=== PATIENT | male | born 1935 | race Caucasian/White ===

== ENCOUNTER 2017-11-18 15:32 | Inpatient (IN) | payer OTHER ==
[~2017-11-18] VITALS: Ht 182.9 cm; Wt 84.9 kg
[~2017-11-18 15:32] MED LIST: ADVIN25/60 INH; ASPEC81 PO; BCTROWC; CMBIN INH; CZR50 PO; DIGO0.122 PO; FRS/40 PO; FSM70 PO; GLC/500 PO; MAGN400T6 PO; METO50TA8 PO; MULT-506 PO; PLV75 PO; POTA-335 PO; RANI150T85 PO; SIMV40TA2 PO
[2017-11-18] MEDS ORDERED: METHYLPREDNISOLONE 125 MG VIAL IV STA (15:50)
--- NOTE | 2017-11-18 15:57 | EMERGENCY ROOM VISIT NOTE ---
History Report prepared by Linda: Juanita Sesay Under the Supervision of: Dr. Moses Coronado M.D. 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 He was recommended to come into the ED today by his PCP. The patient notes he wears oxygen at night. He currently has inhalers but was not using them until he started noticing the wheezing. He is accompanied by his and daughter. His states he has a cough and a fever of 102 last night. He denies nausea, SOB, or having a heart attack or stroke. His notes he had a heart bypass surgery. The patient is currently taking digoxin and Lasix and Plavix. 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 A total of ten systems were reviewed and were otherwise negative. 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 (5) HTN (hypertension) (6) Type II diabetes mellitus Surgical Problems: (1) Status post implantation of automatic cardioverter/defibrillator (AICD) Family History Lung disease Social History Smoking Status: Former Smoker Alcohol Use: none Marital Status: Current/Historical Medications Scheduled Aspirin (Aspir-81), 1 TAB PO DAILY Clopidogrel Bisulfate (Plavix), 75 MG PO DAILY Digoxin (Digoxin), 1 TAB PO 4XWK Digoxin (Digoxin), 2 TABS PO 3XWK Fluticasone Prop/Salmeterol (Advair Diskus 250/50 60 Dose), 1 PUFF INH BID Furosemide (Lasix), 80 MG PO 3XWK Furosemide (Lasix), 40 MG PO 4XWK Glimepiride (Glimepiride), 1 TAB PO DAILY Home O2 Therapy (Oxygen), 2 LITERS NA PRN Losartan Potassium (Cozaar), 100 MG PO DAILY Magnesium Oxide (Magnesium Oxide), 1 CAP PO DAILY Metformin HCl (Metformin HCl), 1 TAB PO BIDM Metoprolol Succ (Toprol Xl) (Toprol-Xl), 50 MG PO DAILY Multiple Vitamin (Multivitamin), 1 TAB PO DAILY Vucvljgq-Uddpvwroy-Ej Otic (Cortisporin Otic), 4 DROPS OT TID Potassium Chloride Microencaps (Potassium Chloride Er), 1 TAB PO DAILY Ranitidine Hcl (Zantac), 150 MG PO BID Simvastatin (Zocor), 40 MG PO QPM Scheduled PRN Albuterol Hfa (Ventolin Hfa), 2 PUFFS INH Q6H PRN for Wheezing Allergies Coded Allergies: FELECIA Inhibitors (Verified Allergy, Unknown, ? - TOLERATES LOSARTAN AT HOME , 11/18/17) Sulfa Antibiotics (Verified Allergy, Unknown, ., 11/18/17) Pseudoephedrine (Verified Adverse Reaction, Intermediate, TEMP ELEV, ) Prednisone (Unverified Adverse Reaction, Unknown, BLISTERS IN THROAT, 11/18) Physical Exam Vital Signs Date Time Temp Pulse Resp B/P (MAP) Pulse Ox O2 Delivery O2 Flow Rate FiO2 11/18/17 19:31 74 24 136/46 92 Nasal Cannula 3.0 11/18/17 18:09 94 Nasal Cannula 3.0 11/18/17 18:09 88 Room Air 11/18/17 17:31 144/48 11/18/17 17:30 75 23 11/18/17 17:01 130/51 11/18/17 17:00 70 22 11/18/17 16:30 70 22 141/54 98 Nebulizer 11/18/17 16:25 78 16 90 Room Air 11/18/17 16:23 70 11/18/17 16:14 70 22 131/65 92 Room Air 11/18/17 16:05 92 Room Air 11/18/17 16:05 92 Room Air 11/18/17 15:58 92 Room Air 11/18/17 15:37 37.0 74 24 118/68 93 Room Air Physical Exam GENERAL: Awake, alert, fatigued -appearing, in no distress HENT: Normocephalic, atraumatic. Oropharynx unremarkable. Dry mucus membranes. EYES: Normal conjunctiva. Sclera non-icteric. NECK: Supple. No nuchal rigidity. FROM. No JVD. RESPIRATORY: Diminished breath sounds at the bases with diffuse wheezes and rhonchi, no accessory muscle use CARDIAC: Regular rate, normal rhythm. Extremities warm and well perfused. Pulses equal. ABDOMEN: Soft, non-distended. No tenderness to palpation. No rebound or guarding. No masses. RECTAL: Deferred. MUSCULOSKELETAL: Chest examination reveals no tenderness. The back is symmetrical on inspection without obvious abnormality. There is no CVA tenderness to palpation. No joint edema. LOWER EXTREMITIES: Calves are equal size bilaterally and non-tender. No edema. No discoloration. No lower extremity edema/ NEURO: Normal sensorium. No sensory or motor deficits noted. SKIN: No rash or jaundice noted. Medical Decision & Procedures ER Provider Diagnostic Interpretation: Radiology results as stated below per my review and radiologist interpretation: CHEST ONE VIEW PORTABLE CLINICAL HISTORY: Evaluate Fever/Sepsis COMPARISON STUDY: Chest radiograph February 18, 2010. FINDINGS: A left subclavian biventricular pacer is in place. There are median sternotomy wires. There is moderate cardiomegaly. There is no evidence for pulmonary edema. No pneumothorax or pleural effusion is noted. There is no consolidation to suggest pneumonia. IMPRESSION: 1. Moderate cardiomegaly. 2. No acute cardiopulmonary findings. Electronically signed by: Keith Hopper M.D. 11/18/2017 4:43 PM Dictated Date/Time: 11/18/2017 4:42 PM Laboratory Results 11/18/17 16:05 Red Blood Count 4.25, Mean Corpuscular Volume 96.0, Mean Corpuscular Hemoglobin 32.9, Mean Corpuscular Hemoglobin Concent 34.3, Mean Platelet Volume 9.8, Neutrophils (%) (Auto) 70.1, Lymphocytes (%) (Auto) 14.6, Monocytes (%) (Auto) 13.8, Eosinophils (%) (Auto) 1.1, Basophils (%) (Auto) 0.2, Neutrophils # (Auto ) 3.93, Lymphocytes # (Auto) 0.82, Monocytes # (Auto) 0.77, Eosinophils # (Auto ) 0.06, Basophils # (Auto) 0.01 11/18/17 16:05 Test 11/18/17 16:04 11/18/17 16:05 11/18/17 16:14 Venous Blood pH 7.44 (7.36-7.41) Venous Blood Partial Pressure CO2 45 mmHg (38.0-50.0) Venous Blood Partial Pressure O2 35 mmHg Venous Blood HCO3 30 mmol/L Venous Blood Oxygen Saturation 65.5 % Venous Blood Base Excess 4.9 mEq/L White Blood Count 5.60 K/uL (4.8-10.8) Red Blood Count 4.25 M/uL (4.7-6.1) Hemoglobin 14.0 g/dL (14.0-18.0) Hematocrit 40.8 % (42-52) Mean Corpuscular Volume 96.0 fL (80-100) Mean Corpuscular Hemoglobin 32.9 pg (25-34) Mean Corpuscular Hemoglobin Concent 34.3 g/dl (32-36) Platelet Count 186 K/uL (130-400) Mean Platelet Volume 9.8 fL (7.4-10.4) Neutrophils (%) (Auto) 70.1 % Lymphocytes (%) (Auto) 14.6 % Monocytes (%) (Auto) 13.8 % Eosinophils (%) (Auto) 1.1 % Basophils (%) (Auto) 0.2 % Neutrophils # (Auto) 3.93 K/uL (1.4-6.5) Lymphocytes # (Auto) 0.82 K/uL (1.2-3.4) Monocytes # (Auto) 0.77 K/uL (0.11-0.59) Eosinophils # (Auto) 0.06 K/uL (0-0.5) Basophils # (Auto) 0.01 K/uL (0-0.2) RDW Standard Deviation 48.4 fL (36.4-46.3) RDW Coefficient of Variation 13.9 % (11.5-14.5) Immature Granulocyte % (Auto) 0.2 % Immature Granulocyte # (Auto) 0.01 K/uL (0.00-0.02) Prothrombin Time 11.1 SECONDS (9.0-12.0) Prothromb Time International Ratio 1.1 (0.9-1.1) Activated Partial Thromboplast Time 29.2 SECONDS (21.0-31.0) Partial Thromboplastin Ratio 1.1 Anion Gap 13.0 mmol/L (3-11) Est Creatinine Clear Calc Drug Dose 45.6 ml/min Estimated GFR () 50.4 Estimated GFR (Non- 43.5 BUN/Creatinine Ratio 18.1 (10-20) Calcium Level 9.4 mg/dl (8.5-10.1) Total Bilirubin 1.2 mg/dl (0.2-1) Direct Bilirubin 0.3 mg/dl (0-0.2) Aspartate Amino Transf (AST/SGOT) 22 U/L (15-37) Alanine Aminotransferase (ALT/SGPT) 20 U/L (12-78) Alkaline Phosphatase 53 U/L (45-117) Troponin I 0.017 ng/ml (0-0.045) Pro-B-Type Natriuretic Peptide 2163 pg/ml (0-1800) Total Protein 8.9 gm/dl (6.4-8.2) Albumin 3.4 gm/dl (3.4-5.0) Lipase 72 U/L (73-393) Digoxin Level 1.0 ng/ml (0.8-2.0) Influenza Type A (RT-PCR) Neg for Influ A (NEG) Influenza Type A Antigen Neg for Influ A (NEG) Influenza Type B Antigen Neg for Influ B (NEG) Influenza Type B (RT-PCR) Neg for Influ B (NEG) Laboratory results reviewed by me Medications Administered Medications (Trade) Dose Ordered Sig/Silverio Route Start Time Stop Time Status Last Admin Dose Admin Albuterol/ Ipratropium (Duoneb) 12 ml ONE ONCE INH 11/18/17 16:00 11/18/17 16:01 DC 11/18/17 16:24 12 ML Methylprednisolone Sodium Succinate (Solu-Medrol IV) 125 mg NOW STAT IV 11/18/17 15:50 11/18/17 15:54 DC 18 16:17 125 MG Azithromycin (Zithromax Tab) 500 mg NOW ONCE PO 11/18/17 19:00 11/18/17 19:01 DC 11/18/17 19:32 500 MG ECG Per My Interpretation Indication: SOB/dyspnea Rate (beats per minute): 72 Rhythm: other (V-paced) Findings: no acute ischemic change, no ectopy ED Course 1540: The patient was evaluated in room A11. A complete history and physical exam was performed. 1826: I reevaluated the patient at this time. He was resting comfortably. 1900: I discussed the patient with Tiffanie Joseph - She will evaluate the patient for further treatment. Medical Decision I reviewed the patient's past medical history, medications, and the nursing notes as described above. Differential diagnosis: Etiologies such as infections, reactive airway disease, pneumonia, pneumothorax , COPD, CHF, cardiac ischemia, pulmonary embolism, musculoskeletal, gastrointestinal, as well as others were entertained. The patient is 82-year-old gentleman with a past medical history of COPD, CHF, CAD on Plavix, Lasix, digoxin who presents emergency Department with worsening cough congestion and wheezing over the past several days seen by his PCP and referred to the ED for evaluation per hpi. Arrival the patient is in no acute distress, afebrile with stable vital signs. Chest diffuse rhonchi and wheezes with saturation at 93% on room air. No increased work of breathing. EKG with ventricular paced rhythm. She was given Solu-Medrol without for continuous neb with improvement in air movement however with subsequent desaturation to 88% on room air. While this may have possibly been due to V/Q mismatch from the patient's albuterol he continued to have a new oxygen requirement thus it is reasonable to admit the patient for COPD exacerbation. Patient was given azithromycin given his sputum production. Case was discussed with Tiffanie Joseph, who will admit the patient for further management. Medication Reconcilliation Current Medication List: was personally reviewed by me Blood Pressure Screening Patient's blood pressure: Normal blood pressure Blood pressure disposition: Did not require urgent referral Consults Time Called: 1847 Consulting Physician: Tiffanie oJseph Returned Call: [phone] She will evaluate the patient for further treatment. Impression Primary Impression: COPD exacerbation Scribe Attestation The scribe's documentation has been prepared under my direction and personally reviewed by me in its entirety. I confirm that the note above accurately reflects all work, treatment, procedures, and medical decision making performed by me. Departure Information Dispostion Being Evaluated By Hospitalist (Tiffanie Joseph) Referrals Shadi Cardenas M.D. (PCP) Patient Instructions My [facility]
[2017-11-18] MEDS ORDERED: ALBUT/IPRATROP 3MG/0.5MG NEB 3 ML VIAL INH ONE (16:00)
[2017-11-18 16:25] VITALS: PULSE 78; O2SAT 90
[2017-11-18 16:31] LABS: HEMATOCRIT 40.8 % (42-52); MEAN CORPUSCULAR HEMOGLOBIN 32.9 pg (25-34); MEAN CORPUSCULAR HGB CONC 34.3 g/dl (32-36); MEAN PLATELET VOLUME 9.8 fL (7.4-10.4); PLATELET COUNT 186 K/uL (130-400); RED CELL DISTRIBUTION WIDTH CV 13.9 % (11.5-14.5); RED CELL DISTRIBUTION WIDTH SD 48.4 fL (36.4-46.3)
--- NOTE | 2017-11-18 16:44 | DIAGNOSTIC IMAGING REPORT ---
CHEST ONE VIEW PORTABLE CLINICAL HISTORY: Evaluate Fever/Sepsis COMPARISON STUDY: Chest radiograph February 18, 2010. FINDINGS: A left subclavian biventricular pacer is in place. There are median sternotomy wires. There is moderate cardiomegaly. There is no evidence for pulmonary edema. No pneumothorax or pleural effusion is noted. There is no consolidation to suggest pneumonia. IMPRESSION: 1. Moderate cardiomegaly. 2. No acute cardiopulmonary findings. Electronically signed by: Keith Hopper M.D. 11/18/2017 4:43 PM Dictated Date/Time: 11/18/2017 4:42 PM
[2017-11-18 16:45] LABS: ALBUMIN 3.4 gm/dl (3.4-5.0); CALCIUM 9.4 mg/dl (8.5-10.1); CREATININE 1.47 mg/dl (0.60-1.40); POTASSIUM 3.6 mmol/L (3.5-5.1)
[2017-11-18 16:50] LABS: BASO % 0.2 %; BASO ABS # 0.01 K/uL (0-0.2); EOS % 1.1 %; EOS ABS # 0.06 K/uL (0-0.5); IG# 0.01 K/uL (0.00-0.02); LYMPH % 14.6 %; LYMPH ABS # 0.82 K/uL (1.2-3.4); MONO % 13.8 %; MONO ABS # 0.77 K/uL (0.11-0.59); NEUT % 70.1 %; NEUT ABS # 3.93 K/uL (1.4-6.5); TOTAL PROTEIN 8.9 gm/dl (6.4-8.2)
[2017-11-18 16:50] LABS: INFLUENZA B ANTIGEN Neg for Influ B (NEG)
[2017-11-18] MEDS ORDERED: ADVIN25/60 INH (18:32)
[2017-11-18] MEDS ORDERED: METO50TA8 PO (18:32)
[2017-11-18] MEDS ORDERED: LNX125 PO ×2 (18:32)
[2017-11-18] MEDS ORDERED: CLOP1TAB5 PO (18:32)
[2017-11-18] MEDS ORDERED: OXGN (18:32)
[2017-11-18] MEDS ORDERED: POTA20TA13 PO (18:32)
[2017-11-18] MEDS ORDERED: RANI150T3 PO (18:32)
[2017-11-18] MEDS ORDERED: SIMV40TA4 PO (18:32)
[2017-11-18] MEDS ORDERED: GLC500 PO (18:32)
[2017-11-18] MEDS ORDERED: FURO40TA3 PO ×2 (18:32)
[2017-11-18] MEDS ORDERED: GLIM2TAB2 PO (18:32)
[2017-11-18] MEDS ORDERED: VNTHFA/IN INH (18:32)
[2017-11-18] MEDS ORDERED: MAGN400C2 PO (18:32)
[2017-11-18] MEDS ORDERED: LOSA100T65 PO (18:32)
[2017-11-18] MEDS ORDERED: ASPI-232 PO (18:32)
[2017-11-18] MEDS ORDERED: MULTTAB58 PO (18:32)
[2017-11-18] MEDS ORDERED: NEOM1SUS21 OT (18:39)
[2017-11-18] MEDS ORDERED: METF850T9 PO (18:39)
[2017-11-18] MEDS ORDERED: AZITHROMYCIN 250 MG TAB PO ONE (19:00)
--- NOTE | 2017-11-18 19:33 | History and Physical ---
History & Physical Date & Time of Service: Nov 18, 2017 at 19:33 Chief Complaint: Respiratory Primary Care Physician: Shadi Cardenas M.D. History of Present Illness Source: patient This is a 82 yo M with complicated past medical hx of CAD , valvular heart disease , HTN , Hyperlipidemia , COPD, HTN , Type to DM , presented to ER with symptom of hypoxia, COLIN pt mentions that for the past 2-3 days he has been feeling very weak and fatigued , stayed in bed most of the time -which is unusual for him , had very poor appetite , low grade fever, nasal congestion cough with yellow productive sputum , denies of any symptom of chest heaviness , but to noted to have increased COLIN , + wheeze pt used his Albuterol INH -with minimum improvement no complain of Orthopnea or PND , no lower extremity swelling or increased wt gain today [facility] -was found to be hypoxic in RA , sent to ER for evaluation in ER pt was hypoxic in RA 88 % , Sp02 improved after 3 L NC 02 supplement Cxray shows no infiltrate or pleural effusion Past Medical/Surgical History Medical Problems: (1) A-fib Status: Chronic (2) Asthma Status: Chronic (3) Cardiomyopathy Status: Chronic (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 Status: Chronic (5) HTN (hypertension) Status: Chronic (6) Type II diabetes mellitus Status: Chronic Surgical Problems: (1) Status post implantation of automatic cardioverter/defibrillator (AICD) Status: Chronic Family History Lung disease Social History Smoking Status: Former Smoker Marital Status: Housing status: lives with family Immunizations History of Influenza Vaccine: Yes Influenza Vaccine Date: Aug 21, 2009 History of Tetanus Vaccine?: Yes Tetanus Immunization Date: Aug 21, 2009 History of Pneumococcal: Yes Pneumococcal Date: Aug 21, 2009 History of Hepatitis B Vaccine: Yes Hepatitis Immunization Date: February 18, 2006 Allergies Coded Allergies: FELECIA Inhibitors (Verified Allergy, Unknown, ? - TOLERATES LOSARTAN AT HOME , 11/18/17) Sulfa Antibiotics (Verified Allergy, Unknown, ., 11/18/17) Pseudoephedrine (Verified Adverse Reaction, Intermediate, TEMP ELEV, ) Prednisone (Unverified Adverse Reaction, Unknown, BLISTERS IN THROAT, 11/18) Home Medications Scheduled Aspirin (Aspir-81), 1 TAB PO DAILY Clopidogrel Bisulfate (Plavix), 75 MG PO DAILY Digoxin (Digoxin), 1 TAB PO 4XWK Digoxin (Digoxin), 2 TABS PO 3XWK Fluticasone Prop/Salmeterol (Advair Diskus 250/50 60 Dose), 1 PUFF INH BID Furosemide (Lasix), 80 MG PO 3XWK Furosemide (Lasix), 40 MG PO 4XWK Glimepiride (Glimepiride), 1 TAB PO DAILY Home O2 Therapy (Oxygen), 2 LITERS NA PRN Losartan Potassium (Cozaar), 100 MG PO DAILY Magnesium Oxide (Magnesium Oxide), 1 CAP PO DAILY Metformin HCl (Metformin HCl), 1 TAB PO BIDM Metoprolol Succ (Toprol Xl) (Toprol-Xl), 50 MG PO DAILY Multiple Vitamin (Multivitamin), 1 TAB PO DAILY Ukiyuobp-Hluhxluit-Hf Otic (Cortisporin Otic), 4 DROPS OT TID Potassium Chloride Microencaps (Potassium Chloride Er), 1 TAB PO DAILY Ranitidine Hcl (Zantac), 150 MG PO BID Simvastatin (Zocor), 40 MG PO QPM Scheduled PRN Albuterol Hfa (Ventolin Hfa), 2 PUFFS INH Q6H PRN for Wheezing Review of Systems Constitutional: + fever (low grade ), + chills, + sweats, + weakness, + fatigue ENT: + sore throat Respiratory: + cough, + sputum, + wheezing, + shortness of breath, + dyspnea on exertion Cardiovascular: No chest pain, No orthopnea, No PND, No edema, No claudication , No palpitations, No problem reported Abdomen: No pain, No nausea, No vomiting, No diarrhea, No constipation, No GI bleeding, No problem reported Musculoskeletal: No joint pain, No muscle pain, No swelling, No calf pain, No problem reported Genitourinary - Male: No hematuria, No dysuria, No urinary frequency, No urinary urgency, No urinary hesitancy, No urinary retention, No urinary incontinence, No penile discharge, No lesions, No impotence, No problem reported Neurologic: + weakness, + vertigo Physical Exam Vital Signs Date Time Temp Pulse Resp B/P (MAP) Pulse Ox O2 Delivery O2 Flow Rate FiO2 11/18/17 19:31 74 24 136/46 92 Nasal Cannula 3.0 11/18/17 18:09 94 Nasal Cannula 3.0 11/18/17 18:09 88 Room Air 11/18/17 17:31 144/48 11/18/17 17:30 75 23 11/18/17 17:01 130/51 11/18/17 17:00 70 22 11/18/17 16:30 70 22 141/54 98 Nebulizer 11/18/17 16:25 78 16 90 Room Air 11/18/17 16:23 70 11/18/17 16:14 70 22 131/65 92 Room Air 11/18/17 16:05 92 Room Air 11/18/17 16:05 92 Room Air 11/18/17 15:58 92 Room Air 11/18/17 15:37 37.0 74 24 118/68 93 Room Air General Appearance: no apparent distress Head: normocephalic, atraumatic Eyes: normal inspection, PERRL, EOMI, sclerae normal ENT: normal ENT inspection Neck: thyroid normal, no JVD, no carotid bruits, trachea midline Respiratory/Chest: no respiratory distress, no accessory muscle use, + decreased breath sounds Cardiovascular: regular rate, rhythm, no edema, no JVD, normal peripheral pulses Abdomen/GI: normal bowel sounds, non tender, soft Extremities/Musculoskelatal: normal inspection, normal capillary refill, no pedal edema Neurologic/Psych: no motor/sensory deficits, alert, normal mood/affect Skin: normal color, warm/dry, no rash Lymphatic: no adenopathy Diagnostics Laboratory Results Results Past 24 Hours Test 11/18/17 16:04 11/18/17 16:05 11/18/17 16:14 Range/Units Venous Blood pH 7.44 7.36-7.41 Venous Blood Partial Pressure CO2 45 38.0-50.0 mmHg Venous Blood Partial Pressure O2 35 mmHg Venous Blood HCO3 30 mmol/L Venous Blood Oxygen Saturation 65.5 % Venous Blood Base Excess 4.9 mEq/L White Blood Count 5.60 4.8-10.8 K/uL Red Blood Count 4.25 4.7-6.1 M/uL Hemoglobin 14.0 14.0-18.0 g/dL Hematocrit 40.8 42-52 % Mean Corpuscular Volume 96.0 80-100 fL Mean Corpuscular Hemoglobin 32.9 25-34 pg Mean Corpuscular Hemoglobin Concent 34.3 32-36 g/dl Platelet Count 186 130-400 K/uL Mean Platelet Volume 9.8 7.4-10.4 fL Neutrophils (%) (Auto) 70.1 % Lymphocytes (%) (Auto) 14.6 % Monocytes (%) (Auto) 13.8 % Eosinophils (%) (Auto) 1.1 % Basophils (%) (Auto) 0.2 % Neutrophils # (Auto) 3.93 1.4-6.5 K/uL Lymphocytes # (Auto) 0.82 1.2-3.4 K/uL Monocytes # (Auto) 0.77 0.11-0.59 K/uL Eosinophils # (Auto) 0.06 0-0.5 K/uL Basophils # (Auto) 0.01 0-0.2 K/uL RDW Standard Deviation 48.4 36.4-46.3 fL RDW Coefficient of Variation 13.9 11.5-14.5 % Immature Granulocyte % (Auto) 0.2 % Immature Granulocyte # (Auto) 0.01 0.00-0.02 K/uL Sodium Level 139 136-145 mmol/L Potassium Level 3.6 3.5-5.1 mmol/L Chloride Level 97 98-107 mmol/L Carbon Dioxide Level 29 21-32 mmol/L Anion Gap 13.0 3-11 mmol/L Blood Urea Nitrogen 27 7-18 mg/dl Creatinine 1.47 0.60-1.40 mg/dl Est Creatinine Clear Calc Drug Dose 45.6 ml/min Estimated GFR () 50.4 Estimated GFR (Non- 43.5 BUN/Creatinine Ratio 18.1 10-20 Random Glucose 135 70-99 mg/dl Calcium Level 9.4 8.5-10.1 mg/dl Total Bilirubin 1.2 0.2-1 mg/dl Direct Bilirubin 0.3 0-0.2 mg/dl Aspartate Amino Transf (AST/SGOT) 22 15-37 U/L Alanine Aminotransferase (ALT/SGPT) 20 12-78 U/L Alkaline Phosphatase 53 45-117 U/L Troponin I 0.017 0-0.045 ng/ml Pro-B-Type Natriuretic Peptide 2163 0-1800 pg/ml Total Protein 8.9 6.4-8.2 gm/dl Albumin 3.4 3.4-5.0 gm/dl Lipase 72 73-393 U/L Digoxin Level 1.0 0.8-2.0 ng/ml Influenza Type A Antigen Neg for Influ A NEG Influenza Type B Antigen Neg for Influ B NEG Diagnostic Radiology CHEST ONE VIEW PORTABLE CLINICAL HISTORY: Evaluate Fever/Sepsis COMPARISON STUDY: Chest radiograph February 18, 2010. FINDINGS: A left subclavian biventricular pacer is in place. There are median sternotomy wires. There is moderate cardiomegaly. There is no evidence for pulmonary edema. No pneumothorax or pleural effusion is noted. There is no consolidation to suggest pneumonia. IMPRESSION: 1. Moderate cardiomegaly. 2. No acute cardiopulmonary findings. Impression Assessment and Plan ACUTE HYPOXEMIC RESPIRATORY FAILURE : due to COPD exacerbation , presented with + wheeze , COLIN, productive cough , flu like symptom for 2-3 days Influenza Ag and PCR titer negative CXray no evidence of active disease symptom improved with supplemental 02 and Neb tx cont IV Solu Medrol , will need Medrol Dose taper when clinically improved ( pt is allergic to PO Prednisone ) Duo Neb scheduled and PRN empiric abx with PO Doxycycline ordered for sputum for culture and sensitivity monitor for clinical improvement may need Pulm evaluation if no significant clinical improvement with above measures pt uses 2 L 02 at night presented with with marked hypoxia with increased 02 requirement 3 L will possibly 2 step exercise to asses home 02 requirement once pulmonary symptoms has resolved FLU LIKE SYMPTOM : possible due to Viral etiology Influenza Ag titer and PCR negative cont supportive care COPD EXACERBATION : management as outlined above ACUTE KIDNEY INJURY ON CKD STAGE 3 : due to poor PO intake /has not been eating or drinking well past 3 days for lack of appetite /not feeling well Losartan /Lasix on hold , resume when Cr improved to baseline avoid IV fluid as pt has baseline severe ischemic cardiomyopathy repeat BMP in AM avoid NSAID's and Contrast studies HTN : BP stable cont home medications of toprol XL 50 mg daily ARB and Lasix on hold for Acute kidney injury HYPERLIPIDEMIA : cont Zocor 40 mg daily PAROXYSMAL AFIB /NOT ON ANTICOAGULATION cont beta mike and Dig ordered for Dig level HX OF CAD : S/p CABG 1999 with KAUR -LAD , SVG-OM , SVG-diagonal denies of any chest pain or discomfort cont cardiac meds -Aspirin , Plavix beta mike , statin ARB on hold for DAPHNE ordered for resting ECHO cardiology eval requested as pt reports of increased COLIN CHRONIC CHF WITH SYSTOLIC DYSFUNCTION /SEVERE ISCHEMIC CARDIOMYOPATHY : EF 30 -25 % according to last ECHO no evidence of vol overload ARB and Lasix on hold for DAPHNE ;resume when Cr improved to baseline repeat ECHO ordered s/p AICD placement reports of increased fatigue , weakness then usual with COLIN AICD interrogation ordered to R/O arrhythmia TYPE 2 DM hold oral meds -Glimepiride and Metformin check HbA1c ordered for insulin [facility] pharmacy glycemic consult requested to adjust insulin due to steroid induced hyperglycemia FULL CODE -d/w pt DVT PROPHYLAXIS : moderate risk Sub q Heparin DISPOSITION : expected to return home when medically stable Pt/OT eval prior to discharge Medicine follow up with Dr Olmstead Level of Care Med/Surg Resuscitation Status FULL RESUSCITATION VTE Prophylaxis Given or contraindicated: Unfractionated heparin SQ Additional Copies To Shadi Cardenas M.D.
[2017-11-18 19:50] LABS: INFLUENZA A PCR Neg for Influ A (NEG); INFLUENZA B PCR Neg for Influ B (NEG)
[2017-11-18] MEDS ORDERED: POLYETHYLENE (MIRALAX) 17 GM PACK PO PRN (20:30)
[2017-11-18] MEDS ORDERED: ALUMINUM/MAGNESIUM/SIMETH (MAALOX MAX) 30 ML UDC PO PRN (20:30)
[2017-11-18] MEDS ORDERED: ACETAMINOPHEN 325 MG TAB PO PRN (20:30)
[2017-11-18] MEDS ORDERED: MAGNESIUM HYDROXIDE SUSP 30 ML UDC PO PRN (20:30)
[2017-11-18] MEDS ORDERED: NITROGLYCERIN 0.4 MG SL PER TAB CHARGE SL PRN (20:30)
[2017-11-18] MEDS ORDERED: ONDANSETRON INJ 2 MG/ML 2 ML VIAL IV PRN (20:30)
[2017-11-18] MEDS ORDERED: ZOLPIDEM TARTRATE 5 MG TAB PO PRN (20:30)
[2017-11-18 21:06] VITALS: BP 132/62; PULSE 69; TEMP 36.5; O2SAT 95
[2017-11-18 21:28] VITALS: BP 130/59; PULSE 72; TEMP 37.4; O2SAT 95; Ht 182.9 cm; Wt 84.9 kg
[2017-11-18 21:43] LABS: INR 1.1 (0.9-1.1); PTT PATIENT 29.2 SECONDS (21.0-31.0)
[2017-11-18] MEDS ORDERED: ALBUT/IPRATROP 3MG/0.5MG NEB 3 ML VIAL INH PRN (22:00)
[2017-11-18] MEDS: METHYLPREDNISOLONE IV 40 MG in SYRINGE 0 ML IV SCH (22:36)
[2017-11-18] MEDS: HEPARIN SOD 5000 UNIT/0.5 ML CARP SQ SCH (22:42)
[2017-11-18] MEDS ORDERED: GLUCOSE 10 TABS/TUBE PO PRN (23:15)
[2017-11-18] MEDS ORDERED: GLUCOSE 40% GEL 15 GM TUBE PO PRN (23:15)
[2017-11-18] MEDS ORDERED: GLUCAGON FOR INJ 1 MG VIAL SQ PRN (23:15)
[2017-11-18] MEDS ORDERED: ALBUTEROL HFA 8 GM INHALER INH PRN (23:15)
[2017-11-18] MEDS ORDERED: DEXTROSE 50% 50 ML SYR IV PRN (23:15)
[2017-11-18] MEDS ORDERED: PHARMACY GLYCEMIC MGMT CONSULT PRN (23:30)
[2017-11-19] VITALS (13 sets, daily range): BP systolic 114–164; BP diastolic 56–70; PULSE 63–94; TEMP 36.4–37; O2SAT 89–99
[2017-11-19] MEDS: INSULIN ASPART 100 UNITS/ML 3 ML PEN SC SCH ×6 (00:55→21:29)
[2017-11-19 05:47] LABS: HEMATOCRIT 35.8 % (42-52); HEMOGLOBIN 12.2 g/dL (14.0-18.0); MEAN CELL VOLUME 93.7 fL (80-100); MEAN CORPUSCULAR HEMOGLOBIN 31.9 pg (25-34); MEAN CORPUSCULAR HGB CONC 34.1 g/dl (32-36); MEAN PLATELET VOLUME 9.5 fL (7.4-10.4); PLATELET COUNT 172 K/uL (130-400); RED CELL DISTRIBUTION WIDTH CV 13.8 % (11.5-14.5); RED CELL DISTRIBUTION WIDTH SD 47.5 fL (36.4-46.3); WHITE BLOOD COUNT 3.81 K/uL (4.8-10.8)
[2017-11-19] MEDS: HEPARIN SOD 5000 UNIT/0.5 ML CARP SQ SCH ×3 (06:07→21:30)
[2017-11-19] MEDS: METHYLPREDNISOLONE IV 40 MG in SYRINGE 0 ML IV SCH ×3 (06:11→21:30)
[2017-11-19 06:19] LABS: CALCIUM 8.8 mg/dl (8.5-10.1); CREATININE 1.36 mg/dl (0.60-1.40); POTASSIUM 3.7 mmol/L (3.5-5.1)
[2017-11-19] MEDS: ALBUT/IPRATROP 3MG/0.5MG NEB 3 ML VIAL INH SCH ×4 (06:49→18:56)
[2017-11-19] MEDS: FLUTICASONE/SALMETEROL 250/50 (ADVAIR) 14 PUFF/1 INHALER INH SCH ×2 (08:08→21:27)
[2017-11-19] MEDS: NEOMYCIN/POLYMYX/HYDROCORT OT SUSP 10 ML BTL OT SCH ×3 (08:09→21:00)
[2017-11-19] MEDS: ASPIRIN 81 MG ECTAB PO SCH (08:10)
[2017-11-19] MEDS: POTASSIUM CHLORIDE 20 MEQ TABCR PO SCH (08:10)
[2017-11-19] MEDS: METOPROLOL SUCC 50MG EXT REL TAB PO SCH (08:11)
[2017-11-19] MEDS: CLOPIDOGREL BISULFATE 75 MG TAB PO SCH (08:11)
[2017-11-19] MEDS: DOXYCYCLINE HYCLATE 100 MG CAP PO SCH ×2 (08:11→21:27)
[2017-11-19] MEDS: MULTIVITAMIN TAB PO SCH (08:11)
[2017-11-19] MEDS: RANITIDINE HCL 150 MG TAB PO SCH ×2 (08:11→21:27)
[2017-11-19] MEDS ORDERED: LOSARTAN POTASSIUM 50 MG TAB PO SCH (09:00)
[2017-11-19] MEDS ORDERED: FUROSEMIDE 40 MG TAB PO SCH (09:00)
[2017-11-19] MEDS ORDERED: INSULIN GLARGINE SOLOSTAR 100 UNITS/ML 3 ML PEN SC ONE (10:00)
[2017-11-19] MEDS ORDERED: OPTIRAY 320 IV PRN (11:30)
--- NOTE | 2017-11-19 12:42 | ECHOCARDIOGRAM REPORT ---
*NOTICE TO RECEIVING CONSTITUTION PARTY AGENCY This information is strictly Confidential and protected under [place] law. [place] law prohibits you from making any further disclosure of this information unless further disclosure is expressly permitted by the written consent of the person to whom it pertains or is authorized by law. A general authorization for the release of medical or other information is not sufficient for this purpose. Hospital accepts no responsibility if the information is made available to any other person, INCLUDING THE PATIENT. Interpretation Summary * Name: MARTA ALLEN Study Date: 11/19/2017 09:54 AM BP: 143/70 mmHg * Patient Location: [facility] [place] HR: 72 * : 1935 (M/d/yyyy) Gender: Male Height: 72 in * Age: 82 yrs Ethnicity: [place] Weight: 191 lb * Performed By: Tania Calderon RDCS * * Reason For Study: SOB * BSA: 2.1 m2 * -- Conclusions -- * The left ventricle is normal in size. * There is moderate concentric left ventricular hypertrophy. * Apical wall motion abnormality may reflect pacemaker activation. * No regional wall motion abnormalities noted. * Ejection Fraction = 55-60%. * The right ventricle is mildly dilated. * The right ventricular systolic function is normal. * Aortic valve sclerosis moderate, without significant aortic valvular stenosis. * Mild to moderate aortic regurgitation. * There is mild mitral regurgitation. * There is mild tricuspid regurgitation. * Moderate aortic root dilatation. Procedure Details * A complete two-dimensional transthoracic echocardiogram was performed (2D, M-mode, Doppler and color flow Doppler). Left Ventricle * The left ventricle is normal in size. * There is moderate concentric left ventricular hypertrophy. * Ejection Fraction = 55-60%. * Apical wall motion abnormality may reflect pacemaker activation. * No regional wall motion abnormalities noted. Right Ventricle * The right ventricle is mildly dilated. * There is mild right ventricular hypertrophy. * The right ventricular systolic function is normal. Atria * The left atrium is mildly dilated. * The right atrium is moderately dilated. Mitral Valve * The mitral valve anatomy is normal. * There is mild mitral regurgitation. Tricuspid Valve * The tricuspid valve anatomy is normal. * There is mild tricuspid regurgitation. Aortic Valve * The aortic valve is trileaflet. * Aortic valve sclerosis moderate, without significant aortic valvular stenosis. * Mild to moderate aortic regurgitation. Great Vessels * Moderate aortic root dilatation. Pericardium/Pleural * There is no pericardial effusion. Great Vessels * Normal inferior vena cava diameter and respiratory variation suggests normal central venous pressure. MMode 2D Measurements and Calculations IVSd 1.3 cm IVSs 1.9 cm LVIDd 5.6 cm LVIDs 3.9 cm LVPWd 1.7 cm LVPWs 2.0 cm IVS/LVPW 0.76 FS 30.0 % EDV(Teich) 151.8 ml ESV(Teich) 65.8 ml EF(Teich) 56.6 % EDV(cubed) 172.8 ml ESV(cubed) 59.2 ml EF(cubed) 65.7 % % IVS thick 48.8 % % LVPW thick 17.0 % LV mass(C)d 382.0 grams LV mass(C)dI 182.8 grams/m\S\2 LV mass(C)s 350.4 grams LV mass(C)sI 167.7 grams/m\S\2 SV(Teich) 86.0 ml SI(Teich) 41.1 ml/m\S\2 SV(cubed) 113.6 ml SI(cubed) 54.4 ml/m\S\2 Ao root diam 4.3 cm Ao root area 14.7 cm\S\2 LA dimension 5.2 cm LA/Ao 1.2 LVAd ap4 36.2 cm\S\2 LVLd ap4 8.8 cm EDV(MOD-sp4) 125.4 ml EDV(sp4-el) 125.4 ml LVAs ap4 22.9 cm\S\2 LVLs ap4 7.6 cm ESV(MOD-sp4) 62.5 ml ESV(sp4-el) 59.0 ml EF(MOD-sp4) 50.1 % EF(sp4-el) 53.0 % LVAd ap2 31.1 cm\S\2 LVLd ap2 8.4 cm EDV(MOD-sp2) 97.9 ml EDV(sp2-el) 98.0 ml LVAs ap2 19.4 cm\S\2 LVLs ap2 7.3 cm ESV(MOD-sp2) 43.1 ml ESV(sp2-el) 43.5 ml EF(MOD-sp2) 55.9 % EF(sp2-el) 55.6 % LVLd %diff -5.79 % EDV(MOD-bp) 112.8 ml LVLs %diff -2.95 % ESV(MOD-bp) 52.2 ml EF(MOD-bp) 53.7 % SV(MOD-sp4) 62.8 ml SI(MOD-sp4) 30.1 ml/m\S\2 SV(MOD-sp2) 54.8 ml SI(MOD-sp2) 26.2 ml/m\S\2 SV(MOD-bp) 60.6 ml SI(MOD-bp) 29.0 ml/m\S\2 SV(sp4-el) 66.5 ml SI(sp4-el) 31.8 ml/m\S\2 SV(sp2-el) 54.5 ml SI(sp2-el) 26.1 ml/m\S\2 Doppler Measurements and Calculations MV E max natalie 135.3 cm/sec MV dec time 0.21 sec Ao V2 max 174.4 cm/sec Ao max PG 12.2 mmHg Ao max PG (full) 7.0 mmHg AI max natalie 513.3 cm/sec AI max PG 105.4 mmHg AI dec slope 264.8 cm/sec\S\2 AI P1/2t 567.8 msec LV V1 max PG 5.1 mmHg LV V1 max 113.1 cm/sec
--- NOTE | 2017-11-19 12:53 | DIAGNOSTIC IMAGING REPORT ---
CT ANGIOGRAPHY OF THE CHEST, PULMONARY EMBOLUS PROTOCOL CLINICAL HISTORY: Hypoxia, chest pain and elevated d-dimer. COMPARISON STUDY: Chest radiograph November 18, 2017. TECHNIQUE: Following IV administration of 89 mL of Optiray-320, helical axial images of the chest were obtained utilizing the pulmonary embolus protocol. Maximal intensity projections and sagittal and coronal reformats were viewed on an independent 3D workstation. IV contrast was administered without complication. A dose lowering technique was utilized adhering to the principles of ALARA. CT DOSE: 580.13 mGy.cm FINDINGS: No central or lobar pulmonary emboli are identified. The segmental and subsegmental pulmonary arteries are suboptimally assessed due to respiratory motion. The heart is moderately enlarged. There is extensive coronary artery calcification. There is no pericardial effusion. Note is made of a left biventricular pacer/AICD. No enlarged thoracic lymph nodes are present. No pneumothorax or pleural effusion is noted. Note is made of a 6 m left lower lobe nodule on image 44 of 134. There are mild ill-defined nodular opacities within the left lower lobe. There is mild bronchial wall thickening. There is no consolidation. Central airways are patent. Lungs are suboptimally assessed due to respiratory motion. No suspicious osseous lesions are present. There is an old L1 compression fracture. Note is made of a 4.3 cm right hepatic lobe cyst. IMPRESSION: 1. No pulmonary emboli identified although segmental and subsegmental pulmonary arteries suboptimally assessed due to respiratory motion. 2. Moderate cardiomegaly and extensive coronary artery calcification. 3. 6 mm left lower lobe nodule. This is likely benign however a follow-up chest CT in 6 months to ensure resolution is recommended. 4. A few small nodular ill-defined left lower lobe airspace opacities which may reflect a mild infectious process such as bronchiolitis. Electronically signed by: Keith Hopper M.D. 11/19/2017 12:51 PM Dictated Date/Time: 11/19/2017 12:42 PM
--- NOTE | 2017-11-19 14:00 | Progress Note ---
Medicine Progress Note Date & Time of Visit: Nov 19, 2017 at 13:28. Subjective Pt was seen and examined Sitting in bed with no distress Pt said that he feels much better today He said that his coughing less He said that his breathing better Denies any chest pain, palpitation and SOB Objective Last 8 Hrs Date Time Temp Pulse Resp B/P (MAP) Pulse Ox O2 Delivery O2 Flow Rate FiO2 11/19/17 12:00 92 Room Air 11/19/17 11:43 36.6 71 16 144/66 (92) 92 Room Air 11/19/17 11:25 81 16 90 Room Air 11/19/17 08:00 89 Room Air 11/19/17 07:32 36.8 72 16 143/70 (94) 99 Nasal Cannula 2.0 11/19/17 06:49 72 16 92 Nasal Cannula 3.0 Physical Exam: General- No acute distress Head- atraumatic Eyes- PERRL, EOMI ENT- oropharynx clear Neck- supple, no JVD Lungs- Mild wheezing on expiratory Heart- regular rhythm Abdomen- normal bowel sounds, soft Extremities- no calf tenderness Neuro- alert, oriented x 3; PERRL, EOMI Skin- warm & dry Laboratory Results: Last 24 Hours Test 11/18/17 16:04 11/18/17 16:05 11/18/17 16:14 11/18/17 21:50 Venous Blood pH 7.44 Venous Blood Partial Pressure CO2 45 mmHg Venous Blood Partial Pressure O2 35 mmHg Venous Blood HCO3 30 mmol/L Venous Blood Oxygen Saturation 65.5 % Venous Blood Base Excess 4.9 mEq/L White Blood Count 5.60 K/uL Red Blood Count 4.25 M/uL Hemoglobin 14.0 g/dL Hematocrit 40.8 % Mean Corpuscular Volume 96.0 fL Mean Corpuscular Hemoglobin 32.9 pg Mean Corpuscular Hemoglobin Concent 34.3 g/dl Platelet Count 186 K/uL Mean Platelet Volume 9.8 fL Neutrophils (%) (Auto) 70.1 % Lymphocytes (%) (Auto) 14.6 % Monocytes (%) (Auto) 13.8 % Eosinophils (%) (Auto) 1.1 % Basophils (%) (Auto) 0.2 % Neutrophils # (Auto) 3.93 K/uL Lymphocytes # (Auto) 0.82 K/uL Monocytes # (Auto) 0.77 K/uL Eosinophils # (Auto) 0.06 K/uL Basophils # (Auto) 0.01 K/uL RDW Standard Deviation 48.4 fL RDW Coefficient of Variation 13.9 % Immature Granulocyte % (Auto) 0.2 % Immature Granulocyte # (Auto) 0.01 K/uL Prothrombin Time 11.1 SECONDS Prothromb Time International Ratio 1.1 Activated Partial Thromboplast Time 29.2 SECONDS Partial Thromboplastin Ratio 1.1 Sodium Level 139 mmol/L Potassium Level 3.6 mmol/L Chloride Level 97 mmol/L Carbon Dioxide Level 29 mmol/L Anion Gap 13.0 mmol/L Blood Urea Nitrogen 27 mg/dl Creatinine 1.47 mg/dl Est Creatinine Clear Calc Drug Dose 45.6 ml/min Estimated GFR () 50.4 Estimated GFR (Non- 43.5 BUN/Creatinine Ratio 18.1 Random Glucose 135 mg/dl Calcium Level 9.4 mg/dl Total Bilirubin 1.2 mg/dl Direct Bilirubin 0.3 mg/dl Aspartate Amino Transf (AST/SGOT) 22 U/L Alanine Aminotransferase (ALT/SGPT) 20 U/L Alkaline Phosphatase 53 U/L Troponin I 0.017 ng/ml Pro-B-Type Natriuretic Peptide 2163 pg/ml Total Protein 8.9 gm/dl Albumin 3.4 gm/dl Lipase 72 U/L Digoxin Level 1.0 ng/ml Influenza Type A (RT-PCR) Neg for Influ A Influenza Type A Antigen Neg for Influ A Influenza Type B Antigen Neg for Influ B Influenza Type B (RT-PCR) Neg for Influ B Bedside Glucose 241 mg/dl Test 11/19/17 00:46 11/19/17 03:51 11/19/17 05:22 11/19/17 06:28 Bedside Glucose 304 mg/dl 269 mg/dl 236 mg/dl White Blood Count 3.81 K/uL Red Blood Count 3.82 M/uL Hemoglobin 12.2 g/dL Hematocrit 35.8 % Mean Corpuscular Volume 93.7 fL Mean Corpuscular Hemoglobin 31.9 pg Mean Corpuscular Hemoglobin Concent 34.1 g/dl RDW Standard Deviation 47.5 fL RDW Coefficient of Variation 13.8 % Platelet Count 172 K/uL Mean Platelet Volume 9.5 fL Sodium Level 137 mmol/L Potassium Level 3.7 mmol/L Chloride Level 99 mmol/L Carbon Dioxide Level 27 mmol/L Anion Gap 11.0 mmol/L Blood Urea Nitrogen 36 mg/dl Creatinine 1.36 mg/dl Est Creatinine Clear Calc Drug Dose 45.2 ml/min Estimated GFR () 55.4 Estimated GFR (Non- 47.8 BUN/Creatinine Ratio 26.5 Random Glucose 252 mg/dl Calcium Level 8.8 mg/dl Magnesium Level 2.4 mg/dl Troponin I < 0.015 ng/ml Thyroid Stimulating Hormone (TSH) 0.136 uIu/ml Test 11/19/17 07:40 11/19/17 11:10 D-Dimer 710 ug/L FEU Bedside Glucose 218 mg/dl Assessment & Plan ACUTE HYPOXEMIC RESPIRATORY FAILURE Present with flu like symptoms Possible related to COPD exacerbation CXR on admission showed no infiltrate Influenza Ag and PCR titer negative Continue oxygen supplement Elevated D dimer CT chest with PE done and showed no evidence for PE On Solumedrol 40 mg q8h, will wean solumedrol Duo Neb scheduled and PRN Continue PO Doxycycline Sputum cx pending ELEVATED D-DIMER Present with hypoxia CTA chest showed no evidence for PE No lower extremities swelling and tenderness to suggest DVT COPD EXACERBATION : Continue Solumedrol Continue oxygen supplement and duoneb treatment ACUTE KIDNEY INJURY ON CKD STAGE 3 : Possible related to poor oral intake Creatine improved to 1.3 Losartan /Lasix started today , Will hold next dose until lab resume result in am avoid IV fluid as pt has baseline severe ischemic cardiomyopathy Continue monitor BMP HTN : BP stable cont home medications of toprol XL 50 mg daily Losartan and lasix starting today HYPERLIPIDEMIA : cont Zocor 40 mg daily PAROXYSMAL AFIB Rate control Not on any anticoagulant Continue beta mike and Digoxin Stable HX OF CAD : S/p CABG 1999 with KAUR -LAD , SVG-OM , SVG-diagonal denies of any chest pain or discomfort On Aspirin , Plavix beta mike , statin cardiology on board Stable CHRONIC CHF WITH SYSTOLIC DYSFUNCTION /SEVERE ISCHEMIC CARDIOMYOPATHY : no evidence of vol overload ARB and Lasix on hold, will resume in am s/p AICD placement reports of increased fatigue , weakness then usual with COLIN ECHO done AICD interrogation ordered to R/O arrhythmia * The left ventricle is normal in size. * There is moderate concentric left ventricular hypertrophy. * Apical wall motion abnormality may reflect pacemaker activation. * No regional wall motion abnormalities noted. * Ejection Fraction = 55-60%. * The right ventricle is mildly dilated. * The right ventricular systolic function is normal. * Aortic valve sclerosis moderate, without significant aortic valvular stenosis. * Mild to moderate aortic regurgitation. * There is mild mitral regurgitation. * There is mild tricuspid regurgitation. * Moderate aortic root dilatation. TYPE 2 DM hold oral meds -Glimepiride and Metformin HbA1c pending BS has been elevated on Solumedrol, will titrate steroid down pharmacy for glycemic management CODE STATUS FULL CODE DVT PROPHYLAXIS : moderate risk Sub q Heparin Current Inpatient Medications: Current Inpatient Medications Medications (Trade) Dose Ordered Sig/Silverio Route Start Time Stop Time Status Last Admin Dose Admin Heparin Sodium (Porcine) (Heparin Sq 5000 Unit/0.5ml) 5,000 unit Q8 SQ 11/18/17 22:00 12/18/17 21:59 11/19/17 06:07 5,000 UNIT Acetaminophen (Tylenol Tab) 650 mg Q4H PRN PO 11/18/17 20:30 12/18/17 20:29 Al Hydrox/Mg Hydrox/Simethicone (Maalox Max Susp) 15 ml Q4H PRN PO 11/18/17 20:30 12/18/17 20:29 Magnesium Hydroxide (Milk Of Magnesia Susp) 30 ml Q12H PRN PO 11/18/17 20:30 12/18/17 20:29 Zolpidem Tartrate (Ambien Tab) 5 mg HSZ PRN PO 11/18/17 20:30 12/18/17 20:29 Ondansetron HCl (Zofran Inj) 4 mg Q6H PRN IV 11/18/17 20:30 12/18/17 20:29 Nitroglycerin (Nitrostat Tab) 0.4 mg UD PRN SL 11/18/17 20:30 12/18/17 20:29 Polyethylene (Miralax Powder Packet) 17 gm DAILY PRN PO 11/18/17 20:30 12/18/17 20:29 Albuterol/ Ipratropium (Duoneb) 3 ml QIDR INH 11/19/17 08:00 12/19/17 07:59 11/19/17 11:25 3 ML Methylprednisolone Sodium Succinate 40 mg/Syringe 0.64 ml @ 1.5 mls/min Q8 IV 11/18/17 22:00 12/18/17 21:59 11/19/17 06:11 1.5 MLS/MIN Doxycycline Hyclate (Vibramycin Cap) 100 mg BID PO 11/19/17 09:00 11/26/17 08:59 11/19/17 08:11 100 MG Albuterol/ Ipratropium (Duoneb) 3 ml Q2H PRN INH 11/18/17 22:00 12/18/17 21:59 Albuterol (Ventolin Hfa Inhaler) 2 puffs Q6H PRN INH 11/18/17 23:15 12/18/17 23:14 Aspirin (Ecotrin Tab) 81 mg DAILY PO 11/19/17 09:00 12/19/17 08:59 11/19/17 08:10 81 MG Clopidogrel Bisulfate (plAVix TAB) 75 mg DAILY PO 11/19/17 09:00 12/19/17 08:59 11/19/17 08:11 75 MG Digoxin (Lanoxin Tab) 0.125 mg SuTuThSa@1600 PO 11/19/17 16:00 12/19/17 15:59 Digoxin (Lanoxin Tab) 0.25 mg MoWeFr@1600 PO 11/20/17 16:00 12/20/17 15:59 Salmeterol Xinafoate/ Fluticasone (Advair Diskus 250/50 Inh) 1 puff BID INH 11/19/17 09:00 12/19/17 08:59 11/19/17 08:08 1 PUFF Furosemide (Lasix Tab) 40 mg SuTuThSa@0900 PO 11/19/17 09:00 12/19/17 08:59 11/19/17 08:10 40 MG Furosemide (Lasix Tab) 80 mg MoWeFr@0900 PO 11/20/17 09:00 12/20/17 08:59 Losartan Potassium (coZAAR TAB) 100 mg DAILY PO 11/19/17 09:00 12/19/17 08:59 11/19/17 08:10 100 MG Metoprolol Succinate (Toprol Xl Tab) 50 mg DAILY PO 11/19/17 09:00 12/19/17 08:59 11/19/17 08:11 50 MG Multivitamins (Multivitamin Tab) 1 tab DAILY PO 11/19/17 09:00 12/19/17 08:59 11/19/17 08:11 1 TAB Neomycin/ Polymyxin/ Hydrocortisone (Cortisporin Otic Susp) 4 drops TID OT 11/19/17 09:00 12/19/17 08:59 11/19/17 08:09 4 DROPS Potassium Chloride (Klor-Con Tab) 20 meq DAILY PO 11/19/17 09:00 12/19/17 08:59 11/19/17 08:10 20 MEQ Ranitidine HCl (zANTac TAB) 150 mg BID PO 11/19/17 09:00 12/19/17 08:59 11/19/17 08:11 150 MG Simvastatin (Zocor Tab) 40 mg QPM PO 11/19/17 21:00 12/19/17 20:59 Insulin Aspart (novoLOG ASPART) SLIDING SCALE IF C... ACHS SC 11/19/17 07:00 12/19/17 06:59 11/19/17 12:52 15 UNITS Glucose (Glucose 40% Gel) 15-30 GRAMS 15 GRAMS... UD PRN PO 11/18/17 23:15 12/18/17 23:14 Glucose (Glucose Chew Tab) 4-8 Tablets 4 Tabl... UD PRN PO 11/18/17 23:15 12/18/17 23:14 Dextrose (Dextrose 50% 50ML Syringe) 25-50ML OF 50% DW IV FOR... UD PRN IV 11/18/17 23:15 12/18/17 23:14 Glucagon (Glucagon Inj) 1 mg UD PRN SQ 11/18/17 23:15 12/18/17 23:14 Miscellaneous Information (Consult Glycemic Management Pharmacy) 1 ea UD PRN N/A 11/18/17 23:30 12/18/17 23:29 Ioversol (Optiray 320) 111 ml UD PRN IV 11/19/17 11:30 11/23/17 11:29
--- NOTE | 2017-11-19 14:34 | CARDIOLOGY CONSULTATION ---
DATE OF CONSULTATION: 11/19/2017 REFERRING PHYSICIANS: Rene Aquino MD and Larisa Owens MD. INDICATIONS: Dyspnea, hypoxia. HISTORY OF PRESENT ILLNESS: The patient is an 82-year-old male well known to me. His past history is notable for chronic coronary artery disease status post coronary bypass grafting in July 2000, receiving a KAUR graft to the LAD, a saphenous vein graft sequentially from the obtuse margin to the diagonal with prior history of coronary intervention prior as well as stent to the proximal circumflex for severe disease and a dominant vessel in 2013. He carries a history of past mixed diffuse cardiomyopathy, which improved after intervention with coronary disease treatment with medical therapies and subsequent biventricular pacemaker insertion. Ejection fraction returned to near normal. Underlying issues also include chronic atrial fibrillation, past tachybrady syndrome with noted biventricular pacing device in March of 2015, chronic valvular disease with moderate aortic and mitral insufficiency, compensated class 2 congestive heart failure, and chronic asthmatic lung disease. The patient presents this admission noting cough and shortness of breath for several days prior to presentation with increasing wheezing and tightness and presented to the outpatient clinic for further evaluation for fever and cough, where he was found to be hypoxic, hence referred to the Emergency Room for further evaluation. He has been taking medications as usually prescribed. He is seen now on referral. Notes, overnight has demonstrated improvement with the use of antibiotic and corticosteroids. Notes wheezing is substantially better, did have mild intermittent confusion this morning with mild disorientation. Otherwise, notes no acute complaints. Notes no melena, hematochezia, dysuria, or hematuria. Notes no rash or arthritic complaint. Has been taking usual medications as prescribed. Appetite has been generally good. Activities recently have been limited by cold and respiratory distress. ALLERGIES: NOTED TO BE FELECIA INHIBITORS, PREDNISONE, PSEUDOEPHEDRINE, AND SULFA. PREDNISONE IN PAST CAUSING MILD AGITATION WELL ORAL THRUSH. MEDICATIONS: Prior to hospitalization per medication reconciliation and review of outpatient records included albuterol nebulizer; aspirin 81 mg per day; Plavix 75 mg p.o. daily; digoxin 0.125 mg 1 tablet 4 days per week and 2 tablets 3 days per week; furosemide 80 mg Monday, Monday and Monday, 40 mg all other days; Glimepiride 2 mg p.o. daily; home oxygen 2 liters nasal cannula at night; losartan 100 mg p.o. daily; Mag-Ox 400 mg daily; metformin 850 b.i.d.; metoprolol succinate 50 mg daily; multivitamin per day; potassium chloride 20 mEq p.o. daily; Zantac 150 mg twice per day; and Zocor 40 mg p.o. q. p.m. PAST SURGICAL HISTORY: As described, coronary artery bypass grafting in 1999, upgrade prior pacemaker insertion to biventricular device in March of 2015. FAMILY HISTORY: Notable for hypertension, past lung malignancies. 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 He carries a past history of tobacco use, quit 20+ pack year history, discontinued in 1969. He uses occasional alcoholic beverages. PHYSICAL EXAMINATION: VITAL SIGNS: Heart rate 71, blood pressure is 144/66. HEENT: Normocephalic and atraumatic. Nares without discharge. Throat was clear. NECK: Supple without thyromegaly, lymphadenopathy, or JVD. LUNGS: Reveal scattered wheezes diffusely without rhonchi. CARDIOVASCULAR: Regular with paced rhythm. There is a grade 1/6 systolic murmur. There is no audible diastolic murmur. ABDOMEN: Soft, nontender. There is palpable splenomegaly. No hepatojugular reflux. EXTREMITIES: Without cyanosis or clubbing. There is no peripheral edema. Pacemaker site is without irritation or tenderness. DATA: Pacer interrogation today finds it functioning appropriately. No arrhythmias. Chest x-ray reveals no infiltrate. CT scan of the chest revealed no evidence of pulmonary emboli. LABORATORY STUDIES: He had a white cell count of 5.6, hemoglobin 14.0. Sodium is 137, potassium 3.7, chloride is 99, bicarbonate is 27, BUN is 36, and creatinine is 1.36. Troponin I's are negative x2. EKG reveals biventricular paced rhythm, underlying atrial fibrillation. IMPRESSION: Complex 82-year-old male with prior history of ischemic heart disease and mixed cardiomyopathy with return to normal left ventricular function, chronic atrial fibrillation, not on anticoagulation due to marked difficulties with intermittent epistaxis and the patient declined. The patient's underlying history is in addition to cardiac issues notable for asthmatic lung disease, presents now with febrile illness and cough, hypoxia consistent with acute exacerbation of underlying pulmonary disease. No evidence by exam. Laboratory studies suggest acute cardiac decline. Echocardiogram reviewed today demonstrates ejection fraction normal, [id number] aortic and mitral insufficiency as in the past. PLAN: Continue usual cardiac medications. Treat underlying pulmonary issues.
--- NOTE | 2017-11-19 14:41 | Pharmacy Progress Note ---
Glycemic Control Intl Consult Date of Service Nov 19, 2017. Scope Glycemic Pharmacist consulted by Dr Owens on 11/18/17 PM for glycemic control and to write orders per [facility] inpatient glycemic control protocol Objective Weight (Kilograms): 85.500 Accuchecks BSG (last 24hrs): Test 11/18/17 16:05 11/18/17 21:50 11/19/17 00:46 11/19/17 03:51 Random Glucose 135 mg/dl (70-99) Bedside Glucose 241 mg/dl (70-99) 304 mg/dl (70-99) 269 mg/dl (70-99) Test 11/19/17 05:22 11/19/17 06:28 11/19/17 11:10 Random Glucose 252 mg/dl (70-99) Bedside Glucose 236 mg/dl (70-99) 218 mg/dl (70-99) Laboratory Data (last 24hrs) Test 11/18/17 16:05 11/19/17 05:22 Anion Gap 13.0 mmol/L 11.0 mmol/L BUN/Creatinine Ratio 18.1 26.5 Blood Urea Nitrogen 27 mg/dl 36 mg/dl Creatinine 1.47 mg/dl 1.36 mg/dl Potassium Level 3.6 mmol/L 3.7 mmol/L Sodium Level 139 mmol/L 137 mmol/L White Blood Count 5.60 K/uL 3.81 K/uL Red Blood Count 4.25 M/uL Hemoglobin 14.0 g/dL Hematocrit 40.8 % Mean Corpuscular Volume 96.0 fL Mean Corpuscular Hemoglobin 32.9 pg Mean Corpuscular Hemoglobin Concent 34.3 g/dl Platelet Count 186 K/uL Mean Platelet Volume 9.8 fL Neutrophils (%) (Auto) 70.1 % Lymphocytes (%) (Auto) 14.6 % Monocytes (%) (Auto) 13.8 % Eosinophils (%) (Auto) 1.1 % Basophils (%) (Auto) 0.2 % Neutrophils # (Auto) 3.93 K/uL Lymphocytes # (Auto) 0.82 K/uL Monocytes # (Auto) 0.77 K/uL Eosinophils # (Auto) 0.06 K/uL Basophils # (Auto) 0.01 K/uL HbA1c Test 11/19/17 05:22 Recent Pertinent Medications Outpatient Anti-diabetic Regimen: * Metformin * Glimepiride * A1c = pending The patient is currently receiving: * Basal insulin: None * Correctional Insulin: Novolog Correction per scale ACHS Goal Range: Low 140 mg/dL - High 180 mg/dL Correction Factor: 25 mg/dL/unit * Prandial insulin: Per carb ratio of 1 unit per 9 grams CHO consumed * Oral Agents: None at this time Risk Factors for Insulin Resistance: * Steroids: Solu-medrol 125 mg x 1 last night, then 40 mg IV q8h * Diet: AHA/ type 2 diabetes Assessment & Plan ASSESSMENT: * 82 y/o male admitted for COPD exacerbation, placed on high dose steroids * Pt is maintained on oral antidiabetic agents as an outpatient * Oral agents are not recommended for inpatient use d/t drug interactions, changing PO intake, and difficulty titrating for acute hyper/hypoglycemia. ADA recommends re-initiating outpatient oral agents 1-2 days prior to discharge if/ when appropriate if they were held on admission. * Will hold oral agents for admission and utilize SQ basal bolus insulin regimen which is the recommended regimen for inpatient glycemic control. * Will initiate weight based insulin dosing (based on stress level 2/3) for insulin graeme patient and titrate based on BSG trends. PLAN FOR INPATIENT GLYCEMIC CONTROL: * Holding outpatient oral diabetes medications * Basal insulin with LANTUS 25 units x 1 as a loading dose, then LANTUS 15 units SQ BID (20 units for BSG > 180) * Correctional Insulin with NOVOLOG per scale ACHS + 0200 check * TIGHTEN Goal Range: Low 110 mg/dL - High 150 mg/dL * TIGHTEN Correction Factor: 20 mg/dL/unit * TIGHTEN Nutritional / Prandial insulin per carb ratio of 1 unit per 7 grams CHO consumed * Please note that the plan above was derived based on current level of insulin resistance and hospital stress. These recommendations are appropriate for inpatient admission only. Plan of care upon discharge will need to be reassessed to avoid potential outpatient hypo/hyperglycemia. Thank you.
[2017-11-19] MEDS ORDERED: DIGOXIN 0.125 MG TAB PO SCH (16:00)
[2017-11-19] MEDS ORDERED: NALOXONE HCL 0.4 MG/1 ML VIAL/CARP IV ONE (20:15)
[2017-11-19] MEDS ORDERED: NURSING VERBAL MED ORDER ONE ×2 (20:15)
[2017-11-19] MEDS ORDERED: SIMVASTATIN 40 MG TAB PO SCH (21:00)
[2017-11-19] MEDS: INSULIN GLARGINE SOLOSTAR 100 UNITS/ML 3 ML PEN SC SCH (21:29)
[2017-11-20] VITALS (10 sets, daily range): BP systolic 135–149; BP diastolic 68–79; PULSE 71–84; TEMP 36.5–37.2; O2SAT 92–96
[2017-11-20] MEDS ORDERED: INSULIN ASPART 100 UNITS/ML 3 ML PEN SC ONE (02:00)
[2017-11-20] MEDS: HEPARIN SOD 5000 UNIT/0.5 ML CARP SQ SCH ×2 (05:52→14:00)
[2017-11-20] MEDS: METHYLPREDNISOLONE IV 40 MG in SYRINGE 0 ML IV SCH (05:53)
[2017-11-20] MEDS: ALBUT/IPRATROP 3MG/0.5MG NEB 3 ML VIAL INH SCH ×3 (07:00→14:45)
[2017-11-20 07:22] LABS: CALCIUM 8.7 mg/dl (8.5-10.1); CREATININE 1.29 mg/dl (0.60-1.40); POTASSIUM 3.8 mmol/L (3.5-5.1)
[2017-11-20] MEDS: NEOMYCIN/POLYMYX/HYDROCORT OT SUSP 10 ML BTL OT SCH ×2 (07:31→14:00)
[2017-11-20] MEDS: FLUTICASONE/SALMETEROL 250/50 (ADVAIR) 14 PUFF/1 INHALER INH SCH (07:31)
[2017-11-20] MEDS: RANITIDINE HCL 150 MG TAB PO SCH (07:32)
[2017-11-20] MEDS: DOXYCYCLINE HYCLATE 100 MG CAP PO SCH (07:32)
[2017-11-20] MEDS: METOPROLOL SUCC 50MG EXT REL TAB PO SCH (07:32)
[2017-11-20] MEDS: CLOPIDOGREL BISULFATE 75 MG TAB PO SCH (07:32)
[2017-11-20] MEDS: MULTIVITAMIN TAB PO SCH (07:33)
[2017-11-20] MEDS: ASPIRIN 81 MG ECTAB PO SCH (07:33)
[2017-11-20] MEDS: POTASSIUM CHLORIDE 20 MEQ TABCR PO SCH (07:33)
[2017-11-20 08:08] LABS: HEMOGLOBIN A1C 6.6 % (4.5-5.6)
[2017-11-20] MEDS: INSULIN ASPART 100 UNITS/ML 3 ML PEN SC SCH ×2 (08:46→13:03)
[2017-11-20] MEDS: INSULIN GLARGINE SOLOSTAR 100 UNITS/ML 3 ML PEN SC SCH (08:46)
[2017-11-20] MEDS ORDERED: FUROSEMIDE 80 MG TAB PO SCH (09:00)
--- NOTE | 2017-11-20 10:18 | Progress Note ---
Medicine Progress Note Date & Time of Visit: Nov 20, 2017 at 10:05. Subjective Pt was seen and examined Sitting in chair with no distress He said that he feels much better He said that he was doing well also yesterday and thought she was going home He said that his oxygen saturation has been in the 92 on RA and said that is very good for him because he is on chronic oxygen used He said that his cough much better He is very anxious to go home Denies any chest pain, palpitation and SOB Objective Last 8 Hrs Date Time Temp Pulse Resp B/P (MAP) Pulse Ox O2 Delivery O2 Flow Rate FiO2 11/20/17 08:00 95 Room Air 11/20/17 07:50 37.0 71 18 149/72 (97) 93 Room Air 11/20/17 07:03 73 16 93 Room Air 11/20/17 04:02 36.9 78 16 138/72 (94) 96 11/20/17 04:00 Room Air Physical Exam: General- No acute distress Head- atraumatic Eyes- PERRL, EOMI ENT- oropharynx clear Neck- supple, no JVD Lungs- Mild wheezing on expiratory Heart- regular rhythm Abdomen- normal bowel sounds, soft Extremities- no calf tenderness Neuro- alert, oriented x 3; PERRL, EOMI Skin- warm & dry Laboratory Results: Last 24 Hours Test 11/19/17 11:10 11/19/17 16:12 11/19/17 20:06 11/20/17 02:00 Bedside Glucose 218 mg/dl 241 mg/dl 253 mg/dl 167 mg/dl Test 11/20/17 06:35 11/20/17 06:47 Sodium Level 138 mmol/L Potassium Level 3.8 mmol/L Chloride Level 102 mmol/L Carbon Dioxide Level 26 mmol/L Anion Gap 10.0 mmol/L Blood Urea Nitrogen 46 mg/dl Creatinine 1.29 mg/dl Est Creatinine Clear Calc Drug Dose 47.6 ml/min Estimated GFR () 59.0 Estimated GFR (Non- 50.9 BUN/Creatinine Ratio 35.8 Random Glucose 174 mg/dl Calcium Level 8.7 mg/dl Magnesium Level 2.6 mg/dl Triglycerides Level 91 mg/dl Cholesterol Level 93 mg/dl HDL Cholesterol 32 mg/dl LDL Cholesterol, Calculated 43 mg/dl VLDL Cholesterol, Calculated 18 mg/dl Cholesterol/HDL Ratio 2.9 Bedside Glucose 176 mg/dl Assessment & Plan ACUTE HYPOXEMIC RESPIRATORY FAILURE Present with flu like symptoms Related to COPD exacerbation CXR on admission showed no infiltrate CT chest with PE done and showed no evidence for PE. A few small nodular ill- defined left lower lobe airspace opacities Influenza Ag and PCR titer negative Continue oxygen supplement Elevated D dimer On Solumedrol 40 mg q8h, will wean solumedrol Allergies with prednisone, but he said that he had Medrol aleah in the past with no issues Reviews outpatient chart and confirmed he had Medrol aleah for COPD exacerbation when he used to follow with pulmonology Duo Neb scheduled and PRN Continue PO Doxycycline Sputum cx no growth ELEVATED D-DIMER Present with hypoxia CTA chest showed no evidence for PE No lower extremities swelling and tenderness to suggest DVT COPD EXACERBATION : Continue Solumedrol Continue oxygen supplement and duoneb treatment Allergies with prednisone, but he said that he had Medrol aleah in the past with no issues Reviews outpatient chart and confirmed he had Medrol aleah for COPD exacerbation when he used to follow with pulmonology Will discharge on Medrol taper course ACUTE KIDNEY INJURY ON CKD STAGE 3 : Possible related to poor oral intake Creatine improved to 1.3 Losartan /Lasix started today , Will hold next dose until lab resume result in am avoid IV fluid as pt has baseline severe ischemic cardiomyopathy Resolved HTN : BP stable cont home medications of toprol XL 50 mg daily Losartan and lasix starting today HYPERLIPIDEMIA : cont Zocor 40 mg daily PAROXYSMAL AFIB Rate control Not on any anticoagulant Continue beta mike and Digoxin Stable HX OF CAD : 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 * There is moderate concentric left ventricular hypertrophy. * Apical wall motion abnormality may reflect pacemaker activation. * No regional wall motion abnormalities noted. * Ejection Fraction = 55-60%. * The right ventricle is mildly dilated. * The right ventricular systolic function is normal. * Aortic valve sclerosis moderate, without significant aortic valvular stenosis. * Mild to moderate aortic regurgitation. * There is mild mitral regurgitation. * There is mild tricuspid regurgitation. * Moderate aortic root dilatation. TYPE 2 DM hold oral meds -Glimepiride and Metformin HbA1c pending BS has been elevated on Solumedrol, will titrate steroid down pharmacy for glycemic management CODE STATUS FULL CODE DVT PROPHYLAXIS : moderate risk Sub q Heparin DISPOSITION Will discharge home today Consultants: Cardiology Current Inpatient Medications: Current Inpatient Medications Medications (Trade) Dose Ordered Sig/Silverio Route Start Time Stop Time Status Last Admin Dose Admin Heparin Sodium (Porcine) (Heparin Sq 5000 Unit/0.5ml) 5,000 unit Q8 SQ 11/18/17 22:00 12/18/17 21:59 11/20/17 05:52 5,000 UNIT Acetaminophen (Tylenol Tab) 650 mg Q4H PRN PO 11/18/17 20:30 12/18/17 20:29 Al Hydrox/Mg Hydrox/Simethicone (Maalox Max Susp) 15 ml Q4H PRN PO 11/18/17 20:30 12/18/17 20:29 Magnesium Hydroxide (Milk Of Magnesia Susp) 30 ml Q12H PRN PO 11/18/17 20:30 12/18/17 20:29 Zolpidem Tartrate (Ambien Tab) 5 mg HSZ PRN PO 11/18/17 20:30 12/18/17 20:29 Ondansetron HCl (Zofran Inj) 4 mg Q6H PRN IV 11/18/17 20:30 12/18/17 20:29 Nitroglycerin (Nitrostat Tab) 0.4 mg UD PRN SL 11/18/17 20:30 12/18/17 20:29 Polyethylene (Miralax Powder Packet) 17 gm DAILY PRN PO 11/18/17 20:30 12/18/17 20:29 Albuterol/ Ipratropium (Duoneb) 3 ml QIDR INH 11/19/17 08:00 12/19/17 07:59 11/20/17 07:00 3 ML Doxycycline Hyclate (Vibramycin Cap) 100 mg BID PO 11/19/17 09:00 11/26/17 08:59 11/20/17 07:32 100 MG Albuterol/ Ipratropium (Duoneb) 3 ml Q2H PRN INH 11/18/17 22:00 12/18/17 21:59 Albuterol (Ventolin Hfa Inhaler) 2 puffs Q6H PRN INH 11/18/17 23:15 12/18/17 23:14 Aspirin (Ecotrin Tab) 81 mg DAILY PO 11/19/17 09:00 12/19/17 08:59 11/20/17 07:33 81 MG Clopidogrel Bisulfate (plAVix TAB) 75 mg DAILY PO 11/19/17 09:00 12/19/17 08:59 11/20/17 07:32 75 MG Digoxin (Lanoxin Tab) 0.125 mg SuTuThSa@1600 PO 11/19/17 16:00 12/19/17 15:59 11/19/17 17:55 0.125 MG Digoxin (Lanoxin Tab) 0.25 mg MoWeFr@1600 PO 11/20/17 16:00 12/20/17 15:59 Salmeterol Xinafoate/ Fluticasone (Advair Diskus 250/50 Inh) 1 puff BID INH 11/19/17 09:00 12/19/17 08:59 11/20/17 07:31 1 PUFF Furosemide (Lasix Tab) 40 mg SuTuThSa@0900 PO 11/19/17 09:00 12/19/17 08:59 Future Hold 11/19/17 08:10 40 MG Furosemide (Lasix Tab) 80 mg MoWeFr@0900 PO 11/20/17 09:00 12/20/17 08:59 11/20/17 07:34 80 MG Losartan Potassium (coZAAR TAB) 100 mg DAILY PO 11/19/17 09:00 12/19/17 08:59 Future Hold 11/19/17 08:10 100 MG Metoprolol Succinate (Toprol Xl Tab) 50 mg DAILY PO 11/19/17 09:00 12/19/17 08:59 11/20/17 07:32 50 MG Multivitamins (Multivitamin Tab) 1 tab DAILY PO 11/19/17 09:00 12/19/17 08:59 11/20/17 07:33 1 TAB Neomycin/ Polymyxin/ Hydrocortisone (Cortisporin Otic Susp) 4 drops TID OT 11/19/17 09:00 12/19/17 08:59 11/19/17 08:09 4 DROPS Potassium Chloride (Klor-Con Tab) 20 meq DAILY PO 11/19/17 09:00 12/19/17 08:59 11/20/17 07:33 20 MEQ Ranitidine HCl (zANTac TAB) 150 mg BID PO 11/19/17 09:00 12/19/17 08:59 11/20/17 07:32 150 MG Simvastatin (Zocor Tab) 40 mg QPM PO 11/19/17 21:00 12/19/17 20:59 11/19/17 21:27 40 MG Insulin Aspart (novoLOG ASPART) SLIDING SCALE IF C... ACHS SC 11/19/17 07:00 12/19/17 06:59 11/20/17 08:46 8 UNITS Glucose (Glucose 40% Gel) 15-30 GRAMS 15 GRAMS... UD PRN PO 11/18/17 23:15 12/18/17 23:14 Glucose (Glucose Chew Tab) 4-8 Tablets 4 Tabl... UD PRN PO 11/18/17 23:15 12/18/17 23:14 Dextrose (Dextrose 50% 50ML Syringe) 25-50ML OF 50% DW IV FOR... UD PRN IV 11/18/17 23:15 12/18/17 23:14 Glucagon (Glucagon Inj) 1 mg UD PRN SQ 11/18/17 23:15 12/18/17 23:14 Miscellaneous Information (Consult Glycemic Management Pharmacy) 1 ea UD PRN N/A 11/18/17 23:30 12/18/17 23:29 Ioversol (Optiray 320) 111 ml UD PRN IV 11/19/17 11:30 11/23/17 11:29 Insulin Glargine (Lantus Solostar Pen) SEE PROTOCOL TEXT BID SC 11/19/17 21:00 12/19/17 20:59 11/20/17 08:46 15 UNITS Methylprednisolone Sodium Succinate 40 mg/Syringe 0.64 ml @ 1.5 mls/min DAILY IV 11/21/17 09:00 12/18/17 21:59
--- NOTE | 2017-11-20 11:12 | CARDIOLOGY PROGRESS NOTE ---
DATE: 11/20/2017 The patient seen and examined. Chart, medications, telemetry reviewed. SUBJECTIVE: The patient feels substantially improved since admission. Still has moderate wheezing and cough, though no respiratory distress. Notes no chest pains, dizziness, lightheadedness, syncope or near syncope. OBJECTIVE: VITAL SIGNS: Heart rate is 84, blood pressure is 141/79. NECK: Thin. There is no jugular venous distention. LUNGS: Reveal few scattered wheezes, mild rhonchorous cough, improved since admission. CARDIOVASCULAR: Regular with a grade 1-2/6 systolic murmur. There is no diastolic murmur. ABDOMEN: Soft. EXTREMITIES: Without cyanosis or clubbing. There is no peripheral edema. DATA: EKG reveals ventricular paced rhythm, rate of 83 beats per minute. IMPRESSION: An 82-year-old male with complex history as well outlined, though clinically stable from a cardiac standpoint, admitted with acute respiratory issues, tracheobronchitis, now clinically improved. Anticipates discharge today. No changes in medical regimen or therapies made from a cardiac standpoint.
[2017-11-20] MEDS ORDERED: METH4PAK PO (15:11)
[2017-11-20] MEDS ORDERED: DXY100 PO (15:11)
--- NOTE | 2017-11-20 15:31 | Discharge Instructions ---
Discharge Instructions Date of Service Nov 20, 2017. Admission Reason for Admission: Copd Exacerbation Discharge Discharge Diagnosis / Problem: ACUTE HYPOXEMIC RESPIRATORY FAILURE/COPD exacerbation Discharge Goals Goal(s): Decrease discomfort, Improve function, Improve disease control Activity Recommendations Activity Limitations: resume your previous activity (as tolerated) . Instructions / Follow-Up Instructions / Follow-Up Follow up with your primary care provider Dr. Cardenas on 11/24 @ 1:05 pm Continue course of antibiotic with Doxycycline for 5 days Continue Medrol dose Jorge as directed Continue oxygen supplement Resume metformin on Monday Check BMP to monitor renal function Current Hospital Diet Patient's current hospital diet: AHA Diet (Heart Healthy), Diabetes Type 2 Diet Discharge Diet Recommended Diet: AHA Diet (Heart Healthy), Diabetes Type 2 Diet Pending Studies Studies pending at discharge: no Laboratory Results Hemoglobin A1c Test 11/19/17 05:22 Range/Units Estimated Average Glucose 143 mg/dl Hemoglobin A1c 6.6 H 4.5-5.6 % Lipid Panel Test 11/20/17 06:35 Range/Units Triglycerides Level 91 0-150 mg/dl Cholesterol Level 93 0-200 mg/dl HDL Cholesterol 32 mg/dl Cholesterol/HDL Ratio 2.9 LDL Cholesterol, Calculated 43 mg/dl Medical Emergencies . Who to Call and When: Medical Emergencies: If at any time you feel your situation is an emergency, please call 911 immediately. . Non-Emergent Contact Non-Emergency issues call your: Primary Care Provider Call Non-Emergent contact if: you have a fever, you have any medication questions . . "Provider Documentation" section prepared by Rene Aquino. . VTE Core Measure Inpt VTE Proph given/why not?: Unfractionated heparin SQ
[2017-11-20] MEDS ORDERED: DIGOXIN 0.25 MG TAB PO SCH (16:00)
[2017-11-21] MEDS ORDERED: METHYLPREDNISOLONE IV 40 MG in SYRINGE 0 ML IV SCH (09:00)
== END 2017-11-20 15:35 | disposition home or self-care (01) | DRG 190 ==
LOC: C.EDB 15:34 → C.2T 19:42 → ENRESERV 19:55
PROVIDERS: ADMIT Hospitalist; ATTEND Internal Medicine
DX: J44.1 Chronic obstructive pulmonary disease with (acute) exacerbation (principal); J96.01 Acute respiratory failure with hypoxia; N17.9 Acute kidney failure, unspecified; I13.0 Hypertensive heart and chronic kidney disease with heart failure and stage 1 through stage 4 chronic kidney disease, or unspecified chronic kidney disease; I50.22 Chronic systolic (congestive) heart failure; E11.22 Type 2 diabetes mellitus with diabetic chronic kidney disease; N18.3 Chronic kidney disease, stage 3 (moderate); I48.0 Paroxysmal atrial fibrillation; I25.10 Atherosclerotic heart disease of native coronary artery without angina pectoris; I25.5 Ischemic cardiomyopathy; E78.5 Hyperlipidemia, unspecified; R79.1 Abnormal coagulation profile; Z79.02 Long term (current) use of antithrombotics/antiplatelets; Z79.82 Long term (current) use of aspirin; Z79.84 Long term (current) use of oral hypoglycemic drugs; Z79.899 Other long term (current) drug therapy; Z87.891 Personal history of nicotine dependence; Z88.2 Allergy status to sulfonamides; Z88.8 Allergy status to other drugs, medicaments and biological substances; Z95.1 Presence of aortocoronary bypass graft

== ENCOUNTER 2018-04-24 21:01 | Inpatient (IN) | payer OTHER ==
[~2018-04-24] VITALS: Ht 182.9 cm; Wt 98.4 kg
[~2018-04-24 21:01] MED LIST changes: -ASPEC81 PO; +ASPI-232 PO; -BCTROWC; +CLOP1TAB5 PO; -CMBIN INH; -CZR50 PO; -DIGO0.122 PO; +DXY100 PO; -FRS/40 PO; -FSM70 PO; +FURO40TA3 PO; -GLC/500 PO; +GLIM2TAB2 PO; +LNX125 PO; +LOSA100T65 PO; +MAGN400C2 PO; -MAGN400T6 PO; +METF850T9 PO; -MULT-506 PO; +MULTTAB58 PO; +NEOM1SUS21 OT; +OXGN; -PLV75 PO; -POTA-335 PO; +POTA20TA13 PO; +RANI150T3 PO; -RANI150T85 PO; -SIMV40TA2 PO; +SIMV40TA4 PO; +VNTHFA/IN INH
[2018-04-24 21:10] VITALS: Ht 182.9 cm; Wt 98.4 kg
[2018-04-24] MEDS ORDERED: SODIUM CHLORIDE 0.9% 1000ML 1,000 ML IV ONE (21:29)
--- NOTE | 2018-04-24 21:47 | EMERGENCY ROOM VISIT NOTE ---
History Report prepared by Linda: Sean Ruvalcaba Under the Supervision of: Dr. Michael Lambert D.O. First contact with patient: 21:19 Chief Complaint: FEVER Stated Complaint: LETHARGIC, FEVER History of Present Illness The patient is a 83 year old male who presents to the Emergency Room with complaints of a worsening fever that began recently. Patient is present with his . states his most recent fever was "103". states the patient has been "sleeping all the time" the past couple of days. She adds the patient has been confused, which is new for him. She states the patient has also had vomiting and intermittent chills. She adds the patient has coughs which are secondary to his history of COPD. denies the patient having a history of similar symptoms. She adds the patient has a history of a UTI, open heart surgery, "2 leaky valves", and lung problems. She denies the patient having a history of heart failure. adds the patient's telecommunications specialist is Dr. Sanford. states the patient has not seen his PCP recently. denies patient falling recently. She states the patient uses hearing aids. She adds the patient has been peeing but does know how much. She states she wants the patient checked for Lyme disease because he is outside all of the time. Source of History: patient, spouse/significant other () Onset: Recent Position: head Symptom Intensity: 103 Timing: worsening Modifying Factors (Relieving): other (None) Associated Symptoms: + chills, + vomiting, + fatigue Note: Positive confusion. Review of Systems See HPI for pertinent positives & negatives. A total of 10 systems reviewed and were otherwise negative. 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 (5) HTN (hypertension) (6) Type II diabetes mellitus Surgical Problems: (1) Status post implantation of automatic cardioverter/defibrillator (AICD) Family History Lung disease Social History Smoking Status: Former Smoker Alcohol Use: none Marital Status: Current/Historical Medications Scheduled Aspirin (Aspir-81), 81 MG PO DAILY Clopidogrel Bisulfate (Plavix), 75 MG PO DAILY Digoxin (Digoxin), 0.125 MG PO DAILY Digoxin (Digoxin), 2 TABS PO 3XWK Fluticasone Prop/Salmeterol (Advair Diskus 250/50 60 Dose), 1 PUFF INH BID Furosemide (Lasix), 80 MG PO 3XWK Furosemide (Lasix), 40 MG PO 4XWK Glimepiride (Glimepiride), 2 MG PO QDB Home O2 Therapy (Oxygen), 2 LITERS NA CONTINOUS Loratadine (Claritin), 10 MG PO DAILY Losartan Potassium (Cozaar), 100 MG PO DAILY Magnesium Oxide (Magnesium Oxide), 400 MG PO DAILY Metformin HCl (Metformin HCl), 850 MG PO BIDM Metoprolol Succ (Toprol Xl) (Toprol-Xl), 50 MG PO DAILY Multiple Vitamin (Multivitamin), 1 TAB PO DAILY Potassium Chloride Microencaps (Potassium Chloride Er), 20 MEQ PO DAILY Ranitidine Hcl (Zantac), 150 MG PO BID Simvastatin (Zocor), 40 MG PO QPM Triamcinolone Acet (Triamcinolone Acetonide), 1 APPLN TD BID Allergies Coded Allergies: FELECIA Inhibitors (Verified Allergy, Unknown, ? - TOLERATES LOSARTAN AT HOME , 11/18/17) Sulfa Antibiotics (Verified Allergy, Unknown, ., 11/18/17) Pseudoephedrine (Verified Adverse Reaction, Intermediate, TEMP ELEV, ) Prednisone (Unverified Adverse Reaction, Unknown, BLISTERS IN THROAT, 11/18) Physical Exam Vital Signs Date Time Temp Pulse Resp B/P (MAP) Pulse Ox O2 Delivery O2 Flow Rate FiO2 04/25/18 01:10 71 04/25/18 00:48 148/51 04/25/18 00:09 72 18 96 04/25/18 00:01 148/51 04/24/18 23:12 39.3 04/24/18 23:09 71 12 95 04/24/18 23:04 155/74 04/24/18 22:31 71 16 96 04/24/18 22:19 159/60 04/24/18 22:01 73 25 97 Nasal Cannula 3.0 04/24/18 21:31 72 29 90 Room Air 04/24/18 21:23 71 04/24/18 21:15 180/78 04/24/18 21:10 40.0 91 29 180/78 94 Room Air Physical Exam GENERAL: Patient is awake, listless, responds to commands intermittently, and in no acute distress. Patient is resting comfortably and showing no signs of anxiety EYES: The conjunctivae are clear. The pupils are round and reactive. EARS, NOSE, MOUTH AND THROAT: The nose is without any evidence of any deformity. Mucous membranes are dry. Tongue is midline NECK: The neck is nontender and supple. RESPIRATORY: Diminshed lung sounds throughout. Rales at both bases otherwise normal respiratory effort is noted. There is no evidence of wheezing or rhonchi to auscultation. CARDIOVASCULAR: Tachycardic rate but regular rhythm noted. No definite murmur to auscultation. There no rubs or gallops normal S1 normal S2 GASTROINTESTINAL: Mildly distended. Tenderness in suprapubic region otherwise the abdomen is soft. Bowel sounds are present in all quadrants. MUSCULOSKELETAL/EXTREMITIES: There is no evidence of gross deformity. Full range of motion is noted in the hips and shoulders. SKIN: There is no obvious evidence of any rash. There are no petechiae, pallor or cyanosis noted. NEUROLOGIC: Patient will not answer questions. Unable to assess orientation at this time. No facial droop. Strength is symmetric. Medical Decision & Procedures ER Provider Diagnostic Interpretation: Radiology results as stated below per my review and radiologist interpretation: ABDOMEN AND PELVIS CT WITHOUT CONTRAST CT DOSE: 1815.54 mGy.cm HISTORY: Acute fever fever TECHNIQUE: Multiaxial CT images of the abdomen and pelvis were performed without contrast. A dose lowering technique was utilized adhering to the principles of ALARA. COMPARISON STUDY: CTA chest 11/19/2017, chest radiographs 02/18/2010. FINDINGS: At least moderate multichamber cardiac enlargement with pacer/AICD leads noted overlying the heart. Coronary arterial calcifications with prior median sternotomy. Respiratory motion limits the dilation of the lung bases. Previously noted 6 mm solid nodule seen within the left lower lobe is likely present on image 45 series 3. Mild subsegmental dependent bibasilar atelectasis. Study is motion degraded. There is no pneumatosis or pneumoperitoneum. Lobulated hypodense lesion of the right hepatic lobe redemonstrated measuring 4.0 cm suggesting hepatic cyst. Liver is otherwise unremarkable. No intrahepatic biliary ductal dilation. Mild gallbladder distention. Mild generalized pancreatic atrophy. Spleen and adrenal glands are unremarkable. Mild bilateral perinephric stranding. Hypodense lesions about the bilateral kidneys compatible with renal cyst measuring up to 7.2 cm within the inferior pole right kidney. No renal calculi or obstructive uropathy. Indeterminate 1.4 cm area of increased density about the interpolar left kidney, image 177 series 3. Garcai catheter noted within the bladder lumen. There is a linear array of coarse calcifications within the inferior right aspect of the urinary bladder lumen. Mild wall thickening of the bladder with mild perivesicular stranding. The prostate is markedly enlarged with prostatic calcifications. Small fat filled bilateral hernias. Extensive calcification about the abdominal aorta with tortuosity. 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 No pathologically enlarged lymph nodes. There is no bowel obstruction. Colonic diverticulosis without diverticulitis. Terminal ileum and appendix appear normal. No ascites or mesenteric inflammatory changes. Soft tissues are within normal limits. 30% anterior endplate compression deformity of the T12 vertebral body, chronic in nature. IMPRESSION: 1. No bowel obstruction or focal bowel wall thickening. 2. Colonic diverticulosis without diverticulitis. 3. Marked prostamegaly with Garcia catheter within a decompressed bladder lumen. Linear array of coarse calcifications within the dependent bladder are seen suggesting a peripherally calcified lesion or bladder calculi. 4. Bilateral renal cysts with exophytic mildly hyperdense lesion of the interpolar left kidney, possibly reflecting a complex cyst. This could be further evaluated with renal ultrasound 5. 6 mm solid nodule of the lateral basal segment left lower lobe. 6. Additional findings as above. Electronically signed by: Phillip Lr M.D. 04/24/2018 11:18 PM CHEST ONE VIEW PORTABLE HISTORY: 83 years-old Male Sepsis acute sepsis COMPARISON: Chest radiograph 11/18/2017, CTA chest 11/19/2017 TECHNIQUE: Portable AP view of the chest FINDINGS: Cardiac silhouette is at least moderately enlarged. Medial lung apices are secured by the patient's chin. Left subclavian pacer/AICD with leads appearing intact. Calcification of the thoracic aorta. Prior median sternotomy. Pulmonary vascular congestion without overt pulmonary edema. There is no pneumothorax, pleural effusion or lobar airspace consolidation. Mild chronic interstitial coarsening. Degenerative changes of the shoulders and spine. IMPRESSION: Cardiomegaly with pulmonary vascular congestion. The above report was generated using voice recognition software. It may contain grammatical, syntax or spelling errors. Electronically signed by: Phillip Lr M.D. 04/24/2018 10:33 PM HEAD WITHOUT CONTRAST (CT) CLINICAL HISTORY: 83 years-old Male with altered MS. Acutely altered mental status TECHNIQUE: Multiple axial CT images of the head were obtained without contrast. A dose lowering technique was utilized adhering to the principles of ALARA. CT DOSE: 691.05 mGy.cm COMPARISON: None. FINDINGS: No acute intracranial hemorrhage, midline shift, intracranial mass, hydrocephalus, territorial ischemia or abnormal extra-axial collection. Age-related involutional changes. Cerebral vascular calcifications are noted. The calvarium is intact. Mild polypoid mucosal thickening of the inferior right frontal sinus. Moderate mucosal thickening of the ethmoid air cells. Mastoid air cells and middle ear cavities are clear. Soft tissues and orbits are within normal limits. Prior bilateral cataract repair. IMPRESSION: No acute intracranial abnormality. The above report was generated using voice recognition software. It may contain grammatical, syntax or spelling errors. Electronically signed by: Phillip Lr M.D. 04/24/2018 10:59 PM Laboratory Results 04/24/18 21:35 Red Blood Count 3.89, Mean Corpuscular Volume 94.1, Mean Corpuscular Hemoglobin 31.4, Mean Corpuscular Hemoglobin Concent 33.3, Mean Platelet Volume 9.9, Neutrophils (%) (Auto) 74.1, Lymphocytes (%) (Auto) 15.2, Monocytes (%) (Auto) 7.8, Eosinophils (%) (Auto) 2.3, Basophils (%) (Auto) 0.3, Neutrophils # (Auto) 4.81, Lymphocytes # (Auto) 0.99, Monocytes # (Auto) 0.51, Eosinophils # (Auto) 0.15, Basophils # (Auto) 0.02 04/24/18 21:35 Test 04/24/18 21:35 04/24/18 22:06 04/24/18 22:14 04/24/18 22:20 White Blood Count 6.50 K/uL (4.8-10.8) Red Blood Count 3.89 M/uL (4.7-6.1) Hemoglobin 12.2 g/dL (14.0-18.0) Hematocrit 36.6 % (42-52) Mean Corpuscular Volume 94.1 fL (80-100) Mean Corpuscular Hemoglobin 31.4 pg (25-34) Mean Corpuscular Hemoglobin Concent 33.3 g/dl (32-36) Platelet Count 151 K/uL (130-400) Mean Platelet Volume 9.9 fL (7.4-10.4) Neutrophils (%) (Auto) 74.1 % Lymphocytes (%) (Auto) 15.2 % Monocytes (%) (Auto) 7.8 % Eosinophils (%) (Auto) 2.3 % Basophils (%) (Auto) 0.3 % Neutrophils # (Auto) 4.81 K/uL (1.4-6.5) Lymphocytes # (Auto) 0.99 K/uL (1.2-3.4) Monocytes # (Auto) 0.51 K/uL (0.11-0.59) Eosinophils # (Auto) 0.15 K/uL (0-0.5) Basophils # (Auto) 0.02 K/uL (0-0.2) RDW Standard Deviation 48.2 fL (36.4-46.3) RDW Coefficient of Variation 14.1 % (11.5-14.5) Immature Granulocyte % (Auto) 0.3 % Immature Granulocyte # (Auto) 0.02 K/uL (0.00-0.02) Erythrocyte Sedimentation Rate 87 mm/hr (0-14) Prothrombin Time 11.4 SECONDS (9.0-12.0) Prothromb Time International Ratio 1.1 (0.9-1.1) Activated Partial Thromboplast Time 26.2 SECONDS (21.0-31.0) Partial Thromboplastin Ratio 1.0 Anion Gap 7.0 mmol/L (3-11) Est Creatinine Clear Calc Drug Dose 51.0 ml/min Estimated GFR () 57.5 Estimated GFR (Non- 49.6 BUN/Creatinine Ratio 18.9 (10-20) Calcium Level 8.8 mg/dl (8.5-10.1) Phosphorus Level 3.3 mg/dl (2.5-4.9) Magnesium Level 2.0 mg/dl (1.8-2.4) Total Bilirubin 1.1 mg/dl (0.2-1) Aspartate Amino Transf (AST/SGOT) 17 U/L (15-37) Alanine Aminotransferase (ALT/SGPT) 14 U/L (12-78) Alkaline Phosphatase 45 U/L (45-117) Total Creatine Kinase 64 U/L (39-308) Creatine Kinase MB < 1.0 ng/ml (0.5-3.6) Creatine Kinase MB Ratio (0-3.0) Troponin I 0.017 ng/ml (0-0.045) C-Reactive Protein 8.68 mg/dl (0-0.29) Pro-B-Type Natriuretic Peptide 1445 pg/ml (0-1800) Total Protein 7.7 gm/dl (6.4-8.2) Albumin 3.0 gm/dl (3.4-5.0) Globulin 4.7 gm/dl (2.5-4.0) Albumin/Globulin Ratio 0.6 (0.9-2) Lipase 67 U/L (73-393) Lyme Disease IgG Antibody NEG (NEG) Lyme Disease IgM Antibody NEG (NEG) Venous Blood pH 7.45 (7.36-7.41) Venous Blood Partial Pressure CO2 42 mmHg (38.0-50.0) Venous Blood Partial Pressure O2 41 mmHg Venous Blood HCO3 29 mmol/L Venous Blood Oxygen Saturation 75.1 % Venous Blood Base Excess 4.3 mEq/L Bedside Lactic Acid Venous 1.15 mmol/L (0.90-1.70) Urine Color RED Urine Appearance CLOUDY (CLEAR) Urine pH 5.5 (4.5-7.5) Urine Specific [place] 1.021 (1.000-1.030) Urine Protein 3+ (NEG) Urine Glucose (UA) NEG (NEG) Urine Ketones TRACE (NEG) Urine Occult Blood 3+ (NEG) Urine Nitrite NEG (NEG) Urine Bilirubin NEG (NEG) Urine Urobilinogen NEG (NEG) Urine Leukocyte Esterase SMALL (NEG) Urine WBC (Auto) >30 /hpf (0-5) Urine RBC (Auto) >30 /hpf (0-4) Urine Hyaline Casts (Auto) 1-5 /lpf (0-5) Urine Epithelial Cells (Auto) 0-5 /lpf (0-5) Urine Bacteria (Auto) NEG (NEG) Urine Pathogenic Casts /lpf (0) Laboratory results per my review. Medications Administered Medications (Trade) Dose Ordered Sig/Silverio Route Start Time Stop Time Status Last Admin Dose Admin Sodium Chloride 1,000 ml @ 999 mls/hr Q1H1M ONCE IV 04/24/18 21:29 04/24/18 22:29 DC 04/24/18 22:22 999 MLS/HR Acetaminophen (Tylenol Tab) 1,000 mg NOW STAT PO 04/24/18 23:11 04/24/18 23:12 DC 04/24/18 23:20 1,000 MG Piperacillin Sod/ Tazobactam Sod (Zosyn Iv) 4.5 gm NOW STAT IV 04/24/18 23:19 04/24/18 23:20 DC 04/24/18 23:23 4.5 GM ECG Per My Interpretation Indication: weakness Rate (beats per minute): 71 Rhythm: other (Ventricularly-paced) Findings: other (No [place] beats noted) Comparison ECG Date: 11/20/17 Change: no significant change ED Course 2125: The patient was evaluated in room C3. A complete history and physical examination were performed. 2128: NSS 1,000 ml @ 999 mls/hr IV 2217: Catheter was able to be placed in patient. 1: Tylenol Tab 1000mg PO 2319: Zosyn Iv 4.5gm IV 2329: I reevaluated the patient who is resting comfortably. 0003: Upon reevaluation, the patient will be further evaluated. I discussed results and treatment plan with him. He verbalizes agreement and understanding. I spoke with Dr. Abebe of [facility]. The patient will be evaluated for further management and care. Medical Decision Prior records/ancillary studies reviewed. Triage Nursing notes reviewed. The patient's history was concerning for fever. Differential diagnosis: Etiologies such as viral syndrome, otitis, pharyngitis, pneumonia, influenza, meningitis, urinary tract infection, sepsis, bacteremia, as well as others were entertained. The patient is an 83-year-old male who presented to the emergency department for an evaluation of altered mental status and fever. The patient had a very significant fever. He was treated with Tylenol and fluids in the emergency department. He was also started on IV antibiotics for presumed urinary tract infection based on his urinalysis. I discussed patient's laboratory and radiographic studies with him and his significant other. The patient was reevaluated multiple times. The patient continued to improve while he was in the emergency department however I was very concerned that his altered mental status could represent early sepsis. This reason I discussed his case with the on-call [facility] hospitalist group. They have agreed to evaluate patient in the emergency department for further management and disposition. Medication Reconcilliation Current Medication List: was personally reviewed by me Blood Pressure Screening Patient's blood pressure: Normal blood pressure Blood pressure disposition: Did not require urgent referral Consults Time Called: [phone] Consulting Physician: Dr. Abebe - [facility] Hospitalist Returned Call: [phone] I discussed the patient's case with Dr. Abebe. The patient will be evaluated for further management. Impression Primary Impression: Altered mental status Additional Impressions: Fever UTI (urinary tract infection) Scribe Attestation The scribe's documentation has been prepared under my direction and personally reviewed by me in its entirety. I confirm that the note above accurately reflects all work, treatment, procedures, and medical decision making performed by me. Departure Information Dispostion Being Evaluated By Hospitalist Referrals Shadi Cardenas M.D. (PCP) Forms HOME CARE DOCUMENTATION FORM, IMPORTANT VISIT INFORMATION Patient Instructions My [facility] Problem Qualifiers Primary Impression: Altered mental status Altered mental status type: somnolence Qualified Codes: R40.0 - Somnolence Additional Impressions: Fever Fever type: unspecified Qualified Codes: R50.9 - Fever, unspecified UTI (urinary tract infection) Urinary tract infection type: site unspecified Hematuria presence: with hematuria Qualified Codes: N39.0 - Urinary tract infection, site not specified ; R31.9 - Hematuria, unspecified
[2018-04-24 21:49] LABS: BASO % 0.3 %; BASO ABS # 0.02 K/uL (0-0.2); EOS % 2.3 %; EOS ABS # 0.15 K/uL (0-0.5); HEMATOCRIT 36.6 % (42-52); HEMOGLOBIN 12.2 g/dL (14.0-18.0); IG# 0.02 K/uL (0.00-0.02); LYMPH % 15.2 %; LYMPH ABS # 0.99 K/uL (1.2-3.4); MEAN CELL VOLUME 94.1 fL (80-100); MEAN CORPUSCULAR HEMOGLOBIN 31.4 pg (25-34); MEAN CORPUSCULAR HGB CONC 33.3 g/dl (32-36); MEAN PLATELET VOLUME 9.9 fL (7.4-10.4); MONO % 7.8 %; MONO ABS # 0.51 K/uL (0.11-0.59); NEUT % 74.1 %; NEUT ABS # 4.81 K/uL (1.4-6.5); PLATELET COUNT 151 K/uL (130-400); RED CELL DISTRIBUTION WIDTH CV 14.1 % (11.5-14.5); RED CELL DISTRIBUTION WIDTH SD 48.2 fL (36.4-46.3)
[2018-04-24 22:05] LABS: INR 1.1 (0.9-1.1); PTT PATIENT 26.2 SECONDS (21.0-31.0)
[2018-04-24 22:09] LABS: ALKALINE PHOSPHATASE 45 U/L (45-117); ALT/SGPT 14 U/L (12-78); AST/SGOT 17 U/L (15-37); BLOOD UREA NITROGEN 25 mg/dl (7-18); CALCIUM 8.8 mg/dl (8.5-10.1); CARBON DIOXIDE 29 mmol/L (21-32); CKMB < 1.0 ng/ml (0.5-3.6); CREATININE 1.31 mg/dl (0.60-1.40); GLUCOSE 106 mg/dl (70-99); LIPASE 67 U/L (73-393); PHOSPHORUS 3.3 mg/dl (2.5-4.9); SODIUM 138 mmol/L (136-145); TOTAL PROTEIN 7.7 gm/dl (6.4-8.2)
--- NOTE | 2018-04-24 22:34 | DIAGNOSTIC IMAGING REPORT ---
CHEST ONE VIEW PORTABLE HISTORY: 83 years-old Male Sepsis acute sepsis COMPARISON: Chest radiograph 11/18/2017, CTA chest 11/19/2017 TECHNIQUE: Portable AP view of the chest FINDINGS: Cardiac silhouette is at least moderately enlarged. Medial lung apices are secured by the patient's chin. Left subclavian pacer/AICD with leads appearing intact. Calcification of the thoracic aorta. Prior median sternotomy. Pulmonary vascular congestion without overt pulmonary edema. There is no pneumothorax, pleural effusion or lobar airspace consolidation. Mild chronic interstitial coarsening. Degenerative changes of the shoulders and spine. IMPRESSION: Cardiomegaly with pulmonary vascular congestion. The above report was generated using voice recognition software. It may contain grammatical, syntax or spelling errors. Electronically signed by: Phillip Lr M.D. 04/24/2018 10:33 PM Dictated Date/Time: 04/24/2018 10:31 PM
--- NOTE | 2018-04-24 23:00 | DIAGNOSTIC IMAGING REPORT ---
HEAD WITHOUT CONTRAST (CT) CLINICAL HISTORY: 83 years-old Male with altered MS. Acutely altered mental status TECHNIQUE: Multiple axial CT images of the head were obtained without contrast. A dose lowering technique was utilized adhering to the principles of ALARA. CT DOSE: 691.05 mGy.cm COMPARISON: None. FINDINGS: No acute intracranial hemorrhage, midline shift, intracranial mass, hydrocephalus, territorial ischemia or abnormal extra-axial collection. Age-related involutional changes. Cerebral vascular calcifications are noted. The calvarium is intact. Mild polypoid mucosal thickening of the inferior right frontal sinus. Moderate mucosal thickening of the ethmoid air cells. Mastoid air cells and middle ear cavities are clear. Soft tissues and orbits are within normal limits. Prior bilateral cataract repair. IMPRESSION: No acute intracranial abnormality. The above report was generated using voice recognition software. It may contain grammatical, syntax or spelling errors. Electronically signed by: Phillip Lr M.D. 04/24/2018 10:59 PM Dictated Date/Time: 04/24/2018 10:56 PM
[2018-04-24] MEDS ORDERED: ACETAMINOPHEN 500 MG TAB PO STA (23:11)
[2018-04-24] MEDS ORDERED: PIPERACILLIN/TAZOBACTAM 4.5 GM/100ML D5W IV STA (23:19)
--- NOTE | 2018-04-24 23:19 | DIAGNOSTIC IMAGING REPORT ---
ABDOMEN AND PELVIS CT WITHOUT CONTRAST CT DOSE: 1815.54 mGy.cm HISTORY: Acute fever fever TECHNIQUE: Multiaxial CT images of the abdomen and pelvis were performed without contrast. A dose lowering technique was utilized adhering to the principles of ALARA. COMPARISON STUDY: CTA chest 11/19/2017, chest radiographs 02/18/2010. FINDINGS: At least moderate multichamber cardiac enlargement with pacer/AICD leads noted overlying the heart. Coronary arterial calcifications with prior median sternotomy. Respiratory motion limits the dilation of the lung bases. Previously noted 6 mm solid nodule seen within the left lower lobe is likely present on image 45 series 3. Mild subsegmental dependent bibasilar atelectasis. Study is motion degraded. There is no pneumatosis or pneumoperitoneum. Lobulated hypodense lesion of the right hepatic lobe redemonstrated measuring 4.0 cm suggesting hepatic cyst. Liver is otherwise unremarkable. No intrahepatic biliary ductal dilation. Mild gallbladder distention. Mild generalized pancreatic atrophy. Spleen and adrenal glands are unremarkable. Mild bilateral perinephric stranding. Hypodense lesions about the bilateral kidneys compatible with renal cyst measuring up to 7.2 cm within the inferior pole right kidney. No renal calculi or obstructive uropathy. Indeterminate 1.4 cm area of increased density about the interpolar left kidney, image 177 series 3. Garcia catheter noted within the bladder lumen. There is a linear array of coarse calcifications within the inferior right aspect of the urinary bladder lumen. Mild wall thickening of the bladder with mild perivesicular stranding. The prostate is markedly enlarged with prostatic calcifications. Small fat filled bilateral hernias. Extensive calcification about the abdominal aorta with tortuosity. 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 No pathologically enlarged lymph nodes. There is no bowel obstruction. Colonic diverticulosis without diverticulitis. Terminal ileum and appendix appear normal. No ascites or mesenteric inflammatory changes. Soft tissues are within normal limits. 30% anterior endplate compression deformity of the T12 vertebral body, chronic in nature. IMPRESSION: 1. No bowel obstruction or focal bowel wall thickening. 2. Colonic diverticulosis without diverticulitis. 3. Marked prostamegaly with Garcia catheter within a decompressed bladder lumen. Linear array of coarse calcifications within the dependent bladder are seen suggesting a peripherally calcified lesion or bladder calculi. 4. Bilateral renal cysts with exophytic mildly hyperdense lesion of the interpolar left kidney, possibly reflecting a complex cyst. This could be further evaluated with renal ultrasound 5. 6 mm solid nodule of the lateral basal segment left lower lobe. 6. Additional findings as above. Electronically signed by: Phillip Lr M.D. 04/24/2018 11:18 PM Dictated Date/Time: 04/24/2018 11:02 PM
[2018-04-25] VITALS (7 sets, daily range): BP systolic 143–169; BP diastolic 66–77; PULSE 71; TEMP 36.8–38.7; O2SAT 91–95
[2018-04-25] MEDS ORDERED: TRMO115 TD (00:24)
[2018-04-25] MEDS ORDERED: CLR10 PO (00:27)
[2018-04-25] MEDS ORDERED: ALUMINUM/MAGNESIUM/SIMETH (MAALOX MAX) 30 ML UDC PO PRN (01:30)
[2018-04-25] MEDS ORDERED: ONDANSETRON INJ 2 MG/ML 2 ML VIAL IV PRN (01:30)
[2018-04-25] MEDS ORDERED: SODIUM CHLORIDE 0.9% 1000ML 1,000 ML IV SCH (01:30)
[2018-04-25] MEDS ORDERED: CARBOHYDRATES FOR HYPOGLYCEMIA PO PRN (02:30)
[2018-04-25] MEDS ORDERED: DEXTROSE 50% 50 ML SYR IV PRN (02:30)
[2018-04-25] MEDS ORDERED: GLUCOSE 40% GEL 15 GM TUBE PO PRN (02:30)
[2018-04-25] MEDS ORDERED: GLUCOSE 10 TABS/TUBE PO PRN (02:30)
[2018-04-25] MEDS ORDERED: GLUCAGON FOR INJ 1 MG VIAL IM PRN (02:30)
[2018-04-25] MEDS ORDERED: AZTREONAM IV 2,000 MG in DEXTROSE 5% 100ML 100 ML IV SCH (03:00)
--- NOTE | 2018-04-25 03:08 | HISTORY & PHYSICAL EXAMINATION ---
DATE OF ADMISSION: 04/25/2018 CHIEF COMPLAINT: Fevers, somewhat confused at home. HISTORY OF PRESENT ILLNESS: [id number]-old male with past medical history significant for CAD, BPH, hyperlipidemia, tachy-lorna syndrome, status post pacemaker, asthma, type 2 diabetes, hypertension, iliac artery aneurysm, AFib, ischemic cardiomyopathy with a systolic CHF and volume insufficiency, GERD, chronic kidney disease stage III presents with fever. The patient lives with his . The patient was treated for UTI a couple of weeks ago. These last 2 days patient is sleeping a lot and today he was having temperature of 102 when daughter checked, later it was 103 and the patient was brought in here. Patient is somewhat hard to hear and he was not wearing hearing aids and they thought that the patient was somewhat confused, but right now in the ER he is improved. He is doing fine. His hemodynamics are stable. Patient denies any headaches, no dizziness, no blurred vision, no runny nose, no cough, no sore throat, no chest pain, no shortness of breath, no nausea, no vomiting, no abdominal pain. Moved his bowels which were normal, no blood in the stools. He had some blood in the urine today. Patient states he gets on and off blood in the urine and he had cystoscopies in the past which were negative. No swelling in the legs. No rash. is worried if patient has Lyme disease because he was working in the yard and tits close to [place] with [place] in the area. His initial Lyme screen was negative in the ER. ALLERGIES: TO FELECIA INHIBITOR, PREDNISONE, SUDAFED, AND SULFA ANTIBIOTICS. PAST MEDICAL HISTORY: As mentioned above. PAST SURGICAL HISTORY: CABG, biventricular pacemaker, cataract surgeries. MEDICATIONS: Patient is on Plavix 75 mg p.o. daily, glimepiride 2 mg p.o. daily, metformin 850 mg p.o. b.i.d., Claritin 10 mg p.o. daily, Advair Diskus 250/50 one puff b.i.d., Zantac 150 mg p.o. b.i.d., Atrovent HFA 2 puffs 4 times a day, potassium chloride ER 20 mEq p.o. daily, Toprol-XL 50 mg p.o. daily, losartan 100 mg p.o. daily, digoxin 125 mcg p.o. daily and on also extra digoxin 0.125mg tablet 3 times a week, Lasix 80 mg three times a week and 40 mg four times a week, Zocor 40 mg p.o. daily, oxygen 2 liters 24 hours continuous, aspirin 81 mg p.o. daily, magnesium oxide 400 mg p.o. daily, multivitamin 1 tablet p.o. daily. FAMILY HISTORY: Significant for mother had melanoma and lung cancer with metastasis. SOCIAL HISTORY: and lives with his . Smoking, quit in 1969, smoked 1 pack a day for 20 years. Alcohol occasional. No drug use. REVIEW OF SYMPTOMS: As per HPI. Rest of the review of symptoms negative. PHYSICAL EXAMINATION: GENERAL: The patient is of moderate build, not in distress. VITAL SIGNS: Temperature 39.3, pulse 71, respiratory rate 22, blood pressure 132/55, oxygen 96% on 2 liters. HEENT: No pallor, no icterus. Pupils equal, round, and reactive to light. NECK: No JVD, no neck masses, no carotid bruit. CARDIOVASCULAR: S1, S2 heard, regular rate and rhythm, no murmur, no gallop. RESPIRATORY SYSTEM: Clear to auscultation bilaterally. No wheezing, no crackles. ABDOMEN: Soft, bowel sounds present. Nontender. No distention. CENTRAL NERVOUS SYSTEM: Cranial nerves II through XII are grossly intact. Nonfocal. EXTREMITIES: No edema, no erythema. LABORATORY DATA: Urinalysis positive for leukocyte esterase. WBC 6.5, hemoglobin 12.2, hematocrit 36.6, platelets 151. Sodium 138, potassium 4, chloride 102, bicarbonate 29, BUN 25, creatinine 1.3, serum glucose 106, point of care lactic acid is 1.15, calcium 8.8, phosphorus 3.3, magnesium 2, total bilirubin 1.1, AST 17, ALT 14, alkaline phosphatase 45, total creatinine kinase 64. CK-MB less than 0.1, troponin I of 0.017. C-reactive protein 8.6, lipase 67. PT 11.5, INR 1.1, APTT 26.2. Urinalysis, Lyme screen negative. CT of the head, no acute intracranial abnormalities seen. Chest x-ray, cardiomegaly with pulmonary vascular congestion. CT of the abdomen and pelvis, no bowel obstruction or focal bowel wall thickening, colonic diverticulosis without diverticulitis, marked prostatomegaly with Garcia catheter with a decompressed bladder lumen, bilateral renal cyst with exophytic mildly hyperdense lesion of the interpolar left kidney, possibly reflecting complex cyst. This could be further evaluated with a renal ultrasound. A 6-mm solid nodule noted in the left lower lobe. EKG: Ventricular paced rhythm with a rate of 71. No significant change. ASSESSMENT AND PLAN: This is an 83-year-old male who presents with a fever and some confusion. 1. Fever, confusion, encephalopathy metabolic . The patient was recently treated for acute urinary tract infection, urinalysis positive. We will place him on IV Azactam and there is question of tick bites. He was working in the yard which is close to the [place] and deer in it. We will also check peripheral smear for anaplasmosis. Empirically started on doxycycline and Azactam. Follow the blood culture and urine cultures. Gentle fluids. Monitor on the medical floor. 2. History of coronary artery disease status post coronary artery bypass graft. Continue aspirin, Plavix, Toprol-XL, losartan, and statin. Currently stable. 3. Diabetes. Hold metformin and glimepiride. Placed on Lantus and insulin sliding scale. Follow the blood sugars. 4. History of chronic obstructive pulmonary disease, chronic respiratory failure, on oxygen all the time. Continue Advair Diskus home inhaler. 5. Chronic systolic congestive heart failure. Recent echo in November 2017, EF was normal. Patient is on Losartan, digoxin, and Lasix which he will continue and on gentle fluids and monitor for volume overload. 6. Atrial fibrillation, on Toprol-XL and digoxin, which he will continue. Patient is not on anticoagulation as per records because of epistaxis and also patient not willing. Follows with cardiology. 7. Hyperlipidemia, on statins. 8. Hypertension, on home medications. 9. Complex renal cyst. follow renal ultrasound 10. Lung Nodule 6mm left lower lobe. Needs followup 11. Deep vein thrombosis prophylaxis, sequential compression devices and heparin subQ. DISPOSITION: Monitor on medical floor. Expect to discharge home and follow with family doctor. PT and OT prior to discharge. Social service to help with discharge planning. JAYDON
[2018-04-25] MEDS ORDERED: AZTREONAM CONSULT ACTIVE PRN (03:15)
[2018-04-25] MEDS: DOXYCYCLINE IV 100 MG in DEXTROSE 5% 100ML 100 ML IV SCH ×2 (03:39→15:59)
[2018-04-25] MEDS: HEPARIN SOD 5000 UNIT/0.5 ML CARP SQ SCH ×3 (05:56→20:39)
[2018-04-25 06:27] LABS: ALBUMIN 2.6 gm/dl (3.4-5.0); CALCIUM 8.2 mg/dl (8.5-10.1); CREATININE 1.3 mg/dl (0.60-1.40); POTASSIUM 3.8 mmol/L (3.5-5.1); TOTAL PROTEIN 7.1 gm/dl (6.4-8.2)
[2018-04-25 07:35] LABS: BASO % 0.2 %; BASO ABS # 0.02 K/uL (0-0.2); EOS % 1.6 %; EOS ABS # 0.13 K/uL (0-0.5); HEMOGLOBIN 12.5 g/dL (14.0-18.0); IG# 0.06 K/uL (0.00-0.02); LYMPH % 17.1 %; LYMPH ABS # 1.39 K/uL (1.2-3.4); MEAN CELL VOLUME 92.7 fL (80-100); MEAN CORPUSCULAR HEMOGLOBIN 31.3 pg (25-34); MONO % 18.6 %; MONO ABS # 1.51 K/uL (0.11-0.59); NEUT % 61.8 %; PLATELET COUNT 131 K/uL (130-400); RED CELL DISTRIBUTION WIDTH CV 14.1 % (11.5-14.5); RED CELL DISTRIBUTION WIDTH SD 47.6 fL (36.4-46.3); WHITE BLOOD COUNT 8.11 K/uL (4.8-10.8)
[2018-04-25 07:37] LABS: MEAN CORPUSCULAR HGB CONC 33.8 g/dl (32-36)
[2018-04-25] MEDS: LORATADINE 10 MG TAB PO SCH (07:49)
[2018-04-25] MEDS: MULTIVITAMIN TAB PO SCH (07:49)
[2018-04-25] MEDS: ASPIRIN 81 MG ECTAB PO SCH (07:49)
[2018-04-25] MEDS: LOSARTAN POTASSIUM 50 MG TAB PO SCH (07:49)
[2018-04-25] MEDS: POTASSIUM CHLORIDE 20 MEQ TABCR PO SCH (07:50)
[2018-04-25] MEDS: FUROSEMIDE 80 MG TAB PO SCH (07:50)
[2018-04-25] MEDS: METOPROLOL SUCC 50MG EXT REL TAB PO SCH (07:50)
[2018-04-25] MEDS: RANITIDINE HCL 150 MG TAB PO SCH ×2 (07:51→20:02)
[2018-04-25] MEDS: MAGNESIUM OXIDE 400 MG TAB PO SCH (07:51)
[2018-04-25] MEDS: FLUTICASONE/SALMETEROL 250/50 (ADVAIR) 14 PUFF/1 INHALER INH SCH ×2 (07:51→20:01)
[2018-04-25] MEDS: CLOPIDOGREL BISULFATE 75 MG TAB PO SCH (07:51)
--- NOTE | 2018-04-25 09:05 | DIAGNOSTIC IMAGING REPORT ---
EXAMINATION: RENAL ULTRASOUND CLINICAL HISTORY: renal cysts COMPARISON STUDY: CT scan of the abdomen pelvis dated 04/24/2018 FINDINGS: The right kidney measures 13.4 cm. The left kidney measures 12.9 cm. There is no evidence of hydronephrosis. There are multiple bilateral renal cysts. The largest on the right is located within the lower pole measuring 4.6 cm in diameter. The largest in the left is located within the lower pole measuring 7 cm. The indeterminate . 14 mm hyperdense interpolar left renal lesion was not visualized ultrasonographically. The bladder was empty. There is indwelling Garcia catheter. The prostate is enlarged measuring 67 mm transversely IMPRESSION : 1. Multiple bilateral renal cysts. No evidence of hydronephrosis 2. The indeterminate 14 mm hyperdense interpolar left renal lesion described on the recent CT scan was not visualized ultrasonographically 3. Prostamegaly Electronically signed by: Ulysses Haji M.D. 04/25/2018 9:04 AM Dictated Date/Time: 04/25/2018 8:59 AM
[2018-04-25] MEDS: INSULIN GLARGINE SOLOSTAR 100 UNITS/ML 3 ML PEN SC SCH (09:18)
[2018-04-25] MEDS: INSULIN ASPART 100 UNITS/ML 3 ML PEN SC SCH ×4 (09:18→20:38)
[2018-04-25] MEDS: TRIAMCINOLONE ACET 0.1% OINT 15 GM TUBE EXT SCH ×2 (09:19→20:00)
[2018-04-25] MEDS: AZTREONAM IV 1,000 MG in DEXTROSE 5% 100ML 100 ML IV SCH ×3 (11:25→18:57)
[2018-04-25] MEDS: ACETAMINOPHEN 325 MG TAB PO PRN ×2 (13:59→20:50)
[2018-04-25] MEDS: DIGOXIN 0.125 MG TAB PO SCH (16:00)
[2018-04-25] MEDS ORDERED: DIGOXIN 0.125 MG TAB PO SCH (16:00)
[2018-04-25] MEDS ORDERED: PHENAZOPYRIDINE HCL 200 MG TAB PO STA (16:08)
--- NOTE | 2018-04-25 16:30 | Progress Note ---
Internal Med Progress Note Date of Service: Apr 25, 2018. Provider Documentation: SUBJECTIVE: The patient was seen and examined in medical floor He was admitted yesterday with fever, no abdominal pain and acute confusion likely secondary to UTI Still complains spasmodic pain Denies any fever or chills, any nausea vomiting OBJECTIVE: Vital Signs-as noted below Exam: General-no distress at rest Eyes-normal ENT-normal Neck-supple Lungs-decreased breath sounds at bases but no crackles Heart-regular, no murmur Abdomen-benign, soft, mildly tender hypogastrium, renal angles are not tender Extremities-no edema Neuro-alert, awake and oriented Generally weak Lab data as noted below. ASSESSMENT & PLAN: He is an 83-year-old male who presents with a fever and some confusion. Metabolic Encephalopathy secondary to UTI Presented with Fever, confusion, . The patient was recently treated for acute urinary tract infection, urinalysis positive. Has been IV Azactam and there is question of tick bites. Check peripheral smear for anaplasmosis. Empirically started on doxycycline and Azactam. Follow the blood culture and urine cultures. Gentle fluids S/P Garcia Catheter US and CT -Multiple Renal Cyst ,no hydronephrosis Pyridium is added to relieve spasmodic pain History of coronary artery disease status post coronary artery bypass graft. Continue aspirin, Plavix, Toprol-XL, losartan, and statin. Currently stable. Diabetes. Hold metformin and glimepiride. Placed on Lantus and insulin sliding scale. Follow the blood sugars. History of chronic obstructive pulmonary disease, -chronic respiratory failure, on oxygen all the time. -Continue Advair Diskus home inhaler. -No acute symptoms Chronic systolic congestive heart failure. Recent echo in November 2017, EF was normal. Patient is on Losartan, digoxin, and Lasix which he will continue and on gentle fluids and monitor for volume overload. Atrial fibrillation, on Toprol-XL and digoxin, which he will continue. Patient is not on anticoagulation as per records because of epistaxis and also patient not willing. Follows with cardiology. Hyperlipidemia, on statins. Hypertension, on home medications. Complex renal cyst. follow renal ultrasound Lung Nodule 6mm left lower lobe. Needs followup Deep vein thrombosis prophylaxis, Heparin SQ Vital Signs: Date Time Temp Pulse Resp B/P (MAP) Pulse Ox O2 Delivery O2 Flow Rate FiO2 04/25/18 16:00 71 04/25/18 16:00 71 04/25/18 15:28 36.9 71 20 146/66 (92) 91 Room Air 04/25/18 13:58 38.4 04/25/18 07:40 Room Air 04/25/18 07:02 36.8 71 18 169/66 (100) 95 Room Air 04/25/18 02:59 37.0 71 16 143/77 95 Room Air 04/25/18 02:20 70 16 138/66 95 04/25/18 02:10 37.1 04/25/18 02:00 70 16 138/66 95 Nasal Cannula 2.0 04/25/18 01:10 71 04/25/18 01:00 77 22 132/55 96 Nasal Cannula 2.0 04/25/18 00:48 148/51 04/25/18 00:09 72 18 96 04/25/18 00:01 148/51 04/24/18 23:12 39.3 04/24/18 23:09 71 12 95 04/24/18 23:04 155/74 04/24/18 22:31 71 16 96 04/24/18 22:19 159/60 04/24/18 22:01 73 25 97 Nasal Cannula 3.0 04/24/18 21:31 72 29 90 Room Air 04/24/18 21:23 71 04/24/18 21:15 180/78 04/24/18 21:10 40.0 91 29 180/78 94 Room Air Lab Results: Results Past 24 Hours Test 04/24/18 21:35 04/24/18 22:06 04/24/18 22:14 04/24/18 22:20 Range/Units White Blood Count 6.50 4.8-10.8 K/uL Red Blood Count 3.89 4.7-6.1 M/uL Hemoglobin 12.2 14.0-18.0 g/dL Hematocrit 36.6 42-52 % Mean Corpuscular Volume 94.1 80-100 fL Mean Corpuscular Hemoglobin 31.4 25-34 pg Mean Corpuscular Hemoglobin Concent 33.3 32-36 g/dl Platelet Count 151 130-400 K/uL Mean Platelet Volume 9.9 7.4-10.4 fL Neutrophils (%) (Auto) 74.1 % Lymphocytes (%) (Auto) 15.2 % Monocytes (%) (Auto) 7.8 % Eosinophils (%) (Auto) 2.3 % Basophils (%) (Auto) 0.3 % Neutrophils # (Auto) 4.81 1.4-6.5 K/uL Lymphocytes # (Auto) 0.99 1.2-3.4 K/uL Monocytes # (Auto) 0.51 0.11-0.59 K/uL Eosinophils # (Auto) 0.15 0-0.5 K/uL Basophils # (Auto) 0.02 0-0.2 K/uL RDW Standard Deviation 48.2 36.4-46.3 fL RDW Coefficient of Variation 14.1 11.5-14.5 % Immature Granulocyte % (Auto) 0.3 % Immature Granulocyte # (Auto) 0.02 0.00-0.02 K/uL Erythrocyte Sedimentation Rate 87 0-14 mm/hr Prothrombin Time 11.4 9.0-12.0 SECONDS Prothromb Time International Ratio 1.1 0.9-1.1 Activated Partial Thromboplast Time 26.2 21.0-31.0 SECONDS Partial Thromboplastin Ratio 1.0 Sodium Level 138 136-145 mmol/L Potassium Level 4.0 3.5-5.1 mmol/L Chloride Level 102 98-107 mmol/L Carbon Dioxide Level 29 21-32 mmol/L Anion Gap 7.0 3-11 mmol/L Blood Urea Nitrogen 25 7-18 mg/dl Creatinine 1.31 0.60-1.40 mg/dl Est Creatinine Clear Calc Drug Dose 51.0 ml/min Estimated GFR () 57.5 Estimated GFR (Non- 49.6 BUN/Creatinine Ratio 18.9 10-20 Random Glucose 106 70-99 mg/dl Calcium Level 8.8 8.5-10.1 mg/dl Phosphorus Level 3.3 2.5-4.9 mg/dl Magnesium Level 2.0 1.8-2.4 mg/dl Total Bilirubin 1.1 0.2-1 mg/dl Aspartate Amino Transf (AST/SGOT) 17 15-37 U/L Alanine Aminotransferase (ALT/SGPT) 14 12-78 U/L Alkaline Phosphatase 45 45-117 U/L Total Creatine Kinase 64 39-308 U/L Creatine Kinase MB < 1.0 0.5-3.6 ng/ml Creatine Kinase MB Ratio 0-3.0 Troponin I 0.017 0-0.045 ng/ml C-Reactive Protein 8.68 0-0.29 mg/dl Pro-B-Type Natriuretic Peptide 1445 0-1800 pg/ml Total Protein 7.7 6.4-8.2 gm/dl Albumin 3.0 3.4-5.0 gm/dl Globulin 4.7 2.5-4.0 gm/dl Albumin/Globulin Ratio 0.6 0.9-2 Lipase 67 73-393 U/L Lyme Disease IgG Antibody NEG NEG Lyme Disease IgM Antibody NEG NEG Venous Blood pH 7.45 7.36-7.41 Venous Blood Partial Pressure CO2 42 38.0-50.0 mmHg Venous Blood Partial Pressure O2 41 mmHg Venous Blood HCO3 29 mmol/L Venous Blood Oxygen Saturation 75.1 % Venous Blood Base Excess 4.3 mEq/L Bedside Lactic Acid Venous 1.15 0.90-1.70 mmol/L Urine Color RED Urine Appearance CLOUDY CLEAR Urine pH 5.5 4.5-7.5 Urine Specific [place] 1.021 1.000-1.030 Urine Protein 3+ NEG Urine Glucose (UA) NEG NEG Urine Ketones TRACE NEG Urine Occult Blood 3+ NEG Urine Nitrite NEG NEG Urine Bilirubin NEG NEG Urine Urobilinogen NEG NEG Urine Leukocyte Esterase SMALL NEG Urine WBC (Auto) >30 0-5 /hpf Urine RBC (Auto) >30 0-4 /hpf Urine Hyaline Casts (Auto) 1-5 0-5 /lpf Urine Epithelial Cells (Auto) 0-5 0-5 /lpf Urine Bacteria (Auto) NEG NEG Urine Pathogenic Casts 0 /lpf Test 04/25/18 03:24 04/25/18 05:32 04/25/18 07:03 04/25/18 07:46 Range/Units Bedside Glucose 151 70-99 mg/dl Sodium Level 138 136-145 mmol/L Potassium Level 3.8 3.5-5.1 mmol/L Chloride Level 105 98-107 mmol/L Carbon Dioxide Level 27 21-32 mmol/L Anion Gap 6.0 3-11 mmol/L Blood Urea Nitrogen 25 7-18 mg/dl Creatinine 1.30 0.60-1.40 mg/dl Est Creatinine Clear Calc Drug Dose 51.4 ml/min Estimated GFR () 58.1 Estimated GFR (Non- 50.1 BUN/Creatinine Ratio 19.5 10-20 Random Glucose 146 70-99 mg/dl Calcium Level 8.2 8.5-10.1 mg/dl Total Bilirubin 1.3 0.2-1 mg/dl Aspartate Amino Transf (AST/SGOT) 15 15-37 U/L Alanine Aminotransferase (ALT/SGPT) 14 12-78 U/L Alkaline Phosphatase 44 45-117 U/L Total Protein 7.1 6.4-8.2 gm/dl Albumin 2.6 3.4-5.0 gm/dl Globulin 4.5 2.5-4.0 gm/dl Albumin/Globulin Ratio 0.6 0.9-2 White Blood Count 8.11 4.8-10.8 K/uL Red Blood Count 3.99 4.7-6.1 M/uL Hemoglobin 12.5 14.0-18.0 g/dL Hematocrit 37.0 42-52 % Mean Corpuscular Volume 92.7 80-100 fL Mean Corpuscular Hemoglobin 31.3 25-34 pg Mean Corpuscular Hemoglobin Concent 33.8 32-36 g/dl Platelet Count 131 130-400 K/uL Mean Platelet Volume 10.0 7.4-10.4 fL Neutrophils (%) (Auto) 61.8 % Lymphocytes (%) (Auto) 17.1 % Monocytes (%) (Auto) 18.6 % Eosinophils (%) (Auto) 1.6 % Basophils (%) (Auto) 0.2 % Neutrophils # (Auto) 5.00 1.4-6.5 K/uL Lymphocytes # (Auto) 1.39 1.2-3.4 K/uL Monocytes # (Auto) 1.51 0.11-0.59 K/uL Eosinophils # (Auto) 0.13 0-0.5 K/uL Basophils # (Auto) 0.02 0-0.2 K/uL RDW Standard Deviation 47.6 36.4-46.3 fL RDW Coefficient of Variation 14.1 11.5-14.5 % Immature Granulocyte % (Auto) 0.7 % Immature Granulocyte # (Auto) 0.06 0.00-0.02 K/uL Peripheral Blood Smear Path Consult Test 04/25/18 07:57 04/25/18 11:35 Range/Units Bedside Glucose 150 193 70-99 mg/dl Microbiology Results 04/24/18 Blood Culture, Received Pending 04/24/18 Blood Culture, Received Pending 04/24/18 Urine Culture - Preliminary, Resulted Gram Negative Bacilli
[2018-04-25] MEDS: SIMVASTATIN 40 MG TAB PO SCH (20:02)
[2018-04-25] MEDS ORDERED: IBUPROFEN 200 MG TAB PO ONE (22:00)
[2018-04-26 00:06] VITALS: BP 138/62; PULSE 69; TEMP 37.3; O2SAT 98
[2018-04-26] MEDS: AZTREONAM IV 1,000 MG in DEXTROSE 5% 100ML 100 ML IV SCH (04:09)
[2018-04-26] MEDS: DOXYCYCLINE IV 100 MG in DEXTROSE 5% 100ML 100 ML IV SCH (06:14)
[2018-04-26] MEDS: HEPARIN SOD 5000 UNIT/0.5 ML CARP SQ SCH ×3 (06:17→20:33)
[2018-04-26] MEDS: PHENAZOPYRIDINE HCL 200 MG TAB PO PRN ×2 (06:21→20:24)
[2018-04-26 06:47] LABS: BASO % 0.2 %; BASO ABS # 0.01 K/uL (0-0.2); EOS % 2.2 %; EOS ABS # 0.11 K/uL (0-0.5); HEMATOCRIT 33.7 % (42-52); HEMOGLOBIN 11.2 g/dL (14.0-18.0); IG# 0.01 K/uL (0.00-0.02); LYMPH % 17.5 %; LYMPH ABS # 0.88 K/uL (1.2-3.4); MEAN CELL VOLUME 94.1 fL (80-100); MEAN CORPUSCULAR HEMOGLOBIN 31.3 pg (25-34); MEAN CORPUSCULAR HGB CONC 33.2 g/dl (32-36); MEAN PLATELET VOLUME 9.6 fL (7.4-10.4); MONO % 16.5 %; MONO ABS # 0.83 K/uL (0.11-0.59); NEUT % 63.4 %; NEUT ABS # 3.18 K/uL (1.4-6.5); PLATELET COUNT 119 K/uL (130-400); RED CELL DISTRIBUTION WIDTH CV 14.1 % (11.5-14.5); RED CELL DISTRIBUTION WIDTH SD 48.7 fL (36.4-46.3); WHITE BLOOD COUNT 5.02 K/uL (4.8-10.8)
[2018-04-26 07:28] LABS: ALBUMIN 2.5 gm/dl (3.4-5.0); CREATININE 1.22 mg/dl (0.60-1.40); POTASSIUM 3.4 mmol/L (3.5-5.1); TOTAL PROTEIN 6.9 gm/dl (6.4-8.2)
[2018-04-26 07:32] VITALS: BP 157/74; PULSE 69; TEMP 36.3; O2SAT 90
[2018-04-26] MEDS: LOSARTAN POTASSIUM 50 MG TAB PO SCH (08:40)
[2018-04-26] MEDS: LORATADINE 10 MG TAB PO SCH (08:40)
[2018-04-26] MEDS: METOPROLOL SUCC 50MG EXT REL TAB PO SCH (08:41)
[2018-04-26] MEDS: CLOPIDOGREL BISULFATE 75 MG TAB PO SCH (08:41)
[2018-04-26] MEDS: POTASSIUM CHLORIDE 20 MEQ TABCR PO SCH (08:41)
[2018-04-26] MEDS: RANITIDINE HCL 150 MG TAB PO SCH ×2 (08:41→20:22)
[2018-04-26] MEDS: ASPIRIN 81 MG ECTAB PO SCH (08:41)
[2018-04-26] MEDS: FLUTICASONE/SALMETEROL 250/50 (ADVAIR) 14 PUFF/1 INHALER INH SCH ×2 (08:41→19:49)
[2018-04-26] MEDS: MULTIVITAMIN TAB PO SCH (08:41)
[2018-04-26] MEDS: MAGNESIUM OXIDE 400 MG TAB PO SCH (08:41)
[2018-04-26] MEDS: TRIAMCINOLONE ACET 0.1% OINT 15 GM TUBE EXT SCH ×2 (08:42→19:49)
[2018-04-26] MEDS: FUROSEMIDE 40 MG TAB PO SCH (08:42)
[2018-04-26] MEDS: INSULIN ASPART 100 UNITS/ML 3 ML PEN SC SCH ×4 (08:54→20:33)
[2018-04-26] MEDS: INSULIN GLARGINE SOLOSTAR 100 UNITS/ML 3 ML PEN SC SCH (08:54)
[2018-04-26] MEDS ORDERED: POTASSIUM CHLORIDE 10 MEQ TABCR PO ONE (11:00)
[2018-04-26] MEDS ORDERED: CEPHALEXIN MONOHYDRATE 500 MG CAP PO ONE (11:00)
[2018-04-26] MEDS: CEPHALEXIN MONOHYDRATE 500 MG CAP PO SCH ×2 (13:07→19:49)
[2018-04-26 15:37] VITALS: BP 173/93; PULSE 75; TEMP 36.5; O2SAT 94
--- NOTE | 2018-04-26 15:43 | Progress Note ---
Internal Med Progress Note Date of Service: Apr 26, 2018. Provider Documentation: SUBJECTIVE: The patient was seen and examined in medical floor He was admitted yesterday with fever, no abdominal pain and acute confusion likely secondary to UTI Still complains spasmodic pain Denies any fever or chills, any nausea vomiting 04/26: Denies any more pain in bladder Clinical not better and wants to go home No fever/hypogastric and/or back pain reported OBJECTIVE: Vital Signs-as noted below Exam: General-no distress at rest Eyes-normal ENT-normal Neck-supple Lungs-decreased breath sounds at bases but no crackles Heart-regular, no murmur Abdomen-benign, soft, mildly tender hypogastrium, renal angles are not tender Extremities-no edema Neuro-alert, awake and oriented Generally weak Lab data as noted below. ASSESSMENT & PLAN: He is an 83-year-old male who presents with a fever and some confusion. Metabolic Encephalopathy secondary to UTI Presented with Fever, confusion, . The patient was recently treated for acute urinary tract infection, urinalysis positive. Has been IV Azactam and there is question of tick bites. Check peripheral smear for anaplasmosis. Empirically started on doxycycline and Azactam. Follow the blood culture and urine cultures. S/P Garcia Catheter US and CT -Multiple Renal Cyst ,no hydronephrosis Pyridium is added to relieve spasmodic pain Pain is better controlled Urine is positive for E. coli which is pansensitive Antibiotics changed to oral Keflex, discontinue Garcia Will be discharged tomorrow History of coronary artery disease status post coronary artery bypass graft. Continue aspirin, Plavix, Toprol-XL, losartan, and statin. Currently stable. Diabetes. Hold metformin and glimepiride. Placed on Lantus and insulin sliding scale. Follow the blood sugars. History of chronic obstructive pulmonary disease, -chronic respiratory failure, on oxygen all the time. -Continue Advair Diskus home inhaler. -No acute symptoms Chronic systolic congestive heart failure. Recent echo in November 2017, EF was normal. Patient is on Losartan, digoxin, and Lasix which he will continue and on gentle fluids and monitor for volume overload. No symptoms of heart failure and OR edema Atrial fibrillation, on Toprol-XL and digoxin, which he will continue. Patient is not on anticoagulation as per records because of epistaxis and also patient not willing. Follows with cardiology. Rate is controlled without any issue Hyperlipidemia, on statins. Hypertension, on home medications. Complex renal cyst. follow renal ultrasound Lung Nodule 6mm left lower lobe. Needs followup Deep vein thrombosis prophylaxis, Heparin SQ Disposition Discharged home tomorrow Vital Signs: Date Time Temp Pulse Resp B/P (MAP) Pulse Ox O2 Delivery O2 Flow Rate FiO2 04/26/18 15:37 36.5 75 18 173/93 (119) 94 Room Air 04/26/18 08:45 Room Air 04/26/18 07:32 36.3 69 18 157/74 (101) 90 Room Air 04/26/18 00:06 37.3 69 18 138/62 (87) 98 Nasal Cannula 2.0 04/26/18 00:00 Nasal Cannula 2.0 04/25/18 21:55 38.7 04/25/18 20:48 38.6 04/25/18 16:00 92 Room Air 04/25/18 16:00 71 04/25/18 16:00 71 Lab Results: Results Past 24 Hours Test 04/25/18 17:18 04/25/18 20:24 04/26/18 06:30 04/26/18 08:01 Range/Units Bedside Glucose 96 146 106 70-99 mg/dl White Blood Count 5.02 4.8-10.8 K/uL Red Blood Count 3.58 4.7-6.1 M/uL Hemoglobin 11.2 14.0-18.0 g/dL Hematocrit 33.7 42-52 % Mean Corpuscular Volume 94.1 80-100 fL Mean Corpuscular Hemoglobin 31.3 25-34 pg Mean Corpuscular Hemoglobin Concent 33.2 32-36 g/dl Platelet Count 119 130-400 K/uL Mean Platelet Volume 9.6 7.4-10.4 fL Neutrophils (%) (Auto) 63.4 % Lymphocytes (%) (Auto) 17.5 % Monocytes (%) (Auto) 16.5 % Eosinophils (%) (Auto) 2.2 % Basophils (%) (Auto) 0.2 % Neutrophils # (Auto) 3.18 1.4-6.5 K/uL Lymphocytes # (Auto) 0.88 1.2-3.4 K/uL Monocytes # (Auto) 0.83 0.11-0.59 K/uL Eosinophils # (Auto) 0.11 0-0.5 K/uL Basophils # (Auto) 0.01 0-0.2 K/uL RDW Standard Deviation 48.7 36.4-46.3 fL RDW Coefficient of Variation 14.1 11.5-14.5 % Immature Granulocyte % (Auto) 0.2 % Immature Granulocyte # (Auto) 0.01 0.00-0.02 K/uL Sodium Level 140 136-145 mmol/L Potassium Level 3.4 3.5-5.1 mmol/L Chloride Level 105 98-107 mmol/L Carbon Dioxide Level 29 21-32 mmol/L Anion Gap 6.0 3-11 mmol/L Blood Urea Nitrogen 27 7-18 mg/dl Creatinine 1.22 0.60-1.40 mg/dl Est Creatinine Clear Calc Drug Dose 54.8 ml/min Estimated GFR () 62.7 Estimated GFR (Non- 54.1 BUN/Creatinine Ratio 22.4 10-20 Random Glucose 101 70-99 mg/dl Calcium Level 8.0 8.5-10.1 mg/dl Magnesium Level 2.3 1.8-2.4 mg/dl Total Bilirubin 0.8 0.2-1 mg/dl Aspartate Amino Transf (AST/SGOT) 17 15-37 U/L Alanine Aminotransferase (ALT/SGPT) 18 12-78 U/L Alkaline Phosphatase 45 45-117 U/L Total Protein 6.9 6.4-8.2 gm/dl Albumin 2.5 3.4-5.0 gm/dl Globulin 4.4 2.5-4.0 gm/dl Albumin/Globulin Ratio 0.6 0.9-2 Test 04/26/18 11:20 Range/Units Bedside Glucose 181 70-99 mg/dl
[2018-04-26] MEDS: DIGOXIN 0.125 MG TAB PO SCH (15:59)
[2018-04-26 16:01] VITALS: BP 145/67
[2018-04-26 17:53] VITALS: TEMP 37.5
[2018-04-26] MEDS: SIMVASTATIN 40 MG TAB PO SCH (19:51)
[2018-04-27 00:09] VITALS: BP 137/56; PULSE 69; TEMP 38.1; O2SAT 94
[2018-04-27 00:11] VITALS: TEMP 37.7
[2018-04-27] MEDS: HEPARIN SOD 5000 UNIT/0.5 ML CARP SQ SCH ×2 (06:25→15:12)
[2018-04-27 07:18] VITALS: BP 138/68; PULSE 78; TEMP 37.8; O2SAT 94
[2018-04-27 08:48] LABS: BASO % 0.4 %; BASO ABS # 0.02 K/uL (0-0.2); EOS % 5.4 %; EOS ABS # 0.27 K/uL (0-0.5); HEMATOCRIT 30.9 % (42-52); HEMOGLOBIN 10.2 g/dL (14.0-18.0); IG# 0.01 K/uL (0.00-0.02); LYMPH % 29.9 %; LYMPH ABS # 1.49 K/uL (1.2-3.4); MEAN CELL VOLUME 93.4 fL (80-100); MEAN CORPUSCULAR HEMOGLOBIN 30.8 pg (25-34); MEAN PLATELET VOLUME 9.6 fL (7.4-10.4); MONO % 15.9 %; MONO ABS # 0.79 K/uL (0.11-0.59); NEUT % 48.2 %; PLATELET COUNT 126 K/uL (130-400); RED CELL DISTRIBUTION WIDTH CV 13.9 % (11.5-14.5); RED CELL DISTRIBUTION WIDTH SD 47.4 fL (36.4-46.3); WHITE BLOOD COUNT 4.98 K/uL (4.8-10.8)
[2018-04-27 09:18] LABS: CALCIUM 8.3 mg/dl (8.5-10.1); CREATININE 0.98 mg/dl (0.60-1.40); POTASSIUM 3.8 mmol/L (3.5-5.1)
[2018-04-27] MEDS: TRIAMCINOLONE ACET 0.1% OINT 15 GM TUBE EXT SCH (09:37)
[2018-04-27] MEDS: MAGNESIUM OXIDE 400 MG TAB PO SCH (09:41)
[2018-04-27] MEDS: CEPHALEXIN MONOHYDRATE 500 MG CAP PO SCH ×2 (09:41→15:11)
[2018-04-27] MEDS: RANITIDINE HCL 150 MG TAB PO SCH (09:41)
[2018-04-27] MEDS: ASPIRIN 81 MG ECTAB PO SCH (09:42)
[2018-04-27] MEDS: METOPROLOL SUCC 50MG EXT REL TAB PO SCH (09:42)
[2018-04-27] MEDS: FLUTICASONE/SALMETEROL 250/50 (ADVAIR) 14 PUFF/1 INHALER INH SCH (09:43)
[2018-04-27] MEDS: POTASSIUM CHLORIDE 20 MEQ TABCR PO SCH (09:44)
[2018-04-27] MEDS: INSULIN ASPART 100 UNITS/ML 3 ML PEN SC SCH ×2 (09:52→12:57)
[2018-04-27] MEDS: INSULIN GLARGINE SOLOSTAR 100 UNITS/ML 3 ML PEN SC SCH (09:52)
[2018-04-27 10:17] VITALS: TEMP 36.4
[2018-04-27] MEDS: CLOPIDOGREL BISULFATE 75 MG TAB PO SCH (10:19)
[2018-04-27] MEDS: FUROSEMIDE 40 MG TAB PO SCH (10:19)
[2018-04-27] MEDS: LORATADINE 10 MG TAB PO SCH (10:19)
[2018-04-27] MEDS: MULTIVITAMIN TAB PO SCH (10:20)
[2018-04-27] MEDS: LOSARTAN POTASSIUM 50 MG TAB PO SCH (10:20)
[2018-04-27] MEDS: FUROSEMIDE 80 MG TAB PO SCH (10:21)
--- NOTE | 2018-04-27 12:40 | Progress Note ---
Internal Med Progress Note Date of Service: Apr 27, 2018. Provider Documentation: SUBJECTIVE: The patient was seen and examined in medical floor He was admitted yesterday with fever, no abdominal pain and acute confusion likely secondary to UTI Still complains spasmodic pain Denies any fever or chills, any nausea vomiting 04/26: Denies any more pain in bladder Clinical not better and wants to go home No fever/hypogastric and/or back pain reported 04/27 Clinically a lot better Denies any symptoms and ambulating well Wants to be discharged OBJECTIVE: Vital Signs-as noted below Exam: General-no distress at rest No abdominal pain,nausea and or vomiting Eyes-normal ENT-normal Neck-supple Lungs-decreased breath sounds at bases but no crackles Heart-regular, no murmur Abdomen-benign, soft, mildly tender hypogastrium, renal angles are not tender Extremities-no edema Neuro-alert, awake and oriented Generally weak Lab data as noted below. ASSESSMENT & PLAN: He is an 83-year-old male who presents with a fever and some confusion. Metabolic Encephalopathy secondary to UTI Presented with Fever, confusion, . The patient was recently treated for acute urinary tract infection, urinalysis positive. Has been IV Azactam and there is question of tick bites. Check peripheral smear for anaplasmosis. Empirically started on doxycycline and Azactam. Follow the blood culture and urine cultures. S/P Garcia Catheter US and CT -Multiple Renal Cyst ,no hydronephrosis Pyridium is added to relieve spasmodic pain Pain is better controlled Urine is positive for E. coli which is pansensitive Antibiotics changed to oral Keflex, discontinue Garcia Passing Urine normally No Complaints Will discharge home today History of coronary artery disease status post coronary artery bypass graft. Continue aspirin, Plavix, Toprol-XL, losartan, and statin. Currently stable. Diabetes. Hold metformin and glimepiride. Placed on Lantus and insulin sliding scale. Follow the blood sugars. History of chronic obstructive pulmonary disease, -chronic respiratory failure, on oxygen all the time. -Continue Advair Diskus home inhaler. -No acute symptoms Chronic systolic congestive heart failure. Recent echo in November 2017, EF was normal. Patient is on Losartan, digoxin, and Lasix which he will continue and on gentle fluids and monitor for volume overload. No symptoms of heart failure and OR edema No leg swelling Atrial fibrillation, on Toprol-XL and digoxin, which he will continue. Patient is not on anticoagulation as per records because of epistaxis and also patient not willing. Follows with cardiology. Rate is controlled without any issue Hyperlipidemia, on statins. Hypertension, on home medications. Complex renal cyst. follow renal ultrasound Lung Nodule 6mm left lower lobe. Needs followup Deep vein thrombosis prophylaxis, Heparin SQ Disposition Discharge home today Vital Signs: Date Time Temp Pulse Resp B/P (MAP) Pulse Ox O2 Delivery O2 Flow Rate FiO2 04/27/18 10:17 36.4 04/27/18 07:18 37.8 78 20 138/68 (91) 94 Room Air 04/27/18 00:11 37.7 04/27/18 00:09 38.1 69 20 137/56 (83) 94 2.0 04/27/18 00:00 Nasal Cannula 2.0 04/26/18 17:53 37.5 04/26/18 16:01 145/67 (93) 04/26/18 16:00 Room Air 04/26/18 15:59 76 04/26/18 15:37 36.5 75 18 173/93 (119) 94 Room Air Lab Results: Results Past 24 Hours Test 04/26/18 16:46 04/26/18 20:02 04/27/18 07:55 04/27/18 08:24 Range/Units Bedside Glucose 115 143 108 70-99 mg/dl White Blood Count 4.98 4.8-10.8 K/uL Red Blood Count 3.31 4.7-6.1 M/uL Hemoglobin 10.2 14.0-18.0 g/dL Hematocrit 30.9 42-52 % Mean Corpuscular Volume 93.4 80-100 fL Mean Corpuscular Hemoglobin 30.8 25-34 pg Mean Corpuscular Hemoglobin Concent 33.0 32-36 g/dl Platelet Count 126 130-400 K/uL Mean Platelet Volume 9.6 7.4-10.4 fL Neutrophils (%) (Auto) 48.2 % Lymphocytes (%) (Auto) 29.9 % Monocytes (%) (Auto) 15.9 % Eosinophils (%) (Auto) 5.4 % Basophils (%) (Auto) 0.4 % Neutrophils # (Auto) 2.40 1.4-6.5 K/uL Lymphocytes # (Auto) 1.49 1.2-3.4 K/uL Monocytes # (Auto) 0.79 0.11-0.59 K/uL Eosinophils # (Auto) 0.27 0-0.5 K/uL Basophils # (Auto) 0.02 0-0.2 K/uL RDW Standard Deviation 47.4 36.4-46.3 fL RDW Coefficient of Variation 13.9 11.5-14.5 % Immature Granulocyte % (Auto) 0.2 % Immature Granulocyte # (Auto) 0.01 0.00-0.02 K/uL Sodium Level 140 136-145 mmol/L Potassium Level 3.8 3.5-5.1 mmol/L Chloride Level 105 98-107 mmol/L Carbon Dioxide Level 28 21-32 mmol/L Anion Gap 7.0 3-11 mmol/L Blood Urea Nitrogen 26 7-18 mg/dl Creatinine 0.98 0.60-1.40 mg/dl Est Creatinine Clear Calc Drug Dose 68.2 ml/min Estimated GFR () 81.7 Estimated GFR (Non- 70.5 BUN/Creatinine Ratio 26.8 10-20 Random Glucose 103 70-99 mg/dl Calcium Level 8.3 8.5-10.1 mg/dl Magnesium Level 2.2 1.8-2.4 mg/dl Test 04/27/18 11:56 Range/Units Bedside Glucose 156 70-99 mg/dl
[2018-04-27] MEDS ORDERED: LCTX PO (14:42)
[2018-04-27] MEDS ORDERED: KFL500 PO (14:42)
--- NOTE | 2018-04-27 14:44 | Discharge Instructions ---
Discharge Instructions Date of Service Apr 27, 2018. Admission Reason for Admission: Fever,Uti (Urinary Tract Infection) Discharge Discharge Diagnosis / Problem: Metabolic Encephalopathy secondary to UTI Discharge Goals Goal(s): Prevent Disease Progression Activity Recommendations Activity Limitations: resume your previous activity . Instructions / Follow-Up Instructions / Follow-Up Dr Cardenas on 05/01/18 at 12:45 PM Current Hospital Diet Patient's current hospital diet: AHA Diet (Heart Healthy), Diabetes Type 2 Diet Discharge Diet Recommended Diet: AHA Diet (Heart Healthy) Pending Studies Studies pending at discharge: no Medical Emergencies . Who to Call and When: Medical Emergencies: If at any time you feel your situation is an emergency, please call 911 immediately. . Non-Emergent Contact Non-Emergency issues call your: Primary Care Provider . 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 "Provider Documentation" section prepared by Harshad Ocasio. .
[2018-04-27 15:01] VITALS: BP 138/68; PULSE 78; TEMP 36.4; O2SAT 94
--- NOTE | 2018-04-28 08:19 | Discharge Summary ---
Discharge Summary Date of Service Apr 28, 2018. Discharge Summary Admission Date: Apr 25, 2018 at 01:33 Discharge Date: Apr 27, 2018 Discharge Disposition: Home Principal Diagnosis: Metabolic Encephalopathy secondary to UTI Secondary Diagnoses/Problems: Please see H&P and Hospital Progress note Medication Reconciliation New Medications: Lactobacillus Acidophilus (Lactinex) Tab 2 TAB PO BID, #40 TAB Cephalexin Monohydrate (Cephalexin) 500 Mg Cap 500 MG PO TID for 7 Days, #21 CAP Continued Medications: Aspirin (Aspir-81) 81 Mg Tab 81 MG PO DAILY Clopidogrel Bisulfate (Plavix) 75 Mg Tab 75 MG PO DAILY, TAB Digoxin (Digoxin) 0.125 Mg Tab 0.125 MG PO DAILY PLUS AN ADDITIONAL 0.125MG TABLET EVERY MONDAY/MONDAY/MONDAY Digoxin (Digoxin) 0.125 Mg Tab 2 TABS PO 3XWK MONDAY, MONDAY, MONDAY Fluticasone Prop/Salmeterol (Advair Diskus 250/50 60 Dose) 1 Ea Aerp 1 PUFF INH BID, INHALER Furosemide (Lasix) 40 Mg Tab 80 MG PO 3XWK, TAB MONDAY, MONDAY, MONDAY Furosemide (Lasix) 40 Mg Tab 40 MG PO 4XWK, TAB MONDAY, MONDAY, MONDAY, MONDAY Glimepiride (Glimepiride) 2 Mg Tab 2 MG PO QDB Home O2 Therapy (Oxygen) Gas 2 LITERS NA CONTINOUS, BTL Loratadine (Claritin) 10 Mg Tab 10 MG PO DAILY, TAB Losartan Potassium (Cozaar) 100 Mg Tab 100 MG PO DAILY, TAB Magnesium Oxide (Magnesium Oxide) 400 Mg Cap 400 MG PO DAILY Metformin HCl (Metformin HCl) 850 Mg Tab 850 MG PO BIDM TAKE WITH MORNING AND EVENING MEALS. Metoprolol Succ (Toprol Xl) (Toprol-Xl) 50 Mg Tabcr 50 MG PO DAILY Multiple Vitamin (Multivitamin) 1 Tab Tab 1 TAB PO DAILY, TAB Potassium Chloride Microencaps (Potassium Chloride Er) 20 Meq Tab 20 MEQ PO DAILY Ranitidine Hcl (Zantac) 150 Mg Tab 150 MG PO BID, TAB Simvastatin (Zocor) 40 Mg Tab 40 MG PO QPM, TAB Triamcinolone Acet (Triamcinolone Acetonide) 45 Appln/15 Gm Oint 1 APPLN TD BID APPLY 2X DAILY FOR RASH Admission Information HPI (per Admitting provider): DATE OF ADMISSION: 04/25/2018 CHIEF COMPLAINT: Fevers, somewhat confused at home. HISTORY OF PRESENT ILLNESS: [age] male with past medical history significant for CAD, BPH, hyperlipidemia, tachy-lorna syndrome, status post pacemaker, asthma, type 2 diabetes, hypertension, iliac artery aneurysm, AFib, ischemic cardiomyopathy with a systolic CHF and volume insufficiency, GERD, chronic kidney disease stage III presents with fever. The patient lives with his . The patient was treated for UTI a couple of weeks ago. These last 2 days patient is sleeping a lot and today he was having temperature of 102 when daughter checked, later it was 103 and the patient was brought in here. Patient is somewhat hard to hear and he was not wearing hearing aids and they thought that the patient was somewhat confused, but right now in the ER he is improved. He is doing fine. His hemodynamics are stable. Patient denies any headaches, no dizziness, no blurred vision, no runny nose, no cough, no sore throat, no chest pain, no shortness of breath, no nausea, no vomiting, no abdominal pain. Moved his bowels which were normal, no blood in the stools. He had some blood in the urine today. Patient states he gets on and off blood in the urine and he had cystoscopies in the past which were negative. No swelling in the legs. No rash. is worried if patient has Lyme disease because he was working in the yard and tits close to [place] with [place] in the area. His initial Lyme screen was negative in the ER. ALLERGIES: TO FELECIA INHIBITOR, PREDNISONE, SUDAFED, AND SULFA ANTIBIOTICS. PAST MEDICAL HISTORY: As mentioned above. PAST SURGICAL HISTORY: CABG, biventricular pacemaker, cataract surgeries. MEDICATIONS: Patient is on Plavix 75 mg p.o. daily, glimepiride 2 mg p.o. daily, metformin 850 mg p.o. b.i.d., Claritin 10 mg p.o. daily, Advair Diskus 250/50 one puff b.i.d., Zantac 150 mg p.o. b.i.d., Atrovent HFA 2 puffs 4 times a day, potassium chloride ER 20 mEq p.o. daily, Toprol-XL 50 mg p.o. daily, losartan 100 mg p.o. daily, digoxin 125 mcg p.o. daily and on also extra digoxin 0.125mg tablet 3 times a week, Lasix 80 mg three times a week and 40 mg four times a week, Zocor 40 mg p.o. daily, oxygen 2 liters 24 hours continuous, aspirin 81 mg p.o. daily, magnesium oxide 400 mg p.o. daily, multivitamin 1 tablet p.o. daily. FAMILY HISTORY: Significant for mother had melanoma and lung cancer with metastasis. SOCIAL HISTORY: and lives with his . Smoking, quit in 1969, smoked 1 pack a day for 20 years. Alcohol occasional. No drug use. REVIEW OF SYMPTOMS: As per HPI. Rest of the review of symptoms negative. PHYSICAL EXAMINATION: GENERAL: The patient is of moderate build, not in distress. VITAL SIGNS: Temperature 39.3, pulse 71, respiratory rate 22, blood pressure 132/55, oxygen 96% on 2 liters. HEENT: No pallor, no icterus. Pupils equal, round, and reactive to light. NECK: No JVD, no neck masses, no carotid bruit. CARDIOVASCULAR: S1, S2 heard, regular rate and rhythm, no murmur, no gallop. RESPIRATORY SYSTEM: Clear to auscultation bilaterally. No wheezing, no crackles. ABDOMEN: Soft, bowel sounds present. Nontender. No distention. CENTRAL NERVOUS SYSTEM: Cranial nerves II through XII are grossly intact. Nonfocal. EXTREMITIES: No edema, no erythema. LABORATORY DATA: Urinalysis positive for leukocyte esterase. WBC 6.5, hemoglobin 12.2, hematocrit 36.6, platelets 151. Sodium 138, potassium 4, chloride 102, bicarbonate 29, BUN 25, creatinine 1.3, serum glucose 106, point of care lactic acid is 1.15, calcium 8.8, phosphorus 3.3, magnesium 2, total bilirubin 1.1, AST 17, ALT 14, alkaline phosphatase 45, total creatinine kinase 64. CK-MB less than 0.1, troponin I of 0.017. C-reactive protein 8.6, lipase 67. PT 11.5, INR 1.1, APTT 26.2. Urinalysis, Lyme screen negative. CT of the head, no acute intracranial abnormalities seen. Chest x-ray, cardiomegaly with pulmonary vascular congestion. CT of the abdomen and pelvis, no bowel obstruction or focal bowel wall thickening, colonic diverticulosis without diverticulitis, marked prostatomegaly with Garcia catheter with a decompressed bladder lumen, bilateral renal cyst with exophytic mildly hyperdense lesion of the interpolar left kidney, possibly reflecting complex cyst. This could be further evaluated with a renal ultrasound. A 6-mm solid nodule noted in the left lower lobe. EKG: Ventricular paced rhythm with a rate of 71. No significant change. ASSESSMENT AND PLAN: This is an 83-year-old male who presents with a fever and some confusion. 1. Fever, confusion, encephalopathy metabolic . The patient was recently treated for acute urinary tract infection, urinalysis positive. We will place him on IV Azactam and there is question of tick bites. He was working in the yard which is close to the [place] and deer in it. We will also check peripheral smear for anaplasmosis. Empirically started on doxycycline and Azactam. Follow the blood culture and urine cultures. Gentle fluids. Monitor on the medical floor. 2. History of coronary artery disease status post coronary artery bypass graft. Continue aspirin, Plavix, Toprol-XL, losartan, and statin. Currently stable. 3. Diabetes. Hold metformin and glimepiride. Placed on Lantus and insulin sliding scale. Follow the blood sugars. 4. History of chronic obstructive pulmonary disease, chronic respiratory failure, on oxygen all the time. Continue Advair Diskus home inhaler. 5. Chronic systolic congestive heart failure. Recent echo in November 2017, EF was normal. Patient is on Losartan, digoxin, and Lasix which he will continue and on gentle fluids and monitor for volume overload. 6. Atrial fibrillation, on Toprol-XL and digoxin, which he will continue. Patient is not on anticoagulation as per records because of epistaxis and also patient not willing. Follows with cardiology. 7. Hyperlipidemia, on statins. 8. Hypertension, on home medications. 9. Complex renal cyst. follow renal ultrasound 10. Lung Nodule 6mm left lower lobe. Needs followup 11. Deep vein thrombosis prophylaxis, sequential compression devices and heparin subQ. DISPOSITION: Monitor on medical floor. Expect to discharge home and follow with family doctor. PT and OT prior to discharge. Social service to help with discharge planning. Dictated: 04/25/18 0143 Transcribed: 04/25/18 0307 <Electronically signed by Chandrakant Abebe MD> Signed: 04/25/18 0817 ES Chandrakant Abebe MD Hospital Course He is an 83-year-old male who presents with a fever and some confusion. Metabolic Encephalopathy secondary to UTI Presented with Fever, confusion, . The patient was recently treated for acute urinary tract infection, urinalysis positive. Has been IV Azactam and there is question of tick bites. Check peripheral smear for anaplasmosis. Empirically started on doxycycline and Azactam. Follow the blood culture and urine cultures. S/P Garcia Catheter US and CT -Multiple Renal Cyst ,no hydronephrosis Pyridium is added to relieve spasmodic pain Pain is better controlled Urine is positive for E. coli which is pansensitive Antibiotics changed to oral Keflex, discontinue Garcia Passing Urine normally No Complaints Will discharge home today History of coronary artery disease status post coronary artery bypass graft. Continue aspirin, Plavix, Toprol-XL, losartan, and statin. Currently stable. Diabetes. Hold metformin and glimepiride. Placed on Lantus and insulin sliding scale. Follow the blood sugars. History of chronic obstructive pulmonary disease, -chronic respiratory failure, on oxygen all the time. -Continue Advair Diskus home inhaler. -No acute symptoms Chronic systolic congestive heart failure. Recent echo in November 2017, EF was normal. Patient is on Losartan, digoxin, and Lasix which he will continue and on gentle fluids and monitor for volume overload. No symptoms of heart failure and OR edema No leg swelling Atrial fibrillation, on Toprol-XL and digoxin, which he will continue. Patient is not on anticoagulation as per records because of epistaxis and also patient not willing. Follows with cardiology. Rate is controlled without any issue Hyperlipidemia, on statins. Hypertension, on home medications. Complex renal cyst. follow renal ultrasound Lung Nodule 6mm left lower lobe. Needs followup Deep vein thrombosis prophylaxis, Heparin SQ Disposition Discharge home today Total time spent on discharge = 35 minutes This includes examination of the patient, discharge planning, medication reconciliation, and communication with other providers. Discharge Instructions Date of Service Apr 27, 2018. Admission Reason for Admission: Fever,Uti (Urinary Tract Infection) Discharge Discharge Diagnosis / Problem: Metabolic Encephalopathy secondary to UTI Discharge Goals Goal(s): Prevent Disease Progression Activity Recommendations Activity Limitations: resume your previous activity . Instructions / Follow-Up Instructions / Follow-Up Dr Cardenas on 05/01/18 at 12:45 PM Current Hospital Diet Patient's current hospital diet: AHA Diet (Heart Healthy), Diabetes Type 2 Diet Discharge Diet Recommended Diet: AHA Diet (Heart Healthy) Pending Studies Studies pending at discharge: no Medical Emergencies . Who to Call and When: Medical Emergencies: If at any time you feel your situation is an emergency, please call 911 immediately. . Non-Emergent Contact Non-Emergency issues call your: Primary Care Provider . 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 "Provider Documentation" section prepared by Harshad Ocasio. . <Electronically signed by Harshad Ocasio M.D.> Signed: 04/27/18 1576 Additional Copies To Shadi Cardenas M.D.
== END 2018-04-27 16:50 | disposition home or self-care (01) | DRG 689 ==
LOC: EDBD 21:01 → C.EDC 21:02 → C.MS4W 04-25 01:33 → ENRESERV 04-25 02:05
PROVIDERS: ADMIT Internal Medicine; ATTEND Internal Medicine
DX: N39.0 Urinary tract infection, site not specified (principal); G93.41 Metabolic encephalopathy; I50.22 Chronic systolic (congestive) heart failure; J96.10 Chronic respiratory failure, unspecified whether with hypoxia or hypercapnia; I13.0 Hypertensive heart and chronic kidney disease with heart failure and stage 1 through stage 4 chronic kidney disease, or unspecified chronic kidney disease; I25.5 Ischemic cardiomyopathy; I25.10 Atherosclerotic heart disease of native coronary artery without angina pectoris; I48.91 Unspecified atrial fibrillation; E11.22 Type 2 diabetes mellitus with diabetic chronic kidney disease; N18.3 Chronic kidney disease, stage 3 (moderate); J44.9 Chronic obstructive pulmonary disease, unspecified; K21.9 Gastro-esophageal reflux disease without esophagitis; E78.5 Hyperlipidemia, unspecified; N40.0 Benign prostatic hyperplasia without lower urinary tract symptoms; H91.90 Unspecified hearing loss, unspecified ear; Z99.81 Dependence on supplemental oxygen; Z95.0 Presence of cardiac pacemaker; Z95.1 Presence of aortocoronary bypass graft; Z87.891 Personal history of nicotine dependence; Z79.02 Long term (current) use of antithrombotics/antiplatelets; Z79.51 Long term (current) use of inhaled steroids; Z79.82 Long term (current) use of aspirin; Z79.84 Long term (current) use of oral hypoglycemic drugs; Z79.899 Other long term (current) drug therapy; Z88.2 Allergy status to sulfonamides; Z88.8 Allergy status to other drugs, medicaments and biological substances

== ENCOUNTER 2019-04-25 09:34 | Inpatient (IN) ==
[2019-04-25] MEDS ORDERED: NITROGLYCERIN SL 0.4 MG/TAB TAB SL STA (10:28)
[2019-04-25] MEDS ORDERED: METOPROLOL TARTRATE 1 MG/ML VIAL IV STA (10:28)
--- NOTE | 2019-04-25 10:50 | XRay Report ---
XR chest 1V portable HISTORY: Dyspnea COMPARISON: Chest 06/08/2018. FINDINGS: The heart remains enlarged. No pneumothorax. No pleural effusions. Left-sided pacemaker/def ibrillator. No new focal lung consolidations to suggest pneumonia. There appears to be developing mil d interstitial pulmonary edema. This has slightly progressed. IMPRESSION: Cardiomegaly with developing mild pulmonary edema. Electronically signed by: Wyatt Leblanc M.D. 04/25/2019 10:48 AM
[2019-04-25 11:45] LABS: Basophils # (auto) 0.01 K/uL (0-0.2); Basophils % (auto) 0.1 %; Eosinophils # (auto) 0.21 K/uL (0-0.5); Hemoglobin 10.6 g/dL (14.0-18.0); Immature Granulocytes # (auto) 0.01 K/uL (0.00-0.02); Immature Granulocytes % (auto) 0.1 %; Lymphocytes # (auto) 0.97 K/uL (1.2-3.4); Lymphocytes % (auto) 13.7 %; Mean Corpuscular Hgb Conc 33.1 g/dL (32-36); Mean Corpuscular Volume 95.2 fL (80-100); Monocytes # (auto) 0.82 K/uL (0.11-0.59); Monocytes % (auto) 11.6 %; Neutrophils # (auto) 5.04 K/uL (1.4-6.5); Neutrophils % (auto) 71.5 %; Platelet Count 136 K/uL (130-400); RDW Coefficient of Variation 14.2 % (11.5-14.5); RDW Standard Deviation 49.2 fL (36.4-46.3); Red Blood Count 3.36 M/uL (4.7-6.1); White Blood Count 7.06 K/uL (4.8-10.8)
[2019-04-25 12:04] LABS: INR 1.1 (0.9-1.1); Partial Thromboplastin Time 26.8 Seconds (21.0-31.0); Prothrombin Time 11.3 Seconds (9.0-12.0)
[2019-04-25 12:09] LABS: Albumin Globulin Ratio 0.7 (0.9-2); BUN Creatinine Ratio 15.9 (10-20); Bilirubin,Total 0.8 mg/dl (0.2-1); Calcium 8.3 mg/dl (8.5-10.1); Creatinine Clr Calc Pharmacy 77.1 ml/min; Est GFR (African American) 91.6; Est GFR (Non-African American) 79.1; Globulin 4.5 gm/dl (2.5-4.0); Magnesium 2.1 mg/dl (1.8-2.4); Phosphorus 3.3 mg/dl (2.5-4.9); Potassium 4.3 mmol/L (3.5-5.1); Total Protein 7.5 gm/dl (6.4-8.2); Troponin I 0.018 ng/ml (0-0.045)
[2019-04-25] MEDS ORDERED: FUROSEMIDE 40 MG/4 ML VIAL IV STA (12:31)
[2019-04-25] MEDS ORDERED: DIGOXIN 0.125 MG TAB PO ONE (13:47)
[2019-04-25] MEDS ORDERED: CLOPIDOGREL BISULFATE 75 MG TAB PO ONE (13:47)
[2019-04-25] MEDS: ALBUT/IPRATROP 3MG/0.5MG NEB 3 ML VIAL NEB SCH ×2 (14:07→19:46)
[2019-04-25 14:16] LABS: Appearance Urine Clear (Clear); Bacteria Urine Automated Negative (Negative); Bilirubin Urine Negative (Negative); Cast Urine Automated 0 /lpf (0-5); Color Urine Yellow; Glucose Urine UA Negative (Negative); Ketones Urine Negative (Negative); Leukocyte Esterase Urine Negative (Negative); Nitrite Urine Negative (Negative); Protein Urine Negative (Negative); Specific Gravity Urine 1.014 (1.000-1.030); Urobilinogen Urine Negative (Negative)
--- NOTE | 2019-04-25 14:17 | History & Physical Report ---
Date of Service April 25, 2019 Assessment & Plan (1) Acute decompensated heart failure: This is an 84-year-old male with a PMH of mixed ischemic and valvular heart disease, DM II, asthma, CAD (s/p stent, CABG), CKD III, persistent atrial fibrillation (anticoagulation contraindicated), tachybradycardia syndrome s/p AICD, HTN and other medical problems listed below who presents with shortness of breath starting during the night and was found to have acute decompensated CHF. -Developed SOB overnight, requiring 2L NC O2 today -H/o mixed ischemic cardiomyopathy and valvular disease. Follows with Dr. Sanford in clinic -BNP elevated at 3637, CXR with cardiomegaly and development of mild pulmonary edema -Initial troponin negative. D-dimer normal -Last 2D echo in November 2018 with preserved EF 60 to 64% with moderate to severe aortic regurgitation -Missed pacemaker interrogation last month. Ordered -Given 40mg IV Lasix in ED. Continue 40mg IV Lasix BID -Strict I&Os, daily weights -Routine cardiology consult (2) Moderate persistent asthma: Scattered wheezes on exam in setting of asthma, ? COPD (patient endorses, not seen in Epic documentation) -VBG pH normal at 7.4, patient saturating in high 90s on 2L NC -Added duonebs Q4R. Will hold off on steroids due as to not cause fluid retention -Continue to monitor respiratory status closely -Continue home Advair, Albuterol PRN (3) CAD (coronary artery disease): H/o CABG in 1999, stent in 2013 -No chest pain, EKG with ventricular-paced rhythm -Initial troponin negative -Continue aspirin, plavix, statin, beta mike (4) Persistent atrial fibrillation: Currently in ventricular-paced rhythm -Given missed home doses of digoxin -Not on anticoagulation due to hematuria in the past. Able to tolerate plavix (5) HTN (hypertension): Given missed dose of Losartan -Continue Lopressor (6) Type II diabetes mellitus: A1c of 7.1 in December 2018. Repeat ordered -Hold home agents -SSI while in-patient -BSG AC HS (7) CKD stage 3 due to type 2 diabetes mellitus: Kidney function at baseline -Continue to monitor with daily BMP (8) Dyslipidemia: Continue statin (9) BPH (benign prostatic hyperplasia): Continue Flomax, Avodart DVT Ppx: SQ heparin Q12H Code status: FULL per discussion with patient PCP: Ricarda Dispo: Admitted to telemetry. Plan to return home once medically stable. Patient seen in collaboration with Dr. Rodriguez. Please see addendum. History of Present Illness Chief Complaint: Shortness of breath Primary Care Provider: Muriel Marrero MD This is an 84-year-old male with a PMH of mixed ischemic and valvular heart disease, DM II, asthma, CAD (s/p stent, CABG), CKD III, persistent atrial fibrillation (anticoagulation contraindicated), tachybradycardia syndrome s/p AICD, HTN and other medical problems listed below who presents with shortness of breath starting during the night. Patient was sleeping and woke up around midnight feeling short of breath. Was wearing his usual 2 L nasal cannula at bedtime but had to prop himself upright for remainder of the night in order to breathe better. Endorses dry cough. states she took his blood pressure last night and the systolic number was 190. Denies any weight gain or swelling in lower extremities. Has been taking medications regularly except for this morning. Came in the ED for further evaluation. Patient initially found to be hypertensive at 211/94. Oxygen saturation has remained in the high 90s on 2 L nasal cannula, which he normally does not require during the day. Chest x-ray with cardiomegaly and development of mild pulmonary edema. EKG with ventricular paced rhythm. Hemoglobin is stable at 10.6. BNP elevated at 3637. D-dimer normal at 332. Last 2D echo performed in November 2018 with preserved EF 60 to 64% with moderate to severe aortic regurgitation. Last pacemaker interrogation in November 2018. Missed pacer interrogation appointment last month. Denies any fever, chills, lightheadedness, headache, chest pain, palpitations, nausea, vomiting, abdominal pain, dysuria, diarrhea or constipation. Allergies Allergy/AdvReac Type Severity Reaction Status Date / Time FELECIA Inhibitors Allergy Unknown ? - Verified 04/25/19 10:30 TOLERATES LOSARTAN AT HOME Sulfa (Sulfonamide Allergy Unknown . Verified 04/25/19 10:30 Antibiotics) pseudoephedrine AdvReac Intermediate TEMP ELEV Verified 04/25/19 10:30 prednisone AdvReac Unknown BLISTERS Verified 04/25/19 10:30 IN THROAT Home Medications Home Medications Medication Instructions Recorded Confirmed Type albuterol sulfate [Proventil HFA] 1 puff INHALATION DIRECTED PRN 06/07/18 04/25/19 History aspirin [Aspirin Low Dose] 81 mg PO MOWEFR@0906/07/18 04/25/19 History clopidogrel [Plavix] 75 mg PO DAILY 06/07/18 04/25/19 History digoxin 0.125 mg PO DIRECTED 06/07/18 04/25/19 History dutasteride 0.5 mg PO DAILY 06/07/18 04/25/19 History fluticasone propion-salmeterol 1 inh INHALATION BID 06/07/18 04/25/19 History [Advair Diskus] furosemide [Lasix] 80 mg PO MOWEFR@89906/07/18 04/25/19 History glimepiride 2 mg PO QAM 06/07/18 04/25/19 History losartan [Cozaar] 100 mg PO DAILY 06/07/18 04/25/19 History magnesium oxide 400 mg PO DAILY 06/07/18 04/25/19 History metformin 850 mg PO BIDM 06/07/18 04/25/19 History metoprolol succinate [Toprol XL] 50 mg PO QAM 06/07/18 04/25/19 History multivitamin 1 tab PO DAILY 06/07/18 04/25/19 History potassium chloride [Klor-Con M20] 20 meq PO DAILY 06/07/18 04/25/19 History ranitidine HCl [Zantac] 150 mg PO Q12 06/07/18 04/25/19 History simvastatin [Zocor] 40 mg PO DAILY 06/07/18 04/25/19 History tamsulosin [Flomax] 0.4 mg PO DAILY 06/07/18 04/25/19 History triamcinolone acetonide 1 applic TOPICAL DIRECTED 06/07/18 04/25/19 History acetaminophen [Tylenol Extra 1,000 mg PO BID 04/25/19 04/25/19 History Strength] baclofen 10 mg PO HS PRN 04/25/19 04/25/19 History furosemide [Lasix] 40 mg PO SUTUTHSA@0900 04/25/19 04/25/19 History Past Med/Surg History Medical History BPH (benign prostatic hyperplasia) (Chronic) Aortic valve insufficiency (Chronic) Ischemic cardiomyopathy (Chronic) Dyslipidemia (Chronic) Moderate persistent asthma (Chronic) Persistent atrial fibrillation (Chronic) Tachy-lorna syndrome (Chronic) CAD (coronary artery disease) (Chronic 08/21/14) Type II diabetes mellitus (Chronic) HTN (hypertension) (Chronic) 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) Hematuria (Inactive) Surgical History S/P coronary artery stent placement (Chronic) July 2014 with stenting of the proximal circumflex Status post implantation of automatic cardioverter/defibrillator (AICD) (Chronic) S/P CABG x 3 (Chronic) 1999 Family History Other Melanoma Social History Preferred Language: Telugu Communication Ability: Impaired Communication Ability Comment: grayling despite b/l hall Clerk Checker Required: No Beliefs That Will Affect Care: None marital status: Current Living Situation: Spouse Other Information That Helps Us Care for You: No Feels Safe at Home: Yes Safety Concerns: Feels Safe At This Time Smoking Status: Former smoker Do You Dip or Chew Tobacco: No Smoking End Date: 1969 Second Hand Exposure: No Hx Alcohol Use: Yes Hx Substance Use: No Review of Systems Review of Systems: At least ten systems reviewed and negative except as noted in the HPI. Physical Exam Physical Exam: General Appearance: WD/WN, elderly male with some accessory muscle use, on 2L NC 02 Head: normocephalic, atraumatic Eyes: normal inspection, PERRL, EOMI ENT: hearing grossly normal, pharynx normal (moist mucous membranes) Neck: supple, no JVD, no adenopathy Respiratory/Chest: Faint bibasilar crackles, scattered expiratory wheezes, R>L. No rhonci. Some accessory muscle use when speaking Cardiovascular: regular rate, rhythm, no murmur appreciated, normal peripheral pulses, no BLE edema Abdomen/GI: normal bowel sounds, soft, non-tender to palpation Extremities/Musculoskelatal: normal inspection, no calf tenderness, normal capillary refill Neurologic/Psych: alert, normal mood/affect, oriented x 3 Skin: normal color, warm/dry Results & Data Vital Signs (Past 12 Hours) Vital Signs Temp Pulse Pulse Resp BP BP Pulse Ox 04/25/19 14:09 78 18 97 04/25/19 13:52 86 34 H 178/81 H 96 04/25/19 12:31 71 24 98 04/25/19 12:30 72 26 H 174/87 H 98 04/25/19 12:01 73 26 H 98 04/25/19 12:00 73 33 H 182/85 H 98 04/25/19 11:54 84 31 H 97 04/25/19 11:53 90 32 H 181/99 H 96 04/25/19 11:41 71 30 H 186/112 H 98 04/25/19 11:35 71 25 H 194/115 H 97 04/25/19 11:31 69 19 201/106 H 98 04/25/19 11:30 71 28 H 97 04/25/19 11:25 73 28 H 208/104 H 98 04/25/19 11:20 70 26 H 202/103 H 97 04/25/19 11:15 72 17 199/98 H 97 04/25/19 11:10 70 22 192/98 H 97 04/25/19 11:05 72 27 H 177/79 H 97 04/25/19 11:01 73 21 97 04/25/19 11:00 72 28 H 170/91 H 96 04/25/19 10:55 75 28 H 157/93 H 96 04/25/19 10:52 73 25 H 153/89 H 96 04/25/19 10:48 75 31 H 187/98 H 97 04/25/19 10:45 76 25 H 197/97 H 96 04/25/19 10:42 73 20 187/82 H 98 04/25/19 10:34 71 22 98 04/25/19 10:30 75 17 98 04/25/19 10:00 70 22 187/82 H 97 04/25/19 09:50 71 18 97 04/25/19 09:49 98 04/25/19 09:45 36.7 C 79 24 211/94 H 98 04/25/19 09:41 71 23 211/94 H 97 Laboratory Results Short CBC 04/25/19 Range/Units 11:32 WBC 7.06 (4.8-10.8) K/uL Hgb 10.6 L (14.0-18.0) g/dL Hct 32.0 L (42-52) % Plt Count 136 (130-400) K/uL BMP 04/25/19 11:32 Sodium 143 Potassium 4.3 Chloride 111 H Carbon Dioxide 22 BUN 14 Creatinine 0.86 Glucose 130 H Calcium 8.3 L Cardiac Enzymes 04/25/19 Range/Units 11:32 Troponin I 0.018 (0-0.045) ng/ml Liver Function 04/25/19 Range/Units 11:32 Total Bilirubin 0.8 (0.2-1) mg/dl AST 16 (15-37) U/L ALT 18 (12-78) U/L Alkaline Phosphatase 45 (45-117) U/L Albumin 3.0 L (3.4-5.0) gm/dl Urine 04/25/19 Range/Units 13:10 Urine Color Yellow Urine Appearance Clear (Clear) Urine pH 5.0 (4.5-7.5) Ur Specific [place] 1.014 (1.000-1.030) Urine Protein Negative (Negative) Urine Glucose (UA) Negative (Negative) Diagnostic Findings CXR: IMPRESSION: Cardiomegaly with developing mild pulmonary edema. ECG Findings: + paced rhythm Supervising Physician Co-Signing Physician Notes I saw this patient with the physician lead dental assistant, I participated in the history, physical, review of systems, and physical exam. I reviewed the medications with the patient and the physician lead dental assistant and helped reconcile the medications. I helped take a detailed family and social history as well. I formulated the assessment and plan personally with the physician lead dental assistant and went over it with the patient. ROS-No Headache, No Visual Changes, No Nausea, No Vomiting, No Fever, No Chills, No Neck Pain or Stiffness, No Chest Pain, No Palpitations, No SOB, No COLIN, No Cough, No Sputum, No Wheezing, No Abdominal Pain, No Diarrhea, No Hematemesis, No Hemoptysis, No Unexpected Weight Loss, No Flank pain, No Melena, No Hematochezia, No Frequency, No Urgency, No Burning, No Hematuria, No Rashes, No Diaphoresis. Appetite is Normal Physical Exam Gen-AAO x 3, NAD, Afebrile, KARUK, obese, pleasant Head-NCAT, EOMI, PERRLA, Anicteric Sclera, No Posterior Pharyngeal Erythema Neck-Supple, No JVD, No Thyromegaly, No Masses, No LAD, No Bruits Lungs-Mild wheeze Bilaterally, No Rales, No Rhonchi, No Crepitus Chest-No S4, +S1, +S2, No S3, No Murmurs, No Rubs, No Gallops, No Ectopy Abdomen-Soft, Bowel Sounds Present, Non Tender, Non Distended, No Hepatomegaly, No Splenomegaly, No Palpable Masses, No Rebound, No Rigidity, No Guarding Musculoskeletal-Full Range of Motion Bilaterally, No CVAT Extremities-No Cyanosis, No Clubbing, No Edema Nuero-Cranial Nerves II-XII grossly intact, Motor WNL, DTRs WNL, Strength WNL, Non Focal Psych-Normal Mood
[2019-04-25] MEDS ORDERED: LOSARTAN POTASSIUM 50 MG TAB PO ONE (14:30)
[2019-04-25] MEDS ORDERED: ONDANSETRON INJ 2 MG/ML 2 ML VIAL IV PRN (15:23)
[2019-04-25] MEDS ORDERED: BACLOFEN 10 MG TAB PO PRN (15:23)
[2019-04-25] MEDS ORDERED: ACETAMINOPHEN 325 MG TAB PO PRN (15:23)
[2019-04-25] MEDS ORDERED: POLYETHYLENE (MIRALAX) 17 GM PACK PO PRN (15:23)
[2019-04-25] MEDS ORDERED: ALBUTEROL HFA 8 GM INHALER INH PRN (15:23)
[2019-04-25] MEDS ORDERED: TRIAMCINOLONE ACET 0.5% CR 15 GM TUBE TOP SCH (15:23)
[2019-04-25] MEDS ORDERED: TRIAMCINOLONE ACET 0.5% CR 15 GM TUBE EXT PRN (15:51)
[2019-04-25] MEDS ORDERED: DIGOXIN 0.125 MG TAB PO SCH (16:00)
[2019-04-25] MEDS ORDERED: GLUCOSE 40% GEL 15 GM TUBE PO PRN (16:49)
[2019-04-25] MEDS ORDERED: DEXTROSE 50% 50 ML SYRINGE IV PRN (16:49)
[2019-04-25] MEDS ORDERED: CARBOHYDRATES FOR HYPOGLYCEMIA PO PRN (16:49)
[2019-04-25] MEDS ORDERED: GLUCOSE 10 TABS/TUBE PO PRN (16:49)
[2019-04-25] MEDS ORDERED: GLUCAGON FOR INJ 1 MG VIAL SQ PRN (16:49)
--- NOTE | 2019-04-25 17:04 | Emergency Department Note ---
Entered by Jeniffer Joshi acting as a scribe for History of Present Illness General Chief complaint: Shortness of Breath/Dyspnea Stated complaint: breathing diff. Time Seen by Provider: 04/25/19 10:09 Source: patient and family Mode of arrival: EMS Limitations: no limitations History of Present Illness Onset (ago): hour(s) (this morning) Location: chest Pain Consistency: + constant Quality: + other ("difficulty catching breath") Relieved By: + other (sitting up) Exacerbated By: + other (lying flat) Associated symptoms: + cough and + shortness of breath; no chest pain and no nausea/vomiting The patient is an 84 white male w/ PMHx CAD status post CABG, BPH, hyperlipidemia, tachy-lorna syndrome, status post pacemaker, asthma, type 2 diabetes, hypertension, iliac artery aneurysm, atrial fibrillation, ischemic cardiomyopathy with systolic congestive heart failure who presents to the ED via EMS w/ CC of constant shortness of breath beginning this morning. He describes the pain as difficulty catching his breath. The patient states that the pain is exacerbated with lying down and alleviated with sitting up. The patient complains of cough. The patient denies chest pain, abdominal pain, nausea, and vomiting. The patient denies a change in diet. He notes that he takes blood pressure medication. The patient denies recent trips or hospitalizations. Home Medications Home Medications Medication Instructions Recorded Confirmed Type albuterol sulfate [Proventil HFA] 1 puff INHALATION DIRECTED PRN 06/07/18 04/25/19 History aspirin [Aspirin Low Dose] 81 mg PO MOWEFR@0900 06/07/18 04/25/19 History clopidogrel [Plavix] 75 mg PO DAILY 06/07/18 04/25/19 History digoxin 0.125 mg PO DIRECTED 06/07/18 04/25/19 History dutasteride 0.5 mg PO DAILY 06/07/18 04/25/19 History fluticasone propion-salmeterol 1 inh INHALATION BID 06/07/18 04/25/19 History [Advair Diskus] furosemide [Lasix] 80 mg PO MOWEFR@0900 06/07/18 04/25/19 History glimepiride 2 mg PO QAM 06/07/18 04/25/19 History losartan [Cozaar] 100 mg PO DAILY 06/07/18 04/25/19 History magnesium oxide 400 mg PO DAILY 06/07/18 04/25/19 History metformin 850 mg PO BIDM 06/07/18 04/25/19 History metoprolol succinate [Toprol XL] 50 mg PO QAM 06/07/18 04/25/19 History multivitamin 1 tab PO DAILY 06/07/18 04/25/19 History potassium chloride [Klor-Con M20] 20 meq PO DAILY 06/07/18 04/25/19 History ranitidine HCl [Zantac] 150 mg PO Q12 06/07/18 04/25/19 History simvastatin [Zocor] 40 mg PO DAILY 06/07/18 04/25/19 History tamsulosin [Flomax] 0.4 mg PO DAILY 06/07/18 04/25/19 History triamcinolone acetonide 1 applic TOPICAL DIRECTED 06/07/18 04/25/19 History acetaminophen [Tylenol Extra 1,000 mg PO BID 04/25/19 04/25/19 History Strength] baclofen 10 mg PO HS PRN 04/25/19 04/25/19 History furosemide [Lasix] 40 mg PO SUTUTHSA@0900 04/25/19 04/25/19 History Allergies Allergy/AdvReac Type Severity Reaction Status Date / Time FELECIA Inhibitors Allergy Unknown ? - Verified 04/25/19 10:30 TOLERATES [facility] AT HOME Sulfa (Sulfonamide Allergy Unknown . 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) Hematuria (Inactive) Surgical History S/P coronary artery stent placement (Chronic) July 2014 with stenting of the proximal circumflex Status post implantation of automatic cardioverter/defibrillator (AICD) (Chronic) S/P CABG x 3 (Chronic) 2000 Family History Other Melanoma Social History Preferred Language: Portuguese Communication Ability: Impaired Communication Ability Comment: [place] despite b/l hall 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 and A total of 10 systems reviewed and were otherwise negative Physical Exam Vital Signs Vital Signs - 24 hr 04/25/19 09:41 04/25/19 09:45 04/25/19 09:49 Temperature 36.7 C Temperature Source Oral Sepsis Recent Fever Within 48 Hours No Sepsis New/Unexplained Change in Mental Status No Sepsis Action Taken by Nursing No Action Required Pulse Rate 71 79 Pulse Rate from SpO2 Sensor 72 Respiratory Rate 23 24 Respiratory Effort / Characteristics Spontaneous Labored Spontaneous Labored Respiratory Depth Normal Normal Respiratory Pattern Regular Regular Blood Pressure 211/94 H 211/94 H Blood Pressure Mean 133 133 Blood Pressure Position Sitting Pulse Oximetry 97 98 98 Oxygen Delivery Method Nasal Cannula Nasal Cannula Oxygen Flow Rate 3 3 04/25/19 09:50 04/25/19 10:00 04/25/19 10:30 Temperature Temperature Source Sepsis Recent Fever Within 48 Hours Sepsis New/Unexplained Change in Mental Status Sepsis Action Taken by Nursing Pulse Rate 71 70 75 Pulse Rate from SpO2 Sensor 71 70 75 Respiratory Rate 18 22 17 Respiratory Effort / Characteristics Respiratory Depth Respiratory Pattern Blood Pressure 187/82 H Blood Pressure Mean 117 Blood Pressure Position Pulse Oximetry 97 97 98 Oxygen Delivery Method Oxygen Flow Rate 04/25/19 10:34 04/25/19 10:42 04/25/19 10:45 Temperature Temperature Source Sepsis Recent Fever Within 48 Hours Sepsis New/Unexplained Change in Mental Status Sepsis Action Taken by Nursing Pulse Rate 71 73 76 Pulse Rate from SpO2 Sensor 74 76 Respiratory Rate 22 20 25 H Respiratory Effort / Characteristics Respiratory Depth Respiratory Pattern Blood Pressure 187/82 H 197/97 H Blood Pressure Mean 117 130 Blood Pressure Position Pulse Oximetry 98 98 96 Oxygen Delivery Method Nasal Cannula Oxygen Flow Rate 3 04/25/19 10:48 04/25/19 10:52 04/25/19 10:55 Temperature Temperature Source Sepsis Recent Fever Within 48 Hours Sepsis New/Unexplained Change in Mental Status Sepsis Action Taken by Nursing Pulse Rate 75 73 75 Pulse Rate from SpO2 Sensor 76 73 74 Respiratory Rate 31 H 25 H 28 H Respiratory Effort / Characteristics Respiratory Depth Respiratory Pattern Blood Pressure 187/98 H 153/89 H 157/93 H Blood Pressure Mean 127 110 114 Blood Pressure Position Pulse Oximetry 97 96 96 Oxygen Delivery Method Oxygen Flow Rate 04/25/19 11:00 04/25/19 11:01 04/25/19 11:05 Temperature Temperature Source Sepsis Recent Fever Within 48 Hours Sepsis New/Unexplained Change in Mental Status Sepsis Action Taken by Nursing Pulse Rate 72 73 72 Pulse Rate from SpO2 Sensor 69 71 69 Respiratory Rate 28 H 21 27 H Respiratory Effort / Characteristics Respiratory Depth Respiratory Pattern Blood Pressure 170/91 H 177/79 H Blood Pressure Mean 117 111 Blood Pressure Position Pulse Oximetry 96 97 97 Oxygen Delivery Method Oxygen Flow Rate 04/25/19 11:10 04/25/19 11:15 04/25/19 11:20 Temperature Temperature Source Sepsis Recent Fever Within 48 Hours Sepsis New/Unexplained Change in Mental Status Sepsis Action Taken by Nursing Pulse Rate 70 72 70 Pulse Rate from SpO2 Sensor 69 70 70 Respiratory Rate 22 17 26 H Respiratory Effort / Characteristics Respiratory Depth Respiratory Pattern Blood Pressure 192/98 H 199/98 H 202/103 H Blood Pressure Mean 129 131 136 Blood Pressure Position Pulse Oximetry 97 97 97 Oxygen Delivery Method Oxygen Flow Rate 04/25/19 11:25 04/25/19 11:30 04/25/19 11:31 Temperature Temperature Source Sepsis Recent Fever Within 48 Hours Sepsis New/Unexplained Change in Mental Status Sepsis Action Taken by Nursing Pulse Rate 73 71 69 Pulse Rate from SpO2 Sensor 71 69 70 Respiratory Rate 28 H 28 H 19 Respiratory Effort / Characteristics Respiratory Depth Respiratory Pattern Blood Pressure 208/104 H 201/106 H Blood Pressure Mean 138 137 Blood Pressure Position Pulse Oximetry 98 97 98 Oxygen Delivery Method Oxygen Flow Rate 04/25/19 11:35 04/25/19 11:41 04/25/19 11:53 Temperature Temperature Source Sepsis Recent Fever Within 48 Hours Sepsis New/Unexplained Change in Mental Status Sepsis Action Taken by Nursing Pulse Rate 71 71 90 Pulse Rate from SpO2 Sensor 70 72 89 Respiratory Rate 25 H 30 H 32 H Respiratory Effort / Characteristics Respiratory Depth Respiratory Pattern Blood Pressure 194/115 H 186/112 H 181/99 H Blood Pressure Mean 141 136 126 Blood Pressure Position Pulse Oximetry 97 98 96 Oxygen Delivery Method Oxygen Flow Rate 04/25/19 11:54 04/25/19 12:00 04/25/19 12:01 Temperature Temperature Source Sepsis Recent Fever Within 48 Hours Sepsis New/Unexplained Change in Mental Status Sepsis Action Taken by Nursing Pulse Rate 84 73 73 Pulse Rate from SpO2 Sensor 85 71 70 Respiratory Rate 31 H 33 H 26 H Respiratory Effort / Characteristics Respiratory Depth Respiratory Pattern Blood Pressure 182/85 H Blood Pressure Mean 117 Blood Pressure Position Pulse Oximetry 97 98 98 Oxygen Delivery Method Oxygen Flow Rate 04/25/19 12:30 04/25/19 12:31 04/25/19 12:41 Temperature Temperature Source Sepsis Recent Fever Within 48 Hours Sepsis New/Unexplained Change in Mental Status Sepsis Action Taken by Nursing Pulse Rate 72 71 Pulse Rate from SpO2 Sensor 72 71 Respiratory Rate 26 H 24 Respiratory Effort / Characteristics Non-Labored Spontaneous Respiratory Depth Normal Respiratory Pattern Regular Blood Pressure 174/87 H Blood Pressure Mean 116 Blood Pressure Position Pulse Oximetry 98 98 Oxygen Delivery Method Nasal Cannula Oxygen Flow Rate 3 04/25/19 13:00 04/25/19 13:31 Temperature Temperature Source Sepsis Recent Fever Within 48 Hours Sepsis New/Unexplained Change in Mental Status Sepsis Action Taken by Nursing Pulse Rate 89 Pulse Rate from SpO2 Sensor 90 Respiratory Rate 27 H Respiratory Effort / Characteristics Respiratory Depth Respiratory Pattern Blood Pressure Blood Pressure Mean Blood Pressure Position Pulse Oximetry 97 Oxygen Delivery Method Oxygen Flow Rate GENERAL: Wearing glasses, nasal cannula in place, well appearing, well nourished, NAD, non-toxic. EYE EXAM: Normal conjunctiva. PERRL, no anisocoria and EOM's grossly intact w/o pain. OROPHARYNX: Moist mucus membranes. Grossly normal dentition. NECK: Supple, no nuchal rigidity, no adenopathy, non-tender. no signs of meningismus. CHEST: He has a devise in the left chest. LUNGS: Clear to auscultation. Normal chest wall mechanics. Decreased breath sounds at the left base. HEART: NSR, no MRG. ABDOMEN: Abdomen soft, non-tender, normo-active bowel sounds, no masses, no rebound or guarding. BACK: No CVA TTP. SKIN: No rashes and no bruising. UPPER EXTREMITIES: Upper extremities are grossly normal. LOWER EXTREMITIES: No pitting edema. No calf pain. NEURO EXAM: A&O x3, cranial nerves II-XII grossly intact, normal speech, moves all 4 extremities on command w/o issue. Course 1013: Past medical records reviewed. The patient was evaluated in room A9. A complete history and physical examination was performed. 1236: I reviewed the patient's case with Sabina Moreno for Dr. Rodriguez. She will evaluate the patient for further management. Consultations Consultation #1: [id number]: I reviewed the patient's case with Sabina Moreno for Dr. Rodriguez. She will evaluate the patient for further management. Time: 12:36 Administered Medications Albuterol (Duoneb) 3 ml NEB QIDR PENDING SALE TO [facility] Stop: 05/25/19 14:14 Last Admin: 04/25/19 14:07 Dose: 3 ml Documented by: [id number] Digoxin (Lanoxin) 0.125 mg PO SuTuThSa@1600 PENDING SALE TO [facility] Stop: 05/25/19 15:59 Last Admin: 04/25/19 16:45 Dose: 0.125 mg Documented by: [id number] Miscellaneous (Order Awaiting Action) 1 ea N/A QS PENDING SALE TO [facility] Stop: 05/25/19 15:59 Last Admin: 04/25/19 16:59 Dose: Not Given Documented by: [id number] Discontinued Medications Clopidogrel Bisulfate (Plavix) 75 mg PO NOW ONE Stop: 04/25/19 13:48 Last Admin: 04/25/19 14:52 Dose: 75 mg Documented by: [id number] Digoxin (Lanoxin) 0.125 mg PO NOW ONE Stop: 04/25/19 13:48 Last Admin: 04/25/19 14:52 Dose: 0.125 mg Documented by: [id number] Furosemide (Lasix) 40 mg IV NOW STA Stop: 04/25/19 12:32 Last Admin: 04/25/19 12:45 Dose: 40 mg Documented by: [id number] Losartan Potassium (Cozaar) 100 mg PO 1430 ONE Stop: 04/25/19 14:31 Last Admin: 04/25/19 14:52 Dose: 100 mg Documented by: [id number] Metoprolol Tartrate (Lopressor) 5 mg IV NOW STA Stop: 04/25/19 10:29 Last Admin: 04/25/19 10:45 Dose: 5 mg Documented by: [id number] Nitroglycerin (Nitrostat) 0.4 mg SL NOW STA Stop: 04/25/19 10:29 Last Admin: 04/25/19 10:43 Dose: 0.4 mg Documented by: [id number] Medical Decision Making Differential Diagnosis Differential diagnoses Pneumonia, bronchitis, COPD/Asthma exacerbation, pneumothorax, pulmonary embolism, congestive heart failure, acute coronary syndrome as well as other etiologies were entertained. Medical Records Attestation: I reviewed the patient's medical records. Home Medications Current Medication List: was personally reviewed by me Laboratory Data Attestation: I reviewed the patient's lab results. Result diagrams: 04/25/19 11:32 04/25/19 11:32 Lab Results 04/25/19 04/25/19 04/25/19 Range/Units 11:32 11:32 11:32 WBC 7.06 (4.8-10.8) K/uL RBC 3.36 L (4.7-6.1) M/uL Hgb 10.6 L (14.0-18.0) g/dL Hct 32.0 L (42-52) % MCV 95.2 (80-100) fL MCH 31.5 (25-34) pg MCHC 33.1 (32-36) g/dL RDW Std Deviation 49.2 H (36.4-46.3) fL RDW Coeff of Maricarmen 14.2 (11.5-14.5) % Plt Count 136 (130-400) K/uL MPV 10.0 (7.4-10.4) fL Immature Gran % (Auto) 0.1 % Neut % (Auto) 71.5 % Lymph % (Auto) 13.7 % [place] % (Auto) 11.6 % Eos % (Auto) 3.0 % Baso % (Auto) 0.1 % Immature Gran # (Auto) 0.01 (0.00-0.02) K/uL Neut # (Auto) 5.04 (1.4-6.5) K/uL Lymph # (Auto) 0.97 L (1.2-3.4) K/uL [place] # (Auto) 0.82 H (0.11-0.59) K/uL Eos # (Auto) 0.21 (0-0.5) K/uL Baso # (Auto) 0.01 (0-0.2) K/uL PT 11.3 (9.0-12.0) Seconds INR 1.1 (0.9-1.1) APTT 26.8 (21.0-31.0) Seconds PTT Ratio 1.0 POC D-Dimer (0-450) ng/mlFEU Sodium 143 (136-145) mmol/L Potassium 4.3 (3.5-5.1) mmol/L Chloride 111 H (98-107) mmol/L Carbon Dioxide 22 (21-32) mmol/L Anion Gap 10.0 (3-11) BUN 14 (7-18) mg/dl Creatinine 0.86 (0.6-1.4) mg/dl Est Cr Clr Drug Dosing 77.1 ml/min Est GFR ( Amer) 91.6 Est GFR (Non-Af Amer) 79.1 BUN/Creatinine Ratio 15.9 (10-20) Glucose 130 H (70-99) mg/dl Calcium 8.3 L (8.5-10.1) mg/dl Phosphorus 3.3 (2.5-4.9) mg/dl Magnesium 2.1 (1.8-2.4) mg/dl Total Bilirubin 0.8 (0.2-1) mg/dl AST 16 (15-37) U/L ALT 18 (12-78) U/L Alkaline Phosphatase 45 (45-117) U/L Troponin I 0.018 (0-0.045) ng/ml NT-Pro-B Natriuret Pep 3637 H (0-1800) pg/ml Total Protein 7.5 (6.4-8.2) gm/dl Albumin 3.0 L (3.4-5.0) gm/dl Globulin 4.5 H (2.5-4.0) gm/dl Albumin/Globulin Ratio 0.7 L (0.9-2) Urine Color Urine Appearance (Clear) Urine pH (4.5-7.5) Ur Specific [place] (1.000-1.030) Urine Protein (Negative) Urine Glucose (UA) (Negative) Urine Ketones (Negative) Urine Blood (Negative) Urine Nitrite (Negative) Urine Bilirubin (Negative) Urine Urobilinogen (Negative) Ur Leukocyte Esterase (Negative) Urine WBC (Auto) (0-5) /hpf Urine RBC (Auto) (0-4) /hpf U Hyaline Cast (Auto) (0-5) /lpf U Epithel Cells (Auto) (0-5) /lpf Urine Bacteria (Auto) (Negative) 04/25/19 04/25/19 Range/Units 11:42 13:10 WBC (4.8-10.8) K/uL RBC (4.7-6.1) M/uL Hgb (14.0-18.0) g/dL Hct (42-52) % MCV (80-100) fL MCH (25-34) pg MCHC (32-36) g/dL RDW Std Deviation (36.4-46.3) fL RDW Coeff of Maricarmen (11.5-14.5) % Plt Count (130-400) K/uL MPV (7.4-10.4) fL Immature Gran % (Auto) % Neut % (Auto) % Lymph % (Auto) % [place] % (Auto) % Eos % (Auto) % Baso % (Auto) % Immature Gran # (Auto) (0.00-0.02) K/uL Neut # (Auto) (1.4-6.5) K/uL Lymph # (Auto) (1.2-3.4) K/uL [place] # (Auto) (0.11-0.59) K/uL Eos # (Auto) (0-0.5) K/uL Baso # (Auto) (0-0.2) K/uL PT (9.0-12.0) Seconds INR (0.9-1.1) APTT (21.0-31.0) Seconds PTT Ratio POC D-Dimer 332 (0-450) ng/mlFEU Sodium (136-145) mmol/L Potassium (3.5-5.1) mmol/L Chloride (98-107) mmol/L Carbon Dioxide (21-32) mmol/L Anion Gap (3-11) BUN (7-18) mg/dl Creatinine (0.6-1.4) mg/dl Est Cr Clr Drug Dosing ml/min Est GFR ( Amer) Est GFR (Non-Af Amer) BUN/Creatinine Ratio (10-20) Glucose (70-99) mg/dl Calcium (8.5-10.1) mg/dl Phosphorus (2.5-4.9) mg/dl Magnesium (1.8-2.4) mg/dl Total Bilirubin (0.2-1) mg/dl AST (15-37) U/L ALT (12-78) U/L Alkaline Phosphatase (45-117) U/L Troponin I (0-0.045) ng/ml NT-Pro-B Natriuret Pep (0-1800) pg/ml Total Protein (6.4-8.2) gm/dl Albumin (3.4-5.0) gm/dl Globulin (2.5-4.0) gm/dl Albumin/Globulin Ratio (0.9-2) Urine Color Yellow Urine Appearance Clear (Clear) Urine pH 5.0 (4.5-7.5) Ur Specific [place] 1.014 (1.000-1.030) Urine Protein Negative (Negative) Urine Glucose (UA) Negative (Negative) Urine Ketones Negative (Negative) Urine Blood Trace H (Negative) Urine Nitrite Negative (Negative) Urine Bilirubin Negative (Negative) Urine Urobilinogen Negative (Negative) Ur Leukocyte Esterase Negative (Negative) Urine WBC (Auto) 1-5 (0-5) /hpf Urine RBC (Auto) 0-4 (0-4) /hpf U Hyaline Cast (Auto) 0 (0-5) /lpf U Epithel Cells (Auto) 5-10 H (0-5) /lpf Urine Bacteria (Auto) Negative (Negative) Imaging Data Radiologist's Impression: Radiology results as stated below per my review and the radiologist's interpretation: XR chest 1V portable HISTORY: Dyspnea COMPARISON: Chest 06/08/2018. FINDINGS: The heart remains enlarged. No pneumothorax. No pleural effusions. Left-sided pacemaker/defibrillator. No new focal lung consolidations to suggest pneumonia. There appears to be developing mild interstitial pulmonary edema. This has slightly progressed. IMPRESSION: Cardiomegaly with developing mild pulmonary edema. Electronically signed by: Wyatt Leblanc M.D. 04/25/2019 10:48 AM Dictated: 04/25/19 1047 Transcribed: 04/25/19 1047 ECG Data Attestation: I personally reviewed and interpreted this ECG as follows: Indication: SOB/dyspnea Rate (beats per minute): 73 Rhythm: other (ventricularly paced) Findings: + other (Wide QRS), + Q waves (throughout) and + ST depression (Mild in V1 and V2. ) Comparison ECG Date: from (06/08/2018) Blood Pressure Blood Pressure Findings: Elevated blood pressure Blood Pressure Disposition: further management by hospitalist LATANYA Robertson The patient is an 84 white male w/ PMHx CAD status post CABG, BPH, hyperlipidemia, tachy-lorna syndrome, status post pacemaker, asthma, type 2 diabetes, hypertension, iliac artery aneurysm, atrial fibrillation, ischemic cardiomyopathy with systolic congestive heart failure who presents to the ED via EMS w/ CC of constant shortness of breath beginning this morning. Patient was seen and evaluated the bedside. The patient did present with acute onset of shortness of breath beginning today. The patient is a prior history of CABG. The patient also does have an AICD and to see Dr. Sanford. The patient denies any chest pains. The patient denies any increase in fluid or salt. The patient is requiring some supplemental oxygen. The patient has normal white count and chronic but stable anemia. The patient's kidney function is un remarkable. The patient's calcium is slightly low but when corrected for albumin is within normal limits. BNP is elevated. Troponin is not very high. The patient was initially given some some sublingual nitro as well as some Lopressor to help with blood pressure. The patient was feeling well resting. The patient was given a dose of Lasix also. The patient does not appear diffusely overloaded in his lower extremities with the patient is significantly hypertensive and does have an elevated BNP with pulmonary edema developing on his chest x-ray. Given this I did speak with the on-call hospitalist given the concern for hypertensive emergency as well as possible volume overload. The patient was subsequently admitted to the medicine service. Impression & Plan Hypertensive emergency, CHF (congestive heart failure) Critical Care Time Critical Care Time: Yes Total Critical Care Time: 39 I have personally spent greater than 39 minutes of critical care time in direct management of this patient. This includes bedside care, interpretation of diagnostic studies, and testing, discussion with consultants, patient, and family members, and other require inpatient management activities. This 39 minutes is in excess of all separately billable procedures. Discharge Plan Visit Data *Final* Discharge Date/Time: 04/25/19 15:01 Chief Complaint: Shortness of Breath/Dyspnea Stated Complaint: breathing diff. ED Provider: Brennen Islas Discharge Problem: Hypertensive emergency, CHF (congestive heart failure) Patient Disposition: Admitted As Inpatient Discharge Instructions Interventions: ED Discharge Assessment Last Done: 04/25/19 15:01 The scribe's documentation has been prepared under my direction and personally reviewed by me in its entirety. I confirm that the note above accurately reflec ts all work, treatment, procedures, and medical decision making performed by me.
[2019-04-25] MEDS: ACETAMINOPHEN 500 MG TAB PO SCH (19:40)
[2019-04-25] MEDS: FUROSEMIDE 40 MG in SYRINGE 0 ML IV SCH (19:40)
[2019-04-25] MEDS: HEPARIN SOD 5,000 UNIT/0.5 ML VIAL SQ SCH (19:41)
[2019-04-25] MEDS: FLUTICASONE/SALMETEROL 250/50 (ADVAIR) 14 PUFF/1 INHALER INH SCH (19:41)
[2019-04-25] MEDS: INSULIN ASPART 100 UNITS/ML 3 ML PEN SC SCH (20:26)
[2019-04-25] MEDS ORDERED: HEPARIN SOD 5,000 UNIT/0.5 ML VIAL SQ SCH (22:00)
[2019-04-26 06:06] LABS: Mean Corpuscular Hgb Conc 33.3 g/dL (32-36); Mean Corpuscular Volume 96.8 fL (80-100); Mean Platelet Volume 9.7 fL (7.4-10.4); Platelet Count 152 K/uL (130-400); RDW Coefficient of Variation 14.2 % (11.5-14.5); RDW Standard Deviation 50.3 fL (36.4-46.3); Red Blood Count 3.41 M/uL (4.7-6.1); White Blood Count 5.19 K/uL (4.8-10.8)
[2019-04-26 06:09] LABS: BUN Creatinine Ratio 17.1 (10-20); Calcium 8.2 mg/dl (8.5-10.1); Est GFR (African American) 76.4; Est GFR (Non-African American) 65.9; Potassium 3.7 mmol/L (3.5-5.1)
[2019-04-26] MEDS: ALBUT/IPRATROP 3MG/0.5MG NEB 3 ML VIAL NEB SCH (07:12)
[2019-04-26 08:00] LABS: Estimated Average Glucose 140 mg/dl
[2019-04-26] MEDS: FUROSEMIDE 40 MG in SYRINGE 0 ML IV SCH ×2 (08:21→20:59)
[2019-04-26] MEDS: FLUTICASONE/SALMETEROL 250/50 (ADVAIR) 14 PUFF/1 INHALER INH SCH ×2 (08:22→20:58)
[2019-04-26] MEDS: INSULIN ASPART 100 UNITS/ML 3 ML PEN SC SCH ×4 (08:22→20:11)
[2019-04-26] MEDS: TAMSULOSIN HCL 0.4 MG CAP PO SCH (08:23)
[2019-04-26] MEDS: HEPARIN SOD 5,000 UNIT/0.5 ML VIAL SQ SCH ×2 (08:23→21:00)
[2019-04-26] MEDS: POTASSIUM CHLORIDE 20 MEQ TABCR PO SCH (08:24)
[2019-04-26] MEDS: METOPROLOL SUCC 50MG EXT REL TAB PO SCH (08:24)
[2019-04-26] MEDS: SIMVASTATIN 40 MG TAB PO SCH (08:24)
[2019-04-26] MEDS: MAGNESIUM OXIDE 400 MG TAB PO SCH (08:25)
[2019-04-26] MEDS: CLOPIDOGREL BISULFATE 75 MG TAB PO SCH (08:25)
[2019-04-26] MEDS: LOSARTAN POTASSIUM 50 MG TAB PO SCH (08:25)
[2019-04-26] MEDS: MULTIVITAMIN TAB PO SCH (08:26)
[2019-04-26] MEDS: ACETAMINOPHEN 500 MG TAB PO SCH ×2 (08:26→20:59)
[2019-04-26] MEDS ORDERED: NON-FORMULARY MEDICATION (Dutasteride 0.5 MG) PO SCH (09:00)
[2019-04-26] MEDS ORDERED: ASPIRIN 81 MG ECTAB PO SCH (09:00)
--- NOTE | 2019-04-26 09:52 | Cardiology Consultation ---
Date of Consultation April 26, 2019 Assessment & Plan (1) Acute decompensated heart failure: Suspect mild volume overload superimposed on hypertension/hypertensive urgency as cause. No signs of ischemia by troponin Patient has responded to IV diuretics would give additional IV diuretic dose x1 then resume usual oral dosing We will add terazosin to regimen for further hypertension control (2) Aortic valve insufficiency: (3) Hypertensive urgency: (4) Ischemic cardiomyopathy: Last echocardiogram demonstrating preserved LV systolic function (5) Status post biventricular pacemaker: Last device check November 2018 normal device function greater than 90% by V pacing with appropriate battery life History of Present Illness Reason for Consultation: Acute dyspnea, congestive heart failure Requesting Physician: Dr. Ocasio Attending Physician: Harshad Ocasio MD History of Present Illness Patient is a pleasant 84-year-old male complex underlying cardiac issues including 1. Atherosclerotic coronary artery disease status post coronary bypass grafting July 2000, KAUR graft to LAD, saphenous vein graft sequentially from OM to diagonal. Subsequent later coronary intervention stent to the proximal circumflex 2013 2. 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 Chronic atrial fibrillation with poor anticoagulation tolerance 4. Chronic valvular disease with moderate to severe aortic and moderate mitral insufficiency 5. 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 Chronic asthmatic lung disease with nocturnal oxygen supplementation 7. Mild dementia 8. Hypertension 9. Chronic stage III kidney disease Patient presents having been admitted last evening. He notes lying down to go to bed and becoming acutely dyspneic. He was wearing his usual oxygen supplementation symptoms ease when sitting upright but returned when lying flat. Blood pressures were elevated on initial examination. Patient has responded to IV diuretics since admission now "feels back to baseline". Denies chest pains, tachypalpitations, syncope, near syncope. Notes no fevers chills unexplained infections. Asthmatic lung disease per patient has been stable though patient only fair historian. Denies any acute weight loss or gain. Has not been checking blood pressures recently. Allergies Allergy/AdvReac Type Severity Reaction Status Date / Time FELECIA Inhibitors Allergy Unknown ? - Verified 04/25/19 10:30 TOLERATES LOSARTAN AT HOME Sulfa (Sulfonamide Allergy Unknown . Verified 04/25/19 10:30 Antibiotics) pseudoephedrine AdvReac Intermediate TEMP ELEV Verified 04/25/19 10:30 prednisone AdvReac Unknown BLISTERS Verified 04/25/19 10:30 IN THROAT Home Medications Home Medications Medication Instructions Recorded Confirmed Type albuterol sulfate [Proventil HFA] 1 puff INHALATION DIRECTED PRN 06/07/18 04/25/19 History aspirin [Aspirin Low Dose] 81 mg PO MOWEFR@0906/07/18 04/25/19 History clopidogrel [Plavix] 75 mg PO DAILY 06/07/18 04/25/19 History digoxin 0.125 mg PO DIRECTED 06/07/18 04/25/19 History dutasteride 0.5 mg PO DAILY 06/07/18 04/25/19 History fluticasone propion-salmeterol 1 inh INHALATION BID 06/07/18 04/25/19 History [Advair Diskus] furosemide [Lasix] 80 mg PO MOWEFR@89906/07/18 04/25/19 History glimepiride 2 mg PO QAM 06/07/18 04/25/19 History losartan [Cozaar] 100 mg PO DAILY 06/07/18 04/25/19 History magnesium oxide 400 mg PO DAILY 06/07/18 04/25/19 History metformin 850 mg PO BIDM 06/07/18 04/25/19 History metoprolol succinate [Toprol XL] 50 mg PO QAM 06/07/18 04/25/19 History multivitamin 1 tab PO DAILY 06/07/18 04/25/19 History potassium chloride [Klor-Con M20] 20 meq PO DAILY 06/07/18 04/25/19 History ranitidine HCl [Zantac] 150 mg PO Q12 06/07/18 04/25/19 History simvastatin [Zocor] 40 mg PO DAILY 06/07/18 04/25/19 History tamsulosin [Flomax] 0.4 mg PO DAILY 06/07/18 04/25/19 History triamcinolone acetonide 1 applic TOPICAL DIRECTED 06/07/18 04/25/19 History acetaminophen [Tylenol Extra 1,000 mg PO BID 04/25/19 04/25/19 History Strength] baclofen 10 mg PO HS PRN 04/25/19 04/25/19 History furosemide [Lasix] 40 mg PO SUTUTHSA@0900 04/25/19 04/25/19 History Patient History Medical History BPH (benign prostatic hyperplasia) (Chronic) Aortic valve insufficiency (Chronic) Ischemic cardiomyopathy (Chronic) Dyslipidemia (Chronic) Moderate persistent asthma (Chronic) Persistent atrial fibrillation (Chronic) Tachy-lorna syndrome (Chronic) CAD (coronary artery disease) (Chronic 08/21/14) Type II diabetes mellitus (Chronic) HTN (hypertension) (Chronic) 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) Hematuria (Inactive) Surgical History S/P coronary artery stent placement (Chronic) July 2014 with stenting of the proximal circumflex Status post implantation of automatic cardioverter/defibrillator (AICD) (Chronic) S/P CABG x 3 (Chronic) 1999 Family History Other Melanoma Social History Preferred Language: Wallisian Communication Ability: Impaired Communication Ability Comment: kenaitze despite b/l hall Agent Based Modeler Required: No Beliefs That Will Affect Care: None marital status: Current Living Situation: Spouse Other Information That Helps Us Care for You: No Feels Safe at Home: Yes Safety Concerns: Feels Safe At This Time Smoking Status: Former smoker Do You Dip or Chew Tobacco: No Smoking End Date: 1969 Second Hand Exposure: No Hx Alcohol Use: Yes Hx Substance Use: No Physical Exam Constitutional: WD/WN, vitals as above Eyes: PERRL, conjunctivae normal, anicteric sclerae ENMT: external ear and nose normal, oropharynx normal Neck: trachea midline, no thyromegaly Respiratory: normal respiratory effort, lungs clear to auscultation No significant wheezing Cardiovascular: Rate/Rhythm: regular rate and regular rhythm (Paced) Heart Sounds: normal S1, normal S2 and + murmur (2/6 systolic no audible diastolic); no gallop Palpation: normal PMI Vessels: normal carotid upstroke and radial pulses present; no JVD and no carotid bruit Extremities: + edema (Trace) Gastrointestinal (Abdomen): normal bowel sounds, soft, nontender, no hepatosplenomegaly Musculoskeletal: no cyanosis or clubbing, extremities motor strength 5/5 Skin: no rashes, warm and dry Neurologic: PERRL, EOMI, accommodation nl, no face palsy, no dysarthria Psychiatric: A+Ox3, euthymic affect Results & Data Vital Signs (Past 12 Hours) Vital Signs Temp Pulse Pulse Resp BP BP Pulse Ox 04/26/19 07:55 73 04/26/19 07:35 36.8 C 71 20 177/69 H 94 04/26/19 07:13 70 20 98 04/26/19 03:48 36.8 C 74 22 168/75 H 99 04/26/19 00:13 36.6 C 64 20 156/67 H 97 Laboratory Results Laboratory Results - last 24 hr 04/25/19 04/25/19 04/25/19 11:32 11:32 11:32 WBC 7.06 RBC 3.36 L Hgb 10.6 L Hct 32.0 L MCV 95.2 MCH 31.5 MCHC 33.1 RDW Std Deviation 49.2 H RDW Coeff of Mar[place] 14.2 Plt Count 136 MPV 10.0 Immature Gran % (Auto) 0.1 Neut % (Auto) 71.5 Lymph % (Auto) 13.7 Collin % (Auto) 11.6 Eos % (Auto) 3.0 Baso % (Auto) 0.1 Immature Gran # (Auto) 0.01 Neut # (Auto) 5.04 Lymph # (Auto) 0.97 L Collin # (Auto) 0.82 H Eos # (Auto) 0.21 Baso # (Auto) 0.01 PT 11.3 INR 1.1 APTT 26.8 PTT Ratio 1.0 POC D-Dimer VBG pH Sodium 143 Potassium 4.3 Chloride 111 H Carbon Dioxide 22 Anion Gap 10.0 BUN 14 Creatinine 0.86 Est Cr Clr Drug Dosing 77.1 Est GFR ( Amer) 91.6 Est GFR (Non-Af Amer) 79.1 BUN/Creatinine Ratio 15.9 Glucose 130 H POC Glucose Estimat Average Glucose Hemoglobin A1c Calcium 8.3 L Phosphorus 3.3 Magnesium 2.1 Total Bilirubin 0.8 AST 16 ALT 18 Alkaline Phosphatase 45 Troponin I 0.018 NT-Pro-B Natriuret Pep 3637 H Total Protein 7.5 Albumin 3.0 L Globulin 4.5 H Albumin/Globulin Ratio 0.7 L Urine Color Urine Appearance Urine pH Ur Specific [place] Urine Protein Urine Glucose (UA) Urine Ketones Urine Blood Urine Nitrite Urine Bilirubin Urine Urobilinogen Ur Leukocyte Esterase Urine WBC (Auto) Urine RBC (Auto) U Hyaline Cast (Auto) U Epithel Cells (Auto) Urine Bacteria (Auto) 04/25/19 04/25/19 04/25/19 11:42 13:10 14:23 WBC RBC Hgb Hct MCV MCH MCHC RDW Std Deviation RDW Coeff of [place] Plt Count MPV Immature Gran % (Auto) Neut % (Auto) Lymph % (Auto) Collin % (Auto) Eos % (Auto) Baso % (Auto) Immature Gran # (Auto) Neut # (Auto) Lymph # (Auto) Collin # (Auto) Eos # (Auto) Baso # (Auto) PT INR APTT PTT Ratio POC D-Dimer 332 VBG pH 7.40 Sodium Potassium Chloride Carbon Dioxide Anion Gap BUN Creatinine Est Cr Clr Drug Dosing Est GFR ( Amer) Est GFR (Non-Af Amer) BUN/Creatinine Ratio Glucose POC Glucose Estimat Average Glucose Hemoglobin A1c Calcium Phosphorus Magnesium Total Bilirubin AST ALT Alkaline Phosphatase Troponin I NT-Pro-B Natriuret Pep Total Protein Albumin Globulin Albumin/Globulin Ratio Urine Color Yellow Urine Appearance Clear Urine pH 5.0 Ur Specific [place] 1.014 Urine Protein Negative Urine Glucose (UA) Negative Urine Ketones Negative Urine Blood Trace H Urine Nitrite Negative Urine Bilirubin Negative Urine Urobilinogen Negative Ur Leukocyte Esterase Negative Urine WBC (Auto) 1-5 Urine RBC (Auto) 0-4 U Hyaline Cast (Auto) 0 U Epithel Cells (Auto) 5-10 H Urine Bacteria (Auto) Negative 04/25/19 04/25/19 04/25/19 16:33 17:27 19:59 WBC RBC Hgb Hct MCV MCH MCHC RDW Std Deviation RDW Coeff of [place] Plt Count MPV Immature Gran % (Auto) Neut % (Auto) Lymph % (Auto) Collin % (Auto) Eos % (Auto) Baso % (Auto) Immature Gran # (Auto) Neut # (Auto) Lymph # (Auto) Collin # (Auto) Eos # (Auto) Baso # (Auto) PT INR APTT PTT Ratio POC D-Dimer VBG pH Sodium Potassium Chloride Carbon Dioxide Anion Gap BUN Creatinine Est Cr Clr Drug Dosing Est GFR ( Amer) Est GFR (Non-Af Amer) BUN/Creatinine Ratio Glucose POC Glucose 126 H 166 H Estimat Average Glucose Hemoglobin A1c Calcium Phosphorus Magnesium Total Bilirubin AST ALT Alkaline Phosphatase Troponin I 0.025 NT-Pro-B Natriuret Pep Total Protein Albumin Globulin Albumin/Globulin Ratio Urine Color Urine Appearance Urine pH Ur Specific [place] Urine Protein Urine Glucose (UA) Urine Ketones Urine Blood Urine Nitrite Urine Bilirubin Urine Urobilinogen Ur Leukocyte Esterase Urine WBC (Auto) Urine RBC (Auto) U Hyaline Cast (Auto) U Epithel Cells (Auto) Urine Bacteria (Auto) 04/25/19 04/26/19 04/26/19 23:20 05:36 05:36 WBC 5.19 RBC 3.41 L Hgb 11.0 L Hct 33.0 L MCV 96.8 MCH 32.3 MCHC 33.3 RDW Std Deviation 50.3 H RDW Coeff of [place] 14.2 Plt Count 152 MPV 9.7 Immature Gran % (Auto) Neut % (Auto) Lymph % (Auto) Collin % (Auto) Eos % (Auto) Baso % (Auto) Immature Gran # (Auto) Neut # (Auto) Lymph # (Auto) Collin # (Auto) Eos # (Auto) Baso # (Auto) PT INR APTT PTT Ratio POC D-Dimer VBG pH Sodium Potassium Chloride Carbon Dioxide Anion Gap BUN Creatinine Est Cr Clr Drug Dosing Est GFR ( Amer) Est GFR (Non-Af Amer) BUN/Creatinine Ratio Glucose POC Glucose Estimat Average Glucose 140 Hemoglobin A1c 6.5 H Calcium Phosphorus Magnesium Total Bilirubin AST ALT Alkaline Phosphatase Troponin I 0.021 NT-Pro-B Natriuret Pep Total Protein Albumin Globulin Albumin/Globulin Ratio Urine Color Urine Appearance Urine pH Ur Specific [place] Urine Protein Urine Glucose (UA) Urine Ketones Urine Blood Urine Nitrite Urine Bilirubin Urine Urobilinogen Ur Leukocyte Esterase Urine WBC (Auto) Urine RBC (Auto) U Hyaline Cast (Auto) U Epithel Cells (Auto) Urine Bacteria (Auto) 04/26/19 04/26/19 05:36 07:22 WBC RBC Hgb Hct MCV MCH MCHC RDW Std Deviation RDW Coeff of [place] Plt Count MPV Immature Gran % (Auto) Neut % (Auto) Lymph % (Auto) Collin % (Auto) Eos % (Auto) Baso % (Auto) Immature Gran # (Auto) Neut # (Auto) Lymph # (Auto) Collin # (Auto) Eos # (Auto) Baso # (Auto) PT INR APTT PTT Ratio POC D-Dimer VBG pH Sodium 141 Potassium 3.7 Chloride 105 Carbon Dioxide 30 Anion Gap 6.0 BUN 18 Creatinine 1.03 Est Cr Clr Drug Dosing 63.0 Est GFR ( Amer) 76.4 Est GFR (Non-Af Amer) 65.9 BUN/Creatinine Ratio 17.1 Glucose 114 H POC Glucose 126 H Estimat Average Glucose Hemoglobin A1c Calcium 8.2 L Phosphorus Magnesium Total Bilirubin AST ALT Alkaline Phosphatase Troponin I NT-Pro-B Natriuret Pep Total Protein Albumin Globulin Albumin/Globulin Ratio Urine Color Urine Appearance Urine pH Ur Specific [place] Urine Protein Urine Glucose (UA) Urine Ketones Urine Blood Urine Nitrite Urine Bilirubin Urine Urobilinogen Ur Leukocyte Esterase Urine WBC (Auto) Urine RBC (Auto) U Hyaline Cast (Auto) U Epithel Cells (Auto) Urine Bacteria (Auto) Diagnostic Findings Echocardiogram November 2018 The left ventricular cavity size is normal. The LV wall thickness is mildly increased (concentric). The left ventricular wall motion is normal. The qualitative LV ejection fraction is 60-64% (normal). Moderate aortic valve sclerosis is present. Moderate to severe aortic regurgitation is present. Mild mitral regurgitation is present. Mild tricuspid regurgitation is present. The aortic root and proximal ascending aorta are normal sized. The left atrium is severely enlarged (>48 ml/m^2,). Compared to prior study of 08/23/2016, there is no significant change.
[2019-04-26] MEDS ORDERED: ALBUT/IPRATROP 3MG/0.5MG NEB 3 ML VIAL NEB PRN (10:06)
[2019-04-26] MEDS ORDERED: TERAZOSIN HCL 1 MG CAP PO ONE (10:45)
--- NOTE | 2019-04-26 14:16 | Hospitalist Progress Note ---
Date of Service April 26, 2019 Assessment & Plan (1) Acute decompensated heart failure: This is an 84-year-old male with a PMH of mixed ischemic and valvular heart disease, DM II, asthma, CAD (s/p stent, CABG), CKD III, persistent atrial fibrillation (anticoagulation contraindicated), tachybradycardia syndrome s/p AICD, HTN and other medical problems listed below who presents with shortness of breath starting during the night and was found to have acute decompensated CHF. -Secondary to mild volume overload and superimposed with hypertension/hypertensive urgency -H/o mixed ischemic cardiomyopathy and valvular disease -Last 2D echo in November 2018 with preserved EF 60 to 64% with moderate to severe aortic regurgitation -Given 40mg IV Lasix in ED. Continue 40mg IV Lasix BID -Strict I&Os, daily weights -Diuresed a lot and has been feeling a lot better and wants to go home -Appreciate cardiology input and recommendation -Serial cardiac enzymes have been negative for any ACS (2) Moderate persistent asthma: Scattered wheezes on exam in setting of asthma, ? COPD (patient endorses, not seen in Epic documentation) -VBG pH normal at 7.4, patient saturating in high 90s on 2L NC -Received duonebs Q4H and did not require any steroid -We will change nebs to inhalers as needed to avoid any tachycardia induced worsening of CHF -Clinically denies any shortness of breath (3) CAD (coronary artery disease): H/o CABG in 1999, stent in 2013 -No chest pain, EKG with ventricular-paced rhythm -Initial troponin negative and subsequent troponins were negative to -Continue aspirin, plavix, statin, beta mike (4) Persistent atrial fibrillation: Currently in ventricular-paced rhythm -Given missed home doses of digoxin -Not on anticoagulation due to hematuria in the past. Able to tolerate plavix (5) HTN (hypertension): Given missed dose of Losartan -Continue Lopressor -Simran Zosyn was added for better control of blood pressure -Likely to give him tonight and possible discharge tomorrow (6) Type II diabetes mellitus: A1c of 7.1 in December 2018. Repeat ordered -Hold home agents -SSI while in-patient -BSG AC HS (7) CKD stage 3 due to type 2 diabetes mellitus: Kidney function at baseline -Continue to monitor with daily BMP -Kidney function remains stable (8) Dyslipidemia: Continue statin (9) BPH (benign prostatic hyperplasia): Continue Flomax, Avodart DVT Ppx: SQ heparin Q12H Code status: FULL per discussion with patient PCP: Ricarda Dispo: Admitted to telemetry. Plan to return home once medically stable. Subjective 04/26 The patient was seen and examined in telemetry unit He was admitted with symptomatic CHF Has been feeling a lot better following much diuresis Denies any symptoms during my examination Review of Systems Review of Systems: All systems reviewed and are unremarkable except as noted below Respiratory: + dyspnea on exertion; no dyspnea Cardiovascular: + edema (Trace and improved); no chest pain and no palpitations Physical Exam Physical Exam: No apparent distress at rest Constitutional: well developed and well nourished; no acute distress and not ill appearing Eyes: PERRL, conjunctivae normal, anicteric sclerae ENMT: external ear and nose normal, oropharynx normal Neck: trachea midline, no thyromegaly Respiratory: normal respiratory effort; no respiratory distress Auscultation: lungs clear to auscultation bilaterally Cardiovascular: Rate/Rhythm: regular rate and regular rhythm (Paced) Heart Sounds: normal S2 and + murmur (2/6 systolic no audible diastolic) Vessels: radial pulses present Extremities: + edema (Trace bilateral) Gastrointestinal (Abdomen): Inspection/Auscultation: abdomen normal to inspection and normal bowel sounds Percussion/Palpation: abdomen soft Skin: no rashes, warm and dry Neurologic: PERRL, EOMI, accommodation nl, no face palsy, no dysarthria Psychiatric: A+Ox3, euthymic affect Results & Data Vital Signs (Past 12 Hours) Vital Signs Temp Pulse Pulse Pulse Resp BP BP 04/26/19 13:44 74 17 133/56 L 04/26/19 11:04 36.9 C 69 18 146/64 H 04/26/19 07:55 73 04/26/19 07:35 36.8 C 71 20 177/69 H 04/26/19 07:13 70 20 04/26/19 03:48 36.8 C 74 22 168/75 H Pulse Ox 04/26/19 13:44 93 04/26/19 11:04 96 04/26/19 07:55 04/26/19 07:35 94 04/26/19 07:13 98 04/26/19 03:48 99 Laboratory Results Short CBC 07/26/19 Range/Units 05:36 WBC 5.19 (4.8-10.8) K/uL Hgb 11.0 L (14.0-18.0) g/dL Hct 33.0 L (42-52) % Plt Count 152 (130-400) K/uL BMP 04/26/19 05:36 Sodium 141 Potassium 3.7 Chloride 105 Carbon Dioxide 30 BUN 18 Creatinine 1.03 Glucose 114 H Calcium 8.2 L Cardiac Enzymes 04/25/19 04/25/19 Range/Units 17:27 23:20 Troponin I 0.025 0.021 (0-0.045) ng/ml Urine 04/25/19 Range/Units 13:10 Urine Color Yellow Urine Appearance Clear (Clear) Urine pH 5.0 (4.5-7.5) Ur Specific [place] 1.014 (1.000-1.030) Urine Protein Negative (Negative) Urine Glucose (UA) Negative (Negative) Medications Administered Current Inpatient Medications Acetaminophen (Tylenol) 650 mg PO Q4H PRN PRN Reason: Pain or Fever Stop: 05/25/19 15:22 Acetaminophen (Tylenol) 1,000 mg PO BID [facility] Stop: 05/25/19 20:59 Last Admin: 04/26/19 08:26 Dose: 1,000 mg Documented by: Albuterol (Ventolin Hfa) 1 puffs INH DAILY PRN PRN Reason: Shortness Of Breath Stop: 05/25/19 15:22 Albuterol (Duoneb) 3 ml NEB QIDR PRN PRN Reason: Shortness Of Breath Or Wheezing Stop: 05/25/19 14:14 Aspirin (Ecotrin Ectab) 81 mg PO MOWEFR@0900 [facility] Stop: 05/26/19 08:59 Last Admin: 04/26/19 08:24 Dose: 81 mg Documented by: Baclofen (Lioresal) 10 mg PO HS PRN PRN Reason: Back Pain Stop: 05/25/19 15:22 Clopidogrel Bisulfate (Plavix) 75 mg PO DAILY [facility] Stop: 05/26/19 08:59 Last Admin: 04/26/19 08:25 Dose: 75 mg Documented by: Dextrose (Dextrose 50%) 25 - 50 ml IV UD PRN; Protocol PRN Reason: Hypoglycemia Protocol Stop: 05/25/19 16:48 Digoxin (Lanoxin) 0.125 mg PO SuTuThSa@1600 [facility] Stop: 05/25/19 15:59 Last Admin: 04/25/19 16:45 Dose: 0.125 mg Documented by: Digoxin (Lanoxin) 0.25 mg PO MoWeFr@1600 [facility] Stop: 05/26/19 15:59 Furosemide (Lasix) 60 mg PO QAM [facility] Stop: 05/27/19 08:59 Glucagon (Glucagen) 1 mg SQ UD PRN; Protocol PRN Reason: Hypoglycemia Protocol Stop: 05/25/19 16:48 Glucose (Glucose 40%) 15 - 30 gm PO UD PRN; Protocol PRN Reason: Hypoglycemia Protocol Stop: 05/25/19 16:48 Glucose (Dex4 Glucose) 4 - 8 tabs PO UD PRN; Protocol PRN Reason: Hypoglycemia Protocol Stop: 05/25/19 16:48 Heparin Sodium (Porcine) (Heparin Sodium (Porcine)) 5,000 units SQ Q12 [facility] Stop: 05/25/19 20:59 Last Admin: 04/26/19 08:23 Dose: 5,000 units Documented by: Furosemide 40 mg/ Syringe 4 mls @ 4 mls/min IV BID [facility] Stop: 05/25/19 20:59 Last Admin: 04/26/19 08:21 Dose: 4 mls/min Documented by: Insulin Aspart (Novolog Flexpen) 0 units SC ACHS [facility] Stop: 05/25/19 20:59 Last Admin: 04/26/19 12:09 Dose: 10 units Documented by: Losartan Potassium (Cozaar) 100 mg PO DAILY [facility] Stop: 05/26/19 08:59 Last Admin: 04/26/19 08:25 Dose: 100 mg Documented by: Magnesium Oxide (Mag-Ox) 400 mg PO DAILY [facility] Stop: 05/26/19 08:59 Last Admin: 04/26/19 08:25 Dose: 400 mg Documented by: Metoprolol Succinate (Toprol Xl) 50 mg PO QAM [facility] Stop: 05/26/19 08:59 Last Admin: 04/26/19 08:24 Dose: 50 mg Documented by: Miscellaneous (Order Awaiting Action) 1 ea N/A QS [facility] Stop: 05/25/19 15:59 Last Admin: 04/26/19 07:17 Dose: Not Given Documented by: Miscellaneous (Carbohydrates For Hypoglycemia) 15 - 30 gm PO UD PRN PRN Reason: Hypoglycemia Treatment Stop: 05/25/19 16:48 Multivitamins (Multivitamin Tab) 1 tab PO DAILY [facility] Stop: 05/26/19 08:59 Last Admin: 04/26/19 08:26 Dose: 1 tab Documented by: Ondansetron HCl (Zofran) 4 mg IV Q6H PRN PRN Reason: Nausea Stop: 05/25/19 15:22 Polyethylene Glycol (Miralax Powder Packet) 17 gm PO DAILY PRN PRN Reason: Constipation Stop: 05/25/19 15:22 Potassium Chloride (Klor-Con M20) 20 meq PO DAILY [facility] Stop: 05/26/19 08:59 Last Admin: 04/26/19 08:24 Dose: 20 meq Documented by: Ranitidine HCl (Zantac) 150 mg PO Q12 [facility] Stop: 05/25/19 20:59 Last Admin: 04/26/19 08:23 Dose: 150 mg Documented by: Fluticasone/Salmeterol (Advair Diskus 250/50) 1 puffs INH BID [facility] Stop: 05/25/19 20:59 Last Admin: 04/26/19 08:22 Dose: 1 puffs Documented by: Simvastatin (Zocor) 40 mg PO DAILY [facility] Stop: 05/26/19 08:59 Last Admin: 04/26/19 08:24 Dose: 40 mg Documented by: Tamsulosin HCl (Flomax) 0.4 mg PO DAILY [facility] Stop: 05/26/19 08:59 Last Admin: 04/26/19 08:23 Dose: 0.4 mg Documented by: Terazosin HCl (Hytrin) 2 mg PO HS [facility] Stop: 05/26/19 20:59 Triamcinolone Acetonide (Kenalog 0.5%) 1 appln EXT DAILY PRN PRN Reason: Affected Skin Folds Stop: 05/25/19 15:50
[2019-04-26] MEDS ORDERED: DIGOXIN 0.125 MG TAB PO SCH (16:00)
[2019-04-26] MEDS ORDERED: TERAZOSIN HCL 1 MG CAP PO SCH (21:00)
[2019-04-27 06:25] LABS: Hematocrit (blood only) 32.5 % (42-52); Hemoglobin 10.8 g/dL (14.0-18.0); Mean Corpuscular Hgb Conc 33.2 g/dL (32-36); Mean Corpuscular Volume 95.9 fL (80-100); Mean Platelet Volume 9.7 fL (7.4-10.4); Platelet Count 149 K/uL (130-400); RDW Coefficient of Variation 14.1 % (11.5-14.5); RDW Standard Deviation 48.9 fL (36.4-46.3); Red Blood Count 3.39 M/uL (4.7-6.1); White Blood Count 4.53 K/uL (4.8-10.8)
[2019-04-27 06:54] LABS: BUN Creatinine Ratio 19.2 (10-20); Calcium 8.2 mg/dl (8.5-10.1); Creatinine Clr Calc Pharmacy 62.3 ml/min; Est GFR (African American) 75.5; Est GFR (Non-African American) 65.2; Magnesium 2.3 mg/dl (1.8-2.4); Potassium 3.8 mmol/L (3.5-5.1)
[2019-04-27] MEDS: CLOPIDOGREL BISULFATE 75 MG TAB PO SCH (08:49)
[2019-04-27] MEDS: LOSARTAN POTASSIUM 50 MG TAB PO SCH (08:49)
[2019-04-27] MEDS: POTASSIUM CHLORIDE 20 MEQ TABCR PO SCH (08:50)
[2019-04-27] MEDS: TAMSULOSIN HCL 0.4 MG CAP PO SCH (08:50)
[2019-04-27] MEDS: SIMVASTATIN 40 MG TAB PO SCH (08:50)
[2019-04-27] MEDS: MULTIVITAMIN TAB PO SCH (08:50)
[2019-04-27] MEDS: MAGNESIUM OXIDE 400 MG TAB PO SCH (08:50)
[2019-04-27] MEDS: METOPROLOL SUCC 50MG EXT REL TAB PO SCH (08:50)
[2019-04-27] MEDS: FLUTICASONE/SALMETEROL 250/50 (ADVAIR) 14 PUFF/1 INHALER INH SCH (08:51)
[2019-04-27] MEDS: ACETAMINOPHEN 500 MG TAB PO SCH (08:51)
[2019-04-27] MEDS: HEPARIN SOD 5,000 UNIT/0.5 ML VIAL SQ SCH (08:51)
[2019-04-27] MEDS: INSULIN ASPART 100 UNITS/ML 3 ML PEN SC SCH ×2 (08:52→11:57)
[2019-04-27] MEDS ORDERED: FUROSEMIDE 20 MG TAB PO SCH (09:00)
--- NOTE | 2019-04-27 11:36 | Cardiology Progress Note ---
Date of Service April 27, 2019 Assessment & Plan (1) Acute decompensated heart failure: Suspect mild volume overload superimposed on hypertension/hypertensive urgency as cause. No signs of ischemia by troponin Patient has responded to IV diuretics would give additional IV diuretic dose x1 then resume usual oral dosing We will add terazosin to regimen for further hypertension control Patient doing well today no acute complaints resuming usual medications with the addition of terazosin Plan titrate terazosin to 5 mg nightly on discharge, plan later today (2) Aortic valve insufficiency: (3) Hypertensive urgency: (4) Ischemic cardiomyopathy: Last echocardiogram demonstrating preserved LV systolic function (5) Status post biventricular pacemaker: Last device check November 2018 normal device function greater than 90% by V pacing with appropriate battery life Subjective Improved today, ambulatory in room no further dyspnea or shortness of breath no tachypalpitations. No chest discomfort Physical Exam Constitutional: WD/WN, vitals as above Eyes: PERRL, conjunctivae normal, anicteric sclerae ENMT: external ear and nose normal, oropharynx normal Neck: trachea midline, no thyromegaly Respiratory: normal respiratory effort, lungs clear to auscultation Cardiovascular: Rate/Rhythm: regular rate and regular rhythm (Paced) Heart Sounds: normal S1, normal S2 and + murmur (2/6 systolic no audible diastolic); no gallop Palpation: normal PMI Vessels: normal carotid upstroke and radial pulses present; no JVD and no carotid bruit Extremities: + edema (Trace) Gastrointestinal (Abdomen): normal bowel sounds, soft, nontender, no hepatosplenomegaly Musculoskeletal: no cyanosis or clubbing, extremities motor strength 5/5 Skin: no rashes, warm and dry Neurologic: PERRL, EOMI, accommodation nl, no face palsy, no dysarthria Psychiatric: A+Ox3, euthymic affect Results & Data Vital Signs (Past 12 Hours) Vital Signs Temp Pulse Resp BP Pulse Ox 04/27/19 07:18 36.6 C 74 18 151/80 H 98 04/27/19 04:09 36.4 C L 71 19 156/80 H 98 Laboratory Results Laboratory Results - last 24 hr 04/26/19 04/26/19 04/26/19 11:32 16:17 20:06 WBC RBC Hgb Hct MCV MCH MCHC RDW Std Deviation RDW Coeff of Maricarmen Plt Count MPV Sodium Potassium Chloride Carbon Dioxide Anion Gap BUN Creatinine Est Cr Clr Drug Dosing Est GFR ( Amer) Est GFR (Non-Af Amer) BUN/Creatinine Ratio Glucose POC Glucose 176 H 127 H 133 H Calcium Magnesium 04/27/19 04/27/19 04/27/19 06:08 06:08 07:41 WBC 4.53 L RBC 3.39 L Hgb 10.8 L Hct 32.5 L MCV 95.9 MCH 31.9 MCHC 33.2 RDW Std Deviation 48.9 H RDW Coeff of Maricarmen 14.1 Plt Count 149 MPV 9.7 Sodium 141 Potassium 3.8 Chloride 105 Carbon Dioxide 29 Anion Gap 7.0 BUN 20 H Creatinine 1.04 Est Cr Clr Drug Dosing 62.3 Est GFR ( Amer) 75.5 Est GFR (Non-Af Amer) 65.2 BUN/Creatinine Ratio 19.2 Glucose 128 H POC Glucose 137 H Calcium 8.2 L Magnesium 2.3 04/27/19 11:30 WBC RBC Hgb Hct MCV MCH MCHC RDW Std Deviation RDW Coeff of Maricarmen Plt Count MPV Sodium Potassium Chloride Carbon Dioxide Anion Gap BUN Creatinine Est Cr Clr Drug Dosing Est GFR ( Amer) Est GFR (Non-Af Amer) BUN/Creatinine Ratio Glucose POC Glucose 200 H Calcium Magnesium
--- NOTE | 2019-04-27 11:38 | Hospitalist Progress Note ---
Date of Service April 27, 2019 Assessment & Plan (1) Acute decompensated heart failure: This is an 84-year-old male with a PMH of mixed ischemic and valvular heart disease, DM II, asthma, CAD (s/p stent, CABG), CKD III, persistent atrial fibrillation (anticoagulation contraindicated), tachybradycardia syndrome s/p AICD, HTN and other medical problems listed below who presents with shortness of breath starting during the night and was found to have acute decompensated CHF. -Has Acute heart failure with preserved EF -Secondary to mild volume overload and superimposed with hypertension/hypertensive urgency -H/o mixed ischemic cardiomyopathy and valvular disease -Last 2D echo in November 2018 with preserved EF 60 to 64% with moderate to severe aortic regurgitation -Given 40mg IV Lasix in ED. Continue 40mg IV Lasix BID -Strict I&Os, daily weights -Diuresed a lot and has been feeling a lot better and wants to go home -Appreciate cardiology input and recommendation -Serial cardiac enzymes have been negative for any ACS -Asymptomatic (2) Moderate persistent asthma: Scattered wheezes on exam in setting of asthma, ? COPD (patient endorses, not seen in Epic documentation) -VBG pH normal at 7.4, patient saturating in high 90s on 2L NC -Received duonebs Q4H and did not require any steroid -We will change nebs to inhalers as needed to avoid any tachycardia induced worsening of CHF -Clinically denies any shortness of breath (3) CAD (coronary artery disease): H/o CABG in 1999, stent in 2013 -No chest pain, EKG with ventricular-paced rhythm -Initial troponin negative and subsequent troponins were negative to -Continue aspirin, plavix, statin, beta mike (4) Persistent atrial fibrillation: Currently in ventricular-paced rhythm -Given missed home doses of digoxin -Not on anticoagulation due to hematuria in the past. Able to tolerate plavix (5) HTN (hypertension): Given missed dose of Losartan -Continue Lopressor -Simran Zosyn was added for better control of blood pressure -Likely to give him tonight and possible discharge tomorrow -Blood pressure has been improving with addition of terazosin (6) Type II diabetes mellitus: A1c of 7.1 in December 2018. Repeat ordered -Hold home agents -SSI while in-patient -BSG AC HS (7) CKD stage 3 due to type 2 diabetes mellitus: Kidney function at baseline -Continue to monitor with daily BMP -Kidney function remains stable and normal (8) Dyslipidemia: Continue statin (9) BPH (benign prostatic hyperplasia): Continue Flomax, Avodart DVT Ppx: SQ heparin Q12H Code status: FULL per discussion with patient PCP: Ricarda Dispo: Admitted to telemetry. Plan to return home once medically stable. He will be discharged today Subjective 04/26 The patient was seen and examined in telemetry unit He was admitted with symptomatic CHF Has been feeling a lot better following much diuresis Denies any symptoms during my examination 04/27 The patient was seen and examined in telemetry floor He denies any symptoms of shortness of breath and/or edema He has been ambulating without any problem Blood pressure is controlled He wants to go home Review of Systems Review of Systems: All systems reviewed and are unremarkable except as noted below Respiratory: + dyspnea on exertion; no dyspnea Cardiovascular: + edema (Trace and improved); no chest pain and no palpitations Physical Exam Physical Exam: Lying in bed comfortably Constitutional: well developed and well nourished; no acute distress and not ill appearing Eyes: PERRL, conjunctivae normal, anicteric sclerae ENMT: external ear and nose normal, oropharynx normal Neck: trachea midline, no thyromegaly Respiratory: normal respiratory effort; no respiratory distress Auscultation: lungs clear to auscultation bilaterally Cardiovascular: Rate/Rhythm: regular rate and regular rhythm (Paced) Heart Sounds: normal S2 and + murmur (2/6 systolic no audible diastolic) Vessels: radial pulses present Gastrointestinal (Abdomen): Inspection/Auscultation: abdomen normal to inspection and normal bowel sounds Percussion/Palpation: abdomen soft Skin: no rashes, warm and dry Neurologic: PERRL, EOMI, accommodation nl, no face palsy, no dysarthria Psychiatric: A+Ox3, euthymic affect Results & Data Vital Signs (Past 12 Hours) Vital Signs Temp Pulse Resp BP Pulse Ox 04/27/19 07:18 36.6 C 74 18 151/80 H 98 04/27/19 04:09 36.4 C L 71 19 156/80 H 98 Laboratory Results Short CBC 04/27/19 Range/Units 06:08 WBC 4.53 L (4.8-10.8) K/uL Hgb 10.8 L (14.0-18.0) g/dL Hct 32.5 L (42-52) % Plt Count 149 (130-400) K/uL BMP 04/27/19 06:08 Sodium 141 Potassium 3.8 Chloride 105 Carbon Dioxide 29 BUN 20 H Creatinine 1.04 Glucose 128 H Calcium 8.2 L Medications Administered Current Inpatient Medications Acetaminophen (Tylenol) 650 mg PO Q4H PRN PRN Reason: Pain or Fever Stop: 05/25/19 15:22 Acetaminophen (Tylenol) 1,000 mg PO BID [facility] Stop: 05/25/19 20:59 Last Admin: 04/27/19 08:51 Dose: 1,000 mg Documented by: Albuterol (Ventolin Hfa) 1 puffs INH DAILY PRN PRN Reason: Shortness Of Breath Stop: 05/25/19 15:22 Albuterol (Duoneb) 3 ml NEB QIDR PRN PRN Reason: Shortness Of Breath Or Wheezing Stop: 05/25/19 14:14 Aspirin (Ecotrin Ectab) 81 mg PO MOWEFR@0900 [facility] Stop: 05/26/19 08:59 Last Admin: 04/26/19 08:24 Dose: 81 mg Documented by: Baclofen (Lioresal) 10 mg PO HS PRN PRN Reason: Back Pain Stop: 05/25/19 15:22 Clopidogrel Bisulfate (Plavix) 75 mg PO DAILY [facility] Stop: 05/26/19 08:59 Last Admin: 04/27/19 08:49 Dose: 75 mg Documented by: Dextrose (Dextrose 50%) 25 - 50 ml IV UD PRN; Protocol PRN Reason: Hypoglycemia Protocol Stop: 05/25/19 16:48 Digoxin (Lanoxin) 0.125 mg PO SuTuThSa@1600 [facility] Stop: 05/25/19 15:59 Last Admin: 04/25/19 16:45 Dose: 0.125 mg Documented by: Digoxin (Lanoxin) 0.25 mg PO MoWeFr@1600 [facility] Stop: 05/26/19 15:59 Last Admin: 04/26/19 17:01 Dose: 0.25 mg Documented by: Furosemide (Lasix) 60 mg PO QAM [facility] Stop: 05/27/19 08:59 Last Admin: 04/27/19 08:50 Dose: 60 mg Documented by: Glucagon (Glucagen) 1 mg SQ UD PRN; Protocol PRN Reason: Hypoglycemia Protocol Stop: 05/25/19 16:48 Glucose (Glucose 40%) 15 - 30 gm PO UD PRN; Protocol PRN Reason: Hypoglycemia Protocol Stop: 05/25/19 16:48 Glucose (Dex4 Glucose) 4 - 8 tabs PO UD PRN; Protocol PRN Reason: Hypoglycemia Protocol Stop: 05/25/19 16:48 Heparin Sodium (Porcine) (Heparin Sodium (Porcine)) 5,000 units SQ Q12 [facility] Stop: 05/25/19 20:59 Last Admin: 04/27/19 08:51 Dose: 5,000 units Documented by: Furosemide 40 mg/ Syringe 4 mls @ 4 mls/min IV BID [facility] Stop: 05/25/19 20:59 Last Admin: 04/26/19 20:59 Dose: 4 mls/min Documented by: Insulin Aspart (Novolog Flexpen) 0 units SC ACHS [facility] Stop: 05/25/19 20:59 Last Admin: 04/27/19 08:52 Dose: 7 units Documented by: Losartan Potassium (Cozaar) 100 mg PO DAILY [facility] Stop: 05/26/19 08:59 Last Admin: 04/27/19 08:49 Dose: 100 mg Documented by: Magnesium Oxide (Mag-Ox) 400 mg PO DAILY [facility] Stop: 05/26/19 08:59 Last Admin: 04/27/19 08:50 Dose: 400 mg Documented by: Metoprolol Succinate (Toprol Xl) 50 mg PO QAM [facility] Stop: 05/26/19 08:59 Last Admin: 04/27/19 08:50 Dose: 50 mg Documented by: Miscellaneous (Order Awaiting Action) 1 ea N/A QS [facility] Stop: 05/25/19 15:59 Last Admin: 04/27/19 08:50 Dose: Not Given Documented by: Miscellaneous (Carbohydrates For Hypoglycemia) 15 - 30 gm PO UD PRN PRN Reason: Hypoglycemia Treatment Stop: 05/25/19 16:48 Multivitamins (Multivitamin Tab) 1 tab PO DAILY [facility] Stop: 05/26/19 08:59 Last Admin: 04/27/19 08:50 Dose: 1 tab Documented by: Ondansetron HCl (Zofran) 4 mg IV Q6H PRN PRN Reason: Nausea Stop: 08/24/19 15:22 Polyethylene Glycol (Miralax Powder Packet) 17 gm PO DAILY PRN PRN Reason: Constipation Stop: 05/25/19 15:22 Potassium Chloride (Klor-Con M20) 20 meq PO DAILY [facility] Stop: 05/26/19 08:59 Last Admin: 04/27/19 08:50 Dose: 20 meq Documented by: Ranitidine HCl (Zantac) 150 mg PO Q12 [facility] Stop: 05/25/19 20:59 Last Admin: 04/27/19 11:27 Dose: Not Given Documented by: Fluticasone/Salmeterol (Advair Diskus 250/50) 1 puffs INH BID [facility] Stop: 05/25/19 20:59 Last Admin: 04/27/19 08:51 Dose: 1 puffs Documented by: Simvastatin (Zocor) 40 mg PO DAILY [facility] Stop: 05/26/19 08:59 Last Admin: 04/27/19 08:50 Dose: 40 mg Documented by: Tamsulosin HCl (Flomax) 0.4 mg PO DAILY [facility] Stop: 05/26/19 08:59 Last Admin: 04/27/19 08:50 Dose: 0.4 mg Documented by: Terazosin HCl (Hytrin) 2 mg PO HS [facility] Stop: 05/26/19 20:59 Last Admin: 04/26/19 21:00 Dose: 2 mg Documented by: Triamcinolone Acetonide (Kenalog 0.5%) 1 appln EXT DAILY PRN PRN Reason: Affected Skin Folds Stop: 05/25/19 15:50
[2019-04-27] MEDS ORDERED: TERAZOSIN HCL 1 MG CAP PO SCH (21:00)
--- NOTE | 2019-04-28 07:58 | Discharge Summary ---
Date of Service April 28, 2019 Admission HPI Per Admitting Provider This is an 84-year-old male with a PMH of mixed ischemic and valvular heart disease, DM II, asthma, CAD (s/p stent, CABG), CKD III, persistent atrial fibrillation (anticoagulation contraindicated), tachybradycardia syndrome s/p AICD, HTN and other medical problems listed below who presents with shortness of breath starting during the night. Patient was sleeping and woke up around midnight feeling short of breath. Was wearing his usual 2 L nasal cannula at bedtime but had to prop himself upright for remainder of the night in order to breathe better. Endorses dry cough. states she took his blood pressure last night and the systolic number was 190. Denies any weight gain or swelling in lower extremities. Has been taking medications regularly except for this morning. Came in the ED for further evaluation. Patient initially found to be hypertensive at 211/94. Oxygen saturation has remained in the high 90s on 2 L nasal cannula, which he normally does not require during the day. Chest x-ray with cardiomegaly and development of mild pulmonary edema. EKG with ventricular paced rhythm. Hemoglobin is stable at 10.6. BNP elevated at 3637. D-dimer normal at 332. Last 2D echo performed in November 2018 with preserved EF 60 to 64% with moderate to severe aortic regurgitation. Last pacemaker interrogation in November 2018. Missed pacer interrogation appointment last month. Denies any fever, chills, lightheadedness, headache, chest pain, palpitations, nausea, vomiting, abdominal pain, dysuria, diarrhea or constipation. Admission Exam Per Admitting Provider Physical Exam: General Appearance: WD/WN, elderly male with some accessory muscle use, on 2L NC 02 Head: normocephalic, atraumatic Eyes: normal inspection, PERRL, EOMI ENT: hearing grossly normal, pharynx normal (moist mucous membranes) Neck: supple, no JVD, no adenopathy Respiratory/Chest: Faint bibasilar crackles, scattered expiratory wheezes, R>L. No rhonci. Some accessory muscle use when speaking Cardiovascular: regular rate, rhythm, no murmur appreciated, normal peripheral pulses, no BLE edema Abdomen/GI: normal bowel sounds, soft, non-tender to palpation Extremities/Musculoskelatal: normal inspection, no calf tenderness, normal capillary refill Neurologic/Psych: alert, normal mood/affect, oriented x 3 Skin: normal color, warm/dry Principal Diagnosis Acute decompensated heart failure/acute heart failure with preserved EF, atrial fibrillation, hypertension, controlled asthma Discharge Exam Constitutional well developed and well nourished; no acute distress and not ill appearing Eyes PERRL, conjunctivae normal, anicteric sclerae ENMT external ear and nose normal, oropharynx normal Neck trachea midline, no thyromegaly Respiratory normal respiratory effort; no respiratory distress Auscultation: lungs clear to auscultation bilaterally Cardiovascular Rate/Rhythm: regular rate and regular rhythm (Paced) Heart Sounds: normal S2 and + murmur (2/6 systolic no audible diastolic) Vessels: radial pulses present Extremities: + edema (Trace bilateral) Gastrointestinal (Abdomen) Inspection/Auscultation: abdomen normal to inspection and normal bowel sounds Percussion/Palpation: abdomen soft Skin no rashes, warm and dry Neurologic PERRL, EOMI, accommodation nl, no face palsy, no dysarthria Psychiatric A+Ox3, euthymic affect Discharge Data Allergies Allergy/AdvReac Type Severity Reaction Status Date / Time FELECIA Inhibitors Allergy Unknown ? - Verified 04/25/19 10:30 TOLERATES LOSARTAN AT HOME Sulfa (Sulfonamide Allergy Unknown . Verified 04/25/19 10:30 Antibiotics) pseudoephedrine AdvReac Intermediate TEMP ELEV Verified 04/25/19 10:30 prednisone AdvReac Unknown BLISTERS Verified 04/25/19 10:30 IN THROAT Consultations 04/25/19 12:39 ED Decision to Admit Stat 04/26/19 08:00 Consult Cardiology Routine Hospital Course (1) Acute decompensated heart failure: This is an 84-year-old male with a PMH of mixed ischemic and valvular heart disease, DM II, asthma, CAD (s/p stent, CABG), CKD III, persistent atrial fibrillation (anticoagulation contraindicated), tachybradycardia syndrome s/p AICD, HTN and other medical problems listed below who presents with shortness of breath starting during the night and was found to have acute decompensated CHF. -Has Acute heart failure with preserved EF -Secondary to mild volume overload and superimposed with hypertension/hypertensive urgency -H/o mixed ischemic cardiomyopathy and valvular disease -Last 2D echo in November 2018 with preserved EF 60 to 64% with moderate to severe aortic regurgitation -Given 40mg IV Lasix in ED. Continue 40mg IV Lasix BID -Strict I&Os, daily weights -Diuresed a lot and has been feeling a lot better and wants to go home -Appreciate cardiology input and recommendation -Serial cardiac enzymes have been negative for any ACS -Asymptomatic (2) Moderate persistent asthma: Scattered wheezes on exam in setting of asthma, ? COPD (patient endorses, not seen in Epic documentation) -VBG pH normal at 7.4, patient saturating in high 90s on 2L NC -Received duonebs Q4H and did not require any steroid -We will change nebs to inhalers as needed to avoid any tachycardia induced worsening of CHF -Clinically denies any shortness of breath (3) CAD (coronary artery disease): H/o CABG in 1999, stent in 2013 -No chest pain, EKG with ventricular-paced rhythm -Initial troponin negative and subsequent troponins were negative to -Continue aspirin, plavix, statin, beta mike (4) Persistent atrial fibrillation: Currently in ventricular-paced rhythm -Given missed home doses of digoxin -Not on anticoagulation due to hematuria in the past. Able to tolerate plavix (5) HTN (hypertension): Given missed dose of Losartan -Continue Lopressor -Simran Zosyn was added for better control of blood pressure -Likely to give him tonight and possible discharge tomorrow -Blood pressure has been improving with addition of terazosin (6) Type II diabetes mellitus: A1c of 7.1 in December 2018. Repeat ordered -Hold home agents -SSI while in-patient -BSG AC HS (7) CKD stage 3 due to type 2 diabetes mellitus: Kidney function at baseline -Continue to monitor with daily BMP -Kidney function remains stable and normal (8) Dyslipidemia: Continue statin (9) BPH (benign prostatic hyperplasia): Continue Flomax, Avodart DVT Ppx: SQ heparin Q12H Code status: FULL per discussion with patient PCP: Ricarda Dispo: Admitted to telemetry. Plan to return home once medically stable. He will be discharged today Total Time Total Time Spent Total Time Spent (In Minutes): 45 minutes Total Time Includes: Examination of the Patient, Discharge Planning, Medication Reconciliation and Communication With Other Providers Discharge Plan Discharge Items Patient Disposition: Home - Self-Care Reason For Visit: CHF EXACERBATION Discharge Diagnosis: Acute decompensated heart failure/acute heart failure with preserved EF, atrial fibrillation, hypertension, controlled asthma Condition: Good Discharge Goals: Decrease discomfort and Improve function Activity: Resume your previous activity Non-emergency contact: Primary Care Provider Call non-emergency contact if: you have any medication questions and your sympto ms worsen Follow-up/Referrals: Muriel Moreira MD [Primary Care Provider] - (Your doctor's office will call with an appointment within 7 days) Diet: Carb Consistent or DM2 and Heart Healthy Fluids: 1500ml (6 cups) Addtl Provider Instructions: Additional medications prescribed is Simran Zosyn 5 mg daily to control blood pressure Prescriptions: New terazosin 1 mg Capsule 5 mg PO HS 30 Days Qty: 150 RF: 0 Continued furosemide [Lasix] 40 mg Tablet 40 mg PO SUTUTHSA@0900 RF: 0 acetaminophen [Tylenol Extra Strength] 500 mg Tablet 1,000 mg PO BID RF: 0 baclofen 10 mg Tablet 10 mg PO HS PRN (Reason: Back Pain) RF: 0 multivitamin Tablet 1 tab PO DAILY RF: 0 furosemide [Lasix] 40 mg Tablet 80 mg PO MOWEFR@0900 RF: 0 fluticasone propion-salmeterol [Advair Diskus] 250-50 mcg/dose Blister With Device 1 inh INHALATION BID RF: 0 metoprolol succinate [Toprol XL] 50 mg Tablet Extended Release 24 Hr 50 mg PO QAM RF: 0 metformin 850 mg Tablet 850 mg PO BIDM RF: 0 clopidogrel [Plavix] 75 mg Tablet 75 mg PO DAILY RF: 0 aspirin [Aspirin Low Dose] 81 mg Tablet,Delayed Release (Dr/Ec) 81 mg PO MOWEFR@0900 RF: 0 simvastatin [Zocor] 40 mg Tablet 40 mg PO DAILY RF: 0 glimepiride 2 mg Tablet 2 mg PO QAM RF: 0 potassium chloride [Klor-Con M20] 20 mEq Tablet,Er Particles/Crystals 20 meq PO DAILY RF: 0 magnesium oxide 400 mg (241.3 mg magnesium) Tablet 400 mg PO DAILY RF: 0 tamsulosin [Flomax] 0.4 mg Capsule 0.4 mg PO DAILY RF: 0 ranitidine HCl [Zantac] 150 mg Tablet 150 mg PO Q12 RF: 0 digoxin 125 mcg Tablet 0.125 mg PO DIRECTED RF: 0 losartan [Cozaar] 100 mg Tablet 100 mg PO DAILY RF: 0 dutasteride 0.5 mg Capsule 0.5 mg PO DAILY RF: 0 albuterol sulfate [Proventil HFA] 90 mcg/actuation Hfa Aerosol Inhaler 1 puff INHALATION DIRECTED PRN (Reason: Shortness Of Breath) RF: 0 triamcinolone acetonide 0.5 % Cream 1 applic TOPICAL DIRECTED RF: 0 Stand-Alone Forms: [facility] Discharge Orders: Discharge Order (Routine); Ordered 04/27/19 Ordered By: Harshad Ocasio Admission Data Admit Date/Time: 04/25/19 13:41 Attending Provider: Harshad Ocasio Admit Provider: Kumar Rodriguez Primary Care Provider: Muriel Moreira Other Providers: Kumar Rodriguez ; Sean Vasquez Service: Telemetry Other Interventions: Discharge Summary Assessment (RN) Last Done: 04/27/19 13:27 DC Date/Time DO NOT enter until pt leaves facility: 04/27/19 13:55
== END 2019-04-27 13:55 | disposition home or self-care (01) | DRG 291 ==
LOC: ED 09:34 → 2S 13:41

== ENCOUNTER 2021-07-27 00:14 | Inpatient (IN) ==
[2021-07-27] MEDS ORDERED: ACETAMINOPHEN 500 MG TAB PO PRN (01:12)
[2021-07-27 01:21] LABS: Basophils # (auto) 0.01 K/uL (0-0.2); Basophils % (auto) 0.1 %; Eosinophils # (auto) 0.11 K/uL (0-0.5); Eosinophils % (auto) 1.5 %; Hematocrit (blood only) 23.8 % (42-52); Hemoglobin 7.6 g/dL (14.0-18.0); Immature Granulocytes # (auto) 0.03 K/uL (0.00-0.02); Immature Granulocytes % (auto) 0.4 %; Lymphocytes % (auto) 8.2 %; Mean Corpuscular Hemoglobin 31.7 pg (25-34); Mean Corpuscular Hgb Conc 31.9 g/dL (32-36); Mean Corpuscular Volume 99.2 fL (80-100); Mean Platelet Volume 9.4 fL (7.4-10.4); Monocytes # (auto) 1.01 K/uL (0.11-0.59); Monocytes % (auto) 13.7 %; Neutrophils # (auto) 5.59 K/uL (1.4-6.5); Neutrophils % (auto) 76.1 %; Platelet Count 237 K/uL (130-400); RDW Coefficient of Variation 16.6 % (11.5-14.5); RDW Standard Deviation 59.7 fL (36.4-46.3); White Blood Count 7.35 K/uL (4.8-10.8)
[2021-07-27 01:26] LABS: Appearance Urine Turbid (Clear); Bacteria Urine Automated 4+ (Negative); Bilirubin Urine Negative (Negative); Blood Urine 3+ (Negative); Color Urine Yellow; Epithelial Cell Urine Auto >30 /lpf (0-5); Glucose Urine UA Trace (Negative); Ketones Urine Negative (Negative); Leukocyte Esterase Urine 3+ (Negative); Nitrite Urine Positive (Negative); Protein Urine 2+ (Negative); Specific Gravity Urine 1.014 (1.000-1.030); Urobilinogen Urine Negative (Negative); WBC Urine Automated >30 /hpf (0-5)
[2021-07-27 01:37] LABS: Alanine Aminotransferase 13 U/L (12-78); Aspartate Aminotransferase 11 U/L (15-37); BUN Creatinine Ratio 21.9 (10-20); Blood Urea Nitrogen 28 mg/dl (7-18); Calcium 8.5 mg/dl (8.5-10.1); Carbon Dioxide 25 mmol/L (21-32); Chloride 105 mmol/L (98-107); Est GFR (African American) 58.5 ml/min; Est GFR (Non-African American) 50.5 ml/min; Glucose 184 mg/dl (70-99); Lipase 220 U/L (73-393); Potassium 3.8 mmol/L (3.5-5.1); Sodium 139 mmol/L (136-145)
[2021-07-27 01:38] LABS: Dohle Bodies 1+; Polychromasia 1+; Rouleaux 1+; Tear Drop Cells Occasional; Toxic Granulation Occasional
[2021-07-27 01:39] LABS: Albumin Globulin Ratio 0.3 (0.9-2); Alkaline Phosphatase 59 U/L (45-117); Bilirubin,Total 0.4 mg/dl (0.2-1); Globulin 5.8 gm/dl (2.5-4.0); Total Protein 7.8 gm/dl (6.4-8.2)
[2021-07-27] MEDS ORDERED: SODIUM CHLORIDE 0.9% 500 ML IV ONE (02:01)
[2021-07-27] MEDS ORDERED: cefTRIAXone SODIUM 1,000 MG/50 ML BAG IV STA (04:14)
[2021-07-27] MEDS ORDERED: SODIUM CHLORIDE 0.9% 250 ML IV PRN (04:16)
[2021-07-27 04:43] LABS: Prothrombin Time 10.5 Seconds (9.0-12.0)
[2021-07-27] MEDS ORDERED: PANTOPRAZOLE BOLUS/DRIP 1 EA IV STA (05:18)
[2021-07-27] MEDS ORDERED: PANTOprazole 80 MG in DEXTROSE 5% 100 ML IV STA (05:20)
--- NOTE | 2021-07-27 05:50 | History & Physical Report ---
Date of Service July 27, 2021 Assessment & Plan (1) UGIB (upper gastrointestinal bleed): Plan: Painless UGI B (differentials include PUD, tumor) Patient predisposed by antiplatelet Rx for CAD status post CABG, stent/PVD Acute on chronic anemia secondary to above Complicated UTI History BPH No overt sepsis for now chronic diastolic heart failure (EF 50%, TTE 2019), patient euvolemic to dry SSS status post PPM, paced rhythm, not on anticoagulation secondary to bleeding risk valvular heart disease (mild /MR/TR, moderate AR) hypertension, stable COPD, pulmonary status at baseline DM2 on oral medications, reasonable control as of recent hemoglobin A1c of 7.03 June 2021 dementia as per records, at baseline past tobacco abuse. Medical telemetry IV PPI Transfuse PRBC to maintain hemoglobin greater than 8 and or for symptomatic anemia Appropriate to hold patient antiplatelet Rx for now GI consult Re: GI bleed Following CS, Ceftriaxone Basal insulin adjusted for n.p.o. status, ISS BG goal 1 10-1 40 DVT prophylaxis. SCDs Re: GI bleed Full code Patient daughter requesting updates from providers. Mr. Reji Trejo, contact #[phone]. Text document was generated using [employer] voice recognition software. It may contain grammatical or spelling errors. Kindly contact undersigned for clarification of any documentation item in question. History of Present Illness Chief Complaint: Nausea, vomiting, diarrhea Primary Care Provider: Muriel Marrero MD History obtained from patient, family, and records. Limited history from patient secondary to marked hearing impairment. 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 Last confinement for April 2019 for decompensated heart failure. 4 days history of nausea, vomiting, diarrhea yielding black stools. Patient denies chest pain, S OB, abdominal pain, fever, chills. Patient denies dysuria symptoms. No known sick contacts, recent antibiotic Rx. Patient dined at a restaurant about 2 weeks ago. At the ER, patient received Ceftriaxone for UTI. Stool FOBT done at the ER was positive. 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 Allergies Allergy/AdvReac Type Severity Reaction Status Date / Time Sulfa (Sulfonamide Allergy Severe Unresponsiv Verified 07/27/21 01:24 Antibiotics) e FELECIA Inhibitors Allergy Unknown Unknown Verified 07/27/21 01:24 prednisone AdvReac Intermediate BLISTERS Verified 07/27/21 01:24 IN THROAT pseudoephedrine AdvReac Intermediate TEMP ELEV Verified 07/27/21 01:24 Home Medications Medication Instructions Recorded Confirmed Type albuterol sulfate 90 mcg/actuation 1 puff INHALATION DIRECTED PRN 06/07/18 07/27/21 History aerosol inhaler (Proventil HFA) aspirin 81 mg tablet,delayed 81 mg PO 3XWK 06/07/18 07/27/21 History release (Aspirin Low Dose) clopidogrel 75 mg tablet (Plavix) 75 mg PO QAM 06/07/18 07/27/21 History digoxin 125 mcg (0.125 mg) tablet See Rx Instructions .ROUTE .COMPLEX 06/07/18 07/27/21 History fluticasone 250 mcg-salmeterol 50 1 inh INHALATION BID 06/07/18 07/27/21 History mcg/dose blistr powdr for inhalation (Advair Diskus) losartan 100 mg tablet (Cozaar) 100 mg PO QAM 06/07/18 07/27/21 History magnesium oxide 400 mg (241.3 mg 400 mg PO DAILY 06/07/18 07/27/21 History magnesium) tablet metformin 850 mg tablet 850 mg PO BIDM 06/07/18 07/27/21 History metoprolol succinate 50 mg 50 mg PO QAM 06/07/18 07/27/21 History tablet,extended release 24 hr (Toprol XL) potassium chloride 20 mEq 20 meq PO DAILY 06/07/18 07/27/21 History tablet,extended release(part/cryst) (Klor-Con M) simvastatin 40 mg tablet (Zocor) 40 mg PO QAM 06/07/18 07/27/21 History acetaminophen 500 mg tablet 1,000 mg PO BID PRN 04/25/19 07/27/21 History (Tylenol Extra Strength) furosemide 40 mg tablet (Lasix) See Rx Instructions .ROUTE .COMPLEX 04/25/19 07/27/21 History latanoprost 0.005 % eye drops 1 drp OPHTHALMIC (EYE) PM 03/24/20 07/27/21 History dutasteride 0.5 mg capsule 0.5 mg PO QAM #90 cap 12/17/20 07/27/21 Rx albuterol sulfate 1.25 mg/3 mL 1.25 mg INHALATION Q4H PRN 04/21/21 07/27/21 History solution for nebulization pantoprazole 20 mg tablet,delayed 20 mg PO DAILY 04/21/21 07/27/21 History release donepezil 5 mg tablet 5 mg PO QDD 07/27/21 07/27/21 History ferrous sulfate 325 mg (65 mg 325 mg PO DAILY 07/27/21 07/27/21 History iron) tablet (FeroSul) Past Med/Surg History Medical History (Updated 07/27/21 @ 09:01 by Fareed Elliott DO) Anemia Aortic aneurysm unsure of last ultrasound/scan -- no surgical intervention. Moderate aortic root dilatation noted on 2018 echo. No AAA noted on [address] Aortic valve insufficiency Moderate-severe per 11/2018 echo BPH (benign prostatic hyperplasia) CAD (coronary artery disease) (08/21/14) S/p CABG July 2000 receiving KAUR graft to LAD, saphenous vein graft sequentially from the obtuse marginal to diagonal. S/p stenting of prox Cx 2013 Chronic back pain CKD stage 3 due to type 2 diabetes mellitus COPD (chronic obstructive pulmonary disease) Dyslipidemia GERD (gastroesophageal reflux disease) Glaucoma Hearing deficit [place] History of colon polyps HTN (hypertension) Ischemic cardiomyopathy EF normalized, most recently 55-60% on 11/2018 echo On home oxygen therapy 2 LPM QHS Osteoarthritis Persistent atrial fibrillation Anticoagulation contraindicated per cardiology Presence of combination internal cardiac defibrillator (ICD) and pacemaker follows w/ Dr. Sanford -- PMH provided by - unsure of brand/last check Tachy-lorna syndrome S/p dual chamber pacer with upgrade to pacer/ICD 2014 Type II diabetes mellitus NIDDM Surgical History History of cardiac cath 1999 --> CABG 2014 - 1 stent - [facility] History of cataract surgery History of colonoscopy History of prostate surgery History of tonsillectomy S/P CABG x 3 1999 S/P coronary artery stent placement July 2014 with stenting of the proximal circumflex Status post implantation of automatic cardioverter/defibrillator (AICD) Family History Grandmother Diabetes Mother Colon cancer Other Melanoma No family history of adverse response to anesthesia Social History Smoking Status: Unknown if ever smoked Second Hand Exposure: No; Hx Alcohol Use: No Hx Substance Use: No Preferred Language: [place] Communication Ability: Effective Neckties Painter Required: No Beliefs That Will Affect Care: None marital status: Current Living Situation: Spouse Feels Safe at Home: Yes Assistive Devices: Glasses, Hearing Aid - Bilateral and Oxygen - at Night Review of Systems Review of Systems: Could not be reliably obtained Physical Exam Physical Exam: GENERAL: Comfortable, pleasant, hard of hearing, no respiratory distress SKIN: Pallor, warm HEENT: Pale palpebral conjunctivae, no ptosis, dry buccal mucosa NECK : Supple, no tenderness CHEST : CTA, no tenderness HEART : RRR, systolic murmur ABDOMEN: Some distention, nontender EXTREMITIES : Minimal LE swelling, no LE tenderness, no other conspicuous deformities noted NEUROLOGIC : Coherent, hard of hearing, no facial asymmetry, gait and stance not assessed Results & Data Results & Data ([facility]) Vital Signs (Past 12 Hours) Vital Signs Temp Pulse Pulse Resp BP BP Pulse Ox 07/27/21 05:50 37.0 C 72 22 154/68 H 96 07/27/21 05:31 37.1 C 71 23 123/67 95 07/27/21 04:00 71 19 123/37 L 95 07/27/21 03:00 37.3 C 75 18 140/66 96 07/27/21 01:33 80 15 129/68 95 07/27/21 00:22 39.4 C H 87 24 158/64 H 95 Laboratory Results Laboratory Results WBC 7.35 K/uL (4.8-10.8) 07/27/21 00:42 RBC 2.40 M/uL (4.7-6.1) L 07/27/21 00:42 Hgb 7.6 g/dL (14.0-18.0) L 07/27/21 00:42 Hct 23.8 % (42-52) L 07/27/21 00:42 MCV 99.2 fL (80-100) 07/27/21 00:42 MCH 31.7 pg (25-34) 07/27/21 00:42 MCHC 31.9 g/dL (32-36) L 07/27/21 00:42 RDW Std Deviation 59.7 fL (36.4-46.3) H 07/27/21 00:42 RDW Coeff of Maricarmen 16.6 % (11.5-14.5) H 07/27/21 00:42 Plt Count 237 K/uL (130-400) 07/27/21 00:42 MPV 9.4 fL (7.4-10.4) 07/27/21 00:42 Immature Gran % (Auto) 0.4 % 07/27/21 00:42 Neut % (Auto) 76.1 % 07/27/21 00:42 Lymph % (Auto) 8.2 % 07/27/21 00:42 [place] % (Auto) 13.7 % 07/27/21 00:42 Eos % (Auto) 1.5 % 07/27/21 00:42 Baso % (Auto) 0.1 % 07/27/21 00:42 Neut # (Auto) 5.59 K/uL (1.4-6.5) 07/27/21 00:42 Lymph # (Auto) 0.60 K/uL (1.2-3.4) L 07/27/21 00:42 [place] # (Auto) 1.01 K/uL (0.11-0.59) H 07/27/21 00:42 Eos # (Auto) 0.11 K/uL (0-0.5) 07/27/21 00:42 Baso # (Auto) 0.01 K/uL (0-0.2) 07/27/21 00:42 Immature Gran # (Auto) 0.03 K/uL (0.00-0.02) H 07/27/21 00:42 Toxic Granulation Occasional 07/27/21 00:42 Dohle Bodies 1+ 07/27/21 00:42 Polychromasia 1+ 07/27/21 00:42 Tear Drop Cells Occasional 07/27/21 00:42 Rouleaux 1+ 07/27/21 00:42 PT 10.5 Seconds (9.0-12.0) 07/27/21 00:42 INR 1.0 (0.9-1.1) 07/27/21 00:42 Sodium 139 mmol/L (136-145) 07/27/21 00:42 Potassium 3.8 mmol/L (3.5-5.1) 07/27/21 00:42 Chloride 105 mmol/L (98-107) 07/27/21 00:42 Carbon Dioxide 25 mmol/L (21-32) 07/27/21 00:42 Anion Gap 9.0 (3-11) 07/27/21 00:42 BUN 28 mg/dl (7-18) H 07/27/21 00:42 Creatinine 1.27 mg/dl (0.6-1.4) 07/27/21 00:42 Est Cr Clr Drug Dosing Not Reportable 07/27/21 00:42 Est GFR ( Amer) 58.5 ml/min 07/27/21 00:42 Est GFR (Non-Af Amer) 50.5 ml/min 07/27/21 00:42 BUN/Creatinine Ratio 21.9 (10-20) H 07/27/21 00:42 Glucose 184 mg/dl (70-99) H 07/27/21 00:42 Lactate 1.5 mmol/L (0.4-2.0) 07/27/21 02:17 Calcium 8.5 mg/dl (8.5-10.1) 07/27/21 00:42 Magnesium 2.2 mg/dl (1.8-2.4) 07/27/21 02:11 Total Bilirubin 0.4 mg/dl (0.2-1) 07/27/21 00:42 AST 11 U/L (15-37) L 07/27/21 00:42 ALT 13 U/L (12-78) 07/27/21 00:42 Alkaline Phosphatase 59 U/L (45-117) 07/27/21 00:42 Ammonia 19.0 umol/L (11-32) 07/27/21 04:57 Total Protein 7.8 gm/dl (6.4-8.2) 07/27/21 00:42 Albumin 2.0 gm/dl (3.4-5.0) L 07/27/21 00:42 Globulin 5.8 gm/dl (2.5-4.0) H 07/27/21 00:42 Albumin/Globulin Ratio 0.3 (0.9-2) L 07/27/21 00:42 Lipase 220 U/L (73-393) 07/27/21 00:42 Urine Color Yellow 07/27/21 00:30 Urine Appearance Turbid (Clear) A 07/27/21 00:30 Urine pH 5.0 (4.5-7.5) 07/27/21 00:30 Ur Specific [place] 1.014 (1.000-1.030) 07/27/21 00:30 Urine Protein 2+ (Negative) H 07/27/21 00:30 Urine Glucose (UA) Trace (Negative) H 07/27/21 00:30 Urine Ketones Negative (Negative) 07/27/21 00:30 Urine Blood 3+ (Negative) H 07/27/21 00:30 Urine Nitrite Positive (Negative) A 07/27/21 00:30 Urine Bilirubin Negative (Negative) 07/27/21 00:30 Urine Urobilinogen Negative (Negative) 07/27/21 00:30 Ur Leukocyte Esterase 3+ (Negative) H 07/27/21 00:30 Urine WBC (Auto) >30 /hpf (0-5) H 07/27/21 00:30 Urine RBC (Auto) 10-30 /hpf (0-4) H 07/27/21 00:30 U Hyaline Cast (Auto) 1-5 /lpf (0-5) 07/27/21 00:30 U Epithel Cells (Auto) >30 /lpf (0-5) H 07/27/21 00:30 Urine Bacteria (Auto) 4+ (Negative) H 07/27/21 00:30 Urine Yeast Budding (None Prsent) A 07/27/21 00:30 COVID-19 Eval Order Covid19 at [facility] 07/27/21 00:30 SARS-CoV-2 (PCR) NEGATIVE (Negative) 07/27/21 00:30 Blood Type A Positive 07/27/21 02:11 Antibody Screen NEGATIVE 07/27/21 02:11 Crossmatch See Detail 07/27/21 02:11 Diagnostic Findings Chest x-ray as per my interpretation cardiomegaly EKG as per my interpretation : Rate 85, paced rhythm
[2021-07-27] MEDS: PANTOprazole 40 MG in DEXTROSE 5% 100 ML IV SCH ×3 (06:41→18:21)
--- NOTE | 2021-07-27 07:06 | Emergency Department Note ---
Impression & Plan GI bleed, Acute UTI Admit to the [facility] ED Provider Note NAME: MARTA ALLEN AGE: 86 SEX: M ARRIVES VIA: Ambulance INFORMANT: Patient ED PROVIDER(S): Neena Molina DO CHIEF COMPLAINT: Nausea, vomiting, and diarrhea PLAN: Disposition: Admit to the [facility] Condition: Stable MEDICAL DECISION MAKING: This is an 86-year-old male patient who presents to the emergency department with nausea, vomiting and diarrhea over the past week. The patient has become increasingly weak. The family has noticed black diarrhea. The stool is heme positive. The patient is febrile on presentation. There is no leukocytosis but the patient is anemic. Lactate is normal. The patient has been typed and crossed for 2 units of packed red blood cells. He has been consented for transfusion. Urinalysis is positive for a urinary tract infection. He will be started on IV Rocephin. I discussed the case with the [facility] and they will evaluate for further management. Triage Nursing notes reviewed and agree with them. Additional history obtained from the patient's and daughter who are at the bedside Prior medical records reviewed Vital Signs: reviewed and remarkable for hypertension Differential diagnosis: Sepsis, pneumonia, Covid, GI bleeding, dehydration ER treatment provided: IV normal saline IV Rocephin IV packed red blood cell transfusion Diagnostics interpreted by me: ECG: Ventricular paced rhythm at 85 with no signs of ischemia or ectopy. Cardiac Monitoring: Ventricular paced rhythm at 71. Laboratory studies: See below Imaging studies: as per my interpretation Portable chest x-ray: Cardiomegaly with no pulmonary vascular congestion or pulmonary infiltrates. HPI: 86/M arrives for evaluation of nausea, vomiting and diarrhea. Patient developed generalized weakness, nausea, vomiting and diarrhea approximately 1 week ago. He developed a fever which has intensified over the past couple of days. He has been receiving Tylenol. The states that he has been sleeping more significantly over the past 48 hours. She noticed that he has been having diarrhea and that it is black in color. ROS: The patient is extremely hard of hearing and the review of systems was completed mostly with the . See above HPI for pertinent positives & negatives. A total of 10 systems reviewed and were otherwise negative. PAST MEDICAL HISTORY:See Below PAST SURGICAL HISTORY:See Below FAMILY HISTORY:See Below SOCIAL HISTORY:See Below HOME MEDICATIONS:See Below ALLERGIES:See Below VITALS:See Below PHYSICAL EXAMINATION: HEENT: Head - normocephalic and atraumatic Pupils are equal, round, and reactive to light. Extraocular eye muscles are intact, and sclera are anicteric. Nose - moist nasal mucosa without discharge. Mouth - moist buccal mucosa. Oropharynx is nonerythematous and there is no tonsillar exudate or edema noted. Neck: Supple; no cervical lymphadenopathy Heart: Regular rate and rhythm. There is a normal S1 and S2 with no murmurs, clicks, or gallops appreciated. Lungs: Clear to auscultation bilaterally with no wheezes, rales, or rhonchi. Abdomen: Soft, completely nontender, nondistended, with good bowel sounds. There are no palpable pulsatile masses or hepatosplenomegaly. There is no guarding, rigidity, or rebound noted. Extremities: No evidence of cyanosis, clubbing, or edema. There are easily palpable peripheral pulses. Skin: Pale, warm and dry with good turgor and no rashes. ED COURSE: Times/Reassessments: 0130 patient was evaluated on C8. A complete history and physical was performed. Laboratory studies were drawn as above. Order was placed for continuous cardiac monitoring. Patient was in a paced rhythm at 71 A twelve-lead EKG was obtained. The patient was started on a normal saline drip. He was typed and crossed for 2 units of packed red blood cells. A portable chest x-ray was performed. Blood cultures and lactic acid were obtained. A urine specimen was obtained and appeared to be infected. The patient was started on IV Rocephin. I have personally spent greater than 30 minutes of critical care time in the direct management of this patient. This includes bedside care, interpretation of diagnostic studies, and testing, discussion with consultants, patient, and family members, and other required patient management activities. This 30 minutes is in excess of all separately billable procedures. Neena Molina DO Past Med/Surg History Medical History (Updated 07/27/21 @ 16:58 by Neena Molina DO) Anemia Aortic aneurysm unsure of last ultrasound/scan -- no surgical intervention. Moderate aortic root dilatation noted on 2018 echo. No AAA noted on [address] Aortic valve insufficiency Moderate-severe per 11/2018 echo BPH (benign prostatic hyperplasia) CAD (coronary artery disease) (08/21/14) S/p CABG July 2000 receiving KAUR graft to LAD, saphenous vein graft sequentially from the obtuse marginal to diagonal. S/p stenting of prox Cx 2013 Chronic back pain CKD stage 3 due to type 2 diabetes mellitus COPD (chronic obstructive pulmonary disease) Dyslipidemia GERD (gastroesophageal reflux disease) Glaucoma Hearing deficit [place] History of colon polyps HTN (hypertension) Ischemic cardiomyopathy EF normalized, most recently 55-60% on 11/2018 echo On home oxygen therapy 2 LPM QHS Osteoarthritis Persistent atrial fibrillation Anticoagulation contraindicated per cardiology Presence of combination internal cardiac defibrillator (ICD) and pacemaker follows w/ Dr. Sanford -- PMH provided by - unsure of brand/last check Tachy-lorna syndrome S/p dual chamber pacer with upgrade to pacer/ICD 2014 Type II diabetes mellitus NIDDM Surgical History History of cardiac cath 1999 --> CABG 2013 - stent - [facility] History of cataract surgery History of colonoscopy History of prostate surgery History of tonsillectomy S/P CABG x 3 1999 S/P coronary artery stent placement July 2014 with stenting of the proximal circumflex Status post implantation of automatic cardioverter/defibrillator (AICD) Family History Grandmother Diabetes Mother Colon cancer Other Melanoma No family history of adverse response to anesthesia Social History Smoking Status: Unknown if ever smoked Second Hand Exposure: No; Hx Alcohol Use: No Hx Substance Use: No Preferred Language: Portuguese Communication Ability: Effective 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: No Beliefs That Will Affect Care: None marital status: Current Living Situation: Spouse Other Information That Helps Us Care for You: No Feels Safe at Home: Yes Safety Concerns: Feels Safe At This Time Assistive Devices: Glasses, Hearing Aid - Bilateral and Oxygen - at Night Allergies Allergies Allergy/AdvReac Type Severity Reaction Status Date / Time Sulfa (Sulfonamide Allergy Severe Unresponsiv Verified 07/27/21 01:24 Antibiotics) e FELECIA Inhibitors Allergy Unknown Unknown Verified 07/27/21 01:24 prednisone AdvReac Intermediate BLISTERS Verified 07/27/21 01:24 IN THROAT pseudoephedrine AdvReac Intermediate TEMP ELEV Verified 07/27/21 01:24 Home Meds Home Medications Medication Instructions Recorded Confirmed albuterol sulfate 90 mcg/actuation 1 puff INHALATION DIRECTED PRN 06/07/18 07/27/21 aerosol inhaler (Proventil HFA) aspirin 81 mg tablet,delayed 81 mg PO [id number] 06/07/18 07/27/21 release (Aspirin Low Dose) clopidogrel 75 mg tablet (Plavix) 75 mg PO QAM 06/07/18 07/27/21 digoxin 125 mcg (0.125 mg) tablet See Rx Instructions .ROUTE .COMPLEX 06/07/18 07/27/21 fluticasone 250 mcg-salmeterol 50 1 inh INHALATION BID 06/07/18 07/27/21 mcg/dose blistr powdr for inhalation (Advair Diskus) losartan 100 mg tablet (Cozaar) 100 mg PO QAM 06/07/18 07/27/21 magnesium oxide 400 mg (241.3 mg 400 mg PO DAILY 06/07/18 07/27/21 magnesium) tablet metformin 850 mg tablet 850 mg PO BIDM 06/07/18 07/27/21 metoprolol succinate 50 mg 50 mg PO QAM 06/07/18 07/27/21 tablet,extended release 24 hr (Toprol XL) potassium chloride 20 mEq 20 meq PO DAILY 06/07/18 07/27/21 tablet,extended release(part/cryst) (Klor-Con M) simvastatin 40 mg tablet (Zocor) 40 mg PO QAM 06/07/18 07/27/21 acetaminophen 500 mg tablet 1,000 mg PO BID PRN 04/25/19 07/27/21 (Tylenol Extra Strength) furosemide 40 mg tablet (Lasix) See Rx Instructions .ROUTE .COMPLEX 04/25/19 07/27/21 latanoprost 0.005 % eye drops 1 drp OPHTHALMIC (EYE) PM 03/24/20 07/27/21 albuterol sulfate 1.25 mg/3 mL 1.25 mg INHALATION Q4H PRN 04/21/21 07/27/21 solution for nebulization pantoprazole 20 mg tablet,delayed 20 mg PO DAILY 04/21/21 07/27/21 release donepezil 5 mg tablet 5 mg PO QDD 07/27/21 07/27/21 ferrous sulfate 325 mg (65 mg 325 mg PO DAILY 07/27/21 07/27/21 iron) tablet (FeroSul) Previous Rx's Medication Instructions Recorded dutasteride 0.5 mg capsule 0.5 mg PO QAM #90 cap 12/17/20 Results & Data (ED) Vital Signs Vital Signs - 24 hr 07/27/21 00:22 07/27/21 01:33 07/27/21 03:00 Temperature 39.4 C H 37.3 C Temperature Source Oral Oral Pulse Rate 87 Pulse Rate [Apical] 80 75 Pulse Rhythm Regular Pulse Strength Normal Respiratory Rate 24 15 18 Respiratory Effort / Characteristics Non-Labored Respiratory Depth Normal Normal Normal Respiratory Pattern Regular Blood Pressure 158/64 H Blood Pressure [Right Arm] 129/68 140/66 Blood Pressure Mean 95 Blood Pressure Mean [Right Arm] 88 90 Blood Pressure Position Lying Pulse Oximetry 95 95 96 Oxygen Delivery Method Room Air Room Air Room Air Sepsis Recent Fever Within 48 Hours Yes Sepsis New/Unexplained Change in Mental Status No Sepsis Action Taken by Nursing No Action Required 07/27/21 04:00 07/27/21 05:31 07/27/21 05:50 Temperature 37.1 C 37.0 C Temperature Source Oral Oral Pulse Rate 71 71 72 Pulse Rate [Apical] Pulse Rhythm Pulse Strength Respiratory Rate 19 23 22 Respiratory Effort / Characteristics Respiratory Depth Respiratory Pattern Blood Pressure 123/37 L 123/67 154/68 H Blood Pressure [Right Arm] Blood Pressure Mean 65 85 96 Blood Pressure Mean [Right Arm] Blood Pressure Position Pulse Oximetry 95 95 96 Oxygen Delivery Method Sepsis Recent Fever Within 48 Hours Sepsis New/Unexplained Change in Mental Status Sepsis Action Taken by Nursing Laboratory Data Result diagrams: 07/27/21 00:42 07/27/21 00:42 Lab Results 07/27/21 07/27/21 07/27/21 Range/Units 00:30 00:30 00:30 WBC (4.8-10.8) K/uL RBC (4.7-6.1) M/uL Hgb (14.0-18.0) g/dL Hct (42-52) % MCV (80-100) fL MCH (25-34) pg MCHC (32-36) g/dL RDW Std Deviation (36.4-46.3) fL RDW Coeff of Maricarmen (11.5-14.5) % Plt Count (130-400) K/uL MPV (7.4-10.4) fL Immature Gran % (Auto) % Neut % (Auto) % Lymph % (Auto) % [place] % (Auto) % Eos % (Auto) % Baso % (Auto) % Neut # (Auto) (1.4-6.5) K/uL Lymph # (Auto) (1.2-3.4) K/uL [place] # (Auto) (0.11-0.59) K/uL Eos # (Auto) (0-0.5) K/uL Baso # (Auto) (0-0.2) K/uL Immature Gran # (Auto) (0.00-0.02) K/uL Toxic Granulation Dohle Bodies Polychromasia Tear Drop Cells Rouleaux PT (9.0-12.0) Seconds INR (0.9-1.1) Sodium (136-145) mmol/L Potassium (3.5-5.1) mmol/L Chloride (98-107) mmol/L Carbon Dioxide (21-32) mmol/L Anion Gap (3-11) BUN (7-18) mg/dl Creatinine (0.6-1.4) mg/dl Est Cr Clr Drug Dosing Est GFR ( Amer) ml/min Est GFR (Non-Af Amer) ml/min BUN/Creatinine Ratio (10-20) Glucose (70-99) mg/dl Lactate (0.4-2.0) mmol/L Calcium (8.5-10.1) mg/dl Magnesium (1.8-2.4) mg/dl Total Bilirubin (0.2-1) mg/dl AST (15-37) U/L ALT (12-78) U/L Alkaline Phosphatase (45-117) U/L Ammonia (11-32) umol/L Total Protein (6.4-8.2) gm/dl Albumin (3.4-5.0) gm/dl Globulin (2.5-4.0) gm/dl Albumin/Globulin Ratio (0.9-2) Lipase (73-393) U/L Urine Color Yellow Urine Appearance Turbid A (Clear) Urine pH 5.0 (4.5-7.5) Ur Specific [place] 1.014 (1.000-1.030) Urine Protein 2+ H (Negative) Urine Glucose (UA) Trace H (Negative) Urine Ketones Negative (Negative) Urine Blood 3+ H (Negative) Urine Nitrite Positive A (Negative) Urine Bilirubin Negative (Negative) Urine Urobilinogen Negative (Negative) Ur Leukocyte Esterase 3+ H (Negative) Urine WBC (Auto) >30 H (0-5) /hpf Urine RBC (Auto) 10-30 H (0-4) /hpf U Hyaline Cast (Auto) 1-5 (0-5) /lpf U Epithel Cells (Auto) >30 H (0-5) /lpf Urine Bacteria (Auto) 4+ H (Negative) Urine Yeast Budding A (None Prsent) Digoxin (0.8-2.0) ng/ml COVID-19 Eval Order Covid19 at [facility] SARS-CoV-2 (PCR) NEGATIVE (Negative) Blood Type Antibody Screen Crossmatch 07/27/21 07/27/21 07/27/21 Range/Units 00:42 00:42 00:42 WBC 7.35 (4.8-10.8) K/uL RBC 2.40 L (4.7-6.1) M/uL Hgb 7.6 L (14.0-18.0) g/dL Hct 23.8 L (42-52) % MCV 99.2 (80-100) fL MCH 31.7 (25-34) pg MCHC 31.9 L (32-36) g/dL RDW Std Deviation 59.7 H (36.4-46.3) fL RDW Coeff of Maricarmen 16.6 H (11.5-14.5) % Plt Count 237 (130-400) K/uL MPV 9.4 (7.4-10.4) fL Immature Gran % (Auto) 0.4 % Neut % (Auto) 76.1 % Lymph % (Auto) 8.2 % [place] % (Auto) 13.7 % Eos % (Auto) 1.5 % Baso % (Auto) 0.1 % Neut # (Auto) 5.59 (1.4-6.5) K/uL Lymph # (Auto) 0.60 L (1.2-3.4) K/uL [place] # (Auto) 1.01 H (0.11-0.59) K/uL Eos # (Auto) 0.11 (0-0.5) K/uL Baso # (Auto) 0.01 (0-0.2) K/uL Immature Gran # (Auto) 0.03 H (0.00-0.02) K/uL Toxic Granulation Occasional Dohle Bodies 1+ Polychromasia 1+ Tear Drop Cells Occasional Rouleaux 1+ PT 10.5 (9.0-12.0) Seconds INR 1.0 (0.9-1.1) Sodium 139 (136-145) mmol/L Potassium 3.8 (3.5-5.1) mmol/L Chloride 105 (98-107) mmol/L Carbon Dioxide 25 (21-32) mmol/L Anion Gap 9.0 (3-11) BUN 28 H (7-18) mg/dl Creatinine 1.27 (0.6-1.4) mg/dl Est Cr Clr Drug Dosing Not Reportable Est GFR ( Amer) 58.5 ml/min Est GFR (Non-Af Amer) 50.5 ml/min BUN/Creatinine Ratio 21.9 H (10-20) Glucose 184 H (70-99) mg/dl Lactate (0.4-2.0) mmol/L Calcium 8.5 (8.5-10.1) mg/dl Magnesium (1.8-2.4) mg/dl Total Bilirubin 0.4 (0.2-1) mg/dl AST 11 L (15-37) U/L ALT 13 (12-78) U/L Alkaline Phosphatase 59 (45-117) U/L Ammonia (11-32) umol/L Total Protein 7.8 (6.4-8.2) gm/dl Albumin 2.0 L (3.4-5.0) gm/dl Globulin 5.8 H (2.5-4.0) gm/dl Albumin/Globulin Ratio 0.3 L (0.9-2) Lipase 220 (73-393) U/L Urine Color Urine Appearance (Clear) Urine pH (4.5-7.5) Ur Specific [place] (1.000-1.030) Urine Protein (Negative) Urine Glucose (UA) (Negative) Urine Ketones (Negative) Urine Blood (Negative) Urine Nitrite (Negative) Urine Bilirubin (Negative) Urine Urobilinogen (Negative) Ur Leukocyte Esterase (Negative) Urine WBC (Auto) (0-5) /hpf Urine RBC (Auto) (0-4) /hpf U Hyaline Cast (Auto) (0-5) /lpf U Epithel Cells (Auto) (0-5) /lpf Urine Bacteria (Auto) (Negative) Urine Yeast (None Prsent) Digoxin (0.8-2.0) ng/ml COVID-19 Eval Order SARS-CoV-2 (PCR) (Negative) Blood Type Antibody Screen Crossmatch 07/27/21 07/27/21 07/27/21 Range/Units 02:11 02:11 02:17 WBC (4.8-10.8) K/uL RBC (4.7-6.1) M/uL Hgb (14.0-18.0) g/dL Hct (42-52) % MCV (80-100) fL MCH (25-34) pg MCHC (32-36) g/dL RDW Std Deviation (36.4-46.3) fL RDW Coeff of Maricarmen (11.5-14.5) % Plt Count (130-400) K/uL MPV (7.4-10.4) fL Immature Gran % (Auto) % Neut % (Auto) % Lymph % (Auto) % [place] % (Auto) % Eos % (Auto) % Baso % (Auto) % Neut # (Auto) (1.4-6.5) K/uL Lymph # (Auto) (1.2-3.4) K/uL [place] # (Auto) (0.11-0.59) K/uL Eos # (Auto) (0-0.5) K/uL Baso # (Auto) (0-0.2) K/uL Immature Gran # (Auto) (0.00-0.02) K/uL Toxic Granulation Dohle Bodies Polychromasia Tear Drop Cells Rouleaux PT (9.0-12.0) Seconds INR (0.9-1.1) Sodium (136-145) mmol/L Potassium (3.5-5.1) mmol/L Chloride (98-107) mmol/L Carbon Dioxide (21-32) mmol/L Anion Gap (3-11) BUN (7-18) mg/dl Creatinine (0.6-1.4) mg/dl Est Cr Clr Drug Dosing Est GFR ( Amer) ml/min Est GFR (Non-Af Amer) ml/min BUN/Creatinine Ratio (10-20) Glucose (70-99) mg/dl Lactate 1.5 (0.4-2.0) mmol/L Calcium (8.5-10.1) mg/dl Magnesium 2.2 (1.8-2.4) mg/dl Total Bilirubin (0.2-1) mg/dl AST (15-37) U/L ALT (12-78) U/L Alkaline Phosphatase (45-117) U/L Ammonia (11-32) umol/L Total Protein (6.4-8.2) gm/dl Albumin (3.4-5.0) gm/dl Globulin (2.5-4.0) gm/dl Albumin/Globulin Ratio (0.9-2) Lipase (73-393) U/L Urine Color Urine Appearance (Clear) Urine pH (4.5-7.5) Ur Specific [place] (1.000-1.030) Urine Protein (Negative) Urine Glucose (UA) (Negative) Urine Ketones (Negative) Urine Blood (Negative) Urine Nitrite (Negative) Urine Bilirubin (Negative) Urine Urobilinogen (Negative) Ur Leukocyte Esterase (Negative) Urine WBC (Auto) (0-5) /hpf Urine RBC (Auto) (0-4) /hpf U Hyaline Cast (Auto) (0-5) /lpf U Epithel Cells (Auto) (0-5) /lpf Urine Bacteria (Auto) (Negative) Urine Yeast (None Prsent) Digoxin (0.8-2.0) ng/ml COVID-19 Eval Order SARS-CoV-2 (PCR) (Negative) Blood Type A Positive Antibody Screen NEGATIVE Crossmatch See Detail 07/27/21 07/27/21 Range/Units 04:57 04:57 WBC (4.8-10.8) K/uL RBC (4.7-6.1) M/uL Hgb (14.0-18.0) g/dL Hct (42-52) % MCV (80-100) fL MCH (25-34) pg MCHC (32-36) g/dL RDW Std Deviation (36.4-46.3) fL RDW Coeff of Maricarmen (11.5-14.5) % Plt Count (130-400) K/uL MPV (7.4-10.4) fL Immature Gran % (Auto) % Neut % (Auto) % Lymph % (Auto) % [place] % (Auto) % Eos % (Auto) % Baso % (Auto) % Neut # (Auto) (1.4-6.5) K/uL Lymph # (Auto) (1.2-3.4) K/uL [place] # (Auto) (0.11-0.59) K/uL Eos # (Auto) (0-0.5) K/uL Baso # (Auto) (0-0.2) K/uL Immature Gran # (Auto) (0.00-0.02) K/uL Toxic Granulation Dohle Bodies Polychromasia Tear Drop Cells Rouleaux PT (9.0-12.0) Seconds INR (0.9-1.1) Sodium (136-145) mmol/L Potassium (3.5-5.1) mmol/L Chloride (98-107) mmol/L Carbon Dioxide (21-32) mmol/L Anion Gap (3-11) BUN (7-18) mg/dl Creatinine (0.6-1.4) mg/dl Est Cr Clr Drug Dosing Est GFR ( Amer) ml/min Est GFR (Non-Af Amer) ml/min BUN/Creatinine Ratio (10-20) Glucose (70-99) mg/dl Lactate (0.4-2.0) mmol/L Calcium (8.5-10.1) mg/dl Magnesium (1.8-2.4) mg/dl Total Bilirubin (0.2-1) mg/dl AST (15-37) U/L ALT (12-78) U/L Alkaline Phosphatase (45-117) U/L Ammonia 19.0 (11-32) umol/L Total Protein (6.4-8.2) gm/dl Albumin (3.4-5.0) gm/dl Globulin (2.5-4.0) gm/dl Albumin/Globulin Ratio (0.9-2) Lipase (73-393) U/L Urine Color Urine Appearance (Clear) Urine pH (4.5-7.5) Ur Specific [place] (1.000-1.030) Urine Protein (Negative) Urine Glucose (UA) (Negative) Urine Ketones (Negative) Urine Blood (Negative) Urine Nitrite (Negative) Urine Bilirubin (Negative) Urine Urobilinogen (Negative) Ur Leukocyte Esterase (Negative) Urine WBC (Auto) (0-5) /hpf Urine RBC (Auto) (0-4) /hpf U Hyaline Cast (Auto) (0-5) /lpf U Epithel Cells (Auto) (0-5) /lpf Urine Bacteria (Auto) (Negative) Urine Yeast (None Prsent) Digoxin 0.8 (0.8-2.0) ng/ml COVID-19 Eval Order SARS-CoV-2 (PCR) (Negative) Blood Type Antibody Screen Crossmatch Administered Medications Donepezil HCl (Donepezil Hcl 5 Mg Tab) 5 mg PO QDD ALIN Stop: 08/26/21 16:29 Last Admin: 07/27/21 16:43 Dose: 5 mg Documented by: [id number] Pantoprazole Sodium 40 mg/ (Dextrose) 100 mls @ 20 mls/hr IV Q5H ALIN Stop: 08/26/21 05:29 Last Admin: 07/27/21 13:52 Dose: 8 mg/hr, 20 mls/hr Documented by: [id number] Infusion: 07/27/21 11:41 Dose: 8 mg/hr, 20 mls/hr Documented by: [id number] Admin: 07/27/21 06:41 Dose: 8 mg/hr, 20 mls/hr Documented by: [id number] Potassium Chloride/Sodium Chloride (Normal Saline W/20 Meq Kcl) 20 meq in 1,000 mls @ 50 mls/hr IV .Q20H ALIN Stop: 08/26/21 07:29 Last Admin: 07/27/21 11:03 Dose: 50 mls/hr Documented by: [id number] Insulin Aspart (Insulin Aspart 100 Units/Ml 3 Ml Pen) 0 units SC ACHS ALIN Stop: 08/26/21 07:29 Last Admin: 07/27/21 12:32 Dose: 1 units Documented by: [id number] Cosigned by: [id number] Admin: 07/27/21 10:54 Dose: Not Given Documented by: [id number] Losartan Potassium (Losartan Potassium 50 Mg Tab) 100 mg PO QAM ALIN Stop: 08/26/21 08:59 Last Admin: 07/27/21 11:22 Dose: 100 mg Documented by: [id number] Metoprolol Succinate (Metoprolol Succ 50mg Ext Rel Tab) 50 mg PO [facility] Stop: 08/26/21 08:59 Last Admin: 07/27/21 11:22 Dose: 50 mg Documented by: [id number] Simvastatin (Simvastatin 40 Mg Tab) 40 mg PO [facility] Stop: 08/26/21 08:59 Last Admin: 07/27/21 11:22 Dose: 40 mg Documented by: [id number] Discontinued Medications Acetaminophen (Acetaminophen 500 Mg Tab) 1,000 mg PO ONCE PRN PRN Reason: Fever Stop: 08/26/21 01:11 Last Admin: 07/27/21 01:33 Dose: 1,000 mg Documented by: [id number] Sodium Chloride (Nss) 500 mls @ 999 mls/hr IV .Q31M ONE Stop: 07/27/21 02:31 Last Infusion: 07/27/21 02:43 Dose: 0 mls/hr Documented by: [id number] Admin: 07/27/21 02:13 Dose: 999 mls/hr Documented by: [id number] Ceftriaxone Sodium (Rocephin) 1,000 mg in 50 mls @ 100 mls/hr IV NOW STA Stop: 07/27/21 04:43 Last Infusion: 07/27/21 05:00 Dose: 0 mls/hr Documented by: [id number] Admin: 07/27/21 04:28 Dose: 100 mls/hr Documented by: [id number] Pantoprazole Sodium 80 mg/ (Dextrose) 120 mls @ 480 mls/hr IV NOW STA Stop: 07/27/21 05:34 Last Infusion: 07/27/21 14:59 Dose: 0 mls/hr Documented by: [id number] Admin: 07/27/21 06:20 Dose: 480 mls/hr Documented by: [id number] Ceftriaxone Sodium 1,000 mg/ (Dextrose) 50 mls @ 100 mls/hr IV ONE ONE; Protocol Stop: 07/27/21 08:44 Last Infusion: 07/27/21 13:52 Dose: 0 mls/hr Documented by: [id number] Admin: 07/27/21 10:55 Dose: 100 mls/hr Documented by: [id number] Lidocaine HCl (Lidocaine 2% 2 Ml Vial/Amp(20mg/Ml)) Confirm Administered Dose 2 ml INFIL .STK-MED ONE Stop: 07/27/21 10:12 Last Admin: 07/27/21 14:58 Dose: Not Given Documented by: [id number] Miscellaneous (Avodart- Order Awaiting Action) 1 ea N/A QS ALIN Stop: 08/26/21 07:59 Last Admin: 07/27/21 14:59 Dose: Not Given Documented by: [id number] Propofol (Propofol Iv Emulsion 10 Mg/Ml 20 Ml Vial) Confirm Administered Dose 200 mg IV .STK-MED ONE Stop: 07/27/21 10:12 Last Admin: 07/27/21 14:59 Dose: Not Given Documented by: [id number] Imaging Data Radiologist's Impression: Chest X-Ray 07/27/21 03:54 XR chest 1V portable HISTORY: fever COMPARISON: Chest 04/25/2019. FINDINGS: No focal lung consolidations to suggest pneumonia. No evidence for pulmonary edema. The heart remains mildly enlarged. There are poststernotomy changes and a left-sided pacemaker/defibrillator. No pleural effusions. No pneumothorax. IMPRESSION: Stable mild cardiomegaly. ACT 112: Negative or not required by law. Electronically signed by: Wyatt Leblanc M.D. 07/27/2021 8:37 AM Discharge Plan Visit Data Chief Complaint: GI Assessment Stated Complaint: GENERAL ILLNESS ED Provider: Neena Molina Discharge Problem: GI bleed, Acute UTI Patient Disposition: Admitted As Inpatient Discharge Instructions Interventions: ED Discharge Assessment Last Done: 07/27/21 06:10 Discharge Problem: GI bleed Qualifiers: GI bleed type/associated pathology: melena Qualified Code(s): K92.1 - Melena
[2021-07-27] MEDS ORDERED: ACETAMINOPHEN 325 MG TAB PO PRN (07:20)
[2021-07-27] MEDS ORDERED: GLUCOSE 40% GEL 15 GM TUBE PO PRN (07:20)
[2021-07-27] MEDS ORDERED: GLUCAGON FOR INJ 1 MG VIAL SQ PRN (07:20)
[2021-07-27] MEDS ORDERED: CARBOHYDRATES FOR HYPOGLYCEMIA PO PRN (07:20)
[2021-07-27] MEDS ORDERED: traMADol HCL 50 MG TABLET PO PRN (07:20)
[2021-07-27] MEDS ORDERED: DEXTROSE 50% 50 ML SYRINGE IV PRN (07:20)
[2021-07-27] MEDS ORDERED: GLUCOSE 10 TABS/TUBE PO PRN (07:20)
[2021-07-27] MEDS ORDERED: PROMETHAZINE HCL 12.5 MG in SODIUM CHLORIDE 0.9% 50 ML IV PRN (07:20)
[2021-07-27] MEDS ORDERED: cefTRIAXone SODIUM 1,000 MG in DEXTROSE 5% 50 ML IV ONE (08:15)
--- NOTE | 2021-07-27 08:19 | Gastrointestinal Consultation ---
Date of Consultation July 27, 2021 Assessment & Plan (1) UGIB (upper gastrointestinal bleed): This is an 86 y/o male with complicated past medical history as above, presenting with nausea vomiting, and diarrhea with black stool, labs notable for acute on chronic anemia and elevated BUN. We are asked to evaluate for concerning of upper GI bleed. Currently abd soft, VSS; no active GIB at present. - Will plan for EGD to evaluate for potential upper GI source of anemia and black stool, such as PUD, gastritis, etc - Keep n.p.o. - IV PPI - IV hydration PRBC transfusion as per ER team - Trend H&H - Monitor and document GI output Thank you for allowing us to participate in the care of this patient. Please call with any acute changes, questions or concerns. Please see addendum below with additional recommendation from my supervising physician. Supervising Physician Co-Signing Physician Notes I saw and evaluated the patient. We were consulted for evaluation of acute drop in his hemoglobin and hematocrit and a question of melena. The patient is on antiplatelet therapy due to a history of underlying coronary artery disease. He did receive 1 unit of transfusion early this morning. He denies having nausea vomiting and notes that he has had his baseline shortness of breath Physical examination Elderly male in mild distress Expiratory wheezes heard/delay in expiratory phase No Abdominal tenderness No scleral icterus Impression: Patient presenting with signs and symptoms suggestive of an acute gastrointestinal bleed. The patient did receive a unit of transfusion this morning and seems to be hemodynamically stable. We will try and expedite upper endoscopy for further evaluation. Recommendations N.p.o. Continue Protonix drip please Please hold antiplatelet and anticoagulation agents History of Present Illness Reason for Consultation: UGIB Requesting Physician: Dr. Gauthier Attending Physician: Rene Aquino MD History of Present Illness Mr. Marshall Booth is an 86 y/o male with PMHx chronic diastolic heart failure (EF 50%, TTE 2019), CAD status post CABG/stent, PVD, SSS status post PPM not on anticoagulation secondary to bleeding risk, valvular heart disease (mild /MR/TR, moderate AR), hypertension, COPD, DISH, BPH, DM2 on oral medications, dementia as per records, chronic anemia (baseline hemoglobin of 10 ), past tobacco abuse. He presented to the ER with 4 days of nausea, vomiting, and diarrhea with black stools. On arrival H&H 7.6/23.8% (baseline HGB 10), BUN elevated at 28,, normal lactate, INR. Stool FOBT was positive in the ER. He was also found to have a UTI and started on ABX. He is hypertensive with BP 160/69, pulse 70, satting 97% on room air. He has been started on IV PPI and 1 of 2 units of blood have been transfused. C diff testing has been ordered. History limited by cognitive difficulty; he is not oriented to place or time, gives a limited history. States he feels cold and someone is bringing him clothes. Denies chest pain or shortness of breath, denies abdominal pain, hematemesis or hematochezia. Allergies Allergy/AdvReac Type Severity Reaction Status Date / Time Sulfa (Sulfonamide Allergy Severe Unresponsiv Verified 07/27/21 01:24 Antibiotics) e FELECIA Inhibitors Allergy Unknown Unknown Verified 07/27/21 01:24 prednisone AdvReac Intermediate BLISTERS Verified 07/27/21 01:24 IN THROAT pseudoephedrine AdvReac Intermediate TEMP ELEV Verified 07/27/21 01:24 Home Medications Medication Instructions Recorded Confirmed Type albuterol sulfate 90 mcg/actuation 1 puff INHALATION DIRECTED PRN 06/07/18 07/27/21 History aerosol inhaler (Proventil HFA) aspirin 81 mg tablet,delayed 81 mg PO 3XWK 06/07/18 07/27/21 History release (Aspirin Low Dose) clopidogrel 75 mg tablet (Plavix) 75 mg PO QAM 06/07/18 07/27/21 History digoxin 125 mcg (0.125 mg) tablet See Rx Instructions .ROUTE .COMPLEX 06/07/18 07/27/21 History fluticasone 250 mcg-salmeterol 50 1 inh INHALATION BID 06/07/18 07/27/21 History mcg/dose blistr powdr for inhalation (Advair Diskus) losartan 100 mg tablet (Cozaar) 100 mg PO QAM 06/07/18 07/27/21 History magnesium oxide 400 mg (241.3 mg 400 mg PO DAILY 06/07/18 07/27/21 History magnesium) tablet metformin 850 mg tablet 850 mg PO BIDM 06/07/18 07/27/21 History metoprolol succinate 50 mg 50 mg PO QAM 06/07/18 07/27/21 History tablet,extended release 24 hr (Toprol XL) potassium chloride 20 mEq 20 meq PO DAILY 06/07/18 07/27/21 History tablet,extended release(part/cryst) (Klor-Con M) simvastatin 40 mg tablet (Zocor) 40 mg PO QAM 06/07/18 07/27/21 History acetaminophen 500 mg tablet 1,000 mg PO BID PRN 04/25/19 07/27/21 History (Tylenol Extra Strength) furosemide 40 mg tablet (Lasix) See Rx Instructions .ROUTE .COMPLEX 04/25/19 07/27/21 History latanoprost 0.005 % eye drops 1 drp OPHTHALMIC (EYE) PM 03/24/20 07/27/21 History dutasteride 0.5 mg capsule 0.5 mg PO QAM #90 cap 12/17/20 07/27/21 Rx albuterol sulfate 1.25 mg/3 mL 1.25 mg INHALATION Q4H PRN 04/21/21 07/27/21 History solution for nebulization pantoprazole 20 mg tablet,delayed 20 mg PO DAILY 04/21/21 07/27/21 History release donepezil 5 mg tablet 5 mg PO QDD 07/27/21 07/27/21 History ferrous sulfate 325 mg (65 mg 325 mg PO DAILY 07/27/21 07/27/21 History iron) tablet (FeroSul) Patient History Medical History (Updated 07/27/21 @ 09:01 by Fareed Elliott, ) Anemia Aortic aneurysm unsure of last ultrasound/scan -- no surgical intervention. Moderate aortic root dilatation noted on 2018 echo. No AAA noted on [address] Aortic valve insufficiency Moderate-severe per 11/2018 echo BPH (benign prostatic hyperplasia) CAD (coronary artery disease) (08/21/14) S/p CABG July 2000 receiving KAUR graft to LAD, saphenous vein graft sequentially from the obtuse marginal to diagonal. S/p stenting of prox Cx 2013 Chronic back pain CKD stage 3 due to type 2 diabetes mellitus COPD (chronic obstructive pulmonary disease) Dyslipidemia GERD (gastroesophageal reflux disease) Glaucoma Hearing deficit [place] History of colon polyps HTN (hypertension) Ischemic cardiomyopathy EF normalized, most recently 55-60% on 11/2018 echo On home oxygen therapy 2 LPM QHS Osteoarthritis Persistent atrial fibrillation Anticoagulation contraindicated per cardiology Presence of combination internal cardiac defibrillator (ICD) and pacemaker follows w/ Dr. Safnord -- PMH provided by - unsure of brand/last check Tachy-lorna syndrome S/p dual chamber pacer with upgrade to pacer/ICD 2014 Type II diabetes mellitus NIDDM Surgical History History of cardiac cath 1999 --> CABG 2014 - 1 stent - [facility] History of cataract surgery History of colonoscopy History of prostate surgery History of tonsillectomy S/P CABG x 3 1999 S/P coronary artery stent placement July 2014 with stenting of the proximal circumflex Status post implantation of automatic cardioverter/defibrillator (AICD) Family History Grandmother Diabetes Mother Colon cancer Other Melanoma No family history of adverse response to anesthesia Social History Smoking Status: Unknown if ever smoked Second Hand Exposure: No; Hx Alcohol Use: No Hx Substance Use: No Preferred Language: Sami Communication Ability: Effective Golf Manager Required: No Beliefs That Will Affect Care: None marital status: Current Living Situation: Spouse Feels Safe at Home: Yes Assistive Devices: Glasses, Hearing Aid - Bilateral and Oxygen - at Night Review of Systems Review of Systems: Unobtainable due to cognitive status Physical Exam Constitutional: WD/WN, vitals as above ill appearing Eyes: PERRL, conjunctivae normal, anicteric sclerae Respiratory: normal respiratory effort, lungs clear to auscultation Gastrointestinal (Abdomen): normal bowel sounds, soft, nontender, no hepatosplenomegaly Skin: no rashes, warm and dry Psychiatric: Not oriented to date, time, events Results & Data ([facility]) Vital Signs (Past 12 Hours) Vital Signs Temp Pulse Pulse Resp BP BP Pulse Ox 07/27/21 06:05 36.6 C 69 18 162/75 H 95 07/27/21 05:50 37.0 C 72 22 154/68 H 96 07/27/21 05:31 37.1 C 71 23 123/67 95 07/27/21 04:00 71 19 123/37 L 95 07/27/21 03:00 37.3 C 75 18 140/66 96 07/27/21 01:33 80 15 129/68 95 07/27/21 00:22 39.4 C H 87 24 158/64 H 95 Laboratory Results CXR: IMPRESSION: Stable mild cardiomegaly. Diagnostic Findings 07/27/21 07/27/21 07/27/21 Range/Units 04:57 04:57 02:17 WBC (4.8-10.8) K/uL RBC (4.7-6.1) M/uL Hgb (14.0-18.0) g/dL Hct (42-52) % MCV (80-100) fL MCH (25-34) pg MCHC (32-36) g/dL RDW Std Deviation (36.4-46.3) fL RDW Coeff of [place] (11.5-14.5) % Plt Count (130-400) K/uL MPV (7.4-10.4) fL Immature Gran % (Auto) % Neut % (Auto) % Lymph % (Auto) % [place] % (Auto) % Eos % (Auto) % Baso % (Auto) % Neut # (Auto) (1.4-6.5) K/uL Lymph # (Auto) (1.2-3.4) K/uL [place] # (Auto) (0.11-0.59) K/uL Eos # (Auto) (0-0.5) K/uL Baso # (Auto) (0-0.2) K/uL Immature Gran # (Auto) (0.00-0.02) K/uL Toxic Granulation Dohle Bodies Polychromasia Tear Drop Cells Rouleaux PT (9.0-12.0) Seconds INR (0.9-1.1) Sodium (136-145) mmol/L Potassium (3.5-5.1) mmol/L Chloride (98-107) mmol/L Carbon Dioxide (21-32) mmol/L Anion Gap (3-11) BUN (7-18) mg/dl Creatinine (0.6-1.4) mg/dl Est Cr Clr Drug Dosing Est GFR ( Amer) ml/min Est GFR (Non-Af Amer) ml/min BUN/Creatinine Ratio (10-20) Glucose (70-99) mg/dl Lactate 1.5 (0.4-2.0) mmol/L Calcium (8.5-10.1) mg/dl Magnesium (1.8-2.4) mg/dl Total Bilirubin (0.2-1) mg/dl AST (15-37) U/L ALT (12-78) U/L Alkaline Phosphatase (45-117) U/L Ammonia 19.0 (11-32) umol/L Total Protein (6.4-8.2) gm/dl Albumin (3.4-5.0) gm/dl Globulin (2.5-4.0) gm/dl Albumin/Globulin Ratio (0.9-2) Lipase (73-393) U/L Urine Color Urine Appearance (Clear) Urine pH (4.5-7.5) Ur Specific [place] (1.000-1.030) Urine Protein (Negative) Urine Glucose (UA) (Negative) Urine Ketones (Negative) Urine Blood (Negative) Urine Nitrite (Negative) Urine Bilirubin (Negative) Urine Urobilinogen (Negative) Ur Leukocyte Esterase (Negative) Urine WBC (Auto) (0-5) /hpf Urine RBC (Auto) (0-4) /hpf U Hyaline Cast (Auto) (0-5) /lpf U Epithel Cells (Auto) (0-5) /lpf Urine Bacteria (Auto) (Negative) Urine Yeast (None Prsent) Digoxin 0.8 (0.8-2.0) ng/ml COVID-19 Eval Order SARS-CoV-2 (PCR) (Negative) Blood Type Antibody Screen Crossmatch 07/27/21 07/27/21 07/27/21 Range/Units 02:11 02:11 00:42 WBC (4.8-10.8) K/uL RBC (4.7-6.1) M/uL Hgb (14.0-18.0) g/dL Hct (42-52) % MCV (80-100) fL MCH (25-34) pg MCHC (32-36) g/dL RDW Std Deviation (36.4-46.3) fL RDW Coeff of [place] (11.5-14.5) % Plt Count (130-400) K/uL MPV (7.4-10.4) fL Immature Gran % (Auto) % Neut % (Auto) % Lymph % (Auto) % [place] % (Auto) % Eos % (Auto) % Baso % (Auto) % Neut # (Auto) (1.4-6.5) K/uL Lymph # (Auto) (1.2-3.4) K/uL [place] # (Auto) (0.11-0.59) K/uL Eos # (Auto) (0-0.5) K/uL Baso # (Auto) (0-0.2) K/uL Immature Gran # (Auto) (0.00-0.02) K/uL Toxic Granulation Dohle Bodies Polychromasia Tear Drop Cells Rouleaux PT 10.5 (9.0-12.0) Seconds INR 1.0 (0.9-1.1) Sodium (136-145) mmol/L Potassium (3.5-5.1) mmol/L Chloride (98-107) mmol/L Carbon Dioxide (21-32) mmol/L Anion Gap (3-11) BUN (7-18) mg/dl Creatinine (0.6-1.4) mg/dl Est Cr Clr Drug Dosing Est GFR ( Amer) ml/min Est GFR (Non-Af Amer) ml/min BUN/Creatinine Ratio (10-20) Glucose (70-99) mg/dl Lactate (0.4-2.0) mmol/L Calcium (8.5-10.1) mg/dl Magnesium 2.2 (1.8-2.4) mg/dl Total Bilirubin (0.2-1) mg/dl AST (15-37) U/L ALT (12-78) U/L Alkaline Phosphatase (45-117) U/L Ammonia (11-32) umol/L Total Protein (6.4-8.2) gm/dl Albumin (3.4-5.0) gm/dl Globulin (2.5-4.0) gm/dl Albumin/Globulin Ratio (0.9-2) Lipase (73-393) U/L Urine Color Urine Appearance (Clear) Urine pH (4.5-7.5) Ur Specific [place] (1.000-1.030) Urine Protein (Negative) Urine Glucose (UA) (Negative) Urine Ketones (Negative) Urine Blood (Negative) Urine Nitrite (Negative) Urine Bilirubin (Negative) Urine Urobilinogen (Negative) Ur Leukocyte Esterase (Negative) Urine WBC (Auto) (0-5) /hpf Urine RBC (Auto) (0-4) /hpf U Hyaline Cast (Auto) (0-5) /lpf U Epithel Cells (Auto) (0-5) /lpf Urine Bacteria (Auto) (Negative) Urine Yeast (None Prsent) Digoxin (0.8-2.0) ng/ml COVID-19 Eval Order SARS-CoV-2 (PCR) (Negative) Blood Type A Positive Antibody Screen NEGATIVE Crossmatch See Detail 07/27/21 07/27/21 07/27/21 Range/Units 00:42 00:42 00:30 WBC 7.35 (4.8-10.8) K/uL RBC 2.40 L (4.7-6.1) M/uL Hgb 7.6 L (14.0-18.0) g/dL Hct 23.8 L (42-52) % MCV 99.2 (80-100) fL MCH 31.7 (25-34) pg MCHC 31.9 L (32-36) g/dL RDW Std Deviation 59.7 H (36.4-46.3) fL RDW Coeff of [place] 16.6 H (11.5-14.5) % Plt Count 237 (130-400) K/uL MPV 9.4 (7.4-10.4) fL Immature Gran % (Auto) 0.4 % Neut % (Auto) 76.1 % Lymph % (Auto) 8.2 % [place] % (Auto) 13.7 % Eos % (Auto) 1.5 % Baso % (Auto) 0.1 % Neut # (Auto) 5.59 (1.4-6.5) K/uL Lymph # (Auto) 0.60 L (1.2-3.4) K/uL [place] # (Auto) 1.01 H (0.11-0.59) K/uL Eos # (Auto) 0.11 (0-0.5) K/uL Baso # (Auto) 0.01 (0-0.2) K/uL Immature Gran # (Auto) 0.03 H (0.00-0.02) K/uL Toxic Granulation Occasional Dohle Bodies 1+ Polychromasia 1+ Tear Drop Cells Occasional Rouleaux 1+ PT (9.0-12.0) Seconds INR (0.9-1.1) Sodium 139 (136-145) mmol/L Potassium 3.8 (3.5-5.1) mmol/L Chloride 105 (98-107) mmol/L Carbon Dioxide 25 (21-32) mmol/L Anion Gap 9.0 (3-11) BUN 28 H (7-18) mg/dl Creatinine 1.27 (0.6-1.4) mg/dl Est Cr Clr Drug Dosing Not Reportable Est GFR ( Amer) 58.5 ml/min Est GFR (Non-Af Amer) 50.5 ml/min BUN/Creatinine Ratio 21.9 H (10-20) Glucose 184 H (70-99) mg/dl Lactate (0.4-2.0) mmol/L Calcium 8.5 (8.5-10.1) mg/dl Magnesium (1.8-2.4) mg/dl Total Bilirubin 0.4 (0.2-1) mg/dl AST 11 L (15-37) U/L ALT 13 (12-78) U/L Alkaline Phosphatase 59 (45-117) U/L Ammonia (11-32) umol/L Total Protein 7.8 (6.4-8.2) gm/dl Albumin 2.0 L (3.4-5.0) gm/dl Globulin 5.8 H (2.5-4.0) gm/dl Albumin/Globulin Ratio 0.3 L (0.9-2) Lipase 220 (73-393) U/L Urine Color Urine Appearance (Clear) Urine pH (4.5-7.5) Ur Specific [place] (1.000-1.030) Urine Protein (Negative) Urine Glucose (UA) (Negative) Urine Ketones (Negative) Urine Blood (Negative) Urine Nitrite (Negative) Urine Bilirubin (Negative) Urine Urobilinogen (Negative) Ur Leukocyte Esterase (Negative) Urine WBC (Auto) (0-5) /hpf Urine RBC (Auto) (0-4) /hpf U Hyaline Cast (Auto) (0-5) /lpf U Epithel Cells (Auto) (0-5) /lpf Urine Bacteria (Auto) (Negative) Urine Yeast (None Prsent) Digoxin (0.8-2.0) ng/ml COVID-19 Eval Order SARS-CoV-2 (PCR) NEGATIVE (Negative) Blood Type Antibody Screen Crossmatch 07/27/21 07/27/21 Range/Units 00:30 00:30 WBC (4.8-10.8) K/uL RBC (4.7-6.1) M/uL Hgb (14.0-18.0) g/dL Hct (42-52) % MCV (80-100) fL MCH (25-34) pg MCHC (32-36) g/dL RDW Std Deviation (36.4-46.3) fL RDW Coeff of [place] (11.5-14.5) % Plt Count (130-400) K/uL MPV (7.4-10.4) fL Immature Gran % (Auto) % Neut % (Auto) % Lymph % (Auto) % [place] % (Auto) % Eos % (Auto) % Baso % (Auto) % Neut # (Auto) (1.4-6.5) K/uL Lymph # (Auto) (1.2-3.4) K/uL [place] # (Auto) (0.11-0.59) K/uL Eos # (Auto) (0-0.5) K/uL Baso # (Auto) (0-0.2) K/uL Immature Gran # (Auto) (0.00-0.02) K/uL Toxic Granulation Dohle Bodies Polychromasia Tear Drop Cells Rouleaux PT (9.0-12.0) Seconds INR (0.9-1.1) Sodium (136-145) mmol/L Potassium (3.5-5.1) mmol/L Chloride (98-107) mmol/L Carbon Dioxide (21-32) mmol/L Anion Gap (3-11) BUN (7-18) mg/dl Creatinine (0.6-1.4) mg/dl Est Cr Clr Drug Dosing Est GFR ( Amer) ml/min Est GFR (Non-Af Amer) ml/min BUN/Creatinine Ratio (10-20) Glucose (70-99) mg/dl Lactate (0.4-2.0) mmol/L Calcium (8.5-10.1) mg/dl Magnesium (1.8-2.4) mg/dl Total Bilirubin (0.2-1) mg/dl AST (15-37) U/L ALT (12-78) U/L Alkaline Phosphatase (45-117) U/L Ammonia (11-32) umol/L Total Protein (6.4-8.2) gm/dl Albumin (3.4-5.0) gm/dl Globulin (2.5-4.0) gm/dl Albumin/Globulin Ratio (0.9-2) Lipase (73-393) U/L Urine Color Yellow Urine Appearance Turbid A (Clear) Urine pH 5.0 (4.5-7.5) Ur Specific [place] 1.014 (1.000-1.030) Urine Protein 2+ H (Negative) Urine Glucose (UA) Trace H (Negative) Urine Ketones Negative (Negative) Urine Blood 3+ H (Negative) Urine Nitrite Positive A (Negative) Urine Bilirubin Negative (Negative) Urine Urobilinogen Negative (Negative) Ur Leukocyte Esterase 3+ H (Negative) Urine WBC (Auto) >30 H (0-5) /hpf Urine RBC (Auto) 10-30 H (0-4) /hpf U Hyaline Cast (Auto) 1-5 (0-5) /lpf U Epithel Cells (Auto) >30 H (0-5) /lpf Urine Bacteria (Auto) 4+ H (Negative) Urine Yeast Budding A (None Prsent) Digoxin (0.8-2.0) ng/ml COVID-19 Eval Order Covid19 at [facility] SARS-CoV-2 (PCR) (Negative) Blood Type Antibody Screen Crossmatch
--- NOTE | 2021-07-27 08:38 | XRay Report ---
XR chest 1V portable HISTORY: fever COMPARISON: Chest 04/25/2019. FINDINGS: No focal lung consolidations to suggest pneumonia. No evidence for pulmonary edema. The hea rt remains mildly enlarged. There are poststernotomy changes and a left-sided pacemaker/defibrillator . No pleural effusions. No pneumothorax. IMPRESSION: Stable mild cardiomegaly. ACT 112: Negative or not required by law. Electronically signed by: Wyatt Leblanc M.D. 07/27/2021 8:37 AM
--- NOTE | 2021-07-27 08:57 | Anesthesiology Consultation ---
Date of Service July 27, 2021 Assessment & Plan (1) Encounter for pre-operative examination: Chart Review Chart Review: Acceptable Risk for Surgery and Patient NOT seen in Pre Admission Testing Consults Requested none History Surgery Operation Date: 07/27/21 16:15 Proposed Procedures p Esophagogastroduodenoscopy Dr Kike Stokes, DO Height/Weight Weight: 93 kg Allergies Allergy/AdvReac Type Severity Reaction Status Date / Time Sulfa (Sulfonamide Allergy Severe Unresponsiv Verified 07/27/21 01:24 Antibiotics) e FELECIA Inhibitors Allergy Unknown Unknown Verified 07/27/21 01:24 prednisone AdvReac Intermediate BLISTERS Verified 07/27/21 01:24 IN THROAT pseudoephedrine AdvReac Intermediate TEMP ELEV Verified 07/27/21 01:24 Medications Home Medications Medication Instructions Recorded Confirmed Last Taken albuterol sulfate 90 mcg/actuation 1 puff INHALATION DIRECTED PRN 06/07/18 07/27/21 03/26/20 08:00 aerosol inhaler (Proventil HFA) aspirin 81 mg tablet,delayed 81 mg PO 3XWK 06/07/18 07/27/21 07/26/21 release (Aspirin Low Dose) clopidogrel 75 mg tablet (Plavix) 75 mg PO QAM 06/07/18 07/27/21 07/26/21 digoxin 125 mcg (0.125 mg) tablet See Rx Instructions .ROUTE .COMPLEX 06/07/18 07/27/21 07/26/21 0.250 fluticasone 250 mcg-salmeterol 50 1 inh INHALATION BID 06/07/18 07/27/21 07/26/21 mcg/dose blistr powdr for inhalation (Advair Diskus) losartan 100 mg tablet (Cozaar) 100 mg PO QAM 06/07/18 07/27/21 07/26/21 magnesium oxide 400 mg (241.3 mg 400 mg PO DAILY 06/07/18 07/27/21 07/26/21 magnesium) tablet metformin 850 mg tablet 850 mg PO BIDM 06/07/18 07/27/21 07/26/21 metoprolol succinate 50 mg 50 mg PO QAM 06/07/18 07/27/21 07/26/21 tablet,extended release 24 hr (Toprol XL) potassium chloride 20 mEq 20 meq PO DAILY 06/07/18 07/27/21 07/26/21 tablet,extended release(part/cryst) (Klor-Con M) simvastatin 40 mg tablet (Zocor) 40 mg PO QAM 06/07/18 07/27/21 07/26/21 acetaminophen 500 mg tablet 1,000 mg PO BID PRN 04/25/19 07/27/21 04/24/19 (Tylenol Extra Strength) furosemide 40 mg tablet (Lasix) See Rx Instructions .ROUTE .COMPLEX 04/25/19 07/27/21 07/26/21 80 MG latanoprost 0.005 % eye drops 1 drp OPHTHALMIC (EYE) PM 03/24/20 07/27/21 07/26/21 dutasteride 0.5 mg capsule 0.5 mg PO QAM #90 cap 12/17/20 07/27/21 07/26/21 albuterol sulfate 1.25 mg/3 mL 1.25 mg INHALATION Q4H PRN 04/21/21 07/27/21 Unknown solution for nebulization pantoprazole 20 mg tablet,delayed 20 mg PO DAILY 04/21/21 07/27/21 07/26/21 release donepezil 5 mg tablet 5 mg PO QDD 07/27/21 07/27/21 07/26/21 ferrous sulfate 325 mg (65 mg 325 mg PO DAILY 07/27/21 07/27/21 07/26/21 iron) tablet (FeroSul) Active Medications Generic Name Dose Route Start Last Admin Trade Name Freq PRN Reason Stop Dose Admin Pantoprazole Sodium 40 mg/ 100 mls @ 20 mls/hr 07/27/21 05:30 07/27/21 06:41 Dextrose IV 08/26/21 05:29 8 mg/hr Q5H ALIN 20 mls/hr Administration 8 MG/HR Past Medical History Medical History (Updated 07/27/21 @ 09:01 by Fareed Elliott, ) Anemia Aortic aneurysm unsure of last ultrasound/scan -- no surgical intervention. Moderate aortic root dilatation noted on 2018 echo. No AAA noted on [address] Aortic valve insufficiency Moderate-severe per 11/2018 echo BPH (benign prostatic hyperplasia) CAD (coronary artery disease) (08/21/14) S/p CABG July 2000 receiving KAUR graft to LAD, saphenous vein graft sequentially from the obtuse marginal to diagonal. S/p stenting of prox Cx 2013 Chronic back pain CKD stage 3 due to type 2 diabetes mellitus COPD (chronic obstructive pulmonary disease) Dyslipidemia GERD (gastroesophageal reflux disease) Glaucoma Hearing deficit [place] History of colon polyps HTN (hypertension) Ischemic cardiomyopathy EF normalized, most recently 55-60% on 11/2018 echo On home oxygen therapy 2 LPM QHS Osteoarthritis Persistent atrial fibrillation Anticoagulation contraindicated per cardiology Presence of combination internal cardiac defibrillator (ICD) and pacemaker follows w/ Dr. Sanford -- PMH provided by - unsure of brand/last check Tachy-lorna syndrome S/p dual chamber pacer with upgrade to pacer/ICD 2014 Type II diabetes mellitus NIDDM Past Family History Family History Grandmother Diabetes Mother Colon cancer Other Melanoma No family history of adverse response to anesthesia Past Surgical History Surgical History History of cardiac cath 1999 --> CABG 2013 - stent - [facility] History of cataract surgery History of colonoscopy History of prostate surgery History of tonsillectomy S/P CABG x 3 1999 S/P coronary artery stent placement July 2014 with stenting of the proximal circumflex Status post implantation of automatic cardioverter/defibrillator (AICD) Social History Smoking Status: Unknown if ever smoked Hx Alcohol Use: No alcohol intake frequency: holidays/special occasions only Hx Substance Use: No substance use type: does not use Physical Exam Vital Signs Last Vital Signs Temp 97.9 F 07/27/21 06:05 Pulse 70 07/27/21 06:05 Resp 18 07/27/21 06:05 BP 160/69 H 07/27/21 06:05 Pulse Ox 97 07/27/21 06:05 Testing Laboratory Results 07/27/21 00:42 07/27/21 00:42 PT 10.5 Seconds (9.0-12.0) 07/27/21 00:42 INR 1.0 (0.9-1.1) 07/27/21 00:42 Urine Color Yellow 07/27/21 00:30 Urine Appearance Turbid (Clear) A 07/27/21 00:30 Urine pH 5.0 (4.5-7.5) 07/27/21 00:30 Ur Specific [place] 1.014 (1.000-1.030) 07/27/21 00:30 Urine Protein 2+ (Negative) H 07/27/21 00:30 Urine Glucose (UA) Trace (Negative) H 07/27/21 00:30 Urine Ketones Negative (Negative) 07/27/21 00:30 Urine Nitrite Positive (Negative) A 07/27/21 00:30 Ur Leukocyte Esterase 3+ (Negative) H 07/27/21 00:30 Urine WBC (Auto) >30 /hpf (0-5) H 07/27/21 00:30 Urine RBC (Auto) 10-30 /hpf (0-4) H 07/27/21 00:30 U Hyaline Cast (Auto) 1-5 /lpf (0-5) 07/27/21 00:30 U Epithel Cells (Auto) >30 /lpf (0-5) H 07/27/21 00:30 Urine Bacteria (Auto) 4+ (Negative) H 07/27/21 00:30 Blood Type A Positive 07/27/21 02:11 Antibody Screen NEGATIVE 07/27/21 02:11 Electrocardiogram Date: 04/27/19 V Paced with PVCs Chest X-Ray Date: 07/27/21 Findings: + cardiomegaly
[2021-07-27] MEDS ORDERED: PANTOprazole 40 MG TAB PO SCH (09:00)
[2021-07-27] MEDS ORDERED: ATROPINE SULFATE 0.1 MG/ML 10ML SYR IV PRN (09:21)
[2021-07-27] MEDS ORDERED: ONDANSETRON INJ 2 MG/ML 2 ML VIAL IV PRN (09:21)
[2021-07-27] MEDS ORDERED: ePHEDrine sulfate 50 MG/ML AMP IV PRN (09:21)
--- NOTE | 2021-07-27 10:07 | GI REPORT ---
Patient Name: Marshall Booth Procedure Date: 07/27/2021 9:43 AM Date of : 1935 Admit Type: Inpatient Age: 86 Gender: Male Attending MD: Griffin Stokes DO Procedure: Upper GI endoscopy Providers: Griffin Stokes DO Referring MD: MAXIMILIANO ONEAL Indications: Melena Medicines: Monitored Anesthesia Care Complications: No immediate complications. Estimated blood loss: Minimal. Estimated Blood Loss: Estimated blood loss: none. Procedure: Pre-Anesthesia Assessment: - Prior to the procedure, a History and Physical was performed, and patient medications, allergies and sensitivities were reviewed. The patient's tolerance of previous anesthesia was reviewed. - The risks and benefits of the procedure and the sedation options and risks were discussed with the patient. All questions were answered and informed consent was obtained. - Patient identification and proposed procedure were verified prior to the procedure by the physician, the nurse and the hospital receiving clerk. The procedure was verified in the procedure room. - Pre-procedure physical examination revealed no contraindications to sedation. - ASA Grade Assessment: IV - A patient with severe systemic disease that is a constant threat to life. - After reviewing the risks and benefits, the patient was deemed in satisfactory condition to undergo the procedure. - The anesthesia plan was to use monitored anesthesia care (MAC). - Immediately prior to administration of medications, the patient was re-assessed for adequacy to receive sedatives. - The heart rate, respiratory rate, oxygen saturations, blood pressure, adequacy of pulmonary ventilation, and response to care were monitored throughout the procedure. - The physical status of the patient was re-assessed after the procedure. After obtaining informed consent, the endoscope was passed under direct vision. Throughout the procedure, the patient's blood pressure, pulse, and oxygen saturations were monitored continuously. The Scope was introduced through the mouth, and advanced to the third part of duodenum. The upper GI endoscopy was accomplished without difficulty. The patient tolerated the procedure well. Findings: The examined esophagus was normal. A medium-sized hiatal hernia was found. The proximal extent of the gastric folds (end of tubular esophagus) was 39 cm from the incisors. The hiatal narrowing was 43 cm from the incisors. Diffuse mild inflammation characterized by erythema and granularity was found in the entire examined stomach. Biopsies were taken with a cold forceps for histology. The pathology specimen was placed into Bottle A. Estimated blood loss was minimal. One non-obstructing non-bleeding superficial gastric ulcer of mild severity with no stigmata of bleeding was found in the gastric antrum. The lesion was 5 mm in largest dimension. One non-obstructing non-bleeding cratered duodenal ulcer with pigmented material was found in the duodenal bulb. The lesion was 15 mm in largest dimension. Many non-obstructing non-bleeding superficial duodenal ulcers with no stigmata of bleeding were found in the second portion of the duodenum. The largest lesion was 5 mm in largest dimension. Impression: - Normal esophagus. - Medium-sized hiatal hernia. - Gastritis. Biopsied. - Non-obstructing non-bleeding gastric ulcer with no stigmata of bleeding. NSAID induced etiology. - Non-obstructing non-bleeding duodenal ulcer with pigmented material. NSAID induced etiology. - Non-obstructing non-bleeding duodenal ulcers with no stigmata of bleeding. NSAID induced etiology. Recommendation: - [facility]. - Full liquid diet today. - Use Protonix (pantoprazole) 40 mg PO BID for 6 weeks, then reduce to 20 mg per day thereafter - Use sucralfate tablets 1 gram PO QID for 2 weeks. - No aspirin, ibuprofen, naproxen, or other non-steroidal anti-inflammatory drugs for 6 weeks. - Use an iron supplement for 6 weeks upon discharge. - Repeat upper endoscopy in 3 months for surveillance. Griffin Stokes D.O. Griffin Stokes, 07/27/2021 10:06:51 AM This report has been signed electronically. Note Initiated On: 07/27/2021 9:43 AM Number of Addenda: 0 I attest to the content of the Intraoperative Record and orders documented therein, exceptions below {[id number]}
--- NOTE | 2021-07-27 10:08 | Communication Note ---
Date of Service: July 27, 2021 The patient underwent upper endoscopy this morning for evaluation of melena. He was found to have several clean-based ulcers in the duodenum in addition to 1 ulcer in the duodenal bulb notable for pigmented spot. Recommendations Liquid diet today Protonix 40 mg twice daily for 6 weeks Protonix 40 mg twice daily for 6 weeks, then reduce to 20 mg daily thereafter Carafate 1 g 4 times daily for 2 weeks Avoid use of nonsteroidals for 6 weeks Daily iron supplement for 6 to 8 weeks upon discharge Repeat upper endoscopy in 3 months Please call with any questions or concerns GI to sign off
[2021-07-27] MEDS ORDERED: PROPOFOL IV EMULSION 10 MG/ML 20 ML VIAL IV ONE (10:11)
[2021-07-27] MEDS ORDERED: LIDOCAINE 2% 2 ML VIAL/AMP(20MG/ML) INFIL ONE (10:11)
[2021-07-27] MEDS: INSULIN ASPART 100 UNITS/ML 3 ML PEN SC SCH ×4 (10:54→21:02)
[2021-07-27] MEDS: NSS + 20MEQ KCL 20 MEQ/1,000 ML BAG IV SCH (11:03)
[2021-07-27] MEDS: METOPROLOL SUCC 50MG EXT REL TAB PO SCH (11:22)
[2021-07-27] MEDS: LOSARTAN POTASSIUM 50 MG TAB PO SCH (11:22)
[2021-07-27] MEDS: SIMVASTATIN 40 MG TAB PO SCH (11:22)
--- NOTE | 2021-07-27 12:14 | Anesthesiology Progress Note ---
Date of Service July 27, 2021 Anesthesia Post Procedure Vital Signs Vital Signs: Temp Pulse Pulse Resp BP BP Pulse Ox 07/27/21 10:39 71 20 143/55 H 93 07/27/21 10:24 75 20 144/47 H 93 07/27/21 10:09 77 12 102/53 L 95 07/27/21 09:17 99.9 F H 19 142/99 H 95 07/27/21 08:35 98.6 F 66 18 146/89 H 98 07/27/21 07:35 98.4 F 70 16 156/87 H 98 07/27/21 06:05 97.9 F 69 18 162/75 H 95 07/27/21 05:50 98.6 F 72 22 154/68 H 96 07/27/21 05:31 98.8 F 71 23 123/67 95 07/27/21 04:00 71 19 123/37 L 95 07/27/21 03:00 99.1 F 75 18 140/66 96 07/27/21 01:33 80 15 129/68 95 07/27/21 00:22 102.9 F H 87 24 158/64 H 95 Transfer of Care Handoff Completed per policy Notes Mental Status: alert / awake / arousable and participated in evaluation Patient Amnestic to Procedure: Yes Nausea / Vomiting: adequately controlled Pain: adequately controlled Airway Patency, RR, SpO2: stable & adequate BP & HR: stable & adequate Hydration State: stable & adequate Anesthetic Complications: no major complications apparent and Pt Satisfied with anesthetic care
[2021-07-27] MEDS: DONEPEZIL HCL 5 MG TAB PO SCH (16:43)
--- NOTE | 2021-07-27 20:55 | Communication Note ---
Date of Service: July 27, 2021 Patient was seen and examined for follow-up of GI bleed. Lying in bed with no distress with daughter at bedside. Patient said that he feels fine. He has not had any bowel movement this afternoon. His hemoglobin dropped to 7.6 and he is getting PRBC transfusion. FOBT positive on admission. Status post EGD showed several clean-based ulcers in the duodenum in addition to 1 ulcer in the duodenal bulb notable for pigmented spot. GI recommended to start on clear liquid diet for today and advance as tolerated. Will start on Protonix 40 mg twice daily for 6 weeks then reduce to 20 mg daily, Carafate 1 g 4 times daily for 2 weeks, daily iron supplement for 6 to 8 weeks. Will need to avoid NSAIDs for 6 weeks. Patient will need repeat EGD in 3 months. Continue monitor H&H and transfuse if needed during the hospital course. MD Kenia
[2021-07-27] MEDS: LATANOPROST 0.005% OP SOLN 2.5 ML BTL OP SCH (21:03)
[2021-07-27 23:52] LABS: Hematocrit (blood only) 26.6 % (42-52); Hemoglobin 8.8 g/dL (14.0-18.0)
[2021-07-28] MEDS: PANTOprazole 40 MG in DEXTROSE 5% 100 ML IV SCH ×3 (00:31→10:23)
[2021-07-28] MEDS: NSS + 20MEQ KCL 20 MEQ/1,000 ML BAG IV SCH (04:45)
[2021-07-28] MEDS ORDERED: CEFEPIME CONSULT ACTIVE PRN (04:49)
[2021-07-28] MEDS ORDERED: ACETAMINOPHEN 325 MG TAB PO STA (04:51)
--- NOTE | 2021-07-28 04:55 | Electrocardiogram Report ---
Test Reason : Blood Pressure : / mmHG Vent. Rate : 085 BPM Atrial Rate : 133 BPM P-R Int : 000 ms QRS Dur : 154 ms QT Int : 400 ms P-R-T Axes : 000 236 046 degrees QTc Int : 476 ms Ventricular-paced rhythm Abnormal ECG When compared with ECG of 27-APR-2019 06:34, Premature ventricular complexes are no longer Present Vent. rate has increased BY 8 BPM Confirmed by Ward Vanegas ([id number]) on 07/28/2021 4:55:16 AM Referred By: REFERRED SELF Confirmed By:Ward Vanegas
[2021-07-28] MEDS: CEFEPIME 2,000 MG in SYRINGE 0 ML IV SCH (06:23)
[2021-07-28 07:46] LABS: Basophils # (auto) 0.01 K/uL (0-0.2); Basophils % (auto) 0.2 %; Eosinophils # (auto) 0.17 K/uL (0-0.5); Eosinophils % (auto) 3.2 %; Hematocrit (blood only) 24.4 % (42-52); Immature Granulocytes # (auto) 0.02 K/uL (0.00-0.02); Immature Granulocytes % (auto) 0.4 %; Lymphocytes # (auto) 0.93 K/uL (1.2-3.4); Lymphocytes % (auto) 17.7 %; Mean Corpuscular Hemoglobin 30.9 pg (25-34); Mean Corpuscular Hgb Conc 32.8 g/dL (32-36); Mean Corpuscular Volume 94.2 fL (80-100); Mean Platelet Volume 9.1 fL (7.4-10.4); Monocytes # (auto) 0.97 K/uL (0.11-0.59); Monocytes % (auto) 18.4 %; Neutrophils # (auto) 3.16 K/uL (1.4-6.5); Neutrophils % (auto) 60.1 %; Platelet Count 193 K/uL (130-400); RDW Coefficient of Variation 18.1 % (11.5-14.5); RDW Standard Deviation 62.4 fL (36.4-46.3); Red Blood Count 2.59 M/uL (4.7-6.1); White Blood Count 5.26 K/uL (4.8-10.8)
[2021-07-28] MEDS ORDERED: cefTRIAXone SODIUM 2,000 MG in DEXTROSE 5% 50 ML IV SCH (08:00)
[2021-07-28 08:22] LABS: BUN Creatinine Ratio 16.7 (10-20); Calcium 8.2 mg/dl (8.5-10.1); Creatinine Clr Calc Pharmacy 46.8 ml/min; Est GFR (African American) 61.4 ml/min; Potassium 3.8 mmol/L (3.5-5.1)
[2021-07-28] MEDS: SIMVASTATIN 40 MG TAB PO SCH (08:37)
[2021-07-28] MEDS: FINASTERIDE 5 MG TAB PO SCH (08:37)
[2021-07-28] MEDS: LOSARTAN POTASSIUM 50 MG TAB PO SCH (08:38)
[2021-07-28] MEDS: INSULIN ASPART 100 UNITS/ML 3 ML PEN SC SCH ×4 (08:38→20:44)
[2021-07-28] MEDS: METOPROLOL SUCC 50MG EXT REL TAB PO SCH (08:38)
[2021-07-28] MEDS: PANTOprazole 40 MG TAB PO SCH ×2 (10:40→20:45)
[2021-07-28 14:36] LABS: Basophils # (auto) 0.01 K/uL (0-0.2); Basophils % (auto) 0.2 %; Eosinophils # (auto) 0.15 K/uL (0-0.5); Eosinophils % (auto) 3.2 %; Hematocrit (blood only) 24.4 % (42-52); Hemoglobin 7.9 g/dL (14.0-18.0); Immature Granulocytes # (auto) 0.01 K/uL (0.00-0.02); Immature Granulocytes % (auto) 0.2 %; Lymphocytes # (auto) 0.67 K/uL (1.2-3.4); Lymphocytes % (auto) 14.2 %; Mean Corpuscular Hgb Conc 32.4 g/dL (32-36); Mean Corpuscular Volume 95.7 fL (80-100); Mean Platelet Volume 9.2 fL (7.4-10.4); Monocytes # (auto) 0.79 K/uL (0.11-0.59); Monocytes % (auto) 16.7 %; Neutrophils # (auto) 3.09 K/uL (1.4-6.5); Neutrophils % (auto) 65.5 %; Platelet Count 200 K/uL (130-400); Red Blood Count 2.55 M/uL (4.7-6.1); White Blood Count 4.72 K/uL (4.8-10.8)
[2021-07-28 14:59] LABS: Dohle Bodies 1+; Rouleaux 1+; Toxic Granulation 1+
--- NOTE | 2021-07-28 15:00 | Hospitalist Progress Note ---
Date of Service July 28, 2021 Assessment & Plan (1) UGIB (upper gastrointestinal bleed): Plan: Upper GI Bleed secondary to Gastric and Duodenal Ulcer Patient predisposed by antiplatelet Rx for CAD status post CABG, stent/PVD - s/p EGD - continue Protonix BID x 6 weeks, then 20mg daily Sucralfate 1g QID x 2 weeks - no Ibuprofen, ASA, x 6 weeks - repeat EGD in 3 mos - repeat Hg pending Acute on chronic anemia secondary to above - Hg 8 no signs of active GI bleed - Hg pending Complicated UTI - Urine Cx: gram neg bacilli x 80k - Cefepime IV History BPH chronic diastolic heart failure (EF 50%, TTE 2019), patient euvolemic SSS status post PPM, paced rhythm, not on anticoagulation secondary to bleeding risk 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 DVT prophylaxis. SCDs Re: GI bleed Full code Disposition pending PT/OT eval Admission and Anticipated Discharge Date Admission Date: July 27, 2021 Subjective ff up for UGIB, UTI, etc seen resting in bed, comfortable, cheerful states he feels fine overall denies abdominal pain, nausea, melena/hematochezia tolerating diet well had fever early AM denies dysuria, chills no other symptoms no chest pain, dyspnea, palpitations, dizziness Review of Systems Review of Systems: all noted and negative except for above Physical Exam Physical Exam: General- oriented x 3, not in distress, speaks in sentences with no effort or accessory muscle use Head- atraumatic Eyes- PERRL, EOMI, anicteric ENT- oropharynx clear Neck- supple, no JVD, no adenopathy, no thyromegaly; carotids +2/2, no bruits appreciated Lungs- clear to auscultation bilaterally, no rales/wheezes Heart- normal rate, regular rhythm; no murmur, no gallop, no rub appreciated Abdomen- normal bowel sounds, nondistended, soft, nontender, no masses or hepatosplenomegaly Extremities- no pretibial edema, no calf tenderness; peripheral pulses intact Neuro- alert, oriented x 3; CN 2-12 grossly intact; motor 5/5 bilaterally;sensation 100% on all extremities; no other gross focal neurologic deficits Skin- warm & dry Results & Data Results & Data ([facility]) Vital Signs (Past 12 Hours) Vital Signs Temp Pulse Pulse Resp BP BP Pulse Ox 07/28/21 14:55 37.0 C 69 18 147/64 H 95 07/28/21 07:40 36.4 C L 71 16 118/55 L 92 07/28/21 07:20 70 07/28/21 04:37 37.1 C 07/28/21 03:00 38.5 C H 70 18 153/60 H 92 all noted and reviewed including below
[2021-07-28] MEDS: DONEPEZIL HCL 5 MG TAB PO SCH (17:07)
[2021-07-28 20:32] LABS: Hemoglobin 8.7 g/dL (14.0-18.0)
[2021-07-28] MEDS: LATANOPROST 0.005% OP SOLN 2.5 ML BTL OP SCH (20:44)
[2021-07-29] MEDS: CEFEPIME 2,000 MG in SYRINGE 0 ML IV SCH (05:33)
[2021-07-29 07:04] LABS: Creatinine Clr Calc Pharmacy 41.4 ml/min; Est GFR (African American) 52.9 ml/min; Est GFR (Non-African American) 45.6 ml/min
[2021-07-29] MEDS: FINASTERIDE 5 MG TAB PO SCH (08:53)
[2021-07-29] MEDS: PANTOprazole 40 MG TAB PO SCH ×2 (08:53→20:29)
[2021-07-29] MEDS: LOSARTAN POTASSIUM 50 MG TAB PO SCH (08:53)
[2021-07-29] MEDS: METOPROLOL SUCC 50MG EXT REL TAB PO SCH (08:53)
[2021-07-29] MEDS: INSULIN ASPART 100 UNITS/ML 3 ML PEN SC SCH ×4 (08:54→20:43)
[2021-07-29] MEDS: SIMVASTATIN 40 MG TAB PO SCH (08:54)
[2021-07-29] MEDS ORDERED: LEVALBUTEROL 1.25MG/0.5ML NEB NEB STA (10:02)
[2021-07-29] MEDS ORDERED: LEVALBUTEROL 1.25MG/0.5ML NEB NEB PRN (10:02)
--- NOTE | 2021-07-29 11:00 | XRay Report ---
XR chest 1V portable CLINICAL HISTORY: wheezing TECHNIQUE: Single frontal radiograph of the chest was obtained. Comparison: None available at the time of this dictation. FINDINGS: Stable implanted pacemaker defibrillator. Cardiomegaly is noted. The lungs are clear. No evidence of pleural effusion or pneumothorax. IMPRESSION: No acute chest disease. ACT 112: Negative or not required by law. Electronically signed by: Amari Sarmiento M.D. 07/29/2021 10:59 AM
--- NOTE | 2021-07-29 16:32 | Hospitalist Progress Note ---
Date of Service July 29, 2021 Assessment & Plan (1) UGIB (upper gastrointestinal bleed): Plan: Upper GI Bleed secondary to Gastric and Duodenal Ulcer Patient predisposed by antiplatelet Rx for CAD status post CABG, stent/PVD - s/p EGD - continue Protonix BID x 6 weeks, then 20mg daily Sucralfate 1g QID x 2 weeks - no Ibuprofen, ASA, etc x 6 weeks - repeat EGD in 3 mos - no signs of recurrence of GI bleed Hg pending Acute on chronic anemia secondary to above - Hg 8 no signs of active GI bleed - Hg pending History of CAD s/p stent -- ASA and Plavix on hold -- no cardiac symptoms -- will check with GI re: possibly resuming ASA at least Complicated UTI - Urine Cx: E coli x 80k - Cefepime IV-- intermediate change to Ceftri IV Day 1 Possible CASTRO -- check nocturnal pulse ox and ABG History BPH chronic diastolic heart failure (EF 50%, TTE 2019), patient euvolemic SSS status post PPM, paced rhythm, not on anticoagulation secondary to bleeding risk 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 DVT prophylaxis. SCDs Re: GI bleed Full code Disposition pending PT/OT eval Admission and Anticipated Discharge Date Admission Date: July 27, 2021 Subjective ff up for gi bleed, uti etc seen resting in bed, comfortable in good spirits smiling no abdominal pain, nausea/vomiting no problems with urination no chills no chest pain, dyspnea, palpitations, dizziness no other symptoms Review of Systems Review of Systems: all noted and negative except for above Physical Exam Physical Exam: General- oriented x 1-2, not in distress, speaks in sentences with no effort or accessory muscle use Eyes- anicteric Neck- no JVD Lungs- very faint wheeze, bilaterally no crackles Heart- normal rate, regular rhythm; no murmurs Abdomen- normal bowel sounds, nondistended, soft, nontender Extremities- no pretibial edema, no calf tenderness Neuro- alert, oriented x 1-2; no gross focal neurologic deficits Skin- warm & dry Results & Data Results & Data ([place]) Vital Signs (Past 12 Hours) Vital Signs Temp Pulse Pulse Resp BP Pulse Ox 07/29/21 15:05 71 07/29/21 15:03 36.7 C 70 19 146/68 H 99 07/29/21 10:51 36.7 C 71 16 154/71 H 97 07/29/21 10:19 80 20 99 07/29/21 07:51 37.2 C 75 16 157/68 H 94 07/29/21 07:35 55 L 07/29/21 07:25 37.4 C 70 18 156/65 H 92 all noted and reviewed including below
[2021-07-29 17:15] LABS: Base Excess ABG 0.6 mEq/L (-9-1.8); HCO3 ABG 24 mmol/L (19-24); Oxygen Saturation ABG 98.4 % (90-95); PCO2 ABG 33 mmHg (35-46); PO2 ABG 117 mmHg (80-95); pH ABG 7.47 (7.35-7.45)
[2021-07-29 17:18] LABS: Basophils # (auto) 0.01 K/uL (0-0.2); Basophils % (auto) 0.3 %; Eosinophils # (auto) 0.18 K/uL (0-0.5); Eosinophils % (auto) 4.6 %; Hematocrit (blood only) 24.5 % (42-52); Immature Granulocytes # (auto) 0.03 K/uL (0.00-0.02); Immature Granulocytes % (auto) 0.8 %; Lymphocytes # (auto) 1.02 K/uL (1.2-3.4); Lymphocytes % (auto) 25.9 %; Mean Corpuscular Hgb Conc 32.7 g/dL (32-36); Mean Platelet Volume 9.2 fL (7.4-10.4); Monocytes # (auto) 0.76 K/uL (0.11-0.59); Monocytes % (auto) 19.3 %; Neutrophils # (auto) 1.94 K/uL (1.4-6.5); Neutrophils % (auto) 49.1 %; Platelet Count 203 K/uL (130-400); RDW Coefficient of Variation 17.3 % (11.5-14.5); RDW Standard Deviation 60.1 fL (36.4-46.3); Red Blood Count 2.58 M/uL (4.7-6.1); White Blood Count 3.94 K/uL (4.8-10.8)
[2021-07-29] MEDS: DONEPEZIL HCL 5 MG TAB PO SCH (17:19)
[2021-07-29 17:26] LABS: Allen Test Pos (Pos)
[2021-07-29] MEDS: LATANOPROST 0.005% OP SOLN 2.5 ML BTL OP SCH (20:29)
[2021-07-30] MEDS: cefTRIAXone SODIUM 2,000 MG in DEXTROSE 5% 50 ML IV SCH (06:34)
[2021-07-30 08:50] LABS: Creatinine Clr Calc Pharmacy 47.6 ml/min; Est GFR (African American) 62.6 ml/min
[2021-07-30] MEDS: FINASTERIDE 5 MG TAB PO SCH (09:16)
[2021-07-30] MEDS: METOPROLOL SUCC 50MG EXT REL TAB PO SCH (09:17)
[2021-07-30] MEDS: LOSARTAN POTASSIUM 50 MG TAB PO SCH (09:17)
[2021-07-30] MEDS: PANTOprazole 40 MG TAB PO SCH ×2 (09:17→21:31)
[2021-07-30] MEDS: SIMVASTATIN 40 MG TAB PO SCH (09:17)
[2021-07-30] MEDS: INSULIN ASPART 100 UNITS/ML 3 ML PEN SC SCH ×4 (09:18→21:29)
[2021-07-30 10:06] LABS: Basophils # (auto) 0.01 K/uL (0-0.2); Basophils % (auto) 0.2 %; Eosinophils # (auto) 0.23 K/uL (0-0.5); Eosinophils % (auto) 5.5 %; Immature Granulocytes # (auto) 0.02 K/uL (0.00-0.02); Immature Granulocytes % (auto) 0.5 %; Lymphocytes # (auto) 0.94 K/uL (1.2-3.4); Lymphocytes % (auto) 22.5 %; Mean Corpuscular Hemoglobin 30.4 pg (25-34); Mean Corpuscular Volume 95.1 fL (80-100); Mean Platelet Volume 9.1 fL (7.4-10.4); Monocytes # (auto) 0.68 K/uL (0.11-0.59); Monocytes % (auto) 16.3 %; Platelet Count 229 K/uL (130-400); RDW Coefficient of Variation 17.3 % (11.5-14.5); Red Blood Count 2.63 M/uL (4.7-6.1); White Blood Count 4.18 K/uL (4.8-10.8)
[2021-07-30 10:23] LABS: BUN Creatinine Ratio 16.3 (10-20); Calcium 8.7 mg/dl (8.5-10.1); Creatinine Clr Calc Pharmacy 47.2 ml/min; Est GFR (Non-African American) 53.5 ml/min; Potassium 3.7 mmol/L (3.5-5.1)
[2021-07-30] MEDS: FLUTICASONE/VILANTEROL 200/25MCG 14 PUFFS/INHALER INH SCH (14:00)
[2021-07-30] MEDS: IPRATROPIUM BROMIDE NEB SOLN 0.02% 2.5 ML VIAL INH SCH ×2 (14:05→20:09)
[2021-07-30] MEDS: LEVALBUTEROL 1.25MG/0.5ML NEB INH SCH ×2 (14:05→20:09)
[2021-07-30] MEDS ORDERED: ASPIRIN 81 MG ECTAB PO SCH (15:30)
[2021-07-30] MEDS: DONEPEZIL HCL 5 MG TAB PO SCH (15:55)
[2021-07-30] MEDS ORDERED: XOPENEX/ATROVENT 1.25mg/0.5MG NEB COMBO NEB SCH (19:00)
[2021-07-30] MEDS: LATANOPROST 0.005% OP SOLN 2.5 ML BTL OP SCH (21:31)
[2021-07-31] MEDS: LEVALBUTEROL 1.25MG/0.5ML NEB INH SCH ×4 (00:36→20:03)
[2021-07-31] MEDS: IPRATROPIUM BROMIDE NEB SOLN 0.02% 2.5 ML VIAL INH SCH ×4 (00:36→20:03)
[2021-07-31 07:26] LABS: Creatinine Clr Calc Pharmacy 50.1 ml/min; Est GFR (African American) 66.6 ml/min; Est GFR (Non-African American) 57.5 ml/min
[2021-07-31] MEDS: cefTRIAXone SODIUM 2,000 MG in DEXTROSE 5% 50 ML IV SCH (07:27)
[2021-07-31] MEDS: INSULIN ASPART 100 UNITS/ML 3 ML PEN SC SCH ×4 (08:42→20:59)
[2021-07-31] MEDS: FINASTERIDE 5 MG TAB PO SCH (08:54)
[2021-07-31] MEDS: FLUTICASONE/VILANTEROL 200/25MCG 14 PUFFS/INHALER INH SCH (08:55)
[2021-07-31] MEDS: METOPROLOL SUCC 50MG EXT REL TAB PO SCH (08:56)
[2021-07-31] MEDS: LOSARTAN POTASSIUM 50 MG TAB PO SCH (08:56)
[2021-07-31] MEDS: SIMVASTATIN 40 MG TAB PO SCH (08:57)
[2021-07-31] MEDS: PANTOprazole 40 MG TAB PO SCH ×2 (08:57→19:36)
[2021-07-31] MEDS ORDERED: amLODIPine BESYLATE 5 MG TAB PO ONE (12:15)
--- NOTE | 2021-07-31 15:19 | Hospitalist Progress Note ---
Date of Service July 31, 2021 Assessment & Plan (1) UGIB (upper gastrointestinal bleed): Plan: Upper GI Bleed secondary to Gastric and Duodenal Ulcer Patient predisposed by antiplatelet Rx for CAD status post CABG, stent/PVD - s/p EGD - continue Protonix BID x 6 weeks, then 20mg daily Sucralfate 1g QID x 2 weeks - no Ibuprofen, ASA, etc x 6 weeks - repeat EGD in 3 mos - no signs of recurrence of GI bleed Hg 8.0 Acute on chronic anemia secondary to above - Hg 8 no signs of active GI bleed History of CAD s/p stent -- ASA and Plavix on hold -- no cardiac symptoms -- discussed with Dr. España- hold ASA and Plavix for at least 2 weeks, ff up with Cardiology for advice re: restarting Plavix Complicated UTI - Urine Cx: E coli x 80k - Cefepime IV-- intermediate change to Ceftri IV Possible CASTRO -- check nocturnal pulse ox and ABG patient has desaturation <88% for around 19 mins discussed with respiratory therapy- nocturnal o2 cannot be uptitrated will need formal sleep study as outpatient ABG no acidosis History of Asthma/COPD -- was having wheezing -- Advair and Nebs started wheezing improved History BPH chronic diastolic heart failure (EF 50%, TTE 2019), patient euvolemic SSS status post PPM, paced rhythm, not on anticoagulation secondary to bleeding risk 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 DVT prophylaxis. SCDs Re: GI bleed Full code Disposition pending PT/OT eval- recommend return home Admission and Anticipated Discharge Date Admission Date: July 27, 2021 Subjective ff up for gi bleed, uti, etc seen resting in bed, comfortable in good spirits states his breathing is better today no cough, fever/chills no abdominal pain, nausea/vomiting no chest pain, dyspnea, palpitations, dizziness no other symptoms Review of Systems Review of Systems: all noted and negative except for above Physical Exam Physical Exam: General- oriented x 2, not in distress, speaks in sentences with no effort or accessory muscle use Eyes- anicteric Neck- no JVD Lungs- clear breath sounds bilaterally, no wheezing no rales noted Heart- normal rate, regular rhythm; no murmurs Abdomen- normal bowel sounds, nondistended, soft, nontender Extremities- no pretibial edema, no calf tenderness Neuro- alert, oriented x 2; no gross focal neurologic deficits Skin- warm & dry Results & Data Results & Data ([facility]) Vital Signs (Past 12 Hours) Vital Signs Temp Pulse Pulse Resp BP Pulse Ox 07/31/21 14:56 36.7 C 68 18 150/68 H 94 07/31/21 13:44 89 18 96 07/31/21 11:51 36.7 C 67 18 160/74 H 96 07/31/21 07:40 36.8 C 68 16 154/72 H 98 07/31/21 07:05 81 20 94 07/31/21 04:31 35.8 C L 73 18 161/56 H 98 all noted and reviewed including below
[2021-07-31 15:33] LABS: Hematocrit (blood only) 22.8 % (42-52); Hemoglobin 7.4 g/dL (14.0-18.0)
[2021-07-31] MEDS ORDERED: SODIUM CHLORIDE 0.9% 250 ML IV PRN (16:08)
[2021-07-31] MEDS: FERROUS SULFATE 325 MG/7.4 ML UDP PO SCH (17:04)
[2021-07-31] MEDS: SUCRALFATE 1 GM TAB PO SCH ×2 (17:04→19:34)
[2021-07-31] MEDS: DONEPEZIL HCL 5 MG TAB PO SCH (17:04)
[2021-07-31] MEDS ORDERED: IRON SUCROSE 300 MG in SODIUM CHLORIDE 0.9% 250 ML IV ONE (18:00)
[2021-07-31] MEDS: LATANOPROST 0.005% OP SOLN 2.5 ML BTL OP SCH (19:36)
[2021-08-01] MEDS: LEVALBUTEROL 1.25MG/0.5ML NEB INH SCH ×2 (00:01→07:34)
[2021-08-01] MEDS: IPRATROPIUM BROMIDE NEB SOLN 0.02% 2.5 ML VIAL INH SCH ×2 (00:01→07:34)
[2021-08-01] MEDS: cefTRIAXone SODIUM 2,000 MG in DEXTROSE 5% 50 ML IV SCH (05:51)
[2021-08-01 06:50] LABS: Basophils # (auto) 0.01 K/uL (0-0.2); Basophils % (auto) 0.2 %; Eosinophils # (auto) 0.24 K/uL (0-0.5); Eosinophils % (auto) 4.8 %; Hematocrit (blood only) 26.1 % (42-52); Hemoglobin 8.3 g/dL (14.0-18.0); Immature Granulocytes # (auto) 0.04 K/uL (0.00-0.02); Immature Granulocytes % (auto) 0.8 %; Lymphocytes # (auto) 1.04 K/uL (1.2-3.4); Lymphocytes % (auto) 20.9 %; Mean Corpuscular Hemoglobin 29.7 pg (25-34); Mean Corpuscular Hgb Conc 31.8 g/dL (32-36); Mean Corpuscular Volume 93.5 fL (80-100); Monocytes # (auto) 0.44 K/uL (0.11-0.59); Monocytes % (auto) 8.8 %; Neutrophils # (auto) 3.21 K/uL (1.4-6.5); Neutrophils % (auto) 64.5 %; Platelet Count 244 K/uL (130-400); RDW Coefficient of Variation 19.4 % (11.5-14.5); Red Blood Count 2.79 M/uL (4.7-6.1); White Blood Count 4.98 K/uL (4.8-10.8)
[2021-08-01 07:17] LABS: BUN Creatinine Ratio 14.9 (10-20); Calcium 8.8 mg/dl (8.5-10.1); Creatinine Clr Calc Pharmacy 51.9 ml/min; Est GFR (African American) 69.6 ml/min; Potassium 3.7 mmol/L (3.5-5.1)
[2021-08-01] MEDS: PANTOprazole 40 MG TAB PO SCH ×2 (08:24→20:52)
[2021-08-01] MEDS: FINASTERIDE 5 MG TAB PO SCH (08:24)
[2021-08-01] MEDS: LOSARTAN POTASSIUM 50 MG TAB PO SCH (08:25)
[2021-08-01] MEDS: SUCRALFATE 1 GM TAB PO SCH ×4 (08:25→20:52)
[2021-08-01] MEDS: SIMVASTATIN 40 MG TAB PO SCH (08:25)
[2021-08-01] MEDS: METOPROLOL SUCC 50MG EXT REL TAB PO SCH (08:25)
[2021-08-01] MEDS: amLODIPine BESYLATE 5 MG TAB PO SCH (08:26)
[2021-08-01] MEDS: FERROUS SULFATE 325 MG/7.4 ML UDP PO SCH ×2 (08:27→16:54)
[2021-08-01] MEDS: FLUTICASONE/VILANTEROL 200/25MCG 14 PUFFS/INHALER INH SCH (08:27)
[2021-08-01] MEDS: INSULIN ASPART 100 UNITS/ML 3 ML PEN SC SCH ×4 (08:28→20:51)
[2021-08-01] MEDS: DONEPEZIL HCL 5 MG TAB PO SCH (16:53)
--- NOTE | 2021-08-01 18:18 | Hospitalist Progress Note ---
Date of Service August 01, 2021 Assessment & Plan (1) UGIB (upper gastrointestinal bleed): Plan: Upper GI Bleed secondary to Gastric and Duodenal Ulcer Patient predisposed by antiplatelet Rx for CAD status post CABG, stent/PVD - s/p EGD - continue Protonix BID x 6 weeks, then 20mg daily Sucralfate 1g QID x 2 weeks - no Ibuprofen, ASA, etc x 6 weeks - repeat EGD in 3 mos - no signs of recurrence of GI bleed Hg 7.4, additional 1 unit of packed RBCs given, hemoglobin 8.3 Acute on chronic anemia secondary to above - Hg 8 no signs of active GI bleed History of CAD s/p stent -- ASA and Plavix on hold -- no cardiac symptoms -- discussed with Dr. España- hold ASA and Plavix for at least 2 weeks, ff up with Cardiology for advice re: restarting Plavix Complicated UTI - Urine Cx: E coli x 80k - Cefepime IV-- intermediate change to Ceftri IV Possible CASTRO -- check nocturnal pulse ox and ABG patient has desaturation <88% for around 19 mins discussed with respiratory therapy- nocturnal o2 cannot be uptitrated will need formal sleep study as outpatient ABG no acidosis History of Asthma/COPD -- was having wheezing -- Advair and Nebs started wheezing improved History BPH chronic diastolic heart failure (EF 50%, TTE 2019), patient euvolemic SSS status post PPM, paced rhythm, not on anticoagulation secondary to bleeding risk 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 DVT prophylaxis. SCDs Re: GI bleed Full code Disposition pending PT/OT eval- recommend return home Admission and Anticipated Discharge Date Admission Date: July 27, 2021 Subjective Follow-up for upper GI bleed, etc. Seen resting in bed, patient's at bedside visiting Sitting up in bed, not in distress, in good spirits States he feels fine overall No Abdominal pain, nausea vomiting, melena hematochezia No shortness of breath Denies any other symptoms Review of Systems Review of Systems: all noted and negative except for above Results & Data Results & Data ([facility]) Vital Signs (Past 12 Hours) Vital Signs Temp Pulse Pulse Pulse Resp BP BP 08/01/21 17:07 71 08/01/21 15:17 36.9 C 67 18 174/79 H 08/01/21 15:00 70 08/01/21 12:15 37.0 C 67 18 148/64 H 08/01/21 07:35 78 16 08/01/21 07:28 37.0 C 70 16 157/69 H Pulse Ox 08/01/21 17:07 08/01/21 15:17 95 08/01/21 15:00 08/01/21 12:15 95 08/01/21 07:35 98 08/01/21 07:28 97 all noted and reviewed including below
[2021-08-01] MEDS: LATANOPROST 0.005% OP SOLN 2.5 ML BTL OP SCH (20:51)
[2021-08-02] MEDS: cefTRIAXone SODIUM 2,000 MG in DEXTROSE 5% 50 ML IV SCH (05:04)
[2021-08-02 08:06] LABS: Basophils # (auto) 0.01 K/uL (0-0.2); Basophils % (auto) 0.2 %; Eosinophils # (auto) 0.27 K/uL (0-0.5); Eosinophils % (auto) 4.7 %; Hematocrit (blood only) 27.7 % (42-52); Hemoglobin 8.7 g/dL (14.0-18.0); Immature Granulocytes # (auto) 0.03 K/uL (0.00-0.02); Immature Granulocytes % (auto) 0.5 %; Lymphocytes # (auto) 1.17 K/uL (1.2-3.4); Lymphocytes % (auto) 20.3 %; Mean Corpuscular Hemoglobin 29.3 pg (25-34); Mean Corpuscular Hgb Conc 31.4 g/dL (32-36); Mean Corpuscular Volume 93.3 fL (80-100); Mean Platelet Volume 9.3 fL (7.4-10.4); Monocytes # (auto) 0.46 K/uL (0.11-0.59); Neutrophils # (auto) 3.81 K/uL (1.4-6.5); Neutrophils % (auto) 66.3 %; Platelet Count 260 K/uL (130-400); RDW Coefficient of Variation 19.1 % (11.5-14.5); RDW Standard Deviation 65.4 fL (36.4-46.3); Red Blood Count 2.97 M/uL (4.7-6.1); White Blood Count 5.75 K/uL (4.8-10.8)
[2021-08-02] MEDS: FERROUS SULFATE 325 MG/7.4 ML UDP PO SCH (08:09)
[2021-08-02] MEDS: amLODIPine BESYLATE 5 MG TAB PO SCH (08:09)
[2021-08-02] MEDS: PANTOprazole 40 MG TAB PO SCH (08:10)
[2021-08-02] MEDS: FINASTERIDE 5 MG TAB PO SCH (08:10)
[2021-08-02] MEDS: SUCRALFATE 1 GM TAB PO SCH ×2 (08:10→12:20)
[2021-08-02] MEDS: METOPROLOL SUCC 50MG EXT REL TAB PO SCH (08:10)
[2021-08-02] MEDS: SIMVASTATIN 40 MG TAB PO SCH (08:10)
[2021-08-02] MEDS: FLUTICASONE/VILANTEROL 200/25MCG 14 PUFFS/INHALER INH SCH (08:10)
[2021-08-02] MEDS: LOSARTAN POTASSIUM 50 MG TAB PO SCH (08:10)
[2021-08-02] MEDS: INSULIN ASPART 100 UNITS/ML 3 ML PEN SC SCH ×2 (08:11→12:20)
[2021-08-02] MEDS ORDERED: amLODIPine BESYLATE 5 MG TAB PO SCH (09:00)
--- NOTE | 2021-08-02 13:25 | Hospitalist Progress Note ---
Date of Service August 02, 2021 Assessment & Plan (1) UGIB (upper gastrointestinal bleed): Plan: Upper GI Bleed secondary to Gastric and Duodenal Ulcers Patient predisposed by antiplatelet Rx for CAD status post CABG, stent/PVD - s/p EGD - continue Protonix BID x 6 weeks, then 20mg daily Sucralfate 1g QID x 2 weeks - no Ibuprofen, ASA, etc x 6 weeks - repeat EGD in 3 mos - no signs of recurrence of GI bleed Hg 7.4, additional 1 unit of packed RBCs given, hemoglobin 8.7 -- Hg 8.7 repeat CBC in 1 week, then monitor regularly Acute on chronic anemia secondary to above - Hg 8 no signs of reecurrence of GI bleed History of CAD s/p stent -- ASA and Plavix on hold -- no cardiac symptoms -- discussed with Dr. España- hold ASA and Plavix for at least 2 weeks, ff up with Cardiology for advice re: restarting Plavix Complicated UTI - Urine Cx: E coli x 80k - Cefepime IV-- intermediate change to Ceftri IV--> discharge on Cefdinir 300mg BID x 6 days Possible CASTRO -- check nocturnal pulse ox and ABG patient has desaturation <88% for around 19 mins discussed with respiratory therapy- nocturnal o2 cannot be uptitrated will need formal sleep study as outpatient ABG no acidosis History of Asthma/COPD -- was having wheezing -- Advair and Nebs started wheezing improved -- continue Advair History BPH chronic diastolic heart failure (EF 50%, TTE 2019), patient euvolemic SSS status post PPM, paced rhythm, not on anticoagulation secondary to bleeding risk 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 DVT prophylaxis. SCDs Re: GI bleed Full code Disposition d/c home with home health services ff up with PCP in1 week ff up with Archeologist in 2 weeks Attacher in 3-4 weeks Admission and Anticipated Discharge Date Admission Date: July 27, 2021 Subjective FF UP FOR ANEMIA, A FIB ETC seen resting in bed, sitting up at the edge, comfortable, cheerful in good spirits smiling states he feels fine overall no chest pain, dyspnea, palpitations, dizziness no fever/chills, cough no abdominal pain did not have BM today no other symptoms states he is ready for discharge today Review of Systems Review of Systems: all noted and negative except for above Physical Exam Physical Exam: General- oriented x 2, not in distress, speaks in sentences with no effort or accessory muscle use Eyes- anicteric Neck- no JVD Lungs- clear BS, no crackles or wheezing BL Heart- normal rate, regular rhythm; no murmurs Abdomen- normal bowel sounds, nondistended, soft, nontender Extremities- no pretibial edema, no calf tenderness Neuro- alert, oriented x 2; no gross focal neurologic deficits Skin- warm & dry Results & Data Results & Data ([facility]) Vital Signs (Past 12 Hours) Vital Signs Temp Pulse Pulse Resp BP BP Pulse Ox 08/02/21 11:00 36.8 C 70 18 148/66 H 93 08/02/21 08:05 36.9 C 78 18 160/80 H 93 08/02/21 08:00 76 08/02/21 02:58 36.9 C 73 18 174/73 H 95 all noted and reviewed including below
--- NOTE | 2021-08-02 13:39 | Hospitalist Progress Note ---
Date of Service August 02, 2021 Assessment & Plan (1) UGIB (upper gastrointestinal bleed): Plan: Upper GI Bleed secondary to Gastric and Duodenal Ulcers Patient predisposed by antiplatelet Rx for CAD status post CABG, stent/PVD - s/p EGD - continue Protonix BID x 6 weeks, then 20mg daily Sucralfate 1g QID x 2 weeks - no Ibuprofen, ASA, etc x 6 weeks - repeat EGD in 3 mos - no signs of recurrence of GI bleed Hg 7.4, additional 1 unit of packed RBCs given, hemoglobin 8.7 -- Hg 8.7 repeat CBC in 1 week, then monitor regularly Acute on chronic anemia secondary to above - Hg 8 no signs of reecurrence of GI bleed History of CAD s/p stent -- ASA and Plavix on hold -- no cardiac symptoms -- discussed with Dr. España- hold ASA and Plavix for at least 2 weeks, ff up with Cardiology for advice re: restarting Plavix Complicated UTI - Urine Cx: E coli x 80k - Cefepime IV-- intermediate change to Ceftri IV--> discharge on Cefdinir 300mg BID x 6 days Possible CASTRO -- check nocturnal pulse ox and ABG patient has desaturation <88% for around 19 mins discussed with respiratory therapy- nocturnal o2 cannot be uptitrated will need formal sleep study as outpatient ABG no acidosis History of Asthma/COPD -- was having wheezing -- Advair and Nebs started wheezing improved -- continue Advair History BPH chronic diastolic heart failure (EF 50%, TTE 2019), patient euvolemic SSS status post PPM, paced rhythm, not on anticoagulation secondary to bleeding risk 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 DVT prophylaxis. SCDs Re: GI bleed Full code Disposition d/c home with home health services ff up with PCP in1 week ff up with Mangle Tender in 2 weeks Print Line Inspector in 3-4 weeks Admission and Anticipated Discharge Date Admission Date: July 27, 2021 Results & Data Results & Data ([facility]) Vital Signs (Past 12 Hours) Vital Signs Temp Pulse Pulse Resp BP BP Pulse Ox 08/02/21 11:00 36.8 C 70 18 148/66 H 93 08/02/21 08:05 36.9 C 78 18 160/80 H 93 08/02/21 08:00 76 08/02/21 02:58 36.9 C 73 18 174/73 H 95
--- NOTE | 2021-08-04 11:22 | Discharge Summary ---
Date of Service August 04, 2021 Admission HPI Per Admitting Provider History obtained from patient, family, and records. Limited history from patient secondary to marked hearing impairment. 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 Last confinement for April 2019 for decompensated heart failure. 4 days history of nausea, vomiting, diarrhea yielding black stools. Patient denies chest pain, S OB, abdominal pain, fever, chills. Patient denies dysuria symptoms. No known sick contacts, recent antibiotic Rx. Patient dined at a restaurant about 2 weeks ago. At the ER, patient received Ceftriaxone for UTI. Stool FOBT done at the ER was positive. 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 Admission Exam (Per Admitting) Constitutional GENERAL: Comfortable, pleasant, hard of hearing, no respiratory distress SKIN: Pallor, warm HEENT: Pale palpebral conjunctivae, no ptosis, dry buccal mucosa NECK : Supple, no tenderness CHEST : CTA, no tenderness HEART : RRR, systolic murmur ABDOMEN: Some distention, nontender EXTREMITIES : Minimal LE swelling, no LE tenderness, no other conspicuous deformities noted NEUROLOGIC : Coherent, hard of hearing, no facial asymmetry, gait and stance not assessed Discharge Data Consultations 07/27/21 04:19 ED Decision to Admit Stat 07/27/21 07:20 Consult Gastroenterology Routine Procedures Performed Operation Date: 07/27/21 16:15 Actual Procedures p EGD Biopsy Cytology - Griffin Stokes DO Hospital Course (1) UGIB (upper gastrointestinal bleed): Upper GI Bleed secondary to Gastric and Duodenal Ulcers Patient predisposed by antiplatelet Rx for CAD status post CABG, stent/PVD - s/p EGD - continue Protonix BID x 6 weeks, then 20mg daily Sucralfate 1g QID x 2 weeks - no Ibuprofen, ASA, etc x 6 weeks - repeat EGD in 3 mos - no signs of recurrence of GI bleed Hg 7.4, additional 1 unit of packed RBCs given, hemoglobin 8.7 -- Hg 8.7 repeat CBC in 1 week, then monitor regularly Acute on chronic anemia secondary to above - Hg 8 no signs of recurrence of GI bleed History of CAD s/p stent -- ASA and Plavix on hold -- no cardiac symptoms -- discussed with Dr. España- hold ASA and Plavix for at least 2 weeks, ff up with Cardiology for advice re: restarting Plavix Complicated UTI - Urine Cx: E coli x 80k - Cefepime IV-- intermediate change to Ceftri IV--> discharge on Cefdinir 300mg BID x 6 days Possible CASTRO -- check nocturnal pulse ox and ABG patient has desaturation <88% for around 19 mins discussed with respiratory therapy- nocturnal o2 cannot be uptitrated will need formal sleep study as outpatient ABG no acidosis History of Asthma/COPD -- was having wheezing -- Advair and Nebs started wheezing improved -- continue Advair History BPH chronic diastolic heart failure (EF 50%, TTE 2019), patient euvolemic SSS status post PPM, paced rhythm, not on anticoagulation secondary to bleeding risk 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 DVT prophylaxis. SCDs Re: GI bleed Full code Disposition d/c home with home health services ff up with PCP in1 week ff up with Manager Of Information in 2 weeks Stocking Inspector in 3-4 weeks
== END 2021-08-02 16:00 | disposition home or self-care (01) | DRG 378 ==
LOC: ED 00:14 → EDINP 05:53 → SUATTDRO 05:53 → EDINP 06:10 → 2N 14:08

== ENCOUNTER 2022-04-20 18:38 | Inpatient (IN) ==
[2022-04-20] MEDS ORDERED: SODIUM CHLORIDE 0.9% 1000ML 1,000 ML IV ONE ×2 (18:45→19:37)
[2022-04-20] MEDS ORDERED: ACETAMINOPHEN 500 MG TAB PO STA (18:45)
--- NOTE | 2022-04-20 18:48 | Emergency Department Note ---
Impression & Plan Severe sepsis, Acute UTI (urinary tract infection), Lactic acidosis ED Provider Note Name: MARTA ALLEN Age: 87 Sex: M Arrives Via: Ambulance Informant: Patient, family ED Provider: Samson Posadas MD Chief Complaint: Illness Impression: As per impressions above Medical Decision Makin-year-old gentleman with history of CAD, hypertension, type 2 diabetes, CKD, A. fib arrives for evaluation of worsening mental status. He arrives febrile and altered though not tachycardic nor hypotensive. He is mildly hypoxic requiring nasal cannula O2. He has been treated for UTI over the last few days. On arrival septic work-up initiated blood cultures, lactic acid, labs and fluids begun. Patient received initial 1 L bolus normal saline while awaiting l abs. He was given empiric cefepime as antibiotic for coverage as he is growing out gram-negative bacilli in his urine from a few days ago. Lactic acid returned elevated consistent with his severe sepsis and he was given a further 1 L normal saline bolus. After this bolus he was noted to be well-hydrated and appeared much improved is mentating normally and thus further fluids were not felt indicated especially given no hypotension nor any lactic acid above 4 at this time. Chest x-ray reveals some mild congestion but no clear evidence of infiltrates or other concerning findings. His troponin is mildly elevated as well however this is likely secondary to his initial dehydration and mild bump in his renal function as opposed to coronary syndrome at this time. Hospitalist was consulted for further management of patient Prior Medical Record and Triage/Nursing Notes reviewed by Me Additional history obtained from family and chart Differentials:Viral syndrome, otitis, pharyngitis, pneumonia, influenza, meningitis, urinary tract infection, sepsis, bacteremia, as well as other pathologies. Vital Signs: reviewed and remarkable for fever Interventions: 1 L normal saline bolus x2, cefepime 2 g IV, Tylenol 1 g p.o. Labs:Reviewed and remarkable for lactic acidosis minor renal insufficiency Imagin view chest x-ray mild congestion no acute infiltrate EKG:Per My Interpretation: Indication sepsis: ventricular paced at 89 bpm, qtc 493. No Ectopy. No Ischemia. Compared to EKG 07/27/2021, no significant changes. Cardiac/Tele Monitoring: Cardiac Monitoring: An Order was placed for continuous cardiac monitoring. The monitor shows a rate of 70with a paced rhythm. [facility]: Disposition:Hospitalization. Condition: Good History of Present Illness: 87-year-old male arrives for evaluation of confusion. Patient was treated for UTI few days ago and has been on Cipro. Reportedly worsening confusion and fever at home. This occurred today. No reported falls, trauma, injuries. Patient reports no pain. Further history from EMS is limited. ROS: Patient confused/dementia unable to give review of systems Past Medical History:See Below Past Surgical History:See Below Family History:See Below Social History:See Below Home Medications:See Below Allergies:See Below Vitals:Blood Pressure: 158/94, Pulse 83, RR 20, T 38.0C, O2 97% on 2L NC Physical Exam: GENERAL: Patient is elderly/frail/confused/dehydrated appearing and in mild distress. EYES: No scleral icterus, unremarkable pupils. ENT: Mucous membranes moist, no nasal congestion. NECK: No masses appreciated, nomeningismus, trachea is midline. RESPIRATORY: No dyspnea. Clear to auscultation and equal bilaterally. No wheeze, no rhonchi. CARDIOVASCULAR: Regular rate and rhythm.No murmurs, rubs, gallops appreciated. GASTROINTESTINAL: Abdomen soft, non-tender, no peritonitis.Bowel sounds positive.No masses appreciated. BACK: No midline tenderness, no CVA tenderness EXTREMITIES: Normal motion all extremities, no cyanosis, no edema. NEUROLOGIC: Awake, confused, no acute motor or sensory deficits, no focal weakness, cranial nerves grossly intact. SKIN: No rash, no jaundice, no diaphoresis. PSYCH: Anxious GCS: 15 ED Course: Times/Reassessments: Patient arrived altered confused febrile and minimal story was able to be obtained. Septic work-up initiated. Family arrive and were able to give further history including the worsening confusion over the last few days without any falls or head injuries. He has been on Cipro for the last several days and I was able to obtain culture from outside hospital which is growing gram-negative bacilli at this time. No culture final result yet. On repeat evaluations of patient throughout his stay his mental status is vastly improving his color is returned and he is in no distress. He is interacting back at his baseline and looks improved. Critical Care: I have personally spent 35 minutes of critical care time in the direct management of this patient. Severe sepsis requiring fluid resuscitation and rapid stabilization. This was a life/limb threatening event. This 35 minutes is in excess of all separately billable procedures. Samson Posadas MD Past Med/Surg History Medical History Anemia Aortic aneurysm unsure of last ultrasound/scan -- no surgical intervention. Moderate aortic root dilatation noted on 2018 echo. No AAA noted on [address] Aortic valve insufficiency Moderate-severe per 11/2018 echo BPH (benign prostatic hyperplasia) CAD (coronary artery disease) (08/21/14) S/p CABG July 2000 receiving KAUR graft to LAD, saphenous vein graft sequentially from the obtuse marginal to diagonal. S/p stenting of prox Cx 2013 Chronic back pain CKD stage 3 due to type 2 diabetes mellitus no specialist COPD (chronic obstructive pulmonary disease) well controlled rare res inh use Dementia mild at present Dyslipidemia GERD (gastroesophageal reflux disease) GI bleed per pt's > had 3 units PRBC's [facility] during admission in Jul 2021 Glaucoma Hearing deficit [place] History of colon polyps HTN (hypertension) Ischemic cardiomyopathy EF normalized, most recently 55-60% on 11/2018 echo On home oxygen therapy 2 LPM QHS Osteoarthritis Persistent atrial fibrillation Anticoagulation contraindicated per cardiology > ICD Presence of combination internal cardiac defibrillator (ICD) and pacemaker follows w/ Dr. Sanford > [employer] > gets checked electronically > PMH provided by , eduardo when last checked in office. Tachy-lorna syndrome S/p dual chamber pacer with upgrade to pacer/ICD 2014 Type II diabetes mellitus NIDDM Surgical History History of cardiac cath 1999 --> CABG 2014 - 1 stent - [facility] History of cataract surgery bilat History of colonoscopy History of esophagogastroduodenoscopy (EGD) History of prostate surgery non cancerous History of tonsillectomy History of tooth extraction S/P CABG x 3 1999 S/P coronary artery stent placement July 2014 with stenting of the proximal circumflex Family History Grandmother Diabetes Mother Colon cancer Other Melanoma No family history of adverse response to anesthesia Social History Smoking Status: Unknown if ever smoked Second Hand Exposure: No; Hx Alcohol Use: No (unknown) Preferred Language: Faroese Communication Ability: Effective Computer Artist Required: Voice Beliefs That Will Affect Care: None marital status: Current Living Situation: Spouse Other Information That Helps Us Care for You: No Feels Safe at Home: Yes Safety Concerns: Feels Safe At This Time Assistive Devices: Glasses, Hearing Aid - Bilateral and Oxygen - at Night Allergies Allergies Allergy/AdvReac Type Severity Reaction Status Date / Time Sulfa (Sulfonamide Allergy Severe Unresponsiv Verified 04/20/22 19:57 Antibiotics) e FELECIA Inhibitors Allergy Unknown Unknown Verified 04/20/22 19:57 prednisone AdvReac Intermediate BLISTERS Verified 04/20/22 19:57 IN THROAT pseudoephedrine AdvReac Intermediate TEMP ELEV Verified 04/20/22 19:57 Home Meds Home Medications Medication Instructions Recorded Confirmed albuterol sulfate 90 mcg/actuation 2 puff inhalation QID PRN 06/07/18 04/20/22 aerosol inhaler (Proventil HFA) Shortness Of Breath digoxin 125 mcg (0.125 mg) tablet 125 mcg PO 3XWK 06/07/18 04/20/22 fluticasone 250 mcg-salmeterol 50 1 inh inhalation AMHS 06/07/18 04/20/22 mcg/dose blistr powdr for inhalation (Advair Diskus) magnesium oxide 400 mg (241.3 mg 400 mg PO PM 06/07/18 04/20/22 magnesium) tablet metformin 850 mg tablet 850 mg PO BIDM 06/07/18 04/20/22 metoprolol succinate 50 mg 50 mg PO QAM 06/07/18 04/20/22 tablet,extended release 24 hr (Toprol XL) potassium chloride 20 mEq 20 meq PO QAM 06/07/18 04/20/22 tablet,extended release(part/cryst) (Klor-Con M) acetaminophen 500 mg tablet 500 mg PO Q6 PRN Pain 04/25/19 04/20/22 (Tylenol Extra Strength) furosemide 40 mg tablet (Lasix) See Rx Instructions .Route .COMPLEX 04/25/19 04/20/22 latanoprost 0.005 % eye drops 1 drp OPB PM 03/24/20 04/20/22 albuterol sulfate 1.25 mg/3 mL 1.25 mg inhalation Q4H PRN Wheezing 04/21/21 04/20/22 solution for nebulization pantoprazole 40 mg tablet,delayed 40 mg PO QAM 10/22/21 04/20/22 release ciprofloxacin HCl 250 mg tablet 250 mg PO AMHS 04/20/22 04/20/22 clopidogrel 75 mg tablet 75 mg PO QAM 04/20/22 04/20/22 donepezil 10 mg tablet 10 mg PO QDD 04/20/22 04/20/22 losartan 50 mg tablet 50 mg PO QAM 04/20/22 04/20/22 simvastatin 20 mg tablet 20 mg PO QPM 04/20/22 04/20/22 triamcinolone acetonide 0.1 % 1 applic topical BID PRN rash or 04/20/22 04/20/22 topical ointment more instead of scratching Previous Rx's Medication Instructions Recorded ferrous sulfate 325 mg (65 mg 325 mg PO BID #0 tabs 08/02/21 iron) tablet (FeroSul) dutasteride 0.5 mg capsule 0.5 mg PO DAILY #90 caps 01/03/22 Results & Data (ED) Vital Signs Vital Signs - 24 hr 04/20/22 18:47 04/20/22 19:31 04/20/22 20:00 Temperature 38.0 C H Temperature Source Oral Pulse Rate 83 70 70 Respiratory Rate 20 24 24 Blood Pressure 158/94 H 155/68 H 149/76 H Blood Pressure Mean 115 97 100 Blood Pressure Position Lying Pulse Oximetry 97 97 96 Oxygen Delivery Method Nasal Cannula Oxygen Flow Rate 2 Sepsis Recent Fever Within 48 Hours Yes Sepsis New/Unexplained Change in Mental Status No Sepsis Action Taken by Nursing No Action Required Laboratory Data Result diagrams: 04/21/22 06:32 04/21/22 06:32 Lab Results 04/20/22 04/20/22 04/20/22 Range/Units 19:01 19:01 19:01 WBC 6.71 (4.8-10.8) K/ul RBC 2.51 L (4.63-6.08) M/uL Hgb 7.9 L (14.0-18.0) g/dl Hct 24.8 L (40.1-51.0) % MCV 98.8 (80.0-100.0) fL MCH 31.5 (25.0-34.0) pg MCHC 31.9 L (32.0-36.0) g/dL RDW Std Deviation 55.9 H (36.4-46.3) fL RDW Coeff of Maricarmen 15.7 H (11.5-14.5) % Plt Count 145 (130-400) K/uL MPV 10.0 (9.4-12.4) fL Immature Gran % (Auto) 0.3 % Neut % (Auto) 78.7 % Lymph % (Auto) 6.6 % Treasure % (Auto) 14.3 % Eos % (Auto) 0.0 % Baso % (Auto) 0.1 % Neut # (Auto) 5.28 (1.4-6.5) K/uL Lymph # (Auto) 0.44 L (1.2-3.4) K/uL Treasure # (Auto) 0.96 H (0.24-0.82) K/uL Eos # (Auto) 0.00 (0-0.50) K/uL Baso # (Auto) 0.01 (0-0.2) K/uL Immature Gran # (Auto) 0.02 (0.00-0.02) K/uL Tear Drop Cells 1+ PT 12.8 H (9.0-12.0) Seconds INR 1.2 H (0.9-1.1) VBG pH (7.36-7.41) VBG pCO2 (38-50) mmHg VBG pO2 mmHg VBG HCO3 mmol/L VBG O2 Saturation % VBG Base Excess mEq/L Sodium (136-145) mmol/L Potassium (3.5-5.1) mmol/L Chloride (98-107) mmol/L Carbon Dioxide (21-32) mmol/L Anion Gap (3-11) BUN (6-23) mg/dl Creatinine (0.6-1.4) mg/dl Est Cr Clr Drug Dosing ml/min Est GFR ( Amer) ml/min Est GFR (Non-Af Amer) ml/min BUN/Creatinine Ratio (10-20) Glucose (70-99(Fasting)) mg/dl Lactate 2.9 H* (0.4-2.0) mmol/L Calcium (8.5-10.1) mg/dl Magnesium (1.7-2.4) mg/dl Total Bilirubin (0.2-1.0) mg/dl Direct Bilirubin (0-0.2) mg/dl AST (13-39) U/L ALT (7-52) U/L Alkaline Phosphatase (34-104) U/L Troponin I High Sens (0-20) pg/ml Total Protein (6.0-8.3) gm/dl Albumin (3.4-5.0) gm/dl Lipase (11-82) U/L Procalcitonin (0-0.5) ng/ml Urine Color Urine Appearance (Clear) Urine pH (4.5-7.5) Ur Specific [place] (1.000-1.030) Urine Protein (Negative) Urine Glucose (UA) (Negative) Urine Ketones (Negative) Urine Blood (Negative) Urine Nitrite (Negative) Urine Bilirubin (Negative) Urine Urobilinogen (Negative) Ur Leukocyte Esterase (Negative) Urine WBC (Auto) (0-5) /hpf Urine RBC (Auto) (0-4) /hpf U Hyaline Cast (Auto) (0-5) /lpf U Epithel Cells (Auto) (0-5) /lpf Urine Bacteria (Auto) (Negative) SARS-CoV-2, RNA, NAAT (NEGATIVE) 04/20/22 04/20/22 04/20/22 Range/Units 19:01 19:01 19:01 WBC (4.8-10.8) K/ul RBC (4.63-6.08) M/uL Hgb (14.0-18.0) g/dl Hct (40.1-51.0) % MCV (80.0-100.0) fL MCH (25.0-34.0) pg MCHC (32.0-36.0) g/dL RDW Std Deviation (36.4-46.3) fL RDW Coeff of Maricarmen (11.5-14.5) % Plt Count (130-400) K/uL MPV (9.4-12.4) fL Immature Gran % (Auto) % Neut % (Auto) % Lymph % (Auto) % Treasure % (Auto) % Eos % (Auto) % Baso % (Auto) % Neut # (Auto) (1.4-6.5) K/uL Lymph # (Auto) (1.2-3.4) K/uL Treasure # (Auto) (0.24-0.82) K/uL Eos # (Auto) (0-0.50) K/uL Baso # (Auto) (0-0.2) K/uL Immature Gran # (Auto) (0.00-0.02) K/uL Tear Drop Cells PT (9.0-12.0) Seconds INR (0.9-1.1) VBG pH (7.36-7.41) VBG pCO2 (38-50) mmHg VBG pO2 mmHg VBG HCO3 mmol/L VBG O2 Saturation % VBG Base Excess mEq/L Sodium 138 (136-145) mmol/L Potassium 3.8 (3.5-5.1) mmol/L Chloride 98 (98-107) mmol/L Carbon Dioxide 24 (21-32) mmol/L Anion Gap 16 H (3-11) BUN 36 H (6-23) mg/dl Creatinine 1.54 H (0.6-1.4) mg/dl Est Cr Clr Drug Dosing 36.4 ml/min Est GFR ( Amer) 46.0 ml/min Est GFR (Non-Af Amer) 39.7 ml/min BUN/Creatinine Ratio 23.4 H (10-20) Glucose 129 H (70-99(Fasting)) mg/dl Lactate (0.4-2.0) mmol/L Calcium 8.2 L (8.5-10.1) mg/dl Magnesium 1.5 L (1.7-2.4) mg/dl Total Bilirubin 0.6 (0.2-1.0) mg/dl Direct Bilirubin 0.2 (0-0.2) mg/dl AST 21 (13-39) U/L ALT 15 (7-52) U/L Alkaline Phosphatase 52 (34-104) U/L Troponin I High Sens 54.4 H* (0-20) pg/ml Total Protein 7.8 (6.0-8.3) gm/dl Albumin 2.8 L (3.4-5.0) gm/dl Lipase 7 L (11-82) U/L Procalcitonin 5.47 H (0-0.5) ng/ml Urine Color Yellow Urine Appearance Cloudy A (Clear) Urine pH 5.0 (4.5-7.5) Ur Specific [place] 1.011 (1.000-1.030) Urine Protein 1+ H (Negative) Urine Glucose (UA) Negative (Negative) Urine Ketones Negative (Negative) Urine Blood 2+ H (Negative) Urine Nitrite Negative (Negative) Urine Bilirubin Negative (Negative) Urine Urobilinogen Negative (Negative) Ur Leukocyte Esterase 3+ H (Negative) Urine WBC (Auto) >30 H (0-5) /hpf Urine RBC (Auto) 5-10 H (0-4) /hpf U Hyaline Cast (Auto) 1-5 (0-5) /lpf U Epithel Cells (Auto) 0-5 (0-5) /lpf Urine Bacteria (Auto) 2+ H (Negative) SARS-CoV-2, RNA, NAAT (NEGATIVE) 04/20/22 04/20/22 Range/Units 19:27 19:32 WBC (4.8-10.8) K/ul RBC (4.63-6.08) M/uL Hgb (14.0-18.0) g/dl Hct (40.1-51.0) % MCV (80.0-100.0) fL MCH (25.0-34.0) pg MCHC (32.0-36.0) g/dL RDW Std Deviation (36.4-46.3) fL RDW Coeff of Maricarmen (11.5-14.5) % Plt Count (130-400) K/uL MPV (9.4-12.4) fL Immature Gran % (Auto) % Neut % (Auto) % Lymph % (Auto) % Treasure % (Auto) % Eos % (Auto) % Baso % (Auto) % Neut # (Auto) (1.4-6.5) K/uL Lymph # (Auto) (1.2-3.4) K/uL Treasure # (Auto) (0.24-0.82) K/uL Eos # (Auto) (0-0.50) K/uL Baso # (Auto) (0-0.2) K/uL Immature Gran # (Auto) (0.00-0.02) K/uL Tear Drop Cells PT (9.0-12.0) Seconds INR (0.9-1.1) VBG pH 7.51 H (7.36-7.41) VBG pCO2 35 L (38-50) mmHg VBG pO2 64 mmHg VBG HCO3 28 mmol/L VBG O2 Saturation 93.2 % VBG Base Excess 4.9 mEq/L Sodium (136-145) mmol/L Potassium (3.5-5.1) mmol/L Chloride (98-107) mmol/L Carbon Dioxide (21-32) mmol/L Anion Gap (3-11) BUN (6-23) mg/dl Creatinine (0.6-1.4) mg/dl Est Cr Clr Drug Dosing ml/min Est GFR ( Amer) ml/min Est GFR (Non-Af Amer) ml/min BUN/Creatinine Ratio (10-20) Glucose (70-99(Fasting)) mg/dl Lactate (0.4-2.0) mmol/L Calcium (8.5-10.1) mg/dl Magnesium (1.7-2.4) mg/dl Total Bilirubin (0.2-1.0) mg/dl Direct Bilirubin (0-0.2) mg/dl AST (13-39) U/L ALT (7-52) U/L Alkaline Phosphatase (34-104) U/L Troponin I High Sens (0-20) pg/ml Total Protein (6.0-8.3) gm/dl Albumin (3.4-5.0) gm/dl Lipase (11-82) U/L Procalcitonin (0-0.5) ng/ml Urine Color Urine Appearance (Clear) Urine pH (4.5-7.5) Ur Specific [place] (1.000-1.030) Urine Protein (Negative) Urine Glucose (UA) (Negative) Urine Ketones (Negative) Urine Blood (Negative) Urine Nitrite (Negative) Urine Bilirubin (Negative) Urine Urobilinogen (Negative) Ur Leukocyte Esterase (Negative) Urine WBC (Auto) (0-5) /hpf Urine RBC (Auto) (0-4) /hpf U Hyaline Cast (Auto) (0-5) /lpf U Epithel Cells (Auto) (0-5) /lpf Urine Bacteria (Auto) (Negative) SARS-CoV-2, RNA, NAAT NEGATIVE (NEGATIVE) Administered Medications Albuterol (Albut/Ipratrop 3mg/0.5mg Neb 3 Ml Vial) 3 ml NEB QIDR ALIN; Protocol Stop: 05/21/22 06:59 Last Admin: 04/21/22 07:54 Dose: 3 ml Documented By: EML Sodium Chloride (Nss 1000ml) 1,000 mls @ 125 mls/hr IV .Q8H ALIN Stop: 05/20/22 19:44 Last Admin: 04/21/22 04:17 Dose: 125 mls/hr Documented By: Infusion: 04/21/22 04:17 Dose: 125 mls/hr Documented By: Admin: 04/20/22 22:24 Dose: 125 mls/hr Documented By: ALH Magnesium Sulfate/Dextrose (Magnesium Sulfate / D5w) 1 gm in 100 mls @ 50 mls/hr IV Q2H ALIN Stop: 04/21/22 10:14 Last Admin: 04/21/22 06:22 Dose: 50 mls/hr Documented By: MARBELLA Latanoprost (Latanoprost 0.005% Op Soln 2.5 Ml Btl) 1 drops OPB PM ALIN Stop: 05/20/22 22:09 Last Admin: 04/20/22 23:13 Dose: 1 drops Documented By: MARBELLA Miscellaneous (Dutasteride 0.5 Mg - Order Awaiting Action) 1 each N/A QS ALIN Stop: 05/21/22 00:00 Last Admin: 04/20/22 23:14 Dose: Not Given Documented By: MARBELLA Discontinued Medications Acetaminophen (Acetaminophen 500 Mg Tab) 1,000 mg PO NOW STA Stop: 04/20/22 18:46 Last Admin: 04/20/22 19:05 Dose: 1,000 mg Documented By: NMS Sodium Chloride (Nss 1000ml) 1,000 mls @ 999 mls/hr IV .Q1H1M ONE Stop: 04/20/22 19:45 Last Infusion: 04/20/22 20:18 Dose: 0 mls/hr Documented By: Admin: 04/20/22 19:05 Dose: 999 mls/hr Documented By: NMS Cefepime HCl (Maxipime) 2,000 mg in 20 mls @ 5 mls/min IV NOW STA; Protocol Stop: 04/20/22 19:22 Last Admin: 04/20/22 19:26 Dose: 5 mls/min Documented By: OAM Sodium Chloride (Nss 1000ml) 1,000 mls @ 999 mls/hr IV .Q1H1M ONE Stop: 04/20/22 20:37 Last Infusion: 04/20/22 20:49 Dose: 0 mls/hr Documented By: Admin: 04/20/22 19:47 Dose: 999 mls/hr Documented By: ANA Imaging Data Radiologist's Impression: Chest X-Ray 04/20/22 18:45 SINGLE VIEW CHEST CLINICAL HISTORY: Sepsis. FINDINGS: An AP, portable, upright chest radiograph is compared to study dated 07/21/2021. The patient is status post midline sternotomy. A multilead cardiac AICD is unchanged in position and partially obscures the left upper chest. The heart is enlarged noting atherosclerotic calcification of the thoracic aorta. There is mild pulmonary vascular congestion. A calcified granuloma is noted in the left upper lobe. Chronic interstitial thickening is similar to previous. The lungs and pleural spaces are clear noting mild bibasilar atelectasis. No pneumothorax is seen. The skeletal structures are osteopenic. The bony thorax is grossly intact. IMPRESSION: 1. Cardiomegaly and AICD with mild pulmonary vascular congestion. 2. No airspace consolidation or large pleural effusion is identified. ACT 112: Negative or not required by law. Electronically signed by: Troy Wood M.D. 04/20/2022 8:20 PM Discharge Plan Visit Data Chief Complaint: Illness Stated Complaint: Fever ED Provider: Samson Posadas Discharge Problem: Severe sepsis, Acute UTI (urinary tract infection), Lactic acidosis Patient Disposition: Admitted As Inpatient Discharge Instructions Interventions: ED Discharge Assessment Last Done: 04/20/22 22:02
[2022-04-20 19:14] LABS: Basophils # (auto) 0.01 K/uL (0-0.2); Basophils % (auto) 0.1 %; Hematocrit (blood only) 24.8 % (40.1-51.0); Hemoglobin 7.9 g/dl (14.0-18.0); Immature Granulocytes # (auto) 0.02 K/uL (0.00-0.02); Immature Granulocytes % (auto) 0.3 %; Lymphocytes # (auto) 0.44 K/uL (1.2-3.4); Lymphocytes % (auto) 6.6 %; Mean Corpuscular Hemoglobin 31.5 pg (25.0-34.0); Mean Corpuscular Hgb Conc 31.9 g/dL (32.0-36.0); Mean Corpuscular Volume 98.8 fL (80.0-100.0); Monocytes # (auto) 0.96 K/uL (0.24-0.82); Monocytes % (auto) 14.3 %; Neutrophils # (auto) 5.28 K/uL (1.4-6.5); Neutrophils % (auto) 78.7 %; Platelet Count 145 K/uL (130-400); RDW Coefficient of Variation 15.7 % (11.5-14.5); RDW Standard Deviation 55.9 fL (36.4-46.3); Red Blood Count 2.51 M/uL (4.63-6.08); White Blood Count 6.71 K/ul (4.8-10.8)
[2022-04-20] MEDS ORDERED: CEFEPIME 2,000 MG/20 ML VIAL IV STA (19:19)
[2022-04-20 19:21] LABS: Appearance Urine Cloudy (Clear); Bacteria Urine Automated 2+ (Negative); Bilirubin Urine Negative (Negative); Blood Urine 2+ (Negative); Color Urine Yellow; Epithelial Cell Urine Auto 0-5 /lpf (0-5); Glucose Urine UA Negative (Negative); Ketones Urine Negative (Negative); Leukocyte Esterase Urine 3+ (Negative); Nitrite Urine Negative (Negative); Protein Urine 1+ (Negative); Specific Gravity Urine 1.011 (1.000-1.030); Urobilinogen Urine Negative (Negative); WBC Urine Automated >30 /hpf (0-5)
[2022-04-20 19:24] LABS: INR 1.2 (0.9-1.1); Prothrombin Time 12.8 Seconds (9.0-12.0)
[2022-04-20 19:35] LABS: Albumin Level 2.8 gm/dl (3.4-5.0); BUN Creatinine Ratio 23.4 (10-20); Bilirubin Direct 0.2 mg/dl (0-0.2); Bilirubin,Total 0.6 mg/dl (0.2-1.0); Calcium 8.2 mg/dl (8.5-10.1); Creatinine Clr Calc Pharmacy 36.4 ml/min; Est GFR (Non-African American) 39.7 ml/min; Magnesium 1.5 mg/dl (1.7-2.4); Potassium 3.8 mmol/L (3.5-5.1); Total Protein 7.8 gm/dl (6.0-8.3)
[2022-04-20 19:39] LABS: Tear Drop Cells 1+
[2022-04-20 19:43] LABS: Troponin I High Sensitivity 54.4 pg/ml (0-20)
[2022-04-20 19:54] LABS: Base Excess VBG 4.9 mEq/L; HCO3 VBG 28 mmol/L; Oxygen Saturation VBG 93.2 %; PCO2 VBG 35 mmHg (38-50); PO2 VBG 64 mmHg; pH VBG 7.51 (7.36-7.41)
--- NOTE | 2022-04-20 20:14 | History & Physical Report ---
Date of Service April 20, 2022 Assessment & Plan (1) Sepsis: Plan: IV fluid resuscitation in ER with improvement in lactate. Continue on broad- spectrum cefepime at this time pending clinical improvement and culture results. (2) Acute UTI: Plan: Cefepime (3) Persistent atrial fibrillation: Plan: Chronic atrial fibrillation with contraindications to anticoagulation per outpatient cardiology notes. Continue digoxin per home regimen. (4) S/P coronary artery stent placement: Plan: Chronic, stable. Elevated troponin likely secondary to demand ischemia in setting of sepsis. Echo was ordered to ensure no acute wall motion abnormalities. Continue current home regimen (5) Type II diabetes mellitus: Plan: Hold home metformin and administer basal bolus insulin while admitted. A1c in AM. (6) HTN (hypertension): Plan: Chronic, around goal. Continue current medication. 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 Continue to renally dose meds and avoid nephrotoxic substances. (8) Dementia: Plan: High risk for delirium in the hospital and this was explained to the family. Continue good day night cycles and reorient as necessary. Continue donepezil per home regimen. (9) DVT prophylaxis: Plan: Lovenox Full code Disposition-admit to [facility], [facility] Hospitalist History of Present Illness Chief Complaint: illness Primary Care Provider: Muriel Chowdary MD 87 yo M who started with a fever on Monday followed by vomiting and mild cough. Not drinking much and urine is dark with a strong smell. He went to see PCP on 04/19 and a urine culture was positive for gram negative bacteria. He was placed on Cipro and has taken two doses but was worsening at home so family brought him in. He presents to the ER septic. Family noted worsening confusion and significant weakness. 1L NSS was given with improvement. Lactate was elevated to 2.6. Another L was given and he is being continued on IVF. Repeat lactate was 1.9. The patient states that he feels fine. History comes from his and son who are at bedside as the patient has dementia. He does know he is in the hospital but is not sure why. Allergies Allergy/AdvReac Type Severity Reaction Status Date / Time Sulfa (Sulfonamide Allergy Severe Unresponsiv Verified 04/20/22 19:57 Antibiotics) e FELECIA Inhibitors Allergy Unknown Unknown Verified 04/20/22 19:57 prednisone AdvReac Intermediate BLISTERS Verified 04/20/22 19:57 IN THROAT pseudoephedrine AdvReac Intermediate TEMP ELEV Verified 04/20/22 19:57 Home Medications Medication Instructions Recorded Confirmed Type albuterol sulfate 90 mcg/actuation 2 puff inhalation QID PRN 06/07/18 04/20/22 History aerosol inhaler (Proventil HFA) Shortness Of Breath digoxin 125 mcg (0.125 mg) tablet 125 mcg PO 3XWK 06/07/18 04/20/22 History fluticasone 250 mcg-salmeterol 50 1 inh inhalation AMHS 06/07/18 04/20/22 History mcg/dose blistr powdr for inhalation (Advair Diskus) magnesium oxide 400 mg (241.3 mg 400 mg PO PM 06/07/18 04/20/22 History magnesium) tablet metformin 850 mg tablet 850 mg PO BIDM 06/07/18 04/20/22 History metoprolol succinate 50 mg 50 mg PO QAM 06/07/18 04/20/22 History tablet,extended release 24 hr (Toprol XL) potassium chloride 20 mEq 20 meq PO QAM 06/07/18 04/20/22 History tablet,extended release(part/cryst) (Klor-Con M) acetaminophen 500 mg tablet 500 mg PO Q6 PRN Pain 04/25/19 04/20/22 History (Tylenol Extra Strength) furosemide 40 mg tablet (Lasix) See Rx Instructions .Route .COMPLEX 04/25/19 04/20/22 History latanoprost 0.005 % eye drops 1 drp OPB PM 03/24/20 04/20/22 History albuterol sulfate 1.25 mg/3 mL 1.25 mg inhalation Q4H PRN Wheezing 04/21/21 04/20/22 History solution for nebulization ferrous sulfate 325 mg (65 mg 325 mg PO BID #0 tabs 08/02/21 04/20/22 Rx iron) tablet (FeroSul) pantoprazole 40 mg tablet,delayed 40 mg PO QAM 10/22/21 04/20/22 History release dutasteride 0.5 mg capsule 0.5 mg PO DAILY #90 caps 01/03/22 04/20/22 Rx ciprofloxacin HCl 250 mg tablet 250 mg PO AMHS 04/20/22 04/20/22 History clopidogrel 75 mg tablet 75 mg PO QAM 04/20/22 04/20/22 History donepezil 10 mg tablet 10 mg PO QDD 04/20/22 04/20/22 History losartan 50 mg tablet 50 mg PO QAM 04/20/22 04/20/22 History simvastatin 20 mg tablet 20 mg PO QPM 04/20/22 04/20/22 History triamcinolone acetonide 0.1 % 1 applic topical BID PRN rash or 04/20/22 04/20/22 History topical ointment more instead of scratching Past Med/Surg History Medical History Anemia Aortic aneurysm unsure of last ultrasound/scan -- no surgical intervention. Moderate aortic root dilatation noted on 2018 echo. No AAA noted on [address] Aortic valve insufficiency Moderate-severe per 11/2018 echo BPH (benign prostatic hyperplasia) CAD (coronary artery disease) (08/21/14) S/p CABG July 2000 receiving KAUR graft to LAD, saphenous vein graft sequentially from the obtuse marginal to diagonal. S/p stenting of prox Cx 2013 Chronic back pain CKD stage 3 due to type 2 diabetes mellitus no specialist COPD (chronic obstructive pulmonary disease) well controlled rare res inh use Dementia mild at present Dyslipidemia GERD (gastroesophageal reflux disease) GI bleed per pt's > had 3 units PRBC's [facility] during admission in Jul 2021 Glaucoma Hearing deficit [place] History of colon polyps HTN (hypertension) Ischemic cardiomyopathy EF normalized, most recently 55-60% on 11/2018 echo On home oxygen therapy 2 LPM QHS Osteoarthritis Persistent atrial fibrillation Anticoagulation contraindicated per cardiology > ICD Presence of combination internal cardiac defibrillator (ICD) and pacemaker follows w/ Dr. Sanford > [employer] > gets checked electronically > PMH provided by , ure when last checked in office. Tachy-lorna syndrome S/p dual chamber pacer with upgrade to pacer/ICD 2014 Type II diabetes mellitus NIDDM Surgical History History of cardiac cath 1999 --> CABG 2014 - 1 stent - [facility] History of cataract surgery bilat History of colonoscopy History of esophagogastroduodenoscopy (EGD) History of prostate surgery non cancerous History of tonsillectomy History of tooth extraction S/P CABG x 3 1999 S/P coronary artery stent placement July 2014 with stenting of the proximal circumflex Family History Grandmother Diabetes Mother Colon cancer Other Melanoma No family history of adverse response to anesthesia Social History Smoking Status: Unknown if ever smoked Second Hand Exposure: No; Hx Alcohol Use: No (unknown) Preferred Language: Nigerien Communication Ability: Effective Accounts Collector Required: Voice Beliefs That Will Affect Care: None marital status: Current Living Situation: Spouse Other Information That Helps Us Care for You: No Feels Safe at Home: Yes Safety Concerns: Feels Safe At This Time Assistive Devices: Glasses, Hearing Aid - Bilateral and Oxygen - at Night Review of Systems Review of Systems: ROS was limited 2/2 dementia. See HPI above. Physical Exam Physical Exam: CONSTITUTIONAL: WNWD, vitals as above, generally ill- appearing, NAD EYES: normal conjunctivae, no scleral icterus, ENT: external ear and nose normal NECK: trachea midline, RESPIRATORY: some expiratory wheezing thorughout, no crackles or rales, normal respiratory effort CARDIOVASCULAR: regular rate and rhythm, S1 and 2 heard without murmurs, gallops or rubs, no JVD, no peripheral edema, CHEST: inspection of chest was normal GASTROINTESTINAL: soft, nontender,ND, no guarding MUSCULOSKELETAL: strength 5/5 throughout, head is normocephalic and atraumatic SKIN: warm and dry NEUROLOGIC: CN 2-12 grossly intact, no sensory deficit, normal cognition, normal speech, no tremor PSYCHIATRIC: alert cooperative and oriented to person and place. Results & Data Results & Data ([facility]) Vital Signs (Past 12 Hours) Vital Signs Temp Pulse Resp BP Pulse Ox O2 Del Method O2 Flow Rate 04/20/22 20:00 70 24 149/76 H 96 04/20/22 19:31 70 24 155/68 H 97 04/20/22 18:47 38.0 C H 83 20 158/94 H 97 Nasal Cannula 2 Laboratory Results Short CBC 04/20/22 Range/Units 19:01 WBC 6.71 (4.8-10.8) K/ul Hgb 7.9 L (14.0-18.0) g/dl Hct 24.8 L (40.1-51.0) % Plt Count 145 (130-400) K/uL BMP 04/20/22 19:01 Sodium 138 Potassium 3.8 Chloride 98 Carbon Dioxide 24 BUN 36 H Creatinine 1.54 H Glucose 129 H Calcium 8.2 L Liver Function 04/20/22 Range/Units 19:01 Total Bilirubin 0.6 (0.2-1.0) mg/dl Direct Bilirubin 0.2 (0-0.2) mg/dl AST 21 (13-39) U/L ALT 15 (7-52) U/L Alkaline Phosphatase 52 (34-104) U/L Albumin 2.8 L (3.4-5.0) gm/dl Urine 04/20/22 Range/Units 19:01 Urine Color Yellow Urine Appearance Cloudy A (Clear) Urine pH 5.0 (4.5-7.5) Ur Specific Anderson 1.011 (1.000-1.030) Urine Protein 1+ H (Negative) Urine Glucose (UA) Negative (Negative) Diagnostic Findings Chest X-Ray 04/20/22 18:45 SINGLE VIEW CHEST CLINICAL HISTORY: Sepsis. FINDINGS: An AP, portable, upright chest radiograph is compared to study dated 1 . The patient is status post midline sternotomy. A multilead cardiac AICD is unchanged in position and partially obscures the left upper chest. The heart is enlarged noting atherosclerotic calcification of the thoracic aorta. There is mild pulmonary vascular congestion. A calcified granuloma is noted in the left upper lobe. Chronic interstitial thickening is similar to previous. The lungs and pleural spaces are clear noting mild bibasilar atelectasis. No pneumothorax is seen. The skeletal structures are osteopenic. The bony thorax is grossly intact. IMPRESSION: 1. Cardiomegaly and AICD with mild pulmonary vascular congestion. 2. No airspace consolidation or large pleural effusion is identified. ACT 112: Negative or not required by law. Electronically signed by: Troy oWod M.D. 04/20/2022 8:20 PM Code Status & VTE Plan VTE Prophylaxis Plan VTE Prophylaxis will be ordered: Yes
--- NOTE | 2022-04-20 20:22 | XRay Report ---
SINGLE VIEW CHEST CLINICAL HISTORY: Sepsis. FINDINGS: An AP, portable, upright chest radiograph is compared to study dated 07/21/2021. The patien t is status post midline sternotomy. A multilead cardiac AICD is unchanged in position and partially obscures the left upper chest. The heart is enlarged noting atherosclerotic calcification of the thor acic aorta. There is mild pulmonary vascular congestion. A calcified granuloma is noted in the left u pper lobe. Chronic interstitial thickening is similar to previous. The lungs and pleural spaces are c lear noting mild bibasilar atelectasis. No pneumothorax is seen. The skeletal structures are osteopen ic. The bony thorax is grossly intact. IMPRESSION: 1. Cardiomegaly and AICD with mild pulmonary vascular congestion. 2. No airspace consolidation or large pleural effusion is identified. ACT 112: Negative or not required by law. Electronically signed by: Troy Wood M.D. 04/20/2022 8:20 PM
[2022-04-20] MEDS ORDERED: GLUCOSE 40% GEL 15 GM TUBE PO PRN (22:10)
[2022-04-20] MEDS ORDERED: GLUCOSE 10 TAB/TUBE PO PRN (22:10)
[2022-04-20] MEDS ORDERED: GLUCAGON FOR INJ 1 MG VIAL SQ PRN (22:10)
[2022-04-20] MEDS ORDERED: DEXTROSE 50% 50 ML SYRINGE IV PRN (22:10)
[2022-04-20] MEDS ORDERED: CARBOHYDRATES FOR HYPOGLYCEMIA PO PRN (22:10)
[2022-04-20] MEDS: SODIUM CHLORIDE 0.9% 1000ML 1,000 ML IV SCH (22:24)
[2022-04-20] MEDS: LATANOPROST 0.005% OP SOLN 2.5 ML BTL OPB SCH (23:13)
[2022-04-21] MEDS: SODIUM CHLORIDE 0.9% 1000ML 1,000 ML IV SCH ×3 (04:17→19:45)
[2022-04-21] MEDS: MAGNESIUM SULFATE / D5W 1 GM/100 ML BAG IV SCH ×2 (06:22→09:00)
[2022-04-21 06:49] LABS: Hematocrit (blood only) 22.4 % (40.1-51.0); Hemoglobin 7.1 g/dl (14.0-18.0); Mean Corpuscular Hemoglobin 31.3 pg (25.0-34.0); Mean Corpuscular Hgb Conc 31.7 g/dL (32.0-36.0); Mean Corpuscular Volume 98.7 fL (80.0-100.0); Mean Platelet Volume 10.3 fL (9.4-12.4); Platelet Count 133 K/uL (130-400); RDW Coefficient of Variation 15.6 % (11.5-14.5); RDW Standard Deviation 56.3 fL (36.4-46.3); Red Blood Count 2.27 M/uL (4.63-6.08); White Blood Count 7.25 K/ul (4.8-10.8)
[2022-04-21 07:09] LABS: Estimated Average Glucose 146 mg/dl; Hemoglobin A1C 6.7 % (4.5-5.6)
[2022-04-21 07:23] LABS: BUN Creatinine Ratio 26.3 (10-20); Calcium 7.9 mg/dl (8.5-10.1); Creatinine Clr Calc Pharmacy 40.9 ml/min; Est GFR (Non-African American) 45.7 ml/min; Potassium 3.8 mmol/L (3.5-5.1)
[2022-04-21] MEDS: ALBUT/IPRATROP 3MG/0.5MG NEB 3 ML VIAL NEB SCH ×4 (07:54→19:58)
[2022-04-21] MEDS: METOPROLOL SUCC 50MG EXT REL TAB PO SCH (08:59)
[2022-04-21] MEDS: CLOPIDOGREL BISULFATE 75 MG TAB PO SCH (08:59)
[2022-04-21] MEDS: PANTOprazole 40 MG TAB PO SCH (08:59)
[2022-04-21] MEDS: LOSARTAN POTASSIUM 50 MG TAB PO SCH (08:59)
[2022-04-21] MEDS: INSULIN ASPART PER UNIT SC SCH ×4 (09:00→20:51)
[2022-04-21] MEDS: LANTUS PER UNIT CHARGE SQ SCH ×2 (09:19→20:50)
--- NOTE | 2022-04-21 16:48 | Hospitalist Progress Note ---
Date of Service April 21, 2022 Assessment & Plan (1) Sepsis: Plan: IV fluid resuscitation in ER with improvement in lactate. Continue on broad-spectrum cefepime at this time pending clinical improvement and culture results. (2) Acute UTI: Plan: Cefepime Follow final urine culture (3) Persistent atrial fibrillation: Plan: Chronic atrial fibrillation with contraindications to anticoagulation per outpatient cardiology notes. Continue digoxin per home regimen. (4) S/P coronary artery stent placement: Plan: Chronic, stable. Elevated troponin likely secondary to demand ischemia in setting of sepsis. Echo was ordered to ensure no acute wall motion abnormalities. Continue current home regimen Echo Normal LV chamber size with mild concentric LVH. Normal LV systolic function with abnormal septal wall motion consistent with pacemaker activation, otherwise normal wall motion. EF 55 to 60%. Grade 1 diastolic dysfunction. Aortic valve sclerosis mild, without significant aortic valvular stenosis. Moderate aortic regurg. Calcified mitral apparatus. There is moderate mitral regurg. There is mild mitral stenosis. Moderate tricuspid regurg. (5) Type II diabetes mellitus: Plan: A1c 6.7%, well controlled Hold home metformin sliding scale insulin (6) HTN (hypertension): Plan: Chronic, around goal. Continue current medication. 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 Continue to renally dose meds and avoid nephrotoxic substances. (8) Dementia: Plan: High risk for delirium in the hospital and this was explained to the family. Continue good day night cycles and reorient as necessary. Continue donepezil per home regimen. (9) DVT prophylaxis: Plan: Lovenox Full code Disposition-admitted to medicine Admission and Anticipated Discharge Date Admission Date: April 20, 2022 Subjective Patient seen in follow-up of sepsis secondary to UTI Sitting up in bed, in no acute distress Very hard of hearing, communicated via writing. However even after patient reads my questions, he barely answers, mostly gives me a sign thumb up. Currently denies any complaints. Reports feeling okay. Review of Systems Review of Systems: All systems reviewed & are unremarkable except as noted in Subjective and Unobtainable due to cognitive status Physical Exam Physical Exam: CONSTITUTIONAL: WNWD, generally ill-appearing, NAD EYES: normal conjunctivae, no scleral icterus, ENT: external ear and nose normal NECK:supple RESPIRATORY: normal respiratory effort, some minimal wheezes otherwise CTAB CARDIOVASCULAR: regular rate and rhythm, S1 and 2 heard without murmurs, no peripheral edema CHEST: inspection of chest normal GASTROINTESTINAL: soft, nontender,ND, no guarding MUSCULOSKELETAL: head is normocephalic and atraumatic, moves extremities SKIN: warm and dry NEUROLOGIC:Awake, hard of hearing. Able to answer simple questions appropriately. Communicated mostly via writing. Gives a very short answers, or thumbs up. Results & Data Results & Data ([facility]) Vital Signs (Past 12 Hours) Vital Signs Temp Pulse Pulse Resp BP BP Pulse Ox 04/21/22 15:27 70 04/21/22 15:16 74 18 94 04/21/22 11:42 37 C 71 18 154/72 H 98 04/21/22 11:23 70 18 97 04/21/22 09:51 70 04/21/22 07:55 69 18 177/78 H 98 04/21/22 07:54 70 16 99 O2 Del Method O2 Flow Rate 04/21/22 15:27 04/21/22 15:16 Nasal Cannula 2 04/21/22 11:42 Nasal Cannula 1 04/21/22 11:23 Nasal Cannula 04/21/22 09:51 04/21/22 07:55 Nasal Cannula 2 04/21/22 07:54 Nasal Cannula 2 Laboratory Results 04/21/22 04/21/22 04/21/22 Range/Units 16:27 11:18 07:36 WBC (4.8-10.8) K/ul RBC (4.63-6.08) M/uL Hgb (14.0-18.0) g/dl Hct (40.1-51.0) % MCV (80.0-100.0) fL MCH (25.0-34.0) pg MCHC (32.0-36.0) g/dL RDW Std Deviation (36.4-46.3) fL RDW Coeff of Maricarmen (11.5-14.5) % Plt Count (130-400) K/uL MPV (9.4-12.4) fL Immature Gran % (Auto) % Neut % (Auto) % Lymph % (Auto) % [place] % (Auto) % Eos % (Auto) % Baso % (Auto) % Neut # (Auto) (1.4-6.5) K/uL Lymph # (Auto) (1.2-3.4) K/uL [place] # (Auto) (0.24-0.82) K/uL Eos # (Auto) (0-0.50) K/uL Baso # (Auto) (0-0.2) K/uL Immature Gran # (Auto) (0.00-0.02) K/uL Tear Drop Cells PT (9.0-12.0) Seconds INR (0.9-1.1) VBG pH (7.36-7.41) VBG pCO2 (38-50) mmHg VBG pO2 mmHg VBG HCO3 mmol/L VBG O2 Saturation % VBG Base Excess mEq/L Sodium (136-145) mmol/L Potassium (3.5-5.1) mmol/L Chloride (98-107) mmol/L Carbon Dioxide (21-32) mmol/L Anion Gap (3-11) BUN (6-23) mg/dl Creatinine (0.6-1.4) mg/dl Est Cr Clr Drug Dosing ml/min Est GFR ( Amer) ml/min Est GFR (Non-Af Amer) ml/min BUN/Creatinine Ratio (10-20) Glucose (70-99(Fasting)) mg/dl POC Glucose 149 H 143 H 140 H (70-99) mg/dl Estimat Average Glucose mg/dl Hemoglobin A1c (4.5-5.6) % Lactate (0.4-2.0) mmol/L Calcium (8.5-10.1) mg/dl Magnesium (1.7-2.4) mg/dl Total Bilirubin (0.2-1.0) mg/dl Direct Bilirubin (0-0.2) mg/dl AST (13-39) U/L ALT (7-52) U/L Alkaline Phosphatase (34-104) U/L Troponin I High Sens (0-20) pg/ml Total Protein (6.0-8.3) gm/dl Albumin (3.4-5.0) gm/dl Lipase (11-82) U/L Procalcitonin (0-0.5) ng/ml Urine Color Urine Appearance (Clear) Urine pH (4.5-7.5) Ur Specific [place] (1.000-1.030) Urine Protein (Negative) Urine Glucose (UA) (Negative) Urine Ketones (Negative) Urine Blood (Negative) Urine Nitrite (Negative) Urine Bilirubin (Negative) Urine Urobilinogen (Negative) Ur Leukocyte Esterase (Negative) Urine WBC (Auto) (0-5) /hpf Urine RBC (Auto) (0-4) /hpf U Hyaline Cast (Auto) (0-5) /lpf U Epithel Cells (Auto) (0-5) /lpf Urine Bacteria (Auto) (Negative) SARS-CoV-2, RNA, NAAT (NEGATIVE) 04/21/22 04/21/22 04/21/22 Range/Units 06:32 06:32 06:32 WBC 7.25 (4.8-10.8) K/ul RBC 2.27 L (4.63-6.08) M/uL Hgb 7.1 L (14.0-18.0) g/dl Hct 22.4 L (40.1-51.0) % MCV 98.7 (80.0-100.0) fL MCH 31.3 (25.0-34.0) pg MCHC 31.7 L (32.0-36.0) g/dL RDW Std Deviation 56.3 H (36.4-46.3) fL RDW Coeff of [place]en 15.6 H (11.5-14.5) % Plt Count 133 (130-400) K/uL MPV 10.3 (9.4-12.4) fL Immature Gran % (Auto) % Neut % (Auto) % Lymph % (Auto) % [place] % (Auto) % Eos % (Auto) % Baso % (Auto) % Neut # (Auto) (1.4-6.5) K/uL Lymph # (Auto) (1.2-3.4) K/uL [place] # (Auto) (0.24-0.82) K/uL Eos # (Auto) (0-0.50) K/uL Baso # (Auto) (0-0.2) K/uL Immature Gran # (Auto) (0.00-0.02) K/uL Tear Drop Cells PT (9.0-12.0) Seconds INR (0.9-1.1) VBG pH (7.36-7.41) VBG pCO2 (38-50) mmHg VBG pO2 mmHg VBG HCO3 mmol/L VBG O2 Saturation % VBG Base Excess mEq/L Sodium 140 (136-145) mmol/L Potassium 3.8 (3.5-5.1) mmol/L Chloride 103 (98-107) mmol/L Carbon Dioxide 25 (21-32) mmol/L Anion Gap 12 H (3-11) BUN 36 H (6-23) mg/dl Creatinine 1.37 (0.6-1.4) mg/dl Est Cr Clr Drug Dosing 40.9 ml/min Est GFR ( Amer) 53.0 ml/min Est GFR (Non-Af Amer) 45.7 ml/min BUN/Creatinine Ratio 26.3 H (10-20) Glucose 127 H (70-99(Fasting)) mg/dl POC Glucose (70-99) mg/dl Estimat Average Glucose 146 mg/dl Hemoglobin A1c 6.7 H (4.5-5.6) % Lactate (0.4-2.0) mmol/L Calcium 7.9 L (8.5-10.1) mg/dl Magnesium (1.7-2.4) mg/dl Total Bilirubin (0.2-1.0) mg/dl Direct Bilirubin (0-0.2) mg/dl AST (13-39) U/L ALT (7-52) U/L Alkaline Phosphatase (34-104) U/L Troponin I High Sens (0-20) pg/ml Total Protein (6.0-8.3) gm/dl Albumin (3.4-5.0) gm/dl Lipase (11-82) U/L Procalcitonin (0-0.5) ng/ml Urine Color Urine Appearance (Clear) Urine pH (4.5-7.5) Ur Specific [place] (1.000-1.030) Urine Protein (Negative) Urine Glucose (UA) (Negative) Urine Ketones (Negative) Urine Blood (Negative) Urine Nitrite (Negative) Urine Bilirubin (Negative) Urine Urobilinogen (Negative) Ur Leukocyte Esterase (Negative) Urine WBC (Auto) (0-5) /hpf Urine RBC (Auto) (0-4) /hpf U Hyaline Cast (Auto) (0-5) /lpf U Epithel Cells (Auto) (0-5) /lpf Urine Bacteria (Auto) (Negative) SARS-CoV-2, RNA, NAAT (NEGATIVE) 04/20/22 04/20/22 04/20/22 Range/Units 20:46 20:46 19:32 WBC (4.8-10.8) K/ul RBC (4.63-6.08) M/uL Hgb (14.0-18.0) g/dl Hct (40.1-51.0) % MCV (80.0-100.0) fL MCH (25.0-34.0) pg MCHC (32.0-36.0) g/dL RDW Std Deviation (36.4-46.3) fL RDW Coeff of Mar[place]en (11.5-14.5) % Plt Count (130-400) K/uL MPV (9.4-12.4) fL Immature Gran % (Auto) % Neut % (Auto) % Lymph % (Auto) % [place] % (Auto) % Eos % (Auto) % Baso % (Auto) % Neut # (Auto) (1.4-6.5) K/uL Lymph # (Auto) (1.2-3.4) K/uL [place] # (Auto) (0.24-0.82) K/uL Eos # (Auto) (0-0.50) K/uL Baso # (Auto) (0-0.2) K/uL Immature Gran # (Auto) (0.00-0.02) K/uL Tear Drop Cells PT (9.0-12.0) Seconds INR (0.9-1.1) VBG pH (7.36-7.41) VBG pCO2 (38-50) mmHg VBG pO2 mmHg VBG HCO3 mmol/L VBG O2 Saturation % VBG Base Excess mEq/L Sodium (136-145) mmol/L Potassium (3.5-5.1) mmol/L Chloride (98-107) mmol/L Carbon Dioxide (21-32) mmol/L Anion Gap (3-11) BUN (6-23) mg/dl Creatinine (0.6-1.4) mg/dl Est Cr Clr Drug Dosing ml/min Est GFR ( Amer) ml/min Est GFR (Non-Af Amer) ml/min BUN/Creatinine Ratio (10-20) Glucose (70-99(Fasting)) mg/dl POC Glucose (70-99) mg/dl Estimat Average Glucose mg/dl Hemoglobin A1c (4.5-5.6) % Lactate 1.9 (0.4-2.0) mmol/L Calcium (8.5-10.1) mg/dl Magnesium (1.7-2.4) mg/dl Total Bilirubin (0.2-1.0) mg/dl Direct Bilirubin (0-0.2) mg/dl AST (13-39) U/L ALT (7-52) U/L Alkaline Phosphatase (34-104) U/L Troponin I High Sens 57.8 H* (0-20) pg/ml Total Protein (6.0-8.3) gm/dl Albumin (3.4-5.0) gm/dl Lipase (11-82) U/L Procalcitonin (0-0.5) ng/ml Urine Color Urine Appearance (Clear) Urine pH (4.5-7.5) Ur Specific [place] (1.000-1.030) Urine Protein (Negative) Urine Glucose (UA) (Negative) Urine Ketones (Negative) Urine Blood (Negative) Urine Nitrite (Negative) Urine Bilirubin (Negative) Urine Urobilinogen (Negative) Ur Leukocyte Esterase (Negative) Urine WBC (Auto) (0-5) /hpf Urine RBC (Auto) (0-4) /hpf U Hyaline Cast (Auto) (0-5) /lpf U Epithel Cells (Auto) (0-5) /lpf Urine Bacteria (Auto) (Negative) SARS-CoV-2, RNA, NAAT NEGATIVE (NEGATIVE) 04/20/22 04/20/22 04/20/22 Range/Units 19:27 19:01 19:01 WBC (4.8-10.8) K/ul RBC (4.63-6.08) M/uL Hgb (14.0-18.0) g/dl Hct (40.1-51.0) % MCV (80.0-100.0) fL MCH (25.0-34.0) pg MCHC (32.0-36.0) g/dL RDW Std Deviation (36.4-46.3) fL RDW Coeff of Mar[place]en (11.5-14.5) % Plt Count (130-400) K/uL MPV (9.4-12.4) fL Immature Gran % (Auto) % Neut % (Auto) % Lymph % (Auto) % [place] % (Auto) % Eos % (Auto) % Baso % (Auto) % Neut # (Auto) (1.4-6.5) K/uL Lymph # (Auto) (1.2-3.4) K/uL [place] # (Auto) (0.24-0.82) K/uL Eos # (Auto) (0-0.50) K/uL Baso # (Auto) (0-0.2) K/uL Immature Gran # (Auto) (0.00-0.02) K/uL Tear Drop Cells PT (9.0-12.0) Seconds INR (0.9-1.1) VBG pH 7.51 H (7.36-7.41) VBG pCO2 35 L (38-50) mmHg VBG pO2 64 mmHg VBG HCO3 28 mmol/L VBG O2 Saturation 93.2 % VBG Base Excess 4.9 mEq/L Sodium (136-145) mmol/L Potassium (3.5-5.1) mmol/L Chloride (98-107) mmol/L Carbon Dioxide (21-32) mmol/L Anion Gap (3-11) BUN (6-23) mg/dl Creatinine (0.6-1.4) mg/dl Est Cr Clr Drug Dosing ml/min Est GFR ( Amer) ml/min Est GFR (Non-Af Amer) ml/min BUN/Creatinine Ratio (10-20) Glucose (70-99(Fasting)) mg/dl POC Glucose (70-99) mg/dl Estimat Average Glucose mg/dl Hemoglobin A1c (4.5-5.6) % Lactate (0.4-2.0) mmol/L Calcium (8.5-10.1) mg/dl Magnesium (1.7-2.4) mg/dl Total Bilirubin (0.2-1.0) mg/dl Direct Bilirubin (0-0.2) mg/dl AST (13-39) U/L ALT (7-52) U/L Alkaline Phosphatase (34-104) U/L Troponin I High Sens (0-20) pg/ml Total Protein (6.0-8.3) gm/dl Albumin (3.4-5.0) gm/dl Lipase (11-82) U/L Procalcitonin 5.47 H (0-0.5) ng/ml Urine Color Yellow Urine Appearance Cloudy A (Clear) Urine pH 5.0 (4.5-7.5) Ur Specific [place] 1.011 (1.000-1.030) Urine Protein 1+ H (Negative) Urine Glucose (UA) Negative (Negative) Urine Ketones Negative (Negative) Urine Blood 2+ H (Negative) Urine Nitrite Negative (Negative) Urine Bilirubin Negative (Negative) Urine Urobilinogen Negative (Negative) Ur Leukocyte Esterase 3+ H (Negative) Urine WBC (Auto) >30 H (0-5) /hpf Urine RBC (Auto) 5-10 H (0-4) /hpf U Hyaline Cast (Auto) 1-5 (0-5) /lpf U Epithel Cells (Auto) 0-5 (0-5) /lpf Urine Bacteria (Auto) 2+ H (Negative) SARS-CoV-2, RNA, NAAT (NEGATIVE) 04/20/22 04/20/22 04/20/22 Range/Units 19:01 19:01 19:01 WBC 6.71 (4.8-10.8) K/ul RBC 2.51 L (4.63-6.08) M/uL Hgb 7.9 L (14.0-18.0) g/dl Hct 24.8 L (40.1-51.0) % MCV 98.8 (80.0-100.0) fL MCH 31.5 (25.0-34.0) pg MCHC 31.9 L (32.0-36.0) g/dL RDW Std Deviation 55.9 H (36.4-46.3) fL RDW Coeff of [place] 15.7 H (11.5-14.5) % Plt Count 145 (130-400) K/uL MPV 10.0 (9.4-12.4) fL Immature Gran % (Auto) 0.3 % Neut % (Auto) 78.7 % Lymph % (Auto) 6.6 % [place] % (Auto) 14.3 % Eos % (Auto) 0.0 % Baso % (Auto) 0.1 % Neut # (Auto) 5.28 (1.4-6.5) K/uL Lymph # (Auto) 0.44 L (1.2-3.4) K/uL [place] # (Auto) 0.96 H (0.24-0.82) K/uL Eos # (Auto) 0.00 (0-0.50) K/uL Baso # (Auto) 0.01 (0-0.2) K/uL Immature Gran # (Auto) 0.02 (0.00-0.02) K/uL Tear Drop Cells 1+ PT 12.8 H (9.0-12.0) Seconds INR 1.2 H (0.9-1.1) VBG pH (7.36-7.41) VBG pCO2 (38-50) mmHg VBG pO2 mmHg VBG HCO3 mmol/L VBG O2 Saturation % VBG Base Excess mEq/L Sodium 138 (136-145) mmol/L Potassium 3.8 (3.5-5.1) mmol/L Chloride 98 (98-107) mmol/L Carbon Dioxide 24 (21-32) mmol/L Anion Gap 16 H (3-11) BUN 36 H (6-23) mg/dl Creatinine 1.54 H (0.6-1.4) mg/dl Est Cr Clr Drug Dosing 36.4 ml/min Est GFR ( Amer) 46.0 ml/min Est GFR (Non-Af Amer) 39.7 ml/min BUN/Creatinine Ratio 23.4 H (10-20) Glucose 129 H (70-99(Fasting)) mg/dl POC Glucose (70-99) mg/dl Estimat Average Glucose mg/dl Hemoglobin A1c (4.5-5.6) % Lactate (0.4-2.0) mmol/L Calcium 8.2 L (8.5-10.1) mg/dl Magnesium 1.5 L (1.7-2.4) mg/dl Total Bilirubin 0.6 (0.2-1.0) mg/dl Direct Bilirubin 0.2 (0-0.2) mg/dl AST 21 (13-39) U/L ALT 15 (7-52) U/L Alkaline Phosphatase 52 (34-104) U/L Troponin I High Sens 54.4 H* (0-20) pg/ml Total Protein 7.8 (6.0-8.3) gm/dl Albumin 2.8 L (3.4-5.0) gm/dl Lipase 7 L (11-82) U/L Procalcitonin (0-0.5) ng/ml Urine Color Urine Appearance (Clear) Urine pH (4.5-7.5) Ur Specific [place] (1.000-1.030) Urine Protein (Negative) Urine Glucose (UA) (Negative) Urine Ketones (Negative) Urine Blood (Negative) Urine Nitrite (Negative) Urine Bilirubin (Negative) Urine Urobilinogen (Negative) Ur Leukocyte Esterase (Negative) Urine WBC (Auto) (0-5) /hpf Urine RBC (Auto) (0-4) /hpf U Hyaline Cast (Auto) (0-5) /lpf U Epithel Cells (Auto) (0-5) /lpf Urine Bacteria (Auto) (Negative) SARS-CoV-2, RNA, NAAT (NEGATIVE) 04/20/22 Range/Units 19:01 WBC (4.8-10.8) K/ul RBC (4.63-6.08) M/uL Hgb (14.0-18.0) g/dl Hct (40.1-51.0) % MCV (80.0-100.0) fL MCH (25.0-34.0) pg MCHC (32.0-36.0) g/dL RDW Std Deviation (36.4-46.3) fL RDW Coeff of [place] (11.5-14.5) % Plt Count (130-400) K/uL MPV (9.4-12.4) fL Immature Gran % (Auto) % Neut % (Auto) % Lymph % (Auto) % [place] % (Auto) % Eos % (Auto) % Baso % (Auto) % Neut # (Auto) (1.4-6.5) K/uL Lymph # (Auto) (1.2-3.4) K/uL [place] # (Auto) (0.24-0.82) K/uL Eos # (Auto) (0-0.50) K/uL Baso # (Auto) (0-0.2) K/uL Immature Gran # (Auto) (0.00-0.02) K/uL Tear Drop Cells PT (9.0-12.0) Seconds INR (0.9-1.1) VBG pH (7.36-7.41) VBG pCO2 (38-50) mmHg VBG pO2 mmHg VBG HCO3 mmol/L VBG O2 Saturation % VBG Base Excess mEq/L Sodium (136-145) mmol/L Potassium (3.5-5.1) mmol/L Chloride (98-107) mmol/L Carbon Dioxide (21-32) mmol/L Anion Gap (3-11) BUN (6-23) mg/dl Creatinine (0.6-1.4) mg/dl Est Cr Clr Drug Dosing ml/min Est GFR ( Amer) ml/min Est GFR (Non-Af Amer) ml/min BUN/Creatinine Ratio (10-20) Glucose (70-99(Fasting)) mg/dl POC Glucose (70-99) mg/dl Estimat Average Glucose mg/dl Hemoglobin A1c (4.5-5.6) % Lactate 2.9 H* (0.4-2.0) mmol/L Calcium (8.5-10.1) mg/dl Magnesium (1.7-2.4) mg/dl Total Bilirubin (0.2-1.0) mg/dl Direct Bilirubin (0-0.2) mg/dl AST (13-39) U/L ALT (7-52) U/L Alkaline Phosphatase (34-104) U/L Troponin I High Sens (0-20) pg/ml Total Protein (6.0-8.3) gm/dl Albumin (3.4-5.0) gm/dl Lipase (11-82) U/L Procalcitonin (0-0.5) ng/ml Urine Color Urine Appearance (Clear) Urine pH (4.5-7.5) Ur Specific [place] (1.000-1.030) Urine Protein (Negative) Urine Glucose (UA) (Negative) Urine Ketones (Negative) Urine Blood (Negative) Urine Nitrite (Negative) Urine Bilirubin (Negative) Urine Urobilinogen (Negative) Ur Leukocyte Esterase (Negative) Urine WBC (Auto) (0-5) /hpf Urine RBC (Auto) (0-4) /hpf U Hyaline Cast (Auto) (0-5) /lpf U Epithel Cells (Auto) (0-5) /lpf Urine Bacteria (Auto) (Negative) SARS-CoV-2, RNA, NAAT (NEGATIVE) Medications Administered Current Inpatient Medications Acetaminophen (Acetaminophen 325 Mg Tab) 650 mg PO Q4H PRN PRN Reason: Pain or Fever Stop: 05/20/22 22:09 Albuterol (Albut/Ipratrop 3mg/0.5mg Neb 3 Ml Vial) 3 ml NEB QIDR ALIN; Protocol Stop: 05/21/22 06:59 Last Admin: 04/21/22 15:14 Dose: 3 ml Clopidogrel Bisulfate (Clopidogrel Bisulfate 75 Mg Tab) 75 mg PO QAM [facility] Stop: 05/21/22 08:59 Last Admin: 04/21/22 08:59 Dose: 75 mg Dextrose (Dextrose 50% 50 Ml Syringe) 25 - 50 ml IV UD PRN; Protocol PRN Reason: Hypoglycemia Protocol Stop: 05/20/22 22:09 Digoxin (Digoxin 0.125 Mg Tab) 0.125 mg PO [id number] [facility] Stop: 05/22/22 15:59 Donepezil HCl (Donepezil Hcl 10 Mg Tab) 10 mg PO QDD [facility] Stop: 05/21/22 16:29 Glucagon (Glucagon For Inj 1 Mg Vial) 1 mg SQ UD PRN; Protocol PRN Reason: Hypoglycemia Protocol Stop: 05/20/22 22:09 Glucose (Glucose 40% Gel 15 Gm Tube) 15 - 30 gm PO UD PRN; Protocol PRN Reason: Hypoglycemia Protocol Stop: 05/20/22 22:09 Glucose (Glucose 10 Tab/Tube) 4 - 8 tab PO UD PRN; Protocol PRN Reason: Hypoglycemia Treatment Stop: 05/20/22 22:09 Sodium Chloride (Nss 1000ml) 1,000 mls @ 125 mls/hr IV .Q8H [facility] Stop: 05/20/22 19:44 Last Admin: 04/21/22 12:03 Dose: 125 mls/hr Cefepime HCl 2,000 mg/ Syringe 20 mls @ 5 mls/min IV Q24H [facility]; Protocol Stop: 05/01/22 19:59 Insulin Aspart (Insulin Aspart Per Unit) 0 units SC ACHS [facility] Stop: 05/21/22 07:29 Last Admin: 04/21/22 12:12 Dose: 5 units Insulin Glargine (Lantus Per Unit Charge) 15 units SQ BID ALIN Stop: 05/21/22 08:59 Last Admin: 04/21/22 09:19 Dose: 15 units Latanoprost (Latanoprost 0.005% Op Soln 2.5 Ml Btl) 1 drops OPB PM ALIN Stop: 05/20/22 22:09 Last Admin: 04/20/22 23:13 Dose: 1 drops Losartan Potassium (Losartan Potassium 50 Mg Tab) 50 mg PO QAM [facility] Stop: 05/21/22 08:59 Last Admin: 04/21/22 08:59 Dose: 50 mg Magnesium Oxide (Magnesium Oxide 400 Mg Tab) 400 mg PO PM [facility] Stop: 05/21/22 20:59 Metoprolol Succinate (Metoprolol Succ 50mg Ext Rel Tab) [facility] [place] Stop: 05/21/22 08:59 Last Admin: 04/21/22 08:59 Dose: 50 mg Miscellaneous (Carbohydrates For Hypoglycemia ) 15 - 30 gm PO UD PRN PRN Reason: Hypoglycemia Protocol Stop: 05/20/22 22:09 Miscellaneous (Dutasteride 0.5 Mg - Order Awaiting Action) 1 each N/A QS [facility] Stop: 05/21/22 00:00 Last Admin: 04/21/22 09:57 Dose: Not Given Pantoprazole Sodium (Pantoprazole 40 Mg Tab) 40 mg PO QAM [facility] Stop: 05/21/22 08:59 Last Admin: 04/21/22 08:59 Dose: 40 mg Simvastatin (Simvastatin 20 Mg Tab) 20 mg PO QPM [facility] Stop: 05/21/22 20:59
[2022-04-21] MEDS: DONEPEZIL HCL 10 MG TAB PO SCH (17:56)
[2022-04-21] MEDS ORDERED: CEFEPIME 2,000 MG in SYRINGE 0 ML IV SCH (20:00)
[2022-04-21] MEDS: SIMVASTATIN 20 MG TAB PO SCH (20:56)
[2022-04-21] MEDS: LATANOPROST 0.005% OP SOLN 2.5 ML BTL OPB SCH (20:56)
[2022-04-21] MEDS: MAGNESIUM OXIDE 400 MG TAB PO SCH (20:57)
--- NOTE | 2022-04-21 21:46 | Electrocardiogram Report ---
Test Reason : Blood Pressure : / mmHG Vent. Rate : 089 BPM Atrial Rate : 091 BPM P-R Int : 000 ms QRS Dur : 150 ms QT Int : 406 ms P-R-T Axes : 000 234 021 degrees QTc Int : 493 ms Ventricular-paced rhythm Abnormal ECG When compared with ECG of 27-JUL-2021 00:18, Vent. rate has increased BY 4 BPM Confirmed by Ward Vanegas ([id number]) on 04/21/2022 9:46:22 PM Referred By: REFERRED SELF Confirmed By:Ward Vanegas
--- NOTE | 2022-04-21 22:56 | Electrocardiogram Report ---
Test Reason : Blood Pressure : / mmHG Vent. Rate : 072 BPM Atrial Rate : 081 BPM P-R Int : 000 ms QRS Dur : 160 ms QT Int : 428 ms P-R-T Axes : 000 228 010 degrees QTc Int : 468 ms Ventricular-paced rhythm Abnormal ECG When compared with ECG of 20-APR-2022 18:47, Vent. rate has decreased BY 17 BPM Confirmed by Ward Vanegas ([id number]) on 04/21/2022 10:55:49 PM Referred By: REFERRED SELF Confirmed By:Ward Vanegas
[2022-04-22] MEDS: SODIUM CHLORIDE 0.9% 1000ML 1,000 ML IV SCH ×3 (03:53→20:50)
[2022-04-22] MEDS: ALBUT/IPRATROP 3MG/0.5MG NEB 3 ML VIAL NEB SCH (07:17)
[2022-04-22] MEDS: LOSARTAN POTASSIUM 50 MG TAB PO SCH (09:00)
[2022-04-22] MEDS: CLOPIDOGREL BISULFATE 75 MG TAB PO SCH (09:00)
[2022-04-22] MEDS: METOPROLOL SUCC 50MG EXT REL TAB PO SCH (09:00)
[2022-04-22] MEDS: PANTOprazole 40 MG TAB PO SCH (09:00)
[2022-04-22] MEDS: INSULIN ASPART PER UNIT SC SCH ×4 (09:13→20:22)
[2022-04-22] MEDS: LANTUS PER UNIT CHARGE SQ SCH ×2 (09:14→20:23)
--- NOTE | 2022-04-22 11:27 | Electrocardiogram Report ---
Test Reason : Blood Pressure : / mmHG Vent. Rate : 071 BPM Atrial Rate : 078 BPM P-R Int : 000 ms QRS Dur : 132 ms QT Int : 410 ms P-R-T Axes : 000 223 031 degrees QTc Int : 445 ms Ventricular-paced rhythm Abnormal ECG When compared with ECG of 21-APR-2022 07:13, No significant change was found Confirmed by Michael Souza ([id number]) on 04/22/2022 11:27:10 AM Referred By: REFERRED SELF Confirmed By:Michael Souza
--- NOTE | 2022-04-22 14:39 | Hospitalist Progress Note ---
Date of Service April 22, 2022 Assessment & Plan (1) Sepsis: Plan: IV fluid resuscitation in ER with improvement in lactate. Continue on broad-spectrum cefepime at this time pending clinical improvement and culture results. Switch to ceftriaxone according to urine culture (2) Acute UTI: Plan: Cefepime started on admission urine culture -positive for E. coli, sensitive to ceftriaxone, will switch to ceftriaxone from cefepime (3) Persistent atrial fibrillation: Plan: Chronic atrial fibrillation with contraindications to anticoagulation per outpatient cardiology notes. Continue digoxin per home regimen. (4) S/P coronary artery stent placement: Plan: Chronic, stable. Elevated troponin likely secondary to demand ischemia in setting of sepsis. Echo was ordered to ensure no acute wall motion abnormalities. Continue current home regimen Echo Normal LV chamber size with mild concentric LVH. Normal LV systolic function with abnormal septal wall motion consistent with pacemaker activation, otherwise normal wall motion. EF 55 to 60%. Grade 1 diastolic dysfunction. Aortic valve sclerosis mild, without significant aortic valvular stenosis. Moderate aortic regurg. Calcified mitral apparatus. There is moderate mitral regurg. There is mild mitral stenosis. Moderate tricuspid regurg. Anemia -Currently sees Dr. Sykes, scheduled for IV iron infusion as outpatient -Previously diagnosed with peptic ulcer, repeat endoscopy in October showed resolution Continue PPI continue to monitor H&H -No signs of bleeding at this time -Continue home iron supplement (5) Type II diabetes mellitus: Plan: A1c 6.7%, well controlled Hold home metformin sliding scale insulin (6) HTN (hypertension): Plan: Chronic, around goal. Continue current medication. 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 Continue to renally dose meds and avoid nephrotoxic substances. (8) Dementia: Plan: High risk for delirium in the hospital and this was explained to the family. Continue good day night cycles and reorient as necessary. Continue donepezil per home regimen. (9) DVT prophylaxis: Plan: Lovenox Full code Disposition-admitted to medicine Admission and Anticipated Discharge Date Admission Date: April 20, 2022 Subjective Patient seen in follow-up of sepsis secondary to UTI Sitting up in bed, in no acute distress Very hard of hearing, communicated via writing. However even after patient reads my questions, he barely answers, mostly gives me a sign thumb up. Currently denies any complaints. Reports feeling okay. Patient's and daughter at the bedside and updated. They report patient does not speak much usually. Per RN, patient was up in chair. Antibiotics changed to ceftriaxone according to urine culture. Review of Systems Review of Systems: All systems reviewed & are unremarkable except as noted in Subjective Physical Exam Physical Exam: CONSTITUTIONAL: WNWD, generally ill-appearing, NAD EYES: normal conjunctivae, no scleral icterus, ENT: external ear and nose normal NECK:supple RESPIRATORY: normal respiratory effort, some minimal wheezes otherwise CTAB CARDIOVASCULAR: regular rate and rhythm, S1 and 2 heard without murmurs, no peripheral edema CHEST: inspection of chest normal GASTROINTESTINAL: soft, nontender,ND, no guarding MUSCULOSKELETAL: head is normocephalic and atraumatic, moves extremities SKIN: warm and dry NEUROLOGIC:Awake, hard of hearing. Able to answer simple questions appropriately. Communicated mostly via writing. Gives a very short answers, or thumbs up. Results & Data Results & Data ([facility]) Vital Signs (Past 12 Hours) Vital Signs Temp Pulse Resp BP BP Pulse Ox O2 Del Method 04/22/22 12:01 37.9 C H 78 18 131/62 95 Room Air 04/22/22 07:57 36.8 C 59 L 16 118/65 100 Nasal Cannula 04/22/22 07:17 70 20 98 Nasal Cannula 04/22/22 04:08 37.4 C 65 20 153/69 H 98 Nasal Cannula O2 Flow Rate 04/22/22 12:01 04/22/22 07:57 2 04/22/22 07:17 2 04/22/22 04:08 1.5 Medications Administered Current Inpatient Medications Acetaminophen (Acetaminophen 325 Mg Tab) 650 mg PO Q4H PRN PRN Reason: Pain or Fever Stop: 05/20/22 22:09 Albuterol (Albut/Ipratrop 3mg/0.5mg Neb 3 Ml Vial) 3 ml NEB QIDR PRN; Protocol PRN Reason: Shortness Of Breath Or Wheezing Stop: 05/21/22 06:59 Clopidogrel Bisulfate (Clopidogrel Bisulfate 75 Mg Tab) 75 mg PO QAM [facility] Stop: 05/21/22 08:59 Last Admin: 04/22/22 09:00 Dose: 75 mg Dextrose (Dextrose 50% 50 Ml Syringe) 25 - 50 ml IV UD PRN; Protocol PRN Reason: Hypoglycemia Protocol Stop: 05/20/22 22:09 Digoxin (Digoxin 0.125 Mg Tab) 0.125 mg PO [id number] [facility] Stop: 05/22/22 15:59 Donepezil HCl (Donepezil Hcl 10 Mg Tab) 10 mg PO QDD [facility] Stop: 05/21/22 16:29 Last Admin: 04/21/22 17:56 Dose: 10 mg Glucagon (Glucagon For Inj 1 Mg Vial) 1 mg SQ UD PRN; Protocol PRN Reason: Hypoglycemia Protocol Stop: 05/20/22 22:09 Glucose (Glucose 40% Gel 15 Gm Tube) 15 - 30 gm PO UD PRN; Protocol PRN Reason: Hypoglycemia Protocol Stop: 05/20/22 22:09 Glucose (Glucose 10 Tab/Tube) 4 - 8 tab PO UD PRN; Protocol PRN Reason: Hypoglycemia Treatment Stop: 05/20/22 22:09 Sodium Chloride (Nss 1000ml) 1,000 mls @ 125 mls/hr IV .Q8H [facility] Stop: 05/20/22 19:44 Last Admin: 04/22/22 12:55 Dose: 125 mls/hr Ceftriaxone Sodium 2,000 mg/ (Dextrose) 70 mls @ 140 mls/hr IV Q24H [facility]; Protocol Stop: 04/30/22 19:59 Insulin Aspart (Insulin Aspart Per Unit) 0 units SC ACHS [facility] Stop: 05/21/22 07:29 Last Admin: 04/22/22 13:09 Dose: 2 units Insulin Glargine (Lantus Per Unit Charge) 15 units SQ BID [facility] Stop: 05/21/22 08:59 Last Admin: 04/22/22 09:14 Dose: 15 units Latanoprost (Latanoprost 0.005% Op Soln 2.5 Ml Btl) 1 drops OPB PM [facility] Stop: 05/20/22 22:09 Last Admin: 04/21/22 20:56 Dose: 1 drops Losartan Potassium (Losartan Potassium 50 Mg Tab) 50 mg PO QAM [facility] Stop: 05/21/22 08:59 Last Admin: 04/22/22 09:00 Dose: 50 mg Magnesium Oxide (Magnesium Oxide 400 Mg Tab) 400 mg PO PM [facility] Stop: 05/21/22 20:59 Last Admin: 04/21/22 20:57 Dose: 400 mg Metoprolol Succinate (Metoprolol Succ 50mg Ext Rel Tab) 50 mg PO QAM [facility] Stop: 05/21/22 08:59 Last Admin: 04/22/22 09:00 Dose: 50 mg Miscellaneous (Carbohydrates For Hypoglycemia ) 15 - 30 gm PO UD PRN PRN Reason: Hypoglycemia Protocol Stop: 05/20/22 22:09 Miscellaneous (Dutasteride 0.5 Mg - Order Awaiting Action) 1 each N/A QS [facility] Stop: 05/21/22 00:00 Last Admin: 04/22/22 10:31 Dose: Not Given Pantoprazole Sodium (Pantoprazole 40 Mg Tab) 40 mg PO QAM [facility] Stop: 05/21/22 08:59 Last Admin: 04/22/22 09:00 Dose: 40 mg Simvastatin (Simvastatin 20 Mg Tab) 20 mg PO QPM [facility] Stop: 05/21/22 20:59 Last Admin: 04/21/22 20:56 Dose: 20 mg
[2022-04-22 15:13] LABS: Hematocrit (blood only) 22.3 % (40.1-51.0); Hemoglobin 7.1 g/dl (14.0-18.0); Mean Corpuscular Hemoglobin 31.6 pg (25.0-34.0); Mean Corpuscular Hgb Conc 31.8 g/dL (32.0-36.0); Mean Corpuscular Volume 99.1 fL (80.0-100.0); Mean Platelet Volume 10.5 fL (9.4-12.4); Platelet Count 168 K/uL (130-400); RDW Coefficient of Variation 16.1 % (11.5-14.5); RDW Standard Deviation 57.2 fL (36.4-46.3); Red Blood Count 2.25 M/uL (4.63-6.08); White Blood Count 7.31 K/ul (4.8-10.8)
[2022-04-22 16:00] LABS: BUN Creatinine Ratio 20.1 (10-20); Calcium 7.7 mg/dl (8.5-10.1); Creatinine Clr Calc Pharmacy 38.9 ml/min; Est GFR (African American) 49.9 ml/min; Magnesium 2.1 mg/dl (1.7-2.4); Phosphorus 2.4 mg/dl (2.5-4.9); Potassium 3.4 mmol/L (3.5-5.1)
[2022-04-22] MEDS: DONEPEZIL HCL 10 MG TAB PO SCH (17:09)
[2022-04-22] MEDS: DIGOXIN 0.125 MG TAB PO SCH (17:09)
[2022-04-22] MEDS: MAGNESIUM OXIDE 400 MG TAB PO SCH (20:01)
[2022-04-22] MEDS: SIMVASTATIN 20 MG TAB PO SCH (20:01)
[2022-04-22] MEDS: LATANOPROST 0.005% OP SOLN 2.5 ML BTL OPB SCH (20:01)
[2022-04-22] MEDS: cefTRIAXone SODIUM 2,000 MG in DEXTROSE 5% 50 ML IV SCH (20:12)
[2022-04-22] MEDS: ALBUT/IPRATROP 3MG/0.5MG NEB 3 ML VIAL NEB PRN (20:58)
[2022-04-22] MEDS ORDERED: POTASSIUM CHLORIDE CRTAB 20 MEQ TABCR PO STA (21:39)
[2022-04-22] MEDS ORDERED: FUROSEMIDE 40 MG/4 ML VIAL IV ONE (21:39)
--- NOTE | 2022-04-22 22:20 | XRay Report ---
SINGLE VIEW CHEST CLINICAL HISTORY: Dyspnea and wheezing. FINDINGS: An AP, portable, upright chest radiograph is compared to study dated 04/20/2022. The patient is status post midline sternotomy. A 3-lead cardiac AICD is unchanged in position and partially obsc ures the left upper chest. The heart is enlarged noting atherosclerotic calcification of the thoracic aorta. There is pulmonary vascular congestion. Mild airspace opacities are seen bilaterally. Scarrin g/atelectasis is noted at the lung bases. No large pleural effusion or pneumothorax is seen. The skel etal structures are osteopenic. The bony thorax is grossly intact. IMPRESSION: 1. Cardiomegaly and AICD with evidence of congestive failure. 2. Bilateral airspace opacities likely represent pulmonary edema. Correlate clinically for evidence o f a superimposed infectious/inflammatory pneumonitis. ACT 112: Negative or not required by law. Electronically signed by: Troy Wood M.D. 04/22/2022 10:19 PM
[2022-04-22] MEDS ORDERED: ALBUT/IPRATROP 3MG/0.5MG NEB 3 ML VIAL NEB SCH (23:00)
[2022-04-23 07:22] LABS: BUN Creatinine Ratio 20.7 (10-20); Calcium 7.4 mg/dl (8.5-10.1); Creatinine Clr Calc Pharmacy 38.7 ml/min; Est GFR (African American) 49.5 ml/min; Est GFR (Non-African American) 42.7 ml/min; Magnesium 1.9 mg/dl (1.7-2.4); Phosphorus 2.7 mg/dl (2.5-4.9); Potassium 3.5 mmol/L (3.5-5.1)
[2022-04-23 07:45] LABS: Hematocrit (blood only) 20.4 % (40.1-51.0); Hemoglobin 6.5 g/dl (14.0-18.0); Mean Corpuscular Hemoglobin 31.3 pg (25.0-34.0); Mean Corpuscular Hgb Conc 31.9 g/dL (32.0-36.0); Mean Corpuscular Volume 98.1 fL (80.0-100.0); Platelet Count 162 K/uL (130-400); RDW Standard Deviation 57.2 fL (36.4-46.3); Red Blood Count 2.08 M/uL (4.63-6.08); White Blood Count 4.39 K/ul (4.8-10.8)
[2022-04-23] MEDS ORDERED: SODIUM CHLORIDE 0.9% 250 ML IV PRN (08:49)
[2022-04-23] MEDS ORDERED: FUROSEMIDE INJ 20 MG/2 ML VIAL IV ONE ×2 (09:00→17:38)
[2022-04-23] MEDS: LANTUS PER UNIT CHARGE SQ SCH ×2 (09:00→20:34)
[2022-04-23] MEDS: INSULIN ASPART PER UNIT SC SCH ×4 (09:08→20:35)
[2022-04-23] MEDS: CLOPIDOGREL BISULFATE 75 MG TAB PO SCH (09:10)
[2022-04-23] MEDS: PANTOprazole 40 MG TAB PO SCH (09:10)
[2022-04-23] MEDS: LOSARTAN POTASSIUM 50 MG TAB PO SCH (09:11)
[2022-04-23] MEDS: METOPROLOL SUCC 50MG EXT REL TAB PO SCH (09:11)
[2022-04-23] MEDS ORDERED: POTASSIUM CHLORIDE CRTAB 20 MEQ TABCR PO STA ×2 (09:26→17:39)
--- NOTE | 2022-04-23 09:38 | Hospitalist Progress Note ---
Date of Service April 23, 2022 Assessment & Plan (1) Sepsis: (2) Acute UTI: Plan: Sepsis secondary to UTI IV fluid resuscitation in ER with improvement in lactate. Cefepime started on admission Urine culture -positive for E. coli, sensitive to ceftriaxone, switched to ceftriaxone (04/22) (3) Persistent atrial fibrillation: Plan: Chronic atrial fibrillation with contraindications to anticoagulation per outpatient cardiology notes. Continue digoxin per home regimen. (4) S/P coronary artery stent placement: Plan: Chronic diastolic CHF Elevated troponin likely secondary to demand ischemia in setting of sepsis. Echo was ordered to ensure no acute wall motion abnormalities. Continue current home regimen Echo Normal LV chamber size with mild concentric LVH. Normal LV systolic function with abnormal septal wall motion consistent with pacemaker activation, otherwise normal wall motion. EF 55 to 60%. Grade 1 diastolic dysfunction. Aortic valve sclerosis mild, without significant aortic valvular stenosis. Moderate aortic regurg. Calcified mitral apparatus. There is moderate mitral regurg. There is mild mitral stenosis. Moderate tricuspid regurg. Lasix held on admission, and IV fluids given on admission. Increased pulmonary edema overnight, restart Lasix (04/23) Anemia -Currently sees Dr. Sykes, scheduled for IV iron infusion as outpatient -Previously diagnosed with peptic ulcer, repeat endoscopy in October showed reso lution Continue PPI continue to monitor H&H -No signs of bleeding at this time -Continue home iron supplement -Hemoglobin 6.5, this a.m., April 23, blood consent obtained from the patient and patient's over the phone. 1 unit of PRBC ordered. (5) Type II diabetes mellitus: Plan: A1c 6.7%, well controlled Hold home metformin sliding scale insulin (6) HTN (hypertension): Plan: Chronic, around goal. Continue current medication. 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 Continue to renally dose meds and avoid nephrotoxic substances. (8) Dementia: Plan: High risk for delirium in the hospital and this was explained to the family. Continue good day night cycles and reorient as necessary. Continue donepezil per home regimen. (9) DVT prophylaxis: Plan: Lovenox Full code Disposition-admitted to medicine Admission and Anticipated Discharge Date Admission Date: April 20, 2022 Subjective Patient seen in follow-up of sepsis secondary to UTI Sitting up in bed, in no acute distress Very hard of hearing, communicated via writing. However even after patient re ads my questions, he barely answers, mostly gives me a sign thumb up. Currently denies any complaints. Reports feeling okay. Patient's and daughter at the bedside yesterday and updated. They report patient does not speak much usually. Overnight patient short of breath, received IV Lasix. Hemoglobin 6.5 this morning, blood consent obtained from the patient and his over the phone. Review of Systems Review of Systems: All systems reviewed & are unremarkable except as noted in Subjective Physical Exam Physical Exam: CONSTITUTIONAL: WNWD, generally ill-appearing, NAD EYES: normal conjunctivae, no scleral icterus, ENT: external ear and nose normal NECK:supple RESPIRATORY: normal respiratory effort, some minimal wheezes otherwise CTAB CARDIOVASCULAR: regular rate and rhythm, S1 and 2 heard without murmurs, no peripheral edema CHEST: inspection of chest normal GASTROINTESTINAL: soft, nontender,ND, no guarding MUSCULOSKELETAL: head is normocephalic and atraumatic, moves extremities SKIN: warm and dry NEUROLOGIC:Awake, hard of hearing. Able to answer simple questions appropriately. Communicated mostly via writing. Gives a very short answers, or thumbs up. Results & Data Results & Data ([facility]) Vital Signs (Past 12 Hours) Vital Signs Temp Pulse Pulse Resp BP Pulse Ox O2 Del Method 04/23/22 06:53 36.8 C 69 22 165/73 H 98 Nasal Cannula 04/23/22 03:49 37.5 C 69 20 160/71 H 97 Nasal Cannula 04/23/22 01:11 72 04/22/22 23:38 74 22 94 Nasal Cannula 04/22/22 23:35 37.5 C 75 20 161/68 H 94 Nasal Cannula O2 Flow Rate 04/23/22 06:53 2 04/23/22 03:49 2 04/23/22 01:11 04/22/22 23:38 2 04/22/22 23:35 2 Laboratory Results 04/23/22 04/23/22 04/23/22 Range/Units 09:15 07:36 06:31 WBC (4.8-10.8) K/ul RBC (4.63-6.08) M/uL Hgb (14.0-18.0) g/dl Hct (40.1-51.0) % MCV (80.0-100.0) fL MCH (25.0-34.0) pg MCHC (32.0-36.0) g/dL RDW Std Deviation (36.4-46.3) fL RDW Coeff of Maricarmen (11.5-14.5) % Plt Count (130-400) K/uL MPV (9.4-12.4) fL Sodium 140 (136-145) mmol/L Potassium 3.5 (3.5-5.1) mmol/L Chloride 105 (98-107) mmol/L Carbon Dioxide 23 (21-32) mmol/L Anion Gap 12 H (3-11) BUN 30 H (6-23) mg/dl Creatinine 1.45 H (0.6-1.4) mg/dl Est Cr Clr Drug Dosing 38.7 ml/min Est GFR ( Amer) 49.5 ml/min Est GFR (Non-Af Amer) 42.7 ml/min BUN/Creatinine Ratio 20.7 H (10-20) Glucose 77 (70-99(Fasting)) mg/dl POC Glucose 87 (70-99) mg/dl Calcium 7.4 L (8.5-10.1) mg/dl Phosphorus 2.7 (2.5-4.9) mg/dl Magnesium 1.9 (1.7-2.4) mg/dl Blood Type Pending Antibody Screen Pending Crossmatch See Detail 04/23/22 04/22/22 04/22/22 Range/Units 06:31 20:22 16:28 WBC 4.39 L (4.8-10.8) K/ul RBC 2.08 L (4.63-6.08) M/uL Hgb 6.5 L* (14.0-18.0) g/dl Hct 20.4 L* (40.1-51.0) % MCV 98.1 (80.0-100.0) fL MCH 31.3 (25.0-34.0) pg MCHC 31.9 L (32.0-36.0) g/dL RDW Std Deviation 57.2 H (36.4-46.3) fL RDW Coeff of Maricarmen 16.0 H (11.5-14.5) % Plt Count 162 (130-400) K/uL MPV 10.0 (9.4-12.4) fL Sodium (136-145) mmol/L Potassium (3.5-5.1) mmol/L Chloride (98-107) mmol/L Carbon Dioxide (21-32) mmol/L Anion Gap (3-11) BUN (6-23) mg/dl Creatinine (0.6-1.4) mg/dl Est Cr Clr Drug Dosing ml/min Est GFR ( Amer) ml/min Est GFR (Non-Af Amer) ml/min BUN/Creatinine Ratio (10-20) Glucose (70-99(Fasting)) mg/dl POC Glucose 95 101 H (70-99) mg/dl Calcium (8.5-10.1) mg/dl Phosphorus (2.5-4.9) mg/dl Magnesium (1.7-2.4) mg/dl Blood Type Antibody Screen Crossmatch 04/22/22 04/22/22 04/22/22 Range/Units 14:40 14:40 11:30 WBC 7.31 (4.8-10.8) K/ul RBC 2.25 L (4.63-6.08) M/uL Hgb 7.1 L (14.0-18.0) g/dl Hct 22.3 L (40.1-51.0) % MCV 99.1 (80.0-100.0) fL MCH 31.6 (25.0-34.0) pg MCHC 31.8 L (32.0-36.0) g/dL RDW Std Deviation 57.2 H (36.4-46.3) fL RDW Coeff of Maricarmen 16.1 H (11.5-14.5) % Plt Count 168 (130-400) K/uL MPV 10.5 (9.4-12.4) fL Sodium 138 (136-145) mmol/L Potassium 3.4 L (3.5-5.1) mmol/L Chloride 102 (98-107) mmol/L Carbon Dioxide 23 (21-32) mmol/L Anion Gap 13 H (3-11) BUN 29 H (6-23) mg/dl Creatinine 1.44 H (0.6-1.4) mg/dl Est Cr Clr Drug Dosing 38.9 ml/min Est GFR ( Amer) 49.9 ml/min Est GFR (Non-Af Amer) 43.0 ml/min BUN/Creatinine Ratio 20.1 H (10-20) Glucose 93 (70-99(Fasting)) mg/dl POC Glucose 104 H (70-99) mg/dl Calcium 7.7 L (8.5-10.1) mg/dl Phosphorus 2.4 L (2.5-4.9) mg/dl Magnesium 2.1 (1.7-2.4) mg/dl Blood Type Antibody Screen Crossmatch Medications Administered Current Inpatient Medications Acetaminophen (Acetaminophen 325 Mg Tab) 650 mg PO Q4H PRN PRN Reason: Pain or Fever Stop: 05/20/22 22:09 Albuterol (Albut/Ipratrop 3mg/0.5mg Neb 3 Ml Vial) 3 ml NEB QIDR PRN; Protocol PRN Reason: Shortness Of Breath Or Wheezing Stop: 05/21/22 06:59 Last Admin: 04/22/22 20:58 Dose: 3 ml Clopidogrel Bisulfate (Clopidogrel Bisulfate 75 Mg Tab) 75 mg PO QAM [facility] Stop: 05/21/22 08:59 Last Admin: 04/23/22 09:10 Dose: 75 mg Dextrose (Dextrose 50% 50 Ml Syringe) 25 - 50 ml IV UD PRN; Protocol PRN Reason: Hypoglycemia Protocol Stop: 05/20/22 22:09 Digoxin (Digoxin 0.125 Mg Tab) 0.125 mg PO [id number] [facility] Stop: 05/22/22 15:59 Last Admin: 04/22/22 17:09 Dose: 0.125 mg Donepezil HCl (Donepezil Hcl 10 Mg Tab) 10 mg PO QDD [facility] Stop: 05/21/22 16:29 Last Admin: 04/22/22 17:09 Dose: 10 mg Ferrous Sulfate (Ferrous Sulfate 325 Mg Tab) 325 mg PO BID [facility] Stop: 05/23/22 08:59 Furosemide (Furosemide 40 Mg Tab) 40 mg PO [id number] [facility] Stop: 05/23/22 08:59 Glucagon (Glucagon For Inj 1 Mg Vial) 1 mg SQ UD PRN; Protocol PRN Reason: Hypoglycemia Protocol Stop: 05/20/22 22:09 Glucose (Glucose 40% Gel 15 Gm Tube) 15 - 30 gm PO UD PRN; Protocol PRN Reason: Hypoglycemia Protocol Stop: 05/20/22 22:09 Glucose (Glucose 10 Tab/Tube) 4 - 8 tab PO UD PRN; Protocol PRN Reason: Hypoglycemia Treatment Stop: 05/20/22 22:09 Ceftriaxone Sodium 2,000 mg/ (Dextrose) 70 mls @ 140 mls/hr IV Q24H [facility]; Protocol Stop: 04/30/22 19:59 Last Infusion: 04/22/22 20:49 Dose: Infused Sodium Chloride (Nss) 250 mls @ 15 mls/hr IV .[id number] PRN PRN Reason: For Transfusion Stop: 04/23/22 18:49 Insulin Aspart (Insulin Aspart Per Unit) 0 units SC ACHS [facility] Stop: 05/21/22 07:29 Last Admin: 04/23/22 09:08 Dose: Not Given Insulin Glargine (Lantus Per Unit Charge) 15 units SQ BID [facility] Stop: 05/21/22 08:59 Last Admin: 04/22/22 20:23 Dose: 15 units Latanoprost (Latanoprost 0.005% Op Soln 2.5 Ml Btl) 1 drops OPB PM [facility] Stop: 05/20/22 22:09 Last Admin: 04/22/22 20:01 Dose: 1 drops Losartan Potassium (Losartan Potassium 50 Mg Tab) [facility] Stop: 05/21/22 08:59 Last Admin: 04/23/22 09:11 Dose: 50 mg Magnesium Oxide (Magnesium Oxide 400 Mg Tab) 400 mg PO PM [facility] Stop: 05/21/22 20:59 Last Admin: 04/22/22 20:01 Dose: 400 mg Metoprolol Succinate (Metoprolol Succ 50mg Ext Rel Tab) [facility] Stop: 05/21/22 08:59 Last Admin: 04/23/22 09:11 Dose: 50 mg Miscellaneous (Carbohydrates For Hypoglycemia ) 15 - 30 gm PO UD PRN PRN Reason: Hypoglycemia Protocol Stop: 05/20/22 22:09 Miscellaneous (Dutasteride 0.5 Mg - Order Awaiting Action) 1 each N/A QS [facility] Stop: 05/21/22 00:00 Last Admin: 04/23/22 09:10 Dose: Not Given Pantoprazole Sodium (Pantoprazole 40 Mg Tab) [facility] Stop: 05/21/22 08:59 Last Admin: 04/23/22 09:10 Dose: 40 mg Simvastatin (Simvastatin 20 Mg Tab) 20 mg PO QPM [facility] Stop: 05/21/22 20:59 Last Admin: 04/22/22 20:01 Dose: 20 mg
[2022-04-23] MEDS: FERROUS SULFATE 325 MG TAB PO SCH ×2 (09:44→20:35)
[2022-04-23] MEDS: FUROSEMIDE 40 MG TAB PO SCH (09:44)
[2022-04-23 17:08] LABS: Hematocrit (blood only) 24.2 % (40.1-51.0); Hemoglobin 7.8 g/dl (14.0-18.0)
[2022-04-23] MEDS: DONEPEZIL HCL 10 MG TAB PO SCH (17:22)
[2022-04-23] MEDS: ACETAMINOPHEN 325 MG TAB PO PRN (17:27)
[2022-04-23 17:33] LABS: BUN Creatinine Ratio 22.6 (10-20); Calcium 7.4 mg/dl (8.5-10.1); Creatinine Clr Calc Pharmacy 45.2 ml/min; Est GFR (African American) 59.8 ml/min; Est GFR (Non-African American) 51.6 ml/min; Potassium 3.8 mmol/L (3.5-5.1)
[2022-04-23] MEDS: cefTRIAXone SODIUM 2,000 MG in DEXTROSE 5% 50 ML IV SCH (20:05)
[2022-04-23] MEDS: MAGNESIUM OXIDE 400 MG TAB PO SCH (20:35)
[2022-04-23] MEDS: SIMVASTATIN 20 MG TAB PO SCH (20:35)
[2022-04-23] MEDS: LATANOPROST 0.005% OP SOLN 2.5 ML BTL OPB SCH (20:35)
[2022-04-24 06:09] LABS: Hematocrit (blood only) 23.5 % (40.1-51.0); Hemoglobin 7.6 g/dl (14.0-18.0); Mean Corpuscular Hemoglobin 32.1 pg (25.0-34.0); Mean Corpuscular Hgb Conc 32.3 g/dL (32.0-36.0); Mean Corpuscular Volume 99.2 fL (80.0-100.0); Mean Platelet Volume 10.1 fL (9.4-12.4); Platelet Count 199 K/uL (130-400); RDW Standard Deviation 58.5 fL (36.4-46.3); Red Blood Count 2.37 M/uL (4.63-6.08); White Blood Count 4.65 K/ul (4.8-10.8)
[2022-04-24 06:31] LABS: BUN Creatinine Ratio 23.5 (10-20); Calcium 7.5 mg/dl (8.5-10.1); Est GFR (African American) 62.8 ml/min; Est GFR (Non-African American) 54.2 ml/min; Magnesium 1.9 mg/dl (1.7-2.4); Phosphorus 2.4 mg/dl (2.5-4.9); Potassium 3.6 mmol/L (3.5-5.1)
--- NOTE | 2022-04-24 07:55 | Hospitalist Progress Note ---
Date of Service April 24, 2022 Assessment & Plan (1) Sepsis: (2) Acute UTI: Plan: Sepsis secondary to UTI IV fluid resuscitation in ER with improvement in lactate. Cefepime started on admission Urine culture -positive for E. coli, sensitive to ceftriaxone, switched to ceftriaxone (04/22) (3) Persistent atrial fibrillation: Plan: Chronic atrial fibrillation with contraindications to anticoagulation per outpatient cardiology notes. Continue digoxin per home regimen. (4) S/P coronary artery stent placement: Plan: Chronic diastolic CHF Elevated troponin likely secondary to demand ischemia in setting of sepsis. Echo was ordered to ensure no acute wall motion abnormalities. Continue current home regimen Echo Normal LV chamber size with mild concentric LVH. Normal LV systolic function with abnormal septal wall motion consistent with pacemaker activation, otherwise normal wall motion. EF 55 to 60%. Grade 1 diastolic dysfunction. Aortic valve sclerosis mild, without significant aortic valvular stenosis. Moderate aortic regurg. Calcified mitral apparatus. There is moderate mitral regurg. There is mild mitral stenosis. Moderate tricuspid regurg. Lasix held on admission, and IV fluids given on admission. Increased pulmonary edema overnight, restart Lasix (04/23) 04/24 repeat CXR Anemia -Currently sees Dr. Sykes, scheduled for IV iron infusion as outpatient -Previously diagnosed with peptic ulcer, repeat endoscopy in October showed resolution Continue PPI continue to monitor H&H -No signs of bleeding at this time -Continue home iron supplement -Hemoglobin 6.5, this a.m., April 23, blood consent obtained from the patient and patient's over the phone. 1 unit of PRBC ordered. 04/24 AM Hgb - 7.6 (5) Type II diabetes mellitus: Plan: A1c 6.7%, well controlled Hold home metformin sliding scale insulin (6) HTN (hypertension): Plan: Chronic, around goal. Continue current medication. 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 Continue to renally dose meds and avoid nephrotoxic substances. (8) Dementia: Plan: High risk for delirium in the hospital and this was explained to the family. Continue good day night cycles and reorient as necessary. Continue donepezil per home regimen. (9) DVT prophylaxis: Plan: Lovenox Full code Disposition-admitted to medicine Admission and Anticipated Discharge Date Admission Date: April 20, 2022 Subjective Patient seen in follow-up of sepsis secondary to UTI Sitting up in bed, in no acute distress Very hard of hearing, communicated via writing. However even after patient reads my questions, he barely answers, mostly gives me a sign thumb up. Currently denies any complaints. Reports feeling okay. Family reports patient does not speak much usually. Yesterday hemoglobin 6.5, blood consent obtained from the patient and his over the phone. Pt received 1 unit of pRBC. Review of Systems Review of Systems: All systems reviewed & are unremarkable except as noted in Subjective Physical Exam Physical Exam: CONSTITUTIONAL: WNWD, generally ill-appearing, NAD EYES: normal conjunctivae, no scleral icterus, ENT: external ear and nose normal NECK:supple RESPIRATORY: normal respiratory effort, some minimal wheezes otherwise CTAB CARDIOVASCULAR: regular rate and rhythm, S1 and 2 heard without murmurs, no peripheral edema CHEST: inspection of chest normal GASTROINTESTINAL: soft, nontender,ND, no guarding MUSCULOSKELETAL: head is normocephalic and atraumatic, moves extremities SKIN: warm and dry NEUROLOGIC:Awake, hard of hearing. Able to answer simple questions appropriately. Communicated mostly via writing. Gives a very short answers, or thumbs up. Results & Data Results & Data ([facility]) Vital Signs (Past 12 Hours) Vital Signs Temp Pulse Pulse Resp BP Pulse Ox O2 Del Method 04/24/22 07:49 36.7 C 73 20 165/62 H 96 Nasal Cannula 04/24/22 03:00 36.5 C 72 18 159/74 H 97 Nasal Cannula 04/24/22 00:00 70 04/23/22 23:19 36.9 C 70 19 156/68 H 97 Nasal Cannula 04/23/22 20:02 37.2 C 70 18 156/69 H 97 O2 Flow Rate 04/24/22 07:49 2 04/24/22 03:00 2 04/24/22 00:00 04/23/22 23:19 04/23/22 20:02 Laboratory Results 04/24/22 04/24/22 04/24/22 Range/Units 07:11 06:41 05:54 WBC (4.8-10.8) K/ul RBC (4.63-6.08) M/uL Hgb (14.0-18.0) g/dl Hct (40.1-51.0) % MCV (80.0-100.0) fL MCH (25.0-34.0) pg MCHC (32.0-36.0) g/dL RDW Std Deviation (36.4-46.3) fL RDW Coeff of Maricarmen (11.5-14.5) % Plt Count (130-400) K/uL MPV (9.4-12.4) fL Sodium 143 (136-145) mmol/L Potassium 3.6 (3.5-5.1) mmol/L Chloride 107 (98-107) mmol/L Carbon Dioxide 25 (21-32) mmol/L Anion Gap 11 (3-11) BUN 28 H (6-23) mg/dl Creatinine 1.19 (0.6-1.4) mg/dl Est Cr Clr Drug Dosing 51.0 ml/min Est GFR ( Amer) 62.8 ml/min Est GFR (Non-Af Amer) 54.2 ml/min BUN/Creatinine Ratio 23.5 H (10-20) Glucose 59 L (70-99(Fasting)) mg/dl POC Glucose 79 62 L* (70-99) mg/dl Calcium 7.5 L (8.5-10.1) mg/dl Phosphorus 2.4 L (2.5-4.9) mg/dl Magnesium 1.9 (1.7-2.4) mg/dl Blood Type Antibody Screen Crossmatch 04/24/22 04/23/22 04/23/22 Range/Units 05:54 20:28 16:51 WBC 4.65 L (4.8-10.8) K/ul RBC 2.37 L (4.63-6.08) M/uL Hgb 7.6 L (14.0-18.0) g/dl Hct 23.5 L (40.1-51.0) % MCV 99.2 (80.0-100.0) fL MCH 32.1 (25.0-34.0) pg MCHC 32.3 (32.0-36.0) g/dL RDW Std Deviation 58.5 H (36.4-46.3) fL RDW Coeff of Maricarmen 16.0 H (11.5-14.5) % Plt Count 199 (130-400) K/uL MPV 10.1 (9.4-12.4) fL Sodium 140 (136-145) mmol/L Potassium 3.8 (3.5-5.1) mmol/L Chloride 105 (98-107) mmol/L Carbon Dioxide 23 (21-32) mmol/L Anion Gap 12 H (3-11) BUN 28 H (6-23) mg/dl Creatinine 1.24 (0.6-1.4) mg/dl Est Cr Clr Drug Dosing 45.2 ml/min Est GFR ( Amer) 59.8 ml/min Est GFR (Non-Af Amer) 51.6 ml/min BUN/Creatinine Ratio 22.6 H (10-20) Glucose 85 (70-99(Fasting)) mg/dl POC Glucose 100 H (70-99) mg/dl Calcium 7.4 L (8.5-10.1) mg/dl Phosphorus (2.5-4.9) mg/dl Magnesium (1.7-2.4) mg/dl Blood Type Antibody Screen Crossmatch 04/23/22 04/23/22 04/23/22 Range/Units 16:51 16:37 10:57 WBC (4.8-10.8) K/ul RBC (4.63-6.08) M/uL Hgb 7.8 L (14.0-18.0) g/dl Hct 24.2 L (40.1-51.0) % MCV (80.0-100.0) fL MCH (25.0-34.0) pg MCHC (32.0-36.0) g/dL RDW Std Deviation (36.4-46.3) fL RDW Coeff of Maricarmen (11.5-14.5) % Plt Count (130-400) K/uL MPV (9.4-12.4) fL Sodium (136-145) mmol/L Potassium (3.5-5.1) mmol/L Chloride (98-107) mmol/L Carbon Dioxide (21-32) mmol/L Anion Gap (3-11) BUN (6-23) mg/dl Creatinine (0.6-1.4) mg/dl Est Cr Clr Drug Dosing ml/min Est GFR ( Amer) ml/min Est GFR (Non-Af Amer) ml/min BUN/Creatinine Ratio (10-20) Glucose (70-99(Fasting)) mg/dl POC Glucose 97 96 (70-99) mg/dl Calcium (8.5-10.1) mg/dl Phosphorus (2.5-4.9) mg/dl Magnesium (1.7-2.4) mg/dl Blood Type Antibody Screen Crossmatch 04/23/22 Range/Units 09:15 WBC (4.8-10.8) K/ul RBC (4.63-6.08) M/uL Hgb (14.0-18.0) g/dl Hct (40.1-51.0) % MCV (80.0-100.0) fL MCH (25.0-34.0) pg MCHC (32.0-36.0) g/dL RDW Std Deviation (36.4-46.3) fL RDW Coeff of Maricarmen (11.5-14.5) % Plt Count (130-400) K/uL MPV (9.4-12.4) fL Sodium (136-145) mmol/L Potassium (3.5-5.1) mmol/L Chloride (98-107) mmol/L Carbon Dioxide (21-32) mmol/L Anion Gap (3-11) BUN (6-23) mg/dl Creatinine (0.6-1.4) mg/dl Est Cr Clr Drug Dosing ml/min Est GFR ( Amer) ml/min Est GFR (Non-Af Amer) ml/min BUN/Creatinine Ratio (10-20) Glucose (70-99(Fasting)) mg/dl POC Glucose (70-99) mg/dl Calcium (8.5-10.1) mg/dl Phosphorus (2.5-4.9) mg/dl Magnesium (1.7-2.4) mg/dl Blood Type A Positive Antibody Screen NEGATIVE Crossmatch See Detail Medications Administered Current Inpatient Medications Acetaminophen (Acetaminophen 325 Mg Tab) 650 mg PO Q4H PRN PRN Reason: Pain or Fever Stop: 05/20/22 22:09 Last Admin: 04/23/22 17:27 Dose: 650 mg Albuterol (Albut/Ipratrop 3mg/0.5mg Neb 3 Ml Vial) 3 ml NEB QIDR PRN; Protocol PRN Reason: Shortness Of Breath Or Wheezing Stop: 05/21/22 06:59 Last Admin: 04/22/22 20:58 Dose: 3 ml Clopidogrel Bisulfate (Clopidogrel Bisulfate 75 Mg Tab) 75 mg PO QAM [facility] Stop: 05/21/22 08:59 Last Admin: 04/23/22 09:10 Dose: 75 mg Dextrose (Dextrose 50% 50 Ml Syringe) 25 - 50 ml IV UD PRN; Protocol PRN Reason: Hypoglycemia Protocol Stop: 05/20/22 22:09 Digoxin (Digoxin 0.125 Mg Tab) 0.125 mg PO MoWeFr@1600 [facility] Stop: 05/22/22 15:59 Last Admin: 04/22/22 17:09 Dose: 0.125 mg Donepezil HCl (Donepezil Hcl 10 Mg Tab) 10 mg PO QDD [facility] Stop: 05/21/22 16:29 Last Admin: 04/23/22 17:22 Dose: 10 mg Ferrous Sulfate (Ferrous Sulfate 325 Mg Tab) 325 mg PO BID [facility] Stop: 05/23/22 08:59 Last Admin: 04/23/22 20:35 Dose: 325 mg Furosemide (Furosemide 40 Mg Tab) 40 mg PO SuTuThSa@0900 [facility] Stop: 05/23/22 08:59 Last Admin: 04/23/22 09:44 Dose: 40 mg Glucagon (Glucagon For Inj 1 Mg Vial) 1 mg SQ UD PRN; Protocol PRN Reason: Hypoglycemia Protocol Stop: 05/20/22 22:09 Glucose (Glucose 40% Gel 15 Gm Tube) 15 - 30 gm PO UD PRN; Protocol PRN Reason: Hypoglycemia Protocol Stop: 05/20/22 22:09 Glucose (Glucose 10 Tab/Tube) 4 - 8 tab PO UD PRN; Protocol PRN Reason: Hypoglycemia Treatment Stop: 05/20/22 22:09 Ceftriaxone Sodium 2,000 mg/ (Dextrose) 70 mls @ 140 mls/hr IV Q24H [facility]; Protocol Stop: 04/30/22 19:59 Last Infusion: 04/24/22 00:43 Dose: Infused Insulin Aspart (Insulin Aspart Per Unit) 0 units SC ACHS [facility] Stop: 05/21/22 07:29 Last Admin: 04/23/22 20:35 Dose: Not Given Insulin Glargine (Lantus Per Unit Charge) 15 units SQ BID [facility] Stop: 05/21/22 08:59 Last Admin: 04/23/22 20:34 Dose: 15 units Latanoprost (Latanoprost 0.005% Op Soln 2.5 Ml Btl) 1 drops OPB PM [facility] Stop: 05/20/22 22:09 Last Admin: 04/23/22 20:35 Dose: 1 drops Losartan Potassium (Losartan Potassium 50 Mg Tab) 50 mg PO QAM [facility] Stop: 05/21/22 08:59 Last Admin: 04/23/22 09:11 Dose: 50 mg Magnesium Oxide (Magnesium Oxide 400 Mg Tab) 400 mg PO PM [facility] Stop: 05/21/22 20:59 Last Admin: 04/23/22 20:35 Dose: 400 mg Metoprolol Succinate (Metoprolol Succ 50mg Ext Rel Tab) [facility] Stop: 05/21/22 08:59 Last Admin: 04/23/22 09:11 Dose: 50 mg Miscellaneous (Carbohydrates For Hypoglycemia ) 15 - 30 gm PO UD PRN PRN Reason: Hypoglycemia Protocol Stop: 05/20/22 22:09 Last Admin: 04/24/22 06:43 Dose: 15 gm Miscellaneous (Dutasteride 0.5 Mg - Order Awaiting Action) 1 each N/A QS [facility] Stop: 05/21/22 00:00 Last Admin: 04/24/22 00:43 Dose: Not Given Pantoprazole Sodium (Pantoprazole 40 Mg Tab) [facility] Stop: 05/21/22 08:59 Last Admin: 04/23/22 09:10 Dose: 40 mg Simvastatin (Simvastatin 20 Mg Tab) 20 mg PO QPM [facility] Stop: 05/21/22 20:59 Last Admin: 04/23/22 20:35 Dose: 20 mg
[2022-04-24] MEDS: INSULIN ASPART PER UNIT SC SCH ×4 (08:37→20:56)
[2022-04-24] MEDS: FERROUS SULFATE 325 MG TAB PO SCH ×2 (08:39→19:37)
[2022-04-24] MEDS: CLOPIDOGREL BISULFATE 75 MG TAB PO SCH (08:39)
[2022-04-24] MEDS: METOPROLOL SUCC 50MG EXT REL TAB PO SCH (08:39)
[2022-04-24] MEDS: FUROSEMIDE 40 MG TAB PO SCH (08:40)
[2022-04-24] MEDS: PANTOprazole 40 MG TAB PO SCH (08:40)
[2022-04-24] MEDS: LOSARTAN POTASSIUM 50 MG TAB PO SCH (08:40)
[2022-04-24] MEDS ORDERED: PHARMACY GLYCEMIC MGMT CONSULT PRN (08:46)
--- NOTE | 2022-04-24 10:42 | Pharmacy Report ---
Pharmacy Glycemic Short Note 2 - Date of Service April 24, 2022 - Glycemic Short BSG Results (Last 24 hours): 04/23/22 04/23/22 04/23/22 10:57 16:37 16:51 Glucose 85 POC Glucose 96 97 04/23/22 04/24/22 04/24/22 20:28 05:54 06:41 Glucose 59 L POC Glucose 100 H 62 L* 04/24/22 07:11 Glucose POC Glucose 79 OUTPATIENT ANTIDIABETIC REGIMEN: * metformin 850 mg bid * A1c 6.7% ASSESSMENT: * 87 year old admitted with sepsis/uti - receiving ceftriaxone. Type 2 DM managed on metformin at home * Pharmacy consulted for glycemic management - patient with hypoglycemia at time of consult. Had been receiving stress of 2 Lantus (15 units bid). Plan to cut back on basal insulin as likely contributing to lower BSG this AM. Will have a scale for basal insulin at HS time * Continue same CF/CR for now PLAN FOR INPATIENT GLYCEMIC CONTROL: * Hold outpatient oral diabetes medications * Basal insulin * Lantus 0-10 units hs depending on bsg value * Bolus insulin * NovoLog per scale ACHS or Q6hrs while NPO * Goal Range: Low 140 mg/dL - High 180 mg/dL * Correction Factor: 25 mg/dL/unit * Nutritional / Prandial insulin per carb ratio of 1 unit per 9 grams CHO consumed
[2022-04-24] MEDS: POTASSIUM CHLORIDE PWD 20 MEQ PACK PO SCH (13:34)
--- NOTE | 2022-04-24 14:05 | XRay Report ---
XR chest 1V portable HISTORY: follow up COMPARISON: Chest 04/02/2022. FINDINGS: The cardia silhouette remains enlarged. There is mild interstitial pulmonary edema. This is similar to the prior study. No new focal lung consolidations identified. No pleural fusions. No pneu mothorax. There is a left-sided pacemaker/defibrillator. Poststernotomy changes are again noted. IMPRESSION: No change in the cardiomegaly and mild interstitial pulmonary edema. ACT 112: Negative or not required by law. Electronically signed by: Wyatt Leblanc M.D. 04/24/2022 2:04 PM
[2022-04-24] MEDS: DONEPEZIL HCL 10 MG TAB PO SCH (17:18)
[2022-04-24] MEDS ORDERED: FUROSEMIDE INJ 20 MG/2 ML VIAL IV ONE (17:58)
[2022-04-24] MEDS: ALBUT/IPRATROP 3MG/0.5MG NEB 3 ML VIAL NEB PRN (18:03)
[2022-04-24] MEDS: MAGNESIUM OXIDE 400 MG TAB PO SCH (19:36)
[2022-04-24] MEDS: SIMVASTATIN 20 MG TAB PO SCH (19:37)
[2022-04-24] MEDS: LATANOPROST 0.005% OP SOLN 2.5 ML BTL OPB SCH (19:37)
[2022-04-24] MEDS: cefTRIAXone SODIUM 2,000 MG in DEXTROSE 5% 50 ML IV SCH (19:44)
[2022-04-24] MEDS ORDERED: LANTUS PER UNIT CHARGE SQ SCH (21:00)
[2022-04-25 07:10] LABS: Hematocrit (blood only) 23.2 % (40.1-51.0); Hemoglobin 7.5 g/dl (14.0-18.0); Mean Corpuscular Hemoglobin 31.6 pg (25.0-34.0); Mean Corpuscular Hgb Conc 32.3 g/dL (32.0-36.0); Mean Corpuscular Volume 97.9 fL (80.0-100.0); Mean Platelet Volume 10.1 fL (9.4-12.4); Platelet Count 253 K/uL (130-400); RDW Coefficient of Variation 16.1 % (11.5-14.5); RDW Standard Deviation 57.4 fL (36.4-46.3); Red Blood Count 2.37 M/uL (4.63-6.08); White Blood Count 5.31 K/ul (4.8-10.8)
[2022-04-25 07:55] LABS: BUN Creatinine Ratio 22.8 (10-20); Calcium 7.7 mg/dl (8.5-10.1); Creatinine Clr Calc Pharmacy 47.9 ml/min; Est GFR (African American) 58.1 ml/min; Est GFR (Non-African American) 50.1 ml/min; Potassium 3.7 mmol/L (3.5-5.1)
[2022-04-25] MEDS: INSULIN ASPART PER UNIT SC SCH ×4 (08:04→20:40)
[2022-04-25] MEDS: METOPROLOL SUCC 50MG EXT REL TAB PO SCH (08:05)
[2022-04-25] MEDS: FERROUS SULFATE 325 MG TAB PO SCH ×2 (08:05→20:31)
[2022-04-25] MEDS: CLOPIDOGREL BISULFATE 75 MG TAB PO SCH (08:05)
[2022-04-25] MEDS: LOSARTAN POTASSIUM 50 MG TAB PO SCH (08:05)
[2022-04-25] MEDS: PANTOprazole 40 MG TAB PO SCH (08:05)
[2022-04-25] MEDS: POTASSIUM CHLORIDE PWD 20 MEQ PACK PO SCH (08:06)
--- NOTE | 2022-04-25 08:40 | Hospitalist Progress Note ---
Date of Service April 25, 2022 Assessment & Plan (1) Sepsis: (2) Acute UTI: Plan: Sepsis secondary to UTI IV fluid resuscitation in ER with improvement in lactate. Cefepime started on admission Urine culture -positive for E. coli, sensitive to ceftriaxone, switched to ceftriaxone (04/22) (3) Persistent atrial fibrillation: Plan: Chronic atrial fibrillation with contraindications to anticoagulation per outpatient cardiology notes. Continue digoxin per home regimen. (4) S/P coronary artery stent placement: Plan: Chronic diastolic CHF Elevated troponin likely secondary to demand ischemia in setting of sepsis. Echo was ordered to ensure no acute wall motion abnormalities. Continue current home regimen Echo Normal LV chamber size with mild concentric LVH. Normal LV systolic function with abnormal septal wall motion consistent with pacemaker activation, otherwise normal wall motion. EF 55 to 60%. Grade 1 diastolic dysfunction. Aortic valve sclerosis mild, without significant aortic valvular stenosis. Moderate aortic regurg. Calcified mitral apparatus. There is moderate mitral regurg. There is mild mitral stenosis. Moderate tricuspid regurg. Lasix held on admission, and IV fluids given on admission. Increased pulmonary edema overnight, restart Lasix (04/23) 04/24 repeat CXR Anemia -Currently sees Dr. Sykes, scheduled for IV iron infusion as outpatient -Previously diagnosed with peptic ulcer, repeat endoscopy in October showed resolution Continue PPI continue to monitor H&H -No signs of bleeding at this time -Continue home iron supplement -Hemoglobin 6.5, this a.m., April 23, blood consent obtained from the patient and patient's over the phone. 1 unit of PRBC ordered. 04/24 AM Hgb - 7.6 04/25 AM Hgb - 7.5 (5) Type II diabetes mellitus: Plan: A1c 6.7%, well controlled Hold home metformin sliding scale insulin (6) HTN (hypertension): Plan: Chronic, around goal. Continue current medication. 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 Continue to renally dose meds and avoid nephrotoxic substances. (8) Dementia: Plan: High risk for delirium in the hospital and this was explained to the family. Continue good day night cycles and reorient as necessary. Continue donepezil per home regimen. (9) DVT prophylaxis: Plan: Lovenox Full code Disposition- admitted to medicine, plan for rehab Admission and Anticipated Discharge Date Admission Date: April 20, 2022 Subjective Patient seen in follow-up of sepsis secondary to UTI Sitting up in chair this AM, in no acute distress Very hard of hearing, communicated via writing. However even after patient reads my questions, he barely answers, mostly gives me a sign thumb up. Currently denies any complaints. Reports feeling okay. Family reports patient does not speak much usually. Family at the bedside. Had hemoglobin 6.5, blood consent obtained from the patient and his over the phone. Pt received 1 unit of pRBC. Review of Systems Review of Systems: All systems reviewed & are unremarkable except as noted in Subjective Physical Exam Physical Exam: CONSTITUTIONAL: WNWD, generally ill-appearing, NAD EYES: normal conjunctivae, no scleral icterus, ENT: external ear and nose normal NECK:supple RESPIRATORY: normal respiratory effort, some minimal wheezes otherwise CTAB CARDIOVASCULAR: regular rate and rhythm, S1 and 2 heard without murmurs, no peripheral edema CHEST: inspection of chest normal GASTROINTESTINAL: soft, nontender,ND, no guarding MUSCULOSKELETAL: head is normocephalic and atraumatic, moves extremities SKIN: warm and dry NEUROLOGIC:Awake, hard of hearing. Able to answer simple questions appropriately. Communicated mostly via writing. Gives a very short answers, or thumbs up. Results & Data Results & Data ([facility]) Vital Signs (Past 12 Hours) Vital Signs Temp Pulse Resp BP Pulse Ox O2 Del Method O2 Flow Rate 04/25/22 03:54 37.7 C H 70 18 176/70 H 92 Nasal Cannula 2 04/24/22 23:43 37.3 C 77 18 170/74 H 92 Nasal Cannula 2 Laboratory Results 04/25/22 04/25/22 04/25/22 Range/Units 07:15 06:32 06:32 WBC 5.31 (4.8-10.8) K/ul RBC 2.37 L (4.63-6.08) M/uL Hgb 7.5 L (14.0-18.0) g/dl Hct 23.2 L (40.1-51.0) % MCV 97.9 (80.0-100.0) fL MCH 31.6 (25.0-34.0) pg MCHC 32.3 (32.0-36.0) g/dL RDW Std Deviation 57.4 H (36.4-46.3) fL RDW Coeff of Maricarmen 16.1 H (11.5-14.5) % Plt Count 253 (130-400) K/uL MPV 10.1 (9.4-12.4) fL Sodium 141 (136-145) mmol/L Potassium 3.7 (3.5-5.1) mmol/L Chloride 104 (98-107) mmol/L Carbon Dioxide 25 (21-32) mmol/L Anion Gap 12 H (3-11) BUN 29 H (6-23) mg/dl Creatinine 1.27 (0.6-1.4) mg/dl Est Cr Clr Drug Dosing 47.9 ml/min Est GFR ( Amer) 58.1 ml/min Est GFR (Non-Af Amer) 50.1 ml/min BUN/Creatinine Ratio 22.8 H (10-20) Glucose 86 (70-99(Fasting)) mg/dl POC Glucose 91 (70-99) mg/dl Calcium 7.7 L (8.5-10.1) mg/dl Crossmatch 04/24/22 04/24/22 04/24/22 Range/Units 20:38 16:25 11:24 WBC (4.8-10.8) K/ul RBC (4.63-6.08) M/uL Hgb (14.0-18.0) g/dl Hct (40.1-51.0) % MCV (80.0-100.0) fL MCH (25.0-34.0) pg MCHC (32.0-36.0) g/dL RDW Std Deviation (36.4-46.3) fL RDW Coeff of Maricarmen (11.5-14.5) % Plt Count (130-400) K/uL MPV (9.4-12.4) fL Sodium (136-145) mmol/L Potassium (3.5-5.1) mmol/L Chloride (98-107) mmol/L Carbon Dioxide (21-32) mmol/L Anion Gap (3-11) BUN (6-23) mg/dl Creatinine (0.6-1.4) mg/dl Est Cr Clr Drug Dosing ml/min Est GFR ( Amer) ml/min Est GFR (Non-Af Amer) ml/min BUN/Creatinine Ratio (10-20) Glucose (70-99(Fasting)) mg/dl POC Glucose 149 H 130 H 111 H (70-99) mg/dl Calcium (8.5-10.1) mg/dl Crossmatch 04/23/22 Range/Units 09:15 WBC (4.8-10.8) K/ul RBC (4.63-6.08) M/uL Hgb (14.0-18.0) g/dl Hct (40.1-51.0) % MCV (80.0-100.0) fL MCH (25.0-34.0) pg MCHC (32.0-36.0) g/dL RDW Std Deviation (36.4-46.3) fL RDW Coeff of Maricarmen (11.5-14.5) % Plt Count (130-400) K/uL MPV (9.4-12.4) fL Sodium (136-145) mmol/L Potassium (3.5-5.1) mmol/L Chloride (98-107) mmol/L Carbon Dioxide (21-32) mmol/L Anion Gap (3-11) BUN (6-23) mg/dl Creatinine (0.6-1.4) mg/dl Est Cr Clr Drug Dosing ml/min Est GFR ( Amer) ml/min Est GFR (Non-Af Amer) ml/min BUN/Creatinine Ratio (10-20) Glucose (70-99(Fasting)) mg/dl POC Glucose (70-99) mg/dl Calcium (8.5-10.1) mg/dl Crossmatch See Detail Medications Administered Current Inpatient Medications Acetaminophen (Acetaminophen 325 Mg Tab) 650 mg PO Q4H PRN PRN Reason: Pain or Fever Stop: 05/20/22 22:09 Last Admin: 04/23/22 17:27 Dose: 650 mg Albuterol (Albut/Ipratrop 3mg/0.5mg Neb 3 Ml Vial) 3 ml NEB QIDR PRN; Protocol PRN Reason: Shortness Of Breath Or Wheezing Stop: 05/21/22 06:59 Last Admin: 04/24/22 18:03 Dose: 3 ml Clopidogrel Bisulfate (Clopidogrel Bisulfate 75 Mg Tab) 75 mg PO QAM [facility] Stop: 05/21/22 08:59 Last Admin: 04/25/22 08:05 Dose: 75 mg Dextrose (Dextrose 50% 50 Ml Syringe) 25 - 50 ml IV UD PRN; Protocol PRN Reason: Hypoglycemia Protocol Stop: 05/20/22 22:09 Digoxin (Digoxin 0.125 Mg Tab) 0.125 mg PO MoWeFr@1600 [facility] Stop: 05/22/22 15:59 Last Admin: 04/22/22 17:09 Dose: 0.125 mg Donepezil HCl (Donepezil Hcl 10 Mg Tab) 10 mg PO QDD [facility] Stop: 05/21/22 16:29 Last Admin: 04/24/22 17:18 Dose: 10 mg Ferrous Sulfate (Ferrous Sulfate 325 Mg Tab) 325 mg PO BID [facility] Stop: 05/23/22 08:59 Last Admin: 04/25/22 08:05 Dose: 325 mg Furosemide (Furosemide 40 Mg Tab) 40 mg PO SuTuThSa@0900 [facility] Stop: 05/23/22 08:59 Last Admin: 04/24/22 08:40 Dose: 40 mg Glucagon (Glucagon For Inj 1 Mg Vial) 1 mg SQ UD PRN; Protocol PRN Reason: Hypoglycemia Protocol Stop: 05/20/22 22:09 Glucose (Glucose 40% Gel 15 Gm Tube) 15 - 30 gm PO UD PRN; Protocol PRN Reason: Hypoglycemia Protocol Stop: 05/20/22 22:09 Glucose (Glucose 10 Tab/Tube) 4 - 8 tab PO UD PRN; Protocol PRN Reason: Hypoglycemia Treatment Stop: 05/20/22 22:09 Ceftriaxone Sodium 2,000 mg/ (Dextrose) 70 mls @ 140 mls/hr IV Q24H [facility]; Protocol Stop: 04/30/22 19:59 Last Infusion: 04/24/22 20:38 Dose: Infused Insulin Aspart (Insulin Aspart Per Unit) 0 units SC ACHS [facility] Stop: 05/21/22 07:29 Last Admin: 04/25/22 08:04 Dose: Not Given Insulin Glargine (Lantus Per Unit Charge) 0 units SQ HS [facility]; Protocol Stop: 05/24/22 20:59 Last Admin: 04/24/22 20:57 Dose: Not Given Latanoprost (Latanoprost 0.005% Op Soln 2.5 Ml Btl) 1 drops OPB PM [facility] Stop: 05/20/22 22:09 Last Admin: 04/24/22 19:37 Dose: 1 drops Losartan Potassium (Losartan Potassium 50 Mg Tab) [facility] Stop: 05/21/22 08:59 Last Admin: 04/25/22 08:05 Dose: 50 mg Magnesium Oxide (Magnesium Oxide 400 Mg Tab) 400 mg PO PM [facility] Stop: 05/21/22 20:59 Last Admin: 04/24/22 19:36 Dose: 400 mg Metoprolol Succinate (Metoprolol Succ 50mg Ext Rel Tab) [facility] [place] Stop: 05/21/22 08:59 Last Admin: 04/25/22 08:05 Dose: 50 mg Miscellaneous (Carbohydrates For Hypoglycemia ) 15 - 30 gm PO UD PRN PRN Reason: Hypoglycemia Protocol Stop: 05/20/22 22:09 Last Admin: 04/24/22 06:43 Dose: 15 gm Miscellaneous (Dutasteride 0.5 Mg - Order Awaiting Action) 1 each N/A QS [facility] Stop: 05/21/22 00:00 Last Admin: 04/24/22 23:30 Dose: Not Given Miscellaneous Information (Pharmacy Glycemic Mgmt Consult) 1 each N/A UD PRN PRN Reason: Consult Stop: 05/24/22 08:45 Pantoprazole Sodium (Pantoprazole 40 Mg Tab) 40 mg PO [facility] Stop: 05/21/22 08:59 Last Admin: 04/25/22 08:05 Dose: 40 mg Potassium Chloride (Potassium Chloride Pwd 20 Meq Pack) 20 meq [facility] Stop: 05/24/22 12:14 Last Admin: 04/25/22 08:06 Dose: 20 meq Simvastatin (Simvastatin 20 Mg Tab) 20 mg PO QPM [facility] Stop: 05/21/22 20:59 Last Admin: 04/24/22 19:37 Dose: 20 mg
[2022-04-25] MEDS: FUROSEMIDE 40 MG TAB PO SCH (12:33)
[2022-04-25] MEDS: DONEPEZIL HCL 10 MG TAB PO SCH (17:11)
[2022-04-25] MEDS: DIGOXIN 0.125 MG TAB PO SCH (17:11)
[2022-04-25] MEDS: cefTRIAXone SODIUM 2,000 MG in DEXTROSE 5% 50 ML IV SCH (19:32)
[2022-04-25] MEDS: SIMVASTATIN 20 MG TAB PO SCH (20:31)
[2022-04-25] MEDS: LATANOPROST 0.005% OP SOLN 2.5 ML BTL OPB SCH (20:31)
[2022-04-25] MEDS: MAGNESIUM OXIDE 400 MG TAB PO SCH (20:31)
[2022-04-25] MEDS: ACETAMINOPHEN 325 MG TAB PO PRN (23:30)
[2022-04-26 06:42] LABS: Hemoglobin 7.7 g/dl (14.0-18.0); Mean Corpuscular Hgb Conc 32.1 g/dL (32.0-36.0); Mean Corpuscular Volume 99.6 fL (80.0-100.0); Mean Platelet Volume 9.5 fL (9.4-12.4); Platelet Count 279 K/uL (130-400); RDW Coefficient of Variation 15.9 % (11.5-14.5); RDW Standard Deviation 58.8 fL (36.4-46.3); Red Blood Count 2.41 M/uL (4.63-6.08); White Blood Count 4.42 K/ul (4.8-10.8)
[2022-04-26 07:01] LABS: Calcium 7.8 mg/dl (8.5-10.1); Creatinine Clr Calc Pharmacy 46.7 ml/min; Est GFR (African American) 62.2 ml/min; Est GFR (Non-African American) 53.7 ml/min; Magnesium 1.8 mg/dl (1.7-2.4); Phosphorus 2.9 mg/dl (2.5-4.9); Potassium 3.7 mmol/L (3.5-5.1)
[2022-04-26] MEDS: CLOPIDOGREL BISULFATE 75 MG TAB PO SCH (08:13)
[2022-04-26] MEDS: LOSARTAN POTASSIUM 50 MG TAB PO SCH (08:13)
[2022-04-26] MEDS: PANTOprazole 40 MG TAB PO SCH (08:13)
[2022-04-26] MEDS: FERROUS SULFATE 325 MG TAB PO SCH ×2 (08:13→21:16)
[2022-04-26] MEDS: METOPROLOL SUCC 50MG EXT REL TAB PO SCH (08:13)
[2022-04-26] MEDS: FUROSEMIDE 40 MG TAB PO SCH (08:13)
[2022-04-26] MEDS: POTASSIUM CHLORIDE PWD 20 MEQ PACK PO SCH (08:14)
[2022-04-26] MEDS: INSULIN ASPART PER UNIT SC SCH ×4 (09:38→20:28)
--- NOTE | 2022-04-26 12:04 | XRay Report ---
LEFT KNEE 2 VIEWS HISTORY: L knee pain COMPARISON: None. FINDINGS: There is no fracture or dislocation. Soft tissues are unremarkable. No radiopaque foreign b odies. No significant knee effusion. Vascular calcifications are noted. There is mild tricompartmenta l osteoarthritis. 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 No fractures. ACT 112: Negative or not required by law. Electronically signed by: Wyatt Leblanc M.D. 04/26/2022 12:02 PM
[2022-04-26] MEDS: DONEPEZIL HCL 10 MG TAB PO SCH (18:10)
[2022-04-26] MEDS ORDERED: POTASSIUM CHLORIDE PWD 20 MEQ PACK PO ONE (18:25)
--- NOTE | 2022-04-26 18:27 | Hospitalist Progress Note ---
Date of Service April 26, 2022 Assessment & Plan (1) Sepsis: (2) Acute UTI: Plan: Sepsis secondary to UTI IV fluid resuscitation in ER with improvement in lactate. Cefepime started on admission Urine culture -positive for E. coli, sensitive to ceftriaxone, switched to ceftriaxone (04/22) (3) Persistent atrial fibrillation: Plan: Chronic atrial fibrillation with contraindications to anticoagulation per outpatient cardiology notes. Continue digoxin per home regimen. (4) S/P coronary artery stent placement: Plan: Chronic diastolic CHF Elevated troponin likely secondary to demand ischemia in setting of sepsis. Echo was ordered to ensure no acute wall motion abnormalities. Continue current home regimen Echo Normal LV chamber size with mild concentric LVH. Normal LV systolic function with abnormal septal wall motion consistent with pacemaker activation, otherwise normal wall motion. EF 55 to 60%. Grade 1 diastolic dysfunction. Aortic valve sclerosis mild, without significant aortic valvular stenosis. Moderate aortic regurg. Calcified mitral apparatus. There is moderate mitral regurg. There is mild mitral stenosis. Moderate tricuspid regurg. Lasix held on admission, and IV fluids given on admission. Increased pulmonary edema overnight, restart Lasix (04/23) 04/24 repeat CXR Anemia -Currently sees Dr. Sykes, scheduled for IV iron infusion as outpatient -Previously diagnosed with peptic ulcer, repeat endoscopy in October showed resolution Continue PPI continue to monitor H&H -No signs of bleeding at this time -Continue home iron supplement -Hemoglobin 6.5, this a.m., April 23, blood consent obtained from the patient and patient's over the phone. 1 unit of PRBC ordered. 04/24 AM Hgb - 7.6 04/25 AM Hgb - 7.5 04/26 AM Hgb 7.7 (5) Type II diabetes mellitus: Plan: A1c 6.7%, well controlled Hold home metformin sliding scale insulin (6) HTN (hypertension): Plan: Chronic, around goal. Continue current medication. 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 Continue to renally dose meds and avoid nephrotoxic substances. (8) Dementia: Plan: High risk for delirium in the hospital and this was explained to the family. Continue good day night cycles and reorient as necessary. Continue donepezil per home regimen. (9) DVT prophylaxis: Plan: Lovenox Full code Disposition- admitted to medicine, plan for rehab Admission and Anticipated Discharge Date Admission Date: April 20, 2022 Subjective Patient seen in follow-up of sepsis secondary to UTI Laying in bed in NAD, yesterday he was sitting in chair Today worked w/ PT - complained of L knee pain - no erythema or edema, XR shows OA Very hard of hearing, communicated via writing. However today communicates more and better, appears better overall. Cont. to use suppl. O2 Encouraged IS Currently denies any complaints. Reports feeling okay. Family reports patient does not speak much usually. Review of Systems Review of Systems: All systems reviewed & are unremarkable except as noted in Subjective Physical Exam Physical Exam: CONSTITUTIONAL: WNWD, generally ill-appearing, NAD EYES: normal conjunctivae, no scleral icterus, ENT: external ear and nose normal NECK:supple RESPIRATORY: normal respiratory effort, some minimal wheezes otherwise CTAB CARDIOVASCULAR: regular rate and rhythm, S1 and 2 heard without murmurs, no peripheral edema CHEST: inspection of chest normal GASTROINTESTINAL: soft, nontender,ND, no guarding MUSCULOSKELETAL: head is normocephalic and atraumatic, moves extremities SKIN: warm and dry NEUROLOGIC:Awake, hard of hearing. Able to answer simple questions appropriately. Communicated mostly via writing. Gives a very short answers. Results & Data Results & Data ([facility]) Vital Signs (Past 12 Hours) Vital Signs Temp Pulse Pulse Resp BP Pulse Ox O2 Del Method 04/26/22 15:48 36.9 C 71 16 165/72 H 96 Room Air 04/26/22 15:41 75 04/26/22 11:14 36.8 C 76 18 170/68 H 94 Nasal Cannula 04/26/22 09:52 Nasal Cannula 04/26/22 07:49 36.7 C 70 18 163/72 H 97 Nasal Cannula 04/26/22 07:37 70 O2 Flow Rate 04/26/22 15:48 04/26/22 15:41 04/26/22 11:14 2 04/26/22 09:52 3 04/26/22 07:49 3 04/26/22 07:37 Laboratory Results 04/26/22 04/26/22 04/26/22 Range/Units 16:28 11:17 07:17 WBC (4.8-10.8) K/ul RBC (4.63-6.08) M/uL Hgb (14.0-18.0) g/dl Hct (40.1-51.0) % MCV (80.0-100.0) fL MCH (25.0-34.0) pg MCHC (32.0-36.0) g/dL RDW Std Deviation (36.4-46.3) fL RDW Coeff of Maricarmen (11.5-14.5) % Plt Count (130-400) K/uL MPV (9.4-12.4) fL Sodium (136-145) mmol/L Potassium (3.5-5.1) mmol/L Chloride (98-107) mmol/L Carbon Dioxide (21-32) mmol/L Anion Gap (3-11) BUN (6-23) mg/dl Creatinine (0.6-1.4) mg/dl Est Cr Clr Drug Dosing ml/min Est GFR ( Amer) ml/min Est GFR (Non-Af Amer) ml/min BUN/Creatinine Ratio (10-20) Glucose (70-99(Fasting)) mg/dl POC Glucose 102 H 123 H 105 H (70-99) mg/dl Calcium (8.5-10.1) mg/dl Phosphorus (2.5-4.9) mg/dl Magnesium (1.7-2.4) mg/dl 04/26/22 04/26/22 04/25/22 Range/Units 06:24 06:24 20:38 WBC 4.42 L (4.8-10.8) K/ul RBC 2.41 L (4.63-6.08) M/uL Hgb 7.7 L (14.0-18.0) g/dl Hct 24.0 L (40.1-51.0) % MCV 99.6 (80.0-100.0) fL MCH 32.0 (25.0-34.0) pg MCHC 32.1 (32.0-36.0) g/dL RDW Std Deviation 58.8 H (36.4-46.3) fL RDW Coeff of Maricarmen 15.9 H (11.5-14.5) % Plt Count 279 (130-400) K/uL MPV 9.5 (9.4-12.4) fL Sodium 143 (136-145) mmol/L Potassium 3.7 (3.5-5.1) mmol/L Chloride 105 (98-107) mmol/L Carbon Dioxide 28 (21-32) mmol/L Anion Gap 10 (3-11) BUN 30 H (6-23) mg/dl Creatinine 1.20 (0.6-1.4) mg/dl Est Cr Clr Drug Dosing 46.7 ml/min Est GFR ( Amer) 62.2 ml/min Est GFR (Non-Af Amer) 53.7 ml/min BUN/Creatinine Ratio 25.0 H (10-20) Glucose 103 H (70-99(Fasting)) mg/dl POC Glucose 129 H (70-99) mg/dl Calcium 7.8 L (8.5-10.1) mg/dl Phosphorus 2.9 (2.5-4.9) mg/dl Magnesium 1.8 (1.7-2.4) mg/dl Medications Administered Current Inpatient Medications Acetaminophen (Acetaminophen 325 Mg Tab) 650 mg PO Q4H PRN PRN Reason: Pain or Fever Stop: 05/20/22 22:09 Last Admin: 04/25/22 23:30 Dose: 650 mg Albuterol (Albut/Ipratrop 3mg/0.5mg Neb 3 Ml Vial) 3 ml NEB QIDR PRN; Protocol PRN Reason: Shortness Of Breath Or Wheezing Stop: 05/21/22 06:59 Last Admin: 04/24/22 18:03 Dose: 3 ml Clopidogrel Bisulfate (Clopidogrel Bisulfate 75 Mg Tab) 75 mg PO QAM [facility] Stop: 05/21/22 08:59 Last Admin: 04/26/22 08:13 Dose: 75 mg Dextrose (Dextrose 50% 50 Ml Syringe) 25 - 50 ml IV UD PRN; Protocol PRN Reason: Hypoglycemia Protocol Stop: 05/20/22 22:09 Digoxin (Digoxin 0.125 Mg Tab) 0.125 mg PO MoWeFr@1600 [facility] Stop: 05/22/22 15:59 Last Admin: 04/25/22 17:11 Dose: 0.125 mg Donepezil HCl (Donepezil Hcl 10 Mg Tab) 10 mg PO QDD [facility] Stop: 05/21/22 16:29 Last Admin: 04/26/22 18:10 Dose: 10 mg Ferrous Sulfate (Ferrous Sulfate 325 Mg Tab) 325 mg PO BID [facility] Stop: 05/23/22 08:59 Last Admin: 04/26/22 08:13 Dose: 325 mg Furosemide (Furosemide 40 Mg Tab) 80 mg PO MoWeFr@0900 ALIN Stop: 05/25/22 08:59 Last Admin: 04/25/22 12:33 Dose: 80 mg Furosemide (Furosemide 40 Mg Tab) 40 mg PO SuTuThSa@0900 ALIN Stop: 05/23/22 08:59 Last Admin: 04/26/22 08:13 Dose: 40 mg Glucagon (Glucagon For Inj 1 Mg Vial) 1 mg SQ UD PRN; Protocol PRN Reason: Hypoglycemia Protocol Stop: 05/20/22 22:09 Glucose (Glucose 40% Gel 15 Gm Tube) 15 - 30 gm PO UD PRN; Protocol PRN Reason: Hypoglycemia Protocol Stop: 05/20/22 22:09 Glucose (Glucose 10 Tab/Tube) 4 - 8 tab PO UD PRN; Protocol PRN Reason: Hypoglycemia Treatment Stop: 05/20/22 22:09 Ceftriaxone Sodium 2,000 mg/ (Dextrose) 70 mls @ 140 mls/hr IV Q24H [facility]; Protocol Stop: 04/30/22 19:59 Last Infusion: 04/25/22 20:17 Dose: Infused Insulin Aspart (Insulin Aspart Per Unit) 0 units SC ACHS [facility] Stop: 05/21/22 07:29 Last Admin: 04/26/22 17:37 Dose: 3 units Latanoprost (Latanoprost 0.005% Op Soln 2.5 Ml Btl) 1 drops OPB PM [facility] Stop: 05/20/22 22:09 Last Admin: 04/25/22 20:31 Dose: 1 drops Losartan Potassium (Losartan Potassium 50 Mg Tab) 50 mg PO QAM [facility] Stop: 05/21/22 08:59 Last Admin: 04/26/22 08:13 Dose: 50 mg Magnesium Oxide (Magnesium Oxide 400 Mg Tab) 400 mg PO PM [facility] Stop: 05/21/22 20:59 Last Admin: 04/25/22 20:31 Dose: 400 mg Metoprolol Succinate (Metoprolol Succ 50mg Ext Rel Tab) 50 mg PO QAM [facility] Stop: 05/21/22 08:59 Last Admin: 04/26/22 08:13 Dose: 50 mg Miscellaneous (Carbohydrates For Hypoglycemia ) 15 - 30 gm PO UD PRN PRN Reason: Hypoglycemia Protocol Stop: 05/20/22 22:09 Last Admin: 04/24/22 06:43 Dose: 15 gm Miscellaneous Information (Pharmacy Glycemic Mgmt Consult) 1 each N/A UD PRN PRN Reason: Consult Stop: 05/24/22 08:45 Pantoprazole Sodium (Pantoprazole 40 Mg Tab) [facility] [place]: 05/21/22 08:59 Last Admin: 04/26/22 08:13 Dose: 40 mg Potassium Chloride (Potassium Chloride Pwd 20 Meq Pack) 20 meq PO QAM [facility] Stop: 05/24/22 12:14 Last Admin: 04/26/22 08:14 Dose: 20 meq Potassium Chloride (Potassium Chloride Pwd 20 Meq Pack) 20 meq PO ONE ONE Stop: 04/26/22 18:26 Simvastatin (Simvastatin 20 Mg Tab) 20 mg PO QPM [facility] Stop: 05/21/22 20:59 Last Admin: 04/25/22 20:31 Dose: 20 mg
[2022-04-26] MEDS: cefTRIAXone SODIUM 2,000 MG in DEXTROSE 5% 50 ML IV SCH (20:47)
[2022-04-26] MEDS: LATANOPROST 0.005% OP SOLN 2.5 ML BTL OPB SCH (21:16)
[2022-04-26] MEDS: SIMVASTATIN 20 MG TAB PO SCH (21:17)
[2022-04-26] MEDS: MAGNESIUM OXIDE 400 MG TAB PO SCH (21:17)
[2022-04-26] MEDS: DICLOFENAC SOD 1% GEL 100 GM TUBE EXT PRN (21:20)
[2022-04-27] MEDS: METOPROLOL SUCC 50MG EXT REL TAB PO SCH (07:59)
[2022-04-27] MEDS: PANTOprazole 40 MG TAB PO SCH (08:00)
[2022-04-27] MEDS: FUROSEMIDE 40 MG TAB PO SCH (08:00)
[2022-04-27] MEDS: FERROUS SULFATE 325 MG TAB PO SCH ×2 (08:00→20:08)
[2022-04-27] MEDS: CLOPIDOGREL BISULFATE 75 MG TAB PO SCH (08:00)
[2022-04-27] MEDS: LOSARTAN POTASSIUM 50 MG TAB PO SCH (08:00)
[2022-04-27] MEDS: POTASSIUM CHLORIDE PWD 20 MEQ PACK PO SCH (08:43)
[2022-04-27] MEDS: INSULIN ASPART PER UNIT SC SCH ×4 (08:45→20:11)
[2022-04-27] MEDS: DICLOFENAC SOD 1% GEL 100 GM TUBE EXT PRN ×2 (10:22→20:08)
[2022-04-27] MEDS: ACETAMINOPHEN 325 MG TAB PO PRN (10:26)
--- NOTE | 2022-04-27 12:23 | Pharmacy Report ---
Pharmacy Glycemic Sign Off Nt - Date of Service April 27, 2022 - Assessment & Plan ASSESSMENT: * Pharmacy was consulted by Dr Petty on 04/24/22 for glycemic control and to write orders per [facility] inpatient glycemic control protocol. * Major changes made by pharmacy to antidiabetic regimen include: * initiation of Novolog * Patient has been receiving/requiring 9 units of insulin per day for adequate glycemic control * BSGs ranging 102- 132 mg/dl * Regimen has only required minor adjustments over the past 48hrs to achieve this level of control * Do not anticipate further changes in patient status that would quickly deteriorate glycemic control (i.e. patient to be NPO for upcoming procedure, steroids tapering, starting tube feedings, etc). * Please see recommendations for outpatient antidiabetic regimen below. PLAN FOR INPATIENT GLYCEMIC CONTROL: No changes needed to current regimen. * Continue NovoLog per scale ACHS/Q6hrs while NPO * Goal range = 120- 160 mg/dl * CF = 25 mg/dl/unit * CR = 1 unit for ever 8 g CHO consumed * Pharmacy is signing off of glycemic consult and will no longer be making adjustments to inpatient regimen. Please feel free to re-consult if needed. Thank you.
[2022-04-27] MEDS ORDERED: COVID-19 VACC, TRIS(PFIZER)/PF 30 MCG/0.3 ML VIAL IM ONE (12:56)
[2022-04-27] MEDS: LIDOCAINE 5% 1 PATCH TD SCH (12:57)
[2022-04-27] MEDS: DIGOXIN 0.125 MG TAB PO SCH (15:14)
[2022-04-27] MEDS: DONEPEZIL HCL 10 MG TAB PO SCH (15:15)
[2022-04-27] MEDS: LATANOPROST 0.005% OP SOLN 2.5 ML BTL OPB SCH (20:08)
[2022-04-27] MEDS: MAGNESIUM OXIDE 400 MG TAB PO SCH (20:08)
[2022-04-27] MEDS: SIMVASTATIN 20 MG TAB PO SCH (20:08)
[2022-04-27] MEDS: cefTRIAXone SODIUM 2,000 MG in DEXTROSE 5% 50 ML IV SCH (21:20)
--- NOTE | 2022-04-27 21:49 | Hospitalist Progress Note ---
Date of Service April 27, 2022 Assessment & Plan (1) Sepsis: (2) Acute UTI: Plan: Sepsis secondary to UTI IV fluid resuscitation in ER with improvement in lactate. Cefepime started on admission Urine culture -positive for E. coli, sensitive to ceftriaxone, switched to ceftriaxone (04/22) Currently on IV ceftriaxone (3) Persistent atrial fibrillation: Plan: Chronic atrial fibrillation with contraindications to anticoagulation per outpatient cardiology notes. Continue digoxin per home regimen. (4) S/P coronary artery stent placement: Plan: Chronic diastolic CHF Elevated troponin likely secondary to demand ischemia in setting of sepsis. Echo was ordered to ensure no acute wall motion abnormalities. Continue current home regimen Echo Normal LV chamber size with mild concentric LVH. Normal LV systolic function with abnormal septal wall motion consistent with pacemaker activation, otherwise normal wall motion. EF 55 to 60%. Grade 1 diastolic dysfunction. Aortic valve sclerosis mild, without significant aortic valvular stenosis. Moderate aortic regurg. Calcified mitral apparatus. There is moderate mitral regurg. There is mild mitral stenosis. Moderate tricuspid regurg. Lasix held on admission, and IV fluids given on admission. Increased pulmonary edema overnight, restart Lasix (04/23) 04/24 repeat CXR showed No change in the cardiomegaly and mild interstitial pulmonary edema. Oxygen titrated off, currently on RA Clinically improves Anemia -Currently sees Dr. Sykes, scheduled for IV iron infusion as outpatient -Previously diagnosed with peptic ulcer, repeat endoscopy in October showed resolution Continue PPI continue to monitor H&H -No signs of bleeding at this time -Continue home iron supplement -Hemoglobin 6.5, this a.m., April 23, blood consent obtained from the patient and patient's over the phone. 1 unit of PRBC ordered. 04/24 AM Hgb - 7.6 04/25 AM Hgb - 7.5 04/27 AM Hgb 7.7 Continue monitor CBC (5) Type II diabetes mellitus: Plan: A1c 6.7%, well controlled Hold home metformin sliding scale insulin (6) HTN (hypertension): Plan: Chronic, around goal. Continue current medication. 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 Continue to renally dose meds and avoid nephrotoxic substances. (8) Dementia: Plan: High risk for delirium in the hospital and this was explained to the family. Continue good day night cycles and reorient as necessary. Continue donepezil per home regimen. (9) DVT prophylaxis: Plan: Lovenox Full code Disposition Waiting for placement to rehab Admission and Anticipated Discharge Date Admission Date: April 20, 2022 Subjective Patient was seen and examined for follow-up of sepsis secondary to UTI Sitting in chair with no acute distress Due to poor hearing function, I was able to communicate with patient by writing complained of L knee pain - no erythema or edema, XR shows OA He was able to titrate off the oxygen Denies any chest pain, palpitation, dizziness and SOB Review of Systems Review of Systems: All systems reviewed & are unremarkable except as noted in Subjective Physical Exam Physical Exam: General- No acute distress Head- atraumatic Eyes- PERRL, EOMI, ENT- Hard to hear Neck- supple, no JVD Lungs- clear to auscultation Heart- regular rhythm; no murmur Abdomen- normal bowel sounds, soft, nontender Extremities- no calf tenderness Neuro- alert, oriented x 3; PERRL, EOMI; no facial palsy; no dysarthria Skin- warm & dry Results & Data Results & Data ([facility]) Vital Signs (Past 12 Hours) Vital Signs Temp Pulse Pulse Resp BP Pulse Ox O2 Del Method 04/27/22 18:46 37.2 C 68 17 164/66 H 91 Room Air 04/27/22 16:08 36.6 C 72 19 165/70 H 95 Room Air 04/27/22 15:14 72 04/27/22 13:44 92 Room Air 04/27/22 13:24 96 Nasal Cannula 04/27/22 11:21 36.8 C 70 18 161/69 H 95 Nasal Cannula O2 Flow Rate 04/27/22 18:46 04/27/22 16:08 04/27/22 15:14 04/27/22 13:44 04/27/22 13:24 1 04/27/22 11:21 2
--- NOTE | 2022-04-27 23:51 | Communication Note ---
Date of Service: April 27, 2022 Made aware by RN of uncontrolled blood pressure. SBP 150-170s since admission. CR 60s Patient asymptomatic as per RN. Px irate when staff enters room. AP Uncontrolled hypertension Add amlodipine to regimen Will relay to AM provider.
[2022-04-28] MEDS: amLODIPine BESYLATE 5 MG TAB PO SCH ×2 (00:19→21:03)
[2022-04-28] MEDS: CLOPIDOGREL BISULFATE 75 MG TAB PO SCH (07:47)
[2022-04-28] MEDS: POTASSIUM CHLORIDE PWD 20 MEQ PACK PO SCH (07:47)
[2022-04-28] MEDS: FUROSEMIDE 40 MG TAB PO SCH (07:48)
[2022-04-28] MEDS: PANTOprazole 40 MG TAB PO SCH (07:48)
[2022-04-28] MEDS: FERROUS SULFATE 325 MG TAB PO SCH ×2 (07:48→21:00)
[2022-04-28] MEDS: LOSARTAN POTASSIUM 50 MG TAB PO SCH (07:48)
[2022-04-28] MEDS: LIDOCAINE 5% 1 PATCH TD SCH (07:49)
[2022-04-28] MEDS: METOPROLOL SUCC 50MG EXT REL TAB PO SCH (07:49)
[2022-04-28] MEDS: INSULIN ASPART PER UNIT SC SCH ×4 (08:20→21:00)
[2022-04-28 08:26] LABS: BUN Creatinine Ratio 22.9 (10-20); Calcium 8.4 mg/dl (8.5-10.1); Creatinine Clr Calc Pharmacy 47.5 ml/min; Est GFR (African American) 63.5 ml/min; Est GFR (Non-African American) 54.8 ml/min; Potassium 3.7 mmol/L (3.5-5.1)
[2022-04-28 08:47] LABS: Hematocrit (blood only) 22.4 % (40.1-51.0); Hemoglobin 7.2 g/dl (14.0-18.0); Mean Corpuscular Hemoglobin 31.9 pg (25.0-34.0); Mean Corpuscular Hgb Conc 32.1 g/dL (32.0-36.0); Mean Corpuscular Volume 99.1 fL (80.0-100.0); Mean Platelet Volume 10.1 fL (9.4-12.4); Platelet Count 386 K/uL (130-400); RDW Standard Deviation 58.5 fL (36.4-46.3); Red Blood Count 2.26 M/uL (4.63-6.08); White Blood Count 6.15 K/ul (4.8-10.8)
[2022-04-28 11:45] LABS: Ferritin 59.8 ng/ml (8-388)
[2022-04-28] MEDS ORDERED: IRON SUCROSE 300 MG in SODIUM CHLORIDE 0.9% 250 ML IV ONE (12:00)
[2022-04-28] MEDS: ACETAMINOPHEN 325 MG TAB PO PRN (12:28)
[2022-04-28] MEDS: DONEPEZIL HCL 10 MG TAB PO SCH (16:08)
[2022-04-28] MEDS: cefTRIAXone SODIUM 2,000 MG in DEXTROSE 5% 50 ML IV SCH (20:52)
[2022-04-28] MEDS: LATANOPROST 0.005% OP SOLN 2.5 ML BTL OPB SCH (21:06)
[2022-04-28] MEDS: MAGNESIUM OXIDE 400 MG TAB PO SCH (21:06)
[2022-04-28] MEDS: SIMVASTATIN 20 MG TAB PO SCH (21:07)
--- NOTE | 2022-04-28 22:15 | Hospitalist Progress Note ---
Date of Service April 28, 2022 Assessment & Plan (1) Sepsis: (2) Acute UTI: Plan: Sepsis secondary to UTI IV fluid resuscitation in ER with improvement in lactate. Cefepime started on admission Urine culture -positive for E. coli, sensitive to ceftriaxone, switched to ceftriaxone (04/22) Currently on IV ceftriaxone. plan to d/c tomorrow (3) Persistent atrial fibrillation: Plan: Chronic atrial fibrillation with contraindications to anticoagulation per outpatient cardiology notes. Continue digoxin per home regimen. (4) S/P coronary artery stent placement: Plan: Chronic diastolic CHF Elevated troponin likely secondary to demand ischemia in setting of sepsis. Echo was ordered to ensure no acute wall motion abnormalities. Continue current home regimen Echo Normal LV chamber size with mild concentric LVH. Normal LV systolic function with abnormal septal wall motion consistent with pacemaker activation, otherwise normal wall motion. EF 55 to 60%. Grade 1 diastolic dysfunction. Aortic valve sclerosis mild, without significant aortic valvular stenosis. Moderate aortic regurg. Calcified mitral apparatus. There is moderate mitral regurg. There is mild mitral stenosis. Moderate tricuspid regurg. Lasix held on admission, and IV fluids given on admission. Increased pulmonary edema overnight, restart Lasix (04/23) 04/24 repeat CXR showed No change in the cardiomegaly and mild interstitial pulmonary edema. Oxygen titrated off, currently on RA Clinically improves Anemia -Currently sees Dr. Sykes, scheduled for IV iron infusion as outpatient -Previously diagnosed with peptic ulcer, repeat endoscopy in October showed resolution Continue PPI continue to monitor H&H -No signs of bleeding at this time -Continue home iron supplement -Hemoglobin 6.5, this a.m., April 23, blood consent obtained from the patient and patient's over the phone. 1 unit of PRBC ordered. 04/24 AM Hgb - 7.6 7 AM Hgb - 7.5 04/28 AM Hgb 7.2 Will give 300mg x1 Iron Venofer today Check FOBT Monitor CBC (5) Type II diabetes mellitus: Plan: A1c 6.7%, well controlled Hold home metformin sliding scale insulin (6) HTN (hypertension): Plan: BP elevated Will increase losartan to 100mg Continue current medication. 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 Continue to renally dose meds and avoid nephrotoxic substances. (8) Dementia: Plan: High risk for delirium in the hospital and this was explained to the family. Continue good day night cycles and reorient as necessary. Continue donepezil per home regimen. (9) DVT prophylaxis: Plan: On SCD due to Low hbg Full code Disposition Waiting for placement to rehab Admission and Anticipated Discharge Date Admission Date: April 20, 2022 Subjective Patient was seen and examined for follow-up of sepsis secondary to UTI, left knee pain and anemia Sitting in chair with no acute distress Due to poor hearing function, I was able to communicate with patient by writing Denies any chest pain, palpitation, dizziness and SOB Review of Systems Review of Systems: All systems reviewed & are unremarkable except as noted in Subjective Physical Exam Physical Exam: General- No acute distress Head- atraumatic Eyes- PERRL, EOMI, ENT- Hard to hear Neck- supple, no JVD Lungs- clear to auscultation Heart- regular rhythm; no murmur Abdomen- normal bowel sounds, soft, nontender Extremities- no calf tenderness Neuro- alert, oriented x 3; PERRL, EOMI; no facial palsy; no dysarthria Skin- warm & dry Results & Data Results & [facility] ([facility]) Vital Signs (Past 12 Hours) Vital Signs Temp Pulse Pulse Resp BP Pulse Ox O2 Del Method 04/28/22 19:15 36.4 C L 70 19 165/66 H 90 Room Air 04/28/22 15:50 71 04/28/22 15:37 36.5 C 72 18 172/76 H 94 Room Air 04/28/22 11:33 36.7 C 72 18 154/70 H 91 Room Air
[2022-04-29] MEDS ORDERED: amLODIPine BESYLATE 5 MG TAB PO SCH (03:50)
[2022-04-29 06:33] LABS: Hematocrit (blood only) 23.8 % (40.1-51.0); Hemoglobin 7.6 g/dl (14.0-18.0); Mean Corpuscular Hemoglobin 31.7 pg (25.0-34.0); Mean Corpuscular Hgb Conc 31.9 g/dL (32.0-36.0); Mean Corpuscular Volume 99.2 fL (80.0-100.0); Mean Platelet Volume 9.6 fL (9.4-12.4); Nucleated RBC # (auto) 0.02 K/uL (0-0); Nucleated RBC % (auto) 0.4 %; Platelet Count 367 K/uL (130-400); RDW Coefficient of Variation 16.2 % (11.5-14.5); RDW Standard Deviation 58.7 fL (36.4-46.3); White Blood Count 5.13 K/ul (4.8-10.8)
[2022-04-29] MEDS: INSULIN ASPART PER UNIT SC SCH ×2 (08:03→12:11)
[2022-04-29] MEDS: FERROUS SULFATE 325 MG TAB PO SCH (08:10)
[2022-04-29] MEDS: FUROSEMIDE 40 MG TAB PO SCH (08:10)
[2022-04-29] MEDS: CLOPIDOGREL BISULFATE 75 MG TAB PO SCH (08:10)
[2022-04-29] MEDS: METOPROLOL SUCC 50MG EXT REL TAB PO SCH (08:10)
[2022-04-29] MEDS: POTASSIUM CHLORIDE PWD 20 MEQ PACK PO SCH (08:10)
[2022-04-29] MEDS: PANTOprazole 40 MG TAB PO SCH (08:10)
[2022-04-29] MEDS: LIDOCAINE 5% 1 PATCH TD SCH (08:11)
[2022-04-29] MEDS ORDERED: LOSARTAN POTASSIUM 50 MG TAB PO SCH (09:00)
--- NOTE | 2022-04-29 13:12 | Discharge Summary ---
Date of Service April 29, 2022 Admission HPI Per Admitting Provider 87 yo M who started with a fever on Monday followed by vomiting and mild cough. Not drinking much and urine is dark with a strong smell. He went to see PCP on 04/19 and a urine culture was positive for gram negative bacteria. He was placed on Cipro and has taken two doses but was worsening at home so family brought him in. He presents to the ER septic. Family noted worsening confusion and significant weakness. 1L NSS was given with improvement. Lactate was elevated to 2.6. Another L was given and he is being continued on IVF. Repeat lactate was 1.9. The patient states that he feels fine. History comes from his and son who are at bedside as the patient has dementia. He does know he is in the hospital but is not sure why. Admission Exam Per Admitting Provider CONSTITUTIONAL: WNWD, vitals as above, generally ill-appearing, NAD EYES: normal conjunctivae, no scleral icterus, ENT: external ear and nose normal NECK: trachea midline, RESPIRATORY: some expiratory wheezing thorughout, no crackles or rales, normal respiratory effort CARDIOVASCULAR: regular rate and rhythm, S1 and 2 heard without murmurs, gallops or rubs, no JVD, no peripheral edema, CHEST: inspection of chest was normal GASTROINTESTINAL: soft, nontender,ND, no guarding MUSCULOSKELETAL: strength 5/5 throughout, head is normocephalic and atraumatic SKIN: warm and dry NEUROLOGIC: CN 2-12 grossly intact, no sensory deficit, normal cognition, normal speech, no tremor PSYCHIATRIC: alert cooperative and oriented to person and place. Principal Diagnosis Sepsis secondary to urinary tract infecetion Persistent atrial fibrillation: S/P coronary artery stent placement: Chronic diastolic CHF Anemia Type II diabetes mellitus: HTN (hypertension): CKD stage 3 Dementia: Discharge Exam General- No acute distress Head- atraumatic Eyes- PERRL, EOMI, ENT- Hard to hear Neck- supple, no JVD Lungs- clear to auscultation Heart- regular rhythm; no murmur Abdomen- normal bowel sounds, soft, nontender Extremities- no calf tenderness Neuro- alert, oriented x 3; PERRL, EOMI; no facial palsy; no dysarthria Skin- warm & dry Discharge Data Allergies Allergy/AdvReac Type Severity Reaction Status Date / Time Sulfa (Sulfonamide Allergy Severe Unresponsiv Verified 04/20/22 19:57 Antibiotics) e FELECIA Inhibitors Allergy Unknown Unknown Verified 04/20/22 19:57 prednisone AdvReac Intermediate BLISTERS Verified 04/20/22 19:57 IN THROAT pseudoephedrine AdvReac Intermediate TEMP ELEV Verified 04/20/22 19:57 Consultations 04/20/22 19:55 ED Decision to Admit Stat Ordered Studies LEFT KNEE 2 VIEWS HISTORY: L knee pain COMPARISON: None. FINDINGS: There is no fracture or dislocation. Soft tissues are unremarkable. No radiopaque foreign bodies. No significant knee effusion. Vascular calcifications are noted. There is mild tricompartmental osteoarthritis. 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 No fractures. ACT 112: Negative or not required by law. Electronically signed by: Wyatt Leblanc M.D. 04/26/2022 12:02 PM Dictated:04/26/22 1201 Transcribed: 04/26/22 1201 XR chest 1V portable HISTORY: follow up COMPARISON: Chest 04/02/2022. FINDINGS: The cardia silhouette remains enlarged. There is mild interstitial pulmonary edema. This is similar to the prior study. No new focal lung consolidations identified. No pleural fusions. No pneumothorax. There is a left- sided pacemaker/defibrillator. Poststernotomy changes are again noted. IMPRESSION: No change in the cardiomegaly and mild interstitial pulmonary edema. ACT 112: Negative or not required by law. Electronically signed by: Wyatt Leblanc M.D. 04/24/2022 2:04 PM Dictated:04/24/22 1403 Transcribed: 04/24/22 1403 SINGLE VIEW CHEST CLINICAL HISTORY: Dyspnea and wheezing. FINDINGS: An AP, portable, upright chest radiograph is compared to study dated 04/20/2022. The patient is status post midline sternotomy. A 3-lead cardiac AICD is unchanged in position and partially obscures the left upper chest. The heart is enlarged noting atherosclerotic calcification of the thoracic aorta. There is pulmonary vascular congestion. Mild airspace opacities are seen bilaterally. Scarring/atelectasis is noted at the lung bases. No large pleural effusion or pneumothorax is seen. The skeletal structures are osteopenic. The bony thorax is grossly intact. IMPRESSION: 1. Cardiomegaly and AICD with evidence of congestive failure. 2. Bilateral airspace opacities likely represent pulmonary edema. Correlate clinically for evidence of a superimposed infectious/inflammatory pneumonitis. ACT 112: Negative or not required by law. Electronically signed by: Troy Wood M.D. 04/22/2022 10:19 PM Dictated:04/22/222217 Transcribed: 04/22/222217 SINGLE VIEW CHEST CLINICAL HISTORY: Sepsis. FINDINGS: An AP, portable, upright chest radiograph is compared to study dated 07/21/2021. The patient is status post midline sternotomy. A multilead cardiac AICD is unchanged in position and partially obscures the left upper chest. The heart is enlarged noting atherosclerotic calcification of the thoracic aorta. There is mild pulmonary vascular congestion. A calcified granuloma is noted in the left upper lobe. Chronic interstitial thickening is similar to previous. The lungs and pleural spaces are clear noting mild bibasilar atelectasis. No pneumothorax is seen. The skeletal structures are osteopenic. The bony thorax is grossly intact. IMPRESSION: 1. Cardiomegaly and AICD with mild pulmonary vascular congestion. 2. No airspace consolidation or large pleural effusion is identified. ACT 112: Negative or not required by law. Electronically signed by: Troy Wood M.D. 04/20/2022 8:20 PM Dictated:04/20/222018 Transcribed: 04/20/222018 Hospital Course (1) Sepsis: (2) Acute UTI: Sepsis secondary to UTI IV fluid resuscitation in ER with improvement in lactate. Cefepime started on admission Urine culture -positive for E. coli, sensitive to ceftriaxone, switched to ceftriaxone (04/22) Completed the course of IV ceftriaxone. (3) Persistent atrial fibrillation: Chronic atrial fibrillation with contraindications to anticoagulation per outpatient cardiology notes. Continue digoxin and metoprolol (4) S/P coronary artery stent placement: Chronic diastolic CHF Elevated troponin likely secondary to demand ischemia in setting of sepsis. Echo was ordered to ensure no acute wall motion abnormalities. Continue current home regimen Echo Normal LV chamber size with mild concentric LVH. Normal LV systolic function with abnormal septal wall motion consistent with pacemaker activation, otherwise normal wall motion. EF 55 to 60%. Grade 1 diastolic dysfunction. Aortic valve sclerosis mild, without significant aortic valvular stenosis. Moderate aortic regurg. Calcified mitral apparatus. There is moderate mitral regurg. There is mild mitral stenosis. Moderate tricuspid regurg. Lasix held on admission, and IV fluids given on admission. Increased pulmonary edema overnight, restart Lasix (04/23) 04/24 repeat CXR showed No change in the cardiomegaly and mild interstitial pulmonary edema. Oxygen titrated off, currently on RA Continue Lasix 40mg alternating with lasix 80mg every other day Clinically improves Anemia -Currently sees Dr. Sykes, scheduled for IV iron infusion as outpatient -Previously diagnosed with peptic ulcer, repeat endoscopy in October showed resolution +FOBT Last colonoscopy on 03/2020 with multiple polyps. GI was notified for the multiple polyps to arrange for repeat colonoscopy outpatient. Continue PPI continue to monitor H&H -No signs of bleeding at this time -Continue home iron supplement -Hemoglobin 6.5, this a.m., April 23, blood consent obtained from the patient and patient's over the phone. 1 unit of PRBC ordered. 04/24 AM Hgb - 7.6 04/25 AM Hgb - 7.5 04/29 AM Hgb 7.6 Received IV Venofer 300mg x1 on 04/28/22 Pt was scheduled to see hematology today Dr. Sykes. Case discussed with Hematology Dr. Sykes that will arrange for outpatient iron infusion next week Check CBC in 1 week (5) Type II diabetes mellitus: A1c 6.7%, well controlled Hold home metformin sliding scale insulin (6) HTN (hypertension): BP elevated Losartan increased to 100mg Continue amlodipine 5mg daily Continue monitor BP (7) CKD stage 3 due to type 2 diabetes mellitus: Chronic, creatinine is at baseline of 1.4-1.5. Continue to renally dose meds and avoid nephrotoxic substances. stable Left knee pain Left knee xray showed mild tricompartmental osteoarthritis within the left knee. No fractures. Continue Lidocaine patch and diclofenac Continue PT/OT eval fall precaution (8) Dementia: High risk for delirium in the hospital and this was explained to the family. Continue good day night cycles and reorient as necessary. Continue donepezil per home regimen. (9) DVT prophylaxis: On SCD due to Low hgb Full code Disposition Discharge to [facility] today Total Time Total Time Spent Total Time Spent (In Minutes): 40 minutes Discharge Plan Discharge Items Patient Disposition: Transfer Care Home Fac Reason For Visit: SEPSIS Discharge Diagnosis: Sepsis secondary to urinary tract infecetion Persistent atrial fibrillation: S/P coronary artery stent placement: Chronic diastolic CHF Anemia Type II diabetes mellitus: HTN (hypertension): CKD stage 3 Dementia: Activity: Resume your previous activity Non-emergency contact: Primary Care Provider and Oncologist Call non-emergency contact if: you have any medication questions Follow-up/Referrals: Muriel Chowdary MD [Primary Care Provider] - Diet: Carb Consistent or DM2 Addtl Attending Provider Instructions: Follow up with your primary care provider once discharge from [facility] Follow up with Hematology dr. Sykes in 1 to 2 weeks to arrange for Iron infusion Follow up with gastroenterology to arrange for possible outpatient colonoscopy for the positive FOBT. (gastroenterology awared to arrange for the appointment) Check CBC in 1 week to monitor your hemoglobin Continue physical and occupational therapy Continue monitor your blood pressure Fall precaution Losartan increased to 10mg daily Continue lasix 40mg on Mon/Mon/Mon/Mon and Lasix 80mg on Monday/Mon/Monday Pending Studies at Discharge: No Stand-Alone Forms: My [facility] Skilled Items Patient informed of condition?: Yes DNR: No Discharge Level of Care: Skilled Communicable Disease: No Discharge Prognosis: Stable Lines: None Urinary Catheter: No Medications and DC Order Prescriptions: New amlodipine [Norvasc] 5 mg Tablet 5 mg PO DAILY Qty: 30 0RF lidocaine 5 % Adhesive Patch,Medicated 1 patch transdermal QAM Qty: 15 0RF diclofenac sodium [Voltaren Arthritis Pain] 1 % Gel 2 g EXT QID PRN (Reason: pain) Qty: 100 0RF losartan 50 mg Tablet 100 mg PO QAM Qty: 30 0RF Continued dutasteride 0.5 mg capsule 0.5 mg PO DAILY Qty: 90 3RF furosemide [Lasix] 40 mg Tablet See Rx Instructions .ROUTE .COMPLEX Rx Instructions: 40 mg orally; TAKES 80 MG ON MON, MON, & MON. THEN TAKES 40 MG ON MON, , , & SAT. acetaminophen [Tylenol Extra Strength] 500 mg Tablet 500 mg PO Q6 PRN (Reason: Pain) fluticasone propion-salmeterol [Advair Diskus] 250-50 mcg/dose Blister With Device 1 inh INHALATION [facility] metoprolol succinate [Toprol XL] 50 mg Tablet Extended Release 24 Hr 50 mg PO QAM metformin 850 mg Tablet 850 mg PO BIDM potassium chloride [Klor-Con M20] 20 mEq Tablet,Er Particles/Crystals 20 meq PO QAM magnesium oxide 400 mg (241.3 mg magnesium) Tablet 400 mg PO PM digoxin 125 mcg Tablet 125 mcg PO 3XWK Rx Instructions: take 1 tablet mon,wed,fri albuterol sulfate [Proventil HFA] 90 mcg/actuation Hfa Aerosol Inhaler 2 puff INHALATION QID PRN (Reason: Shortness Of Breath) latanoprost 0.005 % Drops 1 drp OPB PM albuterol sulfate 1.25 mg/3 mL Solution For Nebulization 1.25 mg INHALATION Q4H PRN (Reason: Wheezing) ferrous sulfate [FeroSul] 325 mg (65 mg iron) Tablet 325 mg PO BID Qty: 0 0RF pantoprazole 40 mg tablet,delayed release (DR/EC) 40 mg PO QAM donepezil 10 mg tablet 10 mg PO QDD Rx Instructions: take with largest meal of day clopidogrel 75 mg tablet 75 mg PO QAM simvastatin 20 mg tablet 20 mg PO QPM triamcinolone acetonide 0.1 % Ointment 1 applic TOPICAL BID PRN (Reason: rash or more instead of scratching) Discontinued ciprofloxacin HCl 250 mg tablet 250 mg PO [facility] Rx Instructions: ordered 04/19/22 for 7 days losartan 50 mg tablet 50 mg PO QAM Discharge Orders: Discharge Order (Routine); Ordered 04/29/22 Ordered By: Rene Hancock/Other Patient Handouts: Managing Type 2 Diabetes Admission Data Admit Date/Time: 04/20/22 20:08 Attending Provider: Rene Aquino Admit Provider: Sharri Rodgers Primary Care Provider: Muriel Chowdary Other Providers: Sharri Rodgers ; [facility] ; Eddie Petty Other Interventions: Discharge Summary Assessment (RN) Last Done: 04/29/22 12:35
== END 2022-04-29 14:06 | DRG 872 ==
LOC: ED 18:38 → SUATTDRO 20:08 → 2S 20:08
DX: Z95.1 Presence of aortocoronary bypass graft; I49.5 Sick sinus syndrome; H40.9 Unspecified glaucoma; F03.90 Unspecified dementia, unspecified severity, without behavioral disturbance, psychotic disturbance, mood disturbance, and anxiety; I48.19 Other persistent atrial fibrillation; D64.9 Anemia, unspecified; H91.93 Unspecified hearing loss, bilateral; J44.9 Chronic obstructive pulmonary disease, unspecified; Z79.84 Long term (current) use of oral hypoglycemic drugs; I25.5 Ischemic cardiomyopathy; A41.9 Sepsis, unspecified organism; Z83.3 Family history of diabetes mellitus; E87.2 Acidosis; Z79.02 Long term (current) use of antithrombotics/antiplatelets; M25.562 Pain in left knee; I50.32 Chronic diastolic (congestive) heart failure; I24.8 Other forms of acute ischemic heart disease; N39.0 Urinary tract infection, site not specified; E11.22 Type 2 diabetes mellitus with diabetic chronic kidney disease; Z88.8 Allergy status to other drugs, medicaments and biological substances; I25.10 Atherosclerotic heart disease of native coronary artery without angina pectoris; N40.0 Benign prostatic hyperplasia without lower urinary tract symptoms; Z95.5 Presence of coronary angioplasty implant and graft; Z79.51 Long term (current) use of inhaled steroids; N18.30 Chronic kidney disease, stage 3 unspecified; Z79.899 Other long term (current) drug therapy; E78.5 Hyperlipidemia, unspecified; Z88.2 Allergy status to sulfonamides; I13.0 Hypertensive heart and chronic kidney disease with heart failure and stage 1 through stage 4 chronic kidney disease, or unspecified chronic kidney disease; K21.9 Gastro-esophageal reflux disease without esophagitis; Z95.810 Presence of automatic (implantable) cardiac defibrillator

== ENCOUNTER 2023-04-20 16:41 | Inpatient (IN) ==
--- NOTE | 2023-04-20 16:44 | ED Triage Note ---
Date of Service April 20, 2023 History of Present Illness This patient was briefly evaluated while in triage. An abbreviated physical exam was performed. This patient is a 88-year-old Male who presents to the ED for evaluation of low hemoglobin. The patient has multiple myeloma and sees Dr. Sykes for this. He gets labs drawn regularly and was contacted today that his hemoglobin is low and he needs a blood transfusion. Family reports he has been weak and short of breath. Patient denies complaints. Physical Exam VITALS: Vitals are noted on the nurse's note and reviewed by myself. GENERAL: This is an 88-year-old male, in no acute distress, chronically unwell appearing. SKIN: The skin was without rashes. HEART: Regular rate and rhythm without murmurs gallops or rubs. LUNGS: Clear to auscultation bilaterally without wheezes, rales or rhonchi. ABDOMEN: Positive bowel sounds x 4. Soft, nontender to palpation. NEURO: Patient was alert and oriented to person place and time. Initial orders for labs and / or imaging were placed and patient was placed in the waiting area until a bed is available. Please see further documentation for the full ED course.
--- NOTE | 2023-04-20 17:15 | Emergency Department Note ---
History of Present Illness General Chief complaint: Referred by Doctor Stated complaint: UNIT OF BLOOD NEEDED, REF BY Time Seen by Provider: 04/20/23 17:01 Source: family (Son and at bedside) History of Present Illness Provider complaint: Weakness anemia shortness of breath 88-year-old male presents emergency department for weakness anemia and shortness of breath. Patient has dementia and is deaf and cannot give history. History was given by son and at bedside. They state that the patient was referred here by Dr. Sykes [facility] oncology for low hemoglobin. He states that the patient has been increasingly weak and short of breath. They report that the patient fell on Monday and hit his head. Home Medications Medication Instructions Recorded Confirmed Type albuterol sulfate 90 mcg/actuation 2 puff inhalation QID PRN 06/07/18 08/28/22 History aerosol inhaler (Proventil HFA) Shortness Of Breath digoxin 125 mcg (0.125 mg) tablet 125 mcg PO 3XWK 06/07/18 08/28/22 History fluticasone 250 mcg-salmeterol 50 1 inh inhalation AMHS 06/07/18 08/28/22 Hist ory mcg/dose blistr powdr for inhalation (Advair Diskus) magnesium oxide 400 mg (241.3 mg 400 mg PO PM 06/07/18 08/28/22 History magnesium) tablet potassium chloride 20 mEq 20 meq PO QAM 06/07/18 08/28/22 History tablet,extended release(part/cryst) (Klor-Con M) furosemide 40 mg tablet (Lasix) See Rx Instructions .Route .COMPLEX 04/25/19 08/28/22 History latanoprost 0.005 % eye drops 1 drp OPB QAM 03/24/20 08/28/22 History albuterol sulfate 1.25 mg/3 mL 1.25 mg inhalation Q4H PRN Wheezing 04/21/21 08/28/22 History solution for nebulization pantoprazole 40 mg tablet,delayed 40 mg PO QAM 10/22/21 08/28/22 History release dutasteride 0.5 mg capsule 0.5 mg PO DAILY #90 caps 01/03/22 08/28/22 Rx clopidogrel 75 mg tablet 75 mg PO QAM 04/20/22 08/28/22 History simvastatin 20 mg tablet 20 mg PO QAM 04/20/22 08/28/22 History triamcinolone acetonide 0.1 % 1 applic topical BID PRN rash or 04/20/22 08/28/22 History topical ointment more instead of scratching diclofenac sodium 1 % topical gel 2 g EXT QID PRN pain #100 grams 04/29/2208/03 Rx (Voltaren Arthritis Pain) acetaminophen 325 mg tablet 325 mg PO Q4 PRN Fever Or Pain 08/28/22 08/28/22 History amlodipine 2.5 mg tablet 2.5 mg PO QAM 08/28/22 08/28/22 History ferrous sulfate 325 mg (65 mg 325 mg PO Q OTHER DAY 08/28/22 08/28/22 History iron) tablet (FeroSul) hydrocodone 5 mg-acetaminophen 325 1 tab PO Q6H PRN Pain, Severe 08/28/22 08/28/22 History mg tablet losartan 50 mg tablet 50 mg PO QAM 08/28/22 08/28/22 History metoprolol succinate 50 mg 50 mg PO DAILY 08/28/22 08/28/22 History tablet,extended release 24 hr multivitamin 1 tab PO DAILY 08/28/22 08/28/22 History methenamine hippurate 1 gram tablet 1 g PO BID 30 days #60 tabs 11/25/22 Rx Allergies Allergy/AdvReac Type Severity Reaction Status Date / Time Sulfa (Sulfonamide Allergy Severe Unresponsiv Verified 08/28/22 17:56 Antibiotics) e FELECIA Inhibitors Allergy Unknown Unknown Verified 08/28/22 17:56 prednisone AdvReac Intermediate BLISTERS Verified 08/28/22 17:56 IN THROAT pseudoephedrine AdvReac Intermediate TEMP ELEV Verified 05/26/22 13:51 Past Med/Surg History Medical History Anemia Aortic aneurysm unsure of last ultrasound/scan -- no surgical intervention. Moderate aortic root dilatation noted on 2018 echo. No AAA noted on [address] Aortic valve insufficiency Moderate-severe per 11/2018 echo BPH (benign prostatic hyperplasia) CAD (coronary artery disease) (08/21/14) S/p CABG July 2000 receiving KAUR graft to LAD, saphenous vein graft sequentially from the obtuse marginal to diagonal. S/p stenting of prox Cx 2013 Chronic back pain CKD stage 3 due to type 2 diabetes mellitus no specialist COPD (chronic obstructive pulmonary disease) well controlled rare res inh use Dementia mild at present Dementia Dyslipidemia GERD (gastroesophageal reflux disease) GI bleed per pt's > had 3 units PRBC's [facility] [place] during admission in Jul 2021 Glaucoma Hearing deficit [place] History of colon polyps HTN (hypertension) Ischemic cardiomyopathy EF normalized, most recently 55-60% on 11/2018 echo On home oxygen therapy 2 LPM QHS Osteoarthritis Persistent atrial fibrillation Anticoagulation contraindicated per cardiology > ICD Presence of combination internal cardiac defibrillator (ICD) and pacemaker follows w/ Dr. Sanford > Medtr[employer] > gets checked electronically > PMH provided by , eduardo when last checked in office. Severe sepsis Tachy-lorna syndrome S/p dual chamber pacer with upgrade to pacer/ICD 2014 Type II diabetes mellitus NIDDM Surgical History History of cardiac cath 1999 --> CABG 2013 - stent - [facility] History of cataract surgery bilat History of colonoscopy History of esophagogastroduodenoscopy (EGD) History of prostate surgery non cancerous History of tonsillectomy History of tooth extraction S/P CABG x 3 1999 S/P coronary artery stent placement July 2014 with stenting of the proximal circumflex Family History Grandmother Diabetes Mother Colon cancer Other Melanoma No family history of adverse response to anesthesia Social History Smoking Status: Former smoker Tobacco Type: Cigarettes Second Hand Exposure: No; Do You Dip or Chew Tobacco: No; Hx Alcohol Use: No (unknown) Preferred Language: Bangladeshi Communication Ability: Effective Communication Ability Comment: [place] despite b/l [place] 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: Voice Beliefs That Will Affect Care: None marital status: Current Living Situation: Spouse How many Children do You have: 2 Feels Safe at Home: Yes Assistive Devices: None Physical Exam Vital Signs Vital Signs - 24 hr 04/20/23 16:43 04/20/23 17:02 04/20/23 17:19 Temperature 36.8 C Temperature Source Temporal Artery Scan Pulse Rate 77 69 Pulse Rate [Left Finger] Pulse Rhythm [Left Finger] Respiratory Rate 16 22 Respiratory Effort / Characteristics Non-Labored Spontaneous Respiratory Depth Normal Normal Respiratory Pattern Regular Blood Pressure 135/64 Blood Pressure [Left Arm] Blood Pressure Mean 87 Blood Pressure Mean [Left Arm] Blood Pressure Position [Left Arm] Pulse Oximetry 98 94 Oxygen Delivery Method Room Air Sepsis Recent Fever Within 48 Hours No Sepsis New/Unexplained Change in Mental Status No Sepsis Action Taken by Nursing No Action Required 04/20/23 18:15 04/20/23 18:21 04/20/23 18:32 Temperature 37.2 C 36.8 C Temperature Source Oral Oral Pulse Rate 70 70 Pulse Rate [Left Finger] 71 Pulse Rhythm [Left Finger] Respiratory Rate 20 18 22 Respiratory Effort / Characteristics Respiratory Depth Respiratory Pattern Blood Pressure 146/67 H 139/69 Blood Pressure [Left Arm] 94/78 L Blood Pressure Mean 93 92 Blood Pressure Mean [Left Arm] 83 Blood Pressure Position [Left Arm] Lying Pulse Oximetry 98 97 96 Oxygen Delivery Method Sepsis Recent Fever Within 48 Hours Sepsis New/Unexplained Change in Mental Status Sepsis Action Taken by Nursing 04/20/23 19:02 Temperature 36.9 C Temperature Source Oral Pulse Rate Pulse Rate [Left Finger] 70 Pulse Rhythm [Left Finger] Regular Respiratory Rate 16 Respiratory Effort / Characteristics Non-Labored Respiratory Depth Normal Respiratory Pattern Regular Blood Pressure Blood Pressure [Left Arm] 142/69 H Blood Pressure Mean Blood Pressure Mean [Left Arm] 93 Blood Pressure Position [Left Arm] Pulse Oximetry 96 Oxygen Delivery Method Room Air Sepsis Recent Fever Within 48 Hours Sepsis New/Unexplained Change in Mental Status Sepsis Action Taken by Nursing Physical Exam HENT: Exam performed. - Head: Left eye periorbital ecchymosis. NECK: Normal range of motion. Neck supple. No JVD present. CV: Normal rate, regular rhythm, normal heart sounds and intact distal pulses. There is no peripheral edema. Palpable radial pulses bue. PULM/CHEST: Effort normal and breath sounds normal. No respiratory distress. No stridor. no wheezes. no rales. ABD: The abdomen is soft. There is no tenderness. MUSC: Pelvis stable. NEURO: Motor and sensation grossly intact. SKIN: Skin is warm and dry. He is not diaphoretic. Course Course 170: The patient was evaluated in room B8. A complete history and physical exam was performed Critical Care Time Critical Care Time: Yes Total Critical Care Time: 54 I have personally spent greater than 54 minutes of critical care time in the direct management of this patient. This includes bedside care, interpretation of diagnostic studies, and testing, discussion with consultants, patient, and family members, and other required patient management activities. This 54 minutes is in excess of all separately billable procedures. Medical Decision Making Laboratory Data Attestation: I reviewed the patient's lab results. 04/20/23 16:58 04/20/23 16:58 Lab Results 04/20/23 04/20/23 04/20/23 Range/Units 16:53 16:53 16:58 WBC 6.19 (4.8-10.8) K/ul RBC 1.59 L (4.70-6.10) M/uL Hgb 5.3 L* (14.0-18.0) g/dl Hct 17.5 L* (42.0-52.0) % MCV 110.1 H (80.0-100.0) fL MCH 33.3 (25.0-34.0) pg MCHC 30.3 L (32.0-36.0) g/dL RDW Std Deviation 70.7 H (36.4-46.3) fL RDW Coeff of Maricarmen 18.3 H (11.5-14.5) % Plt Count 254 (130-400) K/uL MPV 9.4 (9.4-12.4) fL Immature Gran % (Auto) 0.6 % Neut % (Auto) 65.4 % Lymph % (Auto) 16.2 % [place] % (Auto) 13.9 % Eos % (Auto) 3.6 % Baso % (Auto) 0.3 % Neut # (Auto) 4.05 (1.40-6.50) K/uL Lymph # (Auto) 1.00 L (1.2-3.4) K/uL [place] # (Auto) 0.86 H (0.11-0.59) K/uL Eos # (Auto) 0.22 (0-0.50) K/uL Baso # (Auto) 0.02 (0-0.2) K/uL Immature Gran # (Auto) 0.04 (0.01-0.20) K/uL Absolute Nucleated RBC 0.04 (0-0.12) K/uL Nucleated RBC % (auto) 0.6 % Polychromasia 1+ Macrocytosis Present Rouleaux 1+ PT 11.4 (9.0-12.0) Seconds INR 1.0 (0.9-1.1) APTT 21.9 (21.0-31.0) Seconds PTT Ratio 0.8 Sodium (136-145) mmol/L Potassium (3.5-5.1) mmol/L Chloride (98-107) mmol/L Carbon Dioxide (21-32) mmol/L Anion Gap (3-11) BUN (6-23) mg/dl Creatinine (0.6-1.4) mg/dl Est Cr Clr Drug Dosing ml/min Est GFR ( Amer) ml/min Est GFR (Non-Af Amer) ml/min BUN/Creatinine Ratio (10-20) Glucose (70-99(Fasting)) mg/dl Calcium (8.6-10.3) mg/dl Magnesium (1.7-2.4) mg/dl Total Bilirubin (0.2-1.0) mg/dl AST (13-39) U/L ALT (7-52) U/L Alkaline Phosphatase (34-104) U/L Troponin I High Sens (0-20) pg/ml Total Protein (6.0-8.3) gm/dl Albumin (3.4-5.0) gm/dl Globulin (2.5-4.0) gm/dl Albumin/Globulin Ratio (0.9-2) Urine Color Urine Appearance (Clear) Urine pH (4.5-7.5) Ur Specific [place] (1.000-1.030) Urine Protein (Negative) Urine Glucose (UA) (Negative) Urine Ketones (Negative) Urine Blood (Negative) Urine Nitrite (Negative) Urine Bilirubin (Negative) Urine Urobilinogen (Negative) Ur Leukocyte Esterase (Negative) Digoxin 0.5 L (0.8-2.0) ng/ml SARS-CoV-2, RNA, NAAT (NEGATIVE) Blood Type Antibody Screen Crossmatch 04/20/23 04/20/23 04/20/23 Range/Units 16:58 16:58 17:20 WBC (4.8-10.8) K/ul RBC (4.70-6.10) M/uL Hgb (14.0-18.0) g/dl Hct (42.0-52.0) % MCV (80.0-100.0) fL MCH (25.0-34.0) pg MCHC (32.0-36.0) g/dL RDW Std Deviation (36.4-46.3) fL RDW Coeff of Maricarmen (11.5-14.5) % Plt Count (130-400) K/uL MPV (9.4-12.4) fL Immature Gran % (Auto) % Neut % (Auto) % Lymph % (Auto) % [place] % (Auto) % Eos % (Auto) % Baso % (Auto) % Neut # (Auto) (1.40-6.50) K/uL Lymph # (Auto) (1.2-3.4) K/uL [place] # (Auto) (0.11-0.59) K/uL Eos # (Auto) (0-0.50) K/uL Baso # (Auto) (0-0.2) K/uL Immature Gran # (Auto) (0.01-0.20) K/uL Absolute Nucleated RBC (0-0.12) K/uL Nucleated RBC % (auto) % Polychromasia Macrocytosis Rouleaux PT (9.0-12.0) Seconds INR (0.9-1.1) APTT (21.0-31.0) Seconds PTT Ratio Sodium 143 (136-145) mmol/L Potassium 4.1 (3.5-5.1) mmol/L Chloride 107 (98-107) mmol/L Carbon Dioxide 24 (21-32) mmol/L Anion Gap 12 H (3-11) BUN 38 H (6-23) mg/dl Creatinine 1.71 H (0.6-1.4) mg/dl Est Cr Clr Drug Dosing 34.9 ml/min Est GFR ( Amer) 40.3 ml/min Est GFR (Non-Af Amer) 34.7 ml/min BUN/Creatinine Ratio 22.2 H (10-20) Glucose 186 H (70-99(Fasting)) mg/dl Calcium 8.6 (8.6-10.3) mg/dl Magnesium 2.0 (1.7-2.4) mg/dl Total Bilirubin 0.4 (0.2-1.0) mg/dl AST 14 (13-39) U/L ALT 6 L (7-52) U/L Alkaline Phosphatase 31 L (34-104) U/L Troponin I High Sens 20.7 H (0-20) pg/ml Total Protein 7.7 (6.0-8.3) gm/dl Albumin 3.1 L (3.4-5.0) gm/dl Globulin 4.6 H (2.5-4.0) gm/dl Albumin/Globulin Ratio 0.7 L (0.9-2) Urine Color Urine Appearance (Clear) Urine pH (4.5-7.5) Ur Specific [place] (1.000-1.030) Urine Protein (Negative) Urine Glucose (UA) (Negative) Urine Ketones (Negative) Urine Blood (Negative) Urine Nitrite (Negative) Urine Bilirubin (Negative) Urine Urobilinogen (Negative) Ur Leukocyte Esterase (Negative) Digoxin (0.8-2.0) ng/ml SARS-CoV-2, RNA, NAAT NEGATIVE (NEGATIVE) Blood Type A Positive Antibody Screen NEGATIVE Crossmatch See Detail 04/20/23 Range/Units 18:18 WBC (4.8-10.8) K/ul RBC (4.70-6.10) M/uL Hgb (14.0-18.0) g/dl Hct (42.0-52.0) % MCV (80.0-100.0) fL MCH (25.0-34.0) pg MCHC (32.0-36.0) g/dL RDW Std Deviation (36.4-46.3) fL RDW Coeff of Maricarmen (11.5-14.5) % Plt Count (130-400) K/uL MPV (9.4-12.4) fL Immature Gran % (Auto) % Neut % (Auto) % Lymph % (Auto) % [place] % (Auto) % Eos % (Auto) % Baso % (Auto) % Neut # (Auto) (1.40-6.50) K/uL Lymph # (Auto) (1.2-3.4) K/uL [place] # (Auto) (0.11-0.59) K/uL Eos # (Auto) (0-0.50) K/uL Baso # (Auto) (0-0.2) K/uL Immature Gran # (Auto) (0.01-0.20) K/uL Absolute Nucleated RBC (0-0.12) K/uL Nucleated RBC % (auto) % Polychromasia Macrocytosis Rouleaux PT (9.0-12.0) Seconds INR (0.9-1.1) APTT (21.0-31.0) Seconds PTT Ratio Sodium (136-145) mmol/L Potassium (3.5-5.1) mmol/L Chloride (98-107) mmol/L Carbon Dioxide (21-32) mmol/L Anion Gap (3-11) BUN (6-23) mg/dl Creatinine (0.6-1.4) mg/dl Est Cr Clr Drug Dosing ml/min Est GFR ( Amer) ml/min Est GFR (Non-Af Amer) ml/min BUN/Creatinine Ratio (10-20) Glucose (70-99(Fasting)) mg/dl Calcium (8.6-10.3) mg/dl Magnesium (1.7-2.4) mg/dl Total Bilirubin (0.2-1.0) mg/dl AST (13-39) U/L ALT (7-52) U/L Alkaline Phosphatase (34-104) U/L Troponin I High Sens (0-20) pg/ml Total Protein (6.0-8.3) gm/dl Albumin (3.4-5.0) gm/dl Globulin (2.5-4.0) gm/dl Albumin/Globulin Ratio (0.9-2) Urine Color Yellow Urine Appearance Clear (Clear) Urine pH 5.0 (4.5-7.5) Ur Specific [place] 1.012 (1.000-1.030) Urine Protein Negative (Negative) Urine Glucose (UA) Negative (Negative) Urine Ketones Negative (Negative) Urine Blood Negative (Negative) Urine Nitrite Negative (Negative) Urine Bilirubin Negative (Negative) Urine Urobilinogen Negative (Negative) Ur Leukocyte Esterase Negative (Negative) Digoxin (0.8-2.0) ng/ml SARS-CoV-2, RNA, NAAT (NEGATIVE) Blood Type Antibody Screen Crossmatch Imaging Data Attestation: I personally reviewed and interpreted this imaging study as follows: My Impression: Chest x-ray: Cardiomegaly with pulmonary vascular congestion Radiologist's Impression: Chest X-Ray 04/20/23 16:47 XR chest 1V portable CLINICAL HISTORY: Weakness. COMPARISON STUDY: Chest radiograph August 28, 2022. FINDINGS: Left subclavian biventricular pacer/AICD is in place. There is moderate cardiomegaly. There is pulmonary vascular congestion. No consolidation is identified. There is no pneumothorax or pleural effusion. IMPRESSION: Cardiomegaly with pulmonary vascular congestion. ACT 112: Negative or not required by law. Electronically signed by: Keith Hopper M.D. 04/20/2023 5:[address] 04/20/23 17:12 CT OF THE CERVICAL SPINE WITHOUT CONTRAST CLINICAL HISTORY: fall COMPARISON STUDY: No previous studies for comparison. TECHNIQUE: Helical axial images of the cervical spine were obtained without IV contrast. Sagittal and coronal reconstructions were viewed. Automated exposure control was utilized for the study. A dose lowering technique was utilized adhering to the principles of ALARA. FINDINGS: Alignment of the cervical spine is anatomic. Vertebral body heights are maintained. No acute cervical spine fracture or subluxation is present. There is no prevertebral edema. Facet joints are intact. Note is made of mode rate multilevel disc space narrowing, osteophytosis and facet arthrosis within the cervical spine. IMPRESSION: No acute cervical spine fracture or subluxation. ACT 112: Negative or not required by law. Electronically signed by: Keith Hopper M.D. 04/20/2023 6:[address] 04/20/23 17:[address] WITHOUT CONTRAST CLINICAL HISTORY: fall COMPARISON STUDY: Head CT August 28, 2022. TECHNIQUE: A maxillofacial CT was performed without IV contrast. Coronal and sagittal reformats were viewed. Automated exposure control was utilized for the study. A dose lowering technique was utilized adhering to the principles of ALARA. FINDINGS: Globes are intact. There is no retrobulbar hematoma. There is mild polypoid sinus mucosal thickening. There is no acute facial bone fracture. Alignment of the temporomandibular joints is anatomic. The orbital floors are intact. IMPRESSION: No acute facial fracture. ACT 112: Negative or not required by law. Electronically signed by: Keith Hopper M.D. 04/20/2023 6:[address] 04/20/23 17:12 CT OF THE HEAD WITHOUT CONTRAST CLINICAL HISTORY: fall COMPARISON STUDY: Head CT August 28, 2022. TECHNIQUE: Helical axial images of the head were obtained without IV contrast. Automated exposure control was utilized for the study. A dose lowering technique was utilized adhering to the principles of ALARA. FINDINGS: No acute intracranial hemorrhage, midline shift or mass effect is present. The ventricular system is unremarkable. The basal cisterns are patent. No extra-axial collections are present. There are no findings to suggest acute dural sinus thrombosis or acute territorial infarct. No significant calvarial abnormalities are present. Visualized portions of the sinuses and mastoid air cells are clear. IMPRESSION: 1. No acute intracranial findings. No change in appearance of the brain. 2. No acute calvarial fracture. ACT 112: Negative or not required by law. Electronically signed by: Keith Hopper M.D. 04/20/2023 6:07 PM Pelvis X-Ray 04/20/23 17:13 XR pelvis 1-2V routine CLINICAL HISTORY: fall COMPARISON: Pelvis and left hip radiograph August 28, 2022. CT of the abdomen and pelvis September 06, 2018. FINDINGS: Sacroiliac joints and symphysis pubis are intact. No acute fracture is identified within the pelvis or hips. A proximal left femoral internal fixation is noted. A lytic lesion within the proximal diaphysis of the left femur is partially imaged. This was shown on radiographs of August 28, 2022. IMPRESSION: 1. No acute fracture within the pelvis or hips. 2. Status post proximal left femoral internal fixation. Redemonstration of an indeterminate lytic lesion within the proximal diaphysis of the left femur, partially imaged on this study. ACT 112: Negative or not required by law. Electronically signed by: Keith Hopper M.D. 04/20/2023 5:46 PM ECG Data Attestation: I personally reviewed and interpreted this ECG as follows: Additional Comments: Paced rhythm with rate of 70. QRS 158 QTc 460 MDM Narrative Cardiac monitoring: An order was placed for continuous cardiac monitoring. The monitor shows a rate of 70 with paced rhythm interpreted by me Vital signs stable. Hemoglobin 5.3. Creatinine 1.71. Patient be transfused 2 units packed red blood cells. Imaging shows no acute traumatic injury [facility] & Plan Anemia, Multiple myeloma, DAPHNE (acute kidney injury) Discharge Plan Visit Data Chief Complaint: Referred by Doctor Stated Complaint: UNIT OF BLOOD NEEDED, REF BY ED Provider: Antony,Luis Discharge Problem: Anemia, Multiple myeloma, DAPHNE (acute kidney injury) Patient Disposition: Admitted As Inpatient Forms Stand Alone Forms: My [facility] Prescriptions Prescriptions: No Action dutasteride 0.5 mg capsule 0.5 mg PO DAILY Qty: 90 3RF methenamine hippurate 1 gram tablet 1 g PO BID 30 Days Qty: 60 5RF furosemide [Lasix] 40 mg Tablet See Rx Instructions .ROUTE .COMPLEX Rx Instructions: 40 mg orally; TAKES 80 MG ON MON, MON, & MON. THEN TAKES 40 MG ON MON, , , & MON. fluticasone propion-salmeterol [Advair Diskus] 250-50 mcg/dose Blister With Device 1 inh INHALATION AMHS potassium chloride [Klor-Con M20] 20 mEq Tablet,Er Particles/Crystals 20 meq PO QAM magnesium oxide 400 mg (241.3 mg magnesium) Tablet 400 mg PO PM digoxin 125 mcg Tablet 125 mcg PO 3XWK Rx Instructions: take 1 tablet mon,mon,mon albuterol sulfate [Proventil HFA] 90 mcg/actuation Hfa Aerosol Inhaler 2 puff INHALATION QID PRN (Reason: Shortness Of Breath) latanoprost 0.005 % Drops 1 drp OPB QAM albuterol sulfate 1.25 mg/3 mL Solution For Nebulization 1.25 mg INHALATION Q4H PRN (Reason: Wheezing) pantoprazole 40 mg tablet,delayed release (DR/EC) 40 mg PO QAM clopidogrel 75 mg tablet 75 mg PO QAM simvastatin 20 mg tablet 20 mg PO QAM triamcinolone acetonide 0.1 % Ointment 1 applic TOPICAL BID PRN (Reason: rash or more instead of scratching) diclofenac sodium [Voltaren Arthritis Pain] 1 % Gel 2 g EXT QID PRN (Reason: pain) Qty: 100 0RF hydrocodone-acetaminophen 5-325 mg Tablet 1 tab PO Q6H PRN (Reason: Pain, Severe) amlodipine 2.5 mg tablet 2.5 mg PO QAM metoprolol succinate 50 mg tablet extended release 24 hr 50 mg PO DAILY losartan 50 mg tablet 50 mg PO QAM ferrous sulfate [FeroSul] 325 mg (65 mg iron) tablet 325 mg PO Q OTHER DAY Rx Instructions: ordered bid but pt takes every other day acetaminophen 325 mg Tablet 325 mg PO Q4 PRN (Reason: Fever Or Pain) Rx Instructions: use for temp>38C multivitamin Tablet 1 tab PO DAILY Referrals Referrals: Muriel Chowdary MD [Primary Care Provider] -
[2023-04-20 17:24] LABS: Hematocrit (blood only) 17.5 % (42.0-52.0); Hemoglobin 5.3 g/dl (14.0-18.0); Mean Corpuscular Hemoglobin 33.3 pg (25.0-34.0); Mean Corpuscular Hgb Conc 30.3 g/dL (32.0-36.0); Mean Corpuscular Volume 110.1 fL (80.0-100.0); Mean Platelet Volume 9.4 fL (9.4-12.4); Nucleated RBC # (auto) 0.04 K/uL (0-0.12); Nucleated RBC % (auto) 0.6 %; Platelet Count 254 K/uL (130-400); RDW Coefficient of Variation 18.3 % (11.5-14.5); RDW Standard Deviation 70.7 fL (36.4-46.3); Red Blood Count 1.59 M/uL (4.70-6.10); White Blood Count 6.19 K/ul (4.8-10.8)
[2023-04-20] MEDS ORDERED: SODIUM CHLORIDE 0.9% 250 ML IV PRN (17:26)
[2023-04-20 17:35] LABS: Albumin Globulin Ratio 0.7 (0.9-2); Albumin Level 3.1 gm/dl (3.4-5.0); BUN Creatinine Ratio 22.2 (10-20); Bilirubin,Total 0.4 mg/dl (0.2-1.0); Calcium 8.6 mg/dl (8.6-10.3); Creatinine Clr Calc Pharmacy 34.9 ml/min; Est GFR (African American) 40.3 ml/min; Est GFR (Non-African American) 34.7 ml/min; Globulin 4.6 gm/dl (2.5-4.0); Potassium 4.1 mmol/L (3.5-5.1); Total Protein 7.7 gm/dl (6.0-8.3)
[2023-04-20 17:41] LABS: Basophils # (auto) 0.02 K/uL (0-0.2); Basophils % (auto) 0.3 %; Eosinophils # (auto) 0.22 K/uL (0-0.50); Eosinophils % (auto) 3.6 %; Immature Granulocytes # (auto) 0.04 K/uL (0.01-0.20); Immature Granulocytes % (auto) 0.6 %; Lymphocytes % (auto) 16.2 %; Macrocytosis Present; Monocytes # (auto) 0.86 K/uL (0.11-0.59); Monocytes % (auto) 13.9 %; Neutrophils # (auto) 4.05 K/uL (1.40-6.50); Neutrophils % (auto) 65.4 %; Polychromasia 1+; Rouleaux 1+
--- NOTE | 2023-04-20 17:45 | XRay Report ---
XR chest 1V portable CLINICAL HISTORY: Weakness. COMPARISON STUDY: Chest radiograph August 28, 2022. FINDINGS: Left subclavian biventricular pacer/AICD is in place. There is moderate cardiomegaly. There is pulmonary vascular congestion. No consolidation is identified. There is no pneumothorax or pleura l effusion. IMPRESSION: Cardiomegaly with pulmonary vascular congestion. ACT 112: Negative or not required by law. Electronically signed by: Keith Hopper M.D. 04/20/2023 5:44 PM
--- NOTE | 2023-04-20 17:47 | XRay Report ---
XR pelvis 1-2V routine CLINICAL HISTORY: fall COMPARISON: Pelvis and left hip radiograph August 28, 2022. CT of the abdomen and pelvis September. FINDINGS: Sacroiliac joints and symphysis pubis are intact. No acute fracture is identified within t he pelvis or hips. A proximal left femoral internal fixation is noted. A lytic lesion within the prox imal diaphysis of the left femur is partially imaged. This was shown on radiographs of August 28 022. IMPRESSION: 1. No acute fracture within the pelvis or hips. 2. Status post proximal left femoral internal fixation. Redemonstration of an indeterminate lytic les ion within the proximal diaphysis of the left femur, partially imaged on this study. ACT 112: Negative or not required by law. Electronically signed by: Keith Hopper M.D. 04/20/2023 5:46 PM
[2023-04-20 17:49] LABS: Partial Thromboplastin Ratio 0.8; Partial Thromboplastin Time 21.9 Seconds (21.0-31.0); Prothrombin Time 11.4 Seconds (9.0-12.0)
[2023-04-20 17:51] LABS: Troponin I High Sensitivity 20.7 pg/ml (0-20)
--- NOTE | 2023-04-20 18:09 | CT Scan Report ---
CT OF THE HEAD WITHOUT CONTRAST CLINICAL HISTORY: fall COMPARISON STUDY: Head CT August 28, 2022. TECHNIQUE: Helical axial images of the head were obtained without IV contrast. Automated exposure con trol was utilized for the study. A dose lowering technique was utilized adhering to the principles o f ALARA. FINDINGS: No acute intracranial hemorrhage, midline shift or mass effect is present. The ventricular system is unremarkable. The basal cisterns are patent. No extra-axial collections are present. There are no findings to suggest acute dural sinus thrombosis or acute territorial infarct. No significant calvarial abnormalities are present. Visualized portions of the sinuses and mastoid air cells are palomo ar. IMPRESSION: 1. No acute intracranial findings. No change in appearance of the brain. 2. No acute calvarial fracture. ACT 112: Negative or not required by law. Electronically signed by: Keith Hopper M.D. 04/20/2023 6:07 PM
--- NOTE | 2023-04-20 18:13 | CT Scan Report ---
MAXILLOFACIAL CT WITHOUT CONTRAST CLINICAL HISTORY: fall COMPARISON STUDY: Head CT August 28, 2022. TECHNIQUE: A maxillofacial CT was performed without IV contrast. Coronal and sagittal reformats were viewed. Automated exposure control was utilized for the study. A dose lowering technique was utiliz ed adhering to the principles of ALARA. FINDINGS: Globes are intact. There is no retrobulbar hematoma. There is mild polypoid sinus mucosal t hickening. There is no acute facial bone fracture. Alignment of the temporomandibular joints is anato fernando. The orbital floors are intact. IMPRESSION: No acute facial fracture. ACT 112: Negative or not required by law. Electronically signed by: Keith Hopper M.D. 04/20/2023 6:11 PM
--- NOTE | 2023-04-20 18:14 | CT Scan Report ---
CT OF THE CERVICAL SPINE WITHOUT CONTRAST CLINICAL HISTORY: fall COMPARISON STUDY: No previous studies for comparison. TECHNIQUE: Helical axial images of the cervical spine were obtained without IV contrast. Sagittal a nd coronal reconstructions were viewed. Automated exposure control was utilized for the study. A do se lowering technique was utilized adhering to the principles of ALARA. FINDINGS: Alignment of the cervical spine is anatomic. Vertebral body heights are maintained. No acut e cervical spine fracture or subluxation is present. There is no prevertebral edema. Facet joints are intact. Note is made of moderate multilevel disc space narrowing, osteophytosis and facet arthrosis within the cervical spine. IMPRESSION: No acute cervical spine fracture or subluxation. ACT 112: Negative or not required by law. Electronically signed by: Keith Hopper M.D. 04/20/2023 6:13 PM
[2023-04-20 18:59] LABS: Appearance Urine Clear (Clear); Bilirubin Urine Negative (Negative); Blood Urine Negative (Negative); Color Urine Yellow; Glucose Urine UA Negative (Negative); Ketones Urine Negative (Negative); Leukocyte Esterase Urine Negative (Negative); Nitrite Urine Negative (Negative); Protein Urine Negative (Negative); Specific Gravity Urine 1.012 (1.000-1.030); Urobilinogen Urine Negative (Negative)
--- NOTE | 2023-04-20 20:53 | History & Physical Report ---
Date of Service April 20, 2023 Assessment & Plan (1) Anemia: Plan: 88-year-old male with history of CAD s/p CABG s/p stent, diabetes, history of multiple myeloma not on chemo, conservative management gets biweekly labs was called in by oncology for hemoglobin of 5.1 and also patient lately feeling weak and falling down and low appetite. Symptomatic anemia hb 5.3 No obvious signs of bleedings We will check stool for Hemoccult Most likely from multiple myeloma He ER ordered 2 units of PRBCs which will be completed He will follow the labs Close monitoring with telemetry. PT OT when stable History of multiple myeloma Not getting any chemo Follow-up heme-onc DAPHNE on chronic kidney stage III Presented with creatinine 1.7 Baseline creatinine 1.3 Getting PRBCs We will follow the labs Diabetes We will hold glipizide Sliding scale We will follow HbA1c levels and blood sugars Possible aspiration Speech evaluation CAD s/p CABG s/p stent On Plavix metoprolol succinate Tachybradycardia syndrome s/p pacemaker Chronic A-fib On digoxin and metoprolol succinate Not on anticoagulation Chronic diastolic CHF On Lasix We will monitor for volume overload History of asthma Continue home inhalers History of hypertension On losartan and metoprolol succinate and Lasix We will monitor the blood pressure History of duodenal ulcer Protonix DVT prophylaxis SCDs Disposition close monitoring med/tele. CODE STATUS DNR/DNI as per my discussion with the family (2) Multiple myeloma: (3) DAPHNE (acute kidney injury): History of Present Illness Chief Complaint: Anemia, history of multiple myeloma Primary Care Provider: Muriel Chowdary MD 88-year-old male with past medical significant for CAD s/p CABG, s/p stent, BPH, tachybradycardia syndrome s/p biventricular pacemaker, moderate asthmatic lung disease, nocturnal hypoxemia, history of diffuse cardiomyopathy mixed etiology with improvement, chronic atrial fibrillation with anticoagulation contraindications, moderate aortic and tricuspid insufficiency, diabetes, chronic kidney disease stage III, GERD, history of prostatitis with hematuria, sensorineural hearing loss of both ears very hard of hearing, late onset Alzheimer's dementia mild as per his , history of gastric ulcers, diagnosis of multiple myeloma in September 2022 with a lytic lesion in the subtrochanteric left femur s/p internal fixation and completed radiation treatment to the area and improvement of the local pain and family decide not to proceed with any kind of systemic chemotherapy for multiple myeloma. Currently gets. Blood transfusion support for symptomatic anemia. #2021 he received blood transfusion for duodenal ulceration on EGD. Currently is getting biweekly labs. Was called by oncology to go to ER for blood transfusion as hemoglobin dropped down to 5.1. Patient lives with his . Son lives close by. Patient ambulates with a cane. He can shower, dress and eat by himself. But very hard of hearing. Few days ago he fell and has a black eye on the left side. Appetite is down. No hematuria. Stools are black as he is on iron pills. did not check his stools for any blood in the stools. Seems weak. thinks he chokes on food because he coughs. Currently on regular diet. No recent fevers. No runny nose. Patient is alert and awake. Says he is doing fine. Denies any complaints of pain. Seems comfortable. and son in the room and helped with H&P Allergies Allergy/AdvReac Type Severity Reaction Status Date / Time Sulfa (Sulfonamide Allergy Severe Unresponsiv Verified 08/28/22 17:56 Antibiotics) e FELECIA Inhibitors Allergy Unknown Unknown Verified 08/28/22 17:56 prednisone AdvReac Intermediate BLISTERS Verified 08/28/22 17:56 IN THROAT pseudoephedrine AdvReac Intermediate TEMP ELEV Verified 05/26/22 13:51 Home Medications Medication Instructions Recorded Confirmed Type albuterol sulfate 90 mcg/actuation 2 puff inhalation QID PRN 06/07/18 08/28/22 History aerosol inhaler (Proventil HFA) Shortness Of Breath digoxin 125 mcg (0.125 mg) tablet 125 mcg PO 3XWK 06/07/18 08/28/22 History fluticasone 250 mcg-salmeterol 50 1 inh inhalation AMHS 06/07/18 08/28/22 History mcg/dose blistr powdr for inhalation (Advair Diskus) magnesium oxide 400 mg (241.3 mg 400 mg PO PM 06/07/18 08/28/22 History magnesium) tablet potassium chloride 20 mEq 20 meq PO QAM 06/07/18 08/28/22 History tablet,extended release(part/cryst) (Klor-Con M) furosemide 40 mg tablet (Lasix) 40 mg PO DAILY 04/25/19 08/28/22 History latanoprost 0.005 % eye drops 1 drp OPB QAM 03/24/20 08/28/22 History albuterol sulfate 1.25 mg/3 mL 1.25 mg inhalation Q4H PRN Wheezing 04/21/21 08/28/22 History solution for nebulization pantoprazole 40 mg tablet,delayed 40 mg PO QAM 10/22/21 08/28/22 History release dutasteride 0.5 mg capsule 0.5 mg PO DAILY #90 caps 01/03/22 08/28/22 Rx clopidogrel 75 mg tablet 75 mg PO QAM 04/20/22 08/28/22 History triamcinolone acetonide 0.1 % 1 applic topical BID PRN rash or 04/20/22 08/28/22 History topical ointment more instead of scratching diclofenac sodium 1 % topical gel 2 g EXT QID PRN pain #100 grams 04/29/22 08/28/22 Rx (Voltaren Arthritis Pain) acetaminophen 325 mg tablet 325 mg PO Q4 PRN Fever Or Pain 08/28/22 08/28/22 History ferrous sulfate 325 mg (65 mg 325 mg PO Q OTHER DAY 08/28/22 08/28/22 History iron) tablet (FeroSul) losartan 50 mg tablet 50 mg PO QAM 08/28/22 08/28/22 History metoprolol succinate 50 mg 50 mg PO DAILY 08/28/22 08/28/22 History tablet,extended release 24 hr multivitamin 1 tab PO DAILY 08/28/22 08/28/22 History methenamine hippurate 1 gram tablet 1 g PO BID 30 days #60 tabs 11/25/22 Rx glipizide 5 mg tablet, extended 5 mg PO DAILY 04/20/23 04/20/23 History release 24 hr Past Med/Surg History Medical History Anemia Aortic aneurysm unsure of last ultrasound/scan -- no surgical intervention. Moderate aortic root dilatation noted on 2018 echo. No AAA noted on [address] Aortic valve insufficiency Moderate-severe per 11/2018 echo BPH (benign prostatic hyperplasia) CAD (coronary artery disease) (08/21/14) S/p CABG July 2000 receiving KAUR graft to LAD, saphenous vein graft sequentially from the obtuse marginal to diagonal. S/p stenting of prox Cx 2013 Chronic back pain CKD stage 3 due to type 2 diabetes mellitus no specialist COPD (chronic obstructive pulmonary disease) well controlled rare res inh use Dementia mild at present Dementia Dyslipidemia GERD (gastroesophageal reflux disease) GI bleed per pt's > had 3 units PRBC's [facility] during admission in Jul 2021 Glaucoma Hearing deficit [place] History of colon polyps HTN (hypertension) Ischemic cardiomyopathy EF normalized, most recently 55-60% on 11/2018 echo On home oxygen therapy 2 LPM QHS Osteoarthritis Persistent atrial fibrillation Anticoagulation contraindicated per cardiology > ICD Presence of combination internal cardiac defibrillator (ICD) and pacemaker follows w/ Dr. Sanford > [employer] > gets checked electronically > PMH provided by , eduardo when last checked in office. Severe sepsis Tachy-lorna syndrome S/p dual chamber pacer with upgrade to pacer/ICD 2014 Type II diabetes mellitus NIDDM Surgical History History of cardiac cath 1999 --> CABG 2013 - stent - [facility] History of cataract surgery bilat History of colonoscopy History of esophagogastroduodenoscopy (EGD) History of prostate surgery non cancerous History of tonsillectomy History of tooth extraction S/P CABG x 3 1999 S/P coronary artery stent placement July 2014 with stenting of the proximal circumflex Family History Grandmother Diabetes Mother Colon cancer Other Melanoma No family history of adverse response to anesthesia Social History Smoking Status: Former smoker Tobacco Type: Cigarettes Second Hand Exposure: No; Do You Dip or Chew Tobacco: No; Hx Alcohol Use: No (unknown) Preferred Language: Lao Communication Ability: Effective Communication Ability Comment: kasaan despite b/l [place] [employer] Office Receptionist Required: Voice Beliefs That Will Affect Care: None marital status: Current Living Situation: Spouse How many Children do You have: 2 Feels Safe at Home: Yes Assistive Devices: None Review of Systems Review of Systems: Other per H and P. Could not get complete ROS as patient is very hard of hearing and has dementia. Physical Exam Physical Exam: General- alert and awake. Not in distress Head- atraumatic Eyes- PERRL, pallor present, anicteric ENT- oropharynx clear Neck- supple, no JVD, no adenopathy, carotids +2/2, no bruits appreciated Lungs- clear to auscultation and percussion Heart- regular rhythm; no murmur, no gallop, no rub appreciated Abdomen- normal bowel sounds, soft, nontender, no masses or hepatosplenomegaly Extremities- no pretibial edema, no erythema seen Neuro- alert, awake, nio facial droop obeys simple commands Skin- warm & dry Results & Data Results & Data Vital Signs (Past 12 Hours) Vital Signs Temp Pulse Pulse Resp BP BP Pulse Ox 04/20/23 20:02 36.9 C 70 16 151/70 H 98 04/20/23 19:32 36.9 C 70 16 147/62 H 96 04/20/23 19:02 36.9 C 70 16 142/69 H 96 04/20/23 18:32 36.8 C 70 22 139/69 96 04/20/23 18:21 37.2 C 70 18 146/67 H 97 04/20/23 18:15 71 20 94/78 L 98 04/20/23 17:19 69 04/20/23 17:02 22 94 04/20/23 16:43 36.8 C 77 16 135/64 98 O2 Del Method 04/20/23 20:02 04/20/23 19:32 Room Air 04/20/23 19:02 Room Air 04/20/23 18:32 04/20/23 18:21 04/20/23 18:15 04/20/23 17:19 04/20/23 17:02 04/20/23 16:43 Room Air Diagnostic Findings Laboratory Results WBC 6.19 K/ul (4.8-10.8) 04/20/23 16:58 RBC 1.59 M/uL (4.70-6.10) L 04/20/23 16:58 Hgb 5.3 g/dl (14.0-18.0) L* 04/20/23 16:58 Hct 17.5 % (42.0-52.0) L* 04/20/23 16:58 MCV 110.1 fL (80.0-100.0) H 04/20/23 16:58 MCH 33.3 pg (25.0-34.0) 04/20/23 16:58 MCHC 30.3 g/dL (32.0-36.0) L 04/20/23 16:58 RDW Std Deviation 70.7 fL (36.4-46.3) H 04/20/23 16:58 RDW Coeff of Maricarmen 18.3 % (11.5-14.5) H 04/20/23 16:58 Plt Count 254 K/uL (130-400) 04/20/23 16:58 MPV 9.4 fL (9.4-12.4) 04/20/23 16:58 Immature Gran % (Auto) 0.6 % 04/20/23 16:58 Neut % (Auto) 65.4 % 04/20/23 16:58 Lymph % (Auto) 16.2 % 04/20/23 16:58 [place] % (Auto) 13.9 % 04/20/23 16:58 Eos % (Auto) 3.6 % 04/20/23 16:58 Baso % (Auto) 0.3 % 04/20/23 16:58 Neut # (Auto) 4.05 K/uL (1.40-6.50) 04/20/23 16:58 Lymph # (Auto) 1.00 K/uL (1.2-3.4) L 04/20/23 16:58 [place] # (Auto) 0.86 K/uL (0.11-0.59) H 04/20/23 16:58 Eos # (Auto) 0.22 K/uL (0-0.50) 04/20/23 16:58 Baso # (Auto) 0.02 K/uL (0-0.2) 04/20/23 16:58 Immature Gran # (Auto) 0.04 K/uL (0.01-0.20) 04/20/23 16:58 Absolute Nucleated RBC 0.04 K/uL (0-0.12) 04/20/23 16:58 Nucleated RBC % (auto) 0.6 % 04/20/23 16:58 Polychromasia 1+ 04/20/23 16:58 Macrocytosis Present 04/20/23 16:58 Rouleaux 1+ 04/20/23 16:58 PT 11.4 Seconds (9.0-12.0) 04/20/23 16:53 INR 1.0 (0.9-1.1) 04/20/23 16:53 APTT 21.9 Seconds (21.0-31.0) 04/20/23 16:53 PTT Ratio 0.8 04/20/23 16:53 Sodium 143 mmol/L (136-145) 04/20/23 16:58 Potassium 4.1 mmol/L (3.5-5.1) 04/20/23 16:58 Chloride 107 mmol/L (98-107) 04/20/23 16:58 Carbon Dioxide 24 mmol/L (21-32) 04/20/23 16:58 Anion Gap 12 (3-11) H 04/20/23 16:58 BUN 38 mg/dl (6-23) H 04/20/23 16:58 Creatinine 1.71 mg/dl (0.6-1.4) H 04/20/23 16:58 Est Cr Clr Drug Dosing 34.9 ml/min 04/20/23 16:58 Est GFR ( Amer) 40.3 ml/min 04/20/23 16:58 Est GFR (Non-Af Amer) 34.7 ml/min 04/20/23 16:58 BUN/Creatinine Ratio 22.2 (10-20) H 04/20/23 16:58 Glucose 186 mg/dl (70-99(Fasting)) H 04/20/23 16:58 Calcium 8.6 mg/dl (8.6-10.3) 04/20/23 16:58 Magnesium 2.0 mg/dl (1.7-2.4) 04/20/23 16:58 Total Bilirubin 0.4 mg/dl (0.2-1.0) 04/20/23 16:58 AST 14 U/L (13-39) 04/20/23 16:58 ALT 6 U/L (7-52) L 04/20/23 16:58 Alkaline Phosphatase 31 U/L (34-104) L 04/20/23 16:58 Troponin I High Sens 20.7 pg/ml (0-20) H 04/20/23 16:58 Total Protein 7.7 gm/dl (6.0-8.3) 04/20/23 16:58 Albumin 3.1 gm/dl (3.4-5.0) L 04/20/23 16:58 Globulin 4.6 gm/dl (2.5-4.0) H 04/20/23 16:58 Albumin/Globulin Ratio 0.7 (0.9-2) L 04/20/23 16:58 Urine Color Yellow 04/20/23 18:18 Urine Appearance Clear (Clear) 04/20/23 18:18 Urine pH 5.0 (4.5-7.5) 04/20/23 18:18 Ur Specific [place] 1.012 (1.000-1.030) 04/20/23 18:18 Urine Protein Negative (Negative) 04/20/23 18:18 Urine Glucose (UA) Negative (Negative) 04/20/23 18:18 Urine Ketones Negative (Negative) 04/20/23 18:18 Urine Blood Negative (Negative) 04/20/23 18:18 Urine Nitrite Negative (Negative) 04/20/23 18:18 Urine Bilirubin Negative (Negative) 04/20/23 18:18 Urine Urobilinogen Negative (Negative) 04/20/23 18:18 Ur Leukocyte Esterase Negative (Negative) 04/20/23 18:18 Digoxin 0.5 ng/ml (0.8-2.0) L 04/20/23 16:53 SARS-CoV-2, RNA, NAAT NEGATIVE (NEGATIVE) 04/20/23 17:20 Blood Type A Positive 04/20/23 16:58 Antibody Screen NEGATIVE 04/20/23 16:58 Crossmatch See Detail 04/20/23 16:58 Impressions Chest X-Ray 04/20/23 16:47 XR chest 1V portable CLINICAL HISTORY: Weakness. COMPARISON STUDY: Chest radiograph August 28, 2022. FINDINGS: Left subclavian biventricular pacer/AICD is in place. There is moderate cardiomegaly. There is pulmonary vascular congestion. No consolidation is identified. There is no pneumothorax or pleural effusion. IMPRESSION: Cardiomegaly with pulmonary vascular congestion. ACT 112: Negative or not required by law. Electronically signed by: Keith Hopper M.D. 04/20/2023 5:[address] 04/20/23 17:12 CT OF THE CERVICAL SPINE WITHOUT CONTRAST CLINICAL HISTORY: fall COMPARISON STUDY: No previous studies for comparison. TECHNIQUE: Helical axial images of the cervical spine were obtained without IV contrast. Sagittal and coronal reconstructions were viewed. Automated exposure control was utilized for the study. A dose lowering technique was utilized adhering to the principles of ALARA. FINDINGS: Alignment of the cervical spine is anatomic. Vertebral body heights are maintained. No acute cervical spine fracture or subluxation is present. There is no prevertebral edema. Facet joints are intact. Note is made of moderate multilevel disc space narrowing, osteophytosis and facet arthrosis within the cervical spine. IMPRESSION: No acute cervical spine fracture or subluxation. ACT 112: Negative or not required by law. Electronically signed by: Keith Hopper M.D. 04/20/2023 6:[address] 04/20/23 17:[address] WITHOUT CONTRAST CLINICAL HISTORY: fall COMPARISON STUDY: Head CT August 28, 2022. TECHNIQUE: A maxillofacial CT was performed without IV contrast. Coronal and sagittal reformats were viewed. Automated exposure control was utilized for the study. A dose lowering technique was utilized adhering to the principles of ALARA. FINDINGS: Globes are intact. There is no retrobulbar hematoma. There is mild polypoid sinus mucosal thickening. There is no acute facial bone fracture. Alignment of the temporomandibular joints is anatomic. The orbital floors are intact. IMPRESSION: No acute facial fracture. ACT 112: Negative or not required by law. Electronically signed by: Keith Hopper M.D. 04/20/2023 6:[address] 04/20/23 17:12 CT OF THE HEAD WITHOUT CONTRAST CLINICAL HISTORY: fall COMPARISON STUDY: Head CT August 28, 2022. TECHNIQUE: Helical axial images of the head were obtained without IV contrast. Automated exposure control was utilized for the study. A dose lowering technique was utilized adhering to the principles of ALARA. FINDINGS: No acute intracranial hemorrhage, midline shift or mass effect is present. The ventricular system is unremarkable. The basal cisterns are patent. No extra-axial collections are present. There are no findings to suggest acute dural sinus thrombosis or acute territorial infarct. No significant calvarial abnormalities are present. Visualized portions of the sinuses and mastoid air cells are clear. IMPRESSION: 1. No acute intracranial findings. No change in appearance of the brain. 2. No acute calvarial fracture. ACT 112: Negative or not required by law. Electronically signed by: Keith Hopper M.D. 04/20/2023 6:07 PM Pelvis X-Ray 04/20/23 17:13 XR pelvis 1-2V routine CLINICAL HISTORY: fall COMPARISON: Pelvis and left hip radiograph August 28, 2022. CT of the abdomen and pelvis September 06, 2018. FINDINGS: Sacroiliac joints and symphysis pubis are intact. No acute fracture is identified within the pelvis or hips. A proximal left femoral internal fixation is noted. A lytic lesion within the proximal diaphysis of the left femur is partially imaged. This was shown on radiographs of August 28, 2022. IMPRESSION: 1. No acute fracture within the pelvis or hips. 2. Status post proximal left femoral internal fixation. Redemonstration of an indeterminate lytic lesion within the proximal diaphysis of the left femur, partially imaged on this study. ACT 112: Negative or not required by law. Electronically signed by: Keith Hopper M.D. 04/20/2023 5:46 PM ECG Additional Comments: ECG ventricle paced rhythm with a rate of 70 Code Status & VTE Plan VTE Prophylaxis Plan VTE Prophylaxis will be ordered: Yes
[2023-04-20] MEDS ORDERED: GLUCOSE 10 TAB/TUBE PO PRN (23:44)
[2023-04-20] MEDS ORDERED: DICLOFENAC SOD 1% GEL 100 GM TUBE EXT PRN (23:44)
[2023-04-20] MEDS ORDERED: ALBUTEROL HFA 8 GM INHALER INH PRN (23:44)
[2023-04-20] MEDS ORDERED: DEXTROSE 50% 50 ML SYRINGE IV PRN (23:44)
[2023-04-20] MEDS ORDERED: GLUCAGON FOR INJ 1 MG VIAL SQ PRN (23:44)
[2023-04-20] MEDS ORDERED: TRIAMCINOLONE ACET 0.1% OINT 15 GM TUBE TOP PRN (23:44)
[2023-04-20] MEDS ORDERED: CARBOHYDRATES FOR HYPOGLYCEMIA PO PRN (23:44)
[2023-04-20] MEDS ORDERED: ACETAMINOPHEN 325 MG TAB PO PRN (23:44)
[2023-04-20] MEDS ORDERED: POLYETHYLENE (MIRALAX) 17 GM PACK PO PRN (23:44)
[2023-04-20] MEDS ORDERED: GLUCOSE 40% GEL 15 GM TUBE PO PRN (23:44)
[2023-04-20] MEDS ORDERED: ALBUTEROL 0.083% NEBU SOLN 3 ML VIAL INH PRN (23:51)
[2023-04-21] MEDS ORDERED: SODIUM CHLORIDE 0.9% 250 ML IV PRN ×2 (00:13→06:46)
[2023-04-21] MEDS: INSULIN ASPART PER UNIT CHARGE SC SCH ×5 (00:36→20:31)
[2023-04-21] MEDS ORDERED: METOPROLOL TARTRATE 1 MG/ML VIAL IV STA (00:43)
[2023-04-21] MEDS: MAGNESIUM OXIDE 400 MG TAB PO SCH ×2 (01:04→20:43)
[2023-04-21] MEDS: METHENAMINE HIPPURATE 1 GM TAB PO SCH ×3 (01:04→20:43)
[2023-04-21 06:21] LABS: Hematocrit (blood only) 20.5 % (42.0-52.0); Hemoglobin 6.6 g/dl (14.0-18.0); Mean Corpuscular Hemoglobin 33.3 pg (25.0-34.0); Mean Corpuscular Hgb Conc 32.2 g/dL (32.0-36.0); Mean Corpuscular Volume 103.5 fL (80.0-100.0); Mean Platelet Volume 9.4 fL (9.4-12.4); Nucleated RBC # (auto) 0.05 K/uL (0-0.12); Nucleated RBC % (auto) 0.8 %; Platelet Count 205 K/uL (130-400); RDW Coefficient of Variation 19.6 % (11.5-14.5); RDW Standard Deviation 70.8 fL (36.4-46.3); Red Blood Count 1.98 M/uL (4.70-6.10); White Blood Count 5.93 K/ul (4.8-10.8)
[2023-04-21 06:22] LABS: BUN Creatinine Ratio 20.5 (10-20); Calcium 8.2 mg/dl (8.6-10.3); Creatinine Clr Calc Pharmacy 34.9 ml/min; Est GFR (African American) 40.3 ml/min; Est GFR (Non-African American) 34.7 ml/min; Magnesium 1.9 mg/dl (1.7-2.4); Potassium 3.9 mmol/L (3.5-5.1)
[2023-04-21 06:29] LABS: Basophils # (auto) 0.02 K/uL (0-0.2); Basophils % (auto) 0.3 %; Eosinophils # (auto) 0.26 K/uL (0-0.50); Eosinophils % (auto) 4.4 %; Immature Granulocytes # (auto) 0.02 K/uL (0.01-0.20); Immature Granulocytes % (auto) 0.3 %; Lymphocytes # (auto) 0.98 K/uL (1.2-3.4); Lymphocytes % (auto) 16.5 %; Monocytes # (auto) 0.84 K/uL (0.11-0.59); Monocytes % (auto) 14.2 %; Neutrophils # (auto) 3.81 K/uL (1.40-6.50); Neutrophils % (auto) 64.3 %; Polychromasia 1+
[2023-04-21] MEDS ORDERED: ACETAMINOPHEN 325 MG TAB PO ONE (07:30)
[2023-04-21] MEDS ORDERED: FUROSEMIDE INJ 20 MG/2 ML VIAL IV ONE (07:30)
[2023-04-21 07:42] LABS: Estimated Average Glucose 128 mg/dl; Hemoglobin A1C 6.1 % (4.5-5.6)
[2023-04-21] MEDS: FINASTERIDE 5 MG TAB PO SCH (07:46)
[2023-04-21] MEDS: MULTIVITAMIN TAB PO SCH (07:47)
[2023-04-21] MEDS: POTASSIUM CHLORIDE CRTAB 20 MEQ TABCR PO SCH (07:47)
[2023-04-21] MEDS: FUROSEMIDE 40 MG TAB PO SCH (07:47)
[2023-04-21] MEDS: CLOPIDOGREL BISULFATE 75 MG TAB PO SCH (07:48)
[2023-04-21] MEDS: METOPROLOL SUCC 50MG EXT REL TAB PO SCH (07:48)
[2023-04-21] MEDS: LOSARTAN POTASSIUM 50 MG TAB PO SCH (07:48)
[2023-04-21] MEDS: LATANOPROST 0.005% OP SOLN 2.5 ML BTL OPB SCH (08:00)
[2023-04-21] MEDS: FLUTICASONE/VILANTEROL 200/25MCG 14 PUFFS/INHALER INH SCH (08:00)
[2023-04-21] MEDS ORDERED: PANTOprazole 40 MG TAB PO SCH (09:00)
--- NOTE | 2023-04-21 13:07 | Hospitalist Progress Note ---
Date of Service April 21, 2023 Assessment & Plan (1) Anemia: Plan: 88-year-old male with history of CAD s/p CABG s/p stent, diabetes, history of multiple myeloma not on chemo, conservative management gets biweekly labs was called in by oncology for hemoglobin of 5.1 and also patient lately feeling weak and falling down and low appetite. Symptomatic anemia Hemoglobin downtrending over several weeks; was found to have outpatient hemoglobin of 5.1. Repeat hemoglobin here is 5.3 No obvious signs of bleedings Received 3 units of packed RBC so far. Repeat CBC We will check stool for Hemoccult Last endoscopy in October 2022no significant signs or symptoms of bleeding. His oncologist Dr. Sykes updated. PT OT eval History of multiple myeloma Not getting any chemo Follow-up heme-onc chronic kidney stage III Presented with creatinine 1.7 Similar to his baseline. Type II diabetes We will hold glipizide Sliding scale A1c of 6.1 Possible aspiration Speech evaluation CAD s/p CABG s/p stent On Plavix metoprolol succinate Tachybradycardia syndrome s/p pacemaker Chronic A-fib On digoxin and metoprolol succinate Not on anticoagulation Chronic diastolic CHF On Lasix We will monitor for volume overload History of asthma Continue home inhalers History of hypertension On losartan and metoprolol succinate and Lasix We will monitor the blood pressure History of duodenal ulcer Protonix DVT prophylaxis SCDs Disposition close monitoring med/tele. CODE STATUS DNR/DNI Time spent evaluating patient, direct bedside care, chart review, placing orders, interpretation of diagnostic studies, discussion with consultants, patient, and family members, as well as other required patient management activities is 60 minutes. Please note the above document was generated using voice recognition software. It may contain grammatical, syntax or spelling errors. Any formal questions or concerns about the content, text or information contained within the body of this dictation should be directly addressed to the provider for clarification (2) Multiple myeloma: (3) DAPHNE (acute kidney injury): Admission and Anticipated Discharge Date Admission Date: April 20, 2023 Subjective Patient seen and examined at bedside. He is comfortably sitting up on the bed; not in distress. He is receiving third unit of packed RBC. Review of Systems Review of Systems: All systems reviewed & are unremarkable except as noted in Subjective Physical Exam Physical Exam: General- alert and awake. Not in distress Head- atraumatic Eyes- PERRL, pallor present, anicteric ENT- oropharynx clear Neck- supple, no JVD, no adenopathy, carotids +2/2, no bruits appreciated Lungs- clear to auscultation and percussion Heart- regular rhythm; no murmur, no gallop, no rub appreciated Abdomen- normal bowel sounds, soft, nontender, no masses or hepatosplenomegaly Extremities- no pretibial edema, no erythema seen Neuro- alert, awake, nio facial droop obeys simple commands Skin- warm & dry Results & Data Results & Data Vital Signs (Past 12 Hours) Vital Signs Temp Pulse Resp BP BP Pulse Ox O2 Del Method 04/21/23 12:00 36.8 C 78 20 168/73 H 93 04/21/23 11:05 36.5 C 73 20 171/64 H 97 04/21/23 10:56 36.5 C 83 20 171/64 H 97 04/21/23 10:05 36.6 C 70 20 165/71 H 97 04/21/23 09:05 36.6 C 70 18 156/73 H 94 04/21/23 08:35 36.6 C 71 18 171/78 H 94 04/21/23 08:20 36.8 C 70 24 167/73 H 94 04/21/23 08:02 36.6 C 71 20 162/68 H 97 04/21/23 07:43 Room Air 04/21/23 05:14 146/69 H 04/21/23 03:25 37.0 C 69 18 163/69 H 95 04/21/23 02:35 37.0 C 71 18 184/73 H 98 04/21/23 01:51 Room Air 04/21/23 01:35 37.0 C 73 18 154/67 H 96 04/21/23 01:19 73 169/72 H 04/21/23 01:05 36.9 C 73 18 168/66 H 96 Laboratory Results Laboratory Results WBC 5.93 K/ul (4.8-10.8) 04/21/23 05:29 RBC 1.98 M/uL (4.70-6.10) L 04/21/23 05:29 Hgb 6.6 g/dl (14.0-18.0) L* 04/21/23 05:29 Hct 20.5 % (42.0-52.0) L* 04/21/23 05:29 MCV 103.5 fL (80.0-100.0) H D 04/21/23 05:29 MCH 33.3 pg (25.0-34.0) 04/21/23 05:29 MCHC 32.2 g/dL (32.0-36.0) 04/21/23 05:29 RDW Std Deviation 70.8 fL (36.4-46.3) H 04/21/23 05:29 RDW Coeff of Maircarmen 19.6 % (11.5-14.5) H 04/21/23 05:29 Plt Count 205 K/uL (130-400) 04/21/23 05:29 MPV 9.4 fL (9.4-12.4) 04/21/23 05:29 Immature Gran % (Auto) 0.3 % 04/21/23 05:29 Neut % (Auto) 64.3 % 04/21/23 05:29 Lymph % (Auto) 16.5 % 04/21/23 05:29 [place] % (Auto) 14.2 % 04/21/23 05:29 Eos % (Auto) 4.4 % 04/21/23 05:29 Baso % (Auto) 0.3 % 04/21/23 05:29 Neut # (Auto) 3.81 K/uL (1.40-6.50) 04/21/23 05:29 Lymph # (Auto) 0.98 K/uL (1.2-3.4) L 04/21/23 05:29 [place] # (Auto) 0.84 K/uL (0.11-0.59) H 04/21/23 05:29 Eos # (Auto) 0.26 K/uL (0-0.50) 04/21/23 05:29 Baso # (Auto) 0.02 K/uL (0-0.2) 04/21/23 05:29 Immature Gran # (Auto) 0.02 K/uL (0.01-0.20) 04/21/23 05:29 Absolute Nucleated RBC 0.05 K/uL (0-0.12) 04/21/23 05:29 Nucleated RBC % (auto) 0.8 % 04/21/23 05:29 Polychromasia 1+ 04/21/23 05:29 Macrocytosis Present 04/20/23 16:58 Rouleaux 1+ 04/20/23 16:58 PT 11.4 Seconds (9.0-12.0) 04/20/23 16:53 INR 1.0 (0.9-1.1) 04/20/23 16:53 APTT 21.9 Seconds (21.0-31.0) 04/20/23 16:53 PTT Ratio 0.8 04/20/23 16:53 Sodium 140 mmol/L (136-145) 04/21/23 05:29 Potassium 3.9 mmol/L (3.5-5.1) 04/21/23 05:29 Chloride 105 mmol/L (98-107) 04/21/23 05:29 Carbon Dioxide 23 mmol/L (21-32) 04/21/23 05:29 Anion Gap 12 (3-11) H 04/21/23 05:29 BUN 35 mg/dl (6-23) H 04/21/23 05:29 Creatinine 1.71 mg/dl (0.6-1.4) H 04/21/23 05:29 Est Cr Clr Drug Dosing 34.9 ml/min 04/21/23 05:29 Est GFR ( Amer) 40.3 ml/min 04/21/23 05:29 Est GFR (Non-Af Amer) 34.7 ml/min 04/21/23 05:29 BUN/Creatinine Ratio 20.5 (10-20) H 04/21/23 05:29 Glucose 150 mg/dl (70-99(Fasting)) H 04/21/23 05:29 POC Glucose 136 mg/dl (70-99) H 04/21/23 11:58 Estimat Average Glucose 128 mg/dl 04/21/23 05:29 Hemoglobin A1c 6.1 % (4.5-5.6) H 04/21/23 05:29 Calcium 8.2 mg/dl (8.6-10.3) L 04/21/23 05:29 Magnesium 1.9 mg/dl (1.7-2.4) 04/21/23 05:29 Total Bilirubin 0.4 mg/dl (0.2-1.0) 04/20/23 16:58 AST 14 U/L (13-39) 04/20/23 16:58 ALT 6 U/L (7-52) L 04/20/23 16:58 Alkaline Phosphatase 31 U/L (34-104) L 04/20/23 16:58 Troponin I High Sens 20.7 pg/ml (0-20) H 04/20/23 16:58 Total Protein 7.7 gm/dl (6.0-8.3) 04/20/23 16:58 Albumin 3.1 gm/dl (3.4-5.0) L 04/20/23 16:58 Globulin 4.6 gm/dl (2.5-4.0) H 04/20/23 16:58 Albumin/Globulin Ratio 0.7 (0.9-2) L 04/20/23 16:58 Urine Color Yellow 04/20/23 18:18 Urine Appearance Clear (Clear) 04/20/23 18:18 Urine pH 5.0 (4.5-7.5) 04/20/23 18:18 Ur Specific [place] 1.012 (1.000-1.030) 04/20/23 18:18 Urine Protein Negative (Negative) 04/20/23 18:18 Urine Glucose (UA) Negative (Negative) 04/20/23 18:18 Urine Ketones Negative (Negative) 04/20/23 18:18 Urine Blood Negative (Negative) 04/20/23 18:18 Urine Nitrite Negative (Negative) 04/20/23 18:18 Urine Bilirubin Negative (Negative) 04/20/23 18:18 Urine Urobilinogen Negative (Negative) 04/20/23 18:18 Ur Leukocyte Esterase Negative (Negative) 04/20/23 18:18 Digoxin 0.5 ng/ml (0.8-2.0) L 04/20/23 16:53 SARS-CoV-2, RNA, NAAT NEGATIVE (NEGATIVE) 04/20/23 17:20 Blood Type A Positive 04/20/23 16:58 Antibody Screen NEGATIVE 04/20/23 16:58 Crossmatch See Detail 04/20/23 16:58 Impressions Chest X-Ray 04/20/23 16:47 XR chest 1V portable CLINICAL HISTORY: Weakness. COMPARISON STUDY: Chest radiograph August 28, 2022. FINDINGS: Left subclavian biventricular pacer/AICD is in place. There is moderate cardiomegaly. There is pulmonary vascular congestion. No consolidation is identified. There is no pneumothorax or pleural effusion. IMPRESSION: Cardiomegaly with pulmonary vascular congestion. ACT 112: Negative or not required by law. Electronically signed by: Keith Hopper M.D. 04/20/2023 5:[address] 04/20/23 17:12 CT OF THE CERVICAL SPINE WITHOUT CONTRAST CLINICAL HISTORY: fall COMPARISON STUDY: No previous studies for comparison. TECHNIQUE: Helical axial images of the cervical spine were obtained without IV contrast. Sagittal and coronal reconstructions were viewed. Automated exposure control was utilized for the study. A dose lowering technique was utilized adhering to the principles of ALARA. FINDINGS: Alignment of the cervical spine is anatomic. Vertebral body heights are maintained. No acute cervical spine fracture or subluxation is present. There is no prevertebral edema. Facet joints are intact. Note is made of moderate multilevel disc space narrowing, osteophytosis and facet arthrosis wi thin the cervical spine. IMPRESSION: No acute cervical spine fracture or subluxation. ACT 112: Negative or not required by law. Electronically signed by: Keith Hopper M.D. 04/20/2023 6:[address] 04/20/23 17:[address] WITHOUT CONTRAST CLINICAL HISTORY: fall COMPARISON STUDY: Head CT August 28, 2022. TECHNIQUE: A maxillofacial CT was performed without IV contrast. Coronal and sagittal reformats were viewed. Automated exposure control was utilized for the study. A dose lowering technique was utilized adhering to the principles of ALARA. FINDINGS: Globes are intact. There is no retrobulbar hematoma. There is mild polypoid sinus mucosal thickening. There is no acute facial bone fracture. Alignment of the temporomandibular joints is anatomic. The orbital floors are intact. IMPRESSION: No acute facial fracture. ACT 112: Negative or not required by law. Electronically signed by: Keith Hopper M.D. 04/20/2023 6:[address] 04/20/23 17:12 CT OF THE HEAD WITHOUT CONTRAST CLINICAL HISTORY: fall COMPARISON STUDY: Head CT August 28, 2022. TECHNIQUE: Helical axial images of the head were obtained without IV contrast. Automated exposure control was utilized for the study. A dose lowering technique was utilized adhering to the principles of ALARA. FINDINGS: No acute intracranial hemorrhage, midline shift or mass effect is present. The ventricular system is unremarkable. The basal cisterns are patent. No extra-axial collections are present. There are no findings to suggest acute dural sinus thrombosis or acute territorial infarct. No significant calvarial abnormalities are present. Visualized portions of the sinuses and mastoid air cells are clear. IMPRESSION: 1. No acute intracranial findings. No change in appearance of the brain. 2. No acute calvarial fracture. ACT 112: Negative or not required by law. Electronically signed by: Keith Hopper M.D. 04/20/2023 6:07 PM Pelvis X-Ray 04/20/23 17:13 XR pelvis 1-2V routine CLINICAL HISTORY: fall COMPARISON: Pelvis and left hip radiograph August 28, 2022. CT of the abdomen and pelvis September 06, 2018. FINDINGS: Sacroiliac joints and symphysis pubis are intact. No acute fracture is identified within the pelvis or hips. A proximal left femoral internal fixation is noted. A lytic lesion within the proximal diaphysis of the left femur is partially imaged. This was shown on radiographs of August 28, 2022. IMPRESSION: 1. No acute fracture within the pelvis or hips. 2. Status post proximal left femoral internal fixation. Redemonstration of an indeterminate lytic lesion within the proximal diaphysis of the left femur, partially imaged on this study. ACT 112: Negative or not required by law. Electronically signed by: Keith Hopper M.D. 04/20/2023 5:46 PM
--- NOTE | 2023-04-21 14:16 | Electrocardiogram Report ---
Test Reason : Blood Pressure : / mmHG Vent. Rate : 070 BPM Atrial Rate : 067 BPM P-R Int : 000 ms QRS Dur : 158 ms QT Int : 426 ms P-R-T Axes : 000 240 062 degrees QTc Int : 460 ms Ventricular-paced rhythm Abnormal ECG When compared with ECG of 28-AUG-2022 14:48, Vent. rate has decreased BY 3 BPM Confirmed by Joe Menard ([id number]) on 04/21/2023 12:25:54 PM Referred By: Ling Sykes Confirmed By:Joe Menard
[2023-04-21 14:24] LABS: Basophils # (auto) 0.01 K/uL (0-0.2); Basophils % (auto) 0.2 %; Eosinophils # (auto) 0.22 K/uL (0-0.50); Eosinophils % (auto) 4.1 %; Hematocrit (blood only) 23.5 % (42.0-52.0); Hemoglobin 7.4 g/dl (14.0-18.0); Immature Granulocytes # (auto) 0.03 K/uL (0.01-0.20); Immature Granulocytes % (auto) 0.6 %; Lymphocytes # (auto) 0.86 K/uL (1.2-3.4); Lymphocytes % (auto) 16.2 %; Mean Corpuscular Hgb Conc 31.5 g/dL (32.0-36.0); Mean Corpuscular Volume 101.7 fL (80.0-100.0); Mean Platelet Volume 9.5 fL (9.4-12.4); Monocytes # (auto) 0.72 K/uL (0.11-0.59); Monocytes % (auto) 13.5 %; Neutrophils # (auto) 3.48 K/uL (1.40-6.50); Neutrophils % (auto) 65.4 %; Nucleated RBC # (auto) 0.05 K/uL (0-0.12); Nucleated RBC % (auto) 0.9 %; Platelet Count 222 K/uL (130-400); RDW Coefficient of Variation 19.3 % (11.5-14.5); RDW Standard Deviation 68.2 fL (36.4-46.3); Red Blood Count 2.31 M/uL (4.70-6.10); White Blood Count 5.32 K/ul (4.8-10.8)
--- NOTE | 2023-04-21 14:38 | Gastrointestinal Consultation ---
Date of Consultation April 21, 2023 Assessment & Plan (1) Anemia: 88 year old male with history of dyslipidemia, BPH, CAD s/p CABG, CKD3, COPD, HTN, T2DM, tachy-lorna, s/p pacer/defibrillator, cardiomyopathy, MM admitted w/ symptomatic anemia. Although the has a macrocytic anemia, he has history of PUD, report of black stools which were heme + May continue diet today IV PPI BID No NSAIDs Hold any AC Trend H&H Transfuse PRN EGD Monday I tried to contact familt to discuss but no answer We appreciate assistance in the management of any serological abnormality and corrections to include: hemoglobin >7, INR <2, platelets >50,000, potassium levels >3.5 but <5.3, and sodium levels within 5 points of the reference range prior to endoscopic evaluation. Thank you for allowing us to participate in the care of this patient. Please call with any acute changes, questions or concerns. Please see addendum below with additional recommendation from my supervising physician. Supervising Physician Co-Signing Physician Notes I performed a history and physical examination of the patient today, including specifically on physical exam - soft abdomen. I have discussed the patient's management with the advanced practitioner. Please refer to the nurse practitioner's note for the documented findings and plan of care. EGD Monday. History of Present Illness Reason for Consultation: anemia, heme + stool Requesting Physician: Susan Attending Physician: Rafael Davis MD History of Present Illness 88 year old male with history of dyslipidemia, BPH, CAD s/p CABG, CKD3, COPD, HTN, T2DM, tachy-lorna, s/p pacer/defibrillator, cardiomyopathy, MM admitted w/ symptomatic anemia. GI was asked to evaluate. Pt was sleeping on my arrival. He awake to his name but was unable to provider history. Attempted to contact in chart. No answer. From nursing standpoint, report of dark stool. Is heme + HGB 8.8 --> 5.3 --> 6.6 --> 7.4 BUN 35 EGD 2021: - Normal esophagus. - Mucosal nodule found in the esophagus. Biopsied. This may represent a thickened fold. - Normal gastric fundus, gastric body, incisura and antrum. - Normal examined duodenum. EGD 2020: - Normal esophagus. - Medium-sized hiatal hernia. - Gastritis. Biopsied. - Non-obstructing non-bleeding gastric ulcer with no stigmata of bleeding. NSAID induced etiology. - Non-obstructing non-bleeding duodenal ulcer with pigmented material. NSAID induced etiology. - Non-obstructing non-bleeding duodenal ulcers with no stigmata of bleeding. NSAID induced etiology. Colonoscopy 2020: Preparation of the colon was fair. - The examined portion of the ileum was normal. - Two 8 to 12 mm polyps in the ascending colon, removed using injection-lift and a hot snare. Resected and retrieved. Clips (MR conditional) were placed. - Two 3 to 5 mm polyps in the ascending colon, removed with a cold snare. Resected and retrieved. - Diverticulosis in the sigmoid colon. - Internal hemorrhoids. Allergies Allergy/AdvReac Type Severity Reaction Status Date / Time Sulfa (Sulfonamide Allergy Severe Unresponsiv Verified 08/28/22 17:56 Antibiotics) e FELECIA Inhibitors Allergy Unknown Unknown Verified 08/28/22 17:56 prednisone AdvReac Intermediate BLISTERS Verified 08/28/22 17:56 IN THROAT pseudoephedrine AdvReac Intermediate TEMP ELEV Verified 05/26/22 13:51 Home Medications Medication Instructions Recorded Confirmed Type albuterol sulfate 90 mcg/actuation 2 puff inhalation QID PRN 06/07/18 08/28/22 History aerosol inhaler (Proventil HFA) Shortness Of Breath digoxin 125 mcg (0.125 mg) tablet 125 mcg PO 3XWK 06/07/18 08/28/22 History fluticasone 250 mcg-salmeterol 50 1 inh inhalation AMHS 06/07/18 08/28/22 History mcg/dose blistr powdr for inhalation (Advair Diskus) magnesium oxide 400 mg (241.3 mg 400 mg PO PM 06/07/18 08/28/22 History magnesium) tablet potassium chloride 20 mEq 20 meq PO QAM 06/07/18 08/28/22 History tablet,extended release(part/cryst) (Klor-Con M) furosemide 40 mg tablet (Lasix) 40 mg PO DAILY 04/25/19 08/28/22 History latanoprost 0.005 % eye drops 1 drp OPB QAM 03/24/20 08/28/22 History albuterol sulfate 1.25 mg/3 mL 1.25 mg inhalation Q4H PRN Wheezing 04/21/21 08/28/22 History solution for nebulization pantoprazole 40 mg tablet,delayed 40 mg PO QAM 10/22/21 08/28/22 History release dutasteride 0.5 mg capsule 0.5 mg PO DAILY #90 caps 01/03/22 08/28/22 Rx clopidogrel 75 mg tablet 75 mg PO QAM 04/20/22 08/28/22 History triamcinolone acetonide 0.1 % 1 applic topical BID PRN rash or 04/20/22 08/28/22 History topical ointment more instead of scratching diclofenac sodium 1 % topical gel 2 g EXT QID PRN pain #100 grams 04/29/22 08/28/22 Rx (Voltaren Arthritis Pain) acetaminophen 325 mg tablet 325 mg PO Q4 PRN Fever Or Pain 08/28/22 08/28/22 History ferrous sulfate 325 mg (65 mg 325 mg PO Q OTHER DAY 08/28/22 08/28/22 History iron) tablet (FeroSul) losartan 50 mg tablet 50 mg PO QAM 08/28/22 08/28/22 History metoprolol succinate 50 mg 50 mg PO DAILY 08/28/22 08/28/22 History tablet,extended release 24 hr multivitamin 1 tab PO DAILY 08/28/22 08/28/22 History methenamine hippurate 1 gram tablet 1 g PO BID 30 days #60 tabs 11/25/22 Rx glipizide 5 mg tablet, extended 5 mg PO DAILY 04/20/23 04/20/23 History release 24 hr Patient History Medical History Anemia Aortic aneurysm unsure of last ultrasound/scan -- no surgical intervention. Moderate aortic root dilatation noted on 2018 echo. No AAA noted on [address] Aortic valve insufficiency Moderate-severe per 11/2018 echo BPH (benign prostatic hyperplasia) CAD (coronary artery disease) (08/21/14) S/p CABG July 2000 receiving KAUR graft to LAD, saphenous vein graft sequentially from the obtuse marginal to diagonal. S/p stenting of prox Cx 2013 Chronic back pain CKD stage 3 due to type 2 diabetes mellitus no specialist COPD (chronic obstructive pulmonary disease) well controlled rare res inh use Dementia mild at present Dementia Dyslipidemia GERD (gastroesophageal reflux disease) GI bleed per pt's > had 3 units PRBC's [facility] during admission in Jul 2021 Glaucoma Hearing deficit [place] History of colon polyps HTN (hypertension) Ischemic cardiomyopathy EF normalized, most recently 55-60% on 11/2018 echo On home oxygen therapy 2 LPM QHS Osteoarthritis Persistent atrial fibrillation Anticoagulation contraindicated per cardiology > ICD Presence of combination internal cardiac defibrillator (ICD) and pacemaker follows w/ Dr. Sanford > [employer]tr[employer] > gets checked electronically > PMH provided by , eduardo when last checked in office. Severe sepsis Tachy-lorna syndrome S/p dual chamber pacer with upgrade to pacer/ICD 2014 Type II diabetes mellitus NIDDM Surgical History History of cardiac cath 1999 --> CABG 2013 - stent - [facility] History of cataract surgery bilat History of colonoscopy History of esophagogastroduodenoscopy (EGD) History of prostate surgery non cancerous History of tonsillectomy History of tooth extraction S/P CABG x 3 1999 S/P coronary artery stent placement July 2014 with stenting of the proximal circumflex Family History Grandmother Diabetes Mother Colon cancer Other Melanoma No family history of adverse response to anesthesia Social History Smoking Status: Former smoker Tobacco Type: Cigarettes Second Hand Exposure: No; Do You Dip or Chew Tobacco: No; Tobacco Cessation Education Requested by Patient: No Hx Alcohol Use: No Hx Substance Use: No Preferred Language: Telugu Communication Ability: Impaired Communication Ability Comment: [place] despite [place] Advertising Campaign Manager Required: No Beliefs That Will Affect Care: None marital status: Current Living Situation: Spouse How many Children do You have: 2 Other Information That Helps Us Care for You: No Feels Safe at Home: Yes Safety Concerns: Feels Safe At This Time Assistive Devices: Cane and Oxygen - at Night Review of Systems Review of Systems: Unobtainable due to cognitive status Physical Exam Constitutional: WD/WN, vitals as above Respiratory: normal respiratory effort, lungs clear to auscultation Cardiovascular: Rate/Rhythm: regular rate and regular rhythm Gastrointestinal (Abdomen): normal bowel sounds, soft, nontender, no hepatosplenomegaly Skin: no rashes, warm and dry Results & Data Vital Signs (Past 12 Hours) Vital Signs Temp Pulse Resp BP BP Pulse Ox O2 Del Method 04/21/23 12:00 36.8 C 78 20 168/73 H 93 04/21/23 11:05 36.5 C 73 20 171/64 H 97 04/21/23 10:56 36.5 C 83 20 171/64 H 97 04/21/23 10:05 36.6 C 70 20 165/71 H 97 04/21/23 09:05 36.6 C 70 18 156/73 H 94 04/21/23 08:35 36.6 C 71 18 171/78 H 94 04/21/23 08:20 36.8 C 70 24 167/73 H 94 04/21/23 08:02 36.6 C 71 20 162/68 H 97 04/21/23 07:43 Room Air 04/21/23 05:14 146/69 H 04/21/23 03:25 37.0 C 69 18 163/69 H 95 04/21/23 02:35 37.0 C 71 18 184/73 H 98 Laboratory Results 04/21/23 04/21/23 04/21/23 Range/Units Unknown 13:56 11:58 WBC 5.32 (4.8-10.8) K/ul RBC 2.31 L (4.70-6.10) M/uL Hgb 7.4 L (14.0-18.0) g/dl Hct 23.5 L (42.0-52.0) % MCV 101.7 H (80.0-100.0) fL MCH 32.0 (25.0-34.0) pg MCHC 31.5 L (32.0-36.0) g/dL RDW Std Deviation 68.2 H (36.4-46.3) fL RDW Coeff of Mar[place]en 19.3 H (11.5-14.5) % Plt Count 222 (130-400) K/uL MPV 9.5 (9.4-12.4) fL Immature Gran % (Auto) 0.6 % Neut % (Auto) 65.4 % Lymph % (Auto) 16.2 % [place] % (Auto) 13.5 % Eos % (Auto) 4.1 % Baso % (Auto) 0.2 % Neut # (Auto) 3.48 (1.40-6.50) K/uL Lymph # (Auto) 0.86 L (1.2-3.4) K/uL [place] # (Auto) 0.72 H (0.11-0.59) K/uL Eos # (Auto) 0.22 (0-0.50) K/uL Baso # (Auto) 0.01 (0-0.2) K/uL Immature Gran # (Auto) 0.03 (0.01-0.20) K/uL Absolute Nucleated RBC 0.05 (0-0.12) K/uL Nucleated RBC % (auto) 0.9 % Polychromasia 1+ Anisocytosis Present Macrocytosis Rouleaux PT (9.0-12.0) Seconds INR (0.9-1.1) APTT (21.0-31.0) Seconds PTT Ratio Sodium (136-145) mmol/L Potassium (3.5-5.1) mmol/L Chloride (98-107) mmol/L Carbon Dioxide (21-32) mmol/L Anion Gap (3-11) BUN (6-23) mg/dl Creatinine (0.6-1.4) mg/dl Est Cr Clr Drug Dosing ml/min Est GFR ( Amer) ml/min Est GFR (Non-Af Amer) ml/min BUN/Creatinine Ratio (10-20) Glucose (70-99(Fasting)) mg/dl POC Glucose 136 H (70-99) mg/dl Estimat Average Glucose mg/dl Hemoglobin A1c (4.5-5.6) % Calcium (8.6-10.3) mg/dl Magnesium (1.7-2.4) mg/dl Total Bilirubin (0.2-1.0) mg/dl AST (13-39) U/L ALT (7-52) U/L Alkaline Phosphatase (34-104) U/L Troponin I High Sens (0-20) pg/ml Total Protein (6.0-8.3) gm/dl Albumin (3.4-5.0) gm/dl Globulin (2.5-4.0) gm/dl Albumin/Globulin Ratio (0.9-2) Urine Color Urine Appearance (Clear) Urine pH (4.5-7.5) Ur Specific [place] (1.000-1.030) Urine Protein (Negative) Urine Glucose (UA) (Negative) Urine Ketones (Negative) Urine Blood (Negative) Urine Nitrite (Negative) Urine Bilirubin (Negative) Urine Urobilinogen (Negative) Ur Leukocyte Esterase (Negative) Stool Occult Bld Scrn Positive A (Negative) Digoxin (0.8-2.0) ng/ml SARS-CoV-2, RNA, NAAT (NEGATIVE) Blood Type Antibody Screen Crossmatch 04/21/23 04/21/23 04/21/23 Range/Units 05:29 05:29 05:29 WBC 5.93 (4.8-10.8) K/ul RBC 1.98 L (4.70-6.10) M/uL Hgb 6.6 L* (14.0-18.0) g/dl Hct 20.5 L* (42.0-52.0) % MCV 103.5 H D (80.0-100.0) fL MCH 33.3 (25.0-34.0) pg MCHC 32.2 (32.0-36.0) g/dL RDW Std Deviation 70.8 H (36.4-46.3) fL RDW Coeff of Maricarmen 19.6 H (11.5-14.5) % Plt Count 205 (130-400) K/uL MPV 9.4 (9.4-12.4) fL Immature Gran % (Auto) 0.3 % Neut % (Auto) 64.3 % Lymph % (Auto) 16.5 % [place] % (Auto) 14.2 % Eos % (Auto) 4.4 % Baso % (Auto) 0.3 % Neut # (Auto) 3.81 (1.40-6.50) K/uL Lymph # (Auto) 0.98 L (1.2-3.4) K/uL [place] # (Auto) 0.84 H (0.11-0.59) K/uL Eos # (Auto) 0.26 (0-0.50) K/uL Baso # (Auto) 0.02 (0-0.2) K/uL Immature Gran # (Auto) 0.02 (0.01-0.20) K/uL Absolute Nucleated RBC 0.05 (0-0.12) K/uL Nucleated RBC % (auto) 0.8 % Polychromasia 1+ Anisocytosis Macrocytosis Rouleaux PT (9.0-12.0) Seconds INR (0.9-1.1) APTT (21.0-31.0) Seconds PTT Ratio Sodium 140 (136-145) mmol/L Potassium 3.9 (3.5-5.1) mmol/L Chloride 105 (98-107) mmol/L Carbon Dioxide 23 (21-32) mmol/L Anion Gap 12 H (3-11) BUN 35 H (6-23) mg/dl Creatinine 1.71 H (0.6-1.4) mg/dl Est Cr Clr Drug Dosing 34.9 ml/min Est GFR ( Amer) 40.3 ml/min Est GFR (Non-Af Amer) 34.7 ml/min BUN/Creatinine Ratio 20.5 H (10-20) Glucose 150 H (70-99(Fasting)) mg/dl POC Glucose (70-99) mg/dl Estimat Average Glucose 128 mg/dl Hemoglobin A1c 6.1 H (4.5-5.6) % Calcium 8.2 L (8.6-10.3) mg/dl Magnesium 1.9 (1.7-2.4) mg/dl Total Bilirubin (0.2-1.0) mg/dl AST (13-39) U/L ALT (7-52) U/L Alkaline Phosphatase (34-104) U/L Troponin I High Sens (0-20) pg/ml Total Protein (6.0-8.3) gm/dl Albumin (3.4-5.0) gm/dl Globulin (2.5-4.0) gm/dl Albumin/Globulin Ratio (0.9-2) Urine Color Urine Appearance (Clear) Urine pH (4.5-7.5) Ur Specific [place] (1.000-1.030) Urine Protein (Negative) Urine Glucose (UA) (Negative) Urine Ketones (Negative) Urine Blood (Negative) Urine Nitrite (Negative) Urine Bilirubin (Negative) Urine Urobilinogen (Negative) Ur Leukocyte Esterase (Negative) Stool Occult Bld Scrn (Negative) Digoxin (0.8-2.0) ng/ml SARS-CoV-2, RNA, NAAT (NEGATIVE) Blood Type Antibody Screen Crossmatch 04/21/23 04/20/23 04/20/23 Range/Units 00:28 18:18 17:20 WBC (4.8-10.8) K/ul RBC (4.70-6.10) M/uL Hgb (14.0-18.0) g/dl Hct (42.0-52.0) % MCV (80.0-100.0) fL MCH (25.0-34.0) pg MCHC (32.0-36.0) g/dL RDW Std Deviation (36.4-46.3) fL RDW Coeff of Mar[place]en (11.5-14.5) % Plt Count (130-400) K/uL MPV (9.4-12.4) fL Immature Gran % (Auto) % Neut % (Auto) % Lymph % (Auto) % [place] % (Auto) % Eos % (Auto) % Baso % (Auto) % Neut # (Auto) (1.40-6.50) K/uL Lymph # (Auto) (1.2-3.4) K/uL [place] # (Auto) (0.11-0.59) K/uL Eos # (Auto) (0-0.50) K/uL Baso # (Auto) (0-0.2) K/uL Immature Gran # (Auto) (0.01-0.20) K/uL Absolute Nucleated RBC (0-0.12) K/uL Nucleated RBC % (auto) % Polychromasia Anisocytosis Macrocytosis Rouleaux PT (9.0-12.0) Seconds INR (0.9-1.1) APTT (21.0-31.0) Seconds PTT Ratio Sodium (136-145) mmol/L Potassium (3.5-5.1) mmol/L Chloride (98-107) mmol/L Carbon Dioxide (21-32) mmol/L Anion Gap (3-11) BUN (6-23) mg/dl Creatinine (0.6-1.4) mg/dl Est Cr Clr Drug Dosing ml/min Est GFR ( Amer) ml/min Est GFR (Non-Af Amer) ml/min BUN/Creatinine Ratio (10-20) Glucose (70-99(Fasting)) mg/dl POC Glucose 112 H (70-99) mg/dl Estimat Average Glucose mg/dl Hemoglobin A1c (4.5-5.6) % Calcium (8.6-10.3) mg/dl Magnesium (1.7-2.4) mg/dl Total Bilirubin (0.2-1.0) mg/dl AST (13-39) U/L ALT (7-52) U/L Alkaline Phosphatase (34-104) U/L Troponin I High Sens (0-20) pg/ml Total Protein (6.0-8.3) gm/dl Albumin (3.4-5.0) gm/dl Globulin (2.5-4.0) gm/dl Albumin/Globulin Ratio (0.9-2) Urine Color Yellow Urine Appearance Clear (Clear) Urine pH 5.0 (4.5-7.5) Ur Specific [place] 1.012 (1.000-1.030) Urine Protein Negative (Negative) Urine Glucose (UA) Negative (Negative) Urine Ketones Negative (Negative) Urine Blood Negative (Negative) Urine Nitrite Negative (Negative) Urine Bilirubin Negative (Negative) Urine Urobilinogen Negative (Negative) Ur Leukocyte Esterase Negative (Negative) Stool Occult Bld Scrn (Negative) Digoxin (0.8-2.0) ng/ml SARS-CoV-2, RNA, NAAT NEGATIVE (NEGATIVE) Blood Type Antibody Screen Crossmatch 04/20/23 04/20/23 04/20/23 Range/Units 16:58 16:58 16:58 WBC 6.19 (4.8-10.8) K/ul RBC 1.59 L (4.70-6.10) M/uL Hgb 5.3 L* (14.0-18.0) g/dl Hct 17.5 L* (42.0-52.0) % MCV 110.1 H (80.0-100.0) fL MCH 33.3 (25.0-34.0) pg MCHC 30.3 L (32.0-36.0) g/dL RDW Std Deviation 70.7 H (36.4-46.3) fL RDW Coeff of Mar[place] 18.3 H (11.5-14.5) % Plt Count 254 (130-400) K/uL MPV 9.4 (9.4-12.4) fL Immature Gran % (Auto) 0.6 % Neut % (Auto) 65.4 % Lymph % (Auto) 16.2 % [place] % (Auto) 13.9 % Eos % (Auto) 3.6 % Baso % (Auto) 0.3 % Neut # (Auto) 4.05 (1.40-6.50) K/uL Lymph # (Auto) 1.00 L (1.2-3.4) K/uL [place] # (Auto) 0.86 H (0.11-0.59) K/uL Eos # (Auto) 0.22 (0-0.50) K/uL Baso # (Auto) 0.02 (0-0.2) K/uL Immature Gran # (Auto) 0.04 (0.01-0.20) K/uL Absolute Nucleated RBC 0.04 (0-0.12) K/uL Nucleated RBC % (auto) 0.6 % Polychromasia 1+ Anisocytosis Macrocytosis Present Rouleaux 1+ PT (9.0-12.0) Seconds INR (0.9-1.1) APTT (21.0-31.0) Seconds PTT Ratio Sodium 143 (136-145) mmol/L Potassium 4.1 (3.5-5.1) mmol/L Chloride 107 (98-107) mmol/L Carbon Dioxide 24 (21-32) mmol/L Anion Gap 12 H (3-11) BUN 38 H (6-23) mg/dl Creatinine 1.71 H (0.6-1.4) mg/dl Est Cr Clr Drug Dosing 34.9 ml/min Est GFR ( Amer) 40.3 ml/min Est GFR (Non-Af Amer) 34.7 ml/min BUN/Creatinine Ratio 22.2 H (10-20) Glucose 186 H (70-99(Fasting)) mg/dl POC Glucose (70-99) mg/dl Estimat Average Glucose mg/dl Hemoglobin A1c (4.5-5.6) % Calcium 8.6 (8.6-10.3) mg/dl Magnesium 2.0 (1.7-2.4) mg/dl Total Bilirubin 0.4 (0.2-1.0) mg/dl AST 14 (13-39) U/L ALT 6 L (7-52) U/L Alkaline Phosphatase 31 L (34-104) U/L Troponin I High Sens 20.7 H (0-20) pg/ml Total Protein 7.7 (6.0-8.3) gm/dl Albumin 3.1 L (3.4-5.0) gm/dl Globulin 4.6 H (2.5-4.0) gm/dl Albumin/Globulin Ratio 0.7 L (0.9-2) Urine Color Urine Appearance (Clear) Urine pH (4.5-7.5) Ur Specific [place] (1.000-1.030) Urine Protein (Negative) Urine Glucose (UA) (Negative) Urine Ketones (Negative) Urine Blood (Negative) Urine Nitrite (Negative) Urine Bilirubin (Negative) Urine Urobilinogen (Negative) Ur Leukocyte Esterase (Negative) Stool Occult Bld Scrn (Negative) Digoxin (0.8-2.0) ng/ml SARS-CoV-2, RNA, NAAT (NEGATIVE) Blood Type A Positive Antibody Screen NEGATIVE Crossmatch See Detail 04/20/23 04/20/23 Range/Units 16:53 16:53 WBC (4.8-10.8) K/ul RBC (4.70-6.10) M/uL Hgb (14.0-18.0) g/dl Hct (42.0-52.0) % MCV (80.0-100.0) fL MCH (25.0-34.0) pg MCHC (32.0-36.0) g/dL RDW Std Deviation (36.4-46.3) fL RDW Coeff of [place] (11.5-14.5) % Plt Count (130-400) K/uL MPV (9.4-12.4) fL Immature Gran % (Auto) % Neut % (Auto) % Lymph % (Auto) % [place] % (Auto) % Eos % (Auto) % Baso % (Auto) % Neut # (Auto) (1.40-6.50) K/uL Lymph # (Auto) (1.2-3.4) K/uL [place] # (Auto) (0.11-0.59) K/uL Eos # (Auto) (0-0.50) K/uL Baso # (Auto) (0-0.2) K/uL Immature Gran # (Auto) (0.01-0.20) K/uL Absolute Nucleated RBC (0-0.12) K/uL Nucleated RBC % (auto) % Polychromasia Anisocytosis Macrocytosis Rouleaux PT 11.4 (9.0-12.0) Seconds INR 1.0 (0.9-1.1) APTT 21.9 (21.0-31.0) Seconds PTT Ratio 0.8 Sodium (136-145) mmol/L Potassium (3.5-5.1) mmol/L Chloride (98-107) mmol/L Carbon Dioxide (21-32) mmol/L Anion Gap (3-11) BUN (6-23) mg/dl Creatinine (0.6-1.4) mg/dl Est Cr Clr Drug Dosing ml/min Est GFR ( Amer) ml/min Est GFR (Non-Af Amer) ml/min BUN/Creatinine Ratio (10-20) Glucose (70-99(Fasting)) mg/dl POC Glucose (70-99) mg/dl Estimat Average Glucose mg/dl Hemoglobin A1c (4.5-5.6) % Calcium (8.6-10.3) mg/dl Magnesium (1.7-2.4) mg/dl Total Bilirubin (0.2-1.0) mg/dl AST (13-39) U/L ALT (7-52) U/L Alkaline Phosphatase (34-104) U/L Troponin I High Sens (0-20) pg/ml Total Protein (6.0-8.3) gm/dl Albumin (3.4-5.0) gm/dl Globulin (2.5-4.0) gm/dl Albumin/Globulin Ratio (0.9-2) Urine Color Urine Appearance (Clear) Urine pH (4.5-7.5) Ur Specific [place] (1.000-1.030) Urine Protein (Negative) Urine Glucose (UA) (Negative) Urine Ketones (Negative) Urine Blood (Negative) Urine Nitrite (Negative) Urine Bilirubin (Negative) Urine Urobilinogen (Negative) Ur Leukocyte Esterase (Negative) Stool Occult Bld Scrn (Negative) Digoxin 0.5 L (0.8-2.0) ng/ml SARS-CoV-2, RNA, NAAT (NEGATIVE) Blood Type Antibody Screen Crossmatch
[2023-04-21 14:42] LABS: Anisocytosis Present; Polychromasia 1+
[2023-04-21] MEDS: DIGOXIN 0.125 MG TAB PO SCH (16:19)
[2023-04-21] MEDS: PANTOprazole 40 MG in SYRINGE 0 ML IV SCH (20:43)
[2023-04-22 06:14] LABS: Basophils # (auto) 0.02 K/uL (0-0.2); Basophils % (auto) 0.4 %; Eosinophils # (auto) 0.32 K/uL (0-0.50); Eosinophils % (auto) 6.7 %; Hemoglobin 7.8 g/dl (14.0-18.0); Immature Granulocytes # (auto) 0.03 K/uL (0.01-0.20); Immature Granulocytes % (auto) 0.6 %; Lymphocytes # (auto) 1.03 K/uL (1.2-3.4); Lymphocytes % (auto) 21.6 %; Mean Corpuscular Hgb Conc 31.2 g/dL (32.0-36.0); Mean Corpuscular Volume 102.5 fL (80.0-100.0); Mean Platelet Volume 9.4 fL (9.4-12.4); Monocytes # (auto) 0.64 K/uL (0.11-0.59); Monocytes % (auto) 13.4 %; Neutrophils # (auto) 2.73 K/uL (1.40-6.50); Neutrophils % (auto) 57.3 %; Nucleated RBC # (auto) 0.02 K/uL (0-0.12); Nucleated RBC % (auto) 0.4 %; Platelet Count 222 K/uL (130-400); RDW Coefficient of Variation 18.8 % (11.5-14.5); RDW Standard Deviation 68.2 fL (36.4-46.3); Red Blood Count 2.44 M/uL (4.70-6.10); White Blood Count 4.77 K/ul (4.8-10.8)
[2023-04-22 06:35] LABS: BUN Creatinine Ratio 22.1 (10-20); Calcium 8.5 mg/dl (8.6-10.3); Creatinine Clr Calc Pharmacy 36.7 ml/min; Est GFR (African American) 42.7 ml/min; Est GFR (Non-African American) 36.8 ml/min; Potassium 3.7 mmol/L (3.5-5.1)
[2023-04-22 06:43] LABS: Polychromasia 1+
[2023-04-22] MEDS: METOPROLOL SUCC 50MG EXT REL TAB PO SCH (08:40)
[2023-04-22] MEDS: FERROUS SULFATE 325 MG TAB PO SCH (08:40)
[2023-04-22] MEDS: INSULIN ASPART PER UNIT CHARGE SC SCH ×4 (08:40→20:45)
[2023-04-22] MEDS: METHENAMINE HIPPURATE 1 GM TAB PO SCH ×2 (08:40→20:47)
[2023-04-22] MEDS: POTASSIUM CHLORIDE CRTAB 20 MEQ TABCR PO SCH (08:40)
[2023-04-22] MEDS: FLUTICASONE/VILANTEROL 200/25MCG 14 PUFFS/INHALER INH SCH (08:40)
[2023-04-22] MEDS: CLOPIDOGREL BISULFATE 75 MG TAB PO SCH (08:40)
[2023-04-22] MEDS: PANTOprazole 40 MG in SYRINGE 0 ML IV SCH ×2 (08:40→20:47)
[2023-04-22] MEDS: FINASTERIDE 5 MG TAB PO SCH (08:41)
[2023-04-22] MEDS: FUROSEMIDE 40 MG TAB PO SCH (08:41)
[2023-04-22] MEDS: LOSARTAN POTASSIUM 50 MG TAB PO SCH (08:41)
[2023-04-22] MEDS: MULTIVITAMIN TAB PO SCH (08:41)
[2023-04-22] MEDS: LATANOPROST 0.005% OP SOLN 2.5 ML BTL OPB SCH (08:41)
--- NOTE | 2023-04-22 12:22 | Hospitalist Progress Note ---
Date of Service April 22, 2023 Assessment & Plan (1) Anemia: Plan: 88-year-old male with history of CAD s/p CABG s/p stent, diabetes, history of multiple myeloma not on chemo, conservative management gets biweekly labs was called in by oncology for hemoglobin of 5.1 and also patient lately feeling weak and falling down and low appetite. Symptomatic anemia status post 3 unit of packed RBC Possible GI bleed Hemoglobin downtrending over several weeks; was found to have outpatient hemoglobin of 5.1. Repeat hemoglobin here on admission was 5.3 No obvious signs of bleedings Received 3 units of packed RBC so far. Hemoccult positive Last endoscopy in October 2022no significant signs or symptoms of bleeding. Plan for endoscopy on Monday. N.p.o. from midnight. PPI twice daily History of multiple myeloma Not getting any chemo Follow-up heme-onc His oncologist Dr. Sykes updated. chronic kidney stage III Presented with creatinine 1.7 Similar to his baseline. Type II diabetes We will hold glipizide Sliding scale A1c of 6.1 Possible aspiration Speech evaluation CAD s/p CABG s/p stent On Plavix metoprolol succinate Tachybradycardia syndrome s/p pacemaker Chronic A-fib On digoxin and metoprolol succinate Not on anticoagulation Chronic diastolic CHF On Lasix We will monitor for volume overload History of asthma Continue home inhalers History of hypertension On losartan and metoprolol succinate and Lasix We will monitor the blood pressure History of duodenal ulcer Protonix DVT prophylaxis SCDs Disposition close monitoring med/tele. CODE STATUS DNR/DNI Updated his over the phone. Answered questions/queries. Time spent evaluating patient, direct bedside care, chart review, placing orders, interpretation of diagnostic studies, discussion with consultants, patient, and family members, as well as other required patient management activities is 60 minutes. Please note the above document was generated using voice recognition software. It may contain grammatical, syntax or spelling errors. Any formal questions or concerns about the content, text or information contained within the body of this dictation should be directly addressed to the provider for clarification (2) Multiple myeloma: (3) DAPHNE (acute kidney injury): Admission and Anticipated Discharge Date Admission Date: April 20, 2023 Subjective Patient seen and examined at bedside. He reports that he is feeling better. Hemodynamically stable Review of Systems Review of Systems: All systems reviewed & are unremarkable except as noted in Subjective Physical Exam Physical Exam: General- alert and awake. Not in distress. Hard of hearing. Head- atraumatic Eyes- PERRL, pallor present, anicteric ENT- oropharynx clear Neck- supple, no JVD, no adenopathy, carotids +2/2, no bruits appreciated Lungs- clear to auscultation and percussion Heart- regular rhythm; no murmur, no gallop, no rub appreciated Abdomen- normal bowel sounds, soft, nontender, no masses or hepatosplenomegaly Extremities- no pretibial edema, no erythema seen Neuro- alert, awake, nio facial droop obeys simple commands Skin- warm & dry Results & Data Results & Data Vital Signs (Past 12 Hours) Vital Signs Temp Pulse Pulse Resp BP BP Pulse Ox 04/22/23 11:50 36.4 C L 70 18 150/79 H 95 04/22/23 10:14 04/22/23 07:53 36.5 C 68 18 152/66 H 96 04/22/23 07:24 72 04/22/23 02:56 37.0 C 71 20 153/73 H 98 O2 Del Method 04/22/23 11:50 Room Air 04/22/23 10:14 Room Air 04/22/23 07:53 Room Air 04/22/23 07:24 04/22/23 02:56 Room Air Laboratory Results Laboratory Results WBC 4.77 K/ul (4.8-10.8) L 04/22/23 05:49 RBC 2.44 M/uL (4.70-6.10) L 04/22/23 05:49 Hgb 7.8 g/dl (14.0-18.0) L 04/22/23 05:49 Hct 25.0 % (42.0-52.0) L 04/22/23 05:49 MCV 102.5 fL (80.0-100.0) H 04/22/23 05:49 MCH 32.0 pg (25.0-34.0) 04/22/23 05:49 MCHC 31.2 g/dL (32.0-36.0) L 04/22/23 05:49 RDW Std Deviation 68.2 fL (36.4-46.3) H 04/22/23 05:49 RDW Coeff of Maricarmen 18.8 % (11.5-14.5) H 04/22/23 05:49 Plt Count 222 K/uL (130-400) 04/22/23 05:49 MPV 9.4 fL (9.4-12.4) 04/22/23 05:49 Immature Gran % (Auto) 0.6 % 04/22/23 05:49 Neut % (Auto) 57.3 % 04/22/23 05:49 Lymph % (Auto) 21.6 % 04/22/23 05:49 [place] % (Auto) 13.4 % 04/22/23 05:49 Eos % (Auto) 6.7 % 04/22/23 05:49 Baso % (Auto) 0.4 % 04/22/23 05:49 Neut # (Auto) 2.73 K/uL (1.40-6.50) 04/22/23 05:49 Lymph # (Auto) 1.03 K/uL (1.2-3.4) L 04/22/23 05:49 [place] # (Auto) 0.64 K/uL (0.11-0.59) H 04/22/23 05:49 Eos # (Auto) 0.32 K/uL (0-0.50) 04/22/23 05:49 Baso # (Auto) 0.02 K/uL (0-0.2) 04/22/23 05:49 Immature Gran # (Auto) 0.03 K/uL (0.01-0.20) 04/22/23 05:49 Absolute Nucleated RBC 0.02 K/uL (0-0.12) 04/22/23 05:49 Nucleated RBC % (auto) 0.4 % 04/22/23 05:49 Polychromasia 1+ 04/22/23 05:49 Anisocytosis Present 04/21/23 13:56 Macrocytosis Present 04/20/23 16:58 Rouleaux 1+ 04/20/23 16:58 PT 11.4 Seconds (9.0-12.0) 04/20/23 16:53 INR 1.0 (0.9-1.1) 04/20/23 16:53 APTT 21.9 Seconds (21.0-31.0) 04/20/23 16:53 PTT Ratio 0.8 04/20/23 16:53 Sodium 143 mmol/L (136-145) 04/22/23 05:49 Potassium 3.7 mmol/L (3.5-5.1) 04/22/23 05:49 Chloride 106 mmol/L (98-107) 04/22/23 05:49 Carbon Dioxide 25 mmol/L (21-32) 04/22/23 05:49 Anion Gap 12 (3-11) H 04/22/23 05:49 BUN 36 mg/dl (6-23) H 04/22/23 05:49 Creatinine 1.63 mg/dl (0.6-1.4) H 04/22/23 05:49 Est Cr Clr Drug Dosing 36.7 ml/min 04/22/23 05:49 Est GFR ( Amer) 42.7 ml/min 04/22/23 05:49 Est GFR (Non-Af Amer) 36.8 ml/min 04/22/23 05:49 BUN/Creatinine Ratio 22.1 (10-20) H 04/22/23 05:49 Glucose 120 mg/dl (70-99(Fasting)) H 04/22/23 05:49 POC Glucose 166 mg/dl (70-99) H 04/22/23 11:39 Estimat Average Glucose 128 mg/dl 04/21/23 05:29 Hemoglobin A1c 6.1 % (4.5-5.6) H 04/21/23 05:29 Calcium 8.5 mg/dl (8.6-10.3) L 04/22/23 05:49 Magnesium 1.9 mg/dl (1.7-2.4) 04/21/23 05:29 Total Bilirubin 0.4 mg/dl (0.2-1.0) 04/20/23 16:58 AST 14 U/L (13-39) 04/20/23 16:58 ALT 6 U/L (7-52) L 04/20/23 16:58 Alkaline Phosphatase 31 U/L (34-104) L 04/20/23 16:58 Troponin I High Sens 20.7 pg/ml (0-20) H 04/20/23 16:58 Total Protein 7.7 gm/dl (6.0-8.3) 04/20/23 16:58 Albumin 3.1 gm/dl (3.4-5.0) L 04/20/23 16:58 Globulin 4.6 gm/dl (2.5-4.0) H 04/20/23 16:58 Albumin/Globulin Ratio 0.7 (0.9-2) L 04/20/23 16:58 Urine Color Yellow 04/20/23 18:18 Urine Appearance Clear (Clear) 04/20/23 18:18 Urine pH 5.0 (4.5-7.5) 04/20/23 18:18 Ur Specific [place] 1.012 (1.000-1.030) 04/20/23 18:18 Urine Protein Negative (Negative) 04/20/23 18:18 Urine Glucose (UA) Negative (Negative) 04/20/23 18:18 Urine Ketones Negative (Negative) 04/20/23 18:18 Urine Blood Negative (Negative) 04/20/23 18:18 Urine Nitrite Negative (Negative) 04/20/23 18:18 Urine Bilirubin Negative (Negative) 04/20/23 18:18 Urine Urobilinogen Negative (Negative) 04/20/23 18:18 Ur Leukocyte Esterase Negative (Negative) 04/20/23 18:18 Stool Occult Bld Scrn Positive (Negative) A 04/21/23 Unknown Digoxin 0.5 ng/ml (0.8-2.0) L 04/20/23 16:53 SARS-CoV-2, RNA, NAAT NEGATIVE (NEGATIVE) 04/20/23 17:20 Blood Type A Positive 04/20/23 16:58 Antibody Screen NEGATIVE 04/20/23 16:58 Crossmatch See Detail 04/20/23 16:58 Impressions Chest X-Ray 04/20/23 16:47 XR chest 1V portable CLINICAL HISTORY: Weakness. COMPARISON STUDY: Chest radiograph August 28, 2022. FINDINGS: Left subclavian biventricular pacer/AICD is in place. There is moderate cardiomegaly. There is pulmonary vascular congestion. No consolidation is identified. There is no pneumothorax or pleural effusion. IMPRESSION: Cardiomegaly with pulmonary vascular congestion. ACT 112: Negative or not required by law. Electronically signed by: Keith Hopper M.D. 04/20/2023 5:[address] 04/20/23 17:12 CT OF THE CERVICAL SPINE WITHOUT CONTRAST CLINICAL HISTORY: fall COMPARISON STUDY: No previous studies for comparison. TECHNIQUE: Helical axial images of the cervical spine were obtained without IV contrast. Sagittal and coronal reconstructions were viewed. Automated exposure control was utilized for the study. A dose lowering technique was utilized adhering to the principles of ALARA. FINDINGS: Alignment of the cervical spine is anatomic. Vertebral body heights are maintained. No acute cervical spine fracture or subluxation is present. There is no prevertebral edema. Facet joints are intact. Note is made of moder ate multilevel disc space narrowing, osteophytosis and facet arthrosis within the cervical spine. IMPRESSION: No acute cervical spine fracture or subluxation. ACT 112: Negative or not required by law. Electronically signed by: Keith Hopper M.D. 04/20/2023 6:[address] 04/20/23 17:[address] WITHOUT CONTRAST CLINICAL HISTORY: fall COMPARISON STUDY: Head CT August 28, 2022. TECHNIQUE: A maxillofacial CT was performed without IV contrast. Coronal and sagittal reformats were viewed. Automated exposure control was utilized for the study. A dose lowering technique was utilized adhering to the principles of ALARA. FINDINGS: Globes are intact. There is no retrobulbar hematoma. There is mild polypoid sinus mucosal thickening. There is no acute facial bone fracture. Alignment of the temporomandibular joints is anatomic. The orbital floors are intact. IMPRESSION: No acute facial fracture. ACT 112: Negative or not required by law. Electronically signed by: Keith Hopper M.D. 04/20/2023 6:[address] 04/20/23 17:12 CT OF THE HEAD WITHOUT CONTRAST CLINICAL HISTORY: fall COMPARISON STUDY: Head CT August 28, 2022. TECHNIQUE: Helical axial images of the head were obtained without IV contrast. Automated exposure control was utilized for the study. A dose lowering technique was utilized adhering to the principles of ALARA. FINDINGS: No acute intracranial hemorrhage, midline shift or mass effect is present. The ventricular system is unremarkable. The basal cisterns are patent. No extra-axial collections are present. There are no findings to suggest acute dural sinus thrombosis or acute territorial infarct. No significant calvarial abnormalities are present. Visualized portions of the sinuses and mastoid air cells are clear. IMPRESSION: 1. No acute intracranial findings. No change in appearance of the brain. 2. No acute calvarial fracture. ACT 112: Negative or not required by law. Electronically signed by: Keith Hopper M.D. 04/20/2023 6:07 PM Pelvis X-Ray 04/20/23 17:13 XR pelvis 1-2V routine CLINICAL HISTORY: fall COMPARISON: Pelvis and left hip radiograph August 28, 2022. CT of the abdomen and pelvis September 06, 2018. FINDINGS: Sacroiliac joints and symphysis pubis are intact. No acute fracture is identified within the pelvis or hips. A proximal left femoral internal fixation is noted. A lytic lesion within the proximal diaphysis of the left femur is partially imaged. This was shown on radiographs of August 28, 2022. IMPRESSION: 1. No acute fracture within the pelvis or hips. 2. Status post proximal left femoral internal fixation. Redemonstration of an indeterminate lytic lesion within the proximal diaphysis of the left femur, partially imaged on this study. ACT 112: Negative or not required by law. Electronically signed by: Keith Hopper M.D. 04/20/2023 5:46 PM
[2023-04-22] MEDS: MAGNESIUM OXIDE 400 MG TAB PO SCH (20:47)
[2023-04-23 06:21] LABS: Basophils # (auto) 0.02 K/uL (0-0.2); Basophils % (auto) 0.4 %; Eosinophils # (auto) 0.32 K/uL (0-0.50); Eosinophils % (auto) 5.9 %; Hemoglobin 7.5 g/dl (14.0-18.0); Immature Granulocytes # (auto) 0.02 K/uL (0.01-0.20); Immature Granulocytes % (auto) 0.4 %; Lymphocytes # (auto) 1.29 K/uL (1.2-3.4); Lymphocytes % (auto) 23.9 %; Mean Corpuscular Hemoglobin 31.9 pg (25.0-34.0); Mean Corpuscular Hgb Conc 31.3 g/dL (32.0-36.0); Mean Corpuscular Volume 102.1 fL (80.0-100.0); Mean Platelet Volume 9.6 fL (9.4-12.4); Monocytes # (auto) 0.67 K/uL (0.11-0.59); Monocytes % (auto) 12.4 %; Neutrophils # (auto) 3.08 K/uL (1.40-6.50); Nucleated RBC # (auto) 0.02 K/uL (0-0.12); Nucleated RBC % (auto) 0.4 %; Platelet Count 229 K/uL (130-400); RDW Coefficient of Variation 18.1 % (11.5-14.5); RDW Standard Deviation 65.1 fL (36.4-46.3); Red Blood Count 2.35 M/uL (4.70-6.10)
[2023-04-23 06:38] LABS: BUN Creatinine Ratio 24.4 (10-20); Calcium 8.6 mg/dl (8.6-10.3); Creatinine Clr Calc Pharmacy 36.3 ml/min; Est GFR (African American) 42.3 ml/min; Est GFR (Non-African American) 36.5 ml/min; Potassium 3.7 mmol/L (3.5-5.1)
[2023-04-23 06:42] LABS: Anisocytosis Present; Polychromasia 1+
[2023-04-23] MEDS: PANTOprazole 40 MG in SYRINGE 0 ML IV SCH ×2 (08:21→20:25)
[2023-04-23] MEDS: FUROSEMIDE 40 MG TAB PO SCH (08:21)
[2023-04-23] MEDS: LATANOPROST 0.005% OP SOLN 2.5 ML BTL OPB SCH (08:21)
[2023-04-23] MEDS: METOPROLOL SUCC 50MG EXT REL TAB PO SCH (08:21)
[2023-04-23] MEDS: LOSARTAN POTASSIUM 50 MG TAB PO SCH (08:21)
[2023-04-23] MEDS: CLOPIDOGREL BISULFATE 75 MG TAB PO SCH (08:21)
[2023-04-23] MEDS: POTASSIUM CHLORIDE CRTAB 20 MEQ TABCR PO SCH (08:21)
[2023-04-23] MEDS: FLUTICASONE/VILANTEROL 200/25MCG 14 PUFFS/INHALER INH SCH (08:21)
[2023-04-23] MEDS: MULTIVITAMIN TAB PO SCH (08:21)
[2023-04-23] MEDS: FINASTERIDE 5 MG TAB PO SCH (08:21)
[2023-04-23] MEDS: METHENAMINE HIPPURATE 1 GM TAB PO SCH ×2 (08:21→20:25)
[2023-04-23] MEDS: INSULIN ASPART PER UNIT CHARGE SC SCH ×4 (08:24→20:24)
--- NOTE | 2023-04-23 13:58 | Hospitalist Progress Note ---
Date of Service April 23, 2023 Assessment & Plan (1) Anemia: Plan: 88-year-old male with history of CAD s/p CABG s/p stent, diabetes, history of multiple myeloma not on chemo, conservative management gets biweekly labs was called in by oncology for hemoglobin of 5.1 and also patient lately feeling weak and falling down and low appetite. Symptomatic anemia status post 3 unit of packed RBC Possible GI bleed Hemoglobin downtrending over several weeks; was found to have outpatient hemoglobin of 5.1. Repeat hemoglobin here on admission was 5.3 No obvious signs of bleedings Received 3 units of packed RBC so far. Hemoccult positive Last endoscopy in October 2022no significant signs or symptoms of bleeding. Plan for endoscopy on Monday. N.p.o. from midnight. PPI twice daily History of multiple myeloma Not getting any chemo Follow-up heme-onc His oncologist Dr. Sykes updated. chronic kidney stage III Presented with creatinine 1.7 Similar to his baseline. Type II diabetes We will hold glipizide Sliding scale A1c of 6.1 Possible aspiration Speech evaluation CAD s/p CABG s/p stent On Plavix metoprolol succinate Tachybradycardia syndrome s/p pacemaker Chronic A-fib On digoxin and metoprolol succinate Not on anticoagulation Chronic diastolic CHF On Lasix We will monitor for volume overload History of asthma Continue home inhalers History of hypertension On losartan and metoprolol succinate and Lasix We will monitor the blood pressure History of duodenal ulcer Protonix DVT prophylaxis SCDs Disposition close monitoring med/tele. CODE STATUS DNR/DNI Time spent evaluating patient, direct bedside care, chart review, placing orders, interpretation of diagnostic studies, discussion with consultants, patient, and family members, as well as other required patient management activities is 60 minutes. Please note the above document was generated using voice recognition software. It may contain grammatical, syntax or spelling errors. Any formal questions or concerns about the content, text or information contained within the body of this dictation should be directly addressed to the provider for clarification (2) Multiple myeloma: (3) DAPHNE (acute kidney injury): Admission and Anticipated Discharge Date Admission Date: April 20, 2023 Subjective Patient seen and examined at bedside. He is lying in the bed comfortably; not in distress. Hemoglobin stable. Review of Systems Review of Systems: All systems reviewed & are unremarkable except as noted in Subjective Physical Exam Physical Exam: General- alert and awake. Not in distress. Hard of hearing. Head- atraumatic Eyes- PERRL, pallor present, anicteric ENT- oropharynx clear Neck- supple, no JVD, no adenopathy, carotids +2/2, no bruits appreciated Lungs- clear to auscultation and percussion Heart- regular rhythm; no murmur, no gallop, no rub appreciated Abdomen- normal bowel sounds, soft, nontender, no masses or hepatosplenomegaly Extremities- no pretibial edema, no erythema seen Neuro- alert, awake, nio facial droop obeys simple commands Skin- warm & dry Results & Data Results & Data Vital Signs (Past 12 Hours) Vital Signs Temp Pulse Pulse Resp BP BP Pulse Ox 04/23/23 11:25 36.9 C 70 16 127/62 97 04/23/23 09:23 04/23/23 07:16 36.6 C 72 17 150/66 H 97 04/23/23 06:50 70 04/23/23 03:00 36.9 C 74 20 151/72 H 97 O2 Del Method 04/23/23 11:25 Room Air 04/23/23 09:23 Room Air 04/23/23 07:16 Room Air 04/23/23 06:50 04/23/23 03:00 Room Air Laboratory Results Laboratory Results WBC 5.40 K/ul (4.8-10.8) 04/23/23 05:44 RBC 2.35 M/uL (4.70-6.10) L 04/23/23 05:44 Hgb 7.5 g/dl (14.0-18.0) L 04/23/23 05:44 Hct 24.0 % (42.0-52.0) L 04/23/23 05:44 MCV 102.1 fL (80.0-100.0) H 04/23/23 05:44 MCH 31.9 pg (25.0-34.0) 04/23/23 05:44 MCHC 31.3 g/dL (32.0-36.0) L 04/23/23 05:44 RDW Std Deviation 65.1 fL (36.4-46.3) H 04/23/23 05:44 RDW Coeff of Maricarmen 18.1 % (11.5-14.5) H 04/23/23 05:44 Plt Count 229 K/uL (130-400) 04/23/23 05:44 MPV 9.6 fL (9.4-12.4) 04/23/23 05:44 Immature Gran % (Auto) 0.4 % 04/23/23 05:44 Neut % (Auto) 57.0 % 04/23/23 05:44 Lymph % (Auto) 23.9 % 04/23/23 05:44 [place] % (Auto) 12.4 % 04/23/23 05:44 Eos % (Auto) 5.9 % 04/23/23 05:44 Baso % (Auto) 0.4 % 04/23/23 05:44 Neut # (Auto) 3.08 K/uL (1.40-6.50) 04/23/23 05:44 Lymph # (Auto) 1.29 K/uL (1.2-3.4) 04/23/23 05:44 [place] # (Auto) 0.67 K/uL (0.11-0.59) H 04/23/23 05:44 Eos # (Auto) 0.32 K/uL (0-0.50) 04/23/23 05:44 Baso # (Auto) 0.02 K/uL (0-0.2) 04/23/23 05:44 Immature Gran # (Auto) 0.02 K/uL (0.01-0.20) 04/23/23 05:44 Absolute Nucleated RBC 0.02 K/uL (0-0.12) 04/23/23 05:44 Nucleated RBC % (auto) 0.4 % 04/23/23 05:44 Polychromasia 1+ 04/23/23 05:44 Anisocytosis Present 04/23/23 05:44 Macrocytosis Present 04/20/23 16:58 Rouleaux 1+ 04/20/23 16:58 PT 11.4 Seconds (9.0-12.0) 04/20/23 16:53 INR 1.0 (0.9-1.1) 04/20/23 16:53 APTT 21.9 Seconds (21.0-31.0) 04/20/23 16:53 PTT Ratio 0.8 04/20/23 16:53 Sodium 141 mmol/L (136-145) 04/23/23 05:44 Potassium 3.7 mmol/L (3.5-5.1) 04/23/23 05:44 Chloride 106 mmol/L (98-107) 04/23/23 05:44 Carbon Dioxide 23 mmol/L (21-32) 04/23/23 05:44 Anion Gap 12 (3-11) H 04/23/23 05:44 BUN 40 mg/dl (6-23) H 04/23/23 05:44 Creatinine 1.64 mg/dl (0.6-1.4) H 04/23/23 05:44 Est Cr Clr Drug Dosing 36.3 ml/min 04/23/23 05:44 Est GFR ( Amer) 42.3 ml/min 04/23/23 05:44 Est GFR (Non-Af Amer) 36.5 ml/min 04/23/23 05:44 BUN/Creatinine Ratio 24.4 (10-20) H 04/23/23 05:44 Glucose 127 mg/dl (70-99(Fasting)) H 04/23/23 05:44 POC Glucose 212 mg/dl (70-99) H 04/23/23 11:26 Estimat Average Glucose 128 mg/dl 04/21/23 05:29 Hemoglobin A1c 6.1 % (4.5-5.6) H 04/21/23 05:29 Calcium 8.6 mg/dl (8.6-10.3) 04/23/23 05:44 Magnesium 1.9 mg/dl (1.7-2.4) 04/21/23 05:29 Total Bilirubin 0.4 mg/dl (0.2-1.0) 04/20/23 16:58 AST 14 U/L (13-39) 04/20/23 16:58 ALT 6 U/L (7-52) L 04/20/23 16:58 Alkaline Phosphatase 31 U/L (34-104) L 04/20/23 16:58 Troponin I High Sens 20.7 pg/ml (0-20) H 04/20/23 16:58 Total Protein 7.7 gm/dl (6.0-8.3) 04/20/23 16:58 Albumin 3.1 gm/dl (3.4-5.0) L 04/20/23 16:58 Globulin 4.6 gm/dl (2.5-4.0) H 04/20/23 16:58 Albumin/Globulin Ratio 0.7 (0.9-2) L 04/20/23 16:58 Urine Color Yellow 04/20/23 18:18 Urine Appearance Clear (Clear) 04/20/23 18:18 Urine pH 5.0 (4.5-7.5) 04/20/23 18:18 Ur Specific [place] 1.012 (1.000-1.030) 04/20/23 18:18 Urine Protein Negative (Negative) 04/20/23 18:18 Urine Glucose (UA) Negative (Negative) 04/20/23 18:18 Urine Ketones Negative (Negative) 04/20/23 18:18 Urine Blood Negative (Negative) 04/20/23 18:18 Urine Nitrite Negative (Negative) 04/20/23 18:18 Urine Bilirubin Negative (Negative) 04/20/23 18:18 Urine Urobilinogen Negative (Negative) 04/20/23 18:18 Ur Leukocyte Esterase Negative (Negative) 04/20/23 18:18 Stool Occult Bld Scrn Positive (Negative) A 04/21/23 Unknown Digoxin 0.5 ng/ml (0.8-2.0) L 04/20/23 16:53 SARS-CoV-2, RNA, NAAT NEGATIVE (NEGATIVE) 04/20/23 17:20 Blood Type A Positive 04/20/23 16:58 Antibody Screen NEGATIVE 04/20/23 16:58 Crossmatch See Detail 04/20/23 16:58 Impressions Chest X-Ray 04/20/23 16:47 XR chest 1V portable CLINICAL HISTORY: Weakness. COMPARISON STUDY: Chest radiograph August 28, 2022. FINDINGS: Left subclavian biventricular pacer/AICD is in place. There is moderate cardiomegaly. There is pulmonary vascular congestion. No consolidation is identified. There is no pneumothorax or pleural effusion. IMPRESSION: Cardiomegaly with pulmonary vascular congestion. ACT 112: Negative or not required by law. Electronically signed by: Keith Hopper M.D. 04/20/2023 5:[address] 04/20/23 17:12 CT OF THE CERVICAL SPINE WITHOUT CONTRAST CLINICAL HISTORY: fall COMPARISON STUDY: No previous studies for comparison. TECHNIQUE: Helical axial images of the cervical spine were obtained without IV contrast. Sagittal and coronal reconstructions were viewed. Automated exposure control was utilized for the study. A dose lowering technique was utilized adhering to the principles of ALARA. FINDINGS: Alignment of the cervical spine is anatomic. Vertebral body heights are maintained. No acute cervical spine fracture or subluxation is present. There is no prevertebral edema. Facet joints are intact. Note is made of moderate multilevel disc space narrowing, osteophytosis and facet arthrosis within the cervical spine. IMPRESSION: No acute cervical spine fracture or subluxation. ACT 112: Negative or not required by law. Electronically signed by: Keith Hopper M.D. 04/20/2023 6:[address] 04/20/23 17:[address] WITHOUT CONTRAST CLINICAL HISTORY: fall COMPARISON STUDY: Head CT August 28, 2022. TECHNIQUE: A maxillofacial CT was performed without IV contrast. Coronal and sagittal reformats were viewed. Automated exposure control was utilized for the study. A dose lowering technique was utilized adhering to the principles of ALARA. FINDINGS: Globes are intact. There is no retrobulbar hematoma. There is mild polypoid sinus mucosal thickening. There is no acute facial bone fracture. Alignment of the temporomandibular joints is anatomic. The orbital floors are intact. IMPRESSION: No acute facial fracture. ACT 112: Negative or not required by law. Electronically signed by: Keith Hopper M.D. 04/20/2023 6:[address] 04/20/23 17:12 CT OF THE HEAD WITHOUT CONTRAST CLINICAL HISTORY: fall COMPARISON STUDY: Head CT August 28, 2022. TECHNIQUE: Helical axial images of the head were obtained without IV contrast. Automated exposure control was utilized for the study. A dose lowering technique was utilized adhering to the principles of ALARA. FINDINGS: No acute intracranial hemorrhage, midline shift or mass effect is present. The ventricular system is unremarkable. The basal cisterns are patent. No extra-axial collections are present. There are no findings to suggest acute dural sinus thrombosis or acute territorial infarct. No significant calvarial abnormalities are present. Visualized portions of the sinuses and mastoid air cells are clear. IMPRESSION: 1. No acute intracranial findings. No change in appearance of the brain. 2. No acute calvarial fracture. ACT 112: Negative or not required by law. Electronically signed by: Keith Hopper M.D. 04/20/2023 6:07 PM Pelvis X-Ray 04/20/23 17:13 XR pelvis 1-2V routine CLINICAL HISTORY: fall COMPARISON: Pelvis and left hip radiograph August 28, 2022. CT of the abdomen and pelvis September 06, 2018. FINDINGS: Sacroiliac joints and symphysis pubis are intact. No acute fracture is identified within the pelvis or hips. A proximal left femoral internal fixation is noted. A lytic lesion within the proximal diaphysis of the left femur is partially imaged. This was shown on radiographs of August 28, 2022. IMPRESSION: 1. No acute fracture within the pelvis or hips. 2. Status post proximal left femoral internal fixation. Redemonstration of an indeterminate lytic lesion within the proximal diaphysis of the left femur, partially imaged on this study. ACT 112: Negative or not required by law. Electronically signed by: Keith Hopper M.D. 04/20/2023 5:46 PM
[2023-04-23] MEDS: MAGNESIUM OXIDE 400 MG TAB PO SCH (20:25)
[2023-04-24 05:10] LABS: Basophils # (auto) 0.01 K/uL (0-0.2); Basophils % (auto) 0.2 %; Eosinophils # (auto) 0.36 K/uL (0-0.50); Eosinophils % (auto) 7.2 %; Hematocrit (blood only) 23.4 % (42.0-52.0); Hemoglobin 7.3 g/dl (14.0-18.0); Immature Granulocytes # (auto) 0.02 K/uL (0.01-0.20); Immature Granulocytes % (auto) 0.4 %; Lymphocytes # (auto) 1.19 K/uL (1.2-3.4); Lymphocytes % (auto) 23.9 %; Mean Corpuscular Hgb Conc 31.2 g/dL (32.0-36.0); Mean Corpuscular Volume 102.6 fL (80.0-100.0); Mean Platelet Volume 9.5 fL (9.4-12.4); Monocytes # (auto) 0.65 K/uL (0.11-0.59); Monocytes % (auto) 13.1 %; Neutrophils # (auto) 2.74 K/uL (1.40-6.50); Neutrophils % (auto) 55.2 %; Platelet Count 220 K/uL (130-400); RDW Coefficient of Variation 17.8 % (11.5-14.5); RDW Standard Deviation 64.4 fL (36.4-46.3); Red Blood Count 2.28 M/uL (4.70-6.10); White Blood Count 4.97 K/ul (4.8-10.8)
[2023-04-24 05:41] LABS: BUN Creatinine Ratio 20.3 (10-20); Calcium 8.5 mg/dl (8.6-10.3); Creatinine Clr Calc Pharmacy 32.7 ml/min; Est GFR (African American) 37.3 ml/min; Est GFR (Non-African American) 32.2 ml/min; Potassium 3.8 mmol/L (3.5-5.1)
[2023-04-24 05:48] LABS: Polychromasia 1+; Tear Drop Cells 1+
--- NOTE | 2023-04-24 08:12 | Anesthesiology Consultation ---
Date of Service April 24, 2023 History Surgery Operation Date: 04/24/23 16:45 Proposed Procedures p Esophagogastroduodenoscopy Dr Kike Stokes, Height/Weight Height: 6 ft Weight: 93.4 kg Allergies Allergy/AdvReac Type Severity Reaction Status Date / Time Sulfa (Sulfonamide Allergy Severe Unresponsiv Verified 04/24/23 08:44 Antibiotics) e FELECIA Inhibitors Allergy Unknown Unknown Verified 04/24/23 08:44 prednisone AdvReac Intermediate BLISTERS Verified 04/24/23 08:44 IN THROAT pseudoephedrine AdvReac Intermediate TEMP ELEV Verified 04/24/23 08:44 Medications Home Medications Medication Instructions Recorded Confirmed Last Taken albuterol sulfate 90 mcg/actuation 2 puff inhalation QID PRN 06/07/18 08/28/22 03/26/20 08:00 aerosol inhaler (Proventil HFA) Shortness Of Breath digoxin 125 mcg (0.125 mg) tablet 125 mcg PO 3XWK 06/07/18 08/28/22 04/20/22 fluticasone 250 mcg-salmeterol 50 1 inh inhalation AMHS 06/07/18 08/28/22 04/20/22 mcg/dose blistr powdr for am inhalation (Advair Diskus) magnesium oxide 400 mg (241.3 mg 400 mg PO PM 06/07/18 08/28/22 04/19/22 magnesium) tablet potassium chloride 20 mEq 20 meq PO QAM 06/07/18 08/28/22 04/20/22 tablet,extended release(part/cryst) (Klor-Con M) furosemide 40 mg tablet (Lasix) 40 mg PO DAILY 04/25/19 08/28/22 04/20/22 80 mg latanoprost 0.005 % eye drops 1 drp OPB QAM 03/24/20 08/28/22 04/19/22 albuterol sulfate 1.25 mg/3 mL 1.25 mg inhalation Q4H PRN Wheezing 04/21/21 08/28/22 10/22/21 solution for nebulization pantoprazole 40 mg tablet,delayed 40 mg PO QAM 10/22/21 08/28/22 04/20/22 release dutasteride 0.5 mg capsule 0.5 mg PO DAILY #90 caps 01/03/22 08/28/22 04/20/22 clopidogrel 75 mg tablet 75 mg PO QAM 04/20/22 08/28/22 04/20/22 triamcinolone acetonide 0.1 % 1 applic topical BID PRN rash or 04/20/22 08/28/22 Unknown topical ointment more instead of scratching diclofenac sodium 1 % topical gel 2 g EXT QID PRN pain #100 grams 04/29/22 08/28/22 Unknown (Voltaren Arthritis Pain) acetaminophen 325 mg tablet 325 mg PO Q4 PRN Fever Or Pain 08/28/22 08/28/22 Un known ferrous sulfate 325 mg (65 mg 325 mg PO Q OTHER DAY 08/28/22 08/28/22 Unknown iron) tablet (FeroSul) losartan 50 mg tablet 50 mg PO QAM 08/28/22 08/28/22 Unknown metoprolol succinate 50 mg 50 mg PO DAILY 08/28/22 08/28/22 Unknown tablet,extended release 24 hr multivitamin 1 tab PO DAILY 08/28/22 08/28/22 Unknown methenamine hippurate 1 gram tablet 1 g PO BID 30 days #60 tabs 11/25/22 Unknown glipizide 5 mg tablet, extended 5 mg PO DAILY 04/20/23 04/20/23 Unknown release 24 hr Active Medications Generic Name Dose Route Start Last Admin Trade Name Kevinq PRN Reason Stop Dose Admin Clopidogrel Bisulfate 75 mg 04/21/23 09:00 04/23/23 08:21 Clopidogrel Bisulfate 75 Mg Tab PO 05/21/23 08:59 75 mg QAM ALIN Administration Digoxin 0.125 mg 04/21/23 16:00 04/21/23 16:19 Digoxin 0.125 Mg Tab PO 05/21/23 15:59 0.125 mg [id number] ALIN Administration Ferrous Sulfate 325 mg 04/22/23 09:00 04/22/23 08:40 Ferrous Sulfate 325 Mg Tab PO 05/22/23 08:59 325 mg Q2D@0900 ALIN Administration Finasteride 5 mg 04/21/23 09:00 04/23/23 08:21 Finasteride 5 Mg Tab PO 05/21/23 08:59 5 mg DAILY ALIN Administration Fluticasone/Vilanterol 1 puffs 04/21/23 09:00 04/23/23 08:21 Fluticasone/Vilanterol 200/25mcg 14 Puffs/Inhaler INH 05/21/23 08:59 1 puffs DAILY ALIN Administration Furosemide 40 mg 04/21/23 09:00 04/23/23 08:21 Furosemide 40 Mg Tab PO 05/21/23 08:59 40 mg QAM ALIN Administration Pantoprazole Sodium 40 mg/ 10 mls @ 5 mls/min 04/21/23 21:00 04/23/23 20:25 Syringe IV 05/21/23 20:59 5 mls/min BID ALIN Administration Insulin Aspart 0 units 04/20/23 23:44 04/24/23 08:41 Insulin Aspart Per Unit Charge SC 05/20/23 23:43 Not Given ACHS ALIN Latanoprost 1 drops 04/21/23 09:00 04/23/23 08:21 Latanoprost 0.005% Op Soln 2.5 Ml Btl OPB 05/21/23 08:59 1 drops QAM ALIN Administration Losartan Potassium 50 mg 04/21/23 09:00 04/23/23 08:21 Losartan Potassium 50 Mg Tab PO 05/21/23 08:59 50 mg QAM ALIN Administration Magnesium Oxide 400 mg 04/20/23 23:44 04/23/23 20:25 Magnesium Oxide 400 Mg Tab PO 05/20/23 23:43 400 mg PM ALIN Administration Methenamine Hippurate 1 gm 04/20/23 23:44 04/23/23 20:25 Methenamine Hippurate 1 Gm Tab PO 05/20/23 23:43 1 gm BID ALIN Administration Metoprolol Succinate 50 mg 04/21/23 09:00 04/23/23 08:21 Metoprolol Succ 50mg Ext Rel Tab PO 05/21/23 08:59 50 mg DAILY ALIN Administration Multivitamins 1 tab 04/21/23 09:00 04/23/23 08:21 Multivitamin Tab PO 05/21/23 08:59 1 tab DAILY ALIN Administration Potassium Chloride 20 meq 04/21/23 09:00 04/23/23 08:21 Potassium Chloride Crtab 20 Meq Tabcr PO 05/21/23 08:59 20 meq QAM ALIN Administration NPO Date Last Intake of Fluids: 04/23/23 Time Last Intake of Fluids: 23:30 Date Last Intake of Solids: 04/23/23 Time Last Intake of Solids: 22:00 Past Medical History Medical History (Updated 04/24/23 @ 08:26 by Paul Rae MD) Anemia Aortic aneurysm unsure of last ultrasound/scan -- no surgical intervention. Moderate aortic root dilatation noted on 2018 echo. No AAA noted on [address] Aortic valve insufficiency Moderate-severe per 11/2018 echo BPH (benign prostatic hyperplasia) CAD (coronary artery disease) (08/21/14) S/p CABG July 2000 receiving KAUR graft to LAD, saphenous vein graft sequentially from the obtuse marginal to diagonal. S/p stenting of prox Cx 2013 Chronic back pain CKD stage 3 due to type 2 diabetes mellitus no specialist COPD (chronic obstructive pulmonary disease) well controlled rare res inh use Dementia mild at present Dementia Dyslipidemia Encounter for pre-operative examination GERD (gastroesophageal reflux disease) GI bleed per pt's > had 3 units PRBC's [facility] during admission in Jul 2021 Glaucoma Hearing deficit [place] History of colon polyps HTN (hypertension) Ischemic cardiomyopathy EF normalized, most recently 55-60% on 11/2018 echo On home oxygen therapy 2 LPM QHS Osteoarthritis Persistent atrial fibrillation Anticoagulation contraindicated per cardiology > ICD Presence of combination internal cardiac defibrillator (ICD) and pacemaker follows w/ Dr. Sanford > Medtronic > gets checked electronically > PMH provided by , eduardo when last checked in office. Severe sepsis Tachy-lorna syndrome S/p dual chamber pacer with upgrade to pacer/ICD 2014 Type II diabetes mellitus NIDDM Past Family History Family History Grandmother Diabetes Mother Colon cancer Other Melanoma No family history of adverse response to anesthesia Past Surgical History Surgical History History of cardiac cath 1999 --> CABG 2013 - stent - [facility] History of cataract surgery bilat History of colonoscopy History of esophagogastroduodenoscopy (EGD) History of prostate surgery non cancerous History of tonsillectomy History of tooth extraction S/P CABG x 3 1999 S/P coronary artery stent placement July 2014 with stenting of the proximal circumflex Social History Smoking Status: Former smoker tobacco type: cigarettes Do You Dip or Chew Tobacco: No Hx Alcohol Use: No Alcohol type: beer alcohol intake frequency: holidays/special occasions only Hx Substance Use: No substance use type: does not use Physical Exam Vital Signs Last Vital Signs Temp 36.4 C L 04/24/23 08:47 Pulse 76 04/24/23 08:47 Resp 16 04/24/23 08:47 BP 145/71 H 04/24/23 08:47 Pulse Ox 96 04/24/23 08:47 O2 Del Method Room Air 04/24/23 08:47 Testing Laboratory Results 04/24/23 04:43 04/24/23 04:43 PT 11.4 Seconds (9.0-12.0) 04/20/23 16:53 INR 1.0 (0.9-1.1) 04/20/23 16:53 APTT 21.9 Seconds (21.0-31.0) 04/20/23 16:53 Hemoglobin A1c 6.1 % (4.5-5.6) H 04/21/23 05:29 Urine Color Yellow 04/20/23 18:18 Urine Appearance Clear (Clear) 04/20/23 18:18 Urine pH 5.0 (4.5-7.5) 04/20/23 18:18 Ur Specific [place] 1.012 (1.000-1.030) 04/20/23 18:18 Urine Protein Negative (Negative) 04/20/23 18:18 Urine Glucose (UA) Negative (Negative) 04/20/23 18:18 Urine Ketones Negative (Negative) 04/20/23 18:18 Urine Nitrite Negative (Negative) 04/20/23 18:18 Ur Leukocyte Esterase Negative (Negative) 04/20/23 18:18 Blood Type A Positive 04/20/23 16:58 Antibody Screen NEGATIVE 04/20/23 16:58 04/24/23 07:54 POC Glucose 167 H Electrocardiogram Date: 04/20/23
--- NOTE | 2023-04-24 08:23 | Anesthesiology Consultation ---
Date of Service April 24, 2023 Assessment & Plan (1) Encounter for pre-operative examination: Chart Review Chart Review: Acceptable Risk for Surgery, Patient NOT seen in Pre Admission Testing and glass maker initiated Consults Requested none History Surgery Operation Date: 04/24/23 16:45 Proposed Procedures p Esophagogastroduodenoscopy Dr Kike Stokes, Height/Weight Height: 6 ft Weight: 93.4 kg Allergies Allergy/AdvReac Type Severity Reaction Status Date / Time Sulfa (Sulfonamide Allergy Severe Unresponsiv Verified 08/28/22 17:56 Antibiotics) e FELECIA Inhibitors Allergy Unknown Unknown Verified 08/28/22 17:56 prednisone AdvReac Intermediate BLISTERS Verified 08/28/22 17:56 IN THROAT pseudoephedrine AdvReac Intermediate TEMP ELEV Verified 05/26/22 13:51 Medications Home Medications Medication Instructions Recorded Confirmed Last Taken albuterol sulfate 90 mcg/actuation 2 puff inhalation QID PRN 06/07/18 08/28/22 03/26/20 08:00 aerosol inhaler (Proventil HFA) Shortness Of Breath digoxin 125 mcg (0.125 mg) tablet 125 mcg PO 3XWK 06/07/18 08/28/22 04/20/22 fluticasone 250 mcg-salmeterol 50 1 inh inhalation AMHS 06/07/18 08/28/22 04/20/22 mcg/dose blistr powdr for am inhalation (Advair Diskus) magnesium oxide 400 mg (241.3 mg 400 mg PO PM 06/07/18 08/28/22 04/19/22 magnesium) tablet potassium chloride 20 mEq 20 meq PO QAM 06/07/18 08/28/22 04/20/22 tablet,extended release(part/cryst) (Klor-Con M) furosemide 40 mg tablet (Lasix) 40 mg PO DAILY 04/25/19 08/28/22 04/20/22 80 mg latanoprost 0.005 % eye drops 1 drp OPB QAM 03/24/20 08/28/22 04/19/22 albuterol sulfate 1.25 mg/3 mL 1.25 mg inhalation Q4H PRN Wheezing 04/21/21 08/28/22 10/22/21 solution for nebulization pantoprazole 40 mg tablet,delayed 40 mg PO QAM 10/22/21 08/28/22 04/20/22 release dutasteride 0.5 mg capsule 0.5 mg PO DAILY #90 caps 01/03/22 08/28/22 04/20/22 clopidogrel 75 mg tablet 75 mg PO QAM 04/20/22 08/28/22 04/20/22 triamcinolone acetonide 0.1 % 1 applic topical BID PRN rash or 04/20/22 08/28/22 Unknown topical ointment more instead of scratching diclofenac sodium 1 % topical gel 2 g EXT QID PRN pain #100 grams 04/29/22 08/28/22 Unknown (Voltaren Arthritis Pain) acetaminophen 325 mg tablet 325 mg PO Q4 PRN Fever Or Pain 08/28/22 08/28/22 Unknown ferrous sulfate 325 mg (65 mg 325 mg PO Q OTHER DAY 08/28/22 08/28/22 Unknown iron) tablet (FeroSul) losartan 50 mg tablet 50 mg PO QAM 08/28/22 08/28/22 Unknown metoprolol succinate 50 mg 50 mg PO DAILY 08/28/22 08/28/22 Unknown tablet,extended release 24 hr multivitamin 1 tab PO DAILY 08/28/22 08/28/22 Unknown methenamine hippurate 1 gram tablet 1 g PO BID 30 days #60 tabs 11/25/22 Unknown glipizide 5 mg tablet, extended 5 mg PO DAILY 04/20/23 04/20/23 Unknown release 24 hr Active Medications Generic Name Dose Route Start Last Admin Trade Name Kevinq PRN Reason Stop Dose Admin Clopidogrel Bisulfate 75 mg 04/21/23 09:00 04/23/23 08:21 Clopidogrel Bisulfate 75 Mg Tab PO 05/21/23 08:59 75 mg QAM [facility] Administration Digoxin 0.125 mg 04/21/23 16:00 04/21/23 16:19 Digoxin 0.125 Mg Tab PO 05/21/23 15:59 0.125 mg [id number] [facility] Administration Ferrous Sulfate 325 mg 04/22/23 09:00 04/22/23 08:40 Ferrous Sulfate 325 Mg Tab PO 05/22/23 08:59 325 mg Q2D@0900 ALIN Administration Finasteride 5 mg 04/21/23 09:00 04/23/23 08:21 Finasteride 5 Mg Tab PO 05/21/23 08:59 5 mg DAILY ALIN Administration Fluticasone/Vilanterol 1 puffs 04/21/23 09:00 04/23/23 08:21 Fluticasone/Vilanterol 200/25mcg 14 Puffs/Inhaler INH 05/21/23 08:59 1 puffs DAILY ALIN Administration Furosemide 40 mg 04/21/23 09:00 04/23/23 08:21 Furosemide 40 Mg Tab PO 05/21/23 08:59 40 mg QAM ALIN Administration Pantoprazole Sodium 40 mg/ 10 mls @ 5 mls/min 04/21/23 21:00 04/23/23 20:25 Syringe IV 05/21/23 20:59 5 mls/min BID ALIN Administration Insulin Aspart 0 units 04/20/23 23:44 04/23/23 20:24 Insulin Aspart Per Unit Charge SC 05/20/23 23:43 Not Given ACHS ALIN Latanoprost 1 drops 04/21/23 09:00 04/23/23 08:21 Latanoprost 0.005% Op Soln 2.5 Ml Btl OPB 05/21/23 08:59 1 drops QAM ALIN Administration Losartan Potassium 50 mg 04/21/23 09:00 04/23/23 08:21 Losartan Potassium 50 Mg Tab PO 05/21/23 08:59 50 mg QAM ALIN Administration Magnesium Oxide 400 mg 04/20/23 23:44 04/23/23 20:25 Magnesium Oxide 400 Mg Tab PO 05/20/23 23:43 400 mg PM ALIN Administration Methenamine Hippurate 1 gm 04/20/23 23:44 04/23/23 20:25 Methenamine Hippurate 1 Gm Tab PO 05/20/23 23:43 1 gm BID ALIN Administration Metoprolol Succinate 50 mg 04/21/23 09:00 04/23/23 08:21 Metoprolol Succ 50mg Ext Rel Tab PO 05/21/23 08:59 50 mg DAILY ALIN Administration Multivitamins 1 tab 04/21/23 09:00 04/23/23 08:21 Multivitamin Tab PO 05/21/23 08:59 1 tab DAILY ALIN Administration Potassium Chloride 20 meq 04/21/23 09:00 04/23/23 08:21 Potassium Chloride Crtab 20 Meq Tabcr PO 05/21/23 08:59 20 meq QAM ALIN Administration NPO Date Last Intake of Fluids: 04/23/23 Time Last Intake of Fluids: 23:30 Date Last Intake of Solids: 04/23/23 Time Last Intake of Solids: 22:00 Past Medical History Medical History (Updated 04/24/23 @ 08:26 by Paul Rae MD) Anemia Aortic aneurysm unsure of last ultrasound/scan -- no surgical intervention. Moderate aortic root dilatation noted on 2018 echo. No AAA noted on [address] Aortic valve insufficiency Moderate-severe per 11/2018 echo BPH (benign prostatic hyperplasia) CAD (coronary artery disease) (08/21/14) S/p CABG July 2000 receiving KAUR graft to LAD, saphenous vein graft sequentially from the obtuse marginal to diagonal. S/p stenting of prox Cx 2013 Chronic back pain CKD stage 3 due to type 2 diabetes mellitus no specialist COPD (chronic obstructive pulmonary disease) well controlled rare res inh use Dementia mild at present Dementia Dyslipidemia Encounter for pre-operative examination GERD (gastroesophageal reflux disease) GI bleed per pt's > had [address] [facility] during admission in Jul 2021 Glaucoma Hearing deficit [place] History of colon polyps HTN (hypertension) Ischemic cardiomyopathy EF normalized, most recently 55-60% on 11/2018 echo On home oxygen therapy 2 LPM QHS Osteoarthritis Persistent atrial fibrillation Anticoagulation contraindicated per cardiology > ICD Presence of combination internal cardiac defibrillator (ICD) and pacemaker follows w/ Dr. Sanford > Medtronic > gets checked electronically > PMH provided by , eduardo when last checked in office. Severe sepsis Tachy-lorna syndrome S/p dual chamber pacer with upgrade to pacer/ICD 2014 Type II diabetes mellitus NIDDM Past Family History Family History Grandmother Diabetes Mother Colon cancer Other Melanoma No family history of adverse response to anesthesia Past Surgical History Surgical History History of cardiac cath 1999 --> CABG 2013 - stent - [facility] History of cataract surgery bilat History of colonoscopy History of esophagogastroduodenoscopy (EGD) History of prostate surgery non cancerous History of tonsillectomy History of tooth extraction S/P CABG x 3 1999 S/P coronary artery stent placement July 2014 with stenting of the proximal circumflex Social History Smoking Status: Former smoker tobacco type: cigarettes Do You Dip or Chew Tobacco: No Hx Alcohol Use: No Alcohol type: beer alcohol intake frequency: holidays/special occasions only Hx Substance Use: No substance use type: does not use Physical Exam Vital Signs Last Vital Signs Temp 36.6 C 04/24/23 07:44 Pulse 69 04/24/23 07:44 Resp 18 04/24/23 07:44 BP 128/56 L 04/24/23 07:44 Pulse Ox 96 04/24/23 07:44 O2 Del Method Room Air 04/24/23 07:44 Testing Laboratory Results 04/24/23 04:43 04/24/23 04:43 PT 11.4 Seconds (9.0-12.0) 04/20/23 16:53 INR 1.0 (0.9-1.1) 04/20/23 16:53 APTT 21.9 Seconds (21.0-31.0) 04/20/23 16:53 Hemoglobin A1c 6.1 % (4.5-5.6) H 04/21/23 05:29 Urine Color Yellow 04/20/23 18:18 Urine Appearance Clear (Clear) 04/20/23 18:18 Urine pH 5.0 (4.5-7.5) 04/20/23 18:18 Ur Specific [place] 1.012 (1.000-1.030) 04/20/23 18:18 Urine Protein Negative (Negative) 04/20/23 18:18 Urine Glucose (UA) Negative (Negative) 04/20/23 18:18 Urine Ketones Negative (Negative) 04/20/23 18:18 Urine Nitrite Negative (Negative) 04/20/23 18:18 Ur Leukocyte Esterase Negative (Negative) 04/20/23 18:18 Blood Type A Positive 04/20/23 16:58 Antibody Screen NEGATIVE 04/20/23 16:58 04/24/23 07:54 POC Glucose 167 H Electrocardiogram Date: 04/20/23 Test Reason : Blood Pressure : / mmHG Vent. Rate : 070 BPM Atrial Rate : 067 BPM P-R Int : 000 ms QRS Dur : 158 ms QT Int : 426 ms P-R-T Axes : 000 240 062 degrees QTc Int : 460 ms Ventricular-paced rhythm Abnormal ECG When compared with ECG of 28-AUG-2022 14:48, Vent. rate has decreased BY 3 BPM Confirmed by Joe Menard ([id number]) on 04/21/2023 12:25:54 PM Chest X-Ray Date: 04/20/23 XR chest 1V portable CLINICAL HISTORY: Weakness. COMPARISON STUDY: Chest radiograph August 28, 2022. FINDINGS: Left subclavian biventricular pacer/AICD is in place. There is moderate cardiomegaly. There is pulmonary vascular congestion. No consolidation is identified. There is no pneumothorax or pleural effusion. IMPRESSION: Cardiomegaly with pulmonary vascular congestion. Echocardiogram Date: 04/21/22 EF: 55-60% LV Function: normal RWMA: + none Other Findings: + LVH (mild) Valvular Disease: + AI (mod), + MR (mod) and + pertinent finding (mod TR)
[2023-04-24] MEDS: INSULIN ASPART PER UNIT CHARGE SC SCH ×4 (08:41→20:45)
--- NOTE | 2023-04-24 09:03 | History & Physical Bridge Note ---
Date of Service April 24, 2023 History & Physical Bridge Note I have examined the patient, reviewed the History & Physical and in the interval since the performance of the History & Physical I have noted the following changes of clinical significance: no changes noted. Patient was seen and evaluated last week for heme positive stools and dark stool. He does have a history of dementia and is very hard of hearing thus consent for upper endoscopy was obtained from his today. We discussed the risks which include bleeding infection perforation pain and need for follow-up studies.
--- NOTE | 2023-04-24 09:20 | Communication Note ---
Date of Service: April 24, 2023 The patient underwent upper endoscopy today for his history of anemia and a question. The upper endoscopy was normal. Recommendations Patient may have a clear liquid diet today Colyte bowel preparation for colonoscopy tomorrow please call with any questions or concerns
[2023-04-24] MEDS ORDERED: PROPOFOL IV EMULSION 10 MG/ML 20 ML VIAL IV ONE (09:23)
[2023-04-24] MEDS ORDERED: LIDOCAINE 2% 2 ML VIAL/AMP(20MG/ML) INFIL ONE (09:23)
--- NOTE | 2023-04-24 09:25 | GI REPORT ---
Patient Name: Marshall Booth Procedure Date: 04/24/2023 9:07 AM Date of : 1935 Admit Type: Inpatient Age: 88 Gender: Male Attending MD: Griffin Stokes DO, Procedure: Upper GI endoscopy Providers: Griffin Stokes DO Referring MD: Ling Sykes Indications: Melena Medicines: Monitored Anesthesia Care Complications: No immediate complications. Estimated blood loss: Minimal. Estimated Blood Loss: Estimated blood loss was minimal. Procedure: Pre-Anesthesia Assessment: - Prior to the procedure, a History and Physical was performed, and patient medications, allergies and sensitivities were reviewed. The patient's tolerance of previous anesthesia was reviewed. - The risks and benefits of the procedure and the sedation options and risks were discussed with the patient. All questions were answered and informed consent was obtained. - Patient identification and proposed procedure were verified prior to the procedure by the physician, the nurse and the workers' compensation claims supervisor. The procedure was verified in the procedure room. - Pre-procedure physical examination revealed no contraindications to sedation. - ASA Grade Assessment: IV - A patient with severe systemic disease that is a constant threat to life. - After reviewing the risks and benefits, the patient was deemed in satisfactory condition to undergo the procedure. - The anesthesia plan was to use monitored anesthesia care (MAC). - Immediately prior to administration of medications, the patient was re-assessed for adequacy to receive sedatives. - The heart rate, respiratory rate, oxygen saturations, blood pressure, adequacy of pulmonary ventilation, and response to care were monitored throughout the procedure. - The physical status of the patient was re-assessed after the procedure. After obtaining informed consent, the endoscope was passed under direct vision. Throughout the procedure, the patient's blood pressure, pulse, and oxygen saturations were monitored continuously. The Endoscope was introduced through the mouth, and advanced to the third part of duodenum. The upper GI endoscopy was accomplished without difficulty. The patient tolerated the procedure well. Findings: The examined esophagus was normal. The Z-line was regular and was found 39 cm from the incisors. The entire examined stomach was normal. The examined duodenum was normal. Impression: - Normal esophagus. - Z-line regular, 39 cm from the incisors. - Normal stomach. - Normal examined duodenum. - No specimens collected. Recommendation: - Perform a colonoscopy at appointment to be scheduled. Griffin Stoeks D.O. Griffin Stokes, 04/24/2023 9:25:14 AM This report has been signed electronically. Note Initiated On: 04/24/2023 9:07 AM Number of Addenda: 0 I attest to the content of the Intraoperative Record and orders documented therein, exceptions below {[id number]}
[2023-04-24] MEDS: PANTOprazole 40 MG in SYRINGE 0 ML IV SCH ×2 (10:11→22:05)
--- NOTE | 2023-04-24 10:11 | Anesthesiology Progress Note ---
Date of Service April 24, 2023 Anesthesia Post Procedure Vital Signs Vital Signs: Temp Pulse Pulse Resp BP Pulse Ox O2 Del Method 04/24/23 09:55 70 16 148/59 H 95 Room Air 04/24/23 09:40 70 16 142/60 H 95 Room Air 04/24/23 09:25 69 16 111/82 97 Room Air 04/24/23 08:47 36.4 C L 76 16 145/71 H 96 Room Air 04/24/23 07:44 36.6 C 69 18 128/56 L 96 Room Air 04/24/23 07:17 Room Air 04/24/23 07:09 70 04/24/23 06:00 71 04/24/23 04:27 36.8 C 76 20 151/68 H 97 Room Air 04/24/23 00:11 70 04/23/23 23:37 36.9 C 70 20 146/68 H 98 Room Air 04/23/23 22:18 Room Air 04/23/23 19:58 36.8 C 67 20 143/61 H 93 Room Air 04/23/23 15:36 70 04/23/23 14:50 36.5 C 69 18 134/66 93 Room Air 04/23/23 11:25 36.9 C 70 16 127/62 97 Room Air Transfer of Care Handoff Completed per policy Notes Mental Status: alert / awake / arousable and participated in evaluation Patient Amnestic to Procedure: Yes Nausea / Vomiting: adequately controlled Pain: adequately controlled Airway Patency, RR, SpO2: stable & adequate BP & HR: stable & adequate Hydration State: stable & adequate Anesthetic Complications: no major complications apparent
[2023-04-24] MEDS: METOPROLOL SUCC 50MG EXT REL TAB PO SCH (10:12)
[2023-04-24] MEDS: METHENAMINE HIPPURATE 1 GM TAB PO SCH ×2 (10:12→22:05)
[2023-04-24] MEDS: FLUTICASONE/VILANTEROL 200/25MCG 14 PUFFS/INHALER INH SCH (10:12)
[2023-04-24] MEDS: FUROSEMIDE 40 MG TAB PO SCH (10:12)
[2023-04-24] MEDS: CLOPIDOGREL BISULFATE 75 MG TAB PO SCH (10:12)
[2023-04-24] MEDS: FERROUS SULFATE 325 MG TAB PO SCH (10:12)
[2023-04-24] MEDS: POTASSIUM CHLORIDE CRTAB 20 MEQ TABCR PO SCH (10:14)
[2023-04-24] MEDS: MULTIVITAMIN TAB PO SCH (10:14)
[2023-04-24] MEDS: FINASTERIDE 5 MG TAB PO SCH (10:14)
[2023-04-24] MEDS: LOSARTAN POTASSIUM 50 MG TAB PO SCH (10:14)
[2023-04-24] MEDS: LATANOPROST 0.005% OP SOLN 2.5 ML BTL OPB SCH (10:14)
[2023-04-24] MEDS ORDERED: SODIUM CHLORIDE 0.9% 250 ML IV PRN (13:11)
--- NOTE | 2023-04-24 13:14 | Hospitalist Progress Note ---
Date of Service April 24, 2023 Assessment & Plan (1) Anemia: Plan: 88-year-old male with history of CAD s/p CABG s/p stent, diabetes, history of multiple myeloma not on chemo, conservative management gets biweekly labs was called in by oncology for hemoglobin of 5.1 and also patient lately feeling weak and falling down and low appetite. Symptomatic anemia status post 3 unit of packed RBC Possible GI bleed Hemoglobin downtrending over several weeks; was found to have outpatient hemoglobin of 5.1. Repeat hemoglobin here on admission was 5.3 No obvious signs of bleedings Received 3 units of packed RBC so far. Hemoccult positive Last endoscopy in October 2022no significant signs or symptoms of bleeding. Underwent endoscopy today. No obvious signs of bleeding. Colonoscopy to be done tomorrow. 1 more unit of packed RBC today. History of multiple myeloma Not getting any chemo Follow-up heme-onc His oncologist Dr. Sykes updated. chronic kidney stage III Presented with creatinine 1.7 Similar to his baseline. Type II diabetes We will hold glipizide Sliding scale A1c of 6.1 Possible aspiration Speech evaluation CAD s/p CABG s/p stent On Plavix metoprolol succinate Tachybradycardia syndrome s/p pacemaker Chronic A-fib On digoxin and metoprolol succinate Not on anticoagulation Chronic diastolic CHF On Lasix We will monitor for volume overload History of asthma Continue home inhalers History of hypertension On losartan and metoprolol succinate and Lasix We will monitor the blood pressure History of duodenal ulcer Protonix DVT prophylaxis SCDs Disposition close monitoring med/tele. CODE STATUS DNR/DNI Time spent evaluating patient, direct bedside care, chart review, placing orders, interpretation of diagnostic studies, discussion with consultants, patient, and family members, as well as other required patient management activities is 60 minutes. Please note the above document was generated using voice recognition software. It may contain grammatical, syntax or spelling errors. Any formal questions or concerns about the content, text or information contained within the body of this dictation should be directly addressed to the provider for clarification (2) Multiple myeloma: (3) DAPHNE (acute kidney injury): Admission and Anticipated Discharge Date Admission Date: April 20, 2023 Subjective Patient seen and examined at bedside. Is comfortable; not in distress. Review of Systems Review of Systems: All systems reviewed & are unremarkable except as noted in Subjective Physical Exam Physical Exam: General- alert and awake. Not in distress. Hard of hearing. Head- atraumatic Eyes- PERRL, pallor present, anicteric ENT- oropharynx clear Neck- supple, no JVD, no adenopathy, carotids +2/2, no bruits appreciated Lungs- clear to auscultation and percussion Heart- regular rhythm; no murmur, no gallop, no rub appreciated Abdomen- normal bowel sounds, soft, nontender, no masses or hepatosplenomegaly Extremities- no pretibial edema, no erythema seen Neuro- alert, awake, nio facial droop obeys simple commands Skin- warm & dry Results & Data Results & Data Vital Signs (Past 12 Hours) Vital Signs Temp Pulse Pulse Resp BP Pulse Ox O2 Del Method 04/24/23 11:11 36.4 C L 72 20 153/57 H 98 Room Air 04/24/23 10:10 72 20 157/72 H 04/24/23 09:55 70 16 148/59 H 95 Room Air 04/24/23 09:40 70 16 142/60 H 95 Room Air 04/24/23 09:25 69 16 111/82 97 Room Air 04/24/23 08:47 36.4 C L 76 16 145/71 H 96 Room Air 04/24/23 07:44 36.6 C 69 18 128/56 L 96 Room Air 04/24/23 07:17 Room Air 04/24/23 07:09 70 04/24/23 06:00 71 04/24/23 04:27 36.8 C 76 20 151/68 H 97 Room Air Laboratory Results Laboratory Results WBC 4.97 K/ul (4.8-10.8) 04/24/23 04:43 RBC 2.28 M/uL (4.70-6.10) L 04/24/23 04:43 Hgb 7.3 g/dl (14.0-18.0) L 04/24/23 04:43 Hct 23.4 % (42.0-52.0) L 04/24/23 04:43 MCV 102.6 fL (80.0-100.0) H 04/24/23 04:43 MCH 32.0 pg (25.0-34.0) 04/24/23 04:43 MCHC 31.2 g/dL (32.0-36.0) L 04/24/23 04:43 RDW Std Deviation 64.4 fL (36.4-46.3) H 04/24/23 04:43 RDW Coeff of Maricarmen 17.8 % (11.5-14.5) H 04/24/23 04:43 Plt Count 220 K/uL (130-400) 04/24/23 04:43 MPV 9.5 fL (9.4-12.4) 04/24/23 04:43 Immature Gran % (Auto) 0.4 % 04/24/23 04:43 Neut % (Auto) 55.2 % 04/24/23 04:43 Lymph % (Auto) 23.9 % 04/24/23 04:43 [place] % (Auto) 13.1 % 04/24/23 04:43 Eos % (Auto) 7.2 % 04/24/23 04:43 Baso % (Auto) 0.2 % 04/24/23 04:43 Neut # (Auto) 2.74 K/uL (1.40-6.50) 04/24/23 04:43 Lymph # (Auto) 1.19 K/uL (1.2-3.4) L 04/24/23 04:43 [place] # (Auto) 0.65 K/uL (0.11-0.59) H 04/24/23 04:43 Eos # (Auto) 0.36 K/uL (0-0.50) 04/24/23 04:43 Baso # (Auto) 0.01 K/uL (0-0.2) 04/24/23 04:43 Immature Gran # (Auto) 0.02 K/uL (0.01-0.20) 04/24/23 04:43 Absolute Nucleated RBC 0.02 K/uL (0-0.12) 04/23/23 05:44 Nucleated RBC % (auto) 0.4 % 04/23/23 05:44 Polychromasia 1+ 04/24/23 04:43 Anisocytosis Present 04/23/23 05:44 Macrocytosis Present 04/20/23 16:58 Tear Drop Cells 1+ 04/24/23 04:43 Rouleaux 1+ 04/20/23 16:58 PT 11.4 Seconds (9.0-12.0) 04/20/23 16:53 INR 1.0 (0.9-1.1) 04/20/23 16:53 APTT 21.9 Seconds (21.0-31.0) 04/20/23 16:53 PTT Ratio 0.8 04/20/23 16:53 Sodium 140 mmol/L (136-145) 04/24/23 04:43 Potassium 3.8 mmol/L (3.5-5.1) 04/24/23 04:43 Chloride 106 mmol/L (98-107) 04/24/23 04:43 Carbon Dioxide 22 mmol/L (21-32) 04/24/23 04:43 Anion Gap 12 (3-11) H 04/24/23 04:43 BUN 37 mg/dl (6-23) H 04/24/23 04:43 Creatinine 1.82 mg/dl (0.6-1.4) H 04/24/23 04:43 Est Cr Clr Drug Dosing 32.7 ml/min 04/24/23 04:43 Est GFR ( Amer) 37.3 ml/min 04/24/23 04:43 Est GFR (Non-Af Amer) 32.2 ml/min 04/24/23 04:43 BUN/Creatinine Ratio 20.3 (10-20) H 04/24/23 04:43 Glucose 135 mg/dl (70-99(Fasting)) H 04/24/23 04:43 POC Glucose 212 mg/dl (70-99) H 04/24/23 11:27 Estimat Average Glucose 128 mg/dl 04/21/23 05:29 Hemoglobin A1c 6.1 % (4.5-5.6) H 04/21/23 05:29 Calcium 8.5 mg/dl (8.6-10.3) L 04/24/23 04:43 Magnesium 1.9 mg/dl (1.7-2.4) 04/21/23 05:29 Total Bilirubin 0.4 mg/dl (0.2-1.0) 04/20/23 16:58 AST 14 U/L (13-39) 04/20/23 16:58 ALT 6 U/L (7-52) L 04/20/23 16:58 Alkaline Phosphatase 31 U/L (34-104) L 04/20/23 16:58 Troponin I High Sens 20.7 pg/ml (0-20) H 04/20/23 16:58 Total Protein 7.7 gm/dl (6.0-8.3) 04/20/23 16:58 Albumin 3.1 gm/dl (3.4-5.0) L 04/20/23 16:58 Globulin 4.6 gm/dl (2.5-4.0) H 04/20/23 16:58 Albumin/Globulin Ratio 0.7 (0.9-2) L 04/20/23 16:58 Urine Color Yellow 04/20/23 18:18 Urine Appearance Clear (Clear) 04/20/23 18:18 Urine pH 5.0 (4.5-7.5) 04/20/23 18:18 Ur Specific [place] 1.012 (1.000-1.030) 04/20/23 18:18 Urine Protein Negative (Negative) 04/20/23 18:18 Urine Glucose (UA) Negative (Negative) 04/20/23 18:18 Urine Ketones Negative (Negative) 04/20/23 18:18 Urine Blood Negative (Negative) 04/20/23 18:18 Urine Nitrite Negative (Negative) 04/20/23 18:18 Urine Bilirubin Negative (Negative) 04/20/23 18:18 Urine Urobilinogen Negative (Negative) 04/20/23 18:18 Ur Leukocyte Esterase Negative (Negative) 04/20/23 18:18 Stool Occult Bld Scrn Positive (Negative) A 04/21/23 Unknown Digoxin 0.5 ng/ml (0.8-2.0) L 04/20/23 16:53 SARS-CoV-2, RNA, NAAT NEGATIVE (NEGATIVE) 04/20/23 17:20 Blood Type A Positive 04/20/23 16:58 Antibody Screen NEGATIVE 04/20/23 16:58 Crossmatch See Detail 04/20/23 16:58 Impressions Chest X-Ray 04/20/23 16:47 XR chest 1V portable CLINICAL HISTORY: Weakness. COMPARISON STUDY: Chest radiograph August 28, 2022. FINDINGS: Left subclavian biventricular pacer/AICD is in place. There is moderate cardiomegaly. There is pulmonary vascular congestion. No consolidation is identified. There is no pneumothorax or pleural effusion. IMPRESSION: Cardiomegaly with pulmonary vascular congestion. ACT 112: Negative or not required by law. Electronically signed by: Keith Hopper M.D. 04/20/2023 5:[address] 04/20/23 17:12 CT OF THE CERVICAL SPINE WITHOUT CONTRAST CLINICAL HISTORY: fall COMPARISON STUDY: No previous studies for comparison. TECHNIQUE: Helical axial images of the cervical spine were obtained without IV contrast. Sagittal and coronal reconstructions were viewed. Automated exposure control was utilized for the study. A dose lowering technique was utilized adhering to the principles of ALARA. FINDINGS: Alignment of the cervical spine is anatomic. Vertebral body heights are maintained. No acute cervical spine fracture or subluxation is present. There is no prevertebral edema. Facet joints are intact. Note is made of moderate multilevel disc space narrowing, osteophytosis and facet arthrosis within the cervical spine. IMPRESSION: No acute cervical spine fracture or subluxation. ACT 112: Negative or not required by law. Electronically signed by: Keith Hopper M.D. 04/20/2023 6:[address] 04/20/23 17:[address] WITHOUT CONTRAST CLINICAL HISTORY: fall COMPARISON STUDY: Head CT August 28, 2022. TECHNIQUE: A maxillofacial CT was performed without IV contrast. Coronal and sagittal reformats were viewed. Automated exposure control was utilized for the study. A dose lowering technique was utilized adhering to the principles of ALARA. FINDINGS: Globes are intact. There is no retrobulbar hematoma. There is mild polypoid sinus mucosal thickening. There is no acute facial bone fracture. Alignment of the temporomandibular joints is anatomic. The orbital floors are intact. IMPRESSION: No acute facial fracture. ACT 112: Negative or not required by law. Electronically signed by: Keith Hopper M.D. 04/20/2023 6:[address] 04/20/23 17:12 CT OF THE HEAD WITHOUT CONTRAST CLINICAL HISTORY: fall COMPARISON STUDY: Head CT August 28, 2022. TECHNIQUE: Helical axial images of the head were obtained without IV contrast. Automated exposure control was utilized for the study. A dose lowering technique was utilized adhering to the principles of ALARA. FINDINGS: No acute intracranial hemorrhage, midline shift or mass effect is present. The ventricular system is unremarkable. The basal cisterns are patent. No extra-axial collections are present. There are no findings to suggest acute dural sinus thrombosis or acute territorial infarct. No significant calvarial abnormalities are present. Visualized portions of the sinuses and mastoid air cells are clear. IMPRESSION: 1. No acute intracranial findings. No change in appearance of the brain. 2. No acute calvarial fracture. ACT 112: Negative or not required by law. Electronically signed by: Keith Hopper M.D. 04/20/2023 6:07 PM Pelvis X-Ray 04/20/23 17:13 XR pelvis 1-2V routine CLINICAL HISTORY: fall COMPARISON: Pelvis and left hip radiograph August 28, 2022. CT of the abdomen and pelvis September 06, 2018. FINDINGS: Sacroiliac joints and symphysis pubis are intact. No acute fracture is identified within the pelvis or hips. A proximal left femoral internal fixation is noted. A lytic lesion within the proximal diaphysis of the left femur is partially imaged. This was shown on radiographs of August 28, 2022. IMPRESSION: 1. No acute fracture within the pelvis or hips. 2. Status post proximal left femoral internal fixation. Redemonstration of an indeterminate lytic lesion within the proximal diaphysis of the left femur, partially imaged on this study. ACT 112: Negative or not required by law. Electronically signed by: Keith Hopper M.D. 04/20/2023 5:46 PM
[2023-04-24] MEDS ORDERED: LAVAGE SOLUTION 4000ML PO SCH (16:00)
[2023-04-24] MEDS: DIGOXIN 0.125 MG TAB PO SCH (16:17)
[2023-04-24] MEDS: MAGNESIUM OXIDE 400 MG TAB PO SCH (22:06)
[2023-04-25 07:51] LABS: Basophils # (auto) 0.03 K/uL (0-0.2); Basophils % (auto) 0.7 %; Eosinophils % (auto) 9.2 %; Hematocrit (blood only) 26.1 % (42.0-52.0); Hemoglobin 8.3 g/dl (14.0-18.0); Immature Granulocytes # (auto) 0.02 K/uL (0.01-0.20); Immature Granulocytes % (auto) 0.5 %; Lymphocytes # (auto) 0.97 K/uL (1.2-3.4); Lymphocytes % (auto) 22.2 %; Mean Corpuscular Hemoglobin 31.9 pg (25.0-34.0); Mean Corpuscular Hgb Conc 31.8 g/dL (32.0-36.0); Mean Corpuscular Volume 100.4 fL (80.0-100.0); Mean Platelet Volume 9.3 fL (9.4-12.4); Monocytes # (auto) 0.52 K/uL (0.11-0.59); Monocytes % (auto) 11.9 %; Neutrophils # (auto) 2.43 K/uL (1.40-6.50); Neutrophils % (auto) 55.5 %; Platelet Count 224 K/uL (130-400); RDW Coefficient of Variation 18.3 % (11.5-14.5); RDW Standard Deviation 65.6 fL (36.4-46.3); White Blood Count 4.37 K/ul (4.8-10.8)
[2023-04-25 08:25] LABS: BUN Creatinine Ratio 19.6 (10-20); Calcium 8.6 mg/dl (8.6-10.3); Creatinine Clr Calc Pharmacy 38.4 ml/min; Est GFR (Non-African American) 43.1 ml/min; Potassium 3.4 mmol/L (3.5-5.1)
[2023-04-25] MEDS: FUROSEMIDE 40 MG TAB PO SCH (08:43)
[2023-04-25] MEDS: METHENAMINE HIPPURATE 1 GM TAB PO SCH (08:43)
[2023-04-25] MEDS: FINASTERIDE 5 MG TAB PO SCH (08:43)
[2023-04-25] MEDS: METOPROLOL SUCC 50MG EXT REL TAB PO SCH (08:43)
[2023-04-25] MEDS: PANTOprazole 40 MG in SYRINGE 0 ML IV SCH (08:43)
[2023-04-25] MEDS: LOSARTAN POTASSIUM 50 MG TAB PO SCH (08:44)
[2023-04-25] MEDS: POTASSIUM CHLORIDE CRTAB 20 MEQ TABCR PO SCH (08:44)
[2023-04-25] MEDS: LATANOPROST 0.005% OP SOLN 2.5 ML BTL OPB SCH (08:44)
[2023-04-25] MEDS: CLOPIDOGREL BISULFATE 75 MG TAB PO SCH (08:44)
[2023-04-25] MEDS: FLUTICASONE/VILANTEROL 200/25MCG 14 PUFFS/INHALER INH SCH (08:44)
[2023-04-25] MEDS: MULTIVITAMIN TAB PO SCH (08:44)
[2023-04-25] MEDS: INSULIN ASPART PER UNIT CHARGE SC SCH ×2 (08:47→12:28)
--- NOTE | 2023-04-25 12:00 | Communication Note ---
Date of Service: April 25, 2023 We were planning to do a colonoscopy today to evaluate patient's history of anemia. Unfortunately the patient's significant other and other family members were not available the consent process. Numerous calls were made by our nursing staff without success. Options include having the patient have a patient's afternoon and evening time with plan for colonoscopy tomorrow. This would be an option if they call back, otherwise we would suggest an outpatient colonoscopy
--- NOTE | 2023-04-25 13:33 | History & Physical Bridge Note ---
Date of Service April 25, 2023 History & Physical Bridge Note I have examined the patient, reviewed the History & Physical and in the interval since the performance of the History & Physical I have noted the following changes of clinical significance: no changes noted. Given the patient's history of anemia and underlying history of dementia we thought it would be prudent to proceed with colonoscopy as an inpatient for the purposes of this bowel preparation we were able to get consent for the procedure from the patient's this afternoon. We discussed the risks and benefits to include bleeding infection perforation pain and need for follow-up studies.
[2023-04-25] MEDS ORDERED: LIDOCAINE 2% 2 ML VIAL/AMP(20MG/ML) INFIL ONE (13:41)
[2023-04-25] MEDS ORDERED: PROPOFOL IV EMULSION 10 MG/ML 20 ML VIAL IV ONE ×2 (13:41→14:02)
--- NOTE | 2023-04-25 14:15 | GI REPORT ---
Patient Name: Marshall Booth Procedure Date: 04/25/2023 1:39 PM Date of : 1935 Admit Type: Inpatient Age: 88 Gender: Male Attending MD: Griffin Stokes DO, Procedure: Colonoscopy Providers: Griffin Stokes DO Referring MD: Rafael Willis Md Indications: High risk colon cancer surveillance: Personal history of colonic polyps, Anemia Medicines: General Anesthesia Complications: No immediate complications. Estimated blood loss: Minimal. Estimated Blood Loss: Estimated blood loss was minimal. Procedure: Pre-Anesthesia Assessment: - Prior to the procedure, a History and Physical was performed, and patient medications, allergies and sensitivities were reviewed. The patient's tolerance of previous anesthesia was reviewed. - Patient identification and proposed procedure were verified prior to the procedure by the physician, the nurse and the hat block maker. The procedure was verified in the procedure room. - The patient is unable to give consent secondary to the patient's altered mental status. The alternatives, risks and benefits of the procedure were discussed at length with the patient's spouse. The patient's proxy verbalized understanding of the risks as well as the alternatives and wished to proceed with the procedure. - Pre-procedure physical examination revealed no contraindications to sedation. - ASA Grade Assessment: IV - A patient with severe systemic disease that is a constant threat to life. - After reviewing the risks and benefits, the patient was deemed in satisfactory condition to undergo the procedure. - The anesthesia plan was to use monitored anesthesia care (MAC). - Immediately prior to administration of medications, the patient was re-assessed for adequacy to receive sedatives. - The heart rate, respiratory rate, oxygen saturations, blood pressure, adequacy of pulmonary ventilation, and response to care were monitored throughout the procedure. - The physical status of the patient was re-assessed after the procedure. After I obtained informed consent, the scope was passed under direct vision. Throughout the procedure, the patient's blood pressure, pulse, and oxygen saturations were monitored continuously. The Colonoscope was introduced through the anus and advanced to the terminal ileum. The patient tolerated the procedure well. The quality of the bowel preparation was adequate to identify polyps greater than 5 mm in size. The colonoscopy was somewhat difficult due to multiple diverticula in the colon and significant looping. Successful completion of the procedure was aided by applying abdominal pressure and lavage. Findings: The perianal and digital rectal examinations were normal. Pertinent negatives include normal sphincter tone. The terminal ileum appeared normal. A 5 mm polyp was found in the cecum. The polyp was sessile. The polyp was removed with a cold snare. Resection and retrieval were complete. The pathology specimen was placed into Bottle A. Estimated blood loss was minimal. Two sessile polyps were found in the ascending colon. The polyps were 5 to 6 mm in size. These polyps were removed with a cold snare. Resection and retrieval were complete. The pathology specimen was placed into Bottle B. Estimated blood loss was minimal. A 5 mm polyp was found in the hepatic flexure. The polyp was sessile. The polyp was removed with a cold snare. Resection and retrieval were complete. The pathology specimen was placed into Bottle C. Estimated blood loss was minimal. Multiple small and large-mouthed diverticula were found in the sigmoid colon and descending colon. Non-bleeding internal hemorrhoids were found during retroflexion. The hemorrhoids were moderate. The exam was otherwise without abnormality. Impression: - The examined portion of the ileum was normal. - One 5 mm polyp in the cecum, removed with a cold snare. Resected and retrieved. - Two 5 to 6 mm polyps in the ascending colon, removed with a cold snare. Resected and retrieved. - One 5 mm polyp at the hepatic flexure, removed with a cold snare. Resected and retrieved. - Moderate diverticulosis in the sigmoid colon and in the descending colon. - Non-bleeding internal hemorrhoids. - The examination was otherwise normal. Recommendation: - [facility]. - Advance diet as tolerated today. - Await pathology results. - Repeat colonoscopy is not recommended for surveillance. Griffin Stokes D.O. Griffin Stokes, 04/25/2023 2:14:45 PM This report has been signed electronically. Note Initiated On: 04/25/2023 1:39 PM Number of Addenda: 0 I attest to the content of the Intraoperative Record and orders documented therein, exceptions below {[id number]}
--- NOTE | 2023-04-25 14:16 | Communication Note ---
Date of Service: April 25, 2023 The patient underwent colonoscopy this afternoon. He was found to have several colonic polyps, diverticulosis of the colon in addition to internal hemorrhoids. Given the patient's age and comorbidities I would not recommend a surveillance colonoscopy. There is no problems. Consider further evaluation with a wireless capsule endoscopy as an outpatient. For the present time would recommend to have an iron supplement and outpatient follow-up with gastroenterology as needed. Recommendations Consider use of an iron supplement Follow-up CBCs with primary care Await Pathology results Call with any questions or concerns GI to sign off
--- NOTE | 2023-04-25 14:35 | Anesthesiology Progress Note ---
Date of Service April 25, 2023 Anesthesia Post Procedure Vital Signs Vital Signs: Temp Pulse Pulse Resp BP BP BP 04/25/23 14:28 70 16 148/76 H 04/25/23 14:14 79 16 131/57 L 04/25/23 13:21 36.6 C 77 16 155/64 H 04/25/23 11:16 36.6 C 60 16 149/85 H 04/25/23 09:57 04/25/23 08:10 36.8 C 78 18 135/69 04/25/23 07:33 75 04/25/23 04:19 36.8 C 73 18 158/74 H 04/25/23 00:00 74 04/24/23 22:53 36.6 C 73 18 134/66 04/24/23 20:03 37.0 C 70 18 131/58 L 04/24/23 19:30 36.3 C L 84 22 156/68 H 04/24/23 18:45 36.5 C 78 20 152/71 H 04/24/23 17:45 36.8 C 79 20 179/70 H 04/24/23 16:45 36.9 C 70 18 149/67 H 04/24/23 16:17 70 04/24/23 16:15 37 C 70 16 130/69 04/24/23 16:02 36.7 C 69 18 146/64 H 04/24/23 15:58 36.9 C 69 18 147/66 H Pulse Ox O2 Del Method O2 Flow Rate 04/25/23 14:28 96 Room Air 04/25/23 14:14 97 Room Air 04/25/23 13:21 96 Room Air 04/25/23 11:16 95 Room Air 04/25/23 09:57 Room Air 04/25/23 08:10 92 Room Air 04/25/23 07:33 04/25/23 04:19 98 Room Air 04/25/23 00:00 04/24/23 22:53 96 Room Air 04/24/23 20:03 93 Room Air 04/24/23 19:30 94 04/24/23 18:45 97 0 04/24/23 17:45 97 0 04/24/23 16:45 96 0 04/24/23 16:17 04/24/23 16:15 96 0 07/24/23 16:02 96 Room Air 04/24/23 15:58 96 Transfer of Care Handoff Completed per policy Notes Mental Status: alert / awake / arousable and participated in evaluation Patient Amnestic to Procedure: Yes Nausea / Vomiting: adequately controlled Pain: adequately controlled Airway Patency, RR, SpO2: stable & adequate BP & HR: stable & adequate Hydration State: stable & adequate Anesthetic Complications: no major complications apparent
--- NOTE | 2023-04-25 15:25 | Discharge Summary ---
Date of Service April 25, 2023 Admission HPI Per Admitting Provider 88-year-old male with past medical significant for CAD s/p CABG, s/p stent, BPH, tachybradycardia syndrome s/p biventricular pacemaker, moderate asthmatic lung disease, nocturnal hypoxemia, history of diffuse cardiomyopathy mixed etiology with improvement, chronic atrial fibrillation with anticoagulation contraindications, moderate aortic and tricuspid insufficiency, diabetes, chronic kidney disease stage III, GERD, history of prostatitis with hematuria, sensorineural hearing loss of both ears very hard of hearing, late onset Alzheimer's dementia mild as per his , history of gastric ulcers, diagnosis of multiple myeloma in September 2022 with a lytic lesion in the subtrochanteric left femur s/p internal fixation and completed radiation treatment to the area and improvement of the local pain and family decide not to proceed with any kind of systemic chemotherapy for multiple myeloma. Currently gets. Blood transfusion support for symptomatic anemia. #2020 he received blood transfusion for duodenal ulceration on EGD. Currently is getting biweekly labs. Was called by oncology to go to ER for blood transfusion as hemoglobin dropped down to 5.1. Patient lives with his . Son lives close by. Patient ambulates with a cane. He can shower, dress and eat by himself. But very hard of hearing. Few days ago he fell and has a black eye on the left side. Appetite is down. No hematuria. Stools are black as he is on iron pills. did not check his stools for any blood in the stools. Seems weak. thinks he chokes on food because he coughs. Currently on regular diet. No recent fevers. No runny nose. Patient is alert and awake. Says he is doing fine. Denies any complaints of pain. Seems comfortable. and son in the room and helped with H&P Admission Exam Per Admitting Provider General- alert and awake. Not in distress Head- atraumatic Eyes- PERRL, pallor present, anicteric ENT- oropharynx clear Neck- supple, no JVD, no adenopathy, carotids +2/2, no bruits appreciated Lungs- clear to auscultation and percussion Heart- regular rhythm; no murmur, no gallop, no rub appreciated Abdomen- normal bowel sounds, soft, nontender, no masses or hepatosplenomegaly Extremities- no pretibial edema, no erythema seen Neuro- alert, awake, nio facial droop obeys simple commands Skin- warm & dry Principal Diagnosis Symptomatic anemia status post 3 unit of packed RBC Possible GI bleed Discharge Exam General- alert and awake. Not in distress. Hard of hearing. Head- atraumatic Eyes- PERRL, pallor present, anicteric ENT- oropharynx clear Neck- supple, no JVD, no adenopathy, carotids +2/2, no bruits appreciated Lungs- clear to auscultation and percussion Heart- regular rhythm; no murmur, no gallop, no rub appreciated Abdomen- normal bowel sounds, soft, nontender, no masses or hepatosplenomegaly Extremities- no pretibial edema, no erythema seen Neuro- alert, awake, nio facial droop obeys simple commands Skin- warm & dry Discharge Data Allergies Allergy/AdvReac Type Severity Reaction Status Date / Time Sulfa (Sulfonamide Allergy Severe Unresponsiv Verified 04/24/23 08:44 Antibiotics) e FELECIA Inhibitors Allergy Unknown Unknown Verified 04/24/23 08:44 prednisone AdvReac Intermediate BLISTERS Verified 04/24/23 08:44 IN THROAT pseudoephedrine AdvReac Intermediate TEMP ELEV Verified 04/24/23 08:44 Consultations 04/20/23 18:36 ED Decision to Admit Stat 04/21/23 14:28 Consult Gastroenterology Routine Procedures Performed Operation Date: 04/25/23 16:30 Actual Procedures p Colonoscopy Polypectomy - Griffin Stokes, Ordered Studies 04/20/23 17:12 CT cervical spine wo con Stat CT facial bones wo con Stat CT head/brain wo con Stat Hospital Course (1) Anemia: (2) Multiple myeloma: (3) DAPHNE (acute kidney injury): Plan 88-year-old male with history of CAD s/p CABG s/p stent, diabetes, history of multiple myeloma not on chemo, conservative management gets biweekly labs was called in by oncology for hemoglobin of 5.1 and also patient lately feeling weak and falling down and low appetite. Symptomatic anemia status post 3 unit of packed RBC Possible GI bleed Hemoglobin downtrending over several weeks; was found to have outpatient hemoglobin of 5.1. Repeat hemoglobin here on admission was 5.3 No obvious signs of bleedings Received 3 units of packed RBC during the hospitalization Hemoccult positive GI was consulted during the hospitalization. Endoscopy done on April 24no evidence of bleeding. colonoscopy done on April 25multiple polyps seen which were resected and retrieved. Patient hemoglobin at the time of discharge was around 8. He was comfortable. Vital stable. Patient was discharged home with instruction to follow-up with his PCP and oncologist. Please note the above document was generated using voice recognition software. It may contain grammatical, syntax or spelling errors. Any formal questions or concerns about the content, text or information contained within the body of this dictation should be directly addressed to the provider for clarification Total Time Total Time Spent Total Time Spent (In Minutes): 45 Total Time Includes: Examination of the Patient, Discharge Planning, Medication Reconciliation, Communication With Other Providers and Other Discharge Plan Discharge Items Patient Disposition: Home - Self-Care Reason For Visit: ANEMIA Discharge Diagnosis: Symptomatic anemia status post 3 unit of packed RBC Possible GI bleed Activity: Resume your previous activity Non-emergency contact: Primary Care Provider Call non-emergency contact if: you have any medication questions Follow-up/Referrals: Muriel Chowdary MD [Primary Care Provider] - (Date & Time 04/28/2023 1:00 PM Provider Sherron Lyles MD Department Family Medicine [facility] ) Diet: Regular Addtl Attending Provider Instructions: You were admitted to the hospital due to anemia. You received 3 units of packed RBC. You underwent endoscopy on April abnormality was seen. You underwent colonoscopy on April 25-multiple polyps were seen which were removed. Please follow-up with your primary care doctor and oncologist. Pending Studies at Discharge: No Stand-Alone Forms: My [facility] [employer], Smoking Cessation Medications and DC Order Prescriptions: Continued dutasteride 0.5 mg capsule 0.5 mg PO DAILY Qty: 90 3RF methenamine hippurate 1 gram tablet 1 g PO BID 30 Days Qty: 60 5RF furosemide [Lasix] 40 mg Tablet 40 mg PO DAILY fluticasone propion-salmeterol [Advair Diskus] 250-50 mcg/dose Blister With Device 1 inh INHALATION [facility] potassium chloride [Klor-Con M20] 20 mEq Tablet,Er Particles/Crystals 20 meq PO QAM magnesium oxide 400 mg (241.3 mg magnesium) Tablet 400 mg PO PM digoxin 125 mcg Tablet 125 mcg PO 3XWK Rx Instructions: take 1 tablet mon,wed,fri albuterol sulfate [Proventil HFA] 90 mcg/actuation Hfa Aerosol Inhaler 2 puff INHALATION QID PRN (Reason: Shortness Of Breath) latanoprost 0.005 % Drops 1 drp OPB QAM albuterol sulfate 1.25 mg/3 mL Solution For Nebulization 1.25 mg INHALATION Q4H PRN (Reason: Wheezing) pantoprazole 40 mg tablet,delayed release (DR/EC) 40 mg PO QAM clopidogrel 75 mg tablet 75 mg PO QAM triamcinolone acetonide 0.1 % Ointment 1 applic TOPICAL BID PRN (Reason: rash or more instead of scratching) diclofenac sodium [Voltaren Arthritis Pain] 1 % Gel 2 g EXT QID PRN (Reason: pain) Qty: 100 0RF metoprolol succinate 50 mg tablet extended release 24 hr 50 mg PO DAILY losartan 50 mg tablet 50 mg PO QAM ferrous sulfate [FeroSul] 325 mg (65 mg iron) tablet 325 mg PO Q OTHER DAY Rx Instructions: ordered bid but pt takes every other day acetaminophen 325 mg Tablet 325 mg PO Q4 PRN (Reason: Fever Or Pain) Rx Instructions: use for temp>38C multivitamin Tablet 1 tab PO DAILY glipizide 5 mg Tablet Extended Release 24hr 5 mg PO DAILY Discharge Orders: Discharge Order (Routine); Ordered 04/25/23 Ordered By: Rafael Davis Admission Data Admit Date/Time: 04/20/23 20:31 Attending Provider: Rafael Davis Admit Provider: Chandrakant Abebe Primary Care Provider: Muriel Chowdary Other Providers: Sharri Rodgers ; Elise Estrada ; Terry Vuong ; Ann Sanon ; Ynes Weaver ; Tiny Rocha ; Soledad Jarquin ; Lowell Pritchard ; Pola Stanley ; Griffin Stokes ; Jose G Katz ; Angel Mac ; Umm Belle ; Emi Kennedy ; Paulette Stewart ; Desiree Siegel ; Fredo Encinas ; Speedy Alves ; Rahul Brody ; Patria Brewer ; Tyron De Guzman Jr Other Interventions: Discharge Summary Assessment (RN) Last Done: 04/24/23 09:55
== END 2023-04-25 17:30 | disposition home or self-care (01) | DRG 812 ==
LOC: ED 16:41 → 2N 20:31

== ENCOUNTER 2023-07-20 09:42 | Inpatient (IN) ==
[2023-07-20] MEDS ORDERED: PANTOprazole 80 MG in DEXTROSE 5% 100 ML IV STA (09:57)
[2023-07-20] MEDS ORDERED: ALBUT/IPRATROP 3MG/0.5MG NEB 3 ML VIAL NEB STA (09:58)
--- NOTE | 2023-07-20 10:00 | Emergency Department Note ---
Impression & Plan Anemia, Multiple myeloma, Congestive heart failure ED Provider Note Provider: Tim Ochoa MD DATE OF SERVICE: 07/20/2023 CHIEF COMPLAINT: Shortness of breath, low hemoglobin HISTORY OF PRESENT ILLNESS: Patient is a 88-year-old gentleman history of CAD status post stent and CABG, BPH, pacemaker placement for tachybradycardia syndrome, asthmatic lung disease, cardiomyopathy, chronic A-fib however not on anticoagulation but digoxin, diabetes, CKD, GERD, gastric ulcers, dementia, multiple myeloma presenting here today via ambulance from his home. EMS states they were called initially for shortness of breath by the patient. Patient was somewhat hesitant to come but family were encouraging him to. During this time patient had blood work yesterday in the office called and informed him that his hemoglobin was below 7 in the sixes. Patient upon arrival denies significant complaint to me at this time. Denies any swelling or chest pain. Denies abdominal pain or nausea or vomiting. States maybe he got little short of breath moving around but denies any currently. No trauma or syncope reported. Denies lightheaded symptoms. Denies black or bloody stools by his report. PAST MEDICAL HISTORY: As noted above MEDICATIONS: Reviewed medication list SOCIAL HISTORY: Lives at home with PHYSICAL EXAM: GENERAL: alert and oriented in no acute distress on stretcher Head: normocephalic and atraumatic EYES: No injection, discharge or icterus. NECK: Trachea midline. Supple. ENT: Mucous membranes pink and moist. LUNGS: Airway patent. No retractions. Breath sounds with some slight expiratory wheeze HEART: Regular rate and rhythm. No chest wall tenderness ABDOMEN: Soft and non-tender, without guarding or rebound. SKIN: Acyanotic, warm, dry, without rashes EXTREMITIES: Without swelling, tenderness or deformity NEUROLOGICAL: No focal deficits. No aphasia. No facial droop or slurred speech. Normal strength and tone in the extremities. Sensation to gross touch normal. EK bpm ventricular paced rhythm without PVC noted on the cardiogram. No clear acute ST segment elevation with nonspecific repolarization changes likely related to digoxin nonspecific interventricular conduction delay with a QTc of 486. Compared to previous from April 20 of this year similar. CONTINUOUS CARDIAC MONITORING: was ordered and showed a heart rate of 70s bpm in ventricular paced rhythm rare PVC noted Patient's laboratory studies and imaging reviewed. Differential includes Reactive airway disease, pneumonia, pneumothorax, COPD, CHF, infections, cardiac ischemia, pulmonary embolism, musculoskeletal, gastrointestinal, as well as other pathologies. IMPRESSION/MEDICAL DECISION MAKING: Denies any fever or flu symptoms. Some shortness of breath reported at home but also found to be anemic on outpatient labs. Double checked here. This may be the etiology of his underlying shortness of breath. Denies chest pain or abdominal pain. Does not seem significantly fluid overloaded on clinical exam. Slightly wheezing given a bit of a DuoNeb. Not on anticoagulants but Plavix. To get Protonix in case there is any GI component but reading the prior records indicative of findings of multiple myeloma. EKG and troponin sent as well as basic blood work. Afebrile here and no significant infectious symptoms noted. Lower suspicion for pneumonia but chest x-ray completed. Blood work here confirms anemia hemoglobin coming back at 5.8. In review of records did have scopes in April of this year without finding of bleeding site. We will discussed with patient and family blood transfusion. Type and screen has been ordered. Blood work without significant leukocytosis. Normal platelet count. Digoxin level slightly low at 0.4. Renal function appears stable to slightly better than normal. High-sensitivity troponin within normal limits. BNP very slightly elevated but no priors for comparison. Chest x-ray reviewed as well as report with maybe some slight congestion. As he will need blood transfusion, will diurese lightly with a bit of Lasix. Discussed recommendation for further monitoring and care given his anemia with need for transfusion and multiple comorbidities. Discussed with family they later arrived. He is very short of breath even just walking to the bathroom here. Did have a transfusion last weekend when not long before then. They wish for me to reach out to [facility] hematology oncology Dr. Sykes as the patient follows closely with them and I did. Patient was consented for 2 units of packed red blood cells and this was ordered again we will give slowly and some Lasix order to prevent fluid overload. Patient even standing at bedside now becomes quite tachypneic and again I feel that further observation with the transfusions to monitor his fluid status and respiratory status would be indicated. DIAGNOSIS: Anemia, shortness of breath, multiple myeloma, CHF DISPOSITION: Hospitalist will evaluate Patient was agreeable with this plan. Critical Care I have personally spent 34 minutes of critical care time in the direct management of this patient. This includes bedside care, interpretation of diagnostic studies, and testing, discussion with consultants, patient, and family members, and other required patient management activities. These 34 minutes is in excess of all separately billable procedures. Past Med/Surg History Medical History Anemia Aortic aneurysm unsure of last ultrasound/scan -- no surgical intervention. Moderate aortic root dilatation noted on 2018 echo. No AAA noted on [address] Aortic valve insufficiency Moderate-severe per 11/2018 echo BPH (benign prostatic hyperplasia) CAD (coronary artery disease) (08/21/14) S/p CABG July 2000 receiving KAUR graft to LAD, saphenous vein graft sequentially from the obtuse marginal to diagonal. S/p stenting of prox Cx 2013 Chronic back pain CKD stage 3 due to type 2 diabetes mellitus no specialist COPD (chronic obstructive pulmonary disease) well controlled rare res inh use Dementia mild at present Dementia Dyslipidemia Encounter for pre-operative examination GERD (gastroesophageal reflux disease) GI bleed per pt's > had 3 units PRBC's [facility] during admission in Jul 2021 Glaucoma Hearing deficit [place] History of colon polyps History of pacemaker HTN (hypertension) Ischemic cardiomyopathy EF normalized, most recently 55-60% on 11/2018 echo Multiple myeloma On home oxygen therapy 2 LPM QHS Osteoarthritis Persistent atrial fibrillation Anticoagulation contraindicated per cardiology > ICD Presence of combination internal cardiac defibrillator (ICD) and pacemaker follows w/ Dr. Sanford > Medtr[employer] > gets checked electronically > PMH provided by , eduardo when last checked in office. Severe sepsis Shingles Tachy-lorna syndrome S/p dual chamber pacer with upgrade to pacer/ICD 2014 Type II diabetes mellitus NIDDM Surgical History History of cardiac cath 1999 --> CABG 2014 - 1 stent - [facility] History of cataract surgery bilat History of colonoscopy History of esophagogastroduodenoscopy (EGD) History of implantable cardioverter-defibrillator (ICD) placement History of prostate surgery non cancerous History of tonsillectomy History of tooth extraction S/P CABG x 3 1999 S/P coronary artery stent placement July 2014 with stenting of the proximal circumflex Family History Grandmother Diabetes Mother Colon cancer Other Melanoma No family history of adverse response to anesthesia Social History Smoking Status: Never smoker Tobacco Type: Cigarettes Second Hand Exposure: No; Hx Alcohol Use: No Hx Substance Use: No Preferred Language: Wolof Communication Ability: Impaired Communication Ability Comment: [place] despite b/[place] Server Security Administrator Required: No Beliefs That Will Affect Care: None marital status: Current Living Situation: Spouse How many Children do You have: 2 Feels Safe at Home: Yes Safety Concerns: Feels Safe At This Time Assistive Devices: Cane and Oxygen - at Night Allergies Allergies Allergy/AdvReac Type Severity Reaction Status Date / Time Sulfa (Sulfonamide Allergy Severe Unresponsiv Verified 07/14/23 11:00 Antibiotics) e FELECIA Inhibitors Allergy Unknown Unknown Verified 07/14/23 11:00 prednisone AdvReac Intermediate BLISTERS Verified 07/14/23 11:00 IN THROAT pseudoephedrine AdvReac Intermediate TEMP ELEV Verified 07/14/23 11:00 Home Meds Home Medications Medication Instructions Recorded Confirmed albuterol sulfate 90 mcg/actuation 2 puff inhalation QID PRN 06/07/18 07/20/23 aerosol inhaler (Proventil HFA) Shortness Of Breath digoxin 125 mcg (0.125 mg) tablet 125 mcg PO 3XWK 06/07/18 07/20/23 fluticasone 250 mcg-salmeterol 50 1 inh inhalation AMHS 06/07/18 07/20/23 mcg/dose blistr powdr for inhalation (Advair Diskus) magnesium oxide 400 mg (241.3 mg 400 mg PO PM 06/07/18 07/20/23 magnesium) tablet potassium chloride 20 mEq 20 meq PO QAM 06/07/18 07/20/23 tablet,extended release(part/cryst) (Klor-Con M) furosemide 40 mg tablet (Lasix) 40 mg PO QAM 04/25/19 07/20/23 latanoprost 0.005 % eye drops 1 drp OPB HS 03/24/20 07/20/23 albuterol sulfate 1.25 mg/3 mL 1.25 mg inhalation Q4H PRN Wheezing 04/21/21 solution for nebulization pantoprazole 40 mg tablet,delayed 40 mg PO QAM 10/22/21 07/20/23 release clopidogrel 75 mg tablet 75 mg PO QAM 04/20/22 07/20/23 triamcinolone acetonide 0.1 % 1 applic topical BID PRN rash or 04/20/22 07/20/23 topical ointment more instead of scratching acetaminophen 325 mg tablet 325 mg PO Q4 PRN Fever Or Pain 08/28/22 07/20/23 ferrous sulfate 325 mg (65 mg 325 mg PO Q OTHER DAY 08/28/22 07/20/23 iron) tablet (FeroSul) losartan 50 mg tablet 50 mg PO QAM 08/28/22 07/20/23 metoprolol succinate 50 mg 50 mg PO DAILY 08/28/22 07/20/23 tablet,extended release 24 hr multivitamin 1 tab PO DAILY 08/28/22 07/20/23 glipizide 5 mg tablet, extended 5 mg PO QAM 04/20/23 07/20/23 release 24 hr Previous Rx's Medication Instructions Recorded dutasteride 0.5 mg capsule 0.5 mg PO DAILY #90 caps 01/03/22 diclofenac sodium 1 % topical gel 2 g EXT QID PRN pain #100 grams 04/29/22 (Voltaren Arthritis Pain) methenamine hippurate 1 gram tablet 1 g PO BID 30 days #60 tabs 11/25/22 Results & Data (ED) Vital Signs Vital Signs - 24 hr 07/20/23 09:50 07/20/23 10:10 07/20/23 10:10 Temperature 37.0 C Temperature Source Oral Pulse Rate 80 80 80 Pulse Rate [Apical] Pulse Rate from SpO2 Sensor Respiratory Rate 18 18 Respiratory Effort / Characteristics Spontaneous Blood Pressure 160/78 H Blood Pressure [Right Arm] Blood Pressure Mean 105 Blood Pressure Mean [Right Arm] Blood Pressure Position Sitting Blood Pressure Position [Right Arm] Pulse Oximetry 97 97 Oxygen Delivery Method Room Air Room Air Sepsis Recent Fever Within 48 Hours No Sepsis New/Unexplained Change in Mental Status N/A Sepsis Action Taken by Nursing No Action Required 07/20/23 10:09 07/20/23 10:09 07/20/23 12:15 Temperature 37.0 C 36.6 C Temperature Source Oral Oral Pulse Rate 72 Pulse Rate [Apical] 80 Pulse Rate from SpO2 Sensor Respiratory Rate 18 15 Respiratory Effort / Characteristics Spontaneous Blood Pressure 164/72 H Blood Pressure [Right Arm] 160/78 H Blood Pressure Mean 102 Blood Pressure Mean [Right Arm] 105 Blood Pressure Position Blood Pressure Position [Right Arm] Sitting Pulse Oximetry 97 97 Oxygen Delivery Method Room Air Room Air Sepsis Recent Fever Within 48 Hours Sepsis New/Unexplained Change in Mental Status Sepsis Action Taken by Nursing 07/20/23 09:49 07/20/23 09:53 07/20/23 09:53 Temperature Temperature Source Pulse Rate 83 71 Pulse Rate [Apical] Pulse Rate from SpO2 Sensor 82 71 Respiratory Rate 32 H 31 H Respiratory Effort / Characteristics Blood Pressure 160/78 H Blood Pressure [Right Arm] Blood Pressure Mean 141 Blood Pressure Mean [Right Arm] Blood Pressure Position Blood Pressure Position [Right Arm] Pulse Oximetry 99 98 Oxygen Delivery Method Sepsis Recent Fever Within 48 Hours Sepsis New/Unexplained Change in Mental Status Sepsis Action Taken by Nursing 07/20/23 10:00 07/20/23 10:30 07/20/23 10:30 Temperature Temperature Source Pulse Rate 73 70 Pulse Rate [Apical] Pulse Rate from SpO2 Sensor 70 Respiratory Rate 25 H 19 Respiratory Effort / Characteristics Blood Pressure 177/75 H Blood Pressure [Right Arm] Blood Pressure Mean 129 Blood Pressure Mean [Right Arm] Blood Pressure Position Blood Pressure Position [Right Arm] Pulse Oximetry 87 L 95 Oxygen Delivery Method Sepsis Recent Fever Within 48 Hours Sepsis New/Unexplained Change in Mental Status Sepsis Action Taken by Nursing 07/20/23 11:00 07/20/23 11:01 07/20/23 11:01 Temperature Temperature Source Pulse Rate 70 70 Pulse Rate [Apical] Pulse Rate from SpO2 Sensor 69 70 Respiratory Rate 18 22 Respiratory Effort / Characteristics Blood Pressure 167/82 H Blood Pressure [Right Arm] Blood Pressure Mean 105 Blood Pressure Mean [Right Arm] Blood Pressure Position Blood Pressure Position [Right Arm] Pulse Oximetry 98 96 Oxygen Delivery Method Sepsis Recent Fever Within 48 Hours Sepsis New/Unexplained Change in Mental Status Sepsis Action Taken by Nursing 07/20/23 11:52 07/20/23 12:00 07/20/23 12:00 Temperature Temperature Source Pulse Rate 71 Pulse Rate [Apical] Pulse Rate from SpO2 Sensor 71 71 Respiratory Rate 24 Respiratory Effort / Characteristics Blood Pressure 165/77 H Blood Pressure [Right Arm] Blood Pressure Mean 130 Blood Pressure Mean [Right Arm] Blood Pressure Position Blood Pressure Position [Right Arm] Pulse Oximetry 96 97 Oxygen Delivery Method Sepsis Recent Fever Within 48 Hours Sepsis New/Unexplained Change in Mental Status Sepsis Action Taken by Nursing 07/20/23 12:16 07/20/23 12:16 07/20/23 12:30 Temperature 36.7 C Temperature Source Oral Pulse Rate 71 71 Pulse Rate [Apical] Pulse Rate from SpO2 Sensor 72 Respiratory Rate 22 27 H Respiratory Effort / Characteristics Blood Pressure 164/72 H 142/64 H Blood Pressure [Right Arm] Blood Pressure Mean 135 90 Blood Pressure Mean [Right Arm] Blood Pressure Position Blood Pressure Position [Right Arm] Pulse Oximetry 98 98 Oxygen Delivery Method Sepsis Recent Fever Within 48 Hours Sepsis New/Unexplained Change in Mental Status Sepsis Action Taken by Nursing Laboratory Data 07/20/23 10:00 07/20/23 10:00 Lab Results 07/20/23 07/20/23 07/20/23 Range/Units 10:00 10:00 10:00 WBC 5.28 (4.8-10.8) K/ul RBC 1.80 L (4.70-6.10) M/uL Hgb 5.9 L* (14.0-18.0) g/dl Hct 18.9 L* (42.0-52.0) % MCV 105.0 H (80.0-100.0) fL MCH 32.8 (25.0-34.0) pg MCHC 31.2 L (32.0-36.0) g/dL RDW Std Deviation 73.3 H (36.4-46.3) fL RDW Coeff of Maricarmen 19.3 H (11.5-14.5) % Plt Count 251 (130-400) K/uL MPV 10.1 (9.4-12.4) fL Immature Gran % (Auto) 0.8 % Neut % (Auto) 53.9 % Lymph % (Auto) 24.4 % [place] % (Auto) 14.0 % Eos % (Auto) 6.3 % Baso % (Auto) 0.6 % Neut # (Auto) 2.85 (1.40-6.50) K/uL Lymph # (Auto) 1.29 (1.20-3.40) K/uL [place] # (Auto) 0.74 H (0.11-0.59) K/uL Eos # (Auto) 0.33 (0.00-0.50) K/uL Baso # (Auto) 0.03 (0.00-0.20) K/uL Immature Gran # (Auto) 0.04 (0.01-0.20) K/uL Polychromasia 1+ Acanthocytes (Spur) 1+ PT INR APTT PTT Ratio Sodium TNP Potassium TNP Chloride 104 (98-107) mmol/L Carbon Dioxide 27 (21-32) mmol/L Anion Gap TNP BUN 26 H (6-23) mg/dl Creatinine 1.22 (0.6-1.4) mg/dl Est Cr Clr Drug Dosing 45.1 ml/min Est GFR ( Amer) 60.5 ml/min Est GFR (Non-Af Amer) 52.2 ml/min BUN/Creatinine Ratio 21.3 H (10-20) Glucose 139 H (70-99(Fasting)) mg/dl Calcium 8.7 (8.6-10.3) mg/dl Magnesium TNP Total Bilirubin 0.4 (0.2-1.0) mg/dl AST TNP ALT 14 (7-52) U/L Alkaline Phosphatase TNP Troponin I High Sens (0-20) pg/ml B-Natriuretic Peptide (0-100) pg/ml Total Protein 8.5 H (6.0-8.3) gm/dl Albumin TNP Globulin TNP Albumin/Globulin Ratio TNP Urine Color Urine Appearance (Clear) Urine pH (4.5-7.5) Ur Specific [place] (1.000-1.030) Urine Protein (Negative) Urine Glucose (UA) (Negative) Urine Ketones (Negative) Urine Blood (Negative) Urine Nitrite (Negative) Urine Bilirubin (Negative) Urine Urobilinogen (Negative) Ur Leukocyte Esterase (Negative) Urine WBC (Auto) (0-5) /hpf Urine RBC (Auto) (0-4) /hpf U Hyaline Cast (Auto) (0-5) /lpf U Epithel Cells (Auto) (0-5) /lpf Urine Bacteria (Auto) (Negative) Digoxin (0.8-2.0) ng/ml SARS-CoV-2, RNA, NAAT (NEGATIVE) Blood Type Cancelled Antibody Screen Cancelled Crossmatch 07/20/23 07/20/23 07/20/23 Range/Units 10:00 10:00 10:00 WBC (4.8-10.8) K/ul RBC (4.70-6.10) M/uL Hgb (14.0-18.0) g/dl Hct (42.0-52.0) % MCV (80.0-100.0) fL MCH (25.0-34.0) pg MCHC (32.0-36.0) g/dL RDW Std Deviation (36.4-46.3) fL RDW Coeff of [place] (11.5-14.5) % Plt Count (130-400) K/uL MPV (9.4-12.4) fL Immature Gran % (Auto) % Neut % (Auto) % Lymph % (Auto) % [place] % (Auto) % Eos % (Auto) % Baso % (Auto) % Neut # (Auto) (1.40-6.50) K/uL Lymph # (Auto) (1.20-3.40) K/uL [place] # (Auto) (0.11-0.59) K/uL Eos # (Auto) (0.00-0.50) K/uL Baso # (Auto) (0.00-0.20) K/uL Immature Gran # (Auto) (0.01-0.20) K/uL Polychromasia Acanthocytes (Spur) PT Cancelled INR Cancelled APTT Cancelled PTT Ratio Cancelled Sodium Potassium Chloride (98-107) mmol/L Carbon Dioxide (21-32) mmol/L Anion Gap BUN (6-23) mg/dl Creatinine (0.6-1.4) mg/dl Est Cr Clr Drug Dosing ml/min Est GFR ( Amer) ml/min Est GFR (Non-Af Amer) ml/min BUN/Creatinine Ratio (10-20) Glucose (70-99(Fasting)) mg/dl Calcium (8.6-10.3) mg/dl Magnesium Total Bilirubin (0.2-1.0) mg/dl AST ALT (7-52) U/L Alkaline Phosphatase Troponin I High Sens 19.8 (0-20) pg/ml B-Natriuretic Peptide 404 H (0-100) pg/ml Total Protein (6.0-8.3) gm/dl Albumin Globulin Albumin/Globulin Ratio Urine Color Urine Appearance (Clear) Urine pH (4.5-7.5) Ur Specific [place] (1.000-1.030) Urine Protein (Negative) Urine Glucose (UA) (Negative) Urine Ketones (Negative) Urine Blood (Negative) Urine Nitrite (Negative) Urine Bilirubin (Negative) Urine Urobilinogen (Negative) Ur Leukocyte Esterase (Negative) Urine WBC (Auto) (0-5) /hpf Urine RBC (Auto) (0-4) /hpf U Hyaline Cast (Auto) (0-5) /lpf U Epithel Cells (Auto) (0-5) /lpf Urine Bacteria (Auto) (Negative) Digoxin (0.8-2.0) ng/ml SARS-CoV-2, RNA, NAAT (NEGATIVE) Blood Type Antibody Screen Crossmatch 07/20/23 07/20/23 07/20/23 Range/Units 10:00 10:40 10:42 WBC (4.8-10.8) K/ul RBC (4.70-6.10) M/uL Hgb (14.0-18.0) g/dl Hct (42.0-52.0) % MCV (80.0-100.0) fL MCH (25.0-34.0) pg MCHC (32.0-36.0) g/dL RDW Std Deviation (36.4-46.3) fL RDW Coeff of [place] (11.5-14.5) % Plt Count (130-400) K/uL MPV (9.4-12.4) fL Immature Gran % (Auto) % Neut % (Auto) % Lymph % (Auto) % [place] % (Auto) % Eos % (Auto) % Baso % (Auto) % Neut # (Auto) (1.40-6.50) K/uL Lymph # (Auto) (1.20-3.40) K/uL [place] # (Auto) (0.11-0.59) K/uL Eos # (Auto) (0.00-0.50) K/uL Baso # (Auto) (0.00-0.20) K/uL Immature Gran # (Auto) (0.01-0.20) K/uL Polychromasia Acanthocytes (Spur) PT 11.9 INR 1.1 APTT 26.9 PTT Ratio 1.0 Sodium Potassium Chloride (98-107) mmol/L Carbon Dioxide (21-32) mmol/L Anion Gap BUN (6-23) mg/dl Creatinine (0.6-1.4) mg/dl Est Cr Clr Drug Dosing ml/min Est GFR ( Amer) ml/min Est GFR (Non-Af Amer) ml/min BUN/Creatinine Ratio (10-20) Glucose (70-99(Fasting)) mg/dl Calcium (8.6-10.3) mg/dl Magnesium Total Bilirubin (0.2-1.0) mg/dl AST ALT (7-52) U/L Alkaline Phosphatase Troponin I High Sens (0-20) pg/ml B-Natriuretic Peptide (0-100) pg/ml Total Protein (6.0-8.3) gm/dl Albumin Globulin Albumin/Globulin Ratio Urine Color Urine Appearance (Clear) Urine pH (4.5-7.5) Ur Specific [place] (1.000-1.030) Urine Protein (Negative) Urine Glucose (UA) (Negative) Urine Ketones (Negative) Urine Blood (Negative) Urine Nitrite (Negative) Urine Bilirubin (Negative) Urine Urobilinogen (Negative) Ur Leukocyte Esterase (Negative) Urine WBC (Auto) (0-5) /hpf Urine RBC (Auto) (0-4) /hpf U Hyaline Cast (Auto) (0-5) /lpf U Epithel Cells (Auto) (0-5) /lpf Urine Bacteria (Auto) (Negative) Digoxin 0.4 L (0.8-2.0) ng/ml SARS-CoV-2, RNA, NAAT (NEGATIVE) Blood Type A Positive Antibody Screen NEGATIVE Crossmatch See Detail 07/20/23 07/20/23 07/20/23 Range/Units 10:42 11:39 12:20 WBC (4.8-10.8) K/ul RBC (4.70-6.10) M/uL Hgb (14.0-18.0) g/dl Hct (42.0-52.0) % MCV (80.0-100.0) fL MCH (25.0-34.0) pg MCHC (32.0-36.0) g/dL RDW Std Deviation (36.4-46.3) fL RDW Coeff of [place] (11.5-14.5) % Plt Count (130-400) K/uL MPV (9.4-12.4) fL Immature Gran % (Auto) % Neut % (Auto) % Lymph % (Auto) % [place] % (Auto) % Eos % (Auto) % Baso % (Auto) % Neut # (Auto) (1.40-6.50) K/uL Lymph # (Auto) (1.20-3.40) K/uL [place] # (Auto) (0.11-0.59) K/uL Eos # (Auto) (0.00-0.50) K/uL Baso # (Auto) (0.00-0.20) K/uL Immature Gran # (Auto) (0.01-0.20) K/uL Polychromasia Acanthocytes (Spur) PT INR APTT PTT Ratio Sodium 142 Potassium 4.5 Chloride (98-107) mmol/L Carbon Dioxide (21-32) mmol/L Anion Gap BUN (6-23) mg/dl Creatinine (0.6-1.4) mg/dl Est Cr Clr Drug Dosing ml/min Est GFR ( Amer) ml/min Est GFR (Non-Af Amer) ml/min BUN/Creatinine Ratio (10-20) Glucose (70-99(Fasting)) mg/dl Calcium (8.6-10.3) mg/dl Magnesium 2.2 Total Bilirubin (0.2-1.0) mg/dl AST 12 L ALT (7-52) U/L Alkaline Phosphatase 33 L Troponin I High Sens (0-20) pg/ml B-Natriuretic Peptide (0-100) pg/ml Total Protein (6.0-8.3) gm/dl Albumin 3.0 L Globulin Albumin/Globulin Ratio Urine Color Yellow Urine Appearance Clear (Clear) Urine pH 6.5 (4.5-7.5) Ur Specific [place] 1.017 (1.000-1.030) Urine Protein Trace H (Negative) Urine Glucose (UA) Negative (Negative) Urine Ketones Negative (Negative) Urine Blood Negative (Negative) Urine Nitrite Negative (Negative) Urine Bilirubin Negative (Negative) Urine Urobilinogen Negative (Negative) Ur Leukocyte Esterase Negative (Negative) Urine WBC (Auto) 1-5 (0-5) /hpf Urine RBC (Auto) 0-4 (0-4) /hpf U Hyaline Cast (Auto) 0 (0-5) /lpf U Epithel Cells (Auto) 5-10 H (0-5) /lpf Urine Bacteria (Auto) Negative (Negative) Digoxin (0.8-2.0) ng/ml SARS-CoV-2, RNA, NAAT NEGATIVE (NEGATIVE) Blood Type Antibody Screen Crossmatch Administered Medications Discontinued Medications Albuterol (Albut/Ipratrop 3mg/0.5mg Neb 3 Ml Vial) 3 ml NEB NOW STA; Protocol Stop: 07/20/23 09:59 Last Admin: 07/20/23 11:26 Dose: Not Given Documented By: OTF Furosemide (Furosemide 40 Mg/4 Ml Vial) 40 mg IV ONE ONE Stop: 07/20/23 11:06 Last Admin: 07/20/23 11:25 Dose: 40 mg Documented By: OTF Pantoprazole Sodium 80 mg/ (Dextrose) 120 mls @ 480 mls/hr IV ONE STA Stop: 07/20/23 10:11 Last Admin: 07/20/23 11:26 Dose: Not Given Documented By: OTF Losartan Potassium (Losartan Potassium 50 Mg Tab) 50 mg PO NOW ONE Stop: 07/20/23 14:44 Last Admin: 07/20/23 15:23 Dose: 50 mg Documented By: OTF Metoprolol Succinate (Metoprolol Succ 50mg Ext Rel Tab) 50 mg PO NOW ONE Stop: 07/20/23 14:43 Last Admin: 07/20/23 15:23 Dose: 50 mg Documented By: OTF Imaging Data Radiologist's Impression: Chest X-Ray 07/20/23 09:54 XR chest 1V portable HISTORY: 88 years-old Male Dyspnea acute shortness of breath COMPARISON: 04/20/2023 TECHNIQUE: AP view of the chest FINDINGS: Cardiac silhouette is enlarged. Median sternotomy. Left subclavian pacer/AICD. No pneumothorax, large pleural effusion or overt pulmonary edema. Pulmonary vascular congestion. Bones appear grossly intact. IMPRESSION: Cardiomegaly with pulmonary vascular congestion. ACT 112: Negative or not required by law. The above report was generated using voice recognition software. It may contain grammatical, syntax or spelling errors. Electronically signed by: Sourav Lr M.D. 07/20/2023 11:00 AM Discharge Plan Visit Data Chief Complaint: Shortness of Breath/Dyspnea Stated Complaint: SOB ED Provider: Gabriela,Tim T Discharge Problem: Anemia, Multiple myeloma, Congestive heart failure Patient Disposition: Admitted As Inpatient Discharge Instructions Interventions: ED Discharge Assessment Last Done: 07/20/23 16:28
[2023-07-20 10:21] LABS: Hematocrit (blood only) 18.9 % (42.0-52.0); Hemoglobin 5.9 g/dl (14.0-18.0); Mean Corpuscular Hemoglobin 32.8 pg (25.0-34.0); Mean Corpuscular Hgb Conc 31.2 g/dL (32.0-36.0); Mean Platelet Volume 10.1 fL (9.4-12.4); Platelet Count 251 K/uL (130-400); RDW Coefficient of Variation 19.3 % (11.5-14.5); RDW Standard Deviation 73.3 fL (36.4-46.3); White Blood Count 5.28 K/ul (4.8-10.8)
[2023-07-20 10:49] LABS: Alanine Aminotransferase 14 U/L (7-52); BUN Creatinine Ratio 21.3 (10-20); Bilirubin,Total 0.4 mg/dl (0.2-1.0); Blood Urea Nitrogen 26 mg/dl (6-23); Calcium 8.7 mg/dl (8.6-10.3); Carbon Dioxide 27 mmol/L (21-32); Chloride 104 mmol/L (98-107); Creatinine Clr Calc Pharmacy 45.1 ml/min; Est GFR (African American) 60.5 ml/min; Est GFR (Non-African American) 52.2 ml/min; Glucose 139 mg/dl (70-99(Fasting)); Total Protein 8.5 gm/dl (6.0-8.3)
[2023-07-20 10:52] LABS: Acanthocytes 1+; Basophils # (auto) 0.03 K/uL (0.00-0.20); Basophils % (auto) 0.6 %; Eosinophils # (auto) 0.33 K/uL (0.00-0.50); Eosinophils % (auto) 6.3 %; Immature Granulocytes # (auto) 0.04 K/uL (0.01-0.20); Immature Granulocytes % (auto) 0.8 %; Lymphocytes # (auto) 1.29 K/uL (1.20-3.40); Lymphocytes % (auto) 24.4 %; Monocytes # (auto) 0.74 K/uL (0.11-0.59); Neutrophils # (auto) 2.85 K/uL (1.40-6.50); Neutrophils % (auto) 53.9 %; Polychromasia 1+
--- NOTE | 2023-07-20 11:02 | XRay Report ---
XR chest 1V portable HISTORY: 88 years-old Male Dyspnea acute shortness of breath COMPARISON: 04/20/2023 TECHNIQUE: AP view of the chest FINDINGS: Cardiac silhouette is enlarged. Median sternotomy. Left subclavian pacer/AICD. No pneumothorax, large pleural effusion or overt pulmonary edema. Pulmonary vascular congestion. Bones appear grossly intac t. IMPRESSION: Cardiomegaly with pulmonary vascular congestion. ACT 112: Negative or not required by law. The above report was generated using voice recognition software. It may contain grammatical, syntax o r spelling errors. Electronically signed by: Sourav Lr M.D. 07/20/2023 11:00 AM
[2023-07-20] MEDS ORDERED: FUROSEMIDE 40 MG/4 ML VIAL IV ONE ×2 (11:05→20:34)
[2023-07-20 11:14] LABS: Magnesium 2.2 mg/dl (1.7-2.4); Potassium 4.5 mmol/L (3.5-5.1)
[2023-07-20] MEDS ORDERED: SODIUM CHLORIDE 0.9% 250 ML IV PRN ×2 (11:15→20:33)
[2023-07-20 11:28] LABS: INR 1.1 (0.9-1.1); Partial Thromboplastin Time 26.9 Seconds (21.0-31.0); Prothrombin Time 11.9 Seconds (9.0-12.0)
[2023-07-20 12:07] LABS: Appearance Urine Clear (Clear); Bacteria Urine Automated Negative (Negative); Bilirubin Urine Negative (Negative); Blood Urine Negative (Negative); Cast Urine Automated 0 /lpf (0-5); Color Urine Yellow; Glucose Urine UA Negative (Negative); Ketones Urine Negative (Negative); Leukocyte Esterase Urine Negative (Negative); Nitrite Urine Negative (Negative); Protein Urine Trace (Negative); RBC Urine Automated 0-4 /hpf (0-4); Specific Gravity Urine 1.017 (1.000-1.030); Urobilinogen Urine Negative (Negative); pH Urine 6.5 (4.5-7.5)
--- NOTE | 2023-07-20 12:38 | History & Physical Report ---
Date of Service July 20, 2023 Assessment & Plan (1) Anemia: (2) Multiple myeloma: (3) BPH (benign prostatic hyperplasia): (4) Ischemic cardiomyopathy: (5) Tachy-lorna syndrome: (6) CAD (coronary artery disease): (7) Anemia: Plan This is a 88yo M with a PMH of multiple myeloma requiring multiple transfusions, CAD s/p CABG, s/p stent, BPH, tachybradycardia syndrome s/p biventricular pacemaker, moderate asthmatic lung disease, nocturnal hypoxemia, history of diffuse cardiomyopathy mixed etiology, chronic atrial fibrillation with anticoagulationcontraindications, moderate aortic and tricuspid insufficiency, diabetes, chronic kidney disease stage III, GERD, history of prostatitis with hematuria, sensorineural hearing loss of both ears, late onset Alzheimer's dementia who presents with SOB. Anemia In setting of Multiple myeloma requiring recent weekly transfusions (last transfused 07/14), TYRESE Hgb 6.7 yesterday, 5.9 today Consented, transfusing 2u prbcs with 40mg IV Lasix in between Admitted in April 2023 for anemia, possible GI bleed - EGD without evidence of bleeding, colonoscopy shows multiple polyps seen which were resected and retrieved No evidence of active bleeding, continue Protonix for now Currently on plavix for h/o CAD, most recent intervention with stent in 2013. Aspirin previously discontinued Continue iron supplementation Repeat H&H this evening Shortness of breath CHF exacerbation CXR with cardiomegaly with pulmonary vascular congestion, BNP 404 2D echo from April 2022 with EF 55-60%, grade 1 diastolic dysfunction, AV sclerosis, mod AR, mod TR Given 40mg IV Lasix in ED between transfusions [facility] has been receiving 20mg Lasix after weekly transfusions - may need to increase? Not dyspneic at rest, O2 saturation 97% on room air Re-assess diuresis this evening Home lasix dose currently is 40mg daily I&Os, daily weights, repeat echo Multiple Myeloma Follows with Dr. Sykes Family member decided not to proceed with any kind of systemic chemotherapy for the multiple myeloma diagnosis. Continue blood transfusion support for the symptomatic anemia DM II A1c 9.3 in 2022 Hold home agents SSI while in-patient BSG AC HS HTN Given missed dose of losartan, Toprol Asthma/COPD No signs/sx of exacerbation Continue home Advair, Duonebs as needed Persistent atrial fibrillation Anticoagulation contraindicated 2/2 GI bleeds Continue Digoxin, Toprol CKD III Cr of 1.22 today (baseline ~ 1.5). Continue to monitor with daily BMP Alzheimer's dementia DVT Ppx: SCDs given anemia, h/o GI bleeding Code status: DNR/DNI PCP: Dr. Lyon Dispo: Admitted to PCU Patient seen in collaboration with Dr. Davila. Please see addendum. History of Present Illness Chief Complaint: anemia Primary Care Provider: Muriel Chowdary MD This is a 88yo M with a PMH of multiple myeloma requiring multiple transfusions, CAD s/p CABG, s/p stent, BPH, tachybradycardia syndrome s/p biventricular pacemaker, moderate asthmatic lung disease, nocturnal hypoxemia, history of diffuse cardiomyopathy mixed etiology, chronic atrial fibrillation with anticoagulationcontraindications, moderate aortic and tricuspid insufficiency, diabetes, chronic kidney disease stage III, GERD, history of prostatitis with hematuria, sensorineural hearing loss of both ears, late onset Alzheimer's dementia who presents with SOB. Was seen in clinic yesterday and told his hemoglobin was 6.7 and arrangements were being made for transfusion but in the interim developed shortness of breath and was directed by Tiffanie at home to present to ED for further evaluation. History obtained from and son at bedside due to patient's dementia. Was reportedly more short of breath when he woke up this morning. states he takes his oxygen off during the night quite frequently, but even after replacing oxygen, remains short of breath, prompting the visit to the ED. Has been taking Lasix as directed except did not take this morning. Denies any changes of increased fluids or salt in diet. Has been requiring weekly transfusions in the [facility] in the setting of multiple myeloma, most recently this past Monday. is unsure if he is being pretreated with Lasix for those transfusions. Patient states he is comfortable, denying any chest pain or abdominal pain. No shortness of breath at rest. Denies any black or bloody stools. Remainder of ROS unobtainable due to cognitive state. Allergies Allergy/AdvReac Type Severity Reaction Status Date / Time Sulfa (Sulfonamide Allergy Severe Unresponsiv Verified 07/14/23 11:00 Antibiotics) e FELECIA Inhibitors Allergy Unknown Unknown Verified 07/14/23 11:00 prednisone AdvReac Intermediate BLISTERS Verified 07/14/23 11:00 IN THROAT pseudoephedrine AdvReac Intermediate TEMP ELEV Verified 07/14/23 11:00 Home Medications Medication Instructions Recorded Confirmed Type albuterol sulfate 90 mcg/actuation 2 puff inhalation QID PRN 06/07/18 07/20/23 History aerosol inhaler (Proventil HFA) Shortness Of Breath digoxin 125 mcg (0.125 mg) tablet 125 mcg PO 3XWK 06/07/18 07/20/23 History fluticasone 250 mcg-salmeterol 50 1 inh inhalation AMHS 06/07/18 07/20/23 History mcg/dose blistr powdr for inhalation (Advair Diskus) magnesium oxide 400 mg (241.3 mg 400 mg PO PM 06/07/18 07/20/23 History magnesium) tablet potassium chloride 20 mEq 20 meq PO QAM 06/07/18 07/20/23 History tablet,extended release(part/cryst) (Klor-Con M) furosemide 40 mg tablet (Lasix) 40 mg PO QAM 04/25/19 07/20/23 History latanoprost 0.005 % eye drops 1 drp OPB HS 03/24/20 07/20/23 History albuterol sulfate 1.25 mg/3 mL 1.25 mg inhalation Q4H PRN Wheezing 04/21/21 07/20/23 History solution for nebulization pantoprazole 40 mg tablet,delayed 40 mg PO QAM 10/22/21 07/20/23 History release dutasteride 0.5 mg capsule 0.5 mg PO DAILY #90 caps 01/03/22 07/20/23 Rx clopidogrel 75 mg tablet 75 mg PO QAM 04/20/22 07/20/23 History triamcinolone acetonide 0.1 % 1 applic topical BID PRN rash or 04/20/22 07/20/23 History topical ointment more instead of scratching diclofenac sodium 1 % topical gel 2 g EXT QID PRN pain #100 grams 04/29/22 07/20/23 Rx (Voltaren Arthritis Pain) acetaminophen 325 mg tablet 325 mg PO Q4 PRN Fever Or Pain 08/28/22 07/20/23 History ferrous sulfate 325 mg (65 mg 325 mg PO Q OTHER DAY 08/28/22 07/20/23 History iron) tablet (FeroSul) losartan 50 mg tablet 50 mg PO QAM 08/28/22 07/20/23 History metoprolol succinate 50 mg 50 mg PO DAILY 08/28/22 07/20/23 History tablet,extended release 24 hr multivitamin 1 tab PO DAILY 08/28/22 07/20/23 History methenamine hippurate 1 gram tablet 1 g PO BID 30 days #60 tabs 11/25/22 07/20/23 Rx glipizide 5 mg tablet, extended 5 mg PO QAM 04/20/23 07/20/23 History release 24 hr Past Med/Surg History Medical History Anemia Aortic aneurysm unsure of last ultrasound/scan -- no surgical intervention. Moderate aortic root dilatation noted on 2018 echo. No AAA noted on [address] Aortic valve insufficiency Moderate-severe per 11/2018 echo BPH (benign prostatic hyperplasia) CAD (coronary artery disease) (08/21/14) S/p CABG July 2000 receiving KAUR graft to LAD, saphenous vein graft sequentially from the obtuse marginal to diagonal. S/p stenting of prox Cx 2013 Chronic back pain CKD stage 3 due to type 2 diabetes mellitus no specialist COPD (chronic obstructive pulmonary disease) well controlled rare res inh use Dementia mild at present Dementia Dyslipidemia Encounter for pre-operative examination GERD (gastroesophageal reflux disease) GI bleed per pt's > had 3 units PRBC's [facility] during admission in Jul 2021 Glaucoma Hearing deficit [place] History of colon polyps History of pacemaker HTN (hypertension) Ischemic cardiomyopathy EF normalized, most recently 55-60% on 11/2018 echo Multiple myeloma On home oxygen therapy 2 LPM QHS Osteoarthritis Persistent atrial fibrillation Anticoagulation contraindicated per cardiology > ICD Presence of combination internal cardiac defibrillator (ICD) and pacemaker follows w/ Dr. Sanford > [employer] > gets checked electronically > PMH provided by , eduardo when last checked in office. Severe sepsis Shingles Tachy-lorna syndrome S/p dual chamber pacer with upgrade to pacer/ICD 2014 Type II diabetes mellitus NIDDM Surgical History History of cardiac cath 1999 --> CABG 2013 - 1 stent - [facility] History of cataract surgery bilat History of colonoscopy History of esophagogastroduodenoscopy (EGD) History of implantable cardioverter-defibrillator (ICD) placement History of prostate surgery non cancerous History of tonsillectomy History of tooth extraction S/P CABG x 3 1999 S/P coronary artery stent placement July 2014 with stenting of the proximal circumflex Family History Grandmother Diabetes Mother Colon cancer Other Melanoma No family history of adverse response to anesthesia Social History Smoking Status: Never smoker Tobacco Type: Cigarettes Second Hand Exposure: No; Do You Dip or Chew Tobacco: No; Hx Alcohol Use: No Hx Substance Use: No Preferred Language: [place] Communication Ability: Impaired Communication Ability Comment: [place] despite b/[place] [employer] Required: No Beliefs That Will Affect Care: None marital status: Current Living Situation: Spouse How many Children do You have: 2 Feels Safe at Home: Yes Assistive Devices: Cane and Oxygen - at Night Review of Systems Review of Systems: Unobtainable due to cognitive status Physical Exam Physical Exam: General Appearance: WD/WN, vitals as above, NAD, resting in bed, pleasant, conversing easily Head: normocephalic, atraumatic Eyes: normal inspection, PERRL, conjunctivae normal, anicteric sclerae ENT: external ear and nose normal, oropharynx normal Neck: normal visual inspection, trachea midline, no thyromegaly Respiratory: normal respiratory effort,lungs diminished at bases bilaterally, no wheeze, no rales or rhonchi. No accessory muscle use Cardiovascular: regular rate, rhythm, normal peripheral pulses, no BLE edema. Vessels: no JVD Chest: normal inspection of chest Abdomen/GI: normal bowel sounds, soft, non-tender, no hepatosplenomegaly Extremities/Musculoskeletal: no cyanosis or clubbing, extremities motor strength 5/5 Neurologic: PERRL, EOMI, accommodation nl, no face palsy, no dysarthria, CN's II-XI intact bilaterally and moves all extremities Psychiatric: A+Ox2, euthymic affect Skin: no rashes, warm/dry, +pale Results & Data Results & Data Vital Signs (Past 12 Hours) Vital Signs Temp Pulse Pulse Resp BP BP Pulse Ox 07/20/23 12:30 36.7 C 71 27 H 142/64 H 98 07/20/23 12:16 164/72 H 10/19/23 12:16 71 22 98 07/20/23 12:00 71 24 97 07/20/23 12:00 165/77 H 07/20/23 11:52 96 07/20/23 11:01 70 22 96 07/20/23 11:01 167/82 H 07/20/23 11:00 70 18 98 07/20/23 10:30 70 19 95 07/20/23 10:30 177/75 H 07/20/23 10:00 73 25 H 87 L 07/20/23 09:53 160/78 H 07/20/23 09:53 71 31 H 98 07/20/23 09:49 83 32 H 99 07/20/23 12:15 36.6 C 72 15 164/72 H 07/20/23 10:09 37.0 C 80 18 160/78 H 97 07/20/23 10:09 97 07/20/23 10:10 80 18 97 07/20/23 10:10 37.0 C 80 18 160/78 H 97 07/20/23 09:50 80 O2 Del Method 07/20/23 12:30 07/20/23 12:16 07/20/23 12:16 07/20/23 12:00 07/20/23 12:00 07/20/23 11:52 07/20/23 11:01 07/20/23 11:01 07/20/23 11:00 07/20/23 10:30 07/20/23 10:30 07/20/23 10:00 07/20/23 09:53 07/20/23 09:53 07/20/23 09:49 07/20/23 12:15 07/20/23 10:09 Room Air 07/20/23 10:09 Room Air 07/20/23 10:10 Room Air 07/20/23 10:10 Room Air 07/20/23 09:50 Laboratory Results Short CBC 07/20/23 Range/Units 10:00 WBC 5.28 (4.8-10.8) K/ul Hgb 5.9 L* (14.0-18.0) g/dl Hct 18.9 L* (42.0-52.0) % Plt Count 251 (130-400) K/uL BMP 07/20/23 07/20/23 10:00 10:42 Sodium TNP 142 Potassium TNP 4.5 Chloride 104 Carbon Dioxide 27 BUN 26 H Creatinine 1.22 Glucose 139 H Calcium 8.7 Liver Function 07/20/23 07/20/23 Range/Units 10:00 10:42 Total Bilirubin 0.4 (0.2-1.0) mg/dl AST TNP 12 L ALT 14 (7-52) U/L Alkaline Phosphatase TNP 33 L Albumin TNP 3.0 L Urine 07/20/23 Range/Units 11:39 Urine Color Yellow Urine Appearance Clear (Clear) Urine pH 6.5 (4.5-7.5) Ur Specific [place] 1.017 (1.000-1.030) Urine Protein Trace H (Negative) Urine Glucose (UA) Negative (Negative) Diagnostic Findings Chest X-Ray 07/20/23 09:54 XR chest 1V portable HISTORY: 88 years-old Male Dyspnea acute shortness of breath COMPARISON: 04/20/2023 TECHNIQUE: AP view of the chest FINDINGS: Cardiac silhouette is enlarged. Median sternotomy. Left subclavian pacer/AICD. No pneumothorax, large pleural effusion or overt pulmonary edema. Pulmonary vascular congestion. Bones appear grossly intact. IMPRESSION: Cardiomegaly with pulmonary vascular congestion. ACT 112: Negative or not required by law. The above report was generated using voice recognition software. It may contain grammatical, syntax or spelling errors. Electronically signed by: Sourav Lr M.D. 07/20/2023 11:00 AM ECG Additional Comments: EKG reviewed ventricular-paced rhythm Abnormal ECG When compared with ECG of 20-APR-2023 17:16, Vent. rate has increased BY 2 BPM Code Status & VTE Plan VTE Prophylaxis Plan VTE Prophylaxis will be ordered: Yes Supervising Physician Co-Signing Physician Notes I have seen and discussed the case with the collaborating DAMEON. I agree with the above H&P. I have reviewed and confirmed the patients medical history, the findings on physical examination, and the patients diagnosis and treatment plan with Werner XIAO and agree with the information documented. In short, Mr. Booth is an 88 year old gentleman with past medical history notable for multipe myeloma c/b transfusion dependent anemia, CKD, HFpEF (EF 55-60% 2021) who is admitted for symptomatic anemia. Last transfusion on 07/14. Patient presented to OP appointment 07/19 due to fatigue and SOB. On admission, hgb noted to be 5.9. CXR with noted pulm edema and vascular congestion corresponding with BNP of 404. Patient receiving 40mg lasix IV and 2U prbc. Plan for transfusion. consider cardiology consult in am once hgb stable--will likely need to discuss OP PO lasix prn with timing centered around transfusions. Rest of plan as above.
--- NOTE | 2023-07-20 13:24 | Electrocardiogram Report ---
Test Reason : Blood Pressure : / mmHG Vent. Rate : 072 BPM Atrial Rate : 076 BPM P-R Int : 000 ms QRS Dur : 152 ms QT Int : 444 ms P-R-T Axes : 000 228 034 degrees QTc Int : 486 ms Ventricular-paced rhythm Abnormal ECG When compared with ECG of 20-APR-2023 17:16, Vent. rate has increased BY 2 BPM Confirmed by Joe Menard ([id number]) on 07/20/2023 1:24:14 PM Referred By: Confirmed By:Joe Menard
[2023-07-20] MEDS ORDERED: METOPROLOL SUCC 50MG EXT REL TAB PO ONE (14:42)
[2023-07-20] MEDS ORDERED: LOSARTAN POTASSIUM 50 MG TAB PO ONE (14:43)
[2023-07-20] MEDS ORDERED: GLUCAGON FOR INJ 1 MG VIAL SQ PRN (16:33)
[2023-07-20] MEDS ORDERED: ALBUTEROL HFA 8 GM INHALER INH PRN (16:33)
[2023-07-20] MEDS ORDERED: GLUCOSE 10 TAB/TUBE PO PRN (16:33)
[2023-07-20] MEDS ORDERED: ACETAMINOPHEN 325 MG TAB PO PRN (16:33)
[2023-07-20] MEDS ORDERED: DICLOFENAC SOD 1% GEL 100 GM TUBE EXT PRN (16:33)
[2023-07-20] MEDS ORDERED: CARBOHYDRATES FOR HYPOGLYCEMIA PO PRN (16:33)
[2023-07-20] MEDS ORDERED: DEXTROSE 50% 50 ML SYRINGE IV PRN (16:33)
[2023-07-20] MEDS ORDERED: POLYETHYLENE (MIRALAX) 17 GM PACK PO PRN (16:33)
[2023-07-20] MEDS ORDERED: GLUCOSE 40% GEL 15 GM TUBE PO PRN (16:33)
[2023-07-20] MEDS ORDERED: ONDANSETRON INJ 2 MG/ML 2 ML VIAL IV PRN (16:33)
[2023-07-20] MEDS ORDERED: TRIAMCINOLONE ACET 0.1% OINT 15 GM TUBE TOP PRN (16:33)
[2023-07-20] MEDS ORDERED: ALBUTEROL 0.5% NEB SOLN 2.5 MG/0.5 ML VIAL INH PRN (16:36)
[2023-07-20] MEDS: INSULIN ASPART PER UNIT CHARGE SC SCH ×2 (17:53→21:08)
[2023-07-20 20:19] LABS: Hematocrit (blood only) 21.9 % (42.0-52.0); Hemoglobin 6.8 g/dl (14.0-18.0)
[2023-07-20] MEDS ORDERED: MAGNESIUM OXIDE 400 MG TAB PO SCH (21:00)
[2023-07-20] MEDS ORDERED: LATANOPROST 0.005% OP SOLN 2.5 ML BTL OPB SCH (21:00)
[2023-07-20] MEDS: METHENAMINE HIPPURATE 1 GM TAB PO SCH (21:08)
[2023-07-21 06:09] LABS: Hematocrit (blood only) 27.6 % (42.0-52.0); Mean Corpuscular Hemoglobin 31.4 pg (25.0-34.0); Mean Corpuscular Hgb Conc 32.6 g/dL (32.0-36.0); Mean Corpuscular Volume 96.2 fL (80.0-100.0); Mean Platelet Volume 9.5 fL (9.4-12.4); Nucleated RBC # (auto) 0.02 K/uL (0.00-0.12); Nucleated RBC % (auto) 0.3 %; Platelet Count 214 K/uL (130-400); RDW Coefficient of Variation 20.2 % (11.5-14.5); RDW Standard Deviation 66.2 fL (36.4-46.3); Red Blood Count 2.87 M/uL (4.70-6.10); White Blood Count 5.81 K/ul (4.8-10.8)
[2023-07-21 06:18] LABS: BUN Creatinine Ratio 23.5 (10-20); Calcium 8.6 mg/dl (8.6-10.3); Creatinine Clr Calc Pharmacy 41.6 ml/min; Est GFR (Non-African American) 47.5 ml/min; Potassium 3.9 mmol/L (3.5-5.1)
[2023-07-21 07:12] LABS: Estimated Average Glucose 111 mg/dl; Hemoglobin A1C 5.5 % (4.5-5.6)
[2023-07-21 08:30] LABS: Rouleaux 1+
[2023-07-21] MEDS: INSULIN ASPART PER UNIT CHARGE SC SCH ×2 (08:37→12:23)
[2023-07-21] MEDS: METHENAMINE HIPPURATE 1 GM TAB PO SCH (08:39)
[2023-07-21] MEDS ORDERED: FLUTICASONE/VILANTEROL 200/25MCG 14 PUFFS/INHALER INH SCH (09:00)
[2023-07-21] MEDS ORDERED: FINASTERIDE 5 MG TAB PO SCH (09:00)
[2023-07-21] MEDS ORDERED: PANTOprazole 40 MG TAB PO SCH (09:00)
[2023-07-21] MEDS ORDERED: MULTIVITAMIN TAB PO SCH (09:00)
[2023-07-21] MEDS ORDERED: METOPROLOL SUCC 50MG EXT REL TAB PO SCH (09:00)
[2023-07-21] MEDS ORDERED: LOSARTAN POTASSIUM 50 MG TAB PO SCH (09:00)
[2023-07-21] MEDS ORDERED: FUROSEMIDE 40 MG TAB PO SCH (09:00)
[2023-07-21] MEDS ORDERED: POTASSIUM CHLORIDE CRTAB 20 MEQ TABCR PO SCH (09:00)
--- NOTE | 2023-07-21 15:12 | Discharge Summary ---
Date of Service July 21, 2023 Admission HPI Per Admitting Provider This is a 88yo M with a PMH of multiple myeloma requiring multiple transfusions, CAD s/p CABG, s/p stent, BPH, tachybradycardia syndrome s/p biventricular pacemaker, moderate asthmatic lung disease, nocturnal hypoxemia, history of diffuse cardiomyopathy mixed etiology, chronic atrial fibrillation with anticoagulationcontraindications, moderate aortic and tricuspid insufficiency, diabetes, chronic kidney disease stage III, GERD, history of prostatitis with hematuria, sensorineural hearing loss of both ears, late onset Alzheimer's dementia who presents with SOB. Was seen in clinic yesterday and told his hemoglobin was 6.7 and arrangements were being made for transfusion but in the interim developed shortness of breath and was directed by Tiffanie at home to present to ED for further evaluation. History obtained from and son at bedside due to patient's dementia. Was reportedly more short of breath when he woke up this morning. states he takes his oxygen off during the night quite frequently, but even after replacing oxygen, remains short of breath, prompting the visit to the ED. Has been taking Lasix as directed except did not take this morning. Denies any changes of increased fluids or salt in diet. Has been requiring weekly transfusions in the [facility] in the setting of multiple myeloma, most recently this past Monday. is unsure if he is being pretreated with Lasix for those transfusions. Patient states he is comfortable, denying any chest pain or abdominal pain. No shortness of breath at rest. Denies any black or bloody stools. Remainder of ROS unobtainable due to cogni tive state. Admission Exam Per Admitting Provider General Appearance:WD/WN, vitals as above, NAD, resting in bed, pleasant, conversing easily Head: normocephalic, atraumatic Eyes:normal inspection, PERRL, conjunctivae normal, anicteric sclerae ENT: external ear and nose normal, oropharynx normal Neck: normal visual inspection, trachea midline, no thyromegaly Respiratory:normal respiratory effort,lungs diminished at bases bilaterally, no wheeze, no rales or rhonchi. No accessory muscle use Cardiovascular: regular rate, rhythm, normal peripheral pulses, no BLE edema. Vessels: no JVD Chest: normal inspection of chest Abdomen/GI: normal bowel sounds, soft, non-tender, no hepatosplenomegaly Extremities/Musculoskeletal: no cyanosis or clubbing, extremities motor strength 5/5 Neurologic: PERRL, EOMI, accommodation nl, no face palsy, no dysarthria, CN's II-XI intact bilaterally and moves all extremities Psychiatric:A+Ox2, euthymic affect Skin: no rashes, warm/dry, +pale Principal Diagnosis Anemia in the setting of multiple myeloma Shortness of breath, likely CHF exacerbation Discharge Exam GENERAL: Alert and awake. NAD, on RA. very [place]. HEENT: No pallor, no icterus. Pupils equal, round and reactive to light. Oral mucosa moist. NECK: No JVD, no neck masses. HEART: S1 and S2 heard. Regular rate and rhythm. No murmur, no gallop. RESPIRATORY SYSTEM: Normal AP diameter. No accessory muscle use. No wheezing, bb crackles. ABDOMEN: Soft, bowel sounds present, nontender, no distention. CENTRAL NERVOUS SYSTEM: No facial droop. Speech is clear. Obeys simple commands. Moves extremities. EXTREMITIES: No edema, no erythema seen. Discharge Data Allergies Allergy/AdvReac Type Severity Reaction Status Date / Time Sulfa (Sulfonamide Allergy Severe Unresponsiv Verified 07/14/23 11:00 Antibiotics) e FELECIA Inhibitors Allergy Unknown Unknown Verified 07/14/23 11:00 prednisone AdvReac Intermediate BLISTERS Verified 07/14/23 11:00 IN THROAT pseudoephedrine AdvReac Intermediate TEMP ELEV Verified 07/14/23 11:00 Consultations 07/20/23 12:02 ED Decision to Admit Stat Hospital Course (1) Anemia: (2) Multiple myeloma: (3) BPH (benign prostatic hyperplasia): (4) Ischemic cardiomyopathy: (5) Tachy-lorna syndrome: (6) CAD (coronary artery disease): Plan 88-year-old gentleman who has been receiving lately weekly blood transfusion and had recent outpatient hemoglobin of 6.7/was about to get PRBC transfusion as an outpatient presented to the ED 07/20 with acute worsening shortness of breath yesterday and admitting hemoglobin was 5.9. Admitting CXR with pulmonary vascular congestion. Patient improved breathing with IV Lasix at presentation. Patient needed 4 unit PRBC, hemoglobin 9.0 today. Patient is very hard of hearing, discussed with patient's who stated that there is no concern of bleeding in the urine or stool, no question of black stool. She also denies any recent fall or hitting head. She feels confident that the patient is back to his baseline and would like to take him home. She has been advised that patient take Lasix daily in the morning as prior and additionally every other day in the afternoon at 40 mg dose. Patient to follow-up with cardiology in 2 to 4 weeks time upon discharge. Patient was managed for: Anemia in the setting of multiple myeloma requiring frequent transfusions, possibly mild acute exacerbation of heart failure with preserved ejection fraction. Patient on room air, feels better, is hemodynamically stable. Patient being discharged home with close supervision from family and home health. Following instructions communicated at the point of discharge: Follow-up with your primary care physician within a week time and likely you will need labs CBC/CMP/magnesium/phosphorus. Follow-up with your oncology in 1 to 2 weeks time. Follow-up with the palliative care in 1 to 2 weeks time upon discharge. Follow-up with your cardiology in 2 to 4 weeks time upon discharge. Take your Lasix daily in the morning as prior. Take 40 mg Lasix every other day in the afternoon. Take your medications as prescribed. Please make sure that you are able to get your medications today by calling your pharmacy before you leave the hospital so that your treatment continuity is not broken. Home Health Attestation I certify that this patient is under my care and that I, or a physicians kitchen assistant working with me, had a face to-face encounter that meets the home health [id number] encounter requirements with this patient. The encounter with the patient was in whole, or in part, for the following medical condition, which is the primary reason for home health care (list medical condition): I certify that, based on my findings, the following services are medically ne cessary home health services: My clinical findings support the need for the above services because: Further, I certify that my clinical findings support that this patient is homebound (i.e. absences from home require considerable and taxing effort and are for medical reasons or [facility] services or infrequently or of short duration when for other reasons) because: Certification for Home Health Services: Based on the above findings, I certify that this patient is confined to the home and needs intermittent chcf care, physical therapy and/or speech therapy or continues to need occupational therapy. The patient is under my care, and I have initiated the establishment of the plan of care. This patient will be followed by a physician who will periodically review the plan of care. Total Time Total Time Spent Total Time Spent (In Minutes): 45 Discharge Plan Discharge Items Patient Disposition: Home - Home Health Services Reason For Visit: ANEMIA Discharge Diagnosis: Anemia in the setting of multiple myeloma Shortness of breath, likely CHF exacerbation Activity: Resume your previous activity Non-emergency contact: Primary Care Provider Call non-emergency contact if: you have any medication questions and your symptoms worsen Follow-up/Referrals: Chris Choudhury [Physician [place]man] - (Date & Time 08/29/2023 3:30 PM Provider Chris Choudhury PA-C Department Cardiology [facility] ) Pietro Sykes MD [Surgeon] - (The Oncology office will contact you.) Muriel Chowdary MD [Primary Care Provider] - (Date & Time 07/25/2023 3:40 PM Provider Muriel Marrero MD Department Family Medicine [facility] ) Diet: Low Potassium (2gm) Addtl Attending Provider Instructions: Follow-up with your primary care physician within a week time and likely you will need labs CBC/CMP/magnesium/phosphorus. Follow-up with your oncology in 1 to 2 weeks time. Follow-up with the palliative care in 1 to 2 weeks time upon discharge. Follow-up with your cardiology in 2 to 4 weeks time upon discharge. Take your Lasix daily in the morning as prior. Take 40 mg Lasix every other day in the afternoon. Take your medications as prescribed. Please make sure that you are able to get your medications today by calling your pharmacy before you leave the hospital so that your treatment continuity is not broken. Pending Studies at Discharge: No Stand-Alone Forms: My [employer], Smoking Cessation Medications and DC Order Prescriptions: New furosemide 40 mg tablet 40 mg PO Q OTHER DAY Qty: 20 0RF Rx Instructions: Take every other afternoon. Continued dutasteride 0.5 mg capsule 0.5 mg PO DAILY Qty: 90 3RF methenamine hippurate 1 gram tablet 1 g PO BID 30 Days Qty: 60 5RF furosemide [Lasix] 40 mg Tablet 40 mg PO QAM fluticasone propion-salmeterol [Advair Diskus] 250-50 mcg/dose Blister With D evice 1 inh INHALATION [facility] potassium chloride [Klor-Con M20] 20 mEq Tablet,Er Particles/Crystals 20 meq PO QAM magnesium oxide 400 mg (241.3 mg magnesium) Tablet 400 mg PO PM digoxin 125 mcg Tablet 125 mcg PO 3XWK Rx Instructions: take 1 tablet mon,wed,fri albuterol sulfate [Proventil HFA] 90 mcg/actuation Hfa Aerosol Inhaler 2 puff INHALATION QID PRN (Reason: Shortness Of Breath) latanoprost 0.005 % Drops 1 drp OPB HS albuterol sulfate 1.25 mg/3 mL Solution For Nebulization 1.25 mg INHALATION Q4H PRN (Reason: Wheezing) pantoprazole 40 mg tablet,delayed release (DR/EC) 40 mg PO QAM clopidogrel 75 mg tablet 75 mg PO QAM triamcinolone acetonide 0.1 % Ointment 1 applic TOPICAL BID PRN (Reason: rash or more instead of scratching) diclofenac sodium [Voltaren Arthritis Pain] 1 % Gel 2 g EXT QID PRN (Reason: pain) Qty: 100 0RF metoprolol succinate 50 mg tablet extended release 24 hr 50 mg PO DAILY losartan 50 mg tablet 50 mg PO QAM ferrous sulfate [FeroSul] 325 mg (65 mg iron) tablet 325 mg PO Q OTHER DAY Rx Instructions: ordered bid but pt takes every other day acetaminophen 325 mg Tablet 325 mg PO Q4 PRN (Reason: Fever Or Pain) Rx Instructions: use for temp>38C multivitamin Tablet 1 tab PO DAILY glipizide 5 mg Tablet Extended Release 24hr 5 mg PO QAM Discharge Orders: Discharge Order (Routine); Ordered 07/21/23 Ordered By: Gavin Plasencia Discharge Order- CHF (Routine); Ordered 07/21/23 Ordered By: Gavin Plasencia Krames/Other Patient Handouts: Managing Type 2 Diabetes Admission Data Admit Date/Time: 07/20/23 12:35 Attending Provider: Gavin Plasencia Admit Provider: Bryanna Davila Primary Care Provider: Muriel Chowdary Other Providers: Bryanna Davila
[2023-07-21] MEDS ORDERED: DIGOXIN 0.125 MG TAB PO SCH (16:00)
[2023-07-22] MEDS ORDERED: FERROUS SULFATE 325 MG TAB PO SCH (09:00)
== END 2023-07-21 16:40 | disposition home health service (06) | DRG 840 ==
LOC: ED 09:42 → SUATTDRO 12:35 → 1E 12:35

== ENCOUNTER 2023-08-22 03:05 | Inpatient (IN) ==
[2023-08-22] MEDS ORDERED: SODIUM CHLORIDE 0.9% 1,000 ML IV STA (03:31)
[2023-08-22] MEDS ORDERED: SODIUM CHLORIDE 0.9% 250 ML IV PRN ×3 (03:32→21:13)
--- OUTSIDE RECORDS SUMMARY | 2023-08-22 03:41 | External Medical Summary | Summary of Care ---
Author Name Unknown Organization [facility] Address [address] [place] [facility] [place] [address] Phone [phone] Care Team Providers Care Panel Beater Name Role Phone Zenobia Lyon MD Primary Care Provide r Reason for Visit * Reason Onset Date Comments [facility]: Maintenance 08/21/2023 Encounter Details Date Type Department Care Team (Late st Contact Info) Description 08/21/2023 Telephone [facility], [facility] [address] [facility] [place] [address] [facility], Nurse [address] [place] [address] [facility]: Maintenance Allergies Active Allergy Reactions Criticality Noted Date Comments James Inhibitors 09/10/2002 cough on prinivil Hydrocodone 09/05/2022 Family states AMS change when taken Prednisone 05/26/2011 Blisters in throat Sulfa Antibiotics 03/19/2001 dysurea documented as of this encounter (statuses as of 08/21/2023) Medications Medication Sig Dispensed Refills Start Date End Date Status OXYGENIndications:Hy poxia,Acute systolic CHF (congestive heart failure) (HCC) 2L/min via nasal cannula 24 hours continous, please provide portables as well 1 Each 0 07/30/2014 Active Latanoprost 0.005 % Ophthalmic Solution (Xalatan) Instill into both eyes 1 Drop in the morning. 2.5 mL 0 05/13/2022 Active Ventolin HFA 108 (90 Base) MCG/ACT Inhalation Aerosol SolutionIndications: Moderate persistent asthma without complication Inhale by mouth 2 Puffs 4 times a day . 18 g 0 05/13/2022 Active Magnesium Oxide 400 MG Oral TabletIndications:Tr ifascicular block,Coronary atherosclerosis one per day 34 Tablet 11 05/13/2022 Active Multivitamin Adult Oral Tablet Take by mouth daily . 0 Active OneTouch Ultra Blue In Vitro Strip (Glucose Blood)Indications:Ty pe 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 (HCC) Use to test blood sugar as needed 100 Strip 3 05/20/2022 Active OneTouch UltraSoft LancetsIndications:T ype 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 (HCC) Use to test blood sugar as needed 100 Each 3 05/20/2022 Active Acetaminophen 500 MG Oral TabletIndications:Ca ncer related pain Take 2 Tablets by mouth 2 times a day with morning and evening meals. 100 Tablet 0 10/28/2022 Active glipiZIDE ER 5 MG Oral Tablet Extended Release 24 Hour (glipiZIDE XL) Take 1 Tablet by mouth in the morning. 30 minutes before a meal.. 30 Tablet 5 03/22/2023 Active Ondansetron HCl 4 MG Oral Tablet Take 1 Tablet by mouth every 6 hours as needed for Nausea. 20 Tablet 0 05/15/2023 Active Fluticasone-Salmeter ol 250-50 MCG/ACT Inhalation Aerosol Powder Breath Activated (Wixela Inhub)Indications:As thma, moderate persistent Inhale 1 Puff by mouth in the morning and 1 Puff before bedtime. 3 Each 3 05/15/2023 Active MEDICAL INSTRUCTIONS 1) obtain a I can cause for 2 units packed red blood cells 2) transfuse 2 units of packed red blood cells according to the infusion centers policies 3) provide 650 mg of Tylenol approximately 30 minutes before starting the infusion Do not start before May 19, 2023. 1 Each 0 05/19/2023 Active Ferrous Sulfate 325 (65 Fe) MG Oral Tablet (Feosol)Indications: 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 TAKE ONE TABLET BY MOUTH TWICE DAILY 180 Tablet 3 06/07/2023 Active Digoxin 125 MCG Oral Tablet (Lanoxin) TAKE ONE TABLET 3 days per week 36 Tablet 3 06/21/2023 Active Pantoprazole Sodium 40 MG Oral Tablet Delayed Release (Protonix)Indication s:GERD (gastroesophageal reflux disease) Take 1 Tablet by mouth daily. 90 Tablet 1 06/21/2023 Active Clopidogrel Bisulfate 75 MG Oral Tablet (pLAVix)Indications: Atherosclerosis of [place] coronary artery of [place] heart without angina pectoris Take 1 Tablet by mouth in the morning. 90 Tablet 3 06/21/2023 Active Metoprolol Succinate ER 50 MG Oral Tablet Extended Release 24 Hour (toPROL XL)Indications:Tachy -lorna syndrome (HCC),Heart failure, systolic, due to CAD Take 1 Tablet by mouth in the morning. 90 Tablet 3 06/21/2023 Active Losartan Potassium 50 MG Oral Tablet (Cozaar)Indications: Heart failure, systolic, due to CAD Take 1 Tablet by mouth in the morning. 90 Tablet 3 06/21/2023 Active Potassium Chloride Emma ER 20 MEQ Oral Tablet Extended ReleaseIndications:H ypokalemia Take 1 Tablet by mouth in the morning. 90 Tablet 3 06/21/2023 Active Dutasteride 0.5 MG Oral Capsule (Avodart)Indications :BPH with obstruction/lower urinary tract symptoms Take 1 Capsule by mouth in the morning. 90 Capsule 1 06/21/2023 Active Methenamine Hippurate 1 GM Oral Tablet (Hiprex) Take 1 Tablet by mouth in the morning and 1 Tablet before bedtime. 180 Tablet 3 06/21/2023 Active Furosemide 40 MG Oral Tablet (Lasix)Indications:H ypertensive heart and kidney disease with chronic combined systolic and diastolic congestive heart failure and stage 3a chronic kidney disease (HCC) Take 1 Tablet by mouth in the morning. 126 Tablet 2 07/25/2023 Active documented as of this encounter (statuses as of 08/21/2023) Active Problems Patient Care Coordination No te Formatting of this note migh t be different from the original. Red flags: Decreased appetite, increased weakness ( noted before going to hospital, he was not getting out of bed for a couple of days and not eating much. 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 No dizziness. 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 O2 stable on room air -continue advair. BID and albuterol prn Other specified peripheral vascular diseases DISH (diffuse idiopathic skeletal hyperostosis) 05/25/2020 Skin lesion 03/06/2020 Chronic atrial fibrillation 12/04/2019 Primary open-angle glaucoma, left eye, mild stag e 12/04/2019 Chronic prostatitis with hematuria 06/26/2018 Hx of nonmelanoma skin cancer 01/02/2018 Overview: basal cell carcinoma (R anti-helix, R superior cheek, central upper back 07/23) Gastroesophageal reflux disease with esophagitis 01/25/2016 Last Assessment & Plan: Asymptomatic -continue pantoprazole Automatic implantable cardioverter-defibrillator in situ 03/25/2015 Overview: Biventricular Encounter for examination fo r normal comparison and control in clinical research program 03/25/2015 Overview: [employer] Product Surveillance Registry PI: Kylah Lilly IV, MD Diagnosis changed due to Research Module. Go to Snapshot for study details. Longstanding persistent atrial fibrillation 01/31 Last Assessment & Plan: Not on AC-? Possibly due to hx of GIB. 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 erectile dysfunction 08/19/2008 BPH without obstruction/lower urinary tract symp toms 04/24/2006 Last Assessment & Plan: Urinating without difficulty -Continue Dutesteride Elevated prostate specific antigen (PSA) 004 CORONARY ATHEROSCLEROSIS OF UNSPECIFIED TYPE OF VESSEL, [place] OR GRAFT Last Assessment & Plan: Stable. 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, unspecified severity, with psychotic disturbance 10/12/2022 01/24/2023 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 10/12/2022 10/30/2022 Stage 3 chronic kidney disease 10/12/2022 10/29/2022 Pathological fracture, left femur, initial encounter for fracture 10/12/2022 01/24/2023 Hypertensive heart disease w ith stage 2 chronic kidney disease 10/12/2022 11/16/2022 Overview: Per CKD protocol Unspecified dementia, unspec ified severity, without behavioral disturbance, psychotic disturbance, mood disturbance, and anxiety 10/04/2022 01/24/2023 Lytic bone lesion of femur 09/21/2022 0 01/24/2023 Impending pathological fracture 09/21/2022 01/24/2023 Overview: Impending pathological fracture of left subtrochanteric femur. E-coli UTI 09/21/2022 01/24/2023 Pain of left thigh 09/05/2022 Urinary tract infection without hematuria 05/30/2022 01/24/2023 Overview: [facility] to [facility] 04/20-04/29 urosepsis multi drug resistant E. Coli treated with ceftriaxone Last Assessment & Plan: Resolved -following with urology-put on methenamine for maintenance . Chronic diastolic CHF (conge stive heart failure) 05/04/2022 01/12/2023 Upper GI bleed 08/06/2021 05/30/2022 Gastric ulcer without hemorr saman or perforation 08/06/2021 01/24/2023 Duodenal ulcer 08/06/2021 01/24/2023 Chronic kidney disease, stage 3a 02/09/2021 01/24/2023 Overview: Per CKD protocol Hypertensive heart disease with heart failure 12/25/1905/1305/13/2022 Overview: more specific combo Chronic kidney disease, stage 3 unspecified 12/24/2020 01/14/2021 Hypertensive kidney disease with stage 3a chronic kidney disease 12/24/2020 05/13/2022 Overview: More specific combo on PL Basal cell carcinoma (BCC) of right cheek 02/13/2019 06/05/2019 Hypertensive heart and kidne y disease with chronic systolic congestive heart failure and stage 3 chronic kidney disease 06/26/2018 Overview: Per CKD protocol Acute posthemorrhagic anemia 06/26/2018 02/04/2019 Bladder spasm 06/26/2018 01/24/2023 Hearing loss 03/02/2016 11/24/2017 Hypokalemia 10/30/2015 11/24/2017 Biventricular implantable cardioverter-defibrillator in situ 09/08/201501/14 Heart failure, systolic, due to CAD 02/27/2015 10/29/2022 Last Assessment & Plan: Euvolemic today. Lasix dose adjusted in the hospital 04/22-now alternating 40 mg with 80 mg daily CKD (chronic kidney disease), stage III 01/30/2015 02/02/2016 Overview: GFR 57.9 Atrial fibrillation 03/15/2011 01/01/20 14 ADVANCE DIRECTIVE INFORMATION 02/08/2010 03/24/2017 Overview: Yes, Copy scanned at patient level in the electronic medical record.(Go to Action, Patient File to view) Patient aware they must notify their healthcare provider of changes. Intestinal disaccharidase deficiency 09/14/2009 06/11/2012 VERTEBRAL FRACTURE, PATHOLOGICAL, L1 09/09/2009 08/14/2017 Type 2 diabetes mellitus wit h hemoglobin A1c goal of less than 7.0% 07/30/2009 09/14/2009 Overview: Per Diabetes Taxonomy. ICD-10 update of inactive term Asthma with severity to be determined 02/10/2004 07/12/2011 Overview: ICD-10 update of inactive term Coronary atherosclerosis 09/10/200207/2012 HYPERTENSION NOS 08/02/2002 08/25/2009 Overview: Modified per HTN protocol #16. Sun-damaged skin 07/19/2002 01/02/2018 SEBORRHEIC KERATOSIS Lt. glenn ek & Lt. leg ; Rt. sikh 07/0207/18/2002 07/15/2015 Dyslipidemia, goal to be determined 09/10/2009 Overview: Per Lipid Taxonomy. Type 2 diabetes mellitus wit h hemoglobin A1c goal of less than 7.0% 07/30/2009 Overview: Per Diabetes Taxonomy. ICD-10 update of inactive term Compression fx, thoracic spine 08/14/2017 Overview: T12 CKD (chronic kidney disease), stage III 02/22/2018 Moderate persistent asthma w ithout complication 01/14/2019 Hypertensive kidney disease with CKD stage III 06/11/2019 documented as of this encounter (statuses as of 08/21/2023) Immunizations Name Administration Dates Next Due COVID-19 mRNA, LNP-s, No Pre serve, 2-Dose Series (Moderna) 08/24/2021,12/07/2020,11/09/2020 COVID-19, MRNA-LNP, 23-24, P F, 30 MCG/0.3 mL, 12 YRS AND ABOVE, IM (Understory-Comirnat) 07/19/2023 Covid-19, Mrna, Lnp-s, Pf, B ivalent, 30 Mcg, IM, 12 yrs and above (Pfizer) 08/29/2022 Pneumococcal Conjugate Vacc, 13 Valent (Prevnar) 01/30/2015 Pneumococcal Polysaccharide PPV23 (Pneumovax) 01/22/2019,08/22/2006 SEASONAL INFLUENZA, PF, 6 M & Above, IM , (FLULAVAL or FLUZONE) 06/26/2018,06/28/2017 Season Influenza, Quad, PF, Adjuvanted, 65+ Yrs, IM (FLUAD) 06/22/2020 Seasonal Influenza, Quadriva lent Hd (Fluzone Hd) 06/22/2023,07/22/2022,06/17/2021 Seasonal Influenza, Quadriva lent, No Preserve, IM 07/26/2016,07/18/2015 Seasonal Influenza, Split, I IV3, With Preserve, Inj 06/27/2014,07/02/2013,06/06/2012,07/12,07/16/2010,06/16/2009,08/19/2008 ,07/26/2007,07/12/2006 Seasonal Influenza, Trivalen t, Adjuvanted, 65+ yrs 06/19/2019 TDAP (age 10 and older)(Boostrix) 01/11/2013 Varicella Zoster Vaccine (Adult) 02/10/2012 documented as of this encounter Social History Tobacco Use Types Packs/Day Years Used Date Smoking Tobacco: Former Cigarettes 1 20 Q uit: 10/02/1969 Smokeless Tobacco: Never Comments:1969 Alcohol Use Standard Drinks/Week Comments Not Currently 0 (1 standard drink = 0.6 oz pur e alcohol) rare PHQ-2 Answer Date Recorded PHQ Adult Total Score 0 01/24/2023 Hunger Vital Sign Answer Date Recorded Within the past 12 months, y ou worried that your food would run out before you got the money to buy more. Patient refused Within the past 12 months, t he food you bought just didn't last and you didn't have money to get more. Patient refused Sex and Gender Information Value Date Recorded Sex Assigned at Male 01/24/2023 3:56 PM EDT Gender Identity Male 01/24/2023 3:56 PM EDT Sexual Orientation Straight 01/24/2023 3: 56 PM EDT Job Start Date Occupation Industry Not on file Not on file Not on file documented as of this encounter Functional Status Functional Status Response Date of Assess ment Are you deaf or do you have serious difficulty h earing? No 09/05/2022 Are you blind or do you have serious difficulty seeing, even when wearing glasses? No 09/05/2022 Do you have serious difficul ty walking or climbing stairs? (5 years old or older) No 09/15/2022 Do you have difficulty dress ing or bathing? (5 years old or older) Yes 09/05/2022 Because of a physical, menta l, or emotional condition, do you have difficulty doing errands alone such as visiting a doctor s office or shopping? (15 years old or older) Yes 09/05/20 22 Cognitive Status Response Date of Assessm ent Because of a physical, menta l, or emotional condition, do you have serious difficulty concentrating, remembering, or making decisions? (5 years old or older) No 09/05/2022 documented as of this encounter Miscellaneous Notes * Telephone Encounter - Simran Murillo RN - 08/21/2023 4:32 PM EST As of 4:30pm 08/21/23 labs remain in process Message routed to intake pool to [facility] to monitor results poss need for transfusion depending on labs Once labs result please route to [facility] and Dr Pietro Sykes hem/onc If tranfusion is desired will need appt at hem/onc clinic Simran Murillo RN, BSN [facility] navy airspace officerFine Arts Model documented in this encounter Plan of Treatment Upcoming Encounters Date Type Department Care Team (Late st Contact Info) Description 08/22/2023 9:00 AM EST Scheduled Telephone [facility], [facility] [address] [place] [address] Coordinator, [facility] [address] [facility] [place] [address] 08/29/2023 3:30 PM EST Office Visit Cardiology [address] [place] [address] Chris Choudhury PA-C [address] [place] [address] 09/06/2023 9:10 AM EST Laboratory Lab [facility] [address] [place] [address] [facility], [facility] [address], [place] [id number] 09/20/2023 9:10 AM EST Laboratory Lab [facility] [address] [place] [address] [facility], [facility] [address] [place] [address] 09/29/2023 10:00 AM EST [facility] [address] [facility] [place] [address] Lila Brownlee, SANKET [address] [place] [address] 10/04/2023 9:10 AM EST Laboratory Lab [facility] [address] [place] [address] [facility], [facility] [address] [place] [address] 10/18/2023 9:10 AM EST Laboratory Lab [facility] [address] [place] [address] [facility], [facility] [address] [place] [address] 10/19/2023 4:20 PM EST Office Visit [address] [phone] Zenobia Lyon MD [address] [place] [address] [place] [address] 11/01/2023 9:10 AM EST Laboratory Lab [facility] [address] [place] [address] [facility], [facility] [address] [place] [address] 11/15/2023 9:10 AM EST Laboratory Lab [facility] [address] [place] [address] [facility], [facility] [address] [place] [address] 11/29/2023 9:10 AM EST Laboratory Lab Mobile [facility] [address] [place] [address] [facility], [facility] [address] [place] [address] 12/13/2023 9:10 AM EDT Laboratory Lab Mobile [facility] [address] [place] [address] [facility], [facility] [address] [place] [address] 01/26/2024 4:20 PM EDT Office Visit [address] [phone] Zenobia Lyon MD [address] [place] [address] [place] [address] Scheduled Procedures Name Priority Associated Diagnoses Date/Ti me COLONOSCOPY FLEXIBLE PROXIMA L DIAGNOSTIC Recall History of colonic polyps Health Maintenance Due Date Last Done Comments Alpha-1 Antitrypsin 1953 Hepatitis B (1 of 3 - Risk 3-dose series) 1994 DTaP,Tdap,and Td Vaccines (2 - Td or Tdap) 01/11/2023 01/11/2013, 04/01/2003, 04/01/2003 HbA1c 07/27/2023 01/25/2023, 1203/2022, 01/14/2022, Additional history exists O2 ASSESSMENT COMPLETED IN PAST YEAR FOR COPD 09/06/2023 09/06/2022 Depression Screening 01/25/2024 01/24/2023 DIG LEVEL FOR MEDICATION MONITORING YEARLY 01/26/2024 01/25/2023, 04/17/2021, 03/09/2020, Additional history exists Albumin/Creatinine Ratio 01/27/2024 023, 01/14/2022, 08/14/2017, Additional history exists Diabetic Eye Exam 07/19/2024 07/19/2023 (Do ne elsewhere), 10/28/2021, 11/02/2020, Additional history exists Diabetic Foot Exam 07/19/2024 07/19/2023, 0 01/14/2022, 12/24/2020, Additional history exists CKD PHOS USE SMARTSET 00514 07/25/202407/03, 09/07/2022, 09/05/2022, Additional history exists CKD HGB USE SMARTSET 44297 08/09/202408/09, 08/09/2023, 07/25/2023, Additional history exists COLONOSCOPY-EVERY 5 YRS AGES 18-100 04/25/2028 04/25/2023, 03/26/2020, 07/06/2010, Additional history exists Zoster Vaccines Discontinued 02/10/2012 DXA Scan Discontinued 01/22/2016, 09/02, 09/16/2011, Additional history exists Pneumococcal Vaccine: 65+ Years Completed 01/22/2019, 01/30/2015, 08/22/2006 Influenza Vaccine (FLU shot) Completed 06/22/2023, 07/22/2022, 06/17/2021, Additional history exists COVID-19 Vaccine Completed 07/19/2023, , 04/27/2022, Additional history exists GARDASIL-HPV IMMUNIZATION SERIES Aged Out No longer eligible based on patient's age to complete this topic MENINGOCOCCAL (MENACTRA/MENVEO) Aged Out No longer eligible based on patient's age to complete this topic documented as of this encounter Medical Devices Implanted Type Area Rug Receiving Clerk Device Identifier Shelf Expiration Date Model / Serial / Lot Screw T2 Alpha Lock 5x47.5mm - [id number] Implanted:Qty: 1 on 09/06/2022 by Sean Silva MD at [facility] Left: Leg Upper RICHELLE : TRAUMA 06/01/2032 [id number] / / [id number] documented as of this encounter Advance Directives Documents on File Type Date Recorded Patient Clinic Administrator Expl anation POLST 10/17/2022 [place] DERS FOR LIFE-SUSTAINING TREATMENT POLST 09/10/2022 [place] DERS FOR LIFE-SUSTAINING TREATMENT Latest Code Status on File Code Status Date Activated Date Inactivated Comments No Code 09/10/2022 9:05 AM 09/21/2022 7:29 PM Thi s order reflects the patients wishes and were consensually agreed upon. Question Answer Comments Discussion of Advance Directives occurred with: Family Code Status History Code Status Date Activated Date Inactivated Comments Full Code 09/06/2022 7:56 PM 09/10/2022 9:04 AM This order reflects the patients wishes and were consensually agreed upon. Question Answer Comments Discussion of Advance Directives occurred with: Not Discussed due to patient's condition Full Code 09/05/2022 8:45 PM 09/06/2022 7:56 PM This order reflects the patients wishes and were consensually agreed upon. Question Answer Comments Discussion of Advance Directives occurred with: Patient/Family Healthcare Agents on File Name Relationship Healthcare Agent Relationship Communication Remedios tello Spouse Health Care Agen t (per Health Care Power of Director Of Home Care Hospice document) Reji Tello Dotts Adult Child First Alterna te Health Care Agent (per Health Care Power of Director Of Home Care Hospice document) Bowen Tello Adult Child First Alternate Health Care Agent (per Health Care Power of Director Of Home Care Hospice document) Care Teams Panel Beater Relationship Specialty Start Date End Date Zenobia Lyon MD [address] [place] [address] [place] [phone] PCP - General Family Medicine 05/22/23 documented as of this encounter
--- OUTSIDE RECORDS SUMMARY | 2023-08-22 03:41 | External Medical Summary | Summary of Care ---
Author Name Unknown Organization [facility] Address [address] [place] [facility] [place] [place] [address] Phone [phone] Care Team Providers Care Defense Attorney Name Role Phone Zenobia Lyon MD Primary Care Provide r Reason for Visit * Reason Onset Date Comments [facility]: Maintenance 08/21/2023 Encounter Details Date Type Department Care Team (Late st Contact Info) Description 08/21/2023 Telephone [facility], [facility] [address] [facility] [place] [address] [facility], Nurse [address] [place] [address] [facility]: Maintenance Allergies Active Allergy [...] 75 MG Oral Tablet (pLAVix)Indications: Atherosclerosis of [place] coronary artery of [place] heart without angina pectoris Take 1 Tablet [...] control in clinical research program 03/25/2015 Overview: [employer] Product Surveillance Registry PI: Kylah Lilly IV, [...] CORONARY ATHEROSCLEROSIS OF UNSPECIFIED TYPE OF VESSEL, [place] OR GRAFT Last Assessment & Plan: Stable. [...] without hematuria 05/30/2022 01/24/2023 Overview: Xavier to [facility] 04/20-04/29 urosepsis multi drug resistant E. [...] glenn ek & Lt. leg ; Rt. sabianist 07/0207/18/2002 07/15/2015 Dyslipidemia, goal to be determined [...] MCG/0.3 mL, 12 YRS AND ABOVE, IM (Prediculous-Comirnat) 07/19/2023 Covid-19, Mrna, Lnp-s, Pf, B ivalent, 30 Mcg, IM, 12 yrs and above (Pfizer) 08/29/2022 Influenza, Whole Virus 07/17/2001,09/20/2000 Pneumococcal Conjugate Vacc, 13 Valent (Prevnar) 01/30/2015 Pneumococcal Polysaccharide PPV23 (Pneumovax) 01/22/2019,08/22/2006 SEASONAL INFLUENZA, PF, 6 M & Above, IM , (FLULAVAL or FLUZONE) 06/26/2018,06/28/2017 Season Influenza, Quad, PF, Adjuvanted, 65+ Yrs, IM (FLUAD) 06/22/2020 Seasonal Influenza, Quadriva lent Hd (Fluzone Hd) 06/22/2023,07/22/2022,06/17/2021 Seasonal Influenza, Quadriva lent, No Preserve, IM 07/26/2016,07/18/2015 Seasonal Influenza, Split, I IV3, With Preserve, Inj 06/27/2014,07/02/2013,06/06/2012,07/02,07/16/2010,06/16/2009,08/19/20 08,07/26/2007,07/12/2006,07/26/2005,1 ,08/05/2003,07/17/2002 Seasonal Influenza, Trivalen t, Adjuvanted, 65+ yrs 06/19/2019 TD - Tetanus/Diptheria (ADULT) 04/01/2003 TDAP (age 10 and older)(Boostrix) 01/11/2013 Varicella [...] encounter Miscellaneous Notes * Telephone Encounter - Carly Cano RN - 08/21/2023 5:56 PM EST Checked for blood work results several times. As of 5:57 pm they are not released yet, in process. Carly Cano re recording mixerUndercoater [facility] * Telephone Encounter - Simran Murillo RN - 08/21/2023 4:32 PM EST As of 4:30pm 08/21/23 labs remain in process Message routed to intake pool to cont to monitor results poss need for transfusion depending on labs Once labs result please route to [facility] and Dr Pietro Sykes hem/onc If tranfusion is desired will need appt at hem/onc clinic Simran Murillo RN, BSN [facility] re recording mixerUndercoater documented in this encounter Plan of Treatment Upcoming Encounters Date Type Department Care Team (Late st Contact Info) Description 08/22/2023 9:00 AM EST Scheduled Telephone [facility], [facility] [address] [place] [address] Coordinator, [facility] [address] [place] [address] 08/29/2023 3:30 PM EST Office Visit Cardiology [address] [place] [phone] Chris Choudhury PA-C [address] [place] [address] 09/06/2023 9:10 AM EST Laboratory Lab Mobile Phlebotomy [facility] [place] [address] [place] [address] Gm, Gml Mobile Home Draw [address] [place] [address] 09/20/2023 9:10 AM EST Laboratory Lab Mobile Phlebotomy [facility] [place] [address] [place] [address] [facility], Gml Mobile Home Draw [address] [place] [address] 09/29/2023 10:00 AM EST Home Visit [facility] [place] [facility] [address] [place] [address] Lila Brownlee RN [address] [place] [address] 10/04/2023 9:10 AM EST Laboratory Lab Mobile Phlebotomy [facility] [place] [address] [place] [address] [facility], Gm Mobile Home Draw [address] [place] [address] 10/18/2023 9:10 AM EST Laboratory Lab Mobile Phlebotomy [facility] [place] [address] [place] [address] [facility], Gm Mobile Home Draw [address] [place] [address] 10/19/2023 4:20 PM EST Office Visit Family Medicine [address] [place] [phone] Zenobia Lyon MD [address] [place] [address] [place] [address] 11/01/2023 9:10 AM EST Laboratory Lab Mobile Phlebotomy [facility] [place] [address] [place] [address] Gmc, Gml Mobile Home Draw [address] [place] [address] 11/15/2023 9:10 AM EST Laboratory Lab Mobile Phlebotomy [facility] [place] [address] [place] [address] Gmc, Gml Mobile Home Draw [address] [place] [address] 11/29/2023 9:10 AM EST Laboratory Lab Mobile Phlebotomy [facility] [place] [address] [place] [address] Gmc, Gml Mobile Home Draw [address] [place] [address] 12/13/2023 9:10 AM EDT Laboratory Lab Mobile Phlebotomy [facility] [place] [address] [place] [address] Gm, Gml Mobile Home Draw [address] [place] [address] 01/26/2024 4:20 PM EDT Office Visit Family Medicine [address] [place] [phone] Zenobia Lyon MD [address] [place] [address] [place] [phone] Scheduled Procedures Name Priority Associated Diagnoses Date/Ti me COLONOSCOPY FLEXIBLE PROXIMA L DIAGNOSTIC Recall History of colonic polyps Health Maintenance Due Date Last Done Comments Alpha-1 Antitrypsin 1952 Hepatitis B (1 of 3 - Risk 3-dose series) 1994 DTaP,Tdap,and Td Vaccines (2 - Td or Tdap) 01/11/2023 01/11/2013, 04/01/2003, 04/01/2003 HbA1c 07/27/2023 01/25/2023, 12/03/2022, 01/14/2022, Additional history exists O2 ASSESSMENT COMPLETED [...] Additional history exists CKD PHOS USE SMARTSET 12181 07/25/202407/03, 09/07/2022, 09/05/2022, Additional history exists CKD HGB USE SMARTSET 75725 08/09/202408/09, 08/09/2023, 07/25/2023, Additional history exists COLONOSCOPY-EVERY 5 YRS AGES 18-100 04/25/2028 04/25/2023, 03/26/2020, 07/06/2010, Additional history exists Zoster Vaccines Discontinued 02/10/2012 DXA Scan Discontinued 01/22/2016, 1203/2013, 09/16/2011, Additional history exists Pneumococcal Vaccine: 65+ [...] this encounter Medical Devices Implanted Type Area Helper Shear Operator Device Identifier Shelf Expiration Date Model / Serial / Lot Screw T2 Alpha Lock 5x47.5mm - [id number] Implanted:Qty: 1 on 09/06/2022 by Sean Silva MD at OR [facility] [place] Left: Leg Upper RICHELLE : TRAUMA 06/01/2032 [id number] / / [id number] documented as of this encounter Advance Directives Documents on File Type Date Recorded Patient Lithograph Operator Expl anation POLST 10/17/2022 [place] OR DERS FOR LIFE-SUSTAINING TREATMENT POLST 09/10/2022 [place] OR DERS FOR LIFE-SUSTAINING TREATMENT Latest Code [...] File Name Relationship Healthcare Agent Relationship Communication Remedois tello Spouse Health Care Agen t (per Health Care Power of Adult Manager document) Reji Tello Dotts Adult Child First Alterna te Health Care Agent (per Health Care Power of Adult Manager document) Bowen Tello Adult Child First Alternate Health Care Agent (per Health Care Power of Adult Manager document) Care Teams Defense Attorney Relationship Specialty Start Date End Date Zenobia Lyon MD [address] [place] [address] [place] [phone] PCP - General Family Medicine 05/22/23 documented as of this encounter
--- OUTSIDE RECORDS SUMMARY | 2023-08-22 03:41 | External Medical Summary | Summary of Care ---
Author Name Unknown Organization [facility] Address [address] [place] [facility] [place] [address] Phone [phone] Care Team Providers Care Counter Stitcher Name Role Phone Zenobia Lyon MD Primary Care Provide r Reason for Visit * Reason Onset Date Comments [facility]: Maintenance 08/21/2023 Encounter Details Date Type Department Care Team (Late st Contact Info) Description 08/21/2023 Telephone [facility], [facility] [address] [facility] [place] [address] [facility], Nurse [address] [place] [address] [facility]: Maintenance Allergies Active Allergy [...] 75 MG Oral Tablet (pLAVix)Indications: Atherosclerosis of [place] coronary artery of [place] heart without angina pectoris Take 1 Tablet [...] control in clinical research program 03/25/2015 Overview: [employer] Product Surveillance Registry PI: Kylah Lilly IV, [...] CORONARY ATHEROSCLEROSIS OF UNSPECIFIED TYPE OF VESSEL, [place] OR GRAFT Last Assessment & Plan: Stable. [...] without hematuria 05/30/2022 01/24/2023 Overview: Xavier to [facility] 04/20-04/29 urosepsis multi drug resistant E. Coli [...] glenn ek & Lt. leg ; Rt. anabaptist 07/0207/18/2002 07/15/2015 Dyslipidemia, goal to be determined [...] MCG/0.3 mL, 12 YRS AND ABOVE, IM (Aptana-Comirnat) 07/19/2023 Covid-19, Mrna, Lnp-s, Pf, B ivalent, [...] not released yet, in process. Carly Cano job setterRevenue Accounting Manager [facility] * Telephone Encounter - iSmran Murillo RN - 08/21/2023 4:32 PM EST As of 4:30pm 08/21/23 labs remain in process Message routed to intake pool to cont to monitor results poss need for transfusion depending on labs Once labs result please route to [facility] and Dr Pietro Sykes hem/onc If tranfusion is desired will need appt at hem/onc clinic Simran Murillo RN, BSN [facility] job setterRevenue Accounting Manager documented in this encounter Plan of Treatment Upcoming Encounters Date Type Department Care Team (Late st Contact Info) Description 08/22/2023 9:00 AM EST Scheduled Telephone [facility], [facility] [address] [place] [address] Coordinator, [facility] [address] [place] [address] 08/29/2023 3:30 PM EST Office Visit Cardiology [address] [place] [phone] Chris Choudhury PA-C [address] [place] [address] 09/06/2023 9:10 AM EST Laboratory Lab Mobile Phlebotomy [facility] [address] [place] [address] Gm, Gml Mobile Home Draw [address] [place] [address] 09/20/2023 9:10 AM EST Laboratory Lab Mobile Phlebotomy [facility] [address] [place] [address] [facility], Gml Mobile Home Draw [address] [place] [address] 09/29/2023 10:00 AM EST Home Visit [facility] [address] [place] [address] Lila Brownlee RN [address] [place] [address] 10/04/2023 9:10 AM EST Laboratory Lab Mobile Phlebotomy [facility] [address] [place] [address] [facility], Gm Mobile Home Draw [address] [place] [address] 10/18/2023 9:10 AM EST Laboratory Lab Mobile Phlebotomy [facility] [address] [place] [address] [facility], Gm Mobile Home Draw [address] [place] [address] 10/19/2023 4:20 PM EST Office Visit Family Medicine [address] [place] [phone] Zenobia Lyon MD [address] [place] [address] [place] [address] 11/01/2023 9:10 AM EST Laboratory Lab Mobile Phlebotomy [facility] [address] [place] [address] Gmc, Gml Mobile Home Draw [address] [place] [address] 11/15/2023 9:10 AM EST Laboratory Lab Mobile Phlebotomy [facility] [address] [place] [address] Gmc, Gml Mobile Home Draw [address] [place] [address] 11/29/2023 9:10 AM EST Laboratory Lab Mobile Phlebotomy [facility] [address] [place] [address] Gmc, Gml Mobile Home Draw [address] [place] [address] 12/13/2023 9:10 AM EDT Laboratory Lab Mobile Phlebotomy [facility] [address] [place] [address] Gm, Gml Mobile Home Draw [address] [place] [address] 01/26/2024 4:20 PM EDT Office Visit Family Medicine [address] [place] [phone] Zenobia Lyon MD [address] [place] [address] [place] [address] Scheduled Procedures Name Priority Associated Diagnoses Date/Ti [...] Additional history exists CKD PHOS USE SMARTSET 50043 07/25/202407/03, 09/07/2022, 09/05/2022, Additional history exists CKD HGB USE SMARTSET 31577 08/09/202408/09, 08/09/2023, 07/25/2023, Additional history exists COLONOSCOPY-EVERY [...] this encounter Medical Devices Implanted Type Area Copy Camera Operator Device Identifier Shelf Expiration Date Model / Serial / Lot Screw T2 Alpha Lock 5x47.5mm - [id number] Implanted:Qty: 1 on 09/06/2022 by Sean Silva MD at OR [facility] Left: Leg Upper RICHELLE : TRAUMA 06/01/2032 [id number] / / [id number] documented as of this encounter Advance Directives Documents on File Type Date Recorded 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 POLST 10/17/2022 [place] OR DERS FOR LIFE-SUSTAINING TREATMENT POLST 09/10/2022 [place] OR DERS FOR LIFE-SUSTAINING TREATMENT Latest Code [...] Agen t (per Health Care Power of Environmental Lawyer document) Reji Tello Dotts Adult Child First Alterna te Health Care Agent (per Health Care Power of Environmental Lawyer document) Bowen Tello Adult Child First Alternate Health Care Agent (per Health Care Power of Environmental Lawyer document) Care Teams Counter Stitcher Relationship Specialty Start Date End Date Zenobia Lyon MD [address] [place] [address] [place] [phone] PCP - General Family Medicine 05/22/23 documented as of this encounter
--- OUTSIDE RECORDS SUMMARY | 2023-08-22 03:42 | External Medical Summary | Summary of Care ---
Author Name Unknown Organization [facility] Address [address] [place] [facility] [place] [address] Phone [phone] Care Team Providers Care Therapeutic Recreation Director Name Role Phone Zenobia Lyon MD Primary Care Provide r Reason for Visit * Reason Onset Date Comments [facility]: Acute 08/20/2023 Encounter Details Date Type Department Care Team (Late st Contact Info) Description 08/20/2023 1:30 PM EST Scheduled Telephone [facility], [facility] [address] [facility] [place] [address] [facility], Nurse [facility] 132 [facility] [place] [address] Allergies Active Allergy Reactions Criticality Noted Date Comments James Inhibitors 09/10/2002 cough on prinivil Hydrocodone 09/05/2022 Family states AMS change when taken Prednisone 05/26/2011 Blisters in throat Sulfa Antibiotics 03/19/2001 dysurea documented as of this encounter (statuses as of 08/20/2023) Medications Medication Sig Dispensed Refills Start Date [...] test blood sugar as needed 100 Each 05/20/2022 Active Acetaminophen 500 MG Oral TabletIndications:Ca [...] 75 MG Oral Tablet (pLAVix)Indications: Atherosclerosis of [place] coronary artery of [place] heart without angina pectoris Take 1 Tablet [...] as of this encounter (statuses as of 08/20/2023) Active Problems Patient Care Coordination No te [...] control in clinical research program 03/25/2015 Overview: [email or web address] Product Surveillance Registry PI: Kylah Lilly IV, [...] CORONARY ATHEROSCLEROSIS OF UNSPECIFIED TYPE OF VESSEL, CITIZEN [place] OR GRAFT Last Assessment & Plan: Stable. 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 Coli [...] protocol Hypertensive heart disease with heart failure 12/25/192022 Overview: more specific combo Chronic kidney disease, [...] as of this encounter (statuses as of 08/20/2023) Immunizations Name Administration Dates Next Due COVID-19 mRNA, LNP-s, No Pre serve, 2-Dose Series (Moderna) 08/24/2021,12/07/2020,11/09/2020 COVID-19, MRNA-LNP, 23-24, P F, 30 MCG/0.3 mL, 12 YRS AND ABOVE, IM (Yantra-Comirnat) 07/19/2023 Covid-19, Mrna, Lnp-s, Pf, B ivalent, [...] (15 years old or older) Yes 09/05/20 Cognitive Status Response Date of Assessm ent Because of a physical, menta l, or emotional condition, do you have serious difficulty concentrating, remembering, or making decisions? (5 years old or older) No 09/05/2022 documented as of this encounter Miscellaneous Notes * Telephone Encounter - Deb Coombs RN - 08/20/2023 1:16 PM EST [facility] Telephonic Nurse Follow-Up Call [facility] Subprogram: Primary Care at Home Follow Up Call Type: Same-day acute follow up 1436:PC to Spouse Remedios Spoke to Spouse. Patient identified by full name and date of Acute issue requiring follow-up call: Other: weakness Objective: 07/25/2023 3:44 PM 07/23/2023 12:16 PM 07/19/2023 2:56 PM 06/22/2023 1:43 PM 06/15/2023 10:42 PM VITALS ACROSS ENCOUNTERS BP 122/60 154/64 120/60 158/68 134/68 Pulse 70 76 72 78 74 Weight 90.3 kg 90.7 kg BMI 27.75 kg/m2 27.89 kg/m2 Lab Results Component Value Date PROTEIN - [facility] 7.9 07/25/2023 WBC AUTO - [facility] 3.71 (L) 08/09/2023 Lab Results Component Value Date WBC AUTO - [facility] 3.71 (L) 08/09/2023 HGB - [facility] 8.1 (L) 08/09/2023 PLATELET AUTO - [facility] 200 08/09/2023 Lab Results Component Value Date SODIUM - [facility] 141 07/25/2023 POTASSIUM - [facility] 4.2 07/25/2023 MAGNESIUM - [facility] 2.2 07/25/2023 CO2 - [facility] 24 07/25/2023 CREATININE - [facility] 1.4 (H) 07/25/2023 ESTIMATED GLOMERULAR FILTRATION RATE - [facility] 50 (L) 07/25/2023 ALBUMIN - [facility] 3.0 (L) 07/25/2023 AST - [facility] 11 07/25/2023 ALT - [facility] 12 07/25/2023 ALKALINE PHOSPHATASE - [facility] 37 07/25/2023 No results found for: "PRO BNP", "LEFT VENTRICULAR EJECTION FRACTION" Remote Patient Monitoring: NONE Oxygen Needs: NO CHANGE from baseline supplemental oxygen needs 2 LPM DME Needs: NO DME needs identified Medications: No medication or dose adjustments made during acute episode Subjective: Condition Status: Worsening of symptoms Current Concerns: Spouse reporting increased weakness [facility] Disposition: Routed to [facility] and/or [facility] [place] Care Team for further advice And [facility] Palliative orthodontist vice president Triage had Dr. Sykes from Hem/Onc paged to talk to spouse - he is requesting labs to be moved up from 08/23/23 to tomorrow 08/21/23. Triage is attempting contact with mobile lab to see if able to facilitate this request. If not suggested to go to [facility] for labs early in AM - that way if transfusion is needed - the process can be started sooner. Will place on for PC f/u early 08/21/23 AM Spouse is aware and agreeable to above plan Future Visits Scheduled: Future Appointments-next 60 days Date/Time Provider Specialty Dept Phone 08/20/2023 1:30 PM [facility], Nurse [facility] Eber [facility] [phone] 08/23/2023 9:10 AM [facility] Laboratory Processing [phone] 08/29/2023 3:30 PM (Arrive by 3:15 PM) Chris Choudhury PA-C Cardiology [phone] 09/06/2023 9:10 AM c, [facility] Draw Laboratory Processing [phone] 09/20/2023 9:10 AM [facility], [facility] Laboratory Processing [phone] 10/04/2023 9:10 AM [facility] Laboratory Processing [phone] 10/18/2023 9:10 AM [facility] Draw Laboratory Processing [phone] 10/19/2023 4:20 PM (Arrive by 4:05 PM) Zenobia Lyon MD Family Medicine [phone] 11/01/2023 9:10 AM [facility] Laboratory Processing [phone] 11/15/2023 9:10 AM [facility] Draw Laboratory Processing [phone] 11/29/2023 9:10 AM [facility] Draw Laboratory Processing [phone] 12/13/2023 9:10 AM [facility] Draw Laboratory Processing [phone] 01/26/2024 4:20 PM (Arrive by 4:05 PM) Zenobia Lyon MD Family Medicine [phone] Merced Coombs RN [facility]/ [facility] Toll Free Number: documented in this encounter Plan of Treatment Upcoming Encounters Date Type Department Care Team (Late st Contact Info) Description 08/21/2023 9:00 AM EST Scheduled Telephone [facility], [facility] [address] [facility] [place] [address] Coordinator, [facility] [address] [facility] [place] [address] 08/23/2023 9:10 AM EST Laboratory Lab Mobile Phlebotomy [facility] [address] [facility] [place] [address] [facility], [facility] Home Draw [address] [facility] [place] [address] 08/29/2023 3:30 PM EST Office Visit Cardiology [address] [place] [address] Chris Choudhury PA-C [address] [place] [address] 09/06/2023 9:10 AM EST Laboratory Lab [facility]bot[facility] [address] [facility] [address] [facility] Draw [address] [place] [address] 09/20/2023 9:10 AM EST Laboratory Lab Mobile Phlebotomy [facility] [address] [place] [address] [facility], [facility] Draw [address] [place] [address] 10/04/2023 9:10 AM EST Laboratory Lab Mobile Phlebotomy [facility] [address] [place] [address] [facility], [facility] Draw [address] [place] [address] 10/18/2023 9:10 AM EST Laboratory Lab Mobile Phlebotomy [facility] [address] [place] [address] [facility], [facility] Draw [address] [place] [address] 10/19/2023 4:20 PM EST Office Visit Family [address] [address] Zenobia Lyon MD [address] [place] [address] [place] [address] 11/01/2023 9:10 AM EST Laboratory Lab Mobile Phlebotomy [facility] [address] [place] [address] [facility], [facility] Home Draw [address] [place] [address] 11/15/2023 9:10 AM EST Laboratory Lab Mobile Phlebotomy [facility] [address] [place] [address] [facility], [facility] Home Draw [address] [place] [address] 11/29/2023 9:10 AM EST Laboratory Lab Mobile Phlebotomy [facility] [address] [place] [address] [facility] Mobile Home Draw [address] [place] [address] 12/13/2023 9:10 AM EDT Laboratory Lab Mobile Phlebotomy [facility] [address] [place] [address] [facility] Mobile Home Draw [address] [place] [address] 01/26/2024 4:20 PM EDT Office Visit [address] [place] [address] Zenobia Lyon MD [address] [place] [address] [place] [address] Scheduled Procedures Name Priority Associated Diagnoses Date/Ti [...] Additional history exists CKD PHOS USE SMARTSET 66671 07/25/202407/03, 09/07/2022, 09/05/2022, Additional history exists CKD HGB USE SMARTSET 69580 08/09/202408/09, 08/09/2023, 07/25/2023, Additional history exists COLONOSCOPY-EVERY [...] this encounter Medical Devices Implanted Type Area Cabin Service Agent Device Identifier Shelf Expiration Date Model / Serial / Lot Screw T2 Alpha Lock 5x47.5mm - [id number] Implanted:Qty: 1 on 09/06/2022 by Sean Silva MD at [facility] Left: Leg Upper RICHELLE : TRAUMA 06/01/2032 [id number] / / [id number] documented as of this encounter Advance Directives Documents on File Type Date Recorded 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 Chrome 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 Expl anation POLST 10/17/2022 [place] OR DERS FOR LIFE-SUSTAINING TREATMENT POLST 09/10/2022 [place] OR DERS FOR LIFE-SUSTAINING TREATMENT Latest Code [...] Agen t (per Health Care Power of Wrapper Sheeter document) Reji Tello Dotts Adult Child First Alterna te Health Care Agent (per Health Care Power of Wrapper Sheeter document) Bowen Tello Adult Child First Alternate Health Care Agent (per Health Care Power of Wrapper Sheeter document) Care Teams Therapeutic Recreation Director Relationship Specialty Start Date End Date Zenobia Lyon MD [address] [place] [address] [place] [address] PCP - General Family Medicine 05/22/23 documented as of this encounter
--- OUTSIDE RECORDS SUMMARY | 2023-08-22 03:42 | External Medical Summary | Summary of Care ---
Author Name Unknown Organization [facility] Address [address] [place] [facility] [place] [address] Phone [phone] Care Team Providers Care Professor Of History Name Role Phone Zenobia Lyon MD Primary Care Provide r Reason for Visit * Reason Onset Date Comments [facility]: Maintenance 08/21/2023 Encounter Details Date Type Department Care Team (Late st Contact Info) Description 08/21/2023 Telephone [facility], [facility] 132 [facility] [place] [address] [facility], Nurse [address] [place] [address] [facility]: Maintenance Allergies Active Allergy [...] 75 MG Oral Tablet (pLAVix)Indications: Atherosclerosis of [place] coronary artery of [place] heart without angina pectoris Take 1 Tablet [...] control in clinical research program 03/25/2015 Overview: [employer] Product Surveillance Registry PI: Kylah Lilly IV, [...] CORONARY ATHEROSCLEROSIS OF UNSPECIFIED TYPE OF VESSEL, [place] OR GRAFT Last Assessment & Plan: Stable. [...] without hematuria 05/30/2022 01/24/2023 Overview: Xavier to [facility] 04/20-04/29 urosepsis multi drug resistant E. Coli [...] glenn ek & Lt. leg ; Rt. mandaeism 07/0207/18/2002 07/15/2015 Dyslipidemia, goal to be determined [...] MCG/0.3 mL, 12 YRS AND ABOVE, IM (OnMyBlock-Comirnat) 07/19/2023 Covid-19, Mrna, Lnp-s, Pf, B ivalent, [...] Encounter - Simran Murillo RN - 08/21/2023 10:33 AM EST Error Simran Murillo RN, BSN [facility] wet roasterState Game Protector documented in this encounter Plan of Treatment Upcoming Encounters Date Type Department Care Team (Late st Contact Info) Description 08/22/2023 9:00 AM EST Scheduled Telephone [facility] [place], [facility] [address] [facility] [place] [address] Coordinator, [facility] [address] [facility] [place] [address] 08/29/2023 3:30 PM EST Office Visit Cardiology [address] [place] [address] Chris Choudhury PA-C [address] [place] [address] 09/06/2023 9:10 AM EST Laboratory Lab Mobile Phlebotomy [facility] [address] [place] [address] [facility] Mobile Home Draw [address] [place], [place] [address] 09/20/2023 9:10 AM EST Laboratory Lab Mobile Phlebotomy [facility] [address] [place] [address] [facility], [facility] Mobile Home Draw [address] [place], [place] [address] 10/04/2023 9:10 AM EST Laboratory Lab Mobile Phlebot[facility] [address] [place] [address] [facility], [facility] Mobile Home Draw [address] [place] [address] 10/18/2023 9:10 AM EST Laboratory Lab Mobile Phlebot[facility] [address] [place] [address] [facility], [facility] Mobile Home Draw [address] [place] [address] 10/19/2023 4:20 PM EST Office Visit Family [address] [phone] Zenobia Lyon MD [address] [place] [address] [place] [address] 11/01/2023 9:10 AM EST Laboratory Lab Mobile Phlebot[facility] [address] [place] [address] [facility], [facility] Mobile Home Draw [address] [place] [address] 11/15/2023 9:10 AM EST Laboratory Lab Mobile Phlebot[facility] [address] [place] [address] [facility], [facility] Mobile Home Draw [address] [place] [address] 11/29/2023 9:10 AM EST Laboratory Lab Mobile Phle[facility] [address] [place] [address] [facility], [facility] Mobile Home Draw [address] [place] [address] 12/13/2023 9:10 AM EDT Laboratory Lab Mobile Phlebot[facility] [address] [place] [address] [facility], [facility] Mobile Home Draw [address] [place] [address] 01/26/2024 4:20 PM EDT Office Visit Family Medicine [address] [place] [address] Zenobia Lyon MD [address] [place] [address] [place] [address] Scheduled Procedures Name Priority Associated Diagnoses Date/Ti me COLONOSCOPY FLEXIBLE PROXIMA L DIAGNOSTIC Recall History of colonic polyps Health Maintenance Due Date Last Done Comments Alpha-1 Antitrypsin 1953 Hepatitis B (1 of 3 - Risk 3-dose series) 1994 DTaP,Tdap,and Td Vaccines (2 - Td or Tdap) 01/11/2023 01/11/2013, 04/01/2003, 04/01/2003 HbA1c 07/27/2023 01/25/2023, 03/2022, 01/14/2022, Additional history exists O2 ASSESSMENT COMPLETED [...] Additional history exists CKD PHOS USE SMARTSET 63851 07/25/2024 102 12/2022, 09/07/2022, 09/05/2022, Additional history exists CKD HGB USE SMARTSET 19171 08/09/202408/09, 08/09/2023, 07/25/2023, Additional history exists COLONOSCOPY-EVERY 5 YRS AGES 18-100 04/25/2028 04/25/2023, 03/26/2020, 07/06/2010, Additional history exists Zoster Vaccines Discontinued 02/10/2012 DXA Scan Discontinued 01/22/2016, /03/2013, 09/16/2011, Additional history exists Pneumococcal Vaccine: 65+ [...] this encounter Medical Devices Implanted Type Area Biological Chemist Device Identifier Shelf Expiration Date Model / Serial / Lot Screw T2 Alpha Lock 5x47.5mm - [id number] Implanted:Qty: 1 on 09/06/2022 by Sean Silva MD at [facility] Left: Leg Upper RICHELLE : TRAUMA 06/01/2032 [id number] / / [id number] documented as of this encounter Advance Directives Documents on File Type Date Recorded 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 POLST 10/17/2022 [place] OR DERS FOR LIFE-SUSTAINING TREATMENT POLST 09/10/2022 [place] OR DERS FOR LIFE-SUSTAINING TREATMENT Latest Code [...] Name Relationship Healthcare Agent Relationship Communication Remedios omer Spouse Health Care Agen t (per Health Care Power of Marketing Agent document) Reji Palaciosmel Dotts Adult Child First Alterna te Health Care Agent (per Health Care Power of Marketing Agent document) Bowen Omer Adult Child First Alternate Health Care Agent (per Health Care Power of Marketing Agent document) Care Teams Professor Of History Relationship Specialty Start Date End Date Zenobia Lyon MD [address] [place] [address] [place] [address] PCP - General Family Medicine 05/22/23 documented as of this encounter
--- OUTSIDE RECORDS SUMMARY | 2023-08-22 03:42 | External Medical Summary ---
Author Name Unknown Address Unknown Organization K01:[facility] [place] [address] [facility] Alejandra ALMAZAN [address] Laboratory Report Ordering Provider Test Date Status BILLY MADDEN 08/21/2023 12:45:00 Final Observation Date Value Abnormality Reference (Units ) Status SYNC LEUKOCYTES IN BLOOD BY AUTOMATED COUNT 08/21/2023 12:45:00 4.88 4.00-10.80 (K/uL) Final Segs 08/21/2023 12:45:00 59.8 40.0-75.0 (%) Final Lymphs % 08/21/2023 12:45:00 19.5 18.0-42.0 (%) Final Monos 08/21/2023 12:45:00 11.3 Above high normal 1.0-11.0 (%) Final Eosinophils 08/21/2023 12:45:00 8.2 Above high normal 0.0-6.0 (%) Final Basos 08/21/2023 12:45:00 0.4 0.0-2.0 (%) Final Immature Granulocyte, Percent 08/21/2023 12:45:00 0.8 0.0-2.0 (%) Final Absolute Segs 08/21/2023 12:45:00 2.92 1.80-7.70 (K/uL) Final Lymphs, absolute 08/21/2023 12:45:00 0.95 Below low normal 1.00-4.80 (K/ul) Final Monos, Abs 08/21/2023 12:45:00 0.55 0.00-1.10 (K/uL) Final Eos, Abs 08/21/2023 12:45:00 0.40 0.00-0.70 (K/uL) Final Basos, Abs 08/21/2023 12:45:00 0.02 0.00-0.20 (K/uL) Final Immature Granulocytes, Number 08/21/2023 12:45:00 0.04 0.00-0.20 (K/uL) Final Performing Location [facility] [place] [facility] [address]ier[address]. [facility] [address]
--- OUTSIDE RECORDS SUMMARY | 2023-08-22 03:42 | External Medical Summary | Summary of Care ---
Author Name Unknown Organization [facility] Address [address] [place] [address] Phone [phone] Care Team Providers Care Production Line Solderer Name Role Phone Zenobia Lyon MD Primary Care Provide r Encounter Details Date Type Department Care Team (Late st Contact Info) Description 08/20/2023 Telephone Family Practice [address], [place] 3 [facility] Floor 1 [address] [place] [address] Kane Bernard, DO [address] [facility] [address] [place], [place] [id number] Allergies Active Allergy Reactions Criticality Noted Date [...] 75 MG Oral Tablet (pLAVix)Indications: Atherosclerosis of [place] coronary artery of [place] heart without angina pectoris Take 1 [...] control in clinical research program 03/25/2015 Overview: [employer] Product Surveillance Registry PI: Kylah Lilly IV, [...] CORONARY ATHEROSCLEROSIS OF UNSPECIFIED TYPE OF VESSEL, [place] OR GRAFT Last Assessment & Plan: Stable. [...] without hematuria 05/30/2022 01/24/2023 Overview: Xavier to [facility] 04/20-04/29 urosepsis multi drug resistant [...] protocol Hypertensive heart disease with heart failure 12/25/1905/13/2022 Overview: more specific combo Chronic kidney disease, [...] glenn ek & Lt. leg ; Rt. holiness 07/0207/18/2002 07/15/2015 Dyslipidemia, goal to be determined [...] MCG/0.3 mL, 12 YRS AND ABOVE, IM (Inhibitex-Comirnat) 07/19/2023 Covid-19, Mrna, Lnp-s, Pf, B ivalent, [...] encounter Miscellaneous Notes * Telephone Encounter - Kane Bernard DO - 08/20/2023 3:01 PM EST Labs ordered to be done tomorrow instead of monday documented in this encounter Plan of Treatment Upcoming Encounters Date Type Department Care Team (Late st Contact Info) Description 08/21/2023 9:00 AM EST Scheduled Telephone [facility] [address] [place] [address] Coordinator, [facility] [address] [facility] [place] [address] 08/23/2023 9:10 AM EST Laboratory Lab Mobile Phlebotomy [facility] [address] [facility] [address] [facility] Mobile Home Draw [address] [facility] [place] [address] 08/29/2023 3:30 PM EST Office Visit Cardiology [address] [place] [address] Chris Choudhury PA-C [address] [place] [address] 09/06/2023 9:10 AM EST Laboratory Lab Mobile Phlebotomy [facility] [address] [facility] [place] [address] [facility], [facility] Mobile Home Draw [address] [place] [address] 09/20/2023 9:10 AM EST Laboratory Lab Mobile Phlebot[facility] [address] [place] [address] Gmc, Gml Mobile Home Draw [address] [place] [address] 10/04/2023 9:10 AM EST Laboratory Lab Mobile Phlebot[facility] [address] [place] [address] Gmc, Gml Mobile Home Draw [address] [place] [address] 10/18/2023 9:10 AM EST Laboratory Lab Mobile Ph[facility] [address] [place] [address] Gmc, Gml Mobile Home Draw [address] [place] [address] 10/19/2023 4:20 PM EST Office Visit Family [address] [phone] Zenobia Lyon MD [address] [place] [address] [place] [address] 11/01/2023 9:10 AM EST Laboratory Lab Mobile Phlebotomy [facility] [address] [place] [address] Gmc, Gml Mobile Home Draw [address] [place] [address] 11/15/2023 9:10 AM EST Laboratory Lab Mobile Phlebot[facility] [address] [place] [address] Gmc, Gml Mobile Home Draw [address] [place] [address] 11/29/2023 9:10 AM EST Laboratory Lab Mobile Phlebotomy [facility] [address] [place] [address] Gmc, Gml Mobile Home Draw [address] [place] [address] 12/13/2023 9:10 AM EDT Laboratory Lab Mobile Phlebotomy [facility] [address] [place] [address] [facility], [facility] Mobile Home Draw [address] [place] [address] 01/26/2024 4:20 PM EDT Office Visit [address] [place] [phone] Zenobia Lyon MD [address] [place] [address] [place] [address] Scheduled Orders Name Type Priority Associated Diagnoses Orde r Schedule CBC WITH WBC DIFFERENTIAL Lab Routine SOB (shortness of breath) 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 Expected: 08/20/2023 (Approximate), Expires: 08/20/2024 COMPREHENSIVE METABOLIC PANEL Lab Routine SOB (shortness of breath) 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 Expected: 08/20/2023 (Approximate), Expires: 08/20/2024 Scheduled Procedures Name Priority Associated Diagnoses Date/Ti me COLONOSCOPY FLEXIBLE PROXIMA L DIAGNOSTIC Recall History of colonic polyps Health Maintenance Due Date Last Done Comments Alpha-1 Antitrypsin 1953 Hepatitis B (1 of 3 - Risk 3-dose series) 1994 DTaP,Tdap,and Td Vaccines (2 - Td or Tdap) 01/11/2023 01/11/2013, 04/01/2003, 04/01/2003 HbA1c 07/27/2023 01/25/2023, 12/0 03/2022, 01/14/2022, Additional history exists O2 ASSESSMENT [...] Additional history exists CKD PHOS USE SMARTSET 56317 07/25/202407/03, 09/07/2022, 09/05/2022, Additional history exists CKD HGB USE SMARTSET 93062 08/09/202408/09, 08/09/2023, 07/25/2023, Additional history exists COLONOSCOPY-EVERY [...] this encounter Medical Devices Implanted Type Area White Kid Buffer Device Identifier Shelf Expiration Date Model / Serial / Lot Screw T2 Alpha Lock 5x47.5mm - [id number] Implanted:Qty: 1 on 09/06/2022 by Sean Silva MD at [facility] Left: Leg Upper RICHELLE : TRAUMA 06/01/2032 [id number] / / [id number] documented as of this encounter Visit Diagnoses Diagnosis SOB (shortness of breath)- Primary Shortness of breath 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 documented in this encounter Advance Directives Documents on File Type Date Recorded 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 POLST 10/17/2022 [place] OR [facility] FOR LIFE-SUSTAINING TREATMENT POLST 09/10/2022 [place] [facility] FOR LIFE-SUSTAINING TREATMENT Latest Code Status on [...] Agen t (per Health Care Power of Smt Operator document) Reji Tello Dotts Adult Child First Alterna te Health Care Agent (per Health Care Power of Smt Operator document) Bowen Tello Adult Child First Alternate Health Care Agent (per Health Care Power of Smt Operator document) Care Teams Production Line Solderer Relationship Specialty Start Date End Date Zenobia Lyon MD [address] [place] [address] [place] [phone] PCP - General Family Medicine 05/22/23 documented as of this encounter
--- OUTSIDE RECORDS SUMMARY | 2023-08-22 03:42 | External Medical Summary ---
Author Name Unknown Address Unknown Organization [id number]:LABORATORY [facility] - [address] [place] [address] Laboratory Report Ordering Provider Test Date Status BILLY MADDEN 08/21/2023 12:45:00 Final Observation Date Value Abnormality Reference (Units ) Status WBC, Total 08/21/2023 12:45:00 4.88 4.00-10.80 (K/uL) Final RBC 08/21/2023 12:45:00 1.78 4.50-5.25 (M/uL) Final Hemoglobin 08/21/2023 12:45:00 5.7 Below lower panic limits 14.0-16.8 (g/dL) Final HCT 08/21/2023 12:45:00 20.1 Below low normal 40.0-48.4 (%) Final MCV 08/21/2023 12:45:00 112.9 82.0-99.5 (fL) Final MCH 08/21/2023 12:45:00 32.0 27.0-34.0 (pg) Final MCHC 08/21/2023 12:45:00 28.4 32.0-36.0 (g/dL) Final RDW 08/21/2023 12:45:00 19.8 11.5-15.5 (%) Final Platelets 08/21/2023 12:45:00 188 140-400 (K/uL) Final MPV 08/21/2023 12:45:00 10.0 6.6-11.1 (fL) Final Nucleated erythrocytes/100 leukocytes [Ratio] in Blood by Automated count 08/21/2023 12:45:00 0 <=0 (/100 WBCs) Final Performing Location LABORATORY [facility] - [address] [place] [address]
--- OUTSIDE RECORDS SUMMARY | 2023-08-22 03:42 | External Medical Summary ---
Author Name Unknown Address Unknown Organization K01:LABORATORY [facility] [place] - [address] [facility] [place] [address] Laboratory Report Ordering Provider Test Date Status BILLY MADDEN 08/21/2023 12:45:00 Final Observation Date Value Abnormality Reference (Units ) Status BUN 08/21/2023 12:45:00 41 Above high normal 6-20 (mg/dL) Final Creatinine 08/21/2023 12:45:00 1.5 Above high normal 0.6-1.2 (mg/dL) Final Glomerular filtration rate/1.73 sq M.predicted [Volume Rate/Area] in Serum, Plasma or Blood by Creatinine-based formula (CKD-EPI) 08/21/2023 12:45:00 44 Below low normal >=60 (mL/min) Final eGFR is calculated based on the CKD-EPI 2020 equation SODIUM 08/21/2023 12:45:00 142 135-146 (m mol/L) Final Potassium 08/21/2023 12:45:00 4.2 3.5-5.1 (m mol/L) Final Cl 08/21/2023 12:45:00 101 98-107 (mm ol/L) Final CO2 08/21/2023 12:45:00 25 22-32 (mmo l/L) Final Anion gap 08/21/2023 12:45:00 16 Above high normal 7- 15 (mmol/L) Final Glucose 08/21/2023 12:45:00 209 Above high normal 70 -120 (mg/dL) Final Albumin 08/21/2023 12:45:00 3.0 Below low normal 3.8 -5.0 (g/dL) Final AST (Aspartate aminotransferase) 08/21/2023 12:45:00 11 10-50 (U/L) Fin al Alk Phos 08/21/2023 12:45:00 30 Below low normal 35- 130 (U/L) Final Bilirubin, Total 08/21/2023 12:45:00 0.3 <=1 .2 (mg/dL) Final Calcium 08/21/2023 12:45:00 9.1 8.4-10.2 ( mg/dL) Final Protein 08/21/2023 12:45:00 8.0 6.0-8.3 (g /dL) Final ALT (Alanine aminotransferase) 08/21/2023 12:45:00 8 Below low normal 10-50 (U/L) Final Performing Location LABORATORY [facility] - [address] [facility] [address]
--- OUTSIDE RECORDS SUMMARY | 2023-08-22 03:42 | External Medical Summary | Summary of Care ---
Author Name Unknown Organization [facility] Address [address] [facility] [address] Phone [phone] Care Team Providers Care Ocean Import Representative Name Role Phone Zenobia Lyon MD Primary Care Provide r Reason for Visit * Reason Onset Date Comments [facility]: Maintenance 08/21/2023 Encounter Details Date Type Department Care Team (Late st Contact Info) Description 08/21/2023 9:00 AM EST Scheduled Telephone [facility], [facility] [address] [place] [address] Coordinator, [facility] [address] [place] [address] Allergies Active Allergy Reactions Criticality Noted Date [...] 75 MG Oral Tablet (pLAVix)Indications: Atherosclerosis of [place] coronary artery of [place] heart without angina pectoris Take 1 Tablet [...] control in clinical research program 03/25/2015 Overview: [employer] 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 [...] hematuria 05/30/2022 01/24/2023 Overview: Xavier to [facility] 04/20-04/29 urosepsis multi drug resistant E. [...] glenn ek & Lt. leg ; Rt. baptism 07/0207/18/2002 07/15/2015 Dyslipidemia, goal to be determined [...] MCG/0.3 mL, 12 YRS AND ABOVE, IM (Uberpong-Comirnat) 07/19/2023 Covid-19, Mrna, Lnp-s, Pf, B ivalent, [...] Encounter - Simran Murillo RN - 08/21/2023 10:23 AM EST [facility] Telephonic Nurse Follow-Up Call [facility] Subprogram: Primary Care at Home Follow Up Call Type: 24 hour follow up Acute issue requiring follow-up call: Other: weakness poss transfusion Objective: 07/25/2023 3:44 PM 07/23/2023 12:16 PM [...] Remote Patient Monitoring: NONE Oxygen Needs: NO supplemental oxygen needs identified DME Needs: NO DME needs identified Medications: No medication or dose adjustments made during acute episode Subjective: Condition Status: No change in symptoms Current Concerns: Spoke with spouse she is aware mobile phleb is scheduled today,[facility], to obtain labs Spouse ststes patient just got up. 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 Logistics Administrator Future Visits Scheduled: Future Appointments-next 60 days Date/Time Provider Specialty Dept Phone 08/21/2023 10:30 AM [facility], [facility] Mobile Home Draw Laboratory Processing [phone] 08/29/2023 3:30 PM (Arrive by 3:15 PM) Chris Choudhury PA-C Cardiology [phone] 09/06/2023 9:10 AM [facility], [facility] Mobile Home Draw Laboratory Processing [phone] 09/20/2023 9:10 AM [facility], [facility] Mobile Home Draw Laboratory Processing [phone] 10/04/2023 9:10 AM [facility], G[facility] Mobile Home Draw Laboratory Processing [phone] 10/18/2023 9:10 AM [facility], Gml Mobile Home Draw Laboratory Processing [phone] 10/19/2023 4:20 PM (Arrive by 4:05 PM) Zenobia Lyon MD Family Medicine [phone] 11/01/2023 9:10 AM [facility], G[facility] Mobile Home Draw Laboratory Processing [phone] 11/15/2023 9:10 AM [facility], Gml Mobile Home Draw Laboratory Processing [phone] 11/29/2023 9:10 AM [facility], Gml Mobile Home Draw Laboratory Processing [phone] 12/13/2023 9:10 AM [facility], [facility] Mobile Home Draw Laboratory Processing [phone] 01/26/2024 4:20 PM (Arrive by 4:05 PM) Zenobia Lyon MD Family Medicine [phone] Simran Murillo, RN documented in this encounter Plan of Treatment Upcoming Encounters Date Type Department Care Team (Late st Contact Info) Description 08/22/2023 9:00 AM EST Scheduled Telephone [facility], [facility] [address] [facility] [place] [address] Coordinator, [facility] [address] [facility] [place] [address] 08/29/2023 3:30 PM EST Office Visit Cardiology [address] [place] [address] Chris Choudhury PA-C [address] [place] [address] 09/06/2023 9:10 AM EST Laboratory Lab Mobile Phlebotomy [facility] [address] [place] [address] [facility] Mobile Home Draw [address] [place] [address] 09/20/2023 9:10 AM EST Laboratory Lab Mobile Phlebot[facility] [address] [place] [address] Gmc, Gml Mobile Home Draw [address] [place] [address] 10/04/2023 9:10 AM EST Laboratory Lab Mobile Phlebotomy [facility] [address] [place] [address] Gmc, Gml Mobile Home Draw [address] [place] [address] 10/18/2023 9:10 AM EST Laboratory Lab Mobile Phlebot[facility] [address] [place] [address] Gmc, Gml Mobile Home Draw [address] [place] [address] 10/19/2023 4:20 PM EST Office Visit Family [address] [phone] Zenobia Lyon MD [address] [place] [address] [place] [address] 11/01/2023 9:10 AM EST Laboratory Lab Mobile Phlebotomy [facility] [address] [place] [address] Gmc, Gml Mobile Home Draw [address] [place] [address] 11/15/2023 9:10 AM EST Laboratory Lab Mobile Phlebotomy [facility] [address] [place] [address] Gmc, Gml Mobile Home Draw [address] [place] [address] 11/29/2023 9:10 AM EST Laboratory Lab [facility] [address] [place] [address] Gm, Gml Mobile Home Draw [address] [place] [address] 12/13/2023 9:10 AM EDT Laboratory Lab Mobile Ph[facility]bot[facility] [address] [place] [address] [facility] Gml Mobile Home Draw [address] [place] [address] 01/26/2024 4:20 PM EDT Office Visit [address] [phone] Zenobia Lyon MD [address] [place] [address] [place] [address] Scheduled Procedures Name Priority Associated Diagnoses Date/Ti [...] Additional history exists CKD PHOS USE SMARTSET 00892 07/25/202407/03, 09/07/2022, 09/05/2022, Additional history exists CKD HGB USE SMARTSET 91339 08/09/202408/09, 08/09/2023, 07/25/2023, Additional history exists COLONOSCOPY-EVERY [...] this encounter Medical Devices Implanted Type Area Installment Account Checker Device Identifier Shelf Expiration Date Model / Serial / Lot Screw T2 Alpha Lock 5x47.5mm - [id number] Implanted:Qty: 1 on 09/06/2022 by Sean Silva MD at [facility] Left: Leg Upper RICHELLE : TRAUMA 06/01/2032 [id number] / / [id number] documented as of this encounter Advance Directives Documents on File Type Date Recorded 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 POLST 10/17/2022 [place] OR DERS FOR LIFE-SUSTAINING TREATMENT POLST 09/10/2022 [place] OR DERS FOR LIFE-SUSTAINING TREATMENT Latest Code [...] Agen t (per Health Care Power of Party Plan Demonstrator document) Reji Tello Vannats Adult Child First Alterna te Health Care Agent (per Health Care Power of Party Plan Demonstrator document) Bowen Tello Adult Child First Alternate Health Care Agent (per Health Care Power of Party Plan Demonstrator document) Care Teams Ocean Import Representative Relationship Specialty Start Date End Date Zenobia Lyon MD [address] [place] [address] [place] [phone] PCP - General Family Medicine 05/22/23 documented as of this encounter
--- NOTE | 2023-08-22 03:43 | Emergency Department Note ---
Impression & Plan Severe anemia ED Provider Note NAME: MARTA ALLEN Sr AGE: 88 SEX: Male INFORMANT: Patient ED PROVIDER(S): Itz Llamas MD CHIEF COMPLAINT: Abnormal labs PLAN: Disposition: Admitted Outpatient prescription management: none Referral: None MEDICAL DECISION MAKING: Patient presented because of abnormal labs. Patient testing revealed a hemoglobin of 5.7. Record review indicates patient has been getting multiple transfusions secondary to his multiple myeloma. He was admitted last month and had 4 units of blood for symptomatic anemia. Patient had an IV established. Blood work was obtained. ECG performed. Patient also had chest imaging done. He was typed and crossed for 4 units of packed red blood cells. Patient was found to have a severely low hemoglobin of 5.4. Family was present. Discussed transfusion with patient and family. They consented. Given the patient's dementia I did have the signed the consent. She has done this before. Patient has not had any issues with transfusions in the past. He has required diuretic previously. Patient will be monitored for this. Patient was ordered for 3 units of packed red blood cells. I did place a consultation with Dr[facility] F[facility]ed [facility] Patient was evaluated in the ER and admitted for further management. Care/management discussed with: Discussed with regulatory manager Level of care consideration(s): After review of the information above and other included data, I feel the patient requires escalation of care to admission. Triage Nursing notes: reviewed and agree them. Vital Signs: reviewed and remarkable for no significant abnormalities Additional History obtained from: Patient's family. They did note the patient had a spot of blood on the front of his underwear and they were concerned about a urinary source. Urinalysis ordered. Chronic Medical/Social Conditions affecting care: Multiple myeloma, anemia Prior/ Outside/ External records reviewed: Discharge summary from July 2023. Patient admitted for severe anemia and received 4 units of packed red blood cells. Differential Diagnosis: Symptomatic anemia, laboratory error, complication of multiple myeloma, GI bleed, infection, dehydration, metabolic abnormality, hypo/hyperglycemia, electrolyte disturbance, anemia, hypoxia, cardiac sources, intracerebral event, toxicologic, neurologic, as well as other pathologies. Diagnostics, independently interpreted by me: ECG: Twelve-lead ECG reveals paced rhythm at 70 bpm. Cardiac Monitoring: Cardiac monitoring ordered by me: The patient was placed on continuous cardiac monitoring and observed. It revealed a paced rhythm at 74 beats per minute without ectopy or evidence of dysrhythmia. Medical decision rules: none Imaging studies: Deferred HPI: 88 year old Male arrives for evaluation of abnormal labs. Patient has history of multiple myeloma and received multiple blood transfusions. He notes some fatigue and had outpatient blood work done. He was called late tonight with an abnormal lab value of hemoglobin 5.7. Patient was instructed to come to the hospital for further evaluation and management. Patient notes some generalized weakness but denies any pain. No black or bloody stools. Pt denies LOC, dizziness, headache, fevers, chills, neck pain, chest pain, breathing difficulties, nausea, vomiting, abdominal pain, back pain, melena, hematochezia, rash, or other complaints. PAST MEDICAL HISTORY: See Below, multiple myeloma PAST SURGICAL HISTORY: See Below, SOCIAL HISTORY: See Below, retired HOME MEDICATIONS: See Below ALLERGIES: See Below VITALS: See Below PHYSICAL EXAMINATION: GENERAL: Awake, tired appearing, in no distress HENT: Normocephalic, atraumatic. Oropharynx unremarkable. EYES: Pale conjunctiva. Sclera non-icteric. NECK: Inspection normal. Non-tender. Supple. No nuchal rigidity. FROM. No masses. RESPIRATORY: Clear to auscultation. No wheezes. No rales. Normal respiratory effort. CARDIAC: Normal rate. Normal rhythm. No murmurs. No rubs. Extremities warm and well perfused. Pulses equal. No JVD. GI: Soft, non-distended. No tenderness to palpation. No rebound or guarding. No masses. RECTAL: Deferred. MUSCULOSKELETAL: Atraumatic. Chest examination reveals no tenderness. The back is symmetrical on inspection without obvious abnormality. There is no CVA tenderness to palpation. No joint edema. LOWER EXTREMITIES: Calves are equal size bilaterally and non-tender. 1+ edema. Chronic venous discoloration. NEURO: Normal sensorium. No sensory or motor deficits noted. SKIN: No rash or jaundice noted. PROCEDURES: none CRITICAL CARE: I have personally spent 30 minutes of critical care time in the direct management of this patient. This includes bedside care, interpretation of diagnostic studies, and testing, discussion with consultants, patient, and family members, and other required patient management activities. These minutes are in excess of all separately billable procedures. OBSERVATION NOTE: none Past Med/Surg History Medical History Anemia Aortic aneurysm unsure of last ultrasound/scan -- no surgical intervention. Moderate aortic root dilatation noted on 2018 echo. No AAA noted on [address] Aortic valve insufficiency Moderate-severe per 11/2018 echo BPH (benign prostatic hyperplasia) CAD (coronary artery disease) (08/21/14) S/p CABG July 2000 receiving KAUR graft to LAD, saphenous vein graft sequentially from the obtuse marginal to diagonal. S/p stenting of prox Cx 2013 Chronic back pain CKD stage 3 due to type 2 diabetes mellitus no specialist COPD (chronic obstructive pulmonary disease) well controlled rare res inh use Dementia mild at present Dementia Dyslipidemia Encounter for pre-operative examination GERD (gastroesophageal reflux disease) GI bleed per pt's > had 3 units PRBC's [facility] during admission in Jul 2021 Glaucoma Hearing deficit [place] History of colon polyps History of pacemaker HTN (hypertension) Ischemic cardiomyopathy EF normalized, most recently 55-60% on 11/2018 echo Multiple myeloma On home oxygen therapy 2 LPM QHS Osteoarthritis Persistent atrial fibrillation Anticoagulation contraindicated per cardiology > ICD Presence of combination internal cardiac defibrillator (ICD) and pacemaker follows w/ Dr. Sanford > [employer] > gets checked electronically > PMH provided by , eduardo when last checked in office. Severe sepsis Shingles Tachy-lorna syndrome S/p dual chamber pacer with upgrade to pacer/ICD 2014 Type II diabetes mellitus NIDDM Surgical History History of cardiac cath 1999 --> CABG 2013 - 1 stent - [facility] History of cataract surgery bilat History of colonoscopy History of esophagogastroduodenoscopy (EGD) History of implantable cardioverter-defibrillator (ICD) placement History of prostate surgery non cancerous History of tonsillectomy History of tooth extraction S/P CABG x 1999 S/P coronary artery stent placement July 2014 with stenting of the proximal circumflex Family History Grandmother Diabetes Mother Colon cancer Other Melanoma No family history of adverse response to anesthesia Social History Smoking Status: Former smoker Tobacco Type: Cigarettes Second Hand Exposure: No; Hx Alcohol Use: No Hx Substance Use: No Preferred Language: Albanian Communication Ability: Effective Communication Ability Comment: [place] despite b/l [place] Raise Driller Required: No Beliefs That Will Affect Care: None marital status: Current Living Situation: Spouse How many Children do You have: 2 Feels Safe at Home: Yes Assistive Devices: Cane Allergies Allergies Allergy/AdvReac Type Severity Reaction Status Date / Time Sulfa (Sulfonamide Allergy Severe Unresponsiv Verified 07/14/23 11:00 Antibiotics) e FELECIA Inhibitors Allergy Unknown Unknown Verified 07/14/23 11:00 prednisone AdvReac Intermediate BLISTERS Verified 07/14/23 11:00 IN THROAT pseudoephedrine AdvReac Intermediate TEMP ELEV Verified 07/14/23 11:00 Home Meds Home Medications Medication Instructions Recorded Confirmed albuterol sulfate 90 mcg/actuation 2 puff inhalation QID PRN 06/07/18 07/20/23 aerosol inhaler (Proventil HFA) Shortness Of Breath digoxin 125 mcg (0.125 mg) tablet 125 mcg PO 3XWK 06/07/18 07/20/23 fluticasone 250 mcg-salmeterol 50 1 inh inhalation AMHS 06/07/18 07/20/23 mcg/dose blistr powdr for inhalation (Advair Diskus) magnesium oxide 400 mg (241.3 mg 400 mg PO PM 06/07/18 07/20/23 magnesium) tablet potassium chloride 20 mEq 20 meq PO QAM 06/07/18 07/20/23 tablet,extended release(part/cryst) (Klor-Con M) furosemide 40 mg tablet (Lasix) 40 mg PO QAM 04/25/19 07/20/23 latanoprost 0.005 % eye drops 1 drp OPB HS 03/24/20 07/20/23 albuterol sulfate 1.25 mg/3 mL 1.25 mg inhalation Q4H PRN Wheezing 04/21/21 07/20/23 solution for nebulization pantoprazole 40 mg tablet,delayed 40 mg PO QAM 10/22/21 07/20/23 release clopidogrel 75 mg tablet 75 mg PO QAM 04/20/22 07/20/23 triamcinolone acetonide 0.1 % 1 applic topical BID PRN rash or 04/20/22 07/20/23 topical ointment more instead of scratching acetaminophen 325 mg tablet 325 mg PO Q4 PRN Fever Or Pain 08/28/22 07/20/23 ferrous sulfate 325 mg (65 mg 325 mg PO Q OTHER DAY 08/28/22 07/20/23 iron) tablet (FeroSul) losartan 50 mg tablet 50 mg PO QAM 08/28/22 07/20/23 metoprolol succinate 50 mg 50 mg PO DAILY 08/28/22 07/20/23 tablet,extended release 24 hr multivitamin 1 tab PO DAILY 08/28/22 07/20/23 glipizide 5 mg tablet, extended 5 mg PO QAM 04/20/23 07/20/23 release 24 hr Previous Rx's Medication Instructions Recorded dutasteride 0.5 mg capsule 0.5 mg PO DAILY #90 caps 01/03/22 diclofenac sodium 1 % topical gel 2 g EXT QID PRN pain #100 grams 04/29/22 (Voltaren Arthritis Pain) methenamine hippurate 1 gram tablet 1 g PO BID 30 days #60 tabs 11/25/22 furosemide 40 mg tablet 40 mg PO Q OTHER DAY #20 tabs 07/21/23 Results & Data (ED) Vital Signs Vital Signs - 24 hr 08/22/23 02:55 08/22/23 03:27 08/22/23 04:41 Temperature 36.9 C Temperature Source Oral Pulse Rate 74 70 76 Pulse Rate from SpO2 Sensor 79 Respiratory Rate 18 Respiratory Effort / Characteristics Non-Labored Respiratory Depth Normal Respiratory Pattern Regular Blood Pressure 171/78 H Blood Pressure Mean 109 Pulse Oximetry 97 98 Oxygen Delivery Method Room Air Sepsis Recent Fever Within 48 Hours No Sepsis New/Unexplained Change in Mental Status No Sepsis Action Taken by Nursing No Action Required 08/22/23 05:00 Temperature Temperature Source Pulse Rate 70 Pulse Rate from SpO2 Sensor 70 Respiratory Rate 22 Respiratory Effort / Characteristics Respiratory Depth Respiratory Pattern Blood Pressure 162/76 H Blood Pressure Mean 104 Pulse Oximetry 97 Oxygen Delivery Method Sepsis Recent Fever Within 48 Hours Sepsis New/Unexplained Change in Mental Status Sepsis Action Taken by Nursing Laboratory Data 08/22/23 03:31 08/22/23 03:31 Lab Results 08/22/23 08/22/23 Range/Units 03:16 03:31 WBC 5.20 (4.8-10.8) K/ul RBC 1.70 L (4.70-6.10) M/uL Hgb 5.4 L* (14.0-18.0) g/dl Hct 18.2 L* (42.0-52.0) % MCV 107.1 H (80.0-100.0) fL MCH 31.8 (25.0-34.0) pg MCHC 29.7 L (32.0-36.0) g/dL RDW Std Deviation 74.1 H (36.4-46.3) fL RDW Coeff of Maricarmen 19.7 H (11.5-14.5) % Plt Count 189 (130-400) K/uL MPV 10.0 (9.4-12.4) fL Absolute Nucleated RBC 0.02 (0.00-0.12) K/uL Nucleated RBC % (auto) 0.4 % Sodium 144 (136-145) mmol/L Potassium 4.2 (3.5-5.1) mmol/L Chloride 104 (98-107) mmol/L Carbon Dioxide 26 (21-32) mmol/L Anion Gap 14 H (3-11) BUN 41 H (6-23) mg/dl Creatinine 1.45 H (0.6-1.4) mg/dl Est Cr Clr Drug Dosing 37.9 ml/min Est GFR ( Amer) 49.1 ml/min Est GFR (Non-Af Amer) 42.4 ml/min BUN/Creatinine Ratio 28.3 H (10-20) Glucose 108 H (70-99(Fasting)) mg/dl Calcium 8.9 (8.6-10.3) mg/dl Total Bilirubin 0.4 (0.2-1.0) mg/dl AST 11 L (13-39) U/L ALT 5 L (7-52) U/L Alkaline Phosphatase 27 L (34-104) U/L Total Protein 8.1 (6.0-8.3) gm/dl Albumin 2.9 L (3.4-5.0) gm/dl Globulin 5.2 H (2.5-4.0) gm/dl Albumin/Globulin Ratio 0.6 L (0.9-2) Blood Type A Positive Antibody Screen NEGATIVE Crossmatch See Detail Discharge Plan Visit Data Chief Complaint: Abnormal Labs/Diagnostic Testing Stated Complaint: Hemoglobin 5.6, Referred by DR LEACH Provider: Itz Llamas Discharge Problem: Severe anemia Forms Stand Alone Forms: [facility] Prescriptions Prescriptions: No Action dutasteride 0.5 mg capsule 0.5 mg PO DAILY Qty: 90 3RF methenamine hippurate 1 gram tablet 1 g PO BID 30 Days Qty: 60 5RF furosemide [Lasix] 40 mg Tablet 40 mg PO QAM fluticasone propion-salmeterol [Advair Diskus] 250-50 mcg/dose Blister With Device 1 inh INHALATION AMHS potassium chloride [Klor-Con M20] 20 mEq Tablet,Er Particles/Crystals 20 meq PO QAM magnesium oxide 400 mg (241.3 mg magnesium) Tablet 400 mg PO PM digoxin 125 mcg Tablet 125 mcg PO 3XWK Rx Instructions: take 1 tablet mon,wed,fri albuterol sulfate [Proventil HFA] 90 mcg/actuation Hfa Aerosol Inhaler 2 puff INHALATION QID PRN (Reason: Shortness Of Breath) latanoprost 0.005 % Drops 1 drp OPB HS albuterol sulfate 1.25 mg/3 mL Solution For Nebulization 1.25 mg INHALATION Q4H PRN (Reason: Wheezing) pantoprazole 40 mg tablet,delayed release (DR/EC) 40 mg PO QAM clopidogrel 75 mg tablet 75 mg PO QAM triamcinolone acetonide 0.1 % Ointment 1 applic TOPICAL BID PRN (Reason: rash or more instead of scratching) diclofenac sodium [Voltaren Arthritis Pain] 1 % Gel 2 g EXT QID PRN (Reason: pain) Qty: 100 0RF metoprolol succinate 50 mg tablet extended release 24 hr 50 mg PO DAILY losartan 50 mg tablet 50 mg PO QAM ferrous sulfate [FeroSul] 325 mg (65 mg iron) tablet 325 mg PO Q OTHER DAY Rx Instructions: ordered bid but pt takes every other day acetaminophen 325 mg Tablet 325 mg PO Q4 PRN (Reason: Fever Or Pain) Rx Instructions: use for temp>38C multivitamin Tablet 1 tab PO DAILY glipizide 5 mg Tablet Extended Release 24hr 5 mg PO QAM furosemide 40 mg tablet 40 mg PO Q OTHER DAY Qty: 20 0RF Rx Instructions: Take every other afternoon. Referrals Referrals: Muriel Chowdary MD [Primary Care Provider] -
--- OUTSIDE RECORDS SUMMARY | 2023-08-22 03:43 | External Medical Summary ---
Author Name Unknown Address Unknown Organization K01:LABORATORY [facility] - [address] [facility] [place] [address] Laboratory Report Ordering Provider Test Date Status DEB BULL 08/09/2023 08:28:00 Final Observation Date Value Abnormality Reference (Units ) Status SYNC LEUKOCYTES IN BLOOD BY AUTOMATED COUNT 08/09/2023 08:28:00 3.71 Below low normal 4.00-10.80 (K/uL) Final Segs 08/09/2023 08:28:00 41.4 40.0-75.0 (%) Final Lymphs % 08/09/2023 08:28:00 28.6 18.0-42.0 (%) Final Monos 08/09/2023 08:28:00 15.4 Above high normal 1.0-11.0 (%) Final Eosinophils 08/09/2023 08:28:00 13.5 Above high normal 0.0-6.0 (%) Final Basos 08/09/2023 08:28:00 0.8 0.0-2.0 (%) Final Immature Granulocyte, Percent 08/09/2023 08:28:00 0.3 0.0-2.0 (%) Final Absolute Segs 08/09/2023 08:28:00 1.54 Below low normal 1.80-7.70 (K/uL) Final Lymphs, absolute 08/09/2023 08:28:00 1.06 1.00-4.80 (K/ul) Final Monos, Abs 08/09/2023 08:28:00 0.57 0.00-1.10 (K/uL) Final Eos, Abs 08/09/2023 08:28:00 0.50 0.00-0.70 (K/uL) Final Basos, Abs 08/09/2023 08:28:00 0.03 0.00-0.20 (K/uL) Final Immature Granulocytes, Number 08/09/2023 08:28:00 0.01 0.00-0.20 (K/uL) Final Performing Location LABOR[facility]ORY [facility] - [facility] [address]. [facility] [address]
--- OUTSIDE RECORDS SUMMARY | 2023-08-22 03:43 | External Medical Summary | Summary of Care ---
Author Name Unknown Organization [facility] Address [address] [place] [address] Phone [phone] Care Team Providers Care Zipper Setter Chainstitch Name Role Phone Zenobia Lyon MD Primary Care Provide r Encounter Details Date Type Department Care Team (Late st Contact Info) Description 08/16/2023 Population Health External Data Unspecified Department Allergies Active Allergy Reactions Criticality Noted Date Comments James Inhibitors 09/10/2002 cough on prinivil Hydrocodone 09/05/2022 Family states AMS change when taken Prednisone 05/26/2011 Blisters in throat Sulfa Antibiotics 03/19/2001 dysurea documented as of this encounter (statuses as of 08/16/2023) Medications Medication Sig Dispensed Refills Start Date [...] 75 MG Oral Tablet (pLAVix)Indications: Atherosclerosis of [place] coronary artery of [place] heart without angina pectoris Take 1 Tablet [...] as of this encounter (statuses as of 08/16/2023) Active Problems Patient Care Coordination No te [...] CORONARY ATHEROSCLEROSIS OF UNSPECIFIED TYPE OF VESSEL, [place] OR GRAFT Last Assessment & Plan: Stable. 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 documented as of this encounter (statuses as of 08/16/2023) Resolved Problems Problem Noted Date Diagnosed Date [...] without hematuria 05/30/2022 01/24/2023 Overview: Xavier to [facility] 04/20-04/29 urosepsis multi drug resistant [...] and stage 3 chronic kidney disease 06/26/2018 1 Overview: Per CKD protocol Acute posthemorrhagic anemia [...] glenn ek & Lt. leg ; Rt. roman catholic 07/0207/18/2002 07/15/2015 Dyslipidemia, goal to be determined [...] as of this encounter (statuses as of 08/16/2023) Immunizations Name Administration Dates Next Due COVID-19 mRNA, LNP-s, No Pre serve, 2-Dose Series (Moderna) 08/24/2021,12/07/2020,11/09/2020 COVID-19, MRNA-LNP, 23-24, P F, 30 MCG/0.3 mL, 12 YRS AND ABOVE, IM (StemPath-ComirnatPLUMgrid) 07/19/2023 Covid-19, Mrna, Lnp-s, Pf, B ivalent, [...] No 09/05/2022 documented as of this encounter Plan of Treatment Upcoming Encounters Date Type Department Care Team (Late st Contact Info) Description 08/23/2023 9:10 AM EST Laboratory Lab Mobile Phlebot[facility] [address] [place] [address] Gmc, Gml Mobile Home Draw [address] [place] [address] 08/29/2023 3:30 PM EST Office Visit Cardiology [address] [place] [address] Chris Choudhury PA-C [address] [place] [address] 09/06/2023 9:10 AM EST Laboratory Lab Mobile Phlebotomy C [address] [place] [address] Gmc, Gml Mobile Home Draw [address] [place] [address] 09/20/2023 9:10 AM EST Laboratory Lab [facility] Ph[facility] [address] [place] [address] Gmc, Gml Mobile Home Draw [address] [place] [address] 10/04/2023 9:10 AM EST Laboratory Lab [facility] Phle[facility] [address] [place] [address] Gmc, Gml Mobile Home Draw [address] [place] [address] 10/18/2023 9:10 AM EST Laboratory Lab [facility] Phlebot[facility] [address] [place] [address] Gmc, Gml Mobile Home Draw [address] [place] [address] 10/19/2023 4:20 PM EST Office Visit Family Medicine [address] [place] [phone] Zenobia Lyon MD [address] [place] [address] [place] [address] 11/01/2023 9:10 AM EST Laboratory Lab Mobile [facility] [address] [place] [address] Gmc, Gml Mobile Home Draw [address] [place] [address] 11/15/2023 9:10 AM EST Laboratory Lab Mobile Phlebot[facility] [address] [place] [address] Gmc, Gm Mobile Home Draw [address] [place] [address] 11/29/2023 9:10 AM EST Laboratory Lab Mobile Phlebotomy [facility] [address] [place] [address] Gm, Gml Mobile Home Draw [address] [place] [address] 12/13/2023 9:10 AM EDT Laboratory Lab Mobile Phlebotomy [facility] [address] [place] [address] [facility] Mobile Home Draw [address] [place] [address] 01/26/2024 4:20 PM EDT Office Visit Family Medicine [address] [phone] Zenobia Lyon MD [address] [place] [address] [place] [address] Scheduled Procedures Name Priority Associated Diagnoses Date/Ti [...] Additional history exists CKD PHOS USE SMARTSET 11257 07/25/202407/03, 09/07/2022, 09/05/2022, Additional history exists CKD HGB USE SMARTSET 17779 08/09/202408/09, 08/09/2023, 07/25/2023, Additional history exists COLONOSCOPY-EVERY [...] this encounter Medical Devices Implanted Type Area Drill Runner Helper Device Identifier Shelf Expiration Date Model / Serial / Lot Screw T2 Alpha Lock 5x47.5mm - [id number] Implanted:Qty: 1 on 09/06/2022 by Sean Silva MD at [facility] Left: Leg Upper RICHELLE : TRAUMA 06/01/2032 [id number] / / [id number] documented as of this encounter Advance Directives Documents on File Type Date Recorded 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 POLST 10/17/2022 [place] OR DERS FOR LIFE-SUSTAINING TREATMENT POLST 09/10/2022 [place] OR DERS FOR LIFE-SUSTAINING TREATMENT Latest Code [...] Agen t (per Health Care Power of Buckle Coverer document) Reji Tello Dotts Adult Child First Alterna te Health Care Agent (per Health Care Power of Buckle Coverer document) Bowen Tello Adult Child First Alternate Health Care Agent (per Health Care Power of Buckle Coverer document) Care Teams Zipper Setter Chainstitch Relationship Specialty Start Date End Date Zenobia Lyon MD [address] [place] [address] [place] [phone] PCP - General Family Medicine 05/22/23 documented as of this encounter
--- OUTSIDE RECORDS SUMMARY | 2023-08-22 03:43 | External Medical Summary | Summary of Care ---
Author Name Unknown Organization [facility] Address [address] [place] [address] Phone [phone] Care Team Providers Care Histologic Aide Name Role Phone Zenobia Lyon MD Primary Care Provide r Reason for Visit * Reason Onset Date Comments Test Results Lab 08/10/2023 Encounter Details Date Type Department Care Team (Late st Contact Info) Description 08/10/2023 Telephone Hematology/Oncology Treatment, [place] [address] [place] [address] Pietro Sykes MD [address] [place] [address] Test Results Lab Allergies Active Allergy Reactions Criticality Noted Date Comments James Inhibitors 09/10/2002 cough on prinivil Hydrocodone 09/05/2022 Family states AMS change when taken Prednisone 05/26/2011 Blisters in throat Sulfa Antibiotics 03/19/2001 dysurea documented as of this encounter (statuses as of 08/10/2023) Medications Medication Sig Dispensed Refills Start Date [...] 75 MG Oral Tablet (pLAVix)Indications: Atherosclerosis of [place] coronary artery of [place] heart without angina pectoris Take 1 Tablet [...] as of this encounter (statuses as of 08/10/2023) Active Problems Patient Care Coordination No te [...] CORONARY ATHEROSCLEROSIS OF UNSPECIFIED TYPE OF VESSEL, [place]ARMIUT OR GRAFT Last Assessment & Plan: Stable. 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 documented as of this encounter (statuses as of 08/10/2023) Resolved Problems Problem Noted Date Diagnosed Date [...] without hematuria 05/30/2022 01/24/2023 Overview: Xavier to [facility] 04/20-04/29 urosepsis multi drug resistant E. [...] KERATOSIS Lt. glenn ek & Lt. leg 98; Rt. tenriism 07/0207/18/2002 07/15/2015 Dyslipidemia, goal to be determined [...] as of this encounter (statuses as of 08/10/2023) Immunizations Name Administration Dates Next Due COVID-19 mRNA, LNP-s, No Pre serve, 2-Dose Series (Moderna) 08/24/2021,12/07/2020,11/09/2020 COVID-19, MRNA-LNP, 23-24, P F, 30 MCG/0.3 mL, 12 YRS AND ABOVE, IM (Rosum-Comirnat) 07/19/2023 Covid-19, Mrna, Lnp-s, Pf, B ivalent, [...] or making decisions? (5 years old or older No 09/05/2022 documented as of this encounter Miscellaneous Notes * Telephone Encounter - Tiny Chase RN - 08/10/2023 7:[address] Sykes: "Blood workup done on 08/09/2023: - WBC 3700, H&H of 8.10/29, platelet count of 200,000. - ANC 1500. Absolute Lymphocyte count 1000. Overall stable anemia. No need for blood transfusion. Repeat CBCD in about 2 weeks. " MyG sent. Patient has home phleb appt 08/23/23. documented in this encounter Plan of Treatment Upcoming Encounters Date Type Department Care Team (Late st Contact Info) Description 08/23/2023 9:10 AM EST Laboratory Lab Mobile Phlebotomy [facility] [address] [place] [address] [facility], [facility] Mobile Home Draw [address] [place] [address] 08/29/2023 3:30 PM EST Office Visit Cardiology [address] [place] [address] Chris Choudhury PA-C [address] [place] [address] 09/06/2023 9:10 AM EST Laboratory Lab Mobile Phlebotomy [facility] [address] [place] [address] [facility], [facility] Mobile Home Draw [address] [place] [address] 09/20/2023 9:10 AM EST Laboratory Lab Mobile Phlebotomy [facility] [address] [place] [address] [facility], [facility] Mobile Home Draw [address] [place] [address] 10/04/2023 9:10 AM EST Laboratory Lab Mobile Phlebotomy [facility] [address] [place] [address] [facility], [facility] Mobile Home Draw [address] [place] [address] 10/18/2023 9:10 AM EST Laboratory Lab Mobile Phlebotomy [facility] [address] [place] [address] [facility], [facility] Mobile Home Draw [address] [place] [address] 10/19/2023 4:20 PM EST Office Visit [address] [place] [address] Zenobia Lyon MD [address] [place] [address] [place] [address] 11/01/2023 9:10 AM EST Laboratory Lab Mobile Phlebotomy [facility] [address] [place] [address] Gmc, [facility] Mobile Home Draw [address] [place] [address] 11/15/2023 9:10 AM EST Laboratory Lab Mobile Phlebotomy [facility] [address] [place] [address] Gmc, G[facility] Mobile Home Draw [address] [place] [address] 11/29/2023 9:10 AM EST Laboratory Lab Mobile Phlebotomy [facility] [address] [place] [address] Gmc, Gml Mobile Home Draw [address] [place] [address] 12/13/2023 9:10 AM EDT Laboratory Lab Mobile Phlebotomy [facility] [address] [place] [address] [facility], [facility] Mobile Home Draw [address] [place] [address] 01/26/2024 4:20 PM EDT Office Visit [address] [place] [phone] Zenobia Lyon MD [address] [place] [address] [place] [address] Scheduled Procedures Name Priority Associated Diagnoses Date/Ti [...] Additional history exists CKD PHOS USE SMARTSET 58681 07/25/2024 10/2 12/2022, 09/07/2022, 09/05/2022, Additional history exists CKD HGB USE SMARTSET 06023 08/09/202408/09, 08/09/2023, 07/25/2023, Additional history exists COLONOSCOPY-EVERY [...] this encounter Medical Devices Implanted Type Area Feeder Catcher Device Identifier Shelf Expiration Date Model / Serial / Lot Screw T2 Alpha Lock 5x47.5mm - [id number] Implanted:Qty: 1 on 09/06/2022 by Sean Silva MD at [facility] Left: Leg Upper RICHELLE : TRAUMA 06/01/2032 [id number] / / [id number] documented as of this encounter Advance Directives Documents on File Type Date Recorded 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 Boss 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 POLST 10/17/2022 [place] OR DERS FOR LIFE-SUSTAINING TREATMENT POLST 09/10/2022 [place] OR DERS FOR LIFE-SUSTAINING TREATMENT Latest Code [...] Agen t (per Health Care Power of Retail Furniture Sales document) Reji Tello Dotts Adult Child First Alterna te Health Care Agent (per Health Care Power of Retail Furniture Sales document) Bowen Tello Adult Child First Alternate Health Care Agent (per Health Care Power of Retail Furniture Sales document) Care Teams Histologic Aide Relationship Specialty Start Date End Date Zenobia Lyon MD [address] [place] [address] [place] [address] PCP - General Family Medicine 05/22/23 documented as of this encounter
--- OUTSIDE RECORDS SUMMARY | 2023-08-22 03:43 | External Medical Summary | Summary of Care ---
Author Name Unknown Organization [facility] Address [address] [facility] [place] [address] Phone [phone] Care Team Providers Care Sample Preparation Supervisor Name Role Phone Zenobia Lyon MD Primary Care Provide r Encounter Details Date Type Department Care Team (Late st Contact Info) Description 08/08/2023 Orders Only [facility] [place] [address] [place] [address] Brennen Kay PA-C [address] [place] [address] Multiple myeloma not having achieved remission (HCC)* Allergies Active Allergy Reactions Criticality Noted Date Comments James Inhibitors 09/10/2002 cough on prinivil Hydrocodone 09/05/2022 Family states AMS change when taken Prednisone 05/26/2011 Blisters in throat Sulfa Antibiotics 03/19/2001 dysurea documented as of this encounter (statuses as of 08/08/2023) Medications Medication Sig Dispensed Refills Start Date [...] 75 MG Oral Tablet (pLAVix)Indications: Atherosclerosis of [place] coronary artery of [place] heart without angina pectoris Take 1 Tablet [...] as of this encounter (statuses as of 08/08/2023) Active Problems Patient Care Coordination No te [...] anti-helix, R superior cheek, central upper back 10/22) Gastroesophageal reflux disease with esophagitis 01/25/2016 Last [...] CORONARY ATHEROSCLEROSIS OF UNSPECIFIED TYPE OF VESSEL, [place] OR GRAFT Last Assessment & Plan: Stable. 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 documented as of this encounter (statuses as of 08/08/2023) Resolved Problems Problem Noted Date Diagnosed Date [...] without hematuria 05/30/2022 01/24/2023 Overview: Xavier to [facility] 04/20-04/29 urosepsis multi drug resistant E. [...] glenn ek & Lt. leg ; Rt. muslim 07/0207/18/2002 07/15/2015 Dyslipidemia, goal to be determined [...] as of this encounter (statuses as of 08/08/2023) Immunizations Name Administration Dates Next Due COVID-19 mRNA, LNP-s, No Pre serve, 2-Dose Series (Moderna) 08/24/2021,12/07/2020,11/09/2020 COVID-19, MRNA-LNP, 23-24, P F, 30 MCG/0.3 mL, 12 YRS AND ABOVE, IM (Spoonity-Comirnat) 07/19/2023 Covid-19, Mrna, Lnp-s, Pf, B ivalent, [...] Care Team (Late st Contact Info) Description 08/09/2023 9:10 AM EST Laboratory Lab Mobile Phlebotomy [facility] [address] [place] [address] Gmc, G[facility] Mobile Home Draw [address] [place] [address] 08/23/2023 9:10 AM EST Laboratory Lab Mobile Phlebotomy [facility] [address] [place] [address] Gm, Gml Mobile Home Draw [address] [place] [address] 08/29/2023 3:30 PM EST Office Visit Cardiology [address] [place] [address] Chris Choudhury PA-C [address] [place] [address] 09/06/2023 9:10 AM EST Laboratory Lab Mobile Phlebotomy [facility] [address] [place] [address] Gmc, Gml Mobile Home Draw [address] [place] [address] 09/20/2023 9:10 AM EST Laboratory Lab Mobile Phlebotomy [facility] [address] [place] [address] Gmc, Gml Mobile Home Draw [address] [place] [address] 10/04/2023 9:10 AM EST Laboratory Lab Mobile Phlebotomy [facility] [address] [place] [address] Gmc, Gml Mobile Home Draw [address] [place] [address] 10/18/2023 9:10 AM EST Laboratory Lab Mobile Phlebotomy [facility] [address] [place] [address] Gmc, Gml Mobile Home Draw [address] [place] [address] 10/19/2023 4:20 PM EST Office Visit [address] [place] [address] Zenobia Lyon MD [address] [place] [address] [place] [address] 11/01/2023 9:10 AM EST Laboratory Lab Mobile Phlebotomy [facility] [address] [place] [address] Gmc, Gml Mobile Home Draw [address] [place] [address] 11/15/2023 9:10 AM EST Laboratory Lab Mobile Phlebotomy [facility] [address] [place] [address] Gmc, Gml Mobile Home Draw [address] [place] [address] 11/29/2023 9:10 AM EST Laboratory Lab Mobile Phlebotomy [facility] [address] [place] [address] Gmc, Gml Mobile Home Draw [address] [place] [address] 12/13/2023 9:10 AM EDT Laboratory Lab Mobile Phlebotomy [facility] [address] [place] [address] Gmc, Gml Mobile Home Draw [address] [place] [address] 01/26/2024 4:20 PM EDT Office Visit Family Medicine [address] [place] [phone] Zenobia Lyon MD [address] [place] [address] [place] [address] Scheduled Orders Name Type Priority Associated Diagnoses Orde r Schedule TYPE AND SCREEN Lab Routine Multiple myeloma not having achieved remission (HCC) Expected: 08/09/2023 (Approximate), Expires: 09/07/2024 Scheduled Procedures Name Priority Associated Diagnoses Date/Ti [...] 0 01/14/2022, 12/24/2020, Additional history exists CKD HGB USE SMARTSET 44883 07/25/202407/25, 07/19/2023, 07/12/2023, Additional history exists CKD PHOS USE SMARTSET 60783 07/25/2024 1012/2022, 09/07/2022, 09/05/2022, Additional history exists COLONOSCOPY-EVERY 5 YRS AGES [...] this encounter Medical Devices Implanted Type Area Specialist Managers Device Identifier Shelf Expiration Date Model / Serial / Lot Screw T2 Alpha Lock 5x47.5mm - [id number] Implanted:Qty: 1 on 09/06/2022 by Sean Silva MD at OR [facility] Left: Leg Upper RICHELLE : TRAUMA 06/01/2032 [id number] / / [id number] documented as of this encounter Visit Diagnoses Diagnosis Multiple myeloma not having achieved remission (HCC)- Primary Multiple myeloma, without mention of having achieved remission documented in this encounter Advance Directives Documents on File Type Date Recorded 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 POLST 10/17/2022 [place] OR DERS FOR LIFE-SUSTAINING TREATMENT POLST 09/10/2022 [place] OR DERS FOR LIFE-SUSTAINING TREATMENT Latest Code [...] Agen t (per Health Care Power of Cuff Runner document) Reji Omer Dotts Adult Child First Alterna te Health Care Agent (per Health Care Power of Cuff Runner document) Bowen Tello Adult Child First Alternate Health Care Agent (per Health Care Power of Cuff Runner document) Care Teams Sample Preparation Supervisor Relationship Specialty Start Date End Date Zenobia Lyon MD [address] [place] [address] [place] [phone] PCP - General Family Medicine 05/22/23 documented as of this encounter
--- OUTSIDE RECORDS SUMMARY | 2023-08-22 03:43 | External Medical Summary ---
Author Name Unknown Address Unknown Organization K01:LABORATORY [facility] B LOOD BANK - [address] [place] [address] Laboratory Report Ordering Provider Test Date Status ROSAMARIA MOLINA 08/09/2023 08:28:00 Final Observation Date Value Abnormality Reference (Units ) Status ABO 08/09/2023 08:28:00 A Final RH 08/09/2023 08:28:00 Positive Final RED BLOOD CELL ANTIBODY SCREEN 08/09/2023 08:28:00 Negative Final SPECIMEN EXPIRATION DATE 08/09/2023 08:28:00 08/12/2023 23:59 Final Performing Location LABORATORY [facility] BLOOD BANK - [address] [place] [address]
--- OUTSIDE RECORDS SUMMARY | 2023-08-22 03:43 | External Medical Summary | Summary of Care ---
Author Name Unknown Organization [facility] Address [address] [place] [address] Phone [phone] Care Team Providers Care Dental Hygienist Name Role Phone Zenobia Lyon MD Primary Care Provide r Encounter Details Date Type Department Care Team (Late st Contact Info) Description 07/26/2023 Telephone Family [address] [phone] Muriel Moreira MD [address] [place] [address] [place] [address] Allergies Active Allergy Reactions Criticality Noted Date Comments James Inhibitors 09/10/2002 cough on prinivil Hydrocodone 09/05/2022 Family states AMS change when taken Prednisone 05/26/2011 Blisters in throat Sulfa Antibiotics 03/19/2001 dysurea documented as of this encounter (statuses as of 07/28/2023) Medications Medication Sig Dispensed Refills Start Date [...] 75 MG Oral Tablet (pLAVix)Indications: Atherosclerosis of [place] coronary artery of [place] heart without angina pectoris Take 1 Tablet [...] as of this encounter (statuses as of 07/28/2023) Active Problems Patient Care Coordination No te [...] Assessment & Plan: BP at goal -Continue cozaar norvasc Asthma, moderate persistent 07/12/2011 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 erectile dysfunction 08/19/2008 BPH without obstruction/lower urinary tract symp toms 04/24/2006 Last Assessment & Plan: Urinating without difficulty -Continue Dutesteride Elevated prostate specific antigen (PSA) 004 CORONARY ATHEROSCLEROSIS OF UNSPECIFIED TYPE OF VESSEL, [place] OR GRAFT Last Assessment & Plan: Stable. 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 documented as of this encounter (statuses as of 07/28/2023) Resolved Problems Problem Noted Date Diagnosed Date [...] without hematuria 05/30/2022 01/24/2023 Overview: Xavier to [facility] 04/20-04/29 urosepsis multi drug resistant E. [...] glenn ek & Lt. leg ; Rt. presybeterian 07/0207/18/2002 07/15/2015 Dyslipidemia, goal to be determined [...] as of this encounter (statuses as of 07/28/2023) Immunizations Name Administration Dates Next Due COVID-19 mRNA, LNP-s, No Pre serve, 2-Dose Series (Moderna) 08/24/2021,12/07/2020,11/09/2020 COVID-19, MRNA-LNP, 23-24, P F, 30 MCG/0.3 mL, 12 YRS AND ABOVE, IM ([facility]-Comirnat) 07/19/2023 Covid-19, Mrna, Lnp-s, Pf, B ivalent, [...] encounter Miscellaneous Notes * Telephone Encounter - Ludivina Shahid CMA - 07/28/2023 3:15 PM EDT I called and spoke to [facility]. * Telephone Encounter - Muriel Moreira MD - 07/26/2023 1:28 PM EDT Please CALL patient/ his [facility]. Blood counts and lab results are good this week. Hgb is 8.7. Recommend weekly CBC which can be done at home for close monitoring. Please call us or [facility] if he isnot feeling well and we could get labs done sooner if needed. documented in this encounter Plan of Treatment Upcoming Encounters Date Type Department Care Team (Late st Contact Info) Description 08/09/2023 9:10 AM EST Laboratory Lab Mobile Phlebotomy [facility] [address] [place] [address] [facility], [facility] Mobile Home Draw [address] [place] [address] 08/23/2023 9:10 AM EST Laboratory Lab Mobile Phlebotomy [facility] [address] [place] [address] [facility], [facility] Mobile Home Draw [address] [place] [address] 08/29/2023 3:30 PM EST Office Visit Cardiology [address] [place] [phone] Chris Choudhury PA-C [address] [place] [address] 09/06/2023 9:10 AM EST Laboratory Lab Mobile Phlebotomy [facility] [address] [place] [address] Gmc, Gml Mobile Home Draw [address] [place] [address] 09/20/2023 9:10 AM EST Laboratory Lab Mobile Phlebotomy [facility] [address] [place] [address] Gmc, Gml Mobile Home Draw [address] [place] [address] 10/04/2023 9:10 AM EST Laboratory Lab Mobile Phlebotomy [facility] [address] [place] [address] Gmc, Gml Mobile Home Draw [address] [place] [address] 10/18/2023 9:10 AM EST Laboratory Lab Mobile Phlebotomy [facility] [address] [place] [address] Gm, Gml Mobile Home Draw [address] [place] [address] 10/19/2023 4:20 PM EST Office Visit Family [address] [address] Zenobia Lyon MD [address] [place] [address] [place] [address] 11/01/2023 9:10 AM EST Laboratory Lab Mobile Phlebotomy [facility] [address] [place] [address] Gmc, Gml Mobile Home Draw [address] [place] [address] 11/15/2023 9:10 AM EST Laboratory Lab Mobile Phlebotomy [facility] [address] [place] [address] [facility] Mobile Home Draw [address] [place] [address] 11/29/2023 9:10 AM EST Laboratory Lab Mobile Phlebotomy [facility] [address] [place] [address] [facility] Mobile Home Draw [address] [place] [address] 12/13/2023 9:10 AM EDT Laboratory Lab Mobile Phlebotomy [facility] [address] [place] [address] [facility] Mobile Home Draw [address] [place] [address] 01/26/2024 4:20 PM EDT Office Visit [address] [place] [phone] Zenobia Lyon MD [address] [place] [address] [place] [address] Scheduled Procedures Name Priority Associated Diagnoses Date/Ti [...] 04/17/2021, 03/09/2020, Additional history exists Albumin/Creatinine Ratio 01/27/202401/26/ 023, 01/14/2022, 08/14/2017, Additional history exists DIABETES-EYE EXAM 07/19/2024 07/19/2023 (Do ne elsewhere), 10/28/2021, 11/02/2020, Additional history exists Diabetic Foot Exam 07/19/2024 07/19/2023, 0 01/14/2022, 12/24/2020, Additional history exists CKD HGB USE SMARTSET 52159 07/25/202407/25, 07/19/2023, 07/12/2023, Additional history exists CKD PHOS USE SMARTSET 11213 07/25/202407/03, 09/07/2022, 09/05/2022, Additional history exists COLONOSCOPY-EVERY 5 [...] this encounter Medical Devices Implanted Type Area Networking Engineer Device Identifier Shelf Expiration Date Model / Serial / Lot Screw T2 Alpha Lock 5x47.5mm - [id number] Implanted:Qty: 1 on 09/06/2022 by Sean Silva MD at [facility] Left: Leg Upper RICHELLE : TRAUMA 06/01/2032 [id number] / / [id number] documented as of this encounter Advance Directives Documents on File Type Date Recorded Patient Top Collar Maker Expl anation POLST 10/17/2022 [place] [facility] FOR LIFE-SUSTAINING TREATMENT POLST 09/10/2022 [place] OR DERS FOR LIFE-SUSTAINING TREATMENT Latest Code [...] Agen t (per Health Care Power of Hunting Guide document) Reji Tello Dotts Adult Child First Alterna te Health Care Agent (per Health Care Power of Hunting Guide document) Bowen Tello Adult Child First Alternate Health Care Agent (per Health Care Power of Hunting Guide document) Care Teams Dental Hygienist Relationship Specialty Start Date End Date Zenobia Lyon MD [address] [place] [address] [place] [phone] PCP - General Family Medicine 05/22/23 documented as of this encounter
--- OUTSIDE RECORDS SUMMARY | 2023-08-22 03:43 | External Medical Summary ---
Author Name Unknown Address Unknown Organization [id number]:[facility] [place] [address] [place] [id number] Laboratory Report Ordering Provider Test Date Status DEB BULL 08/09/2023 08:28:00 Final Observation Date Value Abnormality Reference (Units ) Status WBC, Total 08/09/2023 08:28:00 3.71 Below low normal 4.00-10.80 (K/uL) Final RBC 08/09/2023 08:28:00 2.53 4.50-5.25 (M/uL) Final Hemoglobin 08/09/2023 08:28:00 8.1 Below low normal 14.0-16.8 (g/dL) Final HCT 08/09/2023 08:28:00 28.1 Below low normal 40.0-48.4 (%) Final MCV 08/09/2023 08:28:00 111.1 82.0-99.5 (fL) Final MCH 08/09/2023 08:28:00 32.0 27.0-34.0 (pg) Final MCHC 08/09/2023 08:28:00 28.8 32.0-36.0 (g/dL) Final RDW 08/09/2023 08:28:00 18.6 11.5-15.5 (%) Final Platelets 08/09/2023 08:28:00 200 140-400 (K/uL) Final MPV 08/09/2023 08:28:00 10.0 6.6-11.1 (fL) Final Nucleated erythrocytes/100 leukocytes [Ratio] in Blood by Automated count 08/09/2023 08:28:00 0 <=0 (/100 WBCs) Final Performing Location [facility] [place] [address] [place] [id number]
--- OUTSIDE RECORDS SUMMARY | 2023-08-22 03:44 | External Medical Summary | Summary of Care ---
Author Name Unknown Organization [facility] Address [address] [address] Phone [phone] Care Team Providers Care Supervisor [employer] Name Role Phone Zenobia Lyon MD Primary Care Provide r Reason for Visit * Reason Onset Date Comments [facility]: Maintenance 07/21/2023 Encounter Details Date Type Department Care Team Description 07/21/2023 Telephone [facility], [facility] [address] [place] [address] [facility], Nurse [facility] [address] [place] [address] [facility]: Maintenance Allergies Active Allergy Reactions Severity Noted Date Comments James Inhibitors 09/10/2002 cough on prinivil Hydrocodone 09/05/2022 Family states AMS change when taken Prednisone 05/26/2011 Blisters in throat Sulfa Antibiotics 03/19/2001 dysurea documented as of this encounter (statuses as of 07/21/2023) Medications Medication Sig Dispensed Refills Start Date [...] a meal.. 30 Tablet 5 03/22/2023 Active traMADol HCl 50 MG Oral Tablet (Ultram) Take 1 Tablet by mouth every 6 hours as needed. 0 Active Ondansetron HCl 4 MG Oral Tablet [...] per week 36 Tablet 3 06/21/2023 Active Furosemide 40 MG Oral Tablet (Lasix) Take 1 Tablet by mouth in the morning. 100 Tablet 06/21/2023 Active Pantoprazole Sodium 40 MG Oral Tablet Delayed Release (Protonix)Indication s:GERD (gastroesophageal reflux disease) Take 1 Tablet by mouth daily. 90 Tablet 06/21/2023 Active Clopidogrel Bisulfate 75 MG Oral Tablet (pLAVix)Indications: Atherosclerosis of [place] coronary artery of [place] heart without angina pectoris Take 1 Tablet by mouth in the morning. 90 Tablet 3 06/21/2023 Active Metoprolol Succinate ER 50 MG Oral Tablet Extended Release 24 Hour (toPROL XL)Indications:Tachy -lorna syndrome (HCC),Heart failure, systolic, due to CAD Take 1 Tablet by mouth in the morning. 90 Tablet 06/21/2023 Active Losartan Potassium 50 MG Oral Tablet (Cozaar)Indications: Heart failure, systolic, due to CAD Take 1 Tablet by mouth in the morning. 90 Tablet 06/21/2023 Active Potassium Chloride Emma ER 20 MEQ Oral Tablet Extended ReleaseIndications:H ypokalemia Take 1 Tablet by mouth in the morning. 90 Tablet 06/21/2023 Active Dutasteride 0.5 MG Oral Capsule (Avodart)Indications :BPH with obstruction/lower urinary tract symptoms Take 1 Capsule by mouth in the morning. 90 Capsule 06/21/2023 Active Methenamine Hippurate 1 GM Oral Tablet (Hiprex) Take 1 Tablet by mouth in the morning and 1 Tablet before bedtime. 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 O2 stable on room air -continue advair. BID and albuterol prn Other specified peripheral vascular dise ases 06/22/2020 DISH (diffuse idiopathic skeletal hypero stosis) 05/25/2020 Skin lesion 03/06/2020 Chronic atrial fibrillation 12/04/2019 Primary open-angle glaucoma, left eye, m ild stage 12/04/2019 Chronic prostatitis with hematuria 06/26 Hx of nonmelanoma skin cancer 01/02/2018 Overview: basal cell carcinoma (R anti-helix, R superior cheek, central upper back 07/23) Gastroesophageal reflux disease with eso phagitis 01/25/2016 Last Assessment & Plan: Asymptomatic -continue pantoprazole Automatic implantable cardioverter-defib rillator in situ 03/25/2015 Overview: Biventricular Encounter for examination fo r normal comparison and control in clinical research program 03/25/2015 Overview: [employer] Product Surveillance Registry PI: Kylah Lilly IV, MD Diagnosis changed due to Research Module. Go to Snapshot for study details. Longstanding persistent atrial fibrillat ion 02/27/2015 Last Assessment & Plan: Not on AC-? Possibly due to hx of GIB. 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 erectile dysfunction 08/19/2008 BPH without obstruction/lower urinary tr act symptoms 04/24/2006 Last Assessment & Plan: Urinating without difficulty -Continue Dutesteride Elevated prostate specific antigen (PSA) 02/03/2004 CORONARY ATHEROSCLEROSIS OF UNSPECIFIED TYPE OF VESSEL, LOWER ELWHA OR GRAFT Last Assessment & Plan: Stable. 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 documented as of this encounter (statuses as of 07/21/2023) Resolved Problems Problem Noted Date Resolved Date Hypertensive heart and kidne y disease without heart failure and with stage 3a chronic kidney disease 11/14/2022 01/12/2023 Overview: Per CKD protocol Dementia in other diseases c lassified elsewhere, unspecified severity, with psychotic disturbance 10/12/2022 01/24/2023 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 E-coli UTI 09/21/2022 01/24/2023 Pain of left thigh 09/05/2022 01/24/2023 Urinary tract infection without hematuria 202101/24/2023 Overview: Xavier to [facility] 04/20-04/29 urosepsis multi drug resistant E. Coli treated with ceftriaxone Last Assessment & Plan: Resolved -following with urology-put on methenamine for maintenance . Chronic diastolic CHF (congestive heart failure) 05/04/2022 01/12/2023 Upper GI bleed 08/06/2021 05/30/2022 Gastric ulcer without hemorrhage or perforation 08/06/2021 01/24/2023 Duodenal ulcer 08/06/2021 01/24/2023 Chronic kidney disease, stage 3a 02/09/2021 01/24/2023 Overview: Per CKD protocol Hypertensive heart disease with heart failure 05/13/2022 Overview: more specific combo Chronic kidney disease, stage 3 unspecified 12/0101/14/2021 Hypertensive kidney disease with stage 3a chronic kidney disease 12/24/2020 05/13/2022 Overview: More specific combo on PL Basal cell carcinoma (BCC) of right cheek 201806/05/2019 Hypertensive heart and kidne y disease with chronic systolic congestive heart failure and stage 3 chronic kidney disease 06/26/2018 01/14/2021 Overview: Per CKD protocol Acute posthemorrhagic anemia 06/26/201803/2019 Bladder spasm 06/26/2018 01/24/2023 Hearing loss 03/02/2016 11/24/2017 Hypokalemia 10/30/2015 11/24/2017 Biventricular implantable cardioverter-defibrill ator in situ 09/08/2015 01/14/2019 Heart failure, systolic, due to CAD 02/27/2015 10/29/2022 Last Assessment & Plan: Euvolemic today. Lasix dose adjusted in the hospital 04/22-now alternating 40 mg with 80 mg daily CKD (chronic kidney disease), stage III 01/31/20 15 02/02/2016 Overview: GFR 57.9 Atrial fibrillation 03/15/2011 12/31/2013 ADVANCE DIRECTIVE INFORMATION 02/08/2010 Overview: Yes, Copy scanned at patient level [...] ICD-10 update of inactive term Coronary atherosclerosis 09/10/2002 012 HYPERTENSION NOS 08/02/2002 08/25/2009 Overview: Modified per [...] of inactive term Compression fx, thoracic spine 1 10/14/2016 Overview: T12 CKD (chronic kidney disease), stage III 02/22/2018 Moderate persistent asthma without complication 01/14/2019 Hypertensive kidney disease with CKD stage III 06/11/2019 documented as of this encounter (statuses as of 07/21/2023) Immunizations Name Administration Dates Next Due COVID-19 mRNA, LNP-s, No Pre serve, 2-Dose Series (Moderna) 08/24/2021,12/07/2020,11/09/2020 COVID-19, MRNA-LNP, 23-24, P F, 30 MCG/0.3 mL, 12 YRS AND ABOVE, IM ([employer]omics-Comirnat) 07/19/2023 Covid-19, Mrna, Lnp-s, Pf, B ivalent, [...] = 0.6 oz pur e alcohol) rare Sex Assigned at Date Recorded Male 01/24/2023 3:56 PM E DT Job Start Date Occupation Industry Not on [...] encounter Miscellaneous Notes * Telephone Encounter - Ami Black RN - 07/21/2023 8:12 AM EDT [facility] patient's calling to let us know that her is in [facility]. He was getting blood tranfusion. She wanted to make sure Lila RN visit was cancelled. She thinks he might be discharged today. She will call us when he is discharged so we can set up home visits. Routed to care team Ami Black. RN [facility] RN [phone]' documented in this encounter Plan of Treatment Upcoming Encounters Date Type Specialty Care Team Description 07/26/2023 Laboratory [facility] [address] [place] [address] 08/09/2023 Laboratory Laboratory [facility] [address] [place] [address] 08/23/2023 Laboratory Laboratory [facility] [address] [place] [address] 08/29/2023 Office Visit Cardiology Chris Choudhury PA-C [address] [facility] [place] [address] 09/06/2023 Laboratory Laboratory [facility] [address] [place] [address] 09/20/2023 Laboratory Laboratory [facility] [address] [place] [address] 10/04/2023 Laboratory Laboratory [facility] [address] [place] [address] 10/18/2023 Laboratory Laboratory [facility] [address] [place], [place] [id number] 10/19/2023 Office Visit Family Medicine Zenobia Lyon MD [address] [place] [address] [place] [address] 11/01/2023 Laboratory Laboratory Processing [facility] [address] [place] [address] 11/15/2023 Laboratory Laboratory Processing [facility] [address] [place] [address] 11/29/2023 Laboratory Laboratory Processing [facility] [address] [place] [address] 12/13/2023 Laboratory Laboratory Processing [facility] [address] [place] [address] Scheduled Procedures Name Priority Associated Diagnoses Date/Ti me COLONOSCOPY FLEXIBLE PROXIMA L DIAGNOSTIC Recall History of colonic polyps Health Maintenance Due Date Last Done Comments Alpha-1 Antitrypsin 1953 DTaP,Tdap,and Td Vaccines (2 - Td or Tdap) 01/11/2023 01/11/2013, 04/01/2003, 04/01/2003 HbA1c 07/27/2023 01/25/2023, 03/2022, 01/14/2022, Additional history exists O2 ASSESSMENT COMPLETED IN PAST YEAR FOR COPD 09/06/2023 09/06/2022 CKD PHOS USE SMARTSET 25349 09/07/202304/2022, 09/05/2022, 01/14/2022, Additional history exists Depression Screening 01/25/2024 01/24/2023 DIG LEVEL FOR MEDICATION MONITORING YEARLY 01/26/2024 01/25/2023, 04/17/2021, 03/09/2020, Additional history exists Albumin/Creatinine Ratio 01/27/2024 023, 01/14/2022, 08/14/2017, Additional history exists CKD HGB USE SMARTSET 54942 07/19/202407/19, 07/12/2023, 07/12/2023, Additional history exists DIABETES-EYE EXAM 07/19/2024 07/19/2023 (Do ne elsewhere), 10/28/2021, 11/02/2020, Additional history exists Diabetic Foot Exam 07/19/2024 07/19/2023, 0 01/14/2022, 12/24/2020, Additional history exists COLONOSCOPY-EVERY 5 YRS AGES [...] on patient's age to complete this topic Hepatitis B Aged Out No longer eligi ble based on patient's age to complete this topic MENINGOCOCCAL (MENACTRA/MENVEO) Aged Out No longer eligible based on patient's age to complete this topic documented as of this encounter Medical Devices Implanted Type Area Telephone Assembler Device Identifier Shelf Expiration Date Model / Serial / Lot Screw T2 Alpha Lock [id number] - [id number] Implanted:Qty: 1 on 09/06/2022 by Sean Silva MD at [facility] Left: Leg Upper RICHELLE : TRAUMA 06/01/2032 [id number] / / [id number] documented as of this encounter Advance Directives Documents on File Type Date Recorded Patient Assistant Prosecuting Attorney Expl anation POLST 10/17/2022 [place] [facility] FOR LIFE-SUSTAINING TREATMENT POLST 09/10/2022 [place] [facility] FOR LIFE-SUSTAINING TREATMENT Latest Code Status [...] Agen t (per Health Care Power of Microelectronics Engineer document) Reji Tello Dotts Adult Child First Alterna te Health Care Agent (per Health Care Power of Microelectronics Engineer document) Bowen Tello Adult Child First Alternate Health Care Agent (per Health Care Power of Microelectronics Engineer document) Care Teams Supervisor [employer] Relationship Specialty Start Date End Date Zenobia Lyon MD [address] [place] [address] [place] [address] PCP - General Family Medicine 05/22/23 documented as of this encounter
--- OUTSIDE RECORDS SUMMARY | 2023-08-22 03:44 | External Medical Summary | Summary of Care ---
Author Name Unknown Organization [facility] Address [address] [address] Phone [phone] Care Team Providers Care Speech Lang Path Therapist Name Role Phone Zenobia Lyon MD Primary Care Provide r Reason for Visit * Reason Onset Date Comments [facility]: Maintenance 07/22/2023 Encounter Details Date Type Department Care Team Description 07/22/2023 Scheduled Telephone [facility], [facility] [address] [facility] [place] [address] [facility], Nurse [facility] [address] [facility] [place] [address] Allergies Active Allergy Reactions Severity Noted Date Comments James Inhibitors 09/10/2002 cough on prinivil Hydrocodone 09/05/2022 Family states AMS change when taken Prednisone 05/26/2011 Blisters in throat Sulfa Antibiotics 03/19/2001 dysurea documented as of this encounter (statuses as of 07/22/2023) Medications Medication Sig Dispensed Refills Start Date [...] test blood sugar as needed 100 Strip 05/20/2022 Active OneTouch UltraSoft LancetsIndications:T ype 2 [...] by mouth in the morning. 100 Tablet 3 06/21/2023 Active Pantoprazole Sodium 40 MG Oral Tablet Delayed Release (Protonix)Indication s:GERD (gastroesophageal reflux disease) Take 1 Tablet by mouth daily. 90 Tablet 1 06/21/2023 Active Clopidogrel Bisulfate 75 MG Oral Tablet (pLAVix)Indications: Atherosclerosis of [place] coronary artery of [place] heart without angina pectoris Take 1 Tablet [...] before bedtime. 180 Tablet 3 06/21/2023 Active documented as of this encounter (statuses as of 07/22/2023) Active Problems Patient Care Coordination No te [...] CORONARY ATHEROSCLEROSIS OF UNSPECIFIED TYPE OF VESSEL, OHOG[place]IUT OR GRAFT Last Assessment & Plan: Stable. 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 [...] glenn ek & Lt. leg ; Rt. restoration 07/0207/18/2002 07/15/2015 Dyslipidemia, goal to be determined [...] as of this encounter (statuses as of 07/22/2023) Immunizations Name Administration Dates Next Due COVID-19 mRNA, LNP-s, No Pre serve, 2-Dose Series (Moderna) 08/24/2021,12/07/2020,11/09/2020 COVID-19, MRNA-LNP, 23-24, P F, 30 MCG/0.3 mL, 12 YRS AND ABOVE, IM (DineroMail-Comirnat) 07/19/2023 Covid-19, Mrna, Lnp-s, Pf, B ivalent, [...] encounter Miscellaneous Notes * Telephone Encounter - Shira Majano RN - 07/22/2023 11:16 AM EDT [facility] Telephonic Nurse Follow-Up Call [facility] Subprogram: [facility] at Home Follow Up Call Type: Weekend Call Acute issue requiring follow-up call: Other: Post [place] admission for blood transfusion, Possible CHF exac. Objective: 07/19/2023 2:56 PM 06/22/2023 1:43 PM 06/15/2023 10:42 PM 06/06/2023 11:20 AM 05/15/2023 10:34 AM VITALS ACROSS ENCOUNTERS BP 120/60 158/68 134/68 128/60 144/68 Pulse 72 78 74 74 68 Weight 90.7 kg BMI 27.89 kg/m2 Lab Results Component Value Date BLOOD, URINE - [facility] Negative 05/12/2023 PROTEIN - [facility] 8.1 07/12/2023 PROTEIN, URINE - [facility] 30 (A) 05/12/2023 ESTERASE, URINE - [facility] Negative 05/12/2023 WBC AUTO - [facility] 5.69 07/19/2023 WBC, URINE - [facility] 0-2 05/12/2023 NITRITE, URINE - [facility] Negative 05/12/2023 Lab Results Component Value Date WBC AUTO - [facility] 5.69 07/19/2023 HGB - [facility] 6.7 (LL) 07/19/2023 PLATELET AUTO - [facility] 263 07/19/2023 Lab Results Component Value Date SODIUM - [facility] 145 07/12/2023 POTASSIUM - [facility] 4.3 07/12/2023 CO2 - [facility] 24 07/12/2023 CREATININE - [facility] 1.5 (H) 07/12/2023 ESTIMATED GLOMERULAR FILTRATION RATE - [facility] 44 (L) 07/12/2023 ALBUMIN - [facility] 3.2 (L) 07/12/2023 AST - [facility] 9 (L) 07/12/2023 ALT - [facility] 9 (L) 07/12/2023 ALKALINE PHOSPHATASE - [facility] 37 07/12/2023 No results found for: PRO BNP, LEFT VENTRICULAR EJECTION FRACTION Remote Patient Monitoring: NONE Oxygen Needs: NO supplemental oxygen needs identified DME Needs: NO DME needs identified Medications: No medication or dose adjustments made during acute episode . Per appt note, attending doc at [facility] felt CHF exacerbation, added every other day Lasix in addition to baseline. Subjective: Condition Status: unknown Current Concerns: Cell number does not have voice mail set up Called home number, answered. She can't really say how patient is doing, he came home last night, ate something, went to bed and is still sleeping. She will call [facility] if any concerns once he wakes up Reminded of visit tomorrow with [facility] nurse, they will call before coming to confirm a good time. Shewas OK with visit Disposition: Issue resolved. All appropriate follow up scheduled. Future Visits Scheduled: Future Appointments-next 60 days Date/Time Provider Specialty Dept Phone 07/23/2023 10:00 AM Nurse [facility] [phone] 07/25/2023 3:40 PM (Arrive by 3:25 PM) Muriel Marrero MD Family Medicine [phone] 07/26/2023 9:10 AM [facility] Laboratory Processing [phone] 08/09/2023 9:10 AM [facility] Laboratory Processing [phone] 08/23/2023 9:10 AM [facility] Laboratory Processing [phone] 08/29/2023 3:30 PM (Arrive by 3:15 PM) Chris Choudhury PA-C Cardiology [phone] 09/06/2023 9:10 AM [facility] Laboratory Processing [phone] 09/20/2023 9:10 AM [facility] Laboratory Processing [phone] 10/04/2023 9:10 AM [facility] Laboratory Processing [phone] 10/18/2023 9:10 AM [facility] Laboratory Processing [phone] 10/19/2023 4:20 PM (Arrive by 4:05 PM) Zenobia Lyon MD Family Medicine [phone] 11/01/2023 9:10 AM [facility] Laboratory Processing [phone] 11/15/2023 9:10 AM [facility] Laboratory Processing [phone] 11/29/2023 9:10 AM [facility] Laboratory Processing [phone] 12/13/2023 9:10 AM [facility] Laboratory Processing [phone] Shira Majano, RN documented in this encounter Plan of Treatment Upcoming Encounters Date Type Specialty Care Team Description 07/23/2023 Home Visit [facility], Nurse [facility] [address] [place] [address] 07/25/2023 Office Visit Family Medicine Muriel Moreira MD [address] [place] [address] [place] [phone] 07/26/2023 Laboratory Laboratory Processing [facility] [address] [place], [place] [phone] 08/09/2023 Laboratory Laboratory Processing [facility] [address] [place] [address] 08/23/2023 Laboratory Laboratory Processing [facility] [address] [place] [address] 08/29/2023 Office Visit Cardiology [facility] [address] [facility] [address] 09/06/2023 Laboratory Laboratory Processing [facility] [address] [place] [address] 09/20/2023 Laboratory Laboratory Processing [facility] [address] [place] [address] 10/04/2023 Laboratory Laboratory Processing [facility] [address] [place] [address] 10/18/2023 Laboratory Laboratory Processing [facility], [facility] Mobile Home Draw [address] [place] [address] 10/19/2023 Office Visit Family Medicine Zenobia Lyon MD [address] [place] [address] [place] [phone] 11/01/2023 Laboratory Laboratory Processing [facility], [facility] Mobile Home Draw [address] [place] [address] 11/15/2023 Laboratory Laboratory Processing [facility], [facility] Home Draw [address] [place] [address] 11/29/2023 Laboratory Laboratory Processing [facility], [facility] Draw [address] [place] [address] 12/13/2023 Laboratory Laboratory Processing [facility], [facility] Mobile Home Draw [address] [place] [address] Scheduled Procedures Name Priority Associated Diagnoses Date/Ti me COLONOSCOPY FLEXIBLE PROXIMA L DIAGNOSTIC Recall History of colonic polyps Health Maintenance Due Date Last Done Comments Alpha-1 Antitrypsin 1953 DTaP,Tdap,and Td Vaccines (2 - Td or Tdap) 01/11/2023 01/11/2013, 04/01/2003, 04/01/2003 HbA1c 07/27/2023 01/25/2023, 03/2022, 01/14/2022, Additional history exists O2 ASSESSMENT COMPLETED IN PAST YEAR FOR COPD 09/06/2023 09/06/2022 CKD PHOS USE SMARTSET 48519 09/07/202304/2022, 09/05/2022, 01/14/2022, Additional history exists Depression Screening 01/25/2024 01/24/2023 DIG LEVEL FOR MEDICATION MONITORING YEARLY 01/26/2024 01/25/2023, 04/17/2021, 03/09/2020, Additional history exists Albumin/Creatinine Ratio 01/27/2024 023, 01/14/2022, 08/14/2017, Additional history exists CKD HGB USE SMARTSET 08267 07/19/202407/19, 07/12/2023, 07/12/2023, Additional history exists DIABETES-EYE [...] this encounter Medical Devices Implanted Type Area Flat Cutter Device Identifier Shelf Expiration Date Model / Serial / Lot Screw T2 Alpha Lock 5x47.5mm - [id number] Implanted:Qty: 1 on 09/06/2022 by eSan Silva MD at [facility] Left: Leg Upper RICHELLE : TRAUMA 06/01/2032 [id number] / / [id number] documented as of this encounter Advance Directives Documents on File Type Date Recorded Patient Nurse Case Manager Expl anation POLST 10/17/2022 [place] DERS FOR LIFE-SUSTAINING TREATMENT POLST 09/10/2022 [place] OR DERS FOR LIFE-SUSTAINING TREATMENT Latest Code [...] Agen t (per Health Care Power of Production Painter document) Reji Tello Dotts Adult Child First Alterna te Health Care Agent (per Health Care Power of Production Painter document) Bowen Tello Adult Child First Alternate Health Care Agent (per Health Care Power of Production Painter document) Care Teams Speech Lang Path Therapist Relationship Specialty Start Date End Date Zenobia Lyon MD [address] [place] [address] [place] [phone] PCP - General Family Medicine 05/22/23 documented as of this encounter
--- OUTSIDE RECORDS SUMMARY | 2023-08-22 03:44 | External Medical Summary ---
Author Name Unknown Address Unknown Organization K01:[facility] [address] [place] [address] Laboratory Report Ordering Provider Test Date Status KEVIN JONES 07/25/2023 16:19:41 Final Observation Date Value Abnormality Reference (Units ) Status Phosphate 07/25/2023 16:19:41 3.3 2.5-4.8 (m g/dL) Final Performing Location [facility] - [address] [place] [address]
--- OUTSIDE RECORDS SUMMARY | 2023-08-22 03:44 | External Medical Summary | Summary of Care ---
Author Name Unknown Organization [facility] Address [address] [place] [address] Phone [phone] Care Team Providers Care Software Quality Engineer Name Role Phone Zenobia Lyon MD Primary Care Provide r Reason for Visit * Reason Comments [facility]: Acute Post ER visit Encounter Details Date Type Department Care Team (Late st Contact Info) Description 07/23/2023 10:00 AM EDT [facility], [facility] [address] [facility] [place] [address] [facility], Nurse [facility] [address] [place] [address] Allergies Active Allergy Reactions Criticality Noted Date Comments James Inhibitors 09/10/2002 cough on prinivil Hydrocodone 09/05/2022 Family states AMS change when taken Prednisone 05/26/2011 Blisters in throat Sulfa Antibiotics 03/19/2001 dysurea documented as of this encounter (statuses as of 07/23/2023) Medications Medication Sig Dispensed Refills Start Date End Date Status OXYGENIndications:H ypoxia,Acute systolic CHF (congestive heart failure) (HCC) 2L/min via nasal cannula 24 hours continous, please provide portables as well 1 Each 0 07/30/20 14 Active Latanoprost 0.005 % Ophthalmic Solution (Xalatan) Instill into both eyes 1 Drop in the morning. 2.5 mL 0 05/13/20 Active Ventolin HFA 108 (90 Base) MCG/ACT Inhalation Aerosol SolutionIndications :Moderate persistent asthma without complication Inhale by mouth 2 Puffs 4 times a day . 18 g 0 05/13/20 22 Active Magnesium Oxide 400 MG Oral TabletIndications:T rifascicular block,Coronary atherosclerosis one per day 34 Tablet 11 05/13/20 22 Active Multivitamin Adult Oral Tablet Take by mouth daily . 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 100 Tablet 0 10/28/19 23 Active glipiZIDE ER 5 MG Oral Tablet Extended Release 24 Hour (glipiZIDE XL) Take 1 Tablet by mouth in the morning. 30 minutes before a meal.. 30 Tablet 5 03/22/20 23 Active Ondansetron HCl 4 MG Oral Tablet Take 1 Tablet by mouth every 6 hours as needed for Nausea. 20 Tablet 0 05/15/20 23 Active Fluticasone-Salmete rol 250-50 MCG/ACT Inhalation Aerosol Powder Breath Activated (Wixela Inhub)Indications:A sthma, moderate persistent Inhale 1 Puff by mouth in the morning and 1 Puff before bedtime. 3 Each 05/15/20 23 Active MEDICAL INSTRUCTIONS 1) obtain a I can cause for 2 units packed red blood cells 2) transfuse 2 units of packed red blood cells according to the infusion centers policies 3) provide 650 mg of Tylenol approximately 30 minutes before starting the infusion Do not start before May 19, 2023. 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 100 Tablet 06/21/20 23 Active Pantoprazole Sodium 40 MG Oral Tablet Delayed Release (Protonix)Indicatio ns:GERD (gastroesophageal reflux disease) Take 1 Tablet by mouth daily. 90 Tablet 1 06/21/20 Active Clopidogrel Bisulfate 75 MG Oral Tablet (pLAVix)Indications :Atherosclerosis of [place] coronary artery of [place] heart without angina pectoris Take 1 Tablet by mouth in the morning. 90 Tablet 3 06/21/20 Active Metoprolol Succinate ER 50 MG Oral Tablet Extended Release 24 Hour (toPROL XL)Indications:Tach y-lorna syndrome (HCC),Heart failure, systolic, due to CAD Take 1 Tablet by mouth in the morning. 90 Tablet 3 06/21/20 Active Losartan Potassium 50 MG Oral Tablet (Cozaar)Indications :Heart failure, systolic, due to CAD Take 1 Tablet by mouth in the morning. 90 Tablet 06/21/20 23 Active Potassium Chloride Emma ER 20 MEQ Oral Tablet Extended ReleaseIndications: Hypokalemia Take 1 Tablet by mouth in the morning. 90 Tablet 06/21/20 Active Dutasteride 0.5 MG Oral Capsule (Avodart)Indication s:BPH with obstruction/lower urinary tract symptoms Take 1 Capsule by mouth in the morning. 90 Capsule 1 06/21/20 23 Active Methenamine Hippurate 1 GM Oral Tablet (Hiprex) Take 1 Tablet by mouth in the morning and 1 Tablet before bedtime. 180 Tablet 06/21/20 Active traMADol HCl 50 MG Oral Tablet (Ultram) Take 1 Tablet by mouth every 6 hours as needed. 0 023 Discontinued documented as of this encounter (statuses as of 07/23/2023) Active Problems Patient Care Coordination No te [...] control in clinical research program 03/25/2015 Overview: [facility] Product Surveillance Registry PI: Kylah Lilly IV, [...] CORONARY ATHEROSCLEROSIS OF UNSPECIFIED TYPE OF VESSEL, [place] OR GRAFT Last Assessment & Plan: Stable. 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 documented as of this encounter (statuses as of 07/23/2023) Resolved Problems Problem Noted Date Diagnosed Date [...] 01/24/2023 Overview: Xavier to [facility] 04/20-04/29 urosepsis multi drug resistant E. Coli [...] as of this encounter (statuses as of 07/23/2023) Immunizations Name Administration Dates Next Due COVID-19 mRNA, LNP-s, No Pre serve, 2-Dose Series (Moderna) 08/24/2021,12/07/2020,11/09/2020 COVID-19, MRNA-LNP, 23-24, P F, 30 MCG/0.3 mL, 12 YRS AND ABOVE, IM ([employer]ends-Comirnat) 07/19/2023 Covid-19, Mrna, Lnp-s, Pf, B ivalent, [...] on file documented as of this encounter Last Filed Vital Signs Vital Sign Reading Time Taken Comments Blood Pressure 154/64 07/23/2023 12:16 PM EDT Pulse 76 07/23/2023 12:16 PM EDT Temperature 36.3 C (97.4 F) 07/23/2023 12:16 PM E DT Respiratory Rate 18 07/23/2023 12:16 PM EDT Oxygen Saturation 95% 07/23/2023 12:16 PM EDT Inhaled Oxygen Concentration - - Weight - - Height - - Body Mass Index - - documented in this encounter Functional Status Functional Status Response [...] No 09/05/2022 documented as of this encounter Progress Notes * Velma Carpio RN - 07/23/2023 8:52 AM EDT [facility] Ibm Bpm DeveloperSr. Media Manager Visit Date: 07/23/2023 Time: 8:53 AM Name: Marshall Tello Sr. : 1935 Situation: BENJAMIN 1 Background: 07/20- - [facility] - Anemia and likely CHF exacerbation: H/H: 5.9, transfused with 2u pRBC, received lasix 40mg iv between units, Hgb was 6.7 previous day and arrangements were being made for him to receive transfusion but he became sob and presented to ER, has been receiving weekly transfusions at [facility] in the setting of multiple myeloma Is scheduled for routine cbc draws with Mobile Lab Lasix was increased to 40mg daily with additional 40mg every other day (will be taking // for convenience) Assessment: Feeling tired today but was able to walk across street to [place] this morning reports pt often sob but was not sob this morning walking to [place] Denies c/o today Lungs cta No edema Abdomen soft Breathing at baseline Pleasantly confused, sleeping much of day and night Appetite good Problems/Symptoms: Review of Systems Constitutional: Negative. HENT: Negative. Eyes: Negative. Respiratory: Positive for shortness of breath (occasional COLIN). Cardiovascular: Negative. Gastrointestinal: Negative. Endocrine: Negative. Genitourinary: Negative. Musculoskeletal: Negative. Skin: Negative. Allergic/Immunologic: Negative. Neurological: Positive for weakness (mild). Hematological: Negative. Psychiatric/Behavioral: Positive for confusion (at baseline). Physical Exam: BP 154/64 | Pulse 76 | Temp 36.3 C (97.4 F) | Resp 18 | SpO2 95% Pain 0 Physical Exam Constitutional: Appearance: Normal appearance. HENT: Head: Normocephalic and atraumatic. Cardiovascular: Rate and Rhythm: Normal rate. Pulses: Normal pulses. Heart sounds: Normal heart sounds. Pulmonary: Effort: Pulmonary effort is normal. Abdominal: General: Bowel sounds are normal. Palpations: Abdomen is soft. Musculoskeletal: General: Normal range of motion. Skin: General: Skin is warm and dry. Capillary Refill: Capillary refill takes 2 to 3 seconds. Neurological: Mental Status: He is alert and oriented to person, place, and time. Psychiatric: Mood and Affect: Mood normal. Behavior: Behavior normal. MAHC-10 Completed this Visit: Yes. MAHC-10: Reason Completed: Status [facility] ED [facility] Fall Risk Assessment Tool Age 65+: Yes (07/23/231199) Diagnosis (3 or more co-existing): Yes (07/23/231199) Prior history of falls within 3 months: No (07/23/231199) Incontinence: No (07/23/231199) Visual impairment: No (07/23/231199) Impaired functional mobility: Yes (07/23/231199) Environmental hazards: No (07/23/231199) Poly Pharmacy (4 or more prescriptions - any type): Yes (07/23/231199) Pain affecting level of function: No (07/23/231199) Cognitive impairment: Yes (07/23/231199) Score - a score of 4 or more is considered at risk for fallin (07/23/231199) MAHC-10 Interventions: Fall education provided, reviewed/provided Fall brochure Treatment/Plan: routine CBC draws via Mobile Lab Declines to f/u with Cardiology and hematology at this time Will discuss further with Brennen Kay at next visit - message sent to Scheduling for visit with him in near future Daily wts Home Interventions Provided: Reinforced current Plan of Care, including self-management and medication regimen Patient's Goals of Care: Stay at home Patient's 'Red Flags': Increased weakness Worsening sob Blood in stool 3 pound wt gain Patient Needs to Remember: Call [place] with red flags Referrals Needed: Other none Follow Up: Is there cellular connectivity/connectivity in the home? Yes Does the patient have internet in the home? Yes Patient encouraged to call the intake phone number for all urgent but not emergent issues. Scheduled to follow up with patient in one week with Brennen Kay PA-C and following week with ENRICO. Velma Carpio RN 07/23/2023 8:53 AM documented in this encounter Plan of Treatment Upcoming Encounters Date Type Department Care Team (Late st Contact Info) Description 07/25/2023 3:40 PM EDT Office Visit Family Medicine [address] [address] Muriel Moreira MD [address] [place] [address] [place] [address] 07/26/2023 9:10 AM EDT Laboratory Lab Mobile Phlebotomy [facility] [address] [place] [address] [facility], l Mobile Home Draw [address] [place] [address] 08/09/2023 9:10 AM EST Laboratory Lab Mobile Phlebotomy [facility] [address] [place] [address] [facility], Gml Mobile Home Draw [address] [place] [address] 08/23/2023 9:10 AM EST Laboratory Lab Mobile Phlebotomy [facility] [address] [place] [address] [facility], l Mobile Home Draw [address] [place] [address] 08/29/2023 3:30 PM EST Office Visit Cardiology [address] [place] [address] Chris [facility]hury [facility]-C [facility] [place] [address] 09/06/2023 9:10 AM EST Laboratory Lab Mobile [facility] [address] [place] [address] [facility], [facility] Mobile Home Draw [address] [place] [address] 09/20/2023 9:10 AM EST Laboratory Lab Mobile Phlebotomy [facility] [address] [place] [address] [facility], [facility] Mobile Home Draw [address] [place] [address] 10/04/2023 9:10 AM EST Laboratory Lab Mobile Phlebotomy [facility] [address] [place] [address] [facility], G[facility] Mobile Home Draw [address] [place] [address] 10/18/2023 9:10 AM EST Laboratory Lab Mobile Phlebotomy [facility] [address] [place] [address] [facility], Gml Mobile Home Draw [address] [place] [address] 10/19/2023 4:20 PM EST Office Visit Family Medicine [address] [place] [address] Zenobia Lyon MD [address] [place] [address] [place] [address] 11/01/2023 9:10 AM EST Laboratory Lab Mobile Phlebotomy [facility] [address] [place] [address] [facility], Gml Mobile Home Draw [address] [place] [address] 11/15/2023 9:10 AM EST Laboratory Lab Mobile Phlebotomy [facility] [address] [place] [address] [facility], [facility] Mobile Home Draw [address] [place] [address] 11/29/2023 9:10 AM EST Laboratory Lab Mobile Phlebotomy [facility] [address], [place] [address] [facility], [facility] Mobile Home Draw [address] [place] [address] 12/13/2023 9:10 AM EDT Laboratory Lab Mobile Phlebotomy [facility] [address] [place] [address] [facility], [facility] Mobile Home Draw [address] [place] [address] Scheduled Procedures Name Priority Associated Diagnoses Date/Ti [...] COPD 09/06/2023 09/06/2022 CKD PHOS USE SMARTSET 56935 09/07/202304/2022, 09/05/2022, 01/14/2022, Additional history exists Depression Screening 01/25/2024 01/24/2023 DIG LEVEL FOR MEDICATION MONITORING YEARLY 01/26/2024 01/25/2023, 04/17/2021, 03/09/2020, Additional history exists Albumin/Creatinine Ratio 01/27/2024 023, 01/14/2022, 08/14/2017, Additional history exists CKD HGB USE SMARTSET 32993 07/19/202407/19, 07/12/2023, 07/12/2023, Additional history exists DIABETES-EYE [...] this encounter Medical Devices Implanted Type Area Rubber Stamp Assembler Device Identifier Shelf Expiration Date Model / Serial / Lot Screw T2 Alpha Lock 5x47.5mm - [id number] Implanted:Qty: 1 on 09/06/2022 by Sean Silva MD at [facility] Left: Leg Upper RICHELLE : TRAUMA 06/01/2032 [id number] / / [id number] documented as of this encounter Advance Directives Documents on File Type Date Recorded Patient Photoengraving Helper Expl anation POLST 10/17/2022 [place] [facility] FOR LIFE-SUSTAINING TREATMENT POLST 09/10/2022 [place] OR [facility] FOR LIFE-SUSTAINING TREATMENT Latest Code Status on [...] Agen t (per Health Care Power of Bicycle Taxi Driver document) Reji Tello Dotts Adult Child First Alterna te Health Care Agent (per Health Care Power of Bicycle Taxi Driver document) Bowen Tello Adult Child First Alternate Health Care Agent (per Health Care Power of Bicycle Taxi Driver document) Care Teams Software Quality Engineer Relationship Specialty Start Date End Date Zenobia Lyno MD [address] [place] [address] [place] [address] PCP - General Family Medicine 05/22/23 documented as of this encounter"
--- OUTSIDE RECORDS SUMMARY | 2023-08-22 03:44 | External Medical Summary ---
Author Name Unknown Address Unknown Organization K01:LABORATORY [facility] - [address] [place] [address] Laboratory Report Ordering Provider Test Date Status KEVIN JONES 07/25/2023 16:19:41 Final Observation Date Value Abnormality Reference (Units ) Status Magnesium 07/25/2023 16:19:41 2.2 1.5-2.6 (m g/dL) Final Performing Location [facility] - [address] [place] [address]
--- OUTSIDE RECORDS SUMMARY | 2023-08-22 03:44 | External Medical Summary ---
Author Name Unknown Address Unknown Organization [id number]:LABORATORY [facility] - [address] [place] [address] Laboratory Report Ordering Provider Test Date Status KEVIN JONES 07/25/2023 16:19:41 Final Observation Date Value Abnormality Reference (Units ) Status WBC, Total 07/25/2023 16:19:41 4.69 4.00-10.80 (K/uL) Final RBC 07/25/2023 16:19:41 2.70 4.50-5.25 (M/uL) Final Hemoglobin 07/25/2023 16:19:41 8.6 Below low normal 14.0-16.8 (g/dL) Final HCT 07/25/2023 16:19:41 28.6 Below low normal 40.0-48.4 (%) Final MCV 07/25/2023 16:19:41 105.9 82.0-99.5 (fL) Final MCH 07/25/2023 16:19:41 31.9 27.0-34.0 (pg) Final MCHC 07/25/2023 16:19:41 30.1 32.0-36.0 (g/dL) Final RDW 07/25/2023 16:19:41 18.3 11.5-15.5 (%) Final Platelets 07/25/2023 16:19:41 247 140-400 (K/uL) Final MPV 07/25/2023 16:19:41 9.8 6.6-11.1 (fL) Final Nucleated erythrocytes/100 leukocytes [Ratio] in Blood by Automated count 07/25/2023 16:19:41 0 <=0 (/100 WBCs) Final Performing Location LABORATORY [facility] - [address] [place] [address]
--- OUTSIDE RECORDS SUMMARY | 2023-08-22 03:44 | External Medical Summary ---
Author Name Unknown Address Unknown Organization [id number][facility] [place] [address] [facility] [place] [address] Laboratory Report Ordering Provider Test Date Status KEVIN JONES 07/25/2023 16:19:41 Final Observation Date Value Abnormality Reference (Units ) Status BUN 07/25/2023 16:19:41 26 Above high normal 6-20 (mg/dL) Final Creatinine 07/25/2023 16:19:41 1.4 Above high normal 0.6-1.2 (mg/dL) Final Glomerular filtration rate/1.73 sq M.predicted [Volume Rate/Area] in Serum, Plasma or Blood by Creatinine-based formula (CKD-EPI) 07/25/2023 16:19:41 50 Below low normal >=60 (mL/min) Final eGFR is calculated based on the CKD-EPI 2020 equation SODIUM 07/25/2023 16:19:41 141 135-146 (m mol/L) Final Potassium 07/25/2023 16:19:41 4.2 3.5-5.1 (m mol/L) Final Cl 07/25/2023 16:19:41 101 98-107 (mm ol/L) Final CO2 07/25/2023 16:19:41 24 22-32 (mmo l/L) Final Anion gap 07/25/2023 16:19:41 16 Above high normal 7- 15 (mmol/L) Final Glucose 07/25/2023 16:19:41 190 Above high normal 70 -120 (mg/dL) Final Albumin 07/25/2023 16:19:41 3.0 Below low normal 3.8 -5.0 (g/dL) Final AST (Aspartate aminotransferase) 07/25/2023 16:19:41 11 10-50 (U/L) Fin al Alk Phos 07/25/2023 16:19:41 37 35-130 (U/ L) Final Bilirubin, Total 07/25/2023 16:19:41 0.3 <=1 .2 (mg/dL) Final Calcium 07/25/2023 16:19:41 9.1 8.4-10.2 ( mg/dL) Final Protein 07/25/2023 16:19:41 7.9 6.0-8.3 (g /dL) Final ALT (Alanine aminotransferase) 07/25/2023 16:19:41 12 10-50 (U/L) Titus cervantes Performing Location [facility] [place] [facility] [address]. [facility] [address]
--- OUTSIDE RECORDS SUMMARY | 2023-08-22 03:44 | External Medical Summary | Summary of Care ---
Author Name Unknown Organization [facility] Address [address] [place] [address] Phone [phone] Care Team Providers Care Walnut Dehydrator Operator Name Role Phone Zenobia Lyon MD Primary Care Provide r Reason for Visit * Reason Onset Date Comments [facility]: Maintenance 07/21/2023 Encounter Details Date Type Department Care Team Description 07/21/2023 Telephone [facility], [facility] [address] [facility] [place] [address] [facility], Nurse [facility] [address] [facility] [place] [address] [facility]: Maintenance Allergies Active Allergy [...] 75 MG Oral Tablet (pLAVix)Indications: Atherosclerosis of [place] coronary artery of [place] heart without angina pectoris Take 1 Tablet [...] upper back 10/22) Gastroesophageal reflux disease with eso phagitis 01/25/2016 [...] CORONARY ATHEROSCLEROSIS OF UNSPECIFIED TYPE OF VESSEL, [place] OR GRAFT Last Assessment & Plan: Stable. [...] infection without hematuria 202101/24/2023 Overview: Xavier to [facility] 04/20-04/29 urosepsis multi drug resistant E. Coli [...] glenn ek & Lt. leg ; Rt. orthodox 07/0207/18/2002 07/15/2015 Dyslipidemia, goal to be determined [...] MCG/0.3 mL, 12 YRS AND ABOVE, IM ([employer]-Comirnat) 07/19/2023 Covid-19, Mrna, Lnp-s, Pf, B ivalent, [...] encounter Miscellaneous Notes * Telephone Encounter - Sandrita Duran LPN - 07/21/2023 3:35 PM EDT Received TT from in pt CM, pt for dc to home today. Discussed w Kely Goldstein - BENJAMIN 1 added 07/23 documented in this encounter Plan of Treatment Upcoming Encounters Date Type Specialty Care Team Description 07/22/2023 Scheduled Telephone [facility], Nurse [facility] [address] [place] [address] 07/23/2023 Home Visit [facility], Nurse [address] [address] 07/25/2023 Office Visit Family Medicine Muriel Moreira MD [address] [place] [address] [place] [address] 07/26/2023 Laboratory [facility], [facility] Mobile Home Draw [address] [place] [address] 08/09/2023 Laboratory [facility], [facility] Mobile Home Draw [address] [place] [address] 08/23/2023 Laboratory Laboratory [facility], [facility] Mobile Home Draw [address] [place] [address] 08/29/2023 Office Visit Cardiology Chris Choudhury PA-C [address] [place] [address] 09/06/2023 Laboratory Laboratory [facility], [facility] Mobile Home Draw [address] [place] [address] 09/20/2023 Laboratory [facility], [facility] Mobile Home Draw [address] [place] [address] 10/04/2023 Laboratory [facility] Mobile Home Draw [address] [place] [address] 10/18/2023 Laboratory Laboratory Processing [facility] Mobile Home Draw [address] [place] [address] 10/19/2023 Office Visit Family Medicine Zenobia Lyon MD [address] [place] [address] [place], [place] [address] 11/01/2023 Laboratory [facility] Mobile Home Draw [address] [place] [address] 11/15/2023 Laboratory Laboratory Processing [facility] Gml Mobile Home Draw [address] [place] [address] 11/29/2023 Laboratory Laboratory Processing [facility] Gml Mobile Home Draw [address] [place] [address] 12/13/2023 Laboratory Laboratory Processing [facility], Gml Mobile Home Draw [address] [place] [address] Scheduled Procedures Name Priority Associated Diagnoses Date/Ti me COLONOSCOPY FLEXIBLE PROXIMA L DIAGNOSTIC Recall History of colonic polyps Health Maintenance Due Date Last Done Comments Alpha-1 Antitrypsin 1953 DTaP,Tdap,and Td Vaccines (2 - Td or Tdap) 01/11/2023 01/11/2013, 04/01/2003, 04/01/2003 HbA1c 07/27/2023 01/25/2023, 03/2022, 01/14/2022, Additional history exists O2 ASSESSMENT COMPLETED IN PAST YEAR FOR COPD 09/06/2023 09/06/2022 CKD PHOS USE SMARTSET 11792 09/07/202304/2022, 09/05/2022, 01/14/2022, Additional history exists Depression Screening 01/25/2024 01/24/2023 DIG LEVEL FOR MEDICATION MONITORING YEARLY 01/26/2024 01/25/2023, 04/17/2021, 03/09/2020, Additional history exists Albumin/Creatinine Ratio 01/27/2024 023, 01/14/2022, 08/14/2017, Additional history exists CKD HGB USE SMARTSET 86318 07/19/202407/19, 07/12/2023, 07/12/2023, Additional history exists DIABETES-EYE [...] this encounter Medical Devices Implanted Type Area Depot Agent Device Identifier Shelf Expiration Date Model / Serial / Lot Screw T2 Alpha Lock 5x47.5mm - [id number] Implanted:Qty: 1 on 09/06/2022 by Sean Silva MD at [facility] Left: Leg Upper RICHELLE : TRAUMA 06/01/2032 [id number] / / [id number] documented as of this encounter Advance Directives Documents on File Type Date Recorded Patient Terminal Carman Expl anation POLST 10/17/2022 [place] OR DERS [...] Agen t (per Health Care Power of Manager Solar document) Reji Tello Dotts Adult Child First Alterna te Health Care Agent (per Health Care Power of Manager Solar document) Bowen Tello Adult Child First Alternate Health Care Agent (per Health Care Power of Manager Solar document) Care Teams Walnut Dehydrator Operator Relationship Specialty Start Date End Date Zenobia Lyon MD [address] [place] [address] [place] [address] PCP - General Family Medicine 05/22/23 documented as of this encounter
--- OUTSIDE RECORDS SUMMARY | 2023-08-22 03:44 | External Medical Summary | Summary of Care ---
Author Name Unknown Organization [facility] Address [address] [place] [address] Phone [phone] Care Team Providers Care Power Technician Name Role Phone Zenobia Lyon MD Primary Care Provide r Reason for Visit * Reason Onset Date Comments Hospital Follow-Up Hospital Follow-Up 07/25/2023 Encounter Details Date Type Department Care Team (Late st Contact Info) Description 07/25/2023 3:40 PM EDT Office Visit Family Medicine [address] [phone] Muriel Moreira MD [address] [place] [address] [place] [address] Hospital discharge follow-up*; Multiple myeloma not having achieved remission (HCC); Type 2 diabetes mellitus with diabetic nephropathy, without long-term current use of insulin (HCC); 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) Allergies Active Allergy Reactions Criticality Noted Date Comments James Inhibitors 09/10/2002 cough on prinivil Hydrocodone 09/05/2022 Family states AMS change when taken Prednisone 05/26/2011 Blisters in throat Sulfa Antibiotics 03/19/2001 dysurea documented as of this encounter (statuses as of 07/25/2023) Medications Medication Sig Dispensed Refills Start Date End Date Status OXYGENIndications:Hy poxia,Acute systolic CHF (congestive heart failure) (HCC) 2L/min via nasal cannula 24 hours continous, please provide portables as well 1 Each 0 4 Active Latanoprost 0.005 % Ophthalmic Solution (Xalatan) Instill into both eyes 1 Drop in the morning. 2.5 mL 0 2 Active Ventolin HFA 108 (90 Base) MCG/ACT Inhalation Aerosol SolutionIndications: Moderate persistent asthma without complication Inhale by mouth 2 Puffs 4 times a day . 18 g 0 2 Active Magnesium Oxide 400 MG Oral TabletIndications:Tr ifascicular block,Coronary atherosclerosis one per day 34 Tablet 11 2 Active Multivitamin Adult Oral Tablet Take by mouth daily . 0 Active OneTouch Ultra Blue In Vitro Strip (Glucose Blood)Indications:Ty pe 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 (HCC) Use to test blood sugar as needed 100 Strip 3 2 Active OneTouch UltraSoft LancetsIndications:T ype 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 ([facility]) Use to test blood sugar as needed 100 Each 3 2 Active Acetaminophen 500 MG Oral TabletIndications:Ca ncer related pain Take 2 Tablets by mouth 2 times a day with morning and evening meals. 100 Tablet 0 3 Active glipiZIDE ER 5 MG Oral Tablet Extended Release 24 Hour (glipiZIDE XL) Take 1 Tablet by mouth in the morning. 30 minutes before a meal.. 30 Tablet 5 3 Active Ondansetron HCl 4 MG Oral Tablet Take 1 Tablet by mouth every 6 hours as needed for Nausea. 20 Tablet 0 3 Active Fluticasone-Salmeter ol 250-50 MCG/ACT Inhalation Aerosol Powder Breath Activated (Wixela Inhub)Indications:As thma, moderate persistent Inhale 1 Puff by mouth in the morning and 1 Puff before bedtime. 3 Each 3 3 Active MEDICAL INSTRUCTIONS 1) obtain a I can cause for 2 units packed red blood cells 2) transfuse 2 units of packed red blood cells according to the infusion centers policies 3) provide 650 mg of Tylenol approximately 30 minutes before starting the infusion Do not start before May 19, 2023. 1 Each 0 3 Active Ferrous Sulfate 325 (65 Fe) MG Oral Tablet (Feosol)Indications: 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 TAKE ONE TABLET BY MOUTH TWICE DAILY 180 Tablet 3 3 Active Digoxin 125 MCG Oral Tablet (Lanoxin) TAKE ONE TABLET 3 days per week 36 Tablet 3 3 Active Pantoprazole Sodium 40 MG Oral Tablet Delayed Release (Protonix)Indication s:GERD (gastroesophageal reflux disease) Take 1 Tablet by mouth daily. 90 Tablet 1 3 Active Clopidogrel Bisulfate 75 MG Oral Tablet (pLAVix)Indications: Atherosclerosis of [place] coronary artery of [place] heart without angina pectoris Take 1 Tablet by mouth in the morning. 90 Tablet 3 3 Active Metoprolol Succinate ER 50 MG Oral Tablet Extended Release 24 Hour (toPROL XL)Indications:Tachy -lorna syndrome (HCC),Heart failure, systolic, due to CAD Take 1 Tablet by mouth in the morning. 90 Tablet 3 3 Active Losartan Potassium 50 MG Oral Tablet (Cozaar)Indications: Heart failure, systolic, due to CAD Take 1 Tablet by mouth in the morning. 90 Tablet 3 3 Active Potassium Chloride Emma ER 20 MEQ Oral Tablet Extended ReleaseIndications:H ypokalemia Take 1 Tablet by mouth in the morning. 90 Tablet 3 3 Active Dutasteride 0.5 MG Oral Capsule (Avodart)Indications :BPH with obstruction/lower urinary tract symptoms Take 1 Capsule by mouth in the morning. 90 Capsule 1 3 Active Methenamine Hippurate 1 GM Oral Tablet (Hiprex) Take 1 Tablet by mouth in the morning and 1 Tablet before bedtime. 180 Tablet 3 3 Active Furosemide 40 MG Oral Tablet (Lasix)Indications:H ypertensive heart and kidney disease with chronic combined systolic and diastolic congestive heart failure and stage 3a chronic kidney disease (HCC) Take 1 Tablet by mouth in the morning. 126 Tablet 2 3 Active Furosemide 40 MG Oral Tablet (Lasix) Take 1 Tablet by mouth in the morning. 100 Tablet 3 3 07/25/20 23 Discontinu ed(Refill) documented as of this encounter (statuses as of 07/25/2023) Active Problems Patient Care Coordination No te [...] control in clinical research program 03/25/2015 Overview: [employer] Product Surveillance Registry PI: Kylah Lilly IV, [...] CORONARY ATHEROSCLEROSIS OF UNSPECIFIED TYPE OF VESSEL, [place] OR GRAFT Last Assessment & Plan: Stable. 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 documented as of this encounter (statuses as of 07/25/2023) Resolved Problems Problem Noted Date Diagnosed Date [...] without hematuria 05/30/2022 01/24/2023 Overview: Xavier to [facility] 04/20-04/29 urosepsis multi drug resistant E. Coli [...] protocol Hypertensive heart disease with heart failure 12/25/19 21 05/13/2022 Overview: more specific combo Chronic kidney [...] glenn ek & Lt. leg ; Rt. cheondoism 07/0207/18/2002 07/15/2015 Dyslipidemia, goal to be determined [...] as of this encounter (statuses as of 07/25/2023) Immunizations Name Administration Dates Next Due COVID-19 mRNA, LNP-s, No Pre serve, 2-Dose Series (Moderna) 08/24/2021,12/07/2020,11/09/2020 COVID-19, MRNA-LNP, 23-24, P F, 30 MCG/0.3 mL, 12 YRS AND ABOVE, IM (PFIZER-Comirnaty) 07/19/2023 Covid-19, Mrna, Lnp-s, Pf, B ivalent, [...] 20 Q uit: 10/02/1970 Smokeless Tobacco: Never Tobacco Cessation:Counseling Given: Not Answered Comments:1969 Alcohol Use Standard Drinks/Week Comments Not [...] Sign Reading Time Taken Comments Blood Pressure 122/60 07/25/2023 3:44 PM EDT Pulse 70 07/25/2023 3:44 PM EDT Temperature 37 C (98.6 F) 07/25/2023 3:44 PM EDT Respiratory Rate - - Oxygen Saturation 98% 07/25/2023 3:44 PM EDT Inhaled Oxygen Concentration - - Weight 90.3 kg (199 lb) 07/25/2023 3:44 PM EDT Height - - Body Mass Index 27.75 12/05/2022 3:18 PM EST documented in this encounter Functional Status Functional [...] as of this encounter Progress Notes * Muriel Marrero MD - 07/25/2023 3:51 PM EDT SUBJECTIVE: Marshall Tello . is a 88 year old male. Chief Complaint Patient presents with Hospital Follow-Up Hospital Follow-Up Recent Admission: Patient was recently admitted to [facility]. The date of discharge was 07/21/23. Discharge report received and reviewed. HPI: Bowen is here with his daughter Reji for hospital follow up. He was admitted for severe anemiaand SOB in the context of multiple myeloma dependant on blood transfusions and CHF. He was admittedovernight and received 4 units PRBC with IV lasix in between units. PMH includes: MM transfusion dependant, CAD s/p CABG, BPH/h/o prostatitis with h/o profuse bleeding, pacemaker status, asthma, hypoxemia at night, cardiomyopathy, afib, CKD3, GERD, hearing loss and dementia. TODAY: States he is feeling ok. No complaints. Denies pain, SOB. Daughter states he's doing OK at home; sleeps quite a lot. Family understands his multiple myeloma is terminal and that the increased need for transfusions indicates progression. They all want to continue treating for now. 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 Longstanding persistent atrial fibrillation ([facility]) I48.11 Ischemic cardiomyopathy I25.5 Aortic valve insufficiency I35.1 Automatic implantable cardioverter-defibrillator in situ Z95.810 Encounter for examination for normal comparison and control in clinical research program Z00.6 Gastroesophageal reflux disease with esophagitis K21.00 Type 2 diabetes mellitus with diabetic nephropathy, without long-term current use of insulin ([facility]) E11.21 Sensorineural hearing loss (SNHL) of both ears H90.3 Hx of nonmelanoma skin cancer Z85.828 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, R31.9 Chronic atrial fibrillation ([facility]) I48.20 Primary open-angle glaucoma, left eye, mild stage H40.1121 Skin lesion L98.9 DISH (diffuse idiopathic skeletal hyperostosis) M48.10 Chronic obstructive pulmonary disease ([facility]) J44.9 Other specified peripheral vascular diseases ([facility]) I73.89 Type 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 (HCC) E11.51 DM type 2 with diabetic peripheral neuropathy ([facility]) E11.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 (HCC) I13.0, I50.42, N18.31 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 N18.31, D63.1 Iron deficiency anemia D50.9 Type 2 diabetes mellitus with stage 3a chronic kidney disease, without long-term current use of insulin ([facility]) E11.22, N18.31 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[facility]) G30.1, F02.80 Multiple myeloma ([facility]) C90.00 Infrarenal abdominal aortic aneurysm (AAA) without rupture ([facility]) 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 ([facility]) I50.42 Protein-calorie malnutrition ([facility]) E46 Current Outpatient Medications Medication Sig Dispense Refill OXYGEN 2L/min via nasal cannula 24 hours continous, please provide portables as well 1 Each 0 Latanoprost 0.005 % Ophthalmic Solution (Xalatan) Instill into both eyes 1 Drop in the morning. 2.5mL 0 Ventolin HFA 108 (90 Base) MCG/ACT Inhalation Aerosol Solution Inhale by mouth 2 Puffs 4 times a day . 18 g 0 Magnesium Oxide 400 MG Oral Tablet one per day 34 Tablet 11 Multivitamin Adult Oral Tablet Take by mouth daily . OneTouch Ultra Blue In Vitro Strip (Glucose Blood) Use to test blood sugar as needed 100 Strip 3 OneTouch UltraSoft Lancets Use to test blood sugar as needed 100 Each 3 Acetaminophen 500 MG Oral Tablet Take 2 Tablets by mouth 2 times a day with morning and evening meals. 100 Tablet 0 glipiZIDE ER 5 MG Oral Tablet Extended Release 24 Hour (glipiZIDE XL) Take 1 Tablet by mouth in themorning. 30 minutes before a meal.. 30 Tablet 5 Ondansetron HCl 4 MG Oral Tablet Take 1 Tablet by mouth every 6 hours as needed for Nausea. 20 Tablet 0 Fluticasone-Salmeterol 250-50 MCG/ACT Inhalation Aerosol Powder Breath Activated (Wixela Inhub) Inhale 1 Puff by mouth in the morning and 1 Puff before bedtime. 3 Each 3 MEDICAL INSTRUCTIONS 1) obtain a I can cause for 2 units packed red blood cells 2) transfuse 2 units of packed red blood cells according to the infusion centers policies 3) provide 650 mg of Tylenol approximately 30 minutes before starting the infusion Do not start before May 19, 2023. 1 Each 0 Ferrous Sulfate 325 (65 Fe) MG Oral Tablet (Feosol) TAKE ONE TABLET BY MOUTH TWICE DAILY 180 Tablet3 Digoxin 125 MCG Oral Tablet (Lanoxin) TAKE ONE TABLET 3 days per week 36 Tablet 3 Furosemide 40 MG Oral Tablet (Lasix) Take 1 Tablet by mouth in the morning. 100 Tablet 3 Pantoprazole Sodium 40 MG Oral Tablet Delayed Release (Protonix) Take 1 Tablet by mouth daily. 90 Tablet 1 Clopidogrel Bisulfate 75 MG Oral Tablet (pLAVix) Take 1 Tablet by mouth in the morning. 90 Tablet 3 Metoprolol Succinate ER 50 MG Oral Tablet Extended Release 24 Hour (toPROL XL) Take 1 Tablet by mouth in the morning. 90 Tablet 3 Losartan Potassium 50 MG Oral Tablet (Cozaar) Take 1 Tablet by mouth in the morning. 90 Tablet 3 Potassium Chloride Emma ER 20 MEQ Oral Tablet Extended Release Take 1 Tablet by mouth in the morning. 90 Tablet 3 Dutasteride 0.5 MG Oral Capsule (Avodart) Take 1 Capsule by mouth in the morning. 90 Capsule 1 Methenamine Hippurate 1 GM Oral Tablet (Hiprex) Take 1 Tablet by mouth in the morning and 1 Tablet before bedtime. 180 Tablet 3 No current facility-administered medications for this visit. Current and discharge medications have been reconciled. Review of patient's allergies indicates: Allergen Reactions James Inhibitors cough on prinivil Hydrocodone Family states AMS change when taken Prednisone Blisters in throat Sulfa Antibiotics dysurea OBJECTIVE: BP 122/60 | Pulse 70 | Temp 37 C (98.6 F) (Tympanic) | Wt 90.3 kg (199 lb) | SpO2 98% | BMI 27.75 kg/m | BSA 2.13 m REVIEW OF SYSTEMS: PHYSICAL EXAM: BP 122/60 | Pulse 70 | Temp 37 C (98.6 F) (Tympanic) | Wt 90.3 kg (199 lb) | SpO2 98% | BMI 27.75 kg/m | BSA 2.13 m ASSESSMENT: Hospital discharge follow-up (Primary) - DISCH MED RECON CUR MED LIS Follow Up: Return in 1 month (on 08/25/2023). PLAN: Family understands his multiple myeloma is terminal and that the increased need for transfusions indicates progression. They all want to continue treating for now. Labs today. Anticipate continued need for weekly transfusions. Will keep regular [facility] appointments and come back to clinic when needed and/or in the spring. Follow up in 6 month(s). Muriel Chowdary MD documented in this encounter Nursing Notes * Kalia Bansal LPN - 07/25/2023 3:30 PM EDT Chief Complaint Patient presents with Hospital Follow-Up [facility] Hospital Follow up 07/20/2023 Sent to ER on 07/20/2023 due HGB low Dx: Anemia and CHF exacerbation Received 4 units PRBC Cardiology apt 08/29/23 No oncology apt or Palliative apt scheduled at this time He needs CMP/CBC/Magnesium/Phosphorus The patient has been properly identified by confirmation of name and date of . documented in this encounter Plan of Treatment Upcoming Encounters Date Type Department Care Team (Late st Contact Info) Description 07/26/2023 9:10 AM EDT Laboratory Lab [facility] [address] [place] [address] [facility], [facility] [address] [place] [address] 08/09/2023 9:10 AM EST Laboratory Lab [facility] [address] [place] [address] Gmc, [facility] [address] [place] [address] 08/23/2023 9:10 AM EST Laboratory Lab [facility]bot[facility] C [address] [place] [address] c, [facility] [address] [place] [address] 08/29/2023 3:30 PM EST Office Visit Cardiology [address] [place] [address] Chris Choudhury PA-C [address] [place] [address] 09/06/2023 9:10 AM EST Laboratory Lab [facility] [address] [place] [address] G[facility], [facility] Draw [address] [place] [address] 09/20/2023 9:10 AM EST Laboratory Lab [facility] [address] [place] [address] Gmc, [facility] [address] [place] [address] 10/04/2023 9:10 AM EST Laboratory Lab [facility] [address] [place] [address] G[facility], [facility] [address] [place] [address] 10/18/2023 9:10 AM EST Laboratory Lab [facility] [address] [place] [address] G[facility], [facility] [address] [place] [address] 10/19/2023 4:20 PM EST Office Visit Family Medicine [address] [phone] Zenobia Lyon MD [address] [place] [address] [place] [address] 11/01/2023 9:10 AM EST Laboratory Lab [facility] [address] [place] [address] [facility], [facility] [address] [place] [address] 11/15/2023 9:10 AM EST Laboratory Lab [facility] [address], [place] [id number] G[facility], [facility] [address] [place] [address] 11/29/2023 9:10 AM EST Laboratory Lab [facility] [address] [place] [address] Gm, [facility] Draw [address] [place] [address] 12/13/2023 9:10 AM EDT Laboratory Lab [facility] [address] [place] [address] Gmc, [facility] Home Draw [address] [place] [address] 01/26/2024 4:20 PM EDT Office Visit [address] [phone] Zenobia Lyon MD [address] [place] [address] [place] [address] Pending Results Name Type Priority Associated Diagnoses Date /Time CBC Lab Routine Multiple myeloma not having achieved remission (HCC) 07/25/2023 4:19 PM EDT COMPREHENSIVE METABOLIC PANEL Lab Routine Multiple myeloma not 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, without long-term current use of insulin (HCC) 07/25/2023 4:19 PM EDT MAGNESIUM Lab Routine Type 2 diabetes mellitus with diabetic nephropathy, without long-term current use of insulin (HCC) 07/25/2023 4:19 PM EDT PHOSPHORUS Lab Routine Type 2 diabetes mellitus with diabetic nephropathy, without long-term current use of insulin (HCC) 07/25/2023 4:19 PM EDT Scheduled Orders Name Type Priority Associated Diagnoses Orde r Schedule CBC Lab Routine Multiple myeloma not having achieved remission (HCC) Expected: 07/25/2023 (Approximate), Expires: 07/24/2024 COMPREHENSIVE METABOLIC PANEL Lab Routine Multiple myeloma not 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, without long-term current use of insulin (HCC) Expected: 07/25/2023 (Approximate), Expires: 07/24/2024 MAGNESIUM Lab Routine Type 2 diabetes mellitus with diabetic nephropathy, without long-term current use of insulin (HCC) Expected: 07/25/2023 (Approximate), Expires: 07/24/2024 PHOSPHORUS Lab Routine Type 2 diabetes mellitus with diabetic nephropathy, without long-term current use of insulin (HCC) Expected: 07/25/2023 (Approximate), Expires: 07/24/2024 Scheduled Procedures Name Priority Associated Diagnoses Date/Ti [...] COPD 09/06/2023 09/06/2022 CKD PHOS USE SMARTSET 03824 09/07/2023 120 04/2022, 09/05/2022, 01/14/2022, Additional history exists Depression Screening 01/25/2024 01/24/2023 DIG LEVEL FOR MEDICATION MONITORING YEARLY 01/26/2024 01/25/2023, 04/17/2021, 03/09/2020, Additional history exists Albumin/Creatinine Ratio 01/27/202401/26/ 023, 01/14/2022, 08/14/2017, Additional history exists CKD HGB USE SMARTSET 32606 07/19/202407/19, 07/12/2023, 07/12/2023, Additional history exists DIABETES-EYE [...] this encounter Medical Devices Implanted Type Area Production Technician Device Identifier Shelf Expiration Date Model / Serial / Lot Screw T2 Alpha Lock 5x47.5mm - [id number] Implanted:Qty: 1 on 09/06/2022 by Sean Silva MD at [facility] Left: Leg Upper RICHELLE : TRAUMA 06/01/2032 [id number] / / [id number] documented as of this encounter Visit Diagnoses Diagnosis Hospital discharge follow-up- Primary Other follow-up examination Multiple myeloma not having achieved remission (HCC) Multiple myeloma, without mention of having achieved remission Type 2 diabetes mellitus with diabetic nephropathy, 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) documented in this encounter Advance Directives Documents on File Type Date Recorded Patient Slurry Blender Expl anation POLST 10/17/2022 [place] OR DERS FOR LIFE-SUSTAINING TREATMENT POLST 09/10/2022 [place] OR DERS FOR LIFE-SUSTAINING TREATMENT Latest Code [...] Agen t (per Health Care Power of Senior Quality Manager document) Reji Tello Dotts Adult Child First Alterna te Health Care Agent (per Health Care Power of Senior Quality Manager document) Bowen Tello Adult Child First Alternate Health Care Agent (per Health Care Power of Senior Quality Manager document) Care Teams Power Technician Relationship Specialty Start Date End Date Zenobia Lyon MD [address] [place] [address] [place] [address] PCP - General Family Medicine 05/22/23 documented as of this encounter"
--- OUTSIDE RECORDS SUMMARY | 2023-08-22 03:45 | External Medical Summary | Summary of Care ---
Author Name Unknown Organization [facility] Address [address] [place] [address] Phone [phone] Care Team Providers Care Corporate Driver Name Role Phone Zenobia Lyon MD Primary Care Provide r Reason for Visit * Reason Comments Follow Up 6 mo f/u Encounter Details Date Type Department Care Team Description 07/19/2023 Office Visit Family Medicine [address] [id number] Muriel Moreira MD [address] [place] [address] THA Vasquez [address] Multiple myeloma not having achieved remission (HCC)*; Type 2 diabetes mellitus with diabetic nephropathy, without long-term current use of insulin (HCC); Protein-calorie malnutrition, unspecified severity ([facility]); Anemia in neoplastic disease Allergies Active Allergy Reactions Severity Noted Date Comments James Inhibitors 09/10/2002 cough on prinivil Hydrocodone 09/05/2022 Family states AMS change when taken Prednisone 05/26/2011 Blisters in throat Sulfa Antibiotics 03/19/2001 dysurea documented as of this encounter (statuses as of 07/19/2023) Medications Medication Sig Dispensed Refills Start Date [...] 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 ([facility]) Use to test blood sugar as needed 100 Strip 3 05/20/2022 Active OneTouch UltraSoft LancetsIndications:T ype 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 ([facility]) Use to test blood sugar as needed [...] 75 MG Oral Tablet (pLAVix)Indications: Atherosclerosis of jena coronary artery of jena heart without angina pectoris Take 1 Tablet [...] as of this encounter (statuses as of 07/19/2023) Active Problems Patient Care Coordination No te [...] control in clinical research program 03/25/2015 Overview: [employer] Surveillance Registry PI: Kylah Lilly IV, [...] CORONARY ATHEROSCLEROSIS OF UNSPECIFIED TYPE OF VESSEL, BARROW OR GRAFT Last Assessment & Plan: Stable. 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 documented as of this encounter (statuses as of 07/19/2023) Resolved Problems Problem Noted Date Resolved Date [...] infection without hematuria 202101/24/2023 Overview: [facility] to [facility] 04/20-04/29 urosepsis multi drug resistant E. [...] glenn ek & Lt. leg ; Rt. adventist 07/0207/18/2002 07/15/2015 Dyslipidemia, goal to be determined [...] as of this encounter (statuses as of 07/19/2023) Immunizations Name Administration Dates Next Due COVID-19 mRNA, LNP-s, No Pre serve, 2-Dose Series (Moderna) 08/24/2021,12/07/2020,11/09/2020 COVID-19, MRNA-LNP, 23-24, P F, 30 MCG/0.3 mL, 12 YRS AND ABOVE, IM (Apolo Energia-Comirnaty) 07/19/2023 Covid-19, Mrna, Lnp-s, Pf, B ivalent, [...] Sign Reading Time Taken Comments Blood Pressure 120/60 07/19/2023 2:56 PM EDT Pulse 72 07/19/2023 2:56 PM EDT Temperature 36.2 C (97.1 F) 07/19/2023 2:56 PM ED T Respiratory Rate - - Oxygen Saturation 99% 07/19/2023 2:56 PM EDT Inhaled Oxygen Concentration - - Weight 90.7 kg (200 lb) 07/19/2023 2:56 PM EDT Height - - Body Mass Index 27.89 12/05/2022 3:18 PM EST documented in this [...] No 09/05/2022 documented as of this encounter Patient Instructions * Patient Instructions* Kalia Mayberry Nimisha, TUB CHUCKER - 07/19/2023 3:12 PM EDT Diabetes: Keeping Feet Healthy Inspect your feet every day for signs of a problem. Diabetes can damage nerves in your feet and cause neuropathy. This condition makes it hard for you to feel injuries or sore spots. Diabetes can also change blood flow, making it harder for small problems, like a blister, to heal properly. In fact, minor injuries can quickly become serious infections that send you to the hospital. Practice self-care to protect your feet and keep them healthy. Take Special Care Inspect your feet daily for problems such as redness, blisters, cracks, dry skin, or numbness. Use a mirror to see the bottoms of your feet. Or, ask for help. Manage your diabetes. Monitor and control your blood sugar. Take all your medications as prescribed. Avoid walking barefoot, even indoors. Wash your feet with warm water and mild soap. Dry well, especially between toes. Dont treat corns or calluses yourself. Talk to your doctor or classification inspector (a doctor who specializes in foot care) if you need assistance trimming your toenails. Use moisturizing cream or lotion if you have dry skin, but dont use it between toes. Dont use heating pads on your feet. If you have neuropathy, you could get a burn and not feel it. Stop smoking. Smoking restricts blood flow and can make it harder for wounds to heal. Have Regular Checkups Foot problems can develop quickly. So be sure to follow your healthcare teams schedule for regular checkups. During office visits, take off your shoes and socks as soon as you get in the exam room. Ask your healthcare provider to examine your feet for problems. This will make it easier to find and treat small skin irritations before they get worse. Regular checkups can also help keep track of the blood flow and feeling in your feet. If you have neuropathy, you may need to have checkups more often. Wear Proper Footwear Wearing proper footwear is very important. If areas of your feet have been damaged by too much pressure, your healthcare provider may recommend changing your footwear. In some cases, avoiding high heels or tight work boots may be all thats needed. Or, your healthcare provider may recommend special shoes or custom inserts. These help protect your feet and keep existing irritations from getting worse. If you need special footwear, ask your healthcare provider if you qualify for [employer] diabetic shoe program. Make Sure Shoes and Socks Fit Any pair of shoes--new or old--should feel comfortable as soon as you put them on. There shouldnt be any rubbing when you walk. Wear the right shoe for any activity. For instance, a running shoe is designed to keep your feet injury-free while jogging. Buy shoes at the end of the day, when your feet are larger. Make sure they provide support without feeling too loose. Make sure your socks fit, t oo. Wear soft, seamless, well-padded socks for activity. Cotton or microfiber socks are best to help to absorb sweat. To protect your feet, avoid shoes that are open-toed or open-heeled. If you have questions about what kinds of shoes and socks are best, talk to your healthcare team. Get Regular Exercise Regular exercise improves blood flow in your feet. It also increases foot strength and flexibility.Gentle exercises, like walking or riding a stationary bicycle, are best. You can also do special foot exercises. Just be sure to talk with your healthcare provider before starting any exercise program. Also mention if any exercise causes pain, redness, or other signs of foot problems. Note: If you have any kind of break in the skin of your foot or ankle, keep the area clean. Then call your doctor--especially if the area doesnt appear to be healing. [id number] [employer], [address] [place] [address], [place] [address]. All rights reserved. This information is not intended as a substitute for professional medical care. Always follow your healthcare professional's instructions. documented in this encounter Progress Notes * Muriel Marrero MD - 07/19/2023 3:26 PM EDT Subjective Marshall Tello Sr. is a 88 year old male. Chief Complaint Patient presents with Follow Up 6 mo f/u HPI: Dx with multiple myeloma. Deferred chemotherapy. Has progressively worsening anemia, shortnessof breath and fatigue. Concerned he may need another transfusion. Last received 1 unit PRBC one week ago. 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828 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, R31.9 Chronic atrial fibrillation ([facility]) I48.20 Primary open-angle glaucoma, left eye, mild stage H40.1121 Skin lesion L98.9 DISH (diffuse idiopathic skeletal hyperostosis) M48.10 Chronic obstructive pulmonary disease (HCC) J44.9 Other specified peripheral vascular diseases ([facility]) I73.89 Type 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 (HCC) E11.51 DM type 2 with diabetic peripheral neuropathy (HCC) E11.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 ([facility]) I13.0, I50.42, N18.31 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 N18.31, D63.1 Iron deficiency anemia D50.9 Type 2 diabetes mellitus with stage 3a chronic kidney disease, without long-term current use of insulin ([facility]) E11.22, N18.31 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[facility]) G30.1, F02.80 Multiple myeloma ([facility]) C90.00 Infrarenal abdominal aortic aneurysm (AAA) without rupture ([facility]) 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 ([facility]) I50.42 Protein-calorie malnutrition ([facility]) E46 Current Outpatient Medications Medication Sig Dispense [...] minutes before a meal.. 30 Tablet 5 traMADol HCl 50 MG Oral Tablet (Ultram) Take 1 Tablet by mouth every 6 hours as needed. Ondansetron HCl 4 MG Oral Tablet Take [...] No current facility-administered medications for this visit. Review of patient's allergies indicates: Allergen Reactions James Inhibitors cough on prinivil Hydrocodone Family states AMS change when taken Prednisone Blisters in throat Sulfa Antibiotics dysurea Objective BP 120/60 | Pulse 72 | Temp 36.2 C (97.1 F) (Tympanic) | Wt 90.7 kg (200 lb) | SpO2 99% | BMI 27.89 kg/m | BSA 2.13 m Physical Exam Constitutional: Appearance: Normal appearance. Comments: pale Cardiovascular: Rate and Rhythm: Normal rate and regular rhythm. Pulses: Normal pulses. Heart sounds: Normal heart sounds. Pulmonary: Effort: Pulmonary effort is normal. Breath sounds: Normal breath sounds. Abdominal: General: Abdomen is flat. Palpations: Abdomen is soft. Neurological: Mental Status: He is alert. ASSESSMENT/PLAN: Multiple myeloma not having achieved remission (HCC) (Primary) - CBC; Future; Expected date: 07/19/2023 Type 2 diabetes mellitus with diabetic nephropathy, without long-term current use of insulin (HCC) - DIABETES FOOT EXAM Protein-calorie malnutrition, unspecified severity (HCC) Anemia in neoplastic disease - CBC; Future; Expected date: 07/19/2023 Has become dependant on frequent blood transfusions due to anemia associated with multiple myeloma Family/son understands this is a terminal diagnosis. Bowen and his son agree that they want to continue treatment with labs and transfusions at this time Will d/w hematology once his labs are resulted Follow Up: Return in about 3 months (around 10/19/2023) for Return with Physician, Clinic Visit. | For: Return with Physician, Clinic Visit | Check-out note: Schedule Podiatry apt with in [facility] Muriel Chowdary MD * Kalia Bansal LPN - 07/19/2023 3:12 PM EDT DM Foot Exam completed today. Provider aware. Kalia Bansal LPN Socks and Shoes Removed for Annual Diabetic Foot Screening RIGHT FOOT: No Reddened, Cracking, Or Open Areas Noted. RIGHT Dorsalis Pedis Pulse: Palpable RIGHT Posterior Tibial Pulse: Palpable RIGHT Monofilament:Patient reports feeling monofilament pressure on plantar surface of foot LEFT FOOT: No Reddened, Cracking or Open Areas Noted. LEFT Dorsalis Pedis Pulse: Palpable LEFT Posterior Tibial Pulse: Palpable LEFT Monofilament:Patient reports feeling monofilament pressure on plantar surface of foot Do you need diabetic shoes: No documented in this encounter Nursing Notes * Kalia Bansal LPN - 07/19/2023 3:01 PM EDT Chief Complaint Patient presents with Follow Up 6 mo f/u 07/14/2023 sent Pt to [facility] for 1 unit PRBC Repeat CBCD in 2 wks 07/26/2023 He needs blood work done sooner. They notice he is fatigue and SOB SPo2 today 99% The patient has been properly identified by confirmation of name and date of . documented in this encounter Plan of Treatment Upcoming Encounters Date Type Specialty Care Team Description 07/21/2023 Home Visit [facility] Lila Brownlee RN [address] [place] [address] 07/26/2023 Laboratory [facility] [address] [place] [address] 08/09/2023 Laboratory Laboratory [facility] [address] [place] [address] 08/23/2023 Laboratory Laboratory [facility] [address] [place] [address] 08/29/2023 Office Visit Cardiology Chris Choudhury PA-C [address] [place] [address] 09/06/2023 Laboratory Laboratory [facility] [address] [place] [address] 09/20/2023 Laboratory Laboratory [facility] [address] [place] [address] 10/04/2023 Laboratory Laboratory [facility] [address] [place] [address] 10/18/2023 Laboratory Laboratory [facility] [address] [place] [address] 10/19/2023 Office Visit Family Medicine Zenobia Lyon MD [address] [place] [address] [place], [place]A [address] 11/01/2023 Laboratory Laboratory [facility] [address] [place] [address] 11/15/2023 Laboratory Laboratory [facility] [address] [place] [address] 11/29/2023 Laboratory Laboratory [facility] [address] [place] [address] 12/13/2023 Laboratory Laboratory [facility] [address] [place] [address] Pending Results Name Type Priority Associated Diagnoses Date /Time CBC Lab Routine Multiple myeloma not having achieved remission (HCC) Anemia in neoplastic disease 07/19/2023 3:51 PM EDT Scheduled Orders Name Type Priority Associated Diagnoses Orde r Schedule CBC Lab Routine Multiple myeloma not having achieved remission (HCC) Anemia in neoplastic disease Expected: 07/19/2023 (Approximate), Expires: 07/18/2024 Scheduled Procedures Name Priority Associated Diagnoses Date/Ti me COLONOSCOPY FLEXIBLE PROXIMA L DIAGNOSTIC Recall History of colonic polyps Health Maintenance Due Date Last Done Comments Alpha-1 Antitrypsin 1953 DTaP,Tdap,and Td Vaccines (2 - Td or Tdap) 01/11/2023 01/11/2013, 04/01/2003, 04/01/2003 HbA1c 07/27/2023 01/25/2023, 03/2022, 01/14/2022, Additional history exists O2 ASSESSMENT COMPLETED IN PAST YEAR FOR COPD 09/06/2023 09/06/2022 CKD PHOS USE SMARTSET 24572 09/07/2023 1204/2022, 09/05/2022, 01/14/2022, Additional history exists Depression Screening 01/25/2024 01/24/2023 DIG LEVEL FOR MEDICATION MONITORING YEARLY 01/26/2024 01/25/2023, 04/17/2021, 03/09/2020, Additional history exists Albumin/Creatinine Ratio 01/27/2024 023, 01/14/2022, 08/14/2017, Additional history exists CKD HGB USE SMARTSET 55400 07/12/202407/12, 07/12/2023, 06/30/2023, Additional history exists DIABETES-EYE EXAM 07/19/2024 07/19/2023 (Do ne elsewhere), 10/28/2021, 11/02/2020, Additional history exists Diabetic Foot Exam 07/19/2024 07/19/2023, 0 01/14/2022, 12/24/2020, Additional history exists COLONOSCOPY-EVERY 5 YRS AGES 18-100 04/25/2028 04/25/2023, 03/26/2020, 07/06/2010, Additional history exists Zoster Vaccines Discontinued 02/10/2012 DXA Scan Discontinued 01/22/2016, 12/03/2013, 09/16/2011, Additional history exists Pneumococcal Vaccine: 65+ [...] this encounter Medical Devices Implanted Type Area Reel System Operator Device Identifier Shelf Expiration Date Model / Serial / Lot Screw T2 Alpha Lock 5x47.5mm - [id number] Implanted:Qty: 1 on 09/06/2022 [place] Sean [place] [facility] [place]: Leg Upper RICHELLE : TRAUMA 06/01/2032 [id number] / / [id number] documented as of this encounter Visit Diagnoses Diagnosis Multiple myeloma not having achieved remission (HCC)- Primary Multiple myeloma, without mention of having achieved remission Type 2 diabetes mellitus with diabetic nephropathy, without long-term current use of insulin (HCC) Protein-calorie malnutrition, unspecified severity (HCC) Anemia in neoplastic disease documented in this encounter Advance Directives Documents on File Type Date Recorded Patient Teamcenter Solution Architect Expl anation POLST 10/17/2022 [place] DERS [...] Agen t (per Health Care Power of Cadd Instructor document) Reji Tello Dotts Adult Child First Alterna te Health Care Agent (per Health Care Power of Cadd Instructor document) Bowen Tello Adult Child First Alternate Health Care Agent (per Health Care Power of Cadd Instructor document) Care Teams Corporate Driver Relationship Specialty Start Date End Date Zenobia Lyon MD [address] [place] [address] [place] [address] PCP - General Family Medicine 05/22/23 documented as of this encounter"
--- OUTSIDE RECORDS SUMMARY | 2023-08-22 03:45 | External Medical Summary | Summary of Care ---
Author Name Unknown Organization [facility] Address [address] [place] [address] Phone [phone] Care Team Providers Care Manager Field Service Name Role Phone Zenobia Lyon MD Primary Care Provide r Reason for Visit * Reason Onset Date Comments Test Results 07/20/2023 Test Results Lab 07/20/2023 Encounter Details Date Type Department Care Team Description 07/20/2023 Telephone Family Medicine [address] [address] Muriel Moreira MD [address] [place] [address] [place] [address] Test Results; Test Results Lab Allergies Active Allergy Reactions Severity Noted Date Comments James Inhibitors 09/10/2002 cough on prinivil Hydrocodone 09/05/2022 Family states AMS change when taken Prednisone 05/26/2011 Blisters in throat Sulfa Antibiotics 03/19/2001 dysurea documented as of this encounter (statuses as of 07/20/2023) Medications Medication Sig Dispensed Refills Start Date [...] 75 MG Oral Tablet (pLAVix)Indications: Atherosclerosis of [place] coronary artery of [place] heart without angina pectoris Take 1 Tablet [...] as of this encounter (statuses as of 07/20/2023) Active Problems Patient Care Coordination No te [...] control in clinical research program 03/25/2015 Overview: [employer] Product Surveillance Registry PI: Kylah Lilly IV, [...] CORONARY ATHEROSCLEROSIS OF UNSPECIFIED TYPE OF VESSEL, [place] OR GRAFT Last Assessment & Plan: Stable. 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 [...] glenn ek & Lt. leg ; Rt. evangelical 07/0207/18/2002 07/15/2015 Dyslipidemia, goal to be determined [...] as of this encounter (statuses as of 07/20/2023) Immunizations Name Administration Dates Next Due COVID-19 mRNA, LNP-s, No Pre serve, 2-Dose Series (Moderna) 08/24/2021,12/07/2020,11/09/2020 COVID-19, MRNA-LNP, 23-24, P F, 30 MCG/0.3 mL, 12 YRS AND ABOVE, IM ([employer]-Comirnat) 07/19/2023 Covid-19, Mrna, Lnp-s, Pf, B ivalent, [...] encounter Miscellaneous Notes * Telephone Encounter - Pietro Sykes MD - 07/20/2023 11:39 AM EDT ER physician from [facility] spoke with me, reviewed the blood workup findings, that planning to transfuse him in the ER, may require admission if It takes longer. * Telephone Encounter - Kalia Bansal LPN - 07/20/2023 8:56 AM EDT Contacted hematology about blood levels and they are going to get him in to get blood transfusion While talking to hematology office I contacted pt Tereza about Blood Levels and that they will be calling them to get him in for transfusion and she stated when she went in at 7 am to give him his med's he stated he was very SOB and they called [facility] at home triage line and was advised to call 911. EMS is actively at house now and pt is refusing to go to ER. I talked to EMS and advised her of his blood levels and that he needs to go so can get blood she's stated I can not make him go. Iadvised his son or tereza may help talk him into going to ER. I did communicate all this info to Ludivina Eden RN at Hematology and she was trying to get in touch with pt. Ludivina from hematology office confirmed pt is in route to ER and will be treated and given blood * Telephone Encounter - Ludviina Eden LPN - 07/20/2023 8:50 AM EDT Spoke Doni Bansal, clinic nurse, about setting patient up for transfusion, patient saw Dr. Marrero in office, hgb 6.7, called blood bank and spoke to Torrie from [facility] to get Marshall scheduled for transfusion outpatient, during conversation was notified that EMS is there and Tereza would likepatient to go to ED, patient is on way to [facility] ED, notified [facility] that patient is coming by ambulance due to being SOB and outpatient services will not be needed. GALO Sykes * Telephone Encounter - Muriel Marrero MD - 07/20/2023 8:29 AM EDT Critically low Hgb in context of multiple myeloma, shortness of breath, fatigue and recent weekly blood transfusions. Hematology can you please arrange PRBC transfusion with patient? Nursing please help coordinate documented in this encounter Plan of Treatment Upcoming Encounters Date Type Specialty Care Team Description 07/21/2023 Home Visit [facility] Lila Brownlee, RN [address] [place] [address] 07/26/2023 Laboratory [facility] [address] [place] [address] 08/09/2023 Laboratory [facility] [address] [place] [address] 08/23/2023 Laboratory Laboratory [facility] [address] [place] [address] 08/29/2023 Office Visit Cardiology Chris Choudhury PA-C [address] [place] [address] 09/06/2023 Laboratory Laboratory [facility] [address] [place] [address] 09/20/2023 Laboratory Laboratory [facility] [address] [place] [address] 10/04/2023 Laboratory Laboratory Processing [facility] [address] [place] [address] 10/18/2023 Laboratory Laboratory Processing [facility] [address] [place] [address] 10/19/2023 Office Visit Family Medicine Zenobia Lyon MD [address] [place] [address] [place] [address] 11/01/2023 Laboratory Laboratory Processing [facility] [address] [place] [address] 11/15/2023 Laboratory Laboratory Processing [facility] [address] [place] [address] 11/29/2023 Laboratory Laboratory Processing [facility], [facility] Draw [address] [place] [address] 12/13/2023 Laboratory Laboratory Processing [facility], [facility] Draw [address] [place] [address] Scheduled Procedures Name Priority Associated Diagnoses Date/Ti me COLONOSCOPY FLEXIBLE PROXIMA L DIAGNOSTIC Recall History of colonic polyps Health Maintenance Due Date Last Done Comments Alpha-1 Antitrypsin 1952 DTaP,Tdap,and Td Vaccines (2 - Td or Tdap) 01/11/2023 01/11/2013, 04/01/2003, 04/01/2003 HbA1c 07/27/2023 01/25/2023, 1203/2022, 01/14/2022, Additional history exists O2 ASSESSMENT COMPLETED IN PAST YEAR FOR COPD 09/06/2023 09/06/2022 CKD PHOS USE SMARTSET 25946 09/07/2023 12/0 04/2022, 09/05/2022, 01/14/2022, Additional history exists Depression Screening 01/25/2024 01/24/2023 DIG LEVEL FOR MEDICATION MONITORING YEARLY 01/26/2024 01/25/2023, 04/17/2021, 03/09/2020, Additional history exists Albumin/Creatinine Ratio 01/27/2024 023, 01/14/2022, 08/14/2017, Additional history exists CKD HGB USE SMARTSET 27239 07/19/202407/19, 07/12/2023, 07/12/2023, Additional history exists DIABETES-EYE [...] this encounter Medical Devices Implanted Type Area Wallpaper Remover Steam Device Identifier Shelf Expiration Date Model / Serial / Lot Screw T2 Alpha Lock 5x47.5mm - [id number] Implanted:Qty: 1 on 09/06/2022 by Sean Silva MD at [facility] Left: Leg Upper RICHELLE : TRAUMA 06/01/2032 [id number] / / [id number] documented as of this encounter Advance Directives Documents on File Type Date Recorded Patient Media Intern Expl anation POLST 10/17/2022 [place] OR DERS FOR LIFE-SUSTAINING TREATMENT POLST 09/10/2022 [place] OR DERS FOR LIFE-SUSTAINING TREATMENT Latest Code [...] File Name Relationship Healthcare Agent Relationship Communication Tereza tello Spouse Health Care Agen t (per Health Care Power of Drawer In Hand document) Reji Tello Dotts Adult Child First Alterna te Health Care Agent (per Health Care Power of Drawer In Hand document) Bowen Tello Adult Child First Alternate Health Care Agent (per Health Care Power of Drawer In Hand document) Care Teams Manager Field Service Relationship Specialty Start Date End Date Zenobia Lyon MD [address] [place] [address] [place] [address] PCP - General Family Medicine 05/22/23 documented as of this encounter
--- OUTSIDE RECORDS SUMMARY | 2023-08-22 03:45 | External Medical Summary | Summary of Care ---
Author Name Unknown Organization [facility] Address [address] [place] [address] Phone [phone] Care Team Providers Care Aviation Technician Name Role Phone Zenobia Lyon MD Primary Care Provide r Reason for Visit * Reason Onset Date Comments Referral 07/19/2023 Podiatry Encounter Details Date Type Department Care Team Description 07/19/2023 Telephone Family [address] [address] Zenobia Lyno MD [address] [place] [address] [place] [address] Referral (Podiatry ) Allergies Active Allergy Reactions Severity Noted Date [...] MG Oral Tablet (pLAVix)Indications: Atherosclerosis of [place] coronary artery of [place] heart without angina pectoris Take 1 Tablet [...] CORONARY ATHEROSCLEROSIS OF UNSPECIFIED TYPE OF VESSEL, [place] OR GRAFT Last Assessment & Plan: Stable. [...] infection without hematuria 202101/24/2023 Overview: Xavier to [facility] 04/20-04/29 urosepsis multi drug resistant E. [...] glenn ek & Lt. leg ; Rt. methodist 07/0207/18/2002 07/15/2015 Dyslipidemia, goal to be determined [...] MCG/0.3 mL, 12 YRS AND ABOVE, IM ([employer]-Comirnat) 07/19/2023 Covid-19, Mrna, Lnp-s, Pf, B ivalent, [...] as of this encounter Miscellaneous Notes * Addendum Note - Ludivina Shahid CMA - 07/20/2023 8:38 AM EDTAddended by: LUDIVINA SHAHID on: 07/20/2023 08:38 AM Modules accepted: Orders * Telephone Encounter - Ludivina Shahid CMA - 07/20/2023 8:35 AM EDT Podiatry referral needed. Pended * Telephone Encounter - CASTRO Johnson - 07/19/2023 4:26 PM EDT I will need a Podiatry referral placed to schedule w/ Podiatry in [place] documented in this encounter Plan of Treatment Upcoming Encounters Date Type Specialty Care Team Description 07/21/2023 Home Visit [facility] Lila Brownlee RN [address] [place] [address] 07/26/2023 Laboratory Laboratory Processing [facility], [facility] Draw [address] [place] [address] 08/09/2023 Laboratory Laboratory Processing [facility], [facility] Draw [address] [place] [address] 08/23/2023 Laboratory Laboratory Processing [facility], [facility] Draw [address] [place] [address] 08/29/2023 Office Visit Cardiology Chris Choudhury PA-C [address] [place] [address] 09/06/2023 Laboratory Laboratory Processing [facility], [facility] [address] [place] [address] 09/20/2023 Laboratory Laboratory Processing [facility] [address] [place] [address] 10/04/2023 Laboratory Laboratory Processing [facility] [address] [place] [address] 10/18/2023 Laboratory Laboratory Processing [facility], [facility] [address] [place] [address] 10/19/2023 Office Visit Family Medicine Zenobia Lyon MD [address] [place] [address] [place] [address] 11/01/2023 Laboratory Laboratory Processing [facility] [address] [place] [address] 11/15/2023 Laboratory Laboratory Processing [facility], [facility] [address] [place] [address] 11/29/2023 Laboratory Laboratory Processing [facility], [facility] [address] [place] [address] 12/13/2023 Laboratory Laboratory Processing [facility], [facility] [address] [place], [place] [address] Scheduled Procedures Name Priority Associated Diagnoses Date/Ti me COLONOSCOPY FLEXIBLE PROXIMA L DIAGNOSTIC Recall History of colonic polyps Health Maintenance Due Date Last Done Comments Alpha-1 Antitrypsin 1952 DTaP,Tdap,and Td Vaccines (2 - Td or Tdap) 01/11/2023 01/11/2013, 04/01/2003, 04/01/2003 HbA1c 07/27/2023 01/25/2023, 1203/2022, 01/14/2022, Additional history exists O2 ASSESSMENT COMPLETED IN PAST YEAR FOR COPD 09/06/2023 09/06/2022 CKD PHOS USE SMARTSET 72552 09/07/2023 120 04/2022, 09/05/2022, 01/14/2022, Additional history exists Depression Screening 01/25/2024 01/24/2023 DIG LEVEL FOR MEDICATION MONITORING YEARLY 01/26/2024 01/25/2023, 04/17/2021, 03/09/2020, Additional history exists Albumin/Creatinine Ratio 01/27/2024 023, 01/14/2022, 08/14/2017, Additional history exists CKD HGB USE SMARTSET 87589 07/19/202407/19, 07/12/2023, 07/12/2023, Additional history exists DIABETES-EYE [...] this encounter Medical Devices Implanted Type Area Benefits Clerk Device Identifier Shelf Expiration Date Model / Serial / Lot Screw T2 Alpha Lock 5x47.5mm - [id number] Implanted:Qty: 1 on 09/06/2022 by Sean Silva [place] [facility] Left: Leg Upper RICHELLE : TRAUMA 06/01/2032 [id number] / / [id number] documented as of this encounter Visit Diagnoses Diagnosis Type 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 (HCC)- Primary documented in this encounter Advance Directives Documents on File Type Date Recorded Patient Ward 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 anation POLST 10/17/2022 [place] OR DERS FOR LIFE-SUSTAINING TREATMENT POLST 09/10/2022 [place] OR DERS FOR LIFE-SUSTAINING TREATMENT Latest Code [...] Agen t (per Health Care Power of Facilities Maintenance Assistant document) Reji Tello Neil Adult Child First Alterna te Health Care Agent (per Health Care Power of Facilities Maintenance Assistant document) Boewn Tello Adult Child First Alternate Health Care Agent (per Health Care Power of Facilities Maintenance Assistant document) Care Teams Aviation Technician Relationship Specialty Start Date End Date Zenobia Lyon MD [address] [place] [address] [place] [address] PCP - General Family Medicine 05/22/23 documented as of this encounter
--- OUTSIDE RECORDS SUMMARY | 2023-08-22 03:45 | External Medical Summary | Summary of Care ---
Author Name Unknown Organization [facility] Address [address] [place] [address] Phone [phone] Care Team Providers Care Underwriting Specialist Name Role Phone Zenobia Lyon MD Primary Care Provide r Reason for Visit * Reason Onset Date Comments Test Results 07/20/2023 Test Results Lab 07/20/2023 Encounter Details Date Type Department Care Team Description 07/20/2023 Telephone Family Medicine [address] [address] Muriel Moreira MD [address] [place] [address] [place] [address] Test Results; Test Results Lab Allergies [...] 75 MG Oral Tablet (pLAVix)Indications: Atherosclerosis of [place] coronary artery of [place] heart without angina pectoris Take 1 Tablet [...] control in clinical research program 03/25/2015 Overview: [employer] Product Surveillance Registry PI: Kylah Lilly IV, [...] CORONARY ATHEROSCLEROSIS OF UNSPECIFIED TYPE OF VESSEL, [place] OR GRAFT Last Assessment & Plan: Stable. [...] infection without hematuria 202101/24/2023 Overview: Xavier to [facility] 04/20-04/29 urosepsis multi drug resistant [...] glenn ek & Lt. leg ; Rt. denominational 07/0207/18/2002 07/15/2015 Dyslipidemia, goal to be determined [...] MCG/0.3 mL, 12 YRS AND ABOVE, IM ([employer]-Comirnat) 07/19/2023 Covid-19, Mrna, Lnp-s, Pf, B ivalent, [...] encounter Miscellaneous Notes * Telephone Encounter - Kalia Bansal LPN [...] he was very SOB and they called [facility] home triage line and was advised [...] and given blood * Telephone Encounter - Ludivina Eden LPN - 07/20/2023 8:50 AM EDT Spoke Doni Bansal, clinic nurse, about setting patient up for transfusion, patient saw Dr. Marrero in office, hgb 6.7, called blood bank and spoke to Torrie from [facility] to get [place] scheduled for transfusion outpatient, during conversation was notified that EMS is there and Tereza would likepatient to go to ED, patient is on way to [facility] ED, notified [facility] that patient is coming by ambulance [...] at Home Lila Brownlee RN [address] [facility] [place] [address] 07/26/2023 Laboratory [facility] [address] [place] [address] 08/09/2023 Laboratory Laboratory [facility] [address] [place] [address] 08/23/2023 Laboratory Laboratory [facility] [address] [place] [address] 08/29/2023 Office Visit Cardiology Chris Choudhury PA-C [address] [facility] [address] 09/06/2023 Laboratory Laboratory [facility] [address] [place] [address] 09/20/2023 Laboratory Laboratory [facility] [address] [place] [address] 10/04/2023 Laboratory Laboratory [facility] [address] [place] [address] 10/18/2023 Laboratory Laboratory [facility] [address] [place] [address] 10/19/2023 Office Visit Family Medicine Zenobia Lyon MD [address] [place] [address] [place] [address] 11/01/2023 Laboratory Laboratory Processing [facility], [facility] [address] [place] [address] 11/15/2023 Laboratory Laboratory Processing [facility], [facility] [address] [place] [address] 11/29/2023 Laboratory Laboratory Processing [facility], [facility] [address] [place] [address] 12/13/2023 Laboratory Laboratory Processing [facility], [facility] [address] [place] [address] Scheduled Procedures Name Priority Associated Diagnoses Date/Ti me COLONOSCOPY FLEXIBLE PROXIMA L DIAGNOSTIC Recall History of colonic polyps Health Maintenance Due Date Last Done Comments Alpha-1 Antitrypsin 1952 DTaP,Tdap,and Td Vaccines (2 - Td or Tdap) 01/11/2023 01/11/2013, 04/01/2003, 04/01/2003 HbA1c 07/27/2023 01/25/2023, 03/2022, 01/14/2022, Additional history exists O2 ASSESSMENT COMPLETED IN PAST YEAR FOR COPD 09/06/2023 09/06/2022 CKD PHOS USE SMARTSET 37305 09/07/20230 04/2022, 09/05/2022, 01/14/2022, Additional history exists Depression Screening 01/25/2024 01/24/2023 DIG LEVEL FOR MEDICATION MONITORING YEARLY 01/26/2024 01/25/2023, 04/17/2021, 03/09/2020, Additional history exists Albumin/Creatinine Ratio 01/27/2024 023, 01/14/2022, 08/14/2017, Additional history exists CKD HGB USE SMARTSET 98095 07/19/202407/19, 07/12/2023, 07/12/2023, Additional history exists DIABETES-EYE [...] this encounter Medical Devices Implanted Type Area Commercial Sales Director Device Identifier Shelf Expiration Date Model / Serial / Lot Screw T2 Alpha Lock 5x47.5mm - [id number] Implanted:Qty: 1 on 09/06/2022 by Sean Silva MD at [place] [facility] Left: Leg Upper RICHELLE : TRAUMA 06/01/2032 [id number] / / [id number] documented as of this encounter Advance Directives Documents on File Type Date Recorded Patient [employer] Glazer Expl anation POLST 10/17/2022 [place] OR DERS FOR LIFE-SUSTAINING TREATMENT POLST 09/10/2022 [place] OR DERS FOR LIFE-SUSTAINING TREATMENT Latest Code [...] Name Relationship Healthcare Agent Relationship Communication Tereza leobardo Spouse Health Care Agen t (per Health Care Power of Director Of Web Marketing document) Reji Leobardo Dotts Adult Child First Alterna te Health Care Agent (per Health Care Power of Director Of Web Marketing document) Bowen Tello Adult Child First Alternate Health Care Agent (per Health Care Power of Director Of Web Marketing document) Care Teams Underwriting Specialist Relationship Specialty Start Date End Date Zenobia Lyon MD [address] [place] [address] [place] [address] PCP - General Family Medicine 05/22/23 documented as of this encounter
--- OUTSIDE RECORDS SUMMARY | 2023-08-22 03:45 | External Medical Summary | Summary of Care ---
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 [facility] Which condition are you referring this patient for? Routine Foot Care Medicare Patient? Yes Can Patient perform routine footcare without assistance? No Does patient have a chronic condition? Yes Has patient been seen in the past 6 months? No Reason for Visit * Reason Onset Date Comments Referral 07/19/2023 Podiatry Encounter Details Date Type Department Care Team Description 07/19/2023 Telephone Family Medicine [address] [phone] Zenobia Lyon MD [address] [place] [address] [place] Vas[place] [address] Referral (Podiatry ) Allergies Active Allergy Reactions Severity Noted Date Comments James Inhibitors 09/10/2002 cough on prinivil Hydrocodone 09/05/2022 Family states AMS change when taken Prednisone 05/26/2011 Blisters in throat Sulfa Antibiotics 03/19/2001 dysurea documented as of this encounter (statuses as of 07/20/2023) Medications Medication Sig Dispensed Refills Start Date End Date Status OXYGENIndications:Hy poxia,Acute systolic CHF (congestive heart failure) ([facility]) 2L/min via nasal cannula 24 hours continous, [...] 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 ([facility]) Use to test blood sugar as needed [...] Oral Tablet (pLAVix)Indications: Atherosclerosis of [place] coronary artery of [place] heart without angina pectoris Take 1 Tablet [...] CORONARY ATHEROSCLEROSIS OF UNSPECIFIED TYPE OF VESSEL, EEK OR GRAFT Last Assessment & Plan: Stable. [...] infection without hematuria 202101/24/2023 Overview: Xavier to [facility] 04/20-04/29 urosepsis multi drug resistant E. [...] glenn ek & Lt. leg ; Rt. catholic 07/0207/18/2002 07/15/2015 Dyslipidemia, goal to be [...] encounter Miscellaneous Notes * Addendum Note - Muriel Marrero MD - 07/20/2023 3:05 PM EDT Addended by: MURIEL BURLESON on: 07/20/2023 03:05 PM Modules accepted: Orders * Addendum Note - Ludivina Shahid CMA - 07/20/2023 8:38 AM EDTAddended by: LUDIVINA SHAHID on: 07/20/2023 08:38 AM Modules accepted: Orders * Telephone Encounter - Ludivina Shahid CMA - 07/20/2023 8:35 AM EDT Podiatry referral needed. Pended * Telephone Encounter - CASTRO Johnson - 07/19/2023 4:26 PM EDT I will need a Podiatry referral placed to schedule w/ Podiatry in [place] documented in this encounter Plan of Treatment Upcoming Encounters Date Type Specialty Care Team Description 07/21/2023 Home Visit [facility] Lila Brownlee, RN [address] [place] [address] 07/26/2023 Laboratory [facility] [address] [place] [address] 08/09/2023 Laboratory [facility] [address] [place] [address] 08/23/2023 Laboratory [facility] [address] [place] [address] 08/29/2023 Office Visit Cardiology Chris Choudhury PA-C [address] [place] [address] 09/06/2023 Laboratory Laboratory [facility] [address] [place] [address] 09/20/2023 Laboratory Laboratory [facility] [address] [place] [address] 10/04/2023 Laboratory [facility] [address] [place] [address] 10/18/2023 Laboratory [facility] [address] [place] [address] 10/19/2023 Office Visit Family Medicine Zenobia Lyon MD [address] [place] [address] THA Vasquez [phone] 11/01/2023 Laboratory Laboratory Processing [facility] [address] [place] [address] 11/15/2023 Laboratory Laboratory Processing [facility], [facility] [address] [place] [address] 11/29/2023 Laboratory Laboratory Processing [facility], [facility] [address] [place] [address] 12/13/2023 Laboratory Laboratory Processing [facility], [facility] [address] [place] [address] Scheduled Procedures Name Priority Associated Diagnoses Date/Ti me COLONOSCOPY FLEXIBLE PROXIMA L DIAGNOSTIC Recall History of colonic polyps Scheduled Referrals Name Type Priority Associated Diagnoses Orde r Schedule PODIATRY REFERRAL OP Referral Within 30 days (routine) Type 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 (HCC) Ordered: 07/20/2023 Health Maintenance Due Date Last Done Comments Alpha-1 Antitrypsin 1953 DTaP,Tdap,and Td Vaccines (2 - Td or Tdap) 01/11/2023 01/11/2013, 04/01/2003, 04/01/2003 HbA1c 07/27/2023 01/25/2023, 03/2022, 01/14/2022, Additional history exists O2 ASSESSMENT COMPLETED IN PAST YEAR FOR COPD 09/06/2023 09/06/2022 CKD PHOS USE SMARTSET 70312 09/07/202304/2022, 09/05/2022, 01/14/2022, Additional history exists Depression Screening 01/25/2024 01/24/2023 DIG LEVEL FOR MEDICATION MONITORING YEARLY 01/26/2024 01/25/2023, 04/17/2021, 03/09/2020, Additional history exists Albumin/Creatinine Ratio 01/27/2024 023, 01/14/2022, 08/14/2017, Additional history exists CKD HGB USE SMARTSET 08426 07/19/202407/19, 07/12/2023, 07/12/2023, Additional history exists DIABETES-EYE [...] this encounter Medical Devices Implanted Type Area Professor Of Vegetable Science Device Identifier Shelf Expiration Date Model / Serial / Lot Screw T2 Alpha Lock 5x47.5mm - [id number] Implanted:Qty: 1 on 09/06/2022 by Sean Silva MD at OR [facility] Left: Leg Upper RICHELLE : TRAUMA 06/01/2032 [id number] / / [id number] documented as of this encounter Visit Diagnoses Diagnosis Type 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 (HCC)- Primary documented in this encounter Advance Directives Documents on File Type Date Recorded Patient Skin Therapist Expl anation POLST 10/17/2022 [place] OR DERS [...] Agen t (per Health Care Power of First Front Ventilator document) Reji Tello Dotts Adult Child First Alterna te Health Care Agent (per Health Care Power of First Front Ventilator document) Bowen Tello Adult Child First Alternate Health Care Agent (per Health Care Power of First Front Ventilator document) Care Teams Electric Motor Winder Relationship Specialty Start Date End Date Zenobia Lyon MD [address] [place] [address] THA Vasquez [phone] PCP - General Family Medicine 05/22/23 documented as of this encounter
--- OUTSIDE RECORDS SUMMARY | 2023-08-22 03:45 | External Medical Summary | Summary of Care ---
Author Name Unknown Organization [facility] Address [address] [place] [address] Phone [phone] Care Team Providers Care Stagecraft Teacher Name Role Phone Zenobia Lyon MD Primary Care Provide r Reason for Visit * Reason Onset Date Comments Referral 07/19/2023 Podiatry Encounter Details Date Type Department Care Team Description 07/19/2023 Telephone [address] [phone] Zenobia Lyon MD [address] [place] [address] [place] Vas[place] [address] Referral (Podiatry ) Allergies [...] MG Oral Tablet (pLAVix)Indications: Atherosclerosis of [place] coronary artery of [place] heart without angina pectoris Take 1 Tablet [...] CORONARY ATHEROSCLEROSIS OF UNSPECIFIED TYPE OF VESSEL, [place] OR GRAFT Last Assessment & Plan: Stable. [...] infection without hematuria 202101/24/2023 Overview: Xavier to [facility] 04/20-04/29 urosepsis multi drug resistant [...] glenn ek & Lt. leg 98; Rt. restorationism 07/0207/18/2002 07/15/2015 Dyslipidemia, goal to be determined [...] MCG/0.3 mL, 12 YRS AND ABOVE, IM ([facility]) 07/19/2023 Covid-19, Mrna, Lnp-s, Pf, B ivalent, [...] encounter Miscellaneous Notes * Telephone Encounter - CASTRO Johnson - 07/19/2023 4:26 PM EDT I will need a Podiatry referral placed to schedule w/ Podiatry in [place] documented in this encounter Plan of Treatment Upcoming Encounters Date Type Specialty Care Team Description 07/21/2023 Home Visit [facility] Lila Brownlee, RN [address] [place] [address] 07/26/2023 Laboratory [facility] [address] [place] [address] 08/09/2023 Laboratory Laboratory [facility] [address] [place] [address] 08/23/2023 Laboratory Laboratory [facility] [address] [place] [address] 08/29/2023 Office Visit Cardiology Chris Choudhury PA-C [address] [place] [address] 09/06/2023 Laboratory Laboratory [facility] [address] [place] [address] 09/20/2023 Laboratory Laboratory [facility] [address] [place] [address] 10/04/2023 Laboratory Laboratory [facility] [address] [place] [address] 10/18/2023 Laboratory [facility] [address] [place] [address] 10/19/2023 Office Visit Family Medicine Zenobia Lyon MD [address] [place] [address] THA Vasquez [phone] 11/01/2023 Laboratory Laboratory [place] [facility] [address] [place] [address] 11/15/2023 Laboratory Laboratory Processing [facility] [address] [place] [address] 11/29/2023 Laboratory Laboratory Processing [facility] [address] [place] [address] 12/13/2023 Laboratory Laboratory Processing [facility] [place] [address] [place] [address] Scheduled Procedures Name Priority Associated Diagnoses Date/Ti me COLONOSCOPY FLEXIBLE PROXIMA L DIAGNOSTIC Recall History of colonic polyps Health Maintenance Due Date Last Done Comments Alpha-1 Antitrypsin 1953 DTaP,Tdap,and Td Vaccines (2 - Td or Tdap) 01/11/2023 01/11/2013, 04/01/2003, 04/01/2003 HbA1c 07/27/2023 01/25/2023, 03/2022, 01/14/2022, Additional history exists O2 ASSESSMENT COMPLETED IN PAST YEAR FOR COPD 09/06/2023 09/06/2022 CKD PHOS USE SMARTSET 17789 09/07/2023 120 04/2022, 09/05/2022, 01/14/2022, Additional history exists Depression Screening 01/25/2024 01/24/2023 DIG LEVEL FOR MEDICATION MONITORING YEARLY 01/26/2024 01/25/2023, 04/17/2021, 03/09/2020, Additional history exists Albumin/Creatinine Ratio 01/27/202401/26/ 023, 01/14/2022, 08/14/2017, Additional history exists CKD HGB USE SMARTSET 48243 07/19/202407/193, 07/12/2023, 07/12/2023, Additional history exists DIABETES-EYE EXAM [...] this encounter Medical Devices Implanted Type Area Rotary Drier Feeder Device Identifier Shelf Expiration Date Model / Serial / Lot Screw T2 Alpha Lock 5x47.5mm - [id number] Implanted:Qty: 1 on 09/06/2022 by Sean Silva MD at [facility] Left: Leg Upper RICHELLE : TRAUMA 06/01/2032 [id number] / / [id number] documented as of this encounter Advance Directives Documents on File Type Date Recorded Patient Segmental Wall Installer Expl anation POLST 10/17/2022 [place] OR DERS FOR LIFE-SUSTAINING TREATMENT POLST 09/10/2022 [place] OR DERS FOR LIFE-SUSTAINING TREATMENT Latest Code [...] Agen t (per Health Care Power of Helicopter Utility Aircrewman document) Reji Tello Dotts Adult Child First Alterna te Health Care Agent (per Health Care Power of Helicopter Utility Aircrewman document) Bowen Tello Adult Child First Alternate Health Care Agent (per Health Care Power of Helicopter Utility Aircrewman document) Care Teams Stagecraft Teacher Relationship Specialty Start Date End Date Zenobia Lyon MD [address] [place] [address] [place] Vas[place] [address] PCP - General Family Medicine 05/22/23 documented as of this encounter
--- OUTSIDE RECORDS SUMMARY | 2023-08-22 03:46 | External Medical Summary ---
Author Name Unknown Address Unknown Organization [id number]:[facility] [address] [place] [address] Laboratory Report Ordering Provider Test Date Status KEVIN JONES 07/19/2023 15:51:50 Final Observation Date Value Abnormality Reference (Units ) Status WBC, Total 07/19/2023 15:51:50 5.69 4.00-10.80 (K/uL) Final RBC 07/19/2023 15:51:50 1.99 4.50-5.25 (M/uL) Final Hemoglobin 07/19/2023 15:51:50 6.7 Below lower panic limits 14.0-16.8 (g/dL) Final HCT 07/19/2023 15:51:50 23.0 Below low normal 40.0-48.4 (%) Final MCV 07/19/2023 15:51:50 115.6 82.0-99.5 (fL) Final MCH 07/19/2023 15:51:50 33.7 27.0-34.0 (pg) Final MCHC 07/19/2023 15:51:50 29.1 32.0-36.0 (g/dL) Final RDW 07/19/2023 15:51:50 19.3 11.5-15.5 (%) Final Platelets 07/19/2023 15:51:50 263 140-400 (K/uL) Final MPV 07/19/2023 15:51:50 10.0 6.6-11.1 (fL) Final Nucleated erythrocytes/100 leukocytes [Ratio] in Blood by Automated count 07/19/2023 15:51:50 0 <=0 (/100 WBCs) Final Performing Location [facility] [place] [address] [place] [address]
--- OUTSIDE RECORDS SUMMARY | 2023-08-22 03:46 | External Medical Summary | Summary of Care ---
Author Name Unknown Organization [facility] Address [address] [place] [address] Phone [phone] Care Team Providers Care Note Specialist Name Role Phone Zenobia Lyon MD Primary Care Provide r Reason for Visit * Reason Onset Date Comments Test Results Lab 07/13/2023 Encounter Details Date Type Department Care Team Description 07/13/2023 Telephone Hematology/Oncology [facility] [address] [place] [address] Pietro Sykes MD [address] [place] [address] Test Results Lab Allergies Active Allergy Reactions Severity Noted Date Comments James Inhibitors 09/10/2002 cough on prinivil Hydrocodone 09/05/2022 Family states AMS change when taken Prednisone 05/26/2011 Blisters in throat Sulfa Antibiotics 03/19/2001 dysurea documented as of this encounter (statuses as of 07/13/2023) Medications Medication Sig Dispensed Refills Start Date [...] 75 MG Oral Tablet (pLAVix)Indications: Atherosclerosis of [place] coronary artery of [place] heart without angina pectoris Take 1 Tablet [...] as of this encounter (statuses as of 07/13/2023) Active Problems Patient Care Coordination No te [...] iron Blood in stool Problem Noted Date 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 leg ; Rt. judaism 07/0207/18/2002 07/15/2015 Dyslipidemia, goal to be determined [...] as of this encounter (statuses as of 07/13/2023) Immunizations Name Administration Dates Next Due COVID-19 mRNA, LNP-s, No Pre serve, 2-Dose Series (Moderna) 08/24/2021,12/07/2020,11/09/2020 Covid-19, Mrna, Lnp-s, Pf, B ivalent, 30 [...] Miscellaneous Notes * Telephone Encounter - Ludivina EdenALAM - 07/13/2023 8:51 AM EDT Patient to receive 1 unit of PRBC per provider. Called [facility] blood bank. Spoke to toby, blood is available for today. Called [facility], spoke to Annemarie. Patient scheduled for 07/14/23 at 11 am. Called [facility], patient's to notify. She verbalizes understanding, and she will let Marshall know. Nursing: Dr. Sykes ordering 1 unit of PRBC, need to fax order to [facility]. Thanks! ----- Message from Pietro Sykes MD sent at 07/13/2023 6:44 AM EDT ----- Blood workup done on 07/12/2023: -hemoglobin level -> 7. WBC 4500, Platelet count [id number] -BUN/Creat: 32/1.5, Calcium 9.4. -Ferritin level -> 40 Transfuse 1 unit of PRBC Lasix 20 mg after the transfusion He should continue oral iron replacement therapy. Repeat CBCD in about 2 weeks documented in this encounter Plan of Treatment Upcoming Encounters Date Type Specialty Care Team Description 07/17/2023 Office Visit Dermatology Pilar Joseph PA-C [address] [place] [address] [place] [address] 07/21/2023 Home Visit [facility] Lila Brownlee, RN [address] [place] [address] 07/26/2023 Laboratory Laboratory Processing [facility] [place] [address] [place] [address] 07/31/2023 Office Visit Family Medicine Zenobia Lyon MD [address] [place] [address] [place] [address] 08/09/2023 Laboratory Laboratory Processing [facility], [facility] [address] [place] [address] 08/23/2023 Laboratory Laboratory Processing [facility] [address] [place] [address] 08/29/2023 Office Visit Cardiology Chris Choudhury PA-C [address] [place] [address] 09/06/2023 Laboratory [facility] [address] [place] [address] 09/20/2023 Laboratory Laboratory [facility] [address] [place] [address] 10/04/2023 Laboratory Laboratory [facility] [address] [place] [address] 10/18/2023 Laboratory Laboratory [facility] [address] [place] [address] 11/01/2023 Laboratory Laboratory [facility] [address] [place] [address] 11/15/2023 Laboratory Laboratory Processing [facility], [facility] [address] [place] [address] 11/29/2023 Laboratory Laboratory Processing [facility] [address] [place] [address] 12/13/2023 Laboratory Laboratory [facility] [address] [place] [address] Scheduled Procedures Name Priority Associated Diagnoses Date/Ti me COLONOSCOPY FLEXIBLE PROXIMA L DIAGNOSTIC Recall History of colonic polyps Health Maintenance Due Date Last Done Comments Alpha-1 Antitrypsin 1953 DIABETES-EYE EXAM 10/28/2022 10/28/2021, , 10/30/2019, Additional history exists DTaP,Tdap,and Td Vaccines (2 - Td or Tdap) 01/11/2023 01/11/2013, 04/01/2003, 04/01/2003 Diabetic Foot Exam 01/14/2023 01/14/2022, 0 12/24/2020, 03/09/2020, Additional history exists COVID-19 Vaccine ( season) 2023 08/29/2022, 04/27/2022, 08/24/2021, Additional history exists HbA1c 07/27/2023 01/25/2023, 1203/2022, 01/14/2022, Additional history exists O2 ASSESSMENT COMPLETED IN PAST YEAR FOR COPD 09/06/2023 09/06/2022 CKD PHOS USE SMARTSET 59475 09/07/202304/2022, 09/05/2022, 01/14/2022, Additional history exists Depression Screening 01/25/2024 01/24/2023 DIG LEVEL FOR MEDICATION MONITORING YEARLY 01/26/2024 01/25/2023, 04/17/2021, 03/09/2020, Additional history exists Albumin/Creatinine Ratio 01/27/2024 023, 01/14/2022, 08/14/2017, Additional history exists CKD HGB USE SMARTSET 77683 07/12/202407/12, 07/12/2023, 06/30/2023, Additional history exists COLONOSCOPY-EVERY 5 YRS AGES 18-100 04/25/2028 04/25/2023, 03/26/2020, 07/06/2010, Additional history exists Zoster Vaccines Discontinued 02/10/2012 DXA Scan Discontinued 01/22/2016, 09/02, 09/16/2011, Additional history exists Pneumococcal Vaccine: 65+ Years Completed 01/22/2019, 01/30/2015, 08/22/2006 Influenza Vaccine (FLU shot) Completed 06/22/2023, 07/22/2022, 06/17/2021, Additional history exists GARDASIL-HPV IMMUNIZATION SERIES Aged Out No longer eligible based on patient's age to complete this topic Hepatitis B Aged Out No longer eligi ble based on patient's age to complete this topic MENINGOCOCCAL (MENACTRA/MENVEO) Aged Out No longer eligible based on patient's age to complete this topic documented as of this encounter Medical Devices Implanted Type Area Biofuels Product Manager Device Identifier Shelf Expiration Date Model / Serial / Lot Screw T2 Alpha Lock 5x47.5mm - [id number] Implanted:Qty: 1 on 09/06/2022 by Sean Silva MD at OR [facility] [place] Left: Leg Upper RICHELLE : TRAUMA 06/01/2032 [id number] / / [id number] documented as of this encounter Advance Directives Documents on File Type Date Recorded Patient Digital Circuit Designer Expl anation POLST 10/17/2022 [place] OR DERS FOR LIFE-SUSTAINING TREATMENT POLST 09/10/2022 [place] OR DERS FOR LIFE-SUSTAINING TREATMENT Latest Code [...] Agen t (per Health Care Power of Plastics Tooling Engineer document) Reji Prabhakarts Adult Child First Alterna te Health Care Agent (per Health Care Power of Plastics Tooling Engineer document) Bowen Tello Adult Child First Alternate Health Care Agent (per Health Care Power of Plastics Tooling Engineer document) Care Teams Note Specialist Relationship Specialty Start Date End Date Zenobia Lyon MD [address] [place] [address] [place] Vas[place] [phone] PCP - General Family Medicine 05/22/23 documented as of this encounter
--- OUTSIDE RECORDS SUMMARY | 2023-08-22 03:46 | External Medical Summary | Summary of Care ---
Author Name Unknown Organization [facility] Address [address] [place] [address] Phone [phone] Care Team Providers Care Print Producer Name Role Phone Zenobia Lyon MD Primary Care Provide r Reason for Visit * Reason Comments Outpatient Testing Encounter Details Date Type Department Care Team Description 07/19/2023 Laboratory Laboratory [address] [place] [phone] [place] [address] Multiple myeloma not having achieved remission (HCC); Anemia in neoplastic disease Allergies Active Allergy [...] block,Coronary atherosclerosis one per day 34 Tablet 05/13/2022 Active Multivitamin Adult Oral Tablet Take [...] 75 MG Oral Tablet (pLAVix)Indications: Atherosclerosis of chickahom[place] indians-eastern division coronary artery of chick[place] indians[place] heart without angina pectoris Take 1 Tablet [...] control in clinical research program 03/25/2015 Overview: [employer] Product Surveillance Registry PI: Kylah Lilly IV, [...] CORONARY ATHEROSCLEROSIS OF UNSPECIFIED TYPE OF VESSEL, KOTZEBUE OR GRAFT Last Assessment & Plan: Stable. [...] infection without hematuria 202101/24/2023 Overview: Xavier to [facility] 04/20-04/29 urosepsis multi drug resistant [...] glenn ek & Lt. leg ; Rt. hindu 07/0207/18/2002 07/15/2015 Dyslipidemia, goal to be determined [...] MCG/0.3 mL, 12 YRS AND ABOVE, IM [facility] 07/19/2023 Covid-19, Mrna, Lnp-s, Pf, B ivalent, [...] [facility] Lila Brownlee RN [address] [facility] [place] [address] 07/26/2023 Laboratory Laboratory [facility] [address] [place] [address] 08/09/2023 Laboratory Laboratory [facility] [address] [place] [address] 08/23/2023 Laboratory Laboratory [facility] [address] [place] [address] 08/29/2023 Office Visit Cardiology Chris Choudhury PA-C [address] [place] [address] 09/06/2023 Laboratory Laboratory [facility] [address] [place] [address] 09/20/2023 Laboratory Laboratory [facility] [address] [place] [address] 10/04/2023 Laboratory Laboratory [facility] [address] [place] [address] 10/18/2023 Laboratory Laboratory Processing [facility] [address] [place] [address] 11/01/2023 Laboratory Laboratory [facility] [address] [place] [address] 11/15/2023 Laboratory Laboratory [facility] [address] [place] [address] 11/29/2023 Laboratory Laboratory [facility] [address] [place] [address] 12/13/2023 Laboratory Laboratory Processing [facility] [address] [place] [address] Pending Results Name Type Priority Associated Diagnoses Date /Time CBC Lab Routine Multiple myeloma not having achieved remission (HCC) Anemia in neoplastic disease 07/19/2023 3:51 PM EDT Scheduled Procedures Name Priority Associated Diagnoses Date/Ti me COLONOSCOPY FLEXIBLE PROXIMA L DIAGNOSTIC Recall History of colonic polyps Health Maintenance Due Date Last Done Comments Alpha-1 Antitrypsin 1952 DTaP,Tdap,and Td Vaccines (2 - Td or Tdap) 01/11/2023 01/11/2013, 04/01/2003, 04/01/2003 HbA1c 07/27/2023 01/25/2023, 1203/2022, 01/14/2022, Additional history exists O2 ASSESSMENT COMPLETED IN PAST YEAR FOR COPD 09/06/2023 09/06/2022 CKD PHOS USE SMARTSET 11799 09/07/2023 120 04/2022, 09/05/2022, 01/14/2022, Additional history exists Depression Screening 01/25/2024 01/24/2023 DIG LEVEL FOR MEDICATION MONITORING YEARLY 01/26/2024 01/25/2023, 04/17/2021, 03/09/2020, Additional history exists Albumin/Creatinine Ratio 01/27/20242 023, 01/14/2022, 08/14/2017, Additional history exists CKD HGB USE SMARTSET 30076 07/12/202407/12, 07/12/2023, 06/30/2023, Additional history exists DIABETES-EYE [...] this encounter Medical Devices Implanted Type Area Car Ferry Captain Device Identifier Shelf Expiration Date Model / Serial / Lot Screw T2 Alpha Lock 5x47.5mm - [id number] Implanted:Qty: 1 on 09/06/2022 by Sean Silva MD at OR [facility] Left: Leg Upper RICHELLE : TRAUMA 06/01/2032 [id number] / / [id number] documented as of this encounter Visit Diagnoses Diagnosis Multiple myeloma not having achieved remission (HCC) Multiple myeloma, without mention of having achieved remission Anemia in neoplastic disease documented in this encounter Advance Directives Documents on File Type Date Recorded 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 Expl anation POLST 10/17/2022 [place] OR DERS FOR LIFE-SUSTAINING TREATMENT POLST 09/10/2022 [place] OR DERS FOR LIFE-SUSTAINING TREATMENT Latest Code [...] Agen t (per Health Care Power of Rubber Mold Maker document) Reji Tello Dotts Adult Child First Alterna te Health Care Agent (per Health Care Power of Rubber Mold Maker document) Bowen Tello Adult Child First Alternate Health Care Agent (per Health Care Power of Rubber Mold Maker document) Care Teams Print Producer Relationship Specialty Start Date End Date Zenobia Lyon MD [address] [place] [address] [place] [address] PCP - General Family Medicine 05/22/23 documented as of this encounter
--- OUTSIDE RECORDS SUMMARY | 2023-08-22 03:46 | External Medical Summary ---
Author Name Unknown Address Unknown Organization K01:[place] [facility] [place] [address] [facility] [address] Laboratory Report Ordering Provider Test Date Status DEB BULL 07/12/2023 08:18:00 Final Observation Date Value Abnormality Reference (Units ) Status WBC, Total 07/12/2023 08:18:00 4.58 4.00-10.80 (K/uL) Final RBC 07/12/2023 08:18:00 2.19 4.50-5.25 (M/uL) Final Hemoglobin 07/12/2023 08:18:00 7.0 Below lower panic limits 14.0-16.8 (g/dL) Final HCT 07/12/2023 08:18:00 24.8 Below low normal 40.0-48.4 (%) Final MCV 07/12/2023 08:18:00 113.2 82.0-99.5 (fL) Final MCH 07/12/2023 08:18:00 32.0 27.0-34.0 (pg) Final MCHC 07/12/2023 08:18:00 28.2 32.0-36.0 (g/dL) Final RDW 07/12/2023 08:18:00 17.9 11.5-15.5 (%) Final Platelets 07/12/2023 08:18:00 235 140-400 (K/uL) Final MPV 07/12/2023 08:18:00 9.8 6.6-11.1 (fL) Final Nucleated erythrocytes/100 leukocytes [Ratio] in Blood by Automated count 07/12/2023 08:18:00 0 <=0 (/100 WBCs) Final Performing Location [place] [facility] [place] [address] [facility] [address]
--- OUTSIDE RECORDS SUMMARY | 2023-08-22 03:46 | External Medical Summary | Summary of Care ---
Author Name Unknown Organization [facility] Address [address] [place] [address] Phone [phone] Care Team Providers Care Salvage Inspector Wood Parts Name Role Phone Zenobia Lyon MD Primary Care Provide r Reason for Visit * Reason Onset Date Comments Test Results Lab 07/13/2023 Encounter Details Date Type Department Care Team Description 07/13/2023 Telephone Hematology/Oncology [facility] [address] [place] [address] Pietro Sykes MD [address] [place] [address] Test Results Lab Allergies Active Allergy Reactions [...] 75 MG Oral Tablet (pLAVix)Indications: Atherosclerosis of assinibo[place] and sioux coronary artery of assinibo[place] and sioux heart without angina pectoris Take 1 Tablet [...] CORONARY ATHEROSCLEROSIS OF UNSPECIFIED TYPE OF VESSEL, EYAK OR GRAFT Last Assessment & Plan: Stable. [...] infection without hematuria 202101/24/2023 Overview: Xavier to [facility] 04/20-04/29 urosepsis multi drug resistant E. Coli [...] glenn ek & Lt. leg ; Rt. congregation 07/0207/18/2002 07/15/2015 Dyslipidemia, goal to be determined [...] Miscellaneous Notes * Telephone Encounter - Ludivina Eden LPN - 07/13/2023 10:35 AM EDT Received order from RN, faxed to [facility] blood bank and [facility] * Telephone Encounter - Ludivina Eden LPN - 07/13/2023 8:51 AM EDT Patient to receive 1 unit of PRBC per provider. Called [facility] blood bank. Spoke to toby, blood is available for today. Called [facility], spoke to Annemarie. Patient scheduled for 07/14/23 at 11 am. Called [facility], patient's to notify. She verbalizes understanding, and she will let Marshall know. Nursing: Dr. Sykes ordering 1 unit of PRBC, need to fax order to [facility]. Thanks! ----- Message from Pietro Sykes MD sent at 07/13/2023 6:44 AM EDT ----- Blood workup done on 07/12/2023: -hemoglobin level -> 7. WBC 4500, Platelet count [id number] -BUN/Creat: 32/1.5, Calcium 9.4. -Ferritin level -> 40 Transfuse 1 unit of PRBC Lasix 20 mg after the transfusion He should continue oral iron replacement therapy. Repeat CBCD in about 2 weeks documented in this encounter Plan of Treatment Upcoming Encounters Date Type Specialty Care Team Description 07/17/2023 Office Visit Dermatology Pilar Joseph PA-C [address] [place] [address] [place] [address] 07/21/2023 [facility] [place] [address] 07/26/2023 Laboratory Laboratory Processing [facility] [address] [facility] [address] 07/31/2023 Office Visit Family Medicine Zenobia Lyon MD [address] [place] [address] [place] [address] 08/09/2023 Laboratory Laboratory [facility] [address] [place] [address] 08/23/2023 Laboratory Laboratory [facility] [address] [place] [address] 08/29/2023 Office Visit Cardiology Chris Choudhury PA-C [address] [place] [address] 09/06/2023 Laboratory Laboratory [facility] [address] [place] [address] 09/20/2023 Laboratory Laboratory [facility] [address] [place] [address] 10/04/2023 Laboratory Laboratory [facility] [address] [place] [address] 10/18/2023 Laboratory Laboratory [facility] [address] [place] [address] 11/01/2023 Laboratory Laboratory [facility] [address] [place] [address] 11/15/2023 Laboratory Laboratory [facility] [address] [place] [address] 11/29/2023 Laboratory Laboratory [facility] [address] [place] [address] 12/13/2023 Laboratory Laboratory [facility] [address] [place] [address] Scheduled Procedures Name Priority Associated Diagnoses Date/Ti [...] 08/24/2021, Additional history exists HbA1c 07/27/2023 01/25/2023, 12/0 03/2022, 01/14/2022, Additional history exists O2 ASSESSMENT COMPLETED IN PAST YEAR FOR COPD 09/06/2023 09/06/2022 CKD PHOS USE SMARTSET 07254 09/07/2023 12/0 04/2022, 09/05/2022, 01/14/2022, Additional history exists Depression Screening 01/25/2024 01/24/2023 DIG LEVEL FOR MEDICATION MONITORING YEARLY 01/26/2024 01/25/2023, 04/17/2021, 03/09/2020, Additional history exists Albumin/Creatinine Ratio 01/27/2024 023, 01/14/2022, 08/14/2017, Additional history exists CKD HGB USE SMARTSET 72497 07/12/202407/12, 07/12/2023, 06/30/2023, Additional history exists COLONOSCOPY-EVERY [...] this encounter Medical Devices Implanted Type Area Manufacturing Accountant Device Identifier Shelf Expiration Date Model / Serial / Lot Screw T2 Alpha Lock 5x47.5mm - [id number] Implanted:Qty: 1 on 09/06/2022 by Sean Silva MD at [facility] Left: Leg Upper RICHELLE : TRAUMA 06/01/2032 [id number] / / [id number] documented as of this encounter Advance Directives Documents on File Type Date Recorded 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 POLST 10/17/2022 [place] OR DERS FOR LIFE-SUSTAINING TREATMENT POLST 09/10/2022 [place] OR DERS FOR LIFE-SUSTAINING TREATMENT Latest Code [...] Agen t (per Health Care Power of Naval Architect document) Reji Tello Neil Adult Child First Alterna te Health Care Agent (per Health Care Power of Naval Architect document) Bowen Tello Adult Child First Alternate Health Care Agent (per Health Care Power of Naval Architect document) Care Teams Salvage Inspector Wood Parts Relationship Specialty Start Date End Date Zenobia Lyon MD [address] [place] [address] [place] [address] PCP - General Family Medicine 05/22/23 documented as of this encounter
--- OUTSIDE RECORDS SUMMARY | 2023-08-22 03:46 | External Medical Summary | Summary of Care ---
Author Name Unknown Organization [facility] Address [address] [place] [facility] [place] [address] Phone [phone] Care Team Providers Care Process Inspector Name Role Phone Zenobia Lyon MD Primary Care Provide r Encounter Details Date Type Department Care Team Description 07/19/2023 Immunization Ancillary [address] [place] [address] [place] [address] [place] [id number] Arrived Allergies Active Allergy Reactions Severity Noted Date [...] 75 MG Oral Tablet (pLAVix)Indications: Atherosclerosis of [place] coronary artery of [place] heart without angina pectoris Take 1 Tablet by mouth in the morning. 90 Tablet 06/21/2023 Active Metoprolol Succinate ER 50 MG [...] 02/08/2010 Dyslipidemia, goal LDL below 70 09/10/20 Overview: Per Lipid Taxonomy. 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 [...] 202101/24/2023 Overview: [facility] to [facility] [...] glenn ek & Lt. leg ; Rt. scientology 07/0207/18/2002 07/15/2015 Dyslipidemia, goal to be determined [...] MCG/0.3 mL, 12 YRS AND ABOVE, IM ([facility] 07/19/2023 Covid-19, Mrna, Lnp-s, Pf, B ivalent, 30 Mcg, IM, 12 yrs and above ([facility]) 08/29/2022 Pneumococcal Conjugate Vacc, 13 Valent (Prevnar) [...] Home Lila Brownlee RN [address] [place] [address] 07/26/2023 Laboratory Laboratory [facility] [address] [place] [address] 08/09/2023 Laboratory Laboratory [facility] [address] [place] [address] 08/23/2023 Laboratory Laboratory [facility] [address] [place] [address] 08/29/2023 Office Visit Cardiology Chris [facility]oudhury [facility]-C [address] [facility] [address] 09/06/2023 Laboratory Laboratory [facility] [address] [place] [address] 09/20/2023 Laboratory Laboratory [facility] [address] [place] [address] 10/04/2023 Laboratory Laboratory [facility] [address] [place] [address] 10/18/2023 Laboratory Laboratory [facility] [address] [place] [address] 11/01/2023 Laboratory Laboratory [facility] [address] [place] [address] 11/15/2023 Laboratory Laboratory [facility] [address] [place] [address] 11/29/2023 Laboratory Laboratory [facility] [address] [place] [address] 12/13/[address] [facility] Draw [address] [facility] [place] [address] Scheduled Procedures Name Priority Associated Diagnoses Date/Ti me COLONOSCOPY FLEXIBLE PROXIMA L DIAGNOSTIC Recall History of colonic polyps Health Maintenance Due Date Last Done Comments Alpha-1 Antitrypsin 1952 DTaP,Tdap,and Td Vaccines (2 - Td or Tdap) 01/11/2023 01/11/2013, 04/01/2003, 04/01/2003 HbA1c 07/27/2023 01/25/2023, 03/2022, 01/14/2022, Additional history exists O2 ASSESSMENT COMPLETED IN PAST YEAR FOR COPD 09/06/2023 09/06/2022 CKD PHOS USE SMARTSET 30754 09/07/202304/2022, 09/05/2022, 01/14/2022, Additional history exists Depression Screening 01/25/2024 01/24/2023 DIG LEVEL FOR MEDICATION MONITORING YEARLY 01/26/2024 01/25/2023, 04/17/2021, 03/09/2020, Additional history exists Albumin/Creatinine Ratio 01/27/2024 023, 01/14/2022, 08/14/2017, Additional history exists CKD HGB USE SMARTSET 81935 07/12/202407/12, 07/12/2023, 06/30/2023, Additional history exists DIABETES-EYE [...] this encounter Medical Devices Implanted Type Area Certified Registered Locksmith Device Identifier Shelf Expiration Date Model / Serial / Lot Screw T2 Alpha Lock 5x47.5mm - [id number] Implanted:Qty: 1 on 09/06/2022 by Sean Silva MD at [facility] Left: Leg Upper RICHELLE : TRAUMA 06/01/2032 [id number] / / [id number] documented as of this encounter Advance Directives Documents on File Type Date Recorded 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
--- OUTSIDE RECORDS SUMMARY | 2023-08-22 03:47 | External Medical Summary ---
Author Name Unknown Address Unknown Organization K01:[place] [place] [address] [facility] [place] [address] Laboratory Report Ordering Provider Test Date Status DEB BULL 07/12/2023 08:18:00 Final Observation Date Value Abnormality Reference (Units ) Status SYNC LEUKOCYTES IN BLOOD BY AUTOMATED COUNT 07/12/2023 08:18:00 4.58 4.00-10.80 (K/uL) Final Segs 07/12/2023 08:18:00 45.8 40.0-75.0 (%) Final Lymphs % 07/12/2023 08:18:00 30.1 18.0-42.0 (%) Final Monos 07/12/2023 08:18:00 14.6 Above high normal 1.0-11.0 (%) Final Eosinophils 07/12/2023 08:18:00 8.7 Above high normal 0.0-6.0 (%) Final Basos 07/12/2023 08:18:00 0.4 0.0-2.0 (%) Final Immature Granulocyte, Percent 07/12/2023 08:18:00 0.4 0.0-2.0 (%) Final Absolute Segs 07/12/2023 08:18:00 2.09 1.80-7.70 (K/uL) Final Lymphs, absolute 07/12/2023 08:18:00 1.38 1.00-4.80 (K/ul) Final Monos, Abs 07/12/2023 08:18:00 0.67 0.00-1.10 (K/uL) Final Eos, Abs 07/12/2023 08:18:00 0.40 0.00-0.70 (K/uL) Final Basos, Abs 07/12/2023 08:18:00 0.02 0.00-0.20 (K/uL) Final Immature Granulocytes, Number 07/12/2023 08:18:00 0.02 0.00-0.20 (K/uL) Final Performing Location [facility] [place] [facility] [address] [facility] [address]
--- OUTSIDE RECORDS SUMMARY | 2023-08-22 03:47 | External Medical Summary ---
Author Name Unknown Address Unknown Organization K01:[facility]ORY [facility] [place] [address] [place] [address] Laboratory Report Ordering Provider Test Date Status DEB BULL 07/12/2023 08:18:00 Final Observation Date Value Abnormality Reference (Units ) Status Ferritin 07/12/2023 08:18:00 40 30-400 (ng /mL) Final Performing Location LAB[facility]ORY [facility] - [address] [place] [address]
--- OUTSIDE RECORDS SUMMARY | 2023-08-22 03:47 | External Medical Summary | Summary of Care ---
Author Name Unknown Organization [facility] Address [address] [place] [address] Phone [phone] Care Team Providers Care Center Maker Hand Name Role Phone Zenobia Lyon MD Primary Care Provide r Reason for Visit * Reason Onset Date Comments FYI 07/10/2023 Encounter Details Date Type Department Care Team Description 07/10/2023 Telephone Cardiology, [facility] [address] [facility] 132 [facility] [place] [address] FYI Allergies Active Allergy Reactions Severity Noted Date Comments James Inhibitors 09/10/2002 cough on prinivil Hydrocodone 09/05/2022 Family states AMS change when taken Prednisone 05/26/2011 Blisters in throat Sulfa Antibiotics 03/19/2001 dysurea documented as of this encounter (statuses as of 07/10/2023) Medications Medication Sig Dispensed Refills Start Date [...] 75 MG Oral Tablet (pLAVix)Indications: Atherosclerosis of [place] coronary artery of [place] heart without angina pectoris Take 1 Tablet [...] as of this encounter (statuses as of 07/10/2023) Active Problems Patient Care Coordination No te [...] CORONARY ATHEROSCLEROSIS OF UNSPECIFIED TYPE OF VESSEL, [place]I OR GRAFT Last Assessment & Plan: Stable. 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 Coli [...] glenn ek & Lt. leg ; Rt. caodaism 07/0207/18/2002 07/15/2015 Dyslipidemia, goal to be determined [...] as of this encounter (statuses as of 07/10/2023) Immunizations Name Administration Dates Next Due COVID-19 [...] Miscellaneous Notes * Telephone Encounter - Ami Shay, CASTRO - 07/10/2023 12:21 PM EDT Called Pt to reschedule his pacer check at [facility] on 07/11. Spoke with Pt's . She declined to reschedule at this time. She stated that he is not well and cannot make the trip to [facility]. She asked I to be put on a list in case there is any way someone can check the pacer at [facility]. documented in this encounter Plan of Treatment Upcoming Encounters Date Type Specialty Care Team Description 07/12/2023 Laboratory [facility] [address] [place] [address] 07/17/2023 Office Visit Dermatology Pilar Joseph PA-C [address] [place] [address] [place] [address] 07/21/2023 Home Visit [facility] Lila Brownlee RN [address] [place] [address] 07/26/2023 Laboratory Laboratory Processing [facility] [address] [place] [address] 07/31/2023 Office Visit Family Medicine Zenobia Lyon MD [address] [place] [address] [place] [address] 08/09/2023 Laboratory Laboratory Processing [facility] [address] [place] [address] 08/23/2023 Laboratory Laboratory Processing [facility] [address] [place] [address] 08/29/2023 Office Visit Cardiology Chris Choudhury PA-C [address] [place] [address] 09/06/2023 Laboratory Laboratory Processing [facility] [address] [place] [address] 09/20/2023 Laboratory Laboratory Processing [facility] [address] [place] [address] 10/04/2023 Laboratory Laboratory Processing [facility] [address] [place] [address] 10/18/2023 Laboratory Laboratory Processing [facility] [address] [place] [address] 11/01/2023 Laboratory Laboratory Processing [facility] [address] [place] [address] 11/15/2023 Laboratory Laboratory Processing [facility] [address] [place] [address] 11/29/2023 Laboratory Laboratory Processing [facility] [address] [place] [address] 12/13/2023 Laboratory Laboratory Processing [facility] [address] [place] [address] Scheduled Procedures Name Priority Associated Diagnoses Date/Ti [...] 08/24/2021, Additional history exists HbA1c 07/27/2023 01/25/2023, 03/2022, 01/14/2022, Additional history exists O2 ASSESSMENT COMPLETED IN PAST YEAR FOR COPD 09/06/2023 09/06/2022 CKD PHOS USE SMARTSET 08331 09/07/202304/2022, 09/05/2022, 01/14/2022, Additional history exists Depression Screening 01/25/2024 01/24/2023 DIG LEVEL FOR MEDICATION MONITORING YEARLY 01/26/2024 01/25/2023, 04/17/2021, 03/09/2020, Additional history exists Albumin/Creatinine Ratio 01/27/2024 023, 01/14/2022, 08/14/2017, Additional history exists CKD HGB USE SMARTSET 93026 06/30/202406/30, 06/30/2023, 06/14/2023, Additional history exists COLONOSCOPY-EVERY 5 YRS AGES [...] this encounter Medical Devices Implanted Type Area Home Planning Consultant Salesperson Device Identifier Shelf Expiration Date Model / Serial / Lot Screw T2 Alpha Lock 5x47.5mm - [id number] Implanted:Qty: 1 on 09/06/2022 by Sean Silva MD at [facility] Left: Leg Upper RICHELLE : TRAUMA 06/01/2032 [id number] / / [id number] documented as of this encounter Advance Directives Documents on File Type Date Recorded Patient Skiver Box Toe Expl anation POLST 10/17/2022 [place] DERS FOR LIFE-SUSTAINING TREATMENT POLST 09/10/2022 [...] Agen t (per Health Care Power of Medical Scientific Liaison document) Reji Omer Neil Adult Child First Alterna te Health Care Agent (per Health Care Power of Medical Scientific Liaison document) Bowen Tello Adult Child First Alternate Health Care Agent (per Health Care Power of Medical Scientific Liaison document) Care Teams Center Maker Hand Relationship Specialty Start Date End Date Zenobia Lyon MD [address] [place] [address] [place] [address] PCP - General Family Medicine 05/22/23 documented as of this encounter
--- OUTSIDE RECORDS SUMMARY | 2023-08-22 03:47 | External Medical Summary ---
Author Name Unknown Address Unknown Organization K01:LABORATORY [facility] - [facility] [address] [place] [address] Laboratory Report Ordering Provider Test Date Status DEB BULL 06/30/2023 10:04:00 Final Observation Date Value Abnormality Reference (Units ) Status WBC, Total 06/30/2023 10:04:00 3.72 Below low normal 4.00-10.80 (K/uL) Final RBC 06/30/2023 10:04:00 2.15 4.50-5.25 (M/uL) Final Hemoglobin 06/30/2023 10:04:00 7.0 Below lower panic limits 14.0-16.8 (g/dL) Final HCT 06/30/2023 10:04:00 24.1 Below low normal 40.0-48.4 (%) Final MCV 06/30/2023 10:04:00 112.1 82.0-99.5 (fL) Final MCH 06/30/2023 10:04:00 32.6 27.0-34.0 (pg) Final MCHC 06/30/2023 10:04:00 29.0 32.0-36.0 (g/dL) Final RDW 06/30/2023 10:04:00 17.9 11.5-15.5 (%) Final Platelets 06/30/2023 10:04:00 245 140-400 (K/uL) Final MPV 06/30/2023 10:04:00 9.9 6.6-11.1 (fL) Final Nucleated erythrocytes/100 leukocytes [Ratio] in Blood by Automated count 06/30/2023 10:04:00 0 <=0 (/100 WBCs) Final Performing Location LAB[facility]ORY [facility] - [address] [place] [address]
--- OUTSIDE RECORDS SUMMARY | 2023-08-22 03:47 | External Medical Summary | Summary of Care ---
Author Name Unknown Organization [facility] Address [address] [place] [address] Phone [phone] Care Team Providers Care Publications Sales Representative Name Role Phone Zenobia Lyon MD Primary Care Provide r Reason for Visit * Reason Onset Date Comments Test Results Lab 07/03/2023 Encounter Details Date Type Department Care Team Description 07/03/2023 Telephone Hematology/Oncology [facility] [address] [place] [address] Pietro Sykes [facility] [address] [facility] [address] Test Results Lab Allergies Active Allergy Reactions Severity Noted Date Comments James Inhibitors 09/10/2002 cough on prinivil Hydrocodone 09/05/2022 Family states AMS change when taken Prednisone 05/26/2011 Blisters in throat Sulfa Antibiotics 03/19/2001 dysurea documented as of this encounter (statuses as of 07/03/2023) Medications Medication Sig Dispensed Refills Start Date [...] 75 MG Oral Tablet (pLAVix)Indications: Atherosclerosis of [place] coronary artery of [place] heart without angina pectoris Take 1 Tablet [...] as of this encounter (statuses as of 07/03/2023) Active Problems Patient Care Coordination No te [...] CORONARY ATHEROSCLEROSIS OF UNSPECIFIED TYPE OF VESSEL, HOPI OR GRAFT Last Assessment & Plan: Stable. 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 documented as of this encounter (statuses as of 07/03/2023) Resolved Problems Problem Noted Date Resolved Date [...] without hematuria 202101/24/2023 Overview: Xavier to [facility] 04/20-04/29 urosepsis multi drug resistant E. [...] glenn ek & Lt. leg ; Rt. confucianism 07/0207/18/2002 07/15/2015 Dyslipidemia, goal to be determined [...] as of this encounter (statuses as of 07/03/2023) Immunizations Name Administration Dates Next Due COVID-19 [...] Miscellaneous Notes * Telephone Encounter - Ludivina EdenALMA - 07/03/2023 8:32 AM EDT Patient to receive 1 unit of PRBC per provider, hgb 7.0. Called [facility] blood bank. Spoke to Casey, patient has blood available today. Called [facility], spoke to Umm. Patient scheduled for 07/04/23 at 11 am. Patient verbalized understanding of appt time. Received order from RN. Faxed order to [facility]/ blood bank. Patient has consent on file at [facility], expires on 08/16/23. Patient will be type and screened at [facility]. Called and spoke to Remedios, she verbalizes understanding and will notify [facility] about labs andappointment, patient is TE-MOAK over phone. ----- Message from Pietro Sykes MD sent at 07/02/2023 5:42 PM EDT ----- Blood workup done on 06/30/2023: -WBC 3700, H&H of 04/24, Platelet count [id number] - Transfuse 1 unit of PRBC. Lasix 20 mg after transfusion documented in this encounter Plan of Treatment Upcoming Encounters Date Type Specialty Care Team Description 07/11/2023 Cardiac [address] [facility] [address] 07/12/2023 Laboratory Laboratory Processing [facility], [facility] [address] [place] [address] 07/17/2023 Office Visit Dermatology Pilar Joseph PA-C [address] [place] [address] [place] [address] 07/21/2023 [facility] [address] 07/26/2023 Laboratory Laboratory Processing [facility], [facility] [address] [place] [address] 07/26/2023 Office Visit Family Medicine Zenobia Lyon MD [address] [place] [address] [place] [address] 08/09/2023 Laboratory Laboratory Processing [facility] [address] [place] [address] 08/23/2023 Laboratory Laboratory Processing [facility] [address] [place] [address] 08/29/2023 Office Visit Cardiology Chris Choudhury PA-Yael [address] [place] [address] 09/06/2023 Laboratory Laboratory Processing [facility] [address] [place] [address] 09/20/2023 Laboratory Laboratory Processing [facility] [address] [place] [address] 10/04/2023 Laboratory Laboratory Processing [facility] [address] [place] [address] 10/18/2023 Laboratory Laboratory Processing [facility] [address] [place] [address] 11/01/2023 Laboratory Laboratory Processing [facility] [address] [place] [address] 11/15/2023 Laboratory Laboratory Processing [facility] [address] [place] [address] 11/29/2023 Laboratory Laboratory Processing [facility] [address] [place] [address] 12/13/2023 Laboratory Laboratory Processing [facility] [address] [place] [address] Scheduled Procedures Name Priority Associated Diagnoses Date/Ti me COLONOSCOPY FLEXIBLE PROXIMA L DIAGNOSTIC Recall History of colonic polyps Health Maintenance Due Date Last Done Comments Alpha-1 Antitrypsin 1953 DIABETES-EYE EXAM 10/28/2022 10/28/2021, , 10/30/2019, Additional history exists DTaP,Tdap,and Td Vaccines (2 - Td or Tdap) 01/11/2023 01/11/2013, 04/01/2003, 04/01/2003 Diabetic Foot Exam 01/14/2023 01/14/2022, 0 12/24/2020, 03/09/2020, Additional history exists HbA1c 07/27/2023 01/25/2023, 1203/2022, 01/14/2022, Additional history exists O2 ASSESSMENT COMPLETED IN PAST YEAR FOR COPD 09/06/2023 09/06/2022 CKD PHOS USE SMARTSET 51530 09/07/2023 12/0 04/2022, 09/05/2022, 01/14/2022, Additional history exists Depression Screening 01/25/2024 01/24/2023 DIG LEVEL FOR MEDICATION MONITORING YEARLY 01/26/2024 01/25/2023, 04/17/2021, 03/09/2020, Additional history exists Albumin/Creatinine Ratio 01/27/2024 023, 01/14/2022, 08/14/2017, Additional history exists CKD HGB USE SMARTSET 47753 06/30/202406/30, 06/30/2023, 06/14/2023, Additional history exists COLONOSCOPY-EVERY 5 YRS AGES 18-100 04/25/2028 04/25/2023, 03/26/2020, 07/06/2010, Additional history exists Zoster Vaccines Discontinued 02/10/2012 DXA Scan Discontinued 01/22/2016, 09/02, 09/16/2011, Additional history exists Pneumococcal Vaccine: 65+ Years Completed 01/22/2019, 01/30/2015, 08/22/2006 COVID-19 Vaccine Completed 08/29/2022, , 08/24/2021, Additional history exists Influenza Vaccine (FLU shot) Completed 06/22/2023, 07/22/2022, [...] this encounter Medical Devices Implanted Type Area Land Acquisition Specialist Device Identifier Shelf Expiration Date Model / Serial / Lot Screw T2 Alpha Lock 5x47.5mm - [id number] Implanted:Qty: 1 on 09/06/2022 by Sean Silva MD at [facility] Left: Leg Upper RICHELLE : TRAUMA 06/01/2032 [id number] / / [id number] documented as of this encounter Advance Directives Documents on File Type Date Recorded Patient Vp Software Expl anation POLST 10/17/2022 [place] OR DERS FOR LIFE-SUSTAINING TREATMENT POLST 09/10/2022 [place] OR DERS FOR LIFE-SUSTAINING TREATMENT Latest Code [...] Agen t (per Health Care Power of Merchandising Manager document) Reji Tello Dotts Adult Child First Alterna te Health Care Agent (per Health Care Power of Merchandising Manager document) Bowen Tello Adult Child First Alternate Health Care Agent (per Health Care Power of Merchandising Manager document) Care Teams Publications Sales Representative Relationship Specialty Start Date End Date Zenobia Lyon MD [address] [place] [address] [place] [phone] PCP - General Family Medicine 05/22/23 documented as of this encounter
--- OUTSIDE RECORDS SUMMARY | 2023-08-22 03:47 | External Medical Summary ---
Author Name Unknown Address Unknown Organization K01:[facility] [place] 100 [facility] [place] [address] Laboratory Report Ordering Provider Test Date Status DEB BULL 07/12/2023 08:18:00 Final Observation Date Value Abnormality Reference (Units ) Status BUN 07/12/2023 08:18:00 32 Above high normal 6-20 (mg/dL) Final Creatinine 07/12/2023 08:18:00 1.5 Above high normal 0.6-1.2 (mg/dL) Final Glomerular filtration rate/1.73 sq M.predicted [Volume Rate/Area] in Serum, Plasma or Blood by Creatinine-based formula (CKD-EPI) 07/12/2023 08:18:00 44 Below low normal >=60 (mL/min) Final eGFR is calculated based on the CKD-EPI 2020 equation SODIUM 07/12/2023 08:18:00 145 135-146 (m mol/L) Final Potassium 07/12/2023 08:18:00 4.3 3.5-5.1 (m mol/L) Final Cl 07/12/2023 08:18:00 103 98-107 (mm ol/L) Final CO2 07/12/2023 08:18:00 24 22-32 (mmo l/L) Final Anion gap 07/12/2023 08:18:00 18 Above high normal 7- 15 (mmol/L) Final Glucose 07/12/2023 08:18:00 142 Above high normal 70 -120 (mg/dL) Final Albumin 07/12/2023 08:18:00 3.2 Below low normal 3.8 -5.0 (g/dL) Final AST (Aspartate aminotransferase) 07/12/2023 08:18:00 9 Below low normal 10-50 (U/L) Final Alk Phos 07/12/2023 08:18:00 37 35-130 (U/ L) Final Bilirubin, Total 07/12/2023 08:18:00 0.3 <=1 .2 (mg/dL) Final Calcium 07/12/2023 08:18:00 9.4 8.4-10.2 ( mg/dL) Final Protein 07/12/2023 08:18:00 8.1 6.0-8.3 (g /dL) Final ALT (Alanine aminotransferase) 07/12/2023 08:18:00 9 Below low normal 10-50 (U/L) Final Performing Location [facility] [place] [address] [facility] [address]
--- OUTSIDE RECORDS SUMMARY | 2023-08-22 03:47 | External Medical Summary | Summary of Care ---
Author Name Unknown Organization [facility] Address [address] [place] [address] Phone [phone] Care Team Providers Care Housing Assistant Name Role Phone Zenobia Lyon MD Primary Care Provide r Encounter Details Date Type Department Care Team Description 07/03/2023 Result Scan Unspecified Department Hao Sanford MD [address] [place] [address] <No scans attached> Allergies Active Allergy Reactions Severity Noted Date [...] and 1 Puff before bedtime. 3 Each 05/15/2023 Active MEDICAL INSTRUCTIONS 1) obtain a [...] TABLET 3 days per week 36 Tablet 06/21/2023 Active Furosemide 40 MG Oral Tablet (Lasix) Take 1 Tablet by mouth in the morning. 100 Tablet 3 06/21/2023 Active Pantoprazole Sodium 40 MG Oral Tablet Delayed Release (Protonix)Indication s:GERD (gastroesophageal reflux disease) Take 1 Tablet by mouth daily. 90 Tablet 1 06/21/2023 Active Clopidogrel Bisulfate 75 MG Oral Tablet (pLAVix)Indications: Atherosclerosis of [place] coronary artery of [place] heart without angina pectoris Take 1 Tablet [...] CORONARY ATHEROSCLEROSIS OF UNSPECIFIED TYPE OF VESSEL, [place] OR GRAFT Last Assessment & Plan: Stable. [...] hematuria 202101/24/2023 Overview: Xavier to [facility] 04/20-04/29 [...] glenn ek & Lt. leg ; Rt. druze 07/0207/18/2002 07/15/2015 Dyslipidemia, goal to be determined [...] Care Team Description 07/11/2023 Cardiac Studies Cardiology [facility] 132 [facility] [place] [address] 07/12/2023 Laboratory Laboratory Processing [facility], [facility] [address] [facility] [address] 07/17/2023 Office Visit Dermatology Pilar Joseph PA-C [address] [place] [address] [place] [address] 07/21/2023 Home Visit [facility] Lila Brownlee RN [address] [place] [address] 07/26/2023 Laboratory Laboratory Processing [facility] [address] [place] [address] 07/26/2023 Office Visit Family Medicine Zenobia Lyon MD [address] [place] [address] [place] [address] 08/09/2023 Laboratory Laboratory Processing [facility] [address] [place] [address] 08/23/2023 Laboratory Laboratory Processing [facility] [address] [place] [address] 08/29/2023 Office Visit Cardiology Chris Choudhury PA-C [address] [place] [address] 09/06/2023 Laboratory Laboratory Processing [facility] [address] [place] [address] 09/20/2023 Laboratory Laboratory Processing [facility] [address] [place] [address] 10/04/2023 Laboratory Laboratory Processing [facility] [address] [place] [address] 10/18/2023 Laboratory Laboratory Processing [facility] [address] [place] [address] 11/01/2023 Laboratory Laboratory Processing [facility], [facility] [address] [place] [address] 11/15/2023 Laboratory Laboratory Processing [facility], [facility] [address] [place] [address] 11/29/2023 Laboratory Laboratory Processing [facility], [facility] [address] [place] [address] 12/13/2023 Laboratory Laboratory Processing [facility], [facility] Draw [address] [place] [address] Scheduled Procedures Name Priority Associated Diagnoses Date/Ti me COLONOSCOPY FLEXIBLE PROXIMA L DIAGNOSTIC Recall History of colonic polyps Health Maintenance Due Date Last Done Comments Alpha-1 Antitrypsin 1953 DIABETES-EYE EXAM 10/28/2022 10/28/2021, , 10/30/2019, Additional history exists DTaP,Tdap,and Td Vaccines (2 - Td or Tdap) 01/11/2023 01/11/2013, 04/01/2003, 04/01/2003 Diabetic Foot Exam 01/14/2023 01/14/2022, 0 12/24/2020, 03/09/2020, Additional history exists HbA1c 07/27/2023 01/25/2023, 12/03/2022, 01/14/2022, Additional history exists O2 ASSESSMENT COMPLETED IN PAST YEAR FOR COPD 09/06/2023 09/06/2022 CKD PHOS USE SMARTSET 19683 09/07/2023 12/0 04/2022, 09/05/2022, 01/14/2022, Additional history exists Depression Screening 01/25/2024 01/24/2023 DIG LEVEL FOR MEDICATION MONITORING YEARLY 01/26/2024 01/25/2023, 04/17/2021, 03/09/2020, Additional history exists Albumin/Creatinine Ratio 01/27/202401/26/ 023, 01/14/2022, 08/14/2017, Additional history exists CKD HGB USE SMARTSET 75463 06/30/202406/30, 06/30/2023, 06/14/2023, Additional history exists COLONOSCOPY-EVERY [...] this encounter Medical Devices Implanted Type Area Rn Radiation Oncology Device Identifier Shelf Expiration Date Model / Serial / Lot Screw T2 Alpha Lock 5x47.5mm - [id number] Implanted:Qty: 1 on 09/06/2022 by Sean Silva MD at [facility] Left: Leg Upper RICHELLE : TRAUMA 06/01/2032 [id number] / / [id number] documented as of this encounter Procedures Procedure Name Priority Date/Time Associated Diagnosis Comments CARDIOLOGY SCANNED RESULT 07/03/2023 documented in this encounter Results * CARDIOLOGY SCANNED RESULT (07/03/2023) 07/03/2023 Hao Sanford MD OTHER documented in this encounter Advance Directives Documents on File Type Date Recorded Patient 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 Real Estate Assistant Expl anation POLST 10/17/2022 [place] DER FOR LIFE-SUSTAINING TREATMENT POLST 09/10/2022 [place] OR [facility] FOR LIFE-SUSTAINING TREATMENT Latest Code Status on [...] Agen t (per Health Care Power of Catalyst Operator document) Reji Tello Dotts Adult Child First Alterna te Health Care Agent (per Health Care Power of Catalyst Operator document) Bowen Tello Adult Child First Alternate Health Care Agent (per Health Care Power of Catalyst Operator document) Care Teams Housing Assistant Relationship Specialty Start Date End Date Zenobia Lyon MD [address] [place] [address] [place] [address] PCP - General Family Medicine 05/22/23 documented as of this encounter
--- OUTSIDE RECORDS SUMMARY | 2023-08-22 03:47 | External Medical Summary ---
Author Name Unknown Address Unknown Organization K01:[facility] 100 [facility] [place] [address] Laboratory Report Ordering Provider Test Date Status DEB BULL 06/30/2023 10:04:00 Final Observation Date Value Abnormality Reference (Units ) Status SYNC LEUKOCYTES IN BLOOD BY AUTOMATED COUNT 06/30/2023 10:04:00 3.72 Below low normal 4.00-10.80 (K/uL) Final Segs 06/30/2023 10:04:00 40.1 40.0-75.0 (%) Final Lymphs % 06/30/2023 10:04:00 30.9 18.0-42.0 (%) Final Monos 06/30/2023 10:04:00 17.2 Above high normal 1.0-11.0 (%) Final Eosinophils 06/30/2023 10:04:00 10.8 Above high normal 0.0-6.0 (%) Final Basos 06/30/2023 10:04:00 0.5 0.0-2.0 (%) Final Immature Granulocyte, Percent 06/30/2023 10:04:00 0.5 0.0-2.0 (%) Final Absolute Segs 06/30/2023 10:04:00 1.49 Below low normal 1.80-7.70 (K/uL) Final Lymphs, absolute 06/30/2023 10:04:00 1.15 1.00-4.80 (K/ul) Final Monos, Abs 06/30/2023 10:04:00 0.64 0.00-1.10 (K/uL) Final Eos, Abs 06/30/2023 10:04:00 0.40 0.00-0.70 (K/uL) Final Basos, Abs 06/30/2023 10:04:00 0.02 0.00-0.20 (K/uL) Final Immature Granulocytes, Number 06/30/2023 10:04:00 0.02 0.00-0.20 (K/uL) Final Performing Location [facility] [place] - [facility] [place] [address]
--- OUTSIDE RECORDS SUMMARY | 2023-08-22 03:48 | External Medical Summary | Summary of Care ---
Author Name Unknown Organization [facility] Address [address] [place] [address] Phone [phone] Care Team Providers Care Online Marketing Specialist Name Role Phone Zenobia Lyon MD Primary Care Provide r Reason for Visit * Reason Onset Date Comments Outpatient Testing 06/28/2023 Encounter Details Date Type Department Care Team Description 06/28/2023 Telephone Hematology/Oncology [facility] [address] [place] [address] Pietro Sykes MD [address] [place] [address] Outpatient Testing Allergies Active Allergy Reactions Severity Noted Date Comments James Inhibitors 09/10/2002 cough on prinivil Hydrocodone 09/05/2022 Family states AMS change when taken Prednisone 05/26/2011 Blisters in throat Sulfa Antibiotics 03/19/2001 dysurea documented as of this encounter (statuses as of 06/28/2023) Medications Medication Sig Dispensed Refills Start Date [...] 75 MG Oral Tablet (pLAVix)Indications: Atherosclerosis of tor[place] martinez coronary artery of torres martinez heart without angina pectoris Take 1 Tablet [...] as of this encounter (statuses as of 06/28/2023) Active Problems Patient Care Coordination No te [...] CORONARY ATHEROSCLEROSIS OF UNSPECIFIED TYPE OF VESSEL, [place] BAND OR GRAFT Last Assessment & Plan: Stable. 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 documented as of this encounter (statuses as of 06/28/2023) Resolved Problems Problem Noted Date Resolved Date [...] infection without hematuria 202101/24/2023 Overview: Xavier to [facility] 04/20-04/29 urosepsis multi drug resistant [...] glenn ek & Lt. leg ; Rt. christianity 07/0207/18/2002 07/15/2015 Dyslipidemia, goal to be determined [...] as of this encounter (statuses as of 06/28/2023) Immunizations Name Administration Dates Next Due COVID-19 mRNA, LNP-s, No Pre serve, 2-Dose Series (Moderna) 08/24/2021,12/07/2020,11/09/2020 Covid-19, Mrna, Lnp-s, Pf, B ivalent, 30 Mcg, IM, 12 yrs and above (Pfizer) 08/29/2022 Influenza, Whole Virus 07/17/2001,09/20/2000 Pneumococcal Conjugate Vacc, 13 Valent (Prevnar) 01/30/2015 Pneumococcal Polysaccharide PPV23 (Pneumovax) 01/22/2019,08/22/2006 Season Influenza, Quad, PF, Adjuvanted, 65+ Yrs, IM (FLUAD) 06/22/2020 Seasonal Influenza, PF, 6 mo ns & Above, IM , (Flulaval) 06/26/2018,06/28/2017 Seasonal Influenza, Quadriva lent Hd (Fluzone Hd) [...] * Telephone Encounter - Ludivina EdenALMA - 06/28/2023 1:03 PM EDT Called mobile lab clinic services and spoke to Shahla, she is not sure what happened but cbcd was not drawn, requested that it be drawn from the sample today per order by Dr. Sykes. Standard order is in for cbcd every 2 weeks. Shahla states that she will try to get cbcd from sample drawn today. FYEvin Sykes ----- Message from Pietro Sykes MD sent at 06/28/2023 12:05 PM EDT ----- Blood workup done on 06/28/2023: -BUN/Creat: 20/1.6, normal liver function test. -Calcium level 9.5 - They have done type and screen but I do not see CBCD checkup. documented in this encounter Plan of Treatment Upcoming Encounters Date Type Specialty Care Team Description 07/11/2023 Cardiac Studies Cardiology [facility] [address] [place] [address] 07/12/2023 Laboratory Laboratory Processing [facility], [facility] Mobile Home Draw [address] [place] [address] 07/17/2023 Office Visit Dermatology Pilar Joseph PA-C [address] [place] [address] THA Vasquez [address] 07/21/2023 [facility] Visit [facility] Lila Brownlee RN [address] [place] [address] 07/26/2023 Laboratory Laboratory Processing [facility], [facility] Home Draw [address] [place] [address] 07/26/2023 Office Visit Family Medicine Zenobia Lyon MD [address] [place] [address] THA Vasquez [address] 08/09/2023 Laboratory [facility] Processing [facility] Draw [address] [place] [address] 08/23/2023 Laboratory Laboratory Processing [facility] Draw [address] [place] [address] 08/29/2023 Office Visit Cardiology Chris Choudhury PA-Yael [address] [place] [address] 09/06/2023 Laboratory Laboratory Processing [facility] Draw [address] [place] [address] 09/20/2023 Laboratory Laboratory Processing [facility] Home Draw [address] [place] [address] 10/04/2023 Laboratory Laboratory Processing [facility] Draw [address] [place] [address] 10/18/2023 Laboratory Laboratory Processing [facility] Draw [address] [place] [address] 11/01/2023 Laboratory Laboratory Processing [facility] Draw [address] [place] [address] 11/15/2023 Laboratory Laboratory Processing [facility] Home Draw [address] [place] [address] 11/29/2023 Laboratory Laboratory Processing [facility] Draw [address] [place] [address] 12/13/2023 Laboratory Laboratory Processing [facility] Draw [address] [place] [address] Scheduled Procedures Name Priority Associated Diagnoses Date/Ti me COLONOSCOPY FLEXIBLE PROXIMA L DIAGNOSTIC Recall History of colonic polyps Health Maintenance Due Date Last Done Comments Alpha-1 Antitrypsin 1953 DIABETES-EYE EXAM 10/28/2022 10/28/2021, , 10/30/2019, Additional history exists DTaP,Tdap,and Td Vaccines (2 - Td or Tdap) 01/11/2023 01/11/2013, 04/01/2003, 04/01/2003 Diabetic Foot Exam 01/14/2023 01/14/2022, 0 12/24/2020, 03/09/2020, Additional history exists HbA1c 07/27/2023 01/25/2023, 03/2022, 01/14/2022, Additional history exists O2 ASSESSMENT COMPLETED IN PAST YEAR FOR COPD 09/06/2023 09/06/2022 CKD PHOS USE SMARTSET 60799 09/07/2023 120 04/2022, 09/05/2022, 01/14/2022, Additional history exists Depression Screening 01/25/2024 01/24/2023 DIG LEVEL FOR MEDICATION MONITORING YEARLY 01/26/2024 01/25/2023, 04/17/2021, 03/09/2020, Additional history exists Albumin/Creatinine Ratio 01/27/2024 023, 01/14/2022, 08/14/2017, Additional history exists CKD HGB USE SMARTSET 62408 06/14/202406/14, 06/14/2023, 05/31/2023, Additional history exists COLONOSCOPY-EVERY 5 YRS AGES [...] this encounter Medical Devices Implanted Type Area Quality Assurance Supervisor Final Device Identifier Shelf Expiration Date Model / Serial / Lot Screw T2 Alpha Lock 5x47.5mm - [id number] Implanted:Qty: 1 on 09/06/2022 by Sean Silva MD at [facility] Left: Leg Upper RICHELLE : TRAUMA 06/01/2032 [id number] / / [id number] documented as of this encounter Advance Directives Documents on File Type Date Recorded 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
--- OUTSIDE RECORDS SUMMARY | 2023-08-22 03:48 | External Medical Summary | Summary of Care ---
Author Name Unknown Organization [facility] Address [address] [place] [address] Phone [phone] Care Team Providers Care Physician Name Role Phone Zenobia Lyon MD Primary Care Provide r Reason for Visit * Reason Onset Date Comments Outpatient Testing 06/28/2023 Encounter Details Date Type Department Care Team Description 06/28/2023 Telephone Hematology/Oncology [facility] [address] [place] [address] Pietro Sykes MD [address] [place] [facility] [address] Outpatient Testing Allergies Active Allergy Reactions Severity [...] 75 MG Oral Tablet (pLAVix)Indications: Atherosclerosis of apache coronary artery of apache heart without angina pectoris Take 1 Tablet [...] CORONARY ATHEROSCLEROSIS OF UNSPECIFIED TYPE OF VESSEL, [place] OR GRAFT Last Assessment & Plan: Stable. [...] glenn ek & Lt. leg ; Rt. mormon 07/0207/18/2002 07/15/2015 Dyslipidemia, goal to be determined [...] Care Team Description 07/11/2023 Cardiac Studies Cardiology [facility] [address] [place] [address] 07/12/2023 Laboratory Laboratory Processing [facility], Gml Mobile Home Draw [address] [place] [address] 07/17/2023 Office Visit Dermatology Pilar Joseph PA-C [address] [place] [address] THA Vasquez [address] 07/21/2023 [facility] Visit [facility] Lila Brownlee RN [address] [place] [address] 07/26/2023 Laboratory Laboratory Processing [facility], [facility] Mobile Home Draw [address] [place] [address] 07/26/2023 Office Visit Family Medicine Zenobia Lyon MD [address] [place] [address] THA Vasquez [address] 08/09/2023 Laboratory Laboratory Processing [facility] Draw [address] [place] [address] 08/23/2023 Laboratory Laboratory Processing [facility] Draw [address] [place] [address] 08/29/2023 Office Visit Cardiology Chris Choudhury PA-Yael [address] [place] [address] 09/06/2023 Laboratory Laboratory Processing [facility] Draw [address] [place] [address] 09/20/2023 Laboratory Laboratory Processing [facility] Draw [address] [place] [address] 10/04/2023 Laboratory Laboratory Processing [facility] Draw [address] [place] [address] 10/18/2023 Laboratory Laboratory Processing [facility] Draw [address] [place] [address] 11/01/2023 Laboratory Laboratory Processing [facility] Home Draw [address] [place] [address] 11/15/2023 Laboratory Laboratory Processing [facility] Home Draw [address] [place] [address] 11/29/2023 Laboratory Laboratory Processing [facility] Draw [address] [place] [address] 12/13/2023 Laboratory Laboratory Processing [facility] Draw [address] [place] [address] Scheduled Procedures Name Priority Associated Diagnoses Date/Ti [...] COPD 09/06/2023 09/06/2022 CKD PHOS USE SMARTSET 47254 09/07/2023 120 04/2022, 09/05/2022, 01/14/2022, Additional history exists Depression Screening 01/25/2024 01/24/2023 DIG LEVEL FOR MEDICATION MONITORING YEARLY 01/26/2024 01/25/2023, 04/17/2021, 03/09/2020, Additional history exists Albumin/Creatinine Ratio 01/27/2024 023, 01/14/2022, 08/14/2017, Additional history exists CKD HGB USE SMARTSET 52999 06/14/202406/14, 06/14/2023, 05/31/2023, Additional history exists COLONOSCOPY-EVERY [...] this encounter Medical Devices Implanted Type Area Clinical Nursing Coordinator Device Identifier Shelf Expiration Date Model / Serial / Lot Screw T2 Alpha Lock 5x47.5mm - [id number] Implanted:Qty: 1 on 09/06/2022 by Sean Silva MD at [facility] Left: Leg Upper RICHELLE : TRAUMA 06/01/2032 [id number] / / [id number] documented as of this encounter Advance Directives Documents on File Type Date Recorded 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 POLST 10/17/2022 [place] OR DERS FOR LIFE-SUSTAINING TREATMENT POLST 09/10/2022 [...] Agen t (per Health Care Power of Logging Equipment Operator document) Reji Tello Dotts Adult Child First Alterna te Health Care Agent (per Health Care Power of Logging Equipment Operator document) Bowen Tello Adult Child First Alternate Health Care Agent (per Health Care Power of Logging Equipment Operator document) Care Teams Physician Relationship Specialty Start Date End Date Zenobia Lyon MD [address] [place] [address] THA Vasquez [address] PCP - General Family Medicine 05/22/23 documented as of this encounter
--- OUTSIDE RECORDS SUMMARY | 2023-08-22 03:48 | External Medical Summary | Summary of Care ---
Author Name Unknown Organization [facility] Address [address] [place] [address] Phone [phone] Care Team Providers Care Unit Clerk Name Role Phone Zenobia Lyon MD Primary Care Provide r Reason for Visit * Reason Onset Date Comments Outpatient Testing 06/28/2023 Encounter Details Date Type Department Care Team Description 06/28/2023 Telephone Hematology/Oncology [facility] [address] [place] [address] Pietro Sykes MD [address] [facility] [place] [address] Outpatient Testing Allergies Active Allergy Reactions Severity Noted Date Comments James Inhibitors 09/10/2002 cough on prinivil Hydrocodone 09/05/2022 Family states AMS change when taken Prednisone 05/26/2011 Blisters in throat Sulfa Antibiotics 03/19/2001 dysurea documented as of this encounter (statuses as of 06/29/2023) Medications Medication Sig Dispensed Refills Start Date [...] 75 MG Oral Tablet (pLAVix)Indications: Atherosclerosis of [place] coronary artery of [place] heart without angina pectoris Take 1 Tablet [...] as of this encounter (statuses as of 06/29/2023) Active Problems Patient Care Coordination No te [...] CORONARY ATHEROSCLEROSIS OF UNSPECIFIED TYPE OF VESSEL, TRIBE OR GRAFT Last Assessment & Plan: Stable. 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 leg ; Rt. yarsanism 07/0207/18/2002 07/15/2015 Dyslipidemia, goal to be determined [...] as of this encounter (statuses as of 06/29/2023) Immunizations Name Administration Dates Next Due COVID-19 [...] * Telephone Encounter - Ludivina EdenALMA - 06/29/2023 11:25 AM EDT CBCd was not drawn or added to sample. Called mobile lab clinic services and spoke to Radha Cbcd cannot be drawn from sample. Notified Radha that mobile phlebotomy appointment was canceled on Monday, cbcd is still needed since it was not drawn. Radha states that the mobile lab appointment will be rescheduled for tomorrow for the cbcd to be drawn. GALO Sykes * Telephone Encounter - Ludivina Eden LPN - 06/28/2023 1:03 PM EDT Called mobile lab clinic services and spoke to Shahla, she is not sure what happened but cbcd was not drawn, requested that it be drawn from the sample today per order by Dr. Sykes. Standard order is in for cbcd every 2 weeks. Shahla states that she will try to get cbcd from sample drawn today. GALO Sykes ----- Message from Pietro Sykes MD sent at 06/28/2023 12:05 PM EDT ----- Blood workup done on 06/28/2023: -BUN/Creat: 20/1.6, normal liver function test. -Calcium level 9.5 - They have done type and screen but I do not see CBCD checkup. documented in this encounter Plan of Treatment Upcoming Encounters Date Type Specialty Care Team Description 06/30/2023 Laboratory Laboratory Processing [facility], [facility] Mobile Home Draw [address] [place] [address] 07/11/2023 Cardiac Studies Cardiology [facility], Pacer [address] [address] 07/12/2023 Laboratory Laboratory Processing [facility], [facility] Mobile Home Draw [address] [place] [address] 07/17/2023 Office Visit Dermatology Pilar Joseph PA-C [address] [place] [address] THA Vasquez [address] 07/21/2023 Home Visit [facility] Lila Brownlee RN [address] [place] [address] 07/26/2023 Laboratory Laboratory Processing [facility] Home Draw [address] [place] [address] 07/26/2023 Office Visit Family Medicine Zenobia Lyon MD [facility] THA Vasquez [address] 08/09/2023 Laboratory Laboratory Processing [facility] Home Draw [address] [place] [address] 08/23/2023 Laboratory Laboratory Processing [facility] Home Draw [address] [place] [address] 08/29/2023 Office Visit Cardiology Chris Choudhury PA-C [address] [place] [address] 09/06/2023 Laboratory Laboratory Processing [facility] Home Draw [address] [place] [address] 09/20/2023 Laboratory Laboratory Processing [facility] Home Draw [address] [place] [address] 10/04/2023 Laboratory Laboratory Processing [facility] Home Draw [address] [place] [address] 10/18/2023 Laboratory Laboratory Processing [facility] Home Draw [address] [place] [address] 11/01/2023 Laboratory Laboratory Processing [facility], [facility] Mobile Home Draw [address] [place] [address] 11/15/2023 Laboratory Laboratory Processing [facility], [facility] Mobile Home Draw [address] [place] [address] 11/29/2023 Laboratory Laboratory Processing [facility] Mobile Home Draw [address] [place] [address] 12/13/2023 Laboratory Laboratory Processing [facility], [facility] Mobile Home Draw [address] [place] [address] Scheduled Procedures Name Priority Associated Diagnoses Date/Ti [...] COPD 09/06/2023 09/06/2022 CKD PHOS USE SMARTSET 73730 09/07/2023 12/0 04/2022, 09/05/2022, 01/14/2022, Additional history exists Depression Screening 01/25/2024 01/24/2023 DIG LEVEL FOR MEDICATION MONITORING YEARLY 01/26/2024 01/25/2023, 04/17/2021, 03/09/2020, Additional history exists Albumin/Creatinine Ratio 01/27/2024 023, 01/14/2022, 08/14/2017, Additional history exists CKD HGB USE SMARTSET 14523 06/14/202406/14, 06/14/2023, 05/31/2023, Additional history exists COLONOSCOPY-EVERY [...] this encounter Medical Devices Implanted Type Area Dinkey Brakeman Device Identifier Shelf Expiration Date Model / Serial / Lot Screw T2 Alpha Lock 5x47.5mm - [id number] Implanted:Qty: 1 on 09/06/2022 by Sean Silva MD at [place] [facility] [place] Left: Leg Upper RICHELLE : TRAUMA 06/01/2032 [id number] / / [id number] documented as of this encounter Advance Directives Documents on File Type Date Recorded 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
--- OUTSIDE RECORDS SUMMARY | 2023-08-22 03:48 | External Medical Summary | Summary of Care ---
Author Name Unknown Organization [facility] Address [address] [place] [address] Phone [phone] Care Team Providers Care Color Making Supervisor Name Role Phone Zenobia Lyon MD Primary Care Provide r Reason for Visit * Reason Onset Date Comments Outpatient Testing 06/28/2023 Encounter Details Date Type Department Care Team Description 06/28/2023 Telephone Hematology/Oncology [facility] [address] [place] [address] Pietro Sykes MD [address] [place] [facility] [place] [address] Outpatient Testing Allergies Active Allergy Reactions Severity [...] 75 MG Oral Tablet (pLAVix)Indications: Atherosclerosis of [place] coronary artery of [place] heart without angina pectoris Take 1 Tablet [...] CORONARY ATHEROSCLEROSIS OF UNSPECIFIED TYPE OF VESSEL, [place] OR GRAFT Last Assessment & Plan: Stable. [...] glenn ek & Lt. leg ; Rt. religious 07/0207/18/2002 07/15/2015 Dyslipidemia, goal to be determined [...] Care Team Description 06/30/2023 Laboratory Laboratory Processing [facility] Mobile Home Draw [address] [place] [address] 07/11/2023 Cardiac Studies Cardiology [facility], Pacer [address] [address] 07/12/2023 Laboratory Laboratory Processing [facility] Mobile Home Draw [address] [place] [address] 07/17/2023 Office Visit Dermatology Pilar Joseph PA-C [address] [place] [address] THA Vasquez [address] 07/21/2023 Home Visit [facility] Lila Brownlee RN [address] [place] [address] 07/26/2023 Laboratory Laboratory Processing [facility] Draw [address] [place] [address] 07/26/2023 Office Visit Family Medicine Zenobia Lyon MD [facility] THA Vasquez [address] 08/09/2023 Laboratory Laboratory Processing [facility] Draw [address] [place] [address] 08/23/2023 Laboratory Laboratory Processing [facility] Home Draw [address] [place] [address] 08/29/2023 Office Visit Cardiology Chris Choudhury PA-C [address] [place] [address] 09/06/2023 Laboratory Laboratory Processing [facility] Home Draw [address] [place] [address] 09/20/2023 Laboratory Laboratory Processing [facility] Home Draw [address] [place] [address] 10/04/2023 Laboratory Laboratory Processing [facility] Home Draw [address] [place] [address] 10/18/2023 Laboratory Laboratory Processing [facility] Home Draw [address] [place] [address] 11/01/2023 Laboratory Laboratory Processing [facility] Mobile Home Draw [address] [place] [address] 11/15/2023 Laboratory Laboratory Processing [facility] Mobile Home Draw [address] [place] [address] 11/29/2023 Laboratory Laboratory Processing [facility] Draw [address] [place] [address] 12/13/2023 Laboratory Laboratory Processing [facility] Mobile Home Draw [address] [place] [address] Scheduled Procedures Name Priority Associated Diagnoses Date/Ti [...] COPD 09/06/2023 09/06/2022 CKD PHOS USE SMARTSET 41040 09/07/2023 12/0 04/2022, 09/05/2022, 01/14/2022, Additional history exists Depression Screening 01/25/2024 01/24/2023 DIG LEVEL FOR MEDICATION MONITORING YEARLY 01/26/2024 01/25/2023, 04/17/2021, 03/09/2020, Additional history exists Albumin/Creatinine Ratio 01/27/2024 023, 01/14/2022, 08/14/2017, Additional history exists CKD HGB USE SMARTSET 36765 06/14/202406/14, 06/14/2023, 05/31/2023, Additional history exists COLONOSCOPY-EVERY [...] this encounter Medical Devices Implanted Type Area Telesales Representative Device Identifier Shelf Expiration Date Model / Serial / Lot Screw T2 Alpha Lock 5x47.5mm - [id number] Implanted:Qty: 1 on 09/06/2022 by Sean Silva MD at [place] [facility] [place] Left: Leg Upper RICHELLE : TRAUMA 06/01/2032 [id number] / / [id number] documented as of this encounter Advance Directives Documents on File Type Date Recorded 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 POLST 10/17/2022 [place] OR DERS FOR LIFE-SUSTAINING TREATMENT POLST 09/10/2022 [place] OR DERS FOR LIFE-SUSTAINING TREATMENT Latest Code [...] Agen t (per Health Care Power of Barrel Reamer document) Reji Tello Dotts Adult Child First Alterna te Health Care Agent (per Health Care Power of Barrel Reamer document) Bowen Tello Adult Child First Alternate Health Care Agent (per Health Care Power of Barrel Reamer document) Care Teams Color Making Supervisor Relationship Specialty Start Date End Date Zenobia Lyon MD [address] [place] [address] THA Vasquez [address] PCP - General Family Medicine 05/22/23 documented as of this encounter
--- OUTSIDE RECORDS SUMMARY | 2023-08-22 03:49 | External Medical Summary ---
Author Name Unknown Address Unknown Organization [facility] [address] [place] [address] Laboratory Report Ordering Provider Test Date Status DEB BULL 06/28/2023 08:10:00 Final Observation Date Value Abnormality Reference (Units ) Status BUN 06/28/2023 08:10:00 28 Above high normal 6-20 (mg/dL) Final Creatinine 06/28/2023 08:10:00 1.6 Above high normal 0.6-1.2 (mg/dL) Final Glomerular filtration rate/1.73 sq M.predicted [Volume Rate/Area] in Serum, Plasma or Blood by Creatinine-based formula (CKD-EPI) 06/28/2023 08:10:00 43 Below low normal >=60 (mL/min) Final eGFR is calculated based on the CKD-EPI 2020 equation SODIUM 06/28/2023 08:10:00 145 135-146 (m mol/L) Final Potassium 06/28/2023 08:10:00 4.5 3.5-5.1 (m mol/L) Final Cl 06/28/2023 08:10:00 103 98-107 (mm ol/L) Final CO2 06/28/2023 08:10:00 24 22-32 (mmo l/L) Final Anion gap 06/28/2023 08:10:00 18 Above high normal 7- 15 (mmol/L) Final Glucose 06/28/2023 08:10:00 125 Above high normal 70 -120 (mg/dL) Final Albumin 06/28/2023 08:10:00 3.1 Below low normal 3.8 -5.0 (g/dL) Final AST (Aspartate aminotransferase) 06/28/2023 08:10:00 13 10-50 (U/L) Fin al Alk Phos 06/28/2023 08:10:00 32 Below low normal 35- 130 (U/L) Final Bilirubin, Total 06/28/2023 08:10:00 0.2 <=1 .2 (mg/dL) Final Calcium 06/28/2023 08:10:00 9.5 8.4-10.2 ( mg/dL) Final Protein 06/28/2023 08:10:00 7.9 6.0-8.3 (g /dL) Final ALT (Alanine aminotransferase) 06/28/2023 08:10:00 5 Below low normal 10-50 (U/L) Final Performing Location [facility] [address] [facility] [address]
--- OUTSIDE RECORDS SUMMARY | 2023-08-22 03:49 | External Medical Summary | Summary of Care ---
Author Name Unknown Organization [facility] Address [address] [place] [address] Phone [phone] Care Team Providers Care Garnett Machine Operator Name Role Phone Zenobia Lyon MD Primary Care Provide r Reason for Visit * Reason Onset Date Comments Medication Administration 06/22/2023 Flu an d/or Pneumo Inj Encounter Details Date Type Department Care Team Description 06/22/2023 Home Visit [facility] [address] [facility] [place] [address] Lila Brownlee, SANKET [address] [facility] [place] [address] Need for prophylactic vaccination and inoculation against influenza* Allergies Active Allergy Reactions Severity Noted Date Comments James Inhibitors 09/10/2002 cough on prinivil Hydrocodone 09/05/2022 Family states AMS change when taken Prednisone 05/26/2011 Blisters in throat Sulfa Antibiotics 03/19/2001 dysurea documented as of this encounter (statuses as of 06/23/2023) Medications Medication Sig Dispensed Refills Start Date [...] 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 In the morning.. 90 Tablet 3 06/21/2023 Active Metoprolol Succinate ER 50 MG Oral Tablet Extended Release 24 Hour (toPROL XL)Indications:Tachy -lorna syndrome (HCC),Heart failure, systolic, due to CAD (HCC) Take 1 Tablet by mouth in the morning. 90 Tablet 3 06/21/2023 Active Losartan Potassium 50 MG Oral Tablet (Cozaar)Indications: Heart failure, systolic, due to CAD (HCC) Take 1 Tablet by mouth in the morning. 90 Tablet 3 06/21/2023 Active Potassium Chloride Emma ER 20 MEQ Oral Tablet Extended ReleaseIndications:H ypokalemia Take 1 Tablet by mouth in the morning. In the morning.. 90 Tablet 3 06/21/2023 Active Dutasteride 0.5 MG Oral Capsule (Avodart)Indications :BPH with obstruction/lower urinary tract symptoms Take 1 Capsule by mouth in the morning. 90 Capsule 1 06/21/2023 Active Methenamine Hippurate 1 GM Oral Tablet (Hiprex) Take 1 Tablet by mouth in the morning and 1 Tablet before bedtime. 180 Tablet 3 06/21/2023 Active documented as of this encounter (statuses as of 06/23/2023) Active Problems Patient Care Coordination No te [...] CORONARY ATHEROSCLEROSIS OF UNSPECIFIED TYPE OF VESSEL, MAKAH OR GRAFT Last Assessment & Plan: Stable. 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 leg ; Rt. oriental orthodox 07/0207/18/2002 07/15/2015 Dyslipidemia, goal to be [...] as of this encounter (statuses as of 06/23/2023) Immunizations Name Administration Dates Next Due COVID-19 [...] Sign Reading Time Taken Comments Blood Pressure 158/68 06/22/2023 1:43 PM EDT Pulse 78 06/22/2023 1:43 PM EDT Temperature 36.1 C (96.9 F) 06/22/2023 1:43 PM ED T Respiratory Rate 18 06/22/2023 1:43 PM EDT Oxygen Saturation 97% 06/22/2023 1:43 PM EDT Inhaled Oxygen Concentration - - [...] as of this encounter Progress Notes * Lila Brownlee RN - 06/22/2023 1:43 PM EDT [facility] Visit Date: 06/22/2023 Time: 1:43 PM Name: Marshall Tello Sr. : 1935 Current Concerns: Patient seen for follow up- Dementia, Multiple Myeloma, CKD, CHF Patient sitting at table- awake and alert Color good reports he's doing ok. Sleeps most of the day Most recent Hgb- 7.6 CBC every two week- ordered by Dr. Sykes VS wnl Lungs clear bilaterally Sob with exertion No LE edema noted Voiding without difficulty Bowels wnl- Appetite varies fair to poor Taking fluids with encouragement Problems/Symptoms: Review of Systems Constitutional: Negative. HENT: Negative. Eyes: Negative. Respiratory: Positive for shortness of breath. Cardiovascular: Negative. Gastrointestinal: Negative. Endocrine: Negative. Genitourinary: Negative. Musculoskeletal: Negative. Skin: Negative. Allergic/Immunologic: Negative. Neurological: Negative. Hematological: Negative. Psychiatric/Behavioral: Negative. Physical Exam: BP 158/68 (BP Site: Right Arm, BP Position: Sitting, BP Cuff Size: Regular) | Pulse 78 | Temp 36.1 C (96.9 F) (Tympanic) | Resp 18 | SpO2 97% Pain 0 Physical Exam Constitutional: Appearance: Normal appearance. Cardiovascular: Rate and Rhythm: Normal rate. Pulses: Normal pulses. Heart sounds: Normal heart sounds. Pulmonary: Effort: Pulmonary effort is normal. Abdominal: General: Bowel sounds are normal. Palpations: Abdomen is soft. Musculoskeletal: General: Normal range of motion. Skin: General: Skin is warm and dry. Capillary Refill: Capillary refill takes 2 to 3 seconds. Neurological: General: No focal deficit present. Mental Status: He is alert and oriented to person, place, and time. Psychiatric: Mood and Affect: Mood normal. Behavior: Behavior normal. [facility]-10 Completed this Visit: No. No falls since last visit Treatment/Plan: Continue medications as prescribed Keep all upcoming MD appointments Lidoderm patch prn pain Fall precautions Fluids encouraged RN CM follow up in 6 weeks Home Interventions Provided: Reinforced current Plan of Care, including self-management and medication regimen Patient Needs to Remember: Call [facility] with any medical concerns/ red flags Referrals Needed: N/a Follow Up: Is there cellular connectivity/connectivity in the home? Yes Does the patient have internet in the home? Yes Patient encouraged to call the intake phone number for all urgent but not emergent issues. Scheduled to follow up with patient in 6 weeks. Lila Julio RN 06/22/2023 1:43 PM PRE - ADMINISTRATION DOCUMENTATION Are you experiencing any cold symptoms or fever? No Have you had Guillain-[place] Syndrome (an illness that causes paralysis) within the last 6 weeks? No Have you had the flu shot in the past? YES Have you ever had a reaction to the flu shot? No Lila Julio RN, 06/22/2023 6:31 PM Immunization Administration Documentation Time Out Procedure Performed: Yes Patient Identified (Ask Name/Date of ): Yes Does the patient have a fever greater than 101 degrees today? No Patient allergic to latex? No VFC Stock: No Immunization(s) verified: Yes, Immunization Name: Flu, VIS Sheet(s) given: Yes Injection(s) verified: Yes, Injection Name: Fluzone Verified Side and Site: Yes Verified Shot(s) with Parent(s)/Patient: Yes documented in this encounter Nursing Notes * Lila Brownlee RN - 06/22/2023 1:42 PM EDT Error documented in this encounter Plan of Treatment Upcoming Encounters Date Type Specialty Care Team Description 06/28/2023 Laboratory Laboratory Processing [facility] Draw [address] [place] [address] 07/11/2023 [facility] [address] [place] [address] 07/12/2023 Laboratory [facility] [address] [place] [address] 07/17/2023 Office Visit Dermatology Pilar Joseph PA-C [address] [facility] [place] [address] 07/21/2023 Home Visit [facility] Lila Brownlee, SANKET [address] [place] [address] 07/26/2023 Laboratory Laboratory [facility] [address] [place] [address] 07/26/2023 Office Visit Family Medicine Zenobia Lyon MD [address] [facility] [place] [address] 08/09/2023 Laboratory Laboratory Processing [facility] [address] [place] [address] 08/23/2023 Laboratory Laboratory Processing [facility] [address] [place] [address] 08/29/2023 Office Visit Cardiology Chris Choudhury PA-C [address] [place] [address] 09/06/2023 Laboratory Laboratory Processing [facility] Draw [address] [place] [address] 09/20/2023 Laboratory Laboratory Processing [facility] Draw [address] [place] [address] 10/04/2023 Laboratory Laboratory Processing [facility] [address] [place] [address] 10/18/2023 Laboratory Laboratory Processing [facility] Draw [address] [place] [address] 11/01/2023 Laboratory Laboratory Processing [facility] [address] [place] [address] 11/15/2023 Laboratory Laboratory Processing [facility] Draw [address] [place] [address] 11/29/2023 Laboratory Laboratory Processing [facility] Draw [address] [place] [address] 12/13/2023 Laboratory Laboratory Processing [facility] [address] [place] [address] Scheduled Procedures Name Priority Associated Diagnoses Date/Ti me COLONOSCOPY FLEXIBLE PROXIMA L DIAGNOSTIC Recall History of colonic polyps Health Maintenance Due Date Last Done Comments Alpha-1 Antitrypsin 1953 DIABETES-EYE EXAM 10/28/2022 10/28/2021, , 10/30/2019, Additional history exists DTaP,Tdap,and Td Vaccines (2 - Td or Tdap) 01/11/2023 01/11/2013, 04/01/2003, 04/01/2003 Diabetic Foot Exam 01/14/2023 01/14/2022, 0 12/24/2020, 03/09/2020, Additional history exists HbA1c 07/27/2023 01/25/2023, 12/0 03/2022, 01/14/2022, Additional history exists O2 ASSESSMENT COMPLETED IN PAST YEAR FOR COPD 09/06/2023 09/06/2022 CKD PHOS USE SMARTSET 03224 09/07/2023 12/0 04/2022, 09/05/2022, 01/14/2022, Additional history exists Depression Screening 01/25/2024 01/24/2023 DIG LEVEL FOR MEDICATION MONITORING YEARLY 01/26/2024 01/25/2023, 04/17/2021, 03/09/2020, Additional history exists Albumin/Creatinine Ratio 01/27/2024 023, 01/14/2022, 08/14/2017, Additional history exists CKD HGB USE SMARTSET 15391 06/14/202406/14, 06/14/2023, 05/31/2023, Additional history exists COLONOSCOPY-EVERY [...] this encounter Medical Devices Implanted Type Area Life Insurance Specialist Device Identifier Shelf Expiration Date Model / Serial / Lot Screw T2 Alpha Lock 5x47.5mm - [id number] Implanted:Qty: 1 on 09/06/2022 by Sean Silva MD at [facility] Left: Leg Upper RICHLELE : TRAUMA 06/01/2032 [id number] / / [id number] documented as of this encounter Visit Diagnoses Diagnosis Need for prophylactic vaccination and inoculation against influenza- Primary documented in this encounter Advance Directives Documents on File Type Date Recorded 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
--- OUTSIDE RECORDS SUMMARY | 2023-08-22 03:49 | External Medical Summary | Summary of Care ---
Author Name Unknown Organization [facility] Address [address] [place] [address] Phone [phone] Care Team Providers Care Survey Research Associate Name Role Phone Zenobai Lyon MD Primary Care Provide r Reason for Visit * Reason Onset Date Comments Medication Problem 06/21/2023 Encounter Details Date Type Department Care Team Description 06/21/2023 Telephone Pharmacy [facility] [place] [address] Zenobia Lyon MD [address] [place] [address] THA Vasquez [address] Medication Problem Allergies Active Allergy Reactions Severity Noted Date Comments James Inhibitors 09/10/2002 cough on prinivil Hydrocodone 09/05/2022 Family states AMS change when taken Prednisone 05/26/2011 Blisters in throat Sulfa Antibiotics 03/19/2001 dysurea documented as of this encounter (statuses as of 06/21/2023) Medications Medication Sig Dispensed Refills Start Date [...] 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 ([facility]) Use to test blood sugar as needed 100 Strip 3 2 Active OneTouch UltraSoft LancetsIndications:T ype 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 ([facility]) Use to test blood sugar [...] a meal.. 30 Tablet 5 3 Active traMADol HCl 50 MG Oral Tablet [...] per week 36 Tablet 3 3 Active Furosemide 40 MG Oral Tablet (Lasix) Take 1 Tablet by mouth in the morning. 100 Tablet 3 3 Active Pantoprazole Sodium 40 MG Oral Tablet Delayed Release (Protonix)Indication s:GERD (gastroesophageal reflux disease) Take 1 Tablet by mouth daily. 90 Tablet 1 3 Active Clopidogrel Bisulfate 75 MG Oral Tablet (pLAVix)Indications: Atherosclerosis of [place] coronary artery of [place] heart without angina pectoris Take 1 Tablet by mouth in the morning. In the morning.. 90 Tablet 3 3 Active Metoprolol Succinate [...] morning. In the morning.. 90 Tablet 3 3 Active Dutasteride 0.5 MG Oral Capsule (Avodart)Indications :BPH with obstruction/lower urinary tract symptoms Take 1 Capsule by mouth in the morning. 90 Capsule 1 3 Active Methenamine Hippurate 1 GM Oral Tablet (Hiprex) Take 1 Tablet by mouth in the morning and 1 Tablet before bedtime. 180 Tablet 3 3 Active Losartan Potassium 50 MG Oral Tablet (Cozaar)Indications: Heart failure, systolic, due to CAD (HCC) Take by mouth 1 Tablet in the morning. 90 Tablet 3 2 06/21/20 23 Discontinu ed(Refill) Metoprolol Succinate ER 50 MG Oral Tablet Extended Release 24 Hour (toPROL XL)Indications:Heart failure, systolic, due to CAD (HCC),Tachy-lorna syndrome (HCC) TAKE ONE TABLET BY MOUTH EVERY DAY 90 Tablet 3 2 06/21/20 23 Discontinu ed(Refill) Clopidogrel Bisulfate 75 MG Oral Tablet (pLAVix)Indications: Atherosclerosis of [place] coronary artery of [place] heart without angina pectoris TAKE ONE TABLET BY MOUTH IN THE MORNING 90 Tablet 3 3 06/21/20 23 Discontinu ed(Refill) Digoxin 125 MCG Oral Tablet (Lanoxin) TAKE ONE TABLET 3 days per week 36 Tablet 3 3 06/21/20 23 Discontinu ed(Refill) Dutasteride 0.5 MG Oral Capsule (Avodart)Indications :BPH with obstruction/lower urinary tract symptoms Take 1 Capsule by mouth in the morning. 90 Capsule 1 3 06/21/20 23 Discontinu ed(Refill) Pantoprazole Sodium 40 MG Oral Tablet Delayed Release (Protonix)Indication s:GERD (gastroesophageal reflux disease) Take 1 Tablet by mouth daily. 90 Tablet 1 3 06/21/20 23 Discontinu ed(Refill) Methenamine Hippurate 1 GM Oral Tablet (Hiprex) Take 1 Tablet by mouth in the morning and 1 Tablet before bedtime. 60 Tablet 11 3 06/21/20 Discontinu ed(Refill) Potassium Chloride Emma ER 20 MEQ Oral Tablet Extended ReleaseIndications:H ypokalemia TAKE ONE TABLET BY MOUTH IN THE MORNING 90 Tablet 3 3 06/21/20 23 Discontinu ed(Refill) Furosemide 40 MG Oral Tablet (Lasix) Take 1 Tablet by mouth in the morning. 100 Tablet 3 3 06/21/20 Discontinu ed(Refill) documented as of this encounter (statuses as of 06/21/2023) Active Problems Patient Care Coordination No te [...] CORONARY ATHEROSCLEROSIS OF UNSPECIFIED TYPE OF VESSEL, UPPER [place] OR GRAFT Last Assessment & Plan: Stable. 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 Coli [...] glenn ek & Lt. leg ; Rt. alevism 07/0207/18/2002 07/15/2015 Dyslipidemia, goal to be determined [...] as of this encounter (statuses as of 06/21/2023) Immunizations Name Administration Dates Next Due COVID-19 mRNA, LNP-s, No Pre serve, 2-Dose Series (Moderna) 08/24/2021,12/07/2020,11/09/2020 Covid-19, Mrna, Lnp-s, Pf, B ivalent, 30 Mcg, IM, 12 yrs and above ([place]) 08/29/2022 Pneumococcal Conjugate Vacc, 13 Valent (Prevnar) 01/30/2015 Pneumococcal Polysaccharide PPV23 (Pneumovax) 01/22/2019,08/22/2006 Season Influenza, Quad, PF, Adjuvanted, 65+ Yrs, IM (FLUAD) 06/22/2020 Seasonal Influenza, PF, 6 mo ns & Above, IM , (Flulaval) 06/26/2018,06/28/2017 Seasonal Influenza, Quadriva lent Hd (Fluzone Hd) 07/22/2022,06/17/2021 Seasonal Influenza, Quadriva lent, No Preserve, IM [...] encounter Miscellaneous Notes * Telephone Encounter - Kylah Chavarria, content production specialist - 06/21/2023 1:54 PM EDT Please reroute Rx to [facility]. Pending Prescriptions: Disp Refills Digoxin 125 MCG Oral Tablet (Lanoxin) 36 Tab*3 Sig: TAKE ONE TABLET 3 days per week Furosemide 40 MG Oral Tablet (Lasix) 100 Ta*3 Sig: Take 1 Tablet by mouth in the morning. Pantoprazole Sodium 40 MG Oral Tablet Del*90 Tab*1 Sig: Take 1 Tablet by mouth daily. Clopidogrel Bisulfate 75 MG Oral Tablet (*90 Tab*3 Sig: Take 1 Tablet by mouth in the morning. In the morning.. Metoprolol Succinate ER 50 MG Oral Tablet*90 Tab*3 Sig: Take 1 Tablet by mouth in the morning. Losartan Potassium 50 MG Oral Tablet (Coz*90 Tab*3 Sig: Take 1 Tablet by mouth in the morning. Potassium Chloride Emma ER 20 MEQ Oral Ta*90 Tab*3 Sig: Take 1 Tablet by mouth in the morning. In the morning.. Dutasteride 0.5 MG Oral Capsule (Avodart) 90 Cap*1 Sig: Take 1 Capsule by mouth in the morning. Methenamine Hippurate 1 GM Oral Tablet (H*60 Tab*11 Sig: Take 1 Tablet by mouth in the morning and 1 Tablet before bedtime. Last Visit: Visit date not found (in office), Visit date not found (telemedicine) Visit date not found If no future appointments scheduled, and last appointment is greater than a year ago, please schedule patient for a follow-up appointment Last date the medication was ordered: 12/23/22, 03/10/23, 04/14/23, 06/18/23, 05/20/22, 06/06/23, 06/28/22 Patient Phone Numbers Labs: Lab Results Component Value Date/Time CREAT 1.5 (H) 06/14/2023 08:33 AM CREAT 1.27 07/27/2021 12:00 AM CREAT 1.2 05/29/2020 03:13 PM CREAT 0.8 01/08/1997 09:40 AM POTASSIUM 4.2 06/14/2023 08:33 AM POTASSIUM 3.8 07/27/2021 12:00 AM POTASSIUM 4.6 05/29/2020 03:13 PM POTASSIUM 4.7 01/08/1997 09:40 AM TSH 1.97 09/06/2022 03:24 AM TSH 1.04 11/06/2018 01:43 PM LDLCALC 31 03/09/2020 12:04 PM LDLCALC 159. (H) 01/08/1997 09:40 AM LDLDIRECT 46 12/24/2020 02:55 PM LDLDIRECT 44 03/09/2020 12:04 PM ALT 9 (L) 06/14/2023 08:33 AM ALT 13 11/06/2018 01:43 PM ALT 23 01/08/1997 09:40 AM HGBA1C 9.3 (H) 01/25/2023 08:06 AM HGBA1C 6.9 (H) 03/09/2020 12:04 PM documented in this encounter Plan of Treatment Upcoming Encounters Date Type Specialty Care Team Description 06/22/2023 Home Visit [facility] Lila Brownlee, RN [address] [place] [address] 06/28/2023 Laboratory [facility] [address] [place] [address] 07/11/2023 Cardiac Studies Cardiology [facility] [address] [place] [address] 07/12/2023 Laboratory Laboratory Processing [facility] [address] [place] [address] 07/17/2023 Office Visit Dermatology Pilar Joseph PA-C [address] [place] [address] THA Vasquez [address] 07/26/2023 Laboratory Laboratory Processing [facility] [address] [place] [address] 07/26/2023 Office Visit Family Medicine Zenobia Lyon MD [address] [place] [address] TH[place] [address] 08/09/2023 Laboratory Laboratory Processing [facility] [address] [place] [address] 08/23/2023 Laboratory Laboratory Processing [facility] [address] [place] [address] 08/29/2023 Office Visit Cardiology Chris Choudhury PA-C [address] [place] [address] 09/06/2023 Laboratory Laboratory Processing [facility] [address] [place] [address] 09/20/2023 Laboratory Laboratory Processing [facility] [address] [place] [address] 10/04/2023 Laboratory Laboratory Processing [facility] [address] [place] [address] 10/18/2023 Laboratory Laboratory [facility] [address] [place] [address] 11/01/2023 Laboratory Laboratory Processing [facility] [address] [place] [address] 11/15/2023 Laboratory Laboratory Processing [facility] [address] [place] [address] 11/29/2023 Laboratory Laboratory Processing [facility] [address] [place] [address] 12/13/2023 Laboratory Laboratory [facility] [address] [place] [address] Scheduled Procedures Name Priority Associated Diagnoses Date/Ti me COLONOSCOPY FLEXIBLE PROXIMA L DIAGNOSTIC Recall History of colonic polyps Health Maintenance Due Date Last Done Comments Alpha-1 Antitrypsin 1953 DIABETES-EYE EXAM 10/28/2022 10/28/2021, , 10/30/2019, Additional history exists DTaP,Tdap,and Td Vaccines (2 - Td or Tdap) 01/11/2023 01/11/2013, 04/01/2003, 04/01/2003 Diabetic Foot Exam 01/14/2023 01/14/2022, 0 12/24/2020, 03/09/2020, Additional history exists Influenza Vaccine (FLU shot) (#1) 2023 07/22/2022, 06/17/2021, 06/17/2021, Additional history exists HbA1c 07/27/2023 01/25/2023, 1203/2022, 01/14/2022, Additional history exists O2 ASSESSMENT COMPLETED IN PAST YEAR FOR COPD 09/06/2023 09/06/2022 CKD PHOS USE SMARTSET 86744 09/07/2023 12/0 04/2022, 09/05/2022, 01/14/2022, Additional history exists Depression Screening 01/25/2024 01/24/2023 DIG LEVEL FOR MEDICATION MONITORING YEARLY 01/26/2024 01/25/2023, 04/17/2021, 03/09/2020, Additional history exists Albumin/Creatinine Ratio 01/27/2024 023, 01/14/2022, 08/14/2017, Additional history exists CKD HGB USE SMARTSET 65684 06/14/202406/14, 06/14/2023, 05/31/2023, Additional history exists COLONOSCOPY-EVERY 5 YRS AGES 18-100 04/25/2028 04/25/2023, 03/26/2020, 07/06/2010, Additional history exists Zoster Vaccines Discontinued 02/10/2012 DXA Scan Discontinued 01/22/2016, 09/02, 09/16/2011, Additional history exists Pneumococcal Vaccine: 65+ Years Completed 01/22/2019, 01/30/2015, 08/22/2006 COVID-19 Vaccine Completed 08/29/2022, , 08/24/2021, Additional history exists GARDASIL-HPV IMMUNIZATION SERIES Aged Out No longer eligible based on patient's age to complete this topic Hepatitis B Aged Out No longer eligi ble based on patient's age to complete this topic MENINGOCOCCAL (MENACTRA/MENVEO) Aged Out No longer eligible based on patient's age to complete this topic documented as of this encounter Medical Devices Implanted Type Area Insole Stiffener Device Identifier Shelf Expiration Date Model / Serial / Lot Screw T2 Alpha Lock [id number] - [id number] Implanted:Qty: 1 on 09/06/2022 by Sean Silva MD at OR [facility] Left: Leg Upper RICHELLE : TRAUMA 06/01/2032 [id number] / / [id number] documented as of this encounter Visit Diagnoses Diagnosis GERD (gastroesophageal reflux disease) Esophageal reflux Atherosclerosis of [place] coronary artery of [place] heart without angina pectoris Tachy-lorna syndrome (HCC) Sinoatrial node dysfunction Heart failure, systolic, due to CAD (HCC) Unspecified systolic heart failure Hypokalemia Hypopotassemia BPH with obstruction/lower urinary tract symptoms Hypertrophy of prostate with urinary obstruction and other lower urinary tract symptoms (LUTS) 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 (HCC) documented in this encounter Advance Directives Documents on File Type Date Recorded Patient Non Destructive Testing Specialist Expl anation POLST 10/17/2022 MAINE OR DERS FOR LIFE-SUSTAINING TREATMENT POLST 09/10/2022 MAINE OR DERS FOR LIFE-SUSTAINING TREATMENT Latest Code [...] Agen t (per Health Care Power of Business Job Titles document) Reji Palaciosmel Dotmelanie Adult Child First Alterna te Health Care Agent (per Health Care Power of Business Job Titles document) Bowen Palaciosmel Adult Child First Alternate Health Care Agent (per Health Care Power of Business Job Titles document) Care Teams Survey Research Associate Relationship Specialty Start Date End Date Zenobia Lyon MD [address] [place] [address] THA Vasquez [address] PCP - General Family Medicine 05/22/23 documented as of this encounter
--- OUTSIDE RECORDS SUMMARY | 2023-08-22 03:49 | External Medical Summary | Summary of Care ---
Author Name Unknown Organization [facility] Address [address] [place] [facility] [place] [address] Phone [phone] Care Team Providers Care Wheel Cleaner Name Role Phone Zenobia Lyon MD Primary Care Provide r Reason for Visit * Reason Onset Date Comments [facility]: Maintenance 06/16/2023 Encounter Details Date Type Department Care Team Description 06/16/2023 Scheduled Telephone [facility], [facility] [address] [place] [address] Coordinator, [facility] [address] [place] [address] Allergies Active Allergy Reactions Severity Noted Date Comments James Inhibitors 09/10/2002 cough on prinivil Hydrocodone 09/05/2022 Family states AMS change when taken Prednisone 05/26/2011 Blisters in throat Sulfa Antibiotics 03/19/2001 dysurea documented as of this encounter (statuses as of 06/16/2023) Medications Medication Sig Dispensed Refills Start Date [...] as needed 100 Each 3 05/20/2022 Active Losartan Potassium 50 MG Oral Tablet (Cozaar)Indications: Heart failure, systolic, due to CAD (HCC) Take by mouth 1 Tablet in the morning. 90 Tablet 3 05/20/2022 Active Metoprolol Succinate ER 50 MG Oral Tablet Extended Release 24 Hour (toPROL XL)Indications:Heart failure, systolic, due to CAD (HCC),Tachy-lorna syndrome (HCC) TAKE ONE TABLET BY MOUTH EVERY DAY 90 Tablet 3 06/28/2022 Active Acetaminophen 500 MG Oral TabletIndications:Ca ncer related pain Take 2 Tablets by mouth 2 times a day with morning and evening meals. 100 Tablet 0 10/28/2022 Active Clopidogrel Bisulfate 75 MG Oral Tablet (pLAVix)Indications: Atherosclerosis of [place] coronary artery of [place] heart without angina pectoris TAKE ONE TABLET BY MOUTH IN THE MORNING 90 Tablet 3 12/23/2022 Active Furosemide 40 MG Oral Tablet (Lasix) Take 1 Tablet by mouth in the morning. 100 Tablet 3 02/23/2023 Active Digoxin 125 MCG Oral Tablet (Lanoxin) TAKE ONE TABLET 3 days per week 36 Tablet 3 03/10/2023 Active glipiZIDE ER 5 MG Oral Tablet Extended Release 24 Hour (glipiZIDE XL) Take 1 Tablet by mouth in the morning. 30 minutes before a meal.. 30 Tablet 5 03/22/2023 Active Dutasteride 0.5 MG Oral Capsule (Avodart)Indications :BPH with obstruction/lower urinary tract symptoms Take 1 Capsule by mouth in the morning. 90 Capsule 1 04/14/2023 Active Pantoprazole Sodium 40 MG Oral Tablet Delayed Release (Protonix)Indication s:GERD (gastroesophageal reflux disease) Take 1 Tablet by mouth daily. 90 Tablet 1 04/24/2023 Active traMADol HCl 50 MG Oral Tablet [...] 19, 2023. 1 Each 0 05/19/2023 Active Methenamine Hippurate 1 GM Oral Tablet (Hiprex) Take 1 Tablet by mouth in the morning and 1 Tablet before bedtime. 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 [...] glenn ek & Lt. leg ; Rt. zoroastrian 07/0207/18/2002 07/15/2015 Dyslipidemia, goal to be determined [...] as of this encounter (statuses as of 06/16/2023) Immunizations Name Administration Dates Next Due COVID-19 [...] encounter Miscellaneous Notes * Telephone Encounter - Portia Yu RN - 06/16/2023 9:57 AM EDT [facility] Telephonic Nurse Follow-Up Call Health system Subprogram: [facility] Home Follow Up Call Type: 24 hour follow up Acute issue requiring follow-up call: acute follow up Objective: 06/15/2023 10:42 PM 06/06/2023 11:20 AM 05/15/2023 10:34 AM 05/13/2023 10:18 AM 05/12/2023 11:40 AM VITALS ACROSS ENCOUNTERS BP 134/68 128/60 144/68 136/64 142/62 Pulse 74 74 68 70 88 Lab Results Component Value Date BLOOD, URINE - [facility] Negative 05/12/2023 PROTEIN - [facility] 8.1 06/14/2023 PROTEIN, URINE - [facility] 30 (A) 05/12/2023 ESTERASE, URINE - [facility] Negative 05/12/2023 WBC AUTO - [facility] 4.10 06/14/2023 WBC, URINE - [facility] 0-2 05/12/2023 NITRITE, URINE - [facility] Negative 05/12/2023 Lab Results Component Value Date WBC AUTO - [facility] 4.10 06/14/2023 HGB - [facility] 7.6 (L) 06/14/2023 PLATELET AUTO - [facility] 232 06/14/2023 Lab Results Component Value Date SODIUM - [facility] 143 06/14/2023 POTASSIUM - [facility] 4.2 06/14/2023 CO2 - [facility] 25 06/14/2023 CREATININE - [facility] 1.5 (H) 06/14/2023 ESTIMATED GLOMERULAR FILTRATION RATE - [facility] 44 (L) 06/14/2023 ALBUMIN - [facility] 3.0 (L) 06/14/2023 AST - [facility] 12 06/14/2023 ALT - [facility] 9 (L) 06/14/2023 ALKALINE PHOSPHATASE - [facility] 30 (L) 06/14/2023 No results found for: PRO BNP, LEFT VENTRICULAR EJECTION FRACTION Remote Patient Monitoring: NONE Oxygen Needs: NO CHANGE from baseline supplemental oxygen needs DME Needs: NO DME needs identified Medications: No medication or dose adjustments made during acute episode Subjective: Condition Status: Symptoms resolved and back to baseline Current Concerns: Spoke with the pt's Remedios. She states that the pt had no further complaints since seen by kirill. The pt was fine last night, ate dinner, had some ice cream and watched TV. Remedios states that the pt is "doing well, much better." The pt is currently sleeping and that he does sleep a lot. Disposition: Weekend call scheduled Future Visits Scheduled: Future Appointments-next 60 days Date/Time Provider Specialty Dept Phone 06/16/2023 12:00 PM [facility] It Business Analyst [facility] [phone] 06/17/2023 11:30 AM Nurse [facility] [phone] 06/22/2023 5:30 PM Lila Brownlee RN [facility] [phone] 06/28/2023 9:10 AM [facility] [phone] 07/11/2023 1:00 PM (Arrive by 12:45 PM) [facility] Cardiology [phone] 07/12/2023 9:10 AM [facility] [phone] 07/17/2023 3:00 PM (Arrive by 2:45 PM) Pilar Joseph PA-C Dermatology [phone] 07/26/2023 9:10 AM [facility] [phone] 07/26/2023 3:00 PM (Arrive by 2:45 PM) Zenobia Lyon MD [facility] Medicine [phone] 08/09/2023 9:10 AM [facility] [phone] 08/23/2023 9:10 AM [facility] [phone] 08/29/2023 3:30 PM (Arrive by 3:15 PM) Chris Choudhury PA-C Cardiology [phone] 09/06/2023 9:10 AM [facility] [phone] 09/20/2023 9:10 AM [facility] [phone] 10/04/2023 9:10 AM [facility] [phone] 10/18/2023 9:10 AM [facility] [phone] 11/01/2023 9:10 AM [facility] [phone] 11/15/2023 9:10 AM [facility] [phone] 11/29/2023 9:10 AM [facility] Laboratory Processing [phone] 12/13/2023 9:10 AM [facility] Laboratory Processing [phone] Portia Yu, RN documented in this encounter Plan of Treatment Upcoming Encounters Date Type Specialty Care Team Description 06/17/2023 Scheduled Telephone [facility] Yao, Nurse [facility] [address] [place] [address] 06/22/2023 Home Visit [facility] Lila Brownlee RN [address] [place] [address] 06/28/[address] [facility], [facility] [address] [place] [address] 07/11/2023 Cardiac Studies Cardiology [facility] [address] [place] [address] 07/12/[address] [facility], [facility] [address] [place] [address] 07/17/2023 Office Visit Dermatology Pilar Joseph PA-C [address] [place] [address] [place] [address] 07/26/2023 Laboratory Laboratory Processing c, [facility] [address] [place] [address] 07/26/2023 Office Visit Family Medicine Zenobia Lyon MD [address] [place] [address] [place] [address] 08/09/2023 Laboratory Laboratory Processing [facility], [facility] [address] [place] [address] 08/23/2023 Laboratory Laboratory Processing [facility], [facility] [address] [place] [address] 08/29/2023 Office Visit Cardiology Chris Choudhury PA-C [address] [place] [address] 09/06/2023 Laboratory Laboratory Processing [facility], [facility] [address] [place] [address] 09/20/2023 Laboratory Laboratory Processing [facility], [facility] [address] [place] [address] 10/04/2023 Laboratory Laboratory Processing [facility], [facility] [address] [place] [address] 10/18/2023 Laboratory Laboratory Processing [facility], [facility] [address] [place] [address] 11/01/2023 Laboratory Laboratory Processing [facility], [facility] [address] [place] [address] 11/15/2023 Laboratory Laboratory Processing [facility], [facility] [address] [place] [address] 11/29/2023 Laboratory Laboratory Processing [facility], [facility] [address] [place] [address] 12/13/2023 Laboratory Laboratory Processing [facility], [facility] [address] [place] [address] Scheduled Procedures Name Priority Associated Diagnoses Date/Ti [...] 06/17/2021, Additional history exists HbA1c 07/27/2023 01/25/2023, 12/0 03/2022, 01/14/2022, Additional history exists O2 ASSESSMENT COMPLETED IN PAST YEAR FOR COPD 09/06/2023 09/06/2022 CKD PHOS USE SMARTSET 71035 09/07/2023 12/0 04/2022, 09/05/2022, 01/14/2022, Additional history exists Depression Screening 01/25/2024 01/24/2023 DIG LEVEL FOR MEDICATION MONITORING YEARLY 01/26/2024 01/25/2023, 04/17/2021, 03/09/2020, Additional history exists Albumin/Creatinine Ratio 01/27/2024 023, 01/14/2022, 08/14/2017, Additional history exists CKD HGB USE SMARTSET 31310 06/14/202406/14, 06/14/2023, 05/31/2023, Additional history exists COLONOSCOPY-EVERY [...] this encounter Medical Devices Implanted Type Area Enrollment Coordinator Device Identifier Shelf Expiration Date Model / Serial / Lot Screw T2 Alpha Lock 5x47.5mm - [id number] Implanted:Qty: 1 on 09/06/2022 by Sean Silva MD at [facility] Left: Leg Upper RICHELLE : TRAUMA 06/01/2032 [id number] / / [id number] documented as of this encounter Advance Directives Documents on File Type Date Recorded Patient Body Trimmer Upholsterer Expl anation POLST 10/17/2022 [place] OR DERS [...] Agen t (per Health Care Power of Material Handling Equipment [employer] document) Reji Prabhakarts Adult Child First Alterna te Health Care Agent (per Health Care Power of Material Handling Equipment [employer] document) Bowen Tello Adult Child First Alternate Health Care Agent (per Health Care Power of Material Handling Equipment [employer] document) Care Teams Wheel Cleaner Relationship Specialty Start Date End Date Zenobia Lyon MD [address] [place] [address] [place] [address] PCP - General Family Medicine 05/22/23 documented as of this encounter
--- OUTSIDE RECORDS SUMMARY | 2023-08-22 03:49 | External Medical Summary | Summary of Care ---
Author Name Unknown Organization [facility] Address [address] [place] [address] Phone [phone] Care Team Providers Care Rn Field Case Manager Name Role Phone Zenobia Lyon MD Primary Care Provide r Reason for Visit * Reason Onset Date Comments [facility]: Maintenance 06/17/2023 Encounter Details Date Type Department Care Team Description 06/17/2023 Scheduled Telephone [facility], [facility] [address] [facility] [place] [address] [employer], Nurse [facility] [address] [facility] [place] [address] Allergies Active Allergy Reactions Severity Noted Date Comments James Inhibitors 09/10/2002 cough on prinivil Hydrocodone 09/05/2022 Family states AMS change when taken Prednisone 05/26/2011 Blisters in throat Sulfa Antibiotics 03/19/2001 dysurea documented as of this encounter (statuses as of 06/17/2023) Medications Medication Sig Dispensed Refills Start Date [...] 75 MG Oral Tablet (pLAVix)Indications: Atherosclerosis of [place] coronary artery of [place] heart without angina pectoris TAKE ONE TABLET [...] as of this encounter (statuses as of 06/17/2023) Active Problems Patient Care Coordination No te [...] CORONARY ATHEROSCLEROSIS OF UNSPECIFIED TYPE OF VESSEL, [place] OR GRAFT Last Assessment & Plan: Stable. 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 Remedios answered the phone and stated that he is fine. He isup and watching the ball game and has no needs at this time. Instructed to give [facility] a call if he needs anything. documented in this encounter Plan of Treatment Upcoming Encounters Date Type Specialty Care Team Description 06/22/2023 Home Visit [facility] Lila Brownlee, RN [address] [place] [address] 06/28/2023 Laboratory Laboratory Processing [facility], [facility] [address] [place] [address] 07/11/2023 [facility] [address] [place] [address] 07/12/2023 Laboratory Laboratory Processing [facility], [facility] [address] [place] [address] 07/17/2023 Office Visit Dermatology Pilar Joseph PA-C [address] [place] [address] [place] [address] 07/26/2023 Laboratory Laboratory Processing [facility], [facility] [address] [place] [address] 07/26/2023 Office Visit Family Medicine Zenobia Lyon MD [address] [place] [address] [place] [address] 08/09/2023 Laboratory Laboratory Processing [facility], [facility] [address] [place] [address] 08/23/2023 Laboratory Laboratory Processing [facility], [facility] [address] [place] [address] 08/29/2023 Office Visit Cardiology Chris Choudhury PA-C [address] [place] [address] 09/06/2023 Laboratory Laboratory Processing [facility], [facility] [address] [place] [address] 09/20/2023 Laboratory Laboratory Processing [facility], [facility] [address] [place] [address] 10/04/2023 Laboratory Laboratory Processing [facility], [facility] [address] [place] [address] 10/18/2023 Laboratory Laboratory Processing [facility], [facility] [address] [place] [address] 11/01/2023 Laboratory Laboratory Processing [facility], [facility] [address] [place] [address] 11/15/2023 Laboratory Laboratory Processing [facility], [facility] [address] [place] [address] 11/29/2023 Laboratory Laboratory Processing [facility], [facility] [address] [place] [address] 12/13/2023 Laboratory Laboratory Processing [facility], [facility] [address] [place] [address] Scheduled Procedures Name Priority Associated Diagnoses Date/Ti [...] COPD 09/06/2023 09/06/2022 CKD PHOS USE SMARTSET 40262 09/07/202304/2022, 09/05/2022, 01/14/2022, Additional history exists Depression Screening 01/25/2024 01/24/2023 DIG LEVEL FOR MEDICATION MONITORING YEARLY 01/26/2024 01/25/2023, 04/17/2021, 03/09/2020, Additional history exists Albumin/Creatinine Ratio 01/27/2024 023, 01/14/2022, 08/14/2017, Additional history exists CKD HGB USE SMARTSET 24494 06/14/202406/14, 06/14/2023, 05/31/2023, Additional history exists COLONOSCOPY-EVERY [...] this encounter Medical Devices Implanted Type Area [place]ram Sewer Device Identifier Shelf Expiration Date Model / Serial / Lot Screw T2 Alpha Lock 5x47.5mm - [id number] Implanted:Qty: 1 on 09/06/2022 by Sean Silva MD at [facility] Left: Leg Upper RICHELLE : TRAUMA 06/01/2032 [id number] / / [id number] documented as of this encounter Advance Directives Documents on File Type Date Recorded 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 POLST 10/17/2022 [place] OR DERS FOR LIFE-SUSTAINING TREATMENT POLST 09/10/2022 [place] OR DERS FOR LIFE-SUSTAINING TREATMENT Latest Code [...] Agen t (per Health Care Power of Cigar Bander document) Reji Tello Dotts Adult Child First Alterna te Health Care Agent (per Health Care Power of [place] document) Bowen Tello Adult Child First Alternate Health Care Agent (per Health Care Power of Cigar [place] document) Care Teams Rn Field Case Manager Relationship Specialty Start Date End Date Zenobia Lyon MD [address] [place] [address] [place] [address] PCP - General Family Medicine 05/22/23 documented as of this encounter
--- OUTSIDE RECORDS SUMMARY | 2023-08-22 03:49 | External Medical Summary ---
Author Name Unknown Address Unknown Organization K01:[facility] - [address] [place] [address] Laboratory Report Ordering Provider Test Date Status APRIL MOLINA 06/28/2023 08:10:00 Final Observation Date Value Abnormality Reference (Units ) Status ABO 06/28/2023 08:10:00 A Final RH 06/28/2023 08:10:00 Positive Final RED BLOOD CELL ANTIBODY SCREEN 06/28/2023 08:10:00 Negative Final SPECIMEN EXPIRATION DATE 06/28/2023 08:10:00 07/01/2023 23:59 Final Performing Location [facility] - [address] [place] [address]
--- OUTSIDE RECORDS SUMMARY | 2023-08-22 03:49 | External Medical Summary | Summary of Care ---
Author Name Unknown Organization [facility] Address [address] [place] [address] Phone [phone] Care Team Providers Care Coat Fitter Name Role Phone Zenobia Lyon MD Primary Care Provide r Reason for Visit * Reason Onset Date Comments Outpatient Testing 06/28/2023 Encounter Details Date Type Department Care Team Description 06/28/2023 Telephone Hematology/Oncology [facility] [address] [place] [address] Pietro Sykes MD [address] [facility] [place] [address] Outpatient Testing Allergies Active Allergy Reactions Severity [...] CORONARY ATHEROSCLEROSIS OF UNSPECIFIED TYPE OF VESSEL, [place] OR GRAFT Last Assessment & Plan: Stable. [...] hematuria 202101/24/2023 Overview: Xavier to [facility] 04/20-04/29 urosepsis multi drug resistant E. [...] glenn ek & Lt. leg ; Rt. episcopalian 07/0207/18/2002 07/15/2015 Dyslipidemia, goal to be determined [...] Care Team Description 07/11/2023 Cardiac Studies Cardiology [facility] [address] [place] [address] 07/12/2023 Laboratory Laboratory Processing [facility], [facility] [address] [place] [address] 07/17/2023 Office Visit Dermatology Pilar Joseph PA-C [address] [place] [address] [place] [address] 07/21/2023 Home Visit [facility]ila Brownlee [facility] [address] [facility] [place] [address] 07/26/2023 Laboratory Laboratory Processing [facility], [facility] [address] [place] [address] 07/26/2023 Office Visit Family Medicine Zenobai Lyon MD [address] [place] [address] [place] [address] 08/09/2023 Laboratory Laboratory Processing [facility], [facility] [address] [place] [address] 08/23/2023 Laboratory Laboratory Processing [facility], [facility] [address] [place] [address] 08/29/2023 Office Visit Cardiology Chris Choudhury PA-Yael [address] [place] [address] 09/06/2023 Laboratory Laboratory Processing [facility], [facility] [address] [place] [address] 09/20/2023 Laboratory Laboratory Processing [facility], [facility] [address] [place] [address] 10/04/2023 Laboratory Laboratory Processing [facility], [facility] [address] [place] [address] 10/18/2023 Laboratory Laboratory Processing [facility], [facility] [address] [place] [address] 11/01/2023 Laboratory Laboratory Processing [facility], [facility] [address] [place] [address] 11/15/2023 Laboratory Laboratory Processing [facility], [facility] [address] [place] [address] 11/29/2023 Laboratory Laboratory Processing [facility], [facility] [address] [place] [address] 12/13/2023 Laboratory Laboratory Processing [facility], [facility] [address] [place] [address] Scheduled Procedures Name Priority Associated Diagnoses Date/Ti [...] COPD 09/06/2023 09/06/2022 CKD PHOS USE SMARTSET 21521 09/07/2023 120 04/2022, 09/05/2022, 01/14/2022, Additional history exists Depression Screening 01/25/2024 01/24/2023 DIG LEVEL FOR MEDICATION MONITORING YEARLY 01/26/2024 01/25/2023, 04/17/2021, 03/09/2020, Additional history exists Albumin/Creatinine Ratio 01/27/2024 023, 01/14/2022, 08/14/2017, Additional history exists CKD HGB USE SMARTSET 86643 06/14/202406/14, 06/14/2023, 05/31/2023, Additional history exists COLONOSCOPY-EVERY [...] this encounter Medical Devices Implanted Type Area Band Nailer Device Identifier Shelf Expiration Date Model / Serial / Lot Screw T2 Alpha Lock 5x47.5mm - [id number] Implanted:Qty: 1 on 09/06/2022 by Sean Silva MD at [facility] Left: Leg Upper RICHELLE : TRAUMA 06/01/2032 [id number] / / [id number] documented as of this encounter Advance Directives Documents on File Type Date Recorded 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 POLST 10/17/2022 [place] OR DERS FOR LIFE-SUSTAINING TREATMENT POLST 09/10/2022 [place] OR DERS FOR LIFE-SUSTAINING TREATMENT Latest Code [...] Agen t (per Health Care Power of Zinc Skimmer document) Reji Tello Dotts Adult Child First Alterna te Health Care Agent (per Health Care Power of Zinc Skimmer document) Bowen Tello Adult Child First Alternate Health Care Agent (per Health Care Power of Zinc Skimmer document) Care Teams Coat Fitter Relationship Specialty Start Date End Date Zenobia Lyon MD [address] [place] [address] [place] [address] PCP - General Family Medicine 05/22/23 documented as of this encounter
--- OUTSIDE RECORDS SUMMARY | 2023-08-22 03:50 | External Medical Summary ---
Author Name Unknown Address Unknown Organization [id number]:LABORATORY [facility] [place] - [address] [facility] [place] [address] Laboratory Report Ordering Provider Test Date Status DEB BULL 06/14/2023 08:33:00 Final Observation Date Value Abnormality Reference (Units ) Status SYNC LEUKOCYTES IN BLOOD BY AUTOMATED COUNT 06/14/2023 08:33:00 4.10 4.00-10.80 (K/uL) Final Segs 06/14/2023 08:33:00 40.5 40.0-75.0 (%) Final Lymphs % 06/14/2023 08:33:00 32.4 18.0-42.0 (%) Final Monos 06/14/2023 08:33:00 13.7 Above high normal 1.0-11.0 (%) Final Eosinophils 06/14/2023 08:33:00 12.7 Above high normal 0.0-6.0 (%) Final Basos 06/14/2023 08:33:00 0.7 0.0-2.0 (%) Final Immature Granulocyte, Percent 06/14/2023 08:33:00 0.0 0.0-2.0 (%) Final Absolute Segs 06/14/2023 08:33:00 1.66 Below low normal 1.80-7.70 (K/uL) Final Lymphs, absolute 06/14/2023 08:33:00 1.33 1.00-4.80 (K/ul) Final Monos, Abs 06/14/2023 08:33:00 0.56 0.00-1.10 (K/uL) Final Eos, Abs 06/14/2023 08:33:00 0.52 0.00-0.70 (K/uL) Final Basos, Abs 06/14/2023 08:33:00 0.03 0.00-0.20 (K/uL) Final Immature Granulocytes, Number 06/14/2023 08:33:00 0.00 0.00-0.20 (K/uL) Final Performing Location LABORATORY [facility] [place] - [facility] [place] [address]
--- OUTSIDE RECORDS SUMMARY | 2023-08-22 03:50 | External Medical Summary | Summary of Care ---
Author Name Unknown Organization [facility] Address [address] [place] [address] Phone [phone] Care Team Providers Care Insulation Worker Interior Surface Name Role Phone Zenobia Lyon MD Primary Care Provide r Reason for Visit * Reason Onset Date Comments Test Results 06/15/2023 Encounter Details Date Type Department Care Team Description 06/15/2023 Telephone Hematology/Oncology [facility] [address] [place] [address] Pietro Sykes MD [address] [facility] [address] Test Results Allergies Active Allergy Reactions Severity Noted Date Comments James Inhibitors 09/10/2002 cough on prinivil Hydrocodone 09/05/2022 Family states AMS change when taken Prednisone 05/26/2011 Blisters in throat Sulfa Antibiotics 03/19/2001 dysurea documented as of this encounter (statuses as of 06/15/2023) Medications Medication Sig Dispensed Refills Start Date [...] 75 MG Oral Tablet (pLAVix)Indications: Atherosclerosis of [place] coronary artery of blackfeet heart without angina pectoris TAKE ONE TABLET [...] as of this encounter (statuses as of 06/15/2023) Active Problems Patient Care Coordination No te [...] CORONARY ATHEROSCLEROSIS OF UNSPECIFIED TYPE OF VESSEL, COLD SPRINGS OR GRAFT Last Assessment & Plan: Stable. 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 leg ; Rt. sikhism 07/0207/18/2002 07/15/2015 Dyslipidemia, goal to be determined [...] as of this encounter (statuses as of 06/15/2023) Immunizations Name Administration Dates Next Due COVID-19 [...] Miscellaneous Notes * Telephone Encounter - Ludivina ALMA Eden - 06/15/2023 9:08 AM EDT Notified patient, per myG message. Lab orders already entered for 2 weeks cbcd ----- Message from Pietro Sykes MD sent at 06/15/2023 6:08 AM EDT ----- Blood workup done on 06/14/2023: -WBC 4100, H&H of 7.6/25.2, Platelet count 232,000. Stable hemoglobin 7.6, no need for blood transfusion Repeat CBCD in 2 weeks. documented in this encounter Plan of Treatment Upcoming Encounters Date Type Specialty Care Team Description 06/22/2023 Home Visit [facility] Lila Brownlee, RN [address] [place] [address] 06/28/2023 Laboratory [facility] [address] [place] [address] 07/11/2023 [facility] [address] [place] [address] 07/12/2023 Laboratory Laboratory [facility] [address] [place] [address] 07/17/2023 Office Visit Dermatology Pilar Joseph PA-C [address] [place] [address] [place] [address] 07/26/2023 Laboratory Laboratory [facility] [address] [place] [address] 07/26/2023 Office Visit Family Medicine Zenobia Lyon MD [address] [place] [address] [place] [address] 08/09/2023 Laboratory Laboratory [facility] [address] [place] [address] 08/23/2023 Laboratory Laboratory [facility] [address] [place] [address] 08/29/2023 Office Visit Cardiology Chris Choudhury PA-C [address] [place] [address] 09/06/2023 Laboratory Laboratory [facility] [address] [place] [address] 09/20/2023 Laboratory Laboratory [facility] [address] [place] [address] 10/04/2023 Laboratory Laboratory [facility] [address] [place] [address] 10/18/2023 Laboratory Laboratory [facility] [address] [place] [address] 11/01/2023 Laboratory Laboratory Processing [facility] [address] [place] [address] 11/15/2023 Laboratory Laboratory Processing [facility] [address] [place] [address] 11/29/2023 Laboratory Laboratory [facility] [address] [place] [address] 12/13/2023 Laboratory Laboratory [facility] [address] [place], [place] [id number] Scheduled Procedures Name Priority Associated Diagnoses Date/Ti [...] COPD 09/06/2023 09/06/2022 CKD PHOS USE SMARTSET 91992 09/07/2023 12/0 04/2022, 09/05/2022, 01/14/2022, Additional history exists Depression Screening 01/25/2024 01/24/2023 DIG LEVEL FOR MEDICATION MONITORING YEARLY 01/26/2024 01/25/2023, 04/17/2021, 03/09/2020, Additional history exists Albumin/Creatinine Ratio 01/27/2024 023, 01/14/2022, 08/14/2017, Additional history exists CKD HGB USE SMARTSET 94580 06/14/202406/14, 06/14/2023, 05/31/2023, Additional history exists COLONOSCOPY-EVERY [...] this encounter Medical Devices Implanted Type Area Country Sales Manager Device Identifier Shelf Expiration Date Model / Serial / Lot Screw T2 Alpha Lock 5x47.5mm - [id number] Implanted:Qty: 1 on 09/06/2022 by Sean Silva MD [place] [facility] [place]: Leg Upper RICHELLE : TRAUMA 06/01/2032 [id number] / / [id number] documented as of this encounter Advance Directives Documents on File Type Date Recorded Patient Research Chief Engineer Expl anation POLST 10/17/2022 [place] DERS FOR LIFE-SUSTAINING TREATMENT POLST 09/10/2022 [place] OR DERS FOR LIFE-SUSTAINING TREATMENT Latest Code [...] Agen t (per Health Care Power of Power Station Operator document) Reji Tello Dotts Adult Child First Alterna te Health Care Agent (per Health Care Power of Power Station Operator document) Bowen Tello Adult Child First Alternate Health Care Agent (per Health Care Power of Power Station Operator document) Care Teams Insulation Worker Interior Surface Relationship Specialty Start Date End Date Zenobia Lyon MD [address] [place] [address] [place] [address] PCP - General Family Medicine 05/22/23 documented as of this encounter
--- OUTSIDE RECORDS SUMMARY | 2023-08-22 03:50 | External Medical Summary | Summary of Care ---
Author Name Unknown Organization [facility] Address [address] [place] [address] Phone [phone] Care Team Providers Care Business Mail Entry Clerk Name Role Phone Zenobia Lyon MD Primary Care Provide r Reason for Visit * Reason Comments eRx-Medication Refill Encounter Details Date Type Department Care Team Description 06/09/2023 Refill Family [address] [id number] Muriel Moreira MD [address] [place] [address] [place] [address] Hypokalemia Allergies Active Allergy Reactions Severity Noted Date Comments James Inhibitors 09/10/2002 cough on prinivil Hydrocodone 09/05/2022 Family states AMS change when taken Prednisone 05/26/2011 Blisters in throat Sulfa Antibiotics 03/19/2001 dysurea documented as of this encounter (statuses as of 06/10/2023) Medications Medication Sig Dispensed Refills Start Date End Date Status OXYGENIndications:H ypoxia,Acute systolic CHF (congestive heart failure) (HCC) 2L/min via nasal cannula 24 hours continous, please provide portables as well 1 Each 0 07/30/20 14 Active Latanoprost 0.005 % Ophthalmic Solution (Xalatan) Instill into both eyes 1 Drop in the morning. 2.5 mL 0 05/13/20 22 Active Ventolin HFA 108 (90 Base) MCG/ACT Inhalation Aerosol SolutionIndications :Moderate persistent asthma without complication Inhale by mouth 2 Puffs 4 times a day . 18 g 0 05/13/20 Active Magnesium Oxide 400 MG Oral TabletIndications:T rifascicular block,Coronary atherosclerosis one per day 34 Tablet 11 05/13/20 22 Active Multivitamin Adult Oral Tablet Take by mouth daily . 0 Active OneTouch Ultra Blue In Vitro Strip (Glucose Blood)Indications:T ype 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 (HCC) Use to test blood sugar as needed 100 Strip 3 05/20/20 Active OneTouch UltraSoft LancetsIndications: Type 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 (HCC) Use to test blood sugar as needed 100 Each 05/20/20 22 Active Losartan Potassium 50 MG Oral Tablet (Cozaar)Indications :Heart failure, systolic, due to CAD (HCC) Take by mouth 1 Tablet in the morning. 90 Tablet 3 05/20/20 22 Active Metoprolol Succinate ER 50 MG Oral Tablet Extended Release 24 Hour (toPROL XL)Indications:Hear t failure, systolic, due to CAD (HCC),Tachy-lorna syndrome (HCC) TAKE ONE TABLET BY MOUTH EVERY DAY 90 Tablet 3 06/28/20 22 Active Acetaminophen 500 MG Oral TabletIndications:C ancer related pain Take 2 Tablets by mouth 2 times a day with morning and evening meals. 100 Tablet 0 10/28/19 23 Active Clopidogrel Bisulfate 75 MG Oral Tablet (pLAVix)Indications :Atherosclerosis of [place] coronary artery of [place] heart without angina pectoris TAKE ONE TABLET BY MOUTH IN THE MORNING 90 Tablet 3 12/24/19 23 Active Furosemide 40 MG Oral Tablet (Lasix) Take 1 Tablet by mouth in the morning. 100 Tablet 3 02/24/20 23 Active Digoxin 125 MCG Oral Tablet (Lanoxin) TAKE ONE TABLET 3 days per week 36 Tablet 3 03/10/20 23 Active glipiZIDE ER 5 MG Oral Tablet Extended Release 24 Hour (glipiZIDE XL) Take 1 Tablet by mouth in the morning. 30 minutes before a meal.. 30 Tablet 5 03/22/20 23 Active Dutasteride 0.5 MG Oral Capsule (Avodart)Indication s:BPH with obstruction/lower urinary tract symptoms Take 1 Capsule by mouth in the morning. 90 Capsule 1 04/14/20 Active Pantoprazole Sodium 40 MG Oral Tablet Delayed Release (Protonix)Indicatio ns:GERD (gastroesophageal reflux disease) Take 1 Tablet by mouth daily. 90 Tablet 1 04/24/20 Active traMADol HCl 50 MG Oral Tablet (Ultram) Take 1 Tablet by mouth every 6 hours as needed. 0 Active Ondansetron HCl 4 MG Oral Tablet Take 1 Tablet by mouth every 6 hours as needed for Nausea. 20 Tablet 0 05/15/20 Active Fluticasone-Salmete rol 250-50 MCG/ACT Inhalation Aerosol Powder Breath Activated (Wixela Inhub)Indications:A sthma, moderate persistent Inhale 1 Puff by mouth in the morning and 1 Puff before bedtime. 3 Each 05/15/20 Active MEDICAL INSTRUCTIONS 1) obtain a I can cause for 2 units packed red blood cells 2) transfuse 2 units of packed red blood cells according to the infusion centers policies 3) provide 650 mg of Tylenol approximately 30 minutes before starting the infusion Do not start before May 19, 2023. 1 Each 0 05/19/20 Active Methenamine Hippurate 1 GM Oral Tablet (Hiprex) Take 1 Tablet by mouth in the morning and 1 Tablet before bedtime. 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 (HCC) TAKE ONE TABLET BY MOUTH TWICE DAILY 180 Tablet 3 06/07/20 23 Active Potassium Chloride Emma ER 20 MEQ Oral Tablet Extended ReleaseIndications: Hypokalemia TAKE ONE TABLET BY MOUTH IN THE MORNING 90 Tablet 3 06/10/20 23 Active Potassium Chloride Emma ER 20 MEQ Oral Tablet Extended ReleaseIndications: Hypokalemia TAKE 1 TABLET BY MOUTH EVERY MORNING 90 Tablet 0 02/26/20 23 023 Discontinued documented as of this encounter (statuses as of 06/10/2023) Active Problems Patient Care Coordination No te [...] control in clinical research program 03/25/2015 Overview: [employer] Product Surveillance Registry PI: Kylah Lilly IV, [...] as of this encounter (statuses as of 06/10/2023) Resolved Problems Problem Noted Date Resolved Date [...] infection without hematuria 202101/24/2023 Overview: Xavier to [facility] 04/20-04/29 urosepsis multi drug resistant E. Coli [...] as of this encounter (statuses as of 06/10/2023) Immunizations Name Administration Dates Next Due COVID-19 [...] encounter Miscellaneous Notes * Telephone Encounter - Bella Crouch RPh - 06/10/2023 8:11 PM EDTSigned Prescriptions: Disp Refills Potassium Chloride Emma ER 20 MEQ Oral Tab*90 Tab*3 Sig: TAKE ONE TABLET BY MOUTH IN THE MORNINGAuthorizing Provider: Loi LYON User: PIPE CROUCH documented in this encounter Plan of Treatment Upcoming Encounters Date Type Specialty Care Team Description 06/14/2023 Laboratory [facility] [address] [place] [address] 06/22/2023 Home Visit [facility] Lila Brownlee, RN [address] [place] [address] 06/28/2023 Laboratory Laboratory Processing [facility], [facility] [address] [place] [address] 07/11/2023 Cardiac Studies Cardiology [facility] [address] [place] [address] 07/12/2023 Laboratory Laboratory Processing [facility], [facility] [address] [place] [address] 07/17/2023 Office Visit Dermatology Pilar Joseph PA-C [address] [place] [address] [place] [address] 07/26/2023 Laboratory Laboratory Processing [facility], [facility] [address] [place] [address] 07/26/2023 Office Visit Family Medicine Zenobia Lyon MD [address] [place] [address] [place] [address] 08/09/2023 Laboratory Laboratory [facility] [address] [place] [address] 08/23/2023 Laboratory Laboratory [facility] [address] [place] [address] 08/29/2023 Office Visit Cardiology Chris Choudhury PA-C [address] [place] [address] 09/06/2023 Laboratory Laboratory Processing [facility] [address] [place] [address] 09/20/2023 Laboratory Laboratory Processing [facility] [address] [place] [address] 10/04/2023 Laboratory Laboratory [facility] [address] [place] [address] 10/18/2023 Laboratory [facility] [address] [place] [address] 11/01/2023 Laboratory Laboratory [facility] [address] [place] [address] 11/15/2023 Laboratory Laboratory [facility] [address] [place] [address] 11/29/2023 Laboratory Laboratory [facility] [address] [place] [address] 12/13/2023 Laboratory Laboratory [facility] [address] [place] [address] Scheduled Procedures Name Priority Associated Diagnoses Date/Ti [...] COPD 09/06/2023 09/06/2022 CKD PHOS USE SMARTSET 96065 09/07/2023 12/0 04/2022, 09/05/2022, 01/14/2022, Additional history exists Depression Screening 01/25/2024 01/24/2023 DIG LEVEL FOR MEDICATION MONITORING YEARLY 01/26/2024 01/25/2023, 04/17/2021, 03/09/2020, Additional history exists Albumin/Creatinine Ratio 01/27/2024 023, 01/14/2022, 08/14/2017, Additional history exists CKD HGB USE SMARTSET 17146 05/31/202405/31, 05/31/2023, 05/17/2023, Additional history exists COLONOSCOPY-EVERY 5 YRS AGES [...] this encounter Medical Devices Implanted Type Area Sizing Sprayer Device Identifier Shelf Expiration Date Model / Serial / Lot Screw T2 Alpha Lock 5x47.5mm - [id number] Implanted:Qty: 1 on 09/06/2022 by Sean Silva MD at [facility] Left: Leg Upper RICHELLE : TRAUMA 06/01/2032 [id number] / / [id number] documented as of this encounter Visit Diagnoses Diagnosis Hypokalemia Hypopotassemia documented in this encounter Advance Directives Documents on File Type Date Recorded Patient Statistics Professor Expl anation POLST 10/17/2022 [place] OR DERS FOR LIFE-SUSTAINING TREATMENT POLST 09/10/2022 [place] OR DERS FOR LIFE-SUSTAINING TREATMENT Latest Code [...] Agen t (per Health Care Power of Vending Technician document) Reji Leobardo Neil Adult Child First Alterna te Health Care Agent (per Health Care Power of Vending Technician document) Bowen Tello Adult Child First Alternate Health Care Agent (per Health Care Power of Vending Technician document) Care Teams Business Mail Entry Clerk Relationship Specialty Start Date End Date Zenobia Lyon MD [address] [place] [address] [place] [address] PCP - General Family Medicine 05/22/23 documented as of this encounter
--- OUTSIDE RECORDS SUMMARY | 2023-08-22 03:50 | External Medical Summary | Summary of Care ---
Author Name Unknown Organization [facility] Address [address] [place] [address] Phone [phone] Care Team Providers Care Watch Adjuster Name Role Phone Zenobia Lyon MD Primary Care Provide r Reason for Visit * Reason Onset Date Comments [facility]: Acute 06/15/2023 Encounter Details Date Type Department Care Team Description 06/15/2023 Telephone [facility], [facility] [address] [facility] [place] [address] [facility], Nurse [facility] [address] [facility] [place] [address] [facility]: Acute Allergies Active Allergy Reactions Severity Noted Date [...] (toPROL XL)Indications:Heart failure, systolic, due to CAD (HCC),Tachy-lonra syndrome (HCC) TAKE ONE TABLET BY MOUTH EVERY DAY 90 Tablet 3 06/28/2022 Active Acetaminophen 500 MG Oral TabletIndications:Ca ncer related pain Take 2 Tablets by mouth 2 times a day with morning and evening meals. 100 Tablet 0 10/28/2022 Active Clopidogrel Bisulfate 75 MG Oral Tablet (pLAVix)Indications: Atherosclerosis of wiyot coronary artery of wiyot heart without angina pectoris TAKE ONE TABLET [...] control in clinical research program 03/25/2015 Overview: [employer] Product Surveillance Registry PI: Kylah Lilly IV, [...] CORONARY ATHEROSCLEROSIS OF UNSPECIFIED TYPE OF VESSEL, [place] OR GRAFT Last Assessment & Plan: Stable. [...] hematuria 202101/24/2023 Overview: [facility] to [facility] 04/20-04/29 urosepsis multi drug resistant E. Coli [...] encounter Miscellaneous Notes * Telephone Encounter - Andressa Spaulding RN - 06/15/2023 9:57 AM EDT Communication Note Name: Marshall Tello Sr. Situation: 88 yr old pt lives in [place]. reports pain in the left side under his breast radiating to under his left arm which started 2 days ago Background: hx of HF, tachy-lorna syndrome, Afib, DM, COPD, multiple myeloma, anemia, GERD, Alzheimer's Assessment: very difficult phone assessment. unable to provide much information. states that the pt has a hx of shingles to the area. 2 days ago pt started to have c/o of pain under his left breast area that wrapped around to under his armpit. Today states that the pt c/o his jaw/ cheek and ear hurt. Unsure if pain is cardiac pain. States that the pt due to his dementia is not able to describe pain. Denies any increased SOB, states that the pt sleeps about 20 hrs per day which is his norm. Denies any lightheadedness or dizziness. reports a non productive cough with no other cold or flu symptoms States that the pt did not eat anything yesterday or today but is drinking fluids and urinating without difficulty. Denies any nausea or indigestion. BP this am 124/77. temp 99.1 does not remember HR. Recommendation: Home visit today. [facility] biomedical engineer Acute Call Date: 06/15/2023 Time: 10:27 AM Name: Marshall Tello Sr. : 1935 Caller: Remedios Relationship to Pt: Chief Complaint Patient presents with [facility]: Acute HPI: Marshall Tello Sr. is a 88 year old male that is calling [facility] Intake to report pain to the left side. Nursing Assessment: Patient's chief complaint for this call: Communication Note Name: Marshall Tello Sr. Situation: 88 yr old pt lives in [place]. reports pain in the left side under his breast radiating to under his left arm which started 2 days ago Background: hx of HF, tachy-lorna syndrome, Afib, DM, COPD, multiple myeloma, anemia, GERD, Alzheimer's Assessment: very difficult phone assessment. unable to provide much information. states that the pt has a hx of shingles to the area. 2 days ago pt started to have c/o of pain under his left breast area that wrapped around to under his armpit. Today states that the pt c/o his jaw/ cheek and ear hurt. Unsure if pain is cardiac pain. States that the pt due to his dementia is not able to describe pain. Denies any increased SOB, states that the pt sleeps about 20 hrs per day which is his norm. Denies any lightheadedness or dizziness. States that the pt did not eat anything yesterday or today but is drinking fluids and urinating without difficulty. Denies any nausea or indigestion. reports a non productive cough with no other cold or flu symptoms BP this am 124/77. temp 99.1 does not remember HR. Recommendation: Home visit today. Baseline Assessment Able to performing ADLs at baseline (walking, daily tasks, etc.): No Chief Complaint is related to a chronic condition: Unknown Patient prescribed oxygen? Yes, 2L/min Patient has been ordered DME equipment (assistive devices, respiratory equipment, etc.): No Medication Reconciliation: (See medication list) Received flu shot this season: No Taking medication as ordered: Yes Medications ordered/taking to treat reason for call: No Heart failure symptoms: No COPD exacerbation symptoms: No Treatment/Plan: (need to report) Level of call: Acute Appointment scheduled for same day: Yes Abstract Maker Provider Name: TBD Call back instructions provided to patient. documented in this encounter Plan of Treatment Upcoming Encounters Date Type Specialty Care Team Description 06/22/2023 [facility] [place] [address] 06/28/2023 Laboratory Laboratory Processing [facility] Home Draw [address] [place] [address] 07/11/2023 [facility]iac Studies [facility] [address] [facility] [place] [address] 07/12/2023 Laboratory Laboratory Processing [facility] Draw [address] [place] [address] 07/17/2023 Office Visit Dermatology Pilar Joseph PA-C [address] [place] [address] [place] [address] 07/26/2023 Laboratory Laboratory Processing [facility] Draw [address] [place] [address] 07/26/2023 Office Visit Family Medicine Zenobia Lyon MD [address] [facility] [place] [address] 08/09/2023 Laboratory Laboratory Processing [facility] [address] [place] [address] 08/23/2023 Laboratory Laboratory Processing [facility] [address] [place] [address] 08/29/2023 Office Visit Cardiology Chris Choudhury PA-C [address] [place] [address] 09/06/2023 Laboratory Laboratory Processing [facility] [address] [place] [address] 09/20/2023 Laboratory Laboratory Processing [facility] [address] [place] [address] 10/04/2023 Laboratory Laboratory Processing [facility] [address] [place] [address] 10/18/2023 Laboratory Laboratory Processing [facility] [address] [place] [address] 11/01/2023 Laboratory Laboratory Processing [facility] [address] [place] [address] 11/15/2023 Laboratory Laboratory Processing [facility] [address] [place] [address] 11/29/2023 Laboratory Laboratory Processing [facility] [address] [place] [address] 12/13/2023 Laboratory Laboratory Processing [facility] [address] [place] [address] Scheduled Procedures Name Priority Associated Diagnoses Date/Ti [...] COPD 09/06/2023 09/06/2022 CKD PHOS USE SMARTSET 69197 09/07/2023 12/0 04/2022, 09/05/2022, 01/14/2022, Additional history exists Depression Screening 01/25/2024 01/24/2023 DIG LEVEL FOR MEDICATION MONITORING YEARLY 01/26/2024 01/25/2023, 04/17/2021, 03/09/2020, Additional history exists Albumin/Creatinine Ratio 01/27/202401/26/ 023, 01/14/2022, 08/14/2017, Additional history exists CKD HGB USE SMARTSET 22192 06/14/202406/14, 06/14/2023, 05/31/2023, Additional history exists COLONOSCOPY-EVERY [...] this encounter Medical Devices Implanted Type Area Sawmill Production Worker Device Identifier Shelf Expiration Date Model / Serial / Lot Screw T2 Alpha Lock 5x47.5mm - [id number] Implanted:Qty: 1 on 09/06/2022 by Sean Silva MD at [facility] Left: Leg Upper RICHELLE : TRAUMA 06/01/2032 [id number] / / [id number] documented as of this encounter Advance Directives Documents on File Type Date Recorded Patient Pen Tester Expl anation POLST 10/17/2022 [place] OR DERS FOR LIFE-SUSTAINING TREATMENT POLST 09/10/2022 [place] OR DERS FOR LIFE-SUSTAINING TREATMENT Latest Code [...] Agen t (per Health Care Power of Cost Reduction Engineer document) Reji Tello Dotts Adult Child First Alterna te Health Care Agent (per Health Care Power of Cost Reduction Engineer document) Bowen Tello Adult Child First Alternate Health Care Agent (per Health Care Power of Cost Reduction Engineer document) Care Teams Watch Adjuster Relationship Specialty Start Date End Date Zenobia Lyon MD [address] [place] [address] [place] [address] PCP - General Family Medicine 05/22/23 documented as of this encounter
--- OUTSIDE RECORDS SUMMARY | 2023-08-22 03:50 | External Medical Summary ---
Author Name Unknown Address Unknown Organization [id number]:[facility] - [address] [facility] [place] [address] Laboratory Report Ordering Provider Test Date Status DEB BULL 06/14/2023 08:33:00 Final Observation Date Value Abnormality Reference (Units ) Status BUN 06/14/2023 08:33:00 26 Above high normal 6-20 (mg/dL) Final Creatinine 06/14/2023 08:33:00 1.5 Above high normal 0.6-1.2 (mg/dL) Final Glomerular filtration rate/1.73 sq M.predicted [Volume Rate/Area] in Serum, Plasma or Blood by Creatinine-based formula (CKD-EPI) 06/14/2023 08:33:00 44 Below low normal >=60 (mL/min) Final eGFR is calculated based on the CKD-EPI 2020 equation SODIUM 06/14/2023 08:33:00 143 135-146 (m mol/L) Final Potassium 06/14/2023 08:33:00 4.2 3.5-5.1 (m mol/L) Final Cl 06/14/2023 08:33:00 102 98-107 (mm ol/L) Final CO2 06/14/2023 08:33:00 25 22-32 (mmo l/L) Final Anion gap 06/14/2023 08:33:00 16 Above high normal 7- 15 (mmol/L) Final Glucose 06/14/2023 08:33:00 112 70-120 (mg /dL) Final Albumin 06/14/2023 08:33:00 3.0 Below low normal 3.8 -5.0 (g/dL) Final AST (Aspartate aminotransferase) 06/14/2023 08:33:00 12 10-50 (U/L) Fin al Alk Phos 06/14/2023 08:33:00 30 Below low normal 35- 130 (U/L) Final Bilirubin, Total 06/14/2023 08:33:00 0.3 <=1 .2 (mg/dL) Final Calcium 06/14/2023 08:33:00 9.6 8.4-10.2 ( mg/dL) Final Protein 06/14/2023 08:33:00 8.1 6.0-8.3 (g /dL) Final ALT (Alanine aminotransferase) 06/14/2023 08:33:00 9 Below low normal 10-50 (U/L) Final Performing Location [facility] - [address] [facility] [address]
--- OUTSIDE RECORDS SUMMARY | 2023-08-22 03:50 | External Medical Summary | Summary of Care ---
Author Name Unknown Organization [facility] Address [address] [place] [address] Phone [phone] Care Team Providers Care Dye Range Tender Name Role Phone Zenobia Lyon MD Primary Care Provide r Encounter Details Date Type Department Care Team Description 06/15/2023 Home Visit [facility], [facility] [address] [place] [address] Brennen Kay PA-C [address] [place] [place] [address] Left-sided chest wall pain*; Chronic combined systolic (congestive) and diastolic (congestive) heart failure (HCC); Chronic atrial fibrillation (HCC); Atherosclerosis of [place] coronary artery of [place] heart without angina pectoris; 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); Multiple myeloma not having achieved remission (HCC); Palliative care encounter; Advanced care planning/counseling discussion Allergies Active Allergy Reactions Severity Noted Date [...] 75 MG Oral Tablet (pLAVix)Indications: Atherosclerosis of [place] coronary artery of [place] heart without angina pectoris TAKE ONE TABLET [...] CORONARY ATHEROSCLEROSIS OF UNSPECIFIED TYPE OF VESSEL, BIG LAGOON OR GRAFT Last Assessment & Plan: Stable. [...] [employer] ; Rt. jainism 07/0207/18/2002 07/15/2015 Dyslipidemia, goal to be determined [...] at Date Recorded Male 01/24/2023 3:56 PM EDT Job Start Date Occupation Industry Not on file Not on file Not on file documented as of this encounter Last Filed Vital Signs Vital Sign Reading Time Taken Comments Blood Pressure 134/68 06/15/2023 10:42 PM EDT Pulse 74 06/15/2023 10:42 PM EDT Temperature - - Respiratory Rate - - Oxygen Saturation 98% 06/15/2023 10:42 PM EDT Inhaled Oxygen Concentration - - [...] as of this encounter Progress Notes * Brennen Kay PA-C - 06/15/2023 10:23 PM EDT [facility] Palliative Medicine Progress Note Date: 06/15/2023 Time: 11:30 Name: Marshall Tello Sr. : 1935 Purpose of Visit: acute visit Location: Home Individual(s) present: Patient and Spouse Coordination of Care: Cardiology and Primary Care ASSESSMENT/PLAN: (R07.89) Left-sided chest wall pain (primary encounter diagnosis) Plan: reviewed etiologies of pain including post herpetic neuralgia, CAD, or lytic lesions of ribs previously noted on CT Will try lidocaine patches for now (I50.42) Chronic combined systolic (congestive) and diastolic (congestive) heart failure (HCC) Plan: euvolemic today I25.10) Atherosclerosis of [place] coronary artery of [place] heart without angina pectoris (I48.20) Chronic atrial fibrillation (HCC) Plan: rate controlled (G30.1, F02.80) 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) Plan: slow progression (C90.00) Multiple myeloma not having achieved remission (HCC) Plan: currently getting blood work q2 weeks and transfusions as needed (Z51.5) Palliative care encounter Plan: DNR, DNI. Still ok with blood transfusions Reviewed multiple irreversible conditions, myeloma, CAD, myeloma Would prefer to avoid hospital, but not ready for hospice If pain persists or worsens, could consider low dose morphine Continue to follow for palliative. Will schedule return in 2 to 3 months, or sooner if indicated. Advance care planning/Goals of Care: See documentation in Advance Care Planning module and ACP note. SUBJECTIVE: Family present: yes, reviewed Patient is 88 year old with dementia and multiple myeloma. Found to have lytic lesion of left femurwith impending fracture, and underwent ORIF 09/06/22 followed by SNF stay. Palliative and oncology consulted and family elected against aggressive treatment for myeloma. He did have 1 radiation treatment. Was trialed on dexamethasone, however had to be stopped due to increased confusion and agitation. Patient lives at home with his as primary caregiver. Children live close by, with 1 living next door, that help out. He remains fairly functional, able to dress, shower, and toilet himself. Spouse prepares meals and manages medications. 04/20-04/25/23 - [facility], symptomatic anemia, GI consulted, no source of bleeding identified, 3 units prbc 05/19/23 -outpatient transfusion. Family has not noticed any improvement of fatigue. Seen for acute visit today for complaint of left sided chest pain reported by spouse. She reports pain last few days, but similar and same location as recent shingles rash. Also having some left jaw pain last few days. Notices pain with open/closing of jaw and chewing. Does have some dental caries with some untreated decay on left side. ROS limited by dementia. Denies pain at this time, but states he has complained of left side chest wall pain. BP stable. HR controlled. Denies increased SOB, cough, fever/chills. Has known cardiac history including CAD with bypass in 1999, stenting in 2013, cardiomyopathy, chronic afib, pacemaker, chf. Multiple myeloma that family elected not to treat Continues with fatigue, sleeping about 20 hours daily. Pain: having some chest and jaw pain per , using tylenol bid Nausea: no Vomiting: no Confusion: yes, reviewed Somnolence: yes, reviewed Constipation: no Dyspnea: no Anxious: no Support: spouse, daughter next door, son close Med Management: spouse Ambulates: independent HISTORY: Social History Tobacco Use Smoking status: Former Packs/day: 1.00 Years: 20.00 Pack years: 20.00 Types: Cigarettes Quit date: 10/02/1969 Years since quittin.7 Smokeless tobacco: Never Tobacco comments: 1969 Substance Use Topics Alcohol use: Not Currently Comment: rare 88 year old year-old male with the following active problems: Patient Active Problem List Diagnosis Code CORONARY ATHEROSCLEROSIS OF UNSPECIFIED TYPE OF VESSEL, BIG [place] OR GRAFT I25.10 Elevated prostate specific antigen (PSA) R97.20 BPH without obstruction/lower urinary tract symptoms N40.0 erectile dysfunction N52.9 Dyslipidemia, goal LDL below 70 E78.5 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 Asthma, moderate persistent J45.40 Type 2 diabetes mellitus with hemoglobin A1c goal of less than 7.5% ([facility]) E11.9 Essential hypertension with goal blood pressure less than 140/90 I10 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 Longstanding persistent atrial fibrillation ([facility]) I48.11 Ischemic cardiomyopathy I25.5 Aortic valve insufficiency I35.1 Automatic implantable cardioverter-defibrillator in situ Z95.810 Encounter for examination for normal comparison and control in clinical research program Z00.6 Gastroesophageal reflux disease with esophagitis K21.00 Type 2 diabetes mellitus with diabetic nephropathy, without long-term current use of insulin (HCC) E11.21 Sensorineural hearing loss (SNHL) of both ears H90.3 Hx of nonmelanoma skin cancer Z85.828 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, R31.9 Chronic atrial fibrillation ([facility]) I48.20 Primary open-angle glaucoma, left eye, mild stage H40.1121 Skin lesion L98.9 DISH (diffuse idiopathic skeletal hyperostosis) M48.10 Chronic obstructive pulmonary disease ([facility]) J44.9 Other specified peripheral vascular diseases ([facility]) I73.89 Type 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 ([facility]) E11.51 DM type 2 with diabetic peripheral neuropathy ([facility]) E11.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 ([facility]) I13.0, I50.42, N18.31 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 ([facility]) N18.31, D63.1 Iron deficiency anemia D50.9 Type 2 diabetes mellitus with stage 3a chronic kidney disease, without long-term current use of insulin ([facility]) E11.22, N18.31 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[facility]) G30.1, F02.80 Multiple myeloma ([facility]) C90.00 Infrarenal abdominal aortic aneurysm (AAA) without rupture ([facility]) 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 ([facility]) I50.42 Current Outpatient Medications Medication Sig Dispense Refill [...] blood sugar as needed 100 Each 3 Losartan Potassium 50 MG Oral Tablet (Cozaar) Take by mouth 1 Tablet in the morning. 90 Tablet 3 Metoprolol Succinate ER 50 MG Oral Tablet Extended Release 24 Hour (toPROL XL) TAKE ONE TABLET BY MOUTH EVERY DAY 90 Tablet 3 Acetaminophen 500 MG Oral Tablet Take 2 Tablets by mouth 2 times a day with morning and evening meals. 100 Tablet 0 Clopidogrel Bisulfate 75 MG Oral Tablet (pLAVix) TAKE ONE TABLET BY MOUTH IN THE MORNING 90 Tablet 3 Furosemide 40 MG Oral Tablet (Lasix) Take 1 Tablet by mouth in the morning. 100 Tablet 3 Digoxin 125 MCG Oral Tablet (Lanoxin) TAKE ONE TABLET 3 days per week 36 Tablet 3 glipiZIDE ER 5 MG Oral Tablet Extended Release 24 Hour (glipiZIDE XL) Take 1 Tablet by mouth in themorning. 30 minutes before a meal.. 30 Tablet 5 Dutasteride 0.5 MG Oral Capsule (Avodart) Take 1 Capsule by mouth in the morning. 90 Capsule 1 Pantoprazole Sodium 40 MG Oral Tablet Delayed Release (Protonix) Take 1 Tablet by mouth daily. 90 Tablet 1 traMADol HCl 50 MG Oral Tablet (Ultram) [...] before May 19, 2023. 1 Each 0 Methenamine Hippurate 1 GM Oral Tablet (Hiprex) Take 1 Tablet by mouth in the morning and 1 Tablet before bedtime. 60 Tablet 11 Ferrous Sulfate 325 (65 Fe) MG Oral Tablet (Feosol) TAKE ONE TABLET BY MOUTH TWICE DAILY 180 Tablet3 Potassium Chloride Emma ER 20 MEQ Oral Tablet Extended Release TAKE ONE TABLET BY MOUTH IN THE MORNING 90 Tablet 3 No current facility-administered medications for this visit. Physical Exam: BP Readings from Last 3 Encounters: 06/15/23 134/68 06/06/23 128/60 05/15/23 144/68 { Wt Readings from Last 3 Encounters: 05/03/23 90.7 kg (200 lb) 04/28/23 93.4 kg (206 lb) 02/01/23 92.5 kg (204 lb) Vital signs: Blood pressure 134/68, pulse 74, SpO2 98 %. General: alert and no distress Neuro: alert & oriented x 2 with fluent speech Oropharynx; multiple fillings with some decay noted to upper left teeth Heart: no murmur and irregularly irregular Lungs: no chest wall tenderness, decreased breath sounds, no wheeze, no rales, no rhonchi Abdomen: abdomen soft, non-tender, normal bowel sounds, and no rebound or guarding Ext: Normal extremities without edema Recent Results: Component Latest Ref Rng 05/31/2023 06/14/2023 BUN 6 - 20 mg/dL 26 (H) Creatinine 0.6 - 1.2 mg/dL 1.5 (H) Estimated Glomerular Filtration Rate >=60 mL/min 44 (L) Sodium 135 - 146 mmol/L 143 Potassium 3.5 - 5.1 mmol/L 4.2 Chloride 98 - 107 mmol/L 102 CO2 22 - 32 mmol/L 25 Anion Gap 7 - 15 mmol/L 16 (H) Glucose 70 - 120 mg/dL 112 Albumin 3.8 - 5.0 g/dL 3.0 (L) AST 10 - 50 U/L 12 Alkaline Phosphatase 35 - 130 U/L 30 (L) Bilirubin, Total <=1.2 mg/dL 0.3 Calcium 8.4 - 10.2 mg/dL 9.6 Protein 6.0 - 8.3 g/dL 8.1 ALT 10 - 50 U/L 9 (L) WBC 4.00 - 10.80 K/uL 4.75 4.10 Neutrophils % 40.0 - 75.0 % 42.9 40.5 Lymphocytes % 18.0 - 42.0 % 36.4 32.4 Monocytes % 1.0 - 11.0 % 10.7 13.7 (H) Eosinophils % 0.0 - 6.0 % 8.6 (H) 12.7 (H) Basophils % 0.0 - 2.0 % 0.8 0.7 Immature Granulocytes % 0.0 - 2.0 % 0.6 0.0 Absolute Neutrophils 1.80 - 7.70 K/uL 2.03 1.66 (L) Absolute Lymphocytes 1.00 - 4.80 K/ul 1.73 1.33 Absolute Monocytes 0.00 - 1.10 K/uL 0.51 0.56 Absolute Eosinophils 0.00 - 0.70 K/uL 0.41 0.52 Absolute Basophils 0.00 - 0.20 K/uL 0.04 0.03 Absolute Immature Granulocytes 0.00 - 0.20 K/uL 0.03 0.00 WBC 4.00 - 10.80 K/uL 4.75 4.10 RBC 4.50 - 5.25 M/uL 2.46 2.29 HGB 14.0 - 16.8 g/dL 7.9 (L) 7.6 (L) HCT 40.0 - 48.4 % 26.5 (L) 25.2 (L) MCV 82.0 - 99.5 fL 107.7 110.0 MCH 27.0 - 34.0 pg 32.1 33.2 MCHC 32.0 - 36.0 g/dL 29.8 30.2 RDW 11.5 - 15.5 % 18.8 18.7 PLT 140 - 400 K/uL 278 232 MPV 6.6 - 11.1 fL 9.7 9.7 nRBCs <=0 /100 WBCs 0 0 Ferritin 30 - 400 ng/mL 43 (H) High (L) Low See top of note for assessment/plan Scheduled appointments in the next 60 days: Future Appointments-next 60 days Date/Time Provider Specialty Dept Phone 06/16/2023 12:00 PM [facility] Slide Fastener Chain Assembler [facility] [phone] 06/17/2023 11:30 AM Nurse [facility] [phone] 06/22/2023 5:30 PM [facility] [phone] 06/28/2023 9:10 AM [facility] [phone] 07/11/2023 1:00 PM (Arrive by 12:45 PM) [facility] Cardiology [phone] 07/12/2023 9:10 AM [facility] [phone] 07/17/2023 3:00 PM (Arrive by 2:45 PM) Pilar Joseph PA-C Dermatology [phone] 07/26/2023 9:10 AM [facility] Laboratory Processing [phone] 07/26/2023 3:00 PM (Arrive by 2:45 PM) Zenobia Lyon MD [facility] [phone] 08/09/2023 9:10 AM [facility] Processing [phone] 08/23/2023 9:10 AM [facility] Laboratory Processing [phone] 08/29/2023 3:30 PM (Arrive by 3:15 PM) Chris Choudhury PA-C Cardiology [phone] 09/06/2023 9:10 AM [facility] Laboratory Processing [phone] 09/20/2023 9:10 AM [facility] Processing [phone] 10/04/2023 9:10 AM [facility] [phone] 10/18/2023 9:10 AM [facility] [phone] 11/01/2023 9:10 AM [facility] Processing [phone] 11/15/2023 9:10 AM [facility] Processing [phone] 11/29/2023 9:10 AM [facility] Processing [phone] 12/13/2023 9:10 AM [facility] Laboratory Processing [phone] DAMEON Rod at [address] [place] [address] documented in this encounter Miscellaneous Notes * ACP (Advance Care Planning) - Brennen Kay PA-C - 06/15/2023 10:52 PM EDT Images from the original note were not included. Patient-centered Communication 06/15/2023 The patient/surrogate voluntarily agreed to participate in advance care planning discussion. They were advised that this is a separate service which may incur out of pocket cost in the form of copayment and/or deductibles. Location: Home Individual(s) present for conversation: Patient and Spouse Decisions Synopsis SmartLink Most Recent Value Past ~10 years 12/30/2022 13:43 Decisions CPR decision: Declines CPR 12/30/2022 Declines CPR Intubation/Mechanical Ventilation decision: Declines Intubation/mechanical ventilation 12/30/2022 Declines Intubation/mechanical ventilation Antibiotic therapy decision: Patient chooses Antibiotic therapy 10/30/2022 Artificial nutrition decision: Declines Artificial nutrition 05/30/2022 IV hydration decision: Patient chooses IV hydration 10/30/2022 Blood transfusion decision: Patient chooses Blood transfusion 12/30/2022 Patient chooses Blood transfusion Lab draw decision: Patient chooses Lab draws 05/30/2022 Hospice decision: Undecided about Hospice 12/30/2022 Undecided about Hospice Additional Comments Synopsis [facility] Most Recent Value Past ~10 years 06/06/2023 11:40 Additional Comments Additional Comments: DNR, DNI. Still ok with labs and transfusions prn. not ready for hospice 06/06/2023 DNR, DNI. Still ok with labs and transfusions prn. not ready for hospice Discerning What Matters Most to the Patient: Synopsis [facility]Link Most Recent Value Past ~10 years 06/06/2023 11:40 Discerning What Matters Most to the Patient In their own words, patient's UNDERSTANDING of their illness is: limited by dementia 06/06/2023 limited by dementia Their current SYMPTOMS include: Tiredness;Lack of appetite;Reduced overall well being 06/06/2023 Tiredness;Lack of appetite;Reduced overall well being Was PROGNOSIS discussed? No 10/30/2022 Prognosis was not discussed due to: Other, please comment Patient with dementia. Spouse preferred not to discuss illness 10/30/2022 The patient considers these as 'UNACCEPTABLE OUTCOMES': "Being a vegetable" (define below) 05/30/2022 Source: Content from [employer] Program Aligning Care With What Matters Most: Synopsis [facility] Most Recent Value Past ~10 years 03/24/2023 13:11 Aligning Care With What Matters Most In their own words, the patient's understanding of their prognosis: does not contribute due to dementia 03/24/2023 does not contribute due to dementia Interventions/Choices: CPR;Intubation/mechanical ventilation;Hospice;Blood transfusion 12/30/2022 Rationale for Decisions Synopsis [facility] Most Recent Value Past ~10 years 12/30/2022 13:43 Hospice Their goals for Hospice treatment are: maintain quality of life 12/30/2022 maintain quality of life Source: Content from [employer] Program 45 minutes spent in direct [id number] discussion today, Brennen Kay PA-C documented in this encounter Plan of Treatment Upcoming Encounters Date Type Specialty Care Team Description 06/16/2023 Scheduled Telephone [facility] Field Data Collector, Shira Velázquez Count Includes [facility] [address] [place] [address] 06/17/2023 Scheduled Telephone [facility] Region, Nurse [facility] [address] [address] 06/22/2023 Home Visit [facility] Lila Brownlee RN [address] [address] 06/28/2023 Laboratory Laboratory Processing [facility], [facility] Mobile Home Draw [address] [place] [address] 07/11/2023 Cardiac Studies Cardiology [facility] [address] [place] [address] 07/12/2023 Laboratory Laboratory Processing [facility] [address] [place] [address] 07/17/2023 Office Visit Dermatology Pilar Joseph PA-C [address] [place] [address] [place] [address] 07/26/2023 Laboratory Laboratory Processing [facility] [address] [place] [address] 07/26/2023 Office Visit Family Medicine Zenobia Lyon MD [address] [place] [address] [place] [address] 08/09/2023 Laboratory Laboratory Processing [facility] [address] [place] [address] 08/23/2023 Laboratory Laboratory Processing [facility] [address] [place] [address] 08/29/2023 Office Visit Cardiology Chris Choudhury PA-C [address] [place] [address] 09/06/2023 Laboratory Laboratory Processing [facility] [address] [place] [address] 09/20/2023 Laboratory Laboratory Processing [facility] [address] [place] [address] 10/04/2023 Laboratory Laboratory Processing [facility] [address] [place] [address] 10/18/2023 Laboratory Laboratory Processing [facility], [facility] Mobile Home Draw [address] [place] [address] 11/01/2023 Laboratory Laboratory Processing [facility], [facility] Home Draw [address] [place] [address] 11/15/2023 Laboratory Laboratory Processing [facility], [facility] Draw [address] [place] [address] 11/29/2023 Laboratory Laboratory Processing [facility], [facility] Draw [address] [place] [address] 12/13/2023 Laboratory Laboratory Processing [facility], [facility] Draw [address] [place] [address] Scheduled Procedures Name Priority Associated Diagnoses Date/Ti [...] 06/17/2021, Additional history exists HbA1c 07/27/2023 01/25/2023, 12/03/2022, 01/14/2022, Additional history exists O2 ASSESSMENT COMPLETED IN PAST YEAR FOR COPD 09/06/2023 09/06/2022 CKD PHOS USE SMARTSET 84233 09/07/2023 12/0 04/2022, 09/05/2022, 01/14/2022, Additional history exists Depression Screening 01/25/2024 01/24/2023 DIG LEVEL FOR MEDICATION MONITORING YEARLY 01/26/2024 01/25/2023, 04/17/2021, 03/09/2020, Additional history exists Albumin/Creatinine Ratio 01/27/2024 023, 01/14/2022, 08/14/2017, Additional history exists CKD HGB USE SMARTSET 22206 06/14/202406/14, 06/14/2023, 05/31/2023, Additional history exists COLONOSCOPY-EVERY [...] this encounter Medical Devices Implanted Type Area Intake Man Device Identifier Shelf Expiration Date Model / Serial / Lot Screw T2 Alpha Lock 5x47.5mm - [id number] Implanted:Qty: 1 on 09/06/2022 [place] [facility]: Leg Upper RICHELLE : TRAUMA 06/01/2032 [id number] / / [id number] documented as of this encounter Visit Diagnoses Diagnosis Left-sided chest wall pain- Primary Painful respiration Chronic combined systolic (congestive) and diastolic (congestive) heart failure (HCC) Chronic atrial fibrillation (HCC) Atrial fibrillation Atherosclerosis of [place] coronary artery of [place] heart without angina pectoris 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) Multiple myeloma not having achieved remission (HCC) Multiple myeloma, without mention of having achieved remission Palliative care encounter Encounter for palliative care Advanced care planning/counseling discussion Other specified counseling documented in this encounter Advance Directives Documents on File Type Date Recorded Patient Pulp Maker Expl anation POLST 10/17/2022 [place] DERS [...] Agen t (per Health Care Power of Shank Sorter document) Reji Tello Dotts Adult Child First Alterna te Health Care Agent (per Health Care Power of Shank Sorter document) Bowen Tello Adult Child First Alternate Health Care Agent (per Health Care Power of Shank Sorter document) Care Teams Dye Range Tender Relationship Specialty Start Date End Date Zenobia Lyon MD [address] [place] [address] [place] [address] PCP - General Family Medicine 05/22/23 documented as of this encounter
--- OUTSIDE RECORDS SUMMARY | 2023-08-22 03:50 | External Medical Summary ---
Author Name Unknown Address Unknown Organization [id number]:LABORATORY [facility] - [address] [facility] [address] Laboratory Report Ordering Provider Test Date Status DEB BULL 06/14/2023 08:33:00 Final Observation Date Value Abnormality Reference (Units ) Status WBC, Total 06/14/2023 08:33:00 4.10 4.00-10.80 (K/uL) Final RBC 06/14/2023 08:33:00 2.29 4.50-5.25 (M/uL) Final Hemoglobin 06/14/2023 08:33:00 7.6 Below low normal 14.0-16.8 (g/dL) Final HCT 06/14/2023 08:33:00 25.2 Below low normal 40.0-48.4 (%) Final MCV 06/14/2023 08:33:00 110.0 82.0-99.5 (fL) Final MCH 06/14/2023 08:33:00 33.2 27.0-34.0 (pg) Final MCHC 06/14/2023 08:33:00 30.2 32.0-36.0 (g/dL) Final RDW 06/14/2023 08:33:00 18.7 11.5-15.5 (%) Final Platelets 06/14/2023 08:33:00 232 140-400 (K/uL) Final MPV 06/14/2023 08:33:00 9.7 6.6-11.1 (fL) Final Nucleated erythrocytes/100 leukocytes [Ratio] in Blood by Automated count 06/14/2023 08:33:00 0 <=0 (/100 WBCs) Final Performing Location [facility] - [address] [facility] [address]
--- OUTSIDE RECORDS SUMMARY | 2023-08-22 03:50 | External Medical Summary | Summary of Care ---
Author Name Unknown Organization [facility] Address [address] [place] [address] Phone [phone] Care Team Providers Care Malt Loader Name Role Phone Zenobia Lyon MD Primary Care Provide r Reason for Visit * Reason Onset Date Comments [facility]: Acute 06/15/2023 Encounter Details Date Type Department Care Team Description 06/15/2023 Telephone [facility], [facility] [address] [facility] [place] [address] [facility], Nurse [facility] [address] [facility] [place] [address] [facility]: Acute [...] Oral Tablet (pLAVix)Indications: Atherosclerosis of [place] coronary artery of [place] heart without angina pectoris TAKE ONE TABLET [...] control in clinical research program 03/25/2015 Overview: [employer] Product Surveillance Registry PI: Kylah Lilly IV, [...] infection without hematuria 202101/24/2023 Overview: [facility] to [facility] 04/20-04/29 urosepsis multi drug resistant [...] glenn ek & Lt. leg ; Rt. hinduism 07/0207/18/2002 07/15/2015 Dyslipidemia, goal to be determined [...] encounter Miscellaneous Notes * Telephone Encounter - Samson Conway PA-C - 06/15/2023 1:04 PM EDT [facility] Command Phone Encounter Thank you for your assistance in the care of this patient today. 88 year old year old male patient who presents today with pain left chest following dermatone to posterior shoulder. Had Zoster in past is this area. Also now jaw, cheek and ear pain. Agree with intake to seen someone to see patient. * Telephone Encounter - Andressa Spaulding RN - 06/15/2023 9:57 AM EDT Communication Note Name: Marshall Tello Sr. Situation: 88 yr old pt lives in [place]. reports pain in the left side under [...] not remember HR. Recommendation: Home visit today. 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 : 1935 Caller: Remedios Relationship to Pt: Chief Complaint Patient presents with [facility]: Acute HPI: Marshall Tello Sr. is a 88 year old male that is calling [facility] Int[facility] to report pain to the left side. Nursing Assessment: Patient's chief complaint for this call: Communication Note Name: Marshall Tello . Situation: 88 yr old pt lives in [place]. reports pain in the left side under [...] Acute Appointment scheduled for same day: Yes Proposal Consultant Provider Name: TBD Call back instructions provided to patient. documented in this encounter Plan of Treatment Upcoming Encounters Date Type Specialty Care Team Description 06/16/2023 Scheduled Telephone [facility] Specialist, [address] [place] [address] 06/17/2023 Scheduled Telephone [facility], Nurse Shira Velázquez [address] [place] [address] 06/22/2023 Home Visit [facility] Lila Brownlee RN [address] [place] [address] 06/28/2023 Laboratory [facility] Draw [address] [place] [address] 07/11/2023 Cardiac Studies Cardiology [facility] [address] [place] [address] 07/12/2023 Laboratory [facility] [address] [place] [address] 07/17/2023 Office Visit Dermatology Pilar Joseph PA-C [address] [place] [address] [place] [address] 07/26/2023 Laboratory [facility] [address] [place] [address] 07/26/2023 Office Visit Family Medicine Zenobia Lyon MD [address] [place] [address] [place] [address] 08/09/2023 Laboratory [facility] [address] [place] [address] 08/23/2023 Laboratory [facility] [address] [place] [address] 08/29/2023 Office Visit Cardiology Chris Choudhury PA-C [address] [place] [address] 09/06/2023 Laboratory Laboratory [facility] [address] [place] [address] 09/20/2023 Laboratory [facility] [address] [place] [address] 10/04/2023 Laboratory [facility] [address] [place] [address] 10/18/2023 Laboratory [facility] [address] [place] [address] 11/01/2023 Laboratory [facility] [address] [place] [address] 11/15/2023 Laboratory [facility] [address] [place] [address] 11/29/2023 Laboratory [facility] [address] [place] [address] 12/13/2023 Laboratory [facility] [address] [place] [address] Scheduled Procedures Name Priority Associated Diagnoses Date/Ti [...] 06/17/2021, Additional history exists HbA1c 07/27/2023 01/25/2023, 03/2022, 01/14/2022, Additional history exists O2 ASSESSMENT COMPLETED IN PAST YEAR FOR COPD 09/06/2023 09/06/2022 CKD PHOS USE SMARTSET 64572 09/07/2023 120 04/2022, 09/05/2022, 01/14/2022, Additional history exists Depression Screening 01/25/2024 01/24/2023 DIG LEVEL FOR MEDICATION MONITORING YEARLY 01/26/2024 01/25/2023, 04/17/2021, 03/09/2020, Additional history exists Albumin/Creatinine Ratio 01/27/2024 023, 01/14/2022, 08/14/2017, Additional history exists CKD HGB USE SMARTSET 75785 06/14/202406/14, 06/14/2023, 05/31/2023, Additional history exists COLONOSCOPY-EVERY [...] this encounter Medical Devices Implanted Type Area Head Kiln Operator Device Identifier Shelf Expiration Date Model / Serial / Lot Screw T2 Alpha Lock 5x47.5mm - [id number] Implanted:Qty: 1 on 09/06/2022 by Sean Silva MD at OR [facility] [place] [facility] Left: Leg Upper RICHELLE : TRAUMA 06/01/2032 [id number] / / [id number] documented as of this encounter Advance Directives Documents on File Type Date Recorded 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
--- OUTSIDE RECORDS SUMMARY | 2023-08-22 03:50 | External Medical Summary | Summary of Care ---
Author Name Unknown Organization [facility] Address [address] [place] [address] Phone [phone] Care Team Providers Care Whirley Operator Name Role Phone Zenobia Lyon MD Primary Care Provide r Reason for Visit * Reason Comments eRx-Medication Refill Encounter Details Date Type Department Care Team Description 06/07/2023 Refill [facility], [place] [address] [place] [id number] Zenobia Lyon MD [address] [place] [address] [place] [address] 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 (HCC) Allergies Active Allergy Reactions Severity Noted Date Comments James Inhibitors 09/10/2002 cough on prinivil Hydrocodone 09/05/2022 Family states AMS change when taken Prednisone 05/26/2011 Blisters in throat Sulfa Antibiotics 03/19/2001 dysurea documented as of this encounter (statuses as of 06/07/2023) Medications Medication Sig Dispensed Refills Start Date [...] one per day 34 Tablet 11 05/13/20 Active Multivitamin Adult Oral Tablet Take by mouth daily . 0 Active OneTouch Ultra Blue In Vitro Strip (Glucose Blood)Indications:T ype 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 (HCC) Use to test blood sugar as needed 100 Strip 3 05/20/20 22 Active OneTouch UltraSoft LancetsIndications: Type [...] 75 MG Oral Tablet (pLAVix)Indications :Atherosclerosis of [place] coronary artery of [place] heart without angina pectoris TAKE ONE TABLET BY MOUTH IN THE MORNING 90 Tablet 3 12/24/19 23 Active Furosemide 40 MG Oral Tablet (Lasix) Take 1 Tablet by mouth in the morning. 100 Tablet 3 02/24/20 23 Active Potassium Chloride Emma ER 20 MEQ Oral Tablet Extended ReleaseIndications: Hypokalemia TAKE 1 TABLET BY MOUTH EVERY MORNING 90 Tablet 0 02/26/20 23 Active Digoxin 125 MCG Oral Tablet [...] in the morning. 90 Capsule 1 04/14/20 23 Active Pantoprazole Sodium 40 MG Oral Tablet Delayed Release (Protonix)Indicatio ns:GERD (gastroesophageal reflux disease) Take 1 Tablet by mouth daily. 90 Tablet 1 04/24/20 23 Active traMADol HCl 50 MG Oral Tablet [...] 1 Puff before bedtime. 3 Each 3 05/15/20 23 Active MEDICAL INSTRUCTIONS 1) obtain a I can cause for 2 units packed red blood cells 2) transfuse 2 units of packed red blood cells according to the infusion centers policies 3) provide 650 mg of Tylenol approximately 30 minutes before starting the infusion Do not start before May 19, 2023. 1 Each 0 05/19/20 23 Active Methenamine Hippurate 1 GM Oral Tablet (Hiprex) Take 1 Tablet by mouth in the morning and 1 Tablet before bedtime. 60 Tablet 11 06/06/20 23 Active Ferrous Sulfate 325 (65 Fe) MG Oral Tablet (Feosol)Indications :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 (HCC) TAKE ONE TABLET BY MOUTH TWICE DAILY 180 Tablet 3 06/07/20 23 Active Ferrous Sulfate 325 (65 Fe) MG Oral Tablet (Feosol)Indications :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 0 09/16/20 22 023 Discontinued documented as of this encounter (statuses as of 06/07/2023) Active Problems Patient Care Coordination No te [...] control in clinical research program 03/25/2015 Overview: [employer] Product Surveillance Registry PI: Kylah Lilly IV, [...] Assessment & Plan: BP at goal -Continue cozaleonard norvasc Asthma, moderate persistent 07/12/2011 Tachy-lorna syndrome 02/08/2010 Dyslipidemia, goal LDL below 70 09/10/20 09 Overview: Per Lipid Taxonomy. 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 Coli [...] glenn ek & Lt. leg ; Rt. spiritism 07/0207/18/2002 07/15/2015 Dyslipidemia, goal to be determined [...] as of this encounter (statuses as of 06/07/2023) Immunizations Name Administration Dates Next Due COVID-19 [...] encounter Miscellaneous Notes * Telephone Encounter - Shaina Gonzalez LPN - 06/07/2023 2:59 PM EDTPending Prescriptions: Disp Refills Ferrous Sulfate 325 (65 Fe) MG Oral Tablet*180 Ta*3 Sig: TAKE ONE TABLET BY MOUTH TWICE DAILY * Telephone Encounter - Shaina Gonzalez LPN - 06/07/2023 2:57 PM EDT Did you pend patient's preferred pharmacy and medication before forwarding?yes Pharmacy: [id number] [address] [facility] Pending Prescriptions: Disp Refills Ferrous Sulfate 325 (65 Fe) MG Oral Table*180 Ta*3 Sig: TAKE ONE TABLET BY MOUTH TWICE DAILY Last Visit: Visit date not found (in office), Visit date not found (telemedicine) Next Visit: 06/22/2023 If no future appointments scheduled, and last appointment is greater than a year ago, please schedule patient for a follow-up appointment Last date the medication was ordered: 09/16/22 Is this request for a controlled substance?No Urine Drug Screen:No results found. However, due to the size of the patient record, not all encounters were searched. Please check Results Review for a complete set of results. Patient Phone Numbers Labs: Lab Results Component Value Date/Time CREAT 1.6 (H) 05/15/2023 10:42 AM CREAT 1.27 07/27/2021 12:00 AM CREAT 1.2 05/29/2020 03:13 PM CREAT 0.8 01/08/1997 09:40 AM POTASSIUM 4.8 05/15/2023 10:42 AM POTASSIUM 3.8 07/27/2021 12:00 AM POTASSIUM 4.6 05/29/2020 03:13 PM POTASSIUM 4.7 01/08/1997 09:40 AM TSH 1.97 09/06/2022 03:24 AM TSH 1.04 11/06/2018 01:43 PM LDLCALC 31 03/09/2020 12:04 PM LDLCALC 159. (H) 01/08/1997 09:40 AM LDLDIRECT 46 12/24/2020 02:55 PM LDLDIRECT 44 03/09/2020 12:04 PM ALT 11 05/15/2023 10:42 AM ALT 13 11/06/2018 01:43 PM ALT 23 01/08/1997 09:40 AM HGBA1C 9.3 (H) 01/25/2023 08:06 AM HGBA1C 6.9 (H) 03/09/2020 12:04 PM Shaina Gonzalez LPN [facility] 06/07/2023,2:57 PM * Telephone Encounter - Colleen Westbrook RPh - 06/07/2023 11:36 AM EDT Pending Prescriptions: Disp Refills Ferrous Sulfate 325 (65 Fe) MG Oral Tablet*180 Ta*0 Sig: TAKE ONE TABLET BY MOUTH TWICE DAILY documented in this encounter Plan of Treatment Upcoming Encounters Date Type Specialty Care Team Description 06/14/2023 Laboratory Laboratory Processing [facility] Mobile Home Draw [address] [place] [address] 06/22/2023 Home Visit [facility] Lila Brownlee, RN [address] [place] [address] 06/28/2023 Laboratory Laboratory Processing [facility] Home Draw [address] [place] [address] 07/11/2023 Cardiac Studies [facility] [address] [address] 07/12/2023 Laboratory [facility] [address] [place] [address] 07/17/2023 Office Visit Dermatology Pilar Joseph PA-C [address] [place] [address] [place] [address] 07/26/2023 Laboratory [facility] [address] [place] [address] 07/26/2023 Office Visit Family Medicine Zenobia Lyon MD [address] [place] [address] [place] [address] 08/09/2023 Laboratory [facility] [address] [place] [address] 08/23/2023 Laboratory [facility] [address] [place] [address] 08/29/2023 Office Visit Cardiology Chris Choudhury PA-C [address] [place] [address] 09/06/2023 Laboratory [facility] [address] [place] [address] 09/20/2023 Laboratory [facility] [address] [place] [address] 10/04/2023 Laboratory [facility] [address] [place] [address] 10/18/2023 Laboratory Laboratory Processing [facility] Draw [address] [place] [address] 11/01/2023 Laboratory Laboratory Processing [facility], [facility] Mobile Home Draw [address] [place] [address] 11/15/2023 Laboratory Laboratory Processing [facility] [address] [place] [address] 11/29/2023 Laboratory Laboratory Processing [facility] [address] [place] [address] 12/13/2023 Laboratory Laboratory Processing [facility], [facility] Home Draw [address] [place] [address] Scheduled Procedures Name Priority Associated Diagnoses Date/Ti [...] COPD 09/06/2023 09/06/2022 CKD PHOS USE SMARTSET 03537 09/07/2023 12/0 04/2022, 09/05/2022, 01/14/2022, Additional history exists Depression Screening, Annual for Pts 12 and Over 01/25/2024 01/24/2023 DIG LEVEL FOR MEDICATION MONITORING YEARLY 01/26/2024 01/25/2023, 04/17/2021, 03/09/2020, Additional history exists Albumin/Creatinine Ratio 01/27/2024 023, 01/14/2022, 08/14/2017, Additional history exists CKD HGB USE SMARTSET 25591 05/31/202405/31, 05/31/2023, 05/17/2023, Additional history exists COLONOSCOPY-EVERY [...] this encounter Medical Devices Implanted Type Area Screw Machine Hand Device Identifier Shelf Expiration Date Model / Serial / Lot Screw T2 Alpha Lock 5x47.5mm - [id number] Implanted:Qty: 1 on 09/06/2022 by Sean Silva MD at OR [facility] [place] Left: Leg Upper RICHELLE : TRAUMA 06/01/2032 [id number] / / [id number] documented as of this encounter Visit Diagnoses Diagnosis 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 (HCC) documented in this encounter Advance Directives Documents on File Type Date Recorded 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 10/17/2022 [place] [facility] FOR LIFE-SUSTAINING TREATMENT POLST 09/10/2022 [place] OR [facility] FOR LIFE-SUSTAINING TREATMENT Latest Code [...] Agen t (per Health Care Power of Legal Instruments Examiner document) Reji Tello Dotts Adult Child First Alterna te Health Care Agent (per Health Care Power of Legal Instruments Examiner document) Bowen Tello Adult Child First Alternate Health Care Agent (per Health Care Power of Legal Instruments Examiner document) Care Teams Whirley Operator Relationship Specialty Start Date End Date Zenobia Lyon MD [address] [place] [address] [place] [address] PCP - General Family Medicine 05/22/23 documented as of this encounter
--- OUTSIDE RECORDS SUMMARY | 2023-08-22 03:50 | External Medical Summary ---
Author Name Unknown Address Unknown Organization K01:LABORATORY [facility] [place] - [address] [place] [address] Laboratory Report Ordering Provider Test Date Status DEB BULL 06/14/2023 08:33:00 Final Observation Date Value Abnormality Reference (Units ) Status Ferritin 06/14/2023 08:33:00 43 30-400 (ng /mL) Final Performing Location [facility]ORY [facility] - [address] [place] [address]
--- OUTSIDE RECORDS SUMMARY | 2023-08-22 03:51 | External Medical Summary | Summary of Care ---
Author Name Unknown Organization [facility] Address [address] [place] [address] Phone [phone] Care Team Providers Care Masking Machine Operator Name Role Phone Zenobia Lyon MD Primary Care Provide r Encounter Details Date Type Department Care Team Description 06/06/2023 Home Visit [facility], [facility] [address] [place] [address] Brennen Kay PA-C [address] [place] [address] Palliative care encounter*; Advanced care planning/counseling discussion; Multiple myeloma not having achieved remission (HCC); 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[facility]) Allergies Active Allergy Reactions Severity Noted Date Comments James Inhibitors 09/10/2002 cough on prinivil Hydrocodone 09/05/2022 Family states AMS change when taken Prednisone 05/26/2011 Blisters in throat Sulfa Antibiotics 03/19/2001 dysurea documented as of this encounter (statuses as of 06/06/2023) Medications Medication Sig Dispensed Refills Start Date [...] as needed 100 Each 3 2 Active Losartan Potassium 50 MG Oral Tablet (Cozaar)Indications: Heart failure, systolic, due to CAD (HCC) Take by mouth 1 Tablet in the morning. 90 Tablet 3 2 Active Metoprolol Succinate ER 50 MG Oral Tablet Extended Release 24 Hour (toPROL XL)Indications:Heart failure, systolic, due to CAD (HCC),Tachy-lorna syndrome (HCC) TAKE ONE TABLET BY MOUTH EVERY DAY 90 Tablet 3 2 Active Ferrous Sulfate 325 (65 Fe) MG Oral Tablet (Feosol)Indications: 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 0 2 Active Acetaminophen 500 MG Oral TabletIndications:Ca ncer related pain Take 2 Tablets by mouth 2 times a day with morning and evening meals. 100 Tablet 0 3 Active Clopidogrel Bisulfate 75 MG Oral Tablet (pLAVix)Indications: Atherosclerosis of lumbee coronary artery of lumbee heart without angina pectoris TAKE ONE TABLET BY MOUTH IN THE MORNING 90 Tablet 3 3 Active Furosemide 40 MG Oral Tablet (Lasix) Take 1 Tablet by mouth in the morning. 100 Tablet 3 3 Active Potassium Chloride Emma ER 20 MEQ Oral Tablet Extended ReleaseIndications:H ypokalemia TAKE 1 TABLET BY MOUTH EVERY MORNING 90 Tablet 0 3 Active Digoxin 125 MCG Oral Tablet (Lanoxin) TAKE ONE TABLET 3 days per week 36 Tablet 3 3 Active glipiZIDE ER 5 MG Oral Tablet Extended Release 24 Hour (glipiZIDE XL) Take 1 Tablet by mouth in the morning. 30 minutes before a meal.. 30 Tablet 5 3 Active Dutasteride 0.5 MG Oral Capsule (Avodart)Indications :BPH with obstruction/lower urinary tract symptoms Take 1 Capsule by mouth in the morning. 90 Capsule 1 3 Active Pantoprazole Sodium 40 MG Oral Tablet Delayed Release (Protonix)Indication s:GERD (gastroesophageal reflux disease) Take 1 Tablet by mouth daily. 90 Tablet 1 3 Active traMADol HCl 50 MG Oral [...] 19, 2023. 1 Each 0 3 Active Methenamine Hippurate 1 GM Oral Tablet (Hiprex) Take 1 Tablet by mouth in the morning and 1 Tablet before bedtime. 60 Tablet 11 3 Active Methenamine Hippurate 1 GM Oral Tablet Take 1 Tablet by mouth in the morning and 1 Tablet before bedtime. 0 2 06/06/20 23 Discontinu ed(Refill) documented as of this encounter (statuses as of 06/06/2023) Active Problems Patient Care Coordination No te [...] CORONARY ATHEROSCLEROSIS OF UNSPECIFIED TYPE OF VESSEL, KIPNUK OR GRAFT Last Assessment & Plan: Stable. 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 documented as of this encounter (statuses as of 06/06/2023) Resolved Problems Problem Noted Date Resolved Date [...] [employer]enn [employer] 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 : 1935 Purpose of Visit: Symptom management, Advance care planning, and Discuss goals of care Location: Home Individual(s) present: Patient, Spouse, Son(s), and Daughter(s) Coordination of Care: Primary Care ASSESSMENT/PLAN: (Z51.5) Palliative care encounter (primary encounter diagnosis) (Z71.89) Advanced care planning/counseling discussio (C90.00) Multiple myeloma not having achieved remission (HCC) Plan: remains DNR, DNI, ok with limited interventions Ok with routine labs and blood transfusions prn Briefly discussed hospice, aware that this would mean d/c labs and transfusions Family prefers to hold off on hospice at this point, hospice FAQ pamphlet left for family Aware to reach out to [facility] with any concerns Will reach out to mobile lab to try and avoid Monday bloodwork due to difficulty with arranging transfusions (G30.1, F02.80) 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 Will schedule [...] himself. Spouse prepares meals and manages medications. Since last visit, patient has required multiple transfusions. Hgb as low as 5.1 in April and was admitted to [facility]. 04/20-04/25/23 - [facility], symptomatic anemia, GI consulted, no source of bleeding identified, 3 units prbc Had another transfusion outpatient on 05/19/23. Family has not noticed any improvement of fatigue. reports that he sleeps about 20 hours per day and has no energy. Labs are being monitored every other week with transfusions as needed. Patient tolerating transfusions. Reviewed with family that current symptoms are typical of myeloma. Family at this time continue to be agreeable to labs/transfusions as needed. Discussed that need for labs and transfusions may increase in frequency. 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 Longstanding persistent atrial fibrillation (HCC) I48.11 Ischemic cardiomyopathy I25.5 Aortic valve insufficiency I35.1 Automatic implantable cardioverter-defibrillator in situ Z95.810 Encounter for examination for normal comparison and control in clinical research program Z00.6 Gastroesophageal reflux disease with esophagitis K21.00 Type 2 diabetes mellitus with diabetic nephropathy, without long-term current use of insulin ([facility]) E11.21 Sensorineural hearing loss (SNHL) of both ears H90.3 Hx of nonmelanoma skin cancer Z85.828 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, R31.9 Chronic atrial fibrillation ([facility]) I48.20 Primary open-angle glaucoma, left eye, mild stage H40.1121 Skin lesion L98.9 DISH (diffuse idiopathic skeletal hyperostosis) M48.10 Chronic obstructive pulmonary disease ([facility]) J44.9 Other specified peripheral vascular diseases ([facility]) I73.89 Type 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 ([facility]) E11.51 DM type 2 with diabetic peripheral neuropathy ([facility]) E11.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 ([facility]) I13.0, I50.42, N18.31 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 ([facility]) N18.31, D63.1 Iron deficiency anemia D50.9 Type 2 diabetes mellitus with stage 3a chronic kidney disease, without long-term current use of insulin ([facility]) E11.22, N18.31 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[facility]) G30.1, F02.80 Multiple myeloma ([facility]) C90.00 Infrarenal abdominal aortic aneurysm (AAA) without rupture ([facility]) 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 ([facility]) I50.42 Current Outpatient Medications Medication Sig Dispense [...] Tablet in the morning. 90 Tablet 3 Methenamine Hippurate 1 GM Oral Tablet Take 1 Tablet by mouth in the morning and 1 Tablet before bedtime. Metoprolol Succinate ER 50 MG Oral Tablet Extended Release 24 Hour (toPROL XL) TAKE ONE TABLET BY MOUTH EVERY DAY 90 Tablet 3 Ferrous Sulfate 325 (65 Fe) MG Oral Tablet (Feosol) Take 1 Tablet by mouth every other day. Acetaminophen 500 MG Oral Tablet Take 2 Tablets by mouth 2 times a day with morning and evening meals. 100 Tablet 0 Clopidogrel Bisulfate 75 MG Oral Tablet (pLAVix) TAKE ONE TABLET BY MOUTH IN THE MORNING 90 Tablet 3 Furosemide 40 MG Oral Tablet (Lasix) Take 1 Tablet by mouth in the morning. 100 Tablet 3 Potassium Chloride Emma ER 20 MEQ Oral Tablet Extended Release TAKE 1 TABLET BY MOUTH EVERY [id number] Tablet 0 Digoxin 125 MCG Oral Tablet (Lanoxin) TAKE [...] before May 19, 2023. 1 Each 0 No current facility-administered medications for this visit. Physical Exam: BP Readings from Last 3 Encounters: 06/06/23 128/60 05/15/23 144/68 05/13/23 136/64 { Wt Readings from Last 3 Encounters: 05/03/23 90.7 kg (200 lb) 04/28/23 93.4 kg (206 lb) 02/01/23 92.5 kg (204 lb) Vital signs: Blood pressure 128/60, pulse 74, SpO2 95 %. General: alert and no distress Neuro: alert & oriented x 1 with limited speech Heart: no murmur and irregularly irregular Lungs: no chest wall tenderness, lungs clear to auscultation, no wheeze, no rales, no rhonchi Abdomen: abdomen soft, non-tender, normal bowel sounds, and no rebound or guarding Ext: Normal extremities without edema Recent Results: Component Latest Ref Rng 05/15/2023 05/17/2023 BUN 6 - 20 mg/dL 29 (H) Creatinine 0.6 - 1.2 mg/dL 1.6 (H) Estimated Glomerular Filtration Rate >=60 mL/min 43 (L) Sodium 135 - 146 mmol/L 141 Potassium 3.5 - 5.1 mmol/L 4.8 Chloride 98 - 107 mmol/L 103 CO2 22 - 32 mmol/L 22 Anion Gap 7 - 15 mmol/L 16 (H) Glucose 70 - 120 mg/dL 132 (H) Albumin 3.8 - 5.0 g/dL 3.0 (L) AST 10 - 50 U/L 37 Alkaline Phosphatase 35 - 130 U/L 47 Bilirubin, Total <=1.2 mg/dL 0.3 Calcium 8.4 - 10.2 mg/dL 9.3 Protein 6.0 - 8.3 g/dL 8.2 ALT 10 - 50 U/L 11 WBC 4.00 - 10.80 K/uL 4.39 Neutrophils % 40.0 - 75.0 % 46.0 Lymphocytes % 18.0 - 42.0 % 28.7 Monocytes % 1.0 - 11.0 % 16.6 (H) Eosinophils % 0.0 - 6.0 % 6.8 (H) Basophils % 0.0 - 2.0 % 0.5 Immature Granulocytes % 0.0 - 2.0 % 1.4 Absolute Neutrophils 1.80 - 7.70 K/uL 2.02 Absolute Lymphocytes 1.00 - 4.80 K/ul 1.26 Absolute Monocytes 0.00 - 1.10 K/uL 0.73 Absolute Eosinophils 0.00 - 0.70 K/uL 0.30 Absolute Basophils 0.00 - 0.20 K/uL 0.02 Absolute Immature Granulocytes 0.00 - 0.20 K/uL 0.06 WBC 4.00 - 10.80 K/uL 4.08 4.39 RBC 4.50 - 5.25 M/uL 2.31 2.23 HGB 14.0 - 16.8 g/dL 7.5 (L) 7.1 (L) HCT 40.0 - 48.4 % 25.5 (L) 24.1 (L) MCV 82.0 - 99.5 fL 110.4 108.1 MCH 27.0 - 34.0 pg 32.5 31.8 MCHC 32.0 - 36.0 g/dL 29.4 29.5 RDW 11.5 - 15.5 % 17.8 17.5 PLT 140 - 400 K/uL 122 (L) 241 MPV 6.6 - 11.1 fL 11.8 9.6 nRBCs <=0 /100 WBCs 0 1 (H) Component Latest Ref Rn 05/31/2023 BUN 6 - 20 mg/dL Creatinine 0.6 - 1.2 mg/dL Estimated Glomerular Filtration Rate >=60 mL/min Sodium 135 - 146 mmol/L Potassium 3.5 - 5.1 mmol/L Chloride 98 - 107 mmol/L CO2 22 - 32 mmol/L Anion Gap 7 - 15 mmol/L Glucose 70 - 120 mg/dL Albumin 3.8 - 5.0 g/dL AST 10 - 50 U/L Alkaline Phosphatase 35 - 130 U/L Bilirubin, Total <=1.2 mg/dL Calcium 8.4 - 10.2 mg/dL Protein 6.0 - 8.3 g/dL ALT 10 - 50 U/L WBC 4.00 - 10.80 K/uL 4.75 Neutrophils % 40.0 - 75.0 % 42.9 Lymphocytes % 18.0 - 42.0 % 36.4 Monocytes % 1.0 - 11.0 % 10.7 Eosinophils % 0.0 - 6.0 % 8.6 (H) Basophils % 0.0 - 2.0 % 0.8 Immature Granulocytes % 0.0 - 2.0 % 0.6 Absolute Neutrophils 1.80 - 7.70 K/uL 2.03 Absolute Lymphocytes 1.00 - 4.80 K/ul 1.73 Absolute Monocytes 0.00 - 1.10 K/uL 0.51 Absolute Eosinophils 0.00 - 0.70 K/uL 0.41 Absolute Basophils 0.00 - 0.20 K/uL 0.04 Absolute Immature Granulocytes 0.00 - 0.20 K/uL 0.03 WBC 4.00 - 10.80 K/uL 4.75 RBC 4.50 - 5.25 M/uL 2.46 HGB 14.0 - 16.8 g/dL 7.9 (L) HCT 40.0 - 48.4 % 26.5 (L) MCV 82.0 - 99.5 fL 107.7 MCH 27.0 - 34.0 pg 32.1 MCHC 32.0 - 36.0 g/dL 29.8 RDW 11.5 - 15.5 % 18.8 PLT 140 - 400 K/uL 278 MPV 6.6 - 11.1 fL 9.7 nRBCs <=0 /100 WBCs 0 (H) High (L) Low See top of note for assessment/plan Scheduled appointments in the next 60 days: Future Appointments-next 60 days Date/Time Provider Specialty Dept Phone 06/16/2023 8:50 AM [facility] Processing [phone] 06/22/2023 5:30 PM Lila Brownlee RN [facility] [phone] 06/30/2023 8:50 AM [facility] Processing [phone] 07/11/2023 1:00 PM (Arrive by 12:45 PM) [facility] Cardiology [phone] 07/14/2023 8:50 AM [facility] Processing [phone] 07/17/2023 3:00 PM (Arrive by 2:45 PM) Pilar Joseph PA-C Dermatology [phone] 07/26/2023 3:00 PM (Arrive by 2:45 PM) Zenobia Lyon MD Family Medicine [phone] 07/28/2023 8:50 AM [facility] Processing [phone] 08/11/2023 8:50 AM [facility] Processing [phone] 08/25/2023 8:50 AM [facility] Processing [phone] 08/29/2023 3:30 PM (Arrive by 3:15 PM) Chris Choudhury PA-C Cardiology [phone] 09/08/2023 8:50 AM [facility] Processing [phone] 09/22/2023 8:50 AM [facility] Processing [phone] Brennen Kay PA-C [facility], [address] [place] [address] documented in this encounter Miscellaneous Notes * ACP (Advance Care Planning) - Brennen Kay PA-C - 06/06/2023 11:40 AM EDT Images from the original note were not included. Patient-centered Communication 06/06/2023 The patient/surrogate voluntarily agreed to participate in advance care planning discussion. They were advised that this is a separate service which may incur out of pocket cost in the form of copayment and/or deductibles. Location: Home Individual(s) present for conversation: Patient, Spouse, Son(s), and Daughter(s) Decisions Synopsis Smart[employer] Most Recent Value Past [...] vegetable" (define below) 05/30/2022 Source: Content from [employer] Program Aligning Care With What Matters Most: [...] maintain quality of life Source: Content from [employer] Program 60 minutes spent in direct [id number] discussion today, Brennen Kay PA-C documented in this encounter Plan of Treatment Upcoming Encounters Date Type Specialty Care Team Description 06/16/2023 Laboratory Laboratory Processing [facility] [address] [facility] [place] [address] 06/22/2023 Home Visit [facility] Lila Brownlee, RN [address] [place] [address] 06/30/2023 Laboratory Laboratory Processing [facility] [address] [place] [address] 07/11/2023 Cardiac Studies Cardiology [facility] [address] [place] [address] 07/14/2023 Laboratory Laboratory Processing [facility] [address] [place] [address] 07/17/2023 Office Visit Dermatology Pilar Joseph PA-C [address] [place] [address] [place] [address] 07/26/2023 Office Visit Family Medicine Zenobia Lyon MD [address] [place] [address] [place] [address] 07/28/2023 Laboratory Laboratory Processing [facility] [address] [place] [address] 08/11/2023 Laboratory Laboratory Processing [facility] [address] [place] [address] 08/25/2023 Laboratory Laboratory Processing [facility] Draw [address] [place] [address] 08/29/2023 Office Visit Cardiology Chris Choudhury PA-C [address] [place] [address] 09/08/2023 Laboratory Laboratory Processing [facility] [address] [place] [address] 09/22/2023 Laboratory Laboratory Processing [facility] Mobile Home Draw [address] [place] [address] Scheduled Procedures Name Priority Associated Diagnoses Date/Ti me COLONOSCOPY FLEXIBLE PROXIMA L DIAGNOSTIC Recall History of colonic polyps Health Maintenance Due Date Last Done Comments Alpha-1 Antitrypsin 1953 DIABETES-EYE EXAM 10/28/2022 10/28/2021, , 10/30/2019, Additional history exists DTaP,Tdap,and Td Vaccines (2 - Td or Tdap) 01/11/2023 01/11/2013, 04/01/2003, 04/01/2003 DIABETES-FOOT EXAM 01/14/2023 01/14/2022, 0 12/24/2020, 03/09/2020, Additional history exists Influenza Vaccine (FLU shot) (#1) 2023 07/22/2022, 06/17/2021, 06/17/2021, Additional history exists HbA1c 07/27/2023 01/25/2023, 12/0 03/2022, 01/14/2022, Additional history exists O2 ASSESSMENT COMPLETED IN PAST YEAR FOR COPD 09/06/2023 09/06/2022 CKD PHOS USE SMARTSET 41333 09/07/2023 12/0 04/2022, 09/05/2022, 01/14/2022, Additional history exists Depression Screening, Annual for Pts 12 and Over 01/25/2024 01/24/2023 DIG LEVEL FOR MEDICATION MONITORING YEARLY 01/26/2024 01/25/2023, 04/17/2021, 03/09/2020, Additional history exists Albumin/Creatinine Ratio 01/27/2024 023, 01/14/2022, 08/14/2017, Additional history exists CKD HGB USE SMARTSET 00172 05/31/202405/31, 05/31/2023, 05/17/2023, Additional history exists COLONOSCOPY-EVERY [...] encounter Medical Devices Implanted Type Area Home Based Assistant Device Identifier Shelf Expiration Date Model / Serial / Lot Screw T2 Alpha Lock 5x47.5mm - [id number] Implanted:Qty: 1 on 09/06/2022 by Sean Silva MD at [facility] Left: Leg Upper RICHELLE : TRAUMA 06/01/2032 [id number] / / [id number] documented as of this encounter Visit Diagnoses Diagnosis Palliative care encounter- Primary Encounter for palliative care Advanced care planning/counseling discussion Other specified counseling Multiple myeloma not having achieved remission (HCC) Multiple myeloma, without mention of having achieved remission 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) documented in this encounter Advance Directives Documents on File Type Date Recorded Patient [employer] POLST 10/17/2022 [place] [facility] POLST 09/10/2022 [place] [facility] Latest Code Status on [...] Agen t (per Health Care Power of Tube Carrier document) Reji Tello Dotts Adult Child First Alterna te Health Care Agent (per Health Care Power of Tube Carrier document) Bowen Tello Adult Child First Alternate Health Care Agent (per Health Care Power of Tube Carrier document) Care Teams Masking Machine Operator Relationship Specialty Start Date End Date Zenobia Lyon MD [address] [place] [address] [place] [phone] PCP - General Family Medicine 05/22/23 documented as of this encounter
--- OUTSIDE RECORDS SUMMARY | 2023-08-22 03:51 | External Medical Summary | Summary of Care ---
Author Name Unknown Organization [facility] Address [address] [place] [address] Phone [phone] Care Team Providers Care Electrical Research Engineer Name Role Phone Zenobia Lyon MD Primary Care Provide r Reason for Visit * Reason Onset Date Comments [facility]: Maintenance 06/01/2023 Encounter Details Date Type Department Care Team Description 06/01/2023 Scheduled Telephone [facility], [facility] [address] [place] [address] Coordinator, [facility] [address] [place] [address] Allergies Active Allergy Reactions Severity Noted Date Comments James Inhibitors 09/10/2002 cough on prinivil Hydrocodone 09/05/2022 Family states AMS change when taken Prednisone 05/26/2011 Blisters in throat Sulfa Antibiotics 03/19/2001 dysurea documented as of this encounter (statuses as of 06/01/2023) Medications Medication Sig Dispensed Refills Start Date [...] the morning. 90 Tablet 3 05/20/2022 Active Methenamine Hippurate 1 GM Oral Tablet Take 1 Tablet by mouth in the morning and 1 Tablet before bedtime. 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 0 09/16/2022 Active Acetaminophen 500 MG Oral TabletIndications:Ca ncer related pain Take 2 Tablets by mouth 2 times a day with morning and evening meals. 100 Tablet 0 10/28/2022 Active Clopidogrel Bisulfate 75 MG Oral Tablet (pLAVix)Indications: Atherosclerosis of [place] coronary artery of [place] heart without angina pectoris TAKE ONE TABLET BY MOUTH IN THE MORNING 90 Tablet 3 12/23/2022 Active Furosemide 40 MG Oral Tablet (Lasix) Take 1 Tablet by mouth in the morning. 100 Tablet 3 02/23/2023 Active Potassium Chloride Emma ER 20 MEQ Oral Tablet Extended ReleaseIndications:H ypokalemia TAKE 1 TABLET BY MOUTH EVERY MORNING 90 Tablet 0 02/25/2023 Active Digoxin 125 MCG Oral Tablet (Lanoxin) [...] 19, 2023. 1 Each 0 05/19/2023 Active documented as of this encounter (statuses as of 06/01/2023) Active Problems Patient Care Coordination No te [...] CORONARY ATHEROSCLEROSIS OF UNSPECIFIED TYPE OF VESSEL, BISHOP PAIUTE OR GRAFT Last Assessment & Plan: Stable. 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 Coli [...] glenn ek & Lt. leg ; Rt. advent 07/0207/18/2002 07/15/2015 Dyslipidemia, goal to be determined [...] as of this encounter (statuses as of 06/01/2023) Immunizations Name Administration Dates Next Due COVID-19 [...] Telephone Encounter - Carly Cano RN - 06/01/2023 12:05 PM EDT Images from the original note were not included. [facility] Telephonic Nurse Follow-Up Call [facility] Subprogram: Primary Care at Home Follow Up Call Type: 48 hour follow up Acute issue requiring follow-up call: Other: fatigue, weakness Objective: 05/15/2023 10:34 AM 05/13/2023 10:18 AM 05/12/2023 11:40 AM 05/03/2023 10:26 AM 04/28/2023 12:57 PM VITALS ACROSS ENCOUNTERS BP 144/68 136/64 142/62 144/64 130/60 Pulse 68 70 88 80 84 Weight 90.7 kg 93.4 kg BMI 27.89 kg/m2 28.73 kg/m2 Lab Results Component Value Date BLOOD, URINE - [facility] Negative 05/12/2023 PROTEIN - [facility] 8.2 05/15/2023 PROTEIN, URINE - [facility] 30 (A) 05/12/2023 ESTERASE, URINE - [facility] Negative 05/12/2023 WBC AUTO - [facility] 4.75 05/31/2023 WBC, URINE - [facility] 0-2 05/12/2023 NITRITE, URINE - [facility] Negative 05/12/2023 Lab Results Component Value Date WBC AUTO - [facility] 4.75 05/31/2023 HGB - [facility] 7.9 (L) 05/31/2023 PLATELET AUTO - [facility] 278 05/31/2023 Lab Results Component Value Date SODIUM - [facility] 141 05/15/2023 POTASSIUM - [facility] 4.8 05/15/2023 CO2 - [facility] 22 05/15/2023 CREATININE - [facility] 1.6 (H) 05/15/2023 ESTIMATED GLOMERULAR FILTRATION RATE - [facility] 43 (L) 05/15/2023 ALBUMIN - [facility] 3.0 (L) 05/15/2023 AST - [facility] 37 05/15/2023 ALT - [facility] 11 05/15/2023 ALKALINE PHOSPHATASE - [facility] 47 05/15/2023 No results found for: PRO BNP, LEFT VENTRICULAR EJECTION FRACTION Remote Patient Monitoring: NONE Oxygen Needs: NO supplemental oxygen needs identified DME Needs: NO DME needs identified Medications: No medication or dose adjustments made during acute episode Subjective: Condition Status: No change in symptoms Current Concerns: Called and spoke with /Remedios she stated her is a little " shaky " today. SOB is at baseline, no worse. He did go to an eye doctor appointment this morning. He is eating and drinking well, currently sitting on the porch. asked if blood work results are back from yesterday, informed her that they are and I will call her back with any recommendations from providers. Disposition: Routed to [facility] and/or [facility] Care Team for further advice Future Visits Scheduled: Future Appointments-next 60 days Date/Time Provider Specialty Dept Phone 06/06/2023 10:00 AM Brennen Kay PA-C [facility] [phone] 06/08/2023 12:30 PM Lila Brownlee RN [facility] [phone] 06/16/2023 8:50 AM [facility] Laboratory Processing [phone] 06/30/2023 8:50 AM [facility] Laboratory Processing [phone] 07/11/2023 1:00 PM (Arrive by 12:45 PM) [facility] [phone] 07/14/2023 8:50 AM [facility] Laboratory Processing [phone] 07/17/2023 3:00 PM (Arrive by 2:45 PM) Pilar Joseph PA-C Dermatology [phone] 07/26/2023 3:00 PM (Arrive by 2:45 PM) Zenobia Lyon MD Family Medicine [phone] 07/28/2023 8:50 AM [facility] Laboratory Processing [phone] 08/11/2023 8:50 AM [facility] Laboratory Processing [phone] 08/25/2023 8:50 AM [facility] Laboratory Processing [phone] 08/29/2023 3:30 PM (Arrive by 3:15 PM) Chris Choudhury PA-C Cardiology [phone] 09/08/2023 8:50 AM [facility] Laboratory Processing [phone] 09/22/2023 8:50 AM [facility] Laboratory Processing [phone] Carly Cano RN Processing Tech [facility] documented in this encounter Plan of Treatment Upcoming Encounters Date Type Specialty Care Team Description 06/06/2023 Home Visit [facility] Brennen Kay PA-C [address] [address] 06/08/2023 Home Visit [facility] Lila Brownlee, RN [address] [place] [address] 06/16/2023 Laboratory Laboratory Processing [facility] [address] [place] [address] 06/30/2023 Laboratory Laboratory Processing [facility] [address] [place] [address] 07/11/2023 Cardiac Studies Cardiology [facility] [address] [place] [address] 07/14/2023 Laboratory Laboratory Processing [facility] Draw [address] [place] [address] 07/17/2023 Office Visit Dermatology Pilar Joseph PA-C [address] [place] [address] [place] [address] 07/26/2023 Office Visit Family Medicine Zenobia Lyon MD [address] [place] [address] [place] [address] 07/28/2023 Laboratory Laboratory Processing [facility] [address] [place] [address] 08/11/2023 Laboratory Laboratory Processing [facility] [address] [place] [address] 08/25/2023 Laboratory Laboratory Processing [facility] Mobile Home Draw [address] [place] [address] 08/29/2023 Office Visit Cardiology Chris Choudhury PA-C [address] [place] [address] 09/08/2023 Laboratory Laboratory Processing [facility] Mobile Home Draw [address] [place] [address] 09/22/2023 Laboratory Laboratory Processing [facility] Mobile Home Draw [address] [place] [address] Scheduled Procedures Name Priority Associated Diagnoses Date/Ti [...] COPD 09/06/2023 09/06/2022 CKD PHOS USE SMARTSET 83867 09/07/2023 12/0 04/2022, 09/05/2022, 01/14/2022, Additional history exists Depression Screening, Annual for Pts 12 and Over 01/25/2024 01/24/2023 DIG LEVEL FOR MEDICATION MONITORING YEARLY 01/26/2024 01/25/2023, 04/17/2021, 03/09/2020, Additional history exists Albumin/Creatinine Ratio 01/27/2024 023, 01/14/2022, 08/14/2017, Additional history exists CKD HGB USE SMARTSET 32230 05/31/202405/31, 05/31/2023, 05/17/2023, Additional history exists COLONOSCOPY-EVERY [...] this encounter Medical Devices Implanted Type Area Tour Leader Device Identifier Shelf Expiration Date Model / Serial / Lot Screw T2 Alpha Lock 5x47.5mm - [id number] Implanted:Qty: 1 on 09/06/2022 by Sean Silva MD at [facility] Left: Leg Upper RICHELLE : TRAUMA 06/01/2032 [id number] / / [id number] documented as of this encounter Advance Directives Documents on File Type Date Recorded Patient General Expeditor Expl anation POLST 10/17/2022 [place] DERS [...] Agen t (per Health Care Power of Sub Assembly Team Worker document) Reji Omer Dotts Adult Child First Alterna te Health Care Agent (per Health Care Power of Sub Assembly Team Worker document) Bowen Tello Adult Child First Alternate Health Care Agent (per Health Care Power of Sub Assembly Team Worker document) Care Teams Electrical Research Engineer Relationship Specialty Start Date End Date Zenobia Lyon MD [address] [place] [address] [place] [address] PCP - General Family Medicine 05/22/23 documented as of this encounter
--- OUTSIDE RECORDS SUMMARY | 2023-08-22 03:51 | External Medical Summary | Summary of Care ---
Author Name Unknown Organization [facility] Address [address] [place] [place] [facility] [place] [address] Phone [phone] Care Team Providers Care Sas Etl Developer Name Role Phone Zenobia Lyon MD Primary Care Provide r Reason for Visit * Reason Onset Date Comments [facility]: Maintenance 06/01/2023 Encounter Details Date Type Department Care Team Description 06/01/2023 Scheduled Telephone [facility], [facility] [address] [place] [address] Coordinator, [facility] [address] [place] [address] Allergies Active Allergy Reactions Severity Noted Date [...] artery of jena heart without angina pectoris TAKE ONE TABLET [...] infection without hematuria 202101/24/2023 Overview: Xavier to [facility] 04/20-04/29 [...] Telephone Encounter - Samson Conway PA-C - 06/01/2023 12:48 PM EDT [facility] Remote Medical Command Phone Encounter Thank you for your assistance in the care of this patient today. Persistently low GFR follow-up stable the April, stable anemia Recommendations: Continue to monitor This note was prepared with the help of fluency and if there is any mis-spelled words , sentences or something which doesn't represent the content of the subject that could be technical error and please refer to the author for clarification. * Telephone Encounter - Carly Cano RN - 06/01/2023 12:05 PM EDT Images from the original note were not included. [facility] Telephonic Nurse Follow-Up Call [facility] Subprogram: Primary Care at Home Follow Up [...] any recommendations from providers. Disposition: Routed to [facility] and/or [facility] Care Team for further advice Future Visits Scheduled: Future Appointments-next 60 days Date/Time Provider Specialty Dept Phone 06/06/2023 10:00 AM Brennen Kay PA-C [facility] [phone] 06/08/2023 12:30 PM Lila Brownlee RN [facility] [phone] 06/16/2023 8:50 AM [facility] Laboratory Processing [phone] 06/30/2023 8:50 AM [facility] Draw [facility] Laboratory Processing [phone] 07/11/2023 1:00 PM (Arrive by 12:45 PM) [facility] Cardiology [phone] 07/14/2023 8:50 AM [facility] Draw [facility] Laboratory Processing [phone] 07/17/2023 3:00 PM (Arrive by 2:45 PM) Pilar Joseph PA-C Dermatology [phone] 07/26/2023 3:00 PM (Arrive by 2:45 PM) Zenobia Lyon MD Family Medicine [phone] 07/28/2023 8:50 AM [facility] Draw [facility] Laboratory Processing [phone] 08/11/2023 8:50 AM [facility] Draw [facility] Laboratory Processing [phone] 08/25/2023 8:50 AM [facility] Draw [facility] Laboratory Processing [phone] 08/29/2023 3:30 PM (Arrive by 3:15 PM) Chris Choudhury PA-C Cardiology [phone] 09/08/2023 8:50 AM [facility] Draw [facility] Laboratory Processing [phone] 09/22/2023 8:50 AM [facility] Draw [facility] Laboratory Processing [phone] Carly Cano RN Professor Of Radiology [facility] documented in this encounter Plan of Treatment Upcoming Encounters Date Type Specialty Care Team Description 06/06/2023 Home Visit [facility] Brennen Kay PA-C [address] [place] [address] 06/08/2023 Home Visit [facility] Lila Brownlee, SANKET [address] [place] [address] 06/16/2023 Laboratory Laboratory Processing [facility] Draw [address] [place] [address] 06/30/2023 Laboratory Laboratory Processing [facility] Draw [address] [place] [address] 07/11/2023 Cardiac Studies Cardiology [facility] [address] [place] [address] 07/14/2023 Laboratory Laboratory Processing [facility] Draw [address] [place] [address] 07/17/2023 Office Visit Dermatology Pilar Joseph PA-C [address] [place] [address] [place] [address] 07/26/2023 Office Visit Family Medicine Zenobia Lyon MD [address] [place] [address] [place] [address] 07/28/2023 Laboratory Laboratory Processing [facility], [facility] [address] [place] [address] 08/11/2023 Laboratory Laboratory Processing [facility] [address] [place] [address] 08/25/2023 Laboratory Laboratory Processing [facility], [facility] Draw [address] [place] [address] 08/29/2023 Office Visit Cardiology Chris Choudhury PA-C [address] [place] [address] 09/08/2023 Laboratory Laboratory Processing [facility], [facility] Mobile Home Draw [address] [place] [address] 09/22/2023 Laboratory Laboratory Processing [facility], [facility] Draw [address] [place], [place] [address] Scheduled Procedures Name Priority Associated Diagnoses Date/Ti [...] COPD 09/06/2023 09/06/2022 CKD PHOS USE SMARTSET 58801 09/07/202304/2022, 09/05/2022, 01/14/2022, Additional history exists Depression Screening, Annual for Pts 12 and Over 01/25/2024 01/24/2023 DIG LEVEL FOR MEDICATION MONITORING YEARLY 01/26/2024 01/25/2023, 04/17/2021, 03/09/2020, Additional history exists Albumin/Creatinine Ratio 01/27/2024 023, 01/14/2022, 08/14/2017, Additional history exists CKD HGB USE SMARTSET 46226 05/31/202405/31, 05/31/2023, 05/17/2023, Additional history exists COLONOSCOPY-EVERY [...] encounter Medical Devices Implanted Type Area Production Control Supervisor Device Identifier Shelf Expiration Date Model / Serial / Lot Screw T2 Alpha Lock 5x47.5mm - [id number] Implanted:Qty: 1 on 09/06/2022 by Sena Silva MD at [facility] Left: Leg Upper RICHELLE : TRAUMA 06/01/2032 [id number] / / [id number] documented as of this encounter Advance Directives Documents on File Type Date Recorded Patient Theater Teacher Expl anation POLST 10/17/2022 [place] OR DERS [...] Agen t (per Health Care Power of Wound Specialist document) Reji Tello Dotts Adult Child First Alterna te Health Care Agent (per Health Care Power of Wound Specialist document) Bowen Tello Adult Child First Alternate Health Care Agent (per Health Care Power of Wound Specialist document) Care Teams Sas Etl Developer Relationship Specialty Start Date End Date Zenobia Lyon MD [address] [place] [address] [place] [address] PCP - General Family Medicine 05/22/23 documented as of this encounter
--- OUTSIDE RECORDS SUMMARY | 2023-08-22 03:51 | External Medical Summary | Summary of Care ---
Author Name Unknown Organization [facility] Address [address] [place] [address] Phone [phone] Care Team Providers Care Vacuum Plastic Forming Machine Operator Name Role Phone Zenobia Lyon MD Primary Care Provide r Encounter Details Date Type Department Care Team Description 05/31/2023 Telephone Family [address] [address] Zenobia Lyon MD [address] [place] [address] [place] [address] Allergies Active Allergy Reactions Severity Noted Date Comments James Inhibitors 09/10/2002 cough on prinivil Hydrocodone 09/05/2022 Family states AMS change when taken Prednisone 05/26/2011 Blisters in throat Sulfa Antibiotics 03/19/2001 dysurea documented as of this encounter (statuses as of 05/31/2023) Medications Medication Sig Dispensed Refills Start Date [...] 75 MG Oral Tablet (pLAVix)Indications: Atherosclerosis of [place] coronary artery of [place] heart without angina pectoris TAKE ONE [...] as of this encounter (statuses as of 05/31/2023) Active Problems Patient Care Coordination No te [...] CORONARY ATHEROSCLEROSIS OF UNSPECIFIED TYPE OF VESSEL, METLAKATLA OR GRAFT Last Assessment & Plan: Stable. 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 leg ; Rt. christian 07/0207/18/2002 07/15/2015 Dyslipidemia, goal to be determined [...] as of this encounter (statuses as of 05/31/2023) Immunizations Name Administration Dates Next Due COVID-19 mRNA, LNP-s, No Pre serve, 2-Dose Series (Moderna) 08/24/2021,12/07/2020,11/09/2020 Covid-19, Mrna, Lnp-s, Pf, B ivalent, 30 Mcg, IM, 12 yrs and above (Red Blue Voice) 08/29/2022 Pneumococcal Conjugate Vacc, 13 Valent (Prevnar) [...] encounter Miscellaneous Notes * Telephone Encounter - Zenobia Lyon MD - 05/31/2023 4:46 PM EDT Spoke to pt's Daughter - pt was dx with dementia 3 years ago ---- was on medication in the past ---- pt has difficulty with short term memory ---- sometimes forget dates - pt also has b/l hearing loss & wears hearing aid - pt needs help with taking medication, cooking and paying bills They need a letter stating that due to pt's hearing loss and dementia it is okay for insurance personnel to speak to Pt's (she is the POA) Letter sent documented in this encounter Plan of Treatment Upcoming Encounters Date Type Specialty Care Team Description 06/01/2023 Scheduled Telephone [facility], [facility] [address] [place] [address] 06/16/2023 Laboratory Laboratory Processing [facility] [address] [place] [address] 06/30/2023 Laboratory Laboratory Processing [facility] Draw [address] [place] [address] 07/11/2023 Cardiac Studies Cardiology [facility] [address] [place] [address] 07/14/2023 Laboratory Laboratory Processing [facility] Draw [address] [place] [address] 07/17/2023 Office Visit Dermatology Pilar Joseph PA-C [address] [place] [address] [place] [address] 07/26/2023 Office Visit Family Medicine Zenobia Lyon MD [address] [place] [address] [place] [address] 07/28/2023 Laboratory Laboratory Processing [facility] Draw [address] [place] [address] 08/11/2023 Laboratory Laboratory Processing [facility] Draw [address] [place] [address] 08/25/2023 Laboratory Laboratory Processing [facility], [facility] Mobile Home Draw [address] [place] [address] 08/29/2023 Office Visit Cardiology Chris Choudhury PA-C [address] [place] [address] 09/08/[address] [facility] Mobile Home Draw [address] [place] [address] 09/22/[address] [facility] Mobile Home Draw [address] [place] [address] Scheduled Procedures Name Priority Associated Diagnoses Date/Ti [...] COPD 09/06/2023 09/06/2022 CKD PHOS USE SMARTSET 81654 09/07/2023 12/0 04/2022, 09/05/2022, 01/14/2022, Additional history exists Depression Screening, Annual for Pts 12 and Over 01/25/2024 01/24/2023 DIG LEVEL FOR MEDICATION MONITORING YEARLY 01/26/2024 01/25/2023, 04/17/2021, 03/09/2020, Additional history exists Albumin/Creatinine Ratio 01/27/2024 023, 01/14/2022, 08/14/2017, Additional history exists CKD HGB USE SMARTSET 95615 05/17/202405/17, 05/17/2023, 05/15/2023, Additional history exists COLONOSCOPY-EVERY 5 YRS AGES [...] this encounter Medical Devices Implanted Type Area Forest Botany Instructor Device Identifier Shelf Expiration Date Model / Serial / Lot Screw T2 Alpha Lock 5x47.5mm - [id number] Implanted:Qty: 1 on 09/06/2022 by Sean Silva MD at [place] [facility] Left: Leg Upper RICHELLE : TRAUMA 06/01/2032 [id number] / / [id number] documented as of this encounter Advance Directives Documents on File Type Date Recorded Patient Package Dye Stand Loader Expl anation POLST 10/17/2022 [place] [...] Agen t (per Health Care Power of Clinical Trial Associate document) Reji Tello Dotts Adult Child First Alterna te Health Care Agent (per Health Care Power of Clinical Trial Associate document) Bowen Tello Adult Child First Alternate Health Care Agent (per Health Care Power of Clinical Trial Associate document) Care Teams Vacuum Plastic Forming Machine Operator Relationship Specialty Start Date End Date Zenobia Lyon MD [address] [place] [address] [place] [address] PCP - General Family Medicine 05/22/23 documented as of this encounter
--- OUTSIDE RECORDS SUMMARY | 2023-08-22 03:52 | External Medical Summary ---
Author Name Unknown Address Unknown Organization K01:[facility] [place] [address] [facility] [place] [address] Laboratory Report Ordering Provider Test Date Status IVY ZAPIEN 05/31/2023 09:42:00 Final Observation Date Value Abnormality Reference (Units ) Status SYNC LEUKOCYTES IN BLOOD BY AUTOMATED COUNT 05/31/2023 09:42:00 4.75 4.00-10.80 (K/uL) Final Segs 05/31/2023 09:42:00 42.9 40.0-75.0 (%) Final Lymphs % 05/31/2023 09:42:00 36.4 18.0-42.0 (%) Final Monos 05/31/2023 09:42:00 10.7 1.0-11.0 (%) Final Eosinophils 05/31/2023 09:42:00 8.6 Above high normal 0.0-6.0 (%) Final Basos 05/31/2023 09:42:00 0.8 0.0-2.0 (%) Final Immature Granulocyte, Percent 05/31/2023 09:42:00 0.6 0.0-2.0 (%) Final Absolute Segs 05/31/2023 09:42:00 2.03 1.80-7.70 (K/uL) Final Lymphs, absolute 05/31/2023 09:42:00 1.73 1.00-4.80 (K/ul) Final Monos, Abs 05/31/2023 09:42:00 0.51 0.00-1.10 (K/uL) Final Eos, Abs 05/31/2023 09:42:00 0.41 0.00-0.70 (K/uL) Final Basos, Abs 05/31/2023 09:42:00 0.04 0.00-0.20 (K/uL) Final Immature Granulocytes, Number 05/31/2023 09:42:00 0.03 0.00-0.20 (K/uL) Final Performing Location [facility] [place] [address] [facility] [address]
--- OUTSIDE RECORDS SUMMARY | 2023-08-22 03:52 | External Medical Summary | Summary of Care ---
Author Name Unknown Organization [facility] Address [address] [place] [place] [place] [address] Phone [phone] Care Team Providers Care Fitness Sales Associate Name Role Phone Zenobia Lyon MD Primary Care Provide r Reason for Visit * Reason Onset Date Comments [facility]: Acute 05/29/2023 Encounter Details Date Type Department Care Team Description 05/29/2023 Telephone [facility], [facility] [address] [facility] THA HERNANDEZ [address] [facility], Nurse [facility] [address] [facility] THA HERNANDEZ [address] [facility]: Acute Allergies Active Allergy Reactions Severity Noted Date Comments James Inhibitors 09/10/2002 cough on prinivil Hydrocodone 09/05/2022 Family states AMS change when taken Prednisone 05/26/2011 Blisters in throat Sulfa Antibiotics 03/19/2001 dysurea documented as of this encounter (statuses as of 05/30/2023) Medications Medication Sig Dispensed Refills Start Date [...] 75 MG Oral Tablet (pLAVix)Indications: Atherosclerosis of [place] coronary artery of [place] heart without angina pectoris TAKE ONE TABLET [...] as of this encounter (statuses as of 05/30/2023) Active Problems Patient Care Coordination No te [...] CORONARY ATHEROSCLEROSIS OF UNSPECIFIED TYPE OF VESSEL, [place] OR GRAFT Last Assessment & Plan: Stable. 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 leg ; Rt. hoahaoism 07/0207/18/2002 07/15/2015 Dyslipidemia, goal to be determined [...] as of this encounter (statuses as of 05/30/2023) Immunizations Name Administration Dates Next Due COVID-19 [...] Telephone Encounter - Ami Black RN - 05/29/2023 2:46 PM EDT Call to [facility] to see if they can go out sooner that Monday. New order for CBC. They said they can go out Monday. Call to patient's to let her know that a CBC was ordered and Mobile Phlebotomy will be bout Monday to draw lab. Also, that our provider CC Dr Sykes due to no improving after transfusion. She is in agreement. Ami Black. RN [facility] customs import specialist [phone] * Addendum Note - Rupali Guerrier MD - 05/29/2023 2:37 PM EDTAddended by: RUPALI GUERRIER on: 05/29/2023 02:37 PM Modules accepted: Orders * Telephone Encounter - Rupali Guerrier MD - 05/29/2023 2:30 PM EDT I don't see a CBC since the most recent transfusion. Order placed. I'll also cc Dr. Sykes for his much appreciated input. I think an updated goals of care conversation may be necessary if he is no longer improving symptomatically with transfusion Rupali Guerrier MD, [facility], [place], FAAFP Ramp Attendant [facility] [place] [facility] Available on [facility]en [facility] * Telephone Encounter - Ami Black RN - 05/29/2023 2:06 PM EDT [facility] at Home customs import specialist Acute Call Date: 05/29/2023 Time: 2:06 PM Name: Marshall Tello Sr. : 1935 Caller: Remedios Relationship to HPI: Marshall Tello Sr. is a 88 year old male that ihis is calling [facility] Intake to report weakness/fatigue. Nursing Assessment: Patient calling because her is weak and tired. She has been like this for 2 weeks or so. All he does is sleep. She said he had a transfusion on 05/19 and has no improvement after the transfusion. thought that after the transfusion he would not be weak or sleep as much He is eating and drinking. He is afebrile and denies chills, pain, sob at baseline, having regular bowel movements and voiding. He is not complaining. He gets bi weekly blood work Scheduled for 06/02. Patient's chief complaint for this call: Other, describe Weakness/fatigue Pain Denies pain Baseline Assessment Able to performing ADLs at baseline (walking, daily tasks, etc.): Yes Chief Complaint is related to a chronic condition: Unknown Patient prescribed oxygen? Yes, 2L/min Patient has been ordered DME equipment (assistive devices, respiratory equipment, etc.): Yes Describe DME devices: oxygen Patient is using DME device as directed: Yes Medication Reconciliation: (See medication list) Received flu shot this season: Yes Taking medication as ordered: Yes Medications ordered/taking to treat reason for call: No Heart failure symptoms: No COPD exacerbation symptoms: No Reinforcement Education: Take all medications as ordered Drink fluids to stay hydrated Treatment/Plan: (need to report) Level of call: Non-Acute Recommended treatment plan: Phone calls 24/48 hrs Clinical advice given over the phone Routing to care team to review and make recommendations if warranted. Call back instructions provided to patient. documented in this encounter Plan of Treatment Upcoming Encounters Date Type Specialty Care Team Description 05/31/2023 Laboratory Laboratory Processing [facility] Mobile Home Draw [address] [place] [address] 05/31/2023 Scheduled Telephone [facility] Assembler Fluorescent Lights, [address] [address] 06/16/2023 Laboratory Laboratory Processing [facility] Mobile Home Draw [address] [place] [address] 06/30/2023 Laboratory Laboratory Processing [facility] Mobile Home Draw [address] [place] [address] 07/11/2023 Cardiac Studies Cardiology [facility] [address] [place] [address] 07/14/2023 Laboratory Laboratory Processing [facility] Mobile [facility] Draw [address] [place] [address] 07/17/2023 Office Visit Dermatology Pilar Joseph PA-C [address] [place] [address] [place] [address] 07/26/2023 Office Visit Family Medicine Zenobia Lyon MD [address] [place] [address] [place] [address] 07/28/2023 Laboratory Laboratory Processing [facility] Mobile Home Draw [address] [place] [address] 08/11/2023 Laboratory Laboratory Processing [facility] Mobile Home Draw [address] [place] [address] 08/25/2023 Laboratory Laboratory Processing [facility] Draw [address] [place] [address] 08/29/2023 Office Visit Cardiology Chris Choudhury PA-C [address] [place] [address] 09/08/2023 Laboratory Laboratory Processing [facility] Draw [address] [place] [address] 09/22/2023 Laboratory Laboratory Processing [facility] Home Draw [address] [place] [address] Scheduled Orders Name Type Priority Associated Diagnoses Orde r Schedule CBC WITH WBC DIFFERENTIAL Lab Routine Multiple myeloma not having achieved remission (HCC) Expected: 05/29/2023 (Approximate), Expires: 05/29/2024 Scheduled Procedures Name Priority Associated Diagnoses Date/Ti [...] COPD 09/06/2023 09/06/2022 CKD PHOS USE SMARTSET 80334 09/07/2023 12/0 04/2022, 09/05/2022, 01/14/2022, Additional history exists Depression Screening, Annual for Pts 12 and Over 01/25/2024 01/24/2023 DIG LEVEL FOR MEDICATION MONITORING YEARLY 01/26/2024 01/25/2023, 04/17/2021, 03/09/2020, Additional history exists Albumin/Creatinine Ratio 01/27/20242 023, 01/14/2022, 08/14/2017, Additional history exists CKD HGB USE SMARTSET 38954 05/17/202405/17, 05/17/2023, 05/15/2023, Additional history exists COLONOSCOPY-EVERY [...] this encounter Medical Devices Implanted Type Area Garment Alteration Examiner Device Identifier Shelf Expiration Date Model / Serial / Lot Screw T2 Alpha Lock 5x47.5mm - [id number] Implanted:Qty: 1 on 09/06/2022 by Sean Silva MD at [facility] Left: Leg Upper RICHELLE : TRAUMA 06/01/2032 [id number] / / [id number] documented as of this encounter Visit Diagnoses Diagnosis Multiple myeloma not having achieved remission (HCC)- Primary Multiple myeloma, without mention of having achieved remission documented in this encounter Advance Directives Documents on File Type Date Recorded Patient International Tax Manager Expl anation POLST 10/17/2022 [place] OR DERS FOR LIFE-SUSTAINING TREATMENT POLST 09/10/2022 [place] OR DERS FOR LIFE-SUSTAINING TREATMENT Latest [...] Agen t (per Health Care Power of Hand Trucker document) Reji Omer Neil Adult Child First Alterna te Health Care Agent (per Health Care Power of Hand Trucker document) Bowen Tello Adult Child First Alternate Health Care Agent (per Health Care Power of Hand Trucker document) Care Teams Fitness Sales Associate Relationship Specialty Start Date End Date Zenobia Lyon MD [address] [place] [address] [place] [address] PCP - General Family Medicine 05/22/23 documented as of this encounter
--- OUTSIDE RECORDS SUMMARY | 2023-08-22 03:52 | External Medical Summary ---
Author Name Unknown Address Unknown Organization K01:[facility] - [address] [place] [address] Laboratory Report Ordering Provider Test Date Status IVY ZAPIEN 05/31/2023 09:42:00 Final Observation Date Value Abnormality Reference (Units ) Status WBC, Total 05/31/2023 09:42:00 4.75 4.00-10.80 (K/uL) Final RBC 05/31/2023 09:42:00 2.46 4.50-5.25 (M/uL) Final Hemoglobin 05/31/2023 09:42:00 7.9 Below low normal 14.0-16.8 (g/dL) Final HCT 05/31/2023 09:42:00 26.5 Below low normal 40.0-48.4 (%) Final MCV 05/31/2023 09:42:00 107.7 82.0-99.5 (fL) Final MCH 05/31/2023 09:42:00 32.1 27.0-34.0 (pg) Final MCHC 05/31/2023 09:42:00 29.8 32.0-36.0 (g/dL) Final RDW 05/31/2023 09:42:00 18.8 11.5-15.5 (%) Final Platelets 05/31/2023 09:42:00 278 140-400 (K/uL) Final MPV 05/31/2023 09:42:00 9.7 6.6-11.1 (fL) Final Nucleated erythrocytes/100 leukocytes [Ratio] in Blood by Automated count 05/31/2023 09:42:00 0 <=0 (/100 WBCs) Final Performing Location [facility] - [address] [place] [address]
--- OUTSIDE RECORDS SUMMARY | 2023-08-22 03:52 | External Medical Summary | Summary of Care ---
Author Name Unknown Organization [facility] Address [address] [facility] [place] [address] Phone [phone] Care Team Providers Care Mate Fourth Name Role Phone Zenobia Lyon MD Primary Care Provide r Reason for Visit * Reason Onset Date Comments [facility]: Maintenance 05/30/2023 Encounter Details Date Type Department Care Team Description 05/30/2023 Scheduled Telephone [facility], [facility] [address] [place] [address] Coordinator, [facility] [address] [place] [address] Allergies Active Allergy Reactions Severity Noted Date [...] 75 MG Oral Tablet (pLAVix)Indications: Atherosclerosis of [place] coronary artery of [place] heart without angina pectoris TAKE ONE TABLET [...] CORONARY ATHEROSCLEROSIS OF UNSPECIFIED TYPE OF VESSEL, [place] OR GRAFT Last Assessment & Plan: Stable. [...] infection without hematuria 202101/24/2023 Overview: Xavier to [facility] 04/20-04/29 urosepsis multi drug resistant [...] glenn ek & Lt. leg ; Rt. mandaen 07/0207/18/2002 07/15/2015 Dyslipidemia, goal to be determined [...] Telephone Encounter - Ami Black RN - 05/30/2023 9:37 AM EDT [facility] Telephonic Nurse Follow-Up Call [facility] Subprogram: Primary Care at Home Follow Up Call Type: 24 hour follow up Acute issue requiring follow-up call: Other: Weakness/fatigue Objective: 05/15/2023 10:34 AM 05/13/2023 10:18 AM [...] [facility] Negative 05/12/2023 WBC AUTO - [facility] 4.39 05/17/2023 WBC, URINE - [facility] 0-2 05/12/2023 NITRITE, URINE - [facility] Negative 05/12/2023 Lab Results Component Value Date WBC AUTO - [facility] 4.39 05/17/2023 HGB - [facility] 7.1 (L) 05/17/2023 PLATELET AUTO - [facility] 241 05/17/2023 Lab Results Component Value Date SODIUM - [...] No change in symptoms Current Concerns: Spoke to Remedios this am. Still weak and tired. Sleeps a lot. Denies pain/discomfort. She said he is just tired. He is having blood draw tomorrow. She thinks it might be his blood count. She will just let him rest. If he get sob, he can apply is oxygen for comfort. Disposition: Follow up call scheduled for tomorrow with CHAIRMAN OF THE BOARD Station Inspector Future Visits Scheduled: Future Appointments-next 60 days Date/Time Provider Specialty Dept Phone 05/30/2023 2:[address] [facility] Station Inspector [facility] [phone] 05/31/2023 10:30 AM [facility] Laboratory Processing [phone] 05/31/2023 2:[address] [facility] Station Inspector [facility] [phone] 06/16/2023 8:50 AM [facility] Laboratory Processing [phone] 06/30/2023 8:50 AM [facility] Laboratory Processing [phone] 07/11/2023 1:00 PM (Arrive by 12:45 PM) [facility] Cardiology [phone] 07/14/2023 8:50 AM [facility] Laboratory Processing [phone] 07/17/2023 3:00 PM (Arrive by 2:45 PM) Pilar Joseph PA-C Dermatology [phone] 07/26/2023 3:00 PM (Arrive by 2:45 PM) Zenobia Lyon MD [facility] Medicine [phone] 07/28/2023 8:50 AM [facility] Draw [facility] Laboratory Processing [phone] 08/11/2023 8:50 AM [facility] Laboratory Processing [phone] 08/25/2023 8:50 AM [facility] Laboratory Processing [phone] 08/29/2023 3:30 PM (Arrive by 3:15 PM) Chris Choudhury PA-C Cardiology [phone] 09/08/2023 8:50 AM [facility] Laboratory Processing [phone] 09/22/2023 8:50 AM [facility] Laboratory Processing [phone] Routed to care team Ami Black RN documented in this encounter Plan of Treatment Upcoming Encounters Date Type Specialty Care Team Description 05/31/2023 Laboratory Laboratory Processing [facility] Home Draw [address] [place] [address] 05/31/2023 Scheduled Telephone [facility] Field Hockey And Lacrosse Coach, Shira Velázquez [facility] [address] [place] [address] 06/16/2023 Laboratory Laboratory Processing [facility] Mobile Home Draw [address] [place] [address] 06/30/2023 Laboratory Laboratory Processing [facility] Home Draw [address] [place] [address] 07/11/2023 Cardiac Studies Cardiology [facility] [address] [place] [address] 07/14/2023 Laboratory Laboratory Processing [facility] Home Draw [address] [place] [address] 07/17/2023 Office Visit Dermatology Pilar Joseph PA-C [address] [place] [address] [place] [address] 07/26/2023 Office Visit Family Medicine Zenobia Lyon MD [address] [place] [address] [place] [address] 07/28/2023 Laboratory Laboratory Processing [facility] Draw [address] [place] [address] 08/11/2023 Laboratory Laboratory Processing [facility] Draw [address] [place] [address] 08/25/2023 Laboratory Laboratory Processing [facility] Home Draw [address] [place] [address] 08/29/2023 Office Visit Cardiology Chris Choudhury PA-C [address] [place] [address] 09/08/2023 Laboratory Laboratory Processing [facility] Mobile Home Draw [address] [place] [address] 09/22/2023 Laboratory Laboratory Processing [facility] Mobile Home Draw [address] [place] [address] Scheduled Procedures Name Priority Associated Diagnoses Date/Ti [...] COPD 09/06/2023 09/06/2022 CKD PHOS USE SMARTSET 22431 09/07/2023 12/0 04/2022, 09/05/2022, 01/14/2022, Additional history exists Depression Screening, Annual for Pts 12 and Over 01/25/2024 01/24/2023 DIG LEVEL FOR MEDICATION MONITORING YEARLY 01/26/2024 01/25/2023, 04/17/2021, 03/09/2020, Additional history exists Albumin/Creatinine Ratio 01/27/2024 023, 01/14/2022, 08/14/2017, Additional history exists CKD HGB USE SMARTSET 77466 05/17/202405/17, 05/17/2023, 05/15/2023, Additional history exists COLONOSCOPY-EVERY [...] this encounter Medical Devices Implanted Type Area Marker Machine Device Identifier Shelf Expiration Date Model / Serial / Lot Screw T2 Alpha Lock 5x47.5mm - [id number] Implanted:Qty: 1 on 09/06/2022 by Sean Silva MD at [place] [facility] Left: Leg Upper RICHELLE : TRAUMA 06/01/2032 [id number] / / [id number] documented as of this encounter Advance Directives Documents on File Type Date Recorded Patient Actuary Expl anation POLST 10/17/2022 [place] OR DERS FOR LIFE-SUSTAINING TREATMENT POLST 09/10/2022 [place] OR DERS FOR LIFE-SUSTAINING TREATMENT Latest Code [...] Agen t (per Health Care Power of Registered Nurse Float Pool document) Reji Omer Dotts Adult Child First Alterna te Health Care Agent (per Health Care Power of Registered Nurse Float Pool document) Bowen Tello Adult Child First Alternate Health Care Agent (per Health Care Power of Registered Nurse Float Pool document) Care Teams Mate Fourth Relationship Specialty Start Date End Date Zenobia Lyon MD [address] [place] [address] [place] [address] PCP - General Family Medicine 05/22/23 documented as of this encounter
--- OUTSIDE RECORDS SUMMARY | 2023-08-22 03:52 | External Medical Summary | Summary of Care ---
Author Name Unknown Organization [facility] Address [address] [place] [place] [address] Phone [phone] Care Team Providers Care Garnett Feeder Name Role Phone Zenobia Lyon MD Primary Care Provide r Reason for Visit * Reason Onset Date Comments [facility]: Maintenance 05/30/2023 Encounter Details Date Type Department Care Team Description 05/30/2023 Scheduled Telephone [facility], [facility] [address] [place] [address] Coordinator, [facility] [address] [place] [address] Allergies Active Allergy Reactions Severity Noted Date [...] Oral Tablet (pLAVix)Indications: Atherosclerosis of [place] coronary artery of [place] heart without angina pectoris TAKE ONE TABLET [...] CORONARY ATHEROSCLEROSIS OF UNSPECIFIED TYPE OF VESSEL, [place] OR GRAFT Last Assessment & Plan: Stable. [...] without hematuria 202101/24/2023 Overview: Xavier to [facility] 04/20-04/29 urosepsis multi drug resistant [...] glenn ek & Lt. leg ; Rt. jewish 07/0207/18/2002 07/15/2015 Dyslipidemia, goal to be determined [...] [facility] Telephonic Nurse Follow-Up Call [facility] Subprogram: Primary Care at Home Follow [...] Follow up call scheduled for tomorrow with GENETICS NURSE Auto Body Painter Future Visits Scheduled: Future Appointments-next 60 days Date/Time Provider Specialty Dept Phone 05/30/2023 2:00 PM [facility] Auto Body Painter [facility] [phone] 05/31/2023 10:30 AM [facility] Laboratory Processing [phone] 05/31/2023 2:00 PM [facility] Auto Body Painter [facility] [phone] 06/16/2023 8:50 AM [facility] Laboratory Processing [phone] 06/30/2023 8:50 AM [facility] Laboratory Processing [phone] 07/11/2023 1:00 PM (Arrive by 12:45 PM) [facility] Cardiology [phone] 07/14/2023 8:50 AM [facility] Draw [facility] Laboratory Processing [phone] 07/17/2023 3:00 PM (Arrive by 2:45 PM) Pilar Joseph PA-C Dermatology [phone] 07/26/2023 3:00 PM (Arrive by 2:45 PM) Zenobia Lyon MD [facility] Medicine [phone] 07/28/2023 8:50 AM [facility] Laboratory Processing [phone] 08/11/2023 8:50 AM [facility] Laboratory Processing [phone] 08/25/2023 8:50 AM [facility] Processing [phone] 08/29/2023 3:30 PM (Arrive by 3:15 PM) Chris Choudhury PA-C Cardiology [phone] 09/08/2023 8:50 AM [facility] Processing [phone] 09/22/2023 8:50 AM [facility] Laboratory Processing [phone] Routed to care team Ami Black RN documented in this encounter Plan of Treatment Upcoming Encounters Date Type Specialty Care Team Description 05/31/2023 Laboratory Laboratory Processing [facility] Draw [address] [place] [address] 05/31/2023 Scheduled Telephone [facility] Director Law Enforcement, Shira Velázquez [facility] [address] [place] [address] 06/16/2023 Laboratory Laboratory Processing [facility] Draw [address] [place] [address] 06/30/2023 Laboratory Laboratory Processing [facility] Draw [address] [place] [address] 07/11/2023 Cardiac Studies Cardiology [facility] [address] [place] [address] 07/14/2023 Laboratory Laboratory Processing [facility] Home Draw [address] [place] [address] 07/17/2023 Office Visit Dermatology Pilar Joseph PA-C [address] [place] [address] [place] [address] 07/26/2023 Office Visit Family Medicine Zenobia Lyon MD [address] [place] [address] [place] [address] 07/28/2023 Laboratory Laboratory Processing [facility] Draw [address] [place] [address] 08/11/2023 Laboratory Laboratory Processing [facility] Draw [address] [place] [address] 08/25/2023 Laboratory Laboratory Processing [facility] Draw [address] [place] [address] 08/29/2023 Office Visit Cardiology Chris Choudhury PA-C [address] [place] [address] 09/08/2023 Laboratory Laboratory Processing [facility] Mobile Home Draw [address] [place] [address] 09/22/2023 Laboratory Laboratory Processing [facility] Mobile Home Draw [address] [place] [address] Scheduled Procedures Name Priority Associated Diagnoses Date/Ti [...] COPD 09/06/2023 09/06/2022 CKD PHOS USE SMARTSET 48021 09/07/2023 12/0 04/2022, 09/05/2022, 01/14/2022, Additional history exists Depression Screening, Annual for Pts 12 and Over 01/25/2024 01/24/2023 DIG LEVEL FOR MEDICATION MONITORING YEARLY 01/26/2024 01/25/2023, 04/17/2021, 03/09/2020, Additional history exists Albumin/Creatinine Ratio 01/27/2024 023, 01/14/2022, 08/14/2017, Additional history exists CKD HGB USE SMARTSET 62491 05/17/202405/17, 05/17/2023, 05/15/2023, Additional history exists COLONOSCOPY-EVERY [...] this encounter Medical Devices Implanted Type Area Building Energy Retrofit Technician Device Identifier Shelf Expiration Date Model / Serial / Lot Screw T2 Alpha Lock 5x47.5mm - [id number] Implanted:Qty: 1 on 09/06/2022 by Sean Silva MD at [place] [facility] [place] Left: Leg Upper RICHELLE : TRAUMA 06/01/2032 [id number] / / [id number] documented as of this encounter Advance Directives Documents on File Type Date Recorded Patient Sleeve Setter Expl anation POLST 10/17/2022 [place] OR DERS [...] Agen t (per Health Care Power of Product Test Engineer document) Reji Omer Dotts Adult Child First Alterna te Health Care Agent (per Health Care Power of Product Test Engineer document) Bowen Tello Adult Child First Alternate Health Care Agent (per Health Care Power of Product Test Engineer document) Care Teams Garnett Feeder Relationship Specialty Start Date End Date Zenobia Lyon MD [address] [place] [address] [place] [address] PCP - General Family Medicine 05/22/23 documented as of this encounter
--- OUTSIDE RECORDS SUMMARY | 2023-08-22 03:52 | External Medical Summary | Summary of Care ---
Author Name Unknown Organization [facility] Address [address] [facility] [place] [address] Phone [phone] Care Team Providers Care Texturing Machine Fixer Name Role Phone Zenobia Lyon MD Primary Care Provide r Reason for Visit * Reason Onset Date Comments [facility]: Maintenance 05/31/2023 Encounter Details Date Type Department Care Team Description 05/31/2023 Scheduled Telephone [facility], [facility] [address] [place] [address] Coordinator, [facility] [address] [place] [address] Allergies Active Allergy Reactions Severity Noted Date [...] Oral Tablet (pLAVix)Indications: Atherosclerosis of [place] coronary artery of [place] heart without angina pectoris TAKE ONE TABLET [...] CORONARY ATHEROSCLEROSIS OF UNSPECIFIED TYPE OF VESSEL, [place] OR GRAFT Last Assessment & Plan: Stable. [...] glenn ek & Lt. leg ; Rt. moravian 07/0207/18/2002 07/15/2015 Dyslipidemia, goal to be determined [...] encounter Miscellaneous Notes * Telephone Encounter - Annetta Beltran LPN - 05/31/2023 12:59 PM EDT [facility] Telephonic Nurse Follow-Up Call [facility] Subprogram: Primary Care at Home Follow Up Call Type: Routine follow up call / Status Check Acute issue requiring follow-up call: Other: fatigue/weakness Objective: 05/15/2023 10:34 AM 05/13/2023 10:18 AM [...] change in symptoms Current Concerns: Spoke to spouse still continue with weakness/fatigue denies SOB or pain, did have a good breakfast and acutally ate hasn't been eating much had labs drawn earlier today still in process will add follow up call regarding labs concerned may need blood transfusion if levels low will call with anyurgent issues Disposition: Follow up call scheduled for tomorrow with TAX RECORD CLERK Rapid Extractor Operator Future Visits Scheduled: Future Appointments-next 60 days Date/Time Provider Specialty Dept Phone 05/31[facility]2023 2[facility] [phone] 06/16/2023 8:50 AM [facility] [phone] 06/30/2023 8:50 AM [facility] [phone] 07/11/2023 1:00 PM (Arrive by 12:45 PM) [facility] Cardiology [phone] 07/14/2023 8:50 AM [facility] [phone] 07/17/2023 3:00 PM (Arrive by 2:45 PM) Pilar Joseph PA-C Dermatology [phone] 07/26/2023 3:00 PM (Arrive by 2:45 PM) Zenobia Lyon MD [facility] Medicine [phone] 07/28/2023 8:50 AM [facility] [phone] 08/11/2023 8:50 AM [facility] [phone] 08/25/2023 8:50 AM [facility] [phone] 08/29/2023 3:30 PM (Arrive by 3:15 PM) Chris Choudhury PA-C Cardiology [phone] 09/08/2023 8:50 AM [facility] [phone] 09/22/2023 8:50 AM [facility] [phone] Annetta Beltran LPN documented in this encounter Plan of Treatment Upcoming Encounters Date Type Specialty Care Team Description 06/01/2023 Scheduled Telephone [facility] Diesel Electrician, [facility] Eber Bal [address] [facility] [place] [address] 06/16/2023 Laboratory Laboratory Processing [facility], [facility] [address] [place] [address] 06/30/2023 Laboratory Laboratory Processing [facility], [facility] [address] [place] [address] 07/11/2023 Cardiac Studies Cardiology [facility] [address] [place] [address] 07/14/2023 Laboratory Laboratory Processing [facility], [facility] [address] [place] [address] 07/17/2023 Office Visit Dermatology Pilar Joseph PA-C [address] [place] [address] [place] [address] 07/26/2023 Office Visit Family Medicine Zenobia Lyon MD [address] [place] [address] [place] [address] 07/28/2023 Laboratory Laboratory Processing [facility], [facility] [address] [place] [address] 08/11/2023 Laboratory Laboratory Processing [facility], [facility] [address] [place] [address] 08/25/2023 Laboratory Laboratory Processing [facility], [facility] Draw [address] [place] [address] 08/29/2023 Office Visit Cardiology Chris Choudhury PA-C [address] [place] [address] 09/08/2023 Laboratory Laboratory Processing [facility], [facility] [address] [place] [address] 09/22/2023 Laboratory Laboratory Processing [facility], [facility] Draw [address] [place] [address] Scheduled Procedures Name Priority Associated Diagnoses Date/Ti [...] COPD 09/06/2023 09/06/2022 CKD PHOS USE SMARTSET 37972 09/07/2023 12/0 04/2022, 09/05/2022, 01/14/2022, Additional history exists Depression Screening, Annual for Pts 12 and Over 01/25/2024 01/24/2023 DIG LEVEL FOR MEDICATION MONITORING YEARLY 01/26/2024 01/25/2023, 04/17/2021, 03/09/2020, Additional history exists Albumin/Creatinine Ratio 01/27/2024 023, 01/14/2022, 08/14/2017, Additional history exists CKD HGB USE SMARTSET 81353 05/17/202405/17, 05/17/2023, 05/15/2023, Additional history exists COLONOSCOPY-EVERY [...] this encounter Medical Devices Implanted Type Area Ring Sorter Device Identifier Shelf Expiration Date Model / Serial / Lot Screw T2 Alpha Lock 5x47.5mm - [id number] Implanted:Qty: 1 on 09/06/2022 by Sean Silva MD at [facility] Left: Leg Upper RICHELLE : TRAUMA 06/01/2032 [id number] / / [id number] documented as of this encounter Advance Directives Documents on File Type Date Recorded Patient Diamond Powder Mixer Expl anation POLST 10/17/2022 [place] OR DERS [...] Agen t (per Health Care Power of Lacemaker document) Reji Leobardo Neil Adult Child First Alterna te Health Care Agent (per Health Care Power of Lacemaker document) Bowen Tello Adult Child First Alternate Health Care Agent (per Health Care Power of Lacemaker document) Care Teams Texturing Machine Fixer Relationship Specialty Start Date End Date Zenobia Lyon MD [address] [place] [address] [place] [phone] PCP - General Family Medicine 05/22/23 documented as of this encounter
--- OUTSIDE RECORDS SUMMARY | 2023-08-22 03:53 | External Medical Summary | Summary of Care ---
Author Name Unknown Organization [facility] Address [address] [place] [place] [address] Phone [phone] Care Team Providers Care Epic Director Name Role Phone Zenobia Lyon MD Primary Care Provide r Reason for Visit * Reason Onset Date Comments [facility]: Acute 05/29/2023 Encounter Details Date Type Department Care Team Description 05/29/2023 Telephone [facility], [facility] [address] [facility] [place] [address] [facility], Nurse [facility] [address] [facility] [place] [address] [facility]: Acute Allergies Active Allergy Reactions Severity Noted Date Comments James Inhibitors 09/10/2002 cough on prinivil Hydrocodone 09/05/2022 Family states AMS change when taken Prednisone 05/26/2011 Blisters in throat Sulfa Antibiotics 03/19/2001 dysurea documented as of this encounter (statuses as of 05/29/2023) Medications Medication Sig Dispensed Refills Start Date [...] 75 MG Oral Tablet (pLAVix)Indications: Atherosclerosis of [place] coronary artery of [place] heart without angina pectoris TAKE ONE TABLET [...] as of this encounter (statuses as of 05/29/2023) Active Problems Patient Care Coordination No te [...] CORONARY ATHEROSCLEROSIS OF UNSPECIFIED TYPE OF VESSEL, [place] OR GRAFT Last Assessment & Plan: Stable. 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 [...] glenn ek & Lt. leg ; Rt. islam 07/0207/18/2002 07/15/2015 Dyslipidemia, goal to be determined [...] as of this encounter (statuses as of 05/29/2023) Immunizations Name Administration Dates Next Due COVID-19 [...] encounter Miscellaneous Notes * Addendum Note - Rupali Guerrier MD [...] improving symptomatically with transfusion Rupali Guerrier MD, MSPC, DC, FAAFP Adult Health Clinical Nurse Specialist [facility] Available on scroll kit * Telephone Encounter - Ami Black RN - 05/29/2023 2:06 PM EDT [facility] at Home loss prevention supervisor Acute Call Date: 05/29/2023 Time: 2:06 PM Name: Marshall Tello Sr. : 1935 Caller: Remedios Relationship to HPI: Marshall Tello Sr. is a 88 year old male that ihis is calling Consignder at Home Intake to report weakness/fatigue. Nursing [...] Encounters Date Type Specialty Care Team Description 05/30/2023 Scheduled Telephone [facility] [place] Technician, [address] [address] 05/31/2023 Scheduled Telephone [facility] Ski Technician, [address] [address] 06/02/2023 Laboratory Laboratory Processing [facility] Mobile Home Draw [address] [place] [address] 06/16/2023 Laboratory Laboratory Processing [facility] Home Draw [address] [place] [address] 06/30/2023 Laboratory Laboratory Processing [facility] Home Draw [address] [place] [address] 07/11/2023 [facility] [address] [facility] [place] [address] 07/14/2023 Laboratory Laboratory Processing [facility] Mobile Home Draw [address] [place] [address] 07/17/2023 Office Visit Dermatology Pilar Joseph PA-C [address] [place] [address] [place] [address] 07/26/2023 Office Visit Family Medicine Zenobia Lyon MD [address] [facility] [place] [address] 07/28/2023 Laboratory Laboratory Processing [facility] Draw [address] [place] [address] 08/11/2023 Laboratory Laboratory Processing [facility] Draw [address] [place] [address] 08/25/2023 Laboratory Laboratory Processing G[facility], [facility] Draw [address] [place] [address] 08/29/2023 Office Visit Cardiology Chris Choudhury PA-C [address] [place] [address] 09/08/2023 Laboratory Laboratory Processing [facility], [facility] [address] [place] [address] 09/22/2023 Laboratory Laboratory Processing [facility], [facility] Draw [address] [place], [place] [address] Scheduled Orders Name Type Priority Associated Diagnoses [...] COPD 09/06/2023 09/06/2022 CKD PHOS USE SMARTSET 78788 09/07/2023 12/0 04/2022, 09/05/2022, 01/14/2022, Additional history exists Depression Screening, Annual for Pts 12 and Over 01/25/2024 01/24/2023 DIG LEVEL FOR MEDICATION MONITORING YEARLY 01/26/2024 01/25/2023, 04/17/2021, 03/09/2020, Additional history exists Albumin/Creatinine Ratio 01/27/2024 023, 01/14/2022, 08/14/2017, Additional history exists CKD HGB USE SMARTSET 92330 05/17/202405/17, 05/17/2023, 05/15/2023, Additional history exists COLONOSCOPY-EVERY [...] this encounter Medical Devices Implanted Type Area Franchise Broker Device Identifier Shelf Expiration Date Model / Serial / Lot Screw T2 Alpha Lock 5x47.5mm - [id number] Implanted:Qty: 1 on 09/06/2022 by Sean Silva MD at [place] [facility] Left: Leg Upper RICHELLE : TRAUMA 06/01/2032 [id number] / / [id number] documented as of this encounter Visit Diagnoses Diagnosis Multiple myeloma not having achieved remission (HCC)- Primary Multiple myeloma, without mention of having achieved remission documented in this encounter Advance Directives Documents on File Type Date Recorded Patient Equipment Washer Expl anation POLST 10/17/2022 [place] DERS [...] Agen t (per Health Care Power of Bureau Chief document) Reji Tello Neil Adult Child First Alterna te Health Care Agent (per Health Care Power of Bureau Chief document) Bowen Tello Adult Child First Alternate Health Care Agent (per Health Care Power of Bureau Chief document) Care Teams Epic Director Relationship Specialty Start Date End Date Zenobia Lyon MD [address] [place] [address] [place] [address] PCP - General Family Medicine 05/22/23 documented as of this encounter
--- OUTSIDE RECORDS SUMMARY | 2023-08-22 03:53 | External Medical Summary | Summary of Care ---
Author Name Unknown Organization [facility] Address [address] [place] [address] Phone [phone] Care Team Providers Care Rice Drier Operator Name Role Phone Muriel Moreira MD Primary Care Prov ider Reason for Visit * Reason Onset Date Comments [facility]: Maintenance 05/18/2023 Encounter Details Date Type Department Care Team Description 05/18/2023 Telephone [facility], [place] [address] [place], [place] [phone] Samson Conway PA-C [address] [place] [address] [facility]: Maintenance Allergies Active Allergy Reactions Severity Noted Date Comments James Inhibitors 09/10/2002 cough on prinivil Hydrocodone 09/05/2022 Family states AMS change when taken Prednisone 05/26/2011 Blisters in throat Sulfa Antibiotics 03/19/2001 dysurea documented as of this encounter (statuses as of 05/18/2023) Medications Medication Sig Dispensed Refills Start Date [...] 75 MG Oral Tablet (pLAVix)Indications: Atherosclerosis of [place] coronary artery of [place] heart without angina pectoris TAKE ONE TABLET [...] every 6 hours as needed. 0 Active valACYclovir HCl 1 GM Oral Tablet (Valtrex) Take 1 Tablet by mouth in the morning and 1 Tablet before bedtime. Do all this for 7 days. For 7 days for first episode. 14 Tablet 0 05/13/2023 Active Ondansetron HCl 4 MG Oral Tablet [...] as of this encounter (statuses as of 05/18/2023) Active Problems Patient Care Coordination No te [...] CORONARY ATHEROSCLEROSIS OF UNSPECIFIED TYPE OF VESSEL, [place] OR GRAFT Last Assessment & Plan: Stable. 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 documented as of this encounter (statuses as of 05/18/2023) Resolved Problems Problem Noted Date Resolved Date [...] infection without hematuria 202101/24/2023 Overview: Xavier to [facility] 04/20-04/29 urosepsis multi drug resistant [...] as of this encounter (statuses as of 05/18/2023) Immunizations Name Administration Dates Next Due COVID-19 mRNA, LNP-s, No Pre serve, 2-Dose Series (Moderna) 08/24/2021,12/07/2020,11/09/2020 Covid-19, Mrna, Lnp-s, Pf, B ivalent, 30 Mcg, IM, 12 yrs and above (Pfizer) 08/29/2022 Influenza, Whole Virus 07/17/2001,09/20/2000 Pneumococcal Conjugate Vacc, 13 Valent (Prevnar) 01/30/2015 Pneumococcal Polysaccharide PPV23 (Pneumovax) 01/22/2019,08/22/2006 Seasonal Influenza, Quadriva lent Hd (Fluzone Hd) 07/22/2022,06/17/2021 Seasonal Influenza, Quadriva lent, No Preserve, 6 Mons & Above, IM 06/26/2018,06/28/2017 Seasonal Influenza, Quadriva lent, No Preserve, Adjuvanted, 65+ Yrs, IM 06/22/2020 Seasonal Influenza, Quadriva lent, No Preserve, IM [...] encounter Miscellaneous Notes * Telephone Encounter - Yesica Kohler RN - 05/18/2023 5:30 PM EDT FAXED order to [facility]. Destiney Kohler RN [facility] Buffer Copper Tiffanie at Home * Addendum Note - Samson Conway PA-C - 05/18/2023 4:21 PM EDTAddended by: SAMSON CONWAY on: 05/18/2023 04:21 PM Modules accepted: Orders * Telephone Encounter - Samson Conway PA-C - 05/18/2023 4:19 PM EDT Thank you everyone the orders placed on a prescription which is under the patient's med list in theprescription name medical instructions all 3 orders on the same prescription. * Telephone Encounter - Andressa Spaulding RN - 05/18/2023 2:54 PM EDT Call received from Annemarie at [facility]. States that the order received for pt's blood transfusion will need to be redone and resent to them. States that they will needs scripts placed for Type and Cross for 2 units of PRBC Transfuse pt with 2 units PRBC Order for tylenol pre treatment And will need a consent done. States that the are able to get consent when pt arrives at the facility tomorrow but will need the ordering provider to be available to speak with them via speaker phonetomorrow am. States that the pt's appt is at 8:30 am and they will call the [facility] intake line to be connected to Richi Conway PA-C who will need to consent pt via phone call. Request new script to be faxed to [facility] at [phone] * Telephone Encounter - CASTRO Senior - 05/18/2023 2:30 PM EDT Images from the original note were not included. Consent refaxed to [facility]. CASTRO Senior * Telephone Encounter - Tiny Stephenson RN - 05/18/2023 2:21 PM EDT Received call from [facility]- they did not receive consent for transfusion. This will be needed prior to being able to transfuse patient. [facility]: please re-fax consent form to [facility]. Thanks! * Telephone Encounter - CASTRO Senior - 05/18/2023 1:23 PM EDT Call to [facility] they are able to transfuse patient 2 units PRB tomorrow at 8:30am. I spoke with she is aware, she is going to relay information to son Bowen as well. is reports patient is scheduled for mobile lab tomorrow. I have cancelled visit and will have [facility] draw prior to infusion. I have faxed order to [facility] at [phone]. CASTRO Senior documented in this encounter Plan of Treatment Upcoming Encounters Date Type Specialty Care Team Description 06/02/2023 Laboratory Laboratory Processing [facility] Draw [address] [place] [address] 06/16/2023 Laboratory Laboratory Processing [facility] Draw [address] [place] [address] 06/30/2023 Laboratory Laboratory Processing [facility], [facility] Draw [address] [place] [address] 07/11/2023 Cardiac Studies Cardiology [facility] [address] [place] [address] 07/14/2023 Laboratory Laboratory Processing [facility] Home Draw [address] [place] [address] 07/17/2023 Office Visit Dermatology Pilar Joseph PA-C [address] [place] [address] [place] [address] 07/26/2023 Office Visit Family Medicine Muriel Moreira MD [address] [place] [address] [place] [address] 07/28/2023 Laboratory Laboratory Processing [facility] Draw [address] [place] [address] 08/11/2023 Laboratory Laboratory Processing [facility], [facility] Draw [address] [place] [address] 08/25/2023 Laboratory Laboratory Processing [facility] Draw [address] [place] [address] 08/29/2023 Office Visit Cardiology Chris Choudhury PA-C [address] [facility] [place] [address] 09/08/2023 Laboratory Laboratory Processing [facility] Draw [address] [place] [address] 09/22/2023 Laboratory Laboratory Processing [facility] Draw [address] [place] [address] Scheduled Orders Name Type Priority Associated Diagnoses Orde r Schedule TYPE AND SCREEN Lab Routine Anemia, unspecified type Expected: 05/19/2023, Expires: 06/18/2024 Scheduled Procedures Name Priority Associated Diagnoses Date/Ti [...] COPD 09/06/2023 09/06/2022 CKD PHOS USE SMARTSET 11689 09/07/2023 12/0 04/2022, 09/05/2022, 01/14/2022, Additional history exists Depression Screening, Annual for Pts 12 and Over 01/25/2024 01/24/2023 DIG LEVEL FOR MEDICATION MONITORING YEARLY 01/26/2024 01/25/2023, 04/17/2021, 03/09/2020, Additional history exists Albumin/Creatinine Ratio 01/27/20242 023, 01/14/2022, 08/14/2017, Additional history exists CKD HGB USE SMARTSET 25753 05/17/202405/17, 05/17/2023, 05/15/2023, Additional history exists COLONOSCOPY-EVERY 5 YRS AGES 18-100 04/25/2028 04/25/2023, 03/26/2020, 07/06/2010, Additional history exists Zoster Vaccines Discontinued 02/10/2012 DXA Scan Discontinued 01/22/2016, 12/2 03/2013, 09/16/2011, Additional history exists Pneumococcal Vaccine: 65+ [...] this encounter Medical Devices Implanted Type Area Sap Portal Consultant Device Identifier Shelf Expiration Date Model / Serial / Lot Screw T2 Alpha Lock 5x47.5mm - [id number] Implanted:Qty: 1 on 09/06/2022 by Sean Silva MD at [place] [facility] Left: Leg Upper RICHELLE : TRAUMA 06/01/2032 [id number] / / [id number] documented as of this encounter Visit Diagnoses Diagnosis Anemia, unspecified type- Primary documented in this encounter Advance Directives Documents on File Type Date Recorded Patient Staffing Manager Expl anation POLST 10/17/2022 [place] OR DERS FOR LIFE-SUSTAINING TREATMENT POLST 09/10/2022 [place] OR DERS FOR LIFE-SUSTAINING TREATMENT Latest Code [...] Agen t (per Health Care Power of Electrotherapist document) Reji Trejo Adult Child First Alterna te Health Care Agent (per Health Care Power of Electrotherapist document) Bowen Omer Adult Child First Alternate Health Care Agent (per Health Care Power of Electrotherapist document) Care Teams Rice Drier Operator Relationship Specialty Start Date End Date Muriel Moreira MD [address] [place] [address] [place] [address] PCP - General Family Medicine 06/26/18 documented as of this encounter
--- OUTSIDE RECORDS SUMMARY | 2023-08-22 03:53 | External Medical Summary | Summary of Care ---
Author Name Unknown Organization [facility] Address [address] [facility] [place] [address] Phone [phone] Care Team Providers Care Restaurant Mgr Name Role Phone Zenobia Lyon MD Primary Care Provide r Reason for Visit * Reason Onset Date Comments [facility]: Acute 05/29/2023 Encounter Details Date Type Department Care Team Description 05/29/2023 Telephone [facility], [facility] [address] [facility] [place] [address] [facility], Nurse [facility] [address] [facility] [place] [address] [facility] [...] 75 MG Oral Tablet (pLAVix)Indications: Atherosclerosis of [place] coronary artery of [place] heart without angina pectoris TAKE ONE TABLET [...] glenn ek & Lt. leg ; Rt. mu-ism 07/0207/18/2002 07/15/2015 Dyslipidemia, goal to be determined [...] - 05/29/2023 2:46 PM EDT Call to [employer] to see if they can go out sooner that Monday. New order for CBC. They said they can go out Monday. Call to patient's to let her know that a CBC was ordered and [facility] will be bout Monday to draw lab. Also, that our provider CC Dr Sykes due to no improving after transfusion. She is in agreement. Ami Black. RN [facility] emergency room registered nurse [phone] * Addendum Note - Rupali Guerrier MD [...] improving symptomatically with transfusion Rupali Guerrier MD, [facility], [place], FAAFP Nuclear Weapons Mechanical Specialist [facility] Palliative Care Service Available on [employer] [facility] * Telephone Encounter - Ami Black RN - 05/29/2023 2:06 PM EDT ising at Home emergency room registered nurse Acute Call Date: 05/29/2023 Time: 2:06 PM Name: Marshall Tello Sr. : 1935 Caller: Remedios Relationship to HPI: Marshall Tello Sr. is a 88 year old male that ihis is calling [facility] at Home Intake to report weakness/fatigue. Nursing [...] Team Description 05/30/2023 Scheduled Telephone [facility], [address] [place] [address] 05/31/2023 Scheduled Telephone [facility], [facility] [address] 06/02/2023 Laboratory Laboratory Processing [facility] Mobile Home Draw [address] [place] [address] 06/16/2023 Laboratory Laboratory Processing [facility] Mobile Home Draw [address] [place] [address] 06/30/2023 Laboratory Laboratory Processing [facility] Mobile Home Draw [address] [place] [address] 07/11/2023 Cardiac Studies Cardiology [facility] [address] [place] [address] 07/14/2023 Laboratory Laboratory Processing [facility] Mobile Home Draw [address] [place] [address] 07/17/2023 Office Visit Dermatology Pilar Joseph PA-C [address] [place] [address] [place] [address] 07/26/2023 Office Visit Family Medicine Zenobia Lyon MD [address] [place] [address] [place] [address] 07/28/2023 Laboratory Laboratory Processing [facility] Mobile Home Draw [address] [place] [address] 08/11/2023 Laboratory Laboratory Processing [facility] Mobile Home Draw [address] [place] [address] 08/25/2023 Laboratory Laboratory Processing [facility] Mobile Home Draw [address] [place] [address] 08/29/2023 Office Visit Cardiology Chris Choudhury PA-C [address] [place] [address] 09/08/2023 Laboratory Laboratory Processing [facility] Mobile Home Draw [address] [place] [address] 09/22/2023 Laboratory Laboratory Processing [facility] [place], [facility] Mobile Home Draw [address] [place] [address] Scheduled Orders Name Type Priority Associated Diagnoses [...] COPD 09/06/2023 09/06/2022 CKD PHOS USE SMARTSET 08353 09/07/2023 12/0 04/2022, 09/05/2022, 01/14/2022, Additional history exists Depression Screening, Annual for Pts 12 and Over 01/25/2024 01/24/2023 DIG LEVEL FOR MEDICATION MONITORING YEARLY 01/26/2024 01/25/2023, 04/17/2021, 03/09/2020, Additional history exists Albumin/Creatinine Ratio 01/27/20242 023, 01/14/2022, 08/14/2017, Additional history exists CKD HGB USE SMARTSET 29221 05/17/202405/17, 05/17/2023, 05/15/2023, Additional history exists COLONOSCOPY-EVERY [...] this encounter Medical Devices Implanted Type Area Senior Restaurant Manager Device Identifier Shelf Expiration Date Model / Serial / Lot Screw T2 Alpha Lock 5x47.5mm - [id number] Implanted:Qty: 1 on 09/06/2022 by Sean Silva MD at [facility] Left: Leg Upper RICHELLE : TRAUMA 06/01/2032 [id number] / / [id number] documented as of this encounter Visit Diagnoses Diagnosis Multiple myeloma not having achieved remission (HCC)- Primary Multiple myeloma, without mention of having achieved remission documented in this encounter Advance Directives Documents on File Type Date Recorded 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
--- OUTSIDE RECORDS SUMMARY | 2023-08-22 03:53 | External Medical Summary | Summary of Care ---
Author Name Unknown Organization [facility] Address [address] [facility] [place] [address] Phone [phone] Care Team Providers Care Safety Instructor Name Role Phone Zenobia Lyon MD Primary Care Provide r Reason for Visit * Reason Onset Date Comments [facility]: Acute 05/29/2023 Encounter Details Date Type Department Care Team Description 05/29/2023 Telephone [facility], [facility] 132 [facility] [place] [address] [facility], Nurse [facility] [address] [facility] [place] [address] [facility]: [...] 75 MG Oral Tablet (pLAVix)Indications: Atherosclerosis of [place] coronary artery of [place] heart without angina pectoris TAKE ONE TABLET [...] CORONARY ATHEROSCLEROSIS OF UNSPECIFIED TYPE OF VESSEL, ATKA OR GRAFT Last Assessment & Plan: Stable. [...] infection without hematuria 202101/24/2023 Overview: [facility] to [facility] 04/20-04/29 urosepsis multi drug resistant [...] glenn ek & Lt. leg ; Rt. 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 : 1935 Caller: Remedios Relationship to HPI: Marshall Tello Sr. is a 88 year old male that ihis is calling [employer] at Home Intake to report weakness/fatigue. Nursing [...] Team Description 05/30/2023 Scheduled Telephone [facility] Door And Arrival Attendant, [address] [address] 05/31/2023 Scheduled Telephone [facility] And Arrival Attendant, [address] [address] 06/02/2023 Laboratory Laboratory Processing [facility] Mobile Home Draw [address] [place] [address] 06/16/2023 Laboratory Laboratory Processing [facility] Mobile Home Draw [address] [place] [address] 06/30/2023 Laboratory Laboratory Processing [facility] Mobile Home Draw [address] [place] [address] 07/11/2023 Cardiac Studies [facility] 132 [facility] [place] [address] 07/14/2023 Laboratory Laboratory Processing [facility] Mobile Home Draw [address] [place] [address] 07/17/2023 Office Visit Dermatology Pilar Joseph PA-C [address] [place] [address] [place] [address] 07/26/2023 Office Visit Family Medicine Zenobia Lyon MD [address] [facility] [place] [address] 07/28/2023 Laboratory Laboratory Processing [facility] Mobile Home Draw [address] [place] [address] 08/11/2023 Laboratory Laboratory Processing [facility] Mobile Home Draw [address] [place] [address] 08/25/2023 Laboratory Laboratory Processing [facility] Mobile Home Draw [address] [place] [address] 08/29/2023 Office Visit Cardiology Chris Choudhury PA-C [address] [place] [address] 09/08/2023 Laboratory Laboratory Processing [facility] Mobile Home Draw [address] [place] [address] 09/22/2023 Laboratory Laboratory Processing [facility] Mobile Home Draw [address] [place], [place] [id number] Scheduled Orders Name Type Priority Associated Diagnoses [...] COPD 09/06/2023 09/06/2022 CKD PHOS USE SMARTSET 45075 09/07/2023 12/0 04/2022, 09/05/2022, 01/14/2022, Additional history exists Depression Screening, Annual for Pts 12 and Over 01/25/2024 01/24/2023 DIG LEVEL FOR MEDICATION MONITORING YEARLY 01/26/2024 01/25/2023, 04/17/2021, 03/09/2020, Additional history exists Albumin/Creatinine Ratio 01/27/2024 023, 01/14/2022, 08/14/2017, Additional history exists CKD HGB USE SMARTSET 55579 05/17/202405/17, 05/17/2023, 05/15/2023, Additional history exists COLONOSCOPY-EVERY [...] this encounter Medical Devices Implanted Type Area Farm Truck Driver Device Identifier Shelf Expiration Date Model / Serial / Lot Screw T2 Alpha Lock 5x47.5mm - [id number] Implanted:Qty: 1 on 09/06/2022 by [place] [facility] [place]: Leg Upper RICHELLE : TRAUMA 06/01/2032 [id number] / / [id number] documented as of this encounter Visit Diagnoses Diagnosis Multiple myeloma not having achieved remission (HCC)- Primary Multiple myeloma, without mention of having achieved remission documented in this encounter Advance Directives Documents on File Type Date Recorded 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 Plant 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 POLST 10/17/2022 [place] OR DERS FOR LIFE-SUSTAINING TREATMENT POLST 09/10/2022 [place] OR DERS FOR LIFE-SUSTAINING TREATMENT Latest Code Status on File Code Status Date Activated Date Inactivated Comments No Code 09/10/2022 9:05 AM 09/21/2022 7:29 PM Th is order reflects the patients wishes and were [...] Agen t (per Health Care Power of Placement Officer document) Reji Tello Neil Adult Child First Alterna te Health Care Agent (per Health Care Power of Placement Officer document) Bowen Tello Adult Child First Alternate Health Care Agent (per Health Care Power of Placement Officer document) Care Teams Safety Instructor Relationship Specialty Start Date End Date Zenobia Lyon MD [address] [place] [address] [place] [address] PCP - General Family Medicine 05/22/23 documented as of this encounter
--- OUTSIDE RECORDS SUMMARY | 2023-08-22 03:54 | External Medical Summary | Summary of Care ---
Author Name Unknown Organization [facility] Address [address] [place] [address] Phone [phone] Care Team Providers Care Hydraulic Press Tender Name Role Phone Muriel Moreira MD Primary Care Prov ider Reason for Visit * Reason Onset Date Comments [facility]: Maintenance 05/18/2023 Encounter Details Date Type Department Care Team Description 05/18/2023 Telephone [facility], [place] [address] [place], [place] [id number] Samson Conway PA-C [address] [place] [address] [facility]: Maintenance Allergies Active Allergy Reactions Severity Noted Date Comments James Inhibitors 09/10/2002 cough on prinivil Hydrocodone 09/05/2022 Family states AMS change when taken Prednisone 05/26/2011 Blisters in throat Sulfa Antibiotics 03/19/2001 dysurea documented as of this encounter (statuses as of 05/18/2023) Medications Medication Sig Dispensed Refills Start Date End Date Status OXYGENIndications:Hyp oxia,Acute systolic CHF (congestive heart failure) (HCC) 2L/min via nasal cannula 24 hours continous, please provide portables as well 1 Each 0 07/30/2014 Active Latanoprost 0.005 % Ophthalmic Solution (Xalatan) Instill into both eyes 1 Drop in the morning. 2.5 mL 0 05/13/2022 Active Ventolin HFA 108 (90 Base) MCG/ACT Inhalation Aerosol SolutionIndications:M oderate persistent asthma without complication Inhale by mouth 2 Puffs 4 times a day . 18 g 0 05/13/2022 Active Magnesium Oxide 400 MG Oral TabletIndications:Tri fascicular block,Coronary atherosclerosis one per day 34 Tablet 11 05/13/2022 Active Multivitamin Adult Oral Tablet Take by mouth daily . 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 0 09/16/2022 Active Acetaminophen 500 MG Oral TabletIndications:Can cer related pain Take 2 Tablets by mouth 2 times a day with morning and evening meals. 100 Tablet 0 10/28/2022 Active Clopidogrel Bisulfate 75 MG Oral Tablet (pLAVix)Indications:A therosclerosis of [place] coronary artery of [place] heart without angina pectoris TAKE ONE TABLET BY MOUTH IN THE MORNING 90 Tablet 3 12/23/2022 Active Furosemide 40 MG Oral Tablet (Lasix) Take 1 Tablet by mouth in the morning. 100 Tablet 3 02/23/2023 Active Potassium Chloride Emma ER 20 MEQ Oral Tablet Extended ReleaseIndications:Hy pokalemia TAKE 1 TABLET BY MOUTH EVERY MORNING [...] 03/22/2023 Active Dutasteride 0.5 MG Oral Capsule (Avodart)Indications: BPH with obstruction/lower urinary tract symptoms Take 1 Capsule by mouth in the morning. 90 Capsule 1 04/14/2023 Active Pantoprazole Sodium 40 MG Oral Tablet Delayed Release (Protonix)Indications :GERD (gastroesophageal reflux disease) Take 1 Tablet by [...] for first episode. 14 Tablet 0 05/13/2023 05/20/2023 Active Ondansetron HCl 4 MG Oral Tablet Take 1 Tablet by mouth every 6 hours as needed for Nausea. 20 Tablet 0 05/15/2023 Active Fluticasone-Salmetero l 250-50 MCG/ACT Inhalation Aerosol Powder Breath Activated (Wixela Inhub)Indications:Ast hma, moderate persistent Inhale 1 Puff by mouth in the morning and 1 Puff before bedtime. 3 Each 3 05/15/2023 Active documented as of this encounter (statuses [...] CORONARY ATHEROSCLEROSIS OF UNSPECIFIED TYPE OF VESSEL, TUOLUMNE OR GRAFT Last Assessment & Plan: Stable. [...] Miscellaneous Notes * Telephone Encounter - CASTRO Senior - 05/18/2023 2:30 PM EDT Images from the original note were not included. Consent refaxed to [facility]. CASTRO Senior * Telephone Encounter - Tiny Stephenson RN - 05/18/2023 2:21 PM EDT Received call from [facility]- they did not receive consent for transfusion. This will be needed prior to being able to transfuse patient. [facility]: please re-fax consent form to [facility]. Thanks! * Telephone Encounter - CASTRO Senior - 05/18/2023 1:23 PM EDT Call to [facility] they are able to transfuse patient 2 units PRB tomorrow at 8:30am. I spoke with she is aware, she is going to relay information to son Bowen as well. is reports patient is scheduled for mobile lab tomorrow. I have cancelled visit and will have [facility] draw prior to infusion. I have faxed order to [facility] at [phone]. CASTRO Senior documented in this encounter Plan of Treatment Upcoming Encounters Date Type Specialty Care Team Description 06/02/2023 Laboratory Laboratory Processing [facility] Mobile Home Draw [address] [place] [address] 06/16/2023 Laboratory Laboratory Processing [facility] Mobile Home Draw [address] [place] [address] 06/30/2023 Laboratory Laboratory Processing [facility] Mobile Home Draw [address] [place] [address] 07/11/2023 Cardiac Studies [address]iology [address] [address] 07/14/2023 Laboratory Laboratory Processing [facility] Mobile Home Draw [address] [place] [address] 07/17/2023 Office Visit Dermatology Pilar Joseph PA-C [address] [place] [address] [place] [address] 07/26/2023 Office Visit Family Medicine Muriel Moreira MD [address] [place] [address] [place] [address] 07/28/2023 Laboratory Laboratory Processing [facility] Mobile Home Draw [address] [place] [address] 08/11/2023 Laboratory Laboratory Processing [facility] Mobile Home Draw [address] [place] [address] 08/25/2023 Laboratory Laboratory Processing [facility] Mobile Home Draw [address] [place] [address] 08/29/2023 Office Visit Cardiology Chris Choudhury PA-C [address] [place] [address] 09/08/2023 Laboratory Laboratory Processing [facility] Mobile Home Draw [address] [place] [address] 09/22/2023 Laboratory Laboratory Processing [facility] Mobile Home Draw [address] [place], [place] [address] Scheduled Orders Name Type Priority Associated Diagnoses [...] COPD 09/06/2023 09/06/2022 CKD PHOS USE SMARTSET 80709 09/07/2023 12/0 04/2022, 09/05/2022, 01/14/2022, Additional history exists Depression Screening, Annual for Pts 12 and Over 01/25/2024 01/24/2023 DIG LEVEL FOR MEDICATION MONITORING YEARLY 01/26/2024 01/25/2023, 04/17/2021, 03/09/2020, Additional history exists Albumin/Creatinine Ratio 01/27/2024 023, 01/14/2022, 08/14/2017, Additional history exists CKD HGB USE SMARTSET 64395 05/17/202405/17, 05/17/2023, 05/15/2023, Additional history exists COLONOSCOPY-EVERY [...] encounter Medical Devices Implanted Type Area Life Consultant Device Identifier Shelf Expiration Date Model / Serial / Lot Screw T2 Alpha Lock 5x47.5mm - [id number] Implanted:Qty: 1 on 09/06/2022 by Sean Silva MD at [facility] Left: Leg Upper RICHELLE : TRAUMA 06/01/2032 [id number] / / [id number] documented as of this encounter Visit Diagnoses Diagnosis Anemia, unspecified type- Primary documented in this encounter Advance Directives Documents on File Type Date Recorded Patient Sound Tester Expl anation POLST 10/17/2022 [place] OR DERS [...] Agen t (per Health Care Power of Quilt Stuffer document) Reji Tello Dotts Adult Child First Alterna te Health Care Agent (per Health Care Power of Quilt Stuffer document) Bowen Tello Adult Child First Alternate Health Care Agent (per Health Care Power of Quilt Stuffer document) Care Teams Hydraulic Press Tender Relationship Specialty Start Date End Date Muriel Moreira MD [address] [place] [address] [place] [address] PCP - General Family Medicine 06/26/18 documented as of this encounter
--- OUTSIDE RECORDS SUMMARY | 2023-08-22 03:54 | External Medical Summary | Summary of Care ---
Author Name Unknown Organization [facility] Address [address] [place] [address] Phone [phone] Care Team Providers Care Poultry Farm Supervisor Name Role Phone Muriel Moreira MD Primary Care Prov ider Reason for Visit * Reason Onset Date Comments [facility]: Maintenance 05/18/2023 Encounter Details Date Type Department Care Team Description 05/18/2023 Telephone [facility] [place] [address] [place], [place] [id number] Samson Conway PA-C [address] [place] [address] [facility]: Maintenance Allergies Active Allergy [...] 75 MG Oral Tablet (pLAVix)Indications:A therosclerosis of [place] coronary artery of [place] heart without angina pectoris TAKE ONE TABLET [...] CORONARY ATHEROSCLEROSIS OF UNSPECIFIED TYPE OF VESSEL, [place] OR GRAFT Last Assessment & Plan: Stable. [...] PM EDT Call received from Annemarie at [facility] clinic. States that the order received for [...] 8:30 am and they will call the [facility] intake line to be connected to Richi Conway PA-C who will need to consent pt via phone call. Request new script to be faxed to [facility] at [phone] * Telephone Encounter - CASTRO Senior - 05/18/2023 2:30 PM EDT Images from the original note were not included. [facility] CASTRO Senior * Telephone Encounter - Tiny Stephenson RN - 05/18/2023 2:21 PM EDT [facility] they did not receive consent for transfusion. This will be needed prior to being able to transfuse patient. [facility]: please re-fax consent form to [facility]. Thanks! * Telephone Encounter - CASTRO Senior - 05/18/2023 1:23 PM EDT Call to [facility] they are able to transfuse patient 2 units PRB tomorrow at 8:30am. I spoke with she is aware, she is going to relay information to son Bowen as well. is reports patient is scheduled for mobile lab tomorrow. I have cancelled visit and will have [facility] draw prior to infusion. I [facility] at [phone]. CASTRO Senior documented in this encounter Plan of Treatment Upcoming Encounters Date Type Specialty Care Team Description 06/02/2023 Laboratory Laboratory Processing [facility] [address] [place] [address] 06/16/2023 Laboratory Laboratory Processing [facility] [address] [place] [address] 06/30/2023 Laboratory Laboratory Processing [facility] [address] [place] [address] 07/11/2023 Cardiac Studies Cardiology [address] [address] 07/14/2023 Laboratory Laboratory Processing [facility] [address] [place] [address] 07/17/2023 Office Visit Dermatology Pilar Joseph PA-C [address] [place] [address] [place] [address] 07/26/2023 Office Visit Family Medicine Muriel Moreira MD [address] [place] [address] [place] [address] 07/28/2023 Laboratory Laboratory Processing [facility] [address] [place] [address] 08/11/2023 Laboratory Laboratory Processing [facility] [address] [place] [address] 08/25/2023 Laboratory Laboratory Processing [facility], [facility] Draw [address] [place] [address] 08/29/2023 Office Visit Cardiology Chris Choduhury PA-C [address] [place] [address] 09/08/2023 Laboratory Laboratory Processing [facility], [facility] Mobile Home Draw [address] [place] [address] 09/22/2023 Laboratory Laboratory Processing [facility], [facility] Home Draw [address] [place] [address] Scheduled Orders Name Type Priority Associated Diagnoses [...] COPD 09/06/2023 09/06/2022 CKD PHOS USE SMARTSET 99340 09/07/2023 120 04/2022, 09/05/2022, 01/14/2022, Additional history exists Depression Screening, Annual for Pts 12 and Over 01/25/2024 01/24/2023 DIG LEVEL FOR MEDICATION MONITORING YEARLY 01/26/2024 01/25/2023, 04/17/2021, 03/09/2020, Additional history exists Albumin/Creatinine Ratio 01/27/2024 023, 01/14/2022, 08/14/2017, Additional history exists CKD HGB USE SMARTSET 19444 05/17/202405/17, 05/17/2023, 05/15/2023, Additional history exists COLONOSCOPY-EVERY [...] this encounter Medical Devices Implanted Type Area Sales Enablement Manager Device Identifier Shelf Expiration Date Model / Serial / Lot Screw T2 Alpha Lock 5x47.5mm - [id number] Implanted:Qty: 1 on 09/06/2022 by Sean Silva MD at [facility] Left: Leg Upper RICHELLE : TRAUMA 06/01/2032 [id number] / / [id number] documented as of this encounter Visit Diagnoses Diagnosis Anemia, unspecified type- Primary documented in this encounter Advance Directives Documents on File Type Date Recorded 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 POLST 10/17/2022 [place] DERS FOR LIFE-SUSTAINING TREATMENT POLST 09/10/2022 [place] [facility]S FOR LIFE-SUSTAINING TREATMENT Latest Code Status on [...] Agen t (per Health Care Power of Strategic Marketing Specialist document) Reji Tello Dotts Adult Child First Alterna te Health Care Agent (per Health Care Power of Strategic Marketing Specialist document) Bowen Tello Adult Child First Alternate Health Care Agent (per Health Care Power of Strategic Marketing Specialist document) Care Teams Poultry Farm Supervisor Relationship Specialty Start Date End Date Muriel Moreira MD [address] [place] [address] [place] [address] PCP - General Family Medicine 06/26/18 documented as of this encounter
--- OUTSIDE RECORDS SUMMARY | 2023-08-22 03:54 | External Medical Summary | Summary of Care ---
Author Name Unknown Organization [facility] Address [address] [place] [address] Phone [phone] Care Team Providers Care Beater Dumper Name Role Phone Muriel Moreira MD Primary Care Prov ider Reason for Visit * Reason Onset Date Comments Follow Up 05/18/2023 Encounter Details Date Type Department Care Team Description 05/18/2023 Scheduled Telephone [facility], [facility] [address] [place] [address] Lila Brownlee, RN [address] [place] [address] Allergies Active Allergy Reactions Severity Noted Date [...] 75 MG Oral Tablet (pLAVix)Indications: Atherosclerosis of [place] coronary artery of [place] heart without angina pectoris TAKE ONE TABLET [...] control in clinical research program 03/25/2015 Overview: [employer] Product Surveillance Registry PI: Kylah Lilly IV, [...] CORONARY ATHEROSCLEROSIS OF UNSPECIFIED TYPE OF VESSEL, [place] OR GRAFT Last Assessment & Plan: Stable. [...] Urinary tract infection without hematuria 202101/24/2023 Overview: [facility] to [facility] 04/20-04/29 [...] encounter Miscellaneous Notes * Telephone Encounter - Lila Brownlee RN - 05/18/2023 4:55 PM EDT Hemoglobin 7.1 Patient is arranged for blood transfusion tomorrow. documented in this encounter Plan of Treatment Upcoming Encounters Date Type Specialty Care Team Description 06/02/2023 Laboratory Laboratory Processing [facility] [address] [place] [address] 06/16/2023 Laboratory Laboratory Processing [facility] [address] [place] [address] 06/30/2023 Laboratory Laboratory Processing [facility] [address] [place] [address] 07/11/2023 Cardiac Studies Cardiology [address] [address] 07/14/2023 Laboratory Laboratory Processing [facility] [address] [place] [address] 07/17/2023 Office Visit Dermatology Pilar Joseph PA-C [address] [place] [address] [place] [address] 07/26/2023 Office Visit Family Medicine Muriel Moreira MD [address] [place] [address] [place] [address] 07/28/2023 Laboratory Laboratory Processing [facility] [address] [place] [address] 08/11/2023 Laboratory Laboratory Processing [facility], [facility] [address] [place] [address] 08/25/2023 Laboratory Laboratory Processing [facility] [address] [place] [address] 08/29/2023 Office Visit Cardiology Chris Choudhury PA-C [address] [place] [address] 09/08/2023 Laboratory Laboratory Processing [facility] Mobile Home Draw [address] [place] [address] 09/22/2023 Laboratory Laboratory Processing [facility], [facility] Mobile Home Draw [address] [place] [address] Scheduled Procedures Name Priority Associated Diagnoses Date/Ti [...] COPD 09/06/2023 09/06/2022 CKD PHOS USE SMARTSET 20133 09/07/2023 12/0 04/2022, 09/05/2022, 01/14/2022, Additional history exists Depression Screening, Annual for Pts 12 and Over 01/25/2024 01/24/2023 DIG LEVEL FOR MEDICATION MONITORING YEARLY 01/26/2024 01/25/2023, 04/17/2021, 03/09/2020, Additional history exists Albumin/Creatinine Ratio 01/27/2024 023, 01/14/2022, 08/14/2017, Additional history exists CKD HGB USE SMARTSET 96992 05/17/202405/17, 05/17/2023, 05/15/2023, Additional history exists COLONOSCOPY-EVERY [...] this encounter Medical Devices Implanted Type Area Case Fitter Device Identifier Shelf Expiration Date Model / Serial / Lot Screw T2 Alpha Lock 5x47.5mm - [id number] Implanted:Qty: 1 on 09/06/2022 by Sean Silva MD at [facility] Left: Leg Upper RICHELLE : TRAUMA 06/01/2032 [id number] / / [id number] documented as of this encounter Advance Directives Documents on File Type Date Recorded 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 POLST 10/17/2022 [place] OR DERS FOR LIFE-SUSTAINING TREATMENT POLST 09/10/2022 [place] DERS FOR LIFE-SUSTAINING TREATMENT Latest Code [...] Agen t (per Health Care Power of Management Nurse Rn document) Reji Omer Dotts Adult Child First Alterna te Health Care Agent (per Health Care Power of Management Nurse Rn document) Bowen Omer Adult Child First Alternate Health Care Agent (per Health Care Power of Management Nurse Rn document) Care Teams Beater Dumper Relationship Specialty Start Date End Date Muriel Moreira MD [address] [place] [address] TH[place] Vasquez [phone] PCP - General Family Medicine 06/26/18 documented as of this encounter
--- OUTSIDE RECORDS SUMMARY | 2023-08-22 03:54 | External Medical Summary | Summary of Care ---
Author Name Unknown Organization [facility] Address [address] [place] [address] Phone [phone] Care Team Providers Care Backrest Assembler Name Role Phone Muriel Moreira MD Primary Care Prov ider Reason for Visit * Reason Onset Date Comments [facility]: Maintenance 05/18/2023 Encounter Details Date Type Department Care Team Description 05/18/2023 Telephone [facility] [place] [address] [place], [place] [phone] Samson Conway PA-C [address] [place] [address] [facility]: Maintenance Allergies Active Allergy [...] 75 MG Oral Tablet (pLAVix)Indications:A therosclerosis of [place] coronary artery of [place] heart without angina pectoris TAKE ONE TABLET [...] 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 [...] glenn ek & Lt. leg ; Rt. bahai 07/0207/18/2002 07/15/2015 Dyslipidemia, goal to be determined [...] Miscellaneous Notes * Telephone Encounter - Tiny Stephenson RN - 05/18/2023 2:21 PM EDT Received call from [facility]- they did not receive consent for transfusion. This will be needed prior to being able to transfuse patient. [place]: please re-fax consent form to [facility]. Thanks! * Telephone Encounter - CASTRO Senior - 05/18/2023 1:23 PM EDT Call to [facility] they are able to transfuse patient 2 units PRB tomorrow at 8:30am. I spoke with she is aware, she is going to relay information to son Bowen as well. is reports patient is scheduled for mobile lab tomorrow. I have cancelled visit and will have [facility] draw prior to infusion. I have faxed order to [facility] at [phone]. CASTRO Senior documented in this encounter Plan of Treatment Upcoming Encounters Date Type Specialty Care Team Description 06/02/2023 Laboratory Laboratory Processing [facility] Draw [address] [place] [address] 06/16/2023 Laboratory Laboratory Processing [facility] Draw [address] [place] [address] 06/30/2023 Laboratory Laboratory Processing [facility] Draw [address] [place] [address] 07/11/2023 Cardiac Studies Cardiology [facility] [address] [place] [address] 07/14/2023 Laboratory Laboratory Processing [facility] Draw [address] [place] [address] 07/17/2023 Office Visit Dermatology Pilar Joseph PA-C [address] [place] [address] [place] [address] 07/26/2023 Office Visit Family Medicine Emmanuel Marrero, Muriel Menon MD [address] [place] [address] [place] [address] 07/28/2023 Laboratory Laboratory Processing [facility], [facility] Draw [address] [place] [address] 08/11/2023 Laboratory Laboratory Processing [facility] [address] [place] [address] 08/25/2023 Laboratory Laboratory Processing [facility] Draw [address] [place] [address] 08/29/2023 Office Visit Cardiology Chris Choudhury PA-C [address] [place] [address] 09/08/2023 Laboratory Laboratory Processing [facility] [address] [place] [address] 09/22/2023 Laboratory Laboratory Processing [facility] [address] [place], [place] [address] Scheduled Orders Name Type Priority Associated Diagnoses [...] COPD 09/06/2023 09/06/2022 CKD PHOS USE SMARTSET 13549 09/07/202304/2022, 09/05/2022, 01/14/2022, Additional history exists Depression Screening, Annual for Pts 12 and Over 01/25/2024 01/24/2023 DIG LEVEL FOR MEDICATION MONITORING YEARLY 01/26/2024 01/25/2023, 04/17/2021, 03/09/2020, Additional history exists Albumin/Creatinine Ratio 01/27/2024 023, 01/14/2022, 08/14/2017, Additional history exists CKD HGB USE SMARTSET 62016 05/17/202405/17, 05/17/2023, 05/15/2023, Additional history exists COLONOSCOPY-EVERY [...] this encounter Medical Devices Implanted Type Area Crimper Assembler Device Identifier Shelf Expiration Date Model / Serial / Lot Screw T2 Alpha Lock 5x47.5mm - [id number] Implanted:Qty: 1 on 09/06/2022 by Sean Silva MD at [facility] Left: Leg Upper RICHELLE : TRAUMA 06/01/2032 [id number] / / [id number] documented as of this encounter Visit Diagnoses Diagnosis Anemia, unspecified type- Primary documented in this encounter Advance Directives Documents on File Type Date Recorded 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 POLST 10/17/2022 [place] OR DERS FOR LIFE-SUSTAINING TREATMENT POLST 09/10/2022 [place] OR DERS FOR LIFE-SUSTAINING TREATMENT Latest Code [...] Agen t (per Health Care Power of Boat Dock Operator document) Reji Tello Dotts Adult Child First Alterna te Health Care Agent (per Health Care Power of Boat Dock Operator document) Bowen Tello Adult Child First Alternate Health Care Agent (per Health Care Power of Boat Dock Operator document) Care Teams Backrest Assembler Relationship Specialty Start Date End Date Muriel Moreira MD [address] [place] [address] [place] [address] PCP - General Family Medicine 06/26/18 documented as of this encounter
--- OUTSIDE RECORDS SUMMARY | 2023-08-22 03:54 | External Medical Summary | Summary of Care ---
Author Name Unknown Organization [facility] Address [address] [place] [address] Phone [phone] Care Team Providers Care Manager Validation Name Role Phone Muriel Moreira MD Primary Care Prov ider Reason for Visit * Reason Onset Date Comments [facility]: Maintenance 05/18/2023 Encounter Details Date Type Department Care Team Description 05/18/2023 Telephone [facility] [place] [address] [place], [place] [phone] Samson [place] PA-C [address] [place] [address] [facility]: Maintenance Allergies Active Allergy [...] 75 MG Oral Tablet (pLAVix)Indications: Atherosclerosis of [place] coronary artery of [place] heart without angina pectoris TAKE ONE TABLET [...] CORONARY ATHEROSCLEROSIS OF UNSPECIFIED TYPE OF VESSEL, [place] OR GRAFT Last Assessment & Plan: Stable. [...] encounter Miscellaneous Notes * Addendum Note - Samson [place] PA-C [...] PM EDT [facility]. States that the order received for [...] 8:30 am and they will call the [facility] intake line to be connected to Richi Conway PA-C who will need to consent pt via phone call. Request new script to be faxed to [facility] at [phone] * Telephone Encounter - CASTRO Senior - 05/18/2023 2:30 PM EDT Images from the original note were not included. Consent refaxed to [facility]. CASTRO Senior * Telephone Encounter - Tiny Stephenson RN - 05/18/2023 2:21 PM EDT Received call from [facility]- they did not receive consent for [...] to infusion. I have faxed order to [facility] at [phone]. CASTRO Senior documented in this encounter Plan of Treatment Upcoming Encounters Date Type Specialty Care Team Description 06/02/2023 Laboratory Laboratory Processing [facility] [address] [place] [address] 06/16/2023 Laboratory Laboratory Processing [facility], [facility] Draw [address] [place] [address] 06/30/2023 Laboratory Laboratory Processing [facility], [facility] Draw [address] [place] [address] 07/11/2023 Cardiac Studies Cardiology [facility], Pac[facility] [address] [address] 07/14/2023 Laboratory Laboratory Processing [facility], [facility] Draw [address] [place] [address] 07/17/2023 Office Visit Dermatology Pilar Joseph PA-C [address] [place] [address] [place] [address] 07/26/2023 Office Visit Family Medicine Muriel Moreira MD [address] [place] [address] [place] [address] 07/28/2023 Laboratory Laboratory Processing [facility], [facility] Draw [address] [place] [address] 08/11/2023 Laboratory Laboratory Processing [facility], [facility] Draw [address] [place] [address] 08/25/2023 Laboratory Laboratory Processing [facility], [facility] Draw [address] [place] [address] 08/29/2023 Office Visit Cardiology Chris Choudhury PA-C [address] [place] [address] 09/08/2023 Laboratory Laboratory Processing [facility], [facility] Draw [address] [place] [address] 09/22/2023 Laboratory Laboratory Processing [facility], [facility] [address] [place], [place] [address] Scheduled Orders Name Type Priority Associated Diagnoses [...] COPD 09/06/2023 09/06/2022 CKD PHOS USE SMARTSET 34916 09/07/2023 12/0 04/2022, 09/05/2022, 01/14/2022, Additional history exists Depression Screening, Annual for Pts 12 and Over 01/25/2024 01/24/2023 DIG LEVEL FOR MEDICATION MONITORING YEARLY 01/26/2024 01/25/2023, 04/17/2021, 03/09/2020, Additional history exists Albumin/Creatinine Ratio 01/27/2024 023, 01/14/2022, 08/14/2017, Additional history exists CKD HGB USE SMARTSET 83299 05/17/202405/17, 05/17/2023, 05/15/2023, Additional history exists COLONOSCOPY-EVERY [...] this encounter Medical Devices Implanted Type Area Distributed Energy Systems Consultant Device Identifier Shelf Expiration Date Model / Serial / Lot Screw T2 Alpha Lock 5x47.5mm - [id number] Implanted:Qty: 1 on 09/06/2022 by Sean Silva MD at [facility] Left: Leg Upper RICHELLE : TRAUMA 06/01/2032 [id number] / / [id number] documented as of this encounter Visit Diagnoses Diagnosis Anemia, unspecified type- Primary documented in this encounter Advance Directives Documents on File Type Date Recorded Patient Manager Ems Expl anation POLST 10/17/2022 [place] OR [...] Agen t (per Health Care Power of Computational Physicist document) Reji Tello Vannats Adult Child First Alterna te Health Care Agent (per Health Care Power of Computational Physicist document) Bowen Tello Adult Child First Alternate Health Care Agent (per Health Care Power of Computational Physicist document) Care Teams Manager Validation Relationship Specialty Start Date End Date Muriel Moreira MD [address] [place] [address] [place] [address] PCP - General Family Medicine 06/26/18 documented as of this encounter
--- OUTSIDE RECORDS SUMMARY | 2023-08-22 03:55 | External Medical Summary ---
Author Name Unknown Address Unknown Organization K01:[facility] [facility] [place] [address] [facility] [address] [facility] [address] Laboratory Report Ordering Provider Test Date Status APRIL MOLINA 05/15/2023 10:42:04 Final Observation Date Value Abnormality Reference (Units ) Status WBC, Total 05/15/2023 10:42:04 4.08 4.00-10.80 (K/uL) Final RBC 05/15/2023 10:42:04 2.31 4.50-5.25 (M/uL) Final Hemoglobin 05/15/2023 10:42:04 7.5 Below low normal 14.0-16.8 (g/dL) Final HCT 05/15/2023 10:42:04 25.5 Below low normal 40.0-48.4 (%) Final MCV 05/15/2023 10:42:04 110.4 82.0-99.5 (fL) Final MCH 05/15/2023 10:42:04 32.5 27.0-34.0 (pg) Final MCHC 05/15/2023 10:42:04 29.4 32.0-36.0 (g/dL) Final RDW 05/15/2023 10:42:04 17.8 11.5-15.5 (%) Final Platelets 05/15/2023 10:42:04 122 Below low normal 140-400 (K/uL) Final MPV 05/15/2023 10:42:04 11.8 6.6-11.1 (fL) Final Nucleated erythrocytes/100 leukocytes [Ratio] in Blood by Automated count 05/15/2023 10:42:04 0 <=0 (/100 WBCs) Final Performing Location [facility] [place] [address] [place] [address]
--- OUTSIDE RECORDS SUMMARY | 2023-08-22 03:55 | External Medical Summary ---
Author Name Unknown Address Unknown Organization K01:[facility] [place] [address] [facility] [place] [address] Laboratory Report Ordering Provider Test Date Status APRIL MOLINA 05/17/2023 10:01:51 Final Observation Date Value Abnormality Reference (Units ) Status WBC, Total 05/17/2023 10:01:51 4.39 4.00-10.80 (K/uL) Final RBC 05/17/2023 10:01:51 2.23 4.50-5.25 (M/uL) Final Hemoglobin 05/17/2023 10:01:51 7.1 Below low normal 14.0-16.8 (g/dL) Final HCT 05/17/2023 10:01:51 24.1 Below low normal 40.0-48.4 (%) Final MCV 05/17/2023 10:01:51 108.1 82.0-99.5 (fL) Final MCH 05/17/2023 10:01:51 31.8 27.0-34.0 (pg) Final MCHC 05/17/2023 10:01:51 29.5 32.0-36.0 (g/dL) Final RDW 05/17/2023 10:01:51 17.5 11.5-15.5 (%) Final Platelets 05/17/2023 10:01:51 241 140-400 (K/uL) Final MPV 05/17/2023 10:01:51 9.6 6.6-11.1 (fL) Final Nucleated erythrocytes/100 leukocytes [Ratio] in Blood by Automated count 05/17/2023 10:01:51 1 Above high normal <=0 (/100 WBCs) Final Performing Location [facility] [place] - [address] [place] [address]
--- OUTSIDE RECORDS SUMMARY | 2023-08-22 03:55 | External Medical Summary | Summary of Care ---
Author Name Unknown Organization [facility] Address [address] [place] [address] Phone [phone] Care Team Providers Care Internet Webmaster Name Role Phone Muriel Moreira MD Primary Care Prov ider Reason for Visit * Reason Onset Date Comments Follow Up 05/16/2023 Encounter Details Date Type Department Care Team Description 05/16/2023 Scheduled Telephone [facility], [facility] [address] [place] [address] Lila Brownlee, RN [address] [place] [address] Allergies Active Allergy Reactions Severity Noted Date Comments James Inhibitors 09/10/2002 cough on prinivil Hydrocodone 09/05/2022 Family states AMS change when taken Prednisone 05/26/2011 Blisters in throat Sulfa Antibiotics 03/19/2001 dysurea documented as of this encounter (statuses as of 05/16/2023) Medications Medication Sig Dispensed Refills Start Date [...] 75 MG Oral Tablet (pLAVix)Indications:A therosclerosis of [place] coronary artery of [place] heart without angina pectoris TAKE ONE TABLET [...] as of this encounter (statuses as of 05/16/2023) Active Problems Patient Care Coordination No te [...] CORONARY ATHEROSCLEROSIS OF UNSPECIFIED TYPE OF VESSEL, LYTTON OR GRAFT Last Assessment & Plan: Stable. 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 Repeat CBC tomorrow. Phone call to client services- mobile lab. Patient to be placed on schedule for tomorrow. Phone call to - reports stopping Tramadol was effective- hallucinations resolved- states he is lucid. Encouraging frequent foods/ fluids. Made aware of above. documented in this encounter Plan of Treatment Upcoming Encounters Date Type Specialty Care Team Description 05/17/2023 Laboratory [facility] [address] [place] [address] 05/19/2023 Laboratory Laboratory [facility] [address] [place] [address] 06/02/2023 Laboratory Laboratory [facility] [address] [place] [address] 06/16/2023 Laboratory Laboratory Processing [facility] [address] [place] [address] 06/30/2023 Laboratory Laboratory Processing [facility] [address] [place] [address] 07/11/2023 Cardiac Studies Cardiology [address] [address] 07/14/2023 Laboratory Laboratory Processing [facility] [address] [place] [address] 07/17/2023 Office Visit Dermatology Pilar Joseph PA-C [address] [place] [address] [place] [address] 07/26/2023 Office Visit Family Medicine Muriel Moreira MD [address] [place] [address] [place] [address] 07/28/2023 Laboratory Laboratory [facility] [address] [place] [address] 08/11/2023 Laboratory Laboratory [place] [facility] [place] [facility] [address] [place] [address] 08/25/2023 Laboratory Laboratory [place] [facility] [place] [facility] [address] [place] [address] 08/29/2023 Office Visit Cardiology Chris Choudhury PA-C [address] [place] [address] 09/08/2023 Laboratory Laboratory Processing [facility] [place] [facility] [address] [place] [address] 09/22/2023 Laboratory Laboratory Processing [facility] Draw [address] [place] [address] Scheduled Procedures Name Priority Associated Diagnoses Date/Ti [...] COPD 09/06/2023 09/06/2022 CKD PHOS USE SMARTSET 15054 09/07/2023 12/0 04/2022, 09/05/2022, 01/14/2022, Additional history exists Depression Screening, Annual for Pts 12 and Over 01/25/2024 01/24/2023 DIG LEVEL FOR MEDICATION MONITORING YEARLY 01/26/2024 01/25/2023, 04/17/2021, 03/09/2020, Additional history exists Albumin/Creatinine Ratio 01/27/2024 023, 01/14/2022, 08/14/2017, Additional history exists CKD HGB USE SMARTSET 96932 05/15/202405/15, 05/05/2023, 05/05/2023, Additional history exists COLONOSCOPY-EVERY 5 YRS AGES [...] this encounter Medical Devices Implanted Type Area Waste Elimination Device Identifier Shelf Expiration Date Model / Serial / Lot Screw T2 Alpha Lock 5x47.5mm - [id number] Implanted:Qty: 1 on 09/06/2022 by Sean Silva MD at 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
--- OUTSIDE RECORDS SUMMARY | 2023-08-22 03:55 | External Medical Summary | Summary of Care ---
Author Name Unknown Organization [facility] Address [address] [place] [address] Phone [phone] Care Team Providers Care Radial Router Operator Name Role Phone Muriel Muller MD Primary Care Prov ider Reason for Visit * Reason Comments eRx-Medication Refill Encounter Details Date Type Department Care Team Description 05/13/2023 Refill Cardiology [address] [place] [id number] Chris Choudhury PA-C [address] [place] [address] Asthma, moderate persistent* Allergies Active Allergy Reactions Severity Noted Date Comments James Inhibitors 09/10/2002 cough on prinivil Hydrocodone 09/05/2022 Family states AMS change when taken Prednisone 05/26/2011 Blisters in throat Sulfa Antibiotics 03/19/2001 dysurea documented as of this encounter (statuses as of 05/15/2023) Medications Medication Sig Dispensed Refills Start Date [...] 75 MG Oral Tablet (pLAVix)Indications: Atherosclerosis of [place] coronary artery of [place] heart without angina pectoris TAKE ONE TABLET [...] for first episode. 14 Tablet 0 05/13/2023 3 Active Fluticasone-Salmeter ol 250-50 MCG/ACT Inhalation Aerosol Powder Breath Activated (Wixela Inhub)Indications:As thma, moderate persistent Inhale 1 Puff by mouth in the morning and 1 Puff before bedtime. 3 Each 3 05/15/2023 Active Fluticasone-Salmeter ol 250-50 MCG/ACT Inhalation Aerosol Powder Breath Activated (Advair Diskus) Inhale by mouth 1 Puff in the morning AND 1 Puff before bedtime. 180 Each 0 05/13/2022 3 Discontinue d(Patient preference/ discontinua tion) documented as of this encounter (statuses as of 05/15/2023) Active Problems Patient Care Coordination No te [...] CORONARY ATHEROSCLEROSIS OF UNSPECIFIED TYPE OF VESSEL, NOATAK OR GRAFT Last Assessment & Plan: Stable. 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 documented as of this encounter (statuses as of 05/15/2023) Resolved Problems Problem Noted Date Resolved Date [...] [employer] leg ; Rt. taoist 07/0207/18/2002 07/15/2015 Dyslipidemia, goal to be determined [...] as of this encounter (statuses as of 05/15/2023) Immunizations Name Administration Dates Next Due COVID-19 [...] encounter Miscellaneous Notes * Telephone Encounter - Muriel Marrero MD - 05/15/2023 3:53 PM EDT Signed Prescriptions: Disp Refills Fluticasone-Salmeterol 250-50 MCG/ACT Inha*3 Each 3 Sig: Inhale 1 Puff by mouth in the morning and 1 Puff before bedtime. Authorizing Provider: MURIEL MULLER Refused Prescriptions: Disp Refills Wixela Inhub 250-50 MCG/ACT Inhalation Aer*240 Ea*3 Sig: inhale by mouth 1 puff in the morning and 1 puff before bedtime. Refused By: FLORINA ZAMORA Reason for Refusal: Managed by another physician Reason for Refusal Comment: I only saw patient when he was at [facility] * Telephone Encounter - Quiana Trejo RN - 05/15/2023 2:54 PM EDT Pending Prescriptions: Disp Refills Fluticasone-Salmeterol 250-50 MCG/ACT Inh*3 Each 3 Sig: Inhale 1 Puff by mouth in the morning and 1 Puff before bedtime. Refused Prescriptions: Disp Refills Wixela Inhub 250-50 MCG/ACT Inhalation Aer*240 Ea*3 Sig: inhale by mouth 1 puff in the morning and 1 puff before bedtime. 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 Asthma, moderate persistent J45.40 Type 2 diabetes mellitus with hemoglobin A1c goal of less than 7.5% (HCC) E11.9 Essential hypertension with goal blood pressure [...] without long-term current use of insulin ([facility]) E11.21 Sensorineural hearing loss (SNHL) of both ears H90.3 Hx of nonmelanoma skin cancer Z85.828 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, 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.9 Chronic atrial fibrillation (HCC) I48.20 Primary open-angle glaucoma, left eye, mild stage H40.1121 Skin lesion L98.9 DISH (diffuse idiopathic skeletal hyperostosis) M48.10 Chronic obstructive pulmonary disease ([facility]) J44.9 Other specified peripheral vascular diseases ([facility]) I73.89 Type 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 ([facility]) E11.51 DM type 2 with diabetic peripheral neuropathy ([facility]) E11.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 ([facility]) I13.0, I50.42, N18.31 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 ([facility]) N18.31, D63.1 Iron deficiency anemia D50.9 Type 2 diabetes mellitus with stage 3a chronic kidney disease, without long- term current use ofinsulin ([facility]) E11.22, N18.31 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[facility]) G30.1, F02.80 Multiple myeloma ([facility]) C90.00 Infrarenal abdominal aortic aneurysm (AAA) without rupture ([facility]) 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 ([facility]) I50.42 Labs: Lab Results Component Value Date/Time CREATININE 0.8 01/08/1997 09:40 AM CREATININE - [facility] 1.6 (H) 05/05/2023 07:59 AM CREATININE - [facility] 1.2 05/29/2020 03:13 PM CREATININE, RANDOM URINE - [facility] 118 01/26/2023 07:31 AM CREATININE, RANDOM URINE - [facility] 275 08/14/2017 10:04 AM CREATININE-OUTSIDE LAB 1.27 07/27/2021 12:00 AM Lab Results Component Value Date/Time POTASSIUM 4.7 01/08/1997 09:40 AM POTASSIUM - [facility] 3.9 05/05/2023 07:59 AM POTASSIUM - [facility] 4.6 05/29/2020 03:13 PM POTASSIUM, WHOLE BLOOD - [facility] 3.9 08/01/2000 02:05 PM POTASSIUM-OUTSIDE LAB 3.8 07/27/2021 12:00 AM Lab Results Component Value Date/Time TSH - [facility] 1.97 09/06/2022 03:24 AM TSH - [facility] 1.04 11/06/2018 01:43 PM Lab Results Component Value Date/Time LDL (CALCULATED) 159. (H) 01/08/1997 09:40 AM LDL (CALCULATED)-OUTSIDE LAB 43 11/20/2017 12:00 AM LDL (DIRECT MEASURE)-OUTSIDE LAB 43 11/20/2017 12:00 AM LDL CHOLESTEROL (CALCULATED) - [facility] 31 03/09/2020 12:04 PM LDL CHOLESTEROL (CALCULATED) - [facility] 48 08/14/2017 10:04 AM LDL CHOLESTEROL (DIRECT MEASURE) - [facility] 46 12/24/2020 02:55 PM LDL CHOLESTEROL (DIRECT MEASURE) - [facility] 44 03/09/2020 12:04 PM LDL CHOLESTEROL (DIRECT MEASURE) - [facility] NOT APPLICABLE 08/14/2017 10:04 AM LDL CHOLESTEROL (DIRECT MEASURE) - [facility] NOT APPLICABLE 08/09/2016 12:18 PM LDL CHOLESTEROL (DIRECT MEASURE) - [facility] 87 01/13/2011 10:05 AM Lab Results Component Value Date/Time ALT 23 01/08/1997 09:40 AM ALT - [facility] 11 05/05/2023 07:59 AM ALT - [facility] 13 11/06/2018 01:43 PM Hemoglobin AIC Results: Lab Results Component Value Date/Time HEMOGLOBIN A1C - [facility] 9.3 (H) 01/25/2023 08:06 AM HEMOGLOBIN A1C - [facility] 7.8 (H) 09/06/2022 03:24 AM HEMOGLOBIN A1C - [facility] 6.4 (H) 01/14/2022 04:27 PM HEMOGLOBIN A1C - [facility] 6.9 (H) 03/09/2020 12:04 PM HEMOGLOBIN A1C - [facility] 6.6 (H) 07/03/2019 11:10 AM HEMOGLOBIN A1C - [facility] 7.1 (H) 01/22/2019 11:30 AM * Telephone Encounter - Florina Zamora PA-C - 05/15/2023 12:37 PM EDT Pt is no longer at [facility] * Telephone Encounter - Florina Zamora PA-C - 05/15/2023 12:37 PM EDTRefused Prescriptions: Disp Refills Wixela Inhub 250-50 MCG/ACT Inhalation Aer*240 Ea*3 Sig: inhale by mouth 1 puff in the morning and 1 puff before bedtime. Refused By: FLORINA ZAMORA Reason for Refusal: Managed by another physician Reason for Refusal Comment: I only saw patient when he was at [facility] * Telephone Encounter - ARASELI Chavarria - 05/15/2023 11:11 AM EDTPending Prescriptions: Disp Refills Wixela Inhub 250-50 MCG/ACT Inhalation Aer*240 Ea*3 Sig: inhale by mouth 1 puff in the morning and 1 puff before bedtime. * Telephone Encounter - ARASELI Chavarria - 05/15/2023 11:09 AM EDT Did you pend patient's preferred pharmacy and medication before forwarding?yes Pharmacy: [id number] [address] [facility] Pending Prescriptions: Disp Refills Margaritaxela Inhub 250-50 MCG/ACT Inhalation Ae*240 Ea*3 Sig: inhale by mouth 1 puff in the morning and 1 puff before bedtime. Last Visit: 02/23/2023 (in office), Visit date not found (telemedicine) Next Visit: 07/11/2023 If no future appointments scheduled, and last appointment is greater than a year ago, please schedule patient for a follow-up appointment Last date the medication was ordered: 05-13-2022 Is this request for a controlled substance?No Urine Drug Screen:No results found. However, due to the size of the patient record, not all encounters were searched. Please check Results Review for a complete set of results. Patient Phone Numbers Labs: Lab Results Component Value Date/Time CREAT 1.6 (H) 05/05/2023 07:59 AM CREAT 1.27 07/27/2021 12:00 AM CREAT 1.2 05/29/2020 03:13 PM CREAT 0.8 01/08/1997 09:40 AM POTASSIUM 3.9 05/05/2023 07:59 AM POTASSIUM 3.8 07/27/2021 12:00 AM POTASSIUM 4.6 05/29/2020 03:13 PM POTASSIUM 4.7 01/08/1997 09:40 AM TSH 1.97 09/06/2022 03:24 AM TSH 1.04 11/06/2018 01:43 PM LDLCALC 31 03/09/2020 12:04 PM LDLCALC 159. (H) 01/08/1997 09:40 AM LDLDIRECT 46 12/24/2020 02:55 PM LDLDIRECT 44 03/09/2020 12:04 PM ALT 11 05/05/2023 07:59 AM ALT 13 11/06/2018 01:43 PM ALT 23 01/08/1997 09:40 AM HGBA1C 9.3 (H) 01/25/2023 08:06 AM HGBA1C 6.9 (H) 03/09/2020 12:04 PM documented in this encounter Plan of Treatment Upcoming Encounters Date Type Specialty Care Team Description 05/19/2023 Laboratory [facility] [address] [place] [address] 06/02/2023 Laboratory Laboratory Processing [facility] [address] [place] [address] 06/16/2023 Laboratory Laboratory Processing [facility] [address] [place] [address] 06/30/2023 Laboratory Laboratory [facility] [address] [place] [address] 07/11/2023 Cardiac Studies Cardiology [address] [address] 07/14/2023 Laboratory Laboratory Processing [facility] [address] [place] [address] 07/17/2023 Office Visit Dermatology Pilar Joseph PA-C [address] [place] [address] [place] [address] 07/26/2023 Office Visit Family Medicine Muriel Muller MD [address] [place] [address] [place] [address] 07/28/2023 Laboratory Laboratory Processing [facility] [address] [place] [address] 08/11/2023 Laboratory Laboratory Processing [facility] [address] [place] [address] 08/25/2023 Laboratory Laboratory [place] [facility] [place] [facility] [address] [place] [address] 08/29/2023 Office Visit Cardiology Chris Choudhury PA-C [address] [place] [address] 09/08/2023 Laboratory Laboratory Processing [facility] [place] [address] [place] [address] 09/22/2023 Laboratory Laboratory Processing [facility] [place] [address] [place] [address] Scheduled Procedures Name Priority Associated Diagnoses Date/Ti [...] COPD 09/06/2023 09/06/2022 CKD PHOS USE SMARTSET 78150 09/07/2023 12/0 04/2022, 09/05/2022, 01/14/2022, Additional history exists Depression Screening, Annual for Pts 12 and Over 01/25/2024 01/24/2023 DIG LEVEL FOR MEDICATION MONITORING YEARLY 01/26/2024 01/25/2023, 04/17/2021, 03/09/2020, Additional history exists Albumin/Creatinine Ratio 01/27/2024 023, 01/14/2022, 08/14/2017, Additional history exists CKD HGB USE SMARTSET 59656 05/05/202405/05, 05/05/2023, 04/28/2023, Additional history exists COLONOSCOPY-EVERY 5 YRS AGES [...] this encounter Medical Devices Implanted Type Area Drug Worker Device Identifier Shelf Expiration Date Model / Serial / Lot Screw T2 Alpha Lock 5x47.5mm - [id number] Implanted:Qty: 1 on 09/06/2022 by Sean Silva MD at [facility] [place] Left: Leg Upper RICHELLE : TRAUMA 06/01/2032 [id number] / / [id number] documented as of this encounter Visit Diagnoses Diagnosis Asthma, moderate persistent- Primary Unspecified asthma documented in this encounter Advance Directives Documents on File Type Date Recorded Patient Social Insurance Administrator Expl anation POLST 10/17/2022 [place] FOR LIFE-SUSTAINING TREATMENT POLST 09/10/2022 [place] [facility] FOR [facility]-SUSTAINING TREATMENT Latest Code Status [...] Agen t (per Health Care Power of Glass Blowing Instructor document) Reji Tello Dotts Adult Child First Alterna te Health Care Agent (per Health Care Power of Glass Blowing Instructor document) Bowen Tello Adult Child First Alternate Health Care Agent (per Health Care Power of Glass Blowing Instructor document) Care Teams Radial Router Operator Relationship Specialty Start Date End Date Muriel Muller MD [address] [place] [address] [place] [address] PCP - General Family Medicine 06/26/18 documented as of this encounter
--- OUTSIDE RECORDS SUMMARY | 2023-08-22 03:55 | External Medical Summary | Summary of Care ---
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)* Allergies Active Allergy Reactions Severity Noted Date Comments James Inhibitors 09/10/2002 cough on prinivil Hydrocodone 09/05/2022 Family states AMS change when taken Prednisone 05/26/2011 Blisters in throat Sulfa Antibiotics 03/19/2001 dysurea documented as of this encounter (statuses as of 05/15/2023) Medications Medication Sig Dispensed Refills Start Date End Date Status OXYGENIndications:Hypo shaquille,Acute systolic CHF (congestive heart failure) (HCC) 2L/min via nasal cannula 24 hours continous, please provide portables as well 1 Each 0 07/30/2014 Active Latanoprost 0.005 % Ophthalmic Solution (Xalatan) Instill into both eyes 1 Drop in the morning. 2.5 mL 0 05/13/2022 Active Ventolin HFA 108 (90 Base) MCG/ACT Inhalation Aerosol SolutionIndications:Mo derate persistent asthma without complication Inhale by mouth 2 Puffs 4 times a day . 18 g 0 05/13/2022 Active Magnesium Oxide 400 MG Oral TabletIndications:Trif ascicular block,Coronary atherosclerosis one per day 34 Tablet 11 05/13/2022 Active Fluticasone-Salmeterol 250-50 MCG/ACT Inhalation Aerosol Powder Breath Activated (Advair Diskus) Inhale by mouth 1 Puff in the morning AND 1 Puff before bedtime. 180 Each 0 05/13/2022 Active Multivitamin Adult Oral Tablet Take by mouth daily . 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 0 09/16/2022 Active Acetaminophen 500 MG Oral TabletIndications:Canc er related pain Take 2 Tablets by mouth 2 times a day with morning and evening meals. 100 Tablet 0 10/28/2022 Active Clopidogrel Bisulfate 75 MG Oral Tablet (pLAVix)Indications:At herosclerosis of la posta coronary artery of [place] post[place] heart without angina pectoris TAKE ONE TABLET BY MOUTH IN THE MORNING 90 Tablet 3 12/23/2022 Active Furosemide 40 MG Oral Tablet (Lasix) Take 1 Tablet by mouth in the morning. 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 90 Capsule 1 04/14/2023 Active Pantoprazole Sodium 40 MG Oral Tablet Delayed Release (Protonix)Indications: GERD (gastroesophageal reflux disease) Take 1 Tablet by mouth daily. 90 Tablet 1 04/24/2023 Active documented as of this encounter (statuses [...] control in clinical research program 03/25/2015 Overview: Shift [employer] Product Surveillance Registry PI: Kylah Lilly IV, [...] CORONARY ATHEROSCLEROSIS OF UNSPECIFIED TYPE OF VESSEL, KOBUK OR GRAFT Last Assessment & Plan: Stable. [...] infection without hematuria 202101/24/2023 Overview: [facility] to [facility] 04/20-04/29 urosepsis multi drug resistant [...] glenn ek & Lt. leg 98; Rt. confucianism 07/0207/18/2002 07/15/2015 Dyslipidemia, goal to [...] 20 Q uit: 10/02/1969 Smokeless Tobacco: Never Comments:1970 Alcohol Use Standard Drinks/Week Comments Not Currently 0 (1 standard drink = 0.6 oz pur e alcohol) rare Sex Assigned at Date Recorded Male 01/24/2023 3:56 PM E DT Job Start Date Occupation Industry Not on file Not on file Not on file documented as of this encounter Last Filed Vital Signs Vital Sign Reading Time Taken Comments Blood Pressure 142/62 05/12/2023 11:40 AM EDT Pulse 88 05/12/2023 11:40 AM EDT Temperature 36.3 C (97.4 F) 05/12/2023 11:40 AM E DT Respiratory Rate 18 05/12/2023 11:40 AM EDT Oxygen Saturation 94% 05/12/2023 11:40 AM EDT Inhaled Oxygen Concentration - - [...] Progress Notes * Lila Brownlee RN - 05/12/2023 11:40 AM EDT [facility] [employer]aire[employer] Tanner Visit Date: 05/12/2023 Time: 11:40 AM Name: Marshall Tello Sr. : 1935 Current Concerns: Patient seen for acute visit- reports patient had a bad night- moaning at times, bouts of diarrhea. States his behavior is indicative of low hemoglobin. 8/4- hemoglobin 8.7 Patient alert- talks very little. Sat at table during visit. VS wnl No orthostasis noted- no change in BP with sitting or standing. Lungs clear bilaterally No sob noted Taking fluids well CBC ordered- unable to obtain- placed on mobile lab schedule for Monday. Patient does have a history of UTI's- UA C&S obtained. Problems/Symptoms: Review of Systems Constitutional: Negative. HENT: Negative. Eyes: Negative. Respiratory: Negative. Cardiovascular: Negative. Gastrointestinal: Negative. Genitourinary: Negative. Musculoskeletal: Positive for arthralgias. Skin: Negative. Neurological: Positive for weakness. Hematological: Negative. Psychiatric/Behavioral: Negative. Physical Exam: BP 142/62 (BP Site: Right Arm, BP Position: Sitting, BP Cuff Size: Regular) | Pulse 88 | Temp 36.3 C (97.4 F) (Tympanic) | Resp 18 | SpO2 94% Pain 0 Physical Exam Constitutional: Appearance: Normal appearance. Cardiovascular: Rate and Rhythm: Normal rate and regular rhythm. Pulses: Normal pulses. Pulmonary: Effort: Pulmonary effort is normal. Breath sounds: Normal breath sounds. Abdominal: General: Bowel sounds are normal. Palpations: Abdomen is soft. Musculoskeletal: General: Normal range of motion. Skin: General: Skin is warm and dry. Capillary Refill: Capillary refill takes 2 to 3 seconds. Neurological: Mental Status: He is alert. Mental status is at baseline. Psychiatric: Mood and Affect: Mood normal. [facility]-10 Completed this Visit: No. No falls since last visit Treatment/Plan: UA C&S taken to [facility] CBC to be drawn by mobile lab Monday Fluids encouraged Continue medications as prescribed Fall precautions Follow up phone call in one day Home Interventions Provided: Labs/Specimen Collection Performed CBC, UA C&S Lab/Imaging Ordered UA C&S, CBC Consulted PCP/Specialist Reinforced current Plan of Care, including self-management and medication regimen Patient Needs to Remember: Call [facility] with any medical concerns/ red flags Referrals Needed: n/a Follow Up: Is there cellular connectivity/connectivity in the home? Yes Does the patient have internet in the home? No Patient encouraged to call the intake phone number for all urgent but not emergent issues. Scheduled to follow up with patient in 1 day via phone. Lila Julio RN 05/12/2023 11:40 AM documented in this encounter Plan of Treatment Upcoming Encounters Date Type Specialty Care Team Description 05/19/2023 Laboratory [facility] [address] [place] [address] 06/02/2023 Laboratory [facility] [address] [place] [address] 06/16/2023 Laboratory Laboratory [facility] [address] [place] [address] 06/30/2023 Laboratory Laboratory [facility] [address] [place] [address] 07/11/2023 Cardiac Studies Cardiology [address] [address] 07/14/2023 Laboratory Laboratory [facility] [address] [place] [address] 07/17/2023 Office Visit Dermatology Pilar Joseph PA-C [address] [place] [address] [place] [address] 07/26/2023 Office Visit Family Medicine Muriel Moreira MD [address] [place] [address] [place] [address] 07/28/2023 Laboratory Laboratory [facility] [address] [place] [address] 08/11/2023 Laboratory Laboratory Processing [facility], [facility] [address] [place] [address] 08/25/2023 Laboratory Laboratory Processing [facility], [facility] Draw [address] [place] [address] 08/29/2023 Office Visit Cardiology Chris Choudhury PA-C [address] [place] [address] 09/08/2023 Laboratory Laboratory Processing [facility], [facility] Draw [address], [place] [id number] 09/22/2023 Laboratory Laboratory Processing [facility], [facility] Draw [address], [place] [id number] Scheduled Orders Name Type Priority Associated Diagnoses Orde r Schedule CBC Lab Routine 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) Expected: 05/12/2023 (Approximate), Expires: 05/11/2024 Scheduled Procedures Name Priority Associated Diagnoses Date/Ti [...] COPD 09/06/2023 09/06/2022 CKD PHOS USE SMARTSET 16624 09/07/202304/2022, 09/05/2022, 01/14/2022, Additional history exists Depression Screening, Annual for Pts 12 and Over 01/25/2024 01/24/2023 DIG LEVEL FOR MEDICATION MONITORING YEARLY 01/26/2024 01/25/2023, 04/17/2021, 03/09/2020, Additional history exists Albumin/Creatinine Ratio 01/27/2024 023, 01/14/2022, 08/14/2017, Additional history exists CKD HGB USE SMARTSET 97124 05/05/202405/05, 05/05/2023, 04/28/2023, Additional history exists COLONOSCOPY-EVERY [...] this encounter Medical Devices Implanted Type Area Long Wall Mining Machine Helper Device Identifier Shelf Expiration Date Model / Serial / Lot Screw T2 Alpha Lock 5x47.5mm - [id number] Implanted:Qty: 1 on 09/06/2022 by Sean Silva MD at [facility] Left: Leg Upper RICHELLE : TRAUMA 06/01/2032 [id number] / / [id number] documented as of this encounter Procedures Procedure Name Priority Date/Time Associated Diagnosis Comments URINALYSIS, REFLEX TO CULTURE Routine 05/12/2023 12:32 PM EDT 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) URINALYSIS, REFLEX TO CULTURE (NOT FOR NEUTROPENIC PATIENTS) Routine 05/12/2023 12:32 PM EDT 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) documented in this encounter Results * (ABNORMAL) URINALYSIS, REFLEX TO CULTURE (05/12/2023 12:32 PM EDT) Color, Urine Yellow Colorless, Light Yellow, Yellow, Dark Yellow 05/12/2023 11:15 PM EDT LABORATORY [facility] Clarity, Urine Clear Clear 05/12/2023 11:15 PM EDT LABORATORY C Glucose, Urine Negative Negative mg/dL 05/12/2023 11:15 PM EDT LABORATORY C Bilirubin, Urine Negative Negative 05/12/2023 11:15 PM EDT LABORATORY C Ketone, Urine Negative Negative mg/dL 05/12/2023 11:15 PM EDT LABORATORY C Specific [place], Urine 1.020 1.003 - 1.030 05/12/2023 11:15 PM EDT LABORATORY C Blood, Urine Negative Negative 05/12/2023 11:15 PM EDT LABORATORY C pH, Urine 6.0 5.0 - 7.5 Units 05/12/2023 11:15 PM EDT LABORATORY C Protein, Urine 30(A) Negative mg/dL 05/12/2023 11:15 PM EDT LABORATORY C Urobilinogen, Urine Normal Normal mg/dL 05/12/2023 11:15 PM EDT LABORATORY C Nitrite, Urine Negative Negative 05/12/2023 11:15 PM EDT LABORATORY C Esterase, Urine Negative Negative 05/12/2023 11:15 PM EDT LABORATORY C RBC, Urine 0-2 0 - 2 /HPF 05/12/2023 11:15 PM EDT LAB[facility]ORY [facility] WBC, Urine 0-2 0 - 2 /HPF 05/12/2023 11:15 PM EDT LABORATORY C Bacteria, Urine 0-25 0 - 25 /HPF 05/12/2023 11:15 PM EDT LABORATORY [facility] Culture, Urine 05/12/2023 11:15 PM EDT LABORATORY [facility] Comment:Culture not indicate d by urinalysis results Urine Urine specimen obtained by clean catch procedure / Unknown Non-blood Collection / Unknown 05/12/2023 12:32 PM EDT 05/12/2023 1:00 PM EDT Samson Conway PA-C LAB URINE ORDERA BLES LABORATORY [facility] [address] [place] [address] documented in this encounter Visit Diagnoses Diagnosis 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)- Primary documented in this encounter Advance Directives Documents on File Type Date Recorded 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
--- OUTSIDE RECORDS SUMMARY | 2023-08-22 03:55 | External Medical Summary ---
Author Name Unknown Address Unknown Organization K01:LABORATORY [facility] - [address] [facility] [place] [id number] Laboratory Report Ordering Provider Test Date Status APRIL MOLINA 05/17/2023 10:01:51 Final Observation Date Value Abnormality Reference (Units ) Status SYNC LEUKOCYTES IN BLOOD BY AUTOMATED COUNT 05/17/2023 10:01:51 4.39 4.00-10.80 (K/uL) Final Segs 05/17/2023 10:01:51 46.0 40.0-75.0 (%) Final Lymphs % 05/17/2023 10:01:51 28.7 18.0-42.0 (%) Final Monos 05/17/2023 10:01:51 16.6 Above high normal 1.0-11.0 (%) Final Eosinophils 05/17/2023 10:01:51 6.8 Above high normal 0.0-6.0 (%) Final Basos 05/17/2023 10:01:51 0.5 0.0-2.0 (%) Final Immature Granulocyte, Percent 05/17/2023 10:01:51 1.4 0.0-2.0 (%) Final Absolute Segs 05/17/2023 10:01:51 2.02 1.80-7.70 (K/uL) Final Lymphs, absolute 05/17/2023 10:01:51 1.26 1.00-4.80 (K/ul) Final Monos, Abs 05/17/2023 10:01:51 0.73 0.00-1.10 (K/uL) Final Eos, Abs 05/17/2023 10:01:51 0.30 0.00-0.70 (K/uL) Final Basos, Abs 05/17/2023 10:01:51 0.02 0.00-0.20 (K/uL) Final Immature Granulocytes, Number 05/17/2023 10:01:51 0.06 0.00-0.20 (K/uL) Final Performing Location LABORATORY [facility] - [facility] [place] [address]
--- OUTSIDE RECORDS SUMMARY | 2023-08-22 03:55 | External Medical Summary | Summary of Care ---
Author Name Unknown Organization [facility] Address [address] [place] [address] Phone [phone] Care Team Providers Care Reproductive Surgeon Name Role Phone Mureil Moreira MD Primary Care Prov ider Reason for Visit * Reason Comments [facility]: Maintenance Encounter Details Date Type Department Care Team Description 05/15/2023 Home Visit [facility], [facility] [address] [facility] [place] [address] Lila Brownlee, RN [address] [place] [address] Allergies Active Allergy Reactions Severity Noted [...] 75 MG Oral Tablet (pLAVix)Indications: Atherosclerosis of mi'kmaq coronary artery of mi'kmaq heart without angina pectoris TAKE ONE TABLET [...] episode. 14 Tablet 0 05/13/2023 3 Active Ondansetron HCl 4 MG Oral [...] CORONARY ATHEROSCLEROSIS OF UNSPECIFIED TYPE OF VESSEL, QAWALANGIN OR GRAFT Last Assessment & Plan: Stable. [...] infection without hematuria 202101/24/2023 Overview: [facility] to [facility] 04/20-04/29 urosepsis multi drug resistant [...] glenn ek & Lt. leg ; Rt. zoroastrianism 07/0207/18/2002 07/15/2015 Dyslipidemia, goal to be determined [...] Sign Reading Time Taken Comments Blood Pressure 144/68 05/15/2023 10:34 AM EDT Pulse 68 05/15/2023 10:34 AM EDT Temperature 36.8 C (98.2 F) 05/15/2023 10:34 AM E DT Respiratory Rate 18 05/15/2023 10:34 AM EDT Oxygen Saturation 93% 05/15/2023 10:34 AM EDT Inhaled Oxygen Concentration - - [...] Progress Notes * Lila Brownlee RN - 05/15/2023 10:18 AM EDT [facility] [employer]ter[employer] Tailor Visit Date: 05/15/2023 Time: 10:18 AM Name: Marshall Tello Sr. : 1935 Current Concerns: Patient seen for follow up- started on Valtrex for shingles. First dose yesterday. requests visit today- states patient has been hallucinating, sick in his stomach, vomited x 1 but nothing came up. Upon arrival, patient still in bed- awakens easy. Alert. Talks very little VS wnl Lungs clear bilaterally No sob noted No LE edema noted Voiding without difficulty- per report Bowels- has not had BM since Monday. Appetite varies Mobile lab obtained labs during visit. states she is giving ultram TID- to stop giving Ultram d/t hallucinations Will await CBC results. Problems/Symptoms: Review of Systems Constitutional: Negative. HENT: Negative. Eyes: Negative. Respiratory: Negative. Cardiovascular: Negative. Gastrointestinal: Negative. Endocrine: Negative. Genitourinary: Negative. Musculoskeletal: Positive for gait problem. Skin: Negative. Hematological: Negative. Psychiatric/Behavioral: Negative. Physical Exam: BP 144/68 (BP Site: Left Arm, BP Position: Sitting, BP Cuff Size: Regular) | Pulse 68 | Temp 36.8 C (98.2 F) (Tympanic) | Resp 18 | SpO2 93% Pain 0 Physical Exam Cardiovascular: Rate and Rhythm: Normal rate and regular rhythm. Pulses: Normal pulses. Heart sounds: Normal heart sounds. Pulmonary: Effort: Pulmonary effort is normal. Breath sounds: Normal breath sounds. Abdominal: General: Bowel sounds are normal. Palpations: Abdomen is soft. Musculoskeletal: General: Normal range of motion. Skin: General: Skin is warm and dry. Coloration: Skin is pale. Neurological: Mental Status: He is alert. Psychiatric: Mood and Affect: Mood normal. [facility]-10 Completed this Visit: No. Routine visit Treatment/Plan: Push fluids BRAT diet Hold Tramadol- APAP prn pain Continue Valtrex as prescribed Continue medications as prescribed Keep all upcoming MD appointments Fall precautions RN CM follow up in one day- phone Home Interventions Provided: Reinforced current Plan of Care, including self-management and medication regimen Patient Needs to Remember: Call [facility] with any medical concerns/ red flags Referrals Needed: n/a Follow Up: Is there cellular connectivity/connectivity in the home? Yes Does the patient have internet in the home? No Patient encouraged to call the intake phone number for all urgent but not emergent issues. Scheduled to follow up with patient in 1 day via phone- CBC results. Lila Julio RN 05/15/2023 10:18 AM documented in this encounter Plan of Treatment Upcoming Encounters Date Type Specialty Care Team Description 05/17/2023 Laboratory [facility] [address] [place] [address] 05/18/2023 Scheduled Telephone [facility] [place] [address] [place] [address] 05/19/2023 Laboratory Laboratory [facility] [address] [place] [address] 06/02/2023 Laboratory Laboratory [facility] [address] [place] [address] 06/16/2023 Laboratory Laboratory [facility] [address] [place] [address] 06/30/2023 Laboratory Laboratory [facility] [address] [place] [address] 07/11/2023 Cardiac Studies Cardiology [facility], [address] [address] 07/14/2023 Laboratory Laboratory [facility] [address] [place] [address] 07/17/2023 Office Visit Dermatology Pilar Joseph PA-C [address] [place] [address] [place] [address] 07/26/2023 Office Visit Family Medicine Muriel Moreira MD [address] [place] [address] [place] [address] 07/28/2023 Laboratory Laboratory Processing [facility], [facility] [address] [place] [address] 08/11/2023 Laboratory Laboratory Processing [facility], [facility] [address] [place] [address] 08/25/2023 Laboratory Laboratory Processing [facility], [facility] [address] [place] [address] 08/29/2023 Office Visit Cardiology Chris Choudhury PA-C [address] [place] [address] 09/08/2023 Laboratory Laboratory Processing [facility], [facility] [address] [place] [address] 09/22/2023 Laboratory Laboratory Processing [facility], [facility] Draw [address] [place], [place] [phone] Scheduled Procedures Name Priority Associated Diagnoses Date/Ti [...] COPD 09/06/2023 09/06/2022 CKD PHOS USE SMARTSET 38907 09/07/2023 120 04/2022, 09/05/2022, 01/14/2022, Additional history exists Depression Screening, Annual for Pts 12 and Over 01/25/2024 01/24/2023 DIG LEVEL FOR MEDICATION MONITORING YEARLY 01/26/2024 01/25/2023, 04/17/2021, 03/09/2020, Additional history exists Albumin/Creatinine Ratio 01/27/2024 023, 01/14/2022, 08/14/2017, Additional history exists CKD HGB USE SMARTSET 69938 05/15/202405/15, 05/05/2023, 05/05/2023, Additional history exists COLONOSCOPY-EVERY [...] this encounter Medical Devices Implanted Type Area Transportation Solutions Manager Device Identifier Shelf Expiration Date Model / Serial / Lot Screw T2 Alpha Lock 5x47.5mm - [id number] Implanted:Qty: 1 on 09/06/2022 by Sean Silva MD at OR [facility] Left: Leg Upper RICHELLE : TRAUMA 06/01/2032 [id number] / / [id number] documented as of this encounter Advance Directives Documents on File Type Date Recorded 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
--- OUTSIDE RECORDS SUMMARY | 2023-08-22 03:55 | External Medical Summary | Summary of Care ---
Author Name Unknown Organization [facility] Address [address] [place] [address] Phone [phone] Care Team Providers Care Capsule Filling Machine Operator Name Role Phone Muriel Moreira MD Primary Care Prov ider Encounter Details Date Type Department Care Team Description 05/13/2023 Telephone Family Practice [address], [address] [place] [address] Ian Retana MD [address] [id number] Allergies Active Allergy Reactions Severity Noted Date [...] per day 34 Tablet 11 05/13/2022 Active Fluticasone-Salmetero l 250-50 MCG/ACT Inhalation Aerosol [...] 75 MG Oral Tablet (pLAVix)Indications:A therosclerosis of [place] coronary artery of [place] heart without angina pectoris TAKE ONE TABLET [...] episode. 14 Tablet 0 05/13/2023 05/20/2023 Active documented as of this encounter (statuses [...] Overview: [employer] Product Surveillance Registry PI: Kylah Lilyl IV, MD Diagnosis changed due to Research [...] CORONARY ATHEROSCLEROSIS OF UNSPECIFIED TYPE OF VESSEL, [place] OR GRAFT Last Assessment & Plan: Stable. [...] infection without hematuria 202101/24/2023 Overview: Xavier to [facility] 04/20-04/29 urosepsis multi drug resistant E. Coli [...] Encounter - Muriel Marrero MD - 05/15/2023 2:18 PM EDT Noted * Telephone Encounter - Ian Retana MD - 05/13/2023 10:54 AM EDT Reviewed images from [facility] RN- lesions on left mid back, appears more like shingles rash. escript for valacyclovir 1gm bid for 7 days sent to [facility] per pt request; recomm contact precautions; If pain worsens despite tramadil, need gabapentin documented in this encounter Plan of Treatment Upcoming Encounters Date Type Specialty Care Team Description 05/19/2023 Laboratory Laboratory Processing [facility] [address] [place] [address] 06/02/2023 Laboratory Laboratory [facility] [address] [place] [address] 06/16/2023 Laboratory Laboratory Processing [facility] [address] [place] [address] 06/30/2023 Laboratory Laboratory Processing [facility], [facility] [address] [place] [address] 07/11/2023 Cardiac Studies Cardiology [address] [address] 07/14/2023 Laboratory Laboratory Processing [facility], [facility] [address] [place] [address] 07/17/2023 Office Visit Dermatology Pilar Joseph PA-C [address] [place] [address] [place] [address] 07/26/2023 Office Visit Family Medicine Emmanuel Marrero, Muriel Menon MD [address] [place] [address] [place] [address] 07/28/2023 Laboratory Laboratory Processing [facility] [address] [place] [address] 08/11/2023 Laboratory Laboratory Processing [facility], [facility] Home Draw [address] [place] [address] 08/25/2023 Laboratory Laboratory Processing [facility], [facility] Draw [address] [place] [address] 08/29/2023 Office Visit Cardiology Chris Choudhury PA-C [address] [place] [address] 09/08/2023 Laboratory Laboratory Processing [facility], [facility] Draw [address] [place] [address] 09/22/2023 Laboratory Laboratory Processing [facility] [address] [place] [address] Scheduled Procedures Name Priority Associated Diagnoses Date/Ti [...] COPD 09/06/2023 09/06/2022 CKD PHOS USE SMARTSET 07351 09/07/2023 12/0 04/2022, 09/05/2022, 01/14/2022, Additional history exists Depression Screening, Annual for Pts 12 and Over 01/25/2024 01/24/2023 DIG LEVEL FOR MEDICATION MONITORING YEARLY 01/26/2024 01/25/2023, 04/17/2021, 03/09/2020, Additional history exists Albumin/Creatinine Ratio 01/27/2024 023, 01/14/2022, 08/14/2017, Additional history exists CKD HGB USE SMARTSET 11883 05/05/202405/05, 05/05/2023, 04/28/2023, Additional history exists COLONOSCOPY-EVERY [...] this encounter Medical Devices Implanted Type Area Assisted Living Nursing Director Device Identifier Shelf Expiration Date Model / Serial / Lot Screw T2 Alpha Lock 5x47.5mm - [id number] Implanted:Qty: 1 on 09/06/2022 by Sean Silva MD at OR [facility] Left: Leg Upper RICHELLE : TRAUMA 06/01/2032 [id number] / / [id number] documented as of this encounter Visit Diagnoses Diagnosis Herpes zoster without complication- Primary Herpes zoster without mention of complication documented in this encounter Advance Directives Documents on File Type Date Recorded Patient Project Technician Expl anation POLST 10/17/2022 [place] OR [facility] FOR LIFE-SUSTAINING TREATMENT POLST 09/10/2022 [place] [facility] FOR LIFE-SUSTAINING TREATMENT Latest Code [...] Agen t (per Health Care Power of Ingot Passer document) Reji Tello Dotts Adult Child First Alterna te Health Care Agent (per Health Care Power of Ingot Passer document) Bowen Tello Adult Child First Alternate Health Care Agent (per Health Care Power of Ingot Passer document) Care Teams Capsule Filling Machine Operator Relationship Specialty Start Date End Date Muriel Moreira MD [address] [place] [address] [place] [address] [phone] PCP - General Family Medicine 06/26/18 documented as of this encounter
--- OUTSIDE RECORDS SUMMARY | 2023-08-22 03:55 | External Medical Summary | Summary of Care ---
Author Name Unknown Organization [facility] Address [address] [place] [address] Phone [phone] Care Team Providers Care Lockstitch Waistline Joiner Name Role Phone Muriel Moreira MD Primary Care Prov ider Reason for Referral * Ancillary Services (Within 3 days (urgent)) - Authorized Specialty Diagnoses / Procedures Referred By Contac t Referred To Contact Vehicle Window Tinter Diagnoses Anemia, unspecified type Samson Conway PA-C [address] [place] [address] Referral ID Status Reason Start Date Expiration Date Visits Requested Visits Authorized [id number] Authorized Ancillary Services Required 05/16/[phone] Question Answer Referral Priority Within 3 days (urgent) Comments Is Patient homebound? Yes All sections of this form must be filled out completely. Forms with missing or illegible information will be returned for completion. This form should not be modified in any way. Forms that have been modified will be returned. This form may not be submitted by a home health agency. It must be complete and submitted by the ordering provider. One full business day lead time is required and service will be scheduled based on the next service day for the [facility] Home Phlebotomy does not service every geographical location on a daily basis. Contact [facility] Client Services at to find out service days for a specific location. [facility] [address] [facility] [place] [address] Pearl López M.D. Director Patient Name: Marshall Tello Sr. : 1935 Sex: male Address [address] [place] [id number] Provider: None? Muriel Chowdary MD? 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 0 09/16/2022 Active Acetaminophen 500 MG Oral TabletIndications:Can cer related pain Take 2 Tablets by mouth 2 times a day with morning and evening meals. 100 Tablet 0 10/28/2022 Active Clopidogrel Bisulfate 75 MG Oral Tablet (pLAVix)Indications:A therosclerosis of [place] coronary artery of [place] heart without angina pectoris TAKE ONE TABLET [...] CORONARY ATHEROSCLEROSIS OF UNSPECIFIED TYPE OF VESSEL, [place] OR GRAFT Last Assessment & Plan: Stable. [...] infection without hematuria 202101/24/2023 Overview: Xavier to [facility] 04/20-04/29 urosepsis multi drug resistant E. Coli [...] [facility] [address] [place] [address] 05/19/2023 Laboratory Laboratory Processing [facility] [address] [place] [address] 06/02/2023 Laboratory Laboratory Processing [facility] [address] [place] [address] 06/16/2023 Laboratory Laboratory Processing [facility] [address] [place] [address] 06/30/2023 Laboratory Laboratory Processing [facility] [address] [place] [address] 07/11/2023 Cardiac Studies Cardiology [facility] [address] [place] [address] 07/14/2023 Laboratory Laboratory Processing [facility] [address] [place] [address] 07/17/2023 Office Visit Dermatology Pilar Joseph PA-C [address] [place] [address] [place] [address] 07/26/2023 Office Visit Family Medicine Muriel Moreira MD [address] [place] [address] [place] [address] 07/28/2023 Laboratory Laboratory Processing [facility] [address] [place] [address] 08/11/2023 Laboratory Laboratory Processing [facility] [address] [place] [address] 08/25/2023 Laboratory Laboratory Processing [facility] [address] [place] [address] 08/29/2023 Office Visit Cardiology Chris Choudhury PA-C [address] [place] [address] 09/08/2023 Laboratory Laboratory Processing [facility] [address] [place] [address] 09/22/2023 Laboratory Laboratory Processing [facility] [address] [place] [address] Scheduled Orders Name Type Priority Associated Diagnoses Orde r Schedule CBC WITH WBC DIFFERENTIAL Lab Routine Anemia, unspecified type Expected: 05/17/2023 (Approximate), Expires: 05/16/2024 Scheduled Procedures Name Priority Associated Diagnoses Date/Ti me COLONOSCOPY FLEXIBLE PROXIMA L DIAGNOSTIC Recall History of colonic polyps Scheduled Referrals Name Type Priority Associated Diagnoses Orde r Schedule HOME PHLEBOTOMY REFERRAL OP Referral Within 3 days (urgent) Anemia, unspecified type Ordered: 05/16/2023 Health Maintenance Due Date Last Done Comments [...] COPD 09/06/2023 09/06/2022 CKD PHOS USE SMARTSET 20911 09/07/2023 12/0 04/2022, 09/05/2022, 01/14/2022, Additional history exists Depression Screening, Annual for Pts 12 and Over 01/25/2024 01/24/2023 DIG LEVEL FOR MEDICATION MONITORING YEARLY 01/26/2024 01/25/2023, 04/17/2021, 03/09/2020, Additional history exists Albumin/Creatinine Ratio 01/27/2024 023, 01/14/2022, 08/14/2017, Additional history exists CKD HGB USE SMARTSET 48599 05/15/202405/15, 05/05/2023, 05/05/2023, Additional history exists COLONOSCOPY-EVERY [...] this encounter Medical Devices Implanted Type Area School Librarian Device Identifier Shelf Expiration Date Model / Serial / Lot Screw T2 Alpha Lock 5x47.5mm - [id number] Implanted:Qty: 1 on 09/06/2022 by Sean Silva MD at [facility] Left: Leg Upper RICHELLE : TRAUMA 06/01/2032 [id number] / / [id number] documented as of this encounter Visit Diagnoses Diagnosis Anemia, unspecified type- Primary documented in this encounter Advance Directives Documents on File Type Date Recorded Patient Plant Anatomy Teacher Expl anation POLST 10/17/2022 [place] OR DERS [...] Agen t (per Health Care Power of Database Administrator document) Reji Omer Dotts Adult Child First Alterna te Health Care Agent (per Health Care Power of Database Administrator document) Bowen Palaciosmel Adult Child First Alternate Health Care Agent (per Health Care Power of Database Administrator document) Care Teams Lockstitch Waistline Joiner Relationship Specialty Start Date End Date Muriel Moreira MD [address] [place] [address] [place] [address] [address] PCP - General Family Medicine 06/26/18 documented as of this encounter
--- OUTSIDE RECORDS SUMMARY | 2023-08-22 03:55 | External Medical Summary | Summary of Care ---
Author Name Unknown Organization [facility] Address [address] [place] [address] Phone [phone] Care Team Providers Care Supervisor Hide House Name Role Phone Muriel Moreira MD Primary Care Prov ider Reason for Visit * Reason Onset Date Comments [facility]: Maintenance 05/18/2023 Encounter Details Date Type Department Care Team Description 05/18/2023 Telephone [facility] [address] [place], [place] [phone] Samson Conway PA-C [address] [place] [address] [facility]: Maintenance Allergies Active Allergy [...] 75 MG Oral Tablet (pLAVix)Indications:A therosclerosis of [place] coronary artery of [place] heart without angina pectoris TAKE ONE TABLET [...] CORONARY ATHEROSCLEROSIS OF UNSPECIFIED TYPE OF VESSEL, [place] OR GRAFT Last Assessment & Plan: Stable. [...] infection without hematuria 202101/24/2023 Overview: Xavier to [facility] 04/20-04/29 urosepsis multi drug resistant [...] - 05/18/2023 1:23 PM EDT Call to [facility] they are able to transfuse patient 2 units PRB tomorrow at 8:30am. I spoke with she is aware, she is going to relay information to son Bowen as well. is reports patient is scheduled for mobile lab tomorrow. I have cancelled visit and will have MTU draw prior to infusion. I have faxed order to [facility]U at [phone]. CASTRO Senior documented in this encounter Plan of Treatment Upcoming Encounters Date Type Specialty Care Team Description 06/02/2023 Laboratory Laboratory Processing [facility] [address] [place] [address] 06/16/2023 Laboratory Laboratory Processing [facility] [address] [place] [address] 06/30/2023 Laboratory Laboratory Processing [facility] [address] [place] [address] 07/11/2023 Cardiac Studies Cardiology [address] [address] 07/14/2023 Laboratory Laboratory Processing [facility] [address] [place] [address] 07/17/2023 Office Visit Dermatology Pilar Joseph PA-C [address] [place] [address] [place] [address] 07/26/2023 Office Visit Family Medicine Muriel Moreira MD [address] [place] [address] [place] [address] 07/28/2023 Laboratory Laboratory Processing [facility] [address] [place] [address] 08/11/2023 Laboratory Laboratory Processing [facility] [address] [place] [address] 08/25/2023 Laboratory Laboratory Processing [facility], [facility] Mobile Home Draw [address] [place] [address] 08/29/2023 Office Visit Cardiology Chris Choudhury PA-C [address] [place] [address] 09/08/2023 Laboratory Laboratory Processing [facility], [facility] Mobile Home Draw [address] [place] [address] 09/22/2023 Laboratory Laboratory Processing [facility], [facility] Home Draw [address] [place] [address] Scheduled Orders Name Type Priority Associated Diagnoses [...] COPD 09/06/2023 09/06/2022 CKD PHOS USE SMARTSET 50495 09/07/2023 12/0 04/2022, 09/05/2022, 01/14/2022, Additional history exists Depression Screening, Annual for Pts 12 and Over 01/25/2024 01/24/2023 DIG LEVEL FOR MEDICATION MONITORING YEARLY 01/26/2024 01/25/2023, 04/17/2021, 03/09/2020, Additional history exists Albumin/Creatinine Ratio 01/27/2024 023, 01/14/2022, 08/14/2017, Additional history exists CKD HGB USE SMARTSET 63027 05/17/202405/17, 05/17/2023, 05/15/2023, Additional history exists COLONOSCOPY-EVERY [...] this encounter Medical Devices Implanted Type Area Administrative Hearing Officer Device Identifier Shelf Expiration Date Model / Serial / Lot Screw T2 Alpha Lock 5x47.5mm - [id number] Implanted:Qty: 1 on 09/06/2022 by Sean Silva MD at [facility] Left: Leg Upper RICHELLE : TRAUMA 06/01/2032 [id number] / / [id number] documented as of this encounter Visit Diagnoses Diagnosis Anemia, unspecified type- Primary documented in this encounter Advance Directives Documents on File Type Date Recorded Patient Supervisor Ride Assembly Expl anation POLST 10/17/2022 [place] OR [facility] FOR LIFE-SUSTAINING TREATMENT POLST 09/10/2022 [place] OR [facility] FOR LIFE-SUSTAINING TREATMENT Latest Code [...] Agen t (per Health Care Power of Fruit Harvest Machine Operator document) Reji Tello Dotts Adult Child First Alterna te Health Care Agent (per Health Care Power of Fruit Harvest Machine Operator document) Bowen Tello Adult Child First Alternate Health Care Agent (per Health Care Power of Fruit Harvest Machine Operator document) Care Teams Supervisor Hide House Relationship Specialty Start Date End Date Muriel Moreira MD [address] [place] [address] [place] [address] PCP - General Family Medicine 06/26/18 documented as of this encounter
--- OUTSIDE RECORDS SUMMARY | 2023-08-22 03:56 | External Medical Summary | Summary of Care ---
Author Name Unknown Organization [facility] Address [address] [place] [address] Phone [phone] Care Team Providers Care Upholstery Handler Name Role Phone Muriel Moreira MD Primary Care Prov ider Reason for Visit * Reason Comments [facility]: Acute Encounter Details Date Type Department Care Team Description 05/13/2023 Home Visit [facility], [facility] [address] [facility] [place] [address] [facility], Nurse [facility] [address] [facility] [place] [address] Allergies Active Allergy Reactions Severity Noted Date Comments James Inhibitors 09/10/2002 cough on prinivil Hydrocodone 09/05/2022 Family states AMS change when taken Prednisone 05/26/2011 Blisters in throat Sulfa Antibiotics 03/19/2001 dysurea documented as of this encounter (statuses as of 05/13/2023) Medications Medication Sig Dispensed Refills Start Date [...] 75 MG Oral Tablet (pLAVix)Indications:At herosclerosis of semin[place] coronary artery of seminole heart without angina pectoris TAKE ONE TABLET [...] every 6 hours as needed. 0 Active documented as of this encounter (statuses as of 05/13/2023) Active Problems Patient Care Coordination No te [...] Assessment & Plan: BP at goal -Continue kalli randall Asthma, moderate persistent 07/12/2011 Tachy-lorna syndrome 02/08/2010 Dyslipidemia, goal LDL below 70 09/10/20 Overview: Per Lipid Taxonomy. erectile dysfunction 08/19/2008 BPH without obstruction/lower urinary tr act symptoms 04/24/2006 Last Assessment & Plan: Urinating without difficulty -Continue Dutesteride Elevated prostate specific antigen (PSA) 02/03/2004 CORONARY ATHEROSCLEROSIS OF UNSPECIFIED TYPE OF VESSEL, LAC [place] OR GRAFT Last Assessment & Plan: Stable. 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 documented as of this encounter (statuses as of 05/13/2023) Resolved Problems Problem Noted Date Resolved Date [...] as of this encounter (statuses as of 05/13/2023) Immunizations Name Administration Dates Next Due COVID-19 [...] Sign Reading Time Taken Comments Blood Pressure 136/64 05/13/2023 10:18 AM EDT Pulse 70 05/13/2023 10:18 AM EDT Temperature 37.3 C (99.2 F) 05/13/2023 10:18 AM E DT Respiratory Rate 18 05/13/2023 10:18 AM EDT Oxygen Saturation 93% 05/13/2023 10:18 AM EDT Inhaled Oxygen Concentration - - [...] as of this encounter Progress Notes * Vero Patricio RN - 05/13/2023 9:08 AM EDT Images from the original note were not included. [facility] Loss Control ManagerHealth Education Specialist Visit Date: 05/13/2023 Time: 9:08 AM Name: Marshall Tello Sr. : 1935 Current Concerns: Communication Note Name: Marshall Tello Sr. Situation: called in to [facility] to report rash and increased pain of his upper back - concerned for shingles Background: 88 y/o male, seen by RNCM yesterday for episodes of diarrhea, moaning - reported behavior indicative of when his hgb drops RN was unable to obtain blood specimen yesterday - Mobile lab to go out Monday RN did obtain urine specimen yesterday d/t hx of UTI's - UA negative and no culture indicated Assessment: VS - 99.2 - 70 - 18 - 136/64 - 93% on room air Pt lying in bed, alert, smiling Very CHENEGA which makes communication difficult He keeps saying "good" and giving thumbs up Shakes head "no" to pain now but reports he was moaning and saying his back hurt terribly thismorning. She gave him a dose of 50mg Tramadol and he slept afterwards Recommendation: TT to sign painter apprentice Dr Octavio Retana with assessment and pictures Appears to be shingles rash - script for Valcyclovir called in to [facility] pharmacy and son educated on contact precautions Problems/Symptoms: Review of Systems HENT: Positive for hearing loss. Skin: Positive for rash (left upper back). Physical Exam: BP 136/64 | Pulse 70 | Temp 37.3 C (99.2 F) | Resp 18 | SpO2 93% Pain 0 Physical Exam Constitutional: General: He is not in acute distress. Cardiovascular: Rate and Rhythm: Normal rate and regular rhythm. Pulses: Normal pulses. Heart sounds: Normal heart sounds. Pulmonary: Effort: Pulmonary effort is normal. Skin: General: Skin is warm and dry. Neurological: Mental Status: He is alert. [facility] Completed this Visit: Yes. [facility]: Reason Completed: Status post acute event/change in baseline [facility]-10 Interventions: Fall education provided, reviewed/provided Fall brochure Treatment/Plan: Continue meds as prescribed APAP every 8 hours as needed for fever/discomfort (already takes every morning and night routinely) Tramadol every 6 hrs prn severe pain Contact precautions Valcyclovir as ordered F/u call in 24 hrs Home Interventions Provided: Home Intervention: Other; Evaluation Consulted PCP/Specialist Reinforced current Plan of Care, including self-management and medication regimen Patient Needs to Remember: Call [facility] at with any new or worsening health concerns or problems, red flag symptoms. Referrals Needed: Other none Follow Up: Is there cellular connectivity/connectivity in the home? No Does the patient have internet in the home? Yes Patient encouraged to call the intake phone number for all urgent but not emergent issues. Scheduled to follow up with patient in 24 hrs. Vero Patricio RN 05/13/2023 9:08 AM documented in this encounter Plan of Treatment Upcoming Encounters Date Type Specialty Care Team Description 05/14/2023 Scheduled Telephone [facility], Nurse [facility] [address] [place] [address] 05/15/2023 Laboratory Laboratory Processing [facility], [facility] Mobile Home Draw [address] [place] [address] 05/15/2023 Home Visit [facility] Lila Brownlee RN [address] [place] [address] 05/19/2023 Laboratory Laboratory Processing [facility], [facility] Home Draw [address] [place] [address] 06/02/2023 Laboratory Laboratory Processing [facility], [facility] Mobile Home Draw [address] [place] [address] 06/16/2023 Laboratory Laboratory Processing [facility], [facility] Mobile Home Draw [address] [place] [address] 06/30/2023 Laboratory Laboratory Processing [facility], [facility] Mobile Home Draw [address] [place] [address] 07/11/2023 Cardiac Studies [facility] [address] [facility] [place] [address] 07/14/2023 Laboratory [facility], [facility] Draw [address] [place] [address] 07/17/2023 Office Visit Dermatology Pilar Joseph PA-C [address] [place] [address] [place] [address] 07/26/2023 Office Visit Family Medicine Muriel Moreira MD [address] [facility] [place] [address] 07/28/2023 Laboratory [facility], [facility] Draw [address] [place] [address] 08/11/2023 Laboratory [facility] Draw [address] [place] [address] 08/25/2023 Laboratory [facility] Draw [address] [place] [address] 08/29/2023 Office Visit Cardiology Chris Choudhury PA-C [address] [place] [address] 09/08/2023 Laboratory Laboratory [facility] Draw [address] [place] [address] 09/22/2023 Laboratory [facility], [facility] Draw [address] [place], [place] [id number] Scheduled Procedures Name Priority Associated Diagnoses Date/Ti [...] COPD 09/06/2023 09/06/2022 CKD PHOS USE SMARTSET 77550 09/07/2023 120 04/2022, 09/05/2022, 01/14/2022, Additional history exists Depression Screening, Annual for Pts 12 and Over 01/25/2024 01/24/2023 DIG LEVEL FOR MEDICATION MONITORING YEARLY 01/26/2024 01/25/2023, 04/17/2021, 03/09/2020, Additional history exists Albumin/Creatinine Ratio 01/27/2024 023, 01/14/2022, 08/14/2017, Additional history exists CKD HGB USE SMARTSET 86883 05/05/202405/05, 05/05/2023, 04/28/2023, Additional history exists COLONOSCOPY-EVERY [...] this encounter Medical Devices Implanted Type Area Computer Systems Security Administrator Device Identifier Shelf Expiration Date Model / Serial / Lot Screw T2 Alpha Lock 5x47.5mm - [id number] Implanted:Qty: 1 on 09/06/2022 by Sean Silva MD at [facility] Left: Leg Upper RICHELLE : TRAUMA 06/01/2032 [id number] / / [id number] documented as of this encounter Advance Directives Documents on File Type Date Recorded Patient Lipstick Molder Expl anation POLST 10/17/2022 [place] DERS FOR LIFE-SUSTAINING TREATMENT POLST 09/10/2022 [place] DERS FOR LIFE-SUSTAINING TREATMENT Latest Code [...] Agen t (per Health Care Power of Reviewer Sales document) Reji Tello Dotts Adult Child First Alterna te Health Care Agent (per Health Care Power of Reviewer Sales document) Bowen Tello Adult Child First Alternate Health Care Agent (per Health Care Power of Reviewer Sales document) Care Teams Upholstery Handler Relationship Specialty Start Date End Date Muriel Moreira MD [address] [place] [address] [place] [address] PCP - General Family Medicine 06/26/18 documented as of this encounter
--- OUTSIDE RECORDS SUMMARY | 2023-08-22 03:56 | External Medical Summary | Summary of Care ---
Author Name Unknown Organization [facility] Address [address] [place] [address] Phone [phone] Care Team Providers Care Flame Burner Name Role Phone Muriel Moreira MD Primary Care Prov ider Encounter Details Date Type Department Care Team Description 05/13/2023 Telephone Family Practice [address], [address] [place] [address] Ian Retana MD [address] [place] [address] Allergies Active Allergy Reactions Severity Noted Date [...] 75 MG Oral Tablet (pLAVix)Indications:A therosclerosis of [place] coronary artery of [place] heart without angina pectoris TAKE ONE TABLET [...] CORONARY ATHEROSCLEROSIS OF UNSPECIFIED TYPE OF VESSEL, MARSHALL OR GRAFT Last Assessment & Plan: Stable. [...] without hematuria 202101/24/2023 Overview: Xavier to [facility] 04/20-04/29 urosepsis multi drug resistant [...] glenn ek & Lt. leg ; Rt. jehovah's witness 07/0207/18/2002 07/15/2015 Dyslipidemia, goal to be determined [...] encounter Miscellaneous Notes * Telephone Encounter - Ian Retana MD - 05/13/2023 10:54 AM EDT Reviewed images from [facility] RN- lesions on left mid back, appears more like shingles rash. escript for valacyclovir 1gm bid for 7 days sent to [facility] per pt request; recomm contact precautions; If pain worsens despite tramadil, need gabapentin documented in this encounter Plan of Treatment Upcoming Encounters Date Type Specialty Care Team Description 05/14/2023 Scheduled Telephone [facility], Nurse [address] [place] [address] 05/15/2023 Laboratory Laboratory [facility], [facility] Mobile Home Draw [address] [place] [address] 05/15/2023 Home Visit [facility] Lila Brownlee, RN [address] [place] [address] 05/19/2023 Laboratory Laboratory [facility] Mobile Home Draw [address] [place] [address] 06/02/2023 Laboratory Laboratory [facility] Home Draw [address] [place] [address] 06/16/2023 Laboratory Laboratory [facility], [facility] Home Draw [address] [place] [address] 06/30/2023 Laboratory [facility], [facility] Home Draw [address] [place] [address] 07/11/2023 Cardiac Studies Cardiology [address] [address] 07/14/2023 Laboratory Laboratory [facility], [facility] Home Draw [address] [place] [address] 07/17/2023 Office Visit Dermatology Pilar Joseph PA-C [address] [place] [address] [place] [address] 07/26/2023 Office Visit Family Medicine Muriel Moreira MD [address] [place] [address] [place] [address] 07/28/2023 Laboratory Laboratory Processing [facility] Mobile Home Draw [address] [place] [address] 08/11/2023 Laboratory Laboratory Processing [facility] Draw [address] [place] [address] 08/25/2023 Laboratory Laboratory Processing [facility] Mobile Home Draw [address] [place] [address] 08/29/2023 Office Visit Cardiology Chris Choudhury PA-C [address] [place] [address] 09/08/2023 Laboratory Laboratory Processing [facility] Mobile Home Draw [address] [place] [address] 09/22/2023 Laboratory Laboratory Processing [facility] Mobile Home Draw [address] [place] [address] Scheduled Procedures Name Priority Associated Diagnoses Date/Ti [...] COPD 09/06/2023 09/06/2022 CKD PHOS USE SMARTSET 81603 09/07/2023 12/0 04/2022, 09/05/2022, 01/14/2022, Additional history exists Depression Screening, Annual for Pts 12 and Over 01/25/2024 01/24/2023 DIG LEVEL FOR MEDICATION MONITORING YEARLY 01/26/2024 01/25/2023, 04/17/2021, 03/09/2020, Additional history exists Albumin/Creatinine Ratio 01/27/2024 023, 01/14/2022, 08/14/2017, Additional history exists CKD HGB USE SMARTSET 75175 05/05/202405/05, 05/05/2023, 04/28/2023, Additional history exists COLONOSCOPY-EVERY [...] this encounter Medical Devices Implanted Type Area Maintainer Plant Device Identifier Shelf Expiration Date Model / Serial / Lot Screw T2 Alpha Lock 5x47.5mm - [id number] Implanted:Qty: 1 on 09/06/2022 by Sean Silva MD at [facility] Left: Leg Upper RICHELLE : TRAUMA 06/01/2032 [id number] / / [id number] documented as of this encounter Visit Diagnoses Diagnosis Herpes zoster without complication- Primary Herpes zoster without mention of complication documented in this encounter Advance Directives Documents on File Type Date Recorded Patient Gas Meter Installer Expl anation POLST 10/17/2022 [place] OR DERS [...] Agen t (per Health Care Power of Billet Heater document) Reji Tello Dotts Adult Child First Alterna te Health Care Agent (per Health Care Power of Billet Heater document) Bowen Tello Adult Child First Alternate Health Care Agent (per Health Care Power of Billet Heater document) Care Teams Flame Burner Relationship Specialty Start Date End Date Muriel Moreira MD [address] [place] [address] [place] [address] PCP - General Family Medicine 06/26/18 documented as of this encounter
--- OUTSIDE RECORDS SUMMARY | 2023-08-22 03:56 | External Medical Summary | Summary of Care ---
Author Name Unknown Organization [facility] Address [address] [place] [place] [address] Phone [phone] Care Team Providers Care Software Installer Name Role Phone Muriel Moreira MD Primary Care Prov ider Reason for Visit * Reason Onset Date Comments [facility]: Maintenance 05/14/2023 Encounter Details Date Type Department Care Team Description 05/14/2023 Scheduled Telephone [facility], [facility] [address] [facility] [place] [address] [facility], Nurse [facility] [address] [facility] [place] [address] Allergies Active Allergy Reactions Severity Noted Date Comments James Inhibitors 09/10/2002 cough on prinivil Hydrocodone 09/05/2022 Family states AMS change when taken Prednisone 05/26/2011 Blisters in throat Sulfa Antibiotics 03/19/2001 dysurea documented as of this encounter (statuses as of 05/14/2023) Medications Medication Sig Dispensed Refills Start Date [...] 75 MG Oral Tablet (pLAVix)Indications:A therosclerosis of [place] coronary artery of [place] heart without angina pectoris TAKE ONE TABLET [...] as of this encounter (statuses as of 05/14/2023) Active Problems Patient Care Coordination No te [...] CORONARY ATHEROSCLEROSIS OF UNSPECIFIED TYPE OF VESSEL, IGIUGIG OR GRAFT Last Assessment & Plan: Stable. 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 She is aware UA results negative. Started Valacyclovir for shingles of left upper back. reports he did have some back pain last night and she gave him Tramadol, which is effective. She reports the rash is a little darker red this morning but otherwise no change. She reports he is smiling at her this morning. She reports he didn't drink much yesterday. Encouraged water while on the phone and he did drink - advised her to offer fluids every 1-2 hours during the day to make sure he is getting enough fluids. No other concerns at this time[facility] scheduled for tomorrow. aware to call with any worsening of condition/red flags. documented in this encounter Plan of Treatment Upcoming Encounters Date Type Specialty Care Team Description 05/15/2023 Laboratory Laboratory Processing [facility] Mobile Home Draw [address] [place] [address] 05/15/2023 Home Visit [facility] Lila rBownlee, SANKET [address] [place] [address] 05/19/2023 Laboratory Laboratory Processing [facility], [facility] Mobile Home Draw [address] [place] [address] 06/02/2023 Laboratory Laboratory Processing [facility], [facility] Mobile Home Draw [address] [place] [address] 06/16/2023 Laboratory Laboratory Processing [facility] Mobile Home Draw [address] [place] [address] 06/30/2023 Laboratory Laboratory Processing [facility], [facility] Mobile Home Draw [address] [place] [address] 07/11/2023 Cardiac Studies Cardiology [facility], Pacer [address] [address] 07/14/2023 Laboratory Laboratory Processing [facility], [facility] Mobile Home Draw [address] [place] [address] 07/17/2023 Office Visit Dermatology Pilar Joseph PA-C [address] [place] [address] [place] [address] 07/26/2023 Office Visit Family Medicine Emmanuel Marrero, Muriel Menon MD [address] [place] [address] [place] [address] 07/28/2023 Laboratory Laboratory Processing [facility], [facility] Mobile Home Draw [address] [place] [address] 08/11/2023 Laboratory Laboratory Processing [facility] Mobile Home Draw [address] [place] [address] 08/25/2023 Laboratory Laboratory Processing [facility] Mobile Home Draw [address] [place] [address] 08/29/2023 Office Visit Cardiology Chris Choudhury PA-C [address] [place] [address] 09/08/2023 Laboratory Laboratory Processing [facility] Mobile Home Draw [address] [place] [address] 09/22/2023 Laboratory Laboratory Processing [facility] Mobile Home Draw [address] [place], [place] [address] Scheduled Procedures Name Priority Associated Diagnoses Date/Ti [...] COPD 09/06/2023 09/06/2022 CKD PHOS USE SMARTSET 87715 09/07/202304/2022, 09/05/2022, 01/14/2022, Additional history exists Depression Screening, Annual for Pts 12 and Over 01/25/2024 01/24/2023 DIG LEVEL FOR MEDICATION MONITORING YEARLY 01/26/2024 01/25/2023, 04/17/2021, 03/09/2020, Additional history exists Albumin/Creatinine Ratio 01/27/2024 023, 01/14/2022, 08/14/2017, Additional history exists CKD HGB USE SMARTSET 17891 05/05/202405/05, 05/05/2023, 04/28/2023, Additional history exists COLONOSCOPY-EVERY [...] this encounter Medical Devices Implanted Type Area Emergency Services Professional Device Identifier Shelf Expiration Date Model / Serial / Lot Screw T2 Alpha Lock 5x47.5mm - [id number] Implanted:Qty: 1 on 09/06/2022 by Sean Silva MD at [facility] Left: Leg Upper RICHELLE : TRAUMA 06/01/2032 [id number] / / [id number] documented as of this encounter Advance Directives Documents on File Type Date Recorded 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 Home Theater 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 anation POLST 10/17/2022 [place] OR DERS [...] Name Relationship Healthcare Agent Relationship Communication Remedios quirosmel Spouse Health Care Agen t (per Health Care Power of Fitness Technician document) Reji Tello Dotts Adult Child First Alterna te Health Care Agent (per Health Care Power of Fitness Technician document) Bowen Tello Adult Child First Alternate Health Care Agent (per Health Care Power of Fitness Technician document) Care Teams Software Installer Relationship Specialty Start Date End Date Muriel Moreira MD [address] [place] [address] [place] [address] PCP - General Family Medicine 06/26/18 documented as of this encounter
--- OUTSIDE RECORDS SUMMARY | 2023-08-22 03:56 | External Medical Summary | Summary of Care ---
Author Name Unknown Organization [facility] Address [address] [place] [address] Phone [phone] Care Team Providers Care Wildlife Forensic Geneticist Name Role Phone Muriel Moreira MD Primary Care Prov ider Reason for Visit * Reason Comments [facility]: Acute Encounter Details Date Type Department Care Team Description 05/13/2023 [facility] Visit [facility], [facility] [address] [facility] [place] [address] [facility], Nurse [facility] [address] [facility] [place] [address] Allergies Active Allergy Reactions Severity Noted Date [...] 75 MG Oral Tablet (pLAVix)Indications: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 [...] infection without hematuria 202101/24/2023 Overview: Xavier to [facility] 04/20-04/29 urosepsis multi drug [...] note were not included. [facility] Digital TechnicianBurr Bench Operator Visit Date: 05/13/2023 Time: 9:08 AM Name: Marshall Tello Sr. : 1935 Current Concerns: Communication Note Name: Marshall Tello Sr. Situation: called in to [facility] to report rash and increased pain [...] Pt lying in bed, alert, smiling Very CHEESH-NA which makes communication difficult He keeps saying "good" and giving thumbs up Shakes head "no" to pain now but reports he was moaning and saying his back hurt terribly thismorning. She gave him a dose of 50mg Tramadol and he slept afterwards Recommendation: TT to call center team leader Dr Octavio Retana with assessment and pictures Appears to be shingles rash - script for Valcyclovir called in to [facility] pharmacy and son educated on contact precautions [...] dry. Neurological: Mental Status: He is alert. [facility]10 Completed this Visit: Yes. [facility]: Reason Completed: Status post acute event/change in [...] medication regimen Patient Needs to Remember: Call [facility] at with any new or worsening [...] Scheduled Telephone [facility] [place], Nurse [facility] [address] [place] [address] 05/15/2023 Laboratory Laboratory Processing [facility] [facility] Mobile Home Draw [address] [place] [address] 05/15/2023 Home Visit [facility] Lila Brownlee RN [address] [place] [address] 05/19/2023 Laboratory Laboratory Processing [facility] Draw [address] [place] [address] 06/02/2023 Laboratory Laboratory Processing [facility] Mobile Home Draw [address] [place] [address] 06/16/2023 Laboratory Laboratory Processing [facility] Mobile Home Draw [address] [place] [address] 06/30/2023 Laboratory Laboratory Processing [facility] Mobile Home Draw [address] [place] [address] 07/11/2023 Cardiac Studies [facility] [address] [facility] [place] [address] 07/14/2023 Laboratory Laboratory Processing [facility], [facility] Mobile Home Draw [address] [place] [address] 07/17/2023 Office Visit Dermatology Pilar Joseph PA-C [address] [place] [address] [place] [address] 07/26/2023 Office Visit Family Medicine Muriel Moreira MD [address] [facility] [place] [address] 07/28/2023 Laboratory Laboratory Processing [facility], [facility] Mobile Home Draw [address] [place] [address] 08/11/2023 Laboratory Laboratory Processing [facility], [facility] Mobile Home Draw [address] [place] [address] 08/25/2023 Laboratory Laboratory Processing [facility], [facility] Mobile Home Draw [address] [place] [address] 08/29/2023 Office Visit Cardiology Chris Choudhury PA-C [address] [place] [address] 09/08/2023 Laboratory Laboratory Processing [facility], [facility] Mobile Home Draw [address] [place] [address] 09/22/2023 Laboratory Laboratory Processing [facility], [facility] Mobile Home Draw [address] [place], [place] [address] Scheduled Procedures Name Priority Associated Diagnoses Date/Ti [...] COPD 09/06/2023 09/06/2022 CKD PHOS USE SMARTSET 49709 09/07/2023 120 04/2022, 09/05/2022, 01/14/2022, Additional history exists Depression Screening, Annual for Pts 12 and Over 01/25/2024 01/24/2023 DIG LEVEL FOR MEDICATION MONITORING YEARLY 01/26/2024 01/25/2023, 04/17/2021, 03/09/2020, Additional history exists Albumin/Creatinine Ratio 01/27/2024 023, 01/14/2022, 08/14/2017, Additional history exists CKD HGB USE SMARTSET 68144 05/05/202405/05, 05/05/2023, 04/28/2023, Additional history exists COLONOSCOPY-EVERY [...] this encounter Medical Devices Implanted Type Area Teenage Babysitter Device Identifier Shelf Expiration Date Model / Serial / Lot Screw T2 Alpha Lock 5x47.5mm - [id number] Implanted:Qty: 1 on 09/06/2022 by Sean Silva MD at [facility] Left: Leg Upper RICHELLE : TRAUMA 06/01/2032 [id number] / / [id number] documented as of this encounter Advance Directives Documents on File Type Date Recorded 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
--- OUTSIDE RECORDS SUMMARY | 2023-08-22 03:56 | External Medical Summary ---
Author Name Unknown Address Unknown Organization : Laboratory Report Ordering Provider Test Date Status DEB BULL 05/15/2023 10:42:04 Final Observation Date Value Abnormality Reference (Units ) Status BUN 05/15/2023 10:42:04 29 Above high normal 6-20 (mg/dL) Final Creatinine 05/15/2023 10:42:04 1.6 Above high normal 0.6-1.2 (mg/dL) Final Glomerular filtration rate/1.73 sq M.predicted [Volume Rate/Area] in Serum, Plasma or Blood by Creatinine-based formula (CKD-EPI) 05/15/2023 10:42:04 43 Below low normal >=60 (mL/min) Final eGFR is calculated based on the CKD-EPI 2020 equation SODIUM 05/15/2023 10:42:04 141 135-146 (m mol/L) Final Potassium 05/15/2023 10:42:04 4.8 3.5-5.1 (m mol/L) Final Result may be falsely elevat ed due to hemolysis. Cl 05/15/2023 10:42:04 103 98-107 (mm ol/L) Final CO2 05/15/2023 10:42:04 22 22-32 (mmo l/L) Final Anion gap 05/15/2023 10:42:04 16 Above high normal 7- 15 (mmol/L) Final Glucose 05/15/2023 10:42:04 132 Above high normal 70 -120 (mg/dL) Final Albumin 05/15/2023 10:42:04 3.0 Below low normal 3.8 -5.0 (g/dL) Final AST (Aspartate aminotransferase) 05/15/2023 10:42:04 37 10-50 (U/L) Fin al Result may be falsely elevat ed due to hemolysis. Alk Phos 05/15/2023 10:42:04 47 35-130 (U/ L) Final Bilirubin, Total 05/15/2023 10:42:04 0.3 <=1 .2 (mg/dL) Final Calcium 05/15/2023 10:42:04 9.3 8.4-10.2 ( mg/dL) Final Protein 05/15/2023 10:42:04 8.2 6.0-8.3 (g /dL) Final ALT (Alanine aminotransferase) 05/15/2023 10:42:04 11 10-50 (U/L) Final Performing Location
--- OUTSIDE RECORDS SUMMARY | 2023-08-22 03:57 | External Medical Summary ---
Author Name Unknown Address Unknown Organization K01:LABORATORY [facility] - [address] [facility] [place] [address] Laboratory Report Ordering Provider Test Date Status DEB BULL 05/05/2023 07:59:00 Final Observation Date Value Abnormality Reference (Units ) Status SYNC LEUKOCYTES IN BLOOD BY AUTOMATED COUNT 05/05/2023 07:59:00 4.54 4.00-10.80 (K/uL) Final Segs 05/05/2023 07:59:00 47.4 40.0-75.0 (%) Final Lymphs % 05/05/2023 07:59:00 30.8 18.0-42.0 (%) Final Monos 05/05/2023 07:59:00 10.8 1.0-11.0 (%) Final Eosinophils 05/05/2023 07:59:00 10.4 Above high normal 0.0-6.0 (%) Final Basos 05/05/2023 07:59:00 0.4 0.0-2.0 (%) Final Immature Granulocyte, Percent 05/05/2023 07:59:00 0.2 0.0-2.0 (%) Final Absolute Segs 05/05/2023 07:59:00 2.15 1.80-7.70 (K/uL) Final Lymphs, absolute 05/05/2023 07:59:00 1.40 1.00-4.80 (K/ul) Final Monos, Abs 05/05/2023 07:59:00 0.49 0.00-1.10 (K/uL) Final Eos, Abs 05/05/2023 07:59:00 0.47 0.00-0.70 (K/uL) Final Basos, Abs 05/05/2023 07:59:00 0.02 0.00-0.20 (K/uL) Final Immature Granulocytes, Number 05/05/2023 07:59:00 0.01 0.00-0.20 (K/uL) Final Performing Location LABORATORY [facility] - [address] [facility] [address]
--- OUTSIDE RECORDS SUMMARY | 2023-08-22 03:57 | External Medical Summary ---
Author Name Unknown Address Unknown Organization K01:LABORATORY [facility] - [address] [place] [address] Laboratory Report Ordering Provider Test Date Status DEB BULL 05/05/2023 07:59:00 Final Observation Date Value Abnormality Reference (Units ) Status WBC, Total 05/05/2023 07:59:00 4.54 4.00-10.80 (K/uL) Final RBC 05/05/2023 07:59:00 2.70 4.50-5.25 (M/uL) Final Hemoglobin 05/05/2023 07:59:00 8.7 Below low normal 14.0-16.8 (g/dL) Final HCT 05/05/2023 07:59:00 29.9 Below low normal 40.0-48.4 (%) Final MCV 05/05/2023 07:59:00 110.7 82.0-99.5 (fL) Final MCH 05/05/2023 07:59:00 32.2 27.0-34.0 (pg) Final MCHC 05/05/2023 07:59:00 29.1 32.0-36.0 (g/dL) Final RDW 05/05/2023 07:59:00 17.2 11.5-15.5 (%) Final Platelets 05/05/2023 07:59:00 229 140-400 (K/uL) Final MPV 05/05/2023 07:59:00 9.8 6.6-11.1 (fL) Final Nucleated erythrocytes/100 leukocytes [Ratio] in Blood by Automated count 05/05/2023 07:59:00 0 <=0 (/100 WBCs) Final Performing Location LABORATORY C - [address] [place] [address]
--- OUTSIDE RECORDS SUMMARY | 2023-08-22 03:57 | External Medical Summary | Summary of Care ---
Author Name Unknown Organization [facility] Address [address] [facility] [address] Phone [phone] Care Team Providers Care Childrens Club Attendant Name Role Phone Muriel Moreira MD Primary Care Prov ider Reason for Visit * Reason Onset Date Comments [facility]: Acute 05/13/2023 Encounter Details Date Type Department Care Team Description 05/13/2023 Telephone [facility], [facility] [address] [place] [address] Kami Rosado RN [address] [place] [address] [facility]: Acute Allergies Active Allergy [...] 75 MG Oral Tablet (pLAVix)Indications: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 leg ; Rt. anglican 07/0207/18/2002 07/15/2015 Dyslipidemia, goal to be determined [...] encounter Miscellaneous Notes * Telephone Encounter - Kami Rosado RN - 05/13/2023 7:26 AM EDT , Remedios called [facility]'s cell number this morning to report that patient was having a lot of pain in his upper back. She also noted a red rash. Concerned about him having shingles. No blisters , butnon-raised red rash. Asking for home visit today to assess. Message to [place] [facility] working. Added home visit to schedule . has Tramadol 50 mg tablets in the home and is going to give him one now. Some question in the past as to whether tramadol caused hallucinations, but also had UTI at the time. Recommended only giving half tab or tylenol 500mg , 2 tablets to see if that would help. Vero-can you add tramadol back to med list if is going to use. Reinforced how to contact [facility] main number and to call back if symptoms worsen or other concerns before [facility] contacts her this morning. documented in this encounter Plan of Treatment Upcoming Encounters Date Type Specialty Care Team Description 05/13/2023 [facility] Visit [facility], Nurse [address] [address] 05/14/2023 Scheduled Telephone [facility], Nurse [address] [address] 05/15/2023 Laboratory Laboratory Processing [facility], [facility] Mobile Home Draw [address] [place] [address] 05/15/2023 Home Visit [facility] Lila Brownlee RN [address] [place] [address] 05/19/2023 Laboratory Laboratory Processing [facility], [facility] Mobile Home Draw [address] [place] [address] 06/02/2023 Laboratory Laboratory Processing [facility], [facility] Mobile Home Draw [address] [place] [address] 06/16/2023 Laboratory Laboratory Processing [facility], [facility] Mobile Home Draw [address] [place] [address] 06/30/2023 Laboratory Laboratory Processing [facility], [facility] Mobile Home Draw [address] [place] [address] 07/11/2023 [facility]iac [facility] [address] [address] 07/14/2023 Laboratory Laboratory Processing [facility], [facility] Mobile Home Draw [address] [place] [address] 07/17/2023 Office Visit Dermatology Pilar Joseph PA-C [address] [place] [address] [place] [address] 07/26/2023 Office Visit Family Medicine Muriel Moreira MD [address] [place] [address] [place] [address] 07/28/2023 Laboratory Laboratory Processing [facility] [facility] Draw [address] [place] [address] 08/11/2023 Laboratory Laboratory Processing [facility], Gml Mobile Home Draw [address] [place] [address] 08/25/2023 Laboratory Laboratory Processing [facility] [facility] Home Draw [address] [place] [address] 08/29/2023 Office Visit Cardiology Chris Choudhury PA-C [address] [place] [address] 09/08/2023 Laboratory Laboratory Processing [facility] Mobile Home Draw [address] [place] [address] 09/22/2023 Laboratory Laboratory Processing [facility] Home Draw [address] [place] [address] Scheduled Procedures Name Priority Associated Diagnoses Date/Ti [...] COPD 09/06/2023 09/06/2022 CKD PHOS USE SMARTSET 04355 09/07/202304/2022, 09/05/2022, 01/14/2022, Additional history exists Depression Screening, Annual for Pts 12 and Over 01/25/2024 01/24/2023 DIG LEVEL FOR MEDICATION MONITORING YEARLY 01/26/2024 01/25/2023, 04/17/2021, 03/09/2020, Additional history exists Albumin/Creatinine Ratio 01/27/2024 023, 01/14/2022, 08/14/2017, Additional history exists CKD HGB USE SMARTSET 88241 05/05/202405/05, 05/05/2023, 04/28/2023, Additional history exists COLONOSCOPY-EVERY [...] this encounter Medical Devices Implanted Type Area Nickel Plater Device Identifier Shelf Expiration Date Model / Serial / Lot Screw T2 Alpha Lock 5x47.5mm - [id number] Implanted:Qty: 1 on 09/06/2022 by Sean Silva MD at [facility] Left: Leg Upper RICHELLE : TRAUMA 06/01/2032 [id number] / / [id number] documented as of this encounter Advance Directives Documents on File Type Date Recorded Patient Kettle Coordinator Expl anation POLST 10/17/2022 [place] OR DERS [...] Agen t (per Health Care Power of Domestic Laundry Worker document) Reji Tello Dotts Adult Child First Alterna te Health Care Agent (per Health Care Power of Domestic Laundry Worker document) Bowen Tello Adult Child First Alternate Health Care Agent (per Health Care Power of Domestic Laundry Worker document) Care Teams Childrens Club Attendant Relationship Specialty Start Date End Date Muriel Moreira MD [address] [place] [address] [place] [address] PCP - General Family Medicine 06/26/18 documented as of this encounter
--- OUTSIDE RECORDS SUMMARY | 2023-08-22 03:57 | External Medical Summary | Summary of Care ---
Author Name Unknown Organization [facility] Address [address] [place] [address] Phone [phone] Care Team Providers Care Outreach Librarian Name Role Phone Muriel Moreira MD Primary Care Prov ider Reason for Visit * Reason Onset Date Comments Test Results Lab 05/08/2023 Encounter Details Date Type Department Care Team Description 05/08/2023 Telephone Hematology/Oncology [facility] [place] [address] [place] [address] Pietro Sykes [facility] [address] [facility] [address] Test Results Lab Allergies Active Allergy Reactions Severity Noted Date Comments James Inhibitors 09/10/2002 cough on prinivil Hydrocodone 09/05/2022 Family states AMS change when taken Prednisone 05/26/2011 Blisters in throat Sulfa Antibiotics 03/19/2001 dysurea documented as of this encounter (statuses as of 05/08/2023) Medications Medication Sig Dispensed Refills Start Date [...] 75 MG Oral Tablet (pLAVix)Indications: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 leg ; Rt. gnosticist 07/0207/18/2002 07/15/2015 Dyslipidemia, goal to be determined [...] as of this encounter (statuses as of 05/08/2023) Immunizations Name Administration Dates Next Due COVID-19 [...] Telephone Encounter - Ludivina Eden LPN - 05/08/2023 9:45 AM EDT Entered cbcd for 1 week, notified patient per [employer], [employer] message, patient is active. Patient scheduled for mobile lab in 1 week. ----- Message from Pietro Sykes MD sent at 05/08/2023 8:02 AM EDT ----- Blood workup done on 05/05/2023: -hemoglobin level 8.7. Repeat CBCD in about 1 week. documented in this encounter Plan of Treatment Upcoming Encounters Date Type Specialty Care Team Description 05/15/2023 Home Visit [facility] Lila Brownlee, SANK[address] [place] [address] 05/19/2023 Laboratory Laboratory Processing [facility] Mobile Home Draw [address] [place] [address] 06/02/2023 Laboratory Laboratory Processing [facility], [facility] Mobile Home Draw [address] [place] [address] 06/16/2023 Laboratory Laboratory Processing [facility], [facility] Mobile Home Draw [address] [place] [address] 06/30/2023 Laboratory Laboratory Processing [facility], [facility] Mobile Home Draw [address] [place] [address] 07/11/2023 Cardiac Studies Cardiology [address] [address] 07/14/2023 Laboratory Laboratory Processing [facility], [facility] Mobile Home Draw [address] [place] [address] 07/17/2023 Office Visit Dermatology Pilar Joseph PA-C [address] [place] [address] [place] [address] 07/26/2023 Office Visit Family Medicine Muriel Moreira MD [address] [place] [address] [place] [address] 07/28/2023 Laboratory Laboratory Processing [facility], [facility] Mobile Home Draw [address] [place] [address] 08/11/2023 Laboratory Laboratory Processing [facility], [facility] Mobile Home Draw [address] [place] [address] 08/25/2023 Laboratory Laboratory Processing [facility], [facility] Mobile Home Draw [address] [place] [address] 08/29/2023 Office Visit Cardiology Chris Choudhury PA-C [address] [place] [address] 09/08/2023 Laboratory Laboratory Processing [facility] Mobile Home Draw [address] [place] [address] 09/22/2023 Laboratory Laboratory Processing [facility] Mobile Home Draw [address] [place] [address] Scheduled Orders Name Type Priority Associated Diagnoses Orde r Schedule CBC WITH WBC DIFFERENTIAL Lab STAT Multiple myeloma, remission status unspecified (HCC) Expected: 06/08/2023, Expires: 05/08/2024 Scheduled Procedures Name Priority Associated Diagnoses Date/Ti [...] COPD 09/06/2023 09/06/2022 CKD PHOS USE SMARTSET 33361 09/07/2023 12/0 04/2022, 09/05/2022, 01/14/2022, Additional history exists Depression Screening, Annual for Pts 12 and Over 01/25/2024 01/24/2023 DIG LEVEL FOR MEDICATION MONITORING YEARLY 01/26/2024 01/25/2023, 04/17/2021, 03/09/2020, Additional history exists Albumin/Creatinine Ratio 01/27/2024 023, 01/14/2022, 08/14/2017, Additional history exists CKD HGB USE SMARTSET 19287 05/05/202405/05, 05/05/2023, 04/28/2023, Additional history exists COLONOSCOPY-EVERY [...] this encounter Medical Devices Implanted Type Area Millinery Blocker Device Identifier Shelf Expiration Date Model / Serial / Lot Screw T2 Alpha Lock 5x47.5mm - [id number] Implanted:Qty: 1 on 09/06/2022 [place] [facility] [place] Left: Leg Upper RICHELLE : TRAUMA 06/01/2032 [id number] / / [id number] documented as of this encounter Visit Diagnoses Diagnosis Multiple myeloma, remission status unspecified (HCC)- Primary documented in this encounter Advance Directives Documents on File Type Date Recorded 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 Programmer 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
--- OUTSIDE RECORDS SUMMARY | 2023-08-22 03:57 | External Medical Summary ---
Author Name Unknown Address Unknown Organization K01:LABORATORY [facility] [place] - [address] [facility] [place] [address] Laboratory Report Ordering Provider Test Date Status DEB BULL 05/05/2023 07:59:00 Final Observation Date Value Abnormality Reference (Units ) Status BUN 05/05/2023 07:59:00 26 Above high normal 6-20 (mg/dL) Final Creatinine 05/05/2023 07:59:00 1.6 Above high normal 0.6-1.2 (mg/dL) Final Glomerular filtration rate/1.73 sq M.predicted [Volume Rate/Area] in Serum, Plasma or Blood by Creatinine-based formula (CKD-EPI) 05/05/2023 07:59:00 42 Below low normal >=60 (mL/min) Final eGFR is calculated based on the CKD-EPI 2020 equation SODIUM 05/05/2023 07:59:00 145 135-146 (m mol/L) Final Potassium 05/05/2023 07:59:00 3.9 3.5-5.1 (m mol/L) Final Cl 05/05/2023 07:59:00 102 98-107 (mm ol/L) Final CO2 05/05/2023 07:59:00 24 22-32 (mmo l/L) Final Anion gap 05/05/2023 07:59:00 19 Above high normal 7- 15 (mmol/L) Final Glucose 05/05/2023 07:59:00 91 70-120 (mg /dL) Final Albumin 05/05/2023 07:59:00 3.2 Below low normal 3.8 -5.0 (g/dL) Final AST (Aspartate aminotransferase) 05/05/2023 07:59:00 16 10-50 (U/L) Fin al Alk Phos 05/05/2023 07:59:00 42 35-130 (U/ L) Final Bilirubin, Total 05/05/2023 07:59:00 0.3 <=1 .2 (mg/dL) Final Calcium 05/05/2023 07:59:00 9.4 8.4-10.2 ( mg/dL) Final Protein 05/05/2023 07:59:00 8.3 6.0-8.3 (g /dL) Final ALT (Alanine aminotransferase) 05/05/2023 07:59:00 11 10-50 (U/L) Titus cervantes Performing Location LABORATORY [facility] - [address] [facility] [address]
--- OUTSIDE RECORDS SUMMARY | 2023-08-22 03:57 | External Medical Summary ---
Author Name Unknown Address Unknown Organization [id number]:[facility] [place] [address] [facility] [place] [id number] Laboratory Report Ordering Provider Test Date Status APRIL MOLINA 05/12/2023 12:32:25 Final Observation Date Value Abnormality Reference (Units ) Status Color of Urine by Auto 05/12/2023 12:32:25 Yellow Colorless, Light Yellow, Yellow, Dark Yellow Final Clarity, Urine 05/12/2023 12:32:25 Clear Clear Final Glucose [Mass/volume] in Urine by Automated test strip 05/12/2023 12:32:25 Negative Negative (mg/dL) Final Bilirubin.total [Presence] in Urine by Automated test strip 05/12/2023 12:32:25 Negative Negative Final Ketones [Mass/volume] in Urine by Automated test strip 05/12/2023 12:32:25 Negative Negative (mg/dL) Final Specific gravity, Urine 05/12/2023 12:32:25 1.020 1.003-1.030 Final Hemoglobin [Presence] in Urine by Automated test strip 05/12/2023 12:32:25 Negative Negative Final pH, Urine 05/12/2023 12:32:25 6.0 5.0-7.5 (Units) Final Protein [Mass/volume] in Urine by Automated test strip 05/12/2023 12:32:25 30 Abnormal Negative (mg/dL) Final Urobilinogen [Mass/volume] in Urine by Automated test strip 05/12/2023 12:32:25 Normal Normal (mg/dL) Final Nitrite [Presence] in Urine by Automated test strip 05/12/2023 12:32:25 Negative Negative Final Leukocyte esterase [Presence] in Urine by Automated test strip 05/12/2023 12:32:25 Negative Negative Final RBC, Urine 05/12/2023 12:32:25 0-2 0-2 (/HPF) Final WBC, Urine 05/12/2023 12:32:25 0-2 0-2 (/HPF) Final Bacteria [#/area] in Urine sediment by Microscopy high power field 05/12/2023 12:32:25 0-25 0-25 (/HPF) Final CULTURE, URINE - ISINGER 05/12/2023 12:32:25 Final Culture not indicated by uri nalysis results Performing Location [facility] [place] [address] [facility] [id number]
--- OUTSIDE RECORDS SUMMARY | 2023-08-22 03:57 | External Medical Summary | Summary of Care ---
Author Name Unknown Organization [facility] Address [address] [place] [address] Phone [phone] Care Team Providers Care Ethanol Quality Leader Name Role Phone Muriel Moreira MD Primary Care Prov ider Reason for Visit * Reason Onset Date Comments Appointment 05/12/2023 Encounter Details Date Type Department Care Team Description 05/12/2023 Telephone [facility], [facility] [address] [place] [address] Services, Scheduling [address] [place] [address] Appointment (//) Allergies Active Allergy Reactions Severity Noted Date Comments James Inhibitors 09/10/2002 cough on prinivil Hydrocodone 09/05/2022 Family states AMS change when taken Prednisone 05/26/2011 Blisters in throat Sulfa Antibiotics 03/19/2001 dysurea documented as of this encounter (statuses as of 05/12/2023) Medications Medication Sig Dispensed Refills Start Date [...] 75 MG Oral Tablet (pLAVix)Indications:At herosclerosis of [place] coronary artery of [place] heart without angina pectoris TAKE ONE TABLET [...] as of this encounter (statuses as of 05/12/2023) Active Problems Patient Care Coordination No te [...] CORONARY ATHEROSCLEROSIS OF UNSPECIFIED TYPE OF VESSEL, [place] OR GRAFT Last Assessment & Plan: Stable. 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 documented as of this encounter (statuses as of 05/12/2023) Resolved Problems Problem Noted Date Resolved Date [...] glenn ek & Lt. leg 98; Rt. judaism 07/0207/18/2002 07/15/2015 Dyslipidemia, goal to [...] as of this encounter (statuses as of 05/12/2023) Immunizations Name Administration Dates Next Due COVID-19 [...] Miscellaneous Notes * Telephone Encounter - CASTRO Ann - 05/12/2023 4:34 PM EDT Per Request via TT Lila Brownlee she advised to schedule f/u call this weekend UA... Scheduled 24/48 hr f/u UA. documented in this encounter Plan of Treatment Upcoming Encounters Date Type Specialty Care Team Description 05/13/2023 Scheduled Telephone [facility] Yao, Nurse [place] [address] [place] [address] 05/14/2023 Scheduled Telephone [facility] Yao, Nurse Shira Ashford [address] [place] [address] 05/15/2023 Laboratory Laboratory Processing [facility], [facility] Mobile Home Draw [address], [place] [id number] 05/15/2023 Home Visit [facility] Lila Brownlee RN [address] [place] [address] 05/19/2023 Laboratory [facility] Draw [address] [place] [address] 06/02/2023 Laboratory Laboratory Processing [facility] Draw [address] [place] [address] 06/16/2023 Laboratory Laboratory [facility] [address] [place] [address] 06/30/2023 Laboratory Laboratory Processing [facility] Draw [address] [place] [address] 07/11/2023 Cardiac Studies Cardiology [address] [address] 07/14/2023 Laboratory Laboratory Processing [facility] Draw [address] [place] [address] 07/17/2023 Office Visit Dermatology Pilar Joseph PA-C [address] [place] [address] [place] [address] 07/26/2023 Office Visit Family Medicine Muriel Moreira MD [address] [place] [address] [place] [address] 07/28/2023 Laboratory Laboratory Processing [facility] Draw [address] [place] [address] 08/11/2023 Laboratory Laboratory Processing [facility] Draw [address] [place] [address] 08/25/2023 Laboratory Laboratory Processing [facility], [facility] Mobile Home Draw [address] [place] [address] 08/29/2023 Office Visit Cardiology Chris Choudhury PA-C [address] [place] [address] 09/08/2023 Laboratory Laboratory Processing [facility], [facility] Mobile Home Draw [address], [place] [id number] 09/22/2023 Laboratory Laboratory Processing [facility], [facility] Mobile Home Draw [address] [place] [address] Scheduled Procedures Name Priority Associated Diagnoses Date/Ti [...] COPD 09/06/2023 09/06/2022 CKD PHOS USE SMARTSET 27748 09/07/2023 12/0 04/2022, 09/05/2022, 01/14/2022, Additional history exists Depression Screening, Annual for Pts 12 and Over 01/25/2024 01/24/2023 DIG LEVEL FOR MEDICATION MONITORING YEARLY 01/26/2024 01/25/2023, 04/17/2021, 03/09/2020, Additional history exists Albumin/Creatinine Ratio 01/27/2024 023, 01/14/2022, 08/14/2017, Additional history exists CKD HGB USE SMARTSET 57477 05/05/202405/05, 05/05/2023, 04/28/2023, Additional history exists COLONOSCOPY-EVERY [...] this encounter Medical Devices Implanted Type Area Strip Deburrer Device Identifier Shelf Expiration Date Model / Serial / Lot Screw T2 Alpha Lock 5x47.5mm - [id number] Implanted:Qty: 1 on 09/06/2022 by Sean Silva MD at [facility] Left: Leg Upper RICHELLE : TRAUMA 06/01/2032 [id number] / / [id number] documented as of this encounter Advance Directives Documents on File Type Date Recorded Patient Stitcher Feeder Expl anation POLST 10/17/2022 [place] OR DERS FOR LIFE-SUSTAINING TREATMENT POLST 09/10/2022 [place] OR DERS FOR LIFE-SUSTAINING TREATMENT Latest Code [...] Agen t (per Health Care Power of Logistics Supply Officer document) Reji Tello Dotts Adult Child First Alterna te Health Care Agent (per Health Care Power of Logistics Supply Officer document) Bowen Tello Adult Child First Alternate Health Care Agent (per Health Care Power of Logistics Supply Officer document) Care Teams Ethanol Quality Leader Relationship Specialty Start Date End Date Muriel Moreira MD [address] [place] [address] [place] [address] PCP - General Family Medicine 06/26/18 documented as of this encounter
--- OUTSIDE RECORDS SUMMARY | 2023-08-22 03:57 | External Medical Summary | Summary of Care ---
Author Name Unknown Organization [facility] Address [address] [place] [address] Phone [phone] Care Team Providers Care Senior System Operator Name Role Phone Muriel Moreira MD Primary Care Prov ider Reason for Visit * Reason Comments [facility]: Transition of Care Encounter Details Date Type Department Care Team Description 05/03/2023 Home Visit [facility], [facility] [address] [place] [address] Kami Rosado, RN [address] [place] [address] Allergies Active Allergy Reactions Severity Noted Date Comments James Inhibitors 09/10/2002 cough on prinivil Hydrocodone 09/05/2022 Family states AMS change when taken Prednisone 05/26/2011 Blisters in throat Sulfa Antibiotics 03/19/2001 dysurea documented as of this encounter (statuses as of 05/03/2023) Medications Medication Sig Dispensed Refills Start Date [...] 75 MG Oral Tablet (pLAVix)Indications:At herosclerosis of [place] coronary artery of [place] heart without angina pectoris TAKE ONE TABLET [...] as of this encounter (statuses as of 05/03/2023) Active Problems Patient Care Coordination No te [...] CORONARY ATHEROSCLEROSIS OF UNSPECIFIED TYPE OF VESSEL, [place] OR GRAFT Last Assessment & Plan: Stable. 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 documented as of this encounter (statuses as of 05/03/2023) Resolved Problems Problem Noted Date Resolved Date [...] infection without hematuria 202101/24/2023 Overview: [facility] to [facility] 04/20-04/29 urosepsis multi drug resistant [...] glenn ek & Lt. leg ; Rt. pentecostal 07/0207/18/2002 07/15/2015 Dyslipidemia, goal to be determined [...] as of this encounter (statuses as of 05/03/2023) Immunizations Name Administration Dates Next Due COVID-19 [...] Sign Reading Time Taken Comments Blood Pressure 144/64 05/03/2023 10:26 AM EDT Pulse 80 05/03/2023 10:26 AM EDT Temperature 36.6 C (97.8 F) 05/03/2023 10:26 AM E DT Respiratory Rate 16 05/03/2023 10:26 AM EDT Oxygen Saturation 98% 05/03/2023 10:26 AM EDT RA Inhaled Oxygen Concentration - - Weight 90.7 kg (200 lb) 05/03/2023 10:26 AM EDT Height - - Body Mass Index [...] as of this encounter Progress Notes * Kami Rosado RN - 05/03/2023 10:17 AM EDT [facility] Remote Sensing Specialist BENJAMIN 3 Visit Date: 05/03/2023 Time: 10:17 AM Name: Marshall Tello Sr. : 1935 Current Concerns: Pt being seen for BENJAMIN 3. Pt s/p admission for severe anemia requiring 3 units of PRBCs for hgb of 5.1. Pt was to see pcp for discharge follow up last week. hgb stable at 8.7. scheduled for recheck of cbc via mobile lab on 05/05/23. No sxs of bleeding per . No further falls Weights stable Treatment/ Plan: RNCM return in 2 weeks to complete BENJAMIN process/ensure pt is stable. Every other week cbc by mobile lab. Results to Dr Sykes who manages Continue [facility] palliative Physical Exam: BP 144/64 (BP Site: Right Arm, BP Position: Sitting, BP Cuff Size: Regular) | Pulse 80 | Temp 36.6 C (97.8 F) (Infrared ) | Resp 16 | Wt 90.7 kg (200 lb) | SpO2 98% Comment: RA | BMI 27.89 kg/m| BSA 2.13 m Pain 0 Physical Exam HENT: Mouth/Throat: Mouth: Mucous membranes are moist. Pharynx: Oropharynx is clear. Cardiovascular: Rate and Rhythm: Normal rate. Pulses: Normal pulses. Abdominal: General: Bowel sounds are normal. There is no distension. Palpations: Abdomen is soft. Musculoskeletal: Right lower leg: No edema. Left lower leg: No edema. Skin: General: Skin is warm and dry. Neurological: Mental Status: He is alert. Mental status is at baseline. Problems/Symptoms: Review of Systems Constitutional: Negative for chills and fever. Eyes: Negative. Respiratory: Negative. Cardiovascular: Negative. Gastrointestinal: Negative. Endocrine: Negative. Genitourinary: Negative for difficulty urinating. Musculoskeletal: Positive for arthralgias. Skin: Negative. Allergic/Immunologic: Negative. Neurological: Positive for weakness. Negative for dizziness and headaches. Medication Reconciliation: (See medication list) Does patient take medications as ordered: Yes Patient Well Being: PHQ2/9: No questionnaires available. MAHC-10 Completed this Visit: No. Routine visit and No falls since last visit Advanced Care Planning: Living Will. and Healthcare POA. Reinforcement/Education: Educated on home safety: Create a fall proof home o Clear floors of clutter, loose wires, throw rugs, and cords. o Make sure halls, stairways, and entrances are well lit. o Install a nightlight in your bedroom, hallway and bathroom. o Install grab bars or handrails in the bathroom and on stairs. o Use a non-skid tub/shower mat. o Avoid climbing on a chair; instead use a step stool with a high handrail. o Keep sidewalks and steps in good repair o Keep steps and sidewalks free of snow and ice. Using aids to support and prevent falls o If you have poor balance or have fallen in the past, consider additional support such as a cane or walker. o Use a cane with good support and that is the proper length for you. o Use a walker if a cane doesnt provide enough support. Avoid medications that increase the risk of falling by causing dizziness, change in sensation or slowed reflexes. o Certain medicines may cause falls - blood pressure pills, heart medicines, water pills, or sleeping pills. o Be sure to understand each medicine that you are taking and any side effects that may occur. Improve your balance and flexibility with muscle strengthening exercises. Ask your health care provider for some exercises that will be right for you. Reinforced safety education and fall prevention. and Reinforced medication regimen. Timing., Dosing. and Purspose. Home Interventions Provided: Reinforced current Plan of Care, including self-management and medication regimen Red flags: Decreased appetite, increased weakness ( noted before going to hospital, he was not getting outof bed for a couple of days and not eating much. Poor balance and inability to ambulate with just standby assistance (was falling prior to hospitalization) Diarrhea-stools always black due to iron Blood in stool Patient Needs to Remember: Call [facility] at with any new or worsening health concerns or problems, red flag symptoms. Referrals Needed: NA Follow Up: Is there cellular connectivity/connectivity in the home? No Does the patient have internet in the home? Yes Patient encouraged to call the intake phone number for all urgent but not emergent issues. Is the patient new to [facility] within the last 30 days? No, Assess appropriateness for upcoming telehealth visits. Cancel telehealth visits & schedule home visit with care stationary steam engineer(s)as indicated. Provider is in agreement with Plan of Care: Yes Scheduled to follow up with patient in 2 weeks. Kami Rosado RN 05/03/2023 10:17 AM documented in this encounter Plan of Treatment Upcoming Encounters Date Type Specialty Care Team Description 05/05/2023 Laboratory [facility] [address] [place] [address] 05/15/2023 Home Visit [facility] Lila Brownlee, SANKET [address] [place] [address] 05/19/2023 Laboratory Laboratory Processing [facility] Draw [address] [place] [address] 06/02/2023 Laboratory Laboratory Processing [facility] [address] [place] [address] 06/16/2023 Laboratory Laboratory [facility] [address] [place] [address] 06/30/2023 Laboratory Laboratory Processing [facility] Draw [address] [place] [address] 07/11/2023 Cardiac Studies Cardiology [facility], Pacer [address] [address] 07/14/2023 Laboratory Laboratory Processing [facility] Draw [address] [place] [address] 07/17/2023 Office Visit Dermatology Pilar Joseph PA-C [address] [place] [address] [place] [phone] 07/26/2023 Office Visit Family Medicine Muriel Moreira MD [address] [place] [address] [place] [address] 07/28/2023 Laboratory Laboratory Processing [facility] Draw [address] [place] [address] 08/11/2023 Laboratory Laboratory Processing [facility] [address] [place] [address] 08/25/2023 Laboratory Laboratory Processing [facility] [address] [place] [address] 08/29/2023 Office Visit Cardiology Chris Choudhury PA-C [address] [place] [address] 09/08/2023 Laboratory Laboratory Processing [facility] [address] [place] [address] 09/22/2023 Laboratory Laboratory Processing [facility] [address] [place] [address] Scheduled Procedures Name Priority Associated Diagnoses Date/Ti [...] COPD 09/06/2023 09/06/2022 CKD PHOS USE SMARTSET 93460 09/07/202304/2022, 09/05/2022, 01/14/2022, Additional history exists Depression Screening, Annual for Pts 12 and Over 01/25/2024 01/24/2023 DIG LEVEL FOR MEDICATION MONITORING YEARLY 01/26/2024 01/25/2023, 04/17/2021, 03/09/2020, Additional history exists Albumin/Creatinine Ratio 01/27/2024 023, 01/14/2022, 08/14/2017, Additional history exists CKD HGB USE SMARTSET 55101 04/28/202404/28, 04/20/2023, 04/20/2023, Additional history exists COLONOSCOPY-EVERY 5 YRS AGES [...] this encounter Medical Devices Implanted Type Area Non Destructive Testing Supervisor Device Identifier Shelf Expiration Date Model / Serial / Lot Screw T2 Alpha Lock 5x47.5mm - [id number] Implanted:Qty: 1 on 09/06/2022 by Sean Silva MD at [facility] Left: Leg Upper RICHELLE : TRAUMA 06/01/2032 [id number] / / [id number] documented as of this encounter Advance Directives Documents on File Type Date Recorded Patient Steeple Jack Expl anation POLST 10/17/2022 [place] OR DERS FOR LIFE-SUSTAINING TREATMENT POLST 09/10/2022 [place] OR DERS FOR LIFE-SUSTAINING TREATMENT Latest Code [...] Agen t (per Health Care Power of Sql Database Administrator document) Rejijohana Tello Dotts Adult Child First Alterna te Health Care Agent (per Health Care Power of Sql Database Administrator document) Bowen Tello Adult Child First Alternate Health Care Agent (per Health Care Power of Sql Database Administrator document) Care Teams Senior System Operator Relationship Specialty Start Date End Date Muriel Moreira MD [address] [place] [address] [place] [address] PCP - General Family Medicine 06/26/18 documented as of this encounter"
--- OUTSIDE RECORDS SUMMARY | 2023-08-22 03:58 | External Medical Summary | Summary of Care ---
Author Name Unknown Organization [facility] Address [address] [place] [address] Phone [phone] Care Team Providers Care Pbx Wire Chief Name Role Phone Muriel Moreira MD Primary Care Prov ider Reason for Visit * Reason Comments Outpatient Testing Encounter Details Date Type Department Care Team Description 04/28/2023 Laboratory Laboratory [address] [place] [id number] [place] [id number] Symptomatic anemia; Multiple myeloma not having achieved remission (HCC) Allergies Active Allergy Reactions Severity Noted Date Comments James Inhibitors 09/10/2002 cough on prinivil Hydrocodone 09/05/2022 Family states AMS change when taken Prednisone 05/26/2011 Blisters in throat Sulfa Antibiotics 03/19/2001 dysurea documented as of this encounter (statuses as of 04/28/2023) Medications Medication Sig Dispensed Refills Start Date [...] 75 MG Oral Tablet (pLAVix)Indications: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 documented as of this encounter (statuses as of 04/28/2023) Resolved Problems Problem Noted Date Resolved Date [...] infection without hematuria 202101/24/2023 Overview: [facility] to [facility] 04/20-04/29 urosepsis multi drug resistant [...] KERATOSIS Lt. glenn ek & Lt. leg 4/98; Rt. anabaptist 07/0207/18/2002 07/15/2015 Dyslipidemia, goal to [...] as of this encounter (statuses as of 04/28/2023) Immunizations Name Administration Dates Next Due COVID-19 [...] Encounters Date Type Specialty Care Team Description 05/03/2023 Home Visit [facility] Kami Rosado RN [facility] [place] [address] 05/05/2023 Laboratory Laboratory [place] [facility] [address] [place] [address] 05/19/2023 Laboratory Laboratory Processing [facility] [address] [place] [address] 06/02/2023 Laboratory Laboratory Processing [facility] [address] [place] [address] 06/16/2023 Laboratory Laboratory Processing [facility] [address] [place] [address] 06/30/2023 Laboratory Laboratory Processing [facility] [address] [place] [address] 07/11/2023 [facility] [place] [address] 07/14/2023 Laboratory Laboratory [facility] [address] [place] [address] 07/17/2023 Office Visit Dermatology Pilar Joseph PA-C [address] [place] [address] [place] [address] 07/26/2023 Office Visit Family Medicine Muriel Moreira MD [address] [place] [address] [place] [address] 07/28/2023 Laboratory Laboratory [facility] [address] [place] [address] 08/11/2023 Laboratory Laboratory Processing [facility] [address] [place] [address] 08/25/2023 Laboratory Laboratory Processing [facility] [address] [place] [address] 08/29/2023 Office Visit Cardiology Chris Choudhury PA-C [address] [place] [address] 09/08/2023 Laboratory Laboratory Processing [facility] [address] [place] [address] 09/22/2023 Laboratory Laboratory Processing [facility] [address] [place], [place] [id number] Pending Results Name Type Priority Associated Diagnoses Date /Time CBC Lab Routine Symptomatic anemia Multiple myeloma not having achieved remission (HCC) 04/28/2023 1:29 PM EDT Scheduled Procedures Name Priority Associated [...] COPD 09/06/2023 09/06/2022 CKD PHOS USE SMARTSET 82364 09/07/2023 12/0 04/2022, 09/05/2022, 01/14/2022, Additional history exists Depression Screening, Annual for Pts 12 and Over 01/25/2024 01/24/2023 DIG LEVEL FOR MEDICATION MONITORING YEARLY 01/26/2024 01/25/2023, 04/17/2021, 03/09/2020, Additional history exists Albumin/Creatinine Ratio 01/27/2024 023, 01/14/2022, 08/14/2017, Additional history exists CKD HGB USE SMARTSET 95405 04/20/202404/20, 04/20/2023, 04/05/2023, Additional history exists COLONOSCOPY-EVERY 5 YRS AGES [...] this encounter Medical Devices Implanted Type Area Wharf Tally Clerk Device Identifier Shelf Expiration Date Model / Serial / Lot Screw T2 Alpha Lock 5x47.5mm - [id number] Implanted:Qty: 1 on 09/06/2022 by Sean Silva MD at [facility] Left: Leg Upper RICHELLE : TRAUMA 06/01/2032 [id number] / / [id number] documented as of this encounter Visit Diagnoses Diagnosis Symptomatic anemia Multiple myeloma not having achieved remission (HCC) Multiple myeloma, without mention of having achieved remission documented in this encounter Advance Directives Documents on File Type Date Recorded Patient Cytogenetic Technician Expl anation POLST 10/17/2022 [place] OR DERS [...] Agen t (per Health Care Power of Apartment Maintenance Worker document) Reji Tello Dotts Adult Child First Alterna te Health Care Agent (per Health Care Power of Apartment Maintenance Worker document) Bowen Tello Adult Child First Alternate Health Care Agent (per Health Care Power of Apartment Maintenance Worker document) Care Teams Pbx Wire Chief Relationship Specialty Start Date End Date Muriel Moreira MD [address] [place] [address] [place] [phone] PCP - General Family Medicine 06/26/18 documented as of this encounter
--- OUTSIDE RECORDS SUMMARY | 2023-08-22 03:58 | External Medical Summary | Summary of Care ---
Author Name Unknown Organization [facility] Address [address] [place] [address] Phone [phone] Care Team Providers Care Steam Shovel Oiler Name Role Phone Muriel Moreira MD Primary Care Prov ider Reason for Visit * Reason Comments [facility]: Maintenance Encounter Details Date Type Department Care Team Description 04/27/2023 Home Visit [facility] [address] [place] [address] Kami Rosado, RN [address] [place] [address] Allergies Active Allergy Reactions Severity Noted Date Comments James Inhibitors 09/10/2002 cough on prinivil Hydrocodone 09/05/2022 Family states AMS change when taken Prednisone 05/26/2011 Blisters in throat Sulfa Antibiotics 03/19/2001 dysurea documented as of this encounter (statuses as of 04/29/2023) Medications Medication Sig Dispensed Refills Start Date [...] 75 MG Oral Tablet (pLAVix)Indications:At herosclerosis of [place] coronary artery of [place] heart without angina pectoris TAKE ONE TABLET [...] as of this encounter (statuses as of 04/29/2023) Active Problems Problem Noted Date 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 leg 4/98; Rt. pentecostal 07/0207/18/2002 07/15/2015 Dyslipidemia, goal to [...] as of this encounter (statuses as of 04/29/2023) Immunizations Name Administration Dates Next Due COVID-19 [...] Sign Reading Time Taken Comments Blood Pressure 110/60 04/27/2023 4:26 PM EDT Pulse 72 04/27/2023 4:26 PM EDT Temperature 36.7 C (98.1 F) 04/27/2023 4:26 PM ED T Respiratory Rate 16 04/27/2023 4:26 PM EDT Oxygen Saturation 98% 04/27/2023 4:26 PM EDT Inhaled Oxygen Concentration - - [...] Progress Notes * Kami Rosado RN - 04/27/2023 4:18 PM EDT [facility] Promotions Manager BENJAMIN 1 Visit Date: 04/27/2023 Time: 4:20 PM Name: Marshall Palaciosmarianela Torre. : 1935 Current Concerns: Patient being seen for BENJAMIN 1 visit s/p hospitalization Pt recently hospitalized 04/20/23 after having his every other week labs done to monitor his anemia.Pt's hgb noted to be critically low at 5.1, down from 7.7 2 weeks prior. Pt had worsening weakness and a fall prior to the hospitalization. See dc summary. Pt was seen by GI and had colonoscopy and EGD done. EGD negative for bleeding. Colonoscopy + for polyps which were removed and internal hemorrhoids which were non bleeding. Pt was transfused with 3 units PRBCs. Discharge Hgb 8. Sees pcp tomorrow. No med changes made from hospitalization. Reconciled meds and list is up to date. Declines home PT at present. Ambulating better. Eating/drinking well. denies any urgent / acute concerns at present. Treatment / Plan: Primary care appt tomorrow, 04/28 Return with RNCM 05/03/23-check frequency of cbcs? Should we do weekly x 3-4 to ensure stable counts before returning to every other week? Follow up with pcp/Dr Sykes Reinforce red flags with -call us with changes in mobility/falls-any noted decline Physical Exam: BP 110/60 (BP Site: Right Arm, BP Position: Sitting, BP Cuff Size: Regular) | Pulse 72 | Temp 36.7 C (98.1 F) (Infrared ) | Resp 16 | SpO2 98% Pain 0 Physical Exam Cardiovascular: Rate and Rhythm: Normal rate and regular rhythm. Pulmonary: Effort: Pulmonary effort is normal. Breath sounds: Normal breath sounds. Abdominal: General: Bowel sounds are normal. Palpations: Abdomen is soft. Musculoskeletal: Right lower leg: No edema. Left lower leg: No edema. Skin: General: Skin is warm and dry. Neurological: Mental Status: He is alert and oriented to person, place, and time. Psychiatric: Mood and Affect: Mood normal. Problems/Symptoms: Review of Systems Reason unable to perform ROS: limited due to dementia and [place]. Constitutional: Negative. HENT: Negative. Respiratory: Negative for shortness of breath and wheezing. Cardiovascular: Negative for leg swelling. Gastrointestinal: Negative for abdominal pain. Genitourinary: Negative for difficulty urinating. Neurological: Negative for dizziness. Medication Reconciliation: (See medication list) Does patient take medications as ordered: Yes Patient Well Being: PHQ2/9: No questionnaires available. MAHC-10 Completed this Visit: Yes. MAHC-10: Reason Completed: Status post ED visit/hospital admission MAHC-10 Interventions: Fall education provided, reviewed/provided Fall brochure Advanced Care Planning: Living Will. , Healthcare POA. and POLST. Reinforcement/Education: Educated on home safety: Create a [...] Care, including self-management and medication regimen Patient's 'Red Flags': 1. Increased unsteadiness 2. Increased weakness, not able to walk on his own or get out of bed 3. Not eating or drinking per his usual Patient Needs to Remember: Call [facility] at with any new or worsening health concerns or problems, red flag symptoms. Referrals Needed: na Follow Up: Is there cellular connectivity/connectivity in the home? No Does the patient have internet in the home? Yes Patient encouraged to call the intake phone number for all urgent but not emergent issues. Is the patient new to [facility] within the last 30 days? no Is this a Transitions of Care visit? Yes, this is the 1st visit. Provider is in agreement with Plan of Care: Yes Scheduled to follow up with patient in 1 week. Kami Rosado RN 04/27/2023 4:20 PM documented in this encounter Plan of Treatment Upcoming Encounters Date Type Specialty Care Team Description 05/03/2023 Home Visit [facility] Kami Rosado RN [address] [place] [address] 05/05/2023 Laboratory Laboratory [facility] [address] [place] [address] 05/19/2023 Laboratory Laboratory Processing [facility] [address] [place] [address] 06/02/2023 Laboratory Laboratory Processing [facility] [address] [place] [address] 06/16/2023 Laboratory Laboratory Processing [facility] [address] [place] [address] 06/30/2023 Laboratory Laboratory Processing [facility] [address] [place] [address] 07/11/2023 Cardiac Studies Cardiology [facility] [address] [place] [address] 07/14/2023 Laboratory Laboratory Processing [facility] [address] [place] [address] 07/17/2023 Office Visit Dermatology Pilar Joseph PA-C [address] [place] [address] [place] [address] 07/26/2023 Office Visit Family Medicine Muriel Moreira MD [address] [place] [address] [place] [address] 07/28/2023 Laboratory Laboratory Processing [facility] [address] [place] [address] 08/11/2023 Laboratory Laboratory [place] [facility] [place] [address] [place] [address] 08/25/2023 Laboratory Laboratory Processing [facility] [address] [place] [address] 08/29/2023 Office Visit Cardiology Chris Choudhury PA-C [address] [place] [address] 09/08/2023 Laboratory Laboratory Processing [facility] [address] [place] [address] 09/22/2023 Laboratory Laboratory Processing [facility] [address] [place] [address] Scheduled Procedures Name Priority Associated Diagnoses Date/Ti [...] COPD 09/06/2023 09/06/2022 CKD PHOS USE SMARTSET 52862 09/07/2023 12/0 04/2022, 09/05/2022, 01/14/2022, Additional history exists Depression Screening, Annual for Pts 12 and Over 01/25/2024 01/24/2023 DIG LEVEL FOR MEDICATION MONITORING YEARLY 01/26/2024 01/25/2023, 04/17/2021, 03/09/2020, Additional history exists Albumin/Creatinine Ratio 01/27/2024 023, 01/14/2022, 08/14/2017, Additional history exists CKD HGB USE SMARTSET 32231 04/28/202404/28, 04/20/2023, 04/20/2023, Additional history exists COLONOSCOPY-EVERY [...] this encounter Medical Devices Implanted Type Area End Worker Device Identifier Shelf Expiration Date Model / Serial / Lot Screw T2 Alpha Lock 5x47.5mm - [id number] Implanted:Qty: 1 on 09/06/2022 by Sean Silva MD at [facility] Left: Leg Upper RICHELLE : TRAUMA 06/01/2032 [id number] / / [id number] documented as of this encounter Advance Directives Documents on File Type Date Recorded Patient Conference Interpreter Expl anation POLST 10/17/2022 [place] OR DER FOR LIFE-SUSTAINING TREATMENT POLST 09/10/2022 [place] [facility] FOR LIFE-SUSTAINING TREATMENT Latest Code Status on [...] Agen t (per Health Care Power of Accounting Administrative Assistant document) Reji Tello Dotts Adult Child First Alterna te Health Care Agent (per Health Care Power of Accounting Administrative Assistant document) Bowen Tello Adult Child First Alternate Health Care Agent (per Health Care Power of Accounting Administrative Assistant document) Care Teams Steam Shovel Oiler Relationship Specialty Start Date End Date Muriel Moreira MD [address] [place] [address] [place] [address] PCP - General Family Medicine 06/26/18 documented as of this encounter"
--- OUTSIDE RECORDS SUMMARY | 2023-08-22 03:58 | External Medical Summary | Summary of Care ---
Author Name Unknown Organization [facility] Address [address] [place] [address] Phone [phone] Care Team Providers Care Desulphurizer Operator Name Role Phone Muriel Moreira MD Primary Care Prov ider Reason for Visit * Reason Onset Date Comments Hospital Follow-Up Hospital foll ow up Hospital Follow-Up 04/28/2023 Encounter Details Date Type Department Care Team Description 04/28/2023 Office Visit Family Medicine [address] [id number] Sherron Lyles MD [address] [place] [address] [place] [address] Hospital discharge follow-up*; Symptomatic anemia; Multiple myeloma not having achieved remission (HCC); Adenomatous polyp of colon, unspecified part of colon; Type 2 diabetes mellitus with diabetic nephropathy, without long-term current use of insulin (HCC); 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 [...] Tobacco: Never Tobacco Cessation:Counseling Given: Not Answered Comments:1970 Alcohol Use Standard Drinks/Week Comments Not Currently 0 (1 standard drink = 0.6 oz pur e alcohol) rare Sex Assigned at Date Recorded Male 01/24/2023 3:56 PM E DT Job Start Date Occupation Industry Not on file Not on file Not on file documented as of this encounter Last Filed Vital Signs Vital Sign Reading Time Taken Comments Blood Pressure 130/60 04/28/2023 12:57 PM EDT Pulse 84 04/28/2023 12:57 PM EDT Temperature 36.3 C (97.4 F) 04/28/2023 12:57 PM E DT Respiratory Rate - - Oxygen Saturation 96% 04/28/2023 12:57 PM EDT Inhaled Oxygen Concentration - - Weight 93.4 kg (206 lb) 04/28/2023 12:57 PM EDT Height - - Body Mass Index 28.73 12/05/2022 3:18 PM EST documented in this [...] this encounter Patient Instructions * Patient Instructions* Sherron Lyles MD - 04/28/2023 1:07 PM EDT Taking Medicine Safely Medicine is given to help treat or prevent illness. But if you don't take it correctly, it might not help. It might even harm you. Your doctor or pharmacist can help you learn the right way to take your medicine. Listed below are some tips to help you take medicine safely. Safety Tips Have a routine for taking each medicine. Make it part of something you do each day, such as brushing your teeth or eating a meal. When you go to the hospital or your doctor's office, bring all your current medicines in their original boxes or bottles. If you can't do that, bring an up-to-date list of your medicines. Do not stop taking a prescription medicine unless your doctor tells you to. Doing so could make your condition worse. Do not share medicines. Let your doctor and pharmacist know of any allergies you have. Taking prescription medicines with alcohol, street drugs, herbs, supplements, or even some gesy-scs-geacfqj medicines can be harmful. Talk to your doctor or pharmacist before using any of these things while taking a prescription medicine. When filling your prescriptions, try using the same pharmacy for all your medicines. If not, let the pharmacist know what medicines you are already on. Keep medicines out of the reach of children and pets. Do not use medicine that has or that doesn't look or smell right. Get rid of it properly. To find out the right way to get rid of medicine: Call your [facility]'s household trash and recycling service and ask if a drug take-back program is available in your community. Call your local pharmacy and ask the right way to get rid of the medicine. Go to http://www.fda.gov/ForConsumers/ConsumerUpdates/ple740060 to learn how to get rid of medicines safely. Using Generic Medicines Medicines have brand names and generic (chemical) names. When a medicine is first made, it is sold only under its brand name. Later, it can be made and sold as a generic. Generic medicines cost less than brand-name medicines and most work just as well. Most people can use the generic medicine instead of the brand-name medicine, unless their doctor says otherwise. 4440-9834 [facility], [address] [place] [address], [place] [address]. All rights reserved. This information is not intended as a substitute for professional medical care. Always follow your healthcare professional's instructions. Coping with Your Diagnosis of a Chronic Health Condition If you have a chronic health condition, you have a problem that may not go away over time. Heart disease, asthma, arthritis, and diabetes are just a few of the chronic conditions that exist. Right now, these conditions have no known cure. But you can take an active role in managing your health. Coping with Your Diagnosis If you've just learned about your health condition, you may be angry, depressed, or afraid. Or you might feel relieved just to know what's wrong. Even if you've known about your health problem for a while, adjusting to it can be hard. But learning about your condition can help you cope. Look for books at your local library. If you have access to a computer, check the Internet. Or contact a group that focuses on your specific problem. Accepting Change Change is hard for most people. Yet right now you may be facing many changes. What you eat or the way you work may change. Your moods, and even your symptoms, might vary from day to day. Although it isn't easy, learning to accept change can help you feel more in control. Taking Control Feeling you have control can make living with your condition easier. Discuss treatment options withyour health care provider. The more you know, the more active you can be in your care. Moving Forward You may wonder whether you will be able to do the things you've always done. That depends on your age, the condition you have, and your goals. To make the most of each day, try to build caring relationships, be active, and eat right. Also, do your best to keep a sense of humor. 8134-1067 [facility], [address] [place] [address]. All rights reserved. This information is not intended as a substitute for professional medical care. Always follow your healthcare professional's instructions. Taking an Active Role in Your Medicines Take the time to learn about your medicine. For instance, why are you taking it? What does it do? Work with your doctor or other health care providers to get the answers you need. Talk to your pharmacist about how to take each medicine, and ask for a fact sheet on each one. Ask Questions About Your Medicine What is the name of the medicine? Why do I need to take it? When should I take it? How should I take it: with water? with food? on an empty stomach? How much do I take? What do I do if I miss a dose? What side effects could it cause and which ones should I call the doctor about? Are there any foods or medicines I should avoid while taking this medicine? Keeping track of your medications? Name of medicine: Taken for: Dose: Time(s) to take it: Take an Active Role Fill all your prescriptions at the same pharmacy. This keeps your medicine history in one place. Talk to the pharmacist. Make sure you understand how to take each medicine. Ask for a fact sheet about each one. Tell your doctor and pharmacist about all the prescription and obfw-opv-uwutjjl medicines you take.This includes vitamins and herbal remedies. Tell your doctor and pharmacist if you have any medical conditions or allergies to any medicine or food, or if you are or . Keep a list of all your medicines. Use the sample to the right as a guide for the type of information needed. 7046-3797 [facility], [address] [place] [address], [place] [address]. All rights reserved. This information is not intended as a substitute for professional medical care. Always follow your healthcare professional's instructions. documented in this encounter Progress Notes * Sherron Lyles MD - 04/28/2023 1:07 PM EDT SUBJECTIVE: Marshall Tello Sr. is a 88 year old male. Chief Complaint Patient presents with Hospital Follow-Up Hospital follow up Hospital Follow-Up Recent Admission: Patient was recently admitted to [facility] on 04/20/23. The date of discharge was 04/25/23. Discharge report received and reviewed. HPI: Brief Clinical History Mr. Tello is an 88 year old man last seen in Family Medicine 3 months ago (01-24-23). 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), Longstanding persistent atrial fibrillation (HCC), Multiple myeloma (HCC), multiple myeloma or plasmacytoma, Other specified peripheral vascular diseases (HCC), Tachy-lorna syndrome (HCC), Type 2 diabetes mellitus with diabetic nephropathy, without long-term current use of insulin (HCC), Type 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 (HCC), Type 2 diabetes mellitus with stage 3a chronic kidney disease, without long-term current use of insulin (HCC), and vascular disease, due for eval of 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 Patient of Dr. Chowdary here for hospital follow-up. Admitted to [facility] 04/20/23-04/25/23 with symptomatic anemia of 5.1. He was very weak and had a fall the week leading up to admission. He had outpatient labs done 04/20/23 showing hemoglobin 5.1 and was called by hematology and referred to the ED. He was very pale and could not hold his head up or even eat. Patient's hemoglobin on 04/05/23 had been 7.7. patient did not have any bright red rectal bleeding and had dark stools but is also on iron. He follows with hematology for multiple myeloma. He has CAD. He was transfused a total of 3 units of PRBCs. His stool was hemeoccult positive. He was seen byGI and had EGD and colonoscopy done. EGD was negative with no signs of bleeding. Colonoscopy was positive for multiple sessile polyps, which were removed, and non-bleeding internal hemorrhoids. He had CT of the cervical spine, facial bones, and head due to the fall and were negative for acute changes. His hemoglobin was 8 on discharge. No medication changes were made. Fell last week and broke his glasses before he was admitted. Has been doing better since discharge. Is walking better and appetite has improved. He is enrolled with [facility], which is going well. Was seen by the RN yesterday and scheduled for another follow-up on 05/03/23. Patient Active Problem List Diagnosis Code CORONARY ATHEROSCLEROSIS OF UNSPECIFIED TYPE OF VESSEL, [place] GRA[place] I25.10 Elevated prostate specific antigen (PSA) R97.20 BPH without obstruction/lower urinary tract symptoms N40.0 erectile dysfunction N52.9 Dyslipidemia, goal LDL below 70 E78.5 Tachy-lorna syndrome ([facility]) I49.5 Asthma, moderate persistent J45.40 Type 2 diabetes mellitus with hemoglobin A1c goal of less than 7.5% ([facility]) E11.9 Essential hypertension with goal blood pressure less than 140/90 I10 Iliac artery aneurysm ([facility]) I72.3 Longstanding persistent atrial fibrillation ([facility]) I48.11 Ischemic cardiomyopathy I25.5 Aortic valve insufficiency I35.1 Automatic implantable cardioverter-defibrillator in situ Z95.810 Encounter for examination for normal comparison and control in clinical research program Z00.6 Gastroesophageal reflux disease with esophagitis K21.00 Type 2 diabetes mellitus with diabetic nephropathy, without long-term current use of insulin ([facility]) E11.21 Sensorineural hearing loss (SNHL) of both ears H90.3 Hx of nonmelanoma skin cancer Z85.828 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, R31.9 Chronic atrial fibrillation ([facility]) I48.20 Primary open-angle glaucoma, left eye, mild stage H40.1121 Skin lesion L98.9 DISH (diffuse idiopathic skeletal hyperostosis) M48.10 Chronic obstructive pulmonary disease ([facility]) J44.9 Other specified peripheral vascular diseases ([facility]) I73.89 Type 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 (HCC) E11.51 DM type 2 with diabetic peripheral neuropathy ([facility]) E11.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) I13.0, I50.42, N18.31 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 ([facility]) N18.31, D63.1 Iron deficiency anemia D50.9 Type 2 diabetes mellitus with stage 3a chronic kidney disease, without long- term current use ofinsulin ([facility]) E11.22, N18.31 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[facility]) G30.1, F02.80 Multiple myeloma ([facility]) C90.00 Infrarenal abdominal aortic aneurysm (AAA) without rupture ([facility]) 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 ([facility]) I50.42 Current Outpatient Medications Medication Sig Dispense Refill OXYGEN 2L/min via nasal cannula 24 hours continous, please provide portables as well 1 Each 0 Latanoprost 0.005 % Ophthalmic Solution (Xalatan) Instill into both eyes 1 Drop in the morning.2.5 mL 0 Ventolin HFA 108 (90 Base) MCG/ACT Inhalation Aerosol Solution Inhale by mouth 2 Puffs 4 times a day . 18 g 0 Magnesium Oxide 400 MG Oral Tablet one per day 34 Tablet 11 Fluticasone-Salmeterol 250-50 MCG/ACT Inhalation Aerosol Powder Breath Activated (Advair Diskus) Inhale by mouth 1 Puff in the morning AND 1 Puff before bedtime. 180 Each 0 Multivitamin Adult Oral Tablet Take by mouth [...] 2 times a day with morning and eveningmeals. 100 Tablet 0 Clopidogrel Bisulfate 75 MG Oral Tablet (pLAVix) TAKE ONE TABLET BY MOUTH IN THE MORNING 90 Tablet 3 Furosemide 40 MG Oral Tablet (Lasix) Take 1 Tablet by mouth in the morning. 100 Tablet 3 Potassium Chloride Emma ER 20 MEQ Oral Tablet Extended Release TAKE 1 TABLET BY MOUTH EVERY MORNING 90 Tablet 0 Digoxin 125 MCG Oral Tablet (Lanoxin) TAKE ONE TABLET 3 days per week 36 Tablet 3 glipiZIDE ER 5 MG Oral Tablet Extended Release 24 Hour (glipiZIDE XL) Take 1 Tablet by mouth inthe morning. 30 minutes before a meal.. 30 Tablet 5 Dutasteride 0.5 MG Oral Capsule (Avodart) Take 1 Capsule by mouth in the morning. 90 Capsule 1 Pantoprazole Sodium 40 MG Oral Tablet Delayed Release (Protonix) Take 1 Tablet by mouth daily. 90 Tablet 1 No current facility-administered medications for this visit. Current and discharge medications have been reconciled. Review of patient's allergies indicates: Allergen Reactions James Inhibitors cough on prinivil Hydrocodone Family states AMS change when taken Prednisone Blisters in throat Sulfa Antibiotics dysurea CBC Results: Results for orders placed or performed in visit on 04/21/23 CBC Result Value Ref Range WBC 5.68 4.00 - 10.80 K/uL RBC 1.55 4.50 - 5.25 M/uL HGB 5.1 (LL) 14.0 - 16.8 g/dL HCT 17.5 (L) 40.0 - 48.4 % MCV 112.9 82.0 - 99.5 fL MCH 32.9 27.0 - 34.0 pg MCHC 29.1 32.0 - 36.0 g/dL RDW 18.0 11.5 - 15.5 % PLT 259 140 - 400 K/uL MPV 9.7 6.6 - 11.1 fL Hemoglobin AIC Results: Lab Results Component Value Date/Time HEMOGLOBIN A1C - [facility] 9.3 (H) 01/25/2023 08:06 AM HEMOGLOBIN A1C - [facility] 7.8 (H) 09/06/2022 03:24 AM HEMOGLOBIN A1C - [facility] 6.4 (H) 01/14/2022 04:27 PM HEMOGLOBIN A1C - [facility] 6.9 (H) 03/09/2020 12:04 PM HEMOGLOBIN A1C - [facility] 6.6 (H) 07/03/2019 11:10 AM HEMOGLOBIN A1C - [facility] 7.1 (H) 01/22/2019 11:30 AM Basic Panel Results: Results for orders placed or performed during the hospital encounter of 09/05/22 BASIC METABOLIC PANEL Result Value Ref Range BUN 25 (H) 6 - 20 mg/dL Creatinine 1.2 0.6 - 1.2 mg/dL Estimated Glomerular Filtration Rate 61 >=60 mL/min Sodium 140 135 - 146 mmol/L Potassium 3.5 3.5 - 5.1 mmol/L Chloride 106 98 - 107 mmol/L CO2 25 22 - 32 mmol/L Anion Gap 9 7 - 15 mmol/L Glucose 141 (H) 70 - 120 mg/dL Calcium 8.1 (L) 8.4 - 10.2 mg/dL OBJECTIVE: BP 130/60 | Pulse 84 | Temp 36.3 C (97.4 F) (Tympanic) | Wt 93.4 kg (206 lb) | SpO2 96% | BMI 28.73 kg/m | BSA 2.16 m Review Of Systems: Skin: pt denies, new or changing moles, pigmentation change, rash, scaling, itching, bruising, lumps or bumps, hair changes, nail changes Eyes: negative Ears/Nose/Throat: pt denies:, deafness, tinnitus, vertigo Respiratory: negative, cough, sputum, asthma, wheezing and dyspnea on exertion Cardiovascular: pt denies:, palpitations, tachycardia, irregular heart beat, chest pain, exertionalchest pain or pressure, paroxysmal nocturnal dyspnea and lower extremity edema Gastrointestinal: pt. denies:, abdominal pain, bloating or excess gas, dysphagia, nausea, heartburn, blood in stool or black stools, constipation or change in bowel habits, diarrhea Genitourinary: pt denies:, nocturia, dysuria and frequency Musculoskeletal: pt denies significant joint pain or stiffness Neurologic: pt denies:, headaches, syncope and seizures Psychiatric: pt denies:, sleep disturbance, anxiety, nervousness and depression Hematologic/Lymphatic/Immunologic: +as per HPI Endocrine: pt denies:, thyroid disorder and + diabetes PHYSICAL EXAM: General: alert, no distress, well nourished and well developed Head: Normocephalic, No masses, lesions, tenderness or abnormalities Eye Exam: PERRLA, extraocular movements intact, conjunctiva are pink and non- injected, sclera clear Ears: External ears normal, Canals clear, TM's Normal Nose: no mucosal erythema, no mucosal edema, no purulent discharge Oropharynx: no exudate, no erythema, lips, buccal mucosa, and tongue normal and mucous membranes are moist Neck: supple, no adenopathy, no bruits Heart: no gallops and irregularly irregular Lungs: chest symmetric with normal AP diameter, no chest deformities noted, no chest wall tenderness, lungs clear to auscultation Extremities: no edema, no clubbing, no cyanosis Neuro Exam: alert & oriented x 3 with fluent speech, no focal motor/sensory deficits other thanvery hard of hearing ASSESSMENT: Hospital discharge follow-up (Primary) - DISCH MED RECON CUR MED LIS Symptomatic anemia--s/p 3 units PRBCs. Recheck CBC today. Hemoglobin noted to be 8 on discharge from hospital. Scopes negative for source of acute blood loss but did have several adenomatous colon polyps removed and was hemepositive so possibly acute on chronic anemia from blood loss from the polyps and internal hemorrhoids. - CBC; Future; Expected date: 04/28/2023 Multiple myeloma not having achieved remission (HCC)--follow-up with hematology as directed. - CBC; Future; Expected date: 04/28/2023 Adenomatous polyp of colon, unspecified part of colon--s/p resection. 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 PLAN: Continue present medication(s): Schedule labs: CBC today. Discharge hemoglobin noted to be 8. Follow-up with [facility] 05/03/23 as scheduled. Follow up as scheduled. Sherron Lyles MD documented in this encounter Nursing Notes * Kalia Bansal LPN - 04/28/2023 12:47 PM EDT Chief Complaint Patient presents with Hospital Follow-Up Hospital follow up [facility] ER follow up. [facility] visit due to possible GI bleed and Anemia Adm date:04/20/23 Discharge date:04/25/23 Dx Anemia tx BRBC x 3 The patient has been properly identified by confirmation of name and date of . documented in this encounter Plan of Treatment Upcoming Encounters Date Type Specialty Care Team Description 05/03/2023 Home Visit [facility] Kami Rosado RN [address] [facility] [place] [address] 05/05/2023 Laboratory Laboratory [place] [facility] [place] [facility] Draw [address] [place] [address] 05/19/2023 Laboratory Laboratory Processing [facility] [address] [place] [address] 06/02/2023 Laboratory Laboratory Processing [facility] [address] [place] [address] 06/16/2023 Laboratory Laboratory Processing [facility] [address] [place] [address] 06/30/2023 Laboratory Laboratory Processing [facility] [address] [place] [address] 07/11/2023 Cardiac Studies Cardiology [address] [address] 07/14/2023 Laboratory Laboratory Processing [facility] [address] [place] [address] 07/17/2023 Office Visit Dermatology Pilar Joseph PA-C [address] [place] [address] [place] [address] 07/26/2023 Office Visit Family Medicine Muriel Moreira MD [address] [place] [address] [place] [address] 07/28/2023 Laboratory Laboratory Processing [facility] [address] [place] [address] 08/11/2023 Laboratory Laboratory Processing [facility] [address] [place] [address] 08/25/2023 Laboratory Laboratory Processing [facility] [address] [place] [address] 08/29/2023 Office Visit Cardiology Chris Choudhury PA-C [address] [place] [address] 09/08/2023 Laboratory Laboratory Processing [facility] [address] [place] [address] 09/22/2023 Laboratory Laboratory Processing [facility] [place] [address] [place] [address] Pending Results Name Type Priority Associated Diagnoses Date /Time CBC Lab Routine Symptomatic anemia Multiple myeloma not having achieved remission (HCC) 04/28/2023 1:29 PM EDT Scheduled Orders Name Type Priority Associated Diagnoses Orde r Schedule CBC Lab Routine Symptomatic anemia Multiple myeloma not having achieved remission (HCC) Expected: 04/28/2023 (Approximate), Expires: 04/27/2024 Scheduled Procedures Name Priority Associated Diagnoses Date/Ti [...] COPD 09/06/2023 09/06/2022 CKD PHOS USE SMARTSET [id number] 09/07/2023 12/0 04/2022, 09/05/2022, 01/14/2022, Additional history exists Depression Screening, Annual for Pts 12 and Over 01/25/2024 01/24/2023 DIG LEVEL FOR MEDICATION MONITORING YEARLY 01/26/2024 01/25/2023, 04/17/2021, 03/09/2020, Additional history exists Albumin/Creatinine Ratio 01/27/2024 023, 01/14/2022, 08/14/2017, Additional history exists CKD HGB USE SMARTSET [id number] 04/20/202404/20, 04/20/2023, 04/05/2023, Additional history exists COLONOSCOPY-EVERY [...] this encounter Medical Devices Implanted Type Area Polystyrene Molding Machine Tender Device Identifier Shelf Expiration Date Model / Serial / Lot Screw T2 Alpha Lock 5x47.5mm - [id number] Implanted:Qty: 1 on 09/06/2022 [place] [facility] [place]: [place] Upper RICHELLE : TRAUMA 06/01/2032 [id number] / / [id number] documented as of this encounter Visit Diagnoses Diagnosis Hospital discharge follow-up- Primary Other follow-up examination Symptomatic anemia Multiple myeloma not having achieved remission (HCC) Multiple myeloma, without mention of having achieved remission Adenomatous polyp of colon, unspecified part of colon Type 2 diabetes mellitus with diabetic nephropathy, 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) Longstanding persistent atrial fibrillation (HCC) Moderate persistent asthma without complication Unspecified asthma documented in this encounter Advance Directives Documents on File Type Date Recorded Patient Service Station Operator Expl anation POLST 10/17/2022 [place] DERS [...] Agen t (per Health Care Power of Flat Lock Machine Operator document) Reji Tello Dotmelanie Adult Child First Alterna te Health Care Agent (per Health Care Power of Flat Lock Machine Operator document) Bowen Tello Adult Child First Alternate Health Care Agent (per Health Care Power of Flat Lock Machine Operator document) Care Teams Desulphurizer Operator Relationship Specialty Start Date End Date Muriel Moreira MD [address] [place] [address] [place] [address] PCP - General Family Medicine 06/26/18 documented as of this encounter"
--- OUTSIDE RECORDS SUMMARY | 2023-08-22 03:58 | External Medical Summary ---
Author Name Unknown Address Unknown Organization K01:[facility] [place] [facility] [address] [facility] [address] [facility] [address] Laboratory Report Ordering Provider Test Date Status GUS BURLESON 04/28/2023 13:29:22 Final Observation Date Value Abnormality Reference (Units ) Status WBC, Total 04/28/2023 13:29:22 4.05 4.00-10.80 (K/uL) Final RBC 04/28/2023 13:29:22 2.73 4.50-5.25 (M/uL) Final Hemoglobin 04/28/2023 13:29:22 8.7 Below low normal 14.0-16.8 (g/dL) Final HCT 04/28/2023 13:29:22 29.6 Below low normal 40.0-48.4 (%) Final MCV 04/28/2023 13:29:22 108.4 82.0-99.5 (fL) Final MCH 04/28/2023 13:29:22 31.9 27.0-34.0 (pg) Final MCHC 04/28/2023 13:29:22 29.4 32.0-36.0 (g/dL) Final RDW 04/28/2023 13:29:22 17.1 11.5-15.5 (%) Final Platelets 04/28/2023 13:29:22 241 140-400 (K/uL) Final MPV 04/28/2023 13:29:22 9.8 6.6-11.1 (fL) Final Nucleated erythrocytes/100 leukocytes [Ratio] in Blood by Automated count 04/28/2023 13:29:22 0 <=0 (/100 WBCs) Final Performing Location [facility] [place] [address] [place] [address]
--- OUTSIDE RECORDS SUMMARY | 2023-08-22 03:58 | External Medical Summary | Summary of Care ---
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 leg ; Rt. yazdanism 07/0207/18/2002 07/15/2015 Dyslipidemia, goal to be determined [...] 05/03/2023 10:17 AM EDT [facility] Icu BENJAMIN 3 Visit Date: 05/03/2023 Time: 10:17 [...] Results to Dr Sykes who manages Continue [facility] palliative Physical Exam: BP 144/64 (BP [...] in stool Patient Needs to Remember: Call [facility] at with any new or worsening health concerns or problems, red flag symptoms. Referrals Needed: NA Follow Up: Is there cellular connectivity/connectivity in the home? No Does the patient have internet in the home? Yes Patient encouraged to call the intake phone number for all urgent but not emergent issues. Is the patient new to [facility] within the last 30 days? No, Assess appropriateness for upcoming telehealth visits. Cancel telehealth visits & schedule home visit with care steam crane operator(s)as indicated. Provider is in agreement with Plan of Care: Yes Scheduled to follow up with patient in 2 weeks. Kami Rosado RN 05/03/2023 10:17 AM documented in this encounter Plan of Treatment Upcoming Encounters Date Type Specialty Care Team Description 05/05/2023 Laboratory [facility] [address] [place] [address] 05/15/2023 Home Visit [facility] Lila Brownlee, [address] [place] [address] 05/19/2023 Laboratory [facility] [address] [place] [address] 06/02/2023 Laboratory [facility] [address] [place] [address] 06/16/2023 Laboratory [facility] [address] [place] [address] 06/30/2023 Laboratory Laboratory [facility] [address] [place] [address] 07/11/2023 Cardiac Studies Cardiology [facility] [address] [address] 07/14/2023 Laboratory [facility] [address] [place] [address] 07/17/2023 Office Visit Dermatology Pilar Joseph PA-C [address] [place] [address] THA Vasquez [phone] 07/26/2023 Office Visit Family Medicine Muriel Moreira MD [address] [place] [address] [place] [address] 07/28/2023 Laboratory Laboratory [facility] [address] [place] [address] 08/11/2023 Laboratory [facility] [address] [place] [address] 08/25/2023 Laboratory Laboratory Processing [facility] [address] [place] [address] 08/29/2023 Office Visit Cardiology Chris Choudhury PA-C [address] [place] [address] 09/08/2023 Laboratory [place] [facility] [place] [facility] [address] [place] [address] 09/22/2023 Laboratory Laboratory [place] [facility] [place] [facility] [address] [place] [address] Scheduled Procedures Name Priority Associated Diagnoses Date/Ti [...] COPD 09/06/2023 09/06/2022 CKD PHOS USE SMARTSET 81940 09/07/202304/2022, 09/05/2022, 01/14/2022, Additional history exists Depression Screening, Annual for Pts 12 and Over 01/25/2024 01/24/2023 DIG LEVEL FOR MEDICATION MONITORING YEARLY 01/26/2024 01/25/2023, 04/17/2021, 03/09/2020, Additional history exists Albumin/Creatinine Ratio 01/27/2024 023, 01/14/2022, 08/14/2017, Additional history exists CKD HGB USE SMARTSET 82949 04/28/202404/28, 04/20/2023, 04/20/2023, Additional history exists COLONOSCOPY-EVERY [...] this encounter Medical Devices Implanted Type Area Vp Business Development Device Identifier Shelf Expiration Date Model / Serial / Lot Screw T2 Alpha Lock 5x47.5mm - [id number] Implanted:Qty: 1 on 09/06/2022 [place] [facility] [place] Upper RICHELLE : TRAUMA 06/01/2032 [id number] / / [id number] documented as of this encounter Advance Directives Documents on File Type Date Recorded Patient Home Stager Expl anation POLST 10/17/2022 [place] DERS FOR LIFE-SUSTAINING TREATMENT POLST 09/10/2022 [place] OR [...] Agen t (per Health Care Power of Shipping Team Leader document) Rejijohana Tello Dotts Adult Child First Alterna te Health Care Agent (per Health Care Power of Shipping Team Leader document) Bowen Tello Adult Child First Alternate Health Care Agent (per Health Care Power of Shipping Team Leader document) Care Teams Completions Manager Relationship Specialty Start Date End Date Muriel Moreira MD [address] [place] [address] [place] [address] PCP - General Family Medicine 06/26/18 documented as of this encounter"
--- OUTSIDE RECORDS SUMMARY | 2023-08-22 03:59 | External Medical Summary | Summary of Care ---
Author Name Unknown Organization [facility] Address [address] [facility] [address] Phone [phone] Care Team Providers Care Material Handler Name Role Phone Muriel Moreira MD Primary Care Prov ider Encounter Details Date Type Department Care Team Description 04/25/2023 Result Scan Unspecified Department Griffin Stokes, [address] [place] [address] <No scans attached> Allergies Active Allergy Reactions Severity Noted Date Comments James Inhibitors 09/10/2002 cough on prinivil Hydrocodone 09/05/2022 Family states AMS change when taken Prednisone 05/26/2011 Blisters in throat Sulfa Antibiotics 03/19/2001 dysurea documented as of this encounter (statuses as of 04/27/2023) Medications Medication Sig Dispensed Refills Start Date [...] 75 MG Oral Tablet (pLAVix)Indications: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 Coli [...] glenn ek & Lt. leg ; Rt. yazidism 07/0207/18/2002 07/15/2015 Dyslipidemia, goal to be determined [...] as of this encounter (statuses as of 04/27/2023) Immunizations Name Administration Dates Next Due COVID-19 [...] Encounters Date Type Specialty Care Team Description 04/28/2023 Office Visit Family Medicine Sherron Lyles MD [address] [place] [address] [place] Vas[place] [phone] 05/05/2023 Laboratory [facility] [address] [place] [address] 05/19/2023 Laboratory Laboratory [facility] [address] [place] [address] 06/02/2023 Laboratory [facility] [address] [place] [address] 06/16/2023 Laboratory [facility] [place] [address] [place] [address] 06/30/2023 Laboratory Laboratory Processing [facility] [address] [place] [address] 07/11/2023 [facility] [address] [address] 07/14/2023 Laboratory [facility] [address] [place] [address] 07/17/2023 Office Visit Dermatology Pilar Joseph PA-C [address] [place] [address] [place] [address] 07/26/2023 Office Visit Family Medicine Muriel Moreira MD [address] [place] [address] [place] [address] 07/28/2023 Laboratory Laboratory [facility] [place] [address] [place] [address] 08/11/2023 Laboratory Laboratory Processing [facility] [address] [place] [address] 08/25/2023 Laboratory Laboratory Processing [facility] [place] [address] [place] [address] 08/29/2023 Office Visit Cardiology Chris Choudhury PA-C [address] [place] [address] 09/08/2023 Laboratory Laboratory Processing [facility] [address] [place] [address] 09/22/2023 Laboratory Laboratory Processing [facility] [address] [place] [address] Health Maintenance Due Date Last Done Comments [...] COPD 09/06/2023 09/06/2022 CKD PHOS USE SMARTSET 87710 09/07/2023 120 04/2022, 09/05/2022, 01/14/2022, Additional history exists Depression Screening, Annual for Pts 12 and Over 01/25/2024 01/24/2023 DIG LEVEL FOR MEDICATION MONITORING YEARLY 01/26/2024 01/25/2023, 04/17/2021, 03/09/2020, Additional history exists Albumin/Creatinine Ratio 01/27/2024 023, 01/14/2022, 08/14/2017, Additional history exists CKD HGB USE SMARTSET 48525 04/20/202404/20, 04/20/2023, 04/05/2023, Additional history exists Zoster Vaccines Discontinued 02/10/2012 [...] this encounter Medical Devices Implanted Type Area Vacuum Extractor Operator Device Identifier Shelf Expiration Date Model / Serial / Lot Screw T2 Alpha Lock 5x47.5mm - [id number] Implanted:Qty: 1 on 09/06/2022 by Sean Silva MD at [place] [facility] [place] Left: Leg Upper RICHELLE : TRAUMA 06/01/2032 [id number] / / [id number] documented as of this encounter Procedures Procedure Name Priority Date/Time Associated Diagnosis Comments PATHOLOGY SCANNED RESULT 04/25/2023 documented in this encounter Results * PATHOLOGY SCANNED RESULT (04/25/2023) 04/25/2023 Griffin Stokes DO PATHOLOGY documented in this encounter Advance Directives Documents on File Type Date Recorded Patient Failure Analysis Technician Expl anation POLST 10/17/2022 [place] [...] Agen t (per Health Care Power of Neck Fitter document) Reji Tello Dotts Adult Child First Alterna te Health Care Agent (per Health Care Power of Neck Fitter document) Bowen Tello Adult Child First Alternate Health Care Agent (per Health Care Power of Neck Fitter document) Care Teams Material Handler Relationship Specialty Start Date End Date Muriel Moreira MD [address] [place] [address] [place] [phone] PCP - General Family Medicine 06/26/18 documented as of this encounter
--- OUTSIDE RECORDS SUMMARY | 2023-08-22 03:59 | External Medical Summary | Summary of Care ---
Author Name Unknown Organization [facility] Address [address] [place] [address] Phone [phone] Care Team Providers Care Video Operator Name Role Phone Muriel Moreira MD Primary Care Prov ider Reason for Visit * Reason Onset Date Comments Test Results 04/20/2023 Encounter Details Date Type Department Care Team Description 04/20/2023 Telephone Hematology/Oncology Treatment, [place] [address] [place] [address] Pietro Sykes MD [address] [place] [address] Test Results Allergies Active Allergy Reactions Severity Noted Date Comments James Inhibitors 09/10/2002 cough on prinivil Hydrocodone 09/05/2022 Family states AMS change when taken Prednisone 05/26/2011 Blisters in throat Sulfa Antibiotics 03/19/2001 dysurea documented as of this encounter (statuses as of 04/20/2023) Medications Medication Sig Dispensed Refills Start Date [...] as needed 100 Strip 3 05/20/2022 Active Cloud DynamicsTouch UltraSoft LancetsIndications:Typ e 2 diabetes mellitus with [...] EVERY DAY 90 Tablet 3 06/28/2022 Active Pantoprazole Sodium 40 MG Oral Tablet Delayed Release (Protonix)Indications: GERD (gastroesophageal reflux disease) TAKE ONE TABLET BY MOUTH EVERY DAY 90 Tablet 1 09/12/2022 Active Ferrous Sulfate 325 (65 Fe) MG [...] 75 MG Oral Tablet (pLAVix)Indications: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 90 Capsule 1 04/14/2023 Active documented as of this encounter (statuses as of 04/20/2023) Active Problems Problem Noted Date Chronic combined [...] as of this encounter (statuses as of 04/20/2023) Resolved Problems Problem Noted Date Resolved Date [...] infection without hematuria 202101/24/2023 Overview: Xavier to [facility] 04/20-04/29 urosepsis multi drug resistant E. [...] glenn ek & Lt. leg 4/98; Rt. latter-day 07/0207/18/2002 07/15/2015 Dyslipidemia, goal to be determined [...] as of this encounter (statuses as of 04/20/2023) Immunizations Name Administration Dates Next Due COVID-19 [...] Miscellaneous Notes * Telephone Encounter - Tiny Stepehnson RN - 04/20/2023 3:52 PM EDT Wen called and spoke to patients - patient is feeling terrible, she is agreeable to taking him to ER. Called ER and spoke to Bere to make them aware. Dr Sykes: FYI * Telephone Encounter - Tiny Stephenson RN - 04/20/2023 3:24 PM EDT Received TT from lab- hgb 5.1. Patient will need to go to ER for transfusion. documented in this encounter Plan of Treatment Upcoming Encounters Date Type Specialty Care Team Description 04/21/2023 Laboratory Laboratory Processing [facility] [place] Draw [address] [place] [address] 04/24/2023 Home Visit [facility] Kami Rosado RN [address] [place] [address] 05/05/2023 Laboratory [facility] [address] [place] [address] 05/19/2023 Laboratory [facility] [address] [place] [address] 06/02/2023 Laboratory Laboratory [facility] [address] [place] [address] 06/16/2023 Laboratory [facility] [address] [place] [address] 06/30/2023 Laboratory Laboratory [facility] [address] [place] [address] 07/11/2023 Cardiac Studies Cardiology [facility] [address] [place] [address] 07/14/2023 Laboratory Laboratory [facility] [address] [place] [address] 07/17/2023 Office Visit Dermatology Pilar Joseph PA-C [address] [place] [address] [place] [address] 07/26/2023 Office Visit Family Medicine Muriel Moreira MD [address] [place] [address] [place] [address] 07/28/2023 Laboratory Laboratory [facility] [address] [place] [address] 08/11/2023 Laboratory Laboratory Processing [facility] [place] [address] [place] [address] 08/25/2023 Laboratory Laboratory Processing [facility] [place] [address] [place] [address] 08/29/2023 Office Visit Cardiology Chris Choudhury PA-C [address] [place] [address] 09/08/2023 Laboratory Laboratory Processing [facility] [place] [address] [place] [address] 09/22/2023 Laboratory Laboratory Processing [facility] [place] [address] [place] [address] Health Maintenance Due Date Last Done Comments [...] COPD 09/06/2023 09/06/2022 CKD PHOS USE SMARTSET 02172 09/07/202304/2022, 09/05/2022, 01/14/2022, Additional history exists Depression Screening, Annual for Pts 12 and Over 01/25/2024 01/24/2023 DIG LEVEL FOR MEDICATION MONITORING YEARLY 01/26/2024 01/25/2023, 04/17/2021, 03/09/2020, Additional history exists Albumin/Creatinine Ratio 01/27/2024 023, 01/14/2022, 08/14/2017, Additional history exists CKD HGB USE SMARTSET 40439 04/20/202404/20, 04/20/2023, 04/05/2023, Additional history exists Zoster [...] this encounter Medical Devices Implanted Type Area Transit Specialist Device Identifier Shelf Expiration Date Model / Serial / Lot Screw T2 Alpha Lock 5x47.5mm - [id number] Implanted:Qty: 1 on 09/06/2022 by Sean Silva MD at [facility] Left: Leg Upper RICHELLE : TRAUMA 06/01/2032 [id number] / / [id number] documented as of this encounter Advance Directives Documents on File Type Date Recorded Patient General Operations Agent Expl anation POLST 10/17/2022 [place] OR DERS [...] Agen t (per Health Care Power of Men'S Custom Hair Piece Consultant document) Reji Leobardo Dotts Adult Child First Alterna te Health Care Agent (per Health Care Power of Men'S Custom Hair Piece Consultant document) Bowen Tello Adult Child First Alternate Health Care Agent (per Health Care Power of Men'S Custom Hair Piece Consultant document) Care Teams Video Operator Relationship Specialty Start Date End Date Muriel Moreira MD [address] [place] [address] [place] [address] PCP - General Family Medicine 06/26/18 documented as of this encounter
--- OUTSIDE RECORDS SUMMARY | 2023-08-22 03:59 | External Medical Summary | Summary of Care ---
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 [...] without hematuria 202101/24/2023 Overview: Xavier to [facility] 04/20-04/29 urosepsis multi drug resistant E. [...] Office Visit Family Medicine Sherron Lyles MD [address] [place] [address] THA Vasquez [phone] 05/05/2023 Laboratory Laboratory Processing [facility] [address] [place] [address] 05/19/2023 Laboratory Laboratory Processing [facility] [address] [place] [address] 06/02/2023 Laboratory Laboratory Processing [facility] [address] [place] [address] 06/16/2023 Laboratory Laboratory Processing [facility], [facility] Draw [address] [place] [address] 06/30/2023 Laboratory Laboratory Processing [facility], [facility] [address] [place] [address] 07/11/2023 [facility] [address] [address] 07/14/2023 Laboratory Laboratory Processing [facility] [address] [place] [address] 07/17/2023 Office Visit Dermatology Pilar Joseph PA-C [address] [place] [address] [place] [address] 07/26/2023 Office Visit Family Medicine Muriel Moreira MD [address] [place] [address] TH[place] Vas[place] [address] 07/28/2023 Laboratory Laboratory Processing [facility], [facility] [address] [place] [address] 08/11/2023 Laboratory Laboratory Processing Gm, [facility] [address] [place] [address] 08/25/2023 Laboratory Laboratory Processing [facility], [facility] [address] [place] [address] 08/29/2023 Office Visit Cardiology Chris Choudhury PA-C [address] [place] [address] 09/08/2023 Laboratory Laboratory Processing [facility], [facility] [address] [place] [address] 09/22/2023 Laboratory Laboratory Processing [facility], [facility] [address] [place] [address] Health Maintenance Due Date Last Done Comments [...] COPD 09/06/2023 09/06/2022 CKD PHOS USE SMARTSET 91380 09/07/2023 120 04/2022, 09/05/2022, 01/14/2022, Additional history exists Depression Screening, Annual for Pts 12 and Over 01/25/2024 01/24/2023 DIG LEVEL FOR MEDICATION MONITORING YEARLY 01/26/2024 01/25/2023, 04/17/2021, 03/09/2020, Additional history exists Albumin/Creatinine Ratio 01/27/2024 023, 01/14/2022, 08/14/2017, Additional history exists CKD HGB USE SMARTSET 18677 04/20/202404/20, 04/20/2023, 04/05/2023, Additional history exists Zoster [...] this encounter Medical Devices Implanted Type Area Balloon Tester Device Identifier Shelf Expiration Date Model / Serial / Lot Screw T2 Alpha Lock 5x47.5mm - [id number] Implanted:Qty: 1 on 09/06/2022 by Sean Silva [place] [facility] [place]: Leg Upper RICHELLE : TRAUMA 06/01/2032 [id number] / / [id number] documented as of this encounter Procedures Procedure Name Priority Date/Time Associated Diagnosis Comments PATHOLOGY SCANNED RESULT 04/25/2023 documented in this encounter Results * PATHOLOGY SCANNED RESULT (04/25/2023) 04/25/2023 Griffin Stokes DO PATHOLOGY documented in this encounter Advance Directives Documents on File Type Date Recorded Patient Repairer Shoe Sticks Expl anation POLST 10/17/2022 [place] DERS FOR LIFE-SUSTAINING TREATMENT POLST 09/10/2022 [place] DERS FOR LIFE-SUSTAINING TREATMENT Latest [...] t (per Health Care Power of Technical Training Coordinator document) Reji Tello Dotts Adult Child First Alterna te Health Care Agent (per Health Care Power of Technical Training Coordinator document) Bowen Tello Adult Child First Alternate Health Care Agent (per Health Care Power of Technical Training Coordinator document) Care Teams Head Setter Relationship Specialty Start Date End Date Muriel Moreira MD [address] [place] [address] [place] Vas[place] [address] PCP - General Family Medicine 06/26/18 documented as of this encounter
--- OUTSIDE RECORDS SUMMARY | 2023-08-22 03:59 | External Medical Summary | Summary of Care ---
Author Name Unknown Organization [facility] Address [address] [place] [address] Phone [phone] Care Team Providers Care Personnel Associate Name Role Phone Muriel Muller MD Primary Care Prov ider Reason for Visit * Reason Comments eRx-Medication Refill Encounter Details Date Type Department Care Team Description 04/21/2023 Refill Family [address] [id number] Muriel Muller MD [address] [place], [place] [address]THA fletcher [phone] GERD (gastroesophageal reflux disease) Allergies Active Allergy Reactions Severity Noted Date Comments James Inhibitors 09/10/2002 cough on prinivil Hydrocodone 09/05/2022 Family states AMS change when taken Prednisone 05/26/2011 Blisters in throat Sulfa Antibiotics 03/19/2001 dysurea documented as of this encounter (statuses as of 04/24/2023) Medications Medication Sig Dispensed Refills Start Date [...] per day 34 Tablet 11 05/13/2022 Active Fluticasone-Salmeter ol 250-50 MCG/ACT Inhalation Aerosol [...] 75 MG Oral Tablet (pLAVix)Indications: Atherosclerosis of [place] coronary artery of [place] heart without angina pectoris TAKE ONE TABLET [...] mouth daily. 90 Tablet 1 04/24/2023 Active Pantoprazole Sodium 40 MG Oral Tablet Delayed Release (Protonix)Indication s:GERD (gastroesophageal reflux disease) TAKE ONE TABLET BY MOUTH EVERY DAY 90 Tablet 1 09/12/2022 3 Discontinue d(Refill) documented as of this encounter (statuses as of 04/24/2023) Active Problems Problem Noted Date Chronic combined [...] CORONARY ATHEROSCLEROSIS OF UNSPECIFIED TYPE OF VESSEL, [place] OR GRAFT Last Assessment & Plan: Stable. 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 documented as of this encounter (statuses as of 04/24/2023) Resolved Problems Problem Noted Date Resolved Date [...] infection without hematuria 202101/24/2023 Overview: Xavier to [facility] 04/20-04/29 urosepsis multi drug [...] as of this encounter (statuses as of 04/24/2023) Immunizations Name Administration Dates Next Due COVID-19 [...] encounter Miscellaneous Notes * Telephone Encounter - Jeffry Ravi [facility] - 04/24/2023 10:24 AM EDTSigned Prescriptions: Disp Refills Pantoprazole Sodium 40 MG Oral Tablet Mariel*90 Tab*1 Sig: Take 1 Tablet by mouth daily.Authorizing Provider: MURIEL MULLER User: JEFFRY RAVI WRefused Prescriptions: Disp Refills Pantoprazole Sodium 40 MG Oral Tablet Mariel*90 Tab*0 Sig: TAKE ONE TABLET BY MOUTH EVERY DAYRefused By: CESAR SELF for Refusal: Managed by another physicianReason for Refusal Comment: managed by PCP as per history * Telephone Encounter - Cesar Self [facility] - 04/24/2023 10:18 AM EDTPending Prescriptions: Disp Refills Pantoprazole Sodium 40 MG Oral Tablet Mariel*90 Tab*1 Sig: Take 1 Tablet by mouth daily. Refused Prescriptions: Disp Refills Pantoprazole Sodium 40 MG Oral Tablet Mariel*90 Tab*0 Sig: TAKE ONE TABLET BY MOUTH EVERY DAY Refused By: CESAR SELF Reason for Refusal: Managed by another physician Reason for Refusal C omment: managed by PCP as per history * Telephone Encounter - Cesar Self [facility] - 04/24/2023 10:16 AM EDT Did you pend patient's preferred pharmacy and medication before forwarding?yes Pharmacy: [id number] [address] [facility] Pending Prescriptions: Disp Refills Pantoprazole Sodium 40 MG Oral Tablet Del*90 Tab*1 Sig: Take 1 Tablet by mouth daily. Last Visit: 01/24/2023 (in office), Visit date not found (telemedicine) Next Visit: 07/26/2023 If no future appointments scheduled, and last appointment is greater than a year ago, please schedule patient for a follow-up appointment Last date the medication was ordered: 09/12/22 Is this request for a controlled substance?No Urine Drug Screen:No results found. However, due to the size of the patient record, not all encounters were searched. Please check Results Review for a complete set of results. Patient Phone Numbers Labs: Lab Results Component Value Date/Time CREAT 1.7 (H) 04/20/2023 02:47 PM CREAT 1.27 07/27/2021 12:00 AM CREAT 1.2 05/29/2020 03:13 PM CREAT 0.8 01/08/1997 09:40 AM POTASSIUM 4.5 04/20/2023 02:47 PM POTASSIUM 3.8 07/27/2021 12:00 AM POTASSIUM 4.6 05/29/2020 03:13 PM POTASSIUM 4.7 01/08/1997 09:40 AM TSH 1.97 09/06/2022 03:24 AM TSH 1.04 11/06/2018 01:43 PM LDLCALC 31 03/09/2020 12:04 PM LDLCALC 159. (H) 01/08/1997 09:40 AM LDLDIRECT 46 12/24/2020 02:55 PM LDLDIRECT 44 03/09/2020 12:04 PM ALT 8 (L) 04/20/2023 02:47 PM ALT 13 11/06/2018 01:43 PM ALT 23 01/08/1997 09:40 AM HGBA1C 9.3 (H) 01/25/2023 08:06 AM HGBA1C 6.9 (H) 03/09/2020 12:04 PM * Telephone Encounter - Cesar Self RP - 04/24/2023 10:15 AM EDT Protonix now managed by PCP as per refill hx. Please approve if appropriate. Thank you, Cesar Self, PharmD Clinical Pharmacist [facility] ([facility]) [phone] 04/24/2023, 10:15 AM * Telephone Encounter - Interface, [facility] - 04/23/2023 8:58 AM EDT Pending Prescriptions: Disp Refills Pantoprazole Sodium 40 MG Oral Tablet Mariel*90 Tab*0 Sig: TAKE ONE TABLET BY MOUTH EVERY DAY * Telephone Encounter - Cindy Jones CPhT - 04/21/2023 10:50 AM EDTPending Prescriptions: Disp Refills Pantoprazole Sodium 40 MG Oral Tablet Mariel*90 Tab*0 Sig: TAKE ONE TABLET BY MOUTH EVERY DAY * Telephone Encounter - Cindy Jones CPhT - 04/21/2023 10:48 AM EDT Did you pend patient's preferred pharmacy and medication before forwarding?yes Pharmacy: [id number] [facility] Pending Prescriptions: Disp Refills Pantoprazole Sodium 40 MG Oral Tablet Del*90 Tab*0 Sig: TAKE ONE TABLET BY MOUTH EVERY DAY Last Visit: 06/23/2022 (in office), Visit date not found (telemedicine) Next Visit: Visit date not found If no future appointments scheduled, and last appointment is greater than a year ago, please schedule patient for a follow-up appointment Last date the medication was ordered: 09.12.22 Is this request for a controlled substance?No Urine Drug Screen:No results found. However, due to the size of the patient record, not all encounters were searched. Please check Results Review for a complete set of results. Patient Phone Numbers Labs: Lab Results Component Value Date/Time CREAT 1.7 (H) 04/20/2023 02:47 PM CREAT 1.27 07/27/2021 12:00 AM CREAT 1.2 05/29/2020 03:13 PM CREAT 0.8 01/08/1997 09:40 AM POTASSIUM 4.5 04/20/2023 02:47 PM POTASSIUM 3.8 07/27/2021 12:00 AM POTASSIUM 4.6 05/29/2020 03:13 PM POTASSIUM 4.7 01/08/1997 09:40 AM TSH 1.97 09/06/2022 03:24 AM TSH 1.04 11/06/2018 01:43 PM LDLCALC 31 03/09/2020 12:04 PM LDLCALC 159. (H) 01/08/1997 09:40 AM LDLDIRECT 46 12/24/2020 02:55 PM LDLDIRECT 44 03/09/2020 12:04 PM ALT 8 (L) 04/20/2023 02:47 PM ALT 13 11/06/2018 01:43 PM ALT 23 01/08/1997 09:40 AM HGBA1C 9.3 (H) 01/25/2023 08:06 AM HGBA1C 6.9 (H) 03/09/2020 12:04 PM documented in this encounter Plan of Treatment Upcoming Encounters Date Type Specialty Care Team Description 05/05/2023 Laboratory [facility] [address] [place] [address] 05/19/2023 Laboratory Laboratory Processing [facility] [address] [place] [address] 06/02/2023 Laboratory Laboratory Processing [facility] [address] [place] [address] 06/16/2023 Laboratory Laboratory Processing [facility] [address] [place] [address] 06/30/2023 Laboratory Laboratory Processing [facility] [address] [place] [address] 07/11/2023 Cardiac Studies Cardiology [address] [address] 07/14/2023 Laboratory Laboratory Processing [facility] [address] [place] [address] 07/17/2023 Office Visit Dermatology Pilar Joseph PA-C [address] [place] [address] THA Vasquez [address] 07/26/2023 Office Visit Family Medicine Muriel Muller MD [address] [place] [address] TH[place] Vasquez [address] 07/28/2023 Laboratory Laboratory Processing [facility] [address] [place] [address] 08/11/2023 Laboratory Laboratory Processing [facility], [facility] [address] [place] [address] 08/25/2023 Laboratory Laboratory Processing [facility], [facility] [address] [place] [address] 08/29/2023 Office Visit Cardiology Chris Choudhury PA-C [address] [place] [address] 09/08/[address] [facility] [address] [place] [address] 09/22/2023 Laboratory Laboratory Processing [facility], [facility] [address] [place], [place] [address] Health Maintenance Due Date Last Done Comments [...] COPD 09/06/2023 09/06/2022 CKD PHOS USE SMARTSET 54156 09/07/202304/2022, 09/05/2022, 01/14/2022, Additional history exists Depression Screening, Annual for Pts 12 and Over 01/25/2024 01/24/2023 DIG LEVEL FOR MEDICATION MONITORING YEARLY 01/26/2024 01/25/2023, 04/17/2021, 03/09/2020, Additional history exists Albumin/Creatinine Ratio 01/27/2024 023, 01/14/2022, 08/14/2017, Additional history exists CKD HGB USE SMARTSET 03749 04/20/202404/20, 04/20/2023, 04/05/2023, Additional history exists Zoster [...] this encounter Medical Devices Implanted Type Area Swimming Professor Device Identifier Shelf Expiration Date Model / Serial / Lot Screw T2 Alpha Lock 5x47.5mm - [id number] Implanted:Qty: 1 on 09/06/2022 by Sean Silva MD at OR [facility] [place] Left: Leg Upper RICHELLE : TRAUMA 06/01/2032 [id number] / / [id number] documented as of this encounter Visit Diagnoses Diagnosis GERD (gastroesophageal reflux disease) Esophageal reflux documented in this encounter Advance Directives Documents on File Type Date Recorded Patient Pierce And Shave Press Operator Expl anation POLST 10/17/2022 [place] DERS [...] Agen t (per Health Care Power of Melter Operator document) Reji Tello Dotts Adult Child First Alterna te Health Care Agent (per Health Care Power of Melter Operator document) Bowen Tello Adult Child First Alternate Health Care Agent (per Health Care Power of Melter Operator document) Care Teams Personnel Associate Relationship Specialty Start Date End Date Muriel Muller MD [address] [place] [address] THA Vasquez [address] PCP - General Family Medicine 06/26/18 documented as of this encounter
--- OUTSIDE RECORDS SUMMARY | 2023-08-22 03:59 | External Medical Summary | Summary of Care ---
Author Name Unknown Organization [facility] Address [address] [place] [address] Phone [phone] Care Team Providers Care Machining Manager Name Role Phone Muriel Moreira MD Primary Care Prov ider Reason for Visit * Reason Onset Date Comments Appointment 04/27/2023 Encounter Details Date Type Department Care Team Description 04/27/2023 Telephone [facility] [place] [address] [facility] THA HERNANDEZ [address] Krystal Boyer, [facility] [employer] Processing Factory Worker Appointment Allergies Active Allergy Reactions Severity Noted Date [...] 75 MG Oral Tablet (pLAVix)Indications:At herosclerosis of [place] coronary artery of [place] heart without angina pectoris TAKE ONE TABLET [...] OF UNSPECIFIED TYPE OF VESSEL, [place] OR GRAFT Last Assessment & Plan: Stable. [...] encounter Miscellaneous Notes * Telephone Encounter - Krystal Boyer [facility] [employer] Processing [employer] Worker - 04/27/2023 3:58 PM EDT Per Ann Marie Rosado add patient to her schedule for his BENJAMIN appointment On 04/27/2023 Krystal Boyer, CASTRO Electronically signed by Krystal Boyer [facility] [employer] Processing [employer] Worker at 04/27/2023 3:59 PM EDT documented in this encounter Plan of Treatment Upcoming Encounters Date Type Specialty Care Team Description 04/27/2023 Scheduled Telephone [facility] Supercharge Repair Supervisor, [address] [address] 04/28/2023 Office Visit Family Medicine Sherron Lyles MD [address] [place] [address] [place] [address] 05/05/2023 Laboratory Laboratory Processing [facility], [facility] Draw [address] [place] [address] 05/19/2023 Laboratory Laboratory Processing [facility], [facility] [address] [place] [address] 06/02/2023 Laboratory Laboratory Processing [facility], [facility] [address] [place] [address] 06/16/2023 Laboratory Laboratory Processing [facility], [facility] Draw [address] [place] [address] 06/30/2023 Laboratory Laboratory Processing [facility] Draw [address] [place] [address] 07/11/2023 Cardiac Studies Cardiology [facility] [address] [place] [address] 07/14/2023 Laboratory Laboratory Processing [facility] Draw [address] [place] [address] 07/17/2023 Office Visit Dermatology Pilar Joseph PA-C [address] [place] [address] TH[place] Vasquez [address] 07/26/2023 Office Visit Family Medicine Muriel Moreira MD [address] [place] [address] [place] Vas[place] [address] 07/28/2023 Laboratory Laboratory Processing [facility] [address] [place] [address] 08/11/2023 Laboratory Laboratory Processing [facility] [address] [place] [address] 08/25/2023 Laboratory Laboratory Processing [facility], [facility] Draw [address] [place] [address] 08/29/2023 Office Visit Cardiology Chris Choudhury PA-C [address] [place] [address] 09/08/2023 Laboratory Laboratory Processing [facility] [address] [place] [address] 09/22/2023 Laboratory Laboratory Processing [facility], [facility] Home Draw [address] [place] [address] Scheduled Procedures Name Priority Associated Diagnoses Date/Ti [...] COPD 09/06/2023 09/06/2022 CKD PHOS USE SMARTSET 98021 09/07/2023 12/0 04/2022, 09/05/2022, 01/14/2022, Additional history exists Depression Screening, Annual for Pts 12 and Over 01/25/2024 01/24/2023 DIG LEVEL FOR MEDICATION MONITORING YEARLY 01/26/2024 01/25/2023, 04/17/2021, 03/09/2020, Additional history exists Albumin/Creatinine Ratio 01/27/2024 023, 01/14/2022, 08/14/2017, Additional history exists CKD HGB USE SMARTSET 50298 04/20/202404/20, 04/20/2023, 04/05/2023, Additional history exists COLONOSCOPY-EVERY [...] this encounter Medical Devices Implanted Type Area Feed Research Aide Device Identifier Shelf Expiration Date Model / Serial / Lot Screw T2 Alpha Lock 5x47.5mm - [id number] Implanted:Qty: 1 on 09/06/2022 by Sean Silva MD at [facility] Left: Leg Upper RICHELLE : TRAUMA 06/01/2032 [id number] / / [id number] documented as of this encounter Advance Directives Documents on File Type Date Recorded 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 POLST 10/17/2022 [place] [...] Agen t (per Health Care Power of Drug Regulatory Affairs Specialist document) Reji Leobardo Neil Adult Child First Alterna te Health Care Agent (per Health Care Power of Drug Regulatory Affairs Specialist document) Bowen Tello Adult Child First Alternate Health Care Agent (per Health Care Power of Drug Regulatory Affairs Specialist document) Care Teams Machining Manager Relationship Specialty Start Date End Date Muriel Moreira MD [address] [place] [address] THA Vasquez [phone] PCP - General Family Medicine 06/26/18 documented as of this encounter
--- OUTSIDE RECORDS SUMMARY | 2023-08-22 03:59 | External Medical Summary | Summary of Care ---
Author Name Unknown Organization [facility] Address [address] [facility] [place] [address] Phone [phone] Care Team Providers Care Tape Keller Operator Name Role Phone Muriel Moreira MD Primary Care Prov ider Reason for Visit * Reason Onset Date Comments [facility]: Maintenance 04/24/2023 Encounter Details Date Type Department Care Team Description 04/24/2023 Telephone [facility], [facility] [address] [place] [address] Kami Rosado RN [address] [place] [address] [facility]: Maintenance Allergies Active Allergy [...] Oral Tablet (pLAVix)Indications:At herosclerosis of [place] coronary artery of [...] CORONARY ATHEROSCLEROSIS OF UNSPECIFIED TYPE OF VESSEL, FALSE PASS OR GRAFT Last Assessment & Plan: Stable. [...] Overview: Xavier to [facility] 04/20-04/29 urosepsis multi drug resistant E. Coli [...] Telephone Encounter - Kami Rosado RN - 04/24/2023 9:49 AM EDT Received call from pt's , Remedios to cancel today's home visit. Pt admitted to [facility] with anemia. Hgb 5.1 noted on routine labs. States they are scoping him. Added to shared hospital list. Will follow for discharge. documented in this encounter Plan of Treatment Upcoming Encounters Date Type Specialty Care Team Description 05/05/2023 Laboratory [facility] [address] [place] [address] 05/19/2023 Laboratory Laboratory Processing [facility] [address] [place] [address] 06/02/2023 Laboratory Laboratory Processing [facility] [address] [place] [address] 06/16/2023 Laboratory Laboratory Processing [facility] [address] [place] [address] 06/30/2023 Laboratory Laboratory Processing [facility] [address] [place] [address] 07/11/2023 [facility] [address] [place] [address] 07/14/2023 Laboratory Laboratory Processing [facility] [address] [place] [address] 07/17/2023 Office Visit Dermatology Pilar Joseph PA-C [address] [place] [address] [place] [address] 07/26/2023 Office Visit Family Medicine Muriel Moreira MD [address] [place] [address] [place] [address] 07/28/2023 Laboratory Laboratory Processing [facility] [address] [place] [address] 08/11/2023 Laboratory Laboratory Processing [facility] [address] [place] [address] 08/25/2023 Laboratory Laboratory Processing [facility] [address] [place] [address] 08/29/2023 Office Visit Cardiology Chris Choudhury PA-C [address] [place] [address] 09/08/2023 Laboratory Laboratory Processing [facility] [address] [place] [address] 09/22/2023 Laboratory Laboratory Processing [facility] [address] [place] [address] Health Maintenance Due Date Last Done Comments [...] COPD 09/06/2023 09/06/2022 CKD PHOS USE SMARTSET 79306 09/07/2023 120 04/2022, 09/05/2022, 01/14/2022, Additional history exists Depression Screening, Annual for Pts 12 and Over 01/25/2024 01/24/2023 DIG LEVEL FOR MEDICATION MONITORING YEARLY 01/26/2024 01/25/2023, 04/17/2021, 03/09/2020, Additional history exists Albumin/Creatinine Ratio 01/27/2024 023, 01/14/2022, 08/14/2017, Additional history exists CKD HGB USE SMARTSET 15115 04/20/202404/20, 04/20/2023, 04/05/2023, Additional history exists Zoster [...] this encounter Medical Devices Implanted Type Area Tumor Registrar Device Identifier Shelf Expiration Date Model / Serial / Lot Screw T2 Alpha Lock 5x47.5mm - [id number] Implanted:Qty: 1 on 09/06/2022 by Sean Silva MD at [facility] Left: Leg Upper RICHELLE : TRAUMA 06/01/2032 [id number] / / [id number] documented as of this encounter Advance Directives Documents on File Type Date Recorded Patient Neurology Epilepsy Physician Expl anation POLST 10/17/2022 [place] OR DERS [...] t (per Health Care Power of Party Host document) Reji Tello Dotts Adult Child First Alterna te Health Care Agent (per Health Care Power of Party Host document) Bowen Tello Adult Child First Alternate Health Care Agent (per Health Care Power of Party Host document) Care Teams Tape Keller Operator Relationship Specialty Start Date End Date Muriel Moreira MD [address] [place] [address] [place] [address] PCP - General Family Medicine 06/26/18 documented as of this encounter
--- OUTSIDE RECORDS SUMMARY | 2023-08-22 03:59 | External Medical Summary | Summary of Care ---
Author Name Unknown Organization [facility] Address [address] [facility] [address] Phone [phone] Care Team Providers Care Substation Electrician Name Role Phone Muriel Moreira MD Primary Care Prov ider Encounter Details Date Type Department Care Team Description 04/24/2023 Orders Only Gastroenterology, [facility] [address] [place] [address] Griffin Stokes, [address] [place] [address] Allergies Active Allergy Reactions Severity Noted Date Comments James Inhibitors 09/10/2002 cough on prinivil Hydrocodone 09/05/2022 Family states AMS change when taken Prednisone 05/26/2011 Blisters in throat Sulfa Antibiotics 03/19/2001 dysurea documented as of this encounter (statuses as of 04/25/2023) Medications Medication Sig Dispensed Refills Start Date [...] 75 MG Oral Tablet (pLAVix)Indications:At herosclerosis of [place] coronary artery of [place] heart without angina pectoris TAKE ONE TABLET [...] as of this encounter (statuses as of 04/25/2023) Active Problems Problem Noted Date Chronic combined [...] CORONARY ATHEROSCLEROSIS OF UNSPECIFIED TYPE OF VESSEL, ANIAK OR GRAFT Last Assessment & Plan: Stable. 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 documented as of this encounter (statuses as of 04/25/2023) Resolved Problems Problem Noted Date Resolved Date [...] as of this encounter (statuses as of 04/25/2023) Immunizations Name Administration Dates Next Due COVID-19 [...] [facility] [address] [place] [address] 05/19/2023 Laboratory Laboratory Processing [facility] [address] [place] [address] 06/02/2023 Laboratory Laboratory Processing [facility] [address] [place] [address] 06/16/2023 Laboratory Laboratory Processing [facility] [address] [place] [address] 06/30/2023 Laboratory Laboratory Processing [facility] [address] [place] [address] 07/11/2023 Cardiac Studies Cardiology [facility] [address] [address] 07/14/2023 Laboratory Laboratory Processing [facility] [address] [place] [address] 07/17/2023 Office Visit Dermatology Pilar Joseph PA-C [address] [place] [address] [place] [address] 07/26/2023 Office Visit Family Medicine Muriel Moreira MD [address] [place] [address] [place] [address] 07/28/2023 Laboratory Laboratory Processing [facility] [address] [place] [address] 08/11/2023 Laboratory Laboratory Processing [facility] [address] [place] [address] 08/25/2023 Laboratory Laboratory Processing [facility] [address] [place] [address] 08/29/2023 Office Visit Cardiology Chris Choudhury PA-C [address] [place] [address] 09/08/2023 Laboratory Laboratory Processing [facility] [address] [place] [address] 09/22/2023 Laboratory Laboratory Processing [facility] [address], [place] [address] Health Maintenance Due Date Last Done Comments [...] COPD 09/06/2023 09/06/2022 CKD PHOS USE SMARTSET 57131 09/07/2023 1204/2022, 09/05/2022, 01/14/2022, Additional history exists Depression Screening, Annual for Pts 12 and Over 01/25/2024 01/24/2023 DIG LEVEL FOR MEDICATION MONITORING YEARLY 01/26/2024 01/25/2023, 04/17/2021, 03/09/2020, Additional history exists Albumin/Creatinine Ratio 01/27/2024 023, 01/14/2022, 08/14/2017, Additional history exists CKD HGB USE SMARTSET 82088 04/20/202404/20, 04/20/2023, 04/05/2023, Additional history exists Zoster [...] this encounter Medical Devices Implanted Type Area E Business Manager Device Identifier Shelf Expiration Date Model / Serial / Lot Screw T2 Alpha Lock 5x47.5mm - [id number] Implanted:Qty: 1 on 09/06/2022 by Sean Silva MD at [facility] Left: Leg Upper RICHELLE : TRAUMA 06/01/2032 [id number] / / [id number] documented as of this encounter Procedures Procedure Name Priority Date/Time Associated Diagnosis Comments UPPER GI ENDOSCOPY 04/24/2023 documented in this encounter Results * UPPER GI ENDOSCOPY (04/24/2023) 04/24/2023 Griffin Stokes DO GASTRO UPPER documented in this encounter Advance Directives Documents on File Type Date Recorded Patient Supervisor Compressed Yeast Expl anation POLST 10/17/2022 [place] OR DERS [...] Agen t (per Health Care Power of Windows 7 Deployment Lead document) Reji Tello Dotts Adult Child First Alterna te Health Care Agent (per Health Care Power of Windows 7 Deployment Lead document) Bowen Tello Adult Child First Alternate Health Care Agent (per Health Care Power of Windows 7 Deployment Lead document) Care Teams Substation Electrician Relationship Specialty Start Date End Date Muriel Moreira MD [address] [place] [address] [place] [address] PCP - General Family Medicine 06/26/18 documented as of this encounter
--- OUTSIDE RECORDS SUMMARY | 2023-08-22 03:59 | External Medical Summary | Summary of Care ---
Author Name Unknown Organization [facility] Address [address] [facility] [address] Phone [phone] Care Team Providers Care All Source Intelligence Technician Name Role Phone Muriel Moreira MD Primary Care Prov ider Reason for Visit * Reason Onset Date Comments [facility]: Maintenance 04/27/2023 Encounter Details Date Type Department Care Team Description 04/27/2023 Scheduled Telephone [facility], [facility] [address] [place] [address] Coordinator, [facility] [address] [place] [address] Allergies Active Allergy Reactions Severity Noted Date [...] 75 MG Oral Tablet (pLAVix)Indications: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 [...] infection without hematuria 202101/24/2023 Overview: Xavier to [facility] 04/20-04/29 urosepsis multi drug resistant E. Coli [...] glenn ek & Lt. leg 98; Rt. mandaeism 07/0207/18/2002 07/15/2015 Dyslipidemia, goal to [...] Telephone Encounter - Yesica Kohler RN - 04/27/2023 3:27 PM EDT Call to [facility] [phone] spoke to hospital. Patient is not currently admitted to facility. Call to patient at home number and spoke to Remedios. Confirmed patient was discharged to home last pm. States patient is doing "very well". States patient is not scheduled for home health services... Updated , msg will be sent to scheduling to schedule patient for BENJAMIN visits. Sent tiger text to [facility] on Gliknik text role, Krystal Boyer who states she is already working on same. Destiney Kohler RN [facility] Filler Sifter Helper [facility] at Home documented in this encounter Plan of Treatment Upcoming Encounters Date Type Specialty Care Team Description 04/28/2023 Office Visit Family Medicine Sherron Lyles MD [address] [place] [address] [place] [address] 05/05/2023 Laboratory Laboratory Processing [facility] [address] [place] [address] 05/19/2023 Laboratory Laboratory Processing [facility] [address] [place] [address] 06/02/2023 Laboratory Laboratory Processing [facility] [address] [place] [address] 06/16/2023 Laboratory Laboratory Processing [facility] [address] [place] [address] 06/30/2023 Laboratory Laboratory Processing [facility] [address] [place] [address] 07/11/2023 Cardiac Studies Cardiology [address] [address] 07/14/2023 Laboratory Laboratory Processing [facility] [address] [place] [address] 07/17/2023 Office Visit Dermatology Pilar Joseph PA-C [address] [place] [address] [place] [address] 07/26/2023 Office Visit Family Medicine Muriel Moreira MD [address] [place] [address] [place] [address] 07/28/2023 Laboratory Laboratory Processing [facility] [address] [place] [address] 08/11/2023 Laboratory Laboratory Processing [facility] [address] [place] [address] 08/25/2023 Laboratory Laboratory Processing [facility] [address] [place] [address] 08/29/2023 Office Visit Cardiology Chris Choudhury PA-C [address] [place] [address] 09/08/2023 Laboratory Laboratory Processing [facility] Home Draw [address] [place] [address] 09/22/2023 Laboratory Laboratory Processing [facility] [address] [place] [address] Scheduled Procedures Name Priority Associated Diagnoses Date/Ti [...] COPD 09/06/2023 09/06/2022 CKD PHOS USE SMARTSET 00708 09/07/2023 12/0 04/2022, 09/05/2022, 01/14/2022, Additional history exists Depression Screening, Annual for Pts 12 and Over 01/25/2024 01/24/2023 DIG LEVEL FOR MEDICATION MONITORING YEARLY 01/26/2024 01/25/2023, 04/17/2021, 03/09/2020, Additional history exists Albumin/Creatinine Ratio 01/27/202401/26/2 023, 01/14/2022, 08/14/2017, Additional history exists CKD HGB USE SMARTSET 25086 04/20/202404/20, 04/20/2023, 04/05/2023, Additional history exists COLONOSCOPY-EVERY [...] this encounter Medical Devices Implanted Type Area Branch Service Representative Device Identifier Shelf Expiration Date Model / Serial / Lot Screw T2 Alpha Lock 5x47.5mm - [id number] Implanted:Qty: 1 on 09/06/2022 by Sean Silva MD at [facility] Left: Leg Upper RICHELLE : TRAUMA 06/01/2032 [id number] / / [id number] documented as of this encounter Advance Directives Documents on File Type Date Recorded 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
--- OUTSIDE RECORDS SUMMARY | 2023-08-22 04:00 | External Medical Summary ---
Author Name Unknown Address Unknown Organization [facility]ORATORY [facility] [address] [place] [address] Laboratory Report Ordering Provider Test Date Status DEB BULL 04/20/2023 14:47:12 Final Observation Date Value Abnormality Reference (Units ) Status BUN 04/20/2023 14:47:12 36 Above high normal 6-20 (mg/dL) Final Creatinine 04/20/2023 14:47:12 1.7 Above high normal 0.6-1.2 (mg/dL) Final Glomerular filtration rate/1.73 sq M.predicted [Volume Rate/Area] in Serum, Plasma or Blood by Creatinine-based formula (CKD-EPI) 04/20/2023 14:47:12 38 Below low normal >=60 (mL/min) Final eGFR is calculated based on the CKD-EPI 2020 equation SODIUM 04/20/2023 14:47:12 143 135-146 (m mol/L) Final Potassium 04/20/2023 14:47:12 4.5 3.5-5.1 (m mol/L) Final Cl 04/20/2023 14:47:12 105 98-107 (mm ol/L) Final CO2 04/20/2023 14:47:12 21 Below low normal 22- 32 (mmol/L) Final Anion gap 04/20/2023 14:47:12 17 Above high normal 7- 15 (mmol/L) Final Glucose 04/20/2023 14:47:12 204 Above high normal 70 -120 (mg/dL) Final Albumin 04/20/2023 14:47:12 3.0 Below low normal 3.8 -5.0 (g/dL) Final AST (Aspartate aminotransferase) 04/20/2023 14:47:12 12 10-50 (U/L) Fin al Alk Phos 04/20/2023 14:47:12 34 Below low normal 35- 130 (U/L) Final Bilirubin, Total 04/20/2023 14:47:12 0.3 <=1 .2 (mg/dL) Final Calcium 04/20/2023 14:47:12 8.7 8.4-10.2 ( mg/dL) Final Protein 04/20/2023 14:47:12 7.3 6.0-8.3 (g /dL) Final ALT (Alanine aminotransferase) 04/20/2023 14:47:12 8 Below low normal 10-50 (U/L) Final Performing Location LABORATORY [facility] [address] [facility] [address]
--- OUTSIDE RECORDS SUMMARY | 2023-08-22 04:00 | External Medical Summary | Summary of Care ---
Author Name Unknown Organization [facility] Address [address] [place] [address] Phone [phone] Care Team Providers Care Clinical Professor Name Role Phone Muriel Moreira MD Primary Care Prov ider Reason for Visit * Reason Onset Date Comments Test Results 04/20/2023 Encounter Details Date Type Department Care Team Description 04/20/2023 Telephone Hematology/Oncology Treatment, [place] [address] [place] [address] Pietro Sykes MD [address] [place] [address] Test Results Allergies Active Allergy Reactions Severity [...] as needed 100 Strip 3 05/20/2022 Active ShopnationTouch UltraSoft LancetsIndications:Typ e 2 diabetes mellitus with [...] 75 MG Oral Tablet (pLAVix)Indications: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 [...] infection without hematuria 202101/24/2023 Overview: Xavier to [facility] 04/20-04/29 urosepsis multi drug resistant [...] glenn ek & Lt. leg 4/98; Rt. jehovah's witness 07/0207/18/2002 07/15/2015 Dyslipidemia, goal [...] Care Team Description 04/21/2023 Laboratory Laboratory Processing [facility], [facility] Draw [address] [place] [address] 04/24/2023 [facility] Kami Rosado RN [address] [place] [address] 05/05/2023 Laboratory Laboratory Processing [facility] [address] [place] [address] 05/19/2023 Laboratory Laboratory Processing [facility] [address] [place] [address] 06/02/2023 Laboratory Laboratory Processing [facility] [address] [place] [address] 06/16/2023 Laboratory Laboratory Processing [facility] [address] [place] [address] 06/30/2023 Laboratory Laboratory Processing [facility] [address] [place] [address] 07/11/2023 Cardiac Studies Cardiology [facility] [address] [place] [address] 07/14/2023 Laboratory Laboratory Processing [facility] Draw [address] [place] [address] 07/17/2023 Office Visit Dermatology Pilar Joseph PA-C [address] [place] [address] [place] [address] 07/26/2023 Office Visit Family Medicine Muriel Moreira MD [address] [place] [address] [place] [address] 07/28/2023 Laboratory Laboratory Processing [facility] [address] [place] [address] 08/11/2023 Laboratory Laboratory Processing [facility] [address] [place] [address] 08/25/2023 Laboratory Laboratory Processing [facility] [address] [place] [address] 08/29/2023 Office Visit Cardiology Chris Choudhury PA-C [address] [place] [address] 09/08/2023 Laboratory Laboratory Processing [facility] [address] [place] [address] 09/22/2023 Laboratory Laboratory Processing [facility], [facility] Home Draw [address] [place] [address] Health Maintenance Due Date Last Done Comments [...] COPD 09/06/2023 09/06/2022 CKD PHOS USE SMARTSET 97105 09/07/2023 12/0 04/2022, 09/05/2022, 01/14/2022, Additional history exists Depression Screening, Annual for Pts 12 and Over 01/25/2024 01/24/2023 DIG LEVEL FOR MEDICATION MONITORING YEARLY 01/26/2024 01/25/2023, 04/17/2021, 03/09/2020, Additional history exists Albumin/Creatinine Ratio 01/27/2024 023, 01/14/2022, 08/14/2017, Additional history exists CKD HGB USE SMARTSET 40966 04/20/202404/20, 04/20/2023, 04/05/2023, Additional history exists Zoster [...] this encounter Medical Devices Implanted Type Area Costumer Device Identifier Shelf Expiration Date Model / Serial / Lot Screw T2 Alpha Lock 5x47.5mm - [id number] Implanted:Qty: 1 on 09/06/2022 by Sean Silva MD at [facility] Left: Leg Upper RICHELLE : TRAUMA 06/01/2032 [id number] / / [id number] documented as of this encounter Advance Directives Documents on File Type Date Recorded 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
--- OUTSIDE RECORDS SUMMARY | 2023-08-22 04:00 | External Medical Summary ---
Author Name Unknown Address Unknown Organization [facility] [address] [place] [address] Laboratory Report Ordering Provider Test Date Status DEB BULL 04/20/2023 14:47:12 Final Observation Date Value Abnormality Reference (Units ) Status WBC, Total 04/20/2023 14:47:12 5.68 4.00-10.80 (K/uL) Final RBC 04/20/2023 14:47:12 1.55 4.50-5.25 (M/uL) Final Hemoglobin 04/20/2023 14:47:12 5.1 Below lower panic limits 14.0-16.8 (g/dL) Final HCT 04/20/2023 14:47:12 17.5 Below low normal 40.0-48.4 (%) Final MCV 04/20/2023 14:47:12 112.9 82.0-99.5 (fL) Final MCH 04/20/2023 14:47:12 32.9 27.0-34.0 (pg) Final MCHC 04/20/2023 14:47:12 29.1 32.0-36.0 (g/dL) Final RDW 04/20/2023 14:47:12 18.0 11.5-15.5 (%) Final Platelets 04/20/2023 14:47:12 259 140-400 (K/uL) Final MPV 04/20/2023 14:47:12 9.7 6.6-11.1 (fL) Final Performing Location LABORATORY [facility] [address] [place] [address]
--- OUTSIDE RECORDS SUMMARY | 2023-08-22 04:00 | External Medical Summary | Summary of Care ---
Author Name Unknown Organization [facility] Address [address] [place] [address] Phone [phone] Care Team Providers Care Photo Mask Pattern Generator Name Role Phone Muriel Moreira MD Primary Care Prov ider Reason for Visit * Reason Onset Date Comments Test Results 04/20/2023 Encounter Details Date Type Department Care Team Description 04/20/2023 Telephone Hematology/Oncology Treatment, [place] [address] [place] [address] Pietro Sykes MD [address] [place] [address] Test Results Allergies Active Allergy Reactions Severity [...] as needed 100 Strip 3 05/20/2022 Active SimpleSiteTouch UltraSoft LancetsIndications:Typ e 2 diabetes mellitus with [...] 75 MG Oral Tablet (pLAVix)Indications: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 [...] glenn ek & Lt. leg 4/98; Rt. oriental orthodox 07/0207/18/2002 07/15/2015 Dyslipidemia, goal [...] Encounter - Tiny Stephenson RN - 04/20/2023 3:52 PM EDT Wen [...] Care Team Description 04/21/2023 Laboratory Laboratory Processing [facility], [facility] Mobile Home Draw [address] [place] [address] 04/24/2023 Home Visit [facility] Kami Rosado RN [address] [place] [address] 05/05/2023 Laboratory Laboratory [facility] [address] [place] [address] 05/19/2023 Laboratory Laboratory Processing [facility] [address] [place] [address] 06/02/2023 Laboratory Laboratory Processing [facility] [address] [place] [address] 06/16/2023 Laboratory Laboratory Processing [facility] [address] [place] [address] 06/30/2023 Laboratory Laboratory Processing [facility] [address] [place] [address] 07/11/2023 Cardiac Studies Cardiology [facility] [address] [place] [address] 07/14/2023 Laboratory Laboratory Processing [facility] [address] [place] [address] 07/17/2023 Office Visit Dermatology Pilar Joseph PA-C [address] [place] [address] [place] [address] 07/26/2023 Office Visit Family Medicine Muriel Moreira MD [address] [place] [address] [place] [address] 07/28/2023 Laboratory Laboratory Processing [facility] [address] [place] [address] 08/11/2023 Laboratory Laboratory Processing [facility], [facility] Mobile Home Draw [address] [place] [address] 08/25/2023 Laboratory Laboratory Processing [facility], [facility] Mobile Home Draw [address] [place] [address] 08/29/2023 Office Visit Cardiology Chris Choudhury PA-C [address] [place] [address] 09/08/2023 Laboratory Laboratory Processing [facility], [facility] Mobile Home Draw [address] [place] [address] 09/22/2023 Laboratory Laboratory Processing [facility], [facility] Home Draw [address] [place] [address] Health Maintenance Due Date Last Done Comments [...] COPD 09/06/2023 09/06/2022 CKD PHOS USE SMARTSET 25120 09/07/202304/2022, 09/05/2022, 01/14/2022, Additional history exists Depression Screening, Annual for Pts 12 and Over 01/25/2024 01/24/2023 DIG LEVEL FOR MEDICATION MONITORING YEARLY 01/26/2024 01/25/2023, 04/17/2021, 03/09/2020, Additional history exists Albumin/Creatinine Ratio 01/27/2024 023, 01/14/2022, 08/14/2017, Additional history exists CKD HGB USE SMARTSET 79267 04/20/202404/20, 04/20/2023, 04/05/2023, Additional history exists Zoster [...] this encounter Medical Devices Implanted Type Area Flame Hardening Machine Operator Device Identifier Shelf Expiration Date Model / Serial / Lot Screw T2 Alpha Lock 5x47.5mm - [id number] Implanted:Qty: 1 on 09/06/2022 by Sean Silva MD at [facility] Left: Leg Upper RICHELLE : TRAUMA 06/01/2032 [id number] / / [id number] documented as of this encounter Advance Directives Documents on File Type Date Recorded 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
--- OUTSIDE RECORDS SUMMARY | 2023-08-22 04:00 | External Medical Summary ---
Author Name Unknown Address Unknown Organization [facility] [address] [place] [address] Laboratory Report Ordering Provider Test Date Status DEB BULL 04/20/2023 14:47:12 Final Observation Date Value Abnormality Reference (Units ) Status SYNC LEUKOCYTES IN BLOOD BY AUTOMATED COUNT 04/20/2023 14:47:12 5.68 4.00-10.80 (K/uL) Final Segs 04/20/2023 14:47:12 59.7 40.0-75.0 (%) Final Lymphs % 04/20/2023 14:47:12 21.0 18.0-42.0 (%) Final Monos 04/20/2023 14:47:12 14.4 Above high normal 1.0-11.0 (%) Final Eosinophils 04/20/2023 14:47:12 4.4 0.0-6.0 (%) Final Basos 04/20/2023 14:47:12 0.5 0.0-2.0 (%) Final Absolute Segs 04/20/2023 14:47:12 3.39 1.80-7.70 (K/uL) Final Lymphs, absolute 04/20/2023 14:47:12 1.19 1.00-4.80 (K/ul) Final Monos, Abs 04/20/2023 14:47:12 0.82 0.00-1.10 (K/uL) Final Eos, Abs 04/20/2023 14:47:12 0.25 0.00-0.70 (K/uL) Final Basos, Abs 04/20/2023 14:47:12 0.03 0.00-0.20 (K/uL) Final Performing Location [facility] [address] [place] [address]
--- OUTSIDE RECORDS SUMMARY | 2023-08-22 04:00 | External Medical Summary | Summary of Care ---
Author Name Unknown Organization [facility] Address [address] [place] [address] Phone [phone] Care Team Providers Care Application Integration Specialist Name Role Phone Muriel Moreira MD Primary Care Prov ider Reason for Visit * Reason Onset Date Comments Test Results 04/20/2023 Encounter Details Date Type Department Care Team Description 04/20/2023 Telephone Hematology/Oncology Treatment, [place] [address] [place] [address] Pietro Sykes MD [address] [place] [address] Test Results Allergies Active Allergy Reactions Severity [...] as needed 100 Strip 3 05/20/2022 Active Apollo EndosurgeryTouch UltraSoft LancetsIndications:Typ e 2 diabetes mellitus with [...] 75 MG Oral Tablet (pLAVix)Indications: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 [...] glenn ek & Lt. leg 4/98; Rt. pentecostalism 07/0207/18/2002 07/15/2015 Dyslipidemia, goal to be determined [...] Care Team Description 04/21/2023 Laboratory Laboratory Processing [facility], [facility] Draw [address] [place] [address] 04/24/2023 [facility] Kami Rosado RN [address] [place] [address] 05/05/2023 Laboratory Laboratory Processing [facility] Draw [address] [place] [address] 05/19/2023 Laboratory Laboratory Processing [facility] Draw [address] [place] [address] 06/02/2023 Laboratory Laboratory Processing [facility] [address] [place] [address] 06/16/2023 Laboratory Laboratory Processing [facility] [address] [place] [address] 06/30/2023 Laboratory Laboratory Processing [facility] Draw [address] [place] [address] 07/11/2023 Cardiac Studies Cardiology [facility] [address] [place] [address] 07/14/2023 Laboratory Laboratory Processing [facility] Draw [address] [place] [address] 07/17/2023 Office Visit Dermatology Pilar Joseph PA-C [address] [place] [address] [place] [address] 07/26/2023 Office Visit Family Medicine Muriel Moreira MD [address] [place] [address] [place] [address] 07/28/2023 Laboratory Laboratory Processing [facility] [address] [place] [address] 08/11/2023 Laboratory Laboratory Processing [facility] [address] [place] [address] 08/25/2023 Laboratory Laboratory Processing [facility] Draw [address] [place] [address] 08/29/2023 Office Visit Cardiology Chris Choudhury PA-C [address] [place] [address] 09/08/2023 Laboratory Laboratory Processing [facility] [address] [place] [address] 09/22/2023 Laboratory Laboratory Processing [facility], [facility] Mobile Home Draw [address] [place] [address] Health Maintenance Due Date Last Done Comments [...] COPD 09/06/2023 09/06/2022 CKD PHOS USE SMARTSET 27427 09/07/2023 12/0 04/2022, 09/05/2022, 01/14/2022, Additional history exists Depression Screening, Annual for Pts 12 and Over 01/25/2024 01/24/2023 DIG LEVEL FOR MEDICATION MONITORING YEARLY 01/26/2024 01/25/2023, 04/17/2021, 03/09/2020, Additional history exists Albumin/Creatinine Ratio 01/27/2024 023, 01/14/2022, 08/14/2017, Additional history exists CKD HGB USE SMARTSET 49983 04/20/202404/20, 04/20/2023, 04/05/2023, Additional history exists Zoster [...] this encounter Medical Devices Implanted Type Area Armhole Presser Device Identifier Shelf Expiration Date Model / Serial / Lot Screw T2 Alpha Lock 5x47.5mm - [id number] Implanted:Qty: 1 on 09/06/2022 by Sean Silva MD at [facility] Left: Leg Upper RICHELLE : TRAUMA 06/01/2032 [id number] / / [id number] documented as of this encounter Advance Directives Documents on File Type Date Recorded 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 POLST 10/17/2022 [place] OR DERS FOR LIFE-SUSTAINING TREATMENT POLST 09/10/2022 [place] OR DERS FOR LIFE-SUSTAINING TREATMENT Latest Code [...] Agen t (per Health Care Power of Line Fisher document) Reji Tello Neil Adult Child First Alterna te Health Care Agent (per Health Care Power of Line Fisher document) Bowen Tello Adult Child First Alternate Health Care Agent (per Health Care Power of Line Fisher document) Care Teams Application Integration Specialist Relationship Specialty Start Date End Date Muriel Moreira MD [address] [place] [address] [place] [address] PCP - General Family Medicine 06/26/18 documented as of this encounter
--- OUTSIDE RECORDS SUMMARY | 2023-08-22 04:00 | External Medical Summary | Summary of Care ---
Author Name Unknown Organization [facility] Address [address] [place] [facility] [place] [address] Phone [phone] Care Team Providers Care Translation Director Name Role Phone Muriel Moreira MD Primary Care Prov ider Reason for Visit * Reason Onset Date Comments [facility]: Maintenance 04/19/2023 Encounter Details Date Type Department Care Team Description 04/19/2023 Telephone [facility], [facility] [address] [place] [address] Kami Rosado RN [address] [place] [address] [facility]: Maintenance Allergies Active Allergy Reactions Severity Noted Date Comments James Inhibitors 09/10/2002 cough on prinivil Hydrocodone 09/05/2022 Family states AMS change when taken Prednisone 05/26/2011 Blisters in throat Sulfa Antibiotics 03/19/2001 dysurea documented as of this encounter (statuses as of 04/19/2023) Medications Medication Sig Dispensed Refills Start Date [...] as of this encounter (statuses as of 04/19/2023) Active Problems Problem Noted Date Chronic combined [...] CORONARY ATHEROSCLEROSIS OF UNSPECIFIED TYPE OF VESSEL, [place] OR GRAFT Last Assessment & Plan: Stable. 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 leg ; Rt. pentecostalism 07/0207/18/2002 07/15/2015 Dyslipidemia, goal to [...] as of this encounter (statuses as of 04/19/2023) Immunizations Name Administration Dates Next Due COVID-19 [...] Telephone Encounter - Kami Rosado RN - 04/19/2023 8:53 AM EDT Received call from patient's inquiring about mobile lab. States she usually receives a call Monday evening letting her know what time on Wednesdays, they will be coming. She did not receive that call and no one has come yet. Call to Lab Client Services. Spoke with Santosh. Referral for mobile phlebotomy in place. Standing orders active. Santosh states he will put in a request for scheduling this coming Monday. Return call to to let her know. Agreeable to date. documented in this encounter Plan of Treatment Upcoming Encounters Date Type Specialty Care Team Description 04/21/2023 Laboratory Laboratory Processing [facility], [facility] Mobile Home Draw [address] [place] [address] 04/24/2023 Home Visit [facility] Kami Rosado RN [address] [place] [address] [place] [address] 05/05/2023 Laboratory Laboratory Processing [facility], [facility] Draw [address] [place] [address] 05/19/2023 Laboratory Laboratory [facility] Draw [address] [place] [address] 06/02/2023 Laboratory Laboratory Processing [facility] Draw [address] [place] [address] 06/16/2023 Laboratory Laboratory [facility] Draw [address] [place] [address] 06/30/2023 Laboratory Laboratory Processing [facility] Draw [address] [place] [address] 07/11/2023 Cardiac Studies Cardiology [address] [address] 07/14/2023 Laboratory Laboratory Processing [facility] Draw [address] [place] [address] 07/17/2023 Office Visit Dermatology Pilar Joseph PA-C [address] [place] [address] [place] [address] 07/26/2023 Office Visit Family Medicine Muriel Moreira MD [address] [place] [address] [place] [address] 07/28/2023 Laboratory Laboratory Processing [facility] Draw [address] [place] [address] 08/11/2023 Laboratory Laboratory Processing [facility] Draw [address] [place] [address] 08/25/2023 Laboratory Laboratory Processing [facility] Home Draw [address] [place] [address] 08/29/2023 Office Visit Cardiology Chris Choudhury PA-C [address] [place] [address] 09/08/2023 Laboratory Laboratory Processing [facility], [facility] Draw [address] [place] [address] 09/22/2023 Laboratory Laboratory Processing [facility], [facility] Draw [address] [place] [address] Health Maintenance Due Date Last Done Comments [...] COPD 09/06/2023 09/06/2022 CKD PHOS USE SMARTSET 65889 09/07/2023 12/0 04/2022, 09/05/2022, 01/14/2022, Additional history exists Depression Screening, Annual for Pts 12 and Over 01/25/2024 01/24/2023 DIG LEVEL FOR MEDICATION MONITORING YEARLY 01/26/2024 01/25/2023, 04/17/2021, 03/09/2020, Additional history exists Albumin/Creatinine Ratio 01/27/2024 023, 01/14/2022, 08/14/2017, Additional history exists CKD HGB USE SMARTSET 92045 04/05/202404/05, 04/05/2023, 03/22/2023, Additional history exists Zoster Vaccines Discontinued 02/10/2012 [...] this encounter Medical Devices Implanted Type Area Bindery Machine Operator Device Identifier Shelf Expiration Date Model / Serial / Lot Screw T2 Alpha Lock 5x47.5mm - [id number] Implanted:Qty: 1 on 09/06/2022 by Sean Silva MD at [facility] Left: Leg Upper RICHELLE : TRAUMA 06/01/2032 [id number] / / [id number] documented as of this encounter Advance Directives Documents on File Type Date Recorded Patient Rivet Passer Expl anation POLST 10/17/2022 [place] OR DERS [...] Agen t (per Health Care Power of Evaporator Operator Molasses document) Reji Omer Dotts Adult Child First Alterna te Health Care Agent (per Health Care Power of Evaporator Operator Molasses document) Bowen Tello Adult Child First Alternate Health Care Agent (per Health Care Power of Evaporator Operator Molasses document) Care Teams Translation Director Relationship Specialty Start Date End Date Muriel Moreira MD [address] [place] [address] [place] Vas[place] [phone] PCP - General Family Medicine 06/26/18 documented as of this encounter
--- OUTSIDE RECORDS SUMMARY | 2023-08-22 04:01 | External Medical Summary ---
Author Name Unknown Address Unknown Organization [facility] [address] [place] [address] Laboratory Report Ordering Provider Test Date Status DEB BULL 04/05/2023 09:00:00 Final Observation Date Value Abnormality Reference (Units ) Status WBC, Total 04/05/2023 09:00:00 4.44 4.00-10.8 0 (K/uL) Final RBC 04/05/2023 09:00:00 2.32 4.50-5.25 (M/uL) Final Hemoglobin 04/05/2023 09:00:00 7.7 Below low normal 14 .0-16.8 (g/dL) Final HCT 04/05/2023 09:00:00 25.9 Below low normal 40. 0-48.4 (%) Final MCV 04/05/2023 09:00:00 111.6 82.0-99.5 (fL) Final MCH 04/05/2023 09:00:00 33.2 27.0-34.0 (pg) Final MCHC 04/05/2023 09:00:00 29.7 32.0-36.0 (g/dL) Final RDW 04/05/2023 09:00:00 16.5 11.5-15.5 (%) Final Platelets 04/05/2023 09:00:00 184 140-400 (K /uL) Final MPV 04/05/2023 09:00:00 9.8 6.6-11.1 ( fL) Final Performing Location [facility] [address] [place] [address]
--- OUTSIDE RECORDS SUMMARY | 2023-08-22 04:01 | External Medical Summary | Summary of Care ---
Author Name Unknown Organization [facility] Address [address] [place] [address] Phone [phone] Care Team Providers Care Clinical Implementation Specialist Name Role Phone Muriel Moreira MD Primary Care Prov ider Encounter Details Date Type Department Care Team Description 03/22/2023 Result Scan Unspecified Department Hao Sanofrd MD [address] [place] [address] <No scans attached> Allergies Active Allergy Reactions Severity Noted Date Comments James Inhibitors 09/10/2002 cough on prinivil Hydrocodone 09/05/2022 Family states AMS change when taken Prednisone 05/26/2011 Blisters in throat Sulfa Antibiotics 03/19/2001 dysurea documented as of this encounter (statuses as of 03/22/2023) Medications Medication Sig Dispensed Refills Start Date End Date Status OXYGENIndications:Hyp oxia,Acute systolic CHF (congestive heart failure) (HCC) 2L/min via nasal cannula 24 hours continous, please provide portables as well 1 Each 0 07/30/2014 Active Dutasteride 0.5 MG Oral Capsule (Avodart)Indications: BPH with obstruction/lower urinary tract symptoms Take by mouth 0.5 mg in the morning. 90 Capsule 1 05/13/2022 Active Latanoprost 0.005 % Ophthalmic Solution (Xalatan) [...] Delayed Release (Protonix)Indications :GERD (gastroesophageal reflux disease) TAKE ONE TABLET BY [...] THE MORNING 90 Tablet 3 12/23/2022 Active metFORMIN HCl ER 500 MG Oral Tablet Extended Release 24 Hour (Glucophage XR)Indications:Type 2 diabetes mellitus with hemoglobin A1c goal of less than 7.5% (HCC) Take 2 Tablets by mouth in the morning. 180 Tablet 1 01/29/2023 04/29/2023 Active Furosemide 40 MG Oral Tablet (Lasix) Take 1 Tablet by mouth in the morning. 100 Tablet 3 02/23/2023 Active Potassium Chloride Emma ER 20 MEQ Oral Tablet Extended ReleaseIndications:Hy pokalemia TAKE 1 TABLET BY MOUTH EVERY MORNING 90 Tablet 0 02/25/2023 Active Digoxin 125 MCG Oral Tablet (Lanoxin) TAKE ONE TABLET 3 days per week 36 Tablet 3 03/10/2023 Active documented as of this encounter (statuses as of 03/22/2023) Active Problems Problem Noted Date Chronic combined [...] CORONARY ATHEROSCLEROSIS OF UNSPECIFIED TYPE OF VESSEL, [place] OR GRAFT Last Assessment & Plan: Stable. 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 documented as of this encounter (statuses as of 03/22/2023) Resolved Problems Problem Noted Date Resolved Date [...] 202101/24/2023 Overview: Xavier to [facility] 04/20-04/29 urosepsis multi drug resistant E. [...] glenn ek & Lt. leg 4/98; Rt. episcopal 07/0207/18/2002 07/15/2015 Dyslipidemia, goal to be determined [...] as of this encounter (statuses as of 03/22/2023) Immunizations Name Administration Dates Next Due COVID-19 [...] Encounters Date Type Specialty Care Team Description 03/24/2023 [facility] Brennen Kay PA-C [address] [place] [address] 04/24/2023 [facility] Kami Rosado RN [address] [place] [address] 07/11/2023 Cardiac Studies Cardiology [facility] [address] [place] [address] 07/17/2023 Office Visit Dermatology Pilar Joseph PA-C [address] [place] [address] [place] [address] 07/26/2023 Office Visit Family Medicine Muriel Moreira MD [address] [place] [address] [place] [address] 08/29/2023 Office Visit Cardiology Chris Choudhury PA-C [address] [place] [address] Health Maintenance Due Date Last Done Comments Alpha-1 Antitrypsin 1953 DIABETES-EYE EXAM 10/28/2022 10/28/2021, , 10/30/2019, Additional history exists DTaP,Tdap,and Td Vaccines (2 - Td or Tdap) 01/11/2023 01/11/2013, 04/01/2003, 04/01/2003 DIABETES-FOOT EXAM 01/14/2023 01/14/2022, 0 12/24/2020, 03/09/2020, Additional history exists HbA1c 07/27/2023 01/25/2023, 12/03/2022, 01/14/2022, Additional history exists O2 ASSESSMENT COMPLETED IN PAST YEAR FOR COPD 09/06/2023 09/06/2022 CKD PHOS USE SMARTSET 69883 09/07/2023 12/0 04/2022, 09/05/2022, 01/14/2022, Additional history exists Depression Screening, Annual for Pts 12 and Over 01/25/2024 01/24/2023 DIG LEVEL FOR MEDICATION MONITORING YEARLY 01/26/2024 01/25/2023, 04/17/2021, 03/09/2020, Additional history exists Albumin/Creatinine Ratio 01/27/2024 023, 01/14/2022, 08/14/2017, Additional history exists CKD HGB USE SMARTSET 66522 03/08/202403/08, 03/08/2023, 02/22/2023, Additional history exists Zoster Vaccines Discontinued 02/10/2012 DXA Scan Discontinued 01/22/2016, 09/02, 09/16/2011, Additional history exists Pneumococcal Vaccine: 65+ Years Completed 01/22/2019, 01/30/2015, 08/22/2006 Influenza Vaccine (FLU shot) Completed 07/22/2022, 06/17/2021, 06/17/2021, Additional history exists COVID-19 Vaccine Completed 08/29/2022, , 08/24/2021, Additional [...] this encounter Medical Devices Implanted Type Area Director Fraud Device Identifier Shelf Expiration Date Model / Serial / Lot Screw T2 Alpha Lock 5x47.5mm - [id number] Implanted:Qty: 1 on 09/06/2022 by Sean Silva MD at OR [facility] Left: Leg Upper RICHELLE : TRAUMA 06/01/2032 [id number] / / [id number] documented as of this encounter Procedures Procedure Name Priority Date/Time Associated Diagnosis Comments CARDIOLOGY SCANNED RESULT 03/22/2023 documented in this encounter Results * CARDIOLOGY SCANNED RESULT (03/22/2023) 03/22/2023 Hao Sanford MD OTHER documented in this encounter Advance Directives Documents on File Type Date Recorded Patient Welt Cutter Expl anation POLST 10/17/2022 [place] DERS [...] Agen t (per Health Care Power of Calender Wind Up Tender document) Reji Tello Dotts Adult Child First Alterna te Health Care Agent (per Health Care Power of Calender Wind Up Tender document) Bowen eTllo Adult Child First Alternate Health Care Agent (per Health Care Power of Calender Wind Up Tender document) Care Teams Clinical Implementation Specialist Relationship Specialty Start Date End Date Muriel Moreira MD [address] [place] [address] [place] [address] PCP - General Family Medicine 06/26/18 documented as of this encounter
--- OUTSIDE RECORDS SUMMARY | 2023-08-22 04:01 | External Medical Summary | Summary of Care ---
Author Name Unknown Organization [facility] Address [address] [place] [address] Phone [phone] Care Team Providers Care Data Analytics Chief Scientist Name Role Phone Muriel Moreira MD Primary Care Prov ider Reason for Visit * Reason Comments eRx-Medication Refill Encounter Details Date Type Department Care Team Description 03/10/2023 Refill Cardiology [address] [place] [id number] Hao Sanford MD [address] [place] [address] Allergies Active Allergy Reactions Severity Noted Date Comments James Inhibitors 09/10/2002 cough on prinivil Hydrocodone 09/05/2022 Family states AMS change when taken Prednisone 05/26/2011 Blisters in throat Sulfa Antibiotics 03/19/2001 dysurea documented as of this encounter (statuses as of 03/10/2023) Medications Medication Sig Dispensed Refills Start Date End Date Status OXYGENIndications:Hy poxia,Acute systolic CHF (congestive heart failure) (HCC) 2L/min via nasal cannula 24 hours continous, please provide portables as well 1 Each 0 07/30/2014 Active Dutasteride 0.5 MG Oral Capsule (Avodart)Indications :BPH with obstruction/lower urinary tract symptoms Take by [...] 75 MG Oral Tablet (pLAVix)Indications: Atherosclerosis of [place] coronary artery of [place] heart without angina pectoris TAKE ONE TABLET BY MOUTH IN THE MORNING 90 Tablet 3 12/23/2022 Active metFORMIN HCl ER 500 MG Oral Tablet Extended Release 24 Hour (Glucophage XR)Indications:Type 2 diabetes mellitus with hemoglobin A1c goal of less than 7.5% (HCC) Take 2 Tablets by mouth in the morning. 180 Tablet 1 01/29/2023 Active Furosemide 40 MG Oral Tablet (Lasix) Take 1 Tablet by mouth in the morning. 100 Tablet 3 02/23/2023 Active Potassium Chloride Emma ER 20 MEQ Oral Tablet Extended ReleaseIndications:H ypokalemia TAKE 1 TABLET BY MOUTH EVERY MORNING 90 Tablet 0 02/25/2023 Active Digoxin 125 MCG Oral Tablet (Lanoxin) TAKE ONE TABLET 3 days per week 36 Tablet 3 03/10/2023 Active Digoxin 125 MCG Oral Tablet (Lanoxin) TAKE ONE TABLET 3 days per week 36 Tablet 3 05/13/2022 3 Discontinue d(Refill) documented as of this encounter (statuses as of 03/10/2023) Active Problems Problem Noted Date Chronic combined [...] Assessment & Plan: BP at goal -Continue coaline mcdanielsvasc Asthma, moderate persistent 07/12/2011 Tachy-lorna syndrome 02/08/2010 Dyslipidemia, goal LDL below 70 09/10/20 09 Overview: Per Lipid Taxonomy. erectile dysfunction 08/19/2008 BPH without obstruction/lower urinary tr act symptoms 04/24/2006 Last Assessment & Plan: Urinating without difficulty -Continue Dutesteride Elevated prostate specific antigen (PSA) 02/03/2004 CORONARY ATHEROSCLEROSIS OF UNSPECIFIED TYPE OF VESSEL, [place] OR GRAFT Last Assessment & Plan: Stable. 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 documented as of this encounter (statuses as of 03/10/2023) Resolved Problems Problem Noted Date Resolved Date [...] as of this encounter (statuses as of 03/10/2023) Immunizations Name Administration Dates Next Due COVID-19 [...] encounter Miscellaneous Notes * Telephone Encounter - Hao Sanford MD - 03/10/2023 2:20 PM EDT Okay to refill * Telephone Encounter - Montrell Seay RN - 03/10/2023 1:30 PM EDTRefused Prescriptions: Disp Refills Digoxin 125 MCG Oral Tablet (Lanoxin) 36 Tab*0 Sig: TAKE 1 TABLET 3 DAYS PER WEEK.Refused By: MONTRELL SEAY for Refusal: Managed by another physician----- documented in this encounter Plan of Treatment Upcoming Encounters Date Type Specialty Care Team Description 03/22/2023 Laboratory Laboratory Processing [facility] [address] [place] [address] 03/24/2023 [facility] Visit [facility] Brennen Kay PA-C [address] [place] [address] 04/24/2023 [facility] Visit [facility] Kami Rosado, RN [address] [place] [address] 07/11/2023 Cardiac Studies Cardiology [facility] [address] [place] [address] 07/17/2023 Office Visit Dermatology Pilar Joseph PA-C [address] [place] [address] [place] [address] 07/26/2023 Office Visit Family Medicine Muriel Moreira MD [address] [place] [address] [place] [address] 08/29/2023 Office Visit Cardiology Chris Choudhury PA-C [address] [place] [address] Health Maintenance Due Date Last Done Comments [...] COPD 09/06/2023 09/06/2022 CKD PHOS USE SMARTSET 02800 09/07/2023 12/0 04/2022, 09/05/2022, 01/14/2022, Additional history exists Depression Screening, Annual for Pts 12 and Over 01/25/2024 01/24/2023 DIG LEVEL FOR MEDICATION MONITORING YEARLY 01/26/2024 01/25/2023, 04/17/2021, 03/09/2020, Additional history exists Albumin/Creatinine Ratio 01/27/2024 023, 01/14/2022, 08/14/2017, Additional history exists CKD HGB USE SMARTSET 81351 03/08/202403/08, 03/08/2023, 02/22/2023, Additional history exists Zoster [...] this encounter Medical Devices Implanted Type Area Adjunct Physical Education Instructor Device Identifier Shelf Expiration Date Model / Serial / Lot Screw T2 Alpha Lock 5x47.5mm - [id number] Implanted:Qty: 1 on 09/06/2022 by Sean Silva MD at [place] [facility] [place] Left: Leg Upper RICHELLE : TRAUMA 06/01/2032 [id number] / / [id number] documented as of this encounter Advance Directives Documents on File Type Date Recorded Patient Vocational Rehabilitation Consultant Expl anation POLST 10/17/2022 [place] [facility]-SUSTAINING TREATMENT POLST 09/10/2022 [place] [facility] FOR LIFE-SUSTAINING TREATMENT [...] Agen t (per Health Care Power of Toggler document) Reji Tello Dotts Adult Child First Alterna te Health Care Agent (per Health Care Power of Toggler document) Bowen Tello Adult Child First Alternate Health Care Agent (per Health Care Power of Toggler document) Care Teams Data Analytics Chief Scientist Relationship Specialty Start Date End Date Muriel Moreira MD [address] [place] [address] [place] [address] PCP - General Family Medicine 06/26/18 documented as of this encounter
--- OUTSIDE RECORDS SUMMARY | 2023-08-22 04:01 | External Medical Summary ---
Author Name Unknown Address Unknown Organization [id number]:[facility] [address] [place] [address] Laboratory Report Ordering Provider Test Date Status DEB BULL 03/08/2023 08:18:00 Final Observation Date Value Abnormality Reference (Units ) Status WBC, Total 03/08/2023 08:18:00 4.90 4.00-10.80 (K/uL) Final RBC 03/08/2023 08:18:00 2.66 4.50-5.25 (M/uL) Final Hemoglobin 03/08/2023 08:18:00 8.7 Below low normal 14.0-16.8 (g/dL) Final HCT 03/08/2023 08:18:00 28.7 Below low normal 40.0-48.4 (%) Final MCV 03/08/2023 08:18:00 107.9 82.0-99.5 (fL) Final MCH 03/08/2023 08:18:00 32.7 27.0-34.0 (pg) Final MCHC 03/08/2023 08:18:00 30.3 32.0-36.0 (g/dL) Final RDW 03/08/2023 08:18:00 16.2 11.5-15.5 (%) Final Platelets 03/08/2023 08:18:00 222 140-400 (K/uL) Final MPV 03/08/2023 08:18:00 9.8 6.6-11.1 (fL) Final Nucleated erythrocytes/100 leukocytes [Ratio] in Blood by Automated count 03/08/2023 08:18:00 0 <=0 (/100 WBCs) Final Performing Location LAB[facility]ATORY [facility] - [address] [place] [address]
--- OUTSIDE RECORDS SUMMARY | 2023-08-22 04:01 | External Medical Summary ---
Author Name Unknown Address Unknown Organization [id number]:[facility]ATORY [facility] - [address] [place] [address] Laboratory Report Ordering Provider Test Date Status DEB BULL 04/05/2023 09:00:00 Final Observation Date Value Abnormality Reference (Units ) Status SYNC LEUKOCYTES IN BLOOD BY AUTOMATED COUNT 04/05/2023 09:00:00 4.44 4.00-10.80 (K/uL) Final Segs 04/05/2023 09:00:00 44.6 40.0-75.0 (%) Final Lymphs % 04/05/2023 09:00:00 29.7 18.0-42.0 (%) Final Monos 04/05/2023 09:00:00 14.4 Above high normal 1.0-11.0 (%) Final Eosinophils 04/05/2023 09:00:00 10.6 Above high normal 0.0-6.0 (%) Final Basos 04/05/2023 09:00:00 0.7 0.0-2.0 (%) Final Absolute Segs 04/05/2023 09:00:00 1.98 1.80-7.70 (K/uL) Final Lymphs, absolute 04/05/2023 09:00:00 1.32 1.00-4.80 (K/ul) Final Monos, Abs 04/05/2023 09:00:00 0.64 0.00-1.10 (K/uL) Final Eos, Abs 04/05/2023 09:00:00 0.47 0.00-0.70 (K/uL) Final Basos, Abs 04/05/2023 09:00:00 0.03 0.00-0.20 (K/uL) Final Performing Location LAB[facility]ATORY [facility] - [address] [place] [address]
--- OUTSIDE RECORDS SUMMARY | 2023-08-22 04:01 | External Medical Summary | Summary of Care ---
Author Name Unknown Organization [facility] Address [address] [place] [address] Phone [phone] Care Team Providers Care Fur Finisher Tailor Name Role Phone Muriel Moreira MD Primary Care Prov ider Reason for Visit * Reason Onset Date Comments Test Results 03/23/2023 Encounter Details Date Type Department Care Team Description 03/23/2023 Telephone Hematology/Oncology [facility] [address] [place] [address] Pietro Sykes [facility] [address] [facility] [address] Test Results Allergies Active Allergy Reactions Severity Noted Date Comments James Inhibitors 09/10/2002 cough on prinivil Hydrocodone 09/05/2022 Family states AMS change when taken Prednisone 05/26/2011 Blisters in throat Sulfa Antibiotics 03/19/2001 dysurea documented as of this encounter (statuses as of 03/23/2023) Medications Medication Sig Dispensed Refills Start Date End Date Status OXYGENIndications:Hypo shaquille,Acute systolic CHF (congestive heart failure) (HCC) 2L/min via nasal cannula 24 hours continous, please provide portables as well 1 Each 0 07/30/2014 Active Dutasteride 0.5 MG Oral Capsule (Avodart)Indications: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 90 Tablet 3 05/20/2022 Active Methenamine Hippurate 1 GM Oral Tablet Take 1 Tablet by mouth in the morning and 1 Tablet before bedtime. 0 06/06/2022 Active Metoprolol Succinate ER 50 MG Oral Tablet Extended Release 24 Hour (toPROL XL)Indications:Heart failure, systolic, due to CAD ([facility]),Tachy-lorna syndrome (HCC) TAKE ONE TABLET BY MOUTH [...] 75 MG Oral Tablet (pLAVix)Indications:At herosclerosis of [place] coronary artery of [place] heart without angina pectoris TAKE [...] a meal.. 30 Tablet 5 03/22/2023 Active documented as of this encounter (statuses as of 03/23/2023) Active Problems Problem Noted Date Chronic combined [...] CORONARY ATHEROSCLEROSIS OF UNSPECIFIED TYPE OF VESSEL, [place] OR GRAFT Last Assessment & Plan: Stable. 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 leg 4/98; Rt. rastafarian 07/0207/18/2002 07/15/2015 Dyslipidemia, goal to be determined [...] as of this encounter (statuses as of 03/23/2023) Immunizations Name Administration Dates Next Due COVID-19 [...] Telephone Encounter - Ludivina Eden LPN - 03/23/2023 8:47 AM EDT Mobile Phlebotomy: Please have cbcd drawn on patient in 2 weeks. Thank you. Sent patient Spacious message to notify, patient is active. ----- Message from Pietro Sykes MD sent at 03/23/2023 6:29 AM EDT ----- Blood workup done on 03/22/2023: -WBC 4700, H&H of 8.1/27.6, Platelet count [id number]. Overall mild anemia noted, hemoglobin level slightly dropped to around 8.1 No need for blood transfusion Will repeat another blood count in about 2 weeks. If hemoglobin is less than 7, we should consider for blood transfusion. documented in this encounter Plan of Treatment Upcoming Encounters Date Type Specialty Care Team Description 03/24/2023 Home Visit [facility] Brennen Kay PA-C [address] [place] [address] 04/24/2023 [facility] Visit [facility] Kami Rosado RN [address] [place] [address] 07/11/2023 Cardiac Studies Cardiology [facility] [address] [place] [address] 07/17/2023 Office Visit Dermatology Pilar Joseph PA-C [address] [place] [address] [place] [address] 07/26/2023 Office Visit Family Medicine Muriel Moreira MD [address] [place] [address] [place] [address] 08/29/2023 Office Visit Cardiology Chris Choudhury PA-C [address] [place] [address] Health Maintenance Due Date Last Done Comments [...] COPD 09/06/2023 09/06/2022 CKD PHOS USE SMARTSET 87802 09/07/2023 12/0 04/2022, 09/05/2022, 01/14/2022, Additional history exists Depression Screening, Annual for Pts 12 and Over 01/25/2024 01/24/2023 DIG LEVEL FOR MEDICATION MONITORING YEARLY 01/26/2024 01/25/2023, 04/17/2021, 03/09/2020, Additional history exists Albumin/Creatinine Ratio 01/27/2024 023, 01/14/2022, 08/14/2017, Additional history exists CKD HGB USE SMARTSET 80463 03/22/202403/22, 03/22/2023, 03/08/2023, Additional history exists Zoster Vaccines Discontinued 02/10/2012 [...] this encounter Medical Devices Implanted Type Area High Density Press Operator Device Identifier Shelf Expiration Date Model / Serial / Lot Screw T2 Alpha Lock 5x47.5mm - [id number] Implanted:Qty: 1 on 09/06/2022 by Sean Silva MD at [facility] Left: Leg Upper RICHELLE : TRAUMA 06/01/2032 [id number] / / [id number] documented as of this encounter Advance Directives Documents on File Type Date Recorded Patient Radiological Equipment Specialist Expl anation POLST 10/17/2022 [place] OR DERS [...] Agen t (per Health Care Power of Quad Stayer document) Reji Omer Dotts Adult Child First Alterna te Health Care Agent (per Health Care Power of Quad Stayer document) Bowen Tello Adult Child First Alternate Health Care Agent (per Health Care Power of Quad Stayer document) Care Teams Fur Finisher Tailor Relationship Specialty Start Date End Date Muriel Moreira MD [address] [place] [address] [place] [phone] PCP - General Family Medicine 06/26/18 documented as of this encounter
--- OUTSIDE RECORDS SUMMARY | 2023-08-22 04:01 | External Medical Summary ---
Author Name Unknown Address Unknown Organization [id number]:[facility] [place] [address] [place] [address] Laboratory Report Ordering Provider Test Date Status DEB BULL 03/22/2023 07:56:00 Final Observation Date Value Abnormality Reference (Units ) Status WBC, Total 03/22/2023 07:56:00 4.76 4.00-10.80 (K/uL) Final RBC 03/22/2023 07:56:00 2.49 4.50-5.25 (M/uL) Final Hemoglobin 03/22/2023 07:56:00 8.1 Below low normal 14.0-16.8 (g/dL) Final HCT 03/22/2023 07:56:00 27.6 Below low normal 40.0-48.4 (%) Final MCV 03/22/2023 07:56:00 110.8 82.0-99.5 (fL) Final MCH 03/22/2023 07:56:00 32.5 27.0-34.0 (pg) Final MCHC 03/22/2023 07:56:00 29.3 32.0-36.0 (g/dL) Final RDW 03/22/2023 07:56:00 16.7 11.5-15.5 (%) Final Platelets 03/22/2023 07:56:00 262 140-400 (K/uL) Final MPV 03/22/2023 07:56:00 9.5 6.6-11.1 (fL) Final Nucleated erythrocytes/100 leukocytes [Ratio] in Blood by Automated count 03/22/2023 07:56:00 0 <=0 (/100 WBCs) Final Performing Location LABORATORY [facility] - [address] [place] [address]
--- OUTSIDE RECORDS SUMMARY | 2023-08-22 04:01 | External Medical Summary ---
Author Name Unknown Address Unknown Organization [id number]:LABORATORY [facility] [place] - [address] [place] [address] Laboratory Report Ordering Provider Test Date Status DEB BULL 03/22/2023 07:56:00 Final Observation Date Value Abnormality Reference (Units ) Status Ferritin 03/22/2023 07:56:00 60 30-400 (ng /mL) Final Performing Location LAB[facility]ORY [facility] - [address] [place] [address]
--- OUTSIDE RECORDS SUMMARY | 2023-08-22 04:01 | External Medical Summary ---
Author Name Unknown Address Unknown Organization [id number]:LABORATORY [facility] [place] - [address] [facility] [place] [address] Laboratory Report Ordering Provider Test Date Status DEB BULL 03/22/2023 07:56:00 Final Observation Date Value Abnormality Reference (Units ) Status SYNC LEUKOCYTES IN BLOOD BY AUTOMATED COUNT 03/22/2023 07:56:00 4.76 4.00-10.80 (K/uL) Final Segs 03/22/2023 07:56:00 37.4 Below low normal 40.0-75.0 (%) Final Lymphs % 03/22/2023 07:56:00 38.2 18.0-42.0 (%) Final Monos 03/22/2023 07:56:00 12.0 Above high normal 1.0-11.0 (%) Final Eosinophils 03/22/2023 07:56:00 11.6 Above high normal 0.0-6.0 (%) Final Basos 03/22/2023 07:56:00 0.6 0.0-2.0 (%) Final Immature Granulocyte, Percent 03/22/2023 07:56:00 0.2 0.0-2.0 (%) Final Absolute Segs 03/22/2023 07:56:00 1.78 Below low normal 1.80-7.70 (K/uL) Final Lymphs, absolute 03/22/2023 07:56:00 1.82 1.00-4.80 (K/ul) Final Monos, Abs 03/22/2023 07:56:00 0.57 0.00-1.10 (K/uL) Final Eos, Abs 03/22/2023 07:56:00 0.55 0.00-0.70 (K/uL) Final Basos, Abs 03/22/2023 07:56:00 0.03 0.00-0.20 (K/uL) Final Immature Granulocytes, Number 03/22/2023 07:56:00 0.01 0.00-0.20 (K/uL) Final Performing Location LABORATORY [facility] [place] - [facility] [place] [address]
--- OUTSIDE RECORDS SUMMARY | 2023-08-22 04:01 | External Medical Summary | Summary of Care ---
Author Name Unknown Organization [facility] Address [address] [place] [address] Phone [phone] Care Team Providers Care Sterile Technician Name Role Phone Muriel Moreira MD Primary Care Prov ider Reason for Visit * Reason Onset Date Comments Test Results Lab 03/13/2023 Encounter Details Date Type Department Care Team Description 03/13/2023 Telephone Hematology/Oncology [facility] [address] [place] [address] Pietro Sykes MD [address] [place] [address] Test Results Lab Allergies Active Allergy Reactions Severity Noted Date Comments James Inhibitors 09/10/2002 cough on prinivil Hydrocodone 09/05/2022 Family states AMS change when taken Prednisone 05/26/2011 Blisters in throat Sulfa Antibiotics 03/19/2001 dysurea documented as of this encounter (statuses as of 03/13/2023) Medications Medication Sig Dispensed Refills Start Date [...] (Cozaar)Indications:H eart failure, systolic, due to CAD ([facility]) Take by mouth 1 Tablet in the [...] 75 MG Oral Tablet (pLAVix)Indications:A therosclerosis of [place] coronary artery of [place] heart without angina pectoris TAKE ONE TABLET [...] as of this encounter (statuses as of 03/13/2023) Active Problems Problem Noted Date Chronic combined [...] Assessment & Plan: BP at goal -Continue cozaaline vallevasc Asthma, moderate persistent 07/12/2011 Tachy-lorna syndrome 02/08/2010 Dyslipidemia, goal LDL below 70 09/10/20 09 Overview: Per Lipid Taxonomy. 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 leg ; Rt. uatsdin 07/0207/18/2002 07/15/2015 Dyslipidemia, goal to be determined [...] as of this encounter (statuses as of 03/13/2023) Immunizations Name Administration Dates Next Due COVID-19 [...] Telephone Encounter - Ludivina Eden LPN - 03/13/2023 9:09 AM EDT Notified patient per [employer] message, patient is active. Standard orders already entered for cbcd every2 months ----- Message from Pietro Sykes MD sent at 03/12/2023 5:52 PM EDT ----- Blood workup done on 03/08/2023: -WBC 4900, hemoglobin level -> 8.7, Platelet count 072660 next para overall stable anemia. Will repeat another CBCD in about 2 months documented in this encounter Plan of Treatment Upcoming Encounters Date Type Specialty Care Team Description 03/22/2023 Laboratory Laboratory Processing [facility] Home Draw [address] [place] [address] 03/24/2023 Home Visit [facility] Brennen Kay PA-C [address] [place] [phone] 04/24/2023 Home Visit [facility] Kami Rosado RN [address] [place] [address] 07/11/[address] [facility] [address] [place] [address] 07/17/2023 Office Visit Dermatology Pilar Joseph PA-C [address] [place] [address] [place] [address] 07/26/2023 Office Visit Family Medicine Muriel Moreira MD [address] [place] [address] [place] [address] 08/29/2023 Office Visit Cardiology Chris Choudhury PA-C [address] [place] [phone] Health Maintenance Due Date Last Done Comments [...] COPD 09/06/2023 09/06/2022 CKD PHOS USE SMARTSET 35365 09/07/2023 12/0 04/2022, 09/05/2022, 01/14/2022, Additional history exists Depression Screening, Annual for Pts 12 and Over 01/25/2024 01/24/2023 DIG LEVEL FOR MEDICATION MONITORING YEARLY 01/26/2024 01/25/2023, 04/17/2021, 03/09/2020, Additional history exists Albumin/Creatinine Ratio 01/27/2024 023, 01/14/2022, 08/14/2017, Additional history exists CKD HGB USE SMARTSET 52675 03/08/202403/08, 03/08/2023, 02/22/2023, Additional history exists Zoster [...] this encounter Medical Devices Implanted Type Area Buyer Intern Device Identifier Shelf Expiration Date Model / Serial / Lot Screw T2 Alpha Lock 5x47.5mm - [id number] Implanted:Qty: 1 on 09/06/2022 by Sean Silva MD at [facility] Left: Leg Upper RICHELLE : TRAUMA 06/01/2032 [id number] / / [id number] documented as of this encounter Advance Directives Documents on File Type Date Recorded Patient Sample Preparation 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 anation POLST 10/17/2022 [place] DERS [...] Agen t (per Health Care Power of Hospice Home Health Aide document) Reji Omer Dotts Adult Child First Alterna te Health Care Agent (per Health Care Power of Hospice Home Health Aide document) Bowen Tello Adult Child First Alternate Health Care Agent (per Health Care Power of Hospice Home Health Aide document) Care Teams Sterile Technician Relationship Specialty Start Date End Date Muriel Moreira MD [address] [place] [address] [place] [phone] PCP - General Family Medicine 06/26/18 documented as of this encounter
--- OUTSIDE RECORDS SUMMARY | 2023-08-22 04:01 | External Medical Summary | Summary of Care ---
Author Name Unknown Organization [facility] Address [address] [facility] [place] [address] Phone [phone] Care Team Providers Care Hand Alterations Seamstress Name Role Phone Muriel Moreira MD Primary Care Prov ider Encounter Details Date Type Department Care Team Description 03/24/2023 [facility] Visit [facility], [facility] [address] [place] [place] [address] Brennen Kay PA-C [address] [place] [place] [address] Palliative care encounter*; Advanced care planning/counseling discussion; Multiple myeloma not having achieved remission (HCC); 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); Type 2 diabetes mellitus with stage 3a chronic kidney disease, without long-term current use of insulin (HCC) Allergies Active Allergy Reactions Severity Noted Date Comments James Inhibitors 09/10/2002 cough on prinivil Hydrocodone 09/05/2022 Family states AMS change when taken Prednisone 05/26/2011 Blisters in throat Sulfa Antibiotics 03/19/2001 dysurea documented as of this encounter (statuses as of 03/24/2023) Medications Medication Sig Dispensed Refills Start Date End Date Status OXYGENIndications:Hypo shaquille,Acute systolic CHF (congestive heart failure) ([facility]) 2L/min via nasal cannula 24 [...] 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 ([facility]) Use to test blood sugar as needed 100 Strip 3 05/20/2022 Active OneTouch UltraSoft LancetsIndications:Typ e 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 ([facility]) Use to test blood sugar as needed 100 Each 3 05/20/2022 Active Losartan Potassium 50 MG Oral Tablet (Cozaar)Indications:He art failure, systolic, due to CAD ([facility]) Take by mouth 1 Tablet in the morning. 90 Tablet 3 05/20/2022 Active Methenamine Hippurate 1 GM Oral Tablet Take 1 Tablet by mouth in the morning and 1 Tablet before bedtime. 0 06/06/2022 Active Metoprolol Succinate ER 50 MG Oral Tablet Extended Release 24 Hour (toPROL XL)Indications:Heart failure, systolic, due to CAD ([facility]),Tachy-lorna syndrome (HCC) TAKE ONE TABLET BY MOUTH [...] 75 MG Oral Tablet (pLAVix)Indications:At herosclerosis of [place] coronary artery of [place] heart without angina pectoris TAKE ONE TABLET [...] as of this encounter (statuses as of 03/24/2023) Active Problems Problem Noted Date Chronic combined [...] OF UNSPECIFIED TYPE OF VESSEL, [place] OR GRAFT Last Assessment & Plan: Stable. 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 leg ; Rt. church 07/0207/18/2002 07/15/2015 Dyslipidemia, goal to be determined [...] as of this encounter (statuses as of 03/24/2023) Immunizations Name Administration Dates Next Due COVID-19 [...] Sign Reading Time Taken Comments Blood Pressure 124/66 03/24/2023 1:02 PM EDT Pulse 80 03/24/2023 1:02 PM EDT Temperature - - Respiratory Rate - - Oxygen Saturation 96% 03/24/2023 1:02 PM EDT Inhaled Oxygen Concentration - - [...] Progress Notes * Brennen Kay PA-C - 03/24/2023 11:56 AM EDT [facility] Palliative Medicine Progress Note Date: 03/24/2023 Time: 12:00 Name: Marshall Tello . : 1935 Purpose of Visit: Symptom management, Advance care planning and Discuss goals of care Location: Home Individual(s) present: Patient and Spouse Coordination of Care: Cardiology and Primary Care ASSESSMENT/PLAN: (Z51.5) Palliative care encounter (primary encounter diagnosis) (Z71.89) Advanced care planning/counseling discussion (C90.00) Multiple myeloma not having achieved remission (HCC) Plan: continues routine lab work monitored by heme/onc Would be ok with transfusion if indicated hgb gradually trending down No aggressive treatment Ongoing fatigue reported by (G30.1, F02.80) 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) Plan: 24/04 care at home (E11.22, N18.31) Type 2 diabetes mellitus with stage 3a chronic kidney disease, without long-term current use of insulin (HCC) Plan: did not tolerate metformin, recently started glipizide Spouse will monitor for nausea/change in appetite If he does not tolerate, a1c around 9% likely acceptable based on age and comorbidities Hemoglobin AIC Results: Lab Results Component Value Date/Time HEMOGLOBIN A1C - [facility] 9.3 (H) 01/25/2023 08:06 AM HEMOGLOBIN A1C - [facility] 7.8 (H) 09/06/2022 03:24 AM HEMOGLOBIN A1C - [facility] 6.4 (H) 01/14/2022 04:27 PM HEMOGLOBIN A1C - [facility] 6.9 (H) 03/09/2020 12:04 PM HEMOGLOBIN A1C - [facility] 6.6 (H) 07/03/2019 11:10 AM HEMOGLOBIN A1C - [facility] 7.1 (H) 01/22/2019 11:30 AM Continue to follow for palliative. Will schedule return in 2 to 3 months, or sooner if indicated. Advance care planning/Goals of Care: See documentation in Advance Care Planning module and ACP note. SUBJECTIVE: Family present: yes, reviewed Patient is 87 year old with dementia and recently diagnosed multiple myeloma. Found to have lytic lesion of left femur with impending fracture, and underwent ORIF 09/06/22 followed by SNF stay. Palliative and oncology consulted and family elected against aggressive treatment for myeloma. He did have1 radiation treatment. Was trialed on dexamethasone, however had to be stopped due to increased confusion and agitation. He did require transfusion during admission, and family agreeable to this in the future as well at this point. Patient lives at home with his as primary caregiver. Children live close by, with 1 living next door, that help out. He remains fairly functional, able to dress, shower, and toilet himself. Spouse prepares meals and manages medications. Had covid in , symptoms improved with antivirals. Spouse reports patient then developed some cold sxs again in the last few weeks, but has been improving. Still has occasional cough, but no fever/chills, sob. ROS limited by dementia. He reports feeling well and offers no concerns. Family avoids discussing diagnosis of myeloma in front of patient due to dementia. His labs are being monitored twice weekly. Has not required transfusion since , but family still agreeable. Recent labs stable. Spouse reports patient with ongoing fatigue, although did have a day last week that was more active. He did recently have blood noted in underwear, urine was negative. Does have h/o uti, on methenamine for prevention. No further symptoms. Has ongoing cough. H/o allergies but currently not on anything. Would like to avoid any additional meds. Denies SOB, fever/chills. Has some runny nose and drainage. Denies sore throat. Pain: denies pain, using tylenol bid Nausea: no Vomiting: no Confusion: yes, reviewed Somnolence: yes, reviewed Constipation: no Dyspnea: no Anxious: no Ongoing fatigue Started glipizide, metformin caused nausea Resolved since stopping metformin Cbc stable No pain Pain: denies Nausea: none, has resolved since stopping metformin Vomiting: no Confusion: yes, reviewed Somnolence: yes, reviewed Constipation: no Dyspnea: no Anxious: no Support: spouse, daughter next door, son close Med Management: spouse Ambulates: independent HISTORY: Social History Tobacco Use Smoking status: Former Packs/day: 1.00 Years: 20.00 Pack years: 20.00 Types: Cigarettes Quit date: 10/02/1969 Years since quittin.5 Smokeless tobacco: Never Tobacco comments: 1969 Substance Use Topics Alcohol use: Not Currently Comment: rare 87 year old year-old male with the following active problems: Patient Active Problem List Diagnosis Code CORONARY ATHEROSCLEROSIS OF UNSPECIFIED TYPE OF VESSEL, [place] OR GRAFT I25.10 Elevated prostate specific antigen [...] nephropathy, without long-term current use of insulin ([facility]) E11.21 Sensorineural hearing loss (SNHL) of both ears H90.3 Hx of nonmelanoma skin cancer Z85.828 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, R31.9 Chronic atrial fibrillation ([facility]) I48.20 Primary open-angle glaucoma, left eye, mild stage H40.1121 Skin lesion L98.9 DISH (diffuse idiopathic skeletal hyperostosis) M48.10 Chronic obstructive pulmonary disease ([facility]) J44.9 Other specified peripheral vascular diseases ([facility]) I73.89 Type 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 ([facility]) E11.51 DM type 2 with diabetic peripheral neuropathy ([facility]) E11.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 ([facility]) I13.0, I50.42, N18.31 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 ([facility]) N18.31, D63.1 Iron deficiency anemia D50.9 Type 2 diabetes mellitus with stage 3a chronic kidney disease, without long- term current use ofinsulin ([facility]) E11.22, N18.31 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[facility]) G30.1, F02.80 Multiple myeloma ([facility]) C90.00 Infrarenal abdominal aortic aneurysm (AAA) without rupture ([facility]) 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 ([facility]) I50.42 Current Outpatient Medications Medication Sig Dispense Refill OXYGEN 2L/min via nasal cannula 24 hours continous, please provide portables as well 1 Each 0 Dutasteride 0.5 MG Oral Capsule (Avodart) Take by mouth 0.5 mg in the morning. 90 Capsule 1 Latanoprost 0.005 % Ophthalmic Solution (Xalatan) Instill [...] BY MOUTH EVERY DAY 90 Tablet 3 Pantoprazole Sodium 40 MG Oral Tablet Delayed Release (Protonix) TAKE ONE TABLET BY MOUTH EVERYDAY 90 Tablet 1 Ferrous Sulfate 325 (65 Fe) MG Oral [...] minutes before a meal.. 30 Tablet 5 No current facility-administered medications for this visit. Physical Exam: BP Readings from Last 3 Encounters: 03/24/23 124/66 02/23/23 132/64 02/08/23 142/76 { Wt Readings from Last 3 Encounters: 02/01/23 92.5 kg (204 lb) 01/24/23 93.2 kg (205 lb 8 oz) 12/05/22 92.5 kg (203 lb 14.4 oz) Vital signs: Blood pressure 124/66, pulse 80, SpO2 96 %. General: alert, no distress, well nourished and well developed Neuro: alert & oriented x 1 with fluent speech Heart: regular rate & rhythm and no murmur Lungs: no chest wall tenderness, lungs clear to auscultation, no wheeze, no rales, no rhonchi Abdomen: abdomen soft, non-tender, normal bowel sounds and no rebound or guarding Ext: Normal extremities without edema Recent Results: Component Latest Ref Rng 01/25/2023 03/22/2023 WBC 4.00 - 10.80 K/uL 4.57 4.76 Neutrophils % 40.0 - 75.0 % 41.2 37.4 (L) Lymphocytes % 18.0 - 42.0 % 36.5 38.2 Monocytes % 1.0 - 11.0 % 11.4 (H) 12.0 (H) Eosinophils % 0.0 - 6.0 % 9.8 (H) 11.6 (H) Basophils % 0.0 - 2.0 % 0.7 0.6 Immature Granulocytes % 0.0 - 2.0 % 0.4 0.2 Absolute Neutrophils 1.80 - 7.70 K/uL 1.88 1.78 (L) Absolute Lymphocytes 1.00 - 4.80 K/ul 1.67 1.82 Absolute Monocytes 0.00 - 1.10 K/uL 0.52 0.57 Absolute Eosinophils 0.00 - 0.70 K/uL 0.45 0.55 Absolute Basophils 0.00 - 0.20 K/uL 0.03 0.03 Absolute Immature Granulocytes 0.00 - 0.20 K/uL 0.02 0.01 WBC 4.00 - 10.80 K/uL 4.57 4.76 RBC 4.50 - 5.25 M/uL 3.17 2.49 HGB 14.0 - 16.8 g/dL 10.2 (L) 8.1 (L) HCT 40.0 - 48.4 % 33.6 (L) 27.6 (L) MCV 82.0 - 99.5 fL 106.0 110.8 MCH 27.0 - 34.0 pg 32.2 32.5 MCHC 32.0 - 36.0 g/dL 30.4 29.3 RDW 11.5 - 15.5 % 15.7 16.7 PLT 140 - 400 K/uL 229 262 MPV 6.6 - 11.1 fL 10.0 9.5 nRBCs <=0 /100 WBCs 0 0 Hemoglobin A1C 4.0 - 5.6 % 9.3 (H) Estimated Average Glucose <126 mg/dL 220 (H) Ferritin 30 - 400 ng/mL 60 (H) High (L) Low See top of note for assessment/plan Scheduled appointments in the next 60 days: Future Appointments-next 60 days Date/Time Provider Specialty Dept Phone 03/24/2023 12:30 PM [facility] [phone] 04/05/2023 9:10 AM [facility] Draw [facility] Laboratory Processing [phone] 04/24/2023 2:30 PM [facility] [phone] 07/11/2023 1:00 PM (Arrive by 12:45 PM) [facility] Cardiology [phone] 07/17/2023 3:00 PM (Arrive by 2:45 PM) Pilar Joseph PA-C Dermatology [phone] 07/26/2023 3:40 PM (Arrive by 3:25 PM) Muriel Marrero MD Family Medicine [phone] 08/29/2023 3:30 PM (Arrive by 3:15 PM) Chris Choudhury PA-C Cardiology [phone] [facility], [address] [address] documented in this encounter Miscellaneous Notes * ACP (Advance Care Planning) - Brennen aKy PA-C - 03/24/2023 1:10 PM EDT Images from the original note were not included. Patient-centered Communication 03/24/2023 The patient/surrogate voluntarily agreed to participate in [...] Recent Value Past ~10 years 03/24/2023 13:11 Additional Comments Additional Comments: Goals of care remain unchanged. Reviewed with spouse. 03/24/2023 Goals of care remain unchanged. Reviewed with spouse. Discerning What Matters Most to the Patient: Synopsis [employer] Most Recent Value Past ~10 years 10/30/2022 20:50 Discerning What Matters Most to the Patient In their own words, patient's UNDERSTANDING of their illness is: patient with dementia and unaware of illness 10/30/2022 patient with dementia and unaware of illness Was PROGNOSIS discussed? No 10/30/2022 No Prognosis was not discussed due to: Other, please comment Patient with dementia. Spouse preferred not to discuss illness 10/30/2022 Other, please comment Patient with dementia. Spouse preferred not to discuss illness The patient considers these as 'UNACCEPTABLE OUTCOMES': "Being a vegetable" (define below) 05/30/2022 Source: Content from [facility] [employer] [facility] Aligning Care With What Matters Most: [place] [employer] Most Recent Value Past ~10 years 03/24/2023 13:11 Aligning Care With What Matters Most In their own words, the patient's understanding of their prognosis: does not contribute due to dementia 03/24/2023 does not contribute due to dementia Interventions/Choices: CPR;Intubation/mechanical ventilation;Hospice;Blood transfusion 12/30/2022 Rationale for Decisions [employer]opsis [employer] Most Recent Value Past ~10 years 12/30/2022 13:43 Hospice Their goals for Hospice treatment are: maintain quality of life 12/30/2022 maintain quality of life Source: Content from [employer] [facility] 30 minutes spent in direct [id number] discussion today, Brennen Kay PA-C documented in this encounter Plan of Treatment Upcoming Encounters Date Type Specialty Care Team Description 04/05/2023 Laboratory Laboratory Processing [facility], [facility] Draw [address] [place] [address] 04/24/2023 Home Visit [facility] Kami Rosado, SANKET [address] [place] [address] 07/11/2023 [facility] [address] [place] [address] 07/17/2023 Office Visit Dermatology Pilar Joseph PA-C [address] [place] [address] [place] [address] 07/26/2023 Office Visit Family Medicine Muriel Moreira MD [address] [place] [address] [place] [address] 08/29/2023 Office Visit Cardiology Chris Choudhury PA-C [address] [place] [address] Health Maintenance Due Date Last Done Comments [...] COPD 09/06/2023 09/06/2022 CKD PHOS USE SMARTSET 82946 09/07/2023 12/0 04/2022, 09/05/2022, 01/14/2022, Additional history exists Depression Screening, Annual for Pts 12 and Over 01/25/2024 01/24/2023 DIG LEVEL FOR MEDICATION MONITORING YEARLY 01/26/2024 01/25/2023, 04/17/2021, 03/09/2020, Additional history exists Albumin/Creatinine Ratio 01/27/2024 023, 01/14/2022, 08/14/2017, Additional history exists CKD HGB USE SMARTSET 14821 03/22/202403/22, 03/22/2023, 03/08/2023, Additional history exists Zoster [...] this encounter Medical Devices Implanted Type Area Process Control Board Operator Device Identifier Shelf Expiration Date Model / Serial / Lot Screw T2 Alpha Lock 5x47.5mm - [id number] Implanted:Qty: 1 on 09/06/2022 by Sean Silva MD at [facility] Left: Leg Upper RICHELLE : TRAUMA 06/01/2032 [id number] / / [id number] documented as of this encounter Visit Diagnoses Diagnosis Palliative care encounter- Primary Encounter for palliative care Advanced care planning/counseling discussion Other specified counseling Multiple myeloma not having achieved remission (HCC) Multiple myeloma, without mention of having achieved remission 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) Type 2 diabetes mellitus with stage 3a chronic kidney disease, without long-term current use of insulin (HCC) documented in this encounter Advance Directives Documents on File Type Date Recorded Patient Documentation Liaison Expl anation POLST 10/17/2022 [place] DERS FOR LIFE-SUSTAINING TREATMENT POLST 09/10/2022 [place] DERS FOR LIFE-SUSTAINING TREATMENT Latest [...] Agen t (per Health Care Power of Veneer Sheet Repairer document) Reji Tello Dotts Adult Child First Alterna te Health Care Agent (per Health Care Power of Veneer Sheet Repairer document) Bowen Tello Adult Child First Alternate Health Care Agent (per Health Care Power of Veneer Sheet Repairer document) Care Teams Hand Alterations Seamstress Relationship Specialty Start Date End Date Muriel Moreira MD [address] [place] [address] [place] [phone] PCP - General Family Medicine 06/26/18 documented as of this encounter
--- OUTSIDE RECORDS SUMMARY | 2023-08-22 04:01 | External Medical Summary ---
Author Name Unknown Address Unknown Organization [id number]:[facility] [place] - [address] [facility] Alejandra [place] [address] Laboratory Report Ordering Provider Test Date Status DEB BULL 03/08/2023 08:18:00 Final Observation Date Value Abnormality Reference (Units ) Status SYNC LEUKOCYTES IN BLOOD BY AUTOMATED COUNT 03/08/2023 08:18:00 4.90 4.00-10.80 (K/uL) Final Segs 03/08/2023 08:18:00 42.7 40.0-75.0 (%) Final Lymphs % 03/08/2023 08:18:00 33.1 18.0-42.0 (%) Final Monos 03/08/2023 08:18:00 12.0 Above high normal 1.0-11.0 (%) Final Eosinophils 03/08/2023 08:18:00 11.0 Above high normal 0.0-6.0 (%) Final Basos 03/08/2023 08:18:00 0.6 0.0-2.0 (%) Final Immature Granulocyte, Percent 03/08/2023 08:18:00 0.6 0.0-2.0 (%) Final Absolute Segs 03/08/2023 08:18:00 2.09 1.80-7.70 (K/uL) Final Lymphs, absolute 03/08/2023 08:18:00 1.62 1.00-4.80 (K/ul) Final Monos, Abs 03/08/2023 08:18:00 0.59 0.00-1.10 (K/uL) Final Eos, Abs 03/08/2023 08:18:00 0.54 0.00-0.70 (K/uL) Final Basos, Abs 03/08/2023 08:18:00 0.03 0.00-0.20 (K/uL) Final Immature Granulocytes, Number 03/08/2023 08:18:00 0.03 0.00-0.20 (K/uL) Final Performing Location [facility] [place] - [facility] [address]ier[address]. [facility] [id number]
--- OUTSIDE RECORDS SUMMARY | 2023-08-22 04:02 | External Medical Summary | Summary of Care ---
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; Atherosclerosis of mes[place] grande coronary artery of mes[place] grande heart without angina pectoris; Nonrheumatic aortic valve insufficiency; Dyslipidemia, goal LDL below 70 Allergies Active Allergy Reactions Severity Noted Date Comments James Inhibitors 09/10/2002 cough on prinivil Hydrocodone 09/05/2022 Family states AMS change when taken Prednisone 05/26/2011 Blisters in throat Sulfa Antibiotics 03/19/2001 dysurea documented as of this encounter (statuses as of 02/23/2023) Medications Medication Sig Dispensed Refills Start Date End Date Status OXYGENIndications:Hy poxia,Acute systolic CHF (congestive heart failure) (HCC) 2L/min via nasal cannula 24 hours continous, please provide portables as well 1 Each 0 4 Active Digoxin 125 MCG Oral Tablet (Lanoxin) TAKE ONE TABLET 3 days per week 36 Tablet 3 2 Active Dutasteride 0.5 MG Oral Capsule (Avodart)Indications :BPH with obstruction/lower urinary tract symptoms Take by mouth 0.5 mg in the morning. 90 Capsule 1 2 Active Latanoprost 0.005 % Ophthalmic Solution (Xalatan) [...] per day 34 Tablet 11 2 Active Fluticasone-Salmeter ol 250-50 MCG/ACT Inhalation Aerosol Powder Breath Activated (Advair Diskus) Inhale by mouth 1 Puff in the morning AND 1 Puff before bedtime. 180 Each 0 2 Active Multivitamin Adult Oral Tablet Take [...] the morning. 90 Tablet 3 2 Active Methenamine Hippurate 1 GM Oral Tablet Take 1 Tablet by mouth in the morning and 1 Tablet before bedtime. 0 2 Active Metoprolol Succinate ER 50 MG Oral Tablet Extended Release 24 Hour (toPROL XL)Indications:Heart failure, systolic, due to CAD (HCC),Tachy-lorna syndrome (HCC) TAKE ONE TABLET BY MOUTH EVERY DAY 90 Tablet 3 2 Active Potassium Chloride Emma ER 20 MEQ Oral Tablet Extended ReleaseIndications:H ypokalemia TAKE 1 TABLET BY MOUTH EVERY MORNING 90 Tablet 1 2 Active Pantoprazole Sodium 40 MG Oral Tablet Delayed Release (Protonix)Indication s:GERD (gastroesophageal reflux disease) TAKE ONE TABLET BY MOUTH EVERY DAY 90 Tablet 1 2 Active Ferrous Sulfate 325 (65 Fe) [...] 75 MG Oral Tablet (pLAVix)Indications: Atherosclerosis of mesa grande coronary artery of mes[place] grande heart without angina pectoris TAKE ONE TABLET BY MOUTH IN THE MORNING 90 Tablet 3 3 Active metFORMIN HCl ER 500 MG Oral Tablet Extended Release 24 Hour (Glucophage XR)Indications:Type 2 diabetes mellitus with hemoglobin A1c goal of less than 7.5% (HCC) Take 2 Tablets by mouth in the morning. 180 Tablet 1 3 04/29/20 23 Active Furosemide 40 MG Oral Tablet (Lasix) Take 1 Tablet by mouth in the morning. 100 Tablet 3 3 Active Furosemide 40 MG Oral Tablet (Lasix)Indications:L ongstanding persistent atrial fibrillation (HCC) One tablet by mouth daily on Monday, Monday, and Monday. Two tablet by mouth on Monday, Monday and Monday 135 Tablet 3 2 02/24/20 23 Discontinued documented as of this encounter (statuses as of 02/23/2023) Active Problems Problem Noted Date Chronic combined [...] CORONARY ATHEROSCLEROSIS OF UNSPECIFIED TYPE OF VESSEL, UTE OR GRAFT Last Assessment & Plan: Stable. 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 documented as of this encounter (statuses as of 02/23/2023) Resolved Problems Problem Noted Date Resolved Date [...] infection without hematuria 202101/24/2023 Overview: Xavier to [facility] 04/20-04/29 urosepsis multi drug resistant E. Coli [...] ek & Lt. leg ; Rt. confucianism 1007/18/2002 07/15/2015 Dyslipidemia, goal to be determined 09/10/2009 [...] as of this encounter (statuses as of 02/23/2023) Immunizations Name Administration Dates Next Due COVID-19 mRNA, LNP-s, No Pre serve, 2-Dose Series (Moderna) 08/24/2021,12/07/2020,11/09/2020 Covid-19, Mrna, Lnp-s, Pf, B ivalent Booster, 30 Mcg, IM, 12 yrs and above [...] Sign Reading Time Taken Comments Blood Pressure 132/64 02/23/2023 1:24 PM EDT Pulse 76 02/23/2023 1:24 PM EDT Temperature - - Respiratory Rate 18 02/23/2023 1:24 PM EDT Oxygen Saturation - - Inhaled Oxygen Concentration - - Weight - [...] as of this encounter Progress Notes * Chris Choudhury PA-C - 02/23/2023 1:32 PM EDT History of Present Illness: Marshall Tello . Is a 87-year-old male who returns today for cardiology follow-up. Accompanied by and son Bowen. Last visit to this office was with Dr. Sanford in October. Amlodipine discontinued at that time. Patient hard of hearing. No complaints or concerns. Sonnotes a fall on the porch the other week ( believes it was a couple weeks ago) undefined. Short-term memory issues noted. Appetite is good. Sleeps well at night and throughout the day. No chest pain. No palpitations. No new or worsening shortness of breath. No orthopnea, PND, or peripheral edema. Denies lightheadedness or dizziness with positional change. No syncope. No melena or hematochezia. Problem List: 1. Atherosclerotic coronary artery disease status post coronary bypass grafting July 2000 receiving KAUR graft to LAD, saphenous vein graft sequentially from the obtuse marginal to diagonal. 2. Acute coronary intervention July 2014 with stenting of the proximal circumflex. 3. Diffuse cardiomyopathy, mixed etiology with improvement, resolution. 4. Chronic atrial fibrillation with anticoagulation contraindications. 5. Status post dual-chamber pacemaker with subsequent later upgrade to biventricular device in March2015 generator exchange April 21, 2021 [employer]tr[employer], [employer] MRI QUAD CRTD 6. Moderate aortic insufficiency. 7. Compensated class 2 heart failure. 8. Moderate asthmatic lung disease with nocturnal oxygen supplementation 9. Past gross hematuria, status post prostatic ablation negative cystoscopy August 2018 10. Multiple myeloma with pathological left femur fracture, conservative management Complete Review of Systems is as stated above, negative, or noncontributory. 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 Longstanding persistent atrial fibrillation ([facility]) I48.11 Ischemic cardiomyopathy I25.5 Aortic valve insufficiency I35.1 Automatic implantable cardioverter-defibrillator in situ Z95.810 Encounter for examination for normal comparison and control in clinical research program Z00.6 Gastroesophageal reflux disease with esophagitis K21.00 Type 2 diabetes mellitus with diabetic nephropathy, without long-term current use of insulin ([facility]) E11.21 Sensorineural hearing loss (SNHL) of both ears H90.3 Hx of nonmelanoma skin cancer Z85.828 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, R31.9 Chronic atrial fibrillation ([facility]) I48.20 Primary open-angle glaucoma, left eye, mild stage H40.1121 Skin lesion L98.9 DISH (diffuse idiopathic skeletal hyperostosis) M48.10 Chronic obstructive pulmonary disease ([facility]) J44.9 Other specified peripheral vascular diseases ([facility]) I73.89 Type 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 (HCC) E11.51 DM type 2 with diabetic peripheral neuropathy ([facility]) E11.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 ([facility]) I13.0, I50.42, N18.31 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 ([facility]) N18.31, D63.1 Iron deficiency anemia D50.9 Type 2 diabetes mellitus with stage 3a chronic kidney disease, without long- term current use ofinsulin ([facility]) E11.22, N18.31 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[facility]) G30.1, F02.80 Multiple myeloma ([facility]) C90.00 Infrarenal abdominal aortic aneurysm (AAA) without rupture ([facility]) 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 ([facility]) I50.42 Review of patient's allergies indicates: Allergen Reactions James Inhibitors cough on prinivil Hydrocodone Family states AMS change when taken Prednisone Blisters in throat Sulfa Antibiotics dysurea Current Outpatient Medications Medication Sig Dispense Refill OXYGEN 2L/min via nasal cannula 24 hours continous, please provide portables as well 1 Each 0 Furosemide 40 MG Oral Tablet (Lasix) One tablet by mouth daily on Monday, Monday, andMonday. Two tablet by mouth on Monday, Monday and Monday 135 Tablet 3 Digoxin 125 MCG Oral Tablet (Lanoxin) TAKE ONE TABLET 3 days per week 36 Tablet 3 Dutasteride 0.5 MG Oral Capsule [...] BY MOUTH EVERY DAY 90 Tablet 3 Potassium Chloride Emma ER 20 MEQ Oral Tablet Extended Release TAKE 1 TABLET BY MOUTH EVERY MORNING 90 Tablet 1 Pantoprazole Sodium 40 MG Oral Tablet [...] MOUTH IN THE MORNING 90 Tablet 3 metFORMIN HCl ER 500 MG Oral Tablet Extended Release 24 Hour (Glucophage XR) Take 2 Tablets by mouth in the morning. 180 Tablet 1 No current facility-administered medications for this visit. OBJECTIVE/PHYSICAL EXAMINATION: BP 132/64 | Pulse 76 | Resp 18 Examined in a chair BP on my examination 114/50 General: No acute distress. Hard of hearing. Head: Normocephalic, no masses, lesions, tenderness or abnormalities Eyes: Sclera clear Neck: No JVD. Lungs: Clear to auscultation Cardiac Exam: - regular rate paced rhythm, grade 2/6 systolic no diastolic murmur no S3 gallop no rub with positional change Abdomen: +BS. Soft. No organomegaly. Extremities: No edema, no cyanosis Pulses intact 2+/4 Neuro: grossly normal exam Data: Echocardiogram June 30, 2020: The rhythm during the transthoracic echo examination was atrial fibrillation with controlled ventriculr response. The qualitative LV ejection fraction is 50-54% (normal). The left atrium is severely enlarged (>48 ml/m^2,). Mild aortic valve sclerosis is present. Moderate to severe aortic insufficiency. Mild mitral regurgitation is present. Mild tricuspid regurgitation is present. The aortic root is mildly enlarged. December 27, 2022 device interrogation. Appropriate function. Remaining longevity: 7.3 years. Mode: VVIR. Lower rate 70 bpm. Chronic atrial fibrillation. BiV paced 99.5%. Optivol below threshold. Potassium 3.5 on September 20, 2022. ASSESSMENT: 1. Stable atherosclerotic coronary artery disease 2. Diffuse cardiomyopathy, resolved, compensated. 3. Chronic atrial fibrillation, with anticoagulation contraindications. 4. Status post dual-chamber pacemaker with subsequent later upgrade to biventricular device in March2015 generator exchange April 21, 2021 [employer]tr[employer], [employer] MRI QUAD CRTD 5. Moderate aortic insufficiency. 6. Moderate asthmatic lung disease with nocturnal oxygen supplementation 7. Past gross hematuria, status post prostatic ablation negative cystoscopy August 2018 8. Declining mental status and progressive short term memory impairment 9. Multiple myeloma, managed conservatively 10. Iron deficiency 11. Chronic renal insufficiency RECOMMENDATIONS/PLAN: Decrease furosemide dosing slightly, discontinuing the additional 40 mg on Mondays, Wednesdays, and Fridays. He will now be taking 40 mg every day of the week. Continue device interrogations through the [facility]. Cardiology follow-up in 4-6 months or as needed. ER with emergencies. Chris Choudhury PA-C Department of Cardiology documented in this encounter Nursing Notes * Danika Adkins LPN - 02/23/2023 1:24 PM EDT Examination Room: 4 Name: Marshall Tello . Date of : (1935) Reason for Visit: Follow up Interim Hospitalization(s): Denies Problems/Concerns: Denies Chest Pain/SOB: Denies My [facility] is a way you can talk to your provider online through e-mail. Would you like to sign up? I can activate it for you? ALREADY ACTIVE Patient was instructed to not get up on the exam table until directed and assisted by their provider; patient is to remain seated in the chair/ wheelchair/ exam table for fall prevention and safety reasons. Patient is aware to have assistance to step down off exam table with personnel. Patient voiced full comprehension of instructions. documented in this encounter Plan of Treatment Upcoming Encounters Date Type Specialty Care Team Description 03/02/2023 Home Visit [facility] at [place] Kami Rosado RN [address] [place] [phone] 03/08/2023 Laboratory Laboratory Processing [facility] Mobile Home Draw [address], [place] [id number] 03/22/2023 Laboratory Laboratory Processing [facility] Mobile Home Draw [address] [place] [address] 07/11/2023 Cardiac Studies Cardiology [facility] [address] [place] [address] 07/17/2023 Office Visit Dermatology Pilar Joseph PA-C [address] [place] [address] [place] [address] 07/26/2023 Office Visit Family Medicine Muriel Moreira MD [address] [place] [address] [place] [address] 08/29/2023 Office Visit Cardiology Chris Choudhury PA-C [address] [place] [id number] Health Maintenance Due Date Last Done Comments [...] COPD 09/06/2023 09/06/2022 CKD PHOS USE SMARTSET 65183 09/07/2023 12/0 04/2022, 09/05/2022, 01/14/2022, Additional history exists Depression Screening, Annual for Pts 12 and Over 01/25/2024 01/24/2023 DIG LEVEL FOR MEDICATION MONITORING YEARLY 01/26/2024 01/25/2023, 04/17/2021, 03/09/2020, Additional history exists Albumin/Creatinine Ratio 01/27/2024 023, 01/14/2022, 08/14/2017, Additional history exists CKD HGB USE SMARTSET 53415 02/23/202402/22, 02/22/2023, 02/08/2023, Additional history exists Zoster Vaccines Discontinued 02/10/2012 [...] this encounter Medical Devices Implanted Type Area Aquatic Ecologist Device Identifier Shelf Expiration Date Model / Serial / Lot Screw T2 Alpha Lock 5x47.5mm - [id number] Implanted:Qty: 1 on 09/06/2022 by Sean Silva MD [place] [facility] [place]: Leg Upper RICHELLE : TRAUMA 06/01/2032 [id number] / / [id number] documented as of this encounter Visit Diagnoses Diagnosis Persistent atrial fibrillation (HCC)- Primary Atrial fibrillation Ischemic cardiomyopathy Other specified forms of chronic ischemic heart disease Chronic diastolic CHF (congestive heart failure) (HCC) Chronic diastolic heart failure Tachy-lorna syndrome (HCC) Sinoatrial node dysfunction Biventricular implantable cardioverter-defibrillator in situ Atherosclerosis of mesa grande coronary artery of [place] grande heart without angina pectoris Nonrheumatic aortic valve insufficiency Aortic valve disorders Dyslipidemia, goal LDL below 70 Other and unspecified hyperlipidemia documented in this encounter Advance Directives Documents on File Type Date Recorded Patient Sewer Pipe Offbearer Expl anation POLST 10/17/2022 [place] [...] Agen t (per Health Care Power of Print Developer document) Reji Tello Dotts Adult Child First Alterna te Health Care Agent (per Health Care Power of Print Developer document) Bowen Tello Adult Child First Alternate Health Care Agent (per Health Care Power of Print Developer document) Care Teams Dimensional Inspector Relationship Specialty Start Date End Date Muriel Moreira MD [address] [place] [address] [place] [address] PCP - General Family Medicine 06/26/18 documented as of this encounter"
--- OUTSIDE RECORDS SUMMARY | 2023-08-22 04:02 | External Medical Summary | Summary of Care ---
Author Name Unknown Organization [facility] Address [address] [place] [address] Phone [phone] Care Team Providers Care Coater Helper Name Role Phone Muriel Muller MD Primary Care Prov ider Reason for Visit * Reason Comments eRx-Medication Refill Encounter Details Date Type Department Care Team Description 02/24/2023 Refill Family Medicine [address] [phone] Ana Zamora PA-C [address] [place] [address] Hypokalemia Allergies Active Allergy Reactions Severity Noted Date Comments James Inhibitors 09/10/2002 cough on prinivil Hydrocodone 09/05/2022 Family states AMS change when taken Prednisone 05/26/2011 Blisters in throat Sulfa Antibiotics 03/19/2001 dysurea documented as of this encounter (statuses as of 02/25/2023) Medications Medication Sig Dispensed Refills Start Date [...] EVERY DAY 90 Tablet 3 2 Active Pantoprazole Sodium 40 MG Oral [...] 75 MG Oral Tablet (pLAVix)Indications: Atherosclerosis of lime coronary artery of lime heart without angina pectoris TAKE ONE TABLET [...] EVERY MORNING 90 Tablet 0 3 Active Potassium Chloride Emma ER 20 MEQ Oral Tablet Extended ReleaseIndications:H ypokalemia TAKE 1 TABLET BY MOUTH EVERY MORNING 90 Tablet 1 2 02/26/20 23 Discontinued documented as of this encounter (statuses as of 02/25/2023) Active Problems Problem Noted Date Chronic combined [...] CORONARY ATHEROSCLEROSIS OF UNSPECIFIED TYPE OF VESSEL, PRAIRIE BAND OR GRAFT Last Assessment & Plan: Stable. 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 documented as of this encounter (statuses as of 02/25/2023) Resolved Problems Problem Noted Date Resolved Date [...] without hematuria 202101/24/2023 Overview: Xavier to [facility] 04/20-04/29 urosepsis multi drug resistant E. Coli [...] as of this encounter (statuses as of 02/25/2023) Immunizations Name Administration Dates Next Due COVID-19 [...] encounter Miscellaneous Notes * Telephone Encounter - [facility] - 02/25/2023 6:28 AM EDTSigned Prescriptions: Disp Refills Potassium Chloride Emma ER 20 MEQ Oral Tab*90 Tab*0 Sig: TAKE 1 TABLET BY MOUTH EVERY MORNINGAuthorizing Provider: MURIEL MULLER User: CES[facility] SHER Electronically signed by [facility] at 02/25/2023 6:28 AM EDT documented in this encounter Plan of Treatment Upcoming Encounters Date Type Specialty Care Team Description 03/02/2023 Home Visit [facility] at Home Kami Rosado RN [address] [place] [address] 03/08/2023 Laboratory Laboratory Processing [facility] Mobile Home Draw [address] [place] [address] 03/22/2023 Laboratory Laboratory Processing [facility] Mobile Home Draw [address] [place] [address] 07/11/2023 [facility] [address] [place] [address] 07/17/2023 Office Visit Dermatology Pilar Joseph PA-C [address] [place] [address] [place] [address] 07/26/2023 Office Visit Family Medicine Muriel Muller MD [address] [place] [address] [place] [address] 08/29/2023 Office Visit Cardiology Chris Choudhury PA-C [address] [place] [address] Health Maintenance Due Date Last Done Comments [...] COPD 09/06/2023 09/06/2022 CKD PHOS USE SMARTSET 41400 09/07/2023 12/0 04/2022, 09/05/2022, 01/14/2022, Additional history exists Depression Screening, Annual for Pts 12 and Over 01/25/2024 01/24/2023 DIG LEVEL FOR MEDICATION MONITORING YEARLY 01/26/2024 01/25/2023, 04/17/2021, 03/09/2020, Additional history exists Albumin/Creatinine Ratio 01/27/2024 023, 01/14/2022, 08/14/2017, Additional history exists CKD HGB USE SMARTSET 05495 02/23/202402/22, 02/22/2023, 02/08/2023, Additional history exists Zoster [...] this encounter Medical Devices Implanted Type Area Manager Pediatric Device Identifier Shelf Expiration Date Model / Serial / Lot Screw T2 Alpha Lock 5x47.5mm - [id number] Implanted:Qty: 1 on 09/06/2022 by Sean Silva MD at [facility] Left: Leg Upper RICHELLE : TRAUMA 06/01/2032 [id number] / / [id number] documented as of this encounter Visit Diagnoses Diagnosis Hypokalemia Hypopotassemia documented in this encounter Advance Directives Documents on File Type Date Recorded Patient Seed Corn Manager Production Expl anation POLST 10/17/2022 [place] DERS [...] Agen t (per Health Care Power of Ob Gyn Physician Assistant document) Reji Tello Dotts Adult Child First Alterna te Health Care Agent (per Health Care Power of Ob Gyn Physician Assistant document) Bowen Tello Adult Child First Alternate Health Care Agent (per Health Care Power of Ob Gyn Physician Assistant document) Care Teams Coater Helper Relationship Specialty Start Date End Date Muriel Muller MD [address] [place] [address] [place] [address] PCP - General Family Medicine 06/26/18 documented as of this encounter
--- OUTSIDE RECORDS SUMMARY | 2023-08-22 04:02 | External Medical Summary | Summary of Care ---
Author Name Unknown Organization [facility] Address [address] [place] [address] Phone [phone] Care Team Providers Care Research Archaeologist Name Role Phone Muriel Moreira MD Primary Care Prov ider Reason for Visit * Reason Onset Date Comments [facility]: Maintenance 03/03/2023 Encounter Details Date Type Department Care Team Description 03/03/2023 Telephone [facility] [address] [facility] [address] Services, Scheduling [address] [place] [address] [facility]: Maintenance Allergies Active Allergy Reactions Severity Noted Date Comments James Inhibitors 09/10/2002 cough on prinivil Hydrocodone 09/05/2022 Family states AMS change when taken Prednisone 05/26/2011 Blisters in throat Sulfa Antibiotics 03/19/2001 dysurea documented as of this encounter (statuses as of 03/03/2023) Medications Medication Sig Dispensed Refills Start Date End Date Status OXYGENIndications:Hyp oxia,Acute systolic CHF (congestive heart failure) (HCC) 2L/min via nasal cannula 24 hours continous, please provide portables as well 1 Each 0 07/30/2014 Active Digoxin 125 MCG Oral Tablet (Lanoxin) TAKE ONE TABLET 3 days per week 36 Tablet 3 05/13/2022 Active Dutasteride 0.5 MG Oral Capsule (Avodart)Indications: [...] 75 MG Oral Tablet (pLAVix)Indications:A therosclerosis of [place] coronary artery of [place] heart without angina pectoris TAKE ONE TABLET [...] EVERY MORNING 90 Tablet 0 02/25/2023 Active documented as of this encounter (statuses as of 03/03/2023) Active Problems Problem Noted Date Chronic combined [...] CORONARY ATHEROSCLEROSIS OF UNSPECIFIED TYPE OF VESSEL, [place] OR GRAFT Last Assessment & Plan: Stable. 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 documented as of this encounter (statuses as of 03/03/2023) Resolved Problems Problem Noted Date Resolved Date [...] without hematuria 202101/24/2023 Overview: Xavier to [facility] 04/20-04/29 urosepsis multi drug resistant E. Coli [...] glenn ek & Lt. leg 4/98; Rt. rastafari 07/0207/18/2002 07/15/2015 Dyslipidemia, goal to be determined [...] as of this encounter (statuses as of 03/03/2023) Immunizations Name Administration Dates Next Due COVID-19 [...] * Telephone Encounter - CASTRO Senior - 03/03/2023 11:56 AM EDT Remedios is aware that on 03/24/23 at 1230/1pm Brennen Conley will see patient instead of Ana Maria. SANKET Rosado rescheduled for 04/24/23 CASTRO Senior documented in this encounter Plan of Treatment Upcoming Encounters Date Type Specialty Care Team Description 03/08/2023 Laboratory Laboratory Processing [facility] Draw [address] [place] [address] 03/22/2023 Laboratory Laboratory Processing [facility] Draw [address] [place] [address] 03/24/2023 Home Visit [facility] Brennen Kay PA-C [address] [place] [address] 04/24/2023 Home Visit [facility] Kami Rosado RN [address] [place] [address] 07/11/2023 [facility] [address] [place] [address] 07/17/2023 Office Visit Dermatology Pilar Joseph PA-C [address] [place] [address] [place] [address] 07/26/2023 Office Visit Family Medicine Muriel Moreira MD [address] [place] [address] [place] [address] 08/29/2023 Office Visit Cardiology Chris Choudhury PA-C [address] [place] [address] Health Maintenance Due Date Last Done Comments [...] COPD 09/06/2023 09/06/2022 CKD PHOS USE SMARTSET 34328 09/07/2023 12/0 04/2022, 09/05/2022, 01/14/2022, Additional history exists Depression Screening, Annual for Pts 12 and Over 01/25/2024 01/24/2023 DIG LEVEL FOR MEDICATION MONITORING YEARLY 01/26/2024 01/25/2023, 04/17/2021, 03/09/2020, Additional history exists Albumin/Creatinine Ratio 01/27/202401/26/2 023, 01/14/2022, 08/14/2017, Additional history exists CKD HGB USE SMARTSET 44325 02/23/202402/22, 02/22/2023, 02/08/2023, Additional history exists Zoster [...] this encounter Medical Devices Implanted Type Area Dike Supervisor Device Identifier Shelf Expiration Date Model / Serial / Lot Screw T2 Alpha Lock 5x47.5mm - [id number] Implanted:Qty: 1 on 09/06/2022 by Sean Silva MD at [facility] Left: Leg Upper RICHELLE : TRAUMA 06/01/2032 [id number] / / [id number] documented as of this encounter Advance Directives Documents on File Type Date Recorded Patient Repair Operator Expl anation POLST 10/17/2022 [place] [...] Agen t (per Health Care Power of Information Technology Analyst document) Reji Tello Dotts Adult Child First Alterna te Health Care Agent (per Health Care Power of Information Technology Analyst document) Bowen Tello Adult Child First Alternate Health Care Agent (per Health Care Power of Information Technology Analyst document) Care Teams Research Archaeologist Relationship Specialty Start Date End Date Muriel Moreira MD [address] [place] [address] [place] [address] PCP - General Family Medicine 06/26/18 documented as of this encounter
--- OUTSIDE RECORDS SUMMARY | 2023-08-22 04:02 | External Medical Summary | Summary of Care ---
Author Name Unknown Organization [facility] Address [address] [place] [address] Phone [phone] Care Team Providers Care Presentation Manager Name Role Phone Muriel Moreira MD Primary Care Prov ider Encounter Details Date Type Department Care Team Description 01/29/2023 Telephone Family Medicine [facility] [address] [place] [address] Muriel Moreira MD [address] [place] [address] [place] [address] Allergies Active Allergy Reactions Severity Noted Date Comments James Inhibitors 09/10/2002 cough on prinivil Hydrocodone 09/05/2022 Family states AMS change when taken Prednisone 05/26/2011 Blisters in throat Sulfa Antibiotics 03/19/2001 dysurea documented as of this encounter (statuses as of 02/24/2023) Medications Medication Sig Dispensed Refills Start Date [...] 75 MG Oral Tablet (pLAVix)Indications: Atherosclerosis of [place] coronary artery of [place] heart without angina pectoris TAKE ONE TABLET BY MOUTH IN THE MORNING 90 Tablet 3 3 Active metFORMIN HCl ER 500 MG Oral Tablet Extended Release 24 Hour (Glucophage XR)Indications:Type 2 diabetes mellitus with hemoglobin A1c goal of less than 7.5% (HCC) Take 2 Tablets by mouth in the morning. 180 Tablet 1 3 04/29/20 23 Active Furosemide 40 MG Oral Tablet (Lasix)Indications:L ongstanding persistent atrial fibrillation (HCC) One tablet by mouth daily on Monday, Monday, and Monday. Two tablet by mouth on Monday, Monday and Monday 135 Tablet 3 2 02/24/20 23 Discontinued documented as of this encounter (statuses as of 02/24/2023) Active Problems Problem Noted Date Chronic combined [...] ATHEROSCLEROSIS OF UNSPECIFIED TYPE OF VESSEL, [place] OR GRAFT Last Assessment & Plan: Stable. 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 Last evaluated by Dr. Sanford. Patient with chronic atrial fibrillation. Device interrogation on December 27, 2022 demonstrated controlled average ventricular rates both during the day andnight. Digoxin dosing of 125 mcg only on Mondays, Wednesdays, and Fridays is appropriate. Patient with short- term memory deficits. Please verify digoxin dosing with family and pharmacy. Would not make adjustments to dosing at this time. Chris Choudhury PA-C Department of Cardiology * Telephone Encounter - Muriel Marrero MD - 01/29/2023 11:17 AM EDT A1C 9.3. Recommend restarting metformin. MyG sent. Cardiology: His Dig level is low, but he is asymptomatic. Can you follow up? documented in this encounter Plan of Treatment Upcoming Encounters Date Type Specialty Care Team Description 03/02/2023 Home Visit [facility] Kami Rosado, RN [address] [place] [address] 03/08/2023 Laboratory Laboratory Processing [facility] Draw [address] [place] [address] 03/22/2023 Laboratory Laboratory Processing [facility] Draw [address] [place] [address] 07/11/2023 Cardiac Studies Cardiology [facility] [address] [place] [address] 07/17/2023 Office Visit Dermatology Pilar Joseph PA-C [address] [place] [address] [place] [address] 07/26/2023 Office Visit Family Medicine Muriel Moreira MD [address] [place] [address] [place] [address] 08/29/2023 Office Visit Cardiology Chris Choudhury PA-C [address] [place] [address] Scheduled Orders Name Type Priority Associated Diagnoses Orde r Schedule HEMOGLOBIN A1C Lab Routine Type 2 diabetes mellitus with hemoglobin A1c goal of less than 7.5% ([facility]) Expected: 04/30/2023 (Approximate), Expires: 07/31/2023 Health Maintenance Due Date Last Done Comments [...] COPD 09/06/2023 09/06/2022 CKD PHOS USE SMARTSET 93872 09/07/2023 12/0 04/2022, 09/05/2022, 01/14/2022, Additional history exists Depression Screening, Annual for Pts 12 and Over 01/25/2024 01/24/2023 DIG LEVEL FOR MEDICATION MONITORING YEARLY 01/26/2024 01/25/2023, 04/17/2021, 03/09/2020, Additional history exists Albumin/Creatinine Ratio 01/27/2024 023, 01/14/2022, 08/14/2017, Additional history exists CKD HGB USE SMARTSET 58663 02/23/202402/22, 02/22/2023, 02/08/2023, Additional history exists Zoster [...] this encounter Medical Devices Implanted Type Area Housing Management Representative Device Identifier Shelf Expiration Date Model / Serial / Lot Screw T2 Alpha Lock 5x47.5mm - [id number] Implanted:Qty: 1 on 09/06/2022 by Sean Silva MD at [facility] Left: Leg Upper RICHELLE : TRAUMA 06/01/2032 [id number] / / [id number] documented as of this encounter Visit Diagnoses Diagnosis Type 2 diabetes mellitus with hemoglobin A1c goal of less than 7.5% ([facility])- Primary documented in this encounter Advance Directives Documents on File Type Date Recorded Patient Lens And Frames Prescription Clerk Expl anation POLST 10/17/2022 [place] OR DERS [...] Agen t (per Health Care Power of Tobacco Stemmer Machine document) Reji Tello Dotts Adult Child First Alterna te Health Care Agent (per Health Care Power of Tobacco Stemmer Machine document) Bowen Tello Adult Child First Alternate Health Care Agent (per Health Care Power of Tobacco Stemmer Machine document) Care Teams Presentation Manager Relationship Specialty Start Date End Date Muriel Moreira MD [address] [place] [address] [place] [address] PCP - General Family Medicine 06/26/18 documented as of this encounter
--- OUTSIDE RECORDS SUMMARY | 2023-08-22 04:02 | External Medical Summary | Summary of Care ---
Author Name Unknown Organization [facility] Address [address] [place] [address] Phone [phone] Care Team Providers Care Area Secretary Name Role Phone Muriel Moreira MD Primary Care Prov ider Reason for Visit * Reason Onset Date Comments [facility]: Maintenance 03/01/2023 Encounter Details Date Type Department Care Team Description 03/01/2023 Telephone [facility], [facility] [address] [facility], Scheduling [address] [place] [address] [facility]: Maintenance Allergies Active Allergy Reactions Severity Noted Date Comments James Inhibitors 09/10/2002 cough on prinivil Hydrocodone 09/05/2022 Family states AMS change when taken Prednisone 05/26/2011 Blisters in throat Sulfa Antibiotics 03/19/2001 dysurea documented as of this encounter (statuses as of 03/01/2023) Medications Medication Sig Dispensed Refills Start Date [...] as of this encounter (statuses as of 03/01/2023) Active Problems Problem Noted Date Chronic combined [...] CORONARY ATHEROSCLEROSIS OF UNSPECIFIED TYPE OF VESSEL, [place] OR GRAFT Last Assessment & Plan: Stable. 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 leg 4/98; Rt. roman catholic 07/0207/18/2002 07/15/2015 Dyslipidemia, goal [...] as of this encounter (statuses as of 03/01/2023) Immunizations Name Administration Dates Next Due COVID-19 [...] * Telephone Encounter - CASTRO Senior - 03/01/2023 10:32 AM EDT Remedios is aware of visit change with Kami Rosado RN on 03/02/23 to 03/24/23 at 230pm CASTRO Senior documented in this encounter Plan of Treatment Upcoming Encounters Date Type Specialty Care Team Description 03/08/2023 Laboratory Laboratory Processing [facility] Home Draw [address] [place] [address] 03/22/2023 Laboratory Laboratory Processing [facility] Draw [address] [place] [address] 03/24/2023 Home Visit [facility] Kami Rosado RN [address] [place] [address] 07/11/2023 Cardiac Studies Cardiology [facility], Pacer [facility] [address] [place] [address] 07/17/2023 Office Visit Dermatology Pilar Joseph PA-C [address] [place] [address] [place] [address] 07/26/2023 Office Visit Family Medicine Emmanuel Marrero, Muriel Menon MD [address] [place] [address] [place] [address] 08/29/2023 Office Visit Cardiology Chris Choudhury PA-C [address] [place] [address] Health Maintenance Due Date Last Done Comments Alpha-1 Antitrypsin 1953 DIABETES-EYE EXAM 10/28/2022 10/28/2021, , 10/30/2019, Additional history exists DTaP,Tdap,and Td Vaccines (2 - Td or Tdap) 01/11/2023 01/11/2013, 04/01/2003, 04/01/2003 DIABETES-FOOT EXAM 01/14/2023 01/14/2022, 0 12/24/2020, 03/09/2020, Additional history exists HbA1c 07/27/2023 01/25/2023, 12/03/2022, 01/14/2022, Additional history exists O2 ASSESSMENT COMPLETED IN PAST YEAR FOR COPD 09/06/2023 09/06/2022 CKD PHOS USE SMARTSET 63343 09/07/2023 12/0 04/2022, 09/05/2022, 01/14/2022, Additional history exists Depression Screening, Annual for Pts 12 and Over 01/25/2024 01/24/2023 DIG LEVEL FOR MEDICATION MONITORING YEARLY 01/26/2024 01/25/2023, 04/17/2021, 03/09/2020, Additional history exists Albumin/Creatinine Ratio 01/27/2024 023, 01/14/2022, 08/14/2017, Additional history exists CKD HGB USE SMARTSET 10428 02/23/202402/22, 02/22/2023, 02/08/2023, Additional history exists Zoster [...] this encounter Medical Devices Implanted Type Area Wire Rope Sales Representative Device Identifier Shelf Expiration Date Model / Serial / Lot Screw T2 Alpha Lock 5x47.5mm - [id number] Implanted:Qty: 1 on 09/06/2022 by Sean Silva MD at [facility] Left: Leg Upper RICHELLE : TRAUMA 06/01/2032 [id number] / / [id number] documented as of this encounter Advance Directives Documents on File Type Date Recorded Patient Insulator Technician Expl anation POLST 10/17/2022 [place] DERS [...] t (per Health Care Power of Registered Health Nurse document) Reji Palaciosmel Neil Adult Child First Alterna te Health Care Agent (per Health Care Power of Registered Health Nurse document) Bowen Palaciosmel Adult Child First Alternate Health Care Agent (per Health Care Power of Registered Health Nurse document) Care Teams Area Secretary Relationship Specialty Start Date End Date Muriel Moreira MD [address] [place] [address] [place] [address] PCP - General Family Medicine 06/26/18 documented as of this encounter
--- OUTSIDE RECORDS SUMMARY | 2023-08-22 04:03 | External Medical Summary | Summary of Care ---
Author Name Unknown Organization [facility] Address [address] [place] [address] Phone [phone] Care Team Providers Care Necktie Maker Name Role Phone Muriel Moreira MD Primary Care Prov ider Reason for Visit * Reason Onset Date Comments Test Results Lab 02/23/2023 Encounter Details Date Type Department Care Team Description 02/23/2023 Telephone Hematology/Oncology [facility] [address] [place] [address] Pietro Sykes MD [address] [place] [address] Test Results Lab Allergies Active Allergy Reactions [...] as well 1 Each 0 07/30/2014 Active Furosemide 40 MG Oral Tablet (Lasix)Indications:Lo ngstanding persistent atrial fibrillation (HCC) One tablet by mouth daily on Monday, Monday, and Monday. Two tablet by mouth on Monday, Monday and Monday 135 Tablet 3 05/13/2022 Active Digoxin 125 MCG Oral Tablet (Lanoxin) [...] EVERY DAY 90 Tablet 3 06/28/2022 Active Potassium Chloride Emma ER 20 MEQ Oral Tablet Extended ReleaseIndications:Hy pokalemia TAKE 1 TABLET BY MOUTH EVERY MORNING 90 Tablet 1 07/08/2022 Active Pantoprazole Sodium 40 MG Oral Tablet [...] 75 MG Oral Tablet (pLAVix)Indications:A therosclerosis of [place] coronary artery of [place] heart without angina pectoris TAKE ONE TABLET BY MOUTH IN THE MORNING 90 Tablet 3 12/23/2022 Active metFORMIN HCl ER 500 MG Oral Tablet Extended Release 24 Hour (Glucophage XR)Indications:Type 2 diabetes mellitus with hemoglobin A1c goal of less than 7.5% ([facility]) Take 2 Tablets by mouth in the morning. 180 Tablet 1 01/29/2023 04/29/2023 Active documented as of this encounter (statuses [...] Telephone Encounter - Ludivina Eden LPN - 02/23/2023 11:27 AM EDT Notified patient per Keypr[employer] message, patient is active. Standard orders for cbcd already placed. ----- Message from Pietro Sykes MD sent at 02/23/2023 9:10 AM EDT ----- Blood workup done on 02/22/2023: -hemoglobin level -> 8.5, normal WBC and normal Platelet count Slight drop in the hemoglobin level noted, does not require blood transfusion support Will repeat another blood count in about 2 weeks. documented in this encounter Plan of Treatment Upcoming Encounters Date Type Specialty Care Team Description 02/23/2023 Office Visit Cardiology Chris Choudhury PA-C [address] [place] [address] 03/02/2023 Home Visit [facility] Kami Rosado RN [address] [place] [address] 03/08/2023 Laboratory Laboratory Processing [facility] Draw [address] [place] [address] 03/22/2023 Laboratory Laboratory Processing [facility] Draw [address] [place] [address] 07/11/2023 Cardiac Studies Cardiology [facility] [address] [place] [address] 07/17/2023 Office Visit Dermatology Pilar Joseph PA-C [address] [place] [address] [place] [address] 07/26/2023 Office Visit Family Medicine Muriel Moreira MD [address] [place] [address] [place] [address] Health Maintenance Due Date Last Done Comments [...] COPD 09/06/2023 09/06/2022 CKD PHOS USE SMARTSET 42210 09/07/2023 12/0 04/2022, 09/05/2022, 01/14/2022, Additional history exists Depression Screening, Annual for Pts 12 and Over 01/25/2024 01/24/2023 DIG LEVEL FOR MEDICATION MONITORING YEARLY 01/26/2024 01/25/2023, 04/17/2021, 03/09/2020, Additional history exists Albumin/Creatinine Ratio 01/27/2024 023, 01/14/2022, 08/14/2017, Additional history exists CKD HGB USE SMARTSET 99287 02/23/202402/22, 02/22/2023, 02/08/2023, Additional history exists Zoster [...] this encounter Medical Devices Implanted Type Area Broaching Machine Operator Device Identifier Shelf Expiration Date Model / Serial / Lot Screw T2 Alpha Lock 5x47.5mm - [id number] Implanted:Qty: 1 on 09/06/2022 by Sean Silva MD at [facility] Left: Leg Upper RICHELLE : TRAUMA 06/01/2032 [id number] / / [id number] documented as of this encounter Advance Directives Documents on File Type Date Recorded Patient Bleach Tester Expl anation POLST 10/17/2022 [place] OR DERS [...] Agen t (per Health Care Power of Spring Internship document) Reji Omer Dotts Adult Child First Alterna te Health Care Agent (per Health Care Power of Spring Internship document) Bowen Tello Adult Child First Alternate Health Care Agent (per Health Care Power of Spring Internship document) Care Teams Necktie Maker Relationship Specialty Start Date End Date Muriel Moreira MD [address] [place] [address] [place] [address] PCP - General Family Medicine 06/26/18 documented as of this encounter
[2023-08-22 04:58] LABS: Albumin Level 2.9 gm/dl (3.4-5.0); Bilirubin,Total 0.4 mg/dl (0.2-1.0); Calcium 8.9 mg/dl (8.6-10.3); Potassium 4.2 mmol/L (3.5-5.1)
[2023-08-22 05:02] LABS: Hematocrit (blood only) 18.2 % (42.0-52.0); Hemoglobin 5.4 g/dl (14.0-18.0); Mean Corpuscular Hemoglobin 31.8 pg (25.0-34.0); Mean Corpuscular Hgb Conc 29.7 g/dL (32.0-36.0); Mean Corpuscular Volume 107.1 fL (80.0-100.0); Nucleated RBC # (auto) 0.02 K/uL (0.00-0.12); Nucleated RBC % (auto) 0.4 %; Platelet Count 189 K/uL (130-400); RDW Coefficient of Variation 19.7 % (11.5-14.5); RDW Standard Deviation 74.1 fL (36.4-46.3)
[2023-08-22 05:04] LABS: Albumin Globulin Ratio 0.6 (0.9-2); BUN Creatinine Ratio 28.3 (10-20); Creatinine Clr Calc Pharmacy 37.9 ml/min; Est GFR (African American) 49.1 ml/min; Est GFR (Non-African American) 42.4 ml/min; Globulin 5.2 gm/dl (2.5-4.0); Total Protein 8.1 gm/dl (6.0-8.3)
[2023-08-22 05:26] LABS: INR 1.1 (0.9-1.1); Partial Thromboplastin Ratio 0.9; Partial Thromboplastin Time 24.8 Seconds (21.0-31.0)
[2023-08-22 06:07] LABS: Basophils # (auto) 0.02 K/uL (0.00-0.20); Basophils % (auto) 0.4 %; Eosinophils # (auto) 0.38 K/uL (0.00-0.50); Eosinophils % (auto) 7.3 %; Hypochromasia Present; Immature Granulocytes # (auto) 0.01 K/uL (0.01-0.20); Immature Granulocytes % (auto) 0.2 %; Lymphocytes # (auto) 1.38 K/uL (1.20-3.40); Lymphocytes % (auto) 26.5 %; Monocytes # (auto) 0.73 K/uL (0.11-0.59); Neutrophils # (auto) 2.68 K/uL (1.40-6.50); Neutrophils % (auto) 51.6 %; Polychromasia 1+
--- NOTE | 2023-08-22 06:11 | History & Physical Report ---
Date of Service August 22, 2023 Assessment & Plan (1) Symptomatic anemia: Plan: Acute on chronic anemia Hemoglobin drop from baseline Recurrent episode, hx multiple myeloma, patient not a candidate for treatments due to multiple comorbidities as per [facility] note. Rule out bleed/occult GI bleed chronic diastolic heart failure (EF 60 to 65%, TTE 2022), patient on the dry side ARF secondary to illness SSS status post PPM, paced rhythm, not on anticoagulation secondary to bleeding risk CAD status post CABG/stent, PVD valvular heart disease (mild /TR, moderate MR) Pulmonary hypertension as per records hypertension, slightly elevated COPD, lung status at baseline DM2 on oral medications, well-controlled as of recent hemoglobin A1c of 5.3 last July 2023 Recurrent UTIs on chronic methenamine suppression Rx History BPH dementia as per records, at baseline past tobacco abuse Medical telemetry Transfuse PRBC to maintain hemoglobin of at least 8 Appropriate to hold patient antiplatelet Rx for now until GI/ bleed ruled out Follow UA FOBT Further management pending work-up results Monitor creatinine response to IVF, hold losartan and home diuretic for now until creatinine back to baseline ISS BG goal 1 10-1 40 DVT prophylaxis. SCDs Re: Possible occult bleed causing anemia DNR Patient family requesting updates from providers. Ms. Remedios Booth (), contact #[phone] Ms. Reji Trejo (daughter), contact #[phone]. Text document was generated using [employer] voice recognition software. It may contain grammatical or spelling errors. Kindly contact undersigned for clarification of any documentation item in question. History of Present Illness Chief Complaint: Abnormal blood work Primary Care Provider: Muriel Chowdary MD History obtained from patient, family, and records. Limited history from patient secondary to marked hearing impairment/dementia. Medical history significant for chronic diastolic heart failure EF 60 to 65%, TTE 2022), CAD status post CABG/stent, PVD, SSS status post PPM not on anticoagulation secondary to bleeding risk, valvular heart disease (mild /TR, moderate MR), hypertension, COPD, DISH, BPH, DM2 on oral medications, GERD, dementia as per records, recurrent UTIs on chronic methenamine suppression Rx, multiple myeloma, chronic anemia (baseline hemoglobin of 8), past tobacco abuse. Recent confinement last month for anemia in the setting of multiple myeloma; CHF exacerbation. Patient noted increasing weakness and fatigue for the last few days. Denies chest pain, cough symptoms, headache symptoms. No abdominal pain. Blood noted on patient's underwear. Family worried about bloody urine but unsure. Not sure about black or bloody stools. Outpatient lab work ordered by providers. Hemoglobin noted to be 5.7. Patient directed to ER for evaluation. 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 Allergies Allergy/AdvReac Type Severity Reaction Status Date / Time Sulfa (Sulfonamide Allergy Severe Unresponsiv Verified 08/22/23 08:09 Antibiotics) e FELECIA Inhibitors Allergy Unknown Unknown Verified 08/22/23 08:09 hydrocodone AdvReac Severe AMS Unverified 08/22/23 08:09 prednisone AdvReac Intermediate BLISTERS Verified 08/22/23 08:09 IN THROAT pseudoephedrine AdvReac Intermediate TEMP ELEV Verified 08/22/23 08:09 Home Medications Medication Instructions Recorded Confirmed Type albuterol sulfate 90 mcg/actuation 2 puff inhalation QID PRN 06/07/18 08/22/23 History aerosol inhaler (Proventil HFA) Shortness Of Breath digoxin 125 mcg (0.125 mg) tablet 125 mcg PO 3XWK 06/07/18 08/22/23 History fluticasone 250 mcg-salmeterol 50 1 inh inhalation AMHS 06/07/18 08/22/23 History mcg/dose blistr powdr for inhalation (Advair Diskus) magnesium oxide 400 mg (241.3 mg 400 mg PO PM 06/07/18 08/22/23 History magnesium) tablet potassium chloride 20 mEq 20 meq PO QAM 06/07/18 08/22/23 History tablet,extended release(part/cryst) (Klor-Con M) furosemide 40 mg tablet (Lasix) 40 mg PO QAM 04/25/19 08/22/23 History latanoprost 0.005 % eye drops 1 drp OPB QAM 03/24/20 08/22/23 History pantoprazole 40 mg tablet,delayed 40 mg PO QAM 10/22/21 08/22/23 History release clopidogrel 75 mg tablet 75 mg PO QAM 04/20/22 08/22/23 History triamcinolone acetonide 0.1 % 1 applic topical BID PRN rash or 04/20/22 08/22/23 History topical ointment more instead of scratching ferrous sulfate 325 mg (65 mg 325 mg PO BID 08/28/22 08/22/23 History iron) tablet (FeroSul) losartan 50 mg tablet 50 mg PO QAM 08/28/22 08/22/23 History metoprolol succinate 50 mg 50 mg PO QAM 08/28/22 08/22/23 History tablet,extended release 24 hr multivitamin 1 tab PO DAILY 08/28/22 08/22/23 History methenamine hippurate 1 gram tablet 1 g PO BID 30 days #60 tabs 11/25/22 08/22/23 Rx glipizide 5 mg tablet, extended 5 mg PO QAM 04/20/23 08/22/23 History release 24 hr acetaminophen 500 mg tablet 500 mg PO BID PRN Pain 08/22/23 08/22/23 History dutasteride 0.5 mg capsule 0.5 mg PO QAM 08/22/23 08/22/23 History ondansetron HCl 4 mg tablet 4 mg PO Q6H PRN Nausea And Vomiting 08/22/23 08/22/23 History Past Med/Surg History Medical History Anemia Aortic aneurysm unsure of last ultrasound/scan -- no surgical intervention. Moderate aortic root dilatation noted on 2018 echo. No AAA noted on [address] Aortic valve insufficiency Moderate-severe per 11/2018 echo BPH (benign prostatic hyperplasia) CAD (coronary artery disease) (08/21/14) S/p CABG July 2000 receiving KAUR graft to LAD, saphenous vein graft sequentially from the obtuse marginal to diagonal. S/p stenting of prox Cx 2013 Chronic back pain CKD stage 3 due to type 2 diabetes mellitus no specialist COPD (chronic obstructive pulmonary disease) well controlled rare res inh use Dementia mild at present Dementia Dyslipidemia Encounter for pre-operative examination GERD (gastroesophageal reflux disease) GI bleed per pt's > had 3 units PRBC's [facility] during admission in Jul 2021 Glaucoma Hearing deficit [place] History of colon polyps History of pacemaker HTN (hypertension) Ischemic cardiomyopathy EF normalized, most recently 55-60% on 11/2018 echo Multiple myeloma On home oxygen therapy 2 LPM QHS Osteoarthritis Persistent atrial fibrillation Anticoagulation contraindicated per cardiology > ICD Presence of combination internal cardiac defibrillator (ICD) and pacemaker follows w/ Dr. Sanford > Medtronic > gets checked electronically > PMH provided by , eduardo when last checked in office. Severe sepsis Shingles Tachy-lorna syndrome S/p dual chamber pacer with upgrade to pacer/ICD 2014 Type II diabetes mellitus NIDDM Surgical History History of cardiac cath 1999 --> CABG 2014 - stent - [facility] History of cataract surgery bilat History of colonoscopy History of esophagogastroduodenoscopy (EGD) History of implantable cardioverter-defibrillator (ICD) placement History of prostate surgery non cancerous History of tonsillectomy History of tooth extraction S/P CABG x 3 1999 S/P coronary artery stent placement July 2014 with stenting of the proximal circumflex Family History Grandmother Diabetes Mother Colon cancer Other Melanoma No family history of adverse response to anesthesia Social History Smoking Status: Former smoker Tobacco Type: Cigarettes Second Hand Exposure: No; Hx Alcohol Use: No Hx Substance Use: No Preferred Language: Kenyan Communication Ability: Effective Communication Ability Comment: [place] despite [facility] Re[facility] Director Occupational Therapist Required: No Beliefs That Will Affect Care: None marital status: Current Living Situation: Spouse How many Children do You have: 2 Feels Safe at Home: Yes Assistive Devices: Cane Review of Systems Review of Systems: Could not be reliably obtained secondary to dementia/marked hearing impairment Physical Exam Physical Exam: GENERAL: Comfortable, pleasant, hard of hearing, no respiratory distress SKIN: Pallor, warm HEENT: Pale palpebral conjunctivae, no ptosis, dry buccal mucosa NECK : Supple, no tenderness CHEST : CTA, no tenderness HEART : RRR, systolic murmur ABDOMEN: Some distention, nontender EXTREMITIES : Minimal LE swelling, no LE tenderness, no other conspicuous deformities noted NEUROLOGIC : Coherent, hard of hearing, no facial asymmetry, gait and stance not assessed Results & Data Results & Data Vital Signs (Past 12 Hours) Vital Signs Temp Pulse Resp BP Pulse Ox O2 Del Method 08/22/23 05:00 70 22 162/76 H 97 08/22/23 04:41 76 171/78 H 98 08/22/23 03:27 70 08/22/23 02:55 36.9 C 74 18 97 Room Air Laboratory Results Laboratory Results WBC 5.20 K/ul (4.8-10.8) 08/22/23 03:31 RBC 1.70 M/uL (4.70-6.10) L 08/22/23 03:31 Hgb 5.4 g/dl (14.0-18.0) L* 08/22/23 03:31 Hct 18.2 % (42.0-52.0) L* 08/22/23 03:31 MCV 107.1 fL (80.0-100.0) H 08/22/23 03:31 MCH 31.8 pg (25.0-34.0) 08/22/23 03:31 MCHC 29.7 g/dL (32.0-36.0) L 08/22/23 03:31 RDW Std Deviation 74.1 fL (36.4-46.3) H 08/22/23 03:31 RDW Coeff of Maricarmen 19.7 % (11.5-14.5) H 08/22/23 03:31 Plt Count 189 K/uL (130-400) 08/22/23 03:31 MPV 10.0 fL (9.4-12.4) 08/22/23 03:31 Immature Gran % (Auto) 0.2 % 08/22/23 03:31 Neut % (Auto) 51.6 % 08/22/23 03:31 Lymph % (Auto) 26.5 % 08/22/23 03:31 [place] % (Auto) 14.0 % 08/22/23 03:31 Eos % (Auto) 7.3 % 08/22/23 03:31 Baso % (Auto) 0.4 % 08/22/23 03:31 Neut # (Auto) 2.68 K/uL (1.40-6.50) 08/22/23 03:31 Lymph # (Auto) 1.38 K/uL (1.20-3.40) 08/22/23 03:31 [place] # (Auto) 0.73 K/uL (0.11-0.59) H 08/22/23 03:31 Eos # (Auto) 0.38 K/uL (0.00-0.50) 08/22/23 03:31 Baso # (Auto) 0.02 K/uL (0.00-0.20) 08/22/23 03:31 Immature Gran # (Auto) 0.01 K/uL (0.01-0.20) 08/22/23 03:31 Absolute Nucleated RBC 0.02 K/uL (0.00-0.12) 08/22/23 03:31 Nucleated RBC % (auto) 0.4 % 08/22/23 03:31 Polychromasia 1+ 08/22/23 03:31 Hypochromasia Present 08/22/23 03:31 PT 12.0 Seconds (9.0-12.0) 08/22/23 03:31 INR 1.1 (0.9-1.1) 08/22/23 03:31 APTT 24.8 Seconds (21.0-31.0) 08/22/23 03:31 PTT Ratio 0.9 08/22/23 03:31 Sodium 144 mmol/L (136-145) 08/22/23 03:31 Potassium 4.2 mmol/L (3.5-5.1) 08/22/23 03:31 Chloride 104 mmol/L (98-107) 08/22/23 03:31 Carbon Dioxide 26 mmol/L (21-32) 08/22/23 03:31 Anion Gap 14 (3-11) H 08/22/23 03:31 BUN 41 mg/dl (6-23) H 08/22/23 03:31 Creatinine 1.45 mg/dl (0.6-1.4) H 08/22/23 03:31 Est Cr Clr Drug Dosing 37.9 ml/min 08/22/23 03:31 Est GFR ( Amer) 49.1 ml/min 08/22/23 03:31 Est GFR (Non-Af Amer) 42.4 ml/min 08/22/23 03:31 BUN/Creatinine Ratio 28.3 (10-20) H 08/22/23 03:31 Glucose 108 mg/dl (70-99(Fasting)) H 08/22/23 03:31 Calcium 8.9 mg/dl (8.6-10.3) 08/22/23 03:31 Total Bilirubin 0.4 mg/dl (0.2-1.0) 08/22/23 03:31 AST 11 U/L (13-39) L 08/22/23 03:31 ALT 5 U/L (7-52) L 08/22/23 03:31 Alkaline Phosphatase 27 U/L (34-104) L 08/22/23 03:31 Total Protein 8.1 gm/dl (6.0-8.3) 08/22/23 03:31 Albumin 2.9 gm/dl (3.4-5.0) L 08/22/23 03:31 Globulin 5.2 gm/dl (2.5-4.0) H 08/22/23 03:31 Albumin/Globulin Ratio 0.6 (0.9-2) L 08/22/23 03:31 Blood Type A Positive 08/22/23 03:16 Antibody Screen NEGATIVE 08/22/23 03:16 Crossmatch See Detail 08/22/23 03:16 Diagnostic Findings Chest x-ray as per my interpretation cardiomegaly, chronic interstitial thickening EKG as per my interpretation : Rate 70, paced rhythm
[2023-08-22] MEDS ORDERED: PROMETHAZINE HCL 6.25 MG in SODIUM CHLORIDE 0.9% 50 ML IV PRN (06:23)
[2023-08-22] MEDS ORDERED: METOPROLOL SUCC 50MG EXT REL TAB PO STA (06:25)
[2023-08-22 06:26] LABS: Appearance Urine Clear (Clear); Bilirubin Urine Negative (Negative); Blood Urine Negative (Negative); Color Urine Yellow; Glucose Urine UA Negative (Negative); Ketones Urine Negative (Negative); Leukocyte Esterase Urine Negative (Negative); Nitrite Urine Negative (Negative); Protein Urine Negative (Negative); Specific Gravity Urine 1.016 (1.000-1.030); Urobilinogen Urine Negative (Negative); pH Urine 5.5 (4.5-7.5)
[2023-08-22] MEDS ORDERED: DEXTROSE 50% 50 ML SYRINGE IV PRN (06:34)
[2023-08-22] MEDS ORDERED: GLUCAGON FOR INJ 1 MG VIAL SQ PRN (06:34)
[2023-08-22] MEDS ORDERED: GLUCOSE 10 TAB/TUBE PO PRN (06:34)
[2023-08-22] MEDS ORDERED: ACETAMINOPHEN 325 MG TAB PO PRN (06:34)
[2023-08-22] MEDS ORDERED: GLUCOSE 40% GEL 15 GM TUBE PO PRN (06:34)
[2023-08-22] MEDS ORDERED: CARBOHYDRATES FOR HYPOGLYCEMIA PO PRN (06:34)
--- OUTSIDE RECORDS SUMMARY | 2023-08-22 06:37 | External Medical Summary | Summary of Care ---
Author Name Unknown Organization [facility] Address [address] [place] [address] Phone [phone] Care Team Providers Care Small Equipment Operator Name Role Phone Zenobia Lyon MD Primary Care Provide r Reason for Visit * Reason Onset Date Comments Test Results 08/22/2023 Hgb 5.7 Encounter Details Date Type Department Care Team (Late st Contact Info) Description 08/22/2023 Telephone [facility], [facility] [address] [place] [facility] [place] [address] Mariposa Centeno CRNP [address] [place] [facility] [place] [address] Test Results (Hgb 5.7) Allergies Active Allergy Reactions Criticality Noted Date Comments James Inhibitors 09/10/2002 cough on prinivil Hydrocodone 09/05/2022 Family states AMS change when taken Prednisone 05/26/2011 Blisters in throat Sulfa Antibiotics 03/19/2001 dysurea documented as of this encounter (statuses as of 08/22/2023) Medications Medication Sig Dispensed Refills Start Date [...] 75 MG Oral Tablet (pLAVix)Indications: Atherosclerosis of [place] coronary artery of [place] heart without angina pectoris Take 1 Tablet [...] as of this encounter (statuses as of 08/22/2023) Active Problems Patient Care Coordination No te [...] control in clinical research program 03/25/2015 Overview: [employer] Product Surveillance Registry PI: Kylah Lilly IV, [...] CORONARY ATHEROSCLEROSIS OF UNSPECIFIED TYPE OF VESSEL, ROSEBUD OR GRAFT Last Assessment & Plan: Stable. 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 documented as of this encounter (statuses as of 08/22/2023) Resolved Problems Problem Noted Date Diagnosed Date [...] without hematuria 05/30/2022 01/24/2023 Overview: [facility] to [facility] 04/20-04/29 urosepsis multi drug resistant E. Coli [...] as of this encounter (statuses as of 08/22/2023) Immunizations Name Administration Dates Next Due COVID-19 mRNA, LNP-s, No Pre serve, 2-Dose Series (Moderna) 08/24/2021,12/07/2020,11/09/2020 COVID-19, MRNA-LNP, 23-24, P F, 30 MCG/0.3 mL, 12 YRS AND ABOVE, IM (Nebo.ru-Comirnaty) 07/19/2023 Covid-19, Mrna, Lnp-s, Pf, B ivalent, [...] Miscellaneous Notes * Telephone Encounter - Mariposa Centeno CRNP - 08/22/2023 1:29 AM EST teacher physically impaired critical lab received hgb 5.7 Chart reviewed, call placed to patients daughter Pita with recommendation to have patient go to hospital given recent reporting of symptoms (significant fatigue, recent hospitalization for severe anemia requiring 4 units of blood). Daughter states understanding and will wake patient up and call [address] [facility]. ARNULFO Palomino documented in this encounter Plan of Treatment Upcoming Encounters Date Type Department Care Team (Late st Contact Info) Description 08/22/2023 9:00 AM EST Scheduled [facility]phone [facility], [facility] [address] [place] [address] Coordinator, [facility] [address] [facility] [place] [address] 08/29/2023 3:30 PM EST Office Visit Cardiology [address] [place] [phone] Chris Choudhury PA-C [address] [place] [address] 09/06/2023 9:10 AM EST Laboratory Lab Mobile Phlebotomy [facility] [address] [place] [address] [facility] Draw [address] [place] [address] 09/20/2023 9:10 AM EST Laboratory Lab Mobile Phlebotomy [facility] [address] [place] [address] [facility] Draw [address] [place] [address] 09/29/2023 10:00 AM EST Home Visit [facility] [place], [facility] [address] [facility] [place] [address] Lila Brownlee, SANKET [address] [place] [address] 10/04/2023 9:10 AM EST Laboratory Lab Mobile Phlebotomy [facility] [address] [place] [address] [facility] Home Draw [address] [place] [address] 10/18/2023 9:10 AM EST Laboratory Lab Mobile Phlebotomy [facility] [address] [place] [address] [facility] Draw [address] [place] [address] 10/19/2023 4:20 PM EST Office Visit [address] [phone] Zenobia Lyon MD [address] [place] [address] [place] [address] 11/01/2023 9:10 AM EST Laboratory Lab Mobile Phlebotomy [facility] [address] [place] [address] [facility] [address] [place] [address] 11/15/2023 9:10 AM EST Laboratory Lab Mobile Phlebotomy [facility] [address] [place] [address] [facility] Draw [address] [place] [address] 11/29/2023 9:10 AM EST Laboratory Lab Mobile Phlebotomy [facility] [address] [place] [address] [facility] Draw [address] [place] [address] 12/13/2023 9:10 AM EDT Laboratory Lab Mobile Phlebotomy [facility] [address] [place] [address] [facility] Draw [address] [place] [address] 01/26/2024 4:20 PM EDT Office Visit [address] [phone] Zenobia Lyon MD [address] [place] [address] [place] [address] Scheduled Procedures Name Priority Associated Diagnoses Date/Ti [...] Additional history exists CKD PHOS USE SMARTSET 20863 07/25/202407/03, 09/07/2022, 09/05/2022, Additional history exists CKD HGB USE SMARTSET 17259 08/21/202408/21, 08/21/2023, 08/09/2023, Additional history exists COLONOSCOPY-EVERY 5 YRS AGES [...] this encounter Medical Devices Implanted Type Area Experimental Display Builder Device Identifier Shelf Expiration Date Model / Serial / Lot Screw T2 Alpha Lock 5x47.5mm - [id number] Implanted:Qty: 1 on 09/06/2022 by Sean Silva MD at [facility] Left: Leg Upper RICHELLE : TRAUMA 06/01/2032 [id number] / / [id number] documented as of this encounter Advance Directives Documents on File Type Date Recorded Patient Inker And Opaquer Expl anation POLST 10/17/2022 [place] [...] Agen t (per Health Care Power of Sewing Machine Operator document) Reji Tello Dotts Adult Child First Alterna te Health Care Agent (per Health Care Power of Sewing Machine Operator document) Bowen Tello Adult Child First Alternate Health Care Agent (per Health Care Power of Sewing Machine Operator document) Care Teams Small Equipment Operator Relationship Specialty Start Date End Date Zenobia Lyon MD [address] [place] [address] [place] [address] PCP - General Family Medicine 05/22/23 documented as of this encounter
--- NOTE | 2023-08-22 07:26 | XRay Report ---
SINGLE VIEW CHEST CLINICAL HISTORY: Dyspnea. Anemia. FINDINGS: 2 AP, portable, upright chest radiographs are compared to study dated 07/20/2023. Correlati on is made with chest CT dated 11/19/2017. The examination is degraded by portable technique and patie nt rotation. A 3-lead cardiac AICD is unchanged in position. The patient is status post midline abreu otomy. The heart is enlarged noting atherosclerotic calcification of the thoracic aorta. Enlargement of the central pulmonary arteries suggests pulmonary artery hypertension. The pulmonary vasculature i s noncongested. Emphysema and chronic interstitial thickening is similar to previous. There is bibasi lar scarring/atelectasis. No airspace consolidation or large pleural effusion is identified. No pneum othorax is seen. The skeletal structures are osteopenic. The bony thorax is grossly intact. IMPRESSION: 1. Cardiomegaly and AICD without radiographic evidence of congestive failure. 2. Emphysema. 3. No airspace consolidation or large pleural effusion is identified. ACT 112: Negative or not required by law. Electronically signed by: Troy Wood M.D. 08/22/2023 7:25 AM
[2023-08-22] MEDS: INSULIN ASPART PER UNIT CHARGE SC SCH ×4 (09:18→21:15)
[2023-08-22] MEDS: FINASTERIDE 5 MG TAB PO SCH (11:09)
[2023-08-22] MEDS: PANTOprazole 40 MG TAB PO SCH (11:09)
[2023-08-22] MEDS: MULTIVITAMIN TAB PO SCH (11:10)
[2023-08-22] MEDS: METHENAMINE HIPPURATE 1 GM TAB PO SCH ×2 (11:10→20:46)
[2023-08-22] MEDS: FERROUS SULFATE 325 MG TAB PO SCH ×2 (11:42→20:45)
[2023-08-22] MEDS: LATANOPROST 0.005% OP SOLN 2.5 ML BTL OPB SCH (11:42)
[2023-08-22] MEDS ORDERED: FUROSEMIDE 40 MG/4 ML VIAL IV ONE ×2 (14:04→16:45)
--- NOTE | 2023-08-22 14:10 | Communication Note ---
Date of Service: August 22, 2023 Patient was seen and examined at bedside. 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 Of note, concerned about blood in his underwear but has not noted blood in the stool. Patient has a chronic mole in his genital region which he might have scratched/might have bled. Currently dried scab near it/no signs of infection. He is being managed for the following: Anemia In setting of Multiple myeloma requiring recurrent transfusions (last week of july in his recent confinement), TYRESE Of note, admitted in April 2023 for anemia, possible GI bleed - EGD without evidence of bleeding, colonoscopy shows multiple polyps seen which were resected and retrieved. Currently on plavix for h/o CAD, most recent intervention with stent in 2013. Aspirin previously discontinued Admitting hemoglobin of 5.4, will transfuse 3 units PRBC, 40 Mg IV Lasix in between. Follow-up H&H in the afternoon. Labs in AM. No evidence of active bleeding, continue Protonix for now. Continue iron supplementation Chronic heart failure with preserved ejection fraction: Patient euvolemic. IV Lasix in between blood transfusion. Monitor for volume overload. Stable currently. Multiple Myeloma Follows with Dr. Sykes Family member decided not to proceed with any kind of systemic chemotherapy for the multiple myeloma diagnosis. Continue blood transfusion support for the symptomatic anemia DM II Hold home agents SSI while in-patient BSG AC HS HTN: Continue with home blood pressure medications. Asthma/COPD No signs/sx of exacerbation Continue home Advair, Duonebs as needed Persistent atrial fibrillation Anticoagulation contraindicated 2/2 GI bleeds Continue Digoxin, Toprol CKD III Cr of 1. 4 5 today (baseline ~ 1.5). Continue to monitor with daily BMP Alzheimer's dementia DVT Ppx: SCDs given anemia, h/o GI bleeding Code status: DNR/DNI PCP: Dr. Sellathurai Dispo: Admitted to PCU Formal progress note to follow tomorrow.
[2023-08-22] MEDS ORDERED: Nursing to Pharmacy Communication SCH (16:30)
[2023-08-22 17:34] LABS: Hematocrit (blood only) 24.2 % (42.0-52.0); Hemoglobin 7.5 g/dl (14.0-18.0)
[2023-08-23 04:51] LABS: Basophils # (auto) 0.03 K/uL (0.00-0.20); Basophils % (auto) 0.6 %; Eosinophils # (auto) 0.34 K/uL (0.00-0.50); Eosinophils % (auto) 7.1 %; Hematocrit (blood only) 25.1 % (42.0-52.0); Immature Granulocytes # (auto) 0.02 K/uL (0.01-0.20); Immature Granulocytes % (auto) 0.4 %; Lymphocytes # (auto) 0.98 K/uL (1.20-3.40); Lymphocytes % (auto) 20.5 %; Mean Corpuscular Hemoglobin 30.2 pg (25.0-34.0); Mean Corpuscular Hgb Conc 31.9 g/dL (32.0-36.0); Mean Corpuscular Volume 94.7 fL (80.0-100.0); Mean Platelet Volume 9.6 fL (9.4-12.4); Monocytes # (auto) 0.69 K/uL (0.11-0.59); Monocytes % (auto) 14.5 %; Neutrophils # (auto) 2.71 K/uL (1.40-6.50); Neutrophils % (auto) 56.9 %; Nucleated RBC # (auto) 0.02 K/uL (0.00-0.12); Nucleated RBC % (auto) 0.4 %; Platelet Count 176 K/uL (130-400); RDW Coefficient of Variation 22.3 % (11.5-14.5); RDW Standard Deviation 71.1 fL (36.4-46.3); Red Blood Count 2.65 M/uL (4.70-6.10); White Blood Count 4.77 K/ul (4.8-10.8)
[2023-08-23 05:05] LABS: BUN Creatinine Ratio 24.7 (10-20); Calcium 8.4 mg/dl (8.6-10.3); Creatinine Clr Calc Pharmacy 33.9 ml/min; Est GFR (Non-African American) 37.1 ml/min; Potassium 3.7 mmol/L (3.5-5.1)
[2023-08-23 05:21] LABS: Anisocytosis Present; Polychromasia 1+
[2023-08-23 07:06] LABS: Rouleaux 1+
[2023-08-23] MEDS ORDERED: CLOPIDOGREL BISULFATE 75 MG TAB PO SCH (09:00)
[2023-08-23] MEDS ORDERED: DIGOXIN 0.125 MG TAB PO SCH (09:00)
[2023-08-23] MEDS ORDERED: FUROSEMIDE 40 MG TAB PO SCH (09:00)
[2023-08-23] MEDS ORDERED: POTASSIUM CHLORIDE CRTAB 20 MEQ TABCR PO SCH (09:00)
[2023-08-23] MEDS ORDERED: LOSARTAN POTASSIUM 50 MG TAB PO SCH (09:00)
[2023-08-23] MEDS ORDERED: METOPROLOL SUCC 50MG EXT REL TAB PO SCH (09:00)
[2023-08-23] MEDS: MULTIVITAMIN TAB PO SCH (09:03)
[2023-08-23] MEDS: PANTOprazole 40 MG TAB PO SCH (09:03)
[2023-08-23] MEDS: FINASTERIDE 5 MG TAB PO SCH (09:03)
[2023-08-23] MEDS: INSULIN ASPART PER UNIT CHARGE SC SCH ×2 (09:04→13:25)
[2023-08-23] MEDS: LATANOPROST 0.005% OP SOLN 2.5 ML BTL OPB SCH (09:04)
[2023-08-23] MEDS: FERROUS SULFATE 325 MG TAB PO SCH (10:32)
[2023-08-23] MEDS: METHENAMINE HIPPURATE 1 GM TAB PO SCH (10:32)
--- NOTE | 2023-08-23 14:10 | Discharge Summary ---
Discharge Summary Date of Service August 23, 2023 Notes For Next Care Provider Medication Changes From Visit None Admission HPI Per Admitting Provider History obtained from patient, family, and records. Limited history from patient secondary to marked hearing impairment/dementia. Medical history significant for chronic diastolic heart failure EF 60 to 65%, TTE 2022), CAD status post CABG/stent, PVD, SSS status post PPM not on anticoagulation secondary to bleeding risk, valvular heart disease (mild /TR, moderate MR), hypertension, COPD, DISH, BPH, DM2 on oral medications, GERD, dementia as per records, recurrent UTIs on chronic methenamine suppression Rx, multiple myeloma, chronic anemia (baseline hemoglobin of 8), past tobacco abuse. Recent confinement last month for anemia in the setting of multiple myeloma; CHF exacerbation. Patient noted increasing weakness and fatigue for the last few days. Denies chest pain, cough symptoms, headache symptoms. No abdominal pain. Blood noted on patient's underwear. Family worried about bloody urine but unsure. Not sure about black or bloody stools. Outpatient lab work ordered by providers. Hemoglobin noted to be 5.7. Patient directed to ER for evaluation. 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 Admission Exam Per Admitting Provider GENERAL: Comfortable, pleasant, hard of hearing, no respiratory distress SKIN: Pallor, warm HEENT: Pale palpebral conjunctivae, no ptosis, dry buccal mucosa NECK : Supple, no tenderness CHEST : CTA, no tenderness HEART : RRR, systolic murmur ABDOMEN: Some distention, nontender EXTREMITIES : Minimal LE swelling, no LE tenderness, no other conspicuous deformities noted NEUROLOGIC : Coherent, hard of hearing, no facial asymmetry, gait and stance not assessed Principal Dx & Hospital Course #1 = Principal Diagnosis (1) Symptomatic anemia: #Acute on chronic anemia iso Multiple Myeloma Recurrent episode, hx multiple myeloma, patient not a candidate for treatments due to multiple comorbidities as per [facility] Hematology note. No signs of GIB Responded to transfusion, 8.0 hgb upon discharge Encouraged follow up with Heme/Onc given concerns over transfusion dependence #chronic diastolic heart failure (EF 60 to 65%, TTE 2022), patient on the dry side SSS status post PPM, paced rhythm, not on anticoagulation secondary to bleeding risk CAD status post CABG/stent, PVD valvular heart disease (mild /TR, moderate MR) Pulmonary hypertension as per records hypertension, slightly elevated -Resume home medications as prescribed #COPD, lung status at baseline #DM2 on oral medications, well-controlled as of recent hemoglobin A1c of 5.3 last July 2023 #Recurrent UTIs on chronic methenamine suppression Rx #dementia as per records, at baseline Discussed discharge and follow up with . wishes to discuss *goals* and hostel parent plan with heme/onc given dependence on transfusions and burden/exhaustion it places on family and patient. On day of discharge, patient was pleasant, at baseline cognitively, denies pain or dizziness, eating well Discussed concerns with Discharge Exam Constitutional WD/WN, vitals as above Respiratory normal respiratory effort, lungs clear to auscultation Cardiovascular RRR, no murmur, no edema Updated Medication List Medication Instructions Recorded Confirmed Type albuterol sulfate 90 mcg/actuation 2 puff inhalation QID PRN 06/07/18 08/22/23 History aerosol inhaler (Proventil HFA) Shortness Of Breath digoxin 125 mcg (0.125 mg) tablet 125 mcg PO 3XWK 06/07/18 08/22/23 History fluticasone 250 mcg-salmeterol 50 1 inh inhalation AMHS 06/07/18 08/22/23 History mcg/dose blistr powdr for inhalation (Advair Diskus) magnesium oxide 400 mg (241.3 mg 400 mg PO PM 06/07/18 08/22/23 History magnesium) tablet potassium chloride 20 mEq 20 meq PO QAM 06/07/18 08/22/23 History tablet,extended release(part/cryst) (Klor-Con M) furosemide 40 mg tablet (Lasix) 40 mg PO QAM 04/25/19 08/22/23 History latanoprost 0.005 % eye drops 1 drp OPB QAM 03/24/20 08/22/23 History pantoprazole 40 mg tablet,delayed 40 mg PO QAM 10/22/21 08/22/23 History release clopidogrel 75 mg tablet 75 mg PO QAM 04/20/22 08/22/23 History triamcinolone acetonide 0.1 % 1 applic topical BID PRN rash or 04/20/22 08/22/23 History topical ointment more instead of scratching ferrous sulfate 325 mg (65 mg 325 mg PO BID 08/28/22 08/22/23 History iron) tablet (FeroSul) losartan 50 mg tablet 50 mg PO QAM 08/28/22 08/22/23 History metoprolol succinate 50 mg 50 mg PO QAM 08/28/22 08/22/23 History tablet,extended release 24 hr multivitamin 1 tab PO DAILY 08/28/22 08/22/23 History methenamine hippurate 1 gram tablet 1 g PO BID 30 days #60 tabs 11/25/22 08/22/23 Rx glipizide 5 mg tablet, extended 5 mg PO QAM 04/20/23 08/22/23 History release 24 hr acetaminophen 500 mg tablet 500 mg PO BID PRN Pain 08/22/23 08/22/23 History dutasteride 0.5 mg capsule 0.5 mg PO QAM 08/22/23 08/22/23 History ondansetron HCl 4 mg tablet 4 mg PO Q6H PRN Nausea And Vomiting 08/22/23 08/22/23 History Hospital Stay Data Consultations 08/22/23 05:04 ED Decision to Admit Stat Pending Results Patient Have Any Pending Studies at Discharge: No Discharge Instructions Given to Patient (Per Discharging Provider) You were admitted for acute anemia (low blood count) related to Multiple Myeloma. You were given blood transfusions in which you responded to appropriately. There were no changes to your home medications Please continue your home medications as prescribed Total Time Total Time Spent Total Time Spent (In Minutes): 45
--- NOTE | 2023-08-24 06:14 | Electrocardiogram Report ---
Test Reason : Blood Pressure : / mmHG Vent. Rate : 070 BPM Atrial Rate : 070 BPM P-R Int : 000 ms QRS Dur : 156 ms QT Int : 462 ms P-R-T Axes : 000 261 064 degrees QTc Int : 498 ms Ventricular-paced rhythm Abnormal ECG When compared with ECG of 20-JUL-2023 10:03, Vent. rate has decreased BY 2 BPM Confirmed by Ward Vanegas ([id number]) on 08/24/2023 6:14:08 AM Referred By: REFERRED SELF Confirmed By:Ward Vanegas
== END 2023-08-23 15:54 | disposition home health service (06) | DRG 812 ==
LOC: ED 03:05 → EDINP 06:21 → SUATTDRO 06:21 → 2N 08-23 06:35

== ENCOUNTER 2023-09-13 16:23 | Inpatient (IN) ==
--- NOTE | 2023-09-13 16:40 | Emergency Department Note ---
Impression & Plan Symptomatic anemia, Weakness ED Provider Note NAME: MARTA ALLEN Sr AGE: 88 SEX: M : 1935 ARRIVES VIA: Ambulance INFORMANT: Patient, EMS ED PROVIDER(S): Michael Lambert DO CHIEF COMPLAINT: Weakness HPI: The patient is an 88-year-old male who has a history of multiple myeloma who presented to the emergency department for an evaluation of weakness. The patient has had no dark stools. The patient denies having any chest pain but does complain of generalized weakness. He also notices some shortness of breath with exertion. He had outpatient laboratory studies done and was sent to the emergency department. ROS: See above HPI for pertinent positives & negatives. A total of 10 systems reviewed and were otherwise negative. PAST MEDICAL HISTORY: See Below PAST SURGICAL HISTORY: See Below FAMILY HISTORY: See Below SOCIAL HISTORY: See Below HOME MEDICATIONS: See Below ALLERGIES: See Below VITALS: See Below PHYSICAL EXAMINATION: GENERAL: Patient is awake alert in no acute distress patient is resting comfortably and showing no signs of anxiety EYES: The conjunctivae are clear. The pupils are round and reactive. EARS, NOSE, MOUTH AND THROAT: The nose is without any evidence of any deformity. NECK: The neck is nontender and supple. RESPIRATORY: Normal respiratory effort is noted there is no evidence of wheezing rhonchi or rales CARDIOVASCULAR: Regular rate and rhythm noted there no murmurs rubs or gallops normal S1 normal S2. GASTROINTESTINAL: The abdomen is soft. Abdomen is nontender. MUSCULOSKELETAL/EXTREMITIES: There is no evidence of gross deformity full range of motion is noted in the hips and shoulders. SKIN: There is no obvious evidence of any rash. Skin was pale. NEUROLOGIC: Patient is awake alert and oriented to person place but not time or situation. Strength was diminished but symmetric. MEDICAL DECISION MAKING: The patient is an 88-year-old male who presented to the emergency department for an evaluation of generalized weakness. The patient has a history of multiple myeloma. He is receiving frequent blood transfusions for his symptomatic anemia. He had outpatient labs drawn because of his symptoms and was found to have symptomatic anemia. The patient presented to the emergency department with family by ambulance. I discussed patient's laboratory results with him. I did consent the patient for blood transfusion. I discussed his condition with the on-call [facility] hospitalist. Triage Nursing notes reviewed. Prior medical records reviewed Vital Signs: reviewed and remarkable for elevated blood pressure. Differential diagnosis: Infection, dehydration, metabolic abnormality, hypo/hyperglycemia, electrolyte disturbance, anemia, hypoxia, cardiac sources, intracerebral event, toxicologic, neurologic, as well as other pathologies. ER treatment provided: See below Diagnostics interpreted by me: ECG: EKG was obtained in the emergency department. My interpretation is ventricular paced rhythm at 93 bpm. PVCs were noted. A right bundle branch block pattern was noted. This was compared to a tracing from August 22, 2023. No changes were noted Cardiac Monitoring: An order was placed for continuous cardiac monitoring. The monitor shows a rate of 71 bpm with paced rhythm. Laboratory studies: As stated above and show below. Imaging studies: See below. Radiographic imaging was reviewed by myself Consultation(s): I discussed this case with Pilar who is on-call for the [facility]ist group ED COURSE: Procedures: none Critical Care: I have personally spent greater than 45 minutes of critical care time in the direct management of this patient. This includes bedside care, interpretation of diagnostic studies, and testing, discussion with consultants, patient, and family members, and other required patient management activities. This 45 minutes is in excess of all separately billable procedures. Past Med/Surg History Medical History (Updated 09/13/23 @ 19:48 by Michael Lambert DO) CKD stage 3 due to type 2 diabetes mellitus no specialist Type II diabetes mellitus NIDDM Peptic ulcer disease GI bleed Elevated prostate specific antigen (PSA) Multiple myeloma History of pacemaker Shingles Encounter for pre-operative examination Severe sepsis Dementia GI bleed per pt's > had 3 units PRBC's [facility] during admission in Jul 2021 Dementia mild at present Presence of combination internal cardiac defibrillator (ICD) and pacemaker follows w/ Dr. Sanford > [employer] > gets checked electronically > PMH provided by , eduardo when last checked in office. Chronic back pain Osteoarthritis Anemia History of colon polyps GERD (gastroesophageal reflux disease) Hearing deficit [place] Glaucoma Aortic aneurysm unsure of last ultrasound/scan -- no surgical intervention. Moderate aortic root dilatation noted on 2018 echo. No AAA noted on [address] COPD (chronic obstructive pulmonary disease) well controlled rare res inh use On home oxygen therapy 2 LPM QHS BPH (benign prostatic hyperplasia) Aortic valve insufficiency Moderate-severe per 11/2018 echo Ischemic cardiomyopathy EF normalized, most recently 55-60% on 11/2018 echo Dyslipidemia Persistent atrial fibrillation Anticoagulation contraindicated per cardiology > ICD Tachy-lorna syndrome S/p dual chamber pacer with upgrade to pacer/ICD 2014 HTN (hypertension) CAD (coronary artery disease) (08/21/14) S/p CABG July 2000 receiving KAUR graft to LAD, saphenous vein graft sequentially from the obtuse marginal to diagonal. S/p stenting of prox Cx 2013 Surgical History History of implantable cardioverter-defibrillator (ICD) placement History of tooth extraction History of esophagogastroduodenoscopy (EGD) History of tonsillectomy History of cataract surgery bilat History of prostate surgery non cancerous History of colonoscopy History of cardiac cath 1999 --> CABG 2013 - 1 stent - [facility] S/P CABG x 3 1999 S/P coronary artery stent placement July 2014 with stenting of the proximal circumflex Family History Grandmother Diabetes Mother Colon cancer Other Melanoma No family history of adverse response to anesthesia Social History Smoking Status: Unknown if ever smoked Tobacco Type: Cigarettes Second Hand Exposure: No; Hx Alcohol Use: No Hx Substance Use: No Preferred Language: Thai Communication Ability: Effective Communication Ability Comment: [place] despite b/[place] [employer] Required: No Beliefs That Will Affect Care: None marital status: Current Living Situation: Spouse How many Children do You have: 2 Feels Safe at Home: Yes and Declines to Answer Assistive Devices: Cane, Hearing Aid - Bilateral and Oxygen - at Night Allergies Allergies Allergy/AdvReac Type Severity Reaction Status Date / Time Sulfa (Sulfonamide Allergy Severe Unresponsiv Verified 08/22/23 08:09 Antibiotics) e FELECIA Inhibitors Allergy Unknown Unknown Verified 08/22/23 08:09 hydrocodone AdvReac Severe AMS Unverified 08/22/23 08:09 prednisone AdvReac Intermediate BLISTERS Verified 08/22/23 08:09 IN THROAT pseudoephedrine AdvReac Intermediate TEMP ELEV Verified 08/22/23 08:09 Home Meds Home Medications Medication Instructions Recorded Confirmed albuterol sulfate 90 mcg/actuation 2 puff inhalation QID PRN 06/07/18 09/13/23 aerosol inhaler (Proventil HFA) Shortness Of Breath digoxin 125 mcg (0.125 mg) tablet 125 mcg PO 3XWK 06/07/18 09/13/23 fluticasone 250 mcg-salmeterol 50 1 inh inhalation AMHS 06/07/18 09/13/23 mcg/dose blistr powdr for inhalation (Advair Diskus) magnesium oxide 400 mg (241.3 mg 400 mg PO PM 06/07/18 09/13/23 magnesium) tablet potassium chloride 20 mEq 20 meq PO QAM 06/07/18 09/13/23 tablet,extended release(part/cryst) (Klor-Con M) furosemide 40 mg tablet (Lasix) 40 mg PO QAM 04/25/19 09/13/23 latanoprost 0.005 % eye drops 1 drp OPB QAM 03/24/20 09/13/23 pantoprazole 40 mg tablet,delayed 40 mg PO QAM 10/22/21 09/13/23 release clopidogrel 75 mg tablet 75 mg PO QAM 04/20/22 09/13/23 triamcinolone acetonide 0.1 % 1 applic topical BID PRN rash or 04/20/22 09/13/23 topical ointment more instead of scratching ferrous sulfate 325 mg (65 mg 325 mg PO BID 08/28/22 09/13/23 iron) tablet (FeroSul) losartan 50 mg tablet 50 mg PO QAM 08/28/22 09/13/23 metoprolol succinate 50 mg 50 mg PO QAM 08/28/22 09/13/23 tablet,extended release 24 hr multivitamin 1 tab PO DAILY 08/28/22 09/13/23 glipizide 5 mg tablet, extended 5 mg PO QAM 04/20/23 09/13/23 release 24 hr acetaminophen 500 mg tablet 500 mg PO BID PRN Pain 08/22/23 09/13/23 dutasteride 0.5 mg capsule 0.5 mg PO QAM 08/22/23 09/13/23 ondansetron HCl 4 mg tablet 4 mg PO Q6H PRN Nausea And Vomiting 08/22/23 09/13/23 ciprofloxacin 0.3 %-dexamethasone 4 drp otic (ear) BID 09/13/23 09/13/23 0.1 % ear drops,suspension Previous Rx's Medication Instructions Recorded methenamine hippurate 1 gram tablet 1 g PO BID 30 days #60 tabs 11/25/22 Results & Data (ED) Vital Signs Vital Signs - 24 hr 09/13/23 16:12 09/13/23 16:56 09/13/23 17:51 Temperature 36.3 C L Temperature Source Oral Pulse Rate 93 H 70 Pulse Rate [Apical] 70 Pulse Rhythm [Apical] Regular Pulse Strength [Apical] Normal Respiratory Rate 16 18 Respiratory Effort / Characteristics Non-Labored Spontaneous Non-Labored Spontaneous Respiratory Depth Normal Normal Respiratory Pattern Regular Regular Blood Pressure 121/72 Blood Pressure [Right Arm] 145/74 H Blood Pressure Mean 88 Blood Pressure Mean [Right Arm] 97 Blood Pressure Position Lying Blood Pressure Position [Right Arm] Semi-fowlers Pulse Oximetry 99 96 Oxygen Delivery Method Room Air Room Air Sepsis Recent Fever Within 48 Hours No Sepsis New/Unexplained Change in Mental Status No Sepsis Action Taken by Nursing No Action Required 09/13/23 18:33 09/13/23 19:35 Temperature 36.8 C Temperature Source Oral Pulse Rate 71 Pulse Rate [Apical] 70 Pulse Rhythm [Apical] Regular Pulse Strength [Apical] Normal Respiratory Rate 18 18 Respiratory Effort / Characteristics Non-Labored Spontaneous Respiratory Depth Normal Respiratory Pattern Regular Blood Pressure 152/67 H Blood Pressure [Right Arm] 137/65 Blood Pressure Mean 95 Blood Pressure Mean [Right Arm] 89 Blood Pressure Position Blood Pressure Position [Right Arm] Pulse Oximetry 95 97 Oxygen Delivery Method Room Air Sepsis Recent Fever Within 48 Hours Sepsis New/Unexplained Change in Mental Status Sepsis Action Taken by Group Home Medications Current Medication List: was personally reviewed by me Laboratory Data Attestation: I reviewed the patient's lab results. 09/13/23 16:46 09/13/23 16:46 Lab Results 09/13/23 Range/Units 16:46 WBC 4.39 L (4.8-10.8) K/ul RBC 1.88 L (4.70-6.10) M/uL Hgb 6.1 L* (14.0-18.0) g/dl Hct 19.7 L* (42.0-52.0) % MCV 104.8 H (80.0-100.0) fL MCH 32.4 (25.0-34.0) pg MCHC 31.0 L (32.0-36.0) g/dL RDW Std Deviation 79.7 H (36.4-46.3) fL RDW Coeff of Maricarmen 21.6 H (11.5-14.5) % Plt Count 194 (130-400) K/uL MPV 9.4 (9.4-12.4) fL Immature Gran % (Auto) 0.5 % Neut % (Auto) 39.2 % Lymph % (Auto) 34.2 % [place] % (Auto) 14.4 % Eos % (Auto) 11.2 % Baso % (Auto) 0.5 % Neut # (Auto) 1.73 (1.40-6.50) K/uL Lymph # (Auto) 1.50 (1.20-3.40) K/uL [place] # (Auto) 0.63 H (0.11-0.59) K/uL Eos # (Auto) 0.49 (0.00-0.50) K/uL Baso # (Auto) 0.02 (0.00-0.20) K/uL Immature Gran # (Auto) 0.02 (0.01-0.20) K/uL Polychromasia 1+ Anisocytosis Present Tear Drop Cells Occasional PT 11.7 (9.0-12.0) Seconds INR 1.1 (0.9-1.1) APTT 25 (21-31) Seconds PTT Ratio 0.9 Sodium 144 (136-145) mmol/L Potassium 4.0 (3.5-5.1) mmol/L Chloride 103 (98-107) mmol/L Carbon Dioxide 29 (21-32) mmol/L Anion Gap 12 H (3-11) BUN 33 H (6-23) mg/dl Creatinine 1.44 H (0.6-1.4) mg/dl Est Cr Clr Drug Dosing 38.2 ml/min Est GFR ( Amer) 49.5 ml/min Est GFR (Non-Af Amer) 42.7 ml/min BUN/Creatinine Ratio 22.9 H (10-20) Glucose 145 H (70-99(Fasting)) mg/dl Calcium 8.9 (8.6-10.3) mg/dl Total Bilirubin 0.4 (0.2-1.0) mg/dl AST 11 L (13-39) U/L ALT 5 L (7-52) U/L Alkaline Phosphatase 28 L (34-104) U/L Troponin I High Sens 17.6 (0-20) pg/ml Total Protein 8.3 (6.0-8.3) gm/dl Albumin 3.0 L (3.4-5.0) gm/dl Globulin 5.3 H (2.5-4.0) gm/dl Albumin/Globulin Ratio 0.6 L (0.9-2) Lipase 26 (11-82) U/L Blood Type A Positive Antibody Screen NEGATIVE Crossmatch See Detail Imaging Data Attestation: I personally reviewed and interpreted this imaging study as follows: My Impression: 1 view chest x-ray was obtained in the emergency department. My interpretation is no free air or definite infiltrate, final report below Radiologist's Impression: Chest X-Ray 09/13/23 16:32 XR chest 1V portable HISTORY: 88 years-old Male weak acute weakness COMPARISON: 08/22/2023 TECHNIQUE: AP view of the chest FINDINGS: Cardiac silhouette is enlarged. Median sternotomy. Left subclavian pacer/AICD. No pneumothorax, pleural effusion or airspace consolidation. Degenerative changes of the shoulders and spine. IMPRESSION: Cardiomegaly without acute process. ACT 112: Negative or not required by law. The above report was generated using voice recognition software. It may contain grammatical, syntax or spelling errors. Electronically signed by: Sourav Lr M.D. 09/13/2023 5:15 PM Discharge Plan Visit Data Chief Complaint: Abnormal Labs/Diagnostic Testing ED Provider: Michael Lambert Discharge Problem: Symptomatic anemia, Weakness Patient Disposition: Being Evaluated by Hospitalist Forms Stand Alone Forms: [facility] Prescriptions Prescriptions: No Action methenamine hippurate 1 gram tablet 1 g PO BID 30 Days Qty: 60 5RF furosemide [Lasix] 40 mg Tablet 40 mg PO QAM fluticasone propion-salmeterol [Advair Diskus] 250-50 mcg/dose Blister With Device 1 inh INHALATION AMHS potassium chloride [Klor-Con M20] 20 mEq Tablet,Er Particles/Crystals 20 meq PO QAM magnesium oxide 400 mg (241.3 mg magnesium) Tablet 400 mg PO PM digoxin 125 mcg Tablet 125 mcg PO 3XWK Rx Instructions: take 1 tablet mon,wed,mon albuterol sulfate [Proventil HFA] 90 mcg/actuation Hfa Aerosol Inhaler 2 puff INHALATION QID PRN (Reason: Shortness Of Breath) latanoprost 0.005 % Drops 1 drp OPB QAM pantoprazole 40 mg tablet,delayed release (DR/EC) 40 mg PO QAM clopidogrel 75 mg tablet 75 mg PO QAM triamcinolone acetonide 0.1 % Ointment 1 applic TOPICAL BID PRN (Reason: rash or more instead of scratching) metoprolol succinate 50 mg tablet extended release 24 hr 50 mg PO QAM losartan 50 mg tablet 50 mg PO QAM ferrous sulfate [FeroSul] 325 mg (65 mg iron) tablet 325 mg PO BID multivitamin Tablet 1 tab PO DAILY glipizide 5 mg Tablet Extended Release 24hr 5 mg PO QAM ondansetron HCl 4 mg tablet 4 mg PO Q6H PRN (Reason: Nausea And Vomiting) acetaminophen 500 mg Tablet 500 mg PO BID PRN (Reason: Pain) dutasteride 0.5 mg capsule 0.5 mg PO QAM ciprofloxacin-dexamethasone 0.3-0.1 % drops,suspension 4 drp otic (ear) BID Referrals Referrals: Muriel Chowdary MD [Outside Practitioners] -
[2023-09-13 17:15] LABS: Albumin Globulin Ratio 0.6 (0.9-2); BUN Creatinine Ratio 22.9 (10-20); Bilirubin,Total 0.4 mg/dl (0.2-1.0); Calcium 8.9 mg/dl (8.6-10.3); Creatinine Clr Calc Pharmacy 38.2 ml/min; Est GFR (African American) 49.5 ml/min; Est GFR (Non-African American) 42.7 ml/min; Globulin 5.3 gm/dl (2.5-4.0); Total Protein 8.3 gm/dl (6.0-8.3)
--- NOTE | 2023-09-13 17:16 | XRay Report ---
XR chest 1V portable HISTORY: 88 years-old Male weak acute weakness COMPARISON: 08/22/2023 TECHNIQUE: AP view of the chest FINDINGS: Cardiac silhouette is enlarged. Median sternotomy. Left subclavian pacer/AICD. No pneumothorax, pleur al effusion or airspace consolidation. Degenerative changes of the shoulders and spine. IMPRESSION: Cardiomegaly without acute process. ACT 112: Negative or not required by law. The above report was generated using voice recognition software. It may contain grammatical, syntax o r spelling errors. Electronically signed by: Sourav Lr M.D. 09/13/2023 5:15 PM
[2023-09-13] MEDS ORDERED: SODIUM CHLORIDE 0.9% 250 ML IV PRN (17:17)
[2023-09-13 17:19] LABS: Hematocrit (blood only) 19.7 % (42.0-52.0); Hemoglobin 6.1 g/dl (14.0-18.0); Mean Corpuscular Hemoglobin 32.4 pg (25.0-34.0); Mean Corpuscular Volume 104.8 fL (80.0-100.0); Mean Platelet Volume 9.4 fL (9.4-12.4); Platelet Count 194 K/uL (130-400); RDW Coefficient of Variation 21.6 % (11.5-14.5); RDW Standard Deviation 79.7 fL (36.4-46.3); Red Blood Count 1.88 M/uL (4.70-6.10); White Blood Count 4.39 K/ul (4.8-10.8)
[2023-09-13 17:20] LABS: Troponin I High Sensitivity 17.6 pg/ml (0-20)
[2023-09-13 17:28] LABS: INR 1.1 (0.9-1.1); Partial Thromboplastin Ratio 0.9; Partial Thromboplastin Time 25 Seconds (21-31); Prothrombin Time 11.7 Seconds (9.0-12.0)
[2023-09-13 17:46] LABS: Anisocytosis Present; Polychromasia 1+; Tear Drop Cells Occasional
[2023-09-13 17:47] LABS: Basophils # (auto) 0.02 K/uL (0.00-0.20); Basophils % (auto) 0.5 %; Eosinophils # (auto) 0.49 K/uL (0.00-0.50); Eosinophils % (auto) 11.2 %; Immature Granulocytes # (auto) 0.02 K/uL (0.01-0.20); Immature Granulocytes % (auto) 0.5 %; Lymphocytes % (auto) 34.2 %; Monocytes # (auto) 0.63 K/uL (0.11-0.59); Monocytes % (auto) 14.4 %; Neutrophils # (auto) 1.73 K/uL (1.40-6.50); Neutrophils % (auto) 39.2 %
--- NOTE | 2023-09-13 18:38 | History & Physical Report ---
Date of Service September 13, 2023 Assessment & Plan (1) Symptomatic anemia: (2) Multiple myeloma: Plan: Admit to [facility] Patient presenting by referral of outpatient oncology office due to symptomatic acute on chronic anemia in the setting of multiple myeloma. Outpatient labs today showed Hgb 5.9. In the ED, labs show Hgb 6.1. Patient is hemodynamically stable. Transfuse 2 unit PRBC, repeat CBC in the a.m. and provide additional units if needed. Due to history of ischemic heart myopathy and chronic diastolic CHF, will give Lasix 40 mg IV in between units. Follows with Dr. Pietro Sykes. Due to patient's advanced age, patient and family have elected for nonaggressive treatment of multiple myeloma. 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: (6) CAD (coronary artery disease): Plan: Appears stable, appears euvolemic, no reports of chest pain Echo 07/2023-EF 60 to 65% Continue Plavix, beta-mike, ARB (7) Moderate persistent asthma: Plan: Chronic, stable No signs of acute exacerbation Continue home inhalers (8) BPH (benign prostatic hyperplasia): Plan: Chronic, stable Continue home meds (9) Type II diabetes mellitus: Plan: Hgb A1c 5.5 07/2023 Hold oral agents and utilize NovoLog per protocol while hospitalized, would allow for more labile control secondary to patient's advanced age (10) CKD stage 3 due to type 2 diabetes mellitus: Plan: Baseline creatinine mid 1s, creatinine 1.4 today Monitor renal functions DVT PROPHYLAXIS SCDs due to anemia Patient seen in collaboration with Dr. Ocasio. I spent a total of 75 minutes coordinating, documenting, and providing care for this patient excluding time spent in the performance of separately billed services. This included personally reviewing all current laboratories and imaging studies, medication reconciliation, outpatient chart review, and discussion with specialists. History of Present Illness Chief Complaint: Anemia Primary Care Provider: Muriel Chowdary MD 88-year-old male with PMH DM type II, CKD stage III, moderate persistent asthma, CAD, ischemic cardiomyopathy, HTN, persistent atrial fibrillation, infrarenal AAA, chronic diastolic CHF, GERD, BPH, multiple myeloma, Alzheimer's dementia, and other problems listed below who presents to the ED for evaluation of anemia. History obtained from the patient and his son who is at the bedside and review of outpatient PCP, cardiology, oncology records. Patient undergoes weekly CBCs due to chronic anemia secondary to multiple myeloma. Outpatient labs today showed Hgb 5.9. Due to fatigue and shortness of breath, patient was referred to the ED for further evaluation. Due to underlying Alzheimer's dementia, history is somewhat limited from the patient. He currently offers no complaints. However son states that he is visibly short of breath and fatigued. No chest pain. Denies abdominal pain, nausea, vomiting, diarrhea. No bright red blood in rectum or dark tarry stools. Denies lightheadedness and dizziness. No other recent illnesses, fevers, chills. Denies urinary symptoms. In the ED, labs show Hgb 6.1. Patient is hemodynamically stable. He has been typed and crossed for 2 units PRBC. Allergies Allergy/AdvReac Type Severity Reaction Status Date / Time Sulfa (Sulfonamide Allergy Severe Unresponsiv Verified 08/22/23 08:09 Antibiotics) e FELECIA Inhibitors Allergy Unknown Unknown Verified 08/22/23 08:09 hydrocodone AdvReac Severe AMS Unverified 08/22/23 08:09 prednisone AdvReac Intermediate BLISTERS Verified 08/22/23 08:09 IN THROAT pseudoephedrine AdvReac Intermediate TEMP ELEV Verified 08/22/23 08:09 Home Medications Medication Instructions Recorded Confirmed Type albuterol sulfate 90 mcg/actuation 2 puff inhalation QID PRN 06/07/18 09/13/23 History aerosol inhaler (Proventil HFA) Shortness Of Breath digoxin 125 mcg (0.125 mg) tablet 125 mcg PO 3XWK 06/07/18 09/13/23 History fluticasone 250 mcg-salmeterol 50 1 inh inhalation AMHS 06/07/18 09/13/23 History mcg/dose blistr powdr for inhalation (Advair Diskus) magnesium oxide 400 mg (241.3 mg 400 mg PO PM 06/07/18 09/13/23 History magnesium) tablet potassium chloride 20 mEq 20 meq PO QAM 06/07/18 09/13/23 History tablet,extended release(part/cryst) (Klor-Con M) furosemide 40 mg tablet (Lasix) 40 mg PO QAM 04/25/19 09/13/23 History latanoprost 0.005 % eye drops 1 drp OPB QAM 03/24/20 09/13/23 History pantoprazole 40 mg tablet,delayed 40 mg PO QAM 10/22/21 09/13/23 History release clopidogrel 75 mg tablet 75 mg PO QAM 04/20/22 09/13/23 History triamcinolone acetonide 0.1 % 1 applic topical BID PRN rash or 04/20/22 09/13/23 History topical ointment more instead of scratching ferrous sulfate 325 mg (65 mg 325 mg PO BID 08/28/22 09/13/23 History iron) tablet (FeroSul) losartan 50 mg tablet 50 mg PO QAM 08/28/22 09/13/23 History metoprolol succinate 50 mg 50 mg PO QAM 08/28/22 09/13/23 History tablet,extended release 24 hr multivitamin 1 tab PO DAILY 08/28/22 09/13/23 History methenamine hippurate 1 gram tablet 1 g PO BID 30 days #60 tabs 11/25/22 09/13/23 Rx glipizide 5 mg tablet, extended 5 mg PO QAM 04/20/23 09/13/23 History release 24 hr acetaminophen 500 mg tablet 500 mg PO BID PRN Pain 08/22/23 09/13/23 History dutasteride 0.5 mg capsule 0.5 mg PO QAM 08/22/23 09/13/23 History ondansetron HCl 4 mg tablet 4 mg PO Q6H PRN Nausea And Vomiting 08/22/23 09/13/23 History ciprofloxacin 0.3 %-dexamethasone 4 drp otic (ear) BID 09/13/23 09/13/23 History 0.1 % ear drops,suspension Past Med/Surg History Medical History (Updated 09/13/23 @ 18:30 by ARNULFO Del Valle) CKD stage 3 due to type 2 diabetes mellitus no specialist Type II diabetes mellitus NIDDM Peptic ulcer disease GI bleed Elevated prostate specific antigen (PSA) Multiple myeloma History of pacemaker Shingles Encounter for pre-operative examination Severe sepsis Dementia GI bleed per pt's > had 3 units PRBC's [facility] during admission in Jul 2021 Dementia mild at present Presence of combination internal cardiac defibrillator (ICD) and pacemaker follows w/ Dr. Sanford > [employer] > gets checked electronically > PMH provided by , eduardo when last checked in office. Chronic back pain Osteoarthritis Anemia History of colon polyps GERD (gastroesophageal reflux disease) Hearing deficit [place] Glaucoma Aortic aneurysm unsure of last ultrasound/scan -- no surgical intervention. Moderate aortic root dilatation noted on 2018 echo. No AAA noted on [address] COPD (chronic obstructive pulmonary disease) well controlled rare res inh use On home oxygen therapy 2 LPM QHS BPH (benign prostatic hyperplasia) Aortic valve insufficiency Moderate-severe per 11/2018 echo Ischemic cardiomyopathy EF normalized, most recently 55-60% on 11/2018 echo Dyslipidemia Persistent atrial fibrillation Anticoagulation contraindicated per cardiology > ICD Tachy-lorna syndrome S/p dual chamber pacer with upgrade to pacer/ICD 2014 HTN (hypertension) CAD (coronary artery disease) (08/21/14) S/p CABG July 2000 receiving KAUR graft to LAD, saphenous vein graft sequentially from the obtuse marginal to diagonal. S/p stenting of prox Cx 2013 Surgical History History of implantable cardioverter-defibrillator (ICD) placement History of tooth extraction History of esophagogastroduodenoscopy (EGD) History of tonsillectomy History of cataract surgery bilat History of prostate surgery non cancerous History of colonoscopy History of cardiac cath 1999 --> CABG 2013 - 1 stent - [facility] S/P CABG x 3 1999 S/P coronary artery stent placement July 2014 with stenting of the proximal circumflex Family History Grandmother Diabetes Mother Colon cancer Other Melanoma No family history of adverse response to anesthesia Social History Smoking Status: Unknown if ever smoked Tobacco Type: Cigarettes Second Hand Exposure: No; Hx Alcohol Use: No Hx Substance Use: No Preferred Language: Belarusian Communication Ability: Effective Communication Ability Comment: [place] despite b/[place] [employer] Techn[employer] Required: No Beliefs That Will Affect Care: None marital status: Current Living Situation: Spouse How many Children do You have: 2 Feels Safe at Home: Yes and Declines to Answer Assistive Devices: Cane, Hearing Aid - Bilateral and Oxygen - at Night Physical Exam Constitutional: WD/WN, vitals as above no acute distress Eyes: PERRL, conjunctivae normal, anicteric sclerae ENMT: external ear and nose normal, oropharynx normal Respiratory: normal respiratory effort, lungs clear to auscultation Cardiovascular: Rate/Rhythm: regular rate and regular rhythm Vessels: normal peripheral pulses Extremities: no edema Gastrointestinal (Abdomen): normal bowel sounds, soft, nontender, no hepatosplenomegaly Musculoskeletal: no cyanosis or clubbing, extremities motor strength 5/5 Skin: no rashes, warm and dry + pallor Neurologic: PERRL, EOMI, accommodation nl, no face palsy, no dysarthria Psychiatric: Orientation: alert, oriented to person and oriented to place; + not oriented to time Insight: + limited insight Results & Data Results & Data Vital Signs (Past 12 Hours) Vital Signs Temp Pulse Pulse Resp BP BP Pulse Ox 09/13/23 17:51 70 18 145/74 H 96 09/13/23 16:56 70 09/13/23 16:12 36.3 C L 93 H 16 121/72 99 O2 Del Method 09/13/23 17:51 Room Air 09/13/23 16:56 09/13/23 16:12 Room Air Laboratory Results Short CBC 09/13/23 Range/Units 16:46 WBC 4.39 L (4.8-10.8) K/ul Hgb 6.1 L* (14.0-18.0) g/dl Hct 19.7 L* (42.0-52.0) % Plt Count 194 (130-400) K/uL BMP 09/13/23 16:46 Sodium 144 Potassium 4.0 Chloride 103 Carbon Dioxide 29 BUN 33 H Creatinine 1.44 H Glucose 145 H Calcium 8.9 Liver Function 09/13/23 Range/Units 16:46 Total Bilirubin 0.4 (0.2-1.0) mg/dl AST 11 L (13-39) U/L ALT 5 L (7-52) U/L Alkaline Phosphatase 28 L (34-104) U/L Albumin 3.0 L (3.4-5.0) gm/dl Diagnostic Findings Chest X-Ray 09/13/23 16:32 XR chest 1V portable HISTORY: 88 years-old Male weak acute weakness COMPARISON: 08/22/2023 TECHNIQUE: AP view of the chest FINDINGS: Cardiac silhouette is enlarged. Median sternotomy. Left subclavian pacer/AICD. No pneumothorax, pleural effusion or airspace consolidation. Degenerative changes of the shoulders and spine. IMPRESSION: Cardiomegaly without acute process. ACT 112: Negative or not required by law. The above report was generated using voice recognition software. It may contain grammatical, syntax or spelling errors. Electronically signed by: Sourav Lr M.D. 09/13/2023 5:15 PM Code Status & VTE Plan VTE Prophylaxis Plan VTE Prophylaxis will be ordered: Yes Supervising Physician Co-Signing Physician Notes Attending addendum The patient was seen and examined in emergency room He was noted to have low hemoglobin of 5.9 as an outpatient and has been complaining of shortness of breath and weakness He denies any other symptoms He will have 2 units of blood transfusion On examination Lying in bed without any apparent symptoms Hemodynamically stable but pale looking Chest-clear to auscultate bilaterally Heart-S1-S2, regular Abdomen-benign Extremities-no edema 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
[2023-09-13] MEDS ORDERED: GLUCAGON FOR INJ 1 MG VIAL SQ PRN (20:04)
[2023-09-13] MEDS ORDERED: DEXTROSE 50% 50 ML SYRINGE IV PRN (20:04)
[2023-09-13] MEDS ORDERED: ACETAMINOPHEN 325 MG TAB PO PRN (20:04)
[2023-09-13] MEDS ORDERED: GLUCOSE 10 TAB/TUBE PO PRN (20:04)
[2023-09-13] MEDS ORDERED: CARBOHYDRATES FOR HYPOGLYCEMIA PO PRN (20:04)
[2023-09-13] MEDS ORDERED: FUROSEMIDE 40 MG/4 ML VIAL IV ONE (20:04)
[2023-09-13] MEDS ORDERED: GLUCOSE 40% GEL 15 GM TUBE PO PRN (20:04)
[2023-09-13] MEDS ORDERED: DIGOXIN 0.125 MG TAB PO SCH (20:30)
[2023-09-13] MEDS: MAGNESIUM OXIDE 400 MG TAB PO SCH (21:02)
[2023-09-13] MEDS: METHENAMINE HIPPURATE 1 GM TAB PO SCH (21:02)
[2023-09-13] MEDS: FERROUS SULFATE 325 MG TAB PO SCH (21:03)
[2023-09-13] MEDS: INSULIN ASPART PER UNIT CHARGE SC SCH (22:19)
--- OUTSIDE RECORDS SUMMARY | 2023-09-14 08:02 | External Medical Summary ---
Author Name Unknown Address Unknown Organization [id number] [address] [place] [id number] Laboratory Report Ordering Provider Test Date Status DEB BULL 09/13/2023 10:00:00 Final Observation Date Value Abnormality Reference (Units ) Status WBC, Total 09/13/2023 10:00:00 4.21 4.00-10.80 (K/uL) Final RBC 09/13/2023 10:00:00 1.84 4.50-5.25 (M/uL) Final Hemoglobin 09/13/2023 10:00:00 5.9 Below lower panic limits 14.0-16.8 (g/dL) Final HCT 09/13/2023 10:00:00 20.0 Below low normal 40.0-48.4 (%) Final MCV 09/13/2023 10:00:00 108.7 82.0-99.5 (fL) Final MCH 09/13/2023 10:00:00 32.1 27.0-34.0 (pg) Final MCHC 09/13/2023 10:00:00 29.5 32.0-36.0 (g/dL) Final RDW 09/13/2023 10:00:00 21.6 11.5-15.5 (%) Final Platelets 09/13/2023 10:00:00 203 140-400 (K/uL) Final MPV 09/13/2023 10:00:00 9.6 6.6-11.1 (fL) Final Performing Location LAB[facility]ATORY [facility] [address] [place] [id number]
--- OUTSIDE RECORDS SUMMARY | 2023-09-14 08:02 | External Medical Summary ---
Author Name Unknown Address Unknown Organization K0[facility]ORY [facility] [address] [place] [address] Laboratory Report Ordering Provider Test Date Status DEB BULL 09/13/2023 10:00:00 Final Observation Date Value Abnormality Reference (Units ) Status SYNC LEUKOCYTES IN BLOOD BY AUTOMATED COUNT 09/13/2023 10:00:00 4.21 4.00-10.80 (K/uL) Final Segs 09/13/2023 10:00:00 45.6 40.0-75.0 (%) Final Lymphs % 09/13/2023 10:00:00 28.3 18.0-42.0 (%) Final Monos 09/13/2023 10:00:00 14.0 Above high normal 1.0-11.0 (%) Final Eosinophils 09/13/2023 10:00:00 11.4 Above high normal 0.0-6.0 (%) Final Basos 09/13/2023 10:00:00 0.7 0.0-2.0 (%) Final Absolute Segs 09/13/2023 10:00:00 1.92 1.80-7.70 (K/uL) Final Lymphs, absolute 09/13/2023 10:00:00 1.19 1.00-4.80 (K/ul) Final Monos, Abs 09/13/2023 10:00:00 0.59 0.00-1.10 (K/uL) Final Eos, Abs 09/13/2023 10:00:00 0.48 0.00-0.70 (K/uL) Final Basos, Abs 09/13/2023 10:00:00 0.03 0.00-0.20 (K/uL) Final Performing Location LABORATORY [facility] [address] [place] [address]
--- OUTSIDE RECORDS SUMMARY | 2023-09-14 08:02 | External Medical Summary ---
Author Name Unknown Address Unknown Organization [id number] [address] [place] [address] Laboratory Report Ordering Provider Test Date Status DEB BULL 09/13/2023 10:00:00 Final Observation Date Value Abnormality Reference (Units ) Status BUN 09/13/2023 10:00:00 35 Above high normal 6-20 (mg/dL) Final Creatinine 09/13/2023 10:00:00 1.6 Above high normal 0.6-1.2 (mg/dL) Final Glomerular filtration rate/1.73 sq M.predicted [Volume Rate/Area] in Serum, Plasma or Blood by Creatinine-based formula (CKD-EPI) 09/13/2023 10:00:00 41 Below low normal >=60 (mL/min) Final eGFR is calculated based on the CKD-EPI 2020 equation SODIUM 09/13/2023 10:00:00 142 135-146 (m mol/L) Final Potassium 09/13/2023 10:00:00 4.5 3.5-5.1 (m mol/L) Final Cl 09/13/2023 10:00:00 101 98-107 (mm ol/L) Final CO2 09/13/2023 10:00:00 26 22-32 (mmo l/L) Final Anion gap 09/13/2023 10:00:00 15 7-15 (mmol /L) Final Glucose 09/13/2023 10:00:00 152 Above high normal 70 -120 (mg/dL) Final Albumin 09/13/2023 10:00:00 3.0 Below low normal 3.8 -5.0 (g/dL) Final AST (Aspartate aminotransferase) 09/13/2023 10:00:00 12 10-50 (U/L) Fin al Alk Phos 09/13/2023 10:00:00 31 Below low normal 35- 130 (U/L) Final Bilirubin, Total 09/13/2023 10:00:00 0.3 <=1 .2 (mg/dL) Final Calcium 09/13/2023 10:00:00 9.4 8.4-10.2 ( mg/dL) Final Protein 09/13/2023 10:00:00 8.1 6.0-8.3 (g /dL) Final ALT (Alanine aminotransferase) 09/13/2023 10:00:00 6 Below low normal 10-50 (U/L) Final Performing Location LABORATORY [place] [address] [facility] [id number]
--- OUTSIDE RECORDS SUMMARY | 2023-09-14 08:03 | External Medical Summary ---
Author Name Unknown Address Unknown Organization [id number]ORY [facility] [address] [place] [address] Laboratory Report Ordering Provider Test Date Status DEB BULL 09/06/2023 09:29:00 Final Observation Date Value Abnormality Reference (Units ) Status WBC, Total 09/06/2023 09:29:00 3.99 Below low normal 4. 00-10.80 (K/uL) Final RBC 09/06/2023 09:29:00 2.55 4.50-5.25 (M/uL) Final Hemoglobin 09/06/2023 09:29:00 8.1 Below low normal 14 .0-16.8 (g/dL) Final HCT 09/06/2023 09:29:00 26.7 Below low normal 40. 0-48.4 (%) Final MCV 09/06/2023 09:29:00 104.7 82.0-99.5 (fL) Final MCH 09/06/2023 09:29:00 31.8 27.0-34.0 (pg) Final MCHC 09/06/2023 09:29:00 30.3 32.0-36.0 (g/dL) Final RDW 09/06/2023 09:29:00 19.7 11.5-15.5 (%) Final Platelets 09/06/2023 09:29:00 229 140-400 (K /uL) Final MPV 09/06/2023 09:29:00 9.4 6.6-11.1 ( fL) Final Performing Location [facility]ORY [facility] [place] [address] [place] [address]
--- OUTSIDE RECORDS SUMMARY | 2023-09-14 08:03 | External Medical Summary ---
Author Name Unknown Address Unknown Organization K0[facility] [place] [address] [place] [id number] Laboratory Report Ordering Provider Test Date Status DEB BULL 09/06/2023 09:29:00 Final Observation Date Value Abnormality Reference (Units ) Status SYNC LEUKOCYTES IN BLOOD BY AUTOMATED COUNT 09/06/2023 09:29:00 3.99 Below low normal 4.00-10.80 (K/uL) Final Segs 09/06/2023 09:29:00 38.3 Below low normal 40.0-75.0 (%) Final Lymphs % 09/06/2023 09:29:00 30.1 18.0-42.0 (%) Final Monos 09/06/2023 09:29:00 16.8 Above high normal 1.0-11.0 (%) Final Eosinophils 09/06/2023 09:29:00 14.3 Above high normal 0.0-6.0 (%) Final Basos 09/06/2023 09:29:00 0.5 0.0-2.0 (%) Final Absolute Segs 09/06/2023 09:29:00 1.53 Below low normal 1.80-7.70 (K/uL) Final Lymphs, absolute 09/06/2023 09:29:00 1.20 1.00-4.80 (K/ul) Final Monos, Abs 09/06/2023 09:29:00 0.67 0.00-1.10 (K/uL) Final Eos, Abs 09/06/2023 09:29:00 0.57 0.00-0.70 (K/uL) Final Basos, Abs 09/06/2023 09:29:00 0.02 0.00-0.20 (K/uL) Final Performing Location [facility]ORY [facility] [address] [place] [address]
--- OUTSIDE RECORDS SUMMARY | 2023-09-14 08:03 | External Medical Summary | Summary of Care ---
Author Name Unknown Organization [facility] Address [address] [place] [address] Phone [phone] Care Team Providers Care Insurance Inspector Name Role Phone Zenobia Lyon MD Primary Care Provide r Reason for Visit * Reason Onset Date Comments Test Results 09/07/2023 Encounter Details Date Type Department Care Team (Late st Contact Info) Description 09/07/2023 Telephone Hematology/Oncology Treatment, [place] [address] [place] [address] Pietro Sykes MD [address] [place] [address] Test Results Allergies Active Allergy Reactions Criticality Noted Date Comments James Inhibitors 09/10/2002 cough on prinivil Hydrocodone 09/05/2022 Family states AMS change when taken Prednisone 05/26/2011 Blisters in throat Sulfa Antibiotics 03/19/2001 dysurea documented as of this encounter (statuses as of 09/07/2023) Medications Medication Sig Dispensed Refills Start Date [...] MG Oral Tablet (pLAVix)Indications: Atherosclerosis of [place] coronary artery of [place] heart without angina pectoris Take 1 Tablet [...] as of this encounter (statuses as of 09/07/2023) Active Problems Patient Care Coordination No te [...] in stool Problem Noted Date Diagnosed Date Hemorrhagic disorder due to extrinsic circulating anticoagulants 08/28/2023 Last Assessment & Plan: Continues plavix daily- Protein-calorie malnutrition 07/19/2023 Chronic combined systolic (c ongestive) and diastolic (congestive) heart failure 10/12/2022 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 Late onset Alzheimer's demen tia without behavioral [...] as of this encounter (statuses as of 09/07/2023) Resolved Problems Problem Noted Date Diagnosed Date [...] hematuria 05/30/2022 01/24/2023 Overview: Xavier to [facility] 04/20-04/29 urosepsis multi drug resistant E. [...] as of this encounter (statuses as of 09/07/2023) Immunizations Name Administration Dates Next Due COVID-19 mRNA, LNP-s, No Pre serve, 2-Dose Series (Moderna) 08/24/2021,12/07/2020,11/09/2020 COVID-19, MRNA-LNP, 23-24, P F, 30 MCG/0.3 mL, 12 YRS AND ABOVE, IM ([place]-Comirnaty) 07/19/2023 Covid-19, Mrna, Lnp-s, Pf, B ivalent, [...] you got the money to buy more. Never true 08/28/20 23 Within the past 12 months, t he food you bought just didn't last and you didn't have money to get more. Never true 08/28/2023 Sex and Gender Information Value Date Recorded [...] Telephone Encounter - Tiny Chase RN - 09/07/2023 11:[address] Sykes: "Blood workup done on 09/06/2023 -WBC 3900 H&H of 8.1/26.7, Platelet count of 121249. No need for blood transfusion Repeat CBCD in about 1 week. " MyG sent. Home phlebotomy: can patient please be added for a lab draw next week "CBCd"? Thanks! documented in this encounter Plan of Treatment Upcoming Encounters Date Type Department Care Team (Late st Contact Info) Description 09/08/2023 9:30 AM EST Office Visit Otol[facility]ology [facility] [address] [facility] [place] [address] Shelley Desai MD 132 [facility] [place] [address] 09/13/2023 2:10 PM EST Laboratory Lab Mobile Phlebotomy [facility] [address] [place] [address] [facility], [facility] Mobile Home Draw [address] [place] [address] 09/20/2023 9:10 AM EST Laboratory Lab Mobile Phlebotomy [place] [address] [place] [address] [facility], [facility] Mobile Home Draw [address] [place] [address] 09/21/2023 11:00 AM EST [facility] Visit [facility], [facility] [address] [place] [address] Brennen Kay PA-C [address] [place] [address] 09/29/2023 10:00 AM EST [facility] Visit [facility], [facility] 132 [place] [address] Lila Brownlee, SANKET [address] [place] [address] 10/04/2023 9:10 AM EST Laboratory Lab Mobile Phlebotomy [facility] [address] [place] [address] [facility], [facility] Mobile Home Draw [address] [place] [address] 10/18/2023 9:10 AM EST Laboratory Lab Mobile Phlebotomy [facility] [address] [place] [address] [facility], [facility] Mobile Home Draw [address] [place] [address] 10/19/2023 4:20 PM EST Office Visit Family [address] [place] [phone] Zenobia Lyon MD [address] [place] [address] [place] [address] 11/01/2023 9:10 AM EST Laboratory Lab Mobile Phlebotomy [facility] [address] [place] [address] [facility], [facility] Mobile Home Draw [address] [place] [address] 11/15/2023 9:10 AM EST Laboratory Lab Mobile Phlebotomy [facility] [address] [place] [address] [facility], [facility] Mobile Home Draw [address] [place] [address] 11/29/2023 9:10 AM EST Laboratory Lab Mobile Phlebotomy [facility] [address] [place] [address] [facility], [facility] Mobile Home Draw [address] [place] [address] 12/13/2023 9:10 AM EDT Laboratory Lab Mobile Phlebotomy [facility] [address] [place] [address] [facility], [facility] Mobile Home Draw [address] [place] [address] 01/26/2024 4:20 PM EDT Office Visit Family Medicine [address] [place] [phone] Zenobai Lyon MD [address] [place] [address] [place] [address] 03/07/2024 1:00 PM EDT Office Visit Cardiology [address] [place] [address] Chris Choudhury PA-C [address] [place] [address] Scheduled Orders Name Type Priority Associated Diagnoses Orde r Schedule CBC WITH WBC DIFFERENTIAL Lab STAT Multiple myeloma (HCC) Expected: 09/14/2023 (Approximate), Expires: 09/07/2024 Scheduled Procedures Name Priority Associated Diagnoses Date/Ti me COLONOSCOPY FLEXIBLE PROXIMA L DIAGNOSTIC Recall History of colonic polyps Health Maintenance Due Date Last Done Comments Alpha-1 Antitrypsin 1953 Hepatitis B (1 of 3 - Risk 3-dose series) 1994 DTaP,Tdap,and Td Vaccines (2 - Td or Tdap) 01/11/2023 01/11/2013, 04/01/2003, 04/01/2003 HbA1c 07/27/2023 01/25/2023, 12/0 03/2022, 01/14/2022, Additional history exists Depression Screening 01/25/2024 01/24/2023 DIG LEVEL FOR MEDICATION MONITORING YEARLY 01/26/2024 01/25/2023, 04/17/2021, 03/09/2020, Additional history exists Albumin/Creatinine Ratio 01/27/2024 023, 01/14/2022, 08/14/2017, Additional history exists Diabetic Eye Exam 07/19/2024 07/19/2023 (Do ne elsewhere), 10/28/2021, 11/02/2020, Additional history exists Diabetic Foot Exam 07/19/2024 07/19/2023, 0 01/14/2022, 12/24/2020, Additional history exists CKD PHOS USE SMARTSET 78275 07/25/202407/03, 09/07/2022, 09/05/2022, Additional history exists O2 ASSESSMENT COMPLETED IN PAST YEAR FOR COPD 08/28/2024 08/28/2023 CKD HGB USE SMARTSET 19980 09/06/202409/06, 09/06/2023, 08/21/2023, Additional history exists COLONOSCOPY-EVERY 5 YRS AGES [...] encounter Medical Devices Implanted Type Area Production Estimator Device Identifier Shelf Expiration Date Model / Serial / Lot Screw T2 Alpha Lock 5x47.5mm - [id number] Implanted:Qty: 1 on 09/06/2022 by Sean Silva MD at OR [facility] Left: Leg Upper RICHELLE : TRAUMA 06/01/2032 [id number] / / [id number] documented as of this encounter Visit Diagnoses Diagnosis Multiple myeloma (HCC)- Primary Multiple myeloma, without mention of having achieved remission documented in this encounter Advance Directives Documents on File Type Date Recorded Patient Woods Manager Expl anation POLST 10/17/2022 [place] OR DERS [...] Agen t (per Health Care Power of Assistant Women'S Basketball Coach document) Reji Tello Neil Adult Child First Alterna te Health Care Agent (per Health Care Power of Assistant Women'S Basketball Coach document) Bowen Tello Adult Child First Alternate Health Care Agent (per Health Care Power of Assistant Women'S Basketball Coach document) Care Teams Insurance Inspector Relationship Specialty Start Date End Date Zenobia Lyon MD [address] [place] [address] [place] [address] PCP - General Family Medicine 05/22/23 documented as of this encounter
--- OUTSIDE RECORDS SUMMARY | 2023-09-14 08:03 | External Medical Summary ---
Author Name Unknown Address Unknown Organization K0G:LABORATORY [facility] [address] [place] [address] Laboratory Report Ordering Provider Test Date Status DEB BULL 09/06/2023 09:29:00 Final Observation Date Value Abnormality Reference (Units ) Status BUN 09/06/2023 09:29:00 32 Above high normal 6-20 (mg/dL) Final Creatinine 09/06/2023 09:29:00 1.6 Above high normal 0.6-1.2 (mg/dL) Final Glomerular filtration rate/1.73 sq M.predicted [Volume Rate/Area] in Serum, Plasma or Blood by Creatinine-based formula (CKD-EPI) 09/06/2023 09:29:00 41 Below low normal >=60 (mL/min) Final eGFR is calculated based on the CKD-EPI 2020 equation SODIUM 09/06/2023 09:29:00 142 135-146 (m mol/L) Final Potassium 09/06/2023 09:29:00 4.3 3.5-5.1 (m mol/L) Final Cl 09/06/2023 09:29:00 99 98-107 (mm ol/L) Final CO2 09/06/2023 09:29:00 30 22-32 (mmo l/L) Final Anion gap 09/06/2023 09:29:00 13 7-15 (mmol /L) Final Glucose 09/06/2023 09:29:00 124 Above high normal 70 -120 (mg/dL) Final Albumin 09/06/2023 09:29:00 2.9 Below low normal 3.8 -5.0 (g/dL) Final AST (Aspartate aminotransferase) 09/06/2023 09:29:00 12 10-50 (U/L) Fin al Alk Phos 09/06/2023 09:29:00 35 35-130 (U/ L) Final Bilirubin, Total 09/06/2023 09:29:00 0.3 <=1 .2 (mg/dL) Final Calcium 09/06/2023 09:29:00 9.7 8.4-10.2 ( mg/dL) Final Protein 09/06/2023 09:29:00 8.7 Above high normal 6. 0-8.3 (g/dL) Final ALT (Alanine aminotransferase) 09/06/2023 09:29:00 <5 Below low normal 10-50 (U/L) Final Performing Location LABORATORY [facility] [address] [facility] [address] [facility] [address]
--- OUTSIDE RECORDS SUMMARY | 2023-09-14 08:03 | External Medical Summary | Summary of Care ---
Author Name Unknown Organization [facility] Address [address] [place] [address] Phone [phone] Care Team Providers Care Cloak Room Attendant Name Role Phone Zenobia Lyon MD Primary Care Provide r Reason for Visit * Reason Onset Date Comments Appointment 08/29/2023 ENT Encounter Details Date Type Department Care Team (Late st Contact Info) Description 08/29/2023 Telephone Cardiology, [facility] [address] [place] [address] Chris Choudhury PA-C [address] [place] [address] Appointment (ENT /) Allergies Active Allergy Reactions Criticality Noted Date Comments James Inhibitors 09/10/2002 cough on prinivil Hydrocodone 09/05/2022 Family states AMS change when taken Prednisone 05/26/2011 Blisters in throat Sulfa Antibiotics 03/19/2001 dysurea documented as of this encounter (statuses as of 08/30/2023) Medications Medication Sig Dispensed Refills Start Date [...] 75 MG Oral Tablet (pLAVix)Indications: Atherosclerosis of [place] coronary artery of [place] heart without angina pectoris Take 1 Tablet [...] as of this encounter (statuses as of 08/30/2023) Active Problems Patient Care Coordination No te [...] control in clinical research program 03/25/2015 Overview: [employer] Product Surveillance Registry PI: Kylah Lilly IV, [...] as of this encounter (statuses as of 08/30/2023) Resolved Problems Problem Noted Date Diagnosed Date [...] hematuria 05/30/2022 01/24/2023 Overview: Xavier to [facility] 04/20-04/29 urosepsis multi drug resistant [...] as of this encounter (statuses as of 08/30/2023) Immunizations Name Administration Dates Next Due COVID-19 mRNA, LNP-s, No Pre serve, 2-Dose Series (Moderna) 08/24/2021,12/07/2020,11/09/2020 COVID-19, MRNA-LNP, 23-24, P F, 30 MCG/0.3 mL, 12 YRS AND ABOVE, IM (Droid system master-Comirnat) 07/19/2023 Covid-19, Mrna, Lnp-s, Pf, B ivalent, [...] encounter Miscellaneous Notes * Telephone Encounter - Aisha Powers OSA - 08/30/2023 8:10 AM EST Got patient scheduled sooner Thanks Aisha * Telephone Encounter - Shaina Mayfield OSA - 08/29/2023 4:11 PM EST Bowen saw Chris Prideo today in the office, and he wants him to see ENT for: Return in about 6 months (around 02/27/2024) for Clinic Visit. Check out comments: ENT for cerumen removal, allen weller I could not find any appt until 11/01. documented in this encounter Plan of Treatment Upcoming Encounters Date Type Department Care Team (Late st Contact Info) Description 09/06/2023 9:10 AM EST Laboratory Lab Mobile Phlebotomy [facility] [address] [place] [address] [facility] Mobile Home Draw [address] [place] [address] 09/08/2023 9:30 AM EST Office Visit Otolaryngology [facility] [address] [place] [address] Shelley Desai MD [address] [place] [address] 09/20/2023 9:10 AM EST Laboratory Lab Mobile Phlebotomy [facility] [address] [place] [address] [facility] Mobile Home Draw [address] [place] [address] 09/29/2023 10:00 AM EST Home Visit [facility] [address] [place] [address] Lila Brownlee RN [address] [place] [address] 10/04/2023 9:10 AM EST Laboratory Lab Mobile Phlebotomy [facility] [address] [place] [address] [facility] Mobile Home Draw [address] [place] [address] 10/18/2023 9:10 AM EST Laboratory Lab Mobile Phlebotomy [facility] [address] [place] [address] [facility] Mobile Home Draw [address] [place] [address] 10/19/2023 4:20 PM EST Office Visit Family Medicine [address] [place] [phone] Zenobia Lyon MD [address] [place] [address] [place] [address] 11/01/2023 9:10 AM EST Laboratory Lab Mobile Phlebotomy [facility] [address] [place] [address] [facility] Mobile Home Draw [address] [place] [address] 11/15/2023 9:10 AM EST Laboratory Lab Mobile Phlebotomy [facility] [address] [place] [address] [facility] Mobile Home Draw [address] [place] [address] 11/29/2023 9:10 AM EST Laboratory Lab Mobile Phlebotomy [facility] [address] [place] [address] [facility] Mobile Home Draw [address] [place] [address] 12/13/2023 9:10 AM EDT Laboratory Lab Mobile Phlebotomy [facility] [address] [place] [address] [facility] Mobile Home Draw [address] [place] [address] 01/26/2024 4:20 PM EDT Office Visit Family Medicine [address] [place] [phone] Zenobia Lyon MD [address] [place] [address] [place] [address] 03/07/2024 1:00 PM EDT Office Visit Cardiology [address] [place] [address] Chris Choudhury PA-C [address] [place] [address] Scheduled Procedures Name Priority Associated Diagnoses Date/Ti [...] Additional history exists CKD PHOS USE SMARTSET 03210 07/25/202407/03, 09/07/2022, 09/05/2022, Additional history exists CKD HGB USE SMARTSET 58542 08/21/202408/21, 08/21/2023, 08/09/2023, Additional history exists COLONOSCOPY-EVERY [...] this encounter Medical Devices Implanted Type Area Recreation Technician Device Identifier Shelf Expiration Date Model / Serial / Lot Screw T2 Alpha Lock 5x47.5mm - [id number] Implanted:Qty: 1 on 09/06/2022 by Sean Silva MD at OR [facility] Left: Leg Upper RICHELLE : TRAUMA 06/01/2032 [id number] / / [id number] documented as of this encounter Advance Directives Documents on File Type Date Recorded Patient Fusing Machine Tender Expl anation POLST 10/17/2022 [place] OR DERS [...] Agen t (per Health Care Power of [place] document) Reji Tello Vannats Adult Child First Alterna te Health Care Agent (per Health Care Power of [place] document) Bowen Tello Adult Child First Alternate Health Care Agent (per Health Care Power of [place] document) Care Teams Cloak Room Attendant Relationship Specialty Start Date End Date Zenobia Lyon MD [address] [place] [address] [place] [phone] PCP - General Family Medicine 05/22/23 documented as of this encounter
--- OUTSIDE RECORDS SUMMARY | 2023-09-14 08:03 | External Medical Summary | Summary of Care ---
Author Name Unknown Organization [facility] Address [address] [place] [address] Phone [phone] Care Team Providers Care Kindergarten Teacher Assistant Name Role Phone Zenobia Lyno MD Primary Care Provide r Reason for Visit * Reason Onset Date Comments Appointment 09/06/2023 Encounter Details Date Type Department Care Team (Late st Contact Info) Description 09/06/2023 Telephone [facility] [address] [facility] [place] [address] Services, Scheduling [address] [place] [address] Appointment (/) Allergies Active Allergy Reactions Criticality Noted Date Comments James Inhibitors 09/10/2002 cough on prinivil Hydrocodone 09/05/2022 Family states AMS change when taken Prednisone 05/26/2011 Blisters in throat Sulfa Antibiotics 03/19/2001 dysurea documented as of this encounter (statuses as of 09/06/2023) Medications Medication Sig Dispensed Refills Start Date [...] 75 MG Oral Tablet (pLAVix)Indications: Atherosclerosis of [place] coronary artery of [place] heart without angina pectoris Take 1 Tablet [...] as of this encounter (statuses as of 09/06/2023) Active Problems Patient Care Coordination No te [...] control in clinical research program 03/25/2015 Overview: [employer] Product Surveillance Registry PI: Kylah Lilly IV, [...] CORONARY ATHEROSCLEROSIS OF UNSPECIFIED TYPE OF VESSEL, TOGIAK OR GRAFT Last Assessment & Plan: Stable. 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 documented as of this encounter (statuses as of 09/06/2023) Resolved Problems Problem Noted Date Diagnosed Date [...] without hematuria 05/30/2022 01/24/2023 Overview: Xavier to [facility] 04/20-04/29 urosepsis multi drug resistant [...] as of this encounter (statuses as of 09/06/2023) Immunizations Name Administration Dates Next Due COVID-19 [...] Miscellaneous Notes * Telephone Encounter - Tiny Weston OSA - 09/06/2023 9:32 AM EST Patient is agreeable to rescheduled visit with Brennen Kay PA-C, patient has another appointment on 09/08/23 Rescheduled for 09/21/23 at 11:00am CASTRO Senior * Telephone Encounter - Caro Garcia OSA - 09/06/2023 9:31 AM EST Rcvd call from pt's Remedios to reschedule Pall Return... Transferred call to Tiny to reschedule. documented in this encounter Plan of Treatment Upcoming Encounters Date Type Department Care Team (Late st Contact Info) Description 09/08/2023 9:30 AM EST Office Visit Otolaryngology [facility] [address] [address] Shelley Desai MD [address] [place] [address] 09/20/2023 9:10 AM EST Laboratory Lab Mobile [facility]bot[facility] [address] [place] [address] [facility] [place] Mobile Home Draw [address] [place] [address] 09/21/2023 11:00 AM EST [facility] [address] [place] [address] Brennen Kay PA-C [address] [place] [address] 09/29/2023 10:00 AM EST [facility] [address] [place] [address] Lila Brownlee RN [address] [place] [address] 10/04/2023 9:10 AM EST Laboratory Lab Mobile Phlebotomy [facility] [address] [place] [address] [facility] Mobile Home Draw [address] [place] [address] 10/18/2023 9:10 AM EST Laboratory Lab Mobile Phlebotomy [facility] [address] [place] [address] [facility] Mobile Home Draw [address] [place] [address] 10/19/2023 4:20 PM EST Office Visit Family [address] [place] [phone] Zenobia Lyon MD [address] [place] [address] [place] [address] 11/01/2023 9:10 AM EST Laboratory Lab Mobile Phlebotomy [facility] [address] [place] [address] [facility] Mobile Home Draw [address] [place] [address] 11/15/2023 9:10 AM EST Laboratory Lab Mobile Phlebot[facility] [address] [place] [address] [facility] Mobile Home Draw [address] [place] [address] 11/29/2023 9:10 AM EST Laboratory Lab Mobile Phlebotomy [facility] [address] [place] [address] [facility] Mobile Home Draw [address] [place] [address] 12/13/2023 9:10 AM EDT Laboratory Lab Mobile Phlebotomy [facility] [address] [place] [address] [facility], [facility] Mobile Home Draw [address] [place] [address] 01/26/2024 4:20 PM EDT Office Visit Family Medicine [address] [place] [phone] Zenobia Lyon MD [address] [place] [address] [place] [address] 03/07/2024 1:00 PM EDT Office Visit Cardiology [address] [place] [address] Chris Choudhury PA-C [address] [place] [address] Scheduled Procedures Name Priority Associated Diagnoses Date/Ti [...] Additional history exists CKD PHOS USE SMARTSET 13275 07/25/202407/03, 09/07/2022, 09/05/2022, Additional history exists CKD HGB USE SMARTSET 14919 08/21/202408/21, 08/21/2023, 08/09/2023, Additional history exists COLONOSCOPY-EVERY [...] this encounter Medical Devices Implanted Type Area Order Expediter Device Identifier Shelf Expiration Date Model / Serial / Lot Screw T2 Alpha Lock 5x47.5mm - [id number] Implanted:Qty: 1 on 09/06/2022 by Sean Silva MD at [facility] Left: Leg Upper RICHELLE : TRAUMA 06/01/2032 [id number] / / [id number] documented as of this encounter Advance Directives Documents on File Type Date Recorded Patient Advanced Practice Professional Expl anation POLST 10/17/2022 [place] [...] t (per Health Care Power of Supervisor Reinforced Steel Placing document) Reji Tello Dotts Adult Child First Alterna te Health Care Agent (per Health Care Power of Supervisor Reinforced Steel Placing document) Bowen Tello Adult Child First Alternate Health Care Agent (per Health Care Power of Supervisor Reinforced Steel Placing document) Care Teams Kindergarten Teacher Assistant Relationship Specialty Start Date End Date Zenobia Lyon MD [address] [place] [address] [place] [address] PCP - General Family Medicine 05/22/23 documented as of this encounter
--- OUTSIDE RECORDS SUMMARY | 2023-09-14 08:03 | External Medical Summary | Summary of Care ---
Author Name Unknown Organization [facility] Address [address] [place] [address] Phone [phone] Care Team Providers Care Hanger Name Role Phone Zenobia Lyon MD Primary Care Provide r Reason for Visit * Reason Onset Date Comments Appointment 09/06/2023 Encounter Details Date Type Department Care Team (Late st Contact Info) Description 09/06/2023 Telephone [facility], [facility] [address] [facility] [place] [address] Services, Scheduling [address] [place] [address] Appointment (/) Allergies Active Allergy Reactions Criticality [...] 75 MG Oral Tablet (pLAVix)Indications: Atherosclerosis of sleetmute coronary artery of sleetmute heart without angina pectoris Take 1 Tablet [...] control in clinical research program 03/25/2015 Overview: Med[employer] Product Surveillance Registry PI: Kylah Lilly IV, [...] CORONARY ATHEROSCLEROSIS OF UNSPECIFIED TYPE OF VESSEL, FORT INDEPENDENCE OR GRAFT Last Assessment & Plan: Stable. [...] 09/08/2023 9:30 AM EST Office Visit Otolaryngology [facility] [address] [address] Shelley Desai MD [address] [address] 09/20/2023 9:10 AM EST Laboratory Lab Mobile Phlebotomy [facility] [address] [place] [address] [facility] Mobile Home Draw [address] [place] [address] 09/21/2023 11:00 AM EST [facility] Visit [facility] [address] [place] [address] Brennen Kay PA-C [address] [place] [address] 09/29/2023 10:00 AM EST [facility] Visit [facility] [address] [place] [address] Lila Borwnlee RN [address] [place] [address] 10/04/2023 9:10 AM EST Laboratory Lab Mobile Phlebotomy [facility] [address] [place] [address] [facility] Mobile Home Draw [address] [place] [address] 10/18/2023 9:10 AM EST Laboratory Lab Mobile Phlebotomy [facility] [address] [place] [address] [facility] Mobile Home Draw [address] [place] [address] 10/19/2023 4:20 PM EST Office Visit Family [address] [place] [phone] Zenobia Lyon MD [address] [place] [address] [place] [address] 11/01/2023 9:10 AM EST Laboratory Lab Mobile Phlebotomy [facility] [address] [place] [address] [facility] Mobile Home Draw [address] [place] [address] 11/15/2023 9:10 AM EST Laboratory Lab Mobile Phlebotomy [facility] [address] [place] [address] [facility] Mobile Home Draw [address] [place] [address] 11/29/2023 9:10 AM EST Laboratory Lab Mobile Phlebotomy [facility] [address] [place] [address] [facility] Mobile Home Draw [address] [place] [address] 12/13/2023 9:10 AM EDT Laboratory Lab Mobile Phlebotomy [facility] [address] [place] [address] [facility], [facility] Mobile Home Draw [address] [place] [address] 01/26/2024 4:20 PM EDT Office Visit Family Medicine [address] [place] [phone] Zenobia Lyon MD [address] [place] [address] [place] [address] 03/07/2024 1:00 PM EDT Office Visit Cardiology [address] [place] [address] Chris Choudhury PA-C [address] [place] [address] Scheduled Procedures Name Priority Associated Diagnoses Date/Ti [...] Additional history exists CKD PHOS USE SMARTSET 16070 07/25/202407/03, 09/07/2022, 09/05/2022, Additional history exists CKD HGB USE SMARTSET 47271 08/21/202408/21, 08/21/2023, 08/09/2023, Additional history exists COLONOSCOPY-EVERY [...] this encounter Medical Devices Implanted Type Area Unitizer Device Identifier Shelf Expiration Date Model / Serial / Lot Screw T2 Alpha Lock 5x47.5mm - [id number] Implanted:Qty: 1 on 09/06/2022 by Sean Silva MD at [facility] Left: Leg Upper RICHELLE : TRAUMA 06/01/2032 [id number] / / [id number] documented as of this encounter Advance Directives Documents on File Type Date Recorded Patient Traffic Control 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 anation POLST 10/17/2022 [place] [...] Agen t (per Health Care Power of Javascript Application Developer document) Reji Tello Dotts Adult Child First Alterna te Health Care Agent (per Health Care Power of Javascript Application Developer document) Bowen Tello Adult Child First Alternate Health Care Agent (per Health Care Power of Javascript Application Developer document) Care Teams Hanger Relationship Specialty Start Date End Date Zenobia Lyon MD [address] [place] [address] [place] [address] PCP - General Family Medicine 05/22/23 documented as of this encounter
--- OUTSIDE RECORDS SUMMARY | 2023-09-14 08:03 | External Medical Summary | Summary of Care ---
Author Name Unknown Organization [facility] Address [address] [place] [address] Phone [phone] Care Team Providers Care Green Building Materials Designer Name Role Phone Zenobia Lyon MD Primary Care Provide r Reason for Visit * Reason Comments NEW PATIENT Impacted cerumen Encounter Details Date Type Department Care Team (Late st Contact Info) Description 09/08/2023 9:30 AM EST Office Visit Otolaryngology [facility] 132 [facility] [place] [address] Shelley Desai MD 132 [facility] [place] [address] Bilateral impacted cerumen* Allergies Active Allergy Reactions Criticality Noted Date Comments James Inhibitors 09/10/2002 cough on prinivil Hydrocodone 09/05/2022 Family states AMS change when taken Prednisone 05/26/2011 Blisters in throat Sulfa Antibiotics 03/19/2001 dysurea documented as of this encounter (statuses as of 09/08/2023) Medications Medication Sig Dispensed Refills Start Date [...] 75 MG Oral Tablet (pLAVix)Indications: Atherosclerosis of [place]halen coronary artery of [place] heart without angina pectoris Take 1 Tablet [...] the morning. 126 Tablet 2 07/25/2023 Active Ciprofloxacin-dexAME THasone 0.3-0.1 % Otic Suspension Administer 4 Drops into ears in the morning and 4 Drops before bedtime. Do all this for 14 days. 6 mL 0 09/08/2023 3 Active documented as of this encounter (statuses as of 09/08/2023) Active Problems Patient Care Coordination No te [...] CORONARY ATHEROSCLEROSIS OF UNSPECIFIED TYPE OF VESSEL, QAGAN TAYAGUNGIN OR GRAFT Last Assessment & Plan: Stable. 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 documented as of this encounter (statuses as of 09/08/2023) Resolved Problems Problem Noted Date Diagnosed Date [...] without hematuria 05/30/2022 01/24/2023 Overview: Xavier to [facility] [...] glenn ek & Lt. leg ; Rt. buddhist 07/0207/18/2002 07/15/2015 Dyslipidemia, goal to be determined [...] as of this encounter (statuses as of 09/08/2023) Immunizations Name Administration Dates Next Due COVID-19 mRNA, LNP-s, No Pre serve, 2-Dose Series (Moderna) 08/24/2021,12/07/2020,11/09/2020 COVID-19, MRNA-LNP, 23-24, P F, 30 MCG/0.3 mL, 12 YRS AND ABOVE, IM ([facility]) 07/19/2023 Covid-19, Mrna, Lnp-s, Pf, B ivalent, [...] Sign Reading Time Taken Comments Blood Pressure - - Pulse - - Temperature 36.8 C (98.3 F) 09/08/2023 9:17 AM ES T Respiratory Rate - - Oxygen Saturation - - Inhaled Oxygen Concentration - - Weight 91.8 kg (202 lb 4.8 oz) 09/08/2023 9:17 A M EST Height 180.3 cm (5' 11") 09/08/2023 9:17 AM EST Body Mass Index 28.22 09/08/2023 9:17 AM EST documented in this encounter Functional Status [...] as of this encounter Progress Notes * Shelley Desai MD - 09/08/2023 9:44 AM EST 09/08/2023 HISTORY OF PRESENT ILLNESS This 88 year old year old male is seen today for the initial complaint of cerumen. The provider requesting consultation is Zenobia Lyon MD. Nursing Notes: Enrico Lenz, PAPER SORTER 09/08/23 0919 Signed Chief Complaint Patient presents with NEW PATIENT Impacted cerumen Marshall Tello Sr. is a 88 year old male who presents today with impacted cerumen in his right ear along with bilateral hearing loss. He uses hearing aids in both ears. He was referred by [facility] for impacted cerumen. Patient has no history of ear surgery. Denies any vertigo. 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 Asthma, moderate persistent J45.40 Type 2 diabetes mellitus with hemoglobin A1c goal of less than 7.5% ([facility]) E11.9 Essential hypertension with goal blood pressure less than 140/90 I10 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 Longstanding persistent atrial fibrillation ([facility]) I48.11 Ischemic cardiomyopathy I25.5 Aortic valve insufficiency I35.1 Automatic implantable cardioverter-defibrillator in situ Z95.810 Encounter for examination for normal comparison and control in clinical research program Z00.6 Gastroesophageal reflux disease with esophagitis K21.00 Type 2 diabetes mellitus with diabetic nephropathy, without long-term current use of insulin ([facility]) E11.21 Sensorineural hearing loss (SNHL) of both ears H90.3 Hx of nonmelanoma skin cancer Z85.828 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, R31.9 Chronic atrial fibrillation ([facility]) I48.20 Primary open-angle glaucoma, left eye, mild stage H40.1121 Skin lesion L98.9 DISH (diffuse idiopathic skeletal hyperostosis) M48.10 Chronic obstructive pulmonary disease ([facility]) J44.9 Other specified peripheral vascular diseases ([facility]) I73.89 Type 2 diabetes mellitus with peripheral [...] without long-term current use of insulin (HCC) E11.22, N18.31 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) G30.1, F02.80 Multiple myeloma (HCC) C90.00 Infrarenal abdominal aortic aneurysm (AAA) without rupture (HCC) 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 Protein-calorie malnutrition (HCC) E46 Hemorrhagic disorder due to extrinsic circulating anticoagulants (HCC) D68.32 Past Medical History: Diagnosis Date Acute posthemorrhagic anemia 06/26/2018 Asthma with acute exacerbation 11/18/2017 [facility] Asthma, moderate persistent Benign hypertension with CKD (chronic kidney disease), stage II Cardiac pacemaker in situ 02/17/10 CKD (chronic kidney disease), stage II 02/01/16 CKD (chronic kidney disease), stage III (HCC) 01/30/15 GFR 57.9 Closed fracture of dorsal (thoracic) vertebra without mention of spinal cord injury T12 Compression fx, thoracic spine ([facility]) T12 Coronary atherosclerosis of newhalen coronary artery DM type 2, goal A1c below 7 02/10/12 hgba1c 6.9 E-coli UTI 09/21/2022 Elevated prostate specific antigen (PSA) Gastric ulcer without hemorrhage or perforation 08/06/2021 HTN, goal below 140/90 Hyperlipidemia LDL goal < 100 Hypertensive heart disease with heart failure (HCC) 12/24/2020 more specific combo Hypertensive kidney disease with CKD stage III (HCC) Hypertensive kidney disease with stage 3a chronic kidney disease (HCC) 12/24/2020 More specific combo on PL Hypertrophy of prostate without urinary obstruction and other lower urinary tract symptoms (LUTS) Iliac artery aneurysm (HCC) 11/19/2014 Iliac artery aneurysm, left ([facility]) 08/27/[address] Impending pathological fracture 09/21/2022 Impending pathological fracture of left subtrochanteric femur. Impotence of organic origin Lytic bone lesion of femur 09/21/2022 Moderate persistent asthma without complication Other dermatitis due to solar radiation Other seborrheic keratosis Pain of left thigh 09/05/2022 Pathologic fracture of vertebrae L1 Pathological fracture, left femur, initial encounter for fracture (HCC) 10/12/2022 SEBORRHEIC KERATOSIS Lt. cheek & Lt. leg ; Rt. buddhist 07/02 Sensorineural hearing loss (SNHL) of both ears Sinoatrial node dysfunction (HCC) tachy-lorna syndrome Type 2 DM with CKD stage 2 and hypertension Upper GI bleed 08/06/2021 Past Surgical History: Procedure Laterality Date BONE BIOPSY, TROCAR/NEEDLE, DEEP Left 09/06/2022 BIOPSY BONE TROCAR OR NEEDLE DEEP performed by Sean Silva MD at [facility] BONE MARROW ASPIRATION Left 09/06/2022 BONE MARROW ASPIRATION performed by Sean Silva MD at [facility] CABG, ARTERIAL, THREE 07/31/2000 Triple B.P open heart [facility] COLONOSCOPY 05/03/2005 Dr Wilcox negative COLONOSCOPY, DIAGNOSTIC (RECTUM) N/A 03/26/2020 poor prep/diverticulosis sigmoid colon/internal hemorrhoids/biopsies show adenomatous polyps/Colonoscopy COLONOSCOPY, DIAGNOSTIC (RECTUM) N/A 04/25/2023 moderate diverticulosis/hemorrhoids/biopsies show adenomatous polyps/recall 5 years/Colonoscopy/MN CT L SPINE WO CONTRAST 08/27/2015 multilevel degenerative disease, Compression Fx T 12, 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 CTA CHEST NON-CORONARY W CONTRAST 11/19/2017 no PE, moderate cardiomegaly with coronary calcifications, 6 mm LLL nodule, repeat 6 mos ECHO, COMPLETE (2D), TRANS-THORACIC 11/19/2017 mild Conv LVH, EF 55-60%, mild TR and MR EGD, FLEXIBLE, DIAGNOSTIC N/A 07/27/2021 [facility], EGD, Med HH, gastritis, non-obstructing gastric ulcer, duodenal Ulcer /biopsies taken from stomach did show mild gastritis without any worrisome features / 3 month follow up EGD, FLEXIBLE, DIAGNOSTIC N/A 10/29/2021 [facility], EGD, Normal scope, Mucosal nodule found in esophagus /biopsies from the end of the esophagus showed inflammatory changes without any worrisome features / EGD, FLEXIBLE, DIAGNOSTIC 10/29/2021 normal bx / [facility] HOLTER COMPLETE (COMM PRAC) 08/06/2009 NSR with 1st degree heart block, rare ectopy, no pauses >2.5 sec INSERT PACING ELECTRODE, EXISTING PACER Left 03/16/2015 BIVENTRICULAR UPGRADE TO EXISITING DEVICE performed by Gallito Mojica MD at [facility] MISCELLANEOUS ORDER ([facility] ONLY) 02/17/2010 Dual chamber pacer insertion Medtronic 02/17/10 Dr. Gomez, [facility] MOBILE DXA 01/22/2016 Lumbar T +0.6, Femur T -0.6 repeat 4 years. Fosamax may be stopped OTHER 07/07/2009 Fracture vertebrae OTHER 1989? Nose/polyps [place] x three years in a row and also deviated septum OTHER 08/2009 Cataract bilateral on separate occasions (three weeks in between) REINFORCEMENT OF THIGH Left 09/06/2022 PROPHYLACTIC TREATMENT FEMUR performed by Sean Silva MD at [facility] Medications Current Outpatient Medications Medication Sig Dispense Refill [...] 3 days per week 36 Tablet 3 Pantoprazole Sodium 40 MG Oral [...] 1 Tablet before bedtime. 180 Tablet 3 Furosemide 40 MG Oral Tablet (Lasix) Take 1 Tablet by mouth in the morning. 126 Tablet 2 Ciprofloxacin-dexAMETHasone 0.3-0.1 % Otic Suspension Administer 4 Drops into ears in the morning and 4 Drops before bedtime. Do all this for 14 days. 6 mL 0 No current facility-administered medications for this visit. Allergies Review of patient's allergies indicates: Allergen Reactions James Inhibitors cough on prinivil Hydrocodone Family states AMS change when taken Prednisone Blisters in throat Sulfa Antibiotics dysurea Family History Family History Problem Relation Age of Onset Cancer Mother melanoma (leg)/lung cancer vs metastasis Social History Social History Tobacco Use Smoking status: Former Packs/day: 1.00 Years: 20.00 Additional pack years: 0.00 Total pack years: 20.00 Types: Cigarettes Quit date: 10/02/1969 Years since quittin.9 Smokeless tobacco: Never Tobacco comments: 1969 Substance Use Topics Alcohol use: Not Currently Comment: rare Vaping/E-Cigarette Use Vaping/E-Cigarette Use Never User Vaping/E-Cigarette Substances Vaping/E-Cigarette Devices Occupational History Work: Review of Systems Negative for constitutional, eyes, cardiac, pulmonary, hepatic, renal, digestive, hematologic, epileptic, syncopal, musculo-skeletal, mental health, integumentary, hypertensive, lipid, arthritic, diabetic, thyroid or neurologic disorders (except as listed in the PMH and Problem List). Physical Examination: Temp 36.8 C (98.3 F) (Tympanic) | Ht 1.803 m (5' 11") | Wt 91.8 kg (202 lb 4.8 oz) | BMI 28.22 kg/m | BSA 2.14 m General: This is a healthy appearing male who appears his stated age. The patient is alert and appropriately verbally conversant without hoarseness. Face: The face was inspected and no cutaneous masses or lesions were visualized. There was no erythema or edema noted. Facial movement was symmetric without weakness. Eyes: Extra-ocular muscle function was intact. No nystagmus was observed. Pupils were equal. Cranial Nerves: Cranial nerves grossly intact Nose: Examination of the nose prior to decongestion revealed no masses, polyps, mucopus, or other lesion. The nasal septum was non-obstructing. The turbinates were without abnormality. No septal perforation. Ears: Examination of the ears revealed that the auricles were normally formed with no lesions. The external auditory canals were cleaned of any obstructing cerumen. The tympanic membranes were intact. There are no significant retraction pockets. There is no inflammation visualized. No effusions areseen. Neck: Visualization and palpation of the neck revealed no mass lesions, no thyromegaly or thyroid masses. No skin lesions or inflammatory processes were detected. The cervical musculature was normal to palpation. Lymphatics (cervical): There were no palpable lymph nodes in the posterior triangle, submandibular triangle, jugulodigastric region, or central neck. Procedure: Cerumen removal Attention directed to the right ear. Under french-microscopic guidance the impacted cerumen was removed with a suction atraumatically. The tympanic membrane was intact and the middle ear was healthy appearing. Both ear canals were moist which would raise concern for an infection. The same procedure was performed on the other side. Patient tolerated the procedure well. Plan: Bilateral impacted cerumen (Primary) Other orders - Ciprofloxacin-dexAMETHasone 0.3-0.1 % Otic Suspension; Administer 4 Drops into ears in the morning and 4 Drops before bedtime. Do all this for 14 days. Will start him on antibiotic and steroid drops just to be on the safe side for 2 weeks. He will follow up with my PA in 4 weeks to make sure everything looks okay. Extensive time was spent discussing the above diagnosis, management and treatment. I reviewed all outside documentation, labs, and imaging. MD Alma Rosa Borden Otolaryngology - Head and Neck Surgery [place] 09/08/2023 9:44 AM documented in this encounter Nursing Notes * Enrico Lenz CMA - 09/08/2023 9:17 AM EST Chief Complaint Patient presents with NEW PATIENT Impacted cerumen Marshall Tello Sr. is a 88 year old male who presents today with impacted cerumen in his right ear along with bilateral hearing loss. He uses hearing aids in both ears. He was referred by [facility] for impacted cerumen. documented in this encounter Plan of Treatment Upcoming Encounters Date Type Department Care Team (Late st Contact Info) Description 09/13/2023 2:10 PM EST Laboratory Lab Mobile Phlebotomy [facility] [address] [place] [address] [facility] Mobile Home Draw [address] [place] [address] 09/20/2023 9:10 AM EST Laboratory Lab Mobile Phlebotomy [facility] [address] [place] [address] [facility] Mobile Home Draw [address] [place] [address] 09/21/2023 11:00 AM EST Home Visit [facility] at [address] [place] [address] Brennen Mccloud PA-C [address] [place] [address] 09/29/2023 10:00 AM EST Home Visit [facility] [address] [place] [address] Lila Brownlee, SANKET [address] [place] [address] 10/04/2023 9:10 AM EST Laboratory Lab Mobile Phlebotomy [facility] [address] [place] [address] [facility] Mobile Home Draw [address] [place] [address] 10/05/2023 10:20 AM EST Office Visit Otolaryngology [facility] [address] [facility] [place] [address] Kasi Tejeda PA-C [address] [place] [address] 10/18/2023 9:10 AM EST Laboratory Lab Mobile Phlebotomy [facility] [address] [place] [address] [facility], [facility] Mobile Home Draw [address] [place] [address] 10/19/2023 4:20 PM EST Office Visit Family [address] [place] [phone] Zenobia Lyon MD [address] [place] [address] [place] [address] 11/01/2023 9:10 AM EST Laboratory Lab Mobile Phlebotomy [facility] [address] [place] [address] [facility] Mobile Home Draw [address] [place] [address] 11/15/2023 9:10 AM EST Laboratory Lab Mobile Phlebotomy [facility] [address] [place] [address] [facility], [facility] Mobile Home Draw [address] [place] [address] 11/29/2023 9:10 AM EST Laboratory Lab Mobile Phlebotomy [facility] [address] [place] [address] G[facility], [facility] Mobile Home Draw [address] [place] [address] 12/13/2023 9:10 AM EDT Laboratory Lab Mobile Phlebotomy [facility] [address] [place] [address] [facility] Mobile Home Draw [address] [place] [address] 01/26/2024 4:20 PM EDT Office Visit Family Medicine [address] [place] [phone] Zenobia Lyon MD [address] [place] [address] [place] [address] 03/07/2024 1:00 PM EDT Office Visit Cardiology [address] [place] [address] Chris Choudhury PA-C [address] [place] [address] Scheduled Procedures Name Priority Associated Diagnoses Date/Ti [...] Additional history exists CKD PHOS USE SMARTSET 15069 07/25/202407/03, 09/07/2022, 09/05/2022, Additional history exists O2 ASSESSMENT COMPLETED IN PAST YEAR FOR COPD 08/28/2024 08/28/2023 CKD HGB USE SMARTSET 06044 09/06/202409/06, 09/06/2023, 08/21/2023, Additional history exists COLONOSCOPY-EVERY [...] this encounter Medical Devices Implanted Type Area [employer] Device Identifier Shelf Expiration Date Model / Serial / Lot Screw T2 Alpha Lock 5x47.5mm - [id number] Implanted:Qty: 1 on 09/06/2022 by Sean Silva MD at [facility] Left: Leg Upper RICHELLE : TRAUMA 06/01/2032 [id number] / / [id number] documented as of this encounter Visit Diagnoses Diagnosis Bilateral impacted cerumen- Primary Impacted cerumen documented in this encounter Advance Directives Documents on File Type Date Recorded Patient Machine Assistant Expl anation POLST 10/17/2022 [place] OR DERS [...] Agen t (per Health Care Power of Burlap Roll Coverer document) Reji Tello Dotts Adult Child First Alterna te Health Care Agent (per Health Care Power of Burlap Roll Coverer document) Bowen Tello Adult Child First Alternate Health Care Agent (per Health Care Power of Burlap Roll Coverer document) Care Teams Green Building Materials Designer Relationship Specialty Start Date End Date Zenobia Lyon MD [address] [place] [address] [place] [address] PCP - General Family Medicine 05/22/23 documented as of this encounter
--- OUTSIDE RECORDS SUMMARY | 2023-09-14 08:03 | External Medical Summary ---
Author Name Unknown Address Unknown Organization [facility] [address] [place] [address] Laboratory Report Ordering Provider Test Date Status DEB BULL 09/06/2023 09:29:00 Final Observation Date Value Abnormality Reference (Units ) Status Nucleated erythrocytes/100 leukocytes [Ratio] in Blood by Automated count 09/06/2023 09:29:00 Final Performing Location [facility] [address] [place] [address]
--- OUTSIDE RECORDS SUMMARY | 2023-09-14 08:04 | External Medical Summary | Summary of Care ---
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); Advanced care planning/counseling discussion Allergies Active Allergy Reactions Criticality Noted Date Comments James Inhibitors 09/10/2002 cough on prinivil Hydrocodone 09/05/2022 Family states AMS change when taken Prednisone 05/26/2011 Blisters in throat Sulfa Antibiotics 03/19/2001 dysurea documented as of this encounter (statuses as of 08/28/2023) Medications Medication Sig Dispensed Refills Start Date [...] 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 ([facility]) Use to test blood sugar as needed [...] 75 MG Oral Tablet (pLAVix)Indications: Atherosclerosis of [place] coronary artery of [place] heart without angina pectoris Take 1 Tablet [...] the morning. 126 Tablet 2 3 Active valACYclovir HCl 1 GM Oral Tablet (Valtrex) Take 1 Tablet by mouth in the morning and 1 Tablet before bedtime. Do all this for 7 days. For 7 days for first episode. 14 Tablet 0 3 08/28/20 23 Discontinu ed(Medicat ion List Clean Up) documented as of this encounter (statuses as of 08/28/2023) Active Problems Patient Care Coordination No te [...] OF UNSPECIFIED TYPE OF VESSEL, [place] OR GRAFT Last Assessment & Plan: Stable. 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 documented as of this encounter (statuses as of 08/28/2023) Resolved Problems Problem Noted Date Diagnosed Date [...] without hematuria 05/30/2022 01/24/2023 Overview: Xavier to [facility] 04/20-04/29 urosepsis multi drug resistant [...] as of this encounter (statuses as of 08/28/2023) Immunizations Name Administration Dates Next Due COVID-19 [...] Sign Reading Time Taken Comments Blood Pressure 178/78 08/28/2023 10:55 AM EST just took BP meds 10 minutes ago Pulse 70 08/28/2023 10:55 AM EST Temperature 37.2 C (99 F) 08/28/2023 10: 55 AM EST Respiratory Rate 20 08/28/2023 10:5 5 AM EST Oxygen Saturation 95% 08/28/2023 10: 55 AM EST Inhaled Oxygen Concentration - - Weight - [...] as of this encounter Progress Notes * Belinda Vazquez, [facility] Top Tile Decorator - 08/28/2023 12:50 PM EST Telemedicine visit: Yes Patient location: HOME. I was not in a hospital or clinic location. After connecting through televideo, patient was verified with two unique identifiers. Patient (or authorized legal account representative)was then informed that this was a Telemedicine visit and being conducted confidentially over securelines. Methods to assure confidentiality were taken. Patient acknowledged consent and understandingof privacy and security of the Telemedicine visit. The patient agreed to participate. [facility] Top Tile Decorator (MARITZA) documentation: [facility] home visit for telemed with [facility] provider. See completed surveys. Following visit, expressed concern re: patients declining condition. States family did not tell patient about the diagnosis of multiple myleoma when it was discovered in September 2023. Questioning if she should tell patient or not. Encouraged to express her feelings. Provided emotional support and reassurance. Advised to continue with their day to day activities as they have been, and call [facility] with any red flags symptoms or questions/concerns. Advised that palliative care will follow up to discuss goals of care moving forward. verbalized understanding and appreciation. * Monica Early CRNP - 08/28/2023 9:34 AM EST Images from the original note were not included. [facility] Problem Oriented Charting Provider Visit Date: 08/28/2023 Time: 9:35 AM [facility] Sub-Program: Primary Care at Home [facility] Episode Start Date: No linked episodes Assessment and Plan #1 Multiple myeloma not having achieved remission (HCC) (Primary) Assessment & Plan: Continues with need for frequent transfusion - recent ED visit d/t HGB 5.6 - following with oncology. 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 Patient needs HV with palliative provider as goals of care need readdressed with continued progression of disease. Check-out note: Please help in scheduling the recommended follow up as listed below: [facility] AP palliative (see care team) within approx 2-4 weeks for Home Visit Scheduled appointments in the next 60 days: Future Appointments-next 60 days Date/Time Provider Specialty Dept Phone 08/28/2023 10:00 AM Belinda Vazquez, [facility] Top Tile Decorator; Monica Early CRNP [facility] [phone] 08/29/2023 3:30 PM (Arrive by 3:15 PM) Chris Choudhury PA-C Cardiology [phone] 09/06/2023 9:10 AM [facility] Laboratory Processing [phone] 09/20/2023 9:10 AM [facility] Laboratory Processing [phone] 09/29/2023 10:00 AM Lila Brownlee RN [facility] [phone] 10/04/2023 9:10 AM [facility] Laboratory Processing [phone] 10/18/2023 9:10 AM [facility] Laboratory Processing [phone] 10/19/2023 4:20 PM (Arrive by 4:05 PM) Zenobia Lyon MD Family Medicine [phone] 11/01/2023 9:10 AM [facility] Laboratory Processing [phone] 11/15/2023 9:10 AM [facility] Laboratory Processing [phone] 11/29/2023 9:10 AM [facility] Laboratory Processing [phone] 12/13/2023 9:10 AM [facility] Laboratory Processing [phone] 01/26/2024 4:20 PM (Arrive by 4:05 PM) Zenobia Lyon MD Family Medicine [phone] Subjective Subjective Is this a Telemedicine Visit? Yes, Patient location: HOME. I was not in a hospital or clinic location. After connecting through [employer], patient was verified with two unique identifiers. Patient (or authorized legal account representative) was then informed that this was a Telemedicine visit and being conducted confidentially over secure lines. Methods to assure confidentiality were taken. Patient acknowledged consent and understanding of privacy and security of the Telemedicine visit. The patient agreed to participate. Reason For [facility] Visit: Transition of Care Current Concerns: Marshall Tello Sr. is a 88 year old male seen today for a [facility] provider visit. Patient was recently admitted to [facility]. The date of discharge was 07/21/23 He was admitted for severe anemia and SOB in the context of multiple myeloma dependant on blood transfusions and CHF. He was admitted overnight and received 4 units PRBC with IV lasix in between units [id number]/[id number] states he's doing OK at home; sleeps quite a lot. Family understands his multiple myeloma is terminal and that the increased need for transfusions indicates progression. They all want to continue treating for now. 08/22- [facility]- ED- low HGB requiring transfusion- discussion on goal d/t transfusion dependence- family to discuss with heme/onc. Today's concerns are: [place] ears are full of wax - has ENT appt today for ear cleaning- MARITZA had to write everything down for patient to answer present for visit Per spouse does not feel recent transfusion "perked him up as it usually does" Continues with SOB- no need for inhalers - O@ at night only - spo2 remains over 95 - denies pain or feeling SOB - sleeps a lot- able to determine when fatigue worsens and requests lab draw. - labs ordered every other Monday via [facility] palliative med - not currently on meds for cancer - does not take wixela routinely Additional Review of Systems Constitutional: Negative for activity change (cane for ambualtion), appetite change and chills. Respiratory: Positive for shortness of breath (COLIN at baseline - feels slightly worse patient feels at baseline). Cardiovascular: Negative for chest pain, palpitations and leg swelling. Gastrointestinal: Negative for diarrhea, nausea and vomiting. Genitourinary: Negative for difficulty urinating and hematuria. Musculoskeletal: Negative. Skin: Negative for wound. Neurological: Positive for speech difficulty and weakness (generalized). Psychiatric/Behavioral: Negative for confusion. Objective Objective Vitals: 08/28/23 1055 Temp: 37.2 C (99 F) Pulse: 70 Resp: 20 SpO2: 95% BP: 178/78 BP Readings from Last 3 Encounters: 08/28/23 178/78 07/25/23 122/60 07/23/23 154/64 Wt Readings from Last 3 Encounters: 07/25/23 90.3 kg (199 lb) 07/19/23 90.7 kg (200 lb) 05/03/23 90.7 kg (200 lb) Last Weights: Wt Readings from Last 3 Encounters: 07/25/23 90.3 kg (199 lb) 07/19/23 90.7 kg (200 lb) 05/03/23 90.7 kg (200 lb) Last BPs: BP Readings from Last 4 Encounters: 08/28/23 178/78 07/25/23 122/60 07/23/23 154/64 07/19/23 120/60 Physical Exam Constitutional: General: He is not in acute distress. Appearance: He is not ill-appearing. Cardiovascular: Rate and Rhythm: Normal rate. Rhythm irregular. Pulmonary: Effort: Pulmonary effort is normal. Breath sounds: No wheezing, rhonchi or rales. Musculoskeletal: Right lower leg: No edema. Left lower leg: No edema. Skin: General: Skin is warm and dry. Neurological: Mental Status: He is alert and oriented to person, place, and time. Mental status is at baseline. Psychiatric: Mood and Affect: Mood normal. Behavior: Behavior normal. Lab Review: I have reviewed the following results: BMP results Recent Labs Units 08/21/23 1245 07/25/23 1619 07/12/23 0818 SODIUM - [facility] mmol/L 142 141 145 POTASSIUM - [facility] mmol/L 4.2 4.2 4.3 CHLORIDE - [facility] mmol/L 101 101 103 CO2 - [facility] mmol/L 25 24 24 CREATININE - [facility] mg/dL 1.5* 1.4* 1.5* BUN - [facility] mg/dL 41* 26* 32* CBC results Recent Labs Units 08/21/23 1245 08/09/23 0828 07/25/23 1619 WBC AUTO - [facility] K/uL 4.88 3.71* 4.69 HGB - [facility] g/dL 5.7* 8.1* 8.6* HCT - [facility] % 20.1* 28.1* 28.6* PLATELET AUTO - [facility] K/uL 188 200 247 HbA1c results Recent Labs Units 01/25/23 0806 09/06/22 0324 01/14/22 1627 HEMOGLOBIN A1C - [facility] % 9.3* 7.8* 6.4* Medication Review "Bottles Out" medication review performed today and medication list in EMR updated ARNULFO Laughlin 9:35 AM *Communication sent to PCP (via [facility]ofax if [facility]), [facility] Care Team members,relevant Specialty Care Physicians* documented in this encounter Miscellaneous Notes * ACP (Advance Care Planning) - Monica Early CRNP - 08/28/2023 10:53 AM EST Images from the original note were not included. Patient-centered Communication 08/28/2023 Location: Home Individual(s) present for conversation: Spouse Decisions Synopsis SmartLink Most Recent Value [...] SmartLink Most Recent Value Past ~10 years 08/28/2023 10:53 Additional Comments Additional Comments: patient unable to hear today with ear wax- per sposue she recalls ed conversation about progessing disease and transfusion dependence but has not discussed with patient and states plan is to continue with ongoing transfusions- no oncology appt at this time - will defer to [facility] palliative med 08/28/2023 patient unable to hear today with ear wax- per sposue she recalls ed conversation about progessing disease and transfusion dependence but has not discussed with patient and states plan is to continue with ongoing transfusions- no oncology appt at this time - will defer to [facility] palliative med Discerning What Matters Most to the Patient: [...] vegetable" (define below) 05/30/2022 Source: Content from [employer] Program Aligning Care With What Matters Most: Synopsis [employer]Human Patients Most Recent Value Past ~10 years 03/24/2023 13:11 Aligning Care With What Matters Most In their own words, the patient's understanding of their prognosis: does not contribute due to dementia 03/24/2023 does not contribute due to dementia Interventions/Choices: CPR;Intubation/mechanical ventilation;Hospice;Blood transfusion 12/30/2022 Rationale for Decisions Synopsis [email or web address] Most Recent Value Past ~10 years 12/30/2022 13:43 Hospice Their goals for Hospice treatment are: maintain quality of life 12/30/2022 maintain quality of life Source: Content from [employer] Program ARNULFO Laughlin * Assessment & Plan Note - Monica Early CRNP - 08/28/2023 9:45 AM EST Associated Problem(s): 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 documented in this encounter Plan of Treatment Upcoming Encounters Date Type Department Care Team (Late st Contact Info) Description 08/29/2023 3:30 PM EST Office Visit Cardiology [address] [place] [address] Chris Choudhury PA-C [address] [place] [address] 09/06/2023 9:10 AM EST Laboratory [facility] [address] [place] [address] [facility] Draw [address] [place] [address] 09/20/2023 9:10 AM EST Laboratory [facility] [address] [place] [address] [facility] Draw [address] [place] [address] 09/29/2023 10:00 AM EST Home Visit [facility] [address] [place] [address] Lila Brownlee RN [address] [place] [address] 10/04/2023 9:10 AM EST Laboratory [facility] [address] [place] [address] [facility] Draw [address] [place] [address] 10/18/2023 9:10 AM EST Laboratory [facility] [address] [place] [address] [facility] Draw [address] [place] [address] 10/19/2023 4:20 PM EST Office Visit [address] [phone] Zenobia Lyon MD [address] [place] [address] [place] [address] 11/01/2023 9:10 AM EST Laboratory Lab Mobile Phlebotomy C [address] [place] [address] [facility] Home Draw [address] [place] [address] 11/15/2023 9:10 AM EST Laboratory Lab Mobile Phlebotomy C [address] [place] [address] [facility] Draw [address] [place] [address] 11/29/2023 9:10 AM EST Laboratory Lab Mobile Phlebotomy [facility] [address] [place] [address] Gm, [facility] Home Draw [address] [place] [address] 12/13/2023 9:10 AM EDT Laboratory Lab Mobile Phlebotomy [facility] [address] [place] [address] [facility], [facility] Home Draw [address] [place] [address] 01/26/2024 4:20 PM EDT Office Visit [address] [place] [phone] Zenobia Lyon MD [address] [place] [address] [place] [address] Scheduled Procedures Name Priority Associated Diagnoses Date/Ti [...] Additional history exists CKD PHOS USE SMARTSET 79286 07/25/202407/03, 09/07/2022, 09/05/2022, Additional history exists CKD HGB USE SMARTSET 63077 08/21/202408/21, 08/21/2023, 08/09/2023, Additional history exists COLONOSCOPY-EVERY [...] this encounter Medical Devices Implanted Type Area Spindle Repairer Device Identifier Shelf Expiration Date Model / Serial / Lot Screw T2 Alpha Lock 5x47.5mm - [id number] Implanted:Qty: 1 on 09/06/2022 by Sean Silva MD at [facility] Left: Leg Upper RICHELLE : TRAUMA 06/01/2032 [id number] / / [id number] documented as of this encounter Visit Diagnoses Diagnosis Multiple myeloma not having achieved remission (HCC)- Primary Multiple myeloma, without mention of having achieved remission 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 Advanced care planning/counseling discussion Other specified counseling documented in this encounter Advance Directives Documents on File Type Date Recorded Patient Loan Officer Expl anation POLST 10/17/2022 [place] DERS [...] Agen t (per Health Care Power of Athletic Instructor document) Reij Tello Dotts Adult Child First Alterna te Health Care Agent (per Health Care Power of Athletic Instructor document) Bowen Tello Adult Child First Alternate Health Care Agent (per Health Care Power of Athletic Instructor document) Care Teams Mica Builder Relationship Specialty Start Date End Date Zenobia Lyon MD [address] [place] [address] [place] [address] PCP - General Family Medicine 05/22/23 documented as of this encounter
--- OUTSIDE RECORDS SUMMARY | 2023-09-14 08:04 | External Medical Summary | Summary of Care ---
Author Name Unknown Organization [facility] Address [address] [place] [address] Phone [phone] Care Team Providers Care Duplicating Machine Mechanic Name Role Phone Zenobia Lyon MD Primary Care Provide r Reason for Visit * Reason Onset Date Comments Appointment 08/29/2023 ENT Encounter Details Date Type Department Care Team (Late st Contact Info) Description 08/29/2023 Telephone Cardiology, [facility] [address] [place] [address] Chris Choudhury PA-C [address] [place] [address] Appointment (ENT /) Allergies Active Allergy Reactions Criticality Noted Date Comments James Inhibitors 09/10/2002 cough on prinivil Hydrocodone 09/05/2022 Family states AMS change when taken Prednisone 05/26/2011 Blisters in throat Sulfa Antibiotics 03/19/2001 dysurea documented as of this encounter (statuses as of 08/29/2023) Medications Medication Sig Dispensed Refills Start Date [...] 75 MG Oral Tablet (pLAVix)Indications: Atherosclerosis of [place] coronary artery of [place] heart without angina pectoris Take 1 Tablet [...] as of this encounter (statuses as of 08/29/2023) Active Problems Patient Care Coordination No te [...] control in clinical research program 03/25/2015 Overview: [employer] Product Surveillance Registry PI: Kylah Lilly IV, [...] CORONARY ATHEROSCLEROSIS OF UNSPECIFIED TYPE OF VESSEL, [place] OR GRAFT Last Assessment & Plan: Stable. 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 documented as of this encounter (statuses as of 08/29/2023) Resolved Problems Problem Noted Date Diagnosed Date [...] without hematuria 05/30/2022 01/24/2023 Overview: Xavier to [facility] 04/20-04/29 urosepsis multi drug resistant [...] as of this encounter (statuses as of 08/29/2023) Immunizations Name Administration Dates Next Due COVID-19 mRNA, LNP-s, No Pre serve, 2-Dose Series (Moderna) 08/24/2021,12/07/2020,11/09/2020 COVID-19, MRNA-LNP, 23-24, P F, 30 MCG/0.3 mL, 12 YRS AND ABOVE, IM ([employer]-Comirnaty) 07/19/2023 Covid-19, Mrna, Lnp-s, Pf, B ivalent, [...] Miscellaneous Notes * Telephone Encounter - Shaina Mayfield OSA - 08/29/2023 4:11 PM EST Bill saw Chris Choudhury today in the office, and he wants [...] 9:10 AM EST Laboratory Lab Mobile Ph[facility] [address] [place] [address] [facility] Mobile Home Draw [address] [place] [address] 09/20/2023 9:10 AM EST Laboratory Lab Mobile Phlebot[facility] [address] [place] [address] [facility] Home Draw [address] [place] [address] 09/29/2023 10:00 AM EST [facility] Visit [facility] [place] [address] [address] Lila Brownlee RN [address] [facility] [place] [address] 10/04/2023 9:10 AM EST Laboratory [facility] [address] [place] [address] [facility] Draw [address] [place] [address] 10/18/2023 9:10 AM EST Laboratory [facility] [address] [place] [address] [facility] Draw [address] [place] [address] 10/19/2023 4:20 PM EST Office Visit [address] [place] [address] Zenobia Lyon MD [address] [place] [address] [place] [address] 11/01/2023 9:10 AM EST Laboratory [facility] [address] [place] [address] [facility] Draw [address] [place] [address] 11/15/2023 9:10 AM EST Laboratory [facility] [address] [place] [address] [facility] Draw [address] [place] [address] 11/29/2023 9:10 AM EST Laboratory [facility] [address] [place] [address] [facility] Home Draw [address] [place] [address] 12/13/2023 9:10 AM EDT Laboratory Lab Mobile Phlebotomy [facility] [address] [place] [address] [facility], [facility] Mobile Home Draw [address] [place] [address] 01/26/2024 4:20 PM EDT Office Visit Family Medicine [address] [place] [phone] Zenobia Lyon MD [address] [place] [address] [place] [address] 03/07/2024 1:00 PM EDT Office Visit Cardiology [address] [place] [address] Chris Choudhury PA-C [address] [place] [address] Scheduled Procedures Name Priority Associated Diagnoses Date/Ti [...] Additional history exists CKD PHOS USE SMARTSET 05803 07/25/202407/03, 09/07/2022, 09/05/2022, Additional history exists CKD HGB USE SMARTSET 30484 08/21/202408/21, 08/21/2023, 08/09/2023, Additional history exists COLONOSCOPY-EVERY [...] this encounter Medical Devices Implanted Type Area Scan Coordinator Device Identifier Shelf Expiration Date Model / Serial / Lot Screw T2 Alpha Lock 5x47.5mm - [id number] Implanted:Qty: 1 on 09/06/2022 by Sean Silva MD at [facility] Left: Leg Upper RICHELLE : TRAUMA 06/01/2032 [id number] / / [id number] documented as of this encounter Advance Directives Documents on File Type Date Recorded Patient Pastry Cook Helper Expl anation POLST 10/17/2022 [place] OR DERS FOR LIFE-SUSTAINING TREATMENT POLST 09/10/2022 [place] DERS FOR LIFE-SUSTAINING TREATMENT Latest Code [...] Agen t (per Health Care Power of Virtualization Consultant document) Reji Tello Dotts Adult Child First Alterna te Health Care Agent (per Health Care Power of Virtualization Consultant document) Bowen Tello Adult Child First Alternate Health Care Agent (per Health Care Power of Virtualization Consultant document) Care Teams Duplicating Machine Mechanic Relationship Specialty Start Date End Date Zenobia Lyon MD [address] [place] [address] [place] [address] PCP - General Family Medicine 05/22/23 documented as of this encounter
--- OUTSIDE RECORDS SUMMARY | 2023-09-14 08:04 | External Medical Summary | Summary of Care ---
Author Name Unknown Organization [facility] Address [address] [place] [address] Phone [phone] Care Team Providers Care Medical Facilities Section Director Name Role Phone Zenobia Lyon MD Primary Care Provide r Reason for Visit * Reason Comments Follow Up 6 month follow up. [facility] 08/22-08/23/23 and 07/20-07/21/23. Denies chest pain, palpitations, SOB, dizziness and edema. Encounter Details Date Type Department Care Team (Late st Contact Info) Description 08/29/2023 3:30 PM EST Office Visit Cardiology [address] [place] [address] Chris Choudhury PA-C [address] [place] [address] Persistent atrial fibrillation (HCC)*; Ischemic cardiomyopathy; Chronic diastolic CHF (congestive heart failure) (HCC); Tachy-lorna syndrome (HCC); Biventricular implantable cardioverter-defibril lator in situ; Atherosclerosis of yocha dehe coronary artery of yocha dehe heart without angina pectoris; Nonrheumatic aortic valve insufficiency; Dyslipidemia, goal LDL below 70 Allergies Active Allergy Reactions Criticality Noted Date [...] 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 ([facility]) Use to test blood sugar as needed 100 Strip 3 05/20/2022 Active OneTouch UltraSoft LancetsIndications:T ype 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 ([facility]) Use to test blood sugar as needed [...] of yocha dehe heart without angina pectoris Take 1 Tablet [...] & Plan: GFR 39 Cr 1.7 on 8/10/22 Continue lasix at current dose. Euvolemic today [...] ATHEROSCLEROSIS OF UNSPECIFIED TYPE OF VESSEL, UPPER MATTAPONI OR GRAFT Last Assessment & Plan: Stable. [...] without hematuria 05/30/2022 01/24/2023 Overview: Xavier to [facility] 04/20-04/29 urosepsis multi drug resistant E. [...] Sign Reading Time Taken Comments Blood Pressure 134/58 08/29/2023 3:28 PM EST Pulse 80 08/29/2023 3:28 PM EST Temperature - - Respiratory Rate 16 08/29/2023 3:28 PM EST Oxygen Saturation - - Inhaled Oxygen Concentration - - Weight 91.1 kg (200 lb 12.8 oz) 08/29/2023 3:28 PM EST Height - - Body Mass Index 28.01 12/05/2022 3:18 PM EST documented in this [...] Progress Notes * Chris Choudhury PA-C - 08/29/2023 3:33 PM EST History of Present Illness: Marshall Parminder Tello Sr. Is a 88-year-old male who returns today for cardiology follow-up. Patient last seen in this office by the undersigned in January 2023. Multiple interim hospitalizations with symptomatic anemia noted, receiving multiple transfusions, 16 Units of PRBC's between April 20, 2023 and August 22, 2023. Patient with multiple myeloma, not a candidate for treatment. No signs of GI bleeding. Accompanied by his son Bowen. Hard of hearing. + Short-term memory impairment. Sleeping more throughout the day. No chest pain. No palpitations. Dyspnea worsens when in need of transfusion. No orthopnea, PND, or lower extremity peripheral edema. No syncope. No melena or h ematochezia. Problem List: 1. Atherosclerotic coronary artery disease [...] in March2015 generator exchange April 21, 2021 [employer], [employer] MRI QUAD CRTD 6. Moderate aortic insufficiency. 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 Longstanding persistent atrial fibrillation ([facility]) I48.11 Ischemic cardiomyopathy I25.5 Aortic valve insufficiency I35.1 Automatic implantable cardioverter-defibrillator in situ Z95.810 Encounter for examination for normal comparison and control in clinical research program Z00.6 Gastroesophageal reflux disease with esophagitis K21.00 Type 2 diabetes mellitus with diabetic nephropathy, without long-term current use of insulin ([facility]) E11.21 Sensorineural hearing loss (SNHL) of both ears H90.3 Hx of nonmelanoma skin cancer Z85.828 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, R31.9 Chronic atrial fibrillation ([facility]) I48.20 Primary open-angle glaucoma, left eye, mild stage H40.1121 Skin lesion L98.9 DISH (diffuse idiopathic skeletal hyperostosis) M48.10 Chronic obstructive pulmonary disease ([facility]) J44.9 Other specified peripheral vascular diseases ([facility]) I73.89 Type 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 ([facility]) E11.51 DM type 2 with diabetic peripheral neuropathy ([facility]) E11.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 ([facility]) I13.0, I50.42, N18.31 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 N18.31, D63.1 Iron deficiency anemia D50.9 Type 2 diabetes mellitus with stage 3a chronic kidney disease, without long-term current use of insulin ([facility]) E11.22, N18.31 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[facility]) G30.1, F02.80 Multiple myeloma ([facility]) C90.00 Infrarenal abdominal aortic aneurysm (AAA) without rupture ([facility]) 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 ([facility]) I50.42 Protein-calorie malnutrition ([facility]) E46 Hemorrhagic disorder due to extrinsic circulating anticoagulants ([facility]) D68.32 Review of patient's allergies indicates: Allergen Reactions [...] 1 Drop in the morning. 2.5mL 0 Magnesium Oxide 400 MG Oral Tablet [...] minutes before a meal.. 30 Tablet 5 MEDICAL INSTRUCTIONS 1) obtain a I can [...] mouth in the morning. 126 Tablet 2 Ventolin HFA 108 (90 Base) MCG/ACT Inhalation Aerosol Solution Inhale by mouth 2 Puffs 4 times a day . 18 g 0 Ondansetron HCl 4 MG Oral Tablet Take 1 Tablet by mouth every 6 hours as needed for Nausea. 20 Tablet 0 Fluticasone-Salmeterol 250-50 MCG/ACT Inhalation Aerosol Powder Breath Activated ([employer] Inhub) Inhale 1 Puff by mouth in the morning and 1 Puff before bedtime. 3 Each 3 No current facility-administered medications for this visit. OBJECTIVE/PHYSICAL EXAMINATION: BP 134/58 | Pulse 80 | Resp 16 | Wt 91.1 kg (200 lb 12.8 oz) | BMI 28.01 kg/m | BSA 2.14 m Examined in a chair General: No acute distress. Hard of hearing. Head: Normocephalic, no masses, lesions, tenderness or abnormalities Eyes: Sclera clear Neck: No JVD. Lungs: Clear to auscultation Cardiac: RRR, paced. 2/6 systolic murmur. No diastolic murmur. Abdomen: +BS. Soft. No organomegaly. Extremities: No edema, no cyanosis Pulses posterior tibial 2+/4 bilaterally Neuro: grossly normal exam Data: Echocardiogram June [...] present. The aortic root is mildly enlarged. June 19, 2023 device interrogation. Appropriate function. Remaining longevity: 6.1 years. Mode: VVIR. Lower rate 70 bpm. Chronic atrial fibrillation. BiV paced 98%. Optivol below threshold. July 20, 2023 TTE Interpretation Summary ([facility]): Ejection fraction 60 to 65%. Mild concentric LVH. Severely dilated left atrium. Moderate aortic regurgitation. Mild aortic valve stenosis. Moderatemitral annular calcification. Moderate mitral regurgitation. No mitral valve stenosis. Mild tricuspid regurgitation. Estimated systolic pulmonary pressure 60 mmHg. ASSESSMENT: Stable atherosclerotic coronary artery disease Diffuse cardiomyopathy, resolved, compensated. Chronic atrial fibrillation, with contraindications to anticoagulation. Status post dual-chamber pacemaker with subsequent later upgrade to biventricular device in March 2015 generator exchange April 21, 2021 [employer], [employer] MRI QUAD CRTD Moderate aortic insufficiency. Moderate asthmatic lung disease with nocturnal oxygen supplementation Past gross hematuria, status post prostatic ablation negative cystoscopy August 2018 Declining mental status and progressive short term memory impairment Multiple myeloma, managed conservatively, transfusion dependent Iron deficiency Chronic renal insufficiency RECOMMENDATIONS/PLAN: Continue the current cardiac regimen as prescribed, without change. General measures advised. [place] touched upon. Routine cardiology follow-up. ER with emergencies. Chris Choudhury PA-C Department of Cardiology documented in this encounter Nursing Notes * Akin Ballesteros LPN - 08/29/2023 3:21 PM EST Patient identified by full name and date of Chief Complaint Patient presents with Follow Up 6 month follow up. [facility] 08/22-08/23/23 and 07/20-07/21/23. Denies chest pain, palpitations, SOB, dizziness and edema. Examination Room: 3 Name: Marshall Tello Sr. Date of : (1935). Reason for Visit: 6 month follow up Interim Hospitalization(s): [facility] 08/22-08/23/23 and 07/20-07/21/23. Problems/Concerns: See chief complaint Chest Pain/SOB: See chief complaint [facility] Discussed: Yes [facility] is a way you can [...] 9:10 AM EST Laboratory Lab Mobile Ph[facility]botomy [facility] [address] [place] [address] [facility], [facility] [address] [place] [address] 09/20/2023 9:10 AM EST Laboratory Lab [facility] [address] [place] [address] [facility], [facility] [address] [place] [address] 09/29/2023 10:00 AM EST Home Visit [facility] at [place], [facility] [address] [facility] [place] [address] Lila Brownlee RN [address] [place] [address] 10/04/2023 9:10 AM EST Laboratory Lab [facility] [address] [place] [address] [facility] [address] [place] [address] 10/18/2023 9:10 AM EST Laboratory Lab [facility] [address] [place] [address] [facility] [address] [place] [address] 10/19/2023 4:20 PM EST Office Visit Family [address] [phone] Zenobia Lyon MD [address] [place] [address] [place] [address] 11/01/2023 9:10 AM EST Laboratory Lab [facility] [address] [place] [address] [facility] [address] [place] [address] 11/15/2023 9:10 AM EST Laboratory Lab [facility] [address] [place] [address] [facility] [address] [place] [address] 11/29/2023 9:10 AM EST Laboratory Lab [facility] [address] [place] [address] [facility] [address] [place] [address] 12/13/2023 9:10 AM EDT Laboratory Lab [facility] [address] [place] [address] [facility], [facility] [address] [place] [address] 01/26/2024 4:20 PM EDT Office Visit Family Medicine [address] [place] [phone] Zenobia Lyon MD [address] [place] [address] [place] [address] 03/07/2024 1:00 PM EDT Office Visit Cardiology [address] [place] [address] Chris Choudhury PA-C [address] [place] [address] Scheduled Procedures Name Priority Associated Diagnoses Date/Ti [...] Additional history exists CKD PHOS USE SMARTSET 43306 07/25/202407/03, 09/07/2022, 09/05/2022, Additional history exists CKD HGB USE SMARTSET 50826 08/21/202408/21, 08/21/2023, 08/09/2023, Additional history exists COLONOSCOPY-EVERY [...] this encounter Medical Devices Implanted Type Area Hand Reamer Device Identifier Shelf Expiration Date Model / Serial / Lot Screw T2 Alpha Lock 5x47.5mm - [id number] Implanted:Qty: 1 on 09/06/2022 by Sean Silva MD at [facility] Left: Leg Upper RICHELLE : TRAUMA 06/01/2032 [id number] / / [id number] documented as of this encounter Visit Diagnoses Diagnosis Persistent atrial fibrillation (HCC)- Primary Atrial fibrillation Ischemic cardiomyopathy Other specified forms of chronic ischemic heart disease Chronic diastolic CHF (congestive heart failure) (HCC) Chronic diastolic heart failure Tachy-lorna syndrome (HCC) Sinoatrial node dysfunction Biventricular implantable cardioverter-defibrillator in situ Atherosclerosis of yocha dehe coronary artery of yocha dehe heart without angina pectoris Nonrheumatic aortic valve insufficiency Aortic valve disorders Dyslipidemia, goal LDL below 70 Other and unspecified hyperlipidemia documented in this encounter Advance Directives Documents on File Type Date Recorded Patient Re Recording Mixer Expl anation POLST 10/17/2022 [place] D[place] [...] Agen t (per Health Care Power of Shorts Sifter document) Reji Tello Dotts Adult Child First Alterna te Health Care Agent (per Health Care Power of Shorts Sifter document) Bowen Tello Adult Child First Alternate Health Care Agent (per Health Care Power of Shorts Sifter document) Care Teams Medical Facilities Section Director Relationship Specialty Start Date End Date Zenobia Lyon MD [address] [place] [address] [place] [address] PCP - General Family Medicine 05/22/23 documented as of this encounter"
--- OUTSIDE RECORDS SUMMARY | 2023-09-14 08:04 | External Medical Summary | Summary of Care ---
Author Name Unknown Organization [facility] Address [address] [place] [address] Phone [phone] Care Team Providers Care Mill And Coal Transport Operator Name Role Phone Zenobia Lyon MD Primary Care Provide r Encounter Details Date Type Department Care Team (Late st Contact Info) Description 08/28/2023 10:00 AM EST Telemedicine [facility] [address] [place] [address] Monica Early CRNP [address] [place] [address] Belinda Vazquez Community Health Web Content Developer [address] [place] [address] [place]A Vasquez [phone] Multiple myeloma not having achieved remission (HCC)*; [...] vascular disease ([facility]) Use to test blood sugar as needed [...] 75 MG Oral Tablet (pLAVix)Indications: Atherosclerosis of [place] coronary artery of [place] heart without angina pectoris Take 1 Tablet [...] CORONARY ATHEROSCLEROSIS OF UNSPECIFIED TYPE OF VESSEL, CHILKOOT OR GRAFT Last Assessment & Plan: Stable. [...] 01/24/2023 Overview: Xavier to [facility] 04/20-04/29 urosepsis multi drug resistant [...] glenn ek & Lt. leg ; Rt. synagogue 07/0207/18/2002 07/15/2015 Dyslipidemia, goal to be determined [...] Progress Notes * Belinda Vazquez, Community Health Web Content Developer - 08/28/2023 12:50 PM EST Telemedicine visit: Yes Patient location: HOME. I was not in a hospital or clinic location. After connecting through televideo, patient was verified with two unique identifiers. 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 Methods to assure confidentiality were taken. Patient acknowledged consent and understandingof privacy and security of the Telemedicine visit. The patient agreed to participate. Community Health Web Content Developer (MARITZA) documentation: [facility] home visit for telemed with [facility] provider. See completed surveys. Following visit, [...] activities as they have been, and call [facility] with any red flags symptoms or questions/concerns. Advised that palliative care will follow up to discuss goals of care moving forward. verbalized understanding and appreciation. * Monica Early CRNP - 08/28/2023 9:34 AM EST Images from the original note were not included. [facility] Problem Oriented Charting Provider Visit Date: 08/28/2023 Time: 9:35 AM [facility] Sub-Program: Primary Care at Home [facility] Episode Start Date: No linked episodes Assessment [...] the recommended follow up as listed below: [facility] AP palliative (see care team) within approx 2-4 weeks for Home Visit Scheduled appointments in the next 60 days: Future Appointments-next 60 days Date/Time Provider Specialty Dept Phone 08/28/2023 10:00 AM Belinda Vazquez, [facility] Health Web Content Developer; Monica Early CRNP [facility] [phone] 08/29/2023 3:30 PM (Arrive by 3:15 PM) Chris Choudhury PA-C Cardiology [phone] 09/06/2023 9:10 AM [facility] Draw Laboratory Processing [phone] 09/20/2023 9:10 AM [facility] Laboratory Processing [phone] 09/29/2023 10:00 AM Lila Brownlee RN [facility] [phone] 10/04/2023 9:10 AM [facility] Laboratory Processing [phone] 10/18/2023 9:10 AM [facility] Draw Laboratory Processing [phone] 10/19/2023 4:20 PM (Arrive by 4:05 PM) Zenobia Lyon MD Family Medicine [phone] 11/01/2023 9:10 AM [facility] Laboratory Processing [phone] 11/15/2023 9:10 AM [facility] Laboratory Processing [phone] 11/29/2023 9:10 AM [facility] Draw Laboratory Processing [phone] 12/13/2023 9:10 AM [facility] Draw Laboratory Processing [phone] 01/26/2024 4:20 PM (Arrive by 4:05 PM) Zenobia Lyon MD Family Medicine [phone] Subjective Subjective Is this a Telemedicine Visit? Yes, Patient location: HOME. I was not in a hospital or clinic location. After connecting through DNS:Neto, patient was verified with two unique identifiers. 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 Methods to assure confidentiality were taken. Patient acknowledged consent and understanding of privacy and security of the Telemedicine visit. The patient agreed to participate. Reason For [facility] Visit: Transition of Care Current Concerns: Marshall Tello Sr. is a 88 year old male seen today for a [facility] provider visit. Patient was recently admitted to [facility]. The date of discharge was 07/21/23 He was admitted for severe anemia and SOB in the context of multiple myeloma dependant on blood transfusions and CHF. He was admitted overnight and received 4 units PRBC with IV lasix in between units 07/2511-NXX-Lquwcaau states he's doing OK at home; sleeps quite a lot. Family understands his multiple myeloma is terminal and that the increased need for transfusions indicates progression. They all want to continue treating for now. 08/22- [facility]- ED- low HGB requiring transfusion- discussion on goal d/t transfusion dependence- family to discuss with heme/onc. Today's concerns are: [place] ears are full of wax - has [...] - labs ordered every other Monday via [facility] palliative med - not currently on [...] sent to PCP (via autofax if [facility]), [facility] Health Care Team members,relevant Specialty Care Physicians* [...] at this time - will defer to [facility] palliative med 08/28/2023 patient unable to hear today with ear wax- per sposue she recalls ed conversation about progessing disease and transfusion dependence but has not discussed with patient and states plan is to continue with ongoing transfusions- no oncology appt at this time - will defer to [facility] palliative med Discerning What Matters Most [...] vegetable" (define below) 05/30/2022 Source: Content from [employer] Program Aligning Care With What Matters Most: Synopsis [employer]o Most Recent Value Past ~10 years 03/24/2023 13:11 Aligning Care With What Matters Most In their own words, the patient's understanding of their prognosis: does not contribute due to dementia 03/24/2023 does not contribute due to dementia Interventions/Choices: CPR;Intubation/mechanical ventilation;Hospice;Blood transfusion 12/30/2022 Rationale for Decisions Synopsis [employer] Most Recent Value Past ~10 years 12/30/2022 13:43 Hospice Their goals for Hospice treatment are: maintain quality of life 12/30/2022 maintain quality of life Source: Content from [employer] Program ARNULFO Laughlin * Assessment & Plan [...] 08/29/2023 3:30 PM EST Office Visit Cardiology [address] [place] [address] Chris Choudhury PA-C [address] [place] [address] 09/06/2023 9:10 AM EST Laboratory Lab Mobile Phlebotomy [facility] [address] [place] [address] [facility] Home Draw [address] [place] [address] 09/20/2023 9:10 AM EST Laboratory Lab Mobile Phlebot[facility] [address] [place] [address] [facility] Draw [address] [place] [address] 09/29/2023 10:00 AM EST Home Visit [facility] [address] [place] [address] Lila Brownlee RN [address] [place] [address] 10/04/2023 9:10 AM EST Laboratory Lab Mobile Phlebotomy [facility] [address] [place] [address] [facility] Draw [address] [place] [address] 10/18/2023 9:10 AM EST Laboratory Lab Mobile Phlebotomy [facility] [address] [place] [address] [facility] Draw [address] [place] [address] 10/19/2023 4:20 PM EST Office Visit [address] [phone] Zenobia Lyon MD [address] [place] [address] [place] [address] 11/01/2023 9:10 AM EST Laboratory Lab Mobile Phlebotomy C [address] [place] [address] [facility], [facility] Home Draw [address] [place] [address] 11/15/2023 9:10 AM EST Laboratory Lab Mobile Phlebotomy C [address] [place] [address] [facility] Home Draw [address] [place] [address] 11/29/2023 9:10 AM EST Laboratory Lab Mobile Phlebotomy [facility] [address] [place] [address] Gm, [facility] Home Draw [address] [place] [address] 12/13/2023 9:10 AM EDT Laboratory Lab Mobile Phlebotomy [facility] [address] [place] [address] [facility], [facility] Mobile Home Draw [address] [place] [address] 01/26/2024 4:20 PM EDT Office Visit [address] [place] [phone] Zenobia Lyon MD [address] [place] [address] [place] [address] Scheduled Procedures Name Priority Associated Diagnoses Date/Ti [...] Additional history exists CKD PHOS USE SMARTSET 79599 07/25/202407/03, 09/07/2022, 09/05/2022, Additional history exists CKD HGB USE SMARTSET 16303 08/21/202408/21, 08/21/2023, 08/09/2023, Additional history exists COLONOSCOPY-EVERY [...] this encounter Medical Devices Implanted Type Area Hooking Machine Operator Device Identifier Shelf Expiration Date Model / Serial / Lot Screw T2 Alpha Lock 5x47.5mm - [id number] Implanted:Qty: 1 on 09/06/2022 by Sean Silva MD at [facility] Left: Leg Upper RICHELLE : TRAUMA 06/01/2032 [id number] / / [id number] documented as of this encounter Visit Diagnoses Diagnosis Multiple myeloma not having achieved remission (HCC)- Primary Multiple myeloma, without mention of having achieved remission 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 Advanced care planning/counseling discussion Other specified counseling documented in this encounter Advance Directives Documents on File Type Date Recorded Patient Patient Account Liaison Expl anation POLST 10/17/2022 [place] DERS [...] Agen t (per Health Care Power of Event Security Officer document) Reji Tello Dotts Adult Child First Alterna te Health Care Agent (per Health Care Power of Event Security Officer document) Bowen Tello Adult Child First Alternate Health Care Agent (per Health Care Power of Event Security Officer document) Care Teams Mill And Coal Transport Operator Relationship Specialty Start Date End Date Zenobia Lyon MD [address] [place] [address] [place] [address] PCP - General Family Medicine 05/22/23 documented as of this encounter
--- OUTSIDE RECORDS SUMMARY | 2023-09-14 08:04 | External Medical Summary | Summary of Care ---
Author Name Unknown Organization [facility] Address [address] [place] [address] Phone [phone] Care Team Providers Care Utility Mechanic Name Role Phone Zenobia Lyon MD Primary Care Provide r Encounter Details Date Type Department Care Team (Late st Contact Info) Description 08/28/2023 10:00 AM EST Telemedicine [facility] [address] [address] Monica Early CRNP [address] [place] [address] Belinda Vazquez Community [facility] Railroad Wheels And Axle Inspector [address] [place] [address] [place] Vas[place] [phone] Multiple myeloma not having achieved remission (HCC)*; [...] peripheral vascular disease ([facility]) Use to test blood sugar as needed [...] hematuria 05/30/2022 01/24/2023 Overview: Xavier to [facility] 04/20-04/29 urosepsis multi drug resistant E. [...] glenn ek & Lt. leg ; Rt. taoism 07/0207/18/2002 07/15/2015 Dyslipidemia, goal to be determined [...] Progress Notes * Belinda Vazquez, Community Health Railroad Wheels And Axle Inspector - 08/28/2023 12:50 PM EST Telemedicine visit: Yes Patient location: HOME. I was not in a hospital or clinic location. After connecting through televideo, patient was verified with two unique identifiers. Patient (or authorized legal product support representative)was then informed that this was a Telemedicine visit and being conducted confidentially over securelines. Methods to assure confidentiality were taken. Patient acknowledged consent and understandingof privacy and security of the Telemedicine visit. The patient agreed to participate. Community [facility] Railroad Wheels And Axle Inspector (MARITZA) documentation: [facility] home visit for telemed with [facility] provider. See completed surveys. Following visit, expressed [...] activities as they have been, and call [facility] with any red flags symptoms or questions/concerns. Advised that palliative care will follow up to discuss goals of care moving forward. verbalized understanding and appreciation. Electronically signed by Belinda Vazquez Community [facility] Railroad Wheels And Axle Inspector at 08/28/2023 12:56 PM EST * Monica Early CRNP - 08/28/2023 9:34 [...] Dept Phone 08/28/2023 10:00 AM Belinda Vazquez, [facility] Railroad Wheels And Axle Inspector; Monica Early CRNP [facility] [phone] 08/29/2023 3:30 PM (Arrive by 3:15 PM) Chris Choudhury PA-C Cardiology [phone] 09/06/2023 9:10 AM [facility] Draw Laboratory Processing [phone] 09/20/2023 9:10 AM [facility] Draw Laboratory Processing [phone] 09/29/2023 10:00 AM Lila Brownlee RN [facility] [phone] 10/04/2023 9:10 AM [facility] Draw Laboratory Processing [phone] 10/18/2023 9:10 AM [facility] Draw Laboratory Processing [phone] 10/19/2023 4:20 PM (Arrive by 4:05 PM) Zenobia Lyon MD Family Medicine [phone] 11/01/2023 9:10 AM [facility] Draw Laboratory Processing [phone] 11/15/2023 9:10 AM [facility] Draw Laboratory Processing [phone] 11/29/2023 9:10 AM [facility] Draw Laboratory Processing [phone] 12/13/2023 9:10 AM [facility] Draw Laboratory Processing [phone] 01/26/2024 4:20 PM (Arrive by 4:05 PM) Zenobia Lyon MD Family Medicine [phone] Subjective Subjective Is this a Telemedicine Visit? Yes, Patient location: HOME. I was not in a hospital or clinic location. After connecting through [employer], patient was verified with two unique identifiers. Patient (or authorized legal product support representative) was then informed that this was [...] provider visit. Patient was recently admitted to [facility]. The date of discharge was 07/21/23 He was admitted for severe anemia and SOB in the context of multiple myeloma dependant on blood transfusions and CHF. He was admitted overnight and received 4 units PRBC with IV lasix in between units 07/2526-CTW-Vqyiusgv states he's doing OK at home; sleeps quite a lot. Family understands his multiple myeloma is terminal and that the increased need for transfusions indicates progression. They all want to continue treating for now. 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 Today's concerns are: [place] ears are full of wax - has [...] - labs ordered every other Monday via [facility] palliative med - not currently on meds [...] PCP (via autofax if [facility]), [facility] Care Team members,relevant Specialty Care Physicians* [...] at this time - will defer to [facility] palliative med 08/28/2023 patient unable to hear today with ear wax- per sposue she recalls ed conversation about progessing disease and transfusion dependence but has not discussed with patient and states plan is to continue with ongoing transfusions- no oncology appt at this time - will defer to [facility] palliative med Discerning What Matters Most to [...] vegetable" (define below) 05/30/2022 Source: Content from [employer] Program Aligning Care With What Matters Most: Synopsis SmartHiFiKiddo Most Recent Value Past ~10 years 03/24/2023 13:11 Aligning Care With What Matters Most In their own words, the patient's understanding of their prognosis: does not contribute due to dementia 03/24/2023 does not contribute due to dementia Interventions/Choices: CPR;Intubation/mechanical ventilation;Hospice;Blood transfusion 12/30/2022 Rationale for Decisions Synopsis [employer] Most Recent Value Past ~10 years 12/30/2022 13:43 Hospice Their goals for Hospice treatment are: maintain quality of life 12/30/2022 maintain quality of life Source: Content from [employer] [facility] Program ARNULFO Laughlin * Assessment & Plan [...] 08/29/2023 3:30 PM EST Office Visit Cardiology [address] [place] [address] Chris Choudhury PA-C [address] [place] [address] 09/06/2023 9:10 AM EST Laboratory Lab [facility] [address] [place] [address] [facility], [facility] Mobile Home Draw [address] [place] [address] 09/20/2023 9:10 AM EST Laboratory Lab [facility] Ph[facility]bot[facility] [address] [place] [address] [facility], [facility] Mobile Home Draw [address] [place] [address] 09/29/2023 10:00 AM EST Home Visit [facility] [address] [place] [address] Lila Brownlee RN [address] [place] [address] 10/04/2023 9:10 AM EST Laboratory Lab Mobile Phlebot[facility] [address] [place] [address] [facility], [facility] Mobile Home Draw [address] [place] [address] 10/18/2023 9:10 AM EST Laboratory Lab [facility] Ph[facility]bot[facility] [address] [place] [address] [facility], [facility] Home Draw [address] [place] [address] 10/19/2023 4:20 PM EST Office Visit [address] [phone] Zenobia Lyon MD [address] [place] [address] [place] [address] 11/01/2023 9:10 AM EST Laboratory Lab Mobile Phlebotomy C [address] [place] [address] Gm, Gm Mobile Home Draw [address] [place] [address] 11/15/2023 9:10 AM EST Laboratory Lab Mobile Phlebotomy C [address] [place] [address] [facility], [facility] Mobile Home Draw [address] [place] [address] 11/29/2023 9:10 AM EST Laboratory Lab Mobile Phlebotomy [facility] [address] [place] [address] Gm, Gm Mobile Home Draw [address] [place] [address] 12/13/2023 9:10 AM EDT Laboratory Lab Mobile Phlebotomy [facility] [address] [place] [address] [facility] Mobile Home Draw [address] [place] [address] 01/26/2024 4:20 PM EDT Office Visit [address] [place] [phone] Zenobia Lyon MD [address] [place] [address] [place] [address] Scheduled Procedures Name Priority Associated Diagnoses Date/Ti [...] Additional history exists CKD PHOS USE SMARTSET 79317 07/25/202407/03, 09/07/2022, 09/05/2022, Additional history exists CKD HGB USE SMARTSET 64036 08/21/202408/21, 08/21/2023, 08/09/2023, Additional history exists COLONOSCOPY-EVERY [...] this encounter Medical Devices Implanted Type Area Pressurizer Device Identifier Shelf Expiration Date Model / Serial / Lot Screw T2 Alpha Lock 5x47.5mm - [id number] Implanted:Qty: 1 on 09/06/2022 by Sean Silva MD at [facility] Left: Leg Upper RICHELLE : TRAUMA 06/01/2032 [id number] / / [id number] documented as of this encounter Visit Diagnoses Diagnosis Multiple myeloma not having achieved remission (HCC)- Primary Multiple myeloma, without mention of having achieved remission 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 Advanced care planning/counseling discussion Other specified counseling documented in this encounter Advance Directives Documents on File Type Date Recorded Patient Wire Brush Maker Expl anation POLST 10/17/2022 [place] DERS [...] Agen t (per Health Care Power of Infant Teacher document) Reji Tello Dotts Adult Child First Alterna te Health Care Agent (per Health Care Power of Infant Teacher document) Bowen Tello Adult Child First Alternate Health Care Agent (per Health Care Power of Infant Teacher document) Care Teams Utility Mechanic Relationship Specialty Start Date End Date Zenobia Lyon MD [address] [place] [address] [place] [address] PCP - General Family Medicine 05/22/23 documented as of this encounter
--- OUTSIDE RECORDS SUMMARY | 2023-09-14 08:04 | External Medical Summary | Summary of Care ---
Author Name Unknown Organization [facility] Address [address] [place] [address] Phone [phone] Care Team Providers Care Harness Mender Name Role Phone Zenobia Loyn MD Primary Care Provide r Encounter Details Date Type Department Care Team (Late st Contact Info) Description 08/28/2023 10:00 AM EST Telemedicine [facility] [place] [address] [place] [address] Monica Early CRNP [address] [place] [address] Belinda Vaz[facility] [address] [place] [address] [place] [phone] Multiple myeloma not having achieved remission (HCC)*; [...] diabetes mellitus with peripheral vascular disease ([facility]) Use to test blood sugar [...] 75 MG Oral Tablet (pLAVix)Indications: 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 [...] 05/30/2022 01/24/2023 Overview: [facility] to [facility] [...] as of this encounter Progress Notes * Monica Early CRNP - 08/28/2023 9:34 AM EST Images from the original note were not included. [facility] Problem Oriented Charting Provider Visit Date: 08/28/2023 Time: 9:35 AM [facility] Sub-Program: Primary Care at Home [facility] Episode Start Date: No linked [...] the recommended follow up as listed below: [facility] AP palliative (see care team) within approx 2-4 weeks for Home Visit Scheduled appointments in the next 60 days: Future Appointments-next 60 days Date/Time Provider Specialty Dept Phone 08/28/2023 10:00 AM Belinda Vazquez, [facility]; [facility] [phone] 08/29/2023 3:30 PM (Arrive by 3:15 PM) Chris Choudhury PA-C Cardiology [phone] 09/06/2023 9:10 AM [facility] Draw Laboratory Processing [phone] 09/20/2023 9:10 AM [facility] Laboratory Processing [phone] 09/29/2023 10:00 AM Lila Brownlee RN [facility] [phone] 10/04/2023 9:10 AM [facility] Laboratory Processing [phone] 10/18/2023 9:10 AM [facility] Laboratory Processing [phone] 10/19/2023 4:20 PM (Arrive by 4:05 PM) Zenobia Lyon MD Family Medicine [phone] 11/01/2023 9:10 AM [facility] Laboratory Processing [phone] 11/15/2023 9:10 AM [facility] Laboratory Processing [phone] 11/29/2023 9:10 AM [facility] Laboratory Processing [phone] 12/13/2023 9:10 AM [facility] Draw Laboratory Processing [phone] 01/26/2024 4:20 PM (Arrive by 4:05 PM) Zenobia Lyon MD Family Medicine [phone] Subjective Subjective Is this a Telemedicine Visit? Yes, Patient location: HOME. I was not in a hospital or clinic location. After connecting through [employer], patient was verified with two unique identifiers. Patient (or authorized legal airport representative) was then informed that this was a Telemedicine visit and being conducted confidentially over secure lines. Methods to assure confidentiality were taken. Patient acknowledged consent and understanding of privacy and security of the Telemedicine visit. The patient agreed to participate. Reason For [facility] Visit: Transition of Care Current Concerns: Marshall Tello is a 88 year old male seen today for a [facility] provider visit. Patient was recently admitted to [facility]. The date of discharge was 07/21/23 He was admitted for severe anemia and SOB in the context of multiple myeloma dependant on blood transfusions and CHF. He was admitted overnight and received 4 units PRBC with IV lasix in between units 07/2528-QSD-Acbfzdeb states he's doing OK at home; sleeps quite a lot. Family understands his multiple myeloma is terminal and that the increased need for transfusions indicates progression. They all want to continue treating for now. 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 Today's concerns are: IONE ears are full of wax - has [...] - labs ordered every other Monday via [facility] palliative med - not currently on meds [...] sent to PCP (via [facility] if [facility]), [facility] Health Care Team members,relevant Specialty Care Physicians* [...] at this time - will defer to [facility] palliative med 08/28/2023 patient unable to hear today with ear wax- per sposue she recalls ed conversation about progessing disease and transfusion dependence but has not discussed with patient and states plan is to continue with ongoing transfusions- no oncology appt at this time - will defer to [facility] palliative med Discerning What Matters Most to [...] (define below) 05/30/2022 Source: Content from Respecting Choices Program Aligning Care With What Matters Most: [...] life Source: Content from Respecting Choices Program ARNULFO Laughlin * Assessment & Plan [...] 3:30 PM EST Office Visit Cardiology [address] [place] [address] Chris Choudhury PA-C [address] [place] [address] 09/06/2023 9:10 AM EST Laboratory Lab Mobile Phlebotomy [facility] [address] [place] [address] [facility] Home Draw [address] [place] [address] 09/20/2023 9:10 AM EST Laboratory Lab Mobile Phlebotomy [facility] [address] [place] [address] [facility] Draw [address] [place] [address] 09/29/2023 10:00 AM EST Home Visit [facility], [facility] [address] [place] [address] Lila Brownlee, SANKET [address] [place] [address] 10/04/2023 9:10 AM EST Laboratory Lab Mobile Phlebotomy [facility] [address] [place] [address] [facility] Mobile Home Draw [address] [place] [address] 10/18/2023 9:10 AM EST Laboratory Lab Mobile Phlebotomy [facility] [address] [place] [address] [facility], [facility] Mobile Home Draw [address] [place] [address] 10/19/2023 4:20 PM EST Office Visit Family Medicine [address] [phone] Zenobia Lyon MD [address] [place] [address] [place] [address] 11/01/2023 9:10 AM EST Laboratory Lab Mobile Phlebotomy [facility] [address] [place] [address] Gmc, [facility] Mobile Home Draw [address] [place] [address] 11/15/2023 9:10 AM EST Laboratory Lab Mobile Phlebotomy [facility] [address] [place] [address] [facility], [facility] Home Draw [address] [place] [address] 11/29/2023 9:10 AM EST Laboratory Lab Mobile Phlebotomy [facility] [address] [place] [address] [facility], [facility] Mobile Home Draw [address] [place] [address] 12/13/2023 9:10 AM EDT Laboratory Lab Mobile Phlebotomy [facility] [address] [place] [address] [facility] Mobile Home Draw [address] [place] [address] 01/26/2024 4:20 PM EDT Office Visit Family Medicine [address] [place] [address] Zenobia Lyon MD [address] [place] [address] [place] [address] Scheduled Procedures Name Priority Associated Diagnoses Date/Ti [...] Additional history exists CKD PHOS USE SMARTSET 27553 07/25/202407/03, 09/07/2022, 09/05/2022, Additional history exists CKD HGB USE SMARTSET 79016 08/21/202408/21, 08/21/2023, 08/09/2023, Additional history exists COLONOSCOPY-EVERY [...] this encounter Medical Devices Implanted Type Area Shipbuilding Draftsperson Device Identifier Shelf Expiration Date Model / Serial / Lot Screw T2 Alpha Lock 5x47.5mm - [id number] Implanted:Qty: 1 on 09/06/2022 by Sean Silva MD at [facility] Left: Leg Upper RICHELLE : TRAUMA 06/01/2032 [id number] / / [id number] documented as of this encounter Visit Diagnoses Diagnosis Multiple myeloma not having achieved remission (HCC)- Primary Multiple myeloma, without mention of having achieved remission 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 Advanced care planning/counseling discussion Other specified counseling documented in this encounter Advance Directives Documents on File Type Date Recorded 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
--- OUTSIDE RECORDS SUMMARY | 2023-09-14 08:05 | External Medical Summary | Summary of Care ---
Author Name Unknown Organization [facility] Address [address] [facility] [address] Phone [phone] Care Team Providers Care Obstetric Anaesthetist Name Role Phone Zenobia Lyon MD Primary Care Provide r Reason for Visit * Reason Onset Date Comments [facility]: Maintenance 08/25/2023 Encounter Details Date Type Department Care Team (Late st Contact Info) Description 08/25/2023 5:00 PM EST Scheduled Telephone [facility], [facility] [address] [place] [address] Coordinator, [facility] [address] [place] [address] Allergies Active Allergy Reactions Criticality Noted Date Comments James Inhibitors 09/10/2002 cough on prinivil Hydrocodone 09/05/2022 Family states AMS change when taken Prednisone 05/26/2011 Blisters in throat Sulfa Antibiotics 03/19/2001 dysurea documented as of this encounter (statuses as of 08/25/2023) Medications Medication Sig Dispensed Refills Start Date [...] 75 MG Oral Tablet (pLAVix)Indications: Atherosclerosis of siletz tribe coronary artery of siletz tribe heart without angina pectoris Take 1 [...] as of this encounter (statuses as of 08/25/2023) Active Problems Patient Care Coordination No te [...] control in clinical research program 03/25/2015 Overview: [employer] Product Surveillance Registry PI: Kylah Lilly IV, [...] CORONARY ATHEROSCLEROSIS OF UNSPECIFIED TYPE OF VESSEL, RINCON OR GRAFT Last Assessment & Plan: Stable. 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 documented as of this encounter (statuses as of 08/25/2023) Resolved Problems Problem Noted Date Diagnosed Date [...] without hematuria 05/30/2022 01/24/2023 Overview: Xavier to [facility] 04/20-04/29 [...] as of this encounter (statuses as of 08/25/2023) Immunizations Name Administration Dates Next Due COVID-19 mRNA, LNP-s, No Pre serve, 2-Dose Series (Moderna) 08/24/2021,12/07/2020,11/09/2020 COVID-19, MRNA-LNP, 23-24, P F, 30 MCG/0.3 mL, 12 YRS AND ABOVE, IM (Tangler-Comirnat) 07/19/2023 Covid-19, Mrna, Lnp-s, Pf, B ivalent, [...] Telephone Encounter - Simran Murillo RN - 08/25/2023 11:27 AM EST [facility] Telephonic Nurse Follow-Up Call [facility] Subprogram: Primary Care at Home Follow Up Call Type: Routine follow up call / Status Check Acute issue requiring follow-up call: Other: s/p [facility] admission for low HGB/lethargy Objective: 07/25/2023 3:44 PM 07/23/2023 12:16 PM 07/19/2023 2:56 PM 06/22/2023 1:43 PM 06/15/2023 10:42 PM VITALS ACROSS ENCOUNTERS BP 122/60 154/64 120/60 158/68 134/68 Pulse 70 76 72 78 74 Weight 90.3 kg 90.7 kg BMI 27.75 kg/m2 27.89 kg/m2 Lab Results Component Value Date PROTEIN - [facility] 8.0 08/21/2023 WBC AUTO - [facility] 4.88 08/21/2023 Lab Results Component Value Date WBC AUTO - [facility] 4.88 08/21/2023 HGB - [facility] 5.7 (LL) 08/21/2023 PLATELET AUTO - [facility] 188 08/21/2023 Lab Results Component Value Date SODIUM - [facility] 142 08/21/2023 POTASSIUM - [facility] 4.2 08/21/2023 MAGNESIUM - [facility] 2.2 07/25/2023 CO2 - [facility] 25 08/21/2023 CREATININE - [facility] 1.5 (H) 08/21/2023 ESTIMATED GLOMERULAR FILTRATION RATE - [facility] 44 (L) 08/21/2023 ALBUMIN - [facility] 3.0 (L) 08/21/2023 AST - [facility] 11 08/21/2023 ALT - [facility] 8 (L) 08/21/2023 ALKALINE PHOSPHATASE - [facility] 30 (L) 08/21/2023 No results found for: "PRO BNP", "LEFT VENTRICULAR EJECTION FRACTION" Remote Patient Monitoring: NONE Oxygen Needs: NO supplemental oxygen needs identified DME Needs: NO DME needs identified Medications: No medication or dose adjustments made during acute episode Subjective: Condition Status: Symptoms resolved and back to baseline Current Concerns: Spoke with spouse. Pt home. Pt was only in [facility] overnight. Pt D/C 08/23/23 per spouse Pt had HGB 5.7 recived PRBCs x 4. Severe anemia Spouse states pt doing much better. Offers no complaints + eating/drinking WNL Spouse aware to call [facility] with any additional concerns Scheduling please schedule TOCs Disposition: Issue resolved. All appropriate follow up scheduled. Future Visits Scheduled: Future Appointments-next 60 days Date/Time Provider Specialty Dept Phone 08/25/2023 5:00 PM Coordinator, Shira Bal [facility] [phone] 08/29/2023 3:30 PM (Arrive by 3:15 PM) Chris Choudhury PA-C Cardiology [phone] 09/06/2023 9:10 AM [facility] Draw Laboratory Processing [phone] 09/20/2023 9:10 AM [facility] Draw Laboratory Processing [phone] 09/29/2023 10:00 AM Lila Brownlee RN [facility] [phone] 10/04/2023 9:10 AM [facility] Draw Laboratory Processing [phone] 10/18/2023 9:10 AM [facility] Draw Laboratory Processing [phone] 10/19/2023 4:20 PM (Arrive by 4:05 PM) Zenobia Lyon MD Family Medicine [phone] 11/01/2023 9:10 AM [facility] Draw Laboratory Processing [phone] 11/15/2023 9:10 AM [facility] Draw Laboratory Processing [phone] 11/29/2023 9:10 AM [facility] Draw Laboratory Processing [phone] 12/13/2023 9:10 AM Gm, [facility] Mobile Home Draw Laboratory Processing [phone] 01/26/2024 4:20 PM (Arrive by 4:05 PM) Zenobia Lyon MD Family Medicine [phone] Simran Murillo, SANKET documented in this encounter Plan of Treatment Upcoming Encounters Date Type Department Care Team (Late st Contact Info) Description 08/29/2023 3:30 PM EST Office Visit Cardiology [address] [place] [phone] Chris Choudhury PA-C [address] [facility] [place] [address] 09/06/2023 9:10 AM EST Laboratory Lab Mobile Phlebotomy [facility] [address] [place] [address] [facility], Gml Mobile Home Draw [address] [place] [address] 09/20/2023 9:10 AM EST Laboratory Lab Mobile Phlebotomy [facility] [address] [place] [address] [facility], Gml Mobile Home Draw [address] [place] [address] 09/29/2023 10:00 AM EST Home Visit isinger at [facility] [address] [facility] [place] [address] Lila Brownlee, SANKET [facility] [place] [address] 10/04/2023 9:10 AM EST Laboratory Lab Mobile Phlebotomy [facility] [address] [place] [address] [facility], Gml Mobile Home Draw [address] [place], [place] [address] 10/18/2023 9:10 AM EST Laboratory Lab Mobile Phlebotomy [facility] [address] [place] [address] [facility], Gml Mobile Home Draw [address] [place] [address] 10/19/2023 4:20 PM EST Office Visit [address] [phone] Zenobia Lyon MD [address] [place] [address] [place] [address] 11/01/2023 9:10 AM EST Laboratory Lab Mobile Phlebotomy [facility] [address] [place] [address] Gm, Gml Mobile Home Draw [address] [place] [address] 11/15/2023 9:10 AM EST Laboratory Lab Mobile Phlebotomy [facility] [address] [place] [address] Gm, Gml Mobile Home Draw [address] [place] [address] 11/29/2023 9:10 AM EST Laboratory Lab Mobile Phlebotomy [facility] [address] [place] [address] [facility], Gml Mobile Home Draw [address] [place] [address] 12/13/2023 9:10 AM EDT Laboratory Lab Mobile Phlebotomy [facility] [address] [place] [address] [facility]mc, Gml Mobile Home Draw [address] [place] [address] 01/26/2024 4:20 PM EDT Office Visit [address] [phone] Zenobia Lyon MD [address] [place] [address] [place] [address] Scheduled Procedures Name Priority [...] Additional history exists CKD PHOS USE SMARTSET 67874 07/25/202407/03, 09/07/2022, 09/05/2022, Additional history exists CKD HGB USE SMARTSET 63124 08/21/202408/21, 08/21/2023, 08/09/2023, Additional history exists COLONOSCOPY-EVERY [...] this encounter Medical Devices Implanted Type Area Greenhouse Florist Device Identifier Shelf Expiration Date Model / Serial / Lot Screw T2 Alpha Lock 5x47.5mm - [id number] Implanted:Qty: 1 on 09/06/2022 by Sean Silva MD at [facility] Left: Leg Upper RICHELLE : TRAUMA 06/01/2032 [id number] / / [id number] documented as of this encounter Advance Directives Documents on File Type Date Recorded 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
--- OUTSIDE RECORDS SUMMARY | 2023-09-14 08:05 | External Medical Summary | Summary of Care ---
Author Name Unknown Organization [facility] Address [address] [place] [address] Phone [phone] Care Team Providers Care Post Commander Name Role Phone Zenobia Lyon MD Primary Care Provide r Reason for Visit * Reason Onset Date Comments Test Results 08/22/2023 Hgb 5.7 Encounter Details Date Type Department Care Team (Late st Contact Info) Description 08/22/2023 Telephone [facility], [facility] [address] [place] [address] Mariposa Centeno CRNP [address] [place] [facility] [place] [address] Test Results (Hgb 5.7) Allergies Active Allergy [...] 75 MG Oral Tablet (pLAVix)Indications: Atherosclerosis of rincon coronary artery of rincon heart without angina pectoris Take 1 Tablet [...] control in clinical research program 03/25/2015 Overview: [employer] Product Surveillance Registry PI: Kylah Lilly IV, [...] CORONARY ATHEROSCLEROSIS OF UNSPECIFIED TYPE OF VESSEL, [place] OR GRAFT Last Assessment & Plan: Stable. [...] glenn ek & Lt. leg ; Rt. voodoo 07/0207/18/2002 07/15/2015 Dyslipidemia, goal to be determined [...] encounter Miscellaneous Notes * Telephone Encounter - Chen Maloney LPN - 08/22/2023 9:59 AM EST Pt added to shared hospital list to follow for discharge. * Telephone Encounter - Mariposa Centeno CRNP - 08/22/2023 1:29 AM EST on call critical lab received hgb 5.7 Chart reviewed, call placed to patients arnie Lema with recommendation to have patient go to hospital given recent reporting of symptoms (significant fatigue, recent hospitalization for severe anemia requiring 4 units of blood). Daughter states understanding and will wake patient up and call 911 and go to [facility]. ARNULFO Palomino documented in this encounter Plan of Treatment Upcoming Encounters Date Type Department Care Team (Late st Contact Info) Description 08/29/2023 3:30 PM EST Office Visit Cardiology [address] [place] [address] Chris [facility]ury PA-C [facility] [place] [address] 09/06/2023 9:10 AM EST Laboratory Lab Mobile Phlebotomy [facility] [address] [place] [address] [facility], [facility] Mobile Home Draw [address] [place] [address] 09/20/2023 9:10 AM EST Laboratory Lab Mobile Phlebotomy [facility] [address] [place] [address] [facility], [facility] Mobile Home Draw [address] [place] [address] 09/29/2023 10:00 AM EST Home Visit [facility]inger at [facility] [address] [place] [address] Lila Brownlee RN [address] [place] [address] 10/04/2023 9:10 AM EST Laboratory Lab Mobile Phlebotomy [facility] [address] [place] [address] [facility], Gml Mobile Home Draw [address] [place] [address] 10/18/2023 9:10 AM EST Laboratory Lab Mobile Phlebotomy [facility] [address] [place] [address] [facility], [facility]ml Mobile Home Draw [address] [place] [address] 10/19/2023 4:20 PM EST Office Visit [address] [place] [phone] Zenobia Lyon MD [address] [place] [address] [place] [address] 11/01/2023 9:10 AM EST Laboratory Lab Mobile Phlebotomy [facility] [address] [place] [address] [facility], Gml Mobile Home Draw [address] [place] [address] 11/15/2023 9:10 AM EST Laboratory Lab Mobile Phlebotomy [facility] [address] [place] [address] [facility], Gm Mobile Home Draw [address] [place] [address] 11/29/2023 9:10 AM EST Laboratory Lab Mobile Phlebotomy [facility] [address] [place] [address] [facility], [facility] Mobile Home Draw [address] [place] [address] 12/13/2023 9:10 AM EDT Laboratory Lab Mobile Phlebotomy [facility] [address] [place] [address] [facility], [facility] Mobile Home Draw [address] [place] [address] 01/26/2024 4:20 PM EDT Office Visit Family Medicine [address] [phone] Zenobia Lyon MD [address] [place] [address] [place] [address] Scheduled Procedures Name Priority Associated Diagnoses Date/Ti [...] Additional history exists CKD PHOS USE SMARTSET 45007 07/25/202407/03, 09/07/2022, 09/05/2022, Additional history exists CKD HGB USE SMARTSET 39912 08/21/202408/21, 08/21/2023, 08/09/2023, Additional history exists COLONOSCOPY-EVERY [...] this encounter Medical Devices Implanted Type Area Road Worker Device Identifier Shelf Expiration Date Model / Serial / Lot Screw T2 Alpha Lock 5x47.5mm - [id number] Implanted:Qty: 1 on 09/06/2022 by Sean Silva MD at [facility] Left: Leg Upper RICHELLE : TRAUMA 06/01/2032 [id number] / / [id number] documented as of this encounter Advance Directives Documents on File Type Date Recorded 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
--- OUTSIDE RECORDS SUMMARY | 2023-09-14 08:05 | External Medical Summary | Summary of Care ---
Author Name Unknown Organization [facility] Address [address] [facility] [address] Phone [phone] Care Team Providers Care Technical Agronomist Name Role Phone Zenobia Lyon MD Primary Care Provide r Reason for Visit * Reason Onset Date Comments [facility]: Maintenance 08/25/2023 Encounter Details Date Type Department Care Team (Late st Contact Info) Description 08/25/2023 5:00 PM EST Scheduled Telephone [facility] [address] [place] [address] Coordinator, [facility] [address] [place] [address] Allergies Active Allergy Reactions Criticality Noted Date Comments James Inhibitors 09/10/2002 cough on prinivil Hydrocodone 09/05/2022 Family states AMS change when taken Prednisone 05/26/2011 Blisters in throat Sulfa Antibiotics 03/19/2001 dysurea documented as of this encounter (statuses as of 08/26/2023) Medications Medication Sig Dispensed Refills Start Date [...] MG Oral Tablet (pLAVix)Indications: Atherosclerosis of [place] coronary artery of [place] heart without angina pectoris Take 1 Tablet [...] as of this encounter (statuses as of 08/26/2023) Active Problems Patient Care Coordination No te [...] control in clinical research program 03/25/2015 Overview: [employer] Product Surveillance Registry PI: Kylah Lilly IV, [...] CORONARY ATHEROSCLEROSIS OF UNSPECIFIED TYPE OF VESSEL, [place] OR GRAFT Last Assessment & Plan: Stable. 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 documented as of this encounter (statuses as of 08/26/2023) Resolved Problems Problem Noted Date Diagnosed Date [...] glenn ek & Lt. leg ; Rt. yazidi 07/0207/18/2002 07/15/2015 Dyslipidemia, goal to be determined [...] as of this encounter (statuses as of 08/26/2023) Immunizations Name Administration Dates Next Due COVID-19 mRNA, LNP-s, No Pre serve, 2-Dose Series (Moderna) 08/24/2021,12/07/2020,11/09/2020 COVID-19, MRNA-LNP, 23-24, P F, 30 MCG/0.3 mL, 12 YRS AND ABOVE, IM (Plasticell-Comirnat) 07/19/2023 Covid-19, Mrna, Lnp-s, Pf, B ivalent, [...] encounter Miscellaneous Notes * Telephone Encounter - Claudy Barajas OSA - 08/26/2023 11:01 AM EST Per intake request, [facility] telemed scheduled for 08/28 at 10/1030am, call to spouse and confirmed thisappt, per chart-connectivity in home, pt d/c 08/23 from ED * Telephone Encounter - Simran Murillo RN - 08/25/2023 11:27 AM EST [facility] Telephonic Nurse Follow-Up Call [facility] Subprogram: Primary Care at Home Follow Up Call Type: Routine follow up call / Status Check Acute issue requiring follow-up call: Other: s/p [facility] admission for low HGB/lethargy Objective: [...] spouse. Pt home. Pt was only in [facility] overnight. Pt D/C 08/23/23 per spouse Pt had HGB 5.7 recived PRBCs x 4. Severe anemia Spouse states pt doing much better. Offers no complaints + eating/drinking WNL Spouse aware to call [facility] with any additional concerns Scheduling please schedule TOCs Disposition: Issue resolved. All appropriate follow up scheduled. Future Visits Scheduled: Future Appointments-next 60 days Date/Time Provider Specialty Dept Phone 08/25/2023 5:00 PM Coordinator, [facility] [phone] 08/29/2023 3:30 PM (Arrive by 3:15 PM) Chris Choudhury PA-C Cardiology [phone] 09/06/2023 9:10 AM [facility] Laboratory Processing [phone] 09/20/2023 9:10 AM [facility] Draw Laboratory Processing [phone] 09/29/2023 10:00 AM Lila Brownlee RN [facility] [phone] 10/04/2023 9:10 AM [facility] Draw Laboratory Processing [phone] 10/18/2023 9:10 AM [facility] Laboratory Processing [phone] 10/19/2023 4:20 PM (Arrive by 4:05 PM) Zenobia Lyon MD Family Medicine [phone] 11/01/2023 9:10 AM [facility] Laboratory Processing [phone] 11/15/2023 9:10 AM [facility] Draw Laboratory Processing [phone] 11/29/2023 9:10 AM [facility] Draw Laboratory Processing [phone] 12/13/2023 9:10 AM [facility] Laboratory Processing [phone] 01/26/2024 4:20 PM (Arrive by 4:05 PM) Zenobia Lyon MD Family Medicine [phone] Simran Murillo RN documented in this encounter Plan of Treatment Upcoming Encounters Date Type Department Care Team (Late st Contact Info) Description 08/28/2023 10:00 AM EST Telemedicine [facility], [place] [address] [place] [address] Monica Early CRNP [address] [facility] [address] [facility] Vazquez [facility] [address] [place] [address] 08/29/2023 3:30 PM EST Office Visit Cardiology [address] [place] [address] Chris Choudhury PA-C [address] [place] [address] 09/06/2023 9:10 AM EST Laboratory Lab Mobile Phlebotomy [facility] [address] [place] [address] [facility] Draw [address] [place] [address] 09/20/2023 9:10 AM EST Laboratory Lab Mobile Phlebotomy [facility] [address] [place] [address] [facility] Home Draw [address] [place] [address] 09/29/2023 10:00 AM EST Home Visit [facility]inger at [facility] [address] [place] [address] Lila Brownlee, SANKET [address] [place] [address] 10/04/2023 9:10 AM EST Laboratory Lab Mobile Phlebotomy [facility] [address] [place] [address] [facility], [facility] Draw [address] [place] [address] 10/18/2023 9:10 AM EST Laboratory Lab Mobile Phlebotomy [facility] [address] [place] [address] [facility] Draw [address] [place] [address] 10/19/2023 4:20 PM EST Office Visit Family [address] [place] [phone] Zenobia Lyon MD [address] [place] [address] [place] [address] 11/01/2023 9:10 AM EST Laboratory Lab Mobile Phlebotomy [facility] [address] [place] [address] [facility] Draw [address] [place] [address] 11/15/2023 9:10 AM EST Laboratory Lab Mobile Phlebotomy [facility] [address] [place] [address] [facility] [address] [place] [address] 11/29/2023 9:10 AM EST Laboratory Lab Mobile Phlebotomy [facility] [address] [place] [address] [facility] Draw [address] [place] [address] 12/13/2023 9:10 AM EDT Laboratory Lab Mobile Phlebotomy [facility] [address] [place] [address] [facility], [facility] Draw [address] [place] [address] 01/26/2024 4:20 PM EDT Office Visit Family [address] [phone] Zenobia Lyon MD [address] [place] [address] [place] [address] Scheduled Procedures Name Priority Associated Diagnoses Date/Ti [...] Additional history exists CKD PHOS USE SMARTSET 05865 07/25/202407/03, 09/07/2022, 09/05/2022, Additional history exists CKD HGB USE SMARTSET 29739 08/21/202408/21, 08/21/2023, 08/09/2023, Additional history exists COLONOSCOPY-EVERY [...] this encounter Medical Devices Implanted Type Area Counseling Specialist Device Identifier Shelf Expiration Date Model / Serial / Lot Screw T2 Alpha Lock 5x47.5mm - [id number] Implanted:Qty: 1 on 09/06/2022 by Sean Silva MD at OR [facility] Left: Leg Upper RICHELLE : TRAUMA 06/01/2032 [id number] / / [id number] documented as of this encounter Advance Directives Documents on File Type Date Recorded 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
--- OUTSIDE RECORDS SUMMARY | 2023-09-14 08:05 | External Medical Summary | Summary of Care ---
Author Name Unknown Organization [facility] Address [address] [place] [address] Phone [phone] Care Team Providers Care Gasket Maker Name Role Phone Zenobia Lyon MD Primary Care Provide r Encounter Details Date Type Department Care Team (Late st Contact Info) Description 08/28/2023 10:00 AM EST Telemedicine [facility], [place] [address] [address] Monica Early CRNP [address] [place] [address] Belinda Vazquez [facility] Physical Plant Manager [address] [place] [address] [place] [phone] Multiple myeloma not having achieved remission (HCC)*; [...] 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 ([facility]) Use to test blood sugar [...] [place] heart without angina pectoris Take 1 Tablet [...] CORONARY ATHEROSCLEROSIS OF UNSPECIFIED TYPE OF VESSEL, [place] OR GRAFT Last Assessment & Plan: Stable. [...] without hematuria 05/30/2022 01/24/2023 Overview: [facility] to [facility] [...] MCG/0.3 mL, 12 YRS AND ABOVE, IM ([facility]) 07/19/2023 Covid-19, Mrna, Lnp-s, Pf, B ivalent, [...] note were not included. [facility] Problem Oriented Charting Provider Visit Date: 08/28/2023 Time: 9:35 AM [facility] Sub-Program: Primary Care at Home [facility] Episode Start Date: No linked episodes [...] the recommended follow up as listed below: [facility] palliative (see care team) within approx 2-4 weeks for Home Visit Scheduled appointments in the next 60 days: Future Appointments-next 60 days Date/Time Provider Specialty Dept Phone 08/28/2023 10:00 AM Belinda Vazquez, Community Health Physical Plant Manager; Monica Early CRNP [facility] [phone] 08/29/2023 3:30 PM (Arrive by 3:15 PM) Chris Choudhury PA-C Cardiology [phone] 09/06/2023 9:10 AM [facility] Draw Laboratory Processing [phone] 09/20/2023 9:10 AM [facility] Draw Laboratory Processing [phone] 09/29/2023 10:00 AM Lila Brownlee RN [facility] [phone] 10/04/2023 9:10 AM [facility] Draw Laboratory Processing [phone] 10/18/2023 9:10 AM [facility] Draw Laboratory Processing [phone] 10/19/2023 4:20 PM (Arrive by 4:05 PM) Zenobia Lyon MD Family Medicine [phone] 11/01/2023 9:10 AM [facility] Draw Laboratory Processing [phone] 11/15/2023 9:10 AM [facility] Draw Laboratory Processing [phone] 11/29/2023 9:10 AM [facility] Draw Laboratory Processing [phone] 12/13/2023 9:10 AM [facility], [facility] Mobile Home Draw Laboratory Processing [phone] 01/26/2024 4:20 PM (Arrive by 4:05 PM) Zenobia Lyon MD Family Medicine [phone] Subjective Subjective Is this a Telemedicine Visit? Yes, Patient location: HOME. I was not in a hospital or clinic location. After connecting through [employer], patient was verified with two unique identifiers. Patient (or authorized legal sales service representative) was then informed that this was a Telemedicine visit and being conducted confidentially over secure lines. Methods to assure confidentiality were taken. Patient acknowledged consent and understanding of privacy and security of the Telemedicine visit. The patient agreed to participate. Reason For [facility] Visit: Transition of Care Current Concerns: Marshall Tello Sr. is a 88 year old male seen today for a [facility] provider visit. Patient was recently admitted [facility]. The date of discharge was 07/21/23 He was admitted for severe anemia and SOB in the context of multiple myeloma dependant on blood transfusions and CHF. He was admitted overnight and received 4 units PRBC with IV lasix in between units 07/2559-QFN-Wgbngler states he's doing OK at home; sleeps quite a lot. Family understands his multiple myeloma is terminal and that the increased need for transfusions indicates progression. They all want to continue treating for now. 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 Today's concerns are: KNIK ears are full of wax - has [...] - labs ordered every other Monday via [facility] palliative med - not currently on [...] sent to PCP (via [facility] if [facility]), [facility] Care Team members,relevant Specialty Care Physicians* [...] at this time - will defer to [facility] palliative med 08/28/2023 patient unable to hear today with ear wax- per sposue she recalls ed conversation about progessing disease and transfusion dependence but has not discussed with patient and states plan is to continue with ongoing transfusions- no oncology appt at this time - will defer to [facility] palliative med Discerning What Matters Most [...] vegetable" (define below) 05/30/2022 Source: Content from [employer] Program Aligning Care With What Matters Most: [...] maintain quality of life Source: Content from [employer] Program ARNULFO Laughlin * Assessment & Plan [...] 08/29/2023 3:30 PM EST Office Visit Cardiology [address] [place] [address] Chris Choudhury PA-C [address] [place] [address] 09/06/2023 9:10 AM EST Laboratory Lab Mobile Ph[facility]omy [facility] [address] [place] [address] [facility], [facility] Mobile Home Draw [address] [place] [address] 09/20/2023 9:10 AM EST Laboratory Lab Mobile Ph[facility]bot[facility] [address] [place] [address] [facility], [facility] Mobile Home Draw [address] [place] [address] 09/29/2023 10:00 AM EST Home Visit [facility] [address] [place] [address] Lila Brownlee RN [address] [place] [address] 10/04/2023 9:10 AM EST Laboratory Lab Mobile Phlebot[facility] [address] [place] [address] [facility] Draw [address] [place] [address] 10/18/2023 9:10 AM EST Laboratory Lab Mobile Phle[facility] [address] [place] [address] [facility] Draw [address] [place] [address] 10/19/2023 4:20 PM EST Office Visit Family [address] [phone] Zenobia Lyon MD [address] [place] [address] [place] [address] 11/01/2023 9:10 AM EST Laboratory Lab Mobile Phlebotomy [facility] [address] [place] [address] [facility], [facility] Mobile Home Draw [address] [place] [address] 11/15/2023 9:10 AM EST Laboratory Lab Mobile Phlebot[facility] [address] [place] [address] [facility] Home Draw [address] [place] [address] 11/29/2023 9:10 AM EST Laboratory Lab Mobile Phlebot[facility] [address] [place] [address] [facility] Home Draw [address] [place] [address] 12/13/2023 9:10 AM EDT Laboratory Lab Mobile Phlebotomy [facility] [address] [place] [address] [facility], [facility] Mobile Home Draw [address] [place] [address] 01/26/2024 4:20 PM EDT Office Visit Family Medicine [address] [place] [address] Zenobia Lyon MD [address] [place] [address] [place] [address] Scheduled Procedures Name Priority Associated Diagnoses Date/Ti [...] Additional history exists CKD PHOS USE SMARTSET 20356 07/25/202407/03, 09/07/2022, 09/05/2022, Additional history exists CKD HGB USE SMARTSET 99041 08/21/202408/21, 08/21/2023, 08/09/2023, Additional history exists COLONOSCOPY-EVERY [...] this encounter Medical Devices Implanted Type Area Contracting Officer Device Identifier Shelf Expiration Date Model / Serial / Lot Screw T2 Alpha Lock 5x47.5mm - [id number] Implanted:Qty: 1 on 09/06/2022 by Sean Silva MD at [facility] Left: Leg Upper RICHELLE : TRAUMA 06/01/2032 [id number] / / [id number] documented as of this encounter Visit Diagnoses Diagnosis Multiple myeloma not having achieved remission (HCC)- Primary Multiple myeloma, without mention of having achieved remission 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 Advanced care planning/counseling discussion Other specified counseling documented in this encounter Advance Directives Documents on File Type Date Recorded Patient Power Plant Electrician Expl anation POLST 10/17/2022 [place] DERS [...] Agen t (per Health Care Power of Subcontract Administrator document) Reji Omer Dotts Adult Child First Alterna te Health Care Agent (per Health Care Power of Subcontract Administrator document) Bowen Tello Adult Child First Alternate Health Care Agent (per Health Care Power of Subcontract Administrator document) Care Teams Gasket Maker Relationship Specialty Start Date End Date Zenobia Lyon MD [address] [place] [address] [place] [address] PCP - General Family Medicine 05/22/23 documented as of this encounter
--- OUTSIDE RECORDS SUMMARY | 2023-09-14 08:05 | External Medical Summary | Summary of Care ---
Author Name Unknown Organization [facility] Address [address] [place] [address] Phone [phone] Care Team Providers Care Facial Operator Name Role Phone Zenobia Lyno MD Primary Care Provide r Reason for Visit * Reason Onset Date Comments [facility]: Maintenance 08/22/2023 Encounter Details Date Type Department Care Team (Late st Contact Info) Description 08/22/2023 9:00 AM EST Scheduled Telephone [facility], [facility] [address] [facility] [place] [address] Coordinator, [facility] [address] [facility] [place] [address] Allergies Active Allergy Reactions Criticality Noted Date [...] control in clinical research program 03/25/2015 Overview: [employer] Product Surveillance Registry PI: Kylah Lilly IV, [...] CORONARY ATHEROSCLEROSIS OF UNSPECIFIED TYPE OF VESSEL, [place] OR GRAFT Last Assessment & Plan: Stable. [...] hematuria 05/30/2022 01/24/2023 Overview: Xavier to [facility] 04/20-04/29 [...] MCG/0.3 mL, 12 YRS AND ABOVE, IM [facility]) 07/19/2023 Covid-19, Mrna, Lnp-s, Pf, B ivalent, [...] Telephone Encounter - Carly Cano RN - 08/22/2023 7:42 AM EST Daughter/ Reji was called early this morning by manager semiconductor Mariposa ARREDONDO with critical lab resulthgb 5.7. Daughter was calling 911 taking patient to [facility]. I did a follow up call to daughter /Reji this morning, her father is in the ED at [facility], she stated his hgb dropped to 5.4 on arrival and he is scheduled to receive 3 units of blood , infusions already started. Carly Cano punchboard assemblerBuilding And Construction Manager [facility] documented in this encounter Plan of Treatment Upcoming Encounters Date Type Department Care Team (Late st Contact Info) Description 08/29/2023 3:30 PM EST Office Visit Cardiology [address] [place] [address] Chris Choudhury PA-C [address] [place] [address] 09/06/2023 9:10 AM EST Laboratory Lab Mobile Phlebotomy [facility] [address] [place] [address] [facility], [facility] Mobile Home Draw [address] [place] [address] 09/20/2023 9:10 AM EST Laboratory Lab Mobile Phlebotomy [facility] [address] [place] [address] [facility], [facility] Mobile Home Draw [address] [place], [place] [address] 09/29/2023 10:00 AM EST Home Visit [facility], [facility] [address] [facility] [place] [address] Lila Brownlee, SANKET [address] [facility] [place] [address] 10/04/2023 9:10 AM EST Laboratory Lab Mobile Phlebot[facility] [address] [place] [address] [facility] Mobile Home Draw [address] [place] [address] 10/18/2023 9:10 AM EST Laboratory Lab Mobile Phlebotomy [facility] [address] [place] [address] [facility] Mobile Home Draw [address] [place] [address] 10/19/2023 4:20 PM EST Office Visit Family [address] [phone] Zenobia Lyon [address] [place] [address] 11/01/2023 9:10 AM EST Laboratory Lab Mobile Phlebotomy [facility] [address] [place] [address] [facility] Mobile Home Draw [address] [place] [address] 11/15/2023 9:10 AM EST Laboratory Lab Mobile Phle[facility] [address] [place] [address] [facility] Mobile Home Draw [address] [place] [address] 11/29/2023 9:10 AM EST Laboratory Lab Mobile Phle[facility] [address] [place] [address] [facility], [facility] Mobile Home Draw [address] [place] [address] 12/13/2023 9:10 AM EDT Laboratory Lab Mobile Phlebotomy [facility] [address] [place] [address] [facility], [facility] Mobile Home Draw [address] [place] [address] 01/26/2024 4:20 PM EDT Office Visit Family [address] [place] [address] Zenobia Lyon MD [address] [place] [address] [place] [phone] Scheduled Procedures Name Priority Associated Diagnoses Date/Ti [...] Additional history exists CKD PHOS USE SMARTSET 61546 07/25/202407/03, 09/07/2022, 09/05/2022, Additional history exists CKD HGB USE SMARTSET 75839 08/21/202408/21, 08/21/2023, 08/09/2023, Additional history exists COLONOSCOPY-EVERY [...] this encounter Medical Devices Implanted Type Area Business Analytics Manager Device Identifier Shelf Expiration Date Model / Serial / Lot Screw T2 Alpha Lock 5x47.5mm - [id number] Implanted:Qty: 1 on 09/06/2022 by Sean Silva MD at [facility] Left: Leg Upper RICHELLE : TRAUMA 06/01/2032 [id number] / / [id number] documented as of this encounter Advance Directives Documents on File Type Date Recorded Patient Customer Success Director Expl anation POLST 10/17/2022 [place] DERS [...] Agen t (per Health Care Power of Applications Project Manager document) Reji Omer Dotts Adult Child First Alterna te Health Care Agent (per Health Care Power of Applications Project Manager document) Bowen Tello Adult Child First Alternate Health Care Agent (per Health Care Power of Applications Project Manager document) Care Teams Facial Operator Relationship Specialty Start Date End Date Zenobia Lyon MD [address] [place] [address] [place] [phone] PCP - General Family Medicine 05/22/23 documented as of this encounter
--- OUTSIDE RECORDS SUMMARY | 2023-09-14 08:05 | External Medical Summary | Summary of Care ---
Author Name Unknown Organization [facility] Address [address] [place] [address] Phone [phone] Care Team Providers Care Talent Specialist Name Role Phone Zenobia Lyon MD Primary Care Provide r Reason for Visit * Reason Onset Date Comments Test Results 08/22/2023 Hgb 5.7 Encounter Details Date Type Department Care Team (Late st Contact Info) Description 08/22/2023 Telephone [facility], [facility] [address] [place] [facility] [place] [address] Mariposa Centeno CRNP [address] [place] [facility] [place] [address] Test Results (Hgb 5.7) Allergies Active Allergy Reactions Criticality Noted Date Comments James Inhibitors 09/10/2002 cough on prinivil Hydrocodone 09/05/2022 Family states AMS change when taken Prednisone 05/26/2011 Blisters in throat Sulfa Antibiotics 03/19/2001 dysurea documented as of this encounter (statuses as of 08/23/2023) Medications Medication Sig Dispensed Refills Start Date [...] 75 MG Oral Tablet (pLAVix)Indications: Atherosclerosis of [place] coronary artery of [place] heart without angina pectoris Take 1 Tablet [...] as of this encounter (statuses as of 08/23/2023) Active Problems Patient Care Coordination No te [...] control in clinical research program 03/25/2015 Overview: [employer] Product Surveillance Registry PI: Kylah Lilly IV, [...] CORONARY ATHEROSCLEROSIS OF UNSPECIFIED TYPE OF VESSEL, [place] OR GRAFT Last Assessment & Plan: Stable. 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 * Telephone Encounter - Mariposa Centeno CRNP - 08/22/2023 1:29 AM EST at home independent call center agent critical lab received hgb 5.7 Chart reviewed, call placed to patients arnie Lema with recommendation to have patient go to hospital given recent reporting of symptoms (significant fatigue, recent hospitalization for severe anemia requiring 4 units of blood). Daughter states understanding and will wake patient up and call 911 and [address] [facility]. ARNULFO Palomino documented in this encounter Plan of Treatment Upcoming Encounters Date Type Department Care Team (Late st Contact Info) Description 08/29/2023 3:30 PM EST Office Visit Cardiology [address] [place] [address] Chris Choudhury PA-C [address] [place] [address] 09/06/2023 9:10 AM EST Laboratory Lab Mobile Phlebotomy [facility] [address] [place] [address] [facility], [facility] Mobile [facility] Draw [address] [place] [address] 09/20/2023 9:10 AM EST Laboratory Lab Mobile Phlebotomy [facility] [address] [place] [address] [facility], [facility] Home Draw [address] [place] [address] 09/29/2023 10:00 AM EST Home Visit [facility] [address] [facility] [address] Lila Brownlee, SANKET [address] [place] [address] 10/04/2023 9:10 AM EST Laboratory Lab Mobile Phlebotomy [facility] [address] [place] [address] [facility], [facility] Draw [address] [place] [address] 10/18/2023 9:10 AM EST Laboratory Lab Mobile Phlebotomy [facility] [address] [place] [address] [facility], [facility] Draw [address] [place] [address] 10/19/2023 4:20 PM EST Office Visit Family Medicine [address] [place] [phone] Zenobia Lyon MD [address] [place] [address] [place] [address] 11/01/2023 9:10 AM EST Laboratory Lab Mobile Phlebotomy [facility] [address] [place] [address] Gm, [facility] [address] [place] [address] 11/15/2023 9:10 AM EST Laboratory Lab Mobile Phlebotomy [facility] [address] [place] [address] [address], [facility] Home Draw [address] [place] [address] 11/29/2023 9:10 AM EST Laboratory Lab Mobile Phlebotomy [facility] [address] [place] [address] [facility], [facility] Draw [address] [place] [address] 12/13/2023 9:10 AM EDT Laboratory Lab Mobile Phlebotomy [facility] [address] [place] [address] [facility], [facility] Draw [address] [place] [address] 01/26/2024 4:20 PM EDT Office Visit Family [address] [place] [phone] Zenobia Lyon MD [address] [place] [address] [place] [address] Scheduled Procedures Name Priority Associated Diagnoses Date/Ti [...] Additional history exists CKD PHOS USE SMARTSET 07870 07/25/202407/03, 09/07/2022, 09/05/2022, Additional history exists CKD HGB USE SMARTSET 00897 08/21/202408/21, 08/21/2023, 08/09/2023, Additional history exists COLONOSCOPY-EVERY [...] this encounter Medical Devices Implanted Type Area Glass Beveller Device Identifier Shelf Expiration Date Model / Serial / Lot Screw T2 Alpha Lock 5x47.5mm - [id number] Implanted:Qty: 1 on 09/06/2022 by Sean Silva MD at [facility] Left: Leg Upper RICHELLE : TRAUMA 06/01/2032 [id number] / / [id number] documented as of this encounter Advance Directives Documents on File Type Date Recorded Patient Mh Teacher Expl anation POLST 10/17/2022 [place] DERS FOR LIFE-SUSTAINING TREATMENT POLST 09/10/2022 [place] DERS FOR LIFE-SUSTAINING TREATMENT Latest Code [...] Agen t (per Health Care Power of Career Consultant document) Reji Tello Dotts Adult Child First Alterna te Health Care Agent (per Health Care Power of Career Consultant document) Bowen Tello Adult Child First Alternate Health Care Agent (per Health Care Power of Career Consultant document) Care Teams Talent Specialist Relationship Specialty Start Date End Date Zenobia Lyon MD [address] [place] [address] [place] [address] PCP - General Family Medicine 05/22/23 documented as of this encounter
--- OUTSIDE RECORDS SUMMARY | 2023-09-14 08:06 | External Medical Summary | Summary of Care ---
Author Name Unknown Organization [facility] Address [address] [place] [facility] [place] [address] Phone [phone] Care Team Providers Care Industrial Maintenance Electrician Name Role Phone Zenobia Lyon MD Primary Care Provide r Reason for Visit * Reason Onset Date Comments [facility]: Maintenance 08/21/2023 Encounter Details Date Type Department Care Team (Late st Contact Info) Description 08/21/2023 Telephone [facility], [facility] [address] [facility] [place] [address] [facility], Nurse [address] [place] [address] [facility]: Maintenance Allergies Active Allergy [...] 75 MG Oral Tablet (pLAVix)Indications: Atherosclerosis of [place] coronary artery of [place] heart without angina pectoris Take 1 Tablet [...] control in clinical research program 03/25/2015 Overview: [employer] Product Surveillance Registry PI: Kylah Lilly IV, [...] ATHEROSCLEROSIS OF UNSPECIFIED TYPE OF VESSEL, LOWER [place] OR GRAFT Last Assessment & Plan: Stable. [...] without hematuria 05/30/2022 01/24/2023 Overview: Xavier to [facility] 04/20-04/29 urosepsis multi drug resistant E. Coli [...] MCG/0.3 mL, 12 YRS AND ABOVE, IM ([employer]) 07/19/2023 Covid-19, Mrna, Lnp-s, Pf, B ivalent, [...] Encounter - Carly Cano RN - 08/22/2023 7:53 AM EST Patients daughter aware of critical lab result of hgb, 5.7 By Mariposa ARREDONDO at 1:35 am today, patient going to [facility] ED. Carly Cano RN Sheet Metal Worker Apprentice [facility] * Telephone Encounter - Carly Cano RN - 08/21/2023 5:56 PM EST Checked for blood work results several times. As of 5:57 pm they are not released yet, in process. Carly Cano RN Sheet Metal Worker Apprentice [facility] * Telephone Encounter - Simran Murillo RN - 08/21/2023 4:32 PM EST As of 4:30pm 08/21/23 labs remain in process Message routed to intake pool to [facility] to monitor results poss need for transfusion depending on labs Once labs result please route to [facility] and Dr Pietro Sykes hem/onc If tranfusion is desired will need appt at hem/onc clinic Simran Murillo RN, BSN [facility] branch customer service representativeSheet Metal Worker Apprentice documented in this encounter Plan of Treatment Upcoming Encounters Date Type Department Care Team (Late st Contact Info) Description 08/22/2023 9:00 AM EST Scheduled Telephone [facility], [facility] [address] [facility] [place] [address] Coordinator, [facility] [address] [facility] [place] [address] 08/29/2023 3:30 PM EST Office Visit Cardiology [address] [place] [address] Chris Choudhury PA-C [address] [place] [address] 09/06/2023 9:10 AM EST Laboratory Lab Mobile Phlebotomy [facility] [address] [place] [address] [facility] Mobile Home Draw [address] [place] [address] 09/20/2023 9:10 AM EST Laboratory Lab Mobile Phlebotomy [facility] [address] [place] [address] [facility], [facility] Home Draw [address] [place] [address] 09/29/2023 10:00 AM EST Home Visit [facility], [facility] [address] [place] [address] Lila Brownlee RN [address] [place] [address] 10/04/2023 9:10 AM EST Laboratory Lab Mobile Phlebotomy [facility] [address] [facility] [address] [facility] Home Draw [address] [place] [facility] [place] [address] 10/18/2023 9:10 AM EST Laboratory Lab [facility] [address] [place] [address] [facility] Draw [address] [place] [address] 10/19/2023 4:20 PM EST Office Visit [address] [phone] Zenobia Lyon MD [address] [place] [address] [place] [address] 11/01/2023 9:10 AM EST Laboratory Lab Mobile Phle[facility] [address] [place] [address] [facility] [address] [place] [address] 11/15/2023 9:10 AM EST Laboratory Lab [facility] Phle[facility] [address] [place] [address] [facility] Draw [address] [place] [address] 11/29/2023 9:10 AM EST Laboratory Lab [facility] Phle[facility] [address] [place] [address] [facility] [address] [place] [address] 12/13/2023 9:10 AM EDT Laboratory Lab [facility] [address] [place] [address] [facility] [address] [place] [address] 01/26/2024 4:20 PM EDT Office Visit [address] [phone] Zenobia Lyon MD [address] [place] [address] [place] [address] Scheduled Procedures Name Priority Associated Diagnoses Date/Ti [...] Additional history exists CKD PHOS USE SMARTSET 59750 07/25/202407/03, 09/07/2022, 09/05/2022, Additional history exists CKD HGB USE SMARTSET 24956 08/21/202408/21, 08/21/2023, 08/09/2023, Additional history exists COLONOSCOPY-EVERY [...] this encounter Medical Devices Implanted Type Area Direct Sales Professional Device Identifier Shelf Expiration Date Model / Serial / Lot Screw T2 Alpha Lock 5x47.5mm - [id number] Implanted:Qty: 1 on 09/06/2022 by Sean Silva MD at [facility] Left: Leg Upper RICHELLE : TRAUMA 06/01/2032 [id number] / / [id number] documented as of this encounter Advance Directives Documents on File Type Date Recorded Patient Medical Record Retrieval Specialist Expl anation POLST 10/17/2022 [place] OR DERS [...] Agen t (per Health Care Power of Housekeeping Manager document) Reji Tello Dotts Adult Child First Alterna te Health Care Agent (per Health Care Power of Housekeeping Manager document) Bowen Tello Adult Child First Alternate Health Care Agent (per Health Care Power of Housekeeping Manager document) Care Teams Industrial Maintenance Electrician Relationship Specialty Start Date End Date Zenobia Lyon MD [address] [place] [address] [place] [phone] PCP - General Family Medicine 05/22/23 documented as of this encounter
[2023-09-14] MEDS: FINASTERIDE 5 MG TAB PO SCH (08:17)
[2023-09-14] MEDS: FUROSEMIDE 40 MG TAB PO SCH (08:17)
[2023-09-14] MEDS: LOSARTAN POTASSIUM 50 MG TAB PO SCH (08:17)
[2023-09-14] MEDS: METOPROLOL SUCC 50MG EXT REL TAB PO SCH (08:17)
[2023-09-14] MEDS: PANTOprazole 40 MG TAB PO SCH (08:17)
[2023-09-14] MEDS: CLOPIDOGREL BISULFATE 75 MG TAB PO SCH (08:17)
[2023-09-14] MEDS: POTASSIUM CHLORIDE CRTAB 20 MEQ TABCR PO SCH (08:17)
[2023-09-14] MEDS: FERROUS SULFATE 325 MG TAB PO SCH ×2 (08:18→21:13)
[2023-09-14] MEDS: METHENAMINE HIPPURATE 1 GM TAB PO SCH ×2 (08:18→21:13)
[2023-09-14] MEDS: LATANOPROST 0.005% OP SOLN 2.5 ML BTL OPB SCH (08:20)
[2023-09-14] MEDS: FLUTICASONE/VILANTEROL 200/25MCG 14 PUFFS/INHALER INH SCH (08:21)
[2023-09-14] MEDS: INSULIN ASPART PER UNIT CHARGE SC SCH ×4 (08:23→21:30)
[2023-09-14 08:32] LABS: BUN Creatinine Ratio 21.2 (10-20); Calcium 8.7 mg/dl (8.6-10.3); Creatinine Clr Calc Pharmacy 37.6 ml/min; Est GFR (African American) 48.7 ml/min; Potassium 3.9 mmol/L (3.5-5.1)
[2023-09-14 08:54] LABS: Hematocrit (blood only) 24.9 % (42.0-52.0); Hemoglobin 7.9 g/dl (14.0-18.0); Mean Corpuscular Hemoglobin 31.5 pg (25.0-34.0); Mean Corpuscular Hgb Conc 31.7 g/dL (32.0-36.0); Mean Corpuscular Volume 99.2 fL (80.0-100.0); Mean Platelet Volume 9.4 fL (9.4-12.4); Platelet Count 193 K/uL (130-400); RDW Standard Deviation 72.2 fL (36.4-46.3); Red Blood Count 2.51 M/uL (4.70-6.10); White Blood Count 4.38 K/ul (4.8-10.8)
--- NOTE | 2023-09-14 08:58 | Electrocardiogram Report ---
Test Reason : Blood Pressure : / mmHG Vent. Rate : 093 BPM Atrial Rate : 084 BPM P-R Int : 000 ms QRS Dur : 158 ms QT Int : 426 ms P-R-T Axes : 000 233 059 degrees QTc Int : 529 ms Ventricular-paced rhythm Abnormal ECG When compared with ECG of 22-AUG-2023 03:25, Vent. rate has increased BY 23 BPM Confirmed by Joe Menard ([id number]) on 09/14/2023 8:58:21 AM Referred By: REFERRED SELF Confirmed By:Joe Menard
--- OUTSIDE RECORDS SUMMARY | 2023-09-14 10:04 | External Medical Summary ---
Author Name Unknown Address Unknown Organization K01:[facility] [place] [address] [place] [address] Laboratory Report Ordering Provider Test Date Status DEB BULL 09/13/2023 10:00:00 Final Observation Date Value Abnormality Reference (Units ) Status Ferritin 09/13/2023 10:00:00 40 30-400 (ng /mL) Final Performing Location [facility] - [address] [place] [address]
[2023-09-14] MEDS ORDERED: SODIUM CHLORIDE 0.9% 250 ML IV PRN (11:01)
--- NOTE | 2023-09-14 16:01 | Hospitalist Progress Note ---
Date of Service September 14, 2023 Assessment & Plan (1) Symptomatic anemia: (2) Multiple myeloma: Plan: Patient presenting by referral of outpatient oncology office due to symptomatic acute on chronic anemia in the setting of multiple myeloma with outpatient Hgb of 5.[address] Pietro Sykes. 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: (6) CAD (coronary artery disease): Plan: Appears stable, appears euvolemic, no reports of chest pain Echo 07/2023-EF 60 to 65% Continue Plavix, beta-mike, ARB (7) Moderate persistent asthma: Plan: Chronic, stable No signs of acute exacerbation Continue home inhalers (8) BPH (benign prostatic hyperplasia): Plan: Chronic, stable Continue home meds (9) Type II diabetes mellitus: Plan: Hgb A1c 5.5 07/2023 Hold oral agents and utilize NovoLog per protocol while hospitalized, would allow for more labile control secondary to patient's advanced age (10) CKD stage 3 due to type 2 diabetes mellitus: Plan: Baseline creatinine mid 1s, creatinine 1.4 today Monitor renal functions DVT PROPHYLAXIS SCDs due to anemia Patient seen in collaboration with Dr. Saucedo Admission and Anticipated Discharge Date Admission Date: September 13, 2023 Supervising Physician Co-Signing Physician Notes Patient is seen and examined at bedside. States having generalized weakness. No other complaints. Poor historian secondary to significant hearing impairment. Denied any chest pain, dyspnea. I personally reviewed blood work. On exam patient is moderately built and nourished, no apparent distress, normocephalic atraumatic, EOMI, decreased breath sounds, clear to auscultation, S1-S2, no murmur, no pedal edema, abdomen soft, nontender, normal bowel sounds, alert, awake, oriented, grossly no focal deficits,+ significant hearing impairment. Patient is being managed for symptomatic anemia secondary to multiple myeloma. Will transfuse 1 unit PRBC today. Monitor CBC. Denies any bleeding issues. Needs follow-up with oncology upon discharge. PT OT prior to discharge. I personally reviewed the record. Patient is interviewed and examined at bedside. Patient's care is coordinated with Sabina Caldera PA-C. Please refer to the documentation above for details of patient's presentation and for discussion of other issues. Subjective Seen and examined in 381-1. Feeling better today after blood transfusion yesterday. Still generally weak. Denies any fever, chills, lightheadedness, chest pain, shortness of breath, nausea, vomiting, abdominal pain, dysuria, diarrhea or constipation. Review of Systems Review of Systems: At least ten systems reviewed and negative except as noted in the HPI. Physical Exam Physical Exam: Gen: WD/WN, NAD, resting in bed, A&Ox2, appears chronically ill, pleasant HEENT: Normocephalic, atraumatic, conjunctivae moist, sclerae anicteric, mucous membranes moist Lung: diminished breath sounds bilaterally, no wheezes/rales/rhonchi Heart: Regular rate, regular rhythm, no murmurs, rubs, or gallops Abdomen: Soft, NT, ND +BS x 4 Extremities: no edema Skin: Warm, no rash, + pallor Results & Data Results & Data Vital Signs (Past 12 Hours) Vital Signs Temp Pulse Pulse Resp BP BP Pulse Ox 09/14/23 13:54 36.6 C 69 18 147/64 H 94 09/14/23 13:45 36.6 C 69 18 147/64 H 94 09/14/23 13:43 36.6 C 69 18 147/64 H 09/14/23 12:43 36.5 C 64 18 158/64 H 98 09/14/23 12:13 36.5 C 88 18 154/71 H 96 09/14/23 11:58 36.6 C 72 18 145/72 H 94 09/14/23 11:38 36.6 C 75 18 154/67 H 95 09/14/23 07:40 36.7 C 70 18 164/69 H 95 O2 Del Method 09/14/23 13:54 Room Air 09/14/23 13:45 09/14/23 13:43 09/14/23 12:43 09/14/23 12:13 09/14/23 11:58 09/14/23 11:38 09/14/23 07:40 Room Air Laboratory Results Short CBC 09/13/23 09/14/23 Range/Units 16:46 07:34 WBC 4.39 L 4.38 L (4.8-10.8) K/ul Hgb 6.1 L* 7.9 L (14.0-18.0) g/dl Hct 19.7 L* 24.9 L (42.0-52.0) % Plt Count 194 193 (130-400) K/uL BMP 09/13/23 09/14/23 16:46 07:34 Sodium 144 143 Potassium 4.0 3.9 Chloride 103 103 Carbon Dioxide 29 28 BUN 33 H 31 H Creatinine 1.44 H 1.46 H Glucose 145 H 94 Calcium 8.9 8.7 Liver Function 09/13/23 Range/Units 16:46 Total Bilirubin 0.4 (0.2-1.0) mg/dl AST 11 L (13-39) U/L ALT 5 L (7-52) U/L Alkaline Phosphatase 28 L (34-104) U/L Albumin 3.0 L (3.4-5.0) gm/dl Diagnostic Findings Chest X-Ray 09/13/23 16:32 XR chest 1V portable HISTORY: 88 years-old Male weak acute weakness COMPARISON: 08/22/2023 TECHNIQUE: AP view of the chest FINDINGS: Cardiac silhouette is enlarged. Median sternotomy. Left subclavian pacer/AICD. No pneumothorax, pleural effusion or airspace consolidation. Degenerative changes of the shoulders and spine. IMPRESSION: Cardiomegaly without acute process. ACT 112: Negative or not required by law. The above report was generated using voice recognition software. It may contain grammatical, syntax or spelling errors. Electronically signed by: Sourav Lr M.D. 09/13/2023 5:15 PM
[2023-09-14] MEDS ORDERED: FUROSEMIDE INJ 20 MG/2 ML VIAL IV ONE (17:00)
[2023-09-14] MEDS: MAGNESIUM OXIDE 400 MG TAB PO SCH (21:13)
[2023-09-15 07:22] LABS: Hematocrit (blood only) 26.4 % (42.0-52.0); Hemoglobin 8.2 g/dl (14.0-18.0); Mean Corpuscular Hemoglobin 30.8 pg (25.0-34.0); Mean Corpuscular Hgb Conc 31.1 g/dL (32.0-36.0); Mean Corpuscular Volume 99.2 fL (80.0-100.0); Mean Platelet Volume 9.5 fL (9.4-12.4); Platelet Count 187 K/uL (130-400); RDW Coefficient of Variation 20.3 % (11.5-14.5); RDW Standard Deviation 69.4 fL (36.4-46.3); Red Blood Count 2.66 M/uL (4.70-6.10); White Blood Count 4.38 K/ul (4.8-10.8)
[2023-09-15 07:43] LABS: BUN Creatinine Ratio 20.7 (10-20); Calcium 8.6 mg/dl (8.6-10.3); Creatinine Clr Calc Pharmacy 33.5 ml/min; Est GFR (African American) 42.3 ml/min; Est GFR (Non-African American) 36.5 ml/min; Magnesium 2.1 mg/dl (1.7-2.4); Potassium 3.8 mmol/L (3.5-5.1)
[2023-09-15] MEDS: FUROSEMIDE 40 MG TAB PO SCH (08:20)
[2023-09-15] MEDS: FLUTICASONE/VILANTEROL 200/25MCG 14 PUFFS/INHALER INH SCH (08:20)
[2023-09-15] MEDS: CLOPIDOGREL BISULFATE 75 MG TAB PO SCH (08:20)
[2023-09-15] MEDS: FINASTERIDE 5 MG TAB PO SCH (08:20)
[2023-09-15] MEDS: PANTOprazole 40 MG TAB PO SCH (08:20)
[2023-09-15] MEDS: METHENAMINE HIPPURATE 1 GM TAB PO SCH (08:20)
[2023-09-15] MEDS: FERROUS SULFATE 325 MG TAB PO SCH (08:20)
[2023-09-15] MEDS: LOSARTAN POTASSIUM 50 MG TAB PO SCH (08:21)
[2023-09-15] MEDS: METOPROLOL SUCC 50MG EXT REL TAB PO SCH (08:21)
[2023-09-15] MEDS: LATANOPROST 0.005% OP SOLN 2.5 ML BTL OPB SCH (08:21)
[2023-09-15] MEDS: POTASSIUM CHLORIDE CRTAB 20 MEQ TABCR PO SCH (08:24)
[2023-09-15] MEDS: INSULIN ASPART PER UNIT CHARGE SC SCH ×2 (08:42→12:43)
--- NOTE | 2023-09-15 16:59 | Discharge Summary ---
Discharge Summary Date of Service September 15, 2023 Notes For Next Care Provider Anemia of chronic disease in setting of multiple myeloma, received 3 units PRBCs Medication Changes From Visit None Admission HPI Per Admitting Provider 88-year-old male with PMH DM type II, CKD stage III, moderate persistent asthma, CAD, ischemic cardiomyopathy, HTN, persistent atrial fibrillation, infrarenal AAA, chronic diastolic CHF, GERD, BPH, multiple myeloma, Alzheimer's dementia, and other problems listed below who presents to the ED for evaluation of anemia. History obtained from the patient and his son who is at the bedside and review of outpatient PCP, cardiology, oncology records. Patient undergoes weekly CBCs due to chronic anemia secondary to multiple myeloma. Outpatient labs today showed Hgb 5.9. Due to fatigue and shortness of breath, patient was referred to the ED for further evaluation. Due to underlying Alzheimer's dementia, history is somewhat limited from the patient. He currently offers no complaints. However son states that he is visibly short of breath and fatigued. No chest pain. Denies abdominal pain, nausea, vomiting, diarrhea. No bright red blood in rectum or dark tarry stools. Denies lightheadedness and dizziness. No other recent illnesses, fevers, chills. Denies urinary symptoms. In the ED, labs show Hgb 6.1. Patient is hemodynamically stable. He has been typed and crossed for 2 units PRBC. Admission Exam Per Admitting Provider Constitutional: WD/WN, vitals as above no acute distressEyes: PERRL, conjunctivae normal, anicteric scleraeENMT: external ear and nose normal, oropharynx normalRespiratory: normal respiratory effort, lungs clear to auscultationCardiovascular: Rate/Rhythm: regular rate and regular rhythm Vessels: normal peripheral pulses Extremities: no edemaGastrointestinal (Abdomen): normal bowel sounds, soft, nontender, no hepatosplenomegaly Musculoskeletal: no cyanosis or clubbing, extremities motor strength 5/5Skin: no rashes, warm and dry + pallorNeurologic: PERRL, EOMI, accommodation nl, no face palsy, no dysarthriaPsychiatric: Orientation: alert, oriented to person and oriented to place; + not oriented to time Insight: + limited insight Principal Dx & Hospital Course #1 = Principal Diagnosis (1) Symptomatic anemia: (2) Multiple myeloma: 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 Initial outpatient hemoglobin was 5.9. Follows with Dr. Pietro Sykes. Due to patient's advanced age, patient and family have elected for nonaggressive treatment of multiple myeloma. Was transfused a total of 3 units of PRBCs total during admission with IV lasix treatment following transfusions due to history of ischemic heart myopathy and chronic diastolic CHF. Hemoglobin today back to 8.2, which is baseline. Patient feeling well and more energized. Difficult to obtain full ROS due to significant hearing impairment and dementia. Creatinine at upper limit of his normal baseline of mid ones (has been 1.4-1.6 during admission). Recommend repeat BMP at PCP follow-up appointment. updated and okay with patient returning home today. PT/OT evaluations recommending return home. Patient hemodynamically stable and comfortable at time of discharge. Discharge Exam Gen: WD/WN, NAD, resting in bed, A&Ox2, appears chronically ill, pleasant HEENT: Normocephalic, atraumatic, conjunctivae moist, sclerae anicteric, mucous membranes moist Lung: diminished breath sounds bilaterally, no wheezes/rales/rhonchi Heart: Regular rate, regular rhythm, no murmurs, rubs, or gallops Abdomen: Soft, NT, ND +BS x 4 Extremities: no edema Skin: Warm, no rash, + pallor Updated Medication List Medication Instructions Recorded Confirmed Type albuterol sulfate 90 mcg/actuation 2 puff inhalation QID PRN 06/07/18 09/13/23 History aerosol inhaler (Proventil HFA) Shortness Of Breath digoxin 125 mcg (0.125 mg) tablet 125 mcg PO 3XWK 06/07/18 09/13/23 History fluticasone 250 mcg-salmeterol 50 1 inh inhalation AMHS 06/07/18 09/13/23 History mcg/dose blistr powdr for inhalation (Advair Diskus) magnesium oxide 400 mg (241.3 mg 400 mg PO PM 06/07/18 09/13/23 History magnesium) tablet potassium chloride 20 mEq 20 meq PO QAM 06/07/18 09/13/23 History tablet,extended release(part/cryst) (Klor-Con M) furosemide 40 mg tablet (Lasix) 40 mg PO QAM 04/25/19 09/13/23 History latanoprost 0.005 % eye drops 1 drp OPB QAM 03/24/20 09/13/23 History pantoprazole 40 mg tablet,delayed 40 mg PO QAM 10/22/21 09/13/23 History release clopidogrel 75 mg tablet 75 mg PO QAM 04/20/22 09/13/23 History triamcinolone acetonide 0.1 % 1 applic topical BID PRN rash or 04/20/22 09/13/23 History topical ointment more instead of scratching ferrous sulfate 325 mg (65 mg 325 mg PO BID 08/28/22 09/13/23 History iron) tablet (FeroSul) losartan 50 mg tablet 50 mg PO QAM 08/28/22 09/13/23 History metoprolol succinate 50 mg 50 mg PO QAM 08/28/22 09/13/23 History tablet,extended release 24 hr multivitamin 1 tab PO DAILY 08/28/22 09/13/23 History methenamine hippurate 1 gram tablet 1 g PO BID 30 days #60 tabs 11/25/22 09/13/23 Rx glipizide 5 mg tablet, extended 5 mg PO QAM 04/20/23 09/13/23 History release 24 hr acetaminophen 500 mg tablet 500 mg PO BID PRN Pain 08/22/23 09/13/23 History dutasteride 0.5 mg capsule 0.5 mg PO QAM 08/22/23 09/13/23 History ondansetron HCl 4 mg tablet 4 mg PO Q6H PRN Nausea And Vomiting 08/22/23 09/13/23 History ciprofloxacin 0.3 %-dexamethasone 4 drp otic (ear) BID 09/13/23 09/13/23 History 0.1 % ear drops,suspension Hospital Stay Data Consultations 09/13/23 17:26 ED Decision to Admit Stat Pending Results Patient Have Any Pending Studies at Discharge: No Discharge Instructions Given to Patient (Per Discharging Provider) MEDICATION CHANGES: No changes SUMMARY OF TEST RESULTS: You were admitted to hospital secondary low blood counts in setting of Multiple Myeloma. Blood counts have returned to baseline after transfusing 3 units of packed red blood cells. PENDING TEST RESULTS: None RECOMMENDATIONS FOR FOLLOW-UP: Follow up with PCP as scheduled. Repeat CBC and BMP at follow up. OTHER INSTRUCTIONS: Seek medical attention if you have: * temperature above 101 * chest pain or trouble breathing * abdominal pain, nausea, vomiting * diarrhea, dark stools or bloody stools * any unanswered questions or concerns Call 911 if symptoms are severe. Please take good care of yourself. Call if you have any questions or problems. You can reach a [facility] hospitalist on duty at [facility] 24 hours a day by calling [phone]. Total Time Total Time Spent Total Time Spent (In Minutes): 50 Supervising Physician Co-Signing Physician Notes Patient is seen and examined at bedside on day of discharge. Patient offers no complaints today. Poor historian secondary to significant hearing impairment, dementia. Hb stable today. Denied any chest pain, dyspnea. I personally reviewed blood work. On exam patient is moderately built and nourished, no apparent distress, normocephalic atraumatic, EOMI, decreased breath sounds, clear to auscultation, S1-S2, no murmur, no pedal edema, abdomen soft, nontender, normal bowel sounds, alert, awake, oriented, grossly no focal deficits,+ significant hearing impairment. Patient is being managed for symptomatic anemia secondary to multiple myeloma. S/P 3 units PRBCs. Advised to follow-up with PCP, oncology upon discharge. I personally reviewed the record. Patient is interviewed and examined at bedside. Patient's care is coordinated with Sabina Caldera PA-C. Please refer to the documentation above for details of patient's presentation and for discussion of other issues.
== END 2023-09-15 15:38 | disposition home or self-care (01) | DRG 841 ==
LOC: ED 16:23 → EDINP 17:34 → SUATTDRO 17:34 → 3N 20:04

== ENCOUNTER 2023-09-23 16:24 | Inpatient (IN) ==
[2023-09-23] MEDS ORDERED: OXYMETAZOLINE 0.05% 30 ML BTL ONE ×2 (16:30→18:18)
--- OUTSIDE RECORDS SUMMARY | 2023-09-23 16:35 | External Medical Summary ---
Author Name Unknown Address Unknown Organization [facility] [address] [place] [address] Laboratory Report Ordering Provider Test Date Status DEB BULL 09/20/2023 09:27:00 Final Observation Date Value Abnormality Reference (Units ) Status Nucleated erythrocytes/100 leukocytes [Ratio] in Blood by Automated count 09/20/2023 09:27:00 Final Performing Location [facility] [address] [place] [id number]
--- OUTSIDE RECORDS SUMMARY | 2023-09-23 16:35 | External Medical Summary | Summary of Care ---
Author Name Unknown Organization [facility] Address [address] [place] [address] Phone [phone] Care Team Providers Care Filler Machine Operator Name Role Phone Zenobia Lyon MD Primary Care Provide r Reason for Referral * Ancillary Services (Within 10 days (routine)) - Authorized Specialty Diagnoses / Procedures Referred By Contac t Referred To Contact Farm Operations Manager Diagnoses Multiple myeloma not having achieved remission (HCC) Brennen Kay PA-C [address] [place] [address] Referral ID Status Reason Start Date Expiration Date Visits Requested Visits Authorized [id number] Authorized Ancillary Services Required 3 [phone] Question Answer Referral Priority Within 10 days (routine) Where should this appointment be scheduled? [facility] Comments Is Patient homebound? Yes All sections [...] on the next service day for the [facility] Phlebotomy does not service every geographical location on a daily basis. Contact [facility] Client Services at to find out service days for a specific location. Medical Laboratory [address] [place] [phone] Willie Paulino M.D. Director and Registered Dietetic Technician Patient Name: Marshall Tello Sr. : 1935 Sex: male Address [facility] [address] [place], [place] [address] [phone] Provider: Self? Zenobia Lyon MD? 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) I48.11 Longstanding persistent atrial fibrillation (HCC) Tests Requested CBCd - weekly starting September 27, 2023 Encounter Details Date Type Department Care Team (Late st Contact Info) Description 09/21/2023 11:00 AM EST Home Visit [facility] [address] [place] [address] Brennen Kay PA-C [address] [place] [address] Palliative care encounter*; Advanced care planning/counseling discussion; Multiple myeloma not having achieved remission (HCC); 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 100 Tablet 0 10/28/2022 Active Ondansetron HCl 4 MG Oral Tablet [...] 75 MG Oral Tablet (pLAVix)Indications: Atherosclerosis of iroquois coronary artery of iroquois heart without angina pectoris Take 1 Tablet [...] days. 6 mL 0 09/08/2023 3 Active glipiZIDE ER 5 MG Oral Tablet Extended Release 24 Hour (glipiZIDE XL) Take 1 Tablet by mouth in the morning. 30 minutes before a meal.. 90 Tablet 0 09/18/2023 Active documented as of this encounter (statuses as of 09/22/2023) Active Problems Patient Care Coordination No te [...] as of this encounter (statuses as of 09/22/2023) Resolved Problems Problem Noted Date Diagnosed Date [...] hematuria 05/30/2022 01/24/2023 Overview: [facility] to [facility] 04/20-04/29 [...] as of this encounter (statuses as of 09/22/2023) Immunizations Name Administration Dates Next Due COVID-19 mRNA, LNP-s, No Pre serve, 2-Dose Series (Moderna) 08/24/2021,12/07/2020,11/09/2020 COVID-19, MRNA-LNP, 23-24, P F, 30 MCG/0.3 mL, 12 YRS AND ABOVE, IM ([facility] 07/19/2023 Covid-19, Mrna, Lnp-s, Pf, B ivalent, 30 Mcg, IM, 12 yrs and above (Pfizer) 08/29/2022 Pneumococcal Conjugate Vacc, 13 Valent (Prevnar) 01/30/2015 Pneumococcal Polysaccharide PPV23 (Pneumovax) 01/22/2019,08/22/2006 Season Influenza, Quad, PF, Adjuvanted, 65+ Yrs, IM (FLUAD) 06/22/2020 Seasonal Influenza, PF, 6 M & above, IM , (FluLaval or Fluzone) 06/26/2018,06/28/2017 Seasonal Influenza, Quadriva lent Hd (Fluzone [...] Progress Notes * Brennen Kay PA-C - 09/21/2023 11:37 AM EST [facility] Palliative Medicine Progress Note Date: 09/21/2023 Time: 11:00 Name: Marshall Zurita Omer Sr. 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 Will schedule [...] prepares meals and manages medications. 04/20-04/25/23 - [facility], symptomatic anemia, GI consulted, 3 units prbc 05/19/23 -outpatient transfusion. Family has not noticed any improvement of fatigue. 07/14 - 4 units 08/22 - 4 units 09/13-09/15 - 3 units Multiple myeloma that family elected not to treat Continues with fatigue, sleeping about 20 hours daily. He remains fairly stable overall today. Frequency of blood transfusions have been gradually increasing. Last transfusion was not scheduled and ended being admitted to [facility] for 2 nights. Currently getting labs q 2 weeks, will need to increase to q1 week. Pain: left side rib pain, tylenol bid Nausea: no Vomiting: no Confusion: yes, reviewed Somnolence: yes, reviewed Constipation: no Dyspnea: no Anxious: no Support: spouse, daughter next door, son close Med Management: spouse Ambulates: independent HISTORY: Social History Tobacco Use Smoking status: Former Packs/day: 1.00 Years: 20.00 Additional pack years: 0.00 Total pack years: 20.00 Types: Cigarettes Quit date: 10/02/1969 Years since quittin.0 Smokeless tobacco: Never Tobacco comments: 1969 Substance Use Topics Alcohol use: Not Currently Comment: rare 88 year old year-old male with the following active problems: Patient Active Problem List Diagnosis Code CORONARY ATHEROSCLEROSIS OF UNSPECIFIED TYPE OF VESSEL, CITIZEN [place] I25.10 Elevated prostate specific antigen [...] (HCC) J44.9 Other specified peripheral vascular diseases (HCC) I73.89 Type 2 diabetes mellitus with peripheral [...] due to extrinsic circulating anticoagulants (HCC) D68.32 Current Outpatient Medications Medication Sig Dispense Refill [...] morning and evening meals. 100 Tablet 0 Ondansetron HCl 4 MG Oral Tablet [...] this for 14 days. 6 mL 0 glipiZIDE ER 5 MG Oral Tablet Extended Release 24 Hour (glipiZIDE XL) Take 1 Tablet by mouth in themorning. 30 minutes before a meal.. 90 Tablet 0 No current facility-administered medications for this visit. Physical Exam: BP Readings from Last 3 Encounters: 08/29/23 134/58 08/28/23 178/78 07/25/23 122/60 { Wt Readings from Last 3 Encounters: 09/08/23 91.8 kg (202 lb 4.8 oz) 08/29/23 91.1 kg (200 lb 12.8 oz) 07/25/23 90.3 kg (199 lb) Vital signs: There were no vitals taken for this visit. General: alert and no distress Neuro: alert & oriented x 2 with fluent speech Heart: no murmur and irregularly irregular Lungs: no chest wall tenderness, lungs clear to auscultation, no wheeze, no rales, no rhonchi Abdomen: abdomen soft, non-tender, normal bowel sounds, and no rebound or guarding Ext: Normal extremities without edema Recent Results: Component Latest Ref Rng 09/13/2023 09/20/2023 BUN 6 - 20 mg/dL 35 (H) 32 (H) Creatinine 0.6 - 1.2 mg/dL 1.6 (H) 2.0 (H) Estimated Glomerular Filtration Rate >=60 mL/min 41 (L) 31 (L) Sodium 135 - 146 mmol/L 142 143 Potassium 3.5 - 5.1 mmol/L 4.5 4.6 Chloride 98 - 107 mmol/L 101 99 CO2 22 - 32 mmol/L 26 26 Anion Gap 7 - 15 mmol/L 15 18 (H) Glucose 70 - 120 mg/dL 152 (H) 154 (H) Albumin 3.8 - 5.0 g/dL 3.0 (L) 2.9 (L) AST 10 - 50 U/L 12 14 Alkaline Phosphatase 35 - 130 U/L 31 (L) 33 (L) Bilirubin, Total <=1.2 mg/dL 0.3 0.2 Calcium 8.4 - 10.2 mg/dL 9.4 9.6 Protein 6.0 - 8.3 g/dL 8.1 8.4 (H) ALT 10 - 50 U/L 6 (L) 7 (L) WBC 4.00 - 10.80 K/uL 4.21 3.60 (L) Neutrophils % 40.0 - 75.0 % 45.6 38.1 (L) Lymphocytes % 18.0 - 42.0 % 28.3 31.1 Monocytes % 1.0 - 11.0 % 14.0 (H) 13.6 (H) Eosinophils % 0.0 - 6.0 % 11.4 (H) 16.4 (H) Basophils % 0.0 - 2.0 % 0.7 0.8 Absolute Neutrophils 1.80 - 7.70 K/uL 1.92 1.37 (L) Absolute Lymphocytes 1.00 - 4.80 K/ul 1.19 1.12 Absolute Monocytes 0.00 - 1.10 K/uL 0.59 0.49 Absolute Eosinophils 0.00 - 0.70 K/uL 0.48 0.59 Absolute Basophils 0.00 - 0.20 K/uL 0.03 0.03 WBC 4.00 - 10.80 K/uL 4.21 3.60 (L) RBC 4.50 - 5.25 M/uL 1.84 2.57 HGB 14.0 - 16.8 g/dL 5.9 (LL) 8.2 (L) HCT 40.0 - 48.4 % 20.0 (L) 27.1 (L) MCV 82.0 - 99.5 fL 108.7 105.4 MCH 27.0 - 34.0 pg 32.1 31.9 MCHC 32.0 - 36.0 g/dL 29.5 30.3 RDW 11.5 - 15.5 % 21.6 19.5 PLT 140 - 400 K/uL 203 184 MPV 6.6 - 11.1 fL 9.6 9.5 Ferritin 30 - 400 ng/mL 40 48 Legend: (H) High (L) Low (LL) Low Panic See top of note for assessment/plan Scheduled appointments in the next 60 days: Future Appointments-next 60 days Date/Time Provider Specialty Dept Phone 09/29/2023 10:00 AM Lila Brownlee RN [facility] [phone] 10/04/2023 9:10 AM [facility] [phone] 10/05/2023 10:20 AM (Arrive by 10:05 AM) Kasi Tejeda PA-C Otolaryngology [phone] 10/18/2023 9:10 AM [facility] [phone] 10/19/2023 11:20 AM (Arrive by 11:05 AM) Zenobia Lyon MD Family Medicine [phone] 11/01/2023 9:10 AM [facility] Processing [phone] 11/15/2023 9:10 AM [facility] Processing [phone] 11/29/2023 9:10 AM [facility] Processing [phone] 12/13/2023 9:10 AM [facility] Processing [phone] 01/26/2024 11:20 AM (Arrive by 11:05 AM) Zenobia Lyon MD Family Medicine [phone] 03/07/2024 1:00 PM (Arrive by 12:45 PM) Chris Choudhury PA-C Cardiology [phone] Brennen Kay PA-C [facility] [address] [facility] [place] [address] documented in this encounter Plan of Treatment Upcoming Encounters Date Type Department Care Team (Late st Contact Info) Description 09/29/2023 10:00 AM EST Home Visit [facility] [address] [facility] [place] [address] Lila Brownlee, RN [address] [place] [address] 10/04/2023 9:10 AM EST Laboratory Lab [facility] [address] [place] [address] [facility] [address] [place] [address] 10/05/2023 10:20 AM EST Office Visit Otolaryngology [facility] [address] [facility] [address] Kasi Tejeda PA-C [address] [place] [address] 10/18/2023 9:10 AM EST Laboratory [facility] [address] [place] [address] [facility] [place] Draw [address] [place] [address] 10/19/2023 11:20 AM EST Office Visit Family [address] [phone] Zenobia Lyon MD [address] [place] [address] [place] [address] 11/01/2023 9:10 AM EST Laboratory [facility] [address] [place] [address] [facility] [place] [address] [place] [address] 11/15/2023 9:10 AM EST Laboratory [facility] [address] [place] [address] [facility] [address] [place] [address] 11/29/2023 9:10 AM EST Laboratory [facility] [address] [place] [address] [facility] [place] [address] [place] [address] 12/13/2023 9:10 AM EDT Laboratory Lab [facility] [address] [place] [address] [facility] [place] [address] [place] [address] 01/26/2024 11:20 AM EDT Office Visit Family Medicine [address] [place] [phone] Zenobia Lyon MD [address] [place] [address] [place] [address] 03/07/2024 1:00 PM EDT Office Visit Cardiology [address] [place] [address] Chris Choudhury PA-C [address] [place] [address] Scheduled Procedures Name Priority Associated Diagnoses Date/Ti me COLONOSCOPY FLEXIBLE PROXIMA L DIAGNOSTIC Recall History of colonic polyps Scheduled Referrals Name Type Priority Associated Diagnoses Orde r Schedule HOME PHLEBOTOMY REFERRAL OP Referral Within 10 days (routine) Multiple myeloma not having achieved remission (HCC) Ordered: 09/22/2023 Health Maintenance Due Date Last Done Comments [...] Additional history exists CKD PHOS USE SMARTSET 52962 07/25/202407/03, 09/07/2022, 09/05/2022, Additional history exists O2 ASSESSMENT COMPLETED IN PAST YEAR FOR COPD 08/28/2024 08/28/2023 CKD HGB USE SMARTSET 47361 09/20/202409/20, 09/20/2023, 09/13/2023, Additional history exists COLONOSCOPY-EVERY 5 YRS AGES [...] this encounter Medical Devices Implanted Type Area Mattress Specialist Device Identifier Shelf Expiration Date Model / Serial / Lot Screw T2 Alpha Lock 5x47.5mm - [id number] Implanted:Qty: 1 on 09/06/2022 by Sean Silva MD [place] [facility] Left: Leg Upper RICHELLE : TRAUMA 06/01/2032 [id number] / / [id number] documented as of this encounter Visit Diagnoses Diagnosis Palliative care encounter- Primary Encounter for palliative care Advanced care planning/counseling discussion Other specified counseling Multiple myeloma not having achieved remission (HCC) Multiple myeloma, without mention of having achieved remission 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) Longstanding persistent atrial fibrillation (HCC) documented in this encounter Advance Directives Documents on File Type Date Recorded Patient Motorcycle Maker Expl anation POLST 10/17/2022 [place] DERS [...] Agen t (per Health Care Power of Gear Milling Machine Set Up Operator document) Reji Tello Dotts Adult Child First Alterna te Health Care Agent (per Health Care Power of Gear Milling Machine Set Up Operator document) Bowen Tello Adult Child First Alternate Health Care Agent (per Health Care Power of Gear Milling Machine Set Up Operator document) Care Teams Filler Machine Operator Relationship Specialty Start Date End Date Zenobia Lyon MD [address] [place] [address] [place] [phone] PCP - General Family Medicine 05/22/23 documented as of this encounter
--- OUTSIDE RECORDS SUMMARY | 2023-09-23 16:35 | External Medical Summary ---
Author Name Unknown Address Unknown Organization K0G:LABORATORY [facility] [address] [place] [address] Laboratory Report Ordering Provider Test Date Status DEB BULL 09/20/2023 09:27:00 Final Observation Date Value Abnormality Reference (Units ) Status BUN 09/20/2023 09:27:00 32 Above high normal 6-20 (mg/dL) Final Creatinine 09/20/2023 09:27:00 2.0 Above high normal 0.6-1.2 (mg/dL) Final Glomerular filtration rate/1.73 sq M.predicted [Volume Rate/Area] in Serum, Plasma or Blood by Creatinine-based formula (CKD-EPI) 09/20/2023 09:27:00 31 Below low normal >=60 (mL/min) Final eGFR is calculated based on the CKD-EPI 2020 equation SODIUM 09/20/2023 09:27:00 143 135-146 (m mol/L) Final Potassium 09/20/2023 09:27:00 4.6 3.5-5.1 (m mol/L) Final Cl 09/20/2023 09:27:00 99 98-107 (mm ol/L) Final CO2 09/20/2023 09:27:00 26 22-32 (mmo l/L) Final Anion gap 09/20/2023 09:27:00 18 Above high normal 7- 15 (mmol/L) Final Glucose 09/20/2023 09:27:00 154 Above high normal 70 -120 (mg/dL) Final Albumin 09/20/2023 09:27:00 2.9 Below low normal 3.8 -5.0 (g/dL) Final AST (Aspartate aminotransferase) 09/20/2023 09:27:00 14 10-50 (U/L) Fin al Result may be falsely elevat ed due to hemolysis. Alk Phos 09/20/2023 09:27:00 33 Below low normal 35- 130 (U/L) Final Bilirubin, Total 09/20/2023 09:27:00 0.2 <=1 .2 (mg/dL) Final Calcium 09/20/2023 09:27:00 9.6 8.4-10.2 ( mg/dL) Final Protein 09/20/2023 09:27:00 8.4 Above high normal 6. 0-8.3 (g/dL) Final ALT (Alanine aminotransferase) 09/20/2023 09:27:00 7 Below low normal 10-50 (U/L) Final Performing Location LABORATORY [place] [address] [facility] [address]
--- OUTSIDE RECORDS SUMMARY | 2023-09-23 16:36 | External Medical Summary | Summary of Care ---
Author Name Unknown Organization [facility] Address [address] [place] [address] Phone [phone] Care Team Providers Care Farm Consultant Name Role Phone Zenobia Nunez MD Primary Care Provide r Reason for Visit * Reason Comments Medication Refill Encounter Details Date Type Department Care Team (Late st Contact Info) Description 09/17/2023 Refill Family [address] [phone] Muriel Moreira MD [address] [place] [address] [place] [address] Allergies Active Allergy Reactions Criticality Noted Date Comments James Inhibitors 09/10/2002 cough on prinivil Hydrocodone 09/05/2022 Family states AMS change when taken Prednisone 05/26/2011 Blisters in throat Sulfa Antibiotics 03/19/2001 dysurea documented as of this encounter (statuses as of 09/18/2023) Medications Medication Sig Dispensed Refills Start Date [...] evening meals. 100 Tablet 0 3 Active Ondansetron HCl 4 MG Oral [...] 75 MG Oral Tablet (pLAVix)Indications: Atherosclerosis of jamul coronary artery of jamul heart without angina pectoris Take 1 Tablet [...] the morning. 126 Tablet 2 3 Active Ciprofloxacin-dexAME THasone 0.3-0.1 % Otic Suspension Administer 4 Drops into ears in the morning and 4 Drops before bedtime. Do all this for 14 days. 6 mL 0 3 09/22/20 23 Active glipiZIDE ER 5 MG Oral Tablet Extended Release 24 Hour (glipiZIDE XL) Take 1 Tablet by mouth in the morning. 30 minutes before a meal.. 90 Tablet 0 3 Active glipiZIDE ER 5 MG Oral Tablet Extended Release 24 Hour (glipiZIDE XL) Take 1 Tablet by mouth in the morning. 30 minutes before a meal.. 30 Tablet 5 3 09/17/20 23 Discontinu ed(Refill) documented as of this encounter (statuses as of 09/18/2023) Active Problems Patient Care Coordination No te [...] CORONARY ATHEROSCLEROSIS OF UNSPECIFIED TYPE OF VESSEL, VENETIE IRA OR GRAFT Last Assessment & Plan: Stable. 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 leg ; Rt. tenriism 07/0207/18/2002 07/15/2015 Dyslipidemia, goal to [...] as of this encounter (statuses as of 09/18/2023) Immunizations Name Administration Dates Next Due COVID-19 [...] encounter Miscellaneous Notes * Telephone Encounter - Zaire Bush RPh - 09/18/2023 10:20 AM ESTSigned Prescriptions: Disp Refills glipiZIDE ER 5 MG Oral Tablet Extended Rel*90 Tab*0 Sig: Take 1 Tablet by mouth in the morning. 30 minutes before a meal..Authorizing Provider: Loi NUNEZ User: ZAIRE BUSH * Telephone Encounter - Zaire Bush RPh - 09/18/2023 10:17 AM EST Provided 1 refill until upcoming follow up OV. Thanks, Zaire [place], Rph, Pharm D. Clinical Pharmacist [facility] (Formerly Telepharmacy)/[facility] [phone] 09/18/2023,10:20 AM documented in this encounter Plan of Treatment Upcoming Encounters Date Type Department Care Team (Late st Contact Info) Description 09/18/2023 2:30 PM EST Scheduled Telephone [facility] [address] [address] Coordinator, [facility] [address] [address] 09/20/2023 9:10 AM EST Laboratory Lab Mobile Phlebotomy [facility] [address] [place] [address] [facility], [facility] Mobile Home Draw [address] [place] [address] 09/20/2023 11:20 AM EST Office Visit Family [address] [phone] Emely Chester PA-C [address] [place] [address] [place] [address] 09/21/2023 11:00 AM EST [facility] Visit [facility] [place], [facility] [address] [address] Brennen Kay PA-C [address] [address] 09/29/2023 10:00 AM EST Home Visit [facility] [place], [facility] [address] [address] Lila Brownlee, SANKET [address] [address] 10/04/2023 9:10 AM EST Laboratory Lab Mobile Phlebotomy [facility] [address] [place] [address] [facility], [facility] Mobile Home Draw [address] [place] [address] 10/05/2023 10:20 AM EST Office Visit Otolaryngology [facility] [address] [place] [address] Kasi Tejeda PA-C [address] [place] [address] 10/18/2023 9:10 AM EST Laboratory Lab Mobile Phlebotomy [facility] [address] [place] [address] [facility], [facility] Mobile Home Draw [address] [place] [address] 10/19/2023 11:20 AM EST Office Visit Family [address] [place] [phone] Zenobia Nunez MD [address] [place] [address] [place] [address] 11/01/2023 9:10 AM EST Laboratory Lab Mobile Phlebotomy [facility] [address] [place] [address] [facility], [facility] Mobile Home Draw [address] [place] [address] 11/15/2023 9:10 AM EST Laboratory Lab Mobile Phlebotomy [facility] [address] [place] [address] [facility], [facility] Mobile Home Draw [address] [place] [address] 11/29/2023 9:10 AM EST Laboratory Lab Mobile Phlebotomy [facility] [address] [place] [address] [facility], [facility] Mobile Home Draw [address] [place] [address] 12/13/2023 9:10 AM EDT Laboratory Lab Mobile Phlebotomy [facility] [address] [place] [address] [facility], [facility] Mobile Home Draw [address] [place] [address] 01/26/2024 11:20 AM EDT Office Visit Family Medicine [address] [place] [phone] Zenobia Nunez MD [address] [place] [address] [place] [address] 03/07/2024 1:00 PM EDT Office Visit Cardiology [address] [place] [address] Chris Choudhury PA-C [address] [place] [address] Scheduled Procedures Name Priority Associated Diagnoses Date/Ti [...] Additional history exists CKD PHOS USE SMARTSET 08862 07/25/202407/03, 09/07/2022, 09/05/2022, Additional history exists O2 ASSESSMENT COMPLETED IN PAST YEAR FOR COPD 08/28/2024 08/28/2023 CKD HGB USE SMARTSET 21767 09/13/202409/13, 09/13/2023, 09/06/2023, Additional history exists COLONOSCOPY-EVERY 5 YRS AGES [...] this encounter Medical Devices Implanted Type Area Income Tax Advisor Device Identifier Shelf Expiration Date Model / Serial / Lot Screw T2 Alpha Lock 5x47.5mm - [id number] Implanted:Qty: 1 on 09/06/2022 by Sean Silva MD at [facility] Left: Leg Upper RICHELLE : TRAUMA 06/01/2032 [id number] / / [id number] documented as of this encounter Advance Directives Documents on File Type Date Recorded 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
--- OUTSIDE RECORDS SUMMARY | 2023-09-23 16:36 | External Medical Summary ---
Author Name Unknown Address Unknown Organization K0G:LABORATORY [facility] [address] [place] [address] Laboratory Report Ordering Provider Test Date Status DEB BULL 09/20/2023 09:27:00 Final Observation Date Value Abnormality Reference (Units ) Status SYNC LEUKOCYTES IN BLOOD BY AUTOMATED COUNT 09/20/2023 09:27:00 3.60 Below low normal 4.00-10.80 (K/uL) Final Segs 09/20/2023 09:27:00 38.1 Below low normal 40.0-75.0 (%) Final Lymphs % 09/20/2023 09:27:00 31.1 18.0-42.0 (%) Final Monos 09/20/2023 09:27:00 13.6 Above high normal 1.0-11.0 (%) Final Eosinophils 09/20/2023 09:27:00 16.4 Above high normal 0.0-6.0 (%) Final Basos 09/20/2023 09:27:00 0.8 0.0-2.0 (%) Final Absolute Segs 09/20/2023 09:27:00 1.37 Below low normal 1.80-7.70 (K/uL) Final Lymphs, absolute 09/20/2023 09:27:00 1.12 1.00-4.80 (K/ul) Final Monos, Abs 09/20/2023 09:27:00 0.49 0.00-1.10 (K/uL) Final Eos, Abs 09/20/2023 09:27:00 0.59 0.00-0.70 (K/uL) Final Basos, Abs 09/20/2023 09:27:00 0.03 0.00-0.20 (K/uL) Final Performing Location LABORATORY [facility] [address] [place] [address]
--- OUTSIDE RECORDS SUMMARY | 2023-09-23 16:36 | External Medical Summary | Summary of Care ---
Author Name Unknown Organization [facility] Address [address] [facility] [address] Phone [phone] Care Team Providers Care Apparel Cutter Name Role Phone Zenobia Lyon MD Primary Care Provide r Reason for Visit * Reason Onset Date Comments [facility]: Maintenance 09/18/2023 Encounter Details Date Type Department Care Team (Late st Contact Info) Description 09/18/2023 2:30 PM EST Scheduled Telephone [facility], [facility] [address] [address] Coordinator, [facility] [address] [address] Allergies Active Allergy Reactions Criticality Noted Date [...] 75 MG Oral Tablet (pLAVix)Indications: Atherosclerosis of [place] coronary artery of [place] heart without angina pectoris Take 1 Tablet [...] without hematuria 05/30/2022 01/24/2023 Overview: Xavier to [facility] [...] MCG/0.3 mL, 12 YRS AND ABOVE, IM [facility]) 07/19/2023 Covid-19, Mrna, Lnp-s, Pf, B [...] encounter Miscellaneous Notes * Telephone Encounter - Dea Machado RN - 09/18/2023 3:28 PM EST [facility] Telephonic Nurse Follow-Up Call [facility] Subprogram: Primary Care at Home Follow Up Call Type: Routine follow up call / Status Check Acute issue requiring follow-up call: Other: hospital follow up Objective: 09/08/2023 9:17 AM 08/29/2023 3:28 PM 08/28/2023 10:55 AM 07/25/2023 3:44 PM 07/23/2023 12:16 PM VITALS ACROSS ENCOUNTERS BP 134/58 178/78 122/60 154/64 Pulse 80 70 70 76 Weight 91.8 kg 91.1 kg 90.3 kg BMI 28.23 BMI 28.22 kg/m2 28.01 kg/m2 27.75 kg/m2 Lab Results Component Value Date PROTEIN - [facility] 8.1 09/13/2023 WBC AUTO - [facility] 4.21 09/13/2023 Lab Results Component Value Date WBC AUTO - [facility] 4.21 09/13/2023 HGB - [facility] 5.9 (LL) 09/13/2023 PLATELET AUTO - [facility] 203 09/13/2023 Lab Results Component Value Date SODIUM - [facility] 142 09/13/2023 POTASSIUM - [facility] 4.5 09/13/2023 MAGNESIUM - [facility] 2.2 07/25/2023 CO2 - [facility] 26 09/13/2023 CREATININE - [facility] 1.6 (H) 09/13/2023 ESTIMATED GLOMERULAR FILTRATION RATE - [facility] 41 (L) 09/13/2023 ALBUMIN - [facility] 3.0 (L) 09/13/2023 AST - [facility] 12 09/13/2023 ALT - [facility] 6 (L) 09/13/2023 ALKALINE PHOSPHATASE - [facility] 31 (L) 09/13/2023 No results found for: "PRO BNP", "LEFT VENTRICULAR EJECTION FRACTION" Remote Patient Monitoring: NONE Oxygen Needs: NO supplemental oxygen needs identified DME Needs: NO DME needs identified Medications: No medication or dose adjustments made during acute episode Subjective: Condition Status: Improvement in symptoms but not at baseline Current Concerns: Spoke to who reports patient seems to be doing "fine". states patient was admitted to [facility] from 09/13-09/15, Hgb 5.9. reports patient received 3 transfusions while in hospital. She reports patient SOB with exertion at baseline. Patient wears oxygen 2L at night. -dizziness, -lightheadedness, - bleeding. She reports skin color is pale but improved since last week. Patient has repeat labs scheduled on 09/20. She reports patient is eating and drinking well, she states she knows when blood count is low because patient has poor appetite. She reports patient takes iron 4x/ week per hem/onc, wants to further discuss medications at provider on . Next [facility] provider visit 09/21. Advised to call [facility] back with any new or worsening symptoms Disposition: Follow up call scheduled for tomorrow with AIR BRAKE ADJUSTER Meatman Future Visits Scheduled: Future Appointments-next 60 days Date/Time Provider Specialty Dept Phone 09/20/2023 9:10 AM [facility], [facility] Mobile Home Draw Laboratory Processing [phone] 09/21/2023 11:00 AM Brennen Kay PA-C [facility] [phone] 09/29/2023 10:00 AM Lila Brownlee RN [facility] [phone] 10/04/2023 9:10 AM [facility] Mobile Home Draw Laboratory Processing [phone] 10/05/2023 10:20 AM (Arrive by 10:05 AM) Kasi Tejeda PA-C Otolaryngology [phone] 10/18/2023 9:10 AM [facility] Mobile Home Draw Laboratory Processing [phone] 10/19/2023 11:20 AM (Arrive by 11:05 AM) Zenobia Lyon MD Family Medicine [phone] 11/01/2023 9:10 AM [facility] Mobile Home Draw Laboratory Processing [phone] 11/15/2023 9:10 AM [facility] Mobile [facility] Draw Laboratory Processing [phone] 11/29/2023 9:10 AM [facility] Mobile Home Draw Laboratory Processing [phone] 12/13/2023 9:10 AM [facility] Mobile Home Draw Laboratory Processing [phone] 01/26/2024 11:20 AM (Arrive by 11:05 AM) Zenobia Lyon MD Family Medicine [phone] 03/07/2024 1:00 PM (Arrive by 12:45 PM) Chris Choudhury PA-C Cardiology [phone] Dea Machado RN documented in this encounter Plan of Treatment Upcoming Encounters Date Type Department Care Team (Late st Contact Info) Description 09/19/2023 12:30 PM EST Scheduled Telephone [facility], [facility] [address] [facility] [place] [address] Coordinator, [facility] [address] [facility] [place] [address] 09/20/2023 9:10 AM EST Laboratory Lab Mobile Phlebotomy [facility] [address] [facility] [place] [address] [facility], [facility] Mobile Home Draw [address] [place] [address] 09/21/2023 11:00 AM EST Home Visit [facility] [place], [facility] [address] [facility] [place] [address] Brennen Kay PA-C 132 [place] [address] 09/29/2023 10:00 AM EST Home Visit [facility], [facility] [address] [place] [address] Lila Brownlee RN [address] [place] [address] 10/04/2023 9:10 AM EST Laboratory Lab Mobile Phlebotomy [facility] [address] [place] [address] [facility] Mobile Home Draw [address] [place] [address] 10/05/2023 10:20 AM EST Office Visit Otolaryngology [facility] [address] [place] [address] Kasi Tejeda PA-C [address] [place] [address] 10/18/2023 9:10 AM EST Laboratory Lab Mobile Phlebotomy [facility] [address] [place] [address] [facility], [facility] Mobile Home Draw [address] [place] [address] 10/19/2023 11:20 AM EST Office Visit Family [address] [place] [phone] Zenobia Lyon MD [address] [place] [address] [place] [address] 11/01/2023 9:10 AM EST Laboratory Lab Mobile Phlebotomy [facility] [address] [place] [address] [facility] Mobile Home Draw [address] [place] [address] 11/15/2023 9:10 AM EST Laboratory Lab Mobile Phlebotomy [facility] [address] [place] [address] [facility] Mobile Home Draw [address] [place] [address] 11/29/2023 9:10 AM EST Laboratory Lab Mobile Phlebotomy [facility] [address] [place] [address] [facility], [facility] Mobile Home Draw [address] [place] [address] 12/13/2023 9:10 AM EDT Laboratory Lab Mobile Phlebotomy [facility] [address] [place] [address] [facility], [facility] Mobile Home Draw [address] [place] [address] 01/26/2024 11:20 AM EDT Office Visit Family Medicine [address] [place] [phone] Zenobia Lyon MD [address] [place] [address] [place] [address] 03/07/2024 1:00 PM EDT Office Visit Cardiology [address] [place] [address] Chris Choudhury PA-C [address] [place] [address] Scheduled Procedures Name Priority Associated Diagnoses Date/Ti [...] Additional history exists CKD PHOS USE SMARTSET 25243 07/25/202407/03, 09/07/2022, 09/05/2022, Additional history exists O2 ASSESSMENT COMPLETED IN PAST YEAR FOR COPD 08/28/2024 08/28/2023 CKD HGB USE SMARTSET 04813 09/13/202409/13, 09/13/2023, 09/06/2023, Additional history exists COLONOSCOPY-EVERY [...] this encounter Medical Devices Implanted Type Area Communications Representative Device Identifier Shelf Expiration Date Model / Serial / Lot Screw T2 Alpha Lock 5x47.5mm - [id number] Implanted:Qty: 1 on 09/06/2022 by Sean Silva MD at [facility] Left: Leg Upper RICHELLE : TRAUMA 06/01/2032 [id number] / / [id number] documented as of this encounter Advance Directives Documents on File Type Date Recorded 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
--- OUTSIDE RECORDS SUMMARY | 2023-09-23 16:36 | External Medical Summary | Summary of Care ---
Author Name Unknown Organization [facility] Address [address] [facility] [address] Phone [phone] Care Team Providers Care Detective Chief Name Role Phone Zenobia Lyon MD Primary Care Provide r Reason for Visit * Reason Onset Date Comments [facility]: Maintenance 09/19/2023 Encounter Details Date Type Department Care Team (Late st Contact Info) Description 09/19/2023 12:30 PM EST Scheduled Telephone [facility], [facility] [address] [place] [address] Coordinator, [facility] [address] [place] [address] Allergies Active Allergy Reactions Criticality Noted Date Comments James Inhibitors 09/10/2002 cough on prinivil Hydrocodone 09/05/2022 Family states AMS change when taken Prednisone 05/26/2011 Blisters in throat Sulfa Antibiotics 03/19/2001 dysurea documented as of this encounter (statuses as of 09/19/2023) Medications Medication Sig Dispensed Refills Start Date [...] 75 MG Oral Tablet (pLAVix)Indications: Atherosclerosis of [place] coronary artery of [place] heart without angina pectoris Take 1 Tablet [...] as of this encounter (statuses as of 09/19/2023) Active Problems Patient Care Coordination No te [...] as of this encounter (statuses as of 09/19/2023) Resolved Problems Problem Noted Date Diagnosed Date [...] without hematuria 05/30/2022 01/24/2023 Overview: Xavier to [facility] 04/20-04/29 [...] as of this encounter (statuses as of 09/19/2023) Immunizations Name Administration Dates Next Due COVID-19 mRNA, LNP-s, No Pre serve, 2-Dose Series (Moderna) 08/24/2021,12/07/2020,11/09/2020 COVID-19, MRNA-LNP, 23-24, P F, 30 MCG/0.3 mL, 12 YRS AND ABOVE, IM ([facility] 07/19/2023 Covid-19, Mrna, Lnp-s, Pf, B [...] Telephone Encounter - Dea Machado RN - 09/19/2023 10:21 AM EST [facility] Telephonic Nurse Follow-Up Call [facility] Subprogram: Primary Care at Home Follow Up Call Type: Routine follow up call / Status Check Acute issue requiring follow-up call: Other: hospital follow up-anemia Objective: 09/08/2023 9:17 AM 08/29/2023 3:28 PM [...] and back to baseline Current Concerns: Spoke to who reports patient is doing "fine". He is still sleeping because he stayed up late to watch the football game. Denies any acute issues or concerns. Advised to call [facility] back with any new or worsening symptoms, verbalized understanding. Patient has mobile phlebotomy scheduled tomorrow [facility] provider visit on 09/21. Disposition: Issue resolved. All appropriate follow up scheduled. Future Visits Scheduled: Future Appointments-next 60 days Date/Time Provider Specialty Dept Phone 09/19/2023 12:30 PM Coordinator, [facility] [phone] 09/20/2023 9:10 AM [facility] Mobile Home Draw Laboratory Processing [phone] 09/21/2023 11:00 AM Brennen Kay PA-C [facility] [phone] 09/29/2023 10:00 AM Lila Brownlee RN [facility] [phone] 10/04/2023 9:10 AM [facility] [place] Mobile Home Draw Laboratory Processing [phone] 10/05/2023 10:20 AM (Arrive by 10:05 AM) Kasi Tejeda PA-C Otolaryngology [phone] 10/18/2023 9:10 AM [facility] Mobile Home Draw Laboratory Processing [phone] 10/19/2023 11:20 AM (Arrive by 11:05 AM) Zenobia Lyon MD Family Medicine [phone] 11/01/2023 9:10 AM [facility] Mobile Home Draw Laboratory Processing [phone] 11/15/2023 9:10 AM [facility] Mobile Home Draw Laboratory Processing [phone] 11/29/2023 9:10 AM [facility] Mobile Home Draw Laboratory Processing [phone] 12/13/2023 9:10 AM [facility] Mobile Home Draw Laboratory Processing [phone] 01/26/2024 11:20 AM (Arrive by 11:05 AM) Zenobia Lyon MD Family Medicine [phone] 03/07/2024 1:00 PM (Arrive by 12:45 PM) Chris Choudhury PA-C Cardiology [phone] Dea Machado RN documented in this encounter Plan of Treatment Upcoming Encounters Date Type Department Care Team (Late st Contact Info) Description 09/20/2023 9:10 AM EST Laboratory Lab Mobile Phlebotomy [facility] [address] [place] [address] [facility] Mobile Home Draw [address] [place] [address] 09/21/2023 11:00 AM EST [facility] Visit [facility] [place], [facility] [address] [address] Brennen Kay PA-C [address] [place] [address] 09/29/2023 10:00 AM EST Home Visit [facility] [place], [facility] [address] [address] Lila Brownlee, RN [address] [place] [address] 10/04/2023 9:10 AM EST Laboratory Lab [facility] [place] [address] [place] [address] [facility] Mobile Home Draw [address] [place] [address] 10/05/2023 10:20 AM EST Office Visit Otolaryngology [facility] [address] [facility] [place] [address] Kasi Tejeda PA-C [address] [place] [address] 10/18/2023 9:10 AM EST Laboratory Lab Mobile [facility] [address] [place] [address] [facility] [place] Mobile Home Draw [address] [place] [address] 10/19/2023 11:20 AM EST Office Visit Family [address] [phone] Zenobia Lyon MD [address] [place] [address] [place] [address] 11/01/2023 9:10 AM EST Laboratory Lab Mobile [facility]bot[facility] [address] [place] [address] [facility] [place] Mobile Home Draw [address] [place] [address] 11/15/2023 9:10 AM EST Laboratory Lab Mobile [facility]bot[facility] [address] [place] [address] [facility] [place] Home Draw [address], [place] [address] 11/29/2023 9:10 AM EST Laboratory Lab Mobile Phlebotomy [facility] [address] [place] [address] [facility] [place] Mobile Home Draw [address] [place] [address] 12/13/2023 9:10 AM EDT Laboratory Lab Mobile Phlebotomy [facility] [address] [place] [address] [facility] [place] Mobile Home Draw [address] [place] [address] 01/26/2024 11:20 AM EDT Office Visit Family Medicine [address] [place] [address] Zenobia Lyon MD [address] [place] [address] [place] [address] 03/07/2024 1:00 PM EDT Office Visit Cardiology [address] [place] [address] Chris Choudhury PA-C [address] [place] [address] Scheduled Procedures Name Priority Associated Diagnoses Date/Ti [...] Additional history exists CKD PHOS USE SMARTSET 41563 07/25/202407/03, 09/07/2022, 09/05/2022, Additional history exists O2 ASSESSMENT COMPLETED IN PAST YEAR FOR COPD 08/28/2024 08/28/2023 CKD HGB USE SMARTSET 88833 09/13/202409/13, 09/13/2023, 09/06/2023, Additional history exists COLONOSCOPY-EVERY [...] this encounter Medical Devices Implanted Type Area It Consulting Director Device Identifier Shelf Expiration Date Model / Serial / Lot Screw T2 Alpha Lock 5x47.5mm - [id number] Implanted:Qty: 1 on 09/06/2022 by Sean Silva MD at [place] [facility] Left: Leg Upper RICHELLE : TRAUMA 06/01/2032 [id number] / / [id number] documented as of this encounter Advance Directives Documents on File Type Date Recorded 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
--- OUTSIDE RECORDS SUMMARY | 2023-09-23 16:36 | External Medical Summary | Summary of Care ---
Author Name Unknown Organization [facility] Address [address] [place] [address] Phone [phone] Care Team Providers Care Stone Cutter Name Role Phone Zenobia Lyon MD Primary Care Provide r Reason for Visit * Reason Onset Date Comments Test Results Lab 09/13/2023 Encounter Details Date Type Department Care Team (Late st Contact Info) Description 09/13/2023 Telephone Hematology/Oncology Treatment, [place] [address] [place] [address] Pietro Sykes MD [address] [place] [address] Test Results Lab Allergies Active Allergy Reactions Criticality Noted Date Comments James Inhibitors 09/10/2002 cough on prinivil Hydrocodone 09/05/2022 Family states AMS change when taken Prednisone 05/26/2011 Blisters in throat Sulfa Antibiotics 03/19/2001 dysurea documented as of this encounter (statuses as of 09/13/2023) Medications Medication Sig Dispensed Refills Start Date [...] 75 MG Oral Tablet (pLAVix)Indications: Atherosclerosis of [place] coronary artery of [place] heart without angina pectoris Take 1 Tablet [...] as of this encounter (statuses as of 09/13/2023) Active Problems Patient Care Coordination No te [...] CORONARY ATHEROSCLEROSIS OF UNSPECIFIED TYPE OF VESSEL, [place] OR GRAFT Last Assessment & Plan: Stable. 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 leg ; Rt. mormonism 07/0207/18/2002 07/15/2015 Dyslipidemia, goal to be determined [...] as of this encounter (statuses as of 09/13/2023) Immunizations Name Administration Dates Next Due COVID-19 mRNA, LNP-s, No Pre serve, 2-Dose Series (Moderna) 08/24/2021,12/07/2020,11/09/2020 COVID-19, MRNA-LNP, 23-24, P F, 30 MCG/0.3 mL, 12 YRS AND ABOVE, IM ([facility]) 07/19/2023 Covid-19, Mrna, Lnp-s, Pf, [...] Telephone Encounter - Tiny Chase RN - 09/13/2023 3:13 PM EST Hgb 5.9. Per Dr Sykes, if patient stable can arrange for 2 units PRBC tomorrow. Called patients - patient is weak and fatigued and more short of breath, but they feel he will be ok to wait until tomorrow for transfusion. Called [facility] blood bank ([place]). They can have blood available. Called [facility] ([place]). Patient scheduled for tomorrow at 9am. In other encounter, patients called back and they do not feel he can wait until tomorrow. She is calling EMS to come and get him and bring him to ER. Transfusion appt/ consent cancelled. documented in this encounter Plan of Treatment Upcoming Encounters Date Type Department Care Team (Late st Contact Info) Description 09/20/2023 9:10 AM EST Laboratory Lab Mobile Phlebotomy [facility] [address] [place] [address] [facility] Mobile Home Draw [address] [place] [address] 09/21/2023 11:00 AM EST [facility] Visit [facility] [place], [facility] [address] [facility] [address] Brennen Kay PA-C [address] [place] [address] 09/29/2023 10:00 AM EST [facility] Visit [facility] 132 [facility] [place] [address] Lila Brownlee RN 132 [place] [address] 10/04/2023 9:10 AM EST Laboratory Lab Mobile Phlebotomy [facility] [address] [place] [address] [facility] Mobile Home Draw [address] [place] [address] 10/05/2023 10:20 AM EST Office Visit Otol[facility]ology [facility] 132 [facility] [place] [address] Kasi Tejeda PA-C 132 [place] [address] 10/18/2023 9:10 AM EST Laboratory Lab Mobile Phlebotomy [facility] [address] [place] [address] [facility] Mobile Home Draw [address] [place] [address] 10/19/2023 11:20 AM EST Office Visit Family Medicine [address] [place] [address] Zenobia Lyon MD [address] [place] [address] [place] [address] 11/01/2023 9:10 AM EST Laboratory Lab Mobile Phlebotomy [facility] [address] [place] [address] [facility] Mobile Home Draw [address] [place] [address] 11/15/2023 9:10 AM EST Laboratory Lab Mobile Phlebotomy [facility] [address] [place] [address] [facility] Mobile Home Draw [address] [place] [address] 11/29/2023 9:10 AM EST Laboratory Lab Mobile Phlebotomy [facility] [address] [place] [address] [facility] Mobile Home Draw [address] [place] [address] 12/13/2023 9:10 AM EDT Laboratory Lab Mobile Phlebotomy [facility] [address] [place] [address] [facility] Mobile Home Draw [address] [place] [address] 01/26/2024 11:20 AM EDT Office Visit Family Medicine [address] [place] [phone] Zenobia Lyon MD [address] [place] [address] [place] [address] 03/07/2024 1:00 PM EDT Office Visit Cardiology [address] [place] [address] Chris Choudhury PA-C [address] [place] [address] Scheduled Procedures Name Priority Associated Diagnoses Date/Ti [...] Additional history exists CKD PHOS USE SMARTSET 49422 07/25/202407/03, 09/07/2022, 09/05/2022, Additional history exists O2 ASSESSMENT COMPLETED IN PAST YEAR FOR COPD 08/28/2024 08/28/2023 CKD HGB USE SMARTSET 94727 09/13/202409/13, 09/13/2023, 09/06/2023, Additional history exists COLONOSCOPY-EVERY [...] this encounter Medical Devices Implanted Type Area Piano Sounding Board Matcher Device Identifier Shelf Expiration Date Model / Serial / Lot Screw T2 Alpha Lock 5x47.5mm - [id number] Implanted:Qty: 1 on 09/06/2022 by Sean Silva MD at OR [facility] Left: Leg Upper RICHELLE : TRAUMA 06/01/2032 [id number] / / [id number] documented as of this encounter Advance Directives Documents on File Type Date Recorded Patient Machine I Trimmer Expl anation POLST 10/17/2022 [place] DERS [...] Agen t (per Health Care Power of Crotch Breaker document) Reji Tello Vannats Adult Child First Alterna te Health Care Agent (per Health Care Power of Crotch Breaker document) Bowen Tello Adult Child First Alternate Health Care Agent (per Health Care Power of Crotch Breaker document) Care Teams Stone Cutter Relationship Specialty Start Date End Date Zenobia Lyon MD [address] [place] [address] [place] [phone] PCP - General Family Medicine 05/22/23 documented as of this encounter
--- OUTSIDE RECORDS SUMMARY | 2023-09-23 16:36 | External Medical Summary | Summary of Care ---
Author Name Unknown Organization [facility] Address [address] [place] [address] Phone [phone] Care Team Providers Care Die Cleaner Name Role Phone Zenobia Lyon MD Primary Care Provide r Reason for Visit * Reason Onset Date Comments Advice 09/13/2023 vira Encounter Details Date Type Department Care Team (Late st Contact Info) Description 09/13/2023 Telephone Hematology/Oncology [facility] [place] [address] [place] [address] Pietro Sykes MD 200 [facility] [place] [facility] [place] [address] Advice (vira) Allergies Active Allergy Reactions Criticality Noted Date [...] 75 MG Oral Tablet (pLAVix)Indications: Atherosclerosis of [place] coronary artery of [place] heart without angina pectoris Take 1 Tablet [...] ATHEROSCLEROSIS OF UNSPECIFIED TYPE OF VESSEL, [place] GRAFT Last Assessment & Plan: Stable. [...] hematuria 05/30/2022 01/24/2023 Overview: Xavier to [facility] 04/20-04/29 urosepsis multi drug resistant E. Coli [...] MCG/0.3 mL, 12 YRS AND ABOVE, IM ([employer]) 07/19/2023 Covid-19, Mrna, Lnp-s, Pf, B ivalent, [...] encounter Miscellaneous Notes * Telephone Encounter - Evette Meeks OSA - 09/13/2023 3:30 PM EST Pts tereza called in stating that she had spoken with the office earlier regarding [facility]. She states she does not feel he can wait until tomorrow and she ishaving an ambulance come get him to do it tonight. She states if there are any questions to please call her at [phone] documented in this encounter Plan of Treatment Upcoming Encounters Date Type Department Care Team (Late st Contact Info) Description 09/20/2023 9:10 AM EST Laboratory Lab Mobile Phlebotomy [facility] [address] [place] [address] [facility] [place] Mobile Home Draw [address] [place] [address] 09/21/2023 11:00 AM EST [facility] Visit [facility] [place], [address] [address] Brennen Kay PA-C [address] [place] [address] 09/29/2023 10:00 AM EST Home Visit [facility] [address] [place] [address] Lila Brownlee, SANKET [address] [facility] [place] [address] 10/04/2023 9:10 AM EST Laboratory Lab Mobile Phlebotomy [facility] [address] [place], [place] [address] [facility], [facility] Mobile Home Draw [address] [place] [address] 10/05/2023 10:20 AM EST Office Visit [facility]ol[facility] [place] [address] [facility] [place] [address] Kasi Tejeda PA-C [address] [place] [address] 10/18/2023 9:10 AM EST Laboratory Lab Mobile Phlebotomy [facility] [address] [place], [place] [address] [facility], [facility] Mobile Home Draw [address] [place] [address] 10/19/2023 11:20 AM EST Office Visit Family [address] [place] [phone] Zenobia Lyon MD [address] [place] [address] [place] [address] 11/01/2023 9:10 AM EST Laboratory Lab Mobile Phlebotomy [facility] [address] [place], [place] [address] [facility], [facility] Mobile Home Draw [address] [place] [address] 11/15/2023 9:10 AM EST Laboratory Lab Mobile Phlebotomy [facility] [address] [place] [address] [facility] Mobile Home Draw [address] [place] [address] 11/29/2023 9:10 AM EST Laboratory Lab Mobile Phlebotomy [facility] [address] [place] [address] [facility] Mobile Home Draw [address] [place] [address] 12/13/2023 9:10 AM EDT Laboratory Lab Mobile Phlebotomy [facility] [address] [place] [address] [facility] Mobile Home Draw [address] [place] [address] 01/26/2024 11:20 AM EDT Office Visit Family Medicine [address] [place] [phone] Zenobia Lyon MD [address] [place] [address] [place] [address] 03/07/2024 1:00 PM EDT Office Visit Cardiology [address] [place] [address] Chris Choudhury PA-C [address] [place] [address] Scheduled Procedures Name Priority Associated Diagnoses Date/Ti [...] Additional history exists CKD PHOS USE SMARTSET 80220 07/25/202407/03, 09/07/2022, 09/05/2022, Additional history exists O2 ASSESSMENT COMPLETED IN PAST YEAR FOR COPD 08/28/2024 08/28/2023 CKD HGB USE SMARTSET 66200 09/13/202409/13, 09/13/2023, 09/06/2023, Additional history exists COLONOSCOPY-EVERY [...] this encounter Medical Devices Implanted Type Area Laundry Presser Device Identifier Shelf Expiration Date Model / Serial / Lot Screw T2 Alpha Lock 5x47.5mm - [id number] Implanted:Qty: 1 on 09/06/2022 by Sean Silva MD at [facility] Left: Leg Upper RICHELLE : TRAUMA 06/01/2032 [id number] / / [id number] documented as of this encounter Advance Directives Documents on File Type Date Recorded 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
--- OUTSIDE RECORDS SUMMARY | 2023-09-23 16:36 | External Medical Summary ---
Author Name Unknown Address Unknown Organization [id number]:LABORATORY [facility] - [address] [place] [address] Laboratory Report Ordering Provider Test Date Status DEB BULL 09/20/2023 09:27:00 Final Observation Date Value Abnormality Reference (Units ) Status Ferritin 09/20/2023 09:27:00 48 30-400 (ng /mL) Final Performing Location LAB[facility]ATORY [facility] - [address] [place] [address]
--- OUTSIDE RECORDS SUMMARY | 2023-09-23 16:36 | External Medical Summary ---
Author Name Unknown Address Unknown Organization [id number][facility] [address] [place] [address] Laboratory Report Ordering Provider Test Date Status DEB BULL 09/20/2023 09:27:00 Final Observation Date Value Abnormality Reference (Units ) Status WBC, Total 09/20/2023 09:27:00 3.60 Below low normal 4. 00-10.80 (K/uL) Final RBC 09/20/2023 09:27:00 2.57 4.50-5.25 (M/uL) Final Hemoglobin 09/20/2023 09:27:00 8.2 Below low normal 14 .0-16.8 (g/dL) Final HCT 09/20/2023 09:27:00 27.1 Below low normal 40. 0-48.4 (%) Final MCV 09/20/2023 09:27:00 105.4 82.0-99.5 (fL) Final MCH 09/20/2023 09:27:00 31.9 27.0-34.0 (pg) Final MCHC 09/20/2023 09:27:00 30.3 32.0-36.0 (g/dL) Final RDW 09/20/2023 09:27:00 19.5 11.5-15.5 (%) Final Platelets 09/20/2023 09:27:00 184 140-400 (K /uL) Final MPV 09/20/2023 09:27:00 9.5 6.6-11.1 ( fL) Final Performing Location LABORATORY [facility] [place] [address] - [address] [place] [address]
[2023-09-23] MEDS ORDERED: SILVER NITR/POTASSIUM NITRATE APPLICATOR ONE ×2 (17:15→17:21)
[2023-09-23 17:24] LABS: Basophils # (auto) 0.03 K/uL (0.00-0.20); Basophils % (auto) 0.7 %; Eosinophils # (auto) 0.54 K/uL (0.00-0.50); Eosinophils % (auto) 13.1 %; Hematocrit (blood only) 23.3 % (42.0-52.0); Hemoglobin 7.1 g/dl (14.0-18.0); Immature Granulocytes # (auto) 0.02 K/uL (0.01-0.20); Immature Granulocytes % (auto) 0.5 %; Lymphocytes # (auto) 0.82 K/uL (1.20-3.40); Mean Corpuscular Hemoglobin 31.8 pg (25.0-34.0); Mean Corpuscular Hgb Conc 30.5 g/dL (32.0-36.0); Mean Corpuscular Volume 104.5 fL (80.0-100.0); Mean Platelet Volume 9.4 fL (9.4-12.4); Monocytes # (auto) 0.52 K/uL (0.11-0.59); Monocytes % (auto) 12.7 %; Neutrophils # (auto) 2.18 K/uL (1.40-6.50); Platelet Count 175 K/uL (130-400); RDW Coefficient of Variation 19.9 % (11.5-14.5); RDW Standard Deviation 75.6 fL (36.4-46.3); Red Blood Count 2.23 M/uL (4.70-6.10); White Blood Count 4.11 K/ul (4.8-10.8)
[2023-09-23 17:43] LABS: Albumin Globulin Ratio 0.5 (0.9-2); Albumin Level 2.7 gm/dl (3.4-5.0); BUN Creatinine Ratio 21.9 (10-20); Bilirubin,Total 0.4 mg/dl (0.2-1.0); Calcium 8.5 mg/dl (8.6-10.3); Creatinine Clr Calc Pharmacy 35.5 ml/min; Est GFR (African American) 45.3 ml/min; Est GFR (Non-African American) 39.1 ml/min; Total Protein 7.7 gm/dl (6.0-8.3)
[2023-09-23 17:44] LABS: Anisocytosis Present; Polychromasia 1+
[2023-09-23] MEDS ORDERED: SILVER NITR/POTASSIUM NITRATE APPLICATOR EXT STA (18:18)
[2023-09-23 19:23] LABS: INR 1.2 (0.9-1.1); Partial Thromboplastin Ratio 0.9; Partial Thromboplastin Time 25 Seconds (21-31); Prothrombin Time 12.8 Seconds (9.0-12.0)
--- NOTE | 2023-09-23 19:38 | History & Physical Report ---
Date of Service September 23, 2023 Assessment & Plan (1) Epistaxis requiring cauterization: (2) Transfusion-dependent anemia: (3) Multiple myeloma: (4) Ischemic cardiomyopathy: (5) Tachy-lorna syndrome: Plan Mr. 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 Given requirement for leukoirratiated blood, will have a unit on stand-by for am as it is suspected patient will likely require unit. #Acute epistaxis s/p cauterization right anterior #Acute on chronic anemia iso Multiple Myeloma Onoging palliative and hemeonce follow up for multiple myeloma, patient not a candidate for treatments due to multiple comorbidities as per [facility]emat[facility] note. Follows for weekly cbc and transfusions Encouraged follow up with Heme/Onc given concerns over transfusion dependence Hgb 7.1, type and screened on admission Ordered 1 UPRBC leukoirradiated with 40mg IV lasix on hold contingent on am CBC Trend CBC, transfuse <7.0 Hold plavix, resume in 24 hours if bleeding stable Monitor on tele 11/03 ongoing concerns for active bleed/sinus tachy #chronic diastolic heart failure (EF 60 to 65%, TTE 2022), patient on the dry side SSS status post PPM, paced rhythm, not on anticoagulation secondary to bleeding risk CAD status post CABG/stent, PVD valvular heart disease (mild /TR, moderate MR) Pulmonary hypertension as per records hypertension, slightly elevated -Resume home medications as prescribed -Hold plavix for 24 hours assuming stable bleed #COPD, lung status at baseline #DM2 on oral medications, well-controlled as of recent hemoglobin A1c of 5.3 last July 2023 #Recurrent UTIs on chronic methenamine suppression Rx #dementia as per records, at baseline Diet DMII/carb consistent DVT SCDs 2/2 bleeding and anemia [facility] and Anticipated Discharge Date Admission Date: Time spent evaluating patient, direct bedside care, chart review, placing orders, interpretation of diagnostic studies, discussion with consultants, p atient, and family members, as well as other required patient management activities is 60 minutes. History of Present Illness Chief Complaint: Epistaxsis Primary Care Provider: Zenobia Lyon MD Mr. 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 Information obtained from , Remedios, and daughter, Reji, at bedside as paticelso minaya is poor historian. Reportedly patient has been stable at home until this afternoon when a nose bleed started and lasted nearly an hour. Patient was unable to stop bleeding with holding pressure, therefore prompting call to EMS. Reports remote history of bleed, but nothing similar in nature to this episode. In ED, VS stable with HR in 80s, SBP in 150s, and saturating well on room air. Hgb 7.1 on arrival, compared to discharge hgb 15 8.2. ED intervened with silver nitrate in right nare and oxymetazoline. Allergies Allergy/AdvReac Type Severity Reaction Status Date / Time Sulfa (Sulfonamide Allergy Severe DYSUREA Verified 09/23/23 18:23 Antibiotics) PER [facility] prednisone Allergy Intermediate BLISTERS Verified 09/23/23 18:23 IN THROAT hydrocodone AdvReac Severe ALTERED Verified 09/23/23 18:23 MENTAL STATUS FELECIA Inhibitors AdvReac Intermediate Cough Verified 09/23/23 18:23 pseudoephedrine AdvReac Intermediate TEMP ELEV Verified 09/23/23 18:23 Home Medications Medication Instructions Recorded Confirmed Type albuterol sulfate 90 mcg/actuation 2 puff inhalation QID PRN 06/07/18 09/23/23 History aerosol inhaler (Proventil HFA) Shortness Of Breath digoxin 125 mcg (0.125 mg) tablet 125 mcg PO 3XWK 06/07/18 09/23/23 History fluticasone 250 mcg-salmeterol 50 1 inh inhalation AMHS 06/07/18 09/23/23 History mcg/dose blistr powdr for inhalation (Advair Diskus) magnesium oxide 400 mg (241.3 mg 400 mg PO PM 06/07/18 09/23/23 History magnesium) tablet potassium chloride 20 mEq 20 meq PO QAM 06/07/18 09/23/23 History tablet,extended release(part/cryst) (Klor-Con M) furosemide 40 mg tablet (Lasix) 40 mg PO QAM 04/25/19 09/23/23 History latanoprost 0.005 % eye drops 1 drp OPB QAM 03/24/20 09/23/23 History pantoprazole 40 mg tablet,delayed 40 mg PO QAM 10/22/21 09/23/23 History release clopidogrel 75 mg tablet 75 mg PO QAM 04/20/22 09/23/23 History ferrous sulfate 325 mg (65 mg 325 mg PO Q OTHER DAY 08/28/22 09/23/23 History iron) tablet (FeroSul) losartan 50 mg tablet 50 mg PO QAM 08/28/22 09/23/23 History metoprolol succinate 50 mg 50 mg PO QAM 08/28/22 09/23/23 History tablet,extended release 24 hr multivitamin 1 tab PO DAILY 08/28/22 09/23/23 History methenamine hippurate 1 gram tablet 1 g PO BID 30 days #60 tabs 11/25/22 09/23/23 Rx glipizide 5 mg tablet, extended 5 mg PO DAILYBB 04/20/23 09/23/23 History release 24 hr acetaminophen 500 mg tablet 500 mg PO BID Pain 08/22/23 09/23/23 History dutasteride 0.5 mg capsule 0.5 mg PO QAM 08/22/23 09/23/23 History ondansetron HCl 4 mg tablet 4 mg PO Q6H PRN Nausea And Vomiting 08/22/23 09/23/23 History ciprofloxacin 0.3 %-dexamethasone 4 drp otic (ear) BID 09/13/23 09/23/23 History 0.1 % ear drops,suspension Past Med/Surg History Medical History (Updated 09/23/23 @ 20:11 by Bryanna Davila MD) CKD stage 3 due to type 2 diabetes mellitus no specialist Type II diabetes mellitus NIDDM Peptic ulcer disease GI bleed Elevated prostate specific antigen (PSA) Multiple myeloma History of pacemaker Shingles Encounter for pre-operative examination Severe sepsis Dementia GI bleed per pt's > had 3 units PRBC's [facility] during admission in Jul 2021 Dementia mild at present Presence of combination internal cardiac defibrillator (ICD) and pacemaker follows w/ Dr. Sanford > [employer] > gets checked electronically > PMH provided by , eduadro when last checked in office. Chronic back pain Osteoarthritis Anemia History of colon polyps GERD (gastroesophageal reflux disease) Hearing deficit [place] Glaucoma Aortic aneurysm unsure of last ultrasound/scan -- no surgical intervention. Moderate aortic root dilatation noted on 2018 echo. No AAA noted on [address] COPD (chronic obstructive pulmonary disease) well controlled rare res inh use On home oxygen therapy 2 LPM QHS BPH (benign prostatic hyperplasia) Aortic valve insufficiency Moderate-severe per 11/2018 echo Ischemic cardiomyopathy EF normalized, most recently 55-60% on 11/2018 echo Dyslipidemia Persistent atrial fibrillation Anticoagulation contraindicated per cardiology > ICD Tachy-lorna syndrome S/p dual chamber pacer with upgrade to pacer/ICD 2014 HTN (hypertension) CAD (coronary artery disease) (08/21/14) S/p CABG July 2000 receiving KAUR graft to LAD, saphenous vein graft sequentially from the obtuse marginal to diagonal. S/p stenting of prox Cx 2013 Surgical History (Updated 09/23/23 @ 00:08 by Noah Wells) History of implantable cardioverter-defibrillator (ICD) placement History of tooth extraction History of esophagogastroduodenoscopy (EGD) History of tonsillectomy History of cataract surgery bilat History of prostate surgery non cancerous History of colonoscopy History of cardiac cath 1999 --> CABG 2014 - 1 stent - [facility] S/P CABG x 3 1999 S/P coronary artery stent placement July 2014 with stenting of the proximal circumflex Family History Grandmother Diabetes Mother Colon cancer Other Melanoma No family history of adverse response to anesthesia Social History Smoking Status: Never smoker Tobacco Type: Cigarettes Second Hand Exposure: No; Do You Dip or Chew Tobacco: No; Hx Alcohol Use: No Hx Substance Use: No Preferred Language: Barbadian Communication Ability: Effective Communication Ability Comment: pokagon despite b/l [place] Mechanical Shovel Operator Required: No Beliefs That Will Affect Care: None marital status: Current Living Situation: Spouse How many Children do You have: 2 Feels Safe at Home: Yes Assistive Devices: Cane and Walker Review of Systems Review of Systems: All systems reviewed & are unremarkable except as noted in Subjective Physical Exam Physical Exam: GENERAL APPEARANCE: AxOx2, no acute distress. follows commands, hard of hearing and seems aloof initially, but need to speak louder for engagement HEENT: NC, AT. MMM. EOMI, clear conjunctiva, dried blood in right nare down chest, no active bleeding on exam NECK: Supple without lymphadenopathy. No stiffness or restricted ROM. HEART: Normal rate and regular rhythm, normal S1/S1, no m/r/g LUNGS: CTAB, moving air well. No crackles or wheezes are heard. ABDOMEN: Soft, nontender, nondistended with good bowel sounds heard. EXTREMITIES: Without cyanosis, clubbing or edema. NEUROLOGICAL: Grossly nonfocal. Alert and oriented, moving all 4 extremities. CN not formally tested but appear grossly intact Skin: Warm and dry without any rash. Results & Data Results & Data Vital Signs (Past 12 Hours) Vital Signs Temp Pulse Pulse Resp BP Pulse Ox O2 Del Method 09/23/23 16:51 88 09/23/23 16:51 86 98 Room Air 09/23/23 16:34 36.6 C 77 20 153/66 H 97 Room Air Laboratory Results Laboratory Results - last 24 hr 09/23/23 09/23/23 09/23/23 17:12 17:20 18:41 WBC 4.11 L RBC 2.23 L Hgb 7.1 L Hct 23.3 L MCV 104.5 H MCH 31.8 MCHC 30.5 L RDW Std Deviation 75.6 H RDW Coeff of Maricarmen 19.9 H Plt Count 175 MPV 9.4 Immature Gran % (Auto) 0.5 Neut % (Auto) 53.0 Lymph % (Auto) 20.0 [place] % (Auto) 12.7 Eos % (Auto) 13.1 Baso % (Auto) 0.7 Neut # (Auto) 2.18 Lymph # (Auto) 0.82 L [place] # (Auto) 0.52 Eos # (Auto) 0.54 H Baso # (Auto) 0.03 Immature Gran # (Auto) 0.02 Polychromasia 1+ Anisocytosis Present PT Cancelled 12.8 H INR Cancelled 1.2 H APTT Cancelled 25 PTT Ratio Cancelled 0.9 Sodium 143 Potassium 4.0 Chloride 105 Carbon Dioxide 25 Anion Gap 13 H BUN 34 H Creatinine 1.55 H Est Cr Clr Drug Dosing 35.5 Est GFR ( Amer) 45.3 Est GFR (Non-Af Amer) 39.1 BUN/Creatinine Ratio 21.9 H Glucose 197 H Calcium 8.5 L Total Bilirubin 0.4 AST 10 L ALT 6 L Alkaline Phosphatase 26 L Total Protein 7.7 Albumin 2.7 L Globulin 5.0 H Albumin/Globulin Ratio 0.5 L Blood Type A Positive Antibody Screen NEGATIVE Medications Administered Discontinued Medications Oxymetazoline HCl (Oxymetazoline 0.05% 30 Ml Btl) Confirm Administered Dose 150 sprays .ROUTE .STK-MED ONE Stop: 09/23/23 16:31 Last Admin: 09/23/23 18:21 Dose: Not Given Documented By: ACC Oxymetazoline HCl (Oxymetazoline 0.05% 30 Ml Btl) 1 sprays NA NOW ONE Stop: 09/23/23 18:19 Last Admin: 09/23/23 18:20 Dose: 1 sprays Documented By: ACC Silver Nitrate/Potassium Nitrate (Silver Nitr/Potassium Nitrate Applicator) Confirm Administered Dose 1 appl .ROUTE .STK-MED ONE Stop: 09/23/23 17:16 Last Admin: 09/23/23 18:21 Dose: Not Given Documented By: ACC Silver Nitrate/Potassium Nitrate (Silver Nitr/Potassium Nitrate Applicator) Confirm Administered Dose 1 appl .ROUTE .STK-MED ONE Stop: 09/23/23 17:22 Last Admin: 09/23/23 18:21 Dose: Not Given Documented By: ACC Silver Nitrate/Potassium Nitrate (Silver Nitr/Potassium Nitrate Applicator) 1 appl EXT NOW STA Stop: 09/23/23 18:19 Last Admin: 09/23/23 18:21 Dose: 1 appl Documented By: ACC Code Status & VTE Plan VTE Prophylaxis Plan VTE Prophylaxis will be ordered: Yes
--- NOTE | 2023-09-23 21:44 | Emergency Department Note ---
Impression & Plan Acute anterior epistaxis, Severe anemia ED Provider Note NAME: MARTA ALLEN Sr AGE: 88 SEX: Male INFORMANT: Patient ED PROVIDER(S): Itz Llamas MD CHIEF COMPLAINT: Nosebleed PLAN: Disposition: Admitted Outpatient prescription management: none Referral: None MEDICAL DECISION MAKING: Patient presented because of acute epistaxis. The description of bleeding at home was concerning given his baseline anemia. He had a visible blood vessel on the anterior right septum. This was cauterized and treated as below under the procedure section. Patient did well with this. No additional bleeding. His blood counts were checked and he had a severe anemia with a hemoglobin of 7.1. He did drop from the eights this week. There is concerned that he is at risk given his low blood counts. He may require transfusion. I discussed further management in the hospital for monitoring, rechecking of his hemoglobin, and further care. Patient and family in agreement. Consultation was [facility]. Patient was evaluated in the ER for further management. Care/management discussed with: none Level of care consideration(s): After review of the information above and other included data, I feel the patient requires escalation of care to admission. Triage Nursing notes: reviewed and agree them. Vital Signs: reviewed and remarkable for mild hypertension Additional History obtained from: Family regarding the amount of bleeding and duration. Chronic Medical/Social Conditions affecting care: Multiple myeloma, anemia Prior/ Outside/ External records reviewed: Prior hospitalization record reviewed from this month. Patient was admitted and transfused. Differential Diagnosis: Anterior epistaxis, coagulopathy, traumatic injury, fracture, septal hematoma, posterior epistaxis, infections, as well as other pathologies. Diagnostics, independently interpreted by me: ECG: none Cardiac Monitoring:Cardiac monitoring ordered by me: The patient was placed on continuous cardiac monitoring and observed. It revealed a normal sinus rhythm at 77 beats per minute without ectopy or evidence of dysrhythmia. Medical decision rules: none Imaging studies: Deferred HPI: 88 year old Male arrives for evaluation of nosebleed. The patient notes bleeding started about 1.5 hours prior to arrival. Family notes he did have a significant amount of bleeding soaking through many paper towels. Patient recently was admitted and transfused due to anemia and multiple myeloma. Family notes his last blood count this week was around 8.2. Patient is on Plavix. Pt denies LOC, headache, fevers, chills, neck pain, chest pain, breathing difficulties, nausea, vomiting, melena, hematochezia, urinary symptoms, rash, or other complaints. PAST MEDICAL HISTORY: See Below, multiple myeloma PAST SURGICAL HISTORY: See Below, SOCIAL HISTORY: See Below, HOME MEDICATIONS: See Below ALLERGIES: See Below VITALS: See Below PHYSICAL EXAMINATION: GENERAL: Awake, alert, well-appearing, in no distress HENT: Normocephalic, atraumatic. Oropharynx unremarkable. Dried blood noted from the right naris. There is a superficial arterial blood vessel in the right anterior septum with stigmata of recent bleeding. EYES: Normal conjunctiva. Sclera non-icteric. NECK: Inspection normal. Non-tender. Supple. No nuchal rigidity. FROM. No masses. RESPIRATORY: Clear to auscultation. No wheezes. No rales. Normal respiratory effort. CARDIAC: Normal rate. Normal rhythm. No murmurs. No rubs. Extremities warm and well perfused. GI: Soft, non-distended. No tenderness to palpation. No rebound or guarding. MUSCULOSKELETAL: Atraumatic. NEURO: Normal sensorium. SKIN: No rash or jaundice noted. PROCEDURES: ANTERIOR NASAL CAUTERY: Verbal consent obtained. Risks include bleeding, infection, vessel injury, scarring, pain, septal perforation, as well as others were explained. The nasal passage was prepped with Afrin. Suctioning was performed. The bleeding source was directly visualized utilizing an otoscope and Haas tip suction. Silver nitrate was applied in standard fashion. Hemostasis achieved. Fibrillar hemostatic agent applied for additional coverage. The patient was observed. No additional bleeding. No complications. Patient was educated and pleased with the treatment. CRITICAL CARE: none OBSERVATION NOTE: none Past Med/Surg History Medical History (Updated 09/23/23 @ 21:44 by Itz Llamas MD) CKD stage 3 due to type 2 diabetes mellitus no specialist Type II diabetes mellitus NIDDM Peptic ulcer disease GI bleed Elevated prostate specific antigen (PSA) Multiple myeloma History of pacemaker Shingles Encounter for pre-operative examination Severe sepsis Dementia GI bleed per pt's > had 3 units PRBC's [facility] during admission in Jul 2021 Dementia mild at present Presence of combination internal cardiac defibrillator (ICD) and pacemaker follows w/ Dr. Sanford > [employer] > gets checked electronically > PMH provided by , eduardo when last checked in office. Chronic back pain Osteoarthritis Anemia History of colon polyps GERD (gastroesophageal reflux disease) Hearing deficit [place] Glaucoma Aortic aneurysm unsure of last ultrasound/scan -- no surgical intervention. Moderate aortic root dilatation noted on 2018 echo. No AAA noted on [address] COPD (chronic obstructive pulmonary disease) well controlled rare res inh use On home oxygen therapy 2 LPM QHS BPH (benign prostatic hyperplasia) Aortic valve insufficiency Moderate-severe per 11/2018 echo Ischemic cardiomyopathy EF normalized, most recently 55-60% on 11/2018 echo Dyslipidemia Persistent atrial fibrillation Anticoagulation contraindicated per cardiology > ICD Tachy-lorna syndrome S/p dual chamber pacer with upgrade to pacer/ICD 2014 HTN (hypertension) CAD (coronary artery disease) (08/21/14) S/p CABG July 2000 receiving KAUR graft to LAD, saphenous vein graft sequentially from the obtuse marginal to diagonal. S/p stenting of prox Cx 2013 Surgical History (Updated 09/23/23 @ 00:08 by Noah Wells) History of implantable cardioverter-defibrillator (ICD) placement History of tooth extraction History of esophagogastroduodenoscopy (EGD) History of tonsillectomy History of cataract surgery bilat History of prostate surgery non cancerous History of colonoscopy History of cardiac cath 1999 --> CABG 2013 - 1 stent - [facility] S/P CABG x 3 1999 S/P coronary artery stent placement July 2014 with stenting of the proximal circumflex Family History Grandmother Diabetes Mother Colon cancer Other Melanoma No family history of adverse response to anesthesia Social History Smoking Status: Never smoker Tobacco Type: Cigarettes Second Hand Exposure: No; Do You Dip or Chew Tobacco: No; Hx Alcohol Use: No Hx Substance Use: No Preferred Language: Greek Communication Ability: Effective Communication Ability Comment: [place] despite b/[place] Hand Buffer Required: No Beliefs That Will Affect Care: None marital status: Current Living Situation: Spouse How many Children do You have: 2 Feels Safe at Home: Yes Assistive Devices: Cane and Walker Allergies Allergies Allergy/AdvReac Type Severity Reaction Status Date / Time Sulfa (Sulfonamide Allergy Severe DYSUREA Verified 09/23/23 18:23 Antibiotics) PER [facility] prednisone Allergy Intermediate BLISTERS Verified 09/23/23 18:23 IN THROAT hydrocodone AdvReac Severe ALTERED Verified 09/23/23 18:23 MENTAL STATUS FELECIA Inhibitors AdvReac Intermediate Cough Verified 09/23/23 18:23 pseudoephedrine AdvReac Intermediate TEMP ELEV Verified 09/23/23 18:23 Home Meds Home Medications Medication Instructions Recorded Confirmed albuterol sulfate 90 mcg/actuation 2 puff inhalation QID PRN 06/07/18 09/23/23 aerosol inhaler (Proventil HFA) Shortness Of Breath digoxin 125 mcg (0.125 mg) tablet 125 mcg PO 3XWK 06/07/18 09/23/23 fluticasone 250 mcg-salmeterol 50 1 inh inhalation AMHS 06/07/18 09/23/23 mcg/dose blistr powdr for inhalation (Advair Diskus) magnesium oxide 400 mg (241.3 mg 400 mg PO PM 06/07/18 09/23/23 magnesium) tablet potassium chloride 20 mEq 20 meq PO QAM 06/07/18 09/23/23 tablet,extended release(part/cryst) (Klor-Con M) furosemide 40 mg tablet (Lasix) 40 mg PO QAM 04/25/19 09/23/23 latanoprost 0.005 % eye drops 1 drp OPB QAM 03/24/20 09/23/23 pantoprazole 40 mg tablet,delayed 40 mg PO QAM 10/22/21 09/23/23 release clopidogrel 75 mg tablet 75 mg PO QAM 04/20/22 09/23/23 ferrous sulfate 325 mg (65 mg 325 mg PO Q OTHER DAY 08/28/22 09/23/23 iron) tablet (FeroSul) losartan 50 mg tablet 50 mg PO QAM 08/28/22 09/23/23 metoprolol succinate 50 mg 50 mg PO QAM 08/28/22 09/23/23 tablet,extended release 24 hr multivitamin 1 tab PO DAILY 08/28/22 09/23/23 glipizide 5 mg tablet, extended 5 mg PO DAILYBB 04/20/23 09/23/23 release 24 hr acetaminophen 500 mg tablet 500 mg PO BID Pain 08/22/23 09/23/23 dutasteride 0.5 mg capsule 0.5 mg PO QAM 08/22/23 09/23/23 ondansetron HCl 4 mg tablet 4 mg PO Q6H PRN Nausea And Vomiting 08/22/23 09/23/23 ciprofloxacin 0.3 %-dexamethasone 4 drp otic (ear) BID 09/13/23 09/23/23 0.1 % ear drops,suspension Previous Rx's Medication Instructions Recorded methenamine hippurate 1 gram tablet 1 g PO BID 30 days #60 tabs 11/25/22 Results & Data (ED) Vital Signs Vital Signs - 24 hr 09/23/23 16:34 09/23/23 16:51 09/23/23 16:51 Temperature 36.6 C Temperature Source Oral Pulse Rate 77 88 Pulse Rate [Apical] 86 Respiratory Rate 20 Respiratory Effort / Characteristics Non-Labored Spontaneous Respiratory Depth Normal Respiratory Pattern Regular Blood Pressure 153/66 H Blood Pressure [Right Arm] Blood Pressure Mean 95 Blood Pressure Mean [Right Arm] Blood Pressure Position Semi-fowlers Pulse Oximetry 97 98 Oxygen Delivery Method Room Air Room Air Sepsis Recent Fever Within 48 Hours No Sepsis New/Unexplained Change in Mental Status N/A Sepsis Action Taken by Nursing No Action Required 09/23/23 20:34 09/23/23 21:00 Temperature Temperature Source Pulse Rate 77 Pulse Rate [Apical] 71 Respiratory Rate 19 Respiratory Effort / Characteristics Respiratory Depth Respiratory Pattern Blood Pressure Blood Pressure [Right Arm] 144/71 H Blood Pressure Mean Blood Pressure Mean [Right Arm] 95 Blood Pressure Position Pulse Oximetry 94 Oxygen Delivery Method Sepsis Recent Fever Within 48 Hours Sepsis New/Unexplained Change in Mental Status Sepsis Action Taken by Nursing Laboratory Data 09/23/23 17:12 09/23/23 17:12 Lab Results 09/23/23 09/23/23 09/23/23 Range/Units 17:12 17:20 18:41 WBC 4.11 L (4.8-10.8) K/ul RBC 2.23 L (4.70-6.10) M/uL Hgb 7.1 L (14.0-18.0) g/dl Hct 23.3 L (42.0-52.0) % MCV 104.5 H (80.0-100.0) fL MCH 31.8 (25.0-34.0) pg MCHC 30.5 L (32.0-36.0) g/dL RDW Std Deviation 75.6 H (36.4-46.3) fL RDW Coeff of Maricarmen 19.9 H (11.5-14.5) % Plt Count 175 (130-400) K/uL MPV 9.4 (9.4-12.4) fL Immature Gran % (Auto) 0.5 % Neut % (Auto) 53.0 % Lymph % (Auto) 20.0 % Sebastian % (Auto) 12.7 % Eos % (Auto) 13.1 % Baso % (Auto) 0.7 % Neut # (Auto) 2.18 (1.40-6.50) K/uL Lymph # (Auto) 0.82 L (1.20-3.40) K/uL Sebastian # (Auto) 0.52 (0.11-0.59) K/uL Eos # (Auto) 0.54 H (0.00-0.50) K/uL Baso # (Auto) 0.03 (0.00-0.20) K/uL Immature Gran # (Auto) 0.02 (0.01-0.20) K/uL Polychromasia 1+ Anisocytosis Present PT Cancelled 12.8 H INR Cancelled 1.2 H APTT Cancelled 25 PTT Ratio Cancelled 0.9 Sodium 143 (136-145) mmol/L Potassium 4.0 (3.5-5.1) mmol/L Chloride 105 (98-107) mmol/L Carbon Dioxide 25 (21-32) mmol/L Anion Gap 13 H (3-11) BUN 34 H (6-23) mg/dl Creatinine 1.55 H (0.6-1.4) mg/dl Est Cr Clr Drug Dosing 35.5 ml/min Est GFR ( Amer) 45.3 ml/min Est GFR (Non-Af Amer) 39.1 ml/min BUN/Creatinine Ratio 21.9 H (10-20) Glucose 197 H (70-99(Fasting)) mg/dl Calcium 8.5 L (8.6-10.3) mg/dl Total Bilirubin 0.4 (0.2-1.0) mg/dl AST 10 L (13-39) U/L ALT 6 L (7-52) U/L Alkaline Phosphatase 26 L (34-104) U/L Total Protein 7.7 (6.0-8.3) gm/dl Albumin 2.7 L (3.4-5.0) gm/dl Globulin 5.0 H (2.5-4.0) gm/dl Albumin/Globulin Ratio 0.5 L (0.9-2) Blood Type A Positive Antibody Screen NEGATIVE Administered Medications Discontinued Medications Oxymetazoline HCl (Oxymetazoline 0.05% 30 Ml Btl) Confirm Administered Dose 150 sprays .ROUTE .STK-MED ONE Stop: 09/23/23 16:31 Last Admin: 09/23/23 18:21 Dose: Not Given Documented By: ACC Oxymetazoline HCl (Oxymetazoline 0.05% 30 Ml Btl) 1 sprays NA NOW ONE Stop: 09/23/23 18:19 Last Admin: 09/23/23 18:20 Dose: 1 sprays Documented By: ACC Silver Nitrate/Potassium Nitrate (Silver Nitr/Potassium Nitrate Applicator) Confirm Administered Dose 1 appl .ROUTE .STK-MED ONE Stop: 09/23/23 17:16 Last Admin: 09/23/23 18:21 Dose: Not Given Documented By: ACC Silver Nitrate/Potassium Nitrate (Silver Nitr/Potassium Nitrate Applicator) Confirm Administered Dose 1 appl .ROUTE .STK-MED ONE Stop: 09/23/23 17:22 Last Admin: 09/23/23 18:21 Dose: Not Given Documented By: ACC Silver Nitrate/Potassium Nitrate (Silver Nitr/Potassium Nitrate Applicator) 1 appl EXT NOW STA Stop: 09/23/23 18:19 Last Admin: 09/23/23 18:21 Dose: 1 appl Documented By: ACC Discharge Plan Visit Data Chief Complaint: Nose Bleed (Major) Stated Complaint: NOSE BLEED ED Provider: Itz Llamas Discharge Problem: Acute anterior epistaxis, Severe anemia Forms Stand Alone Forms: My [facility] Reveal Prescriptions Prescriptions: No Action methenamine hippurate 1 gram tablet 1 g PO BID 30 Days Qty: 60 5RF furosemide [Lasix] 40 mg Tablet 40 mg PO QAM fluticasone propion-salmeterol [Advair Diskus] 250-50 mcg/dose Blister With Device 1 inh INHALATION AMHS potassium chloride [Klor-Con M20] 20 mEq Tablet,Er Particles/Crystals 20 meq PO QAM magnesium oxide 400 mg (241.3 mg magnesium) Tablet 400 mg PO PM digoxin 125 mcg Tablet 125 mcg PO 3XWK Rx Instructions: take 1 tablet mon,wed,mon albuterol sulfate [Proventil HFA] 90 mcg/actuation Hfa Aerosol Inhaler 2 puff INHALATION QID PRN (Reason: Shortness Of Breath) latanoprost 0.005 % Drops 1 drp OPB QAM pantoprazole 40 mg tablet,delayed release (DR/EC) 40 mg PO QAM clopidogrel 75 mg tablet 75 mg PO QAM metoprolol succinate 50 mg tablet extended release 24 hr 50 mg PO QAM losartan 50 mg tablet 50 mg PO QAM ferrous sulfate [FeroSul] 325 mg (65 mg iron) tablet 325 mg PO Q OTHER DAY Rx Instructions: PER [facility] multivitamin Tablet 1 tab PO DAILY glipizide 5 mg Tablet Extended Release 24hr 5 mg PO DAILYBB ondansetron HCl 4 mg tablet 4 mg PO Q6H PRN (Reason: Nausea And Vomiting) acetaminophen 500 mg Tablet 500 mg PO BID dutasteride 0.5 mg capsule 0.5 mg PO QAM ciprofloxacin-dexamethasone 0.3-0.1 % drops,suspension 4 drp otic (ear) BID Rx Instructions: STARTED 09/08/23 FOR 14 DAYS, ENDS 09/22/23. Referrals Referrals: Zenobia Lyon MD [Primary Care Provider] -
[2023-09-24] MEDS ORDERED: POLYETHYLENE (MIRALAX) 17 GM PACK PO PRN (00:02)
[2023-09-24] MEDS ORDERED: DEXTROSE 50% 50 ML SYRINGE IV PRN (00:02)
[2023-09-24] MEDS ORDERED: ONDANSETRON 4 MG OD TAB PO PRN (00:02)
[2023-09-24] MEDS ORDERED: CARBOHYDRATES FOR HYPOGLYCEMIA PO PRN (00:02)
[2023-09-24] MEDS ORDERED: SODIUM CHLORIDE 0.9% 250 ML IV PRN ×2 (00:02→07:42)
[2023-09-24] MEDS ORDERED: GLUCOSE 10 TAB/TUBE PO PRN (00:02)
[2023-09-24] MEDS ORDERED: GLUCOSE 40% GEL 15 GM TUBE PO PRN (00:02)
[2023-09-24] MEDS ORDERED: ACETAMINOPHEN 325 MG TAB PO PRN (00:02)
[2023-09-24] MEDS ORDERED: SODIUM CHLORIDE 0.65% NA SOLN 45 ML (OCEAN) PRN (00:02)
[2023-09-24] MEDS ORDERED: ALBUTEROL HFA 8 GM INHALER INH PRN (00:02)
[2023-09-24] MEDS ORDERED: GLUCAGON FOR INJ 1 MG VIAL SQ PRN (00:02)
[2023-09-24] MEDS: INSULIN ASPART PER UNIT CHARGE SC SCH ×5 (00:17→20:59)
[2023-09-24] MEDS: ACETAMINOPHEN 500 MG TAB PO SCH ×3 (02:06→21:19)
[2023-09-24] MEDS: METHENAMINE HIPPURATE 1 GM TAB PO SCH ×3 (02:08→21:19)
[2023-09-24] MEDS: MAGNESIUM OXIDE 400 MG TAB PO SCH ×2 (02:08→21:20)
[2023-09-24 07:21] LABS: Hematocrit (blood only) 19.5 % (42.0-52.0); Hemoglobin 5.9 g/dl (14.0-18.0); Mean Corpuscular Hemoglobin 31.6 pg (25.0-34.0); Mean Corpuscular Hgb Conc 30.3 g/dL (32.0-36.0); Mean Corpuscular Volume 104.3 fL (80.0-100.0); Mean Platelet Volume 9.6 fL (9.4-12.4); Platelet Count 151 K/uL (130-400); RDW Coefficient of Variation 19.9 % (11.5-14.5); RDW Standard Deviation 75.6 fL (36.4-46.3); Red Blood Count 1.87 M/uL (4.70-6.10); White Blood Count 4.19 K/ul (4.8-10.8)
[2023-09-24 07:36] LABS: BUN Creatinine Ratio 26.9 (10-20); Calcium 8.4 mg/dl (8.6-10.3); Creatinine Clr Calc Pharmacy 37.9 ml/min; Est GFR (African American) 49.1 ml/min; Est GFR (Non-African American) 42.4 ml/min; Magnesium 1.9 mg/dl (1.7-2.4); Phosphorus 3.4 mg/dl (2.5-4.9); Potassium 3.9 mmol/L (3.5-5.1)
[2023-09-24] MEDS: LOSARTAN POTASSIUM 50 MG TAB PO SCH (08:55)
[2023-09-24] MEDS: FUROSEMIDE 40 MG TAB PO SCH (08:55)
[2023-09-24] MEDS: FINASTERIDE 5 MG TAB PO SCH (08:55)
[2023-09-24] MEDS: FLUTICASONE/VILANTEROL 200/25MCG 14 PUFFS/INHALER INH SCH (08:55)
[2023-09-24] MEDS: PANTOprazole 40 MG TAB PO SCH (08:56)
[2023-09-24] MEDS: POTASSIUM CHLORIDE CRTAB 20 MEQ TABCR PO SCH (08:56)
[2023-09-24] MEDS: MULTIVITAMIN TAB PO SCH (08:56)
[2023-09-24] MEDS: LATANOPROST 0.005% OP SOLN 2.5 ML BTL OPB SCH (08:56)
[2023-09-24] MEDS: METOPROLOL SUCC 50MG EXT REL TAB PO SCH (08:56)
[2023-09-24] MEDS: FERROUS SULFATE 325 MG TAB PO SCH (09:01)
--- NOTE | 2023-09-24 13:10 | Hospitalist Progress Note ---
Date of Service September 24, 2023 Assessment & Plan (1) Epistaxis requiring cauterization: (2) Transfusion-dependent anemia: (3) Multiple myeloma: (4) Ischemic cardiomyopathy: (5) Tachy-lorna syndrome: Plan Mr. 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 Given requirement for leukoirratiated blood, will have a unit on stand-by for am as it is suspected patient will likely require unit. #Acute epistaxis s/p cauterization right anterior No more bleeding noted Globin dropped to 5.9 today-not solely due to epistaxis #Acute on chronic anemia iso Multiple Myeloma No signs of bleeding Onoging palliative and heme-oncology follow up for multiple myeloma, patient not a candidate for treatments due to multiple comorbidities as per [facility] [place]. Follows for weekly cbc and transfusions Encouraged follow up with Heme/Onc given concerns over transfusion dependence Hgb 7.1, type and screened on admission Hemoglobin dropped to 5.9 this morning Will have 1 unit of PRBC followed by hemoglobin and hematocrit check and if still below 7 will give second unit Hold plavix, resume in 24 hours if bleeding stable Will monitor CBC #chronic diastolic heart failure (EF 60 to 65%, TTE 2022), patient on the dry side SSS status post PPM, paced rhythm, not on anticoagulation secondary to bleeding risk CAD status post CABG/stent, PVD valvular heart disease (mild /TR, moderate MR) Pulmonary hypertension as per records hypertension, slightly elevated -Resume home medications as prescribed -No signs and or symptoms of fluid overload and the chest x-rays not showing any congestion #COPD, lung status at baseline-denies any wheezing #DM2 on oral medications, well-controlled as of recent hemoglobin A1c of 5.3 last July 2023 #Recurrent UTIs on chronic methenamine suppression Rx #dementia as per records, at baseline Diet DMII/carb consistent DVT SCDs 2/2 bleeding and anemia Clinically better and will continue current management Admission and Anticipated Discharge Date Admission Date: September 23, 2023 Subjective 09/24/2023 The patient was seen and examined in medical telemetry unit He has been very weak and lethargic Denies any shortness of breath at rest, any chest pain and her palpitation, any abdominal pain and nausea or vomit Hemoglobin dropped to 5.9 this morning without any obvious signs of bleeding Review of Systems Review of Systems: All systems reviewed and are unremarkable except as noted below Physical Exam Physical Exam: Lying in bed without any acute distress but looks very pale Constitutional: + ill appearing and average body habitus Eyes: PERRL, conjunctivae normal, anicteric sclerae ENMT: external ear and nose normal, oropharynx normal Neck: trachea midline, no thyromegaly Respiratory: no respiratory distress Auscultation: lungs clear to auscultation bilaterally; no crackles Cardiovascular: Rate/Rhythm: regular rate and regular rhythm; not tachycardic Heart Sounds: normal S1 and normal S2; no murmur Extremities: + edema (No edema) Gastrointestinal (Abdomen): Inspection/Auscultation: normal bowel sounds; abdomen not distended Percussion/Palpation: abdomen soft; abdomen nontender Musculoskeletal: No acute arthritis involving any joint Neurologic: normal touch/pain/proprioception and moves all extremities; no focal motor deficits Lymphatic: no cervical or axillary lymphadenopathy Results & Data Results & Data Vital Signs (Past 12 Hours) Vital Signs Temp Pulse Pulse Resp BP BP BP 09/24/23 12:11 36.3 C L 73 18 150/70 H 09/24/23 11:30 36.4 C L 79 18 135/69 09/24/23 10:30 36.4 C L 70 18 150/74 H 09/24/23 09:30 36.6 C 70 18 151/69 H 09/24/23 09:00 36.6 C 73 18 149/75 H 09/24/23 08:45 36.5 C 70 18 154/66 H 09/24/23 08:31 36.7 C 70 18 153/66 H 09/24/23 07:30 36.9 C 68 18 157/70 H 09/24/23 06:00 78 09/24/23 02:30 36.7 C 69 16 153/69 H Pulse Ox O2 Del Method O2 Flow Rate 09/24/23 12:11 99 09/24/23 11:30 99 09/24/23 10:30 98 09/24/23 09:30 98 09/24/23 09:00 98 09/24/23 08:45 99 09/24/23 08:31 99 09/24/23 07:30 99 Nasal Cannula 2 09/24/23 06:00 09/24/23 02:30 96 Nasal Cannula 2 Laboratory Results Short CBC 09/23/23 09/24/23 Range/Units 17:12 06:26 WBC 4.11 L 4.19 L (4.8-10.8) K/ul Hgb 7.1 L 5.9 L* (14.0-18.0) g/dl Hct 23.3 L 19.5 L* (42.0-52.0) % Plt Count 175 151 (130-400) K/uL BMP 09/23/23 09/24/23 17:12 06:26 Sodium 143 143 Potassium 4.0 3.9 Chloride 105 105 Carbon Dioxide 25 26 BUN 34 H 39 H Creatinine 1.55 H 1.45 H Glucose 197 H 120 H Calcium 8.5 L 8.4 L Liver Function 09/23/23 Range/Units 17:12 Total Bilirubin 0.4 (0.2-1.0) mg/dl AST 10 L (13-39) U/L ALT 6 L (7-52) U/L Alkaline Phosphatase 26 L (34-104) U/L Albumin 2.7 L (3.4-5.0) gm/dl Medications Administered Current Inpatient Medications Acetaminophen (Acetaminophen 325 Mg Tab) 650 mg PO Q4H PRN PRN Reason: Pain or Fever Stop: 10/24/23 00:01 Acetaminophen (Acetaminophen 500 Mg Tab) 500 mg PO BID [facility] Stop: 10/24/23 00:01 Last Admin: 09/24/23 08:54 Dose: 500 mg Albuterol (Albuterol Hfa 8 Gm Inhaler) 2 puffs INH QID PRN PRN Reason: Shortness Of Breath Stop: 10/24/23 00:01 Dextrose (Dextrose 50% 50 Ml Syringe) 25 - 50 ml IV UD PRN; Protocol PRN Reason: Hypoglycemia Protocol Stop: 10/24/23 00:01 Digoxin (Digoxin 0.125 Mg Tab) 0.125 mg PO [id number] [facility] Stop: 10/25/23 15:59 Ferrous Sulfate (Ferrous Sulfate 325 Mg Tab) 325 mg PO Q48H [facility] Stop: 10/24/23 08:59 Last Admin: 09/24/23 09:01 Dose: 325 mg Finasteride (Finasteride 5 Mg Tab) 5 mg PO QAM [facility] Stop: 10/24/23 08:59 Last Admin: 09/24/23 08:55 Dose: 5 mg Fluticasone/Vilanterol (Fluticasone/Vilanterol 200/25mcg 14 Puffs/Inhaler) 1 puffs INH DAILY ALIN Stop: 10/24/23 08:59 Last Admin: 09/24/23 08:55 Dose: 1 puffs Furosemide (Furosemide 40 Mg Tab) 40 mg PO QAM [facility] Stop: 10/24/23 08:59 Last Admin: 09/24/23 08:55 Dose: 40 mg Glucagon (Glucagon For Inj 1 Mg Vial) 1 mg SQ UD PRN; Protocol PRN Reason: Hypoglycemia Protocol Stop: 10/24/23 00:01 Glucose (Glucose 10 Tab/Tube) 4 - 8 tab PO UD PRN; Protocol PRN Reason: Hypoglycemia Treatment Stop: 10/24/23 00:01 Glucose (Glucose 40% Gel 15 Gm Tube) 15 - 30 gm PO UD PRN; Protocol PRN Reason: Hypoglycemia Protocol Stop: 10/24/23 00:01 Sodium Chloride (Nss) 250 mls @ 15 mls/hr IV .[id number] PRN PRN Reason: For Transfusion Duration Stop: 09/24/23 17:42 Insulin Aspart (Insulin Aspart Per Unit Charge) 0 units SC ACHS [facility] Stop: 10/24/23 00:01 Last Admin: 09/24/23 08:53 Dose: Not Given Latanoprost (Latanoprost 0.005% Op Soln 2.5 Ml Btl) 1 drops OPB QAM [facility] Stop: 10/24/23 08:59 Last Admin: 09/24/23 08:56 Dose: 1 drops Losartan Potassium (Losartan Potassium 50 Mg Tab) 50 mg PO QAM [facility] Stop: 10/24/23 08:59 Last Admin: 09/24/23 08:55 Dose: 50 mg Magnesium Oxide (Magnesium Oxide 400 Mg Tab) 400 mg PO PM [facility] Stop: 10/24/23 00:01 Last Admin: 09/24/23 02:08 Dose: 400 mg Methenamine Hippurate (Methenamine Hippurate 1 Gm Tab) 1 gm PO BID [facility] Stop: 10/24/23 00:01 Last Admin: 09/24/23 08:57 Dose: 1 gm Metoprolol Succinate (Metoprolol Succ 50mg Ext Rel Tab) 50 mg PO QAM [facility] Stop: 10/24/23 08:59 Last Admin: 09/24/23 08:56 Dose: 50 mg Miscellaneous (Carbohydrates For Hypoglycemia ) 15 - 30 gm PO UD PRN PRN Reason: Hypoglycemia Protocol Stop: 10/24/23 00:01 Multivitamins (Multivitamin Tab) 1 tab PO DAILY [facility] Stop: 10/24/23 08:59 Last Admin: 09/24/23 08:56 Dose: 1 tab Ondansetron HCl (Ondansetron 4 Mg Od Tab) 4 mg PO Q6H PRN PRN Reason: Nausea And Vomiting Stop: 10/24/23 00:01 Pantoprazole Sodium (Pantoprazole 40 Mg Tab) [facility] [place] Stop: 10/24/23 08:59 Last Admin: 09/24/23 08:56 Dose: 40 mg Polyethylene Glycol (Polyethylene (Miralax) 17 Gm Pack) 17 gm PO DAILY PRN PRN Reason: Constipation Stop: 10/24/23 00:01 Potassium Chloride (Potassium Chloride Crtab 20 Meq Tabcr) 20 meq [facility] [place] [place] Stop: 10/24/23 08:59 Last Admin: 09/24/23 08:56 Dose: 20 meq Sodium Chloride (Sodium Chloride 0.65% Na Soln 45 Ml ([place])) 2 sprays NA Q1H PRN PRN Reason: Dryness Stop: 10/24/23 00:01
[2023-09-24 14:50] LABS: Hematocrit (blood only) 22.5 % (42.0-52.0); Hemoglobin 7.3 g/dl (14.0-18.0)
[2023-09-25 06:02] LABS: BUN Creatinine Ratio 21.7 (10-20); Calcium 8.6 mg/dl (8.6-10.3); Creatinine Clr Calc Pharmacy 29.1 ml/min; Est GFR (African American) 35.7 ml/min; Est GFR (Non-African American) 30.8 ml/min; Phosphorus 4.2 mg/dl (2.5-4.9)
[2023-09-25 06:21] LABS: Hemoglobin 6.9 g/dl (14.0-18.0); Mean Corpuscular Hemoglobin 31.8 pg (25.0-34.0); Mean Corpuscular Hgb Conc 31.4 g/dL (32.0-36.0); Mean Corpuscular Volume 101.4 fL (80.0-100.0); Mean Platelet Volume 9.6 fL (9.4-12.4); Platelet Count 149 K/uL (130-400); RDW Coefficient of Variation 19.9 % (11.5-14.5); RDW Standard Deviation 71.9 fL (36.4-46.3); Red Blood Count 2.17 M/uL (4.70-6.10); White Blood Count 4.01 K/ul (4.8-10.8)
[2023-09-25] MEDS ORDERED: SODIUM CHLORIDE 0.9% 250 ML IV PRN (06:43)
[2023-09-25 06:50] LABS: Basophils # (auto) 0.02 K/uL (0.00-0.20); Basophils % (auto) 0.5 %; Eosinophils # (auto) 0.48 K/uL (0.00-0.50); Immature Granulocytes # (auto) 0.02 K/uL (0.01-0.20); Immature Granulocytes % (auto) 0.5 %; Lymphocytes # (auto) 1.11 K/uL (1.20-3.40); Lymphocytes % (auto) 27.7 %; Microcytosis Present; Monocytes # (auto) 0.57 K/uL (0.11-0.59); Monocytes % (auto) 14.2 %; Neutrophils # (auto) 1.81 K/uL (1.40-6.50); Neutrophils % (auto) 45.1 %; Polychromasia 1+
[2023-09-25] MEDS ORDERED: ACETAMINOPHEN 500 MG TAB PO ONE (07:30)
[2023-09-25] MEDS: FLUTICASONE/VILANTEROL 200/25MCG 14 PUFFS/INHALER INH SCH (08:34)
[2023-09-25] MEDS: ACETAMINOPHEN 500 MG TAB PO SCH ×2 (08:35→21:41)
[2023-09-25] MEDS: METHENAMINE HIPPURATE 1 GM TAB PO SCH ×2 (08:35→21:41)
[2023-09-25] MEDS: LOSARTAN POTASSIUM 50 MG TAB PO SCH (08:35)
[2023-09-25] MEDS: FINASTERIDE 5 MG TAB PO SCH (08:35)
[2023-09-25] MEDS: PANTOprazole 40 MG TAB PO SCH (08:35)
[2023-09-25] MEDS: MULTIVITAMIN TAB PO SCH (08:36)
[2023-09-25] MEDS: METOPROLOL SUCC 50MG EXT REL TAB PO SCH (08:36)
[2023-09-25] MEDS: FUROSEMIDE 40 MG TAB PO SCH (08:36)
[2023-09-25] MEDS: LATANOPROST 0.005% OP SOLN 2.5 ML BTL OPB SCH (08:38)
[2023-09-25] MEDS: POTASSIUM CHLORIDE CRTAB 20 MEQ TABCR PO SCH (08:41)
[2023-09-25] MEDS: INSULIN ASPART PER UNIT CHARGE SC SCH ×4 (08:41→20:46)
[2023-09-25] MEDS ORDERED: FUROSEMIDE INJ 20 MG/2 ML VIAL IV ONE (09:30)
--- NOTE | 2023-09-25 11:46 | Hospitalist Progress Note ---
Date of Service September 25, 2023 Assessment & Plan (1) Epistaxis requiring cauterization: (2) Transfusion-dependent anemia: (3) Multiple myeloma: (4) Ischemic cardiomyopathy: (5) Tachy-lorna syndrome: Plan Mr. 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 Given requirement for leukoirratiated blood, will have a unit on stand-by for am as it is suspected patient will likely require unit. #Acute epistaxis s/p cauterization right anterior No more bleeding noted HemoGlobin dropped to 5.9 today-not solely due to epistaxis No more epistaxis or bleeding from anywhere else #Acute on chronic anemia iso Multiple Myeloma No signs of bleeding Onoging palliative and heme-oncology follow up for multiple myeloma, patient not a candidate for treatments due to multiple comorbidities as per [facility] Hematology note. Follows for weekly cbc and transfusions Encouraged follow up with Heme/Onc given concerns over transfusion dependence Hgb 7.1, type and screened on admission Hemoglobin dropped to 5.9 this morning Will have 1 unit of PRBC followed by hemoglobin and hematocrit check and if still below 7 will give second unit Hold plavix, resume in 24 hours if bleeding stable Hemoglobin dropped to 6.9 and is receiving another unit of blood transfusion today We will recheck hemoglobin following the transfusion and tomorrow again Lasix is still on hold and will restart Plavix if hemoglobin remains stable tomorrow #chronic diastolic heart failure (EF 60 to 65%, TTE 2022), patient on the dry side SSS status post PPM, paced rhythm, not on anticoagulation secondary to bleeding risk CAD status post CABG/stent, PVD valvular heart disease (mild /TR, moderate MR) Pulmonary hypertension as per records hypertension, slightly elevated -Resume home medications as prescribed -No signs and or symptoms of fluid overload and the chest x-rays not showing any congestion #COPD, lung status at baseline-denies any wheezing #DM2 on oral medications, well-controlled as of recent hemoglobin A1c of 5.3 last July 2023 #Recurrent UTIs on chronic methenamine suppression Rx #dementia as per records, at baseline Diet DMII/carb consistent DVT SCDs 2/2 bleeding and anemia Clinically better and will continue current management Prognosis remains very poor-will discuss with the family members Admission and Anticipated Discharge Date Admission Date: September 23, 2023 Subjective 09/24/2023 The patient was seen and examined in medical telemetry unit He has been very weak and lethargic Denies any shortness of breath at rest, any chest pain and her palpitation, any abdominal pain and nausea or vomit Hemoglobin dropped to 5.9 this morning without any obvious signs of bleeding 09/25/2023 The patient was seen and examined in medical telemetry unit He remains very weak and lethargic and also pleasantly confused Besides weakness denies any other symptoms Review of Systems Review of Systems: All systems reviewed and are unremarkable except as noted below Physical Exam Physical Exam: Lying in bed without any acute distress but looks very pale Constitutional: + ill appearing and average body habitus Eyes: PERRL, conjunctivae normal, anicteric sclerae ENMT: external ear and nose normal, oropharynx normal Neck: trachea midline, no thyromegaly Respiratory: no respiratory distress Auscultation: lungs clear to ausculta tion bilaterally; no crackles Cardiovascular: Rate/Rhythm: regular rate and regular rhythm; not tachycardic Heart Sounds: normal S1 and normal S2; no murmur Extremities: + edema (No edema) Gastrointestinal (Abdomen): Inspection/Auscultation: normal bowel sounds; abdomen not distended Percussion/Palpation: abdomen soft; abdomen nontender Musculoskeletal: No acute arthritis involving any of the joint Neurologic: normal touch/pain/proprioception and moves all extremities; no focal motor deficits Lymphatic: no cervical or axillary lymphadenopathy Results & Data Results & Data Vital Signs (Past 12 Hours) Vital Signs Temp Pulse Pulse Resp BP BP BP 09/25/23 10:57 37.2 C 70 18 131/71 09/25/23 10:00 36.6 C 70 18 128/68 09/25/23 09:00 36.5 C 70 18 120/88 09/25/23 08:33 36.6 C 70 18 128/68 09/25/23 08:30 36.9 C 71 18 133/65 09/25/23 08:17 36.3 C L 71 18 149/73 H 09/25/23 07:59 36.3 C L 70 18 143/71 H 09/25/23 07:56 36.5 C 70 18 143/71 H 09/25/23 07:49 37.1 C 70 18 146/67 H 09/25/23 06:01 68 09/25/23 04:44 36.6 C 70 18 120/53 L 09/25/23 00:40 36.5 C 73 18 137/65 Pulse Ox O2 Del Method O2 Flow Rate 09/25/23 10:57 09/25/23 10:00 98 09/25/23 09:00 93 09/25/23 08:33 98 09/25/23 08:30 94 09/25/23 08:17 98 2 09/25/23 07:59 97 09/25/23 07:56 97 09/25/23 07:49 99 Nasal Cannula 2 09/25/23 06:01 09/25/23 04:44 98 Nasal Cannula 2 09/25/23 00:40 97 Nasal Cannula 2 Laboratory Results Short CBC 09/24/23 09/25/23 Range/Units 14:33 05:25 WBC 4.01 L (4.8-10.8) K/ul Hgb 7.3 L 6.9 L* (14.0-18.0) g/dl Hct 22.5 L 22.0 L (42.0-52.0) % Plt Count 149 (130-400) K/uL BMP 09/25/23 05:25 Sodium 143 Potassium 4.0 Chloride 105 Carbon Dioxide 27 BUN 41 H Creatinine 1.89 H D Glucose 98 Calcium 8.6 Medications Administered Current Inpatient Medications Acetaminophen (Acetaminophen 325 Mg Tab) 650 mg PO Q4H PRN PRN Reason: Pain or Fever Stop: 10/24/23 00:01 Acetaminophen (Acetaminophen 500 Mg Tab) 500 mg PO BID [facility] Stop: 10/24/23 00:01 Last Admin: 09/25/23 08:35 Dose: 500 mg Albuterol (Albuterol Hfa 8 Gm Inhaler) 2 puffs INH QID PRN PRN Reason: Shortness Of Breath Stop: 10/24/23 00:01 Dextrose (Dextrose 50% 50 Ml Syringe) 25 - 50 ml IV UD PRN; Protocol PRN Reason: Hypoglycemia Protocol Stop: 10/24/23 00:01 Digoxin (Digoxin 0.125 Mg Tab) 0.125 mg PO [id number]@1600 [facility] Stop: 10/25/23 15:59 Ferrous Sulfate (Ferrous Sulfate 325 Mg Tab) 325 mg PO Q48H [facility] Stop: 10/24/23 08:59 Last Admin: 09/24/23 09:01 Dose: 325 mg Finasteride (Finasteride 5 Mg Tab) 5 mg PO QAM [facility] Stop: 10/24/23 08:59 Last Admin: 09/25/23 08:35 Dose: 5 mg Fluticasone/Vilanterol (Fluticasone/Vilanterol 200/25mcg 14 Puffs/Inhaler) 1 puffs INH DAILY [facility] Stop: 10/24/23 08:59 Last Admin: 09/25/23 08:34 Dose: 1 puffs Furosemide (Furosemide 40 Mg Tab) 40 mg PO QAM [facility] Stop: 10/24/23 08:59 Last Admin: 09/25/23 08:36 Dose: 40 mg Glucagon (Glucagon For Inj 1 Mg Vial) 1 mg SQ UD PRN; Protocol PRN Reason: Hypoglycemia Protocol Stop: 10/24/23 00:01 Glucose (Glucose 10 Tab/Tube) 4 - 8 tab PO UD PRN; Protocol PRN Reason: Hypoglycemia Treatment Stop: 10/24/23 00:01 Glucose (Glucose 40% Gel 15 Gm Tube) 15 - 30 gm PO UD PRN; Protocol PRN Reason: Hypoglycemia Protocol Stop: 10/24/23 00:01 Sodium Chloride (Nss) 250 mls @ 15 mls/hr IV .[id number] PRN PRN Reason: For Transfusion Duration Stop: 09/25/23 16:43 Insulin Aspart (Insulin Aspart Per Unit Charge) 0 units SC ACHS [facility] Stop: 10/24/23 00:01 Last Admin: 09/25/23 08:41 Dose: 2 units Latanoprost (Latanoprost 0.005% Op Soln 2.5 Ml Btl) 1 drops OPB QAM [facility] Stop: 10/24/23 08:59 Last Admin: 09/25/23 08:38 Dose: 1 drops Losartan Potassium (Losartan Potassium 50 Mg Tab) 50 mg PO QAM [facility] Stop: 10/24/23 08:59 Last Admin: 09/25/23 08:35 Dose: 50 mg Magnesium Oxide (Magnesium Oxide 400 Mg Tab) 400 mg PO PM [facility] Stop: 10/24/23 00:01 Last Admin: 09/24/23 21:20 Dose: 400 mg Methenamine Hippurate (Methenamine Hippurate 1 Gm Tab) 1 gm PO BID [facility] Stop: 10/24/23 00:01 Last Admin: 09/25/23 08:35 Dose: 1 gm Metoprolol Succinate (Metoprolol Succ 50mg Ext Rel Tab) 50 mg PO QAM [facility] Stop: 10/24/23 08:59 Last Admin: 09/25/23 08:36 Dose: 50 mg Miscellaneous (Carbohydrates For Hypoglycemia ) 15 - 30 gm PO UD PRN PRN Reason: Hypoglycemia Protocol Stop: 10/24/23 00:01 Multivitamins (Multivitamin Tab) 1 tab PO DAILY [facility] Stop: 10/24/23 08:59 Last Admin: 09/25/23 08:36 Dose: 1 tab Ondansetron HCl (Ondansetron 4 Mg Od Tab) 4 mg PO Q6H PRN PRN Reason: Nausea And Vomiting Stop: 10/24/23 00:01 Pantoprazole Sodium (Pantoprazole 40 Mg Tab) 40 mg PO QAM [facility] Stop: 10/24/23 08:59 Last Admin: 09/25/23 08:35 Dose: 40 mg Polyethylene Glycol (Polyethylene (Miralax) 17 Gm Pack) 17 gm PO DAILY PRN PRN Reason: Constipation Stop: 10/24/23 00:01 Potassium Chloride (Potassium Chloride Crtab 20 Meq Tabcr) 20 meq PO QAM [facility] Stop: 10/24/23 08:59 Last Admin: 09/25/23 08:41 Dose: 20 meq Sodium Chloride (Sodium Chloride 0.65% Na Soln 45 Ml ([place])) 2 sprays NA Q1H PRN PRN Reason: Dryness Stop: 10/24/23 00:01
[2023-09-25 14:55] LABS: Hematocrit (blood only) 24.4 % (42.0-52.0); Hemoglobin 7.8 g/dl (14.0-18.0)
[2023-09-25] MEDS ORDERED: DIGOXIN 0.125 MG TAB PO SCH (16:00)
[2023-09-25] MEDS: MAGNESIUM OXIDE 400 MG TAB PO SCH (21:41)
[2023-09-26 08:02] LABS: Basophils # (auto) 0.02 K/uL (0.00-0.20); Basophils % (auto) 0.5 %; Eosinophils # (auto) 0.52 K/uL (0.00-0.50); Eosinophils % (auto) 13.5 %; Hematocrit (blood only) 24.6 % (42.0-52.0); Immature Granulocytes # (auto) 0.03 K/uL (0.01-0.20); Immature Granulocytes % (auto) 0.8 %; Lymphocytes # (auto) 0.97 K/uL (1.20-3.40); Lymphocytes % (auto) 25.1 %; Mean Corpuscular Hemoglobin 31.6 pg (25.0-34.0); Mean Corpuscular Hgb Conc 32.5 g/dL (32.0-36.0); Mean Corpuscular Volume 97.2 fL (80.0-100.0); Mean Platelet Volume 9.3 fL (9.4-12.4); Monocytes # (auto) 0.59 K/uL (0.11-0.59); Monocytes % (auto) 15.3 %; Neutrophils # (auto) 1.73 K/uL (1.40-6.50); Neutrophils % (auto) 44.8 %; Platelet Count 155 K/uL (130-400); RDW Coefficient of Variation 19.2 % (11.5-14.5); RDW Standard Deviation 64.6 fL (36.4-46.3); Red Blood Count 2.53 M/uL (4.70-6.10); White Blood Count 3.86 K/ul (4.8-10.8)
[2023-09-26 08:16] LABS: BUN Creatinine Ratio 22.5 (10-20); Calcium 8.8 mg/dl (8.6-10.3); Creatinine Clr Calc Pharmacy 31.8 ml/min; Est GFR (African American) 39.7 ml/min; Est GFR (Non-African American) 34.2 ml/min; Potassium 3.9 mmol/L (3.5-5.1)
[2023-09-26] MEDS: ACETAMINOPHEN 500 MG TAB PO SCH ×2 (08:48→21:14)
[2023-09-26] MEDS: PANTOprazole 40 MG TAB PO SCH (08:48)
[2023-09-26] MEDS: METHENAMINE HIPPURATE 1 GM TAB PO SCH ×2 (08:48→21:15)
[2023-09-26] MEDS: FERROUS SULFATE 325 MG TAB PO SCH (08:48)
[2023-09-26] MEDS: METOPROLOL SUCC 50MG EXT REL TAB PO SCH (08:48)
[2023-09-26] MEDS: FINASTERIDE 5 MG TAB PO SCH (08:48)
[2023-09-26] MEDS: MULTIVITAMIN TAB PO SCH (08:48)
[2023-09-26] MEDS: FUROSEMIDE 40 MG TAB PO SCH (08:48)
[2023-09-26] MEDS: POTASSIUM CHLORIDE CRTAB 20 MEQ TABCR PO SCH (08:48)
[2023-09-26] MEDS: LOSARTAN POTASSIUM 50 MG TAB PO SCH (08:48)
[2023-09-26] MEDS: LATANOPROST 0.005% OP SOLN 2.5 ML BTL OPB SCH (08:49)
[2023-09-26] MEDS: FLUTICASONE/VILANTEROL 200/25MCG 14 PUFFS/INHALER INH SCH (08:49)
[2023-09-26] MEDS: INSULIN ASPART PER UNIT CHARGE SC SCH ×4 (08:51→20:44)
[2023-09-26] MEDS ORDERED: OXYMETAZOLINE 0.05% 30 ML BTL ONE (10:43)
[2023-09-26] MEDS ORDERED: TXA 10% Non-IV Routes 100 MG/ML VIAL NEB ONE (10:43)
--- NOTE | 2023-09-26 12:45 | Hospitalist Progress Note ---
Date of Service September 26, 2023 Assessment & Plan (1) Epistaxis requiring cauterization: Plan: Has had an episode of nosebleed this morning Constant pressure for about 10 minutes did not improve the bleeding Given Afrin and also tranexamic acid nebulization to control the bleeding Check later on and found not to have any more bleeding (2) Transfusion-dependent anemia: (3) Multiple myeloma: (4) Ischemic cardiomyopathy: (5) Tachy-lorna syndrome: Plan Mr. 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 Given requirement for leukoirratiated blood, will have a unit on stand-by for am as it is suspected patient will likely require unit. #Acute epistaxis s/p cauterization right anterior No more bleeding noted HemoGlobin dropped to 5.9 today-not solely due to epistaxis No more epistaxis or bleeding from anywhere else Has had another episode of bleeding in the hospital required Afrin and tranexamic acid to stop it #Acute on chronic anemia iso Multiple Myeloma No signs of bleeding Onoging palliative and heme-oncology follow up for multiple myeloma, patient not a candidate for treatments due to multiple comorbidities as per [facility] Hematology note. Follows for weekly cbc and transfusions Encouraged follow up with Heme/Onc given concerns over transfusion dependence Hgb 7.1, type and screened on admission Hemoglobin dropped to 5.9 this morning Will have 1 unit of PRBC followed by hemoglobin and hematocrit check and if still below 7 will give second unit Hold plavix, resume in 24 hours if bleeding stable Hemoglobin dropped to 6.9 and is receiving another unit of blood transfusion today We will recheck hemoglobin following the transfusion and tomorrow again Lasix is still on hold and will restart Plavix if hemoglobin remains stable tomorrow Has had 2 units of PRBCs so far since this admission Hemoglobin remains stable at 8.0 today with platelet count of 155 He has been feeling better Will get PT OT evaluation before discharge #chronic diastolic heart failure (EF 60 to 65%, TTE 2022), patient on the dry side SSS status post PPM, paced rhythm, not on anticoagulation secondary to bleeding risk CAD status post CABG/stent, PVD valvular heart disease (mild /TR, moderate MR) Pulmonary hypertension as per records hypertension, slightly elevated -Resume home medications as prescribed -No signs and or symptoms of fluid overload and the chest x-rays not showing any congestion -Chest remains clear and does not have any signs of fluid overload #COPD, lung status at baseline-denies any wheezing #DM2 on oral medications, well-controlled as of recent hemoglobin A1c of 5.3 last July 2023 #Recurrent UTIs on chronic methenamine suppression Rx #dementia as per records, at baseline and has profound deafness Diet DMII/carb consistent DVT SCDs 2/2 bleeding and anemia Clinically better and will continue current management Prognosis remains very poor-will discuss with the family members Discussed with the family member for possible discharge this afternoon if he does well with PT and OT Admission and Anticipated Discharge Date Admission Date: September 23, 2023 Subjective 09/24/2023 The patient was seen and examined in medical telemetry unit He has been very weak and lethargic Denies any shortness of breath at rest, any chest pain and her palpitation, any abdominal pain and nausea or vomit Hemoglobin dropped to 5.9 this morning without any obvious signs of bleeding 09/25/2023 The patient was seen and examined in medical telemetry unit He remains very weak and lethargic and also pleasantly confused Besides weakness denies any other symptoms 09/26/2023 The patient was seen and examined in medical telemetry unit He has been doing much better but has had an episode of nosebleed this morning Controlled with pressure and also medications Weakness is better and he is out of bed on a chair Review of Systems Review of Systems: All systems reviewed and are unremarkable except as noted below Physical Exam Physical Exam: Out of bed on a chair without any acute distress Constitutional: + ill appearing and average body habitus Eyes: PERRL, conjunctivae normal, anicteric sclerae ENMT: external ear and nose normal, oropharynx normal Neck: trachea midline, no thyromegaly Respiratory: no respiratory distress Auscultation: lungs clear to auscultation bilaterally; no crackles Cardiovascular: Rate/Rhythm: regular rate and regular rhythm; not tachycardic Heart Sounds: normal S1 and normal S2; no murmur Extremities: + edema (No edema) Gastrointestinal (Abdomen): Inspection/Auscultation: normal bowel sounds; abdomen not distended Percussion/Palpation: abdomen soft; abdomen nontender Musculoskeletal: No acute arthritis involving any of the joint Neurologic: normal touch/pain/proprioception and moves all extremities; no focal motor deficits Lymphatic: no cervical or axillary lymphadenopathy Results & Data Results & Data Vital Signs (Past 12 Hours) Vital Signs Temp Pulse Resp BP Pulse Ox O2 Del Method O2 Flow Rate 09/26/23 11:31 Room Air, Nasal Cannula 2 09/26/23 11:14 36.3 C L 73 18 125/65 94 Room Air 09/26/23 11:11 70 16 Room Air 09/26/23 07:50 36.2 C L 70 16 151/71 H 99 Nasal Cannula 2 09/26/23 05:00 36.5 C 75 16 148/72 H 95 Nasal Cannula 2 Laboratory Results Short CBC 09/25/23 09/26/23 Range/Units 14:39 07:34 WBC 3.86 L (4.8-10.8) K/ul Hgb 7.8 L 8.0 L (14.0-18.0) g/dl Hct 24.4 L 24.6 L (42.0-52.0) % Plt Count 155 (130-400) K/uL BMP 09/26/23 07:34 Sodium 144 Potassium 3.9 Chloride 104 Carbon Dioxide 27 BUN 39 H Creatinine 1.73 H Glucose 115 H Calcium 8.8 Medications Administered Current Inpatient Medications Acetaminophen (Acetaminophen 325 Mg Tab) 650 mg PO Q4H PRN PRN Reason: Pain or Fever Stop: 10/24/23 00:01 Acetaminophen (Acetaminophen 500 Mg Tab) 500 mg PO BID [facility] Stop: 10/24/23 00:01 Last Admin: 09/26/23 08:48 Dose: 500 mg Albuterol (Albuterol Hfa 8 Gm Inhaler) 2 puffs INH QID PRN PRN Reason: Shortness Of Breath Stop: 10/24/23 00:01 Dextrose (Dextrose 50% 50 Ml Syringe) 25 - 50 ml IV UD PRN; Protocol PRN Reason: Hypoglycemia Protocol Stop: 10/24/23 00:01 Digoxin (Digoxin 0.125 Mg Tab) 0.125 mg PO MoWeFr@1600 [facility] Stop: 10/25/23 15:59 Last Admin: 09/25/23 16:12 Dose: 0.125 mg Ferrous Sulfate (Ferrous Sulfate 325 Mg Tab) 325 mg PO Q48H [facility] Stop: 10/24/23 08:59 Last Admin: 09/26/23 08:48 Dose: 325 mg Finasteride (Finasteride 5 Mg Tab) 5 mg PO QAM [facility] Stop: 10/24/23 08:59 Last Admin: 09/26/23 08:48 Dose: 5 mg Fluticasone/Vilanterol (Fluticasone/Vilanterol 200/25mcg 14 Puffs/Inhaler) 1 puffs INH DAILY [facility] Stop: 10/24/23 08:59 Last Admin: 09/26/23 08:49 Dose: 1 puffs Furosemide (Furosemide 40 Mg Tab) 40 mg PO QAM [facility] Stop: 10/24/23 08:59 Last Admin: 09/26/23 08:48 Dose: 40 mg Glucagon (Glucagon For Inj 1 Mg Vial) 1 mg SQ UD PRN; Protocol PRN Reason: Hypoglycemia Protocol Stop: 10/24/23 00:01 Glucose (Glucose 10 Tab/Tube) 4 - 8 tab PO UD PRN; Protocol PRN Reason: Hypoglycemia Treatment Stop: 10/24/23 00:01 Glucose (Glucose 40% Gel 15 Gm Tube) 15 - 30 gm PO UD PRN; Protocol PRN Reason: Hypoglycemia Protocol Stop: 10/24/23 00:01 Insulin Aspart (Insulin Aspart Per Unit Charge) 0 units SC ACHS [facility] Stop: 10/24/23 00:01 Last Admin: 09/26/23 08:51 Dose: 4 units Latanoprost (Latanoprost 0.005% Op Soln 2.5 Ml Btl) 1 drops OPB QAM [facility] Stop: 10/24/23 08:59 Last Admin: 09/26/23 08:49 Dose: 1 drops Losartan Potassium (Losartan Potassium 50 Mg Tab) 50 mg PO QAM [facility] Stop: 10/24/23 08:59 Last Admin: 09/26/23 08:48 Dose: 50 mg Magnesium Oxide (Magnesium Oxide 400 Mg Tab) 400 mg PO PM [facility] Stop: 10/24/23 00:01 Last Admin: 09/25/23 21:41 Dose: 400 mg Methenamine Hippurate (Methenamine Hippurate 1 Gm Tab) 1 gm PO BID [facility] Stop: 10/24/23 00:01 Last Admin: 09/26/23 08:48 Dose: 1 gm Metoprolol Succinate (Metoprolol Succ 50mg Ext Rel Tab) 50 mg PO QAM [facility] Stop: 10/24/23 08:59 Last Admin: 09/26/23 08:48 Dose: 50 mg Miscellaneous (Carbohydrates For Hypoglycemia ) 15 - 30 gm PO UD PRN PRN Reason: Hypoglycemia Protocol Stop: 10/24/23 00:01 Multivitamins (Multivitamin Tab) 1 tab PO DAILY [facility] Stop: 10/24/23 08:59 Last Admin: 09/26/23 08:48 Dose: 1 tab Ondansetron HCl (Ondansetron 4 Mg Od Tab) 4 mg PO Q6H PRN PRN Reason: Nausea And Vomiting Stop: 10/24/23 00:01 Pantoprazole Sodium (Pantoprazole 40 Mg Tab) [facility] Stop: 10/24/23 08:59 Last Admin: 09/26/23 08:48 Dose: 40 mg Polyethylene Glycol (Polyethylene (Miralax) 17 Gm Pack) 17 gm PO DAILY PRN PRN Reason: Constipation Stop: 10/24/23 00:01 Potassium Chloride (Potassium Chloride Crtab 20 Meq Tabcr) 20 meq [facility] Stop: 10/24/23 08:59 Last Admin: 09/26/23 08:48 Dose: 20 meq Sodium Chloride (Sodium Chloride 0.65% Na Soln 45 Ml ([place])) 2 sprays NA Q1H PRN PRN Reason: Dryness Stop: 10/24/23 00:01
[2023-09-26] MEDS: MAGNESIUM OXIDE 400 MG TAB PO SCH (21:15)
[2023-09-27 06:09] LABS: Basophils # (auto) 0.02 K/uL (0.00-0.20); Basophils % (auto) 0.5 %; Eosinophils % (auto) 11.4 %; Hematocrit (blood only) 24.3 % (42.0-52.0); Immature Granulocytes # (auto) 0.01 K/uL (0.01-0.20); Immature Granulocytes % (auto) 0.2 %; Lymphocytes % (auto) 29.7 %; Mean Corpuscular Hemoglobin 32.7 pg (25.0-34.0); Mean Corpuscular Hgb Conc 32.9 g/dL (32.0-36.0); Mean Corpuscular Volume 99.2 fL (80.0-100.0); Mean Platelet Volume 9.6 fL (9.4-12.4); Monocytes # (auto) 0.61 K/uL (0.11-0.59); Monocytes % (auto) 13.9 %; Neutrophils # (auto) 1.94 K/uL (1.40-6.50); Neutrophils % (auto) 44.3 %; Platelet Count 158 K/uL (130-400); RDW Coefficient of Variation 18.9 % (11.5-14.5); RDW Standard Deviation 67.2 fL (36.4-46.3); Red Blood Count 2.45 M/uL (4.70-6.10); White Blood Count 4.38 K/ul (4.8-10.8)
[2023-09-27 06:24] LABS: BUN Creatinine Ratio 22.5 (10-20); Calcium 8.7 mg/dl (8.6-10.3); Creatinine Clr Calc Pharmacy 27.5 ml/min; Est GFR (African American) 33.3 ml/min; Est GFR (Non-African American) 28.7 ml/min; Potassium 3.8 mmol/L (3.5-5.1)
[2023-09-27] MEDS: ACETAMINOPHEN 500 MG TAB PO SCH (08:48)
[2023-09-27] MEDS: POTASSIUM CHLORIDE CRTAB 20 MEQ TABCR PO SCH (08:48)
[2023-09-27] MEDS: INSULIN ASPART PER UNIT CHARGE SC SCH ×2 (08:49→13:09)
[2023-09-27] MEDS: METHENAMINE HIPPURATE 1 GM TAB PO SCH (08:49)
[2023-09-27] MEDS: FUROSEMIDE 40 MG TAB PO SCH (08:50)
[2023-09-27] MEDS: LOSARTAN POTASSIUM 50 MG TAB PO SCH (08:50)
[2023-09-27] MEDS: METOPROLOL SUCC 50MG EXT REL TAB PO SCH (08:50)
[2023-09-27] MEDS: MULTIVITAMIN TAB PO SCH (08:50)
[2023-09-27] MEDS: FINASTERIDE 5 MG TAB PO SCH (08:50)
[2023-09-27] MEDS: PANTOprazole 40 MG TAB PO SCH (08:50)
[2023-09-27] MEDS: FLUTICASONE/VILANTEROL 200/25MCG 14 PUFFS/INHALER INH SCH (08:51)
[2023-09-27] MEDS: LATANOPROST 0.005% OP SOLN 2.5 ML BTL OPB SCH (08:52)
--- NOTE | 2023-09-27 13:03 | Hospitalist Progress Note ---
Date of Service September 27, 2023 Assessment & Plan (1) Epistaxis requiring cauterization: (2) Transfusion-dependent anemia: (3) Multiple myeloma: (4) Ischemic cardiomyopathy: (5) Tachy-lorna syndrome: Plan Mr. 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 Given requirement for leukoirratiated blood, will have a unit on stand-by for am as it is suspected patient will likely require unit. Acute epistaxis s/p cauterization right anterior Required cautery Plavix on hold Received Afrin and tranexamic acid Neb Epistaxis resolved Advised to follow-up with ENT as outpatient Acute on chronic anemia due to Multiple Myeloma Transfusion dependent anemia Ongoing palliative and heme-oncology follow up for multiple myeloma, patient not a candidate for treatments due to multiple comorbidities as per [facility] [place]. Follows for weekly cbc and transfusions S/P 2 units PRBCs Hb 8.0 Monitor CBC Needs follow-up with oncology upon discharge Patient not interested in rehab placement Chronic diastolic heart failure (EF 60 to 65%, TTE 2022) SSS status post PPM, paced rhythm, not on anticoagulation secondary to bleeding risk CAD status post CABG/stent, PVD valvular heart disease (mild /TR, moderate MR) Pulmonary hypertension as per records Hypertension Continue home medications except plavix Plan to resume Plavix in 2 days if no recurrence of bleeding CKD III Gradually worsening renal function likely secondary to multiple myeloma Creatinine at baseline when compared to outpatient labs Advised to follow-up with nephrology as outpatient COPD No signs of exacerbation DM II Last HbA1c 5.5 Hold oral medications Continue insulin while hospitalized Monitor BGs Recurrent UTIs on chronic methenamine suppression Rx Dementia At baseline Reorient frequently to minimize delirium DVT Px: SCDs Re:bleeding and anemia CODE STATUS DNR/DNI Disposition Home Admission and Anticipated Discharge Date Admission Date: September 23, 2023 Subjective Patient is seen and examined at bedside No recurrence of epistaxis Poor historian secondary to significant hearing loss Denies any chest pain, dyspnea, dizziness, nausea, vomiting, abdominal pain Patient not interested in Rehab placement Updated patient's over the phone Review of Systems Review of Systems: All systems reviewed & are unremarkable except as noted in Subjective Physical Exam Physical Exam: Physical Exam: Vitals signs as noted above General Appearance:Moderately built and nourished, no apparent distress, elderly Head: normocephalic, Atraumatic Eyes: normal inspection, EOMI Neck: supple, Trachea midline Respiratory/Chest: Normal breath sounds, CTA, No accessory muscle use Cardiovascular: S1, S2, No murmur Abdomen/GI:Soft, Non tender, Bowel sounds present Extremities/Musculoskeletal:normal inspection, Trace edema Neurologic/Psych:AAOX3, grossly no focal neurological deficits,+ decreased hearing Skin: normal color, warm Results & Data Results & Data Vital Signs (Past 12 Hours) Vital Signs Temp Pulse Resp BP Pulse Ox O2 Del Method 09/27/23 11:27 36.6 C 69 18 118/60 94 Room Air 09/27/23 07:36 36.7 C 72 18 151/70 H 97 Room Air 09/27/23 03:53 36.9 C 73 20 150/85 H 97 Room Air Laboratory Results Short CBC 09/27/23 Range/Units 05:33 WBC 4.38 L (4.8-10.8) K/ul Hgb 8.0 L (14.0-18.0) g/dl Hct 24.3 L (42.0-52.0) % Plt Count 158 (130-400) K/uL BMP 09/27/23 05:33 Sodium 141 Potassium 3.8 Chloride 102 Carbon Dioxide 26 BUN 45 H Creatinine 2.00 H Glucose 115 H Calcium 8.7
--- NOTE | 2023-09-27 14:36 | Discharge Summary ---
Date of Service September 27, 2023 Admission HPI Per Admitting Provider Mr. 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 Information obtained from , Remedios, and daughter, Reji, at bedside as patient is poor historian. Reportedly patient has been stable at home until this afternoon when a nose bleed started and lasted nearly an hour. Patient was unable to stop bleeding with holding pressure, therefore prompting call to EMS. Reports remote history of bleed, but nothing similar in nature to this episode. In ED, VS stable with HR in 80s, SBP in 150s, and saturating well on room air. Hgb 7.1 on arrival, compared to discharge hgb 12/15 8.2. ED intervened with silver nitrate in right nare and oxymetazoline. Admission Exam Per Admitting Provider GENERAL APPEARANCE: AxOx2, no acute distress. follows commands, hard of hearing and seems aloof initially, but need to speak louder for engagement HEENT: NC, AT. MMM. EOMI, clear conjunctiva, dried blood in right nare down chest, no active bleeding on exam NECK: Supple without lymphadenopathy. No stiffness or restricted ROM. HEART: Normal rate and regular rhythm, normal S1/S1, no m/r/g LUNGS: CTAB, moving air well. No crackles or wheezes are heard. ABDOMEN: Soft, nontender, nondistended with good bowel sounds heard. EXTREMITIES: Without cyanosis, clubbing or edema. NEUROLOGICAL: Grossly nonfocal. Alert and oriented, moving all 4 extremities. CN not formally tested but appear grossly intact Skin: Warm and dry without any rash. Principal Diagnosis Epistaxis Transfusion dependent anemia Multiple myeloma Discharge Data Allergies Allergy/AdvReac Type Severity Reaction Status Date / Time Sulfa (Sulfonamide Allergy Severe DYSUREA Verified 09/23/23 18:23 Antibiotics) PER [facility] prednisone Allergy Intermediate BLISTERS Verified 09/23/23 18:23 IN THROAT hydrocodone AdvReac Severe ALTERED Verified 09/23/23 18:23 MENTAL STATUS FELECIA Inhibitors AdvReac Intermediate Cough Verified 09/23/23 18:23 pseudoephedrine AdvReac Intermediate TEMP ELEV Verified 09/23/23 18:23 Consultations 09/23/23 20:55 ED Decision to Admit Stat Procedures Performed Laboratory Results WBC 4.38 K/ul (4.8-10.8) L 09/27/23 05:33 RBC 2.45 M/uL (4.70-6.10) L 09/27/23 05:33 Hgb 8.0 g/dl (14.0-18.0) L 09/27/23 05:33 Hct 24.3 % (42.0-52.0) L 09/27/23 05:33 MCV 99.2 fL (80.0-100.0) 09/27/23 05:33 MCH 32.7 pg (25.0-34.0) 09/27/23 05:33 MCHC 32.9 g/dL (32.0-36.0) 09/27/23 05:33 RDW Std Deviation 67.2 fL (36.4-46.3) H 09/27/23 05:33 RDW Coeff of Maricarmen 18.9 % (11.5-14.5) H 09/27/23 05:33 Plt Count 158 K/uL (130-400) 09/27/23 05:33 MPV 9.6 fL (9.4-12.4) 09/27/23 05:33 Immature Gran % (Auto) 0.2 % 09/27/23 05:33 Neut % (Auto) 44.3 % 09/27/23 05:33 Lymph % (Auto) 29.7 % 09/27/23 05:33 [place] % (Auto) 13.9 % 09/27/23 05:33 Eos % (Auto) 11.4 % 09/27/23 05:33 Baso % (Auto) 0.5 % 09/27/23 05:33 Neut # (Auto) 1.94 K/uL (1.40-6.50) 09/27/23 05:33 Lymph # (Auto) 1.30 K/uL (1.20-3.40) 09/27/23 05:33 [place] # (Auto) 0.61 K/uL (0.11-0.59) H 09/27/23 05:33 Eos # (Auto) 0.50 K/uL (0.00-0.50) 09/27/23 05:33 Baso # (Auto) 0.02 K/uL (0.00-0.20) 09/27/23 05:33 Immature Gran # (Auto) 0.01 K/uL (0.01-0.20) 09/27/23 05:33 Polychromasia 1+ 09/25/23 05:25 Anisocytosis Present 09/23/23 17:12 Microcytosis Present 09/25/23 05:25 PT 12.8 Seconds (9.0-12.0) H 09/23/23 18:41 INR 1.2 (0.9-1.1) H 09/23/23 18:41 APTT 25 Seconds (21-31) 09/23/23 18:41 PTT Ratio 0.9 09/23/23 18:41 Sodium 141 mmol/L (136-145) 09/27/23 05:33 Potassium 3.8 mmol/L (3.5-5.1) 09/27/23 05:33 Chloride 102 mmol/L (98-107) 09/27/23 05:33 Carbon Dioxide 26 mmol/L (21-32) 09/27/23 05:33 Anion Gap 13 (3-11) H 09/27/23 05:33 BUN 45 mg/dl (6-23) H 09/27/23 05:33 Creatinine 2.00 mg/dl (0.6-1.4) H 09/27/23 05:33 Est Cr Clr Drug Dosing 27.5 ml/min 09/27/23 05:33 Est GFR ( Amer) 33.3 ml/min 09/27/23 05:33 Est GFR (Non-Af Amer) 28.7 ml/min 09/27/23 05:33 BUN/Creatinine Ratio 22.5 (10-20) H 09/27/23 05:33 Glucose 115 mg/dl (70-99(Fasting)) H 09/27/23 05:33 POC Glucose 183 mg/dl (70-99) H 09/27/23 11:50 Calcium 8.7 mg/dl (8.6-10.3) 09/27/23 05:33 Phosphorus 4.2 mg/dl (2.5-4.9) 09/25/23 05:25 Magnesium 2.0 mg/dl (1.7-2.4) 09/25/23 05:25 Total Bilirubin 0.4 mg/dl (0.2-1.0) 09/23/23 17:12 AST 10 U/L (13-39) L 09/23/23 17:12 ALT 6 U/L (7-52) L 09/23/23 17:12 Alkaline Phosphatase 26 U/L (34-104) L 09/23/23 17:12 Total Protein 7.7 gm/dl (6.0-8.3) 09/23/23 17:12 Albumin 2.7 gm/dl (3.4-5.0) L 09/23/23 17:12 Globulin 5.0 gm/dl (2.5-4.0) H 09/23/23 17:12 Albumin/Globulin Ratio 0.5 (0.9-2) L 09/23/23 17:12 Blood Type A Positive 09/23/23 17:20 Antibody Screen NEGATIVE 09/23/23 17:20 Crossmatch See Detail 09/23/23 17:20 Hospital Course (1) Epistaxis requiring cauterization: (2) Transfusion-dependent anemia: (3) Multiple myeloma: (4) Ischemic cardiomyopathy: (5) Tachy-lorna syndrome: Plan Mr. 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 Given requirement for leukoirratiated blood, will have a unit on stand-by for am as it is suspected patient will likely require unit. Acute epistaxis s/p cauterization right anterior Required cautery Plavix on hold Received Afrin and tranexamic acid Neb Epistaxis resolved Advised to follow-up with ENT as outpatient Acute on chronic anemia due to Multiple Myeloma Transfusion dependent anemia Ongoing palliative and heme-oncology follow up for multiple myeloma, patient not a candidate for treatments due to multiple comorbidities as per [facility] Hematology note. Follows for weekly cbc and transfusions S/P 2 units PRBCs Hb 8.0 Monitor CBC Needs follow-up with oncology upon discharge Patient not interested in rehab placement Chronic diastolic heart failure (EF 60 to 65%, TTE 2022) SSS status post PPM, paced rhythm, not on anticoagulation secondary to bleeding risk CAD status post CABG/stent, PVD valvular heart disease (mild /TR, moderate MR) Pulmonary hypertension as per records Hypertension Continue home medications except plavix Plan to resume Plavix in 2 days if no recurrence of bleeding CKD III Gradually worsening renal function likely secondary to multiple myeloma Creatinine at baseline when compared to outpatient labs Advised to follow-up with nephrology as outpatient COPD No signs of exacerbation DM II Last HbA1c 5.5 Hold oral medications Continue insulin while hospitalized Monitor BGs Recurrent UTIs on chronic methenamine suppression Rx Dementia At baseline Reorient frequently to minimize delirium DVT Px: SCDs Re:bleeding and anemia CODE STATUS DNR/DNI Disposition Home Total Time Total Time Spent Total Time Spent (In Minutes): 55 minutes Discharge Plan Discharge Items Patient Disposition: Home - Self-Care Reason For Visit: EPISTAXSIS Discharge Diagnosis: Epistaxis Transfusion dependent anemia Multiple myeloma Activity: Per Instructions section Exercise/Sports: Wait until after follow-up appointment Non-emergency contact: Primary Care Provider and Specialist Call non-emergency contact if: you have any medication questions, your symptoms worsen, your pain is concerning for you and you have a fever Follow-up/Referrals: Zenobia Lyon MD [Primary Care Provider] - (Date & Time 10/03/2023 2:20 PM Provider Sherron Lyles MD Department Family Medicine [facility] ) Diet: Carb Consistent or DM2 Addtl Attending Provider Instructions: Follow-up with your primary care physician Dr. Lyon on 10/03/2023 2:20 PM Follow-up with your ENT surgeon for further evaluation of nosebleeds as advised in 1 to 2 weeks Follow up your Outpatient Facility Physical Therapist in 3-4 weeks as advised Seek immediate medical attention if your symptoms reoccur or worsen Please take all medications as instructed on discharge list below. Please call if you have any questions or problems. You can reach a [facility] hospitalist on duty at [facility] 24 hours a day by calling [phone] Pending Studies at Discharge: No Stand-Alone Forms: My [facility], Smoking Cessation Medications and DC Order Prescriptions: New Saline Mist 0.65 % Aerosol,[place] 2 spray NA Q1H PRN (Reason: dry nasal passages) Qty: 44 0RF Continued methenamine hippurate 1 gram tablet 1 g PO BID 30 Days Qty: 60 5RF furosemide [Lasix] 40 mg Tablet 40 mg PO QAM fluticasone propion-salmeterol [Advair Diskus] 250-50 mcg/dose Blister With Device 1 inh INHALATION AMHS potassium chloride [Klor-Con M20] 20 mEq Tablet,Er Particles/Crystals 20 meq PO QAM magnesium oxide 400 mg (241.3 mg magnesium) Tablet 400 mg PO PM digoxin 125 mcg Tablet 125 mcg PO 3XWK Rx Instructions: take 1 tablet mon,wed,fri albuterol sulfate [Proventil HFA] 90 mcg/actuation Hfa Aerosol Inhaler 2 puff INHALATION QID PRN (Reason: Shortness Of Breath) latanoprost 0.005 % Drops 1 drp OPB QAM pantoprazole 40 mg tablet,delayed release (DR/EC) 40 mg PO QAM metoprolol succinate 50 mg tablet extended release 24 hr 50 mg PO QAM losartan 50 mg tablet 50 mg PO QAM ferrous sulfate [FeroSul] 325 mg (65 mg iron) tablet 325 mg PO Q OTHER DAY Rx Instructions: PER [facility] multivitamin Tablet 1 tab PO DAILY glipizide 5 mg Tablet Extended Release 24hr 5 mg PO DAILYBB ondansetron HCl 4 mg tablet 4 mg PO Q6H PRN (Reason: Nausea And Vomiting) acetaminophen 500 mg Tablet 500 mg PO BID dutasteride 0.5 mg capsule 0.5 mg PO QAM ciprofloxacin-dexamethasone 0.3-0.1 % drops,suspension 4 drp otic (ear) BID Rx Instructions: STARTED 09/08/23 FOR 14 DAYS, ENDS 09/22/23. Held clopidogrel 75 mg tablet 75 mg PO QAM Hold Instructions: Resume on 09/30/23. Discharge Orders: Discharge Order (Routine); Ordered 09/27/23 Ordered By: Cuba Saucedo Admission Data Admit Date/Time: 09/23/23 19:25 Attending Provider: Cuba Saucedo Admit Provider: Bryanna Davila Primary Care Provider: Zenobia Lyon Other Providers: Bryanna Davila Other Interventions: Discharge Summary Assessment (RN) Last Done: 09/27/23 14:18
== END 2023-09-27 15:09 | disposition home or self-care (01) | DRG 151 ==
LOC: ED 16:24 → 2N 19:25 → SUATTDRO 19:25 → 2N 22:56
DX: I25.10 Atherosclerotic heart disease of native coronary artery without angina pectoris; Z79.84 Long term (current) use of oral hypoglycemic drugs; I49.5 Sick sinus syndrome; G30.9 Alzheimer's disease, unspecified; Z87.440 Personal history of urinary (tract) infections; Z95.0 Presence of cardiac pacemaker; J45.40 Moderate persistent asthma, uncomplicated; E11.22 Type 2 diabetes mellitus with diabetic chronic kidney disease; Z95.1 Presence of aortocoronary bypass graft; I27.20 Pulmonary hypertension, unspecified; J44.9 Chronic obstructive pulmonary disease, unspecified; Z88.2 Allergy status to sulfonamides; I13.0 Hypertensive heart and chronic kidney disease with heart failure and stage 1 through stage 4 chronic kidney disease, or unspecified chronic kidney disease; I25.5 Ischemic cardiomyopathy; I50.32 Chronic diastolic (congestive) heart failure; R04.0 Epistaxis; C90.00 Multiple myeloma not having achieved remission; F02.80 Dementia in other diseases classified elsewhere, unspecified severity, without behavioral disturbance, psychotic disturbance, mood disturbance, and anxiety; I48.19 Other persistent atrial fibrillation; Z88.8 Allergy status to other drugs, medicaments and biological substances; N18.30 Chronic kidney disease, stage 3 unspecified; Z95.5 Presence of coronary angioplasty implant and graft

== ENCOUNTER 2023-10-14 08:56 | Inpatient (IN) ==
--- OUTSIDE RECORDS SUMMARY | 2023-10-14 09:08 | External Medical Summary ---
Author Name Unknown Address Unknown Organization K0G:[facility] [address] [place] [address] Laboratory Report Ordering Provider Test Date Status DEB BULL 10/11/2023 08:59:00 Final Observation Date Value Abnormality Reference (Units ) Status SYNC LEUKOCYTES IN BLOOD BY AUTOMATED COUNT 10/11/2023 08:59:00 4.93 4.00-10.80 (K/uL) Final Segs 10/11/2023 08:59:00 55.6 40.0-75.0 (%) Final Lymphs % 10/11/2023 08:59:00 21.1 18.0-42.0 (%) Final Monos 10/11/2023 08:59:00 14.0 Above high normal 1.0-11.0 (%) Final Eosinophils 10/11/2023 08:59:00 8.9 Above high normal 0.0-6.0 (%) Final Basos 10/11/2023 08:59:00 0.4 0.0-2.0 (%) Final Absolute Segs 10/11/2023 08:59:00 2.74 1.80-7.70 (K/uL) Final Lymphs, absolute 10/11/2023 08:59:00 1.04 1.00-4.80 (K/ul) Final Monos, Abs 10/11/2023 08:59:00 0.69 0.00-1.10 (K/uL) Final Eos, Abs 10/11/2023 08:59:00 0.44 0.00-0.70 (K/uL) Final Basos, Abs 10/11/2023 08:59:00 0.02 0.00-0.20 (K/uL) Final Performing Location [facility] [address] [place] [address]
--- OUTSIDE RECORDS SUMMARY | 2023-10-14 09:08 | External Medical Summary | Summary of Care ---
Author Name Unknown Organization [facility] Address [address] [facility] [place] [address] Phone [phone] Care Team Providers Care Civil Engineering Assistant Name Role Phone Zenobia Lyon MD Primary Care Provide r Reason for Visit * Reason Onset Date Comments [facility]: Acute 10/13/2023 Encounter Details Date Type Department Care Team (Late st Contact Info) Description 10/13/2023 Telephone [facility], [facility] [address] [facility] [place] [address] [facility], Nurse [facility] [address] [facility] [place] [address] [facility]: Acute Allergies Active Allergy Reactions Criticality Noted Date Comments James Inhibitors 09/10/2002 cough on prinivil Hydrocodone 09/05/2022 Family states AMS change when taken Prednisone 05/26/2011 Blisters in throat Sulfa Antibiotics 03/19/2001 dysurea documented as of this encounter (statuses as of 10/13/2023) Medications Medication Sig Dispensed Refills Start Date [...] the morning. 90 Tablet 3 06/21/2023 Active Additional Information Patient taking differently:75 mg Oral Daily(AM),ON HOLD UNTIL 09/30, Reported on 09/29/2023 Metoprolol Succinate ER 50 MG Oral Tablet [...] the morning. 126 Tablet 2 07/25/2023 Active glipiZIDE ER 5 MG Oral Tablet Extended Release 24 Hour (glipiZIDE XL) Take 1 Tablet by mouth in the morning. 30 minutes before a meal.. 90 Tablet 0 09/18/2023 Active Saline Nasal Sanders 0.65 % Nasal Solution (Saline Mist Sanders) Use 2 sprays into Nostril every 1 hour as needed for dry nasal passages 44 mL 0 09/27/2023 Active documented as of this encounter (statuses as of 10/13/2023) Active Problems Patient Care Coordination No te [...] CORONARY ATHEROSCLEROSIS OF UNSPECIFIED TYPE OF VESSEL, EGEGIK OR GRAFT Last Assessment & Plan: Stable. 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 documented as of this encounter (statuses as of 10/13/2023) Resolved Problems Problem Noted Date Diagnosed Date [...] without hematuria 05/30/2022 01/24/2023 Overview: Xavier to [facility] 04/20-04/29 urosepsis multi drug resistant E. Coli [...] glenn ek & Lt. leg ; Rt. confucianist 07/0207/18/2002 07/15/2015 Dyslipidemia, goal to be determined [...] as of this encounter (statuses as of 10/13/2023) Immunizations Name Administration Dates Next Due COVID-19 mRNA, LNP-s, No Pre serve, 2-Dose Series (Moderna) 08/24/2021,12/07/2020,11/09/2020 COVID-19, MRNA-LNP, 23-24, P F, 30 MCG/0.3 mL, 12 YRS AND ABOVE, IM ([email or web address]) 07/19/2023 Covid-19, Mrna, Lnp-s, Pf, B ivalent, [...] Telephone Encounter - Ami Black RN - 10/13/2023 1:03 PM EST Communication Note Name: Marshall Tello Sr. Situation: 88 year old male patient who had blood transfusion yesterday. 2 falls during night, shaking and sob Background: Multiple myeloma, dm copd Had Blood transfusion yesterday at [facility] and had transfusion on Assessment: Patient had blood transfusion yesterday and returned home in evening. (At [facility]) Has had blood transfusions in the past. Had 2 units on 10/06/23. Went to bed and during night got up and fell, family assist him to bed and then again later he fell. They again assisted him up. Did not hit head. Had some confusion last night but not anymore. He was shaking and increase sob from baseline. Shaking stopped. He has Oxygen on at 2 L. She said he feels warm but hands are too cold to get pulse ox reading. Chronic dry cough continue. She has no thermometer but his feels a little warm but hands cold. No N/V/D Patient will not complain of anything so she is unsure of chest congestion. Does not hear wheezing. Had not food today, just water and orange juice. Currently he is sleeping and not in distress Recommendation: Home visit for assessment MIH: N/A [facility] reproduction technician Acute Call Date: 10/13/2023 Time: 1:04 PM Name: Marshall Tello Sr. : 1935 Caller: Remedios Relationship to Chief Complaint [facility] with [facility]: Acute HPI: Marshall Tello Sr. is a 88 year old male that his is calling [facility] Intake to report shaking and sob. Nursing Assessment: Patient had blood transfusion yesterday and returned home in evening. (At [facility]) Has had blood transfusions in the past. Had 2 units on 10/06/23. Went to bed and during night got up and fell, family assist him to bed and then again later he fell. They again assisted him up. Did not hit head. Had some confusion last night but not anymore. He was shaking and increase sob from baseline. Shaking stopped. He has Oxygen on at 2 L. She said he feels warm but hands are too cold to get pulse ox reading. Chronic dry cough continue. She has no thermometer but his feels a little warm but hands cold. No N/V/D Patient will not complain of anything so she is unsure of chest congestion. Does not hear wheezing. Had not food today, just water and orange juice. Currently he is sleeping and not in distress unable to do home covid test Patient's chief complaint for this call: Shortness of breath Other, describe Chills falls Pain Denies pain Baseline Assessment Able to performing ADLs at baseline (walking, daily tasks, etc.): Unknown Chief Complaint is related to a chronic [...] Reinforcement Education: Take all medications as ordered Oxygen up to 3 L Treatment/Plan: (need to report) Level of call: Acute Appointment scheduled for same day: Unsure *Routing to [place] for advice per RNCM Reached out to RNCM and she said she knows patient well and issending this to [place] Treatment plan until appointment: PCs scheduled Routing to care team to review and make recommendations if warranted. Call back instructions provided to patient. Ami Black. RN [place] reproduction technician [phone] documented in this encounter Plan of Treatment Upcoming Encounters Date Type Department Care Team (Late st Contact Info) Description 10/14/2023 1:00 PM EST Scheduled Telephone [facility], [address] [address] [facility], Nurse [address] [address] 10/15/2023 12:00 PM EST Scheduled Telephone [facility] [place], [facility] [address] [place] [address] [facility], Nurse [address] [address] 10/18/2023 9:10 AM EST Laboratory Lab [facility] [address] [place] [address] [facility] Mobile Home Draw [address] [place] [address] 10/18/2023 9:20 AM EST Laboratory [facility] [address] [place] [address] [facility] Mobile Home Draw [address] [place] [address] 10/19/2023 11:20 AM EST Office Visit Family [address] [place] [phone] Zenobia Lyon MD [address] [place] [address] [place] [address] 10/25/2023 9:20 AM EST Laboratory [facility] [address] [place] [address] G[facility], G[facility] Mobile Home Draw [address] [place] [address] 10/26/2023 11:00 AM EST Cardiac Studies Cardiology [address] [place] [address] [facility], [facility] [address] [facility] [place] [address] 11/01/2023 9:10 AM EST Laboratory Lab Mobile Ph[facility]bot[facility] [address] [place] [address] [facility] Mobile Home Draw [address] [place] [address] 11/01/2023 9:20 AM EST Laboratory Lab Mobile Ph[facility]bot[facility] [address] [place] [address] [facility], Gm Mobile Home Draw [address] [place] [address] 11/03/2023 10:45 AM EST Office Visit Hematology/Oncology [facility] [address] [facility] [place] [address] Pietro Sykes MD [address] [place] [address] 11/08/2023 9:20 AM EST Laboratory Lab Mobile Phlebotomy [facility] [address] [place] [address] [facility], Gml Mobile Home Draw [address] [place] [address] 11/13/2023 10:00 AM EST [facility] Visit [facility] [address] [facility] [place] [address] Lila Brownlee, SANKET [address] [place] [address] 11/15/2023 9:10 AM EST Laboratory Lab Mobile Ph[facility]bot[facility] [address] [place] [address] [facility], Gml Mobile Home Draw [address] [place] [address] 11/15/2023 9:20 AM EST Laboratory Lab Mobile Phlebot[facility] [address] [place] [address] [facility], Gml Mobile Home Draw [address] [place] [address] 11/29/2023 9:10 AM EST Laboratory Lab Mobile Phlebot[facility] [address] [place] [address] [facility], Gml Mobile Home Draw [address] [place] [address] 12/13/2023 9:10 AM EDT Laboratory Lab Mobile Phlebot[facility] [address] [place] [address] [facility], Gml Mobile Home Draw [address] [place] [address] 01/04/2024 10:20 AM EDT Office Visit Otolaryngology [facility] [address] [place] [address] Kasi Tejeda PA-C [address] [place] [address] 01/26/2024 11:20 AM EDT Office Visit Family [address] [phone] Zenobia Lyon MD [address] [place] [address] [place] [address] 03/07/2024 1:00 PM EDT Office Visit Cardiology [address] [place] [address] Chris Choudhury PA-C [address] [place] [address] Scheduled Procedures Name Priority Associated Diagnoses Date/Ti me COLONOSCOPY FLEXIBLE PROXIMA L DIAGNOSTIC Recall History of colonic polyps Health Maintenance Due Date Last Done Comments Alpha-1 Antitrypsin 1953 Hepatitis B (1 of 3 - Risk 3-dose series) 1994 DTaP,Tdap,and Td Vaccines (2 - Td or Tdap) 01/11/2023 01/11/2013, 04/01/2003, 04/01/2003 HbA1c 07/27/2023 01/25/2023, 12/03/2022, 01/14/2022, Additional history exists Depression Screening 01/25/2024 01/24/2023 DIG LEVEL FOR MEDICATION MONITORING YEARLY 01/26/2024 01/25/2023, 04/17/2021, 03/09/2020, Additional history exists Albumin/Creatinine Ratio 01/27/2024 023, 01/14/2022, 08/14/2017, Additional history exists Diabetic Eye Exam 07/19/2024 07/19/2023 (Do ne elsewhere), 10/28/2021, 11/02/2020, Additional history exists Diabetic Foot Exam 07/19/2024 07/19/2023, 0 01/14/2022, 12/24/2020, Additional history exists CKD PHOS USE SMARTSET 25484 07/25/202407/03, 09/07/2022, 09/05/2022, Additional history exists O2 ASSESSMENT COMPLETED IN PAST YEAR FOR COPD 09/29/2024 09/29/2023 CKD HGB USE SMARTSET 27811 10/11/202410/11, 10/11/2023, 10/05/2023, Additional history exists COLONOSCOPY-EVERY 5 YRS AGES [...] this encounter Medical Devices Implanted Type Area Oncology Rep Device Identifier Shelf Expiration Date Model / Serial / Lot Screw T2 Alpha Lock 5x47.5mm - [id number] Implanted:Qty: 1 on 09/06/2022 by Sean Silva MD at [facility] Left: Leg Upper RICHELLE : TRAUMA 06/01/2032 [id number] / / [id number] documented as of this encounter Advance Directives Documents on File Type Date Recorded Patient National Account Director Expl anation POLST 10/17/2022 [place] [...] Agen t (per Health Care Power of High Man document) Reji Omer Dotts Adult Child First Alterna te Health Care Agent (per Health Care Power of High Man document) Bowen Tello Adult Child First Alternate Health Care Agent (per Health Care Power of High Man document) Care Teams Civil Engineering Assistant Relationship Specialty Start Date End Date Zenobia Lyon MD [address] [place] [address] [place] [address] PCP - General Family Medicine 05/22/23 documented as of this encounter
--- OUTSIDE RECORDS SUMMARY | 2023-10-14 09:08 | External Medical Summary | Summary of Care ---
Author Name Unknown Organization [facility] Address [address] [place] [address] Phone [phone] Care Team Providers Care Hydraulic Riveter Name Role Phone Zenobia Lyon MD Primary Care Provide r Reason for Visit * Reason Onset Date Comments Test Results 10/11/2023 Encounter Details Date Type Department Care Team (Late st Contact Info) Description 10/11/2023 Telephone Hematology/Oncology Treatment, [place] [address] [place] [address] Pietro Sykes MD [address] [place] [address] Test Results Allergies Active Allergy Reactions Criticality Noted Date Comments James Inhibitors 09/10/2002 cough on prinivil Hydrocodone 09/05/2022 Family states AMS change when taken Prednisone 05/26/2011 Blisters in throat Sulfa Antibiotics 03/19/2001 dysurea documented as of this encounter (statuses as of 10/11/2023) Medications Medication Sig Dispensed Refills Start Date [...] 75 MG Oral Tablet (pLAVix)Indications: Atherosclerosis of [place] coronary artery of [place] heart without angina pectoris Take 1 Tablet [...] 90 Tablet 0 09/18/2023 Active Saline Nasal [place] 0.65 % Nasal Solution (Saline Mist [place]) Use 2 sprays into Nostril every 1 hour as needed for dry nasal passages 44 mL 0 09/27/2023 Active documented as of this encounter (statuses as of 10/11/2023) Active Problems Patient Care Coordination No te [...] CORONARY ATHEROSCLEROSIS OF UNSPECIFIED TYPE OF VESSEL, [place] OR GRAFT Last Assessment & Plan: Stable. 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 documented as of this encounter (statuses as of 10/11/2023) Resolved Problems Problem Noted Date Diagnosed Date [...] as of this encounter (statuses as of 10/11/2023) Immunizations Name Administration Dates Next Due COVID-19 mRNA, LNP-s, No Pre serve, 2-Dose Series (Moderna) 08/24/2021,12/07/2020,11/09/2020 COVID-19, MRNA-LNP, 23-24, P F, 30 MCG/0.3 mL, 12 YRS AND ABOVE, IM [facility] 07/19/2023 Covid-19, Mrna, Lnp-s, Pf, B ivalent, [...] Telephone Encounter - Tiny Chase RN - 10/11/2023 3:[address] Sykes: "Hemoglobin level --> 7.1 (10/11/2022) Transfuse 1 unit of PRBC. Lasix 20 mg IV after the transfusion. " Called patients . Patient is "not good", sleeps all the time. She thinks his SOB may be a little worse. She notices that he rests his hand on his breastbone a lot, but he denies any CP. Advised her that we will arrange outpatient transfusion, will Patient to receive 1 unit PRBC. Called [facility] blood bank (Luisa). They will be able to have blood for patient. Called [facility] (Lesly) and central scheduling (Chelsi). Patient scheduled for tomorrow at noon. Patients verbalized understanding of appt time. Faxed order to [facility]/ blood bank. TT sent to [facility] to see if hospitalist can consent patient. Patient has no follow up appt scheduled. Discussed with Dr Sykes, would like patient to be scheduled for follow up. Scheduling: please call patients to schedule follow up with Dr Sykes. Thanks! documented in this encounter Plan of Treatment Upcoming Encounters Date Type Department Care Team (Late st Contact Info) Description 10/18/2023 9:10 AM EST Laboratory Lab Mobile Phlebotomy [facility] [address] [place] [address] Gmc, Gml Mobile Home Draw [address] [place] [address] 10/18/2023 9:20 AM EST Laboratory Lab Mobile Phlebotomy [facility] [address] [place] [address] Gmc, Gml Mobile Home Draw [address] [place] [address] 10/19/2023 11:20 AM EST Office Visit Family Medicine [address] [place] [phone] Zenobia Lyon MD [address] [place] [address] [place] [address] 10/25/2023 9:20 AM EST Laboratory Lab Mobile Phlebotomy [facility] [address] [place] [address] [facility], Gm Mobile Home Draw [address] [place] [address] 10/26/2023 11:00 AM EST Cardiac Studies Cardiology [address] [place] [address] [place], Pacer [address] [place] [address] 11/01/2023 9:10 AM EST Laboratory Lab Mobile Phlebotomy [facility] [address] [place] [address] Gmc, Gml Mobile Home Draw [address] [place] [address] 11/01/2023 9:20 AM EST Laboratory Lab Mobile Phlebotomy [facility] [address] [place] [address] Gmc, Gml Mobile Home Draw [address] [place] [address] 11/08/2023 9:20 AM EST Laboratory Lab Mobile Phlebotomy [facility] [address] [place] [address] Gmc, Gml Mobile Home Draw [address] [place] [address] 11/13/2023 10:00 AM EST Home Visit [facility]inger at [facility] [address] [place] [address] Lila Brownlee RN [address] [place] [address] 11/15/2023 9:10 AM EST Laboratory Lab Mobile Phlebotomy [facility] [address] [place] [address] [facility], Gml Mobile Home Draw [address] [place] [address] 11/15/2023 9:20 AM EST Laboratory Lab Mobile Phlebotomy [facility] [address] [place] [address] Gmc, Gml Mobile Home Draw [address] [place] [address] 11/29/2023 9:10 AM EST Laboratory Lab Mobile Phlebotomy [facility] [address] [place] [address] Gmc, Gml Mobile Home Draw [address] [place] [address] 12/13/2023 9:10 AM EDT Laboratory Lab Mobile Phlebotomy [facility] [address] [place] [address] Gmc, Gml Mobile Home Draw [address] [address] [address] 01/04/2024 10:20 AM EDT Office Visit Otolaryngology [facility] [address] [place] [address] Kasi Tejeda PA-C [address] [place] [address] 01/26/2024 11:20 AM EDT Office Visit Family Medicine [address] [place] [phone] Zenobia Lyon MD [address] [place] [address] [place] [address] 03/07/2024 1:00 PM EDT Office Visit Cardiology [address] [place] [address] Chris Choudhury PA-C [address] [place] [address] Scheduled Procedures Name Priority Associated Diagnoses Date/Ti [...] Additional history exists CKD PHOS USE SMARTSET 84950 07/25/202407/03, 09/07/2022, 09/05/2022, Additional history exists O2 ASSESSMENT COMPLETED IN PAST YEAR FOR COPD 09/29/2024 09/29/2023 CKD HGB USE SMARTSET 48528 10/11/202410/11, 10/11/2023, 10/05/2023, Additional history exists COLONOSCOPY-EVERY [...] this encounter Medical Devices Implanted Type Area Tubular Splitting Machine Tender Device Identifier Shelf Expiration Date Model / Serial / Lot Screw T2 Alpha Lock 5x47.5mm - [id number] Implanted:Qty: 1 on 09/06/2022 by Sean Silva MD at [facility] Left: Leg Upper RICHELLE : TRAUMA 06/01/2032 [id number] / / [id number] documented as of this encounter Advance Directives Documents on File Type Date Recorded Patient Orthotist Expl anation POLST 10/17/2022 [place] OR D[place] FOR LIFE-SUSTAINING TREATMENT POLST 09/10/[address] [place] [address] [facility] FOR LIFE-SUSTAINING TREATMENT Latest Code [...] Agen t (per Health Care Power of Master Hearth Technician document) Reji Tello Dotts Adult Child First Alterna te Health Care Agent (per Health Care Power of Master Hearth Technician document) Bowen Tello Adult Child First Alternate Health Care Agent (per Health Care Power of Master Hearth Technician document) Care Teams Hydraulic Riveter Relationship Specialty Start Date End Date Zenobia Lyon MD [address] [place] [address] [place] [address] PCP - General Family Medicine 05/22/23 documented as of this encounter
--- OUTSIDE RECORDS SUMMARY | 2023-10-14 09:08 | External Medical Summary | Summary of Care ---
Author Name Unknown Organization [facility] Address [address] [place] [place] [address] Phone [phone] Care Team Providers Care Repairer Hairspring Name Role Phone Zenobia Lyon MD Primary Care Provide r Reason for Visit * Reason Onset Date Comments [facility]: Acute 10/13/2023 Encounter Details Date Type Department Care Team (Late st Contact Info) Description 10/13/2023 Telephone [facility], [facility] 132 [facility] [place] [address] [facility], Nurse [facility] 132 [place] [address] [facility]: Acute Allergies Active Allergy [...] 75 MG Oral Tablet (pLAVix)Indications: Atherosclerosis of [place] coronary artery of [place] heart without angina pectoris Take 1 Tablet [...] 90 Tablet 0 09/18/2023 Active Saline Nasal [place] 0.65 % Nasal Solution (Saline Mist [place]) Use 2 sprays into Nostril every 1 [...] glenn [employer]. leg ; Rt. shinto 07/0207/18/2002 07/15/2015 Dyslipidemia, goal to be determined [...] MCG/0.3 mL, 12 YRS AND ABOVE, IM ([employer]) 07/19/2023 Covid-19, Mrna, Lnp-s, Pf, B ivalent, [...] Encounter - Ami Black RN - 10/13/2023 2:35 PM EST Danilo to patient's Remedios to see how patient is doing. He is currently sitting at the table. He drank a boost. He is not shaking. Does not feel warm. Advised her to encourage liquids and light food. Monitor his temperature and call if elevated. Awaiting response from DAMEON Hutton. RN [facility] RN [phone] * Telephone Encounter - Ami Black RN [...] Recommendation: Home visit for assessment MIH: N/A [facility] rv mechanic Acute Call Date: 10/13/2023 Time: 1:04 PM Name: Marshall Tello Sr. : 1935 Caller: Remedios Relationship to Chief Complaint Patient presents with [facility] [...] scheduled for same day: Unsure *Routing to [facility] for advice per RNCM Reached out to RNCM and she said she knows patient well and issending this to [facility] Treatment plan until appointment: PCs scheduled Routing to care team to review and make recommendations if warranted. Call back instructions provided to patient. Ami Black. RN [facility] rv mechanic [phone] documented in this encounter Plan of Treatment Upcoming Encounters Date Type Department Care Team (Late st Contact Info) Description 10/14/2023 1:00 PM EST Scheduled Telephone [facility], [facility] [address] [place] [address] [facility], [facility] [address] [place] [address] 10/15/2023 12:00 PM EST Scheduled Telephone [facility], [facility] [address] [place] [address] [facility], Nurse [place] [address] [place] [address] 10/18/2023 9:10 AM EST Laboratory Lab Mobile Phlebotomy [facility] [address] [place] [address] Gmc, Gml Mobile Home Draw [address] [place] [address] 10/18/2023 9:20 AM EST Laboratory Lab Mobile Phlebotomy [facility] [address] [place] [address] Gmc, Gml Mobile Home Draw [address] [place] [address] 10/19/2023 11:20 AM EST Office Visit Family Medicine [address] [place] [phone] Zenobia Lyon [address] [place] [address] 10/25/2023 9:20 AM EST Laboratory Lab Mobile Phlebotomy [facility] [address] [place] [address] [facility], Gml Mobile Home Draw [address] [place] [address] 10/26/2023 11:00 AM EST Cardiac Studies Cardiology [address] [place] [address] Lobito Croft [address] [address] 11/01/2023 9:10 AM EST Laboratory Lab Mobile Phlebotomy [facility] [address] [place] [address] Gmc, Gml Mobile Home Draw [address] [place] [address] 11/01/2023 9:20 AM EST Laboratory Lab Mobile Phlebotomy [facility] [address] [place] [address] Gmc, Gml Mobile Home Draw [address] [place] [address] 11/03/2023 10:45 AM EST Office Visit Hematology/Oncology [facility] 200 [facility] [place] [address] Pietro Sykes MD 200 [facility] [place] [address] 11/08/2023 9:20 AM EST Laboratory Lab Mobile Phlebotomy [facility] [address] [place] [address] [facility], Gml Mobile Home Draw [address] [place] [address] 11/13/2023 10:00 AM EST Home Visit [facility] [address] [place] [address] Lila Brownlee, SANKET [address] [place] [address] 11/15/2023 9:10 AM EST Laboratory Lab Mobile Phlebotomy [facility] [address] [place] [address] [facility], Gml Mobile Home Draw [address] [place] [address] 11/15/2023 9:20 AM EST Laboratory Lab Mobile Phlebotomy [facility] [address] [place] [address] [facility], Gml Mobile Home Draw [address] [place] [address] 11/29/2023 9:10 AM EST Laboratory Lab Mobile Phlebotomy [facility] [address] [place] [address] c, Gml Mobile Home Draw [address] [place] [address] 12/13/2023 9:10 AM EDT Laboratory Lab Mobile Phlebotomy [facility] [address] [place] [address] [facility], [facility] Mobile Home Draw [address] [place] [address] 01/04/2024 10:20 AM EDT Office Visit Otolaryngology [facility] [address] [place] [address] Kasi Tejeda PA-C [address] [place] [address] 01/26/2024 11:20 AM EDT Office Visit Family Medicine [address] [place] [phone] Zenobia Lyon MD [address] [place] [address] [place] [address] 03/07/2024 1:00 PM EDT Office Visit Cardiology [address] [place] [address] Chris Choudhury PA-C [address] [place] [address] Scheduled Procedures Name Priority Associated Diagnoses Date/Ti [...] Additional history exists CKD PHOS USE SMARTSET 01553 07/25/202407/03, 09/07/2022, 09/05/2022, Additional history exists O2 ASSESSMENT COMPLETED IN PAST YEAR FOR COPD 09/29/2024 09/29/2023 CKD HGB USE SMARTSET 41832 10/11/202410/11, 10/11/2023, 10/05/2023, Additional history exists COLONOSCOPY-EVERY [...] this encounter Medical Devices Implanted Type Area Machine Cage Maker Device Identifier Shelf Expiration Date Model / Serial / Lot Screw T2 Alpha Lock 5x47.5mm - [id number] Implanted:Qty: 1 on 09/06/2022 by Sean Silva MD [place] [facility] Left: Leg Upper RICHELLE : TRAUMA 06/01/2032 [id number] / / [id number] documented as of this encounter Advance Directives Documents on File Type Date Recorded Patient Lens Polisher Hand Expl anation POLST 10/17/2022 [place] DERS [...] Agen t (per Health Care Power of Racker Octave Board document) Reji Tello Dotts Adult Child First Alterna te Health Care Agent (per Health Care Power of Racker Octave Board document) Bowen Tello Adult Child First Alternate Health Care Agent (per Health Care Power of Racker Octave Board document) Care Teams Repairer Hairspring Relationship Specialty Start Date End Date Zenobia Lyon MD [address] [place] [address] [place] [address] PCP - General Family Medicine 05/22/23 documented as of this encounter
--- OUTSIDE RECORDS SUMMARY | 2023-10-14 09:08 | External Medical Summary | Summary of Care ---
Author Name Unknown Organization [facility] Address [address] [place] [address] Phone [phone] Care Team Providers Care Washroom Operator Name Role Phone Zenobia Lyon MD Primary Care Provide r Reason for Visit * Reason Onset Date Comments Test Results 10/11/2023 Encounter Details Date Type Department Care Team (Late st Contact Info) Description 10/11/2023 Telephone Hematology/Oncology Treatment, [place] [address] [place] [address] Pietro Sykes MD [address] [place] [address] Test Results Allergies Active Allergy Reactions Criticality Noted Date Comments James Inhibitors 09/10/2002 cough on prinivil Hydrocodone 09/05/2022 Family states AMS change when taken Prednisone 05/26/2011 Blisters in throat Sulfa Antibiotics 03/19/2001 dysurea documented as of this encounter (statuses as of 10/12/2023) Medications Medication Sig Dispensed Refills Start Date [...] 75 MG Oral Tablet (pLAVix)Indications: Atherosclerosis of [place] coronary artery of [place] heart without angina pectoris Take 1 Tablet [...] 90 Tablet 0 09/18/2023 Active Saline Nasal [place] 0.65 % Nasal Solution (Saline Mist [place]) Use 2 sprays into Nostril every 1 hour as needed for dry nasal passages 44 mL 0 09/27/2023 Active documented as of this encounter (statuses as of 10/12/2023) Active Problems Patient Care Coordination No te [...] CORONARY ATHEROSCLEROSIS OF UNSPECIFIED TYPE OF VESSEL, [place] OR GRAFT Last Assessment & Plan: Stable. 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 documented as of this encounter (statuses as of 10/12/2023) Resolved Problems Problem Noted Date Diagnosed Date [...] without hematuria 05/30/2022 01/24/2023 Overview: Xavier to [facility] 04/20-04/29 urosepsis multi drug [...] as of this encounter (statuses as of 10/12/2023) Immunizations Name Administration Dates Next Due COVID-19 mRNA, LNP-s, No Pre serve, 2-Dose Series (Moderna) 08/24/2021,12/07/2020,11/09/2020 COVID-19, MRNA-LNP, 23-24, P F, 30 MCG/0.3 mL, 12 YRS AND ABOVE, IM ([facility]) 07/19/2023 Covid-19, Mrna, Lnp-s, Pf, [...] Miscellaneous Notes * Telephone Encounter - Kami Li OSA - 10/12/2023 9:29 AM EST Called patients Remedios and patient is scheduled to see on 11/03/23 @ 10:45am. * Telephone Encounter - Tiny Chase RN [...] Patient to receive 1 unit PRBC. Called [facility] blood bank (Luisa). They will be able to have blood for patient. Called [facility] (Lesly) and central scheduling (Chelsi). Patient [...] AM EST Laboratory Lab Mobile Phlebotomy [facility] [address] [place] [address] [facility], l Mobile Home Draw [address] [place] [address] 10/18/2023 9:20 AM EST Laboratory Lab Mobile Phlebotomy [facility] [address] [place] [address] [facility], Gml Mobile Home Draw [address] [place] [address] 10/19/2023 11:20 AM EST Office Visit Family [address] [phone] Zenobia Lyon MD [address] [place] [address] [place] [address] 10/25/2023 9:20 AM EST Laboratory Lab Mobile Phlebotomy [facility] [address] [place] [address] [facility], Gml Mobile Home Draw [address] [place] [address] 10/26/2023 11:00 AM EST Cardiac Studies Cardiology [address] [place] [address] Lobito Croft [facility] 132 [facility] [place] [address] 11/01/2023 9:10 AM EST Laboratory Lab Mobile Phlebotomy [facility] [address] [place] [address] [facility], Gm Mobile Home Draw [address] [place] [address] 11/01/2023 9:20 AM EST Laboratory Lab Mobile Phlebotomy [facility] [address] [place] [address] [facility], Gm Mobile Home Draw [address] [place] [address] 11/03/2023 10:45 AM EST Office Visit Hematology/Oncology [facility] 200 [facility] [place] [address] Pietro Sykes MD 200 [facility] [place] [address] 11/08/2023 9:20 AM EST Laboratory Lab Mobile Phlebotomy [facility] [address] [place] [address] [facility], [facility] Mobile Home Draw [address] [place] [address] 11/13/2023 10:00 AM EST [facility] Visit [facility] [place], [facility] 132 [facility] [place] [address] Lila Brownlee, SANKET 132 [facility] [place] [address] 11/15/2023 9:10 AM EST Laboratory Lab Mobile Phlebotomy [facility] [address] [place] [address] [facility], Gml Mobile Home Draw [address] [place] [address] 11/15/2023 9:20 AM EST Laboratory Lab Mobile Phlebotomy [facility] [address] [place] [address] [facility], Gm Mobile Home Draw [address] [place] [address] 11/29/2023 9:10 AM EST Laboratory Lab Mobile Phlebotomy [facility] [address] [place] [address] Gm, Gm Mobile Home Draw [address] [place] [address] 12/13/2023 9:10 AM EDT Laboratory Lab Mobile Phlebotomy [facility] [address] [place] [address] [facility], [facility] Mobile Home Draw [address] [place] [address] 01/04/2024 10:20 AM EDT Office Visit Otolaryngology [facility] [address] [place] [address] Kasi Tejeda PA-C [address] [place] [address] 01/26/2024 11:20 AM EDT Office Visit Family Medicine [address] [place] [phone] Zenobia Lyon MD [address] [place] [address] [place] [address] 03/07/2024 1:00 PM EDT Office Visit Cardiology [address] [place] [address] Chris Choudhury PA-C [address] [place] [address] Scheduled Procedures Name Priority Associated Diagnoses Date/Ti [...] Additional history exists CKD PHOS USE SMARTSET 16704 07/25/202407/03, 09/07/2022, 09/05/2022, Additional history exists O2 ASSESSMENT COMPLETED IN PAST YEAR FOR COPD 09/29/2024 09/29/2023 CKD HGB USE SMARTSET 83712 10/11/202410/11, 10/11/2023, 10/05/2023, Additional history exists COLONOSCOPY-EVERY [...] this encounter Medical Devices Implanted Type Area Autism Motor Specialist Device Identifier Shelf Expiration Date Model / Serial / Lot Screw T2 Alpha Lock 5x47.5mm - [id number] Implanted:Qty: 1 on 09/06/2022 by Sean Silva MD at [facility] Left: Leg Upper RICHELLE : TRAUMA 06/01/2032 [id number] / / [id number] documented as of this encounter Advance Directives Documents on File Type Date Recorded 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
--- OUTSIDE RECORDS SUMMARY | 2023-10-14 09:08 | External Medical Summary | Summary of Care ---
Author Name Unknown Organization [facility] Address [address] [place] [address] Phone [phone] Care Team Providers Care Director Channel Name Role Phone Zenobia Lyon MD Primary Care Provide r Reason for Visit * Reason Onset Date Comments Emergency Department Follow-Up 10/09/2023 N o appts avail, discharge from [facility] on 10/06/23 nose bleeds, 2 pints blood given Encounter Details Date Type Department Care Team (Late st Contact Info) Description 10/09/2023 Telephone Family [address] [place] [phone] Zenobia Lyon MD [address] [place] [address] [place] [address] Emergency Department Follow-Up (No appts a... Allergies Active Allergy Reactions Criticality Noted Date Comments James Inhibitors 09/10/2002 cough on prinivil Hydrocodone 09/05/2022 Family states AMS change when taken Prednisone 05/26/2011 Blisters in throat Sulfa Antibiotics 03/19/2001 dysurea documented as of this encounter (statuses as of 10/10/2023) Medications Medication Sig Dispensed Refills Start Date End Date Status OXYGENIndications:Hy poxia,Acute systolic CHF (congestive heart failure) ([facility]) 2L/min via nasal cannula 24 hours continous, [...] Take by mouth daily . 0 Active CabbyGoTouch Ultra Blue In Vitro Strip (Glucose Blood)Indications:Ty pe 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 ([facility]) Use to test blood sugar as needed 100 Strip 3 05/20/2022 Active CabbyGoTouch UltraSoft LancetsIndications:T ype 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 ([facility]) Use to test blood sugar as needed [...] 75 MG Oral Tablet (pLAVix)Indications: Atherosclerosis of [place] coronary artery of [place] heart without angina pectoris Take 1 Tablet [...] 90 Tablet 0 09/18/2023 Active Saline Nasal [place] 0.65 % Nasal Solution (Saline Mist [place]) Use 2 sprays into Nostril every 1 hour as needed for dry nasal passages 44 mL 0 09/27/2023 Active documented as of this encounter (statuses as of 10/10/2023) Active Problems Patient Care Coordination No te [...] CORONARY ATHEROSCLEROSIS OF UNSPECIFIED TYPE OF VESSEL, [place] OR GRAFT Last Assessment & Plan: Stable. 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 documented as of this encounter (statuses as of 10/10/2023) Resolved Problems Problem Noted Date Diagnosed Date [...] without hematuria 05/30/2022 01/24/2023 Overview: [facility] to [facility] [...] glenn ek & Lt. leg ; Rt. orthodoxy 07/0207/18/2002 07/15/2015 Dyslipidemia, goal to be determined [...] as of this encounter (statuses as of 10/10/2023) Immunizations Name Administration Dates Next Due COVID-19 [...] encounter Miscellaneous Notes * Telephone Encounter - Quiana Trejo RN - 10/10/2023 10:41 AM EST Pt has an appt on 10/19/23 * Telephone Encounter - Quiana Trejo RN - 10/10/2023 10:41 AM EST ER/HOSPITAL FOLLOW-UP Yes Follow-up for: ER Visit Date of Discharge: 10/06/23 Facility treated at: [facility] Reason for Visit: nose bleeds, 2 units blood given Additional Comment(s) Additional Comments: Pt's daughter calling for ED follow up appt. * Telephone Encounter - Elissa Caal OSA - 10/09/2023 11:42 AM EST No Appointments Available Patient declined appointments?: No What Visit Type is needed? ED Follow-up If Acute Visit Type is needed, were surrounding clinics offered to patient (Yes/No)? N/A Was patient offered appointments with other available providers (Yes/No)? N/A See Call Details? (Yes or No): Yes, no appt options avail at clinic, pls call pt's daughter Reji to assist further with scheduling, pt's older and has more trouble hearing. documented in this encounter Plan of Treatment Upcoming Encounters Date Type Department Care Team (Late st Contact Info) Description 10/11/2023 9:20 AM EST Laboratory Lab Mobile Phle[facility] [address] [place] [address] [facility] Draw [address] [place] [address] 10/18/2023 9:10 AM EST Laboratory [facility] [address] [place] [address] [facility] Home Draw [address] [place] [address] 10/18/2023 9:20 AM EST Laboratory [facility] [address] [place] [address] [facility] Draw [address] [place] [address] 10/19/2023 11:20 AM EST Office [address] Medicine [address] [phone] Zenobia Lyon MD [address] [place] [address] [place] [address] 10/25/2023 9:20 AM EST Laboratory [facility] [address] [place] [address] [facility] Draw [address] [place] [address] 10/26/2023 11:00 AM EST Cardiac Studies Cardiology [address] [place] [address] [facility], Pacer [facility] [address] [place] [address] 11/01/2023 9:10 AM EST Laboratory Lab Mobile Ph[facility]botomy [facility] [address], [place] [id number] [facility] Mobile Home Draw [address] [place] [address] 11/01/2023 9:20 AM EST Laboratory Lab Mobile Phlebotomy [facility] [address] [place] [address] [facility] Draw [address] [place] [address] 11/08/2023 9:20 AM EST Laboratory Lab Mobile Phlebotomy [facility] [address] [place] [address] [facility] Mobile Home Draw [address] [place] [address] 11/13/2023 10:00 AM EST Home Visit ising at [facility] [address] [place] [address] Lila Brownlee, SANKET [address] [place] [address] 11/15/2023 9:10 AM EST Laboratory Lab Mobile Phlebotomy [facility] [address] [place] [address] [facility], l Mobile Home Draw [address] [place] [address] 11/15/2023 9:20 AM EST Laboratory Lab Mobile Phlebotomy [facility] [address] [place] [address] [facility] Mobile Home Draw [address] [place] [address] 11/29/2023 9:10 AM EST Laboratory Lab Mobile Phlebotomy [facility] [address] [place] [address] [facility] Gm Mobile Home Draw [address] [place] [address] 12/13/2023 9:10 AM EDT Laboratory Lab Mobile Phlebotomy [facility] [address] [place] [address] [facility], [facility] Mobile Home Draw [address] [place] [address] 01/04/2024 10:20 AM EDT Office Visit Otolaryngology [facility] [address] [place] [address] Kasi Tejeda PA-C [address] [place] [address] 01/26/2024 11:20 AM EDT Office Visit Family Medicine [address] [place] [phone] Zenobia Lyon MD [address] [place] [address] [place] [address] 03/07/2024 1:00 PM EDT Office Visit Cardiology [address] [place] [address] Chris Choudhury PA-C [address] [place] [address] Scheduled Procedures Name Priority Associated Diagnoses Date/Ti [...] Additional history exists CKD PHOS USE SMARTSET 14099 07/25/202407/03, 09/07/2022, 09/05/2022, Additional history exists O2 ASSESSMENT COMPLETED IN PAST YEAR FOR COPD 09/29/2024 09/29/2023 CKD HGB USE SMARTSET 18338 10/05/202410/05, 10/05/2023, 09/20/2023, Additional history exists COLONOSCOPY-EVERY 5 YRS AGES [...] this encounter Medical Devices Implanted Type Area Stained Glass Joiner Device Identifier Shelf Expiration Date Model / Serial / Lot Screw T2 Alpha Lock 5x47.5mm - [id number] Implanted:Qty: 1 on 09/06/2022 by Sean Silva MD at [facility] Left: Leg Upper RICHELLE : TRAUMA 06/01/2032 [id number] / / [id number] documented as of this encounter Advance Directives Documents on File Type Date Recorded 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
--- OUTSIDE RECORDS SUMMARY | 2023-10-14 09:08 | External Medical Summary ---
Author Name Unknown Address Unknown Organization K01:LABORATORY [facility] - [address] [place] [address] Laboratory Report Ordering Provider Test Date Status ARIADNE HUSTON 10/11/2023 08:59:00 Final Observation Date Value Abnormality Reference (Units ) Status ABO 10/11/2023 08:59:00 A Final RH 10/11/2023 08:59:00 Positive Final RED BLOOD CELL ANTIBODY SCREEN 10/11/2023 08:59:00 Negative Final SPECIMEN EXPIRATION DATE 10/11/2023 08:59:00 10/14/2023 23:59 Final Performing Location LABORATORY [facility] - [address] [place] [address]
--- OUTSIDE RECORDS SUMMARY | 2023-10-14 09:08 | External Medical Summary | Summary of Care ---
Author Name Unknown Organization [facility] Address [address] [place] [address] Phone [phone] Care Team Providers Care Eligibility Services Representative Name Role Phone Zenobia Lyon MD Primary Care Provide r Encounter Details Date Type Department Care Team (Late st Contact Info) Description 10/10/2023 Result Scan Unspecified Department Hao Sanford MD [address] [place] [address] <No scans attached> Allergies Active Allergy Reactions Criticality Noted Date [...] 75 MG Oral Tablet (pLAVix)Indications: Atherosclerosis of [place] coronary artery of [place] heart without angina pectoris Take 1 [...] 90 Tablet 0 09/18/2023 Active Saline Nasal [place] 0.65 % Nasal Solution (Saline Mist [place]) Use 2 sprays into Nostril every 1 [...] control in clinical research program 03/25/2015 Overview: [employer] Product Surveillance Registry PI: Kylah Lilly IV, [...] & Plan: BP at goal -Continue cozaleonard norvasjacqueline Asthma, moderate persistent 07/12/2011 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 erectile dysfunction 08/19/2008 BPH without obstruction/lower urinary tract symp toms 04/24/2006 Last Assessment & Plan: Urinating without difficulty -Continue Dutesteride Elevated prostate specific antigen (PSA) 004 CORONARY ATHEROSCLEROSIS OF UNSPECIFIED TYPE OF VESSEL, [place]AC[place] OR GRAFT Last Assessment & Plan: [...] without hematuria 05/30/2022 01/24/2023 Overview: [facility] to [facility] [...] MCG/0.3 mL, 12 YRS AND ABOVE, IM (QReca!-Comirnaty) 07/19/2023 Covid-19, Mrna, Lnp-s, Pf, B ivalent, [...] 9:20 AM EST Laboratory Lab [facility] [address] [place] [address] [facility] Mobile Home Draw [address] [place] [address] 10/18/2023 9:10 AM EST Laboratory Lab Mobile [facility] [address] [place] [address] [facility] Draw [address] [place] [address] 10/18/2023 9:20 AM EST Laboratory Lab Mobile [facility] [address] [place] [address] [facility] Mobile Home Draw [address] [place] [address] 10/19/2023 11:20 AM EST Office Visit Family Medicine [address] [place] [phone] Zenobia Lyon MD [address] [place] [address] [place] [address] 10/25/2023 9:20 AM EST Laboratory Lab Mobile [facility] [address] [place] [address] [facility] Draw [address] [place] [address] 10/26/2023 11:00 AM EST Cardiac Studies Cardiology [address] [place] [address] [facility] [address] [place] [address] 11/01/2023 9:10 AM EST Laboratory Lab Mobile Phlebot[facility] [address] [place] [address] [facility] Mobile Home Draw [address] [place] [address] 11/01/2023 9:20 AM EST Laboratory Lab Mobile Phlebot[facility] [address] [place] [address] [facility] Home Draw [address] [place] [address] 11/08/2023 9:20 AM EST Laboratory Lab Mobile Phlebotomy [facility] [address] [place] [address] [facility] Mobile Home Draw [address] [place] [address] 11/13/2023 10:00 AM EST [facility] [address] [place] [address] Lila Brownlee, SANKET [address] [place] [address] 11/15/2023 9:10 AM EST Laboratory Lab Mobile Phlebotomy [facility] [address] [place] [address] Gmc, [facility] Mobile Home Draw [address] [place] [address] 11/15/2023 9:20 AM EST Laboratory Lab Mobile Phlebotomy [facility] [address] [place] [address] [facility]mc, [facility] Mobile Home Draw [address] [place] [address] 11/29/2023 9:10 AM EST Laboratory Lab Mobile Phlebotomy [facility] [address] [place] [address] Gmc, [facility] Mobile Home Draw [address] [place] [address] 12/13/2023 9:10 AM EDT Laboratory Lab Mobile Phlebotomy [facility] [address] [place] [address] Gm, Gml Mobile Home Draw [address] [place] [address] 01/04/2024 10:20 AM EDT Office Visit Otolaryngology [facility] [address] [place] [address] Kasi Tejeda PA-C [address] [place] [address] 01/26/2024 11:20 AM EDT Office Visit Family Medicine [address] [place] [phone] Zenobia Lyon MD [address] [place] [address] [place] [address] 03/07/2024 1:00 PM EDT Office Visit Cardiology [address] [place] [address] Chris Choudhury PADereckC [address] [place] [address] Scheduled Procedures Name Priority Associated Diagnoses Date/Ti [...] Additional history exists CKD PHOS USE SMARTSET 01268 07/25/202407/03, 09/07/2022, 09/05/2022, Additional history exists O2 ASSESSMENT COMPLETED IN PAST YEAR FOR COPD 09/29/2024 09/29/2023 CKD HGB USE SMARTSET 34354 10/05/202410/05, 10/05/2023, 09/20/2023, Additional history exists COLONOSCOPY-EVERY [...] encounter Medical Devices Implanted Type Area It Service Continuity Supervisor Device Identifier Shelf Expiration Date Model / Serial / Lot Screw T2 Alpha Lock 5x47.5mm - [id number] Implanted:Qty: 1 on 09/06/2022 by Sean Silva MD at [facility] Left: Leg Upper RICHELLE : TRAUMA 06/01/2032 [id number] / / [id number] documented as of this encounter Procedures Procedure Name Priority Date/Time Associated Diagnosis Comments CARDIOLOGY SCANNED RESULT 10/10/2023 documented in this encounter Results * CARDIOLOGY SCANNED RESULT (10/10/2023) 10/10/2023 Hao Sanford MD OTHER documented in this encounter Advance Directives Documents on File Type Date Recorded 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 POLST 10/17/2022 [place] OR DERS [...] Name Relationship Healthcare Agent Relationship Communication Remedios omre Spouse Health Care Agen t (per Health Care Power of Domestic Freight Forwarder document) Reji Palaciosmel Dotts Adult Child First Alterna te Health Care Agent (per Health Care Power of Domestic Freight Forwarder document) Bowen Omer Adult Child First Alternate Health Care Agent (per Health Care Power of Domestic Freight Forwarder document) Care Teams Eligibility Services Representative Relationship Specialty Start Date End Date Zenobia Lyon MD [address] [place] [address] [place] [phone] PCP - General Family Medicine 05/22/23 documented as of this encounter
--- OUTSIDE RECORDS SUMMARY | 2023-10-14 09:09 | External Medical Summary | Summary of Care ---
Author Name Unknown Organization [facility] Address [address] [place] [address] Phone [phone] Care Team Providers Care Surgical Instrument Maker Name Role Phone Zenobia Lyon MD Primary Care Provide r Reason for Visit * Reason Comments Follow Up Nose Bleed Encounter Details Date Type Department Care Team (Late st Contact Info) Description 10/05/2023 10:20 AM EST Office Visit Otolaryngology [facility] [address] [facility] [place] [address] Kasi Tejeda PA-C [address] [facility] [place] [address] Epistaxis, recurrent*; Other infective acute otitis externa of both ears Allergies Active Allergy Reactions Criticality Noted Date Comments James Inhibitors 09/10/2002 cough on prinivil Hydrocodone 09/05/2022 Family states AMS change when taken Prednisone 05/26/2011 Blisters in throat Sulfa Antibiotics 03/19/2001 dysurea documented as of this encounter (statuses as of 10/06/2023) Medications Medication Sig Dispensed Refills Start Date [...] Take by mouth daily . 0 Active AdaptivityTouch Ultra Blue In Vitro Strip (Glucose Blood)Indications:Ty [...] artery of washoe heart without angina pectoris Take 1 Tablet [...] 90 Tablet 0 09/18/2023 Active Saline Nasal Mcintire 0.65 % Nasal Solution (Saline Mist Mcintire) Use 2 sprays into Nostril every 1 hour as needed for dry nasal passages 44 mL 0 09/27/2023 Active documented as of this encounter (statuses as of 10/06/2023) Active Problems Patient Care Coordination No te [...] CORONARY ATHEROSCLEROSIS OF UNSPECIFIED TYPE OF VESSEL, GUIDIVILLE OR GRAFT Last Assessment & Plan: Stable. 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 documented as of this encounter (statuses as of 10/06/2023) Resolved Problems Problem Noted Date Diagnosed Date [...] 01/24/2023 Overview: [facility] [...] as of this encounter (statuses as of 10/06/2023) Immunizations Name Administration Dates Next Due COVID-19 [...] Pressure - - Pulse - - Temperature 36.4 C (97.5 F) 10/05/2023 10:[address] Respiratory Rate - - Oxygen Saturation - - Inhaled Oxygen Concentration - - Weight 88.9 kg (196 lb) 10/05/2023 10:18 AM EST Height 180.3 cm (5' 10.98") 10/05/2023 10:18 AM EST Body Mass Index 27.35 10/05/2023 10:18 AM EST documented in this encounter Functional [...] this encounter Patient Instructions * Patient Instructions* Kasi Tejeda PA-C - 10/05/2023 10:58 AM EST Education of epistaxis prevention was provided, which includes: 1. Sterling spray or saline mist spray four times daily and as needed to keep nasal mucosa moist 2. Avoid nasal cannula for supplemental oxygen if required, can use face tent or face mask instead. 3. Use of a humidifier in the bedroom 4. Vaseline in bilateral nasal vestibules twice daily If patient has an episode of epistaxis: 1. Can use over the counter Oxymetazoline spray (Afrin) in both nostrils 2. Hold firm pressure over the soft portion of the nose, as demonstrated in clinic for 20 minutes. NO PEEKING. 3. Lean forward so blood is not swallowed or aspirated 4. If still bleeding after 20 minutes can repeat steps 1-3 one more time 5. If still bleeding proceed to nearest Emergency department or Urgent care documented in this encounter Progress Notes * Kasi Tejeda PA-C - 10/05/2023 10:20 AM EST 10/05/23 HISTORY OF PRESENT ILLNESS This 88 year old year old male is seen today in follow up of cerumen and possible otitis externa. Also new problem they would like to discuss today: epistaxis. He is here today with his daughter, Reji, and son, Bowen. Ears: Pt completed use of the ear drops. He reports he is doing well from ear standpoint. Denies: otalgia, otorrhea, decreased hearing, aural pressure. Epistaxis: Started 09/24/23 and was discharged 09/27/23, during hospitalization had blood transfusions due to anemia. He has hx of multiple myeloma. He bled again on 09/30/23 and went back to the ER, dischargedhome same day. They report he had cautery 09/30/23 in the ER. Yesterday, 10/04/23, started bleeding at 6am and called the ambulance and took him to the ER. At the ER they packed nose yesterday and he was discharged home. Daughter reports he will not stop messing with his nose and family believes he is picking at nose and that is setting off the bleeds. Pt reportedly self removed packing at home yesterday after getting home from the ER. Pt feels it is the right side of his nose that is the source of the bleed. He has not had Plavix since 09/24/23. No hx of frequent nosebleeds prior to this. At home they have afrin spray and a nasal clamp to use when he gets a bleed. Nursing Notes: Kely Hylton LPN 10/05/23 1019 Signed Pt presents today with his daughter due to having recurring nosebleeds as well as having his ear cleaned. Pt does have packing in his nostrils Marshall Tello . is a 88 year old male who present for nose bleeds. Patient reports Last nose bleed: 10/04/2023 Lasting: Unknown How often: 3 in the last 2 weeks Which nostril: Unknown Current treatment: Packing Hx of cauterization: Yes 09/30/23 On Asprin/Anitcoagulant: Yes Last dose: On hold right now due to nosebleeds ER Visit: Yes Hx of blood transfusion due to nose bleed: Yes Bleeding Disorders: Yes, Multiple Myeloma Patient has no history of ear surgery. Denies any vertigo. 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 Longstanding persistent atrial fibrillation ([facility]) I48.11 Ischemic cardiomyopathy I25.5 Aortic valve insufficiency I35.1 Automatic implantable cardioverter-defibrillator in situ Z95.810 Encounter for examination for normal comparison and control in clinical research program Z00.6 Gastroesophageal reflux disease with esophagitis K21.00 Type 2 diabetes mellitus with diabetic nephropathy, without long-term current use of insulin ([facility]) E11.21 Sensorineural hearing loss (SNHL) [...] 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[facility]) G30.1, F02.80 Multiple myeloma ([facility]) C90.00 Infrarenal abdominal aortic aneurysm (AAA) without rupture ([facility]) 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 ([facility]) I50.42 Protein-calorie malnutrition ([facility]) E46 Hemorrhagic disorder due to extrinsic circulating anticoagulants ([facility]) D68.32 Past Medical History: Diagnosis Date Acute posthemorrhagic anemia 06/26/2018 Asthma with acute exacerbation 11/18/2017 [facility] Asthma, moderate persistent Benign hypertension with CKD (chronic kidney disease), stage II Cardiac pacemaker in situ 02/17/10 CKD (chronic kidney disease), stage II 02/01/16 CKD (chronic kidney disease), stage III (HCC) 01/30/15 GFR 57.9 Closed fracture of dorsal (thoracic) vertebra without mention of spinal cord injury T12 Compression fx, thoracic spine ([facility]) T12 Coronary atherosclerosis of washoe coronary artery DM type 2, goal A1c [...] aneurysm (HCC) 11/19/2014 Iliac artery aneurysm, left (HCC) 08/27/[address] Impending pathological [...] Lt. cheek & Lt. leg ; Rt. presybeterian 07/02 Sensorineural hearing loss (SNHL) of both ears Sinoatrial node dysfunction (HCC) tachy-lorna syndrome Type 2 DM with CKD stage 2 and hypertension Upper GI bleed 08/06/2021 Past Surgical History: Procedure Laterality Date BONE BIOPSY, TROCAR/NEEDLE, DEEP Left 09/06/2022 BIOPSY BONE TROCAR OR NEEDLE DEEP performed by Sean Silva MD at [place] [facility] BONE MARROW ASPIRATION Left 09/06/2022 BONE MARROW ASPIRATION performed by Sean Silva MD at [place] [facility] CABG, ARTERIAL, THREE 07/31/2000 Triple [...] and MR EGD, FLEXIBLE, DIAGNOSTIC N/A 07/27/2021 [facility], EGD, Med HH, gastritis, non-obstructing gastric ulcer, duodenal Ulcer /biopsies taken from stomach did show mild gastritis without any worrisome features / 3 month follow up EGD, FLEXIBLE, DIAGNOSTIC N/A 10/29/2021 [facility], EGD, Normal scope, Mucosal nodule found in esophagus /biopsies from the end of the esophagus showed inflammatory changes without any worrisome features / EGD, FLEXIBLE, DIAGNOSTIC 10/29/2021 normal bx / [facility] HOLTER COMPLETE (COMM PRAC) 08/06/2009 NSR with 1st degree heart block, rare ectopy, no pauses >2.5 sec INSERT PACING ELECTRODE, EXISTING PACER Left 03/16/2015 BIVENTRICULAR UPGRADE TO EXISITING DEVICE performed by Gallito Mojica MD at [facility] MISCELLANEOUS ORDER ([facility] ONLY) 02/17/2010 Dual chamber pacer insertion Medtronic 02/17/10 Dr. Gomez, [facility] MOBILE DXA 01/22/2016 Lumbar T +0.6, Femur T -0.6 repeat 4 years. Fosamax may be stopped OTHER 07/07/2009 Fracture vertebrae OTHER 1989? Nose/polyps [place] x three years in a row and also deviated septum OTHER 08/2009 Cataract bilateral on separate occasions (three weeks in between) REINFORCEMENT OF THIGH Left 09/06/2022 PROPHYLACTIC TREATMENT FEMUR performed by Sean Silva MD at [place] [facility] Medications Current Outpatient Medications Medication [...] 1 Tablet by mouth in the morning. (Patient taking differently: Take 1 Tablet by mouth in the morning. ON HOLD UNTIL 09/30.) 90 Tablet 3 Metoprolol Succinate ER 50 [...] mouth in the morning. 126 Tablet 2 glipiZIDE ER 5 MG Oral Tablet Extended Release 24 Hour (glipiZIDE XL) Take 1 Tablet by mouth in themorning. 30 minutes before a meal.. 90 Tablet 0 Saline Nasal Mcintire 0.65 % Nasal Solution (Saline Mist Mcintire) Use 2 sprays into Nostril every 1 houras needed for dry nasal passages 44 mL 0 No current facility-administered medications for [...] PMH and Problem List). Physical Examination: Temp 36.4 C (97.5 F) (Tympanic) | Ht 1.803 m (5' 10.98") | Wt 88.9 kg (196 lb) | BMI 27.35 kg/m | BSA 2.11 m General: This is a chronically ill appearing male who appears his stated age. The patient is alert and appropriately verbally conversant without hoarseness. Face: The face was inspected and no cutaneous masses or lesions were visualized. There was no erythema or edema noted. Facial movement was symmetric without weakness. Neck: Visualization and palpation of the neck revealed no mass lesions, no thyromegaly or thyroid masses. No skin lesions or inflammatory processes were detected. The cervical musculature was normal to palpation. Lymphatics (cervical): There were no palpable lymph nodes in the posterior triangle, submandibular triangle, jugulodigastric region, or central neck. IN ORDER TO BETTER EXAMINE THE EARS, THE PATIENT WAS EXAMINED USING THE OPERATING MICROSCOPE. FINDINGS ARE NOTED BELOW. Ears: Examination of the ears revealed that the auricles were normally formed with no lesions. The right external auditory canal was WNL. The right TM was WNL. The right middle ear space was WNL. The left external auditory canal was WNL. The left TM was WNL. The left middle ear space was WNL Procedure: In order to assess the paranasal sinuses, endoscopy of the nose and paranasal sinuses was performed. The scope was used to examine each side of the nose. There were no masses visualized. The nasal mucosa was without lesion. The middle meatus on each side was clear of mass, polyp, or mucopus. The septum was non- obstructing. There was significant dryness of septum b/l, especially on the right with a few prominent vessels. No active bleeding, no hematoma or other abnormalities.The nasopharynx was without lesion. The patient tolerated the procedure well. I performed the procedure. ASSESSMENT/PLAN: Epistaxis, recurrent (Primary) Other infective acute otitis externa of both ears Reviewed in detail prevention of epistaxis as seen below in patient instructions. Given patient's comorbidities low threshold for ER evaluation if they cannot get bleeds to stop should it recur. If epistaxis persists despite below preventative measures, recommend return visit with Dr. Triplett further discuss. Ears are healthy appearing today- can return for routine cerumen removal every 4-6 months. F/U sooner PRN. Pt and family verbalized understanding and agree with plan. Questions/Concerns addressed. Patient Goals for plan of care discussed in detail. Patient Instructions Education of epistaxis prevention was provided, which includes: 1. Sterling spray or saline mist spray four times daily and as needed to keep nasal mucosa moist 2. Avoid nasal cannula for supplemental oxygen if required, can use face tent or face mask instead. 3. Use of a humidifier in the bedroom 4. Vaseline in bilateral nasal vestibules twice daily If patient has an episode of epistaxis: 1. Can use over the counter Oxymetazoline spray (Afrin) in both nostrils 2. Hold firm pressure over the soft portion of the nose, as demonstrated in clinic for 20 minutes. NO PEEKING. 3. Lean forward so blood is not swallowed or aspirated 4. If still bleeding after 20 minutes can repeat steps 1-3 one more time 5. If still bleeding proceed to nearest Emergency department or Urgent care DAMEON Menjivar Otolaryngology - Head and Neck Surgery [place] 10/05/23 3:22 PM documented in this encounter Nursing Notes * Kely Hylton LPN - 10/05/2023 10:14 AM EST Pt presents today with his daughter due to having recurring nosebleeds as well as having his ear cleaned. Pt does have packing in his nostrils Marshall Tello Sr. is a 88 year old male who present for nose bleeds. Patient reports Last nose bleed: 10/04/2023 Lasting: Unknown How often: 3 in the last 2 weeks Which nostril: Unknown Current treatment: Packing Hx of cauterization: Yes 09/30/23 On Asprin/Anitcoagulant: Yes Last dose: On hold right now due to nosebleeds ER Visit: Yes Hx of blood transfusion due to nose bleed: Yes Bleeding Disorders: Yes, Multiple Myeloma documented in this encounter Plan of Treatment Upcoming Encounters Date Type Department Care Team (Late st Contact Info) Description 10/11/2023 9:20 AM EST Laboratory Lab Mobile [facility] [address] [place] [address] [facility] [address] [place] [address] 10/18/2023 9:10 AM EST Laboratory Lab [facility] [address] [place] [address] [facility] [address] [place] [address] 10/18/2023 9:20 AM EST Laboratory Lab [facility] [address] [place] [address] [facility] [address] [place] [address] 10/19/2023 11:20 AM EST Office Visit Family Medicine [address] [place] [id number] Zenobia Lyon MD [address] [place] [address] [place] [address] 10/25/2023 9:20 AM EST Laboratory Lab [facility] [address] [place] [address] [facility] [address] [place] [address] 10/26/2023 11:00 AM EST Cardiac Studies Cardiology [address] [place] [address] Lobito Croft [facility] [address] [facility] [place] [address] 11/01/2023 9:10 AM EST Laboratory Lab [facility] [address] [place] [address] [facility] [address] [place] [address] 11/01/2023 9:20 AM EST Laboratory Lab [facility] [address] [place] [address] [facility] [address] [place] [address] 11/08/2023 9:20 AM EST Laboratory Lab [facility] [address] [place] [address] [facility] [address] [place] [address] 11/13/2023 10:00 AM EST Home Visit [facility] 132 [place] [address] Lila Brownlee, SANKET 132 [facility] [place] [address] 11/15/2023 9:10 AM EST Laboratory Lab Mobile Ph[facility] [address] [place] [address] [facility] [address] [place] [address] 11/15/2023 9:20 AM EST Laboratory Lab [facility] [address] [place] [address] [facility] [address] [place] [address] 11/29/2023 9:10 AM EST Laboratory Lab [facility] [address] [place] [address] [facility] [address] [place] [address] 12/13/2023 9:10 AM EDT Laboratory Lab [facility] [address] [place] [address] [facility] [address] [place] [address] 01/04/2024 10:20 AM EDT Office Visit Otolaryngology [facility] [address] [place] [address] Kasi Tejeda PA-C [address] [place] [address] 01/26/2024 11:20 AM EDT Office Visit Family Medicine [address] [place] [phone] Zenobia Lyon MD [address] [place] [address] [place] [address] 03/07/2024 1:00 PM EDT Office Visit Cardiology [address] [place] [address] Chris Choudhury PADereckC [address] [place] [address] Scheduled Procedures Name Priority Associated Diagnoses Date/Ti [...] Additional history exists CKD PHOS USE SMARTSET 17536 07/25/202407/03, 09/07/2022, 09/05/2022, Additional history exists O2 ASSESSMENT COMPLETED IN PAST YEAR FOR COPD 09/29/2024 09/29/2023 CKD HGB USE SMARTSET 67292 10/05/202410/05, 10/05/2023, 09/20/2023, Additional history exists COLONOSCOPY-EVERY [...] this encounter Medical Devices Implanted Type Area Medical Device Sales Representative Device Identifier Shelf Expiration Date Model / Serial / Lot Screw T2 Alpha Lock 5x47.5mm - [id number] Implanted:Qty: 1 on 09/06/2022 by Sean Silva MD at [facility] Left: Leg Upper RICHELLE : TRAUMA 06/01/2032 [id number] / / [id number] documented as of this encounter Visit Diagnoses Diagnosis Epistaxis, recurrent- Primary Epistaxis Other infective acute otitis externa of both ears documented in this encounter Advance Directives Documents on File Type Date Recorded 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
--- OUTSIDE RECORDS SUMMARY | 2023-10-14 09:09 | External Medical Summary | Summary of Care ---
Author Name Unknown Organization [facility] Address [address] [place] [address] Phone [phone] Care Team Providers Care Director Of Product Management Name Role Phone Zenobia Lyon MD Primary Care Provide r Reason for Visit * Reason Onset Date Comments Abnormal Lab Results 10/06/2023 Encounter Details Date Type Department Care Team (Late st Contact Info) Description 10/06/2023 Telephone Hematology/Oncology [facility] [place] [address] [facility] [place] [id number] Cammy Estrada CRNP [address] [facility] [place] [address] Abnormal Lab Results Allergies Active Allergy Reactions Criticality Noted [...] 75 MG Oral Tablet (pLAVix)Indications: Atherosclerosis of [place] coronary artery of [place] heart without angina pectoris Take 1 Tablet [...] 90 Tablet 0 09/18/2023 Active Saline Nasal Salix 0.65 % Nasal Solution (Saline Mist Salix) Use 2 sprays into Nostril every 1 [...] CORONARY ATHEROSCLEROSIS OF UNSPECIFIED TYPE OF VESSEL, [place] OR GRAFT Last Assessment & Plan: Stable. [...] without hematuria 05/30/2022 01/24/2023 Overview: Xavier to [facility] 04/20-04/29 urosepsis multi drug [...] MCG/0.3 mL, 12 YRS AND ABOVE, IM [facility] 07/19/2023 Covid-19, Mrna, Lnp-s, Pf, B ivalent, [...] encounter Miscellaneous Notes * Telephone Encounter - Wyatt Ashraf RN - 10/06/2023 9:51 AM EST Pt calling back stating that patient has a sever nose bleed again. They have been using the clamp but it continues to bleed. Pt was recently seen in the hospital for the same condition on 09/30/23 in which the ER needed to pack patients nose to get the bleeding to stop. I advised the that the patient will need to be seen in the ER again regarding his sever nose bleed as he is already severely anemic requiring a blood transfusion. Pt agreeable for to go to ER. Asked this RN to call 911. Called 911 for patient transport to [facility]. Called [facility] ER to advise and spoke with SANKET Terrazas. Faxing labs from yesterday to them. * Telephone Encounter - Wyatt Ashraf RN - 10/06/2023 9:03 AM EST Called patients back. She would like to schedule for 11PM today. TT sent to Annemarie warner as well as Toi Fowler to advise for consent. T&S and transfusion order faxed to blood bank and [facility]. * Telephone Encounter - Wyatt Ashraf RN - 10/06/2023 8:42 AM EST Called patient to advise regarding labs. She states the patient should have a transfusion as he is already weak/fatigued and has shortness of breath which she states he always has. This RN asked if she felt as though this was an emergency situation in which the was unsure but stated that her is normally this way. I called [facility] blood bank and spoke with Miguel Ángel. They have a unit ready today for him. Called [facility] and spoke with Annemarie. They need a new consent on the patient. They can take him today anytime between 10AM and 1PM. TT sent to Toi Fowler to see if the [facility] Hospitalist for [facility] would be able to sign consent with the patient while at the hospital. They are ok with signing the consent for the patient. * Telephone Encounter - Wyatt Ashraf RN - 10/06/2023 8:42 AM EST ----- Message from ARNULFO Hernández sent at 10/05/2023 4:34 PM EST ----- Hgb 7.1. If symptomatic can offer transfusion 1 unit PRBC Otherwise repeat CBCd in one week documented in this encounter Plan of Treatment Upcoming Encounters Date Type Department Care Team (Late st Contact Info) Description 10/11/2023 9:20 AM EST Laboratory Lab [facility] [place] [address] [place] [address] [facility] [address] [place] [address] 10/18/2023 9:10 AM EST Laboratory Lab Mobile Phlebotomy [facility] [address] [place] [address] [facility] [address] [place] [address] 10/18/2023 9:20 AM EST Laboratory Lab Mobile Phlebotomy C [address] [place] [address] [facility] [address] [place] [address] 10/19/2023 11:20 AM EST Office Visit Family Medicine [address] [place] [phone] Zenobia Lyon MD [address] [place] [address] [place] [address] 10/25/2023 9:20 AM EST Laboratory Lab Mobile [facility]bot[facility] [address] [place] [address] [facility] [address] [place] [address] 10/26/2023 11:00 AM EST Cardiac Studies Cardiology [address] [place] [address] [facility] [address] [address] 11/01/2023 9:10 AM EST Laboratory Lab Mobile Phlebotomy C [address] [place] [address] [facility] [address] [place] [address] 11/01/2023 9:20 AM EST Laboratory Lab Mobile Phlebotomy [facility] [address] [place] [address] [facility] [address] [place] [address] 11/08/2023 9:20 AM EST Laboratory Lab Mobile Phlebotomy [facility] [address] [place] [address] [facility] [address] [place] [address] 11/13/2023 10:00 AM EST [facility] Visit [facility] at [facility] [address] [place] [address] Lila Brownlee RN [address] [place] [address] 11/15/2023 9:10 AM EST Laboratory Lab Mobile Phlebotomy [facility] [address] [place] [address] [facility], [facility] [address] [place] [address] 11/15/2023 9:20 AM EST Laboratory Lab [facility] [address] [place] [address] [facility] [address] [place] [address] 11/29/2023 9:10 AM EST Laboratory Lab Mobile Phlebotomy [facility] [address] [place] [address] [facility] [address] [place] [address] 12/13/2023 9:10 AM EDT Laboratory Lab Mobile Phlebotomy [facility] [address] [place] [address] [facility] [address] [place] [address] 01/04/2024 10:20 AM EDT Office Visit Otolaryngology [facility] [address] [place] [address] Ksai Tejeda PA-C [address] [place] [address] 01/26/2024 11:20 AM EDT Office Visit Family Medicine [address] [place] [phone] Zenobia Lyon MD [address] [place] [address] [place] [address] 03/07/2024 1:00 PM EDT Office Visit Cardiology [address] [place] [address] Chris Choudhury PA-C [address] [place] [address] Scheduled Orders Name Type Priority Associated Diagnoses Orde r Schedule TYPE AND SCREEN Lab Routine Iron deficiency anemia, unspecified iron deficiency anemia type Expected: 10/06/2023, Expires: 11/06/2024 Scheduled Procedures Name Priority Associated Diagnoses Date/Ti [...] Additional history exists CKD PHOS USE SMARTSET 36069 07/25/202407/03, 09/07/2022, 09/05/2022, Additional history exists O2 ASSESSMENT COMPLETED IN PAST YEAR FOR COPD 09/29/2024 09/29/2023 CKD HGB USE SMARTSET 69410 10/05/202410/05, 10/05/2023, 09/20/2023, Additional history exists COLONOSCOPY-EVERY [...] this encounter Medical Devices Implanted Type Area Catalyst Recovery Operator Device Identifier Shelf Expiration Date Model / Serial / Lot Screw T2 Alpha Lock 5x47.5mm - [id number] Implanted:Qty: 1 on 09/06/2022 by Sean Silva MD at [place] [facility] Left: Leg Upper RICHELLE : TRAUMA 06/01/2032 [id number] / / [id number] documented as of this encounter Visit Diagnoses Diagnosis Iron deficiency anemia, unspecified iron deficiency anemia type- Primary documented in this encounter Advance Directives Documents on File Type Date Recorded Patient Negotiator Expl anation POLST 10/17/2022 [place] DERS FOR LIFE-SUSTAINING TREATMENT POLST 09/10/2022 [place] OR DERS FOR LIFE-SUSTAINING TREATMENT Latest Code [...] Agen t (per Health Care Power of Hematologist document) Reji Tello Neil Adult Child First Alterna te Health Care Agent (per Health Care Power of Hematologist document) Bowen Tello Adult Child First Alternate Health Care Agent (per Health Care Power of Hematologist document) Care Teams Director Of Product Management Relationship Specialty Start Date End Date Zenobia Lyon MD [address] [place] [address] [place] [address] PCP - General Family Medicine 05/22/23 documented as of this encounter
--- NOTE | 2023-10-14 09:23 | Emergency Department Note ---
Impression & Plan SOB (shortness of breath), Syncope, Anemia, Acute UTI ED Provider Note NAME: MARTA ALLEN Sr AGE: 88 SEX: M : 1935 ARRIVES VIA: Ambulance INFORMANT: [Patient][EMS, nursing] ED PROVIDER(S): [Troy Pruett MD] CHIEF COMPLAINT: Illness HISTORY OF PRESENT ILLNESS: The patient is an 88-year-old male who was brought by ambulance for weakness, shortness of breath and syncopal spells. The patient is a very poor historian and cannot really give me much history. This history was reported to me from EMS and nursing. Of note, the patient has multiple myeloma. He has required red blood cell transfusions because of anemia. He has had issues with epistaxis. The patient denies any pain. He states he is thirsty. He does admit to some mild shortness of breath. As per EMS, the patient's O2 saturation was around 88% on 3 L, he typically wears 3 L at night. They increased his O2 to 4 L and his saturation improved. PMHx/PSHx/Social Hx: See Below PHYSICAL EXAM: GENERAL: Patient is in no acute distress. HEENT: No acute trauma, normocephalic atraumatic, mucous membranes quite dry, no nasal congestion. NECK: No stridor, no adenopathy, no meningismus, trachea is midline. LUNGS: There appears to be some mild shortness of breath as there is an increased respiratory rate. Some scattered wheezes are heard, no rhonchi. HEART: Without murmurs gallops or rubs, regular rate and rhythm. ABDOMEN: Soft, nontender, no peritonitis. EXTREMITIES: No cyanosis, full range of motion of all the joints without pain or difficulty. NEUROLOGIC: Awake, no acute motor or sensory deficits, no focal weakness. Poor historian. SKIN: No jaundice, no diaphoresis. DIFFERENTIAL DIAGNOSIS: Anemia, dehydration, viral illness, bronchitis, pneumonia, CHF, RI, dysrhythmia, among others. EMERGENCY DEPARTMENT PROCEDURES: MEDICAL DECISION MAKING: Pacemaker evaluation per the device tach showed a chronic underlying atrial fibrillation. The pacemaker was functioning normally. There was no dysrhythmia noted. No runs of tachycardia. There is no leukocytosis. The patient is anemic with a hemoglobin of 6.5. The patient has a history of anemia because of his multiple myeloma however, today's value was lower than his typical baseline. Platelet count was normal. INR slightly high at 1.2. Creatinine was elevated but, the patient has a history of renal insufficiency/failure. Lactic acid level was elevated consistent with potential infection. No concerning liver enzyme elevation. ECG shows a ventricular pacemaker, no obvious ischemia. Cardiac enzyme testing x 1 is slightly elevated. This troponin elevation could be secondary to cardiac injury or potential just mismatch from his shortness of breath and anemia. Urinalysis does show findings of infection. Digoxin level was not toxic. Respiratory bio fire was negative. Chest x-ray shows some cardiomegaly, no pneumonia or CHF. On exam, the patient appeared somewhat dehydrated. The patient was ordered for 2 units of blood to be typed, crossed and held. He received IV ceftriaxone as empiric antibiotic coverage, he was given a DuoNeb. The patient presents with reported syncope and shortness of breath. He was found to be anemic. He was noted to have an elevated troponin. He appeared to have a UTI. The patient's in need of a hospital stay given the above findings. I did speak with the patient and case management. The on-call hospitalist was consulted. Of note, patient did consent to a packed red blood cell transfusion, the appropriate paperwork was completed and signed. Prior/Outside records/notes reviewed: Discharge note from 09/27/2023 discussing his presentation for multiple myeloma, epistaxis and the need for transfusion. ECG per my interpretation: Indication was shortness of breath and syncope. The ECG shows a ventricular pacemaker with a rate of 71. There is some baseline artifact. No obvious ST elevation. No PVCs. The QTc is 456. Continuous Cardiac Monitoring per my interpretation: An order was placed for continuous cardiac monitoring. The monitor shows a rate of 75 with a ventricular pacemaker. Imaging/x-ray results per my interpretation: Chest x-ray shows some cardiomegaly, no pneumonia or concerning CHF. Chronic Medical/Social conditions affecting care: Multiple myeloma Care/Management discussed with: Case management, the on-call hospitalist. Level of care consideration(s): After review of the information above and other included data: --I believe the patient requires escalation of care to admission Critical Care Note: I have personally spent 44 minutes of critical care time in the direct management of this patient. This includes bedside care, interpretation of diagnostic studies, and testing, discussion with consultants, patient, and family members, and other required patient management activities. This 44 minutes is in excess of all separately billable procedures. DISPOSITION: Admission Past Med/Surg History Medical History Epistaxis CKD stage 3 due to type 2 diabetes mellitus no specialist Type II diabetes mellitus NIDDM Peptic ulcer disease GI bleed Elevated prostate specific antigen (PSA) Multiple myeloma History of pacemaker Shingles Encounter for pre-operative examination Severe sepsis Dementia GI bleed per pt's > had 3 units PRBC's [facility] during admission in Jul 2021 Dementia mild at present Presence of combination internal cardiac defibrillator (ICD) and pacemaker follows w/ Dr. Sanford > [employer] > gets checked electronically > PMH provided by , eduardo when last checked in office. Chronic back pain Osteoarthritis Anemia History of colon polyps GERD (gastroesophageal reflux disease) Hearing deficit [place] Glaucoma Aortic aneurysm unsure of last ultrasound/scan -- no surgical intervention. Moderate aortic root dilatation noted on 2018 echo. No AAA noted on [address] COPD (chronic obstructive pulmonary disease) well controlled rare res inh use On home oxygen therapy 2 LPM QHS BPH (benign prostatic hyperplasia) Aortic valve insufficiency Moderate-severe per 11/2018 echo Ischemic cardiomyopathy EF normalized, most recently 55-60% on 11/2018 echo Dyslipidemia Persistent atrial fibrillation Anticoagulation contraindicated per cardiology > ICD Tachy-lorna syndrome S/p dual chamber pacer with upgrade to pacer/ICD 2014 HTN (hypertension) CAD (coronary artery disease) (08/21/14) S/p CABG July 2000 receiving KAUR graft to LAD, saphenous vein graft sequentially from the obtuse marginal to diagonal. S/p stenting of prox Cx 2013 Surgical History History of implantable cardioverter-defibrillator (ICD) placement History of tooth extraction History of esophagogastroduodenoscopy (EGD) History of tonsillectomy History of cataract surgery bilat History of prostate surgery non cancerous History of colonoscopy History of cardiac cath 1999 --> CABG 2013 - 1 stent - [facility] S/P CABG x 3 1999 S/P coronary artery stent placement July 2014 with stenting of the proximal circumflex Family History Grandmother Diabetes Mother Colon cancer Other Melanoma No family history of adverse response to anesthesia Social History Smoking Status: Former smoker Tobacco Type: Cigarettes Second Hand Exposure: No; Do You Dip or Chew Tobacco: No; Tobacco Cessation Education Requested by Patient: No Hx Alcohol Use: No Hx Substance Use: No Preferred Language: Lao Communication Ability: Effective Communication Ability Comment: [place] despite b/l [place] 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 Beliefs That Will Affect Care: None marital status: Current Living Situation: Spouse How many Children do You have: 2 Other Information That Helps Us Care for You: No Feels Safe at Home: Yes Safety Concerns: Feels Safe At This Time Assistive Devices: Hearing Aid - Bilateral Allergies Allergies Allergy/AdvReac Type Severity Reaction Status Date / Time Sulfa (Sulfonamide Allergy Severe DYSUREA Verified 10/14/23 10:52 Antibiotics) PER [facility] prednisone Allergy Intermediate BLISTERS Verified 10/14/23 10:52 IN THROAT hydrocodone AdvReac Severe ALTERED Verified 10/14/23 10:52 MENTAL STATUS FELECIA Inhibitors AdvReac Intermediate Cough Verified 10/14/23 10:52 pseudoephedrine AdvReac Intermediate TEMP ELEV Verified 10/14/23 10:52 Home Meds Home Medications Medication Instructions Recorded Confirmed albuterol sulfate 90 mcg/actuation 2 puff inhalation QID PRN 06/07/18 10/14/23 aerosol inhaler (Proventil HFA) Shortness Of Breath digoxin 125 mcg (0.125 mg) tablet 125 mcg PO 3XWK 06/07/18 10/14/23 magnesium oxide 400 mg (241.3 mg 400 mg PO PM 06/07/18 10/14/23 magnesium) tablet potassium chloride 20 mEq 20 meq PO QAM 06/07/18 10/14/23 tablet,extended release(part/cryst) (Klor-Con M) furosemide 40 mg tablet (Lasix) 40 mg PO QAM 04/25/19 10/14/23 latanoprost 0.005 % eye drops 1 drp OPB QAM 03/24/20 10/14/23 pantoprazole 40 mg tablet,delayed 40 mg PO QAM 10/22/21 10/14/23 release ferrous sulfate 325 mg (65 mg 325 mg PO BID 08/28/22 10/14/23 iron) tablet (FeroSul) losartan 50 mg tablet 50 mg PO QAM 08/28/22 10/14/23 metoprolol succinate 50 mg 50 mg PO QAM 08/28/22 10/14/23 tablet,extended release 24 hr multivitamin 1 tab PO DAILY 08/28/22 10/14/23 glipizide 5 mg tablet, extended 5 mg PO DAILYBB 04/20/23 10/14/23 release 24 hr dutasteride 0.5 mg capsule 0.5 mg PO QAM 08/22/23 10/14/23 ondansetron HCl 4 mg tablet 4 mg PO Q6H PRN Nausea And Vomiting 08/22/23 10/14/23 fluticasone 250 mcg-salmeterol 50 1 inh inhalation BID 10/14/23 10/14/23 mcg/dose blistr powdr for inhalation sodium chloride 0.65 % nasal spray 0 spray NA Q1H PRN dry nasal 10/14/23 10/14/23 aerosol (Saline Mist) passages Previous Rx's Medication Instructions Recorded methenamine hippurate 1 gram tablet 1 g PO BID 30 days #60 tabs 11/25/22 Results & Data (ED) Vital Signs Vital Signs - 24 hr 10/14/23 09:18 10/14/23 09:24 10/14/23 10:00 Temperature 36.8 C Temperature Source Oral Pulse Rate 79 71 74 Pulse Rate from SpO2 Sensor 74 Respiratory Rate 26 H 22 Respiratory Effort / Characteristics Short of Breath Respiratory Pattern Tachypnea Blood Pressure 136/65 134/61 Blood Pressure Mean 88 85 Pulse Oximetry 93 93 Oxygen Delivery Method Room Air Sepsis Recent Fever Within 48 Hours No Sepsis New/Unexplained Change in Mental Status No Sepsis Action Taken by Nursing No Action Required Home Medications Current Medication List: was personally reviewed by me Laboratory Data Attestation: I reviewed the patient's lab results. 10/14/23 09:05 10/14/23 09:05 Lab Results 10/14/23 10/14/23 10/14/23 Range/Units 09:05 09:21 09:30 WBC 6.37 (4.8-10.8) K/ul RBC 2.08 L (4.70-6.10) M/uL Hgb 6.5 L* (14.0-18.0) g/dl Hct 21.3 L (42.0-52.0) % MCV 102.4 H (80.0-100.0) fL MCH 31.3 (25.0-34.0) pg MCHC 30.5 L (32.0-36.0) g/dL RDW Std Deviation 71.4 H (36.4-46.3) fL RDW Coeff of Maricarmen 19.3 H (11.5-14.5) % Plt Count 146 (130-400) K/uL MPV 10.0 (9.4-12.4) fL Immature Gran % (Auto) 0.3 % Neut % (Auto) 82.6 % Lymph % (Auto) 4.4 % [place] % (Auto) 12.2 % Eos % (Auto) 0.3 % Baso % (Auto) 0.2 % Neut # (Auto) 5.26 (1.40-6.50) K/uL Lymph # (Auto) 0.28 L (1.20-3.40) K/uL [place] # (Auto) 0.78 H (0.11-0.59) K/uL Eos # (Auto) 0.02 (0.00-0.50) K/uL Baso # (Auto) 0.01 (0.00-0.20) K/uL Immature Gran # (Auto) 0.02 (0.01-0.20) K/uL Platelet Estimate Normal (Normal) Polychromasia 1+ Rouleaux 1+ PT 13.0 H (9.0-12.0) Seconds INR 1.2 H (0.9-1.1) APTT 33 H (21-31) Seconds PTT Ratio 1.2 Sodium 139 (136-145) mmol/L Potassium 4.4 (3.5-5.1) mmol/L Chloride 100 (98-107) mmol/L Carbon Dioxide 23 (21-32) mmol/L Anion Gap 16 H (3-11) BUN 54 H (6-23) mg/dl Creatinine 2.12 H (0.6-1.4) mg/dl Est Cr Clr Drug Dosing Not Reportable Est GFR ( Amer) 31.0 ml/min Est GFR (Non-Af Amer) 26.8 ml/min BUN/Creatinine Ratio 25.5 H (10-20) Glucose 203 H (70-99(Fasting)) mg/dl Lactate 2.9 H* (0.4-2.0) mmol/L Calcium 8.5 L (8.6-10.3) mg/dl Magnesium 2.0 (1.7-2.4) mg/dl Total Bilirubin 0.8 (0.2-1.0) mg/dl AST 27 (13-39) U/L ALT 23 (7-52) U/L Alkaline Phosphatase 57 (34-104) U/L Troponin I High Sens 48.1 H (0-20) pg/ml Total Protein 7.9 (6.0-8.3) gm/dl Albumin 2.7 L (3.4-5.0) gm/dl Globulin 5.2 H (2.5-4.0) gm/dl Albumin/Globulin Ratio 0.5 L (0.9-2) TSH 0.886 (0.300-4.500) uIu/ml Urine Color Yellow Urine Appearance Cloudy A (Clear) Urine pH 5.5 (4.5-7.5) Ur Specific Pinson 1.016 (1.000-1.030) Urine Protein 2+ H (Negative) Urine Glucose (UA) Negative (Negative) Urine Ketones Negative (Negative) Urine Blood 2+ H (Negative) Urine Nitrite Negative (Negative) Urine Bilirubin Negative (Negative) Urine Urobilinogen Negative (Negative) Ur Leukocyte Esterase 2+ H (Negative) Urine WBC (Auto) >30 H (0-5) /hpf Urine RBC (Auto) 5-10 H (0-4) /hpf U Hyaline Cast (Auto) 0 (0-5) /lpf U Epithel Cells (Auto) 0-5 (0-5) /lpf Urine Bacteria (Auto) 4+ H (Negative) Urine Yeast Not Reportable Digoxin 0.4 L (0.8-2.0) ng/ml Adenovirus (PCR) Not Detected (NotDetected) B. pertussis DNA (PCR) Not Detected (NotDetected) B.parapertussis DNA PCR Not Detected (NotDetected) C. pneumoniae DNA (PCR) Not Detected (NotDetected) Coronavirus OC43 (PCR) Not Detected (NotDetected) Coronavirus HKU1 (PCR) Not Detected (NotDetected) Coronavirus 229E (PCR) Not Detected (NotDetected) SARS-CoV-2 (PCR) Not Detected (NotDetected) Coronavirus NL63 (PCR) Not Detected (NotDetected) Human Metapneumovir PCR Not Detected (NotDetected) Influenza Type A (PCR) Not Detected (NotDetected) Influenza Type B (PCR) Not Detected (NotDetected) M. pneumoniae (PCR) Not Detected (NotDetected) Parainfluenza 1 (PCR) Not Detected (NotDetected) Parainfluenza 2 (PCR) Not Detected (NotDetected) Parainfluenza 3 (PCR) Not Detected (NotDetected) Parainfluenza 4 (PCR) Not Detected (NotDetected) RSV (PCR) Not Detected (NotDetected) Entero/Rhino (PCR) Not Detected (NotDetected) Blood Type Antibody Screen Crossmatch 10/14/23 Range/Units 10:04 WBC (4.8-10.8) K/ul RBC (4.70-6.10) M/uL Hgb (14.0-18.0) g/dl Hct (42.0-52.0) % MCV (80.0-100.0) fL MCH (25.0-34.0) pg MCHC (32.0-36.0) g/dL RDW Std Deviation (36.4-46.3) fL RDW Coeff of Maricarmen (11.5-14.5) % Plt Count (130-400) K/uL MPV (9.4-12.4) fL Immature Gran % (Auto) % Neut % (Auto) % Lymph % (Auto) % [place] % (Auto) % Eos % (Auto) % Baso % (Auto) % Neut # (Auto) (1.40-6.50) K/uL Lymph # (Auto) (1.20-3.40) K/uL [place] # (Auto) (0.11-0.59) K/uL Eos # (Auto) (0.00-0.50) K/uL Baso # (Auto) (0.00-0.20) K/uL Immature Gran # (Auto) (0.01-0.20) K/uL Platelet Estimate (Normal) Polychromasia Rouleaux PT (9.0-12.0) Seconds INR (0.9-1.1) APTT (21-31) Seconds PTT Ratio Sodium (136-145) mmol/L Potassium (3.5-5.1) mmol/L Chloride (98-107) mmol/L Carbon Dioxide (21-32) mmol/L Anion Gap (3-11) BUN (6-23) mg/dl Creatinine (0.6-1.4) mg/dl Est Cr Clr Drug Dosing Est GFR ( Amer) ml/min Est GFR (Non-Af Amer) ml/min BUN/Creatinine Ratio (10-20) Glucose (70-99(Fasting)) mg/dl Lactate (0.4-2.0) mmol/L Calcium (8.6-10.3) mg/dl Magnesium (1.7-2.4) mg/dl Total Bilirubin (0.2-1.0) mg/dl AST (13-39) U/L ALT (7-52) U/L Alkaline Phosphatase (34-104) U/L Troponin I High Sens (0-20) pg/ml Total Protein (6.0-8.3) gm/dl Albumin (3.4-5.0) gm/dl Globulin (2.5-4.0) gm/dl Albumin/Globulin Ratio (0.9-2) TSH (0.300-4.500) uIu/ml Urine Color Urine Appearance (Clear) Urine pH (4.5-7.5) Ur Specific [place]inson (1.000-1.030) Urine Protein (Negative) Urine Glucose (UA) (Negative) Urine Ketones (Negative) Urine Blood (Negative) Urine Nitrite (Negative) Urine Bilirubin (Negative) Urine Urobilinogen (Negative) Ur Leukocyte Esterase (Negative) Urine WBC (Auto) (0-5) /hpf Urine RBC (Auto) (0-4) /hpf U Hyaline Cast (Auto) (0-5) /lpf U Epithel Cells (Auto) (0-5) /lpf Urine Bacteria (Auto) (Negative) Urine Yeast Digoxin (0.8-2.0) ng/ml Adenovirus (PCR) (NotDetected) B. pertussis DNA (PCR) (NotDetected) B.parapertussis DNA PCR (NotDetected) C. pneumoniae DNA (PCR) (NotDetected) Coronavirus OC43 (PCR) (NotDetected) Coronavirus HKU1 (PCR) (NotDetected) Coronavirus 229E (PCR) (NotDetected) SARS-CoV-2 (PCR) (NotDetected) Coronavirus NL63 (PCR) (NotDetected) Human Metapneumovir PCR (NotDetected) Influenza Type A (PCR) (NotDetected) Influenza Type B (PCR) (NotDetected) M. pneumoniae (PCR) (NotDetected) Parainfluenza 1 (PCR) (NotDetected) Parainfluenza 2 (PCR) (NotDetected) Parainfluenza 3 (PCR) (NotDetected) Parainfluenza 4 (PCR) (NotDetected) RSV (PCR) (NotDetected) Entero/Rhino (PCR) (NotDetected) Blood Type A Positive Antibody Screen NEGATIVE Crossmatch See Detail Administered Medications Discontinued Medications Albuterol (Albut/Ipratrop 3mg/0.5mg Neb 3 Ml Vial) 3 ml NEB NOW STA; Protocol Stop: 10/14/23 09:19 Last Admin: 10/14/23 10:00 Dose: 3 ml Documented By: MT Furosemide (Furosemide 40 Mg/4 Ml Vial) 40 mg IV ONE ONE Stop: 10/14/23 12:02 Last Admin: 10/14/23 12:44 Dose: 40 mg Documented By: MT Ceftriaxone Sodium (Rocephin) 2,000 mg in 50 mls @ 100 mls/hr IV NOW STA Stop: 10/14/23 10:34 Last Infusion: 10/14/23 12:31 Dose: Infused Documented By: Admin: 10/14/23 11:04 Dose: 100 mls/hr Documented By: CPB Imaging Data Radiologist's Impression: Chest X-Ray 10/14/23 09:18 SINGLE VIEW CHEST CLINICAL HISTORY: Generalized weakness. FINDINGS: 2 AP, portable, upright chest radiographs are compared to study dated 09/30/2023. The patient is status post midline sternotomy. A multilead cardiac AICD is unchanged in position and partially obscures the left upper chest. The heart is enlarged noting atherosclerotic calcification of the thoracic aorta. There is mild pulmonary vascular congestion. Chronic interstitial thickening is similar to previous. There is bibasilar scarring/atelectasis. No airspace consolidation or large pleural effusion is identified. No pneumothorax is seen. The skeletal structures are osteopenic. The bony thorax is grossly intact. IMPRESSION: 1. Cardiomegaly and AICD with pulmonary vascular congestion. 2. No airspace consolidation or large pleural effusion is identified. ACT 112: Negative or not required by law. Electronically signed by: Troy Wood M.D. 10/14/2023 9:39 AM Discharge Plan Visit Data Chief Complaint: Illness ED Provider: Troy Pruett Discharge Problem: SOB (shortness of breath), Syncope, Anemia, Acute UTI Patient Disposition: Admitted As Inpatient Condition: Fair Discharge Instructions Interventions: ED Discharge Assessment Last Done: 10/14/23 13:06 Discharge Problem: Syncope Qualifiers: Syncope type: unspecified Qualified Code(s): R55 - Syncope and collapse Anemia Qualifiers: Anemia type: unspecified type Qualified Code(s): D64.9 - Anemia, unspecified
--- NOTE | 2023-10-14 09:41 | XRay Report ---
SINGLE VIEW CHEST CLINICAL HISTORY: Generalized weakness. FINDINGS: 2 AP, portable, upright chest radiographs are compared to study dated 09/30/2023. The patie nt is status post midline sternotomy. A multilead cardiac AICD is unchanged in position and partially obscures the left upper chest. The heart is enlarged noting atherosclerotic calcification of the tho racic aorta. There is mild pulmonary vascular congestion. Chronic interstitial thickening is similar to previous. There is bibasilar scarring/atelectasis. No airspace consolidation or large pleural effu chacha is identified. No pneumothorax is seen. The skeletal structures are osteopenic. The bony thorax is grossly intact. IMPRESSION: 1. Cardiomegaly and AICD with pulmonary vascular congestion. 2. No airspace consolidation or large pleural effusion is identified. ACT 112: Negative or not required by law. Electronically signed by: Troy Wood M.D. 10/14/2023 9:39 AM
[2023-10-14 09:42] LABS: Alanine Aminotransferase 23 U/L (7-52); Albumin Globulin Ratio 0.5 (0.9-2); Albumin Level 2.7 gm/dl (3.4-5.0); Alkaline Phosphatase 57 U/L (34-104); Anion Gap 16 (3-11); Aspartate Aminotransferase 27 U/L (13-39); BUN Creatinine Ratio 25.5 (10-20); Bilirubin,Total 0.8 mg/dl (0.2-1.0); Blood Urea Nitrogen 54 mg/dl (6-23); Calcium 8.5 mg/dl (8.6-10.3); Carbon Dioxide 23 mmol/L (21-32); Chloride 100 mmol/L (98-107); Est GFR (Non-African American) 26.8 ml/min; Globulin 5.2 gm/dl (2.5-4.0); Glucose 203 mg/dl (70-99(Fasting)); Potassium 4.4 mmol/L (3.5-5.1); Sodium 139 mmol/L (136-145); Total Protein 7.9 gm/dl (6.0-8.3)
[2023-10-14 09:47] LABS: Appearance Urine Cloudy (Clear); Bacteria Urine Automated 4+ (Negative); Bilirubin Urine Negative (Negative); Blood Urine 2+ (Negative); Cast Urine Automated 0 /lpf (0-5); Color Urine Yellow; Epithelial Cell Urine Auto 0-5 /lpf (0-5); Glucose Urine UA Negative (Negative); Ketones Urine Negative (Negative); Leukocyte Esterase Urine 2+ (Negative); Nitrite Urine Negative (Negative); Protein Urine 2+ (Negative); Specific Gravity Urine 1.016 (1.000-1.030); Urobilinogen Urine Negative (Negative); WBC Urine Automated >30 /hpf (0-5); pH Urine 5.5 (4.5-7.5)
[2023-10-14 09:47] LABS: Troponin I High Sensitivity 48.1 pg/ml (0-20)
[2023-10-14 09:52] LABS: Hematocrit (blood only) 21.3 % (42.0-52.0); Hemoglobin 6.5 g/dl (14.0-18.0); Mean Corpuscular Hemoglobin 31.3 pg (25.0-34.0); Mean Corpuscular Hgb Conc 30.5 g/dL (32.0-36.0); Mean Corpuscular Volume 102.4 fL (80.0-100.0); Platelet Count 146 K/uL (130-400); RDW Coefficient of Variation 19.3 % (11.5-14.5); RDW Standard Deviation 71.4 fL (36.4-46.3); Red Blood Count 2.08 M/uL (4.70-6.10); White Blood Count 6.37 K/ul (4.8-10.8)
[2023-10-14] MEDS ORDERED: SODIUM CHLORIDE 0.9% 250 ML IV PRN ×3 (09:54→21:28)
[2023-10-14 09:57] LABS: Thyroid Stimulating Hormone 0.886 uIu/ml (0.300-4.500)
[2023-10-14 09:59] LABS: INR 1.2 (0.9-1.1); Partial Thromboplastin Ratio 1.2; Partial Thromboplastin Time 33 Seconds (21-31)
[2023-10-14] MEDS: ALBUT/IPRATROP 3MG/0.5MG NEB 3 ML VIAL NEB STA (10:00)
[2023-10-14 10:04] LABS: Basophils # (auto) 0.01 K/uL (0.00-0.20); Basophils % (auto) 0.2 %; Eosinophils # (auto) 0.02 K/uL (0.00-0.50); Eosinophils % (auto) 0.3 %; Immature Granulocytes # (auto) 0.02 K/uL (0.01-0.20); Immature Granulocytes % (auto) 0.3 %; Lymphocytes # (auto) 0.28 K/uL (1.20-3.40); Lymphocytes % (auto) 4.4 %; Monocytes # (auto) 0.78 K/uL (0.11-0.59); Monocytes % (auto) 12.2 %; Neutrophils # (auto) 5.26 K/uL (1.40-6.50); Neutrophils % (auto) 82.6 %; Platelet Estimate Normal (Normal); Polychromasia 1+; Rouleaux 1+
[2023-10-14 10:22] LABS: Adenovirus PCR Not Detected (NotDetected); Bordetella parapertussis PCR Not Detected (NotDetected); Bordetella pertussis PCR Not Detected (NotDetected); Chlamydia pneumoniae PCR Not Detected (NotDetected); Coronavirus 229E PCR Not Detected (NotDetected); Coronavirus CoV-2 (COVID19)PCR Not Detected (NotDetected); Coronavirus HKU1 PCR Not Detected (NotDetected); Coronavirus NL63 PCR Not Detected (NotDetected); Coronavirus OC43PCR Not Detected (NotDetected); Human Metapneumovirus PCR Not Detected (NotDetected); Influenza A PCR Not Detected (NotDetected); Influenza B PCR Not Detected (NotDetected); Mycoplasma pneumoniae PCR Not Detected (NotDetected); Parainfluenza Virus 1 PCR Not Detected (NotDetected); Parainfluenza Virus 2 PCR Not Detected (NotDetected); Parainfluenza Virus 3 PCR Not Detected (NotDetected); Parainfluenza Virus 4 PCR Not Detected (NotDetected); Respiratory Syncytial VirusPCR Not Detected (NotDetected); Rhinovirus/Enterovirus PCR Not Detected (NotDetected)
[2023-10-14] MEDS: cefTRIAXone SODIUM 2,000 MG/50 ML BAG IV STA (11:04)
[2023-10-14] MEDS: FUROSEMIDE 40 MG/4 ML VIAL IV ONE (12:44)
--- OUTSIDE RECORDS SUMMARY | 2023-10-14 13:08 | External Medical Summary | Summary of Care ---
Author Name Unknown Organization [facility] Address [address] [address] Phone [phone] Care Team Providers Care Ve Teacher Name Role Phone Zenobia Lyon MD Primary Care Provide r Reason for Visit * Reason Onset Date Comments [facility]: Maintenance 10/14/2023 Encounter Details Date Type Department Care Team (Late st Contact Info) Description 10/14/2023 1:00 PM EST Scheduled Telephone [facility], [facility] [address] [facility] [place] [address] [facility], Nurse [facility] [address] [facility] [place] [address] Allergies Active Allergy Reactions Criticality Noted Date Comments James Inhibitors 09/10/2002 cough on prinivil Hydrocodone 09/05/2022 Family states AMS change when taken Prednisone 05/26/2011 Blisters in throat Sulfa Antibiotics 03/19/2001 dysurea documented as of this encounter (statuses as of 10/14/2023) Medications Medication Sig Dispensed Refills Start Date [...] 75 MG Oral Tablet (pLAVix)Indications: Atherosclerosis of [place] coronary artery of [place] heart without angina pectoris Take 1 Tablet [...] 90 Tablet 0 09/18/2023 Active Saline Nasal [place] 0.65 % Nasal Solution (Saline Mist [place]) Use 2 sprays into Nostril every 1 hour as needed for dry nasal passages 44 mL 0 09/27/2023 Active documented as of this encounter (statuses as of 10/14/2023) Active Problems Patient Care Coordination No te [...] CORONARY ATHEROSCLEROSIS OF UNSPECIFIED TYPE OF VESSEL, CHER-AE HEIGHTS OR GRAFT Last Assessment & Plan: Stable. 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 documented as of this encounter (statuses as of 10/14/2023) Resolved Problems Problem Noted Date Diagnosed Date [...] without hematuria 05/30/2022 01/24/2023 Overview: Xavier to [facility] 04/20-04/29 urosepsis multi drug resistant E. Coli [...] as of this encounter (statuses as of 10/14/2023) Immunizations Name Administration Dates Next Due COVID-19 [...] Telephone Encounter - Simran Murillo RN - 10/14/2023 9:10 AM EST Message received from triage nurse called and said pt fell Called spoke to spouse. Pt currently in [facility] ED She states pt was not lucid.got up thought he was going to the bathroom but walked in the living room and began to sit down in the middle of the room. No chair. And fell on the floor + dementia + hit head. On plavix but per spouse states pt plavix has been on hold x 1 week d/t nose bleeds) + hit back Breathing/wheezing worse + coughing. No mucous + chest pain Not eating Had temp of 102 per spouse and low O2 when EMS was there but she could not remember the number Spouse states she is having increased difficulty handling him at home Son going to hospital today Advised she talk to son who can communicate with ED regarding concerns and [facility] can discuss HH vs hospice vs placement Spouse inquiring about hospice Care teams please advise unsure level of care pt needs Urgent referral may need to be placed Simran Murillo RN, BSN [facility] commercial credit headWeblogic Developer documented in this encounter Plan of Treatment Upcoming Encounters Date Type Department Care Team (Late st Contact Info) Description 10/15/2023 12:00 PM EST Scheduled Telephone [facility], [facility] [address] [facility] [place] [address] [facility], Nurse [facility] [address] [facility] [place] [address] 10/18/2023 9:10 AM EST Laboratory Lab Mobile Phlebotomy [facility] [address] [place] [address] Gm, [facility] [address] [place] [address] 10/18/2023 9:20 AM EST Laboratory Lab Mobile Phlebotomy [facility] [address] [place] [address] Gm, [facility] [address] [place] [address] 10/19/2023 11:20 AM EST Office Visit Family Medicine [address] [place] [phone] Zenobia Lyon MD [address] [place] [address] [place] [address] 10/25/2023 9:20 AM EST Laboratory Lab Mobile Phlebotomy [facility] [address] [place] [address] [facility], [facility] Mobile Home Draw [address] [place] [address] 10/26/2023 11:00 AM EST Cardiac Studies Cardiology [address] [place] [address] [facility] [address] [facility] [place] [address] 11/01/2023 9:10 AM EST Laboratory Lab Mobile Phlebotomy [facility] [address] [place] [address] [facility], [facility] Draw [address] [place] [address] 11/01/2023 9:20 AM EST Laboratory Lab Mobile Phlebotomy [facility] [address] [place] [address] [facility], [facility] Draw [address] [place] [address] 11/03/2023 10:45 AM EST Office Visit Hematology/Oncology [facility] [place] [address] [facility] [place] [address] Pietro Sykes MD [address] [place] [address] 11/08/2023 9:20 AM EST Laboratory Lab Mobile Phlebotomy [facility] [address] [place] [address] [facility], [facility] Draw [address] [place] [address] 11/13/2023 10:00 AM EST [facility] [address] [place] [address] Lila Brownlee RN [address] [place] [address] 11/15/2023 9:10 AM EST Laboratory Lab Mobile Phlebotomy [facility] [address] [place] [address] Gm, Gml [facility] Home Draw [address] [place] [address] 11/15/2023 9:20 AM EST Laboratory Lab Mobile Phlebotomy [facility] [address] [place] [address] [facility], [facility] Home Draw [address] [place] [address] 11/29/2023 9:10 AM EST Laboratory Lab Mobile Phlebotomy [facility] [address] [place] [address] [facility], [facility] Mobile Home Draw [address] [place] [address] 12/13/2023 9:10 AM EDT Laboratory Lab Mobile Phlebotomy [facility] [address] [place] [address] [facility], [facility] Mobile Home Draw [address] [place] [address] 01/04/2024 10:20 AM EDT Office Visit Otolaryngology [facility] [address] [place] [address] Kasi Tejeda PA-C [address] [place] [address] 01/26/2024 11:20 AM EDT Office Visit Family Medicine [address] [place] [phone] Zenobia Lyon MD [address] [place] [address] [place] [address] 03/07/2024 1:00 PM EDT Office Visit Cardiology [address] [place] [address] Chris Choudhury PA-C [address] [place] [address] Scheduled Procedures Name Priority Associated Diagnoses Date/Ti [...] Additional history exists CKD PHOS USE SMARTSET 44146 07/25/202407/03, 09/07/2022, 09/05/2022, Additional history exists O2 ASSESSMENT COMPLETED IN PAST YEAR FOR COPD 09/29/2024 09/29/2023 CKD HGB USE SMARTSET 86464 10/11/202410/11, 10/11/2023, 10/05/2023, Additional history exists COLONOSCOPY-EVERY [...] this encounter Medical Devices Implanted Type Area Hospital Administrator Device Identifier Shelf Expiration Date Model / Serial / Lot Screw T2 Alpha Lock 5x47.5mm - [id number] Implanted:Qty: 1 on 09/06/2022 by Sean Silva MD at [facility] Left: Leg Upper RICHELLE : TRAUMA 06/01/2032 [id number] / / [id number] documented as of this encounter Advance Directives Documents on File Type Date Recorded Patient Service Electrician Expl anation POLST 10/17/2022 [place] [...] Agen t (per Health Care Power of Service Center Technician document) Reji Tello Dotts Adult Child First Alterna te Health Care Agent (per Health Care Power of Service Center Technician document) Bowen Tello Adult Child First Alternate Health Care Agent (per Health Care Power of Service Center Technician document) Care Teams Ve Teacher Relationship Specialty Start Date End Date Zenobia Lyon MD [address] [place] [address] [place] [address] PCP - General Family Medicine 05/22/23 documented as of this encounter
[2023-10-14] MEDS ORDERED: CARBOHYDRATES FOR HYPOGLYCEMIA PO PRN (14:39)
[2023-10-14] MEDS ORDERED: GLUCOSE 40% GEL 15 GM TUBE PO PRN (14:39)
[2023-10-14] MEDS ORDERED: GLUCAGON FOR INJ 1 MG VIAL SQ PRN (14:39)
[2023-10-14] MEDS ORDERED: GLUCOSE 10 TAB/TUBE PO PRN (14:39)
[2023-10-14] MEDS ORDERED: DEXTROSE 50% 50 ML SYRINGE IV PRN (14:39)
--- NOTE | 2023-10-14 14:41 | History & Physical Report ---
Date of Service October 14, 2023 Assessment & Plan (1) UTI (urinary tract infection): Plan: Admit to [facility] with telemetry Patient presenting from home with frequent falls and generalized weakness. In the ED, UA suggestive of UTI S/p IV ceftriaxone, continue with Does not appear septic Follow urine and blood cultures (2) Transfusion-dependent anemia: (3) Multiple myeloma: Plan: History of transfusion dependent anemia and multiple myeloma Received unit PRBC on 10/06 and 1 unit PRBC on 10/12 Hgb 6.5 today, will transfuse 2 unit PRBC with Lasix 40 mg IV in between units due to underlying ischemic cardiomyopathy and chronic diastolic CHF Consider palliative evaluation Follows with Dr. Pietro Sykes. Due to patient's advanced age, patient and family have elected for nonaggressive treatment of multiple myeloma. (4) Elevated lactic acid level: Plan: Lactic acid 2.9 -> 2.8 Likely due to severe anemia Would avoid IVF due to pulmonary vascular congestion seen on CXR Trend lactate (5) Elevated troponin: Plan: HS troponin 48 -> 45 No reports of chest pain, EKG demonstrates paced rhythm Likely demand ischemia in the setting of severe anemia Continue to trend troponin (6) Frequent falls: (7) Generalized weakness: Plan: Likely due to UTI and anemia PT/OT, case management -may need placement for rehab (8) Ischemic cardiomyopathy: (9) Tachy-lorna syndrome: (10) Status post implantation of automatic cardioverter/defibrillator (AICD): (11) CAD (coronary artery disease): Plan: CXR shows mild pulmonary vascular congestion Patient is saturating well on room air Will give Lasix 40 mg IV in between PRBC Echo 07/2023-EF 60 to 65% Continue beta-mike and ARB. Plavix recently discontinued due to epistaxis. (12) Type II diabetes mellitus: Plan: Hgb A1c 5.5 07/2023 Hold oral agents and utilize NovoLog per protocol while hospitalized, would allow for more labile control secondary to patient's advanced age (13) CKD stage 3 due to type 2 diabetes mellitus: Plan: Recent baseline creatinine high 1s Creatinine 2.1 today Follow renal functions (14) Moderate persistent asthma: Plan: Chronic, stable, no signs of acute exacerbation Continue home inhalers (15) BPH (benign prostatic hyperplasia): Plan: Chronic, stable Continue home meds DVT PROPHYLAXIS SCDs due to anemia and recent epistaxis Patient seen collaboration with Dr. Plasencia. I spent a total of 75 minutes coordinating, documenting, and providing care for this patient excluding time spent in the performance of separately billed services. This included personally reviewing all current laboratories and imaging studies, medication reconciliation, outpatient chart review, and discussion with specialists. Admission and Anticipated Discharge Date Admission Date: October 14, 2023 History of Present Illness Chief Complaint: Weakness, falls Primary Care Provider: Zenobia Lyon MD 88-year-old male with PMH DM type II, CKD stage III, moderate persistent asthma, CAD, ischemic cardiomyopathy, HTN, persistent atrial fibrillation, infrarenal AAA, chronic diastolic CHF, GERD, BPH, multiple myeloma, Alzheimer's dementia, and other problems listed below who presents to the ED for evaluation of frequent falls and generalized weakness. History is limited from the patient due to underlying dementia. History obtained from patient's son who is at the bedside and review of outpatient PCP records. Over the past 1 week, son reports patient has had several falls. Patient has been unable to get up from the ground. States that when he falls, he sometimes will fall asleep on the floor and has been lethargic. Also reporting urinary frequency. Patient with history of multiple myeloma with chronic transfusion dependent anemia. Patient received 2 unit PRBC on 10/06 and 1 unit PRBC on 10/12. Son reports patient's reported a fever of 102 this morning however he is unsure of the accuracy. Patient has had a very poor appetite which is unusual for him. No vomiting or diarrhea. No other symptoms reported. In the ED, labs show Hgb 6.5 and UA suggestive of UTI. Patient was given IV ceftriaxone and typed and crossed for 2 units of PRBCs. Allergies Allergy/AdvReac Type Severity Reaction Status Date / Time Sulfa (Sulfonamide Allergy Severe DYSUREA Verified 10/14/23 10:52 Antibiotics) PER [facility] prednisone Allergy Intermediate BLISTERS Verified 10/14/23 10:52 IN THROAT hydrocodone AdvReac Severe ALTERED Verified 10/14/23 10:52 MENTAL STATUS FELECIA Inhibitors AdvReac Intermediate Cough Verified 10/14/23 10:52 pseudoephedrine AdvReac Intermediate TEMP ELEV Verified 10/14/23 10:52 Home Medications Medication Instructions Recorded Confirmed Type albuterol sulfate 90 mcg/actuation 2 puff inhalation QID PRN 09/06/18 01/13/24 History aerosol inhaler (Proventil HFA) Shortness Of Breath digoxin 125 mcg (0.125 mg) tablet 125 mcg PO 3XWK 06/07/18 10/14/23 History magnesium oxide 400 mg (241.3 mg 400 mg PO PM 06/07/18 10/14/23 History magnesium) tablet potassium chloride 20 mEq 20 meq PO QAM 06/07/18 10/14/23 History tablet,extended release(part/cryst) (Klor-Con M) furosemide 40 mg tablet (Lasix) 40 mg PO QAM 04/25/19 10/14/23 History latanoprost 0.005 % eye drops 1 drp OPB QAM 03/24/20 10/14/23 History pantoprazole 40 mg tablet,delayed 40 mg PO QAM 10/22/21 10/14/23 History release ferrous sulfate 325 mg (65 mg 325 mg PO BID 08/28/22 10/14/23 History iron) tablet (FeroSul) losartan 50 mg tablet 50 mg PO QAM 08/28/22 10/14/23 History metoprolol succinate 50 mg 50 mg PO QAM 08/28/22 10/14/23 History tablet,extended release 24 hr multivitamin 1 tab PO DAILY 08/28/22 10/14/23 History methenamine hippurate 1 gram tablet 1 g PO BID 30 days #60 tabs 11/25/22 10/14/23 Rx glipizide 5 mg tablet, extended 5 mg PO DAILYBB 04/20/23 10/14/23 History release 24 hr dutasteride 0.5 mg capsule 0.5 mg PO QAM 08/22/23 10/14/23 History ondansetron HCl 4 mg tablet 4 mg PO Q6H PRN Nausea And Vomiting 08/22/23 10/14/23 History fluticasone 250 mcg-salmeterol 50 1 inh inhalation BID 10/14/23 10/14/23 History mcg/dose blistr powdr for inhalation sodium chloride 0.65 % nasal spray 0 spray NA Q1H PRN dry nasal 10/14/23 10/14/23 History aerosol (Saline Mist) passages Past Med/Surg History Medical History Epistaxis CKD stage 3 due to type 2 diabetes mellitus no specialist Type II diabetes mellitus NIDDM Peptic ulcer disease GI bleed Elevated prostate specific antigen (PSA) Multiple myeloma History of pacemaker Shingles Encounter for pre-operative examination Severe sepsis Dementia GI bleed per pt's > had 3 units PRBC's [facility] during admission in Jul 2021 Dementia mild at present Presence of combination internal cardiac defibrillator (ICD) and pacemaker follows w/ Dr. Sanford > [employer] > gets checked electronically > PMH provided by , eduardo when last checked in office. Chronic back pain Osteoarthritis Anemia History of colon polyps GERD (gastroesophageal reflux disease) Hearing deficit [place] Glaucoma Aortic aneurysm unsure of last ultrasound/scan -- no surgical intervention. Moderate aortic root dilatation noted on 2018 echo. No AAA noted on [address] COPD (chronic obstructive pulmonary disease) well controlled rare res inh use On home oxygen therapy 2 LPM QHS BPH (benign prostatic hyperplasia) Aortic valve insufficiency Moderate-severe per 11/2018 echo Ischemic cardiomyopathy EF normalized, most recently 55-60% on 11/2018 echo Dyslipidemia Persistent atrial fibrillation Anticoagulation contraindicated per cardiology > ICD Tachy-lorna syndrome S/p dual chamber pacer with upgrade to pacer/ICD 2014 HTN (hypertension) CAD (coronary artery disease) (08/21/14) S/p CABG July 2000 receiving KAUR graft to LAD, saphenous vein graft sequentially from the obtuse marginal to diagonal. S/p stenting of prox Cx 2013 Surgical History History of implantable cardioverter-defibrillator (ICD) placement History of tooth extraction History of esophagogastroduodenoscopy (EGD) History of tonsillectomy History of cataract surgery bilat History of prostate surgery non cancerous History of colonoscopy History of cardiac cath 1999 --> CABG 2013 - 1 stent - [facility] S/P CABG x 3 1999 S/P coronary artery stent placement July 2014 with stenting of the proximal circumflex Family History Grandmother Diabetes Mother Colon cancer Other Melanoma No family history of adverse response to anesthesia Social History Smoking Status: Former smoker Tobacco Type: Cigarettes Second Hand Exposure: No; Do You Dip or Chew Tobacco: No; Tobacco Cessation Education Requested by Patient: No Hx Alcohol Use: No Hx Substance Use: No Preferred Language: Greenlandic Communication Ability: Effective Communication Ability Comment: sun'aq despite b/l [place] All Purpose Clerk Required: No Beliefs That Will Affect Care: None marital status: Current Living Situation: Spouse How many Children do You have: 2 Other Information That Helps Us Care for You: No Feels Safe at Home: Yes Safety Concerns: Feels Safe At This Time Assistive Devices: Hearing Aid - Bilateral Physical Exam Constitutional: WD/WN, vitals as above no acute distress Eyes: PERRL, conjunctivae normal, anicteric sclerae ENMT: external ear and nose normal, oropharynx normal Respiratory: normal respiratory effort; no respiratory distress Auscultation: + diminished lung sounds Cardiovascular: Rate/Rhythm: regular rate and regular rhythm Vessels: normal peripheral pulses Extremities: no edema Gastrointestinal (Abdomen): normal bowel sounds, soft, nontender, no hepatosplenomegaly Musculoskeletal: no cyanosis or clubbing, extremities motor strength 5/5 Skin: no rashes, warm and dry Neurologic: PERRL, EOMI, accommodation nl, no face palsy, no dysarthria Psychiatric: Orientation: alert, oriented to person and oriented to place; + not oriented to time Cognition: + recent memory not intact Insight: + limited insight Results & Data Results & Data Vital Signs (Past 12 Hours) Vital Signs Temp Pulse Resp BP Pulse Ox O2 Del Method 10/14/23 13:53 36.8 C 73 20 140/61 95 10/14/23 13:23 36.9 C 73 20 146/72 H 97 10/14/23 13:08 37 C 74 22 125/60 95 10/14/23 12:52 36.9 C 70 18 119/78 97 10/14/23 11:30 70 25 H 122/55 L 90 10/14/23 10:00 74 22 134/61 93 10/14/23 09:24 71 10/14/23 09:18 36.8 C 79 26 H 136/65 93 Room Air Laboratory Results Short CBC 10/14/23 Range/Units 09:05 WBC 6.37 (4.8-10.8) K/ul Hgb 6.5 L* (14.0-18.0) g/dl Hct 21.3 L (42.0-52.0) % Plt Count 146 (130-400) K/uL BMP 10/14/23 09:05 Sodium 139 Potassium 4.4 Chloride 100 Carbon Dioxide 23 BUN 54 H Creatinine 2.12 H Glucose 203 H Calcium 8.5 L Liver Function 10/14/23 Range/Units 09:05 Total Bilirubin 0.8 (0.2-1.0) mg/dl AST 27 (13-39) U/L ALT 23 (7-52) U/L Alkaline Phosphatase 57 (34-104) U/L Albumin 2.7 L (3.4-5.0) gm/dl Urine 10/14/23 Range/Units 09:30 Urine Color Yellow Urine Appearance Cloudy A (Clear) Urine pH 5.5 (4.5-7.5) Ur Specific [place] 1.016 (1.000-1.030) Urine Protein 2+ H (Negative) Urine Glucose (UA) Negative (Negative) Diagnostic Findings Chest X-Ray 10/14/23 09:18 SINGLE VIEW CHEST CLINICAL HISTORY: Generalized weakness. FINDINGS: 2 AP, portable, upright chest radiographs are compared to study dated 09/30/2023. The patient is status post midline sternotomy. A multilead cardiac AICD is unchanged in position and partially obscures the left upper chest. The heart is enlarged noting atherosclerotic calcification of the thoracic aorta. There is mild pulmonary vascular congestion. Chronic interstitial thickening is similar to previous. There is bibasilar scarring/atelectasis. No airspace consolidation or large pleural effusion is identified. No pneumothorax is seen. The skeletal structures are osteopenic. The bony thorax is grossly intact. IMPRESSION: 1. Cardiomegaly and AICD with pulmonary vascular congestion. 2. No airspace consolidation or large pleural effusion is identified. ACT 112: Negative or not required by law. Electronically signed by: Troy Wood M.D. 10/14/2023 9:39 AM Code Status & VTE Plan VTE Prophylaxis Plan VTE Prophylaxis will be ordered: Yes Supervising Physician Co-Signing Physician Notes 88-year-old male with PMH of close MS dementia, persistent A-fib, multiple myeloma and transfusion dependent anemia presented to the ED with 2 days complaint of falls, shortness of breath, weak, confusion, loss of appetite. Labs reviewed, hemoglobin 65, UA suggestive of UTI. CXR with mild pulmonary vascular congestion. Transfuse 2 unit PRBC, H&H at 10 PM. Transfuse if hemoglobin less than 7 or symptomatic anemia. IV Lasix in between transfusion. Rocephin for UTI. Delirium precaution for metabolic encephalopathy. Prn zyprexa for agitation. Hopeful it improves with correction of his UTI Stroke elevated likely secondary to anemia. Trend troponins. EKG with ventricular paced rhythm. On Exam: GENERAL: Awake Lethargic, demented, [place]. NAD, on RA. appears ill/weak/frail. HEENT: + pallor, no icterus. Pupils equal, round and reactive to light. Oral mucosa moist. NECK: No JVD, no neck masses. HEART: S1 and S2 heard. Regular rate and rhythm. No murmur, no gallop. RESPIRATORY SYSTEM: Normal AP diameter. No accessory muscle use. No wheezing, no crackles. ABDOMEN: Soft, bowel sounds present, nontender, no distention. CENTRAL NERVOUS SYSTEM: No facial droop. Speech is clear. Obeys simple commands. Moves extremities. EXTREMITIES: No edema, no erythema seen. I have seen and examined the patient and have discussed the case with the provider above. I agree with the assessment and plan as stated.
[2023-10-14] MEDS: ACETAMINOPHEN 325 MG TAB PO PRN (16:45)
[2023-10-14] MEDS: OLANZapine 10 MG/2.1 ML SDV IM PRN (16:55)
[2023-10-14] MEDS: INSULIN ASPART PER UNIT CHARGE SC SCH (18:07)
[2023-10-14 19:31] LABS: Hematocrit (blood only) 22.1 % (42.0-52.0); Hemoglobin 6.9 g/dl (14.0-18.0)
--- NOTE | 2023-10-14 20:37 | Communication Note ---
Date of Service: October 14, 2023 Persistent lactic acidosis noted. Cefepime in place of ceftriaxone for now while CS pending for broader coverage.
[2023-10-14] MEDS: ALBUMIN 25% 25 GM/100 ML VIAL IV ONE (20:39)
[2023-10-14] MEDS: ACETAMINOPHEN 500 MG TAB PO STA (20:42)
[2023-10-14 20:55] LABS: A calco-baum cmplx NotReported Not Detected (NotDetected); Bact fragilis Not Reported Not Detected (NotDetected); Blood Culture Id Panel See PCR Comment (NotDetected); C auris Not Reported Not Detected (NotDetected); CTX-M Resistant Gene Not Detected (NotDetected); Calbicans Not Reported Not Detected (NotDetected); Candida glabrata Not Reported Not Detected (NotDetected); Candida krusei Not Reported Not Detected (NotDetected); Cneoformans/gatti Not Reported Not Detected (NotDetected); Cparapsilosis Not Reported Not Detected (NotDetected); E cloacae compx Not Reported Not Detected (NotDetected); Efaecalis Not Reported Not Detected (NotDetected); Efaecium Not Reported Not Detected (NotDetected); Enterobacterales DETECTED (NotDetected); Enterobacterales Not Reported DETECTED (NotDetected); Escherichia coli Not Reported DETECTED (NotDetected); H influenzae Not Reported Not Detected (NotDetected); IMP Resistant Gene Not Detected (NotDetected); K aerogenes Not Reported Not Detected (NotDetected); KPC Resistant Gene Not Detected (NotDetected); Koxytoca Not Reported Not Detected (NotDetected); Kpneumoniae grp Not Reported Not Detected (NotDetected); Lmonocyt Not Reported Not Detected (NotDetected); N meningitidis Not Reported Not Detected (NotDetected); NDM Resistant Gene Not Detected (NotDetected); OXA 48 Like Resistant Gene Not Detected (NotDetected); P aeruginosa Not Reported Not Detected (NotDetected); Proteus spp Not Reported Not Detected (NotDetected); Salmonella spp Not Reported Not Detected (NotDetected); Smarcescens Not Reported Not Detected (NotDetected); Staph lugdunensis Not Reported Not Detected (NotDetected); Staph spp. Not Reported Not Detected (NotDetected); Staphaureus Not Reported Not Detected (NotDetected); Staphepi Not Reported Not Detected (NotDetected); Stenmaltophilia Not Reported Not Detected (NotDetected); Strep agal(GrpB) Not Reported Not Detected (NotDetected); Strep pneum Not Reported Not Detected (NotDetected); Strep pyog (GrpA) Not Reported Not Detected (NotDetected); Strep spp Not Reported Not Detected (NotDetected); VIM Resistant Gene Not Detected (NotDetected); mcr-1 Colistin Resistant Gene Not Detected (NotDetected)
[2023-10-14] MEDS: CEFEPIME 1,000 MG in SYRINGE 0 ML IV SCH (20:55)
[2023-10-14] MEDS ORDERED: METHENAMINE HIPPURATE 1 GM TAB PO SCH (21:00)
[2023-10-14] MEDS: MAGNESIUM OXIDE 400 MG TAB PO SCH (22:10)
[2023-10-14] MEDS: FERROUS SULFATE 325 MG TAB PO SCH (22:10)
[2023-10-15] MEDS: FUROSEMIDE INJ 20 MG/2 ML VIAL IV ONE (01:47)
[2023-10-15 07:31] LABS: Hematocrit (blood only) 24.7 % (42.0-52.0); Mean Corpuscular Hemoglobin 30.9 pg (25.0-34.0); Mean Corpuscular Hgb Conc 32.4 g/dL (32.0-36.0); Mean Corpuscular Volume 95.4 fL (80.0-100.0); Mean Platelet Volume 9.2 fL (9.4-12.4); Platelet Count 114 K/uL (130-400); RDW Coefficient of Variation 19.4 % (11.5-14.5); RDW Standard Deviation 65.8 fL (36.4-46.3); Red Blood Count 2.59 M/uL (4.70-6.10); White Blood Count 6.42 K/ul (4.8-10.8)
[2023-10-15 07:48] LABS: BUN Creatinine Ratio 28.1 (10-20); Creatinine Clr Calc Pharmacy 27.1 ml/min; Est GFR (African American) 32.7 ml/min; Est GFR (Non-African American) 28.2 ml/min
[2023-10-15 08:18] LABS: Calcium 8.4 mg/dl (8.6-10.3)
[2023-10-15] MEDS: LOSARTAN POTASSIUM 50 MG TAB PO SCH (08:24)
[2023-10-15] MEDS: METOPROLOL SUCC 50MG EXT REL TAB PO SCH (08:24)
[2023-10-15] MEDS: LATANOPROST 0.005% OP SOLN 2.5 ML BTL OPB SCH (08:25)
[2023-10-15] MEDS: PANTOprazole 40 MG TAB PO SCH (08:25)
[2023-10-15] MEDS: FINASTERIDE 5 MG TAB PO SCH (08:25)
[2023-10-15] MEDS: FLUTICASONE/VILANTEROL 200/25MCG 14 PUFFS/INHALER INH SCH (08:25)
[2023-10-15] MEDS: FUROSEMIDE 40 MG TAB PO SCH (08:25)
[2023-10-15] MEDS: POTASSIUM CHLORIDE CRTAB 20 MEQ TABCR PO SCH (08:27)
[2023-10-15] MEDS ORDERED: cefTRIAXone SODIUM 2,000 MG in DEXTROSE 5 % MINI-B 50 ML IV SCH (11:00)
--- NOTE | 2023-10-15 14:00 | Hospitalist Progress Note ---
Date of Service October 15, 2023 Assessment & Plan (1) Acute UTI: Plan 88-year-old male with PMH of T2DM, CKD stage III, moderate persistent asthma, CAD, ischemic cardiomyopathy, HTN, persistent A-fib, infrarenal AAA, chronic diastolic CHF, GERD, BPH, multiple myeloma, Alzheimer's dementia, transfusion dependent anemia presented to the ED with 2 days complaint of falls, shortness of breath, weakness, confusion, loss of appetite. He is being managed for the following: UTI Metabolic encephalopathy: Likely secondary to above Severe sepsis: Not POA but evident later in the day of admission with increased temperature/respiratory rate/lactic acid. Vitals are stable, lactic acidosis resolved. Gram-negative bacteremia Patient presented with 2 days of confusion/poor appetite/getting weak/falls Admitting UA suggestive of UTI, admitting blood culture suggestive of gram- negative bacteremia. Patient was started on Rocephin 10/14, changed to cefepime 10/14 after bl cx result. Temperature is coming down, patient feels better. Follow culture and sensitivity. ID consult. Repeat blood culture 10/15. Delirium precaution, patient appears to have resolved back to baseline mentation. As needed Zyprexa for agitation. Transfusion dependent anemia History of multiple myeloma Recurrent falls Generalized weakness History of transfusion dependent anemia and multiple myeloma. Follows Dr. Pietro Syeks, due to patient's advanced age patient and family have elected for nonaggressive treatment of multiple myeloma. Patient came in with progressive weakness, admitting hemoglobin of 6.5. CXR with mild pulmonary vascular congestion. Status post 4 unit PRBC transfusion. H&H 8.0 today. Continue with home Lasix, give additional IV Lasix with transfusion. Weakness and falls secondary to deconditioning secondary to underlying condition. PT/OT. May need placement. Elevated troponin: Likely secondary to acute illness. Demand ischemia. Patient with no chest pain. Continue telemetry. Troponin flat trended. Other chronic medical conditions: Continue with/resume home meds as and when able. Ischemic cardiomyopathy/tachybradycardia syndrome/CAD/status post implantation of AICD: July 2023 echo with EF of 60 to 65%. Continue beta- mike and ARB. Plavix recently discontinued due to epistaxis. T2DM: July 2023 A1c of 5.5. Sliding scale insulin while in the hospital. CKD stage III: Baseline creatinine high ones. Creatinine close to his baseline. Monitor. Moderate persistent asthma: Chronic, stable. Continue home inhalers. BPH: Chronic, stable. Continue home meds. DVT prophylaxis: SCDs DNR/DNI Admission and Anticipated Discharge Date Admission Date: October 14, 2023 Subjective Patient was seen and examined at bedside. Patient was sitting up in bed, on room air, resting comfortably, not in any acute distress. Patient is alert and awake, has dementia at baseline, denies chest pain/headache/dizziness/sore throat/cough. Per RN, patient was confused overnight, patient is eating okay, has not moved bowel. Physical Exam Physical Exam: GENERAL: Awake alert, demented, [place]. NAD, on RA. appears ill/weak/frail. HEENT: no pallor, no icterus. Pupils equal, round and reactive to light. Oral mucosa moist. NECK: No JVD, no neck masses. HEART: S1 and S2 heard. Regular rate and rhythm. No murmur, no gallop. RESPIRATORY SYSTEM: Normal AP diameter. No accessory muscle use. No wheezing, no crackles. ABDOMEN: Soft, bowel sounds present, nontender, no distention. CENTRAL NERVOUS SYSTEM: No facial droop. Speech is clear. Obeys simple commands. Moves extremities. EXTREMITIES: No edema, no erythema seen. Results & Data Results & Data Vital Signs (Past 12 Hours) Vital Signs Temp Pulse Pulse Resp BP BP Pulse Ox 10/15/23 11:13 37.1 C 70 20 145/67 H 93 10/15/23 11:00 10/15/23 07:40 37.7 C H 77 20 152/69 H 92 10/15/23 07:24 70 10/15/23 05:16 36.8 C 71 18 153/67 H 97 10/15/23 04:45 37.0 C 73 18 159/66 H 100 10/15/23 03:45 36.9 C 69 16 137/67 98 10/15/23 03:15 36.7 C 78 18 162/67 H 94 10/15/23 03:00 36.4 C L 70 18 146/68 H 100 10/15/23 02:59 36.4 C L 70 18 146/68 H 100 10/15/23 02:40 36.5 C 72 18 150/67 H 92 10/15/23 02:31 36.5 C 72 18 150/67 H 92 O2 Del Method O2 Flow Rate 10/15/23 11:13 Room Air 10/15/23 11:00 Room Air 10/15/23 07:40 Room Air 10/15/23 07:24 10/15/23 05:16 3 10/15/23 04:45 10/15/23 03:45 10/15/23 03:15 10/15/23 03:00 10/15/23 02:59 10/15/23 02:40 10/15/23 02:31
--- NOTE | 2023-10-15 20:41 | Electrocardiogram Report ---
Test Reason : Blood Pressure : / mmHG Vent. Rate : 071 BPM Atrial Rate : 030 BPM P-R Int : 000 ms QRS Dur : 150 ms QT Int : 420 ms P-R-T Axes : 000 227 023 degrees QTc Int : 456 ms Ventricular-paced rhythm Underlying atrial fibrillation Abnormal ECG When compared with ECG of 13-SEP-2023 16:28, Vent. rate has decreased BY 22 BPM Confirmed by Ernesto Horta ([id number]) on 10/15/2023 8:41:25 PM Referred By: REFERRED SELF Confirmed By:Ernesto Horta
[2023-10-16] MEDS: METOPROLOL SUCC 50MG EXT REL TAB PO STA (01:24)
[2023-10-16 01:32] LABS: Basophils # (auto) 0.02 K/uL (0.00-0.20); Basophils % (auto) 0.3 %; Eosinophils # (auto) 0.09 K/uL (0.00-0.50); Eosinophils % (auto) 1.4 %; Hematocrit (blood only) 23.7 % (42.0-52.0); Hemoglobin 7.4 g/dl (14.0-18.0); Immature Granulocytes # (auto) 0.04 K/uL (0.01-0.20); Immature Granulocytes % (auto) 0.6 %; Lymphocytes # (auto) 0.65 K/uL (1.20-3.40); Lymphocytes % (auto) 10.3 %; Mean Corpuscular Hemoglobin 30.5 pg (25.0-34.0); Mean Corpuscular Hgb Conc 31.2 g/dL (32.0-36.0); Mean Corpuscular Volume 97.5 fL (80.0-100.0); Mean Platelet Volume 9.9 fL (9.4-12.4); Monocytes # (auto) 1.15 K/uL (0.11-0.59); Monocytes % (auto) 18.2 %; Neutrophils # (auto) 4.38 K/uL (1.40-6.50); Neutrophils % (auto) 69.2 %; Platelet Count 136 K/uL (130-400); RDW Coefficient of Variation 18.9 % (11.5-14.5); RDW Standard Deviation 66.5 fL (36.4-46.3); Red Blood Count 2.43 M/uL (4.70-6.10); White Blood Count 6.33 K/ul (4.8-10.8)
[2023-10-16 01:39] LABS: BUN Creatinine Ratio 27.4 (10-20); Creatinine Clr Calc Pharmacy 23.5 ml/min; Est GFR (African American) 27.5 ml/min; Est GFR (Non-African American) 23.8 ml/min; Magnesium 2.3 mg/dl (1.7-2.4); Phosphorus 3.4 mg/dl (2.5-4.9); Potassium 3.9 mmol/L (3.5-5.1)
[2023-10-16 01:51] LABS: RBC Morphology Unremarkable
[2023-10-16] MEDS ORDERED: SODIUM CHLORIDE 0.9% 250 ML IV PRN (02:10)
[2023-10-16] MEDS: POTASSIUM CHLORIDE CRTAB 20 MEQ TABCR PO STA (03:34)
[2023-10-16 13:35] LABS: Hematocrit (blood only) 27.4 % (42.0-52.0); Hemoglobin 8.8 g/dl (14.0-18.0)
--- NOTE | 2023-10-16 15:23 | Hospitalist Progress Note ---
Date of Service October 16, 2023 Assessment & Plan (1) Acute UTI: Plan 88-year-old male with PMH of T2DM, CKD stage III, moderate persistent asthma, CAD, ischemic cardiomyopathy, HTN, persistent A-fib, infrarenal AAA, chronic diastolic CHF, GERD, BPH, multiple myeloma, Alzheimer's dementia, transfusion dependent anemia presented to the ED with 2 days complaint of falls, shortness of breath, weakness, confusion, loss of appetite. He is being managed for the following: UTI Metabolic encephalopathy: Likely secondary to above Severe sepsis: Not POA but evident later in the day of admission with increased temperature/respiratory rate/lactic acid. Vitals are stable, lactic acidosis resolved. Gram-negative bacteremia Patient presented with 2 days of confusion/poor appetite/getting weak/falls Admitting UA suggestive of UTI, admitting blood culture suggestive of gram- negative bacteremia. Patient was started on Rocephin 10/14, changed to cefepime 10/14 after bl cx result --> back to rocephin 10/16 after C/S was out. Afebrile, patient feels better. Follow culture and sensitivity. ID consult. Repeat blood culture 10/15. Delirium precaution, patient appears to have resolved back to baseline mentation. As needed Zyprexa for agitation. Transfusion dependent anemia History of multiple myeloma Recurrent falls Generalized weakness History of transfusion dependent anemia and multiple myeloma. Follows Dr. Pietro Sykes, due to patient's advanced age patient and family have elected for nonaggressive treatment of multiple myeloma. Patient came in with progressive weakness, admitting hemoglobin of 6.5. CXR with mild pulmonary vascular congestion. Status post 4 unit PRBC transfusion. H&H stable around 8.0 today. Continue with home Lasix, give additional IV Lasix with transfusion. Weakness and falls secondary to deconditioning secondary to underlying condition. PT/OT. May need placement. Elevated troponin: Likely secondary to acute illness. Demand ischemia. Patient with no chest pain. Continue telemetry. Troponin flat trended. Other chronic medical conditions: Continue with/resume home meds as and when able. Ischemic cardiomyopathy/tachybradycardia syndrome/CAD/status post implantation of AICD: July 2023 echo with EF of 60 to 65%. Continue beta- mike and ARB. Plavix recently discontinued due to epistaxis. T2DM: July 2023 A1c of 5.5. Sliding scale insulin while in the hospital. CKD stage III: Baseline creatinine high ones. Creatinine close to his basel ine. Monitor. Moderate persistent asthma: Chronic, stable. Continue home inhalers. BPH: Chronic, stable. Continue home meds. DVT prophylaxis: SCDs DNR/DNI Admission and Anticipated Discharge Date Admission Date: October 14, 2023 Subjective Patient was seen and examined at bedside. Patient was sitting up in chair, on room air, resting comfortably, not in any acute distress. Patient is alert and awake, has dementia at baseline, denies chest pain/headache/dizziness/sore throat/cough. Physical Exam Physical Exam: GENERAL: Awake alert, demented, [place]. NAD, on RA. appears ill/weak/frail. HEENT: no pallor, no icterus. Pupils equal, round and reactive to light. Oral mucosa moist. NECK: No JVD, no neck masses. HEART: S1 and S2 heard. Regular rate and rhythm. No murmur, no gallop. RESPIRATORY SYSTEM: Normal AP diameter. No accessory muscle use. No wheezing, no crackles. ABDOMEN: Soft, bowel sounds present, nontender, no distention. CENTRAL NERVOUS SYSTEM: No facial droop. Speech is clear. Obeys simple commands. Moves extremities. EXTREMITIES: No edema, no erythema seen. Results & Data Results & Data Vital Signs (Past 12 Hours) Vital Signs Temp Pulse Pulse Resp BP BP Pulse Ox 10/16/23 14:52 36.8 C 79 20 156/70 H 96 10/16/23 14:04 70 10/16/23 11:37 37.2 C 69 20 118/64 94 10/16/23 08:45 10/16/23 07:56 37.5 C 67 20 148/69 H 92 10/16/23 05:33 37.1 C 70 18 149/74 H 70 L 10/16/23 05:00 36.7 C 71 18 151/72 H 94 10/16/23 04:00 36.6 C 68 18 153/75 H 95 10/16/23 03:30 36.8 C 73 18 153/77 H 96 O2 Del Method 10/16/23 14:52 Room Air 10/16/23 14:04 10/16/23 11:37 Room Air 10/16/23 08:45 Room Air 01/15/24 07:56 Room Air 10/16/23 05:33 10/16/23 05:00 10/16/23 04:00 10/16/23 03:30
[2023-10-16] MEDS: SODIUM CHLORIDE 0.9% 1,000 ML IV SCH (16:15)
[2023-10-16] MEDS: DIGOXIN 0.125 MG TAB PO SCH (16:15)
[2023-10-16] MEDS: cefTRIAXone SODIUM 2,000 MG in DEXTROSE 5 % MINI-B 50 ML IV SCH (21:25)
[2023-10-17 06:24] LABS: Hematocrit (blood only) 24.5 % (42.0-52.0); Mean Corpuscular Hemoglobin 31.3 pg (25.0-34.0); Mean Corpuscular Hgb Conc 32.7 g/dL (32.0-36.0); Mean Corpuscular Volume 95.7 fL (80.0-100.0); Mean Platelet Volume 10.3 fL (9.4-12.4); Platelet Count 160 K/uL (130-400); RDW Coefficient of Variation 18.6 % (11.5-14.5); RDW Standard Deviation 63.9 fL (36.4-46.3); Red Blood Count 2.56 M/uL (4.70-6.10); White Blood Count 5.25 K/ul (4.8-10.8)
[2023-10-17 06:25] LABS: BUN Creatinine Ratio 34.3 (10-20); Calcium 8.1 mg/dl (8.6-10.3); Creatinine Clr Calc Pharmacy 32.5 ml/min; Est GFR (African American) 40.8 ml/min; Est GFR (Non-African American) 35.2 ml/min; Potassium 3.7 mmol/L (3.5-5.1)
[2023-10-17] MEDS: METOPROLOL SUCC 50MG EXT REL TAB PO SCH (08:50)
[2023-10-17] MEDS: POTASSIUM CHLORIDE CRTAB 20 MEQ TABCR PO SCH (08:55)
--- NOTE | 2023-10-17 16:24 | Hospitalist Progress Note ---
Date of Service October 17, 2023 Assessment & Plan (1) Acute UTI: Plan 88-year-old male with PMH of T2DM, CKD stage III, moderate persistent asthma, CAD, ischemic cardiomyopathy, HTN, persistent A-fib, infrarenal AAA, chronic diastolic CHF, GERD, BPH, multiple myeloma, Alzheimer's dementia, transfusion dependent anemia presented to the ED with 2 days complaint of falls, shortness of breath, weakness, confusion, loss of appetite. He is being managed for the following: UTI Metabolic encephalopathy: Likely secondary to above Severe sepsis: Not POA but evident later in the day of admission with increased temperature/respiratory rate/lactic acid. Vitals are stable, lactic acidosis resolved. Gram-negative bacteremia Patient presented with 2 days of confusion/poor appetite/getting weak/falls Admitting UA suggestive of UTI, admitting blood culture suggestive of gram- negative bacteremia. Patient was started on Rocephin 10/14, changed to cefepime 10/14 after bl cx result --> back to rocephin 10/16 after C/S was out. Afebrile, patient feels better. Follow culture and sensitivity. ID consult. Repeat blood culture 10/15. Delirium precaution, patient appears to have resolved back to baseline mentation. As needed Zyprexa for agitation. Transfusion dependent anemia History of multiple myeloma Recurrent falls Generalized weakness History of transfusion dependent anemia and multiple myeloma. Follows Dr. Pietro Sykes, due to patient's advanced age patient and family have elected for nonaggressive treatment of multiple myeloma. Patient came in with progressive weakness, admitting hemoglobin of 6.5. CXR with mild pulmonary vascular congestion. Status post 4 unit PRBC transfusion. H&H stable around 8.0 today. Continue with home Lasix, give additional IV Lasix with transfusion. Weakness and falls secondary to deconditioning secondary to underlying condition. PT/OT. May need placement. Elevated troponin: Likely secondary to acute illness. Demand ischemia. Patient with no chest pain. Continue telemetry. Troponin flat trended. DAPHNE over CKD: Cr uptrended, held lasix (and KCL) and losartan, s/p gentle ivf. Cr improved. Other chronic medical conditions: Continue with/resume home meds as and when able. Ischemic cardiomyopathy/tachybradycardia syndrome/CAD/status post impla ntation of AICD: July 2023 echo with EF of 60 to 65%. Continue beta-mike and ARB. Plavix recently discontinued due to epistaxis. T2DM: July 2023 A1c of 5.5. Sliding scale insulin while in the hospital. CKD stage III: Baseline creatinine high ones. Creatinine close to his baseline. Monitor. Moderate persistent asthma: Chronic, stable. Continue home inhalers. BPH: Chronic, stable. Continue home meds. DVT prophylaxis: SCDs DNR/DNI Dispo: pt/ot, cm to assist. ID recs pending. Admission and Anticipated Discharge Date Admission Date: October 14, 2023 Subjective Patient was seen and examined at bedside. Patient was sitting up in chair, on room air, resting comfortably, not in any acute distress. Patient is alert and awake, has dementia at baseline, denies chest pain/headache/dizziness/sore throat/cough. Physical Exam Physical Exam: GENERAL: Awake alert, demented, [place]. NAD, on RA. appears ill/weak/frail. HEENT: no pallor, no icterus. Pupils equal, round and reactive to light. Oral mucosa moist. NECK: No JVD, no neck masses. HEART: S1 and S2 heard. Regular rate and rhythm. No murmur, no gallop. RESPIRATORY SYSTEM: Normal AP diameter. No accessory muscle use. No wheezing, no crackles. ABDOMEN: Soft, bowel sounds present, nontender, no distention. CENTRAL NERVOUS SYSTEM: No facial droop. Speech is clear. Obeys simple commands. Moves extremities. EXTREMITIES: No edema, no erythema seen. Results & Data Results & Data Vital Signs (Past 12 Hours) Vital Signs Temp Pulse Pulse Resp BP Pulse Ox O2 Del Method 10/17/23 14:09 79 10/17/23 11:13 Room Air 10/17/23 10:47 36.9 C 69 22 147/63 H 95 Room Air 10/17/23 07:08 36.9 C 75 18 154/68 H 94 Room Air 10/17/23 05:57 71
--- NOTE | 2023-10-17 17:16 | Infectious Disease Consult ---
Date of Service October 17, 2023 Telehealth Information I performed this visit using a real-time telehealth connection between my location and the patients location ([facility]). After connecting through interactive tele-video, patient was identified by name and date of and/or wristband check.Patient (or authorized healthcare business process representative) was informed that this was a telemedicine visit and it was being conducted confidentially over secure lines. My office door was closed and no one else was present in the room with me.Patient (or authorized healthcare business process representative) provided consent to proceed with the visit, expressed an understanding of privacy and security of the telemedicine visit, and gave permission to have a hospital business process representative in the room in order to assist with the visit and to conduct portions of the visit, as needed. I informed the patient (or authorized healthcare business process representative) that I reviewed their record and presented the opportunity for them to ask any questions regarding the visit today. The patient agreed to participate. Assessment & Plan (1) E coli bacteremia: Plan: Ceftriaxone is a reasonable choice while the patient is admitted (check the dose with your pharmacist - I prefer 2g q24h for bacteremia). Before finalizing the ABX plan, I recommend to image the A/P in order to rule out a complication (eg renal abscess). I will defer the specific modality to the primary service/Radiology. If there is no abscess, the duration of ABX will be about 10 days total. We may be able to consider PO Bactrim but first the patient's allergy will need to be clarified ("dysuria" is not an allergy). If Bactrim is not an option, we can complete the course with IV ceftriaxone. The above recommendations are not final. ID coverage changes frequently. Use the on-call schedule to find out who is covering your facility. Then, contact ID for updated recommendations. History of Present Illness History of Present Illness The patient was admitted for generalized weakness . Workup revealed FQ-R Ecoli bacteremia/bacteruria. The patient is being treated with ceftriaxone. Allergies Allergy/AdvReac Type Severity Reaction Status Date / Time Sulfa (Sulfonamide Allergy Severe DYSUREA Verified 10/14/23 10:52 Antibiotics) PER [facility] prednisone Allergy Intermediate BLISTERS Verified 10/14/23 10:52 IN THROAT hydrocodone AdvReac Severe ALTERED Verified 10/14/23 10:52 MENTAL STATUS FELECIA Inhibitors AdvReac Intermediate Cough Verified 10/14/23 10:52 pseudoephedrine AdvReac Intermediate TEMP ELEV Verified 10/14/23 10:52 Home Medications Medication Instructions Recorded Confirmed Type albuterol sulfate 90 mcg/actuation 2 puff inhalation QID PRN 06/07/18 10/14/23 History aerosol inhaler (Proventil HFA) Shortness Of Breath digoxin 125 mcg (0.125 mg) tablet 125 mcg PO 3XWK 06/07/18 10/14/23 History magnesium oxide 400 mg (241.3 mg 400 mg PO PM 06/07/18 10/14/23 History magnesium) tablet potassium chloride 20 mEq 20 meq PO QAM 06/07/18 10/14/23 History tablet,extended release(part/cryst) (Klor-Con M) furosemide 40 mg tablet (Lasix) 40 mg PO QAM 04/25/19 10/14/23 History latanoprost 0.005 % eye drops 1 drp OPB QAM 03/24/20 10/14/23 History pantoprazole 40 mg tablet,delayed 40 mg PO QAM 10/22/21 10/14/23 History release ferrous sulfate 325 mg (65 mg 325 mg PO BID 08/28/22 10/14/23 History iron) tablet (FeroSul) losartan 50 mg tablet 50 mg PO QAM 08/28/22 10/14/23 History metoprolol succinate 50 mg 50 mg PO QAM 08/28/22 10/14/23 History tablet,extended release 24 hr multivitamin 1 tab PO DAILY 08/28/22 10/14/23 History methenamine hippurate 1 gram tablet 1 g PO BID 30 days #60 tabs 11/25/22 10/14/23 Rx glipizide 5 mg tablet, extended 5 mg PO DAILYBB 04/20/23 10/14/23 History release 24 hr dutasteride 0.5 mg capsule 0.5 mg PO QAM 08/22/23 10/14/23 History ondansetron HCl 4 mg tablet 4 mg PO Q6H PRN Nausea And Vomiting 08/22/23 10/14/23 History fluticasone 250 mcg-salmeterol 50 1 inh inhalation BID 10/14/23 10/14/23 History mcg/dose blistr powdr for inhalation sodium chloride 0.65 % nasal spray 0 spray NA Q1H PRN dry nasal 10/14/23 10/14/23 History aerosol (Saline Mist) passages Patient History Medical History Epistaxis CKD stage 3 due to type 2 diabetes mellitus no specialist Type II diabetes mellitus NIDDM Peptic ulcer disease GI bleed Elevated prostate specific antigen (PSA) Multiple myeloma History of pacemaker Shingles Encounter for pre-operative examination Severe sepsis Dementia GI bleed per pt's > had 3 units PRBC's [facility] during admission in Jul 2021 Dementia mild at present Presence of combination internal cardiac defibrillator (ICD) and pacemaker follows w/ Dr. Sanford > [employer] > gets checked electronically > PMH provided by , eduardo when last checked in office. Chronic back pain Osteoarthritis Anemia History of colon polyps GERD (gastroesophageal reflux disease) Hearing deficit [place] Glaucoma Aortic aneurysm unsure of last ultrasound/scan -- no surgical intervention. Moderate aortic root dilatation noted on 2018 echo. No AAA noted on [address] COPD (chronic obstructive pulmonary disease) well controlled rare res inh use On home oxygen therapy 2 LPM QHS BPH (benign prostatic hyperplasia) Aortic valve insufficiency Moderate-severe per 11/2018 echo Ischemic cardiomyopathy EF normalized, most recently 55-60% on 11/2018 echo Dyslipidemia Persistent atrial fibrillation Anticoagulation contraindicated per cardiology > ICD Tachy-lorna syndrome S/p dual chamber pacer with upgrade to pacer/ICD 2014 HTN (hypertension) CAD (coronary artery disease) (08/21/14) S/p CABG July 2000 receiving KAUR graft to LAD, saphenous vein graft sequentially from the obtuse marginal to diagonal. S/p stenting of prox Cx 2013 Surgical History History of implantable cardioverter-defibrillator (ICD) placement History of tooth extraction History of esophagogastroduodenoscopy (EGD) History of tonsillectomy History of cataract surgery bilat History of prostate surgery non cancerous History of colonoscopy History of cardiac cath 1999 --> CABG 2013 - 1 stent - [facility] S/P CABG x 3 1999 S/P coronary artery stent placement July 2014 with stenting of the proximal circumflex Family History Grandmother Diabetes Mother Colon cancer Other Melanoma No family history of adverse response to anesthesia Social History Smoking Status: Former smoker Tobacco Type: Cigarettes Second Hand Exposure: No; Do You Dip or Chew Tobacco: No; Tobacco Cessation Education Requested by Patient: No Hx Alcohol Use: No Hx Substance Use: No Preferred Language: Frisian Communication Ability: Effective Communication Ability Comment: [place] despite b/l [place] Heating Fixture Tender Required: No Beliefs That Will Affect Care: None marital status: Current Living Situation: Spouse How many Children do You have: 2 Other Information That Helps Us Care for You: No Feels Safe at Home: Yes Safety Concerns: Feels Safe At This Time Assistive Devices: Cane, Oxygen - at Night and Walker Review of Systems Very difficult (almost impossible) to obtain a full ROS due to pt [place] and video connection. Physical Exam Vitals: see EMR Exam limited due to constraints of telemedicine Gen/Constitutional: appears at stated age, NAD, nontoxic, sitting up in bed Head: AT, NC Eyes: sclera anicteric, no conjunctival injection ENT: MMM, trachea midline, very [place] Card: appears to be well-perfused Resp: not tachypneic, nml effort, symmetric chest rise, no accessory muscle use Derm: no visible diaphoresis, no visible rash, no visible jaundice Results & Data Vital Signs (Past 12 Hours) Vital Signs Temp Pulse Pulse Resp BP Pulse Ox O2 Del Method 10/17/23 14:09 79 10/17/23 11:13 Room Air 10/17/23 10:47 36.9 C 69 22 147/63 H 95 Room Air 10/17/23 07:08 36.9 C 75 18 154/68 H 94 Room Air 10/17/23 05:57 71 Laboratory Results Reviewed; see EMR Diagnostic Findings Spec: [id number] Collected: 10/14/23-937 Received: 10/14/23-[address]: Troy Pruett M.D. Source: Blood OV Order: Ordered: Blood Culture Comments: Comment Default is separate sites, same time Procedure Result Verified Site Blood Culture Aerobic Final 10/16/23-8131 Organism 1 Escherichia coli Sens Sensitivities to Follow Phoned positive Blood Culture Gram Stain report to chelsea martinez on 10/14/23 at 2110 [place] [id number]. [place] [id number]. E coli RX M.I.C. --- --------- Amox/Clav I 16/8 Ampicillin R >16 Amp/Sul I 16/8 Cefazolin S <=2 Cefepime S <=2 Ceftriaxone S <=1 Ciprofloxacin R >2 Ertapenem S <=0.5 Gentamicin R >8 Levofloxacin R >4 Meropenem S <=1 Tobramycin R >8 Trimeth/Sulfa S <=2/38 Pip/Tazo S <=16 S = SENSITIVE I = INTERMEDIATE R = RESISTANT Blood Culture Anaerobic Final 10/16/23-4305 Organism 1 Escherichia coli Sens Sensitivities to Follow Blood Culture PCR Panel If viewing in EMR, results available under LAB Serology tab. Phoned positive Blood Culture Gram Stain report to chelsea martinez on 10/14/23 at 2110 [place] [id number]. [place] [id number].
[2023-10-18 06:04] LABS: Hematocrit (blood only) 24.4 % (42.0-52.0); Hemoglobin 7.8 g/dl (14.0-18.0); Mean Corpuscular Volume 96.8 fL (80.0-100.0); Mean Platelet Volume 10.3 fL (9.4-12.4); Nucleated RBC # (auto) 0.02 K/uL (0.00-0.12); Nucleated RBC % (auto) 0.4 %; Platelet Count 166 K/uL (130-400); RDW Standard Deviation 62.4 fL (36.4-46.3); Red Blood Count 2.52 M/uL (4.70-6.10); White Blood Count 5.14 K/ul (4.8-10.8)
[2023-10-18 06:12] LABS: BUN Creatinine Ratio 30.9 (10-20); Calcium 8.3 mg/dl (8.6-10.3); Creatinine Clr Calc Pharmacy 33.3 ml/min; Est GFR (Non-African American) 36.3 ml/min
--- NOTE | 2023-10-18 14:09 | CT Scan Report ---
ABDOMEN AND PELVIS CT WITHOUT CONTRAST CT DOSE: 1430.05 mGy.cm HISTORY: Fever. r/o any collection/abscess TECHNIQUE: Multiaxial CT images of the abdomen and pelvis were performed without contrast. A dose lo wering technique was utilized adhering to the principles of ALARA. COMPARISON STUDY: Abdomen and pelvis CT 06/07/2018. FINDINGS: There is a trace right pleural effusion. The heart is enlarged. Pacemaker wires are partial ly visualized. Consolidation within the right lower lobe posteriorly favors compressive atelectasis f rom the pleural effusion. Stable 6 mm subpleural nodule within the left lower lobe on image 11. This is likely benign given the long-term stability. No pneumoperitoneum. No pneumatosis. Internal fixatio n hardware seen within the proximal left femur. There is an old moderate anterior wedge-shaped compre ssion deformity at T12. No acute fractures identified. Tiny scattered lucencies seen throughout the v isualized osseous structures. This could represent osteoporosis. Multiple myeloma could also have a s imilar appearance. There are small fat-containing bilateral inguinal hernias. Stable 4 cm hypodense l esion within the liver. This favors a cyst. The gallbladder is contracted. There is mild pericholecys tic edema/inflammatory change noted. The unenhanced pancreas and adrenal glands unremarkable. The spl een remains enlarged measuring 16 cm in length. No renal or ureteral stones. No hydronephrosis. Bilat eral renal hypodense lesions are incompletely characterized on this noncontrast study but favor cysts . These are similar to the prior study. Dominant lesion within the lower pole of the left kidney daysi ures 7 cm. There is a 3.4 cm infrarenal abdominal aortic aneurysm, unchanged. There is a 3 cm left co mmon iliac artery aneurysm, unchanged. No retroperitoneal or pelvic lymphadenopathy. No pelvic free f luid. The prostate gland is enlarged. Mild bladder wall thickening may be due to chronic outlet obstr uction. Suboptimal evaluation for bowel pathology due to the lack of intravenous and oral contrast. H owever, there is no definite bowel wall thickening or obstruction. Normal appendix. Colonic diverticu losis. No evidence for acute diverticulitis. Mild edema along the right paracolic gutter. This is of uncertain clinical significance. No loculated fluid collections to suggest an abscess. IMPRESSION: 1. No loculated fluid collections to suggest an abscess. 2. Trace right pleural effusion. 3. Cardiomegaly. 4. The gallbladder is contracted. There is mild pericholecystic edema/inflammatory change. This is no nspecific but could be due to the patient's diffuse edematous state or underlying hepatic pathology. Acute cholecystitis is considered less likely but not entirely excluded. Follow-up abdominal ultrasou nd or HIDA scan can be performed for further evaluation if clinically warranted. 5. Mild bladder wall thickening. This is likely due to chronic outlet obstruction from the enlarged p rostate gland. Recommend correlation with urinalysis. 6. No bowel wall thickening or obstruction. 7. Normal appendix. 8. Stable 3 cm left common iliac artery aneurysm and a stable 3.4 cm infrarenal abdominal aortic aneu rysm. 9. Stable splenomegaly. 10. Additional findings as described above. ACT 112: Negative or not required by law. Electronically signed by: Wyatt Leblanc M.D. 10/18/2023 2:08 PM
--- NOTE | 2023-10-18 15:24 | Hospitalist Progress Note ---
Date of Service October 18, 2023 Assessment & Plan (1) Acute UTI: Plan 88-year-old male with PMH of T2DM, CKD stage III, moderate persistent asthma, CAD, ischemic cardiomyopathy, HTN, persistent A-fib, infrarenal AAA, chronic diastolic CHF, GERD, BPH, multiple myeloma, Alzheimer's dementia, transfusion dependent anemia presented to the ED with 2 days complaint of falls, shortness of breath, weakness, confusion, loss of appetite. He is being managed for the following: UTI Metabolic encephalopathy: Likely secondary to above Severe sepsis: Not POA but evident later in the day of admission with increased temperature/respiratory rate/lactic acid. Vitals are stable, lactic acidosis resolved. E. coli bacteremia with multiple drug-resistant Patient presented with 2 days of confusion/poor appetite/getting weak/falls Admitting UA suggestive of UTI, admitting blood culture suggestive of gram- negative bacteremia. Patient was started on Rocephin 10/14, changed to cefepime 10/14 after bl cx result --> back to rocephin 10/16 after C/S was out. Afebrile, patient feels better. And repeat cultures have been negative Appreciate ID input recommendation to continue ceftriaxone for for a total of [address] abdomen pelvis did not show any evidence of intra-abdominal collection/abscess Patient remains afebrile and has been feeling a lot better Antibiotic can be changed to oral Bactrim to finish the course Transfusion dependent anemia History of multiple myeloma Recurrent falls Generalized weakness History of transfusion dependent anemia and multiple myeloma. Follows Dr. Pietro Sykes, due to patient's advanced age patient and family have elected for nonaggressive treatment of multiple myeloma. Patient came in with progressive weakness, admitting hemoglobin of 6.5. CXR with mild pulmonary vascular congestion. Status post 4 unit PRBC transfusion. Continue with home Lasix, give additional IV Lasix with transfusion. Weakness and falls secondary to deconditioning secondary to underlying condition. PT/OT. May need placement. Hemoglobin remains stable at 7.8 as of 10/18/2023 Elevated troponin: Likely secondary to acute illness. Demand ischemia. Patient with no chest pain. Continue telemetry. Troponin flat trended. DAPHNE over CKD: Cr uptrended, held lasix (and KCL) and losartan, s/p gentle ivf. Cr improved. Other chronic medical conditions: Continue with/resume home meds as and when able. Ischemic cardiomyopathy/tachybradycardia syndrome/CAD/status post implantation of AICD: July 2023 echo with EF of 60 to 65%. Continue beta- mike and ARB. Plavix recently discontinued due to epistaxis. T2DM: July 2023 A1c of 5.5. Sliding scale insulin while in the hospital. CKD stage III: Baseline creatinine high ones. Creatinine close to his baseline. Monitor. Moderate persistent asthma: Chronic, stable. Continue home inhalers. BPH: Chronic, stable. Continue home meds. DVT prophylaxis: SCDs DNR/DNI Dispo: pt/ot, cm to assist. Has had physical therapy and recommended SNF Admission and Anticipated Discharge Date Admission Date: October 14, 2023 Subjective 10/18/2023 The patient was seen and examined in medical telemetry unit He has been feeling much better and denies any symptoms No signs and symptoms of infection Has been getting better strength kelly Will have CT of the abdomen and pelvis as advised by the ID specialist Review of Systems Review of Systems: All systems reviewed and are unremarkable except as noted Physical Exam Physical Exam: Sitting on a chair without any acute distress Constitutional: well developed, well nourished, + ill appearing and + obese Eyes: PERRL, conjunctivae normal, anicteric sclerae ENMT: external ear and nose normal, oropharynx normal Neck: trachea midline, no thyromegaly Respiratory: no respiratory distress Auscultation: lungs clear to auscultation bilaterally Cardiovascular: Rate/Rhythm: regular rate and regular rhythm; not tachycardic Heart Sounds: normal S1 and normal S2; no murmur Extremities: no edema Gastrointestinal (Abdomen): Inspection/Auscultation: normal bowel sounds; abdomen not distended Percussion/Palpation: abdomen soft; abdomen nontender Musculoskeletal: No acute arthritis involving any joint Neurologic: normal touch/pain/proprioception and moves all extremities; no fo cecily motor deficits Lymphatic: no cervical or axillary lymphadenopathy Results & Data Results & Data Vital Signs (Past 12 Hours) Vital Signs Temp Pulse Pulse Resp BP Pulse Ox O2 Del Method 10/18/23 12:08 36.6 C 73 16 143/65 H 93 Room Air 10/18/23 08:21 72 10/18/23 08:04 36.6 C 74 16 163/73 H 93 Room Air 10/18/23 03:15 37.0 C 69 18 137/66 94 Room Air Laboratory Results Short CBC 10/18/23 Range/Units 05:03 WBC 5.14 (4.8-10.8) K/ul Hgb 7.8 L (14.0-18.0) g/dl Hct 24.4 L (42.0-52.0) % Plt Count 166 (130-400) K/uL BMP 10/18/23 05:03 Sodium 140 Potassium 4.0 Chloride 105 Carbon Dioxide 22 BUN 51 H Creatinine 1.65 H Glucose 111 H Calcium 8.3 L Medications Administered Current Inpatient Medications Acetaminophen (Acetaminophen 325 Mg Tab) 650 mg PO Q4H PRN PRN Reason: Pain or Fever Stop: 11/13/23 13:05 Last Admin: 10/15/23 20:41 Dose: 650 mg Dextrose (Dextrose 50% 50 Ml Syringe) 25 - 50 ml IV UD PRN; Protocol PRN Reason: Hypoglycemia Protocol Stop: 11/13/23 14:38 Digoxin (Digoxin 0.125 Mg Tab) 0.125 mg PO [id number] [facility] Stop: 11/15/23 15:59 Last Admin: 10/16/23 16:15 Dose: 0.125 mg Ferrous Sulfate (Ferrous Sulfate 325 Mg Tab) 325 mg PO BID [facility] Stop: 11/13/23 20:59 Last Admin: 10/18/23 09:38 Dose: 325 mg Finasteride (Finasteride 5 Mg Tab) 5 mg PO QAM [facility] Stop: 11/14/23 08:59 Last Admin: 10/18/23 09:39 Dose: 5 mg Fluticasone/Vilanterol (Fluticasone/Vilanterol 200/25mcg 14 Puffs/Inhaler) 1 puffs INH DAILY [facility] Stop: 11/14/23 08:59 Last Admin: 10/18/23 09:39 Dose: 1 puffs Furosemide (Furosemide 40 Mg Tab) 40 mg PO QAM [facility] Stop: 11/14/23 08:59 Last Admin: 10/18/23 09:39 Dose: 40 mg Glucagon (Glucagon For Inj 1 Mg Vial) 1 mg SQ UD PRN; Protocol PRN Reason: Hypoglycemia Protocol Stop: 11/13/23 14:38 Glucose (Glucose 40% Gel 15 Gm Tube) 15 - 30 gm PO UD PRN; Protocol PRN Reason: Hypoglycemia Protocol Stop: 11/13/23 14:38 Glucose (Glucose 10 Tab/Tube) 4 - 8 tab PO UD PRN; Protocol PRN Reason: Hypoglycemia Treatment Stop: 11/13/23 14:38 Ceftriaxone Sodium 2,000 mg/ (Dextrose) 50 mls @ 100 mls/hr IV Q24H [facility] Stop: 10/27/23 20:29 Last Infusion: 10/17/23 20:01 Dose: Infused Insulin Aspart (Insulin Aspart Per Unit Charge) 0 units SC ACHS [facility] Stop: 11/13/23 16:29 Last Admin: 10/18/23 12:49 Dose: 2 units Latanoprost (Latanoprost 0.005% Op Soln 2.5 Ml Btl) 1 drops OPB [facility] Stop: 11/14/23 08:59 Last Admin: 10/18/23 09:39 Dose: 1 drops Losartan Potassium (Losartan Potassium 50 Mg Tab) [facility] [place] Stop: 11/14/23 08:59 Last Admin: 10/18/23 09:40 Dose: 50 mg Magnesium Oxide (Magnesium Oxide 400 Mg Tab) 400 mg PO PM [facility] Stop: 11/13/23 20:59 Last Admin: 10/17/23 19:35 Dose: 400 mg Metoprolol Succinate (Metoprolol Succ 50mg Ext Rel Tab) 50 mg PO [facility] Stop: 11/16/23 08:59 Last Admin: 10/18/23 09:41 Dose: 50 mg Miscellaneous (Carbohydrates For Hypoglycemia ) 15 - 30 gm PO UD PRN PRN Reason: Hypoglycemia Protocol Stop: 11/13/23 14:38 Olanzapine (Olanzapine 10 Mg/2.1 Ml Sdv) 5 mg IM BID PRN PRN Reason: agitation Stop: 11/13/23 20:59 Last Admin: 10/14/23 16:55 Dose: 5 mg Pantoprazole Sodium (Pantoprazole 40 Mg Tab) [facility] [place] Stop: 11/14/23 08:59 Last Admin: 10/18/23 09:41 Dose: 40 mg Potassium Chloride (Potassium Chloride Crtab 20 Meq Tabcr) 20 meq [facility] [place] Stop: 11/16/23 08:59 Last Admin: 10/18/23 09:41 Dose: 20 meq
[2023-10-19] MEDS: FUROSEMIDE INJ 20 MG/2 ML VIAL IV ONE (04:46)
[2023-10-19] MEDS: ALBUT/IPRATROP 3MG/0.5MG NEB 3 ML VIAL NEB STA (04:49)
[2023-10-19 05:58] LABS: Basophils # (auto) 0.01 K/uL (0.00-0.20); Basophils % (auto) 0.2 %; Eosinophils # (auto) 0.21 K/uL (0.00-0.50); Eosinophils % (auto) 3.8 %; Hematocrit (blood only) 23.2 % (42.0-52.0); Hemoglobin 7.3 g/dl (14.0-18.0); Immature Granulocytes # (auto) 0.06 K/uL (0.01-0.20); Immature Granulocytes % (auto) 1.1 %; Mean Corpuscular Hemoglobin 30.9 pg (25.0-34.0); Mean Corpuscular Hgb Conc 31.5 g/dL (32.0-36.0); Mean Corpuscular Volume 98.3 fL (80.0-100.0); Mean Platelet Volume 9.9 fL (9.4-12.4); Monocytes # (auto) 0.58 K/uL (0.11-0.59); Monocytes % (auto) 10.4 %; Neutrophils # (auto) 3.71 K/uL (1.40-6.50); Neutrophils % (auto) 66.5 %; Nucleated RBC # (auto) 0.03 K/uL (0.00-0.12); Nucleated RBC % (auto) 0.5 %; Platelet Count 190 K/uL (130-400); RDW Standard Deviation 63.4 fL (36.4-46.3); Red Blood Count 2.36 M/uL (4.70-6.10); White Blood Count 5.57 K/ul (4.8-10.8)
[2023-10-19 06:17] LABS: BUN Creatinine Ratio 30.9 (10-20); Calcium 8.4 mg/dl (8.6-10.3); Creatinine Clr Calc Pharmacy 33.3 ml/min; Est GFR (Non-African American) 36.3 ml/min; Potassium 3.9 mmol/L (3.5-5.1)
[2023-10-19 06:21] LABS: Polychromasia 1+; Rouleaux 1+
--- NOTE | 2023-10-19 08:28 | XRay Report ---
SINGLE VIEW CHEST CLINICAL HISTORY: Dyspnea FINDINGS: An AP, portable, upright chest radiograph is compared to study dated 10/14/2023. Correlation is made with abdominal CT dated 10/18/2023. The examination is degraded by portable technique and api cecily lordotic positioning. A multilead cardiac AICD is unchanged in position. The patient is status po st midline sternotomy. The heart is enlarged noting atherosclerotic calcification of the thoracic aor ta. There is pulmonary vascular congestion. Chronic interstitial thickening similar to previous. Mild bilateral opacities are typical for pulmonary edema. There is bibasilar scarring/atelectasis. No lar ge pleural effusion is identified. No pneumothorax is seen. The skeletal structures are osteopenic. T he bony thorax is grossly intact. IMPRESSION: 1. Cardiomegaly and AICD with evidence of congestive failure and mild pulmonary edema. 2. No airspace consolidation typical for pneumonia or large pleural effusion is identified. ACT 112: Negative or not required by law. Electronically signed by: Troy Wood M.D. 10/19/2023 8:25 AM
[2023-10-19] MEDS ORDERED: SODIUM CHLORIDE 0.9% 250 ML IV PRN (11:39)
[2023-10-19] MEDS: FUROSEMIDE 40 MG/4 ML VIAL IV ONE (13:08)
--- NOTE | 2023-10-19 14:50 | Hospitalist Progress Note ---
Date of Service October 19, 2023 Assessment & Plan (1) Acute UTI: Plan 88-year-old male with PMH of T2DM, CKD stage III, moderate persistent asthma, CAD, ischemic cardiomyopathy, HTN, persistent A-fib, infrarenal AAA, chronic diastolic CHF, GERD, BPH, multiple myeloma, Alzheimer's dementia, transfusion dependent anemia presented to the ED with 2 days complaint of falls, shortness of breath, weakness, confusion, loss of appetite. He is being managed for the following: UTI Metabolic encephalopathy: Likely secondary to above Severe sepsis: Not POA but evident later in the day of admission with increased temperature/respiratory rate/lactic acid. Vitals are stable, lactic acidosis resolved. E. coli bacteremia with multiple drug-resistant Patient presented with 2 days of confusion/poor appetite/getting weak/falls Admitting UA suggestive of UTI, admitting blood culture suggestive of gram- negative bacteremia. Patient was started on Rocephin 10/14, changed to cefepime 10/14 after bl cx result --> back to rocephin 10/16 after C/S was out. Afebrile, patient feels better. And repeat cultures have been negative Appreciate ID input recommendation to continue ceftriaxone for for a total of [address] abdomen pelvis did not show any evidence of intra-abdominal collection/abscess Patient remains afebrile and has been feeling a lot better Discussed with the family members and ceftriaxone will continue to finish the course of antibiotic as planned Supposed to allergy to sulfa and that will not be given Likely discharge tomorrow Transfusion dependent anemia History of multiple myeloma Recurrent falls Generalized weakness History of transfusion dependent anemia and multiple myeloma. Follows Dr. Pietro Sykes, due to patient's advanced age patient and family have elected for nonaggressive treatment of multiple myeloma. Patient came in with progressive weakness, admitting hemoglobin of 6.5. CXR with mild pulmonary vascular congestion. Status post 4 unit PRBC transfusion. Continue with home Lasix, give additional IV Lasix with transfusion. Weakness and falls secondary to deconditioning secondary to underlying condition. PT/OT. May need placement. Hemoglobin remains stable at 7.8 as of 10/18/2023 Hemoglobin went down to 7.3-will give him 2 units of blood transfusion and likely discharge tomorrow He will have appointment with developer advisor within 7 days Elevated troponin: Likely secondary to acute illness. Demand ischemia. Patient with no chest pain. Continue telemetry. Troponin flat trended. DAPHNE over CKD: Cr uptrended, held lasix (and KCL) and losartan, s/p gentle ivf. Cr improved. Other chronic medical conditions: Continue with/resume home meds as and when able. Ischemic cardiomyopathy/tachybradycardia syndrome/CAD/status post implantation of AICD: July 2023 echo with EF of 60 to 65%. Continue beta- mike and ARB. Plavix recently discontinued due to epistaxis. T2DM: July 2023 A1c of 5.5. Sliding scale insulin while in the hospital. CKD stage III: Baseline creatinine high ones. Creatinine close to his baseline. Monitor. Moderate persistent asthma: Chronic, stable. Continue home inhalers. BPH: Chronic, stable. Continue home meds. DVT prophylaxis: SCDs DNR/DNI Dispo: pt/ot, cm to assist. Has had physical therapy and recommended SNF Admission and Anticipated Discharge Date Admission Date: October 14, 2023 Subjective 10/18/2023 The patient was seen and examined in medical telemetry unit He has been feeling much better and denies any symptoms No signs and symptoms of infection Has been getting better strength kelly Will have CT of the abdomen and pelvis as advised by the ID specialist 10/19/2023 The patient was seen and examined in medical telemetry unit He has been weak and lethargic but denies any other significant symptoms Noted to have shortness of breath last night and chest x-ray showed pulmonary congestion Received 40 mg Lasix IV at nighttime Hemoglobin dropped this morning to 7.3-he will get 2 units of blood transfusion and possible discharge tomorrow Review of Systems Review of Systems: All systems reviewed and are unremarkable except as noted Physical Exam Physical Exam: Sitting on a chair without any acute distress Constitutional: well developed, well nourished, + ill appearing and + obese Eyes: PERRL, conjunctivae normal, anicteric sclerae ENMT: external ear and nose normal, oropharynx normal Neck: trachea midline, no thyromegaly Respiratory: no respiratory distress Auscultation: lungs clear to auscultation bilaterally Cardiovascular: Rate/Rhythm: regular rate and regular rhythm; not tachycardic Heart Sounds: normal S1 and normal S2; no murmur Extremities: no edema Gastrointestinal (Abdomen): Inspection/Auscultation: normal bowel sounds; abdomen not distended Percussion/Palpation: abdomen soft; abdomen nontender Musculoskeletal: No acute arthritis involving any joint Neurologic: normal touch/pain/proprioception and moves all extremities; no focal motor deficits Lymphatic: no cervical or axillary lymphadenopathy Results & Data Results & Data Vital Signs (Past 12 Hours) Vital Signs Temp Pulse Pulse Resp BP BP BP 10/19/23 14:05 36.6 C 72 18 135/62 10/19/23 13:35 36.5 C 73 20 123/62 10/19/23 13:20 36.4 C L 76 18 137/61 10/19/23 13:20 36.4 C L 76 18 137/61 10/19/23 13:06 36.4 C L 71 18 151/69 H 10/19/23 12:08 36.7 C 70 17 159/69 H 10/19/23 08:00 10/19/23 08:00 73 10/19/23 07:38 37.2 C 71 16 148/61 H 10/19/23 04:50 71 22 10/19/23 03:08 36.6 C 82 18 161/70 H Pulse Ox O2 Del Method 10/19/23 14:05 94 10/19/23 13:35 95 10/19/23 13:20 95 10/19/23 13:20 95 10/19/23 13:06 95 10/19/23 12:08 93 Room Air 10/19/23 08:00 Room Air 10/19/23 08:00 10/19/23 07:38 94 Room Air 10/19/23 04:50 97 Room Air 10/19/23 03:08 94 Room Air Laboratory Results Short CBC 10/19/23 Range/Units 05:27 WBC 5.57 (4.8-10.8) K/ul Hgb 7.3 L (14.0-18.0) g/dl Hct 23.2 L (42.0-52.0) % Plt Count 190 (130-400) K/uL BMP 10/19/23 05:27 Sodium 140 Potassium 3.9 Chloride 103 Carbon Dioxide 24 BUN 51 H Creatinine 1.65 H Glucose 126 H Calcium 8.4 L Medications Administered Current Inpatient Medications Acetaminophen (Acetaminophen 325 Mg Tab) 650 mg PO Q4H PRN PRN Reason: Pain or Fever Stop: 11/13/23 13:05 Last Admin: 10/15/23 20:41 Dose: 650 mg Dextrose (Dextrose 50% 50 Ml Syringe) 25 - 50 ml IV UD PRN; Protocol PRN Reason: Hypoglycemia Protocol Stop: 11/13/23 14:38 Digoxin (Digoxin 0.125 Mg Tab) 0.125 mg PO [id number] [facility] Stop: 11/15/23 15:59 Last Admin: 10/18/23 15:59 Dose: 0.125 mg Ferrous Sulfate (Ferrous Sulfate 325 Mg Tab) 325 mg PO BID [facility] Stop: 11/13/23 20:59 Last Admin: 10/19/23 08:51 Dose: 325 mg Finasteride (Finasteride 5 Mg Tab) 5 mg PO QAM [facility] Stop: 11/14/23 08:59 Last Admin: 10/19/23 08:51 Dose: 5 mg Fluticasone/Vilanterol (Fluticasone/Vilanterol 200/25mcg 14 Puffs/Inhaler) 1 puffs INH DAILY [facility] Stop: 11/14/23 08:59 Last Admin: 10/19/23 08:51 Dose: 1 puffs Furosemide (Furosemide 40 Mg Tab) 40 mg PO QAM [facility] Stop: 11/14/23 08:59 Last Admin: 10/19/23 08:51 Dose: 40 mg Glucagon (Glucagon For Inj 1 Mg Vial) 1 mg SQ UD PRN; Protocol PRN Reason: Hypoglycemia Protocol Stop: 11/13/23 14:38 Glucose (Glucose 40% Gel 15 Gm Tube) 15 - 30 gm PO UD PRN; Protocol PRN Reason: Hypoglycemia Protocol Stop: 11/13/23 14:38 Glucose (Glucose 10 Tab/Tube) 4 - 8 tab PO UD PRN; Protocol PRN Reason: Hypoglycemia Treatment Stop: 11/13/23 14:38 Ceftriaxone Sodium 2,000 mg/ (Dextrose) 50 mls @ 100 mls/hr IV Q24H [facility] Stop: 10/27/23 20:29 Last Infusion: 10/18/23 20:29 Dose: Infused Sodium Chloride (Nss) 250 mls @ 15 mls/hr IV .[id number] PRN PRN Reason: For Transfusion Duration Stop: 10/19/23 21:39 Insulin Aspart (Insulin Aspart Per Unit Charge) 0 units SC ACHS [facility] Stop: 11/13/23 16:29 Last Admin: 10/19/23 13:10 Dose: 3 units Latanoprost (Latanoprost 0.005% Op Soln 2.5 Ml Btl) [facility] Stop: 11/14/23 08:59 Last Admin: 10/19/23 08:51 Dose: 1 drops Losartan Potassium (Losartan Potassium 50 Mg Tab) 50 mg PO QAM [facility] Stop: 11/14/23 08:59 Last Admin: 10/19/23 08:52 Dose: 50 mg Magnesium Oxide (Magnesium Oxide 400 Mg Tab) 400 mg PO PM [facility] Stop: 11/13/23 20:59 Last Admin: 10/18/23 19:37 Dose: 400 mg Metoprolol Succinate (Metoprolol Succ 50mg Ext Rel Tab) [facility] Stop: 11/16/23 08:59 Last Admin: 10/19/23 08:52 Dose: 50 mg Miscellaneous (Carbohydrates For Hypoglycemia ) 15 - 30 gm PO UD PRN PRN Reason: Hypoglycemia Protocol Stop: 11/13/23 14:38 Olanzapine (Olanzapine 10 Mg/2.1 Ml Sdv) 5 mg IM BID PRN PRN Reason: agitation Stop: 11/13/23 20:59 Last Admin: 10/14/23 16:55 Dose: 5 mg Pantoprazole Sodium (Pantoprazole 40 Mg Tab) [facility] [place]: 11/14/23 08:59 Last Admin: 10/19/23 08:52 Dose: 40 mg Potassium Chloride (Potassium Chloride Crtab 20 Meq Tabcr) 20 [facility]q [facility] [place]: 11/16/23 08:59 Last Admin: 10/19/23 08:52 Dose: 20 meq
[2023-10-20 06:18] LABS: Basophils # (auto) 0.02 K/uL (0.00-0.20); Basophils % (auto) 0.4 %; Eosinophils % (auto) 5.6 %; Hematocrit (blood only) 26.6 % (42.0-52.0); Hemoglobin 8.3 g/dl (14.0-18.0); Immature Granulocytes # (auto) 0.07 K/uL (0.01-0.20); Immature Granulocytes % (auto) 1.3 %; Lymphocytes # (auto) 0.94 K/uL (1.20-3.40); Lymphocytes % (auto) 17.4 %; Mean Corpuscular Hemoglobin 30.4 pg (25.0-34.0); Mean Corpuscular Hgb Conc 31.2 g/dL (32.0-36.0); Mean Corpuscular Volume 97.4 fL (80.0-100.0); Mean Platelet Volume 9.8 fL (9.4-12.4); Monocytes # (auto) 0.58 K/uL (0.11-0.59); Monocytes % (auto) 10.8 %; Neutrophils # (auto) 3.48 K/uL (1.40-6.50); Neutrophils % (auto) 64.5 %; Platelet Count 212 K/uL (130-400); RDW Coefficient of Variation 17.5 % (11.5-14.5); Red Blood Count 2.73 M/uL (4.70-6.10); White Blood Count 5.39 K/ul (4.8-10.8)
[2023-10-20 06:33] LABS: Calcium 8.4 mg/dl (8.6-10.3); Creatinine Clr Calc Pharmacy 34.6 ml/min; Est GFR (Non-African American) 37.9 ml/min; Potassium 3.9 mmol/L (3.5-5.1)
--- NOTE | 2023-10-20 09:19 | Hospitalist Progress Note ---
Date of Service October 20, 2023 Assessment & Plan (1) Acute UTI: Plan 88-year-old male with PMH of T2DM, CKD stage III, moderate persistent asthma, CAD, ischemic cardiomyopathy, HTN, persistent A-fib, infrarenal AAA, chronic diastolic CHF, GERD, BPH, multiple myeloma, Alzheimer's dementia, transfusion dependent anemia presented to the ED with 2 days complaint of falls, shortness of breath, weakness, confusion, loss of appetite. He is being managed for the following: UTI Metabolic encephalopathy: Likely secondary to above Severe sepsis: Not POA but evident later in the day of admission with increased temperature/respiratory rate/lactic acid. Vitals are stable, lactic acidosis resolved. E. coli bacteremia with multiple drug-resistant Patient presented with 2 days of confusion/poor appetite/getting weak/falls Admitting UA suggestive of UTI, admitting blood culture suggestive of gram- negative bacteremia. Patient was started on Rocephin 10/14, changed to cefepime 10/14 after bl cx result --> back to rocephin 10/16 after C/S was out. Afebrile, patient feels better. And repeat cultures have been negative Appreciate ID input recommendation to continue ceftriaxone for for a total of [address] abdomen pelvis did not show any evidence of intra-abdominal collection/abscess Patient remains afebrile and has been feeling a lot better Discussed with the family members and ceftriaxone will continue to finish the course of antibiotic as planned Supposed to allergy to sulfa and that will not be given Remains stable without any other symptoms Will be discharged home this morning and will have antibiotic to finish the course at home Transfusion dependent anemia History of multiple myeloma Recurrent falls Generalized weakness History of transfusion dependent anemia and multiple myeloma. Follows Dr. Pietro Sykes, due to patient's advanced age patient and family have elected for nonaggressive treatment of multiple myeloma. Patient came in with progressive weakness, admitting hemoglobin of 6.5. CXR with mild pulmonary vascular congestion. Status post 4 unit PRBC transfusion. Continue with home Lasix, give additional IV Lasix with transfusion. Weakness and falls secondary to deconditioning secondary to underlying condition. PT/OT. May need placement. Hemoglobin remains stable at 7.8 as of 10/18/2023 Hemoglobin went down to 7.3-will give him 2 units of blood transfusion and likely discharge tomorrow He will have appointment with cell operation supervisor within 7 days Hemoglobin went up to 8.3 and the patient remains free from any symptoms He will have appointment with the oncologist as an outpatient Elevated troponin: Likely secondary to acute illness. Demand ischemia. Patient with no chest pain. Continue telemetry. Troponin flat trended. DAPHNE over CKD: Cr uptrended, held lasix (and KCL) and losartan, s/p gentle ivf. Cr improved. Other chronic medical conditions: Continue with/resume home meds as and when able. Ischemic cardiomyopathy/tachybradycardia syndrome/CAD/status post implantation of AICD: July 2023 echo with EF of 60 to 65%. Continue beta- mike and ARB. Plavix recently discontinued due to epistaxis. T2DM: July 2023 A1c of 5.5. Sliding scale insulin while in the hospital. CKD stage III: Baseline creatinine high ones. Creatinine close to his baseline. Monitor. Moderate persistent asthma: Chronic, stable. Continue home inhalers. BPH: Chronic, stable. Continue home meds. DVT prophylaxis: SCDs DNR/DNI Dispo: pt/ot, cm to assist. Has had physical therapy and recommended SNF The family decided to take him home with home health and refused to go to rehab Medically stable to be discharged this morning Admission and Anticipated Discharge Date Admission Date: October 14, 2023 Subjective 10/18/2023 The patient was seen and examined in medical telemetry unit He has been feeling much better and denies any symptoms No signs and symptoms of infection Has been getting better strength kelly Will have CT of the abdomen and pelvis as advised by the ID specialist 10/19/2023 The patient was seen and examined in medical telemetry unit He has been weak and lethargic but denies any other significant symptoms Noted to have shortness of breath last night and chest x-ray showed pulmonary congestion Received 40 mg Lasix IV at nighttime Hemoglobin dropped this morning to 7.3-he will get 2 units of blood transfusion and possible discharge tomorrow 10/20/2023 The patient was seen and examined in medical telemetry unit in presence of the family members He has been feeling much better following the blood transfusion Denies any symptoms this morning Will have antibiotic this morning and will be discharged home with home health Review of Systems Review of Systems: All systems reviewed and are unremarkable except as noted Physical Exam Physical Exam: Sitting on a chair without any acute distress Constitutional: well developed, well nourished, + ill appearing and + obese Eyes: PERRL, conjunctivae normal, anicteric sclerae ENMT: external ear and nose normal, oropharynx normal Neck: trachea midline, no thyromegaly Respiratory: no respiratory distress Auscultation: lungs clear to auscultation bilaterally Cardiovascular: Rate/Rhythm: regular rate and regular rhythm; not tachycardic Heart Sounds: normal S1 and normal S2; no murmur Extremities: no edema Gastrointestinal (Abdomen): Inspection/Auscultation: normal bowel sounds; abdo men not distended Percussion/Palpation: abdomen soft; abdomen nontender Neurologic: normal touch/pain/proprioception and moves all extremities; no focal motor deficits Lymphatic: no cervical or axillary lymphadenopathy Results & Data Results & Data Vital Signs (Past 12 Hours) Vital Signs Temp Pulse Pulse Resp BP BP Pulse Ox 10/20/23 07:57 36.2 C L 69 16 151/74 H 92 10/20/23 04:46 36.9 C 70 18 153/64 H 97 10/19/23 23:18 70 10/19/23 22:13 37.1 C 70 20 159/67 H 94 O2 Del Method 10/20/23 07:57 Room Air 10/20/23 04:46 Room Air 10/19/23 23:18 10/19/23 22:13 Room Air Laboratory Results Short CBC 10/20/23 Range/Units 05:41 WBC 5.39 (4.8-10.8) K/ul Hgb 8.3 L (14.0-18.0) g/dl Hct 26.6 L (42.0-52.0) % Plt Count 212 (130-400) K/uL BMP 10/20/23 05:41 Sodium 142 Potassium 3.9 Chloride 103 Carbon Dioxide 25 BUN 54 H Creatinine 1.59 H Glucose 113 H Calcium 8.4 L Medications Administered Current Inpatient Medications Acetaminophen (Acetaminophen 325 Mg Tab) 650 mg PO Q4H PRN PRN Reason: Pain or Fever Stop: 11/13/23 13:05 Last Admin: 10/15/23 20:41 Dose: 650 mg Dextrose (Dextrose 50% 50 Ml Syringe) 25 - 50 ml IV UD PRN; Protocol PRN Reason: Hypoglycemia Protocol Stop: 11/13/23 14:38 Digoxin (Digoxin 0.125 Mg Tab) 0.125 mg PO [id number]@1600 ALIN Stop: 11/15/23 15:59 Last Admin: 10/18/23 15:59 Dose: 0.125 mg Ferrous Sulfate (Ferrous Sulfate 325 Mg Tab) 325 mg PO BID [facility] Stop: 11/13/23 20:59 Last Admin: 10/20/23 09:12 Dose: 325 mg Finasteride (Finasteride 5 Mg Tab) 5 mg PO QAM [facility] Stop: 11/14/23 08:59 Last Admin: 10/20/23 09:12 Dose: 5 mg Fluticasone/Vilanterol (Fluticasone/Vilanterol 200/25mcg 14 Puffs/Inhaler) 1 puffs INH DAILY [facility] Stop: 11/14/23 08:59 Last Admin: 10/20/23 09:11 Dose: 1 puffs Furosemide (Furosemide 40 Mg Tab) 40 mg PO QAM [facility] Stop: 11/14/23 08:59 Last Admin: 10/20/23 09:12 Dose: 40 mg Glucagon (Glucagon For Inj 1 Mg Vial) 1 mg SQ UD PRN; Protocol PRN Reason: Hypoglycemia Protocol Stop: 11/13/23 14:38 Glucose (Glucose 40% Gel 15 Gm Tube) 15 - 30 gm PO UD PRN; Protocol PRN Reason: Hypoglycemia Protocol Stop: 11/13/23 14:38 Glucose (Glucose 10 Tab/Tube) 4 - 8 tab PO UD PRN; Protocol PRN Reason: Hypoglycemia Treatment Stop: 11/13/23 14:38 Ceftriaxone Sodium 2,000 mg/ (Dextrose) 50 mls @ 100 mls/hr IV Q24H [facility] Stop: 10/27/23 10:59 Insulin Aspart (Insulin Aspart Per Unit Charge) 0 units SC ACHS [facility] Stop: 11/13/23 16:29 Last Admin: 10/20/23 09:13 Dose: Not Given Latanoprost (Latanoprost 0.005% Op Soln 2.5 Ml Btl) 1 drops OPB QAM [facility] Stop: 11/14/23 08:59 Last Admin: 10/20/23 09:12 Dose: 1 drops Losartan Potassium (Losartan Potassium 50 Mg Tab) 50 mg PO QAM [facility] Stop: 11/14/23 08:59 Last Admin: 10/20/23 09:12 Dose: 50 mg Magnesium Oxide (Magnesium Oxide 400 Mg Tab) 400 mg PO PM [facility] Stop: 11/13/23 20:59 Last Admin: 10/19/23 20:56 Dose: 400 mg Metoprolol Succinate (Metoprolol Succ 50mg Ext Rel Tab) 50 mg PO QAM [facility] Stop: 11/16/23 08:59 Last Admin: 10/20/23 09:12 Dose: 50 mg Miscellaneous (Carbohydrates For Hypoglycemia ) 15 - 30 gm PO UD PRN PRN Reason: Hypoglycemia Protocol Stop: 11/13/23 14:38 Olanzapine (Olanzapine 10 Mg/2.1 Ml Sdv) 5 mg IM BID PRN PRN Reason: agitation Stop: 11/13/23 20:59 Last Admin: 10/14/23 16:55 Dose: 5 mg Pantoprazole Sodium ([facility]antoprazole 40 Mg Tab) [facility] [place] Stop: 11/14/23 08:59 Last Admin: 10/20/23 09:12 Dose: 40 mg Potassium Chloride (Potassium Chloride Crtab 20 Meq Tabcr) 20 meq [facility] [place] Stop: 11/16/23 08:59 Last Admin: 10/20/23 09:16 Dose: 20 meq
[2023-10-20] MEDS: cefTRIAXone SODIUM 2,000 MG in DEXTROSE 5 % MINI-B 50 ML IV SCH (10:00)
--- NOTE | 2023-10-21 07:19 | Discharge Summary ---
Date of Service October 20, 2023 Admission HPI Per Admitting Provider 88-year-old male with PMH DM type II, CKD stage III, moderate persistent asthma, CAD, ischemic cardiomyopathy, HTN, persistent atrial fibrillation, infrarenal AAA, chronic diastolic CHF, GERD, BPH, multiple myeloma, Alzheimer's dementia, and other problems listed below who presents to the ED for evaluation of frequent falls and generalized weakness. History is limited from the patient due to underlying dementia. History obtained from patient's son who is at the bedside and review of outpatient PCP records. Over the past 1 week, son reports patient has had several falls. Patient has been unable to get up from the ground. States that when he falls, he sometimes will fall asleep on the floor and has been lethargic. Also reporting urinary frequency. Patient with history of multiple myeloma with chronic transfusion dependent anemia. Patient received 2 unit PRBC on 10/06 and 1 unit PRBC on 10/12. Son reports patient's reported a fever of 102 this morning however he is unsure of the accuracy. Patient has had a very poor appetite which is unusual for him. No vomiting or diarrhea. No other symptoms reported. In the ED, labs show Hgb 6.5 and UA suggestive of UTI. Patient was given IV ceftriaxone and typed and crossed for 2 units of PRBCs. Admission Exam Per Admitting Provider Constitutional: WD/WN, vitals as above no acute distressEyes: PERRL, conjunctivae normal, anicteric scleraeENMT: external ear and nose normal, oropharynx normalRespiratory: normal respiratory effort; no respiratory distress Auscultation: + diminished lung soundsCardiovascular: Rate/Rhythm: regular rate and regular rhythm Vessels: normal peripheral pulses Extremities: no edemaGastrointestinal (Abdomen): normal bowel sounds, soft, nontender, no hepatosplenomegalyMusculoskeletal: no cyanosis or clubbing, extremities motor strength 5/5Skin: no rashes, warm and dryNeurologic: PERRL, EOMI, accommodation nl, no face palsy, no dysarthriaPsychiatric: Orientation: alert, oriented to person and oriented to place; + not oriented to time Cognition: + recent memory not intact Insight: + limited insight Principal Diagnosis Acute metabolic and cephalopathy, symptomatic anemia, multiple myeloma on transfusion dependent anemia, complicated UTI Discharge Exam Sitting on a chair without any acute distress Constitutional well developed, well nourished, + ill appearing and + obese Eyes PERRL, conjunctivae normal, anicteric sclerae ENMT external ear and nose normal, oropharynx normal Neck trachea midline, no thyromegaly Respiratory no respiratory distress Auscultation: lungs clear to auscultation bilaterally Cardiovascular Rate/Rhythm: regular rate and regular rhythm; not tachycardic Heart Sounds: normal S1 and normal S2; no murmur Extremities: no edema Gastrointestinal (Abdomen) Inspection/Auscultation: normal bowel sounds; abdomen not distended Percussion/Palpation: abdomen soft; abdomen nontender Neurologic normal touch/pain/proprioception and moves all extremities; no focal motor deficits Lymphatic no cervical or axillary lymphadenopathy Discharge Data Allergies Allergy/AdvReac Type Severity Reaction Status Date / Time Sulfa (Sulfonamide Allergy Severe DYSUREA Verified 10/14/23 10:52 Antibiotics) PER [facility] prednisone Allergy Intermediate BLISTERS Verified 10/14/23 10:52 IN THROAT hydrocodone AdvReac Severe ALTERED Verified 10/14/23 10:52 MENTAL STATUS FELECIA Inhibitors AdvReac Intermediate Cough Verified 10/14/23 10:52 pseudoephedrine AdvReac Intermediate TEMP ELEV Verified 10/14/23 10:52 Consultations 10/14/23 10:23 ED Decision to Admit Stat 10/15/23 09:21 Consult Infectious Diseases Routine Ordered Studies 10/18/23 12:11 CT Abd and Pelvis [CT abd pelvis wo con] Routine Hospital Course (1) Acute UTI: Plan 88-year-old male with PMH of T2DM, CKD stage III, moderate persistent asthma, CAD, ischemic cardiomyopathy, HTN, persistent A-fib, infrarenal AAA, chronic diastolic CHF, GERD, BPH, multiple myeloma, Alzheimer's dementia, transfusion dependent anemia presented to the ED with 2 days complaint of falls, shortness of breath, weakness, confusion, loss of appetite. He is being managed for the following: UTI Metabolic encephalopathy: Likely secondary to above Severe sepsis: Not POA but evident later in the day of admission with increased temperature/respiratory rate/lactic acid. Vitals are stable, lactic acidosis resolved. E. coli bacteremia with multiple drug-resistant Patient presented with 2 days of confusion/poor appetite/getting weak/falls Admitting UA suggestive of UTI, admitting blood culture suggestive of gram- negative bacteremia. Patient was started on Rocephin 10/14, changed to cefepime 10/14 after bl cx result --> back to rocephin 10/16 after C/S was out. Afebrile, patient feels better. And repeat cultures have been negative Appreciate ID input recommendation to continue ceftriaxone for for a total of [address] abdomen pelvis did not show any evidence of intra-abdominal collection/abscess Patient remains afebrile and has been feeling a lot better Discussed with the family members and ceftriaxone will continue to finish the course of antibiotic as planned Supposed to allergy to sulfa and that will not be given Remains stable without any other symptoms Will be discharged home this morning and will have antibiotic to finish the course at home Transfusion dependent anemia History of multiple myeloma Recurrent falls Generalized weakness History of transfusion dependent anemia and multiple myeloma. Follows Dr. Pietro Sykes, due to patient's advanced age patient and family have elected for nonaggressive treatment of multiple myeloma. Patient came in with progressive weakness, admitting hemoglobin of 6.5. CXR with mild pulmonary vascular congestion. Status post 4 unit PRBC transfusion. Continue with home Lasix, give additional IV Lasix with transfusion. Weakness and falls secondary to deconditioning secondary to underlying condition. PT/OT. May need placement. Hemoglobin remains stable at 7.8 as of 10/18/2023 Hemoglobin went down to 7.3-will give him 2 units of blood transfusion and likely discharge tomorrow He will have appointment with entry level buyer within 7 days Hemoglobin went up to 8.3 and the patient remains free from any symptoms He will have appointment with the oncologist as an outpatient Elevated troponin: Likely secondary to acute illness. Demand ischemia. Patient with no chest pain. Continue telemetry. Troponin flat trended. DAPHNE over CKD: Cr uptrended, held lasix (and KCL) and losartan, s/p gentle ivf. Cr improved. Other chronic medical conditions: Continue with/resume home meds as and when able. Ischemic cardiomyopathy/tachybradycardia syndrome/CAD/status post implantation of AICD: July 2023 echo with EF of 60 to 65%. Continue beta- mike and ARB. Plavix recently discontinued due to epistaxis. T2DM: July 2023 A1c of 5.5. Sliding scale insulin while in the hospital. CKD stage III: Baseline creatinine high ones. Creatinine close to his baseline. Monitor. Moderate persistent asthma: Chronic, stable. Continue home inhalers. BPH: Chronic, stable. Continue home meds. DVT prophylaxis: SCDs DNR/DNI Dispo: pt/ot, cm to assist. Has had physical therapy and recommended SNF The family decided to take him home with home health and refused to go to rehab Medically stable to be discharged this morning Total Time Total Time Spent Total Time Spent (In Minutes): 40 minutes Discharge Plan Discharge Items Patient Disposition: Home - Home Health Services Reason For Visit: SYMPTOMATIC ANEMIA Discharge Diagnosis: Acute metabolic and cephalopathy, symptomatic anemia, multiple myeloma on transfusion dependent anemia, complicated UTI Condition on Discharge: Fair Activity: Resume your previous activity Non-emergency contact: Primary Care Provider Call non-emergency contact if: you have any medication questions and your symptoms worsen Follow-up/Referrals: Pietro Sykes MD [Surgeon] - (The Hematology/Oncology office will contact you for a follow up appointment/lab work.) Zenobia Lyon MD [Primary Care Provider] - (Date & Time 10/30/2023 5:00 PM Provider Sherron Lyles MD Department Family Medicine [facility] ) Diet: Carb Consistent or DM2 Addtl Attending Provider Instructions: Please take precautions to avoid falls Please finish the course of antibiotic as advised Try to drink more fluid Keep appointments with the healthcare providers Pending Studies at Discharge: No Stand-Alone Forms: [facility] [employer], Smoking Cessation Medications and DC Order Prescriptions: Continued methenamine hippurate 1 gram tablet 1 g PO BID 30 Days Qty: 60 5RF furosemide [Lasix] 40 mg Tablet 40 mg PO QAM potassium chloride [Klor-Con M20] 20 mEq Tablet,Er Particles/Crystals 20 meq PO QAM magnesium oxide 400 mg (241.3 mg magnesium) Tablet 400 mg PO PM digoxin 125 mcg Tablet 125 mcg PO 3XWK Rx Instructions: take 1 tablet mon,wed,fri albuterol sulfate [Proventil HFA] 90 mcg/actuation Hfa Aerosol Inhaler 2 puff INHALATION QID PRN (Reason: Shortness Of Breath) latanoprost 0.005 % Drops 1 drp OPB QAM pantoprazole 40 mg tablet,delayed release (DR/EC) 40 mg PO QAM metoprolol succinate 50 mg tablet extended release 24 hr 50 mg PO QAM losartan 50 mg tablet 50 mg PO QAM ferrous sulfate [FeroSul] 325 mg (65 mg iron) tablet 325 mg PO BID multivitamin Tablet 1 tab PO DAILY glipizide 5 mg Tablet Extended Release 24hr 5 mg PO DAILYBB ondansetron HCl 4 mg tablet 4 mg PO Q6H PRN (Reason: Nausea And Vomiting) dutasteride 0.5 mg capsule 0.5 mg PO QAM Saline Mist 0.65 % aerosol,spray 0 spray NA Q1H PRN (Reason: dry nasal passages) Rx Instructions: unable to verify OTC with patient or caregiver at this time and date. Original Directions: 2 spray into the nostrils every hours as needed for dry nasal passages. fluticasone propion-salmeterol 250-50 mcg/dose blister with device 1 inh INHALATION BID Discharge Orders: Discharge Order (Routine); Ordered 10/20/23 Ordered By: Harshad Ocasio Admission Data Admit Date/Time: 10/14/23 10:26 Attending Provider: Harshad Ocasio Admit Provider: Gavin Plasencia Primary Care Provider: Zenobia Lyon Other Providers: Gavin Plasencia; Kwame Pérez; Blayne Weinberg; Matti Caldera I.; Yefri Bunn II; Ekta Tay; Chris Burgos; Rosales Vogt; Lottie López; Jonathan Chilel; Rakesh Jefferson [facility] Other Interventions: Discharge Summary Assessment (RN) Last Done: 10/20/23 10:41
== END 2023-10-20 11:13 | disposition home health service (06) | DRG 689 ==
LOC: ED 08:56 → EDINP 10:26 → SUATTDRO 10:26 → 2W 13:06

== ENCOUNTER 2023-11-08 16:57 | Inpatient (IN) ==
--- NOTE | 2023-11-08 17:13 | ED Triage Note ---
Date of Service November 08, 2023 Provider in Triage Author: Dariana Gunn History of Present Illness This patient was briefly evaluated while in triage. An abbreviated physical exam was performed. This patient is a 88-year-old Male who presents to the ED for evaluation of Anemia. Hgb was 6.4 as an outpatient and was sent to the ER for blood. Has been getting iron infusions for chronic anemia. Physical Exam GENERAL: Non-toxic and in no acute distress. HEENT: Pupils equal. No obvious scleral icterus. NEURO: Alert and oriented. No obvious neurological deficits on quick neuro exam. Initial orders for labs and / or imaging were placed and patient was placed in the waiting area until a bed is available. Please see further documentation for the full ED course. MDM / Impression Impression Impression: GIB (gastrointestinal bleeding) Impression: GIB (gastrointestinal bleeding) Qualifiers: GI bleed type/associated pathology: melena Qualified Code(s): K92.1 - Melena
[2023-11-08 17:59] LABS: Hematocrit (blood only) 21.5 % (42.0-52.0); Hemoglobin 6.6 g/dl (14.0-18.0); Mean Corpuscular Hemoglobin 30.8 pg (25.0-34.0); Mean Corpuscular Hgb Conc 30.7 g/dL (32.0-36.0); Mean Corpuscular Volume 100.5 fL (80.0-100.0); Mean Platelet Volume 9.6 fL (9.4-12.4); Platelet Count 189 K/uL (130-400); RDW Coefficient of Variation 20.4 % (11.5-14.5); RDW Standard Deviation 70.3 fL (36.4-46.3); Red Blood Count 2.14 M/uL (4.70-6.10); White Blood Count 3.89 K/ul (4.8-10.8)
[2023-11-08 18:25] LABS: Anisocytosis Present; Basophils # (auto) 0.02 K/uL (0.00-0.20); Basophils % (auto) 0.5 %; Eosinophils # (auto) 0.44 K/uL (0.00-0.50); Eosinophils % (auto) 11.3 %; Immature Granulocytes # (auto) 0.03 K/uL (0.01-0.20); Immature Granulocytes % (auto) 0.8 %; Lymphocytes # (auto) 1.11 K/uL (1.20-3.40); Lymphocytes % (auto) 28.5 %; Monocytes # (auto) 0.51 K/uL (0.11-0.59); Monocytes % (auto) 13.1 %; Neutrophils # (auto) 1.78 K/uL (1.40-6.50); Neutrophils % (auto) 45.8 %
[2023-11-08 18:38] LABS: Albumin Globulin Ratio 0.5 (0.9-2); Albumin Level 2.9 gm/dl (3.4-5.0); BUN Creatinine Ratio 21.7 (10-20); Bilirubin,Total 0.4 mg/dl (0.2-1.0); Creatinine Clr Calc Pharmacy 32.8 ml/min; Est GFR (African American) 43.3 ml/min; Est GFR (Non-African American) 37.4 ml/min; Globulin 6.1 gm/dl (2.5-4.0); INR 1.1 (0.9-1.1); Partial Thromboplastin Ratio 1.1; Partial Thromboplastin Time 31 Seconds (21-31); Potassium 4.3 mmol/L (3.5-5.1); Prothrombin Time 12.1 Seconds (9.0-12.0); Troponin I High Sensitivity 16.8 pg/ml (0-20)
[2023-11-08] MEDS: FUROSEMIDE 40 MG/4 ML VIAL IV STA (19:44)
[2023-11-08] MEDS: PANTOprazole 80 MG in DEXTROSE 5% 100 ML IV ONE (20:04)
[2023-11-08] MEDS: SODIUM CHLORIDE 0.9% 250 ML IV PRN (20:06)
--- NOTE | 2023-11-08 20:11 | History & Physical Report ---
Date of Service November 08, 2023 Assessment & Plan (1) UGIB (upper gastrointestinal bleed): Plan: Heme positive melanotic stool documented at the ER Acute on chronic anemia Hemoglobin drop from baseline secondary to UGIB chronic diastolic heart failure (EF 60 to 65%, TTE 2022), some congestion noted on x-ray SSS status post PPM, paced rhythm, not on anticoagulation secondary to bleeding risk CAD status post CABG/stent, PVD valvular heart disease (mild /TR, moderate MR) Pulmonary hypertension as per records hypertension, slightly elevated COPD, lung status at baseline DM2 on oral medications, well-controlled as of recent hemoglobin A1c of 5.3 last July 2023 CRI, creatinine at baseline Recurrent UTIs on chronic methenamine suppression Rx History BPH dementia as per records, at baseline past tobacco abuse Medical telemetry Transfuse PRBC to maintain hemoglobin of at least 8 Give Lasix prior to transfusion owing to congestion on x-ray IV PPI GI consult re: UGIB resulting in anemia, hemoglobin drop from baseline (Patient and family interested in endoscopy if recommended.) ISS BG goal 1 10-1 40, update hemoglobin A1c DVT prophylaxis. SCDs Re: UGIB DNR Patient family requesting updates from providers. Ms. Remedios Booth (), contact #[phone] Ms. Reji Trejo (daughter), contact #[phone]. Text document was generated using [employer] voice recognition software. It may contain grammatical or spelling errors. Kindly contact undersigned for clarification of any documentation item in question. History of Present Illness Chief Complaint: I need blood as per patient Primary Care Provider: Zenobia Lyon MD History obtained from patient, family, and records. Limited history from patient secondary to marked hearing impairment/dementia. Medical history significant for chronic diastolic heart failure EF 60 to 65%, TTE 2022), CAD status post CABG/stent, PVD, SSS status post PPM not on anticoagulation secondary to bleeding risk, valvular heart disease (mild /TR, moderate MR), hypertension, COPD, DISH, BPH, DM2 on oral medications, GERD, dementia as per records, recurrent UTIs on chronic methenamine suppression Rx, multiple myeloma, CRI (baseline creatinine 1.6-1.8 ), chronic anemia (baseline hemoglobin of 8), past tobacco abuse. Four admissions since July 2023. Recent confinement last month for metabolic encephalopathy secondary to E. coli UTI. Patient seen at [facility] roll coverer office 5 days ago. Outpatient hemoglobin noted to be 6.8. 1 unit packed RBC transfused and Venofer administered outpatient. Outpatient hemoglobin today noted to be 6.4. Patient denies headache, chest pain, SOB, abdominal pain, black/bloody stools, hematuria. Has been off Plavix since admission 2 months ago for epistaxis. Denies OTC NSAID intake. Heme positive melanotic stool documented at the ER. IV PPI infusion initiated at the ER. 1 unit PRBC transfused. 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 Allergies Allergy/AdvReac Type Severity Reaction Status Date / Time Sulfa (Sulfonamide Allergy Severe DYSUREA Verified 11/08/23 18:54 Antibiotics) PER [facility] prednisone Allergy Intermediate BLISTERS Verified 11/08/23 18:54 IN THROAT hydrocodone AdvReac Severe ALTERED Verified 11/08/23 18:54 MENTAL STATUS FELECIA Inhibitors AdvReac Intermediate Cough Verified 11/08/23 18:54 pseudoephedrine AdvReac Intermediate TEMP ELEV Verified 11/08/23 18:54 Home Medications Medication Instructions Recorded Confirmed Type albuterol sulfate 90 mcg/actuation 2 puff inhalation QID PRN 06/07/18 11/08/23 History aerosol inhaler (Proventil HFA) Shortness Of Breath digoxin 125 mcg (0.125 mg) tablet 125 mcg PO 3XWK 06/07/18 11/08/23 History magnesium oxide 400 mg (241.3 mg 400 mg PO PM 06/07/18 11/08/23 History magnesium) tablet potassium chloride 20 mEq 20 meq PO QAM 06/07/18 11/08/23 History tablet,extended release(part/cryst) (Klor-Con M) furosemide 40 mg tablet (Lasix) 40 mg PO QAM 04/25/19 11/08/23 History latanoprost 0.005 % eye drops 1 drp OPB QAM 03/24/20 11/08/23 History pantoprazole 40 mg tablet,delayed 40 mg PO QAM 10/22/21 11/08/23 History release losartan 50 mg tablet 50 mg PO QAM 08/28/22 11/08/23 History metoprolol succinate 50 mg 50 mg PO QAM 08/28/22 11/08/23 History tablet,extended release 24 hr multivitamin 1 tab PO DAILY 08/28/22 11/08/23 History methenamine hippurate 1 gram tablet 1 g PO BID 30 days #60 tabs 11/25/22 11/08/23 Rx glipizide 5 mg tablet, extended 5 mg PO DAILYBB 04/20/23 11/08/23 History release 24 hr dutasteride 0.5 mg capsule 0.5 mg PO QAM 08/22/23 11/08/23 History ondansetron HCl 4 mg tablet 4 mg PO Q6H PRN Nausea And Vomiting 08/22/23 11/08/23 History fluticasone 250 mcg-salmeterol 50 1 inh inhalation BID 10/14/23 11/08/23 History mcg/dose blistr powdr for inhalation sodium chloride 0.65 % nasal spray 0 spray NA Q1H PRN dry nasal 10/14/23 11/08/23 History aerosol (Saline Mist) passages acetaminophen 500 mg tablet 1,000 mg PO BIDM 11/08/23 11/08/23 History (Tylenol Extra Strength) ferrous sulfate 325 mg (65 mg 325 mg PO Q OTHER DAY 11/08/23 11/08/23 History iron) tablet iron sucrose 100 mg iron/5 mL 300 mg IV ONCE 11/08/23 11/08/23 History intravenous solution (Venofer) Past Med/Surg History Medical History Epistaxis CKD stage 3 due to type 2 diabetes mellitus no specialist Type II diabetes mellitus NIDDM Peptic ulcer disease GI bleed Elevated prostate specific antigen (PSA) Multiple myeloma History of pacemaker Shingles Encounter for pre-operative examination Severe sepsis Dementia GI bleed per pt's > had 3 units PRBC's [facility] during admission in Jul 2021 Dementia mild at present Presence of combination internal cardiac defibrillator (ICD) and pacemaker follows w/ Dr. Sanford > [employer] > gets checked electronically > PMH provided by , usure when last checked in office. Chronic back pain Osteoarthritis Anemia History of colon polyps GERD (gastroesophageal reflux disease) Hearing deficit [place] Glaucoma Aortic aneurysm unsure of last ultrasound/scan -- no surgical intervention. Moderate aortic root dilatation noted on 2018 echo. No AAA noted on [address] COPD (chronic obstructive pulmonary disease) well controlled rare res inh use On home oxygen therapy 2 LPM QHS BPH (benign prostatic hyperplasia) Aortic valve insufficiency Moderate-severe per 11/2018 echo Ischemic cardiomyopathy EF normalized, most recently 55-60% on 11/2018 echo Dyslipidemia Persistent atrial fibrillation Anticoagulation contraindicated per cardiology > ICD Tachy-lorna syndrome S/p dual chamber pacer with upgrade to pacer/ICD 2014 HTN (hypertension) CAD (coronary artery disease) (08/21/14) S/p CABG July 2000 receiving KAUR graft to LAD, saphenous vein graft sequentially from the obtuse marginal to diagonal. S/p stenting of prox Cx 2013 Surgical History History of implantable cardioverter-defibrillator (ICD) placement History of tooth extraction History of esophagogastroduodenoscopy (EGD) History of tonsillectomy History of cataract surgery bilat History of prostate surgery non cancerous History of colonoscopy History of cardiac cath 1999 --> CABG 2013 - 1 stent - [facility] S/P CABG x 3 1999 S/P coronary artery stent placement July 2014 with stenting of the proximal circumflex Family History Grandmother Diabetes Mother Colon cancer Other Melanoma No family history of adverse response to anesthesia Social History Smoking Status: Current every day smoker Tobacco Type: Cigarettes Second Hand Exposure: No; Do You Dip or Chew Tobacco: No; Hx Alcohol Use: No Hx Substance Use: No Preferred Language: Lithuanian Communication Ability: Effective Communication Ability Comment: kalispel despite b/[facility] [place] [employer] Cloth Required: No Beliefs That Will Affect Care: None marital status: Current Living Situation: Spouse How many Children do You have: 2 Other Information That Helps Us Care for You: No Feels Safe at Home: Yes Safety Concerns: Feels Safe At This Time Assistive Devices: Cane and Hearing Aid - Bilateral Review of Systems Review of Systems: Could not be reliably obtained secondary to dementia and hearing impairment. Physical Exam Physical Exam: GENERAL: Comfortable, pleasant, hard of hearing, no respiratory distress SKIN: Pallor, warm HEENT: Pale palpebral conjunctivae, no ptosis, dry buccal mucosa NECK : Supple, no tenderness CHEST : CTA, no tenderness HEART : RRR, systolic murmur ABDOMEN: Some distention, nontender EXTREMITIES : Minimal LE swelling, no LE tenderness, no other conspicuous deformities noted NEUROLOGIC : Coherent, hard of hearing, no facial asymmetry, gait and stance not assessed Results & Data Results & Data Vital Signs (Past 12 Hours) Vital Signs Temp Pulse Pulse Resp BP BP Pulse Ox 11/08/23 19:49 37.0 C 72 22 154/80 H 97 11/08/23 18:27 82 11/08/23 18:20 78 20 149/69 H 98 11/08/23 17:06 36.8 C 76 20 132/67 96 O2 Del Method 11/08/23 19:49 11/08/23 18:27 11/08/23 18:20 Room Air 11/08/23 17:06 Room Air Laboratory Results Laboratory Results WBC 3.89 K/ul (4.8-10.8) L 11/08/23 17:30 RBC 2.14 M/uL (4.70-6.10) L 11/08/23 17:30 Hgb 6.6 g/dl (14.0-18.0) L* 11/08/23 17:30 Hct 21.5 % (42.0-52.0) L 11/08/23 17:30 MCV 100.5 fL (80.0-100.0) H 11/08/23 17:30 MCH 30.8 pg (25.0-34.0) 11/08/23 17:30 MCHC 30.7 g/dL (32.0-36.0) L 11/08/23 17:30 RDW Std Deviation 70.3 fL (36.4-46.3) H 11/08/23 17:30 RDW Coeff of Maricarmen 20.4 % (11.5-14.5) H 11/08/23 17:30 Plt Count 189 K/uL (130-400) 11/08/23 17:30 MPV 9.6 fL (9.4-12.4) 11/08/23 17:30 Immature Gran % (Auto) 0.8 % 11/08/23 17:30 Neut % (Auto) 45.8 % 11/08/23 17:30 Lymph % (Auto) 28.5 % 11/08/23 17:30 [place]ier % (Auto) 13.1 % 11/08/23 17:30 Eos % (Auto) 11.3 % 11/08/23 17:30 Baso % (Auto) 0.5 % 11/08/23 17:30 Neut # (Auto) 1.78 K/uL (1.40-6.50) 11/08/23 17:30 Lymph # (Auto) 1.11 K/uL (1.20-3.40) L 11/08/23 17:30 Lanier # (Auto) 0.51 K/uL (0.11-0.59) 11/08/23 17:30 Eos # (Auto) 0.44 K/uL (0.00-0.50) 11/08/23 17:30 Baso # (Auto) 0.02 K/uL (0.00-0.20) 11/08/23 17:30 Immature Gran # (Auto) 0.03 K/uL (0.01-0.20) 11/08/23 17:30 Anisocytosis Present 11/08/23 17:30 PT 12.1 Seconds (9.0-12.0) H 11/08/23 17:30 INR 1.1 (0.9-1.1) 11/08/23 17:30 APTT 31 Seconds (21-31) 11/08/23 17:30 PTT Ratio 1.1 11/08/23 17:30 Sodium 140 mmol/L (136-145) 11/08/23 17:30 Potassium 4.3 mmol/L (3.5-5.1) 11/08/23 17:30 Chloride 101 mmol/L (98-107) 11/08/23 17:30 Carbon Dioxide 25 mmol/L (21-32) 11/08/23 17:30 Anion Gap 14 (3-11) H 11/08/23 17:30 BUN 35 mg/dl (6-23) H 11/08/23 17:30 Creatinine 1.61 mg/dl (0.6-1.4) H 11/08/23 17:30 Est Cr Clr Drug Dosing 32.8 ml/min 11/08/23 17:30 Est GFR ( Amer) 43.3 ml/min 11/08/23 17:30 Est GFR (Non-Af Amer) 37.4 ml/min 11/08/23 17:30 BUN/Creatinine Ratio 21.7 (10-20) H 11/08/23 17:30 Glucose 150 mg/dl (70-99(Fasting)) H 11/08/23 17:30 Calcium 9.0 mg/dl (8.6-10.3) 11/08/23 17:30 Total Bilirubin 0.4 mg/dl (0.2-1.0) 11/08/23 17:30 AST 19 U/L (13-39) 11/08/23 17:30 ALT 7 U/L (7-52) 11/08/23 17:30 Alkaline Phosphatase 39 U/L (34-104) 11/08/23 17:30 Troponin I High Sens 16.8 pg/ml (0-20) 11/08/23 17:30 Total Protein 9.0 gm/dl (6.0-8.3) H 11/08/23 17:30 Albumin 2.9 gm/dl (3.4-5.0) L 11/08/23 17:30 Globulin 6.1 gm/dl (2.5-4.0) H 11/08/23 17:30 Albumin/Globulin Ratio 0.5 (0.9-2) L 11/08/23 17:30 Blood Type A Positive 11/08/23 17:30 Antibody Screen NEGATIVE 11/08/23 17:30 Crossmatch See Detail 11/08/23 17:30 Diagnostic Findings Chest x-ray as per my interpretation cardiomegaly, congestion EKG as per my interpretation : Rate 80, paced rhythm
[2023-11-08] MEDS ORDERED: SODIUM CHLORIDE 0.9% 250 ML IV PRN (20:16)
[2023-11-08 20:25] LABS: Magnesium 2.2 mg/dl (1.7-2.4)
[2023-11-08] MEDS: PANTOprazole 40 MG in DEXTROSE 5% MINI-B 100 ML IV SCH (21:32)
[2023-11-08] MEDS: PANTOPRAZOLE BOLUS/DRIP IV STA (21:32)
[2023-11-08] MEDS ORDERED: GLUCOSE 40% GEL 15 GM TUBE PO PRN (21:52)
[2023-11-08] MEDS ORDERED: GLUCOSE 10 TAB/TUBE PO PRN (21:52)
[2023-11-08] MEDS ORDERED: DEXTROSE 50% 50 ML SYRINGE IV PRN (21:52)
[2023-11-08] MEDS ORDERED: CARBOHYDRATES FOR HYPOGLYCEMIA PO PRN (21:52)
[2023-11-08] MEDS ORDERED: GLUCAGON FOR INJ 1 MG VIAL SQ PRN (21:52)
[2023-11-08] MEDS ORDERED: PROMETHAZINE HCL 6.25 MG in SODIUM CHLORIDE 0.9% 50 ML IV PRN (21:52)
[2023-11-08] MEDS ORDERED: ACETAMINOPHEN 500 MG TAB PO PRN (21:52)
[2023-11-08 22:19] LABS: Estimated Average Glucose 117 mg/dl; Hemoglobin A1C 5.7 % (4.5-5.6)
[2023-11-08] MEDS: INSULIN ASPART PER UNIT CHARGE SC SCH (22:52)
[2023-11-08] MEDS: METHENAMINE HIPPURATE 1 GM TAB PO SCH (22:59)
--- NOTE | 2023-11-09 00:17 | Emergency Department Note ---
History of Present Illness General Chief Complaint: Abnormal Labs/Diagnostic Testing Stated Complaint: PINT OF BLOOD NEEDED, HAD PINT OF DANIEL, REF. Time Seen by Provider: 11/08/23 18:04 History of Present Illness Provider Complaint: + abnormal lab Description of abnormal result: Hemoglobin 6.4 Associated symptoms: + shortness of breath; no fever, no chills, no chest pain, no rash, no malaise, no nausea or no abdominal pain HPI narrative: No melena or hematochezia. No hematuria or dysuria. Home Medications Medication Instructions Recorded Confirmed Type albuterol sulfate 90 mcg/actuation 2 puff inhalation QID PRN 06/07/18 11/08/23 History aerosol inhaler (Proventil HFA) Shortness Of Breath digoxin 125 mcg (0.125 mg) tablet 125 mcg PO 3XWK 06/07/18 11/08/23 History magnesium oxide 400 mg (241.3 mg 400 mg PO PM 06/07/18 11/08/23 History magnesium) tablet potassium chloride 20 mEq 20 meq PO QAM 06/07/18 11/08/23 History tablet,extended release(part/cryst) (Klor-Con M) furosemide 40 mg tablet (Lasix) 40 mg PO QAM 04/25/19 11/08/23 History latanoprost 0.005 % eye drops 1 drp OPB QAM 03/24/20 11/08/23 History pantoprazole 40 mg tablet,delayed 40 mg PO QAM 10/22/21 11/08/23 History release losartan 50 mg tablet 50 mg PO QAM 08/28/22 11/08/23 History metoprolol succinate 50 mg 50 mg PO QAM 08/28/22 11/08/23 History tablet,extended release 24 hr multivitamin 1 tab PO DAILY 08/28/22 11/08/23 History methenamine hippurate 1 gram tablet 1 g PO BID 30 days #60 tabs 11/25/22 11/08/23 Rx glipizide 5 mg tablet, extended 5 mg PO DAILYBB 04/20/23 11/08/23 History release 24 hr dutasteride 0.5 mg capsule 0.5 mg PO QAM 08/22/23 11/08/23 History ondansetron HCl 4 mg tablet 4 mg PO Q6H PRN Nausea And Vomiting 08/22/23 11/08/23 History fluticasone 250 mcg-salmeterol 50 1 inh inhalation BID 10/14/23 11/08/23 History mcg/dose blistr powdr for inhalation sodium chloride 0.65 % nasal spray 0 spray NA Q1H PRN dry nasal 10/14/23 11/08/23 History aerosol (Saline Mist) passages acetaminophen 500 mg tablet 1,000 mg PO BIDM 11/08/23 11/08/23 History (Tylenol Extra Strength) ferrous sulfate 325 mg (65 mg 325 mg PO Q OTHER DAY 11/08/23 11/08/23 History iron) tablet iron sucrose 100 mg iron/5 mL 300 mg IV ONCE 11/08/23 11/08/23 History intravenous solution (Venofer) Allergies Allergy/AdvReac Type Severity Reaction Status Date / Time Sulfa (Sulfonamide Allergy Severe DYSUREA Verified 11/08/23 18:54 Antibiotics) PER [facility] prednisone Allergy Intermediate BLISTERS Verified 11/08/23 18:54 IN THROAT hydrocodone AdvReac Severe ALTERED Verified 11/08/23 18:54 MENTAL STATUS FELECIA Inhibitors AdvReac Intermediate Cough Verified 11/08/23 18:54 pseudoephedrine AdvReac Intermediate TEMP ELEV Verified 11/08/23 18:54 Past Med/Surg History Medical History Epistaxis CKD stage 3 due to type 2 diabetes mellitus no specialist Type II diabetes mellitus NIDDM Peptic ulcer disease GI bleed Elevated prostate specific antigen (PSA) Multiple myeloma History of pacemaker Shingles Encounter for pre-operative examination Severe sepsis Dementia GI bleed per pt's > had 3 units PRBC's [facility] during admission in Jul 2021 Dementia mild at present Presence of combination internal cardiac defibrillator (ICD) and pacemaker follows w/ Dr. Sanford > [employer] > gets checked electronically > PMH provided by , eduardo when last checked in office. Chronic back pain Osteoarthritis Anemia History of colon polyps GERD (gastroesophageal reflux disease) Hearing deficit [place] Glaucoma Aortic aneurysm unsure of last ultrasound/scan -- no surgical intervention. Moderate aortic root dilatation noted on 2018 echo. No AAA noted on [address] COPD (chronic obstructive pulmonary disease) well controlled rare res inh use On home oxygen therapy 2 LPM QHS BPH (benign prostatic hyperplasia) Aortic valve insufficiency Moderate-severe per 11/2018 echo Ischemic cardiomyopathy EF normalized, most recently 55-60% on 11/2018 echo Dyslipidemia Persistent atrial fibrillation Anticoagulation contraindicated per cardiology > ICD Tachy-lorna syndrome S/p dual chamber pacer with upgrade to pacer/ICD 2014 HTN (hypertension) CAD (coronary artery disease) (08/21/14) S/p CABG July 2000 receiving KAUR graft to LAD, saphenous vein graft sequentially from the obtuse marginal to diagonal. S/p stenting of prox Cx 2013 Surgical History History of implantable cardioverter-defibrillator (ICD) placement History of tooth extraction History of esophagogastroduodenoscopy (EGD) History of tonsillectomy History of cataract surgery bilat History of prostate surgery non cancerous History of colonoscopy History of cardiac cath 1999 --> CABG 2013 - 1 stent - [facility] S/P CABG x 3 1999 S/P coronary artery stent placement July 2014 with stenting of the proximal circumflex Family History Grandmother Diabetes Mother Colon cancer Other Melanoma No family history of adverse response to anesthesia Social History Smoking Status: Current every day smoker Tobacco Type: Cigarettes Second Hand Exposure: No; Do You Dip or Chew Tobacco: No; Hx Alcohol Use: No Hx Substance Use: No Preferred Language: Azeri Communication Ability: Effective Communication Ability Comment: upper [place] despite b/l [place] Fingerer Required: No Beliefs That Will Affect Care: None marital status: Current Living Situation: Spouse How many Children do You have: 2 Other Information That Helps Us Care for You: No Feels Safe at Home: Yes Safety Concerns: Feels Safe At This Time Assistive Devices: Cane and Hearing Aid - Bilateral Physical Exam 2 Vital Signs: Vital Signs - 24 hr 11/08/23 17:06 11/08/23 18:20 11/08/23 18:27 Temperature 36.8 C Temperature Source Temporal Artery Sc an Pulse Rate 76 82 Pulse Rate [Apical ] 78 Pulse Rhythm [Apic al] Regular Pulse Strength [Ap ical] Normal Respiratory Rate 20 20 Respiratory Effort / Characteristics Non-Labored Sponta neous Non-Labored Sponta neous Respiratory Depth Normal Normal Respiratory Patter n Regular Regular Blood Pressure 132/67 Blood Pressure [Ri ght Arm] 149/69 H Blood Pressure Radha n 88 Blood Pressure Radha n [Right Arm] 95 Blood Pressure Pos ition [Right Arm] Sitting Pulse Oximetry 96 98 Oxygen Delivery Me thod Room Air Room Air Sepsis Recent Feve r Within 48 Hours No Sepsis New/Unexpla ined Change in Men kalyan Status No Sepsis Action Take n by Nursing No Action Required 11/08/23 19:49 Temperature 37.0 C Temperature Source Oral Pulse Rate 72 Pulse Rate [Apical ] Pulse Rhythm [Apic al] Pulse Strength [Ap ical] Respiratory Rate 22 Respiratory Effort / Characteristics Respiratory Depth Respiratory Patter n Blood Pressure 154/80 H Blood Pressure [Ri ght Arm] Blood Pressure Radha n 104 Blood Pressure Radha n [Right Arm] Blood Pressure Pos ition [Right Arm] Pulse Oximetry 97 Oxygen Delivery Me thod Sepsis Recent Feve r Within 48 Hours Sepsis New/Unexpla ined Change in Men kalyan Status Sepsis Action Take n by Nursing Physical Exam: Physical Exam GENERAL: oriented to person, place, and time. appears well-developed and well- nourished. HENT: Exam performed. - Head: Normocephalic and atraumatic. EYES: Conjunctivae and EOM are normal. Right eye exhibits no discharge. Left eye exhibits no discharge. No scleral icterus. NECK: Normal range of motion. Neck supple. No JVD present. CV: Normal rate, regular rhythm, normal heart sounds and intact distal pulses. There is no peripheral edema. Palpable radial pulses bue. PULM/CHEST: Effort normal and breath sounds normal. No respiratory distress. No stridor. no wheezes. no rales. ABD: The abdomen is soft. There is no tenderness. Rectal: Melanotic stool Hemoccult positive. NEURO: Motor and sensation grossly intact. SKIN: Skin is warm and dry. He is not diaphoretic. PSYCH: normal mood and affect. Behavior is normal. Judgment and thought content normal. Course Course 1803: The patient was evaluated in room C4. A complete history and physical exam was performed Administered Medications Sodium Chloride (Nss) 250 mls @ 15 mls/hr IV .[id number] PRN PRN Reason: For Transfusion Duration Stop: 11/09/23 04:44 Last Admin: 11/08/23 20:06 Dose: 15 mls/hr Documented By: RUSSEL Pantoprazole Sodium 40 mg/ (Dextrose) 100 mls @ 20 mls/hr IV Q5H ALIN Stop: 12/08/23 18:59 Last Admin: 11/08/23 21:32 Dose: 8 mg/hr, 20 mls/hr Documented By: RUSSEL Insulin Aspart (Insulin Aspart Per Unit Charge) 0 units SC Q6 ALIN Stop: 12/08/23 22:14 Last Admin: 11/08/23 22:52 Dose: Not Given Documented By: RUSSEL Methenamine Hippurate (Methenamine Hippurate 1 Gm Tab) 1 gm PO BID ALIN Stop: 12/08/23 21:51 Last Admin: 11/08/23 22:59 Dose: 1 gm Documented By: RUSSEL Discontinued Medications Furosemide (Furosemide 40 Mg/4 Ml Vial) 40 mg IV NOW STA Stop: 11/08/23 19:23 Last Admin: 11/08/23 19:44 Dose: 40 mg Documented By: RUSSEL Pantoprazole Sodium 80 mg/ (Dextrose) 120 mls @ 480 mls/hr IV NOW ONE Stop: 11/08/23 18:58 Last Infusion: 11/08/23 21:32 Dose: Infused Documented By: Admin: 11/08/23 20:04 Dose: 480 mls/hr Documented By: RUSSEL Pantoprazole Sodium (Pantoprazole Bolus/Drip) 1 each IV NOW STA Stop: 11/08/23 18:45 Last Admin: 11/08/23 21:32 Dose: Not Given Documented By: RUSSEL Medical Decision Making Laboratory Data Attestation: I reviewed the patient's lab results. 11/08/23 17:30 11/08/23 17:30 Lab Results 11/08/23 Range/Units 17:30 WBC 3.89 L (4.8-10.8) K/ul RBC 2.14 L (4.70-6.10) M/uL Hgb 6.6 L* (14.0-18.0) g/dl Hct 21.5 L (42.0-52.0) % MCV 100.5 H (80.0-100.0) fL MCH 30.8 (25.0-34.0) pg MCHC 30.7 L (32.0-36.0) g/dL RDW Std Deviation 70.3 H (36.4-46.3) fL RDW Coeff of Maricarmen 20.4 H (11.5-14.5) % Plt Count 189 (130-400) K/uL MPV 9.6 (9.4-12.4) fL Immature Gran % (Auto) 0.8 % Neut % (Auto) 45.8 % Lymph % (Auto) 28.5 % [place] % (Auto) 13.1 % Eos % (Auto) 11.3 % Baso % (Auto) 0.5 % Neut # (Auto) 1.78 (1.40-6.50) K/uL Lymph # (Auto) 1.11 L (1.20-3.40) K/uL [place] # (Auto) 0.51 (0.11-0.59) K/uL Eos # (Auto) 0.44 (0.00-0.50) K/uL Baso # (Auto) 0.02 (0.00-0.20) K/uL Immature Gran # (Auto) 0.03 (0.01-0.20) K/uL Anisocytosis Present PT 12.1 H (9.0-12.0) Seconds INR 1.1 (0.9-1.1) APTT 31 (21-31) Seconds PTT Ratio 1.1 Sodium 140 (136-145) mmol/L Potassium 4.3 (3.5-5.1) mmol/L Chloride 101 (98-107) mmol/L Carbon Dioxide 25 (21-32) mmol/L Anion Gap 14 H (3-11) BUN 35 H (6-23) mg/dl Creatinine 1.61 H (0.6-1.4) mg/dl Est Cr Clr Drug Dosing 32.8 ml/min Est GFR ( Amer) 43.3 ml/min Est GFR (Non-Af Amer) 37.4 ml/min BUN/Creatinine Ratio 21.7 H (10-20) Glucose 150 H (70-99(Fasting)) mg/dl Estimat Average Glucose 117 mg/dl Hemoglobin A1c 5.7 H (4.5-5.6) % Calcium 9.0 (8.6-10.3) mg/dl Magnesium 2.2 (1.7-2.4) mg/dl Total Bilirubin 0.4 (0.2-1.0) mg/dl AST 19 (13-39) U/L ALT 7 (7-52) U/L Alkaline Phosphatase 39 (34-104) U/L Troponin I High Sens 16.8 (0-20) pg/ml Total Protein 9.0 H (6.0-8.3) gm/dl Albumin 2.9 L (3.4-5.0) gm/dl Globulin 6.1 H (2.5-4.0) gm/dl Albumin/Globulin Ratio 0.5 L (0.9-2) Blood Type A Positive Antibody Screen NEGATIVE Crossmatch See Detail ECG Data Attestation: I personally reviewed and interpreted this ECG as follows: Additional Comments: Paced rhythm with rate of 79. QRS 164 QTc 465. No ectopy. MDM Narrative Cardiac monitoring: An order was placed for continuous cardiac monitoring. The monitor shows a rate of 80 with paced rhythm interpreted by me Patient was seen during a time of extreme volume and extreme acuity in the emergency department. Nursing triage protocols were initiated and labs were drawn by protocol in the triage area. Hemoglobin 6.6. Patient be transfused 1 unit packed red blood cells started on Protonix bolus and drip [facility] Spoke with Myra who stated to admit to Dr. Sanford. Impression & Plan GIB (gastrointestinal bleeding) Critical Care Time Critical Care Time: Yes Total Critical Care Time: 39 I have personally spent greater than 39 minutes of critical care time in the direct management of this patient. This includes bedside care, interpretation of diagnostic studies, and testing, discussion with consultants, patient, and family members, and other required patient management activities. This 39 minutes is in excess of all separately billable procedures. Discharge Plan Visit Data Chief Complaint: Abnormal Labs/Diagnostic Testing Stated Complaint: PINT OF BLOOD NEEDED, HAD PINT OF IRON, DR. REF. ED Provider: Luis Hardy Discharge Problem: GIB (gastrointestinal bleeding) Patient Disposition: Admitted As Inpatient Discharge Instructions Interventions: ED Discharge Assessment Last Done: 11/08/23 21:53 Discharge Problem: GIB (gastrointestinal bleeding) Qualifiers: GI bleed type/associated pathology: melena Qualified Code(s): K92.1 - Melena
--- OUTSIDE RECORDS SUMMARY | 2023-11-09 04:49 | External Medical Summary ---
Author Name Unknown Address Unknown Organization [id number]:[facility] [place] [address] Laboratory Report Ordering Provider Test Date Status DEB BULL 11/08/2023 14:01:58 Final Observation Date Value Abnormality Reference (Units ) Status WBC, Total 11/08/2023 14:01:58 3.58 Below low normal 4. 00-10.80 (K/uL) Final RBC 11/08/2023 14:01:58 2.07 4.50-5.25 (M/uL) Final Hemoglobin 11/08/2023 14:01:58 6.4 Below low normal 14 .0-16.8 (g/dL) Final HCT 11/08/2023 14:01:58 21.6 Below low normal 40. 0-48.4 (%) Final MCV 11/08/2023 14:01:58 104.3 82.0-99.5 (fL) Final MCH 11/08/2023 14:01:58 30.9 27.0-34.0 (pg) Final MCHC 11/08/2023 14:01:58 29.6 32.0-36.0 (g/dL) Final RDW 11/08/2023 14:01:58 20.3 11.5-15.5 (%) Final Platelets 11/08/2023 14:01:58 175 140-400 (K /uL) Final MPV 11/08/2023 14:01:58 9.1 6.6-11.1 ( fL) Final Performing Location [facility] [place] [address]
--- OUTSIDE RECORDS SUMMARY | 2023-11-09 04:49 | External Medical Summary ---
Author Name Unknown Address Unknown Organization K09:[facility] [place] [address] Laboratory Report Ordering Provider Test Date Status DEB BULL 11/08/2023 14:01:58 Final Observation Date Value Abnormality Reference (Units ) Status SYNC LEUKOCYTES IN BLOOD BY AUTOMATED COUNT 11/08/2023 14:01:58 3.58 Below low normal 4.00-10.80 (K/uL) Final Segs 11/08/2023 14:01:58 46.0 40.0-75.0 (%) Final Lymphs % 11/08/2023 14:01:58 27.4 18.0-42.0 (%) Final Monos 11/08/2023 14:01:58 14.0 Above high normal 1.0-11.0 (%) Final Eosinophils 11/08/2023 14:01:58 12.3 Above high normal 0.0-6.0 (%) Final Basos 11/08/2023 14:01:58 0.3 0.0-2.0 (%) Final Absolute Segs 11/08/2023 14:01:58 1.65 Below low normal 1.80-7.70 (K/uL) Final Lymphs, absolute 11/08/2023 14:01:58 0.98 Below low normal 1.00-4.80 (K/ul) Final Monos, Abs 11/08/2023 14:01:58 0.50 0.00-1.10 (K/uL) Final Eos, Abs 11/08/2023 14:01:58 0.44 0.00-0.70 (K/uL) Final Basos, Abs 11/08/2023 14:01:58 0.01 0.00-0.20 (K/uL) Final Performing Location [facility] [place] [id number]
--- OUTSIDE RECORDS SUMMARY | 2023-11-09 04:50 | External Medical Summary | Summary of Care ---
Author Name Unknown Organization [facility] Address [address] [place] [address] Phone [phone] Care Team Providers Care Hand Sander Name Role Phone Zenobia Lyon MD Primary Care Provide r Reason for Visit * Reason Onset Date Comments [facility]: Maintenance 11/03/2023 Encounter Details Date Type Department Care Team (Late st Contact Info) Description 11/03/2023 Telephone [facility], [facility] [address] [facility] [place] [address] [facility], Nurse [address] [place] [address] [facility]: Maintenance Allergies Active Allergy Reactions Criticality Noted Date Comments James Inhibitors 09/10/2002 cough on prinivil Hydrocodone 09/05/2022 Family states AMS change when taken Prednisone 05/26/2011 Blisters in throat Sulfa Antibiotics 03/19/2001 dysurea documented as of this encounter (statuses as of 11/03/2023) Medications Medication Sig Dispensed Refills Start Date [...] 19, 2023. 1 Each 0 05/19/2023 Active Digoxin 125 MCG Oral Tablet (Lanoxin) TAKE ONE TABLET 3 days per week 36 Tablet 3 06/21/2023 Active Pantoprazole Sodium 40 MG Oral Tablet Delayed Release (Protonix)Indication s:GERD (gastroesophageal reflux disease) Take 1 Tablet by mouth daily. 90 Tablet 1 06/21/2023 Active Clopidogrel Bisulfate 75 MG Oral Tablet (pLAVix)Indications: Atherosclerosis of [place] coronary artery of [place] heart without angina pectoris Take 1 Tablet [...] 90 Tablet 0 09/18/2023 Active Saline Nasal [place] 0.65 % Nasal Solution (Saline Mist [place]) Use 2 sprays into Nostril every 1 hour as needed for dry nasal passages 44 mL 0 09/27/2023 Active Ferrous Sulfate 325 (65 Fe) MG Oral Tablet (Feosol)Indications: 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 0 10/27/2023 Active documented as of this encounter (statuses as of 11/03/2023) Active Problems Patient Care Coordination No te [...] in stool Problem Noted Date Diagnosed Date Primary open-angle glaucoma, bilateral, mild sta ge 10/27/2023 History of recurrent UTIs 10/27/2023 Last Assessment & Plan: Recent admission for UTI with sepsis requiring IV antibiotics Continue prophylactic methenamine bid Hemorrhagic disorder due to extrinsic circulating anticoagulants 08/28/2023 Last Assessment & Plan: Continues plavix daily- Protein-calorie malnutrition 07/19/2023 Chronic combined systolic (c ongestive) and diastolic (congestive) heart failure 10/12/2022 Infrarenal abdominal aortic aneurysm (AAA) witho ut rupture 09/22/2022 Overview: Noted on CT Sep 2022 (enlarged from 2.6 to 2.9 CM) Multiple myeloma 09/21/2022 Overview: Bone marrow examination (09/20/2022: - Plasma cell myeloma, plasma cells 70%. 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 05/04/2022 Last Assessment & Plan: Mild Spouse providing / care Type 2 diabetes mellitus wit h stage [...] Per CKD protocol Last Assessment & Plan: "RED FLAG" HF Symptoms: Leg Swelling (Examples: "I can't wear certain socks or shoes", "My pants feel tight") Increased dyspnea on exertion (Example: "I can't walk to the kitchen or up the stairs") Medication Regimen: Beta Shawn Therapy: Metoprolol Succinate (ER) JAMES Inhibitor/ARB Therapy: Losartan Diuretic therapy: Lasix SGLT2 Inhibitor: No Current SGLT2 (Describe in the Comments) Remote Patient Monitoring Vendor: No Connected RPM Device(s): No current devices Self - Management Plan Other/Additional Comments: will reach out to 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 O2 stable on room air -continue advair. BID and albuterol prn Other specified peripheral vascular diseases DISH (diffuse idiopathic skeletal hyperostosis) 05/25/2020 Chronic atrial fibrillation 12/04/2019 Last Assessment & Plan: Rate controlled Not on anticoag due to frequent falls Primary open-angle glaucoma, left eye, mild stag e 12/04/2019 Chronic prostatitis with hematuria 06/26/2018 Hx of nonmelanoma skin cancer 01/02/2018 Overview: basal cell carcinoma (R anti-helix, R superior cheek, central upper back 07/23) Gastroesophageal reflux disease with esophagitis 01/25/2016 Last Assessment & Plan: Asymptomatic -continue pantoprazole Automatic implantable cardioverter-defibrillator in situ 03/25/2015 Overview: Biventricular Longstanding persistent atrial fibrillation 01/31 Last Assessment [...] & Plan: Urinating without difficulty -Continue Dutesteride CORONARY ATHEROSCLEROSIS OF UNSPECIFIED TYPE OF VESSEL, [place] OR GRAFT Last Assessment & Plan: Stable. 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 documented as of this encounter (statuses as of 11/03/2023) Resolved Problems Problem Noted Date Diagnosed Date [...] without hematuria 05/30/2022 01/24/2023 Overview: Xavier to [facility] 04/20-04/29 urosepsis multi drug resistant E. 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 Go to Snapshot for study details. Heart failure, systolic, due to CAD 02/27/2015 [...] 07/12/2011 Overview: ICD-10 update of inactive term Elevated prostate specific antigen (PSA) 02/03/2004 10/26/2023 Coronary atherosclerosis 09/10/200207/2012 HYPERTENSION NOS 08/02/2002 08/25/2009 Overview: Modified per HTN protocol #16. Sun-damaged skin 07/19/2002 01/02/2018 SEBORRHEIC KERATOSIS Lt. glenn ek & Lt. leg ; Rt. buddhism 07/0207/18/2002 07/15/2015 Dyslipidemia, goal to be determined [...] as of this encounter (statuses as of 11/03/2023) Immunizations Name Administration Dates Next Due COVID-19 mRNA, LNP-s, No Pre serve, 2-Dose Series (Moderna) 08/24/2021,12/07/2020,11/09/2020 COVID-19, MRNA-LNP, 23-24, P F, 30 MCG/0.3 mL, 12 YRS AND ABOVE, IM (Magiq-Comirnat) 07/19/2023 Covid-19, Mrna, Lnp-s, Pf, B ivalent, [...] Miscellaneous Notes * Telephone Encounter - Carly Cano, SANKET - 11/03/2023 3:15 PM EST Phone call from / Remedios stating her was having weekly blood work with the Mobile Unit. Remedios stated her had an appointment with Dr. Sykes today and her is going to be having weekly Iron infusions , starting next Monday. said weekly blood work with mobile unit can be stopped per Dr. Sykes. Informed I will send message to Dr.. Sykes to confirm if weekly blood work is no longer neededbefore I cancel all of his weekly mobile appointments. Carly Cano club licenseeHot Mill Shearer [facility] documented in this encounter Plan of Treatment Upcoming Encounters Date Type Department Care Team (Late st Contact Info) Description 11/08/2023 9:20 AM EST Laboratory Lab Mobile Phlebotomy [facility] [address] [place] [address] [facility] Mobile Home Draw [address] [place] [address] 11/13/2023 10:00 AM EST Home Visit [facility] [address] [place] [address] Lila Brownlee, SANKET [address] [place] [address] 11/15/2023 9:10 AM EST Laboratory Lab Mobile Phlebotomy [facility] [address] [place] [address] [facility] Mobile Home Draw [address] [place] [address] 11/15/2023 9:20 AM EST Laboratory Lab Mobile Phlebotomy [facility] [address] [place] [address] G[facility], Gml Mobile Home Draw [address] [place] [address] 11/29/2023 9:10 AM EST Laboratory Lab Mobile Phlebotomy [facility] [address] [place] [address] Gm, Gml Mobile Home Draw [address] [place] [address] 12/13/2023 9:10 AM EDT Laboratory Lab Mobile Phlebotomy [facility] [address] [place] [address] [facility], [facility] Mobile Home Draw [address] [place] [address] 01/04/2024 10:20 AM EDT Office Visit Otolaryngology [facility] [address] [place] [address] Kasi Tejeda PA-C [address] [place] [address] 01/26/2024 11:20 AM EDT Office Visit Family Medicine [address] [place] [phone] Zenobia Lyon MD [address] [place] [address] [place] [address] 03/07/2024 1:00 PM EDT Office Visit Cardiology [address] [place] [address] Chris Choudhury PADereckC [address] [place] [address] 03/08/2024 2:45 PM EDT Office Visit Hematology/Oncology [address] [place] [address] Pietro Sykes MD [address] [place] [address] Scheduled Procedures Name Priority Associated Diagnoses Date/Ti me COLONOSCOPY FLEXIBLE PROXIMA L DIAGNOSTIC Recall History of colonic polyps Health Maintenance Due Date Last Done Comments Alpha-1 Antitrypsin 1953 Hepatitis B (1 of 3 - Risk 3-dose series) 1994 DTaP,Tdap,and Td Vaccines (2 - Td or Tdap) 01/11/2023 01/11/2013, 04/01/2003, 04/01/2003 HbA1c 07/27/2023 01/25/2023, 03/2022, 01/14/2022, Additional history exists Depression Screening 01/25/2024 01/24/2023 DIG LEVEL FOR MEDICATION MONITORING YEARLY 01/26/2024 01/25/2023, 04/17/2021, 03/09/2020, Additional history exists Albumin/Creatinine Ratio 01/27/2024 023, 01/14/2022, 08/14/2017, Additional history exists Diabetic Eye Exam 07/19/2024 07/19/2023 (Do ne elsewhere), 10/28/2021, 10/28/2021, Additional history exists Diabetic Foot Exam 07/19/2024 07/19/2023, 0 01/14/2022, 12/24/2020, Additional history exists CKD PHOS USE SMARTSET 20276 07/25/202407/03, 09/07/2022, 09/05/2022, Additional history exists CKD HGB USE SMARTSET 13545 11/02/202411/02, 11/02/2023, 10/25/2023, Additional history exists O2 ASSESSMENT COMPLETED IN PAST YEAR FOR COPD 11/03/2024 11/03/2023 COLONOSCOPY-EVERY 5 YRS AGES 18-100 04/25/2028 04/25/2023, [...] encounter Medical Devices Implanted Type Area Home Visitor Home Base Head Start Device Identifier Shelf Expiration Date Model / Serial / Lot Screw T2 Alpha Lock 5x47.5mm - [id number] Implanted:Qty: 1 on 09/06/2022 by Sean Silva MD at OR [facility] Left: Leg Upper RICHELLE : TRAUMA 06/01/2032 [id number] / / [id number] documented as of this encounter Advance Directives Documents on File Type Date Recorded Patient County Library Director Expl anation POLST 10/17/2022 [place] DERS [...] Agen t (per Health Care Power of Classified Copy Control Clerk document) Reji Trejo Adult Child First Alterna te Health Care Agent (per Health Care Power of Classified Copy Control Clerk document) Bowen Palaciosmel Adult Child First Alternate Health Care Agent (per Health Care Power of Classified Copy Control Clerk document) Care Teams Hand Sander Relationship Specialty Start Date End Date Zenobia Lyon MD [address] [place] [address] [place] [address] PCP - General Family Medicine 05/22/23 documented as of this encounter
--- OUTSIDE RECORDS SUMMARY | 2023-11-09 04:50 | External Medical Summary | Summary of Care ---
Author Name Unknown Organization [facility] Address [address] [place] [address] Phone [phone] Care Team Providers Care Pants Closer Name Role Phone Zenobia Lyon MD Primary Care Provide r Reason for Visit * Reason Onset Date Comments [facility]: Maintenance 11/06/2023 Encounter Details Date Type Department Care Team (Late st Contact Info) Description 11/06/2023 Telephone [facility], [facility] [address] [place] [address] [facility], Nurse [address] [place] [address] [facility]: Maintenance Allergies Active Allergy Reactions Criticality Noted Date Comments James Inhibitors 09/10/2002 cough on prinivil Hydrocodone 09/05/2022 Family states AMS change when taken Prednisone 05/26/2011 Blisters in throat Sulfa Antibiotics 03/19/2001 dysurea documented as of this encounter (statuses as of 11/06/2023) Medications Medication Sig Dispensed Refills Start Date [...] MG Oral Tablet (pLAVix)Indications: Atherosclerosis of [place] coronary artery of [place] heart without angina pectoris Take 1 Tablet [...] 90 Tablet 0 09/18/2023 Active Saline Nasal [place] 0.65 % Nasal Solution (Saline Mist [place]) Use 2 sprays into Nostril every 1 hour as needed for dry nasal passages 44 mL 0 09/27/2023 Active Ferrous Sulfate 325 (65 Fe) MG Oral Tablet (Feosol)Indications: 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 0 10/27/2023 Active documented as of this encounter (statuses as of 11/06/2023) Active Problems Patient Care Coordination No te [...] Plan Other/Additional Comments: will reach out to [facility] Exacerbation Plan BMP Chest X-Ray Additional Comments: [...] CORONARY ATHEROSCLEROSIS OF UNSPECIFIED TYPE OF VESSEL, [place] OR GRAFT Last Assessment & Plan: Stable. 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 documented as of this encounter (statuses as of 11/06/2023) Resolved Problems Problem Noted Date Diagnosed Date [...] 05/30/2022 01/24/2023 Overview: Xavier to [facility] 04/20-04/29 [...] as of this encounter (statuses as of 11/06/2023) Immunizations Name Administration Dates Next Due COVID-19 mRNA, LNP-s, No Pre serve, 2-Dose Series (Moderna) 08/24/2021,12/07/2020,11/09/2020 COVID-19, MRNA-LNP, 23-24, P F, 30 MCG/0.3 mL, 12 YRS AND ABOVE, IM ([employer]-Comirnat) 07/19/2023 Covid-19, Mrna, Lnp-s, Pf, B [...] encounter Miscellaneous Notes * Telephone Encounter - Asmita Conner RN - 11/06/2023 9:29 AM EST Pt.'s Remedios is calling [facility] to report that pt will be receiving Iron injectios at Dr Sykes's office weekly x 4. She requests G[facility] cx visits x 4 wks as labs will be drawn at MD office on the days of the Ireon injections. Per Remedios';s request, G[facility] lab draw visits were cx on 11/08, 11/15, 11/29/23. Routing to Care team as fyi. Asmita Conner RN [facility] Intake Triage Coordinator [phone] documented in this encounter Plan of Treatment Upcoming Encounters Date Type Department Care Team (Late st Contact Info) Description 11/13/2023 10:00 AM EST Home Visit [facility] [address] [place] [address] Lila Brownlee RN [address] [place] [address] 12/13/2023 9:10 AM EDT Laboratory Lab Mobile Phlebotomy [facility] [address] [facility] [place] [address] [facility], l Mobile Home Draw [address] [facility] [place] [address] 01/04/2024 10:20 AM EDT Office Visit Otolaryngology [facility] [address] [place] [address] Kasi Tejeda PA-C [address] [place] [address] 01/26/2024 11:20 AM EDT Office Visit Family Medicine [address] [place] [phone] Zenobia Lyon MD [address] [place] [address] [place] [address] 03/07/2024 1:00 PM EDT Office Visit Cardiology [address] [place] [address] Chris Choudhury PA-C [address] [place] [address] 03/08/2024 2:45 PM EDT Office Visit Hematology/Oncology [facility] [address] [facility] [place] [address] Pietro Sykes MD [address] [place] [address] Scheduled Procedures Name Priority Associated Diagnoses Date/Ti [...] 01/27/202401/26/ 023, 01/14/2022, 08/14/2017, Additional history exists Diabetic Eye Exam 07/19/2024 07/19/2023 (Do ne elsewhere), 10/28/2021, 10/28/2021, Additional history exists Diabetic Foot Exam 07/19/2024 07/19/2023, 0 01/14/2022, 12/24/2020, Additional history exists CKD PHOS USE SMARTSET 72754 07/25/202407/03, 09/07/2022, 09/05/2022, Additional history exists CKD HGB USE SMARTSET 59609 11/02/202411/02, 11/02/2023, 10/25/2023, Additional history exists O2 [...] this encounter Medical Devices Implanted Type Area Creative Perfumer Device Identifier Shelf Expiration Date Model / Serial / Lot Screw T2 Alpha Lock 5x47.5mm - [id number] Implanted:Qty: 1 on 09/06/2022 by Sean Silva MD at OR [facility] Left: Leg Upper RICHELLE : TRAUMA 06/01/2032 [id number] / / [id number] documented as of this encounter Advance Directives Documents on File Type Date Recorded Patient Dip Brazier Expl anation POLST 10/17/2022 [place] [...] Agen t (per Health Care Power of Wax Pumper document) Reji Tello Dotts Adult Child First Alterna te Health Care Agent (per Health Care Power of Wax Pumper document) Bowen Tello Adult Child First Alternate Health Care Agent (per Health Care Power of Wax Pumper document) Care Teams Pants Closer Relationship Specialty Start Date End Date Zenobia Lyon MD [address] [place] [address] [place] [phone] PCP - General Family Medicine 05/22/23 documented as of this encounter
--- OUTSIDE RECORDS SUMMARY | 2023-11-09 04:50 | External Medical Summary | Summary of Care ---
Author Name Unknown Organization [facility] Address [address] [place] [address] Phone [phone] Care Team Providers Care Die Operator Name Role Phone Zenobia Lyon MD Primary Care Provide r Reason for Visit * Reason Onset Date Comments Test Results Lab 11/03/2023 Encounter Details Date Type Department Care Team (Late st Contact Info) Description 11/03/2023 Telephone Hematology/Oncology Treatment, [place] [address] [place], [place] [phone] Pietro Sykes MD [address] [place] [address] Test Results Lab Allergies Active Allergy Reactions [...] 90 Tablet 0 09/18/2023 Active Saline Nasal [place] 0.65 % Nasal Solution (Saline Mist [place]) Use 2 sprays into Nostril every 1 [...] Last Assessment & Plan: Mild Spouse providing 24/04 care Type 2 diabetes mellitus wit h [...] Plan Other/Additional Comments: will reach out to [facility] Exacerbation Plan BMP Chest X-Ray Additional Comments: [...] hematuria 05/30/2022 01/24/2023 Overview: Xavier to [facility] 04/20-04/29 urosepsis [...] MCG/0.3 mL, 12 YRS AND ABOVE, IM (Health Data Minder-Cox Monettirnat) 07/19/2023 Covid-19, Mrna, Lnp-s, Pf, B ivalent, [...] encounter Miscellaneous Notes * Telephone Encounter - Patria Westbrook OSA - 11/03/2023 11:22 AM EST Left message for pt to call back and schedule * Telephone Encounter - Jeniffer Spence RN - 11/03/2023 11:02 AM EST Ordered received for Venofer. [place] plan built and routed to provider for signature. Scheduling: please coordinate with the patient for his weekly Venofer x 4/draw CBC with IV start. 2hour treatment. Patient and provider prefer this to be done every MONDAY. Thank you! * Telephone Encounter - Tiny Chase RN - 11/03/2023 8:27 AM EST Patient to receive 1 unit PRBC. Called [facility] blood bank ([place]). They can get blood. Called [facility] ([facility]). Patient scheduled for today at 1130am. Patients verbalized understanding of appt time. Will try to get patient here early for appy with Dr Sykes. Faxed order to [facility]/ blood bank. * Telephone Encounter - Tiny Chase RN - 11/03/2023 8:14 AM EST ----- Message from Pietro Sykes MD sent at 11/03/2023 6:21 AM EST ----- Blood workup done on 11/02/2023: - Hemoglobin level 6.8. I would transfuse one unit of PRBC, 20 billions of Lasix IV after the blood transfusion is over. I am also seeing him today at 10:45 AM. documented in this encounter Plan of Treatment Upcoming Encounters Date Type Department Care Team (Late st Contact Info) Description 11/08/2023 9:20 AM EST Laboratory Lab Mobile Phlebotomy C [address] [place] [address] [facility], [facility] Mobile Home Draw [address] [place] [address] 11/13/2023 10:00 AM EST Home Visit [facility] [address] [place] [address] Lila Brownlee RN [address] [place] [address] 11/15/2023 9:10 AM EST Laboratory Lab Mobile Phlebotomy [facility] [address] [place] [address] [facility], [facility] Mobile Home Draw [address] [place] [address] 11/15/2023 9:20 AM EST Laboratory Lab Mobile Phlebotomy [facility] [address] [place] [address] [facility], [facility] Mobile Home Draw [address] [place] [address] 11/29/2023 9:10 AM EST Laboratory Lab Mobile Phlebotomy C [address] [place] [address] [facility], [facility] Mobile Home Draw [address] [place] [address] 12/13/2023 9:10 AM EDT Laboratory Lab Mobile Phlebotomy [facility] [address] [place] [address] [facility] Mobile Home Draw [address] [place] [address] 01/04/2024 10:20 AM EDT Office Visit Otolaryngology [facility] [address] [place] [address] Kasi Tejeda PA-C [address] [place] [address] 01/26/2024 11:20 AM EDT Office Visit Family Medicine [address] [place] [phone] Zenobia Lyon MD [address] [place] [address] [place] [address] 03/07/2024 1:00 PM EDT Office Visit Cardiology [address] [place] [address] Chris Choudhury PA-C [address] [place] [address] 03/08/2024 2:45 PM EDT Office Visit Hematology/Oncology [facility] [place] [address] [facility] [place] [address] Pietro Sykes MD [address] [facility] [place] [address] Scheduled Procedures Name Priority Associated Diagnoses Date/Ti [...] Additional history exists CKD PHOS USE SMARTSET 70512 07/25/202407/03, 09/07/2022, 09/05/2022, Additional history exists CKD HGB USE SMARTSET 72861 11/02/202411/02, 11/02/2023, 10/25/2023, Additional history exists O2 [...] this encounter Medical Devices Implanted Type Area Carbon Electrodes Supervisor Device Identifier Shelf Expiration Date Model / Serial / Lot Screw T2 Alpha Lock 5x47.5mm - [id number] Implanted:Qty: 1 on 09/06/2022 by Sean Silva MD at [facility] Left: Leg Upper RICHELLE : TRAUMA 06/01/2032 [id number] / / [id number] documented as of this encounter Advance Directives Documents on File Type Date Recorded Patient Early Morning Expl anation POLST 10/17/2022 [place] DERS [...] Agen t (per Health Care Power of Psych Coordinator document) Reji Trejo Adult Child First Alterna te Health Care Agent (per Health Care Power of Psych Coordinator document) Bowen Tello Adult Child First Alternate Health Care Agent (per Health Care Power of Psych Coordinator document) Care Teams Die Operator Relationship Specialty Start Date End Date Zenobia Lyon MD [address] [place] [address] [place] [phone] PCP - General Family Medicine 05/22/23 documented as of this encounter
--- OUTSIDE RECORDS SUMMARY | 2023-11-09 04:50 | External Medical Summary | Summary of Care ---
Author Name Unknown Organization [facility] Address [address] [place] [address] Phone [phone] Care Team Providers Care Pipe Caulker Name Role Phone Zenobia Lyon MD Primary Care Provide r Reason for Visit * Reason Onset Date Comments Test Results Lab 11/03/2023 Encounter Details Date Type Department Care Team (Late st Contact Info) Description 11/03/2023 Telephone Hematology/Oncology Treatment, [place] [address] [place] [address] Pietro Sykes MD [address] [place] [address] Test Results Lab Allergies Active Allergy Reactions [...] 75 MG Oral Tablet (pLAVix)Indications: Atherosclerosis of [place] coronary artery of [place] heart without angina pectoris Take 1 [...] 90 Tablet 0 09/18/2023 Active Saline Nasal [place] 0.65 % Nasal Solution (Saline Mist [place]) Use 2 sprays into Nostril every 1 [...] Plan Other/Additional Comments: will reach out to [facility] Exacerbation Plan BMP Chest X-Ray Additional [...] OF UNSPECIFIED TYPE OF VESSEL, [place] OR GRAFT Last Assessment & Plan: Stable. [...] MCG/0.3 mL, 12 YRS AND ABOVE, IM ([facility]) 07/19/2023 Covid-19, Mrna, Lnp-s, Pf, B ivalent, [...] Telephone Encounter - Patria Westbrook OSA - 11/06/2023 2:33 PM EST Apt is scheduled for first inf * Telephone Encounter - Patria Westbrook OSA - 11/03/2023 11:22 AM EST Left message for pt to call back and schedule * Telephone Encounter - Jeniffer Spence RN - 11/03/2023 11:02 AM EST Ordered received for Venofer. Calliham plan built and routed to provider for signature. Scheduling: please coordinate with the patient for his weekly Venofer x 4/draw CBC with IV start. 2hour treatment. Patient and provider prefer this to be done every MONDAY. Thank you! * Telephone Encounter - Tiny Chase RN - 11/03/2023 8:27 AM EST Patient to receive 1 unit PRBC. Called [facility] blood bank (Elissa). They can get blood. Called [facility] (Umm). Patient scheduled for today at [...] Team (Late st Contact Info) Description 11/08/2023 2:00 PM EST Hem/Onc Treatment Hematology/Oncology Treatment, [place] [address] [place] [address] Nga, Chair 9 Hem Onc Scenery [address] [place] [address] 11/13/2023 10:00 AM EST Home Visit [facility] [address] [place] [address] Lila Brownlee RN 132 [facility] [place] [address] 12/13/2023 9:10 AM EDT Laboratory Lab Mobile Phlebotomy [facility] [address] [place] [address] [facility] Mobile Home Draw [address] [place] [address] 01/04/2024 10:20 AM EDT Office Visit Otolaryngology [facility] [address] [place] [address] Kasi Tejeda PA-C [address] [place] [address] 01/26/2024 11:20 AM EDT Office Visit Family Medicine [address] [place] [phone] Zenobia Lyon MD [address] [place] [address] [place] [address] 03/07/2024 1:00 PM EDT Office Visit Cardiology [address] [place] [address] Chris Choudhury PA-C [address] [place] [address] 03/08/2024 2:45 PM EDT Office Visit Hematology/Oncology [address] [place] [address] Pietro Sykes MD 200 [facility] [place] [address] Scheduled Procedures Name Priority Associated Diagnoses Date/Ti [...] Additional history exists CKD PHOS USE SMARTSET 39153 07/25/202407/03, 09/07/2022, 09/05/2022, Additional history exists CKD HGB USE SMARTSET 24444 11/02/202411/02, 11/02/2023, 10/25/2023, Additional history exists O2 [...] this encounter Medical Devices Implanted Type Area Licensed Customs Broker Device Identifier Shelf Expiration Date Model / Serial / Lot Screw T2 Alpha Lock 5x47.5mm - [id number] Implanted:Qty: 1 on 09/06/2022 by Sean Silva MD at [facility] Left: Leg Upper RICHELLE : TRAUMA 06/01/2032 [id number] / / [id number] documented as of this encounter Advance Directives Documents on File Type Date Recorded Patient Crab Picker Expl anation POLST 10/17/2022 [place] FOR LIFE-SUSTAINING TREATMENT POLST 09/10/2022 [place] RUST FOR LIFE-SUSTAINING TREATMENT Latest Code Status on [...] Agen t (per Health Care Power of Warp Scouring Vat Tender document) Reji Prabhakarts Adult Child First Alterna te Health Care Agent (per Health Care Power of Warp Scouring Vat Tender document) Bowen Tello Adult Child First Alternate Health Care Agent (per Health Care Power of Warp Scouring Vat Tender document) Care Teams Pipe Caulker Relationship Specialty Start Date End Date Zenobia Lyon MD [address] [place] [address] [place] [address] PCP - General Family Medicine 05/22/23 documented as of this encounter
--- OUTSIDE RECORDS SUMMARY | 2023-11-09 04:50 | External Medical Summary | Summary of Care ---
Author Name Unknown Organization [facility] Address [address] [place] [address] Phone [phone] Care Team Providers Care Stand Grinder Name Role Phone Zenobia Lyon MD Primary Care Provide r Encounter Details Date Type Department Care Team (Late st Contact Info) Description 11/06/2023 Result Scan Unspecified Department Hao Sanford MD [...] 75 MG Oral Tablet (pLAVix)Indications: Atherosclerosis of [place] coronary artery of [place] heart without angina pectoris Take 1 Tablet [...] 90 Tablet 0 09/18/2023 Active Saline Nasal [place] 0.65 % Nasal Solution (Saline Mist [place]) Use 2 sprays into Nostril every 1 [...] Plan Other/Additional Comments: will reach out to [facility] Exacerbation Plan BMP Chest X-Ray Additional [...] CORONARY ATHEROSCLEROSIS OF UNSPECIFIED TYPE OF VESSEL, [place] OR GRAFT Last Assessment & Plan: Stable. [...] without hematuria 05/30/2022 01/24/2023 Overview: [facility] to [facility] 04/20-04/29 urosepsis multi drug resistant [...] 10/26/2023 Overview: [employer] Product Surveillance Registry PI: Klyah Lilly IV, MD Diagnosis changed due to [...] MCG/0.3 mL, 12 YRS AND ABOVE, IM ([employer]) 07/19/2023 Covid-19, Mrna, Lnp-s, Pf, B ivalent, [...] Description 11/13/2023 10:00 AM EST Home Visit [facility] at [facility] [address] [place] [address] Lila Brownlee RN [address] [place] [address] 12/13/2023 9:10 AM EDT Laboratory Lab [place] [facility] [address] [place], [place] [id number] [facility] Mobile Home Draw [address] [place] [address] 01/04/2024 10:20 AM EDT Office Visit Otolaryngology [facility] [address] [place] [address] Kasi Tejeda PA-C [address] [place] [address] 01/26/2024 11:20 AM EDT Office Visit Family Medicine [address] [place] [phone] Zenobia Lyon MD [address] [place] [address] [place] [address] 03/07/2024 1:00 PM EDT Office Visit Cardiology [address] [place] [address] Chris Choudhury PADereckC [address] [place] [address] 03/08/2024 2:45 PM EDT Office Visit Hematology/Oncology [facility] 200 [facility] [place] [address] Pietro Sykes MD 200 [facility] [address] Scheduled Procedures Name Priority Associated Diagnoses Date/Ti me COLONOSCOPY FLEXIBLE PROXIMA L DIAGNOSTIC Recall History of colonic polyps Health Maintenance Due Date Last Done Comments Alpha-1 Antitrypsin 1952 Hepatitis B (1 of 3 - Risk 3-dose series) 1994 DTaP,Tdap,and Td Vaccines (2 - Td or Tdap) 01/11/2023 01/11/2013, 04/01/2003, 04/01/2003 HbA1c 07/27/2023 01/25/2023, 1203/2022, 01/14/2022, Additional history exists Depression Screening 01/25/2024 01/24/2023 DIG LEVEL FOR MEDICATION MONITORING YEARLY 01/26/2024 01/25/2023, 04/17/2021, 03/09/2020, Additional history exists Albumin/Creatinine Ratio 01/27/2024 023, 01/14/2022, 08/14/2017, Additional history exists Diabetic Eye Exam 07/19/2024 07/19/2023 (Do ne elsewhere), 10/28/2021, 10/28/2021, Additional history exists Diabetic Foot Exam 07/19/2024 07/19/2023, 0 01/14/2022, 12/24/2020, Additional history exists CKD PHOS USE SMARTSET 04098 07/25/202407/03, 09/07/2022, 09/05/2022, Additional history exists CKD HGB USE SMARTSET 80424 11/02/202411/02, 11/02/2023, 10/25/2023, Additional history exists O2 [...] encounter Medical Devices Implanted Type Area Director Chemistry Device Identifier Shelf Expiration Date Model / Serial / Lot Screw T2 Alpha Lock 5x47.5mm - [id number] Implanted:Qty: 1 on 09/06/2022 by Sean Silva MD at [facility] Left: Leg Upper RICHELLE : TRAUMA 06/01/2032 [id number] / / [id number] documented as of this encounter Procedures Procedure Name Priority Date/Time Associated Diagnosis Comments CARDIOLOGY SCANNED RESULT 11/06/2023 documented in this encounter Results * CARDIOLOGY SCANNED RESULT (11/06/2023) 11/06/2023 Hao Sanford MD OTHER documented in this encounter Advance Directives Documents on File Type Date Recorded Patient Fiber Artist Expl anation POLST 10/17/2022 [place] OR DERS [...] Agen t (per Health Care Power of Litigation Partner document) Reji Palaciosmel Dotts Adult Child First Alterna te Health Care Agent (per Health Care Power of Litigation Partner document) Bowen Tello Adult Child First Alternate Health Care Agent (per Health Care Power of Litigation Partner document) Care Teams Stand Grinder Relationship Specialty Start Date End Date Zenobia Loyn MD [address] [place] [address] [place] [address] PCP - General Family Medicine 05/22/23 documented as of this encounter
--- OUTSIDE RECORDS SUMMARY | 2023-11-09 04:50 | External Medical Summary | Summary of Care ---
Author Name Unknown Organization [facility] Address [address] [place] [facility] [place] [address] Phone [phone] Care Team Providers Care Research Chemical Engineer Name Role Phone Zenobia Lyon MD Primary Care Provide r Reason for Visit * Reason Onset Date Comments [facility]: Maintenance 11/03/2023 Encounter Details Date Type Department Care Team (Late st Contact Info) Description 11/03/2023 Telephone [facility], [facility] 132 [facility] [place] [address] [facility], Nurse [address] [place] [address] [facility]: Maintenance Allergies Active Allergy [...] 75 MG Oral Tablet (pLAVix)Indications: Atherosclerosis of [place] coronary artery of [place] heart without angina pectoris Take 1 Tablet [...] 90 Tablet 0 09/18/2023 Active Saline Nasal [place] 0.65 % Nasal Solution (Saline Mist [place]) Use 2 sprays into Nostril every 1 [...] Plan Other/Additional Comments: will reach out to [facility] Exacerbation Plan BMP Chest X-Ray Additional Comments: [...] CORONARY ATHEROSCLEROSIS OF UNSPECIFIED TYPE OF VESSEL, [place] OR GRAFT Last Assessment & Plan: Stable. [...] MCG/0.3 mL, 12 YRS AND ABOVE, IM ([employer]-Comirnat) 07/19/2023 Covid-19, Mrna, Lnp-s, Pf, B [...] Telephone Encounter - Pietro Sykes MD - 11/03/2023 4:37 PM EST For the next 4 weeks, he will be in the office and so he should have CBCD checkup at the same time. If he needs blood, we can arrange from the office. He should have blood workup in the morning followed by IV iron. * Telephone Encounter - Carly Cano RN - 11/03/2023 3:15 PM EST Phone call [...] of his weekly mobile appointments. Carly Cano guard managerTiedown Operator [facility] documented in this encounter Plan of Treatment Upcoming Encounters Date Type Department Care Team (Late st Contact Info) Description 11/08/2023 9:20 AM EST Laboratory Lab Mobile Phlebotomy [facility] [address] [place] [address] [facility] Mobile Home Draw [address] [place] [address] 11/13/2023 10:00 AM EST [facility] Visit [facility] [place], [facility] [address] [place] [address] Lila Brownlee, SANKET [address] [place] [address] 11/15/2023 9:10 AM EST Laboratory Lab Mobile Phlebotomy C [address] [place] [address] [facility], [facility] Mobile Home Draw [address] [place] [address] 11/15/2023 9:20 AM EST Laboratory Lab Mobile Phlebotomy [facility] [address] [place] [address] Gm, Gm Mobile Home Draw [address] [place] [address] 11/29/2023 9:10 AM EST Laboratory Lab Mobile Phlebotomy [facility] [address] [place] [address] Gm, Gml Mobile Home Draw [address] [place] [address] 12/13/2023 9:10 AM EDT Laboratory Lab Mobile Phlebotomy [facility] [address] [place] [address] [facility] Mobile Home Draw [address] [place] [address] 01/04/2024 10:20 AM EDT Office [facility] [place] [address] Kasi Tejeda PA-C [address] [place] [address] 01/26/2024 11:20 AM EDT Office Visit Family Medicine [address] [place] [phone] Zenobia Lyon MD [address] [place] [address] [place] [address] 03/07/2024 1:00 PM EDT Office Visit Cardiology [address] [place] [address] Chris Choudhury PA-C [address] [place] [address] 03/08/2024 2:45 PM EDT Office Visit Hematology/Oncology [facility] 200 [facility] [place] [address] Pietro Sykes MD 200 [facility] [place] [address] Scheduled Procedures Name Priority Associated Diagnoses Date/Ti [...] Additional history exists CKD PHOS USE SMARTSET 28920 07/25/202407/03, 09/07/2022, 09/05/2022, Additional history exists CKD HGB USE SMARTSET 51929 11/02/202411/02, 11/02/2023, 10/25/2023, Additional history exists O2 [...] this encounter Medical Devices Implanted Type Area Validation Engineer Device Identifier Shelf Expiration Date Model / Serial / Lot Screw T2 Alpha Lock 5x47.5mm - [id number] Implanted:Qty: 1 on 09/06/2022 by Sean Silva MD at [facility] Left: Leg Upper RICHELLE : TRAUMA 06/01/2032 [id number] / / [id number] documented as of this encounter Advance Directives Documents on File Type Date Recorded 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
--- OUTSIDE RECORDS SUMMARY | 2023-11-09 04:50 | External Medical Summary | Summary of Care ---
Author Name Unknown Organization [facility] Address [address] [place] [facility] [place] [address] Phone [phone] Care Team Providers Care Orthopedic Physical Therapist Name Role Phone Zenobia Lyon MD Primary Care Provide r Reason for Visit * Reason Onset Date Comments [facility]: Maintenance 11/03/2023 Encounter Details Date Type Department Care Team (Late st Contact Info) Description 11/03/2023 Telephone [facility], [facility] [address] [place] [address] [facility], Nurse [address] [place] [address] [facility]: Maintenance Allergies Active Allergy [...] 75 MG Oral Tablet (pLAVix)Indications: Atherosclerosis of [place] coronary artery of [place] heart without angina pectoris Take 1 Tablet [...] 90 Tablet 0 09/18/2023 Active Saline Nasal [place] 0.65 % Nasal Solution (Saline Mist [place]) Use 2 sprays into Nostril every 1 [...] Plan Other/Additional Comments: will reach out to [facility] Exacerbation Plan BMP Chest X-Ray Additional Comments: [...] CORONARY ATHEROSCLEROSIS OF UNSPECIFIED TYPE OF VESSEL, [place] OR GRAFT Last Assessment & Plan: Stable. [...] MCG/0.3 mL, 12 YRS AND ABOVE, IM ([employer]-Comirnat) 07/19/2023 Covid-19, Mrna, Lnp-s, Pf, B ivalent, [...] Telephone Encounter - Carly Cano RN - 11/06/2023 8:12 AM EST Called mobile phlebotomy spoke with Jeniffer,cancelled mobile phlebotomy blood work appointments for the next 4 weeks. Carly Cano RN Manager Simulation [facility] * Telephone Encounter - Pietro Sykes MD [...] of his weekly mobile appointments. Carly Cano RN Manager Simulation [facility] documented in this encounter Plan of Treatment Upcoming Encounters Date Type Department Care Team (Late st Contact Info) Description 11/08/2023 9:20 AM EST Laboratory Lab Mobile Phlebotomy [facility] [address] [place] [address] Gmc, Gml Mobile Home Draw [address] [place] [address] 11/13/2023 10:00 AM EST Home Visit [facility] [place], [facility] [address] [place] [address] Lila Brownlee RN 132 [place] [address] 11/15/2023 9:10 AM EST Laboratory Lab Mobile Phlebotomy [facility] [address] [place] [address] Gm, Gml Mobile Home Draw [address] [place] [address] 11/15/2023 9:20 AM EST Laboratory Lab Mobile Phlebotomy [facility] [address] [place] [address] Gmc, G[facility] Mobile Home Draw [address] [place] [address] 11/29/2023 9:10 AM EST Laboratory Lab Mobile Phlebotomy [facility] [address] [place] [address] Gmc, Gml Mobile Home Draw [address] [place] [address] 12/13/2023 9:10 AM EDT Laboratory Lab Mobile Phlebotomy [facility] [address] [place] [address] G[facility], [facility] Mobile Home Draw [address] [place] [address] 01/04/2024 10:20 AM EDT Office Visit Otolaryngology [facility] [address] [address] Kasi Tejeda PA-C [address] [place] [address] 01/26/2024 11:20 AM EDT Office Visit Family Medicine [address] [place] [phone] Zenobia Lyon MD [address] [place] [address] [place] [address] 03/07/2024 1:00 PM EDT Office Visit Cardiology [address] [place] [address] Chris Choudhury PA-C [address] [place] [address] 03/08/2024 2:45 PM EDT Office Visit Hematology/Oncology [facility] 200 [facility] [place] [address] Pietro Sykes MD [address] [place] [address] Scheduled Procedures Name Priority Associated Diagnoses Date/Ti [...] Additional history exists CKD PHOS USE SMARTSET 58881 07/25/202407/03, 09/07/2022, 09/05/2022, Additional history exists CKD HGB USE SMARTSET 88402 11/02/202411/02, 11/02/2023, 10/25/2023, Additional history exists O2 [...] this encounter Medical Devices Implanted Type Area Bowling Ball Patcher Device Identifier Shelf Expiration Date Model / Serial / Lot Screw T2 Alpha Lock 5x47.5mm - [id number] Implanted:Qty: 1 on 09/06/2022 by Sean Silva MD at [facility] Left: Leg Upper RICHELLE : TRAUMA 06/01/2032 [id number] / / [id number] documented as of this encounter Advance Directives Documents on File Type Date Recorded Patient Atlassian Administrator Expl anation POLST 10/17/2022 [place] [...] Agen t (per Health Care Power of Laser Beam Trim Operator document) Reji Tello Dotts Adult Child First Alterna te Health Care Agent (per Health Care Power of Laser Beam Trim Operator document) Bowen Tello Adult Child First Alternate Health Care Agent (per Health Care Power of Laser Beam Trim Operator document) Care Teams Orthopedic Physical Therapist Relationship Specialty Start Date End Date Zenobia Lyon MD [address] [place] [address] [place] [address] PCP - General Family Medicine 05/22/23 documented as of this encounter
--- OUTSIDE RECORDS SUMMARY | 2023-11-09 04:51 | External Medical Summary | Summary of Care ---
Author Name Unknown Organization [facility] Address [address] [place] [address] Phone [phone] Care Team Providers Care Residential Field Manager Name Role Phone Zenobia Lyon MD Primary Care Provide r Encounter Details Date Type Department Care Team (Late st Contact Info) Description 11/03/2023 Orders Only Hematology/Oncology Treatment, [place] [address] [place] [address] Pietro Sykes MD [address] [place] [address] Iron deficiency anemia, unspecified iron deficiency anemia type* Allergies Active Allergy Reactions Criticality Noted Date [...] MG Oral Tablet (pLAVix)Indications: Atherosclerosis of [place] coronary artery of [place] heart without angina pectoris Take 1 Tablet [...] 90 Tablet 0 09/18/2023 Active Saline Nasal [place] 0.65 % Nasal Solution (Saline Mist [place]) Use 2 sprays into Nostril every 1 [...] Plan Other/Additional Comments: will reach out to [facility] Exacerbation Plan BMP Chest X-Ray Additional [...] CORONARY ATHEROSCLEROSIS OF UNSPECIFIED TYPE OF VESSEL, [place] Last Assessment & Plan: Stable. [...] MCG/0.3 mL, 12 YRS AND ABOVE, IM ([employer]Net-Comirnat) 07/19/2023 Covid-19, Mrna, Lnp-s, Pf, B ivalent, [...] encounter Miscellaneous Notes * Addendum Note - Jeniffer Lozoya RN - 11/03/2023 11:01 AM ESTAddended by: JENIFFER LOZOYA on: 11/03/2023 11:01 AM Modules accepted: Orders documented in this encounter Plan of Treatment Upcoming Encounters Date Type Department Care Team (Late st Contact Info) Description 11/08/2023 9:20 AM EST Laboratory Lab [place] [facility] [place] [address] [place] [address] [facility] [place] [facility] Mobile [place] Draw [address] [place] [address] 11/13/2023 10:00 AM EST Home Visit [facility] [address] [place] [address] Lila Brownlee RN [address] [place] [address] 11/15/2023 9:10 AM EST Laboratory Lab [place] [facility] [place] [address] [place] [address] [facility] [place] [facility] Mobile Home Draw [address] [place] [address] 11/15/2023 9:20 AM EST Laboratory Lab [facility] [place] [place] [address] [place] [address] [facility] [place] [facility] Mobile Home Draw [address] [place] [address] 11/29/2023 9:10 AM EST Laboratory Lab [facility] [place] [place] [address] [place] [address] [facility] [place] [facility] Mobile Home Draw [address] [place] [address] 12/13/2023 9:10 AM EDT Laboratory Lab [facility] [place] [place] [address] [place] [address] [facility] [place] [facility] Mobile Home Draw [address] [place] [address] 01/04/2024 10:20 AM EDT Office Visit Otolaryngology [facility] [address] [place] [address] Kasi Tejeda PA-C [address] [place] [address] 01/26/2024 11:20 AM EDT Office Visit Family Medicine [address] [place] [phone] Zenobia Lyon MD [address] [place] [address] [place] [address] 03/07/2024 1:00 PM EDT Office Visit Cardiology [address] [place] [address] Chris Choudhury PA-C [address] [place] [address] 03/08/2024 2:45 PM EDT Office Visit Hematology/Oncology Marcia Sylvester [place] [address] [facility] [place] [address] Pietro Sykes MD [address] [place] [address] Scheduled Orders Name Type Priority Associated Diagnoses Orde r Schedule CBC WITH WBC DIFFERENTIAL Lab STAT Iron deficiency anemia, unspecified iron deficiency anemia type Every Week for 52 Occurrences starting 11/03/2023 until 11/03/2024 Scheduled Procedures Name Priority Associated Diagnoses Date/Ti [...] Additional history exists CKD PHOS USE SMARTSET 47572 07/25/202407/03, 09/07/2022, 09/05/2022, Additional history exists CKD HGB USE SMARTSET 26159 11/02/202411/02, 11/02/2023, 10/25/2023, Additional history exists O2 [...] this encounter Medical Devices Implanted Type Area Database Dba Device Identifier Shelf Expiration Date Model / Serial / Lot Screw T2 Alpha Lock 5x47.5mm - [id number] Implanted:Qty: 1 on 09/06/2022 by Sean Silva MD at [facility] Left: Leg Upper RICHELLE : TRAUMA 06/01/2032 2360-5047S / / [id number] documented as of this encounter Visit Diagnoses Diagnosis Iron deficiency anemia, unspecified iron deficiency anemia type- Primary documented in this encounter Advance Directives Documents on File Type Date Recorded Patient Eradicator Expl anation POLST 10/17/2022 [place] OR DERS [...] Agen t (per Health Care Power of Anvil Seating Press Operator document) Rejijohana Tello Neil Adult Child First Alterna te Health Care Agent (per Health Care Power of Anvil Seating Press Operator document) Bowen Tello Adult Child First Alternate Health Care Agent (per Health Care Power of Anvil Seating Press Operator document) Care Teams Residential Field Manager Relationship Specialty Start Date End Date Zenobia Lyon MD [address] [place] [address] [place] [address] PCP - General Family Medicine 05/22/23 documented as of this encounter
--- OUTSIDE RECORDS SUMMARY | 2023-11-09 04:51 | External Medical Summary | Summary of Care ---
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 Name Role Phone Zenobia Lyon MD Primary Care Provide r Encounter Details Date Type Department Care Team (Late st Contact Info) Description 11/03/2023 Orders Only Hematology/Oncology Treatment, [place] [address] [place] [address] Pietro Sykes MD [address] [place] [address] Iron deficiency anemia, unspecified iron deficiency anemia [...] 75 MG Oral Tablet (pLAVix)Indications: Atherosclerosis of [place] coronary artery of [place] heart without angina pectoris Take [...] 90 Tablet 0 09/18/2023 Active Saline Nasal [place] 0.65 % Nasal Solution (Saline Mist [place]) Use 2 sprays into Nostril every 1 [...] Plan Other/Additional Comments: will reach out to [facility] Exacerbation Plan BMP Chest X-Ray [...] CORONARY ATHEROSCLEROSIS OF UNSPECIFIED TYPE OF VESSEL, [place] OR GRAFT Last Assessment & Plan: Stable. [...] MCG/0.3 mL, 12 YRS AND ABOVE, IM ([employer]-Comirnat) 07/19/2023 Covid-19, Mrna, Lnp-s, Pf, B ivalent, [...] 9:20 AM EST Laboratory Lab Mobile Phlebot[place] [facility] [place] [address] [place] [address] [facility] [place] [facility] Mobile Home Draw [address] [place] [address] 11/13/2023 10:00 AM EST Home Visit [facility] [address] [place] [address] Lila Brownlee RN [address] [place] [address] 11/15/2023 9:10 AM EST Laboratory Lab Mobile Phlebotomy [facility] [address] [place] [address] [facility] [place] [facility] Mobile Home Draw [address] [place] [address] 11/15/2023 9:20 AM EST Laboratory Lab Mobile Phlebotomy [facility] [place] [address] [place] [address] [facility] [place] [facility] Mobile Home Draw [address] [place] [address] 11/29/2023 9:10 AM EST Laboratory Lab Mobile Phlebotomy [facility] [address] [place] [address] [facility] [place] [facility] Mobile Home Draw [address] [place] [address] 12/13/2023 9:10 AM EDT Laboratory Lab Mobile Phlebotomy [facility] [address] [place] [address] [facility] [place] [facility] Mobile Home Draw [address] [place] [address] 01/04/2024 10:20 AM EDT Office Visit Otolaryngology [facility] [address] [place] [address] Kasi Tejeda PA-C [address] [place] [address] 01/26/2024 11:20 AM EDT Office Visit Family Medicine [address] [place] [phone] Zenobia Lyon MD [address] [place] [address] [place] [address] 03/07/2024 1:00 PM EDT Office Visit Cardiology [address] [place] [address] Chris Choudhury PA-C [address] [place] [address] 03/08/2024 2:45 PM EDT Office Visit Hematology/Oncology Marcia Sylvester [place] [address] [facility] [place] [address] Pietro Sykes MD [address] [place] [address] Scheduled Orders Name Type Priority Associated Diagnoses [...] Additional history exists CKD PHOS USE SMARTSET 48924 07/25/202407/03, 09/07/2022, 09/05/2022, Additional history exists CKD HGB USE SMARTSET 92580 11/02/202411/02, 11/02/2023, 10/25/2023, Additional history exists O2 [...] this encounter Medical Devices Implanted Type Area Shearer Operator Device Identifier Shelf Expiration Date Model / Serial / Lot Screw T2 Alpha Lock 5x47.5mm - [id number] Implanted:Qty: 1 on 09/06/2022 by Sean Silva MD at [facility] Left: Leg Upper RICHELLE : TRAUMA 06/01/2032 [id number] / / [id number] documented as of this encounter Visit Diagnoses Diagnosis Iron deficiency anemia, unspecified iron deficiency anemia type- Primary documented in this encounter Advance Directives Documents on File Type Date Recorded 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
--- OUTSIDE RECORDS SUMMARY | 2023-11-09 04:51 | External Medical Summary | Summary of Care ---
Author Name Unknown Organization [facility] Address [address] [place] [address] Phone [phone] Care Team Providers Care Space Controller Name Role Phone Zenobia Lyon MD Primary Care Provide r Reason for Visit * Reason Comments Follow Up Encounter Details Date Type Department Care Team (Late st Contact Info) Description 11/03/2023 10:45 AM EST Office Visit Hematology/Oncology [facility] [place] [address] [facility] [address] Pietro Sykes MD [address] [facility] [address] Iron deficiency anemia, unspecified iron deficiency anemia type*; Multiple myeloma not having achieved remission (HCC) Allergies Active Allergy Reactions Criticality Noted [...] 75 MG Oral Tablet (pLAVix)Indications: Atherosclerosis of ramona coronary artery of ramona heart without angina pectoris Take 1 Tablet [...] 90 Tablet 0 09/18/2023 Active Saline Nasal Fisk 0.65 % Nasal Solution (Saline Mist Fisk) Use 2 sprays into Nostril every 1 [...] Other/Additional Comments: will reach out to [facility] Exacerbation Plan BMP Chest X-Ray [...] CORONARY ATHEROSCLEROSIS OF UNSPECIFIED TYPE OF VESSEL, MANZANITA OR GRAFT Last Assessment & Plan: Stable. [...] MCG/0.3 mL, 12 YRS AND ABOVE, IM (Pharminex-Comirnat) 07/19/2023 Covid-19, Mrna, Lnp-s, Pf, B ivalent, [...] Sign Reading Time Taken Comments Blood Pressure 109/65 11/03/2023 9:51 AM EST Pulse 98 11/03/2023 9:51 AM EST Temperature - - Respiratory Rate 16 11/03/2023 9:51 AM EST Oxygen Saturation 91% 11/03/2023 9:51 AM EST Inhaled Oxygen Concentration - - Weight 87.7 kg (193 lb 6.4 oz) 11/03/2023 9:51 A M EST Height 180.3 cm (5' 10.98") 11/03/2023 9:[address] Body Mass Index 26.99 11/03/2023 9:51 AM EST documented in this encounter Functional [...] as of this encounter Progress Notes * Pietro Sykes MD - 11/03/2023 10:45 AM EST MARTA FRANKELMEL . MR # [id number] :1935 87-year-old male, Date of consultation with me:04/15/2022 DIAGNOSIS: -iron deficiency -chronic renal insufficiency also contributing to the anemia -he had upper GI bleed earlier in August 2020, he was admitted at [facility], received blood transfusion support at that time. Repeat endoscopy done in October 2021 showed improvement of the ulcers. Bone marrow examination (09/20/2022: - Plasma cell myeloma, plasma cells 70%. - Plasma cell myeloma FISH: Positive for gain of chromosome 1q, hyperdiploidy, monosomy 16, and IGHrearrangement involving an unidentified gene - Lytic lesion the subtrochanteric left femur (09/05/2022), S/P internal fixation when he was admitted at [facility]. He completed radiation treatment to that area. Improvement of the local pain noted. overall IgA kappa multiple myeloma. CURRENT TREATMENT: - he has underlying dementia, he is not much ambulating, came to clinic wheelchair but ambulates slowly with the help of the cane at home. Family member decided not to proceed with any kind of systemic chemotherapy for the multiple myeloma diagnosis. Currently he gets periodic blood transfusion support for the symptomatic anemia. Would like to start IV iron in the form Venofer 300 mg every weekly x4 and then every 2 weekly indefinitely. DIAGNOSTIC WORKUP: He had upper GI bleed, he was admitted at [facility] in August 2021. He had gastric and duodenal ulceration on endoscopic evaluation, received blood transfusion at that time. Subsequent endoscopy as follows: Esophagus, GE junction nodule, biopsy: (10/29/2021) - Gastric cardia-type mucosa with no significant histopathologic abnormality - Negative for Mitchell (intestinal metaplasia) - Negative for dysplasia and malignancy COLON, ASCENDING POLYP, POLYPECTOMY: (03/26/2020). - TUBULAR ADENOMA - NEGATIVE FOR HIGH GRADE DYSPLASIA He has chronic renal insufficiency. Component Ferritin Latest Ref Rng & Units 30 - 400 ng/mL 05/14/2018 101.0 06/18/2021 23 (L) 09/08/2021 78 12/21/2021 54 03/03/2022 26 (L) He is on oral iron replacement therapy twice a day since August 2022 but Ferritin level has remained on the lower side around 26 as of 03/03/2022. Component HGB Latest Ref Rng & Units 14.0 - 16.8 g/dL 04/17/2021 10.6 (L) 06/18/2021 10.6 (L) 08/06/2021 11.2 (L) 09/08/2021 11.1 (L) 10/15/2021 10.6 (L) 11/08/2021 10.2 (L) 12/14/2021 9.9 (L) 01/14/2022 8.8 (L) 03/03/2022 9.7 (L) -BUN/Creat: 24/1.5, Calcium 9.5 (03/03/2022). IgA kappa multiple myeloma: -he was admitted at [facility] earlier in September 2022, I reviewed those records, complained of left hip pain, x-ray of the left femur done on 09/05/2022 showed lytic lesion involving the subtrochanteric femur on the left side. He had prophylactic shukri placement, biopsy from that A. Bone, femur, left, biopsy: - Involved by patient's recently diagnosed Plasma cell myeloma B. Bone fragments, femur, left, excision biopsy: - Involved by patient's recently diagnosed Plasma cell myeloma CT chest, abdomen pelvis (09/06/2022: IMPRESSION: 1. A few cortically-based lytic osseous lesions, most pronounced in the visualized left femur and right lateral clavicle with soft tissue components. A few other lucent osseous foci may represent additional pathologic lesions He had a bone marrow examination as outlined in diagnosis section Free kappa light chain --> 482, free lambda light chain --> 12.4, [place]/Lambda ratio 38 Urinalysis showed monoclonal free kappa light chain. -[id number]-[id number] --> 6.7 SPEP --> unable to quantitate paraprotein level. IgG 218, IgA 3977, IgM 19. INTERVAL HISTORY: He came to clinic in the wheelchair, ambulates with the help of the cane at home, recently he was admitted at [facility], currently he is receiving blood transfusion support, he gets CBCD checkup every weekly, he is also on oral iron every other day. Overall he is okay, no pain, has underlying dementia, good appetite, no nausea or vomiting, black stool so not sure about the GI bleed, current weight around 193 lb. No leg edema, no fever. Past Medical History: Diagnosis Date Acute posthemorrhagic anemia 06/26/2018 Asthma with acute exacerbation 11/18/2017 [facility] Asthma, moderate persistent Benign hypertension with CKD (chronic kidney disease), stage II Cardiac pacemaker in situ 02/17/10 CKD (chronic kidney disease), stage II 02/01/16 CKD (chronic kidney disease), stage III (HCC) 01/30/15 GFR 57.9 Closed fracture of dorsal (thoracic) vertebra without mention of spinal cord injury T12 Compression fx, thoracic spine (HCC) T12 Coronary atherosclerosis of ramona coronary artery DM type 2, goal A1c below 7 02/10/12 hgba1c 6.9 Elevated prostate specific antigen (PSA) HTN, goal below 140/90 Hyperlipidemia LDL goal [...] left (HCC) 08/27/[address] Impotence of organic origin Moderate persistent asthma without complication Other dermatitis due to solar radiation Other seborrheic keratosis Pathologic fracture of vertebrae L1 SEBORRHEIC KERATOSIS Lt. cheek & Lt. leg ; Rt. 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) Upper GI bleed 08/06/2021 Past Surgical History: Procedure Laterality Date BONE BIOPSY, TROCAR/NEEDLE, DEEP Left 09/06/2022 BIOPSY BONE TROCAR OR NEEDLE DEEP performed by Sean Silva MD at OR [facility] BONE MARROW ASPIRATION Left 09/06/2022 BONE MARROW ASPIRATION performed by Sean Silva MD at OR [facility] CABG, ARTERIAL, THREE 07/31/2000 Triple B.P open heart [facility] COLONOSCOPY 05/03/2005 Dr Wilcox negative COLONOSCOPY, DIAGNOSTIC (RECTUM) N/A 03/26/2020 poor prep/diverticulosis sigmoid colon/internal hemorrhoids/biopsies show adenomatous polyps/Colonoscopy CT L SPINE WO CONTRAST 08/27/2015 multilevel degenerative disease, Compression Fx T 12, 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 CTA CHEST NON-CORONARY W CONTRAST 11/19/2017 no PE, moderate cardiomegaly with coronary calcifications, 6 mm LLL nodule, repeat 6 mos ECHO, COMPLETE (2D), TRANS-THORACIC 11/19/2017 mild Conv LVH, EF 55-60%, mild TR and MR EGD, FLEXIBLE, DIAGNOSTIC N/A 07/27/2021 [facility], EGD, Med HH, gastritis, non-obstructing gastric ulcer, duodenal Ulcer /biopsies taken from stomach did show mild gastritis without any worrisome features / 3 month follow up EGD, FLEXIBLE, DIAGNOSTIC N/A 10/29/2021 [facility], EGD, Normal scope, Mucosal nodule found in esophagus /biopsies from the end of the esophagus showed inflammatory changes without any worrisome features / EGD, FLEXIBLE, DIAGNOSTIC 10/29/2021 normal bx / [facility] HOLTER COMPLETE (COMM PRAC) 08/06/2009 NSR with 1st degree heart block, rare ectopy, no pauses >2.5 sec INSERT PACING ELECTRODE, EXISTING PACER Left 03/16/2015 BIVENTRICULAR UPGRADE TO EXISITING DEVICE performed by Gallito Mojica MD at CARDIAC LABS [facility] MISCELLANEOUS ORDER ([facility] ONLY) 02/17/2010 Dual chamber pacer insertion Medtronic 02/17/10 Dr. Gomez, [facility] MOBILE DXA 01/22/2016 Lumbar T +0.6, Femur T -0.6 repeat 4 years. Fosamax may be stopped OTHER 07/07/2009 Fracture vertebrae OTHER 1989? Nose/polyps [place] x three years in a row and also deviated septum OTHER 08/2009 Cataract bilateral on separate occasions (three weeks in between) REINFORCEMENT OF THIGH Left 09/06/2022 PROPHYLACTIC TREATMENT FEMUR performed by Sean Silva MD at OR [facility] Current Outpatient Medications Medication Sig Dispense Refill OXYGEN 2L/min via nasal cannula 24 hours continous, please provide portables as well 1 Each 0 DIURETIC TITRATION PLAN weight gain of 3 lbs overnight increase Lasix dose to 40 mg twice daily x 3days. If no improvement contact provider. 1 Each 0 Furosemide 40 MG Oral Tablet (Lasix) One tablet by mouth daily on Monday, Monday, and Monday. Two tablet by mouth on Monday, Monday and Monday 135 Tablet 3 Digoxin 125 MCG Oral Tablet (Lanoxin) TAKE ONE TABLET 3 days per week 36 Tablet 3 Clopidogrel Bisulfate 75 MG Oral Tablet (pLAVix) Take by mouth 1 Tablet in the morning. 90 Tablet 3 Dutasteride 0.5 MG Oral Capsule (Avodart) Take by mouth 0.5 mg in the morning. 90 Capsule 1 Latanoprost 0.005 % Ophthalmic Solution (Xalatan) Instill into both eyes 1 Drop in the morning. 2.5mL 0 Ventolin HFA 108 (90 Base) MCG/ACT Inhalation Aerosol Solution Inhale by mouth 2 Puffs 4 times a day . 18 g 0 Albuterol Sulfate 1.25 MG/3ML Inhalation Nebulization Solution Inhale via nebulizer 1.25 mg every 4hours as needed for Wheezing (every 4 hours as needed). (Patient not taking: Reported on 09/05/2022)3 mL 0 Magnesium Oxide 400 MG Oral Tablet [...] the morning and 1 Tablet before bedtime. (Patient not taking: Reported on 10/17/2022) Metoprolol Succinate ER 50 MG Oral Tablet Extended Release 24 Hour (toPROL XL) TAKE ONE TABLET BY MOUTH EVERY DAY 90 Tablet 3 Potassium Chloride Emma ER 20 MEQ Oral Tablet Extended Release TAKE 1 TABLET BY MOUTH EVERY [id number] Tablet 1 amLODIPine Besylate 2.5 MG Oral Tablet (Norvasc) Take by mouth 1 Tablet in the morning. 30 Tablet 5 Lidocaine 5 % External Patch (Lidoderm) Place 1 Patch topically on the skin daily. (Patient not taking: Reported on 10/06/2022) 30 Patch 3 Simvastatin 20 MG Oral Tablet (Zocor) TAKE ONE TABLET BY MOUTH EVERY DAY 90 Tablet 3 Pantoprazole Sodium 40 MG Oral Tablet Delayed Release (Protonix) TAKE ONE TABLET BY MOUTH EVERY DAY90 Tablet 1 Ferrous Sulfate 325 (65 Fe) MG Oral Tablet (Feosol) Take 1 Tablet by mouth every other day. Bisacodyl 10 MG Rectal Suppository (Dulcolax) Administer 1 Suppository into the rectum daily as needed for Constipation. (Patient not taking: Reported on 10/17/2022) 12 Suppository 0 Melatonin 3 MG Oral Tablet Take 1 Tablet by mouth at bedtime. Sennosides 8.6 MG Oral Tablet (Senokot) Take 2 Tablets by mouth in the morning. (Patient not taking: Reported on 10/17/2022) traMADol HCl 50 MG Oral Tablet (Ultram) Take 1 Tablet (50 mg) by mouth every 6 hours as needed for Pain, Moderate. 25 Tablet 0 Sertraline HCl 25 MG Oral Tablet (Zoloft) Take 1 Tablet by mouth every night at bedtime. 30 Tablet 5 Acetaminophen 500 MG Oral Tablet (Tylenol Extra Strength) Take 2 Tablets by mouth in the morning and 2 Tablets at noon and 2 Tablets in the evening. 100 Tablet 0 No current facility-administered medications for this visit. 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 Occupation: Tobacco Use Smoking status: Former Packs/day: 1.00 Years: 20.00 Pack years: 20.00 Types: Cigarettes Quit date: 10/02/1969 Years since quittin.0 Smokeless tobacco: Never Tobacco comments: 1969 Vaping Use Vaping Use: Never used Substance and Sexual Activity Alcohol use: Not Currently Comment: rare Drug use: No Sexual activity: Not on file Other Topics Concern Not on file Social History Narrative Not on file Social Determinants of Health Financial Resource Strain: Not on file Food Insecurity: Not on file Transportation Needs: Not on file Physical Activity: Not on file Stress: Not on file Social Connections: Not on file Intimate Partner Violence: Not on file Housing Stability: Not on file On Exam: Examination done in the sitting position in the wheelchair BP 109/65 (BP Site: Left Arm, BP Position: Sitting, BP Cuff Size: Large) | Pulse 98 | Resp 16 | Ht 1.803 m (5' 10.98") | Wt 87.7 kg (193 lb 6.4 oz) | SpO2 91% | BMI 26.99 kg/m | BSA 2.1 m Constitutional: Patient is alert, cooperative and oriented x 3. Well built man, Patient is in no acute distress. HEENT:No icterus, no pallor, Throat and pharynx normal. Sinuses are non-tender. Neck: Supple and without lymphadenopathy or masses. No JVD. No Palpable supraclavicular lymph nodes. Lungs: Clear to auscultation. Bilateral symmetric air entry. No wheezing or rhonchi. Cardiovascular: Normal heart sounds, no murmurs.Regular rate and rhythm. Abdomen: soft, nontender, no hepatomegaly, no splenomegaly. Bowel sounds are normal. Neurological: No gross focal neurological deficit; Extremities: No finger clubbing, No cyanosis. No leg edema. Skin:: No skin rash. SPINE: No spinal or paraspinal tenderness. LABS: Blood workup done on 10/17/2022: - WBC 5100, H&H of 8.3/26.7, Platelet count of 229,000 - Serum iron: 51, TIBC 190, iron saturation 26% - Ferritin level --> 69 Blood workup done on 11/01/2022: -WBC 6800, H&H of 7.8/27.3, MCV 107, Platelet 354,000 -BUN/Creat: 25/1.2, Calcium 8.1 (09/20/2022). Ferritin Latest Ref Rng 30 - 400 ng/mL 03/03/2022 26 (L) 07/06/2022 89 10/06/2022 69 03/22/2023 60 06/14/2023 43 07/12/2023 40 09/06/2023 52 09/13/2023 40 09/20/2023 48 10/05/2023 46 10/25/2023 92 Blood workup done on 11/02/2023: -WBC 4600, H&H of 6.8/23, Platelet count of 593287, MCV 108.5. -BUN/Creat: 32/2.0, Calcium 9.6, total protein 8.4, normal LFT, albumin 2.9 ( 09/20/2023) ASSESSMENT AND PLAN: 87-year-old the male, who has mild anemia related to the abnormal kidney function, also had upper GI bleed earlier in late 2020, he was admitted at [facility], received blood transfusion. - Lytic lesion noted in the left proximal femur, S/P orthopedic intervention with the road placement, biopsy showed plasma cell infiltration, bone marrow findings consistent with multiple myeloma, hehas IgA myeloma, anemia is main present, no hypercalcemia, has chronic renal insufficiency but no worsening renal failure noted He has underlying several comorbid conditions, mainly dementia, not much ambulating, came to clinicin the wheelchair. Family decided not to proceed with any kind of aggressive treatment option for myeloma. Overall he has done well in the last 1 year other than some infectious complications CBCD, hopeless, he gets periodic blood count, may have received about 20 units of blood transfusions in the last 1year. I reviewed his recent blood workup, once again persistent anemia but no change in the WBC or Platelet count, kidney and liver function has remained stable, no hypercalcemia. It appears that he may have ongoing intermittent GI bleed, I would like to transfuse him 1 unit of PRBC today I would like to give intravenous iron the form Venofer every weekly x4 and then continue IV iron every 2 weekly. He will have every weekly blood workup ( CBCD). initially when he comes for the Venofer. Will repeat Ferritin about 1 month after the last weekly iron. I am planning to see him back in the clinic in about [address] Pietro Sykes Hem/Onc (This note was completed using the dictation program Fluency Direct. As such, there may be misspellings word substitutions, or other variations that should not change the essence of the clinical content of this encounter note. If there is need for further clarification, please direct questions to the provider listed above.) documented in this encounter Nursing Notes * Pascale Ratliff, ISADORA - 11/03/2023 9:52 AM EST Patient identifed by name and birthdate Do you have any concerns about pain management for today's visit? No Living Will or Advance Directive for Health Care as noted on the problem list. [facility] is a way you can talk to your provider on line through e-mail. Would you like to sign up? I can activate it for you? ALREADY ACTIVE Filed Vitals: 11/03/23 0951 BP: 109/65 Pulse: 98 Resp: 16 SpO2: 91% Weight: 87.7 kg (193 lb 6.4 oz) Height: 1.803 m (5' 10.98") Patient was instructed to not get up on the exam table/exam chair until directed and assisted by their provider; patient is to remain seated in the chair/ wheelchair/ exam table/ exam chair for fall prevention and safety reasons. Patient is aware to have assistance to step down off exam table/exam chair with personnel. Patient voiced full comprehension of instructions. documented in this encounter Plan of Treatment Upcoming Encounters Date Type Department Care Team (Late st Contact Info) Description 11/08/2023 9:20 AM EST Laboratory Lab [facility] [address] [place] [address] [facility] Mobile Home Draw [address] [place] [address] 11/13/2023 10:00 AM EST Home Visit [facility] [address] [place] [address] Lila Brownlee RN [address] [place] [address] 11/15/2023 9:10 AM EST Laboratory Lab [facility] [address] [place] [address] [facility], [facility] Mobile Home Draw [address] [place] [address] 11/15/2023 9:20 AM EST Laboratory Lab [facility] [address] [place] [address] [facility], [facility] Mobile Home Draw [address] [place] [address] 11/29/2023 9:10 AM EST Laboratory Lab [facility] [address] [place] [address] [facility], [facility] Mobile Home Draw [address] [place] [address] 12/13/2023 9:10 AM EDT Laboratory Lab Mobile Phlebotomy C [address] [place] [address] Gmc, [facility] Mobile Home Draw [address] [place] [address] 01/04/2024 10:20 AM EDT Office Visit Otol[facility]ology [facility] [address] [place] [address] Kasi Tejeda PA-C [address] [place] [address] 01/26/2024 11:20 AM EDT Office Visit Family Medicine [address] [place] [phone] Zenobia Lyon MD [address] [place] [address] [place] [address] 03/07/2024 1:00 PM EDT Office Visit Cardiology [address] [place] [address] Chris Choudhury PA-C [address] [place] [address] 03/08/2024 2:45 PM EDT Office Visit Hematology/Oncology [facility] [address] [facility] [address] Pietro Sykes MD [address] [facility] [address] Scheduled Procedures Name Priority Associated Diagnoses Date/Ti [...] Additional history exists CKD PHOS USE SMARTSET 47957 07/25/202407/03, 09/07/2022, 09/05/2022, Additional history exists CKD HGB USE SMARTSET 72290 11/02/202411/02, 11/02/2023, 10/25/2023, Additional history exists O2 [...] encounter Medical Devices Implanted Type Area Manager Garden Device Identifier Shelf Expiration Date Model / Serial / Lot Screw T2 Alpha Lock 5x47.5mm - [id number] Implanted:Qty: 1 on 09/06/2022 by Sean Silva MD at OR [facility] Left: Leg Upper RICHELLE : TRAUMA 06/01/2032 [id number] / / [id number] documented as of this encounter Visit Diagnoses Diagnosis Iron deficiency anemia, unspecified iron deficiency anemia type- Primary Multiple myeloma not having achieved remission (HCC) Multiple myeloma, without mention of having achieved remission documented in this encounter Advance Directives Documents on File Type Date Recorded Patient Product Development Actuary Expl anation POLST 10/17/2022 [place] DERS [...] Agen t (per Health Care Power of Spiral Machine Operator document) Reji Trejo Adult Child First Alterna te Health Care Agent (per Health Care Power of Spiral Machine Operator document) Bowen Tello Adult Child First Alternate Health Care Agent (per Health Care Power of Spiral Machine Operator document) Care Teams Space Controller Relationship Specialty Start Date End Date Zenobia Lyon MD [address] [place] [address] [place] [address] PCP - General Family Medicine 05/22/23 documented as of this encounter
--- OUTSIDE RECORDS SUMMARY | 2023-11-09 04:51 | External Medical Summary | Summary of Care ---
Author Name Unknown Organization [facility] Address [address] [place] [address] Phone [phone] Care Team Providers Care Progressive Care Manager Name Role Phone Zenobia Lyon MD Primary Care Provide r Reason for Visit * Reason Onset Date Comments Test Results Lab 11/03/2023 Encounter Details Date Type Department Care Team (Late st Contact Info) Description 11/03/2023 Telephone Hematology/Oncology Treatment, [place] [address] [place], [place] [phone] Pietro Sykes MD 200 [place] [address] Test Results Lab Allergies Active Allergy Reactions [...] 75 MG Oral Tablet (pLAVix)Indications: Atherosclerosis of [place] coronary artery of [place] heart without angina pectoris Take 1 Tablet [...] 90 Tablet 0 09/18/2023 Active Saline Nasal [place] 0.65 % Nasal Solution (Saline Mist [place]) Use 2 sprays into Nostril every 1 [...] Assessment & Plan: Following with hematology Dr Sykse CBCD weekly at home Transfusions prn, almost [...] Plan Other/Additional Comments: will reach out to [facility] Exacerbation Plan BMP Chest X-Ray Additional [...] CORONARY ATHEROSCLEROSIS OF UNSPECIFIED TYPE OF VESSEL, [place] OR GRAFT Last Assessment & Plan: Stable. [...] MCG/0.3 mL, 12 YRS AND ABOVE, IM ([facility]) 07/19/2023 Covid-19, Mrna, Lnp-s, Pf, B ivalent, 30 Mcg, IM, 12 yrs and above ([employer]) 08/29/2022 Pneumococcal Conjugate Vacc, 13 Valent (Prevnar) [...] Patient to receive 1 unit PRBC. Called [facility] blood bank (Elissa). They can get blood. Called [facility] MTU (Umm). Patient scheduled for today at [...] 11/03/2023 10:45 AM EST Office Visit Hematology/Oncology [place] Blank [address] [place] [address] Pietro Sykes MD 200 [facility] [place] [address] 11/08/2023 9:20 AM EST Laboratory Lab Mobile Phlebotomy [facility] [address] [place], [place] [phone] [facility], [facility] Mobile Home Draw [address] [place] [address] 11/13/2023 10:00 AM EST Home Visit [facility] [place], [facility] 132 [facility] [place] [address] Lila Brownlee, RN 132 [place] [address] 11/15/2023 9:10 AM EST Laboratory Lab Mobile Phlebotomy C [address] [place] [address] Gmc, Gml Mobile Home Draw [address] [place] [address] 11/15/2023 9:20 AM EST Laboratory Lab Mobile Phlebotomy [facility] [address] [place] [address] Gm, Gml Mobile Home Draw [address] [place] [address] 11/29/2023 9:10 AM EST Laboratory Lab Mobile Phlebotomy [facility] [address] [place] [address] Gm, Gml Mobile Home Draw [address] [place] [address] 12/13/2023 9:10 AM EDT Laboratory Lab Mobile Phlebotomy [facility] [address] [place] [address] [facility], Gml Mobile Home Draw [address] [place] [address] 01/04/2024 10:20 AM EDT Office Visit Otol[facility]ology [facility] 132 [facility] [place] [address] Kasi Tejeda PA-C 132 [facility] [place] [address] 01/26/2024 11:20 AM EDT Office Visit Family Medicine [address] [place] [phone] Zenobia Lyon MD [address] [place] [address] [place] [address] 03/07/2024 1:00 PM EDT Office Visit Cardiology [address] [place] [address] Chris Choudhury PA-C [address] [place] [address] Scheduled Procedures Name Priority Associated Diagnoses Date/Ti [...] Additional history exists CKD PHOS USE SMARTSET 06441 07/25/2024 102 12/2022, 09/07/2022, 09/05/2022, Additional history exists O2 ASSESSMENT COMPLETED IN PAST YEAR FOR COPD 09/29/2024 09/29/2023 CKD HGB USE SMARTSET 24137 11/02/202411/02, 11/02/2023, 10/25/2023, Additional history exists COLONOSCOPY-EVERY 5 YRS AGES [...] this encounter Medical Devices Implanted Type Area [facility] Office Supervisor Device Identifier Shelf Expiration Date Model / Serial / Lot Screw T2 Alpha Lock 5x47.5mm - [id number] Implanted:Qty: 1 on 09/06/2022 by Sean Silva MD at [facility] Left: Leg Upper RICHELLE : TRAUMA 06/01/2032 [id number] / / [id number] documented as of this encounter Advance Directives Documents on File Type Date Recorded 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
--- OUTSIDE RECORDS SUMMARY | 2023-11-09 04:51 | External Medical Summary | Summary of Care ---
Author Name Unknown Organization [facility] Address [address] [place] [address] Phone [phone] Care Team Providers Care Food Expeditor Name Role Phone Zenobia Lyon MD Primary Care Provide r Reason for Visit * Reason Onset Date Comments Test Results Lab 11/03/2023 Encounter Details Date Type Department Care Team (Late st Contact Info) Description 11/03/2023 Telephone Hematology/Oncology Treatment, [place] [address] [place], [place] [phone] Pietro Sykes MD 200 [place] [address] Test Results Lab Allergies Active Allergy Reactions [...] 75 MG Oral Tablet (pLAVix)Indications: Atherosclerosis of [place] coronary artery of [place] heart without angina pectoris Take 1 Tablet [...] 90 Tablet 0 09/18/2023 Active Saline Nasal [place] 0.65 % Nasal Solution (Saline Mist [place]) Use 2 sprays into Nostril every 1 [...] Plan Other/Additional Comments: will reach out to [facility] Exacerbation Plan BMP Chest X-Ray [...] CORONARY ATHEROSCLEROSIS OF UNSPECIFIED TYPE OF VESSEL, [place] OR GRAFT Last Assessment & Plan: Stable. [...] hematuria 05/30/2022 01/24/2023 Overview: Xavier to [facility] 04/20-04/29 urosepsis multi drug resistant E. Coli [...] MCG/0.3 mL, 12 YRS AND ABOVE, IM ([facility] [facility]) 07/19/2023 Covid-19, Mrna, Lnp-s, [...] encounter Miscellaneous Notes * Telephone Encounter - Jeniffer Spence RN - 11/03/2023 11:02 AM EST Ordered received for Venofer. [place] plan built and routed to provider for signature. Scheduling: please coordinate with the patient for his weekly Venofer x 4/draw CBC with IV start. 2hour treatment. Patient and provider prefer this to be done every MONDAY. Thank you! * Telephone Encounter - Tiny Chase RN - 11/03/2023 8:27 AM EST Patient to receive 1 unit PRBC. Called [facility] blood bank (Elissa). They can get blood. Called [facility] MTU (Umm). Patient scheduled for today at [...] 9:20 AM EST Laboratory Lab [facility]bot[facility] [address] [place] [address] Gmc, Gml Mobile Home Draw [address] [place] [address] 11/13/2023 10:00 AM EST Home Visit [facility] [place], [facility] [address] [place] [address] Lila Brownlee RN 132 [place] [address] 11/15/2023 9:10 AM EST Laboratory Lab [facility]bot[facility] [address] [place] [address] Gm, Gml Mobile Home Draw [address] [place] [address] 11/15/2023 9:20 AM EST Laboratory Lab [facility] [address] [place] [address] Gmc, Gml Mobile Home Draw [address] [place] [address] 11/29/2023 9:10 AM EST Laboratory Lab [facility] [address] [place] [address] Gmc, Gml Mobile Home Draw [address] [place] [address] 12/13/2023 9:10 AM EDT Laboratory Lab [facility] [address] [place] [address] Gmc, Gml Mobile Home Draw [address] [place] [address] 01/04/2024 10:20 AM EDT Office Visit Otolaryngology [facility] [address] [place] [address] Kasi Tejeda PA-C [address] [place] [address] 01/26/2024 11:20 AM EDT Office Visit Family Medicine [address] [place] [phone] Zenobia Lyon MD [address] [place] [address] [place] [address] 03/07/2024 1:00 PM EDT Office Visit Cardiology [address] [place] [address] Chris Choudhury PA-C 132 [place] [address] 03/08/2024 2:45 PM EDT Office Visit Hematology/Oncology [facility] 200 [facility] [place] [address] Pietro Sykes MD [address] [place] [address] Scheduled Procedures Name Priority Associated Diagnoses Date/Ti [...] Additional history exists CKD PHOS USE SMARTSET 70156 07/25/202407/03, 09/07/2022, 09/05/2022, Additional history exists CKD HGB USE SMARTSET 88570 11/02/202411/02, 11/02/2023, 10/25/2023, Additional history exists O2 [...] this encounter Medical Devices Implanted Type Area Club Licensee Device Identifier Shelf Expiration Date Model / Serial / Lot Screw T2 Alpha Lock 5x47.5mm - [id number] Implanted:Qty: 1 on 09/06/2022 by Sean Silva MD at [place] [facility] Left: Leg Upper RICHELLE : TRAUMA 06/01/2032 [id number] / / [id number] documented as of this encounter Advance Directives Documents on File Type Date Recorded 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
--- OUTSIDE RECORDS SUMMARY | 2023-11-09 04:52 | External Medical Summary ---
Author Name Unknown Address Unknown Organization K01:[facility]ATORY [facility] - [address] [place] [address] Laboratory Report Ordering Provider Test Date Status ROSAMARIA MOLINA 11/02/2023 14:18:05 Final Observation Date Value Abnormality Reference (Units ) Status ABO 11/02/2023 14:18:05 A Final RH 11/02/2023 14:18:05 Positive Final RED BLOOD CELL ANTIBODY SCREEN 11/02/2023 14:18:05 Negative Final SPECIMEN EXPIRATION DATE 11/02/2023 14:18:05 11/05/2023 23:59 Final Performing Location LAB[facility]ORY [facility] - [address] [place] [address]
--- OUTSIDE RECORDS SUMMARY | 2023-11-09 04:52 | External Medical Summary ---
Author Name Unknown Address Unknown Organization K01:[facility] [place] [address] [place] [address] Laboratory Report Ordering Provider Test Date Status DEB BULL 11/02/2023 14:18:05 Final Observation Date Value Abnormality Reference (Units ) Status WBC, Total 11/02/2023 14:18:05 4.60 4.00-10.80 (K/uL) Final RBC 11/02/2023 14:18:05 2.13 4.50-5.25 (M/uL) Final Hemoglobin 11/02/2023 14:18:05 6.8 Below low normal 14.0-16.8 (g/dL) Final HCT 11/02/2023 14:18:05 23.1 Below low normal 40.0-48.4 (%) Final MCV 11/02/2023 14:18:05 108.5 82.0-99.5 (fL) Final MCH 11/02/2023 14:18:05 31.9 27.0-34.0 (pg) Final MCHC 11/02/2023 14:18:05 29.4 32.0-36.0 (g/dL) Final RDW 11/02/2023 14:18:05 19.2 11.5-15.5 (%) Final Platelets 11/02/2023 14:18:05 276 140-400 (K/uL) Final MPV 11/02/2023 14:18:05 9.8 6.6-11.1 (fL) Final Nucleated erythrocytes/100 leukocytes [Ratio] in Blood by Automated count 11/02/2023 14:18:05 0 <=0 (/100 WBCs) Final Performing Location LABORATORY C - [address] [place] [address]
--- OUTSIDE RECORDS SUMMARY | 2023-11-09 04:52 | External Medical Summary | Summary of Care ---
Author Name Unknown Organization [facility] Address [address] [facility] [place] [address] Phone [phone] Care Team Providers Care Veterinary Nurse Name Role Phone Zenobia Lyon MD Primary Care Provide r Reason for Visit * Reason Comments Outpatient Testing Encounter Details Date Type Department Care Team (Late st Contact Info) Description 11/02/2023 2:20 PM EST Laboratory Laboratory [address] [place] [phone] [place] [address] Arrived Allergies Active Allergy Reactions Criticality Noted Date Comments James Inhibitors 09/10/2002 cough on prinivil Hydrocodone 09/05/2022 Family states AMS change when taken Prednisone 05/26/2011 Blisters in throat Sulfa Antibiotics 03/19/2001 dysurea documented as of this encounter (statuses as of 11/02/2023) Medications Medication Sig Dispensed Refills Start Date [...] MG Oral Tablet (pLAVix)Indications: Atherosclerosis of [place] coronary artery of [place] heart without angina pectoris Take 1 Tablet [...] 90 Tablet 0 09/18/2023 Active Saline Nasal [place] 0.65 % Nasal Solution (Saline Mist [place]) Use 2 sprays into Nostril every 1 hour as needed for dry nasal passages 44 mL 0 09/27/2023 Active Ferrous Sulfate 325 (65 Fe) MG Oral Tablet (Feosol)Indications: 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 0 10/27/2023 Active documented as of this encounter (statuses as of 11/02/2023) Active Problems Patient Care Coordination No te [...] Plan Other/Additional Comments: will reach out to [facility] Exacerbation Plan BMP Chest X-Ray Additional Comments: [...] CORONARY ATHEROSCLEROSIS OF UNSPECIFIED TYPE OF VESSEL, [place] OR GRAFT Last Assessment & Plan: Stable. 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 documented as of this encounter (statuses as of 11/02/2023) Resolved Problems Problem Noted Date Diagnosed Date [...] as of this encounter (statuses as of 11/02/2023) Immunizations Name Administration Dates Next Due COVID-19 mRNA, LNP-s, No Pre serve, 2-Dose Series (Moderna) 08/24/2021,12/07/2020,11/09/2020 COVID-19, MRNA-LNP, 23-24, P F, 30 MCG/0.3 mL, 12 YRS AND ABOVE, IM ([employer]) 07/19/2023 Covid-19, Mrna, Lnp-s, Pf, B ivalent, 30 Mcg, IM, 12 yrs and above ([employer]) 08/29/2022 Pneumococcal Conjugate Vacc, 13 Valent (Prevnar) [...] 11/03/2023 10:45 AM EST Office [facility] [address] [facility] [place] [address] Pietro Sykes MD [address] [facility] [place] [address] 11/08/2023 9:20 AM EST Laboratory Lab Mobile Phlebotomy [facility] [address] [place] [address] [place], Gml Mobile Home Draw [address] [place] [address] 11/13/2023 10:00 AM EST Home Visit [facility] 132 [place] [address] Lila Brownlee RN 132 [place] [address] 11/15/2023 9:10 AM EST Laboratory Lab Mobile Phlebotomy [facility] [address] [place] [address] Gmc, Gml Mobile Home Draw [address] [place] [address] 11/15/2023 9:20 AM EST Laboratory Lab Mobile Phlebotomy [facility] [address] [place] [address] Gmc, Gml Mobile Home Draw [address] [place] [address] 11/29/2023 9:10 AM EST Laboratory Lab Mobile Phlebotomy [facility] [place] [address] [place] [address] Gmc, Gml Mobile Home Draw [address] [place] [address] 12/13/2023 9:10 AM EDT Laboratory Lab Mobile Phlebotomy [facility] [place] [address] [facility] [place] [address] [place], [facility] Mobile Home Draw [address] [place] [address] 01/04/2024 10:20 AM EDT Office Visit Otolaryngology [facility] [address] [place] [address] Kasi Tejeda PA-C [address] [place] [address] 01/26/2024 11:20 AM EDT Office Visit Family Medicine [address] [place] [phone] Zenobia Lyon MD [address] [place] [address] [place] [address] 03/07/2024 1:00 PM EDT Office Visit Cardiology [address] [place] [address] Chris Choudhury PA-C [address] [place] [address] Scheduled Procedures Name Priority Associated Diagnoses Date/Ti [...] Additional history exists CKD PHOS USE SMARTSET 45170 07/25/202407/03, 09/07/2022, 09/05/2022, Additional history exists O2 ASSESSMENT COMPLETED IN PAST YEAR FOR COPD 09/29/2024 09/29/2023 CKD HGB USE SMARTSET 80903 10/25/202410/25, 10/25/2023, 10/11/2023, Additional history exists COLONOSCOPY-EVERY 5 YRS AGES [...] this encounter Medical Devices Implanted Type Area Test Lead Device Identifier Shelf Expiration Date Model / Serial / Lot Screw T2 Alpha Lock 5x47.5mm - [id number] Implanted:Qty: 1 on 09/06/2022 by Sean Silva MD at [place] [facility] [place] Left: Leg Upper RICHELLE : TRAUMA 06/01/2032 [id number] / / [id number] documented as of this encounter Advance Directives Documents on File Type Date Recorded 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
--- OUTSIDE RECORDS SUMMARY | 2023-11-09 04:52 | External Medical Summary | Summary of Care ---
Author Name Unknown Organization [facility] Address [address] [facility] [place] [address] Phone [phone] Care Team Providers Care Entry Level Marketing Representative Name Role Phone Zenobia Lyon MD Primary Care Provide r Reason for Visit * Reason Comments Outpatient Testing Encounter Details Date Type Department Care Team (Late st Contact Info) Description 11/02/2023 2:20 PM EST Laboratory Laboratory [address] [place] [phone] [place] [address] Arrived Allergies Active Allergy Reactions Criticality Noted [...] 75 MG Oral Tablet (pLAVix)Indications: Atherosclerosis of [place] coronary artery of [place] heart without angina pectoris Take 1 Tablet [...] 90 Tablet 0 09/18/2023 Active Saline Nasal [place] 0.65 % Nasal Solution (Saline Mist [place]) Use 2 sprays into Nostril every 1 [...] Plan Other/Additional Comments: will reach out to [facility] Exacerbation Plan BMP Chest X-Ray [...] MCG/0.3 mL, 12 YRS AND ABOVE, IM ([employer]) 07/19/2023 Covid-19, Mrna, Lnp-s, Pf, B ivalent, 30 Mcg, IM, 12 yrs and above ([employer]) 08/29/2022 Pneumococcal Conjugate Vacc, 13 Valent (Prevnar) [...] Hematology/On[facility] 200 [facility] [place] [address] Pietro Sykes MD 200 [facility] [place] [address] 11/08/2023 9:20 AM EST Laboratory Lab Mobile Phlebotomy [facility] [address] [place] [address] [facility], Gml Mobile Home Draw [address] [place] [address] 11/13/2023 10:00 AM EST Home Visit [facility] 132 [place] [address] Lila Brownlee RN 132 [place] [address] 11/15/2023 9:10 AM EST Laboratory Lab Mobile Phlebotomy [facility] [address] [place] [address] Gmc, Gml Mobile Home Draw [address] [place] [address] 11/15/2023 9:20 AM EST Laboratory Lab Mobile Phlebotomy [facility] [address] [place] [address] Gmc, Gml Mobile Home Draw [address] [place] [address] 11/29/2023 9:10 AM EST Laboratory Lab Mobile Phlebotomy [facility] [address] [place] [address] Gmc, Gml Mobile Home Draw [address] [place] [address] 12/13/2023 9:10 AM EDT Laboratory Lab Mobile Phlebotomy [facility] [address] [facility] [place] [address] [facility], [facility] Mobile Home Draw [address] [place] [address] 01/04/2024 10:20 AM EDT Office Visit Otolaryngology [facility] [address] [place] [address] Kasi Tejeda PA-C [address] [place] [address] 01/26/2024 11:20 AM EDT Office Visit Family Medicine [address] [place] [phone] Zenobia Lyon MD [address] [place] [address] [place] [address] 03/07/2024 1:00 PM EDT Office Visit Cardiology [address] [place] [address] Chris Choudhury PA-C [address] [place] [address] Scheduled Procedures Name Priority Associated Diagnoses Date/Ti [...] Additional history exists CKD PHOS USE SMARTSET 25569 07/25/202407/03, 09/07/2022, 09/05/2022, Additional history exists O2 ASSESSMENT COMPLETED IN PAST YEAR FOR COPD 09/29/2024 09/29/2023 CKD HGB USE SMARTSET 16355 10/25/202410/25, 10/25/2023, 10/11/2023, Additional history exists COLONOSCOPY-EVERY [...] this encounter Medical Devices Implanted Type Area People Manager Device Identifier Shelf Expiration Date Model / Serial / Lot Screw T2 Alpha Lock 5x47.5mm - [id number] Implanted:Qty: 1 on 09/06/2022 by Sean Silva MD at OR [facility] Left: Leg Upper RICHELLE : TRAUMA 06/01/2032 2360-5047S / / [id number] documented as of this encounter Advance Directives Documents on File Type Date Recorded 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 And Boning 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 anation POLST 10/17/2022 [place] [...] Agen t (per Health Care Power of Technology Applications Consultant document) Reji Tello Neil Adult Child First Alterna te Health Care Agent (per Health Care Power of Technology Applications Consultant document) Bowen Tello Adult Child First Alternate Health Care Agent (per Health Care Power of Technology Applications Consultant document) Care Teams Entry Level Marketing Representative Relationship Specialty Start Date End Date Zenobia Lyon MD [address] [place] [address] [place] [phone] PCP - General Family Medicine 05/22/23 documented as of this encounter
--- OUTSIDE RECORDS SUMMARY | 2023-11-09 04:52 | External Medical Summary ---
Author Name Unknown Address Unknown Organization K01:LABORATORY [facility] [place] - 100 [facility] [place] [address] Laboratory Report Ordering Provider Test Date Status DEB BULL 11/02/2023 14:18:05 Final Observation Date Value Abnormality Reference (Units ) Status SYNC LEUKOCYTES IN BLOOD BY AUTOMATED COUNT 11/02/2023 14:18:05 4.60 4.00-10.80 (K/uL) Final Segs 11/02/2023 14:18:05 52.1 40.0-75.0 (%) Final Lymphs % 11/02/2023 14:18:05 27.6 18.0-42.0 (%) Final Monos 11/02/2023 14:18:05 12.2 Above high normal 1.0-11.0 (%) Final Eosinophils 11/02/2023 14:18:05 7.0 Above high normal 0.0-6.0 (%) Final Basos 11/02/2023 14:18:05 0.4 0.0-2.0 (%) Final Immature Granulocyte, Percent 11/02/2023 14:18:05 0.7 0.0-2.0 (%) Final Absolute Segs 11/02/2023 14:18:05 2.40 1.80-7.70 (K/uL) Final Lymphs, absolute 11/02/2023 14:18:05 1.27 1.00-4.80 (K/ul) Final Monos, Abs 11/02/2023 14:18:05 0.56 0.00-1.10 (K/uL) Final Eos, Abs 11/02/2023 14:18:05 0.32 0.00-0.70 (K/uL) Final Basos, Abs 11/02/2023 14:18:05 0.02 0.00-0.20 (K/uL) Final Immature Granulocytes, Number 11/02/2023 14:18:05 0.03 0.00-0.20 (K/uL) Final Performing Location LABORATORY [facility] [place] - [facility] [address]. [facility] [address]
--- OUTSIDE RECORDS SUMMARY | 2023-11-09 04:52 | External Medical Summary | Summary of Care ---
Author Name Unknown Organization [facility] Address [address] [facility] [place] [address] Phone [phone] Care Team Providers Care Duplicating Machine Operator Name Role Phone Zenobia Lyon MD Primary Care Provide r Reason for Visit * Reason Comments Outpatient Testing Encounter Details Date Type Department Care Team (Late st Contact Info) Description 11/02/2023 2:20 PM EST Laboratory Laboratory [address] [place] [phone] [place] [address] Arrived Allergies Active Allergy Reactions Criticality Noted [...] 90 Tablet 0 09/18/2023 Active Saline Nasal [place] 0.65 % Nasal Solution (Saline Mist [place]) Use 2 sprays into Nostril every 1 [...] Plan Other/Additional Comments: will reach out to [facility] Exacerbation Plan BMP Chest X-Ray [...] CORONARY ATHEROSCLEROSIS OF UNSPECIFIED TYPE OF VESSEL, [place] OR GRAFT Last Assessment & Plan: Stable. [...] MCG/0.3 mL, 12 YRS AND ABOVE, IM (Singular-Comirnat) 07/19/2023 Covid-19, Mrna, Lnp-s, Pf, B ivalent, 30 Mcg, IM, 12 yrs and above (Spayee) 08/29/2022 Pneumococcal Conjugate Vacc, 13 Valent (Prevnar) [...] 11/03/2023 10:45 AM EST Office [facility] [address] [facility] [place] [address] Pietro Sykes MD [address] [facility] [place] [address] 11/08/2023 9:20 AM EST Laboratory Lab [place]bot[facility] [address] [place] [address] [facility] Mobile Home Draw [address] [place] [address] 11/13/2023 10:00 AM EST Home Visit [facility] [address] [place] [address] Lila Brownlee RN 132 [place] [address] 11/15/2023 9:10 AM EST Laboratory Lab Mobile Phlebotomy [facility] [address] [place] [address] [facility], Gml Mobile Home Draw [address] [place] [address] 11/15/2023 9:20 AM EST Laboratory Lab Mobile Phlebotomy [facility] [address] [place] [address] [facility], Gml Mobile Home Draw [address] [place] [address] 11/29/2023 9:10 AM EST Laboratory Lab [place] [address] [place] [address] [facility], Gml Mobile Home Draw [address] [place] [address] 12/13/2023 9:10 AM EDT Laboratory Lab Mobile Phlebotomy [facility] [address] [facility] [place] [address] [facility], [facility] Mobile Home Draw [address] [place] [address] 01/04/2024 10:20 AM EDT Office Visit Otolaryngology [facility] [address] [place] [address] Kasi Tejeda PA-C [address] [place] [address] 01/26/2024 11:20 AM EDT Office Visit Family Medicine [address] [place] [phone] Zenobia Lyon MD [address] [place] [address] [place] [address] 03/07/2024 1:00 PM EDT Office Visit Cardiology [address] [place] [address] Chris Choudhury PA-C [address] [place] [address] Scheduled Procedures Name Priority Associated Diagnoses Date/Ti [...] Additional history exists CKD PHOS USE SMARTSET 20972 07/25/202407/03, 09/07/2022, 09/05/2022, Additional history exists O2 ASSESSMENT COMPLETED IN PAST YEAR FOR COPD 09/29/2024 09/29/2023 CKD HGB USE SMARTSET 07919 10/25/202410/25, 10/25/2023, 10/11/2023, Additional history exists COLONOSCOPY-EVERY [...] encounter Medical Devices Implanted Type Area Certified Alcohol Counselor Device Identifier Shelf Expiration Date Model / Serial / Lot Screw T2 Alpha Lock 5x47.5mm - [id number] Implanted:Qty: 1 on 09/06/2022 by Sean Silva [place] [facility] [place]: Leg Upper RICHELLE : TRAUMA 06/01/2032 [id number] / / [id number] documented as of this encounter Advance Directives Documents on File Type Date Recorded 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
--- OUTSIDE RECORDS SUMMARY | 2023-11-09 04:52 | External Medical Summary | Summary of Care ---
Author Name Unknown Organization [facility] Address [address] [facility] [place] [address] Phone [phone] Care Team Providers Care General Internal Medicine Doctor Name Role Phone Zenobia Lyon MD Primary Care Provide r Reason for Visit * Reason Comments Outpatient Testing Encounter Details Date Type Department Care Team (Late st Contact Info) Description 11/02/2023 2:20 PM EST Laboratory Laboratory [address] [place] [phone] [place] [address] Arrived Allergies Active Allergy Reactions Criticality Noted [...] 75 MG Oral Tablet (pLAVix)Indications: Atherosclerosis of [place] coronary artery of [place] heart without angina pectoris Take 1 Tablet [...] 90 Tablet 0 09/18/2023 Active Saline Nasal [place] 0.65 % Nasal Solution (Saline Mist [place]) Use 2 sprays into Nostril every 1 [...] Plan Other/Additional Comments: will reach out to [facility] Exacerbation Plan BMP Chest X-Ray Additional [...] CORONARY ATHEROSCLEROSIS OF UNSPECIFIED TYPE OF VESSEL, [place] OR GRAFT Last Assessment & Plan: Stable. [...] 01/24/2023 Overview: [facility] [place] [facility] [place] MCG/0.3 mL, 12 YRS AND ABOVE, IM (Urban Matrix-Comirnat) 07/19/2023 Covid-19, Mrna, Lnp-s, Pf, B ivalent, 30 Mcg, IM, 12 yrs and above (Andera) 08/29/2022 Pneumococcal Conjugate Vacc, 13 Valent (Prevnar) [...] 11/03/2023 10:45 AM EST Office [facility] [place] [address] Pietro Sykes MD [address] [facility] [place] [address] 11/08/2023 9:20 AM EST Laboratory Lab Mobile Phlebotomy [facility] [address] [place] [address] [facility], Gml Mobile Home Draw [address] [place] [address] 11/13/2023 10:00 AM EST Home Visit [facility] [address] [place] [address] Lila Brownlee RN [address] [place] [address] 11/15/2023 9:10 AM EST Laboratory Lab Mobile Phlebotomy [facility] [address] [place] [address] [facility], Gml Mobile Home Draw [address] [place] [address] 11/15/2023 9:20 AM EST Laboratory Lab Mobile Phlebotomy [facility] [address] [place] [address] [facility], Gml Mobile Home Draw [address] [place] [address] 11/29/2023 9:10 AM EST Laboratory Lab Mobile Phlebotomy [facility] [address] [place] [address] Gmc, Gml Mobile Home Draw [address] [place] [address] 12/13/2023 9:10 AM EDT Laboratory Lab Mobile Phlebotomy [facility] [address] [facility] [place] [address] [facility], [facility] Mobile Home Draw [address] [place] [address] 01/04/2024 10:20 AM EDT Office Visit Otolaryngology [facility] [address] [place] [address] Kasi Tejeda PA-C [address] [place] [address] 01/26/2024 11:20 AM EDT Office Visit Family Medicine [address] [place] [phone] Zenobia Lyon MD [address] [place] [address] [place] [address] 03/07/2024 1:00 PM EDT Office Visit Cardiology [address] [place] [address] Chris Choudhury PA-C [address] [place] [address] Scheduled Procedures Name Priority Associated Diagnoses Date/Ti [...] Additional history exists CKD PHOS USE SMARTSET 66034 07/25/202407/03, 09/07/2022, 09/05/2022, Additional history exists O2 ASSESSMENT COMPLETED IN PAST YEAR FOR COPD 09/29/2024 09/29/2023 CKD HGB USE SMARTSET 99498 10/25/202410/25, 10/25/2023, 10/11/2023, Additional history exists COLONOSCOPY-EVERY [...] this encounter Medical Devices Implanted Type Area Hat Presser Device Identifier Shelf Expiration Date Model / Serial / Lot Screw T2 Alpha Lock 5x47.5mm - [id number] Implanted:Qty: 1 on 09/06/2022 by Sean Silva MD at [place] [facility] Left: Leg Upper RICHELLE : TRAUMA 06/01/2032 [id number] / / [id number] documented as of this encounter Advance Directives Documents on File Type Date Recorded Patient Concierge Manager Expl anation POLST 10/17/2022 [place] OR DERS [...] Agen t (per Health Care Power of Top Printing Press Operator document) Reji Tello Neil Adult Child First Alterna te Health Care Agent (per Health Care Power of Top Printing Press Operator document) Bowen Tello Adult Child First Alternate Health Care Agent (per Health Care Power of Top Printing Press Operator document) Care Teams General Internal Medicine Doctor Relationship Specialty Start Date End Date Zenobia Lyon MD [address] [place] [address] [place] [phone] PCP - General Family Medicine 05/22/23 documented as of this encounter
--- OUTSIDE RECORDS SUMMARY | 2023-11-09 04:52 | External Medical Summary | Summary of Care ---
Author Name Unknown Organization [facility] Address [address] [place] [facility] [place] [address] Phone [phone] Care Team Providers Care Older Adult Social Work Specialist Name Role Phone Zenobia Lyon MD Primary Care Provide r Reason for Visit * Reason Comments Outpatient Testing Encounter Details Date Type Department Care Team (Late st Contact Info) Description 11/02/2023 2:20 PM EST Laboratory Laboratory [address] [place] [phone] [place] [address] Arrived Allergies Active Allergy Reactions Criticality Noted [...] artery of lime heart without angina pectoris Take 1 Tablet [...] 90 Tablet 0 09/18/2023 Active Saline Nasal [place] 0.65 % Nasal Solution (Saline Mist [place]) Use 2 sprays into Nostril every 1 [...] Other/Additional Comments: will reach out to [facility] Exacerbation Plan BMP Chest X-Ray Additional [...] CORONARY ATHEROSCLEROSIS OF UNSPECIFIED TYPE OF VESSEL, [place] OR GRAFT Last Assessment & Plan: Stable. [...] hematuria 05/30/2022 01/24/2023 Overview: Xavier to [facility] 04/20-04/29 urosepsis multi drug resistant E. Coli [...] glenn ek & Lt. leg ; Rt. jew 07/0207/18/2002 07/15/2015 Dyslipidemia, goal to be determined [...] MCG/0.3 mL, 12 YRS AND ABOVE, IM (TCHO-Comirnat) 07/19/2023 Covid-19, Mrna, Lnp-s, Pf, B ivalent, 30 Mcg, IM, 12 yrs and above (Qlibri) 08/29/2022 Pneumococcal Conjugate Vacc, 13 Valent (Prevnar) [...] 11/03/2023 10:45 AM EST Office [facility] [place] [address] Pietro Sykes MD 200 [facility] [place] [address] 11/08/2023 9:20 AM EST Laboratory Lab Mobile Phlebotomy [facility] [address] [place] [address] [facility] Gml Mobile Home Draw [address] [place] [address] 11/13/2023 10:00 AM EST Home Visit [facility] [address] [place] [address] Lila Brownlee RN [address] [place] [address] 11/15/2023 9:10 AM EST Laboratory Lab Mobile Phlebotomy [facility] [address] [place] [address] [facility], Gml Mobile Home Draw [address] [place] [address] 11/15/2023 9:20 AM EST Laboratory Lab Mobile Phlebotomy [facility] [address] [place] [address] [facility], Gml Mobile Home Draw [address] [place] [address] 11/29/2023 9:10 AM EST Laboratory Lab Mobile Phlebotomy [facility] [address] [place] [address] [facility], Gml Mobile Home Draw [address] [place] [address] 12/13/2023 9:10 AM EDT Laboratory Lab Mobile Phlebotomy [facility] [address] [place] [facility] [place] [address] [facility], [facility] Mobile Home Draw [address] [place] [address] 01/04/2024 10:20 AM EDT Office Visit Otolaryngology [facility] [address] [place] [address] Kasi Tejeda PA-C [address] [place] [address] 01/26/2024 11:20 AM EDT Office Visit Family Medicine [address] [place] [phone] Zenobia Lyon MD [address] [address] [place] [address] 03/07/2024 1:00 PM EDT Office Visit Cardiology [address] [place] [address] Chris Choudhury PA-C [address] [place] [address] Scheduled Procedures Name Priority Associated Diagnoses Date/Ti [...] Additional history exists CKD PHOS USE SMARTSET 47276 07/25/202407/03, 09/07/2022, 09/05/2022, Additional history exists O2 ASSESSMENT COMPLETED IN PAST YEAR FOR COPD 09/29/2024 09/29/2023 CKD HGB USE SMARTSET 89144 10/25/202410/25, 10/25/2023, 10/11/2023, Additional history exists COLONOSCOPY-EVERY [...] Medical Devices Implanted Type Area Computer Systems Engineer Device Identifier Shelf Expiration Date Model / Serial / Lot Screw T2 Alpha Lock 5x47.5mm - [id number] Implanted:Qty: 1 on 09/06/2022 by Sean Silva MD at OR [facility] Left: Leg Upper RICHELLE : TRAUMA 06/01/2032 [id number] / / [id number] documented as of this encounter Advance Directives Documents on File Type Date Recorded Patient Rn Burn Expl anation POLST 10/17/2022 [place] OR DERS [...] Agen t (per Health Care Power of [place] document) Reji Tello Neil Adult Child First Alterna te Health Care Agent (per Health Care Power of [place] document) Bowen Tello Adult Child First Alternate Health Care Agent (per Health Care Power of [place] document) Care Teams Older Adult Social Work Specialist Relationship Specialty Start Date End Date Zenobia Lyon MD [address] [place] [address] [place] [phone] PCP - General Family Medicine 05/22/23 documented as of this encounter
--- OUTSIDE RECORDS SUMMARY | 2023-11-09 04:52 | External Medical Summary | Summary of Care ---
Author Name Unknown Organization [facility] Address [address] [place] [facility] [place] [address] Phone [phone] Care Team Providers Care Spa Concierge Name Role Phone Zenobia Lyon MD Primary Care Provide r Reason for Visit * Reason Comments Outpatient Testing Encounter Details Date Type Department Care Team (Late st Contact Info) Description 11/02/2023 2:20 PM EST Laboratory Laboratory [address] [place] [phone] [place] [address] Arrived Allergies Active Allergy Reactions Criticality Noted [...] 75 MG Oral Tablet (pLAVix)Indications: Atherosclerosis of [place] coronary artery of [place] heart without angina pectoris Take 1 Tablet [...] 90 Tablet 0 09/18/2023 Active Saline Nasal [place] 0.65 % Nasal Solution (Saline Mist [place]) Use 2 sprays into Nostril every 1 [...] Plan Other/Additional Comments: will reach out to [facility] Exacerbation Plan BMP Chest X-Ray [...] CORONARY ATHEROSCLEROSIS OF UNSPECIFIED TYPE OF VESSEL, [place] OR GRAFT Last Assessment & Plan: [...] without hematuria 05/30/2022 01/24/2023 Overview: Xavier to [facility] 04/20-04/29 urosepsis multi drug resistant [...] MCG/0.3 mL, 12 YRS AND ABOVE, IM (Web Wonks-Comirnat) 07/19/2023 Covid-19, Mrna, Lnp-s, Pf, B ivalent, 30 Mcg, IM, 12 yrs and above (Araca) 08/29/2022 Pneumococcal Conjugate Vacc, 13 Valent (Prevnar) [...] 11/03/2023 10:45 AM EST Office [facility] [place] [address] Pietro Sykes MD 200 [facility] [place] [address] 11/08/2023 9:20 AM EST Laboratory Lab Mobile Phlebotomy [facility] [place] [place] [address] [place] [address] [facility], Gml Mobile Home Draw [address] [place] [address] 11/13/2023 10:00 AM EST Home Visit [facility] [address] [place] [address] Lila Brownlee RN [address] [place] [address] 11/15/2023 9:10 AM EST Laboratory Lab Mobile Phlebotomy [facility] [address] [place] [address] [facility], Gml Mobile Home Draw [address] [place] [address] 11/15/2023 9:20 AM EST Laboratory Lab Mobile Phlebotomy [facility] [address] [place] [address] [facility], Gml Mobile Home Draw [address] [place] [address] 11/29/2023 9:10 AM EST Laboratory Lab Mobile Phlebotomy [facility] [place] [place] [address] [place] [address] Gmc, Gml Mobile Home Draw [address] [place] [address] 12/13/2023 9:10 AM EDT Laboratory Lab Mobile Phlebotomy [facility] [place] [place] [address] [place] [facility] [place] [address] [facility], [facility] Mobile Home Draw [address] [place] [address] 01/04/2024 10:20 AM EDT Office Visit Otolaryngology [facility] [address] [place] [address] Kasi Tejeda PA-C [address] [place] [address] 01/26/2024 11:20 AM EDT Office Visit Family Medicine [address] [place] [phone] Zenobia Lyon MD [address] [place] [address] [place] [address] 03/07/2024 1:00 PM EDT Office Visit Cardiology [address] [place] [address] Chris Choudhury PA-C [address] [place] [address] Scheduled Procedures Name Priority Associated Diagnoses Date/Ti [...] Additional history exists CKD PHOS USE SMARTSET 40940 07/25/202407/03, 09/07/2022, 09/05/2022, Additional history exists O2 ASSESSMENT COMPLETED IN PAST YEAR FOR COPD 09/29/2024 09/29/2023 CKD HGB USE SMARTSET 15416 10/25/202410/25, 10/25/2023, 10/11/2023, Additional history exists COLONOSCOPY-EVERY [...] this encounter Medical Devices Implanted Type Area Assessment Rn Device Identifier Shelf Expiration Date Model / Serial / Lot Screw T2 Alpha Lock 5x47.5mm - [id number] Implanted:Qty: 1 on 09/06/2022 by Sean Silva MD at OR [facility] [place] Left: Leg Upper RICHELLE : TRAUMA 06/01/2032 [id number] / / [id number] documented as of this encounter Advance Directives Documents on File Type Date Recorded 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
--- OUTSIDE RECORDS SUMMARY | 2023-11-09 04:53 | External Medical Summary | Summary of Care ---
Author Name Unknown Organization [facility] Address [address] [place] [address] Phone [phone] Care Team Providers Care Investment Underwriter Name Role Phone Zenobia Lyon MD Primary Care Provide r Reason for Visit * Reason Onset Date Comments Advice 10/24/2023 Encounter Details Date Type Department Care Team (Late st Contact Info) Description 10/24/2023 Telephone Family [address] [phone] Zenobia Lyon MD [address] [place] [address] [place] [address] Advice Allergies Active Allergy Reactions Criticality Noted Date Comments James Inhibitors 09/10/2002 cough on prinivil Hydrocodone 09/05/2022 Family states AMS change when taken Prednisone 05/26/2011 Blisters in throat Sulfa Antibiotics 03/19/2001 dysurea documented as of this encounter (statuses as of 10/31/2023) Medications Medication Sig Dispensed Refills Start Date [...] of [place] heart without angina pectoris Take 1 [...] 90 Tablet 0 09/18/2023 Active Saline Nasal [place] 0.65 % Nasal Solution (Saline Mist [place]) Use 2 sprays into Nostril every 1 hour as needed for dry nasal passages 44 mL 0 09/27/2023 Active documented as of this encounter (statuses as of 10/31/2023) Active Problems Patient Care Coordination No te [...] Plan Other/Additional Comments: will reach out to [facility] Exacerbation Plan BMP Chest X-Ray Additional Comments: [...] CORONARY ATHEROSCLEROSIS OF UNSPECIFIED TYPE OF VESSEL, RESIGHINI OR GRAFT Last Assessment & Plan: Stable. 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 Coli [...] as of this encounter (statuses as of 10/31/2023) Immunizations Name Administration Dates Next Due COVID-19 mRNA, LNP-s, No Pre serve, 2-Dose Series (Moderna) 08/24/2021,12/07/2020,11/09/2020 COVID-19, MRNA-LNP, 23-24, P F, 30 MCG/0.3 mL, 12 YRS AND ABOVE, IM (Novadiol-ComirnatAtlas Genetics) 07/19/2023 Covid-19, Mrna, Lnp-s, Pf, B ivalent, [...] Telephone Encounter - Zenobia Lyon MD - 10/31/2023 8:58 AM EST noted * Telephone Encounter - Fransisco Uribe OSA - 10/24/2023 11:33 AM EST PT is receiving Iv and final dose is today 10/24 order to remove Iv line after today's dose. Thank you (Chart will home infusion) documented in this encounter Plan of Treatment Upcoming Encounters Date Type Department Care Team (Late st Contact Info) Description 11/01/2023 9:10 AM EST Laboratory Lab [place] [address] [place] [address] [facility], [facility] Mobile Home Draw [address] [place] [address] 11/01/2023 9:20 AM EST Laboratory Lab [facility] [place] [address] [place] [address] [facility], [facility] Mobile Home Draw [address] [place] [address] 11/03/2023 10:45 AM EST Office Visit Hematology/Oncology Marcia Sylvester [place] [address] [facility] [place] [address] Pietro Sykes MD [address] [facility] [place] [address] 11/08/2023 9:20 AM EST Laboratory Lab Mobile Phlebotomy C [address] [place] [address] [facility], [facility] Mobile Home Draw [address] [place] [address] 11/13/2023 10:00 AM EST Home Visit [facility] [address] [place] [address] Lila Brownlee, SANKET [address] [place] [address] 11/15/2023 9:10 AM EST Laboratory Lab Mobile [facility] [address] [place] [address] [facility], [facility] Mobile Home Draw [address] [place] [address] 11/15/2023 9:20 AM EST Laboratory Lab Mobile Phlebotomy [facility] [address] [place] [address] [facility], [facility] Mobile Home Draw [address] [place] [address] 11/29/2023 9:10 AM EST Laboratory Lab [facility] [address] [place] [address] [facility], [facility] Mobile Home Draw [address] [place] [address] 12/13/2023 9:10 AM EDT Laboratory Lab [facility] [place] [address] [place] [address] [facility] [place] Draw [address] [place] [address] 01/04/2024 10:20 AM EDT Office Visit Otolaryngology [facility] [address] [place] [address] Kasi Tejeda PA-C [address] [place] [address] 01/26/2024 11:20 AM EDT Office Visit Family [address] [address] Zenobia Lyon MD [address] [place] [address] [place] [address] 03/07/2024 1:00 PM EDT Office Visit Cardiology [address] [place] [address] Chris Choudhury PA-Yael [address] [place] [address] Scheduled Procedures Name Priority Associated Diagnoses Date/Ti [...] Additional history exists CKD PHOS USE SMARTSET 12389 07/25/202407/03, 09/07/2022, 09/05/2022, Additional history exists O2 ASSESSMENT COMPLETED IN PAST YEAR FOR COPD 09/29/2024 09/29/2023 CKD HGB USE SMARTSET 19919 10/25/202410/25, 10/25/2023, 10/11/2023, Additional history exists COLONOSCOPY-EVERY [...] this encounter Medical Devices Implanted Type Area Coding Specialist Device Identifier Shelf Expiration Date Model / Serial / Lot Screw T2 Alpha Lock 5x47.5mm - [id number] Implanted:Qty: 1 on 09/06/2022 by Sean Silva MD at [facility] Left: Leg Upper RICHELLE : TRAUMA 06/01/2032 [id number] / / [id number] documented as of this encounter Advance Directives Documents on File Type Date Recorded Patient Terrazzo Finisher Expl anation POLST 10/17/2022 [place] D[place] [...] t (per Health Care Power of Broadcast Producer document) Reji Omer Dotts Adult Child First Alterna te Health Care Agent (per Health Care Power of Broadcast Producer document) Bowen Tello Adult Child First Alternate Health Care Agent (per Health Care Power of Broadcast Producer document) Care Teams Investment Underwriter Relationship Specialty Start Date End Date Zenobia Lyon MD [address] [place] [address] [place] [address] PCP - General Family Medicine 05/22/23 documented as of this encounter
--- OUTSIDE RECORDS SUMMARY | 2023-11-09 04:53 | External Medical Summary | Summary of Care ---
Author Name Unknown Organization [facility] Address [address] [place] [address] Phone [phone] Care Team Providers Care Junior Legal Secretary Name Role Phone Zenobia Lyon MD Primary Care Provide r Encounter Details Date Type Department Care Team (Late st Contact Info) Description 10/27/2023 11:00 AM EST [facility] Visit [facility] [address] [place] [address] Brennen Kay PA-C [address] [place] [address] Multiple myeloma not having achieved remission (HCC)*; 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); 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 (HCC); Chronic atrial fibrillation (HCC); Primary open-angle glaucoma, bilateral, mild stage; Dyslipidemia, goal LDL below 70; 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) Use to test blood sugar as [...] 19, 2023. 1 Each 0 3 Active Digoxin 125 MCG Oral Tablet (Lanoxin) TAKE ONE TABLET 3 days per week 36 Tablet 3 3 Active Pantoprazole Sodium 40 MG Oral Tablet Delayed Release (Protonix)Indication s:GERD (gastroesophageal reflux disease) Take 1 Tablet by mouth daily. 90 Tablet 1 3 Active Clopidogrel Bisulfate 75 MG Oral Tablet (pLAVix)Indications: Atherosclerosis of [place] coronary artery of [place] heart without angina pectoris Take 1 Tablet by mouth in the morning. 90 Tablet 3 3 Active Additional Information Patient taking differently:75 mg [...] the morning. 126 Tablet 2 3 Active glipiZIDE ER 5 MG Oral Tablet Extended Release 24 Hour (glipiZIDE XL) Take 1 Tablet by mouth in the morning. 30 minutes before a meal.. 90 Tablet 0 3 Active Saline Nasal [place] 0.65 % Nasal Solution (Saline Mist [place]) Use 2 sprays into Nostril every 1 hour as needed for dry nasal passages 44 mL 0 3 Active Ferrous Sulfate 325 (65 Fe) MG Oral Tablet (Feosol)Indications: 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 0 4 Active Ferrous Sulfate 325 (65 Fe) MG Oral Tablet (Feosol)Indications: 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 (HCC) TAKE ONE TABLET BY MOUTH TWICE DAILY 180 Tablet 3 3 10/27/19 24 Discontinu ed(Refill) documented as of this encounter (statuses as of 10/27/2023) Active Problems Patient Care Coordination No te [...] Plan Other/Additional Comments: will reach out to [facility] Exacerbation Plan BMP Chest X-Ray Additional [...] as of this encounter (statuses as of 10/27/2023) Resolved Problems Problem Noted Date Diagnosed Date [...] as of this encounter (statuses as of 10/27/2023) Immunizations Name Administration Dates Next Due COVID-19 mRNA, LNP-s, No Pre serve, 2-Dose Series (Moderna) 08/24/2021,12/07/2020,11/09/2020 COVID-19, MRNA-LNP, 23-24, P F, 30 MCG/0.3 mL, 12 YRS AND ABOVE, IM (goodideazs-Comirnaty) 07/19/2023 Covid-19, Mrna, Lnp-s, Pf, B ivalent, [...] Progress Notes * Brennen Kay PA-C - 10/27/2023 10:29 AM EST Images from the original note were not included. [facility] at Home Problem Oriented Charting Provider Visit Date: 10/27/2023 Time: 10:29 AM [facility] Sub-Program: Primary Care at Home Assessment and Plan #1 Multiple myeloma not having achieved remission (HCC) (Primary) Overview: Bone marrow examination (09/20/2022: - Plasma cell myeloma, plasma cells 70%. - Plasma cell myeloma FISH: Positive for gain of chromosome 1q, hyperdiploidy, monosomy 16, and IGHrearrangement involving an unidentified gene Assessment & Plan: Following with hematology Dr Sykes CBCD weekly at home Transfusions prn, almost weekly at this point #2 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) Assessment & Plan: Mild Spouse providing 24/04 care #3 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 (HCC) - Ferrous Sulfate; Take 1 Tablet by mouth every other day. #4 Chronic atrial fibrillation (HCC) Assessment & Plan: Rate controlled Not on anticoag due to frequent falls #5 Primary open-angle glaucoma, bilateral, mild stage #6 Dyslipidemia, goal LDL below 70 Overview: Per Lipid Taxonomy. 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) Overview: Per CKD protocol Assessment & Plan: "RED FLAG" HF Symptoms: [...] Plan Other/Additional Comments: will reach out to [facility] Exacerbation Plan BMP Chest X-Ray Additional Comments: Euvolemic today Has not required any DTP #8 History of recurrent UTIs Assessment & Plan: Recent admission for UTI with sepsis requiring IV antibiotics Continue prophylactic methenamine bid Additional Medical Decision Making: Patient with dementia Lives with spouse as primary caregiver, although she is also elderly and at times has to rely on son/daughter to help in the home Daughter lives next door, son lives 0.5 miles away Overall he continues to be able to dress, shower and toilet himself Spouse manages meals and medications POLST reviewed Remains DNR,DNI Would like to continue with prn blood transfusions at this time Aware that hospice would be recommended once they no longer are interested in transfusions Scheduled appointments in the next 60 days: Future Appointments-next 60 days Date/Time Provider Specialty Dept Phone 10/27/2023 11:00 AM Brennen Kay PA-C [facility] [phone] 10/30/2023 5:00 PM (Arrive by 4:45 PM) Sherron Lyles MD Family Medicine [phone] 11/01/2023 9:10 AM [facility] Mobile Home Draw Laboratory Processing [phone] 11/01/2023 9:20 AM [facility] [place] Mobile Home Draw Laboratory Processing [phone] 11/03/2023 10:45 AM (Arrive by 10:30 AM) Pietro Sykes MD Hematology Oncology [phone] 11/08/2023 9:20 AM [facility] Mobile Home Draw Laboratory Processing [phone] 11/13/2023 10:00 AM Lila Brownlee RN [facility] [phone] 11/15/2023 9:10 AM [facility] Mobile Home Draw Laboratory Processing [phone] 11/15/2023 9:20 AM [facility] Mobile Home Draw Laboratory Processing [phone] 11/29/2023 9:10 AM [facility] Mobile Home Draw Laboratory Processing [phone] 12/13/2023 9:10 AM [facility] Mobile Home Draw Laboratory Processing [phone] 01/04/2024 10:20 AM (Arrive by 10:05 AM) Kasi Tejeda PA-C Otolaryngology [phone] 01/26/2024 11:20 AM (Arrive by 11:05 AM) Zenobia Lyon MD Family Medicine [phone] 03/07/2024 1:00 PM (Arrive by 12:45 PM) Chris Choudhury PA-C Cardiology [phone] A total of 30 minutes was spent face to face (via video-based telemedicine if designated as a telemedicine visit) Subjective Subjective Is this a Telemedicine Visit? No, this is an Home Visit. Reason For [facility] Visit: Transition of Care Current Concerns: Marshall Palaciosmarianela Guzman is a 88 year old male seen today for a [facility] provider visit. Today's concerns are: Ongoing fatigue related to multiple myeloma Recently admitted to [facility] 10/14-10/20/23 - [facility] - UTI, sepsis, anemia -treated with IV antibiotics, 2 units PRBC, discharged with PICC and completed antibiotics at home Spouse reports that he appears to be back to his baseline No falls since returning home No urinary complaints Was assessed by home PT/OT, but was decided that he did not require home therapy Spouse, son, and daughter present today Reviewed multiple myeloma diagnosis along with s/s including anemia, fatigue, weakness, bone pain, increased susceptibility to infections Has f/u hematology next week Transfusions have become more frequent and now getting labs weekly Spouse questioning restarting plavix. Was d/c after significant epistaxis. Advised to remain off plavix at this time due to recurrent falls and nosebleeds Spouse also states that he was not using o2 while admitted at [facility], unable to review whether o2 wasmonitored overnight. Suggested checking o2 while he is sleeping without oxygen Additional Objective Objective There were no vitals filed for this visit. Last Weights: Wt Readings from Last 3 Encounters: 10/05/23 88.9 kg (196 lb) 09/08/23 91.8 kg (202 lb 4.8 oz) 08/29/23 91.1 kg (200 lb 12.8 oz) Last BPs: BP Readings from Last 4 Encounters: 09/29/23 128/58 08/29/23 134/58 08/28/23 178/78 07/25/23 122/60 General: alert and no distress Neuro: alert & oriented x 2 with fluent speech Heart: regular rate & rhythm and no murmur Lungs: no chest wall tenderness, lungs clear to auscultation Abdomen: abdomen soft, non-tender, normal bowel sounds, and no rebound or guarding Ext: Normal extremities without edema Lab Review: I have reviewed the following results: Imaging results in the last 6 months No imaging results in the last 6 months BMP results Recent Labs Units 10/05/23 1115 09/20/23 0927 09/13/23 1000 SODIUM - [facility] mmol/L 143 143 142 POTASSIUM - [facility] mmol/L 4.2 4.6 4.5 CHLORIDE - [facility] mmol/L 100 99 101 CO2 - [facility] mmol/L 24 26 26 CREATININE - [facility] mg/dL 1.8* 2.0* 1.6* BUN - [facility] mg/dL 30* 32* 35* Lipid panel resultsNo results for input(s): "CHOL", "LDLCALC", "HDL", "TRIG" in the last 214[address] hours. CBC results Recent Labs Units 10/25/23 0906 10/11/23 0859 10/05/23 1115 WBC AUTO - [facility] K/uL 4.65 4.93 4.74 HGB - [facility] g/dL 8.2* 7.1* 7.1* HCT - [facility] % 27.3* 23.2* 23.3* PLATELET AUTO - [facility] K/uL 328 207 228 HbA1c results Recent Labs Units 01/25/23 0806 09/06/22 0324 01/14/22 1627 HEMOGLOBIN A1C - [facility] % 9.3* 7.8* 6.4* Medication Review "Bottles Out" medication review performed today and medication list in EMR updated Brennen Kay PA-C 10:29 AM *Communication sent to PCP (via autofax if [facility]), [facility], [facility] Care Team members,relevant Specialty Care Physicians* documented in this encounter Miscellaneous Notes * Assessment & Plan Note - Brennen Kay PA-C - 10/27/2023 5:48 PM EST Associated Problem(s): History of recurrent UTIs Recent admission for UTI with sepsis requiring IV antibiotics Continue prophylactic methenamine bid * Assessment & Plan Note - Brennen Kay PA-C - 10/27/2023 5:46 PM EST Associated Problem(s): 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) "RED FLAG" HF Symptoms: Leg Swelling (Examples: [...] Plan Other/Additional Comments: will reach out to [facility] Exacerbation Plan BMP Chest X-Ray Additional Comments: Euvolemic today Has not required any DTP * Assessment & Plan Note - Brennen Kay PA-C - 10/27/2023 5:44 PM EST Associated Problem(s): Chronic atrial fibrillation (HCC) Rate controlled Not on anticoag due to frequent falls * Assessment & Plan Note - Brennen Kay PA-C - 10/27/2023 5:43 PM EST Associated Problem(s): 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) Mild Spouse providing 24/04 care * Assessment & Plan Note - Brennen Kay PA-C - 10/27/2023 5:42 PM EST Associated Problem(s): Multiple myeloma (HCC) Following with hematology Dr Sykes CBCD weekly at home Transfusions prn, almost weekly at this point documented in this encounter Plan of Treatment Upcoming Encounters Date Type Department Care Team (Late st Contact Info) Description 10/30/2023 5:00 PM EST Office Visit Family Medicine [address] [address] Sherron Lyles MD [address] [place] [address] [place] [address] 11/01/2023 9:10 AM EST Laboratory Lab Mobile Phlebotomy [facility] [address] [place] [address] [facility] [place] Mobile Home Draw [address] [place] [address] 11/01/2023 9:20 AM EST Laboratory Lab Mobile Phlebotomy [facility] [address] [place] [address] [facility] [place] Mobile Home Draw [address] [place] [address] 11/03/2023 10:45 AM EST Office Visit Hematology/Oncology Marcia Sylvester [place] [address] [place] [address] Pietro Sykes MD [address] [place] [address] 11/08/2023 9:20 AM EST Laboratory Lab Mobile Phlebotomy [facility] [address] [place] [address] [facility] [place] Draw [address] [place] [address] 11/13/2023 10:00 AM EST Home Visit [facility] [place] [address] [place] [address] Lila Brownlee, SANKET [address] [place] [address] 11/15/2023 9:10 AM EST Laboratory Lab Mobile Phlebotomy [facility] [address] [place] [address] [facility] [place] Mobile Home Draw [address] [place] [address] 11/15/2023 9:20 AM EST Laboratory Lab Mobile Phlebotomy [facility] [address] [place] [address] [facility] [place] Draw [address] [place] [address] 11/29/2023 9:10 AM EST Laboratory Lab Mobile Phlebotomy [facility] [address] [place] [address] [facility] [place] [place] Draw [address] [place] [address] 12/13/2023 9:10 AM EDT Laboratory Lab Mobile Phlebotomy [facility] [address] [place] [address] [facility] [place] Draw [address] [place] [address] 01/04/2024 10:20 AM EDT Office Visit Otolaryngology [facility] [address] [place] [address] Kasi Tejeda PA-C [address] [place] [address] 01/26/2024 11:20 AM EDT Office Visit Family Medicine [address] [place] [phone] Zenobia Lyon MD [address] [place] [address] [place] [address] 03/07/2024 1:00 PM EDT Office Visit Cardiology [address] [place] [address] Chris Choudhury PA-C [address] [place] [address] Scheduled Procedures Name Priority Associated Diagnoses Date/Ti [...] Additional history exists CKD PHOS USE SMARTSET 33047 07/25/202407/03, 09/07/2022, 09/05/2022, Additional history exists O2 ASSESSMENT COMPLETED IN PAST YEAR FOR COPD 09/29/2024 09/29/2023 CKD HGB USE SMARTSET 91943 10/25/202410/25, 10/25/2023, 10/11/2023, Additional history exists COLONOSCOPY-EVERY [...] this encounter Medical Devices Implanted Type Area Profile Grinder Device Identifier Shelf Expiration Date Model / Serial / Lot Screw T2 Alpha Lock 5x47.5mm - [id number] Implanted:Qty: 1 on 09/06/2022 by Sean Silva MD at [facility] Left: Leg Upper RICHELLE : TRAUMA 06/01/2032 [id number] / / [id number] documented as of this encounter Visit Diagnoses Diagnosis Multiple myeloma not having achieved remission (HCC)- Primary Multiple myeloma, without mention of having achieved remission 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) 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 (HCC) Chronic atrial fibrillation (HCC) Atrial fibrillation Primary open-angle glaucoma, bilateral, mild stage Dyslipidemia, goal LDL below 70 Other and unspecified hyperlipidemia 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) History of recurrent UTIs Personal history of urinary (tract) infection documented in this encounter Advance Directives Documents on File Type Date Recorded Patient Adult Basic Studies Teacher Expl anation POLST 10/17/2022 [place] [...] Agen t (per Health Care Power of Outsole Flexer document) Reji Tello Dotts Adult Child First Alterna te Health Care Agent (per Health Care Power of Outsole Flexer document) Bowen Tello Adult Child First Alternate Health Care Agent (per Health Care Power of Outsole Flexer document) Care Teams Junior Legal Secretary Relationship Specialty Start Date End Date Zenobia Lyon MD [address] [place] [address] [place] [address] PCP - General Family Medicine 05/22/23 documented as of this encounter
--- OUTSIDE RECORDS SUMMARY | 2023-11-09 04:53 | External Medical Summary | Summary of Care ---
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 Allergies Active Allergy Reactions Criticality Noted Date Comments James Inhibitors 09/10/2002 cough on prinivil Hydrocodone 09/05/2022 Family states AMS change when taken Prednisone 05/26/2011 Blisters in throat Sulfa Antibiotics 03/19/2001 dysurea documented as of this encounter (statuses as of 10/31/2023) Medications Medication Sig Dispensed Refills Start Date End Date Status OXYGENIndications:Hy poxia,Acute systolic CHF (congestive heart failure) ([facility]) 2L/min via nasal cannula 24 hours continous, [...] mellitus with peripheral vascular disease ([facility]) Use to test blood sugar as needed 100 Strip 3 2 Active OneTouch UltraSoft LancetsIndications:T ype 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 ([facility]) Use to test blood sugar [...] MG Oral Tablet (pLAVix)Indications: Atherosclerosis of [place] coronary artery of [place] heart without angina pectoris Take 1 [...] 90 Tablet 0 3 Active Saline Nasal [place] 0.65 % Nasal Solution (Saline Mist [place]) Use 2 sprays into Nostril every 1 [...] & Plan: Following with hematology Dr Sykes CBCTeodoro weekly at home Transfusions prn, almost weekly [...] Plan Other/Additional Comments: will reach out to [facility] Exacerbation Plan BMP Chest X-Ray [...] CORONARY ATHEROSCLEROSIS OF UNSPECIFIED TYPE OF VESSEL, [place] OR GRAFT Last Assessment & Plan: Stable. [...] 05/30/2022 01/24/2023 Overview: Xavier to [facility] [...] MCG/0.3 mL, 12 YRS AND ABOVE, IM ([employer]-Comirnaty) 07/19/2023 Covid-19, Mrna, Lnp-s, Pf, B ivalent, [...] No 09/05/2022 documented as of this encounter Nursing Notes * Kathie Ambriz LPN - 10/26/2023 3:02 PM EST Patient and implanted device were evaluated today in the [facility]. Providers please see scanned report in the Scans tab. Per [employer] device advisory: Programed all HV therapy pathways B>AX in all therapy zones . Left pectoral device pocket is healthy without erythema, swelling, pain, or drainage. Tech: Reji Yu documented in this encounter Plan of Treatment Upcoming Encounters Date Type Department Care Team (Late st Contact Info) Description 11/01/2023 9:10 AM EST Laboratory Lab Mobile Phlebotomy [facility] [address] [place] [address] [facility], [facility] Mobile Home Draw [address] [place] [address] 11/01/2023 9:20 AM EST Laboratory Lab Mobile Phlebotomy [facility] [address] [place] [address] [facility], l Mobile Home Draw [address] [place] [address] 11/03/2023 10:45 AM EST Office Visit Hematology/Oncology Marcia Sylvester [place] [address] [place] [address] Pietro Sykes MD [address] [place] [address] 11/08/2023 9:20 AM EST Laboratory Lab Mobile Phlebotomy [facility] [address] [place] [address] [facility], Gml Mobile Home Draw [address] [place] [address] 11/13/2023 10:00 AM EST Home Visit [facility]ma [facility]er at [facility] 132 [facility] [place] [address] Lila Brownlee RN 132 [place] [address] 11/15/2023 9:10 AM EST Laboratory Lab Mobile Phlebotomy [facility] [address] [place] [address] Gm, Gml Mobile Home Draw [address] [place] [address] 11/15/2023 9:20 AM EST Laboratory Lab Mobile Phlebotomy [facility] [address] [place] [address] Gm, Gml Mobile Home Draw [address] [place] [address] 11/29/2023 9:10 AM EST Laboratory Lab Mobile Phlebotomy [facility] [address] [place] [address] [facility], Gml Mobile Home Draw [address] [place] [address] 12/13/2023 9:10 AM EDT Laboratory Lab Mobile Phlebotomy [facility] [address] [place] [address] [facility], Gml Mobile Home Draw [address] [place] [address] 01/04/2024 10:20 AM EDT Office Visit Otolaryngology [facility] 132 [facility] [place] [address] Kasi Tejeda PA-C 132 [facility] [place] [address] 01/26/2024 11:20 AM EDT Office Visit Family Medicine [address] [place] [phone] Zenobia Lyon MD [address] [place] [address] [place] [address] 03/07/2024 1:00 PM EDT Office Visit Cardiology [address] [place] [address] Chris Choudhury PA-C [address] [place] [address] Scheduled Orders Name Type Priority Associated Diagnoses Orde r Schedule MULTI-LEAD DEFIBRILLATOR + REPROGRAM Procedures Routine Tachy-lorna syndrome (HCC) Ischemic cardiomyopathy Persistent atrial fibrillation (HCC) Biventricular implantable cardioverter-defibrilla tor in situ Ordered: 10/26/2023 Scheduled Procedures Name Priority Associated Diagnoses Date/Ti [...] Additional history exists CKD PHOS USE SMARTSET 70705 07/25/202407/03, 09/07/2022, 09/05/2022, Additional history exists O2 ASSESSMENT COMPLETED IN PAST YEAR FOR COPD 09/29/2024 09/29/2023 CKD HGB USE SMARTSET 30039 10/25/202410/25, 10/25/2023, 10/11/2023, Additional history exists COLONOSCOPY-EVERY [...] this encounter Medical Devices Implanted Type Area Network Engineer Administrator Device Identifier Shelf Expiration Date Model / Serial / Lot Screw T2 Alpha Lock 5x47.5mm - [id number] Implanted:Qty: 1 on 09/06/2022 by Sean Silva MD at OR [facility] Left: Leg Upper RICHELLE : TRAUMA 06/01/2032 [id number] / / [id number] documented as of this encounter Visit Diagnoses Diagnosis Tachy-lorna syndrome (HCC)- Primary Sinoatrial node dysfunction Ischemic cardiomyopathy Other specified forms of chronic ischemic heart disease Persistent atrial fibrillation (HCC) Atrial fibrillation Biventricular implantable cardioverter-defibrillator in situ documented in this encounter Advance Directives Documents on File Type Date Recorded 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
--- OUTSIDE RECORDS SUMMARY | 2023-11-09 04:53 | External Medical Summary ---
Author Name Unknown Address Unknown Organization K01:[facility] [place] [address] [facility] [place] [address] Laboratory Report Ordering Provider Test Date Status DEB BULL 10/25/2023 09:06:00 Final Observation Date Value Abnormality Reference (Units ) Status SYNC LEUKOCYTES IN BLOOD BY AUTOMATED COUNT 10/25/2023 09:06:00 4.65 4.00-10.80 (K/uL) Final Segs 10/25/2023 09:06:00 53.2 40.0-75.0 (%) Final Lymphs % 10/25/2023 09:06:00 28.8 18.0-42.0 (%) Final Monos 10/25/2023 09:06:00 9.2 1.0-11.0 (%) Final Eosinophils 10/25/2023 09:06:00 7.3 Above high normal 0.0-6.0 (%) Final Basos 10/25/2023 09:06:00 0.9 0.0-2.0 (%) Final Immature Granulocyte, Percent 10/25/2023 09:06:00 0.6 0.0-2.0 (%) Final Absolute Segs 10/25/2023 09:06:00 2.47 1.80-7.70 (K/uL) Final Lymphs, absolute 10/25/2023 09:06:00 1.34 1.00-4.80 (K/ul) Final Monos, Abs 10/25/2023 09:06:00 0.43 0.00-1.10 (K/uL) Final Eos, Abs 10/25/2023 09:06:00 0.34 0.00-0.70 (K/uL) Final Basos, Abs 10/25/2023 09:06:00 0.04 0.00-0.20 (K/uL) Final Immature Granulocytes, Number 10/25/2023 09:06:00 0.03 0.00-0.20 (K/uL) Final Performing Location [facility] [place] [address]
--- OUTSIDE RECORDS SUMMARY | 2023-11-09 04:53 | External Medical Summary | Summary of Care ---
Author Name Unknown Organization [facility] Address [address] [place] [address] Phone [phone] Care Team Providers Care License Distributor Name Role Phone Zenobia Lyon MD Primary Care Provide r Reason for Visit * Reason Onset Date Comments Test Results Lab 10/26/2023 Encounter Details Date Type Department Care Team (Late st Contact Info) Description 10/26/2023 Telephone Hematology/Oncology Treatment, [place] [address] [place] [address] Pietro Sykes MD 200 [place] [address] Test Results Lab Allergies Active Allergy Reactions Criticality Noted Date Comments James Inhibitors 09/10/2002 cough on prinivil Hydrocodone 09/05/2022 Family states AMS change when taken Prednisone 05/26/2011 Blisters in throat Sulfa Antibiotics 03/19/2001 dysurea documented as of this encounter (statuses as of 10/26/2023) Medications Medication Sig Dispensed Refills Start Date [...] 75 MG Oral Tablet (pLAVix)Indications: Atherosclerosis of [place] coronary artery of [place] heart without angina pectoris Take 1 Tablet [...] 90 Tablet 0 09/18/2023 Active Saline Nasal [place] 0.65 % Nasal Solution (Saline Mist [place]) Use 2 sprays into Nostril every 1 hour as needed for dry nasal passages 44 mL 0 09/27/2023 Active documented as of this encounter (statuses as of 10/26/2023) Active Problems Patient Care Coordination No te [...] CORONARY ATHEROSCLEROSIS OF UNSPECIFIED TYPE OF VESSEL, [place] OR GRAFT Last Assessment & Plan: Stable. 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 documented as of this encounter (statuses as of 10/26/2023) Resolved Problems Problem Noted Date Diagnosed Date [...] without hematuria 05/30/2022 01/24/2023 Overview: Xavier to [facility] 04/20-04/29 urosepsis multi drug resistant [...] as of this encounter (statuses as of 10/26/2023) Immunizations Name Administration Dates Next Due COVID-19 mRNA, LNP-s, No Pre serve, 2-Dose Series (Moderna) 08/24/2021,12/07/2020,11/09/2020 COVID-19, MRNA-LNP, 23-24, P F, 30 MCG/0.3 mL, 12 YRS AND ABOVE, IM ([employer]-Comirnaty) 07/19/2023 Covid-19, Mrna, Lnp-s, Pf, B ivalent, [...] Telephone Encounter - Tiny Chase RN - 10/26/2023 1:55 PM EST Called and spoke to patients who verbalized understanding. Mobile lab appt 11/01/23. * Telephone Encounter - Tiny Chase RN - 10/26/2023 1:54 PM EST ----- Message from Pietro Sykes MD sent at 10/26/2023 6:54 AM EST ----- Blood workup done on 10/25/2023: - Hemoglobin level 8.2. - Normal WBC and normal platelet count. No need for blood transfusion. Repeat CBCD in about one week. Will see him on 11/03/2023. documented in this encounter Plan of Treatment Upcoming Encounters Date Type Department Care Team (Late st Contact Info) Description 10/26/2023 3:00 PM EST Cardiac Studies Cardiology [address] [place] [address] Lobito Croft [facility] [address] [place] [address] 10/27/2023 11:00 AM EST [facility] Visit [facility], [facility] [address] [place] [address] Brennen Kay PA-C [address] [place] [address] 10/30/2023 5:00 PM EST Office Visit Family Medicine [address] [place] [phone] Sherron Lyles MD [address] [place] [address] [place] [address] 11/01/2023 9:10 AM EST Laboratory Lab Mobile Phlebotomy [facility] [address] [place] [address] Gmc, Gml Mobile Home Draw [address] [place] [address] 11/01/2023 9:20 AM EST Laboratory Lab Mobile Phlebotomy [facility] [address] [place] [address] Gm, Gml Mobile Home Draw [address] [place] [address] 11/03/2023 10:45 AM EST Office Visit Hematology/Oncology Marcia Sylvester [place] 200 [facility] [place], [place] [address] Pietro Sykes MD [address] [place] [address] 11/08/2023 9:20 AM EST Laboratory Lab Mobile Phlebotomy [facility] [address] [place] [address] Gmc, Gml Mobile Home Draw [address] [place] [address] 11/13/2023 10:00 AM EST Home Visit Alma Rosaer at [place], [facility] 132 [place] [address] Lila Brownlee, SANKET 132 [place] [address] 11/15/2023 9:10 AM EST Laboratory Lab Mobile Phlebotomy [facility] [address] [place] [address] [facility], Gm Mobile Home Draw [address] [place] [address] 11/15/2023 9:20 AM EST Laboratory Lab Mobile Phlebotomy [facility] [address] [place] [address] [facility], Gml Mobile Home Draw [address] [place] [address] 11/29/2023 9:10 AM EST Laboratory Lab Mobile Phlebotomy [facility] [address] [place] [address] [facility], Gml Mobile Home Draw [address] [place] [address] 12/13/2023 9:10 AM EDT Laboratory Lab Mobile Phlebotomy [facility] [address] [place] [address] [facility], Gm Mobile Home Draw [address] [place] [address] 01/04/2024 10:20 AM EDT Office Visit Otolaryngology [facility] 132 [facility] [place] [address] Kasi Tejeda PA-C 132 [facility] [place] [address] 01/26/2024 11:20 AM EDT Office Visit Family Medicine [address] [place] [phone] Zenobia Lyon MD [address] [place] [address] [place] [address] 03/07/2024 1:00 PM EDT Office Visit Cardiology [address] [place] [address] Chris Choudhury PA-C [address] [place] [address] Scheduled Procedures Name Priority Associated Diagnoses Date/Ti [...] Additional history exists CKD PHOS USE SMARTSET 45855 07/25/2024 10/2 12/2022, 09/07/2022, 09/05/2022, Additional history exists O2 ASSESSMENT COMPLETED IN PAST YEAR FOR COPD 09/29/2024 09/29/2023 CKD HGB USE SMARTSET 05286 10/25/202410/25, 10/25/2023, 10/11/2023, Additional history exists COLONOSCOPY-EVERY [...] this encounter Medical Devices Implanted Type Area Specialty Manufacturing Supervisor Device Identifier Shelf Expiration Date Model / Serial / Lot Screw T2 Alpha Lock 5x47.5mm - [id number] Implanted:Qty: 1 on 09/06/2022 by Sean Silva MD at [facility] Left: Leg Upper RICHELLE : TRAUMA 06/01/2032 [id number] / / [id number] documented as of this encounter Advance Directives Documents on File Type Date Recorded Patient Small Stock Facer Expl anation POLST 10/17/2022 [place] DERS [...] Agen t (per Health Care Power of Exchange Administrator document) Reji Omer Dotts Adult Child First Alterna te Health Care Agent (per Health Care Power of Exchange Administrator document) Bowen Tello Adult Child First Alternate Health Care Agent (per Health Care Power of Exchange Administrator document) Care Teams License Distributor Relationship Specialty Start Date End Date Zenobia Lyon MD [address] [place] [address] [place] [address] PCP - General Family Medicine 05/22/23 documented as of this encounter
--- OUTSIDE RECORDS SUMMARY | 2023-11-09 04:53 | External Medical Summary | Summary of Care ---
Author Name Unknown Organization [facility] Address [address] [place] [address] Phone [phone] Care Team Providers Care Wildlife Control Operator Name Role Phone Zenobia Lyon MD Primary Care Provide r Reason for Visit * Reason Onset Date Comments Advice 10/20/2023 Encounter Details Date Type Department Care Team (Late st Contact Info) Description 10/20/2023 Telephone Family [address] [phone] Zenobia Lyon MD [address] [place] [address] [place] [address] Advice Allergies Active Allergy Reactions Criticality Noted Date Comments James Inhibitors 09/10/2002 cough on prinivil Hydrocodone 09/05/2022 Family states AMS change when taken Prednisone 05/26/2011 Blisters in throat Sulfa Antibiotics 03/19/2001 dysurea documented as of this encounter (statuses as of 10/24/2023) Medications Medication Sig Dispensed Refills Start Date [...] 75 MG Oral Tablet (pLAVix)Indications: Atherosclerosis of [place] coronary artery of [place] heart without angina pectoris Take 1 Tablet by mouth in the morning. 90 Tablet 3 06/21/2023 Active Additional Information Patient taking differently:75 mg Oral Daily(AM),ON HOLD UNTIL 09/30, Reported on 09/29/2023 Metoprolol Succinate ER 50 MG Oral Tablet Extended Release 24 Hour (toPROL XL)Indications:Tachy -lonra syndrome (HCC),Heart failure, systolic, due to CAD [...] 90 Tablet 0 09/18/2023 Active Saline Nasal [place] 0.65 % Nasal Solution (Saline Mist [place]) Use 2 sprays into Nostril every 1 hour as needed for dry nasal passages 44 mL 0 09/27/2023 Active documented as of this encounter (statuses as of 10/24/2023) Active Problems Patient Care Coordination No te [...] CORONARY ATHEROSCLEROSIS OF UNSPECIFIED TYPE OF VESSEL, [place] OR GRAFT Last Assessment & Plan: Stable. 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 documented as of this encounter (statuses as of 10/24/2023) Resolved Problems Problem Noted Date Diagnosed Date [...] without hematuria 05/30/2022 01/24/2023 Overview: Xavier to [facility] 04/20-04/29 urosepsis multi drug resistant E. [...] glenn ek & Lt. leg ; Rt. quaker 07/0207/18/2002 07/15/2015 Dyslipidemia, goal to be determined [...] as of this encounter (statuses as of 10/24/2023) Immunizations Name Administration Dates Next Due COVID-19 [...] Telephone Encounter - Tiny Chase RN - 10/24/2023 10:33 AM EST Patients verbalized understanding. * Telephone Encounter - Pietro Sykes MD - 10/20/2023 1:48 PM EST Will keep those blood checkup appointment and will see him on 11/03/2023. * Telephone Encounter - Tiny Chase RN - 10/20/2023 12:15 PM EST Patient discharged today, discharge summary not available. Patient admitted at [facility] 10/14/23- 10/20/23 with acute UTI, anemia. Continuing ceftriaxone to complete 10 days of antibiotics. Hgb this morning was 8.3. Dr Sykes: please advise on follow up. Patient has mobile lab appt 10/25/23 and 11/01/23, follow up with you 11/03/23. * Telephone Encounter - Riana Goff OSA - 10/20/2023 12:07 PM EST Onel pt. Pt was just released from hospital and needs to be seen next week for follow up. Does have appt coming up on 11/03 as well. Is on home IV antibiotics. Was a Pt at [facility] Please call Remedios back at [phone] documented in this encounter Plan of Treatment Upcoming Encounters Date Type Department Care Team (Late st Contact Info) Description 10/25/2023 9:20 AM EST Laboratory Lab Mobile Phlebotomy [facility] [address] [place] [address] [facility], [facility] Mobile Home Draw [address] [place] [address] 10/26/2023 11:00 AM EST Cardiac Studies Cardiology [address] [place] [address] [facility] [place] [address] 10/27/2023 11:00 AM EST [facility] Visit [facility] 132 [facility] [place] [address] Brennen Kay PA-C [address] [place] [address] 10/30/2023 5:00 PM EST Office Visit Family Medicine [address] [place] [phone] Sherron Lyles MD [address] [place] [address] [place] [address] 11/01/2023 9:10 AM EST Laboratory Lab Mobile Phlebotomy [facility] [address] [place] [address] Gmc, Gml Mobile Home Draw [address] [place] [address] 11/01/2023 9:20 AM EST Laboratory Lab Mobile Phlebotomy [facility] [address] [place] [address] Gm, Gml Mobile Home Draw [address] [place] [address] 11/03/2023 10:45 AM EST Office Visit Hematology/Oncology [facility] [address] [place] [address] Pietro Sykes MD 200 [place] [address] 11/08/2023 9:20 AM EST Laboratory Lab Mobile Phlebotomy [facility] [address] [place] [address] [facility], Gml Mobile Home Draw [address] [place] [address] 11/13/2023 10:00 AM EST [facility] Visit [facility], [facility] [address] [address] Lila Brownlee, SANKET [address] [place] [address] 11/15/2023 9:10 AM EST Laboratory Lab Mobile Phlebotomy [facility] [address] [place] [address] [facility], Gml Mobile Home Draw [address] [place] [address] 11/15/2023 9:20 AM EST Laboratory Lab Mobile Phlebotomy [facility] [address] [place] [address] [facility], [facility] Mobile Home Draw [address] [place] [address] 11/29/2023 9:10 AM EST Laboratory Lab Mobile Phlebotomy [facility] [address] [place] [address] [facility], [facility] Mobile Home Draw [address] [place] [address] 12/13/2023 9:10 AM EDT Laboratory Lab Mobile Phlebotomy [facility] [address] [place] [address] [facility], [facility] Mobile Home Draw [address] [place] [address] 01/04/2024 10:20 AM EDT Office Visit Otolaryngology [facility] [address] [place] [address] Kasi Tejeda PA-C [address] [place] [address] 01/26/2024 11:20 AM EDT Office Visit Family Medicine [address] [place] [phone] Zenobia Lyon MD [address] [place] [address] [place] [address] 03/07/2024 1:00 PM EDT Office Visit Cardiology [address] [place] [address] Chris Choudhury PA-C [address] [place] [address] Scheduled Procedures Name Priority Associated Diagnoses Date/Ti [...] Additional history exists CKD PHOS USE SMARTSET 02608 07/25/202407/03, 09/07/2022, 09/05/2022, Additional history exists O2 ASSESSMENT COMPLETED IN PAST YEAR FOR COPD 09/29/2024 09/29/2023 CKD HGB USE SMARTSET 33037 10/11/202410/11, 10/11/2023, 10/05/2023, Additional history exists COLONOSCOPY-EVERY [...] this encounter Medical Devices Implanted Type Area General Ophthalmologist Device Identifier Shelf Expiration Date Model / Serial / Lot Screw T2 Alpha Lock 5x47.5mm - [id number] Implanted:Qty: 1 on 09/06/2022 by Sean Silva MD at [facility] Left: Leg Upper RICHELLE : TRAUMA 06/01/2032 [id number] / / [id number] documented as of this encounter Advance Directives Documents on File Type Date Recorded Patient Zipper Measurer Expl anation POLST 10/17/2022 [place] DERS [...] Agen t (per Health Care Power of Commissioner Public Works document) Reji Tello Dotts Adult Child First Alterna te Health Care Agent (per Health Care Power of Commissioner Public Works document) Bowen Tello Adult Child First Alternate Health Care Agent (per Health Care Power of Commissioner Public Works document) Care Teams Wildlife Control Operator Relationship Specialty Start Date End Date Zenobia Lyon MD [address] [place] [address] [place] [phone] PCP - General Family Medicine 05/22/23 documented as of this encounter
--- OUTSIDE RECORDS SUMMARY | 2023-11-09 04:53 | External Medical Summary ---
Author Name Unknown Address Unknown Organization [id number]:[facility] [place] [address] [place] [address] Laboratory Report Ordering Provider Test Date Status DEB BULL 10/25/2023 09:06:00 Final Observation Date Value Abnormality Reference (Units ) Status WBC, Total 10/25/2023 09:06:00 4.65 4.00-10.80 (K/uL) Final RBC 10/25/2023 09:06:00 2.60 4.50-5.25 (M/uL) Final Hemoglobin 10/25/2023 09:06:00 8.2 Below low normal 14.0-16.8 (g/dL) Final HCT 10/25/2023 09:06:00 27.3 Below low normal 40.0-48.4 (%) Final MCV 10/25/2023 09:06:00 105.0 82.0-99.5 (fL) Final MCH 10/25/2023 09:06:00 31.5 27.0-34.0 (pg) Final MCHC 10/25/2023 09:06:00 30.0 32.0-36.0 (g/dL) Final RDW 10/25/2023 09:06:00 17.2 11.5-15.5 (%) Final Platelets 10/25/2023 09:06:00 328 140-400 (K/uL) Final MPV 10/25/2023 09:06:00 9.8 6.6-11.1 (fL) Final Nucleated erythrocytes/100 leukocytes [Ratio] in Blood by Automated count 10/25/2023 09:06:00 0 <=0 (/100 WBCs) Final Performing Location [facility] - [address] [place] [address]
--- OUTSIDE RECORDS SUMMARY | 2023-11-09 04:53 | External Medical Summary ---
Author Name Unknown Address Unknown Organization K01:LABORATORY [facility] - [address] [place] [address] Laboratory Report Ordering Provider Test Date Status DEB BULL 10/25/2023 09:06:00 Final Observation Date Value Abnormality Reference (Units ) Status Ferritin 10/25/2023 09:06:00 92 30-400 (ng /mL) Final Performing Location [facility] - [address] [place] [address]
--- OUTSIDE RECORDS SUMMARY | 2023-11-09 04:54 | External Medical Summary | Summary of Care ---
Author Name Unknown Organization [facility] Address [address] [place] [address] Phone [phone] Care Team Providers Care Skidder Lever Operator Name Role Phone Zenobia Lyon MD Primary Care Provide r Reason for Visit * Reason Onset Date Comments Advice 10/20/2023 Encounter Details Date Type Department Care Team (Late st Contact Info) Description 10/20/2023 Telephone Family [address] [phone] Zenobia Lyon MD [address] [place] [address] [place] [address] Advice Allergies Active Allergy Reactions Criticality Noted Date Comments James Inhibitors 09/10/2002 cough on prinivil Hydrocodone 09/05/2022 Family states AMS change when taken Prednisone 05/26/2011 Blisters in throat Sulfa Antibiotics 03/19/2001 dysurea documented as of this encounter (statuses as of 10/23/2023) Medications Medication Sig Dispensed Refills Start Date [...] 75 MG Oral Tablet (pLAVix)Indications: Atherosclerosis of [place] coronary artery of [place] heart without angina pectoris Take 1 Tablet [...] 90 Tablet 0 09/18/2023 Active Saline Nasal [place] 0.65 % Nasal Solution (Saline Mist [place]) Use 2 sprays into Nostril every 1 hour as needed for dry nasal passages 44 mL 0 09/27/2023 Active documented as of this encounter (statuses as of 10/23/2023) Active Problems Patient Care Coordination No te [...] CORONARY ATHEROSCLEROSIS OF UNSPECIFIED TYPE OF VESSEL, [place]UMA OR GRAFT Last Assessment & Plan: Stable. 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 documented as of this encounter (statuses as of 10/23/2023) Resolved Problems Problem Noted Date Diagnosed Date [...] hematuria 05/30/2022 01/24/2023 Overview: Xavier to [facility] 04/20-04/29 [...] as of this encounter (statuses as of 10/23/2023) Immunizations Name Administration Dates Next Due COVID-19 [...] discharge summary not available. Patient admitted at [facility] 10/14/23- 10/20/23 with acute UTI, anemia. Continuing [...] home IV antibiotics. Was a Pt at [facility] Please call Remedios back at [phone] documented in this encounter Plan of Treatment Upcoming Encounters Date Type Department Care Team (Late st Contact Info) Description 10/25/2023 9:20 AM EST Laboratory Lab [place] [facility] [address] [place], [place] [id number] [facility] Mobile Home Draw [address], [place] [id number] 10/26/2023 11:00 AM EST Cardiac Studies Cardiology [address] [place] [address] [facility] [place] Pacer [facility] [address] [place] [address] 10/27/2023 11:00 AM EST [facility] Visit [facility] [address] [place] [address] Brennen Kay PA-C [address] [place] [address] 10/30/2023 5:00 PM EST Office Visit Family Medicine [address] [place] [phone] Sherron Lyles MD [address] [place] [address] [place] [address] 11/01/2023 9:10 AM EST Laboratory Lab [place] [facility] [address], [place] [phone] [facility] Mobile Home Draw [address], [place] [phone] 11/01/2023 9:20 AM EST Laboratory Lab [place] [facility] [address] [place] [address] [facility] Draw [address] [place] [address] 11/03/2023 10:45 AM EST Office Visit Hematology/Oncology [facility] [place] [address] [facility] [place] [address] Pietro Sykes MD [address] [facility] [place] [address] 11/08/2023 9:20 AM EST Laboratory Lab [place] [facility] [address] [place] [address] [facility] Mobile Home Draw [address] [place] [address] 11/13/2023 10:00 AM EST [facility] Visit [facility] [address] [place] [address] Lila Brownlee RN [address] [place] [address] 11/15/2023 9:10 AM EST Laboratory Lab [place] [facility] [address] [place] [address] [facility] Mobile Home Draw [address] [place] [address] 11/15/2023 9:20 AM EST Laboratory Lab [place] [facility] [address] [place] [address] [facility] Mobile Home Draw [address] [place] [address] 11/29/2023 9:10 AM EST Laboratory Lab [place] [facility] [address] [place] [address] [facility] Mobile Home Draw [address] [place] [address] 12/13/2023 9:10 AM EDT Laboratory Lab [place] [facility] [address] [place] [address] [facility] Mobile Home Draw [address] [place] [address] 01/04/2024 10:20 AM EDT Office Visit Otolaryngology [facility] [address] [place] [address] Kasi Tejeda PA-C [address] [place] [address] 01/26/2024 11:20 AM EDT Office Visit Family Medicine [address] [place] [phone] Zenobia Lyon MD [address] [place] [address] [place] [address] 03/07/2024 1:00 PM EDT Office Visit Cardiology [address] [place] [address] Chris Choudhury PA-C [address] [place] [address] Scheduled Procedures Name Priority Associated Diagnoses Date/Ti [...] Additional history exists CKD PHOS USE SMARTSET 85148 07/25/202407/03, 09/07/2022, 09/05/2022, Additional history exists O2 ASSESSMENT COMPLETED IN PAST YEAR FOR COPD 09/29/2024 09/29/2023 CKD HGB USE SMARTSET 32217 10/11/202410/11, 10/11/2023, 10/05/2023, Additional history exists COLONOSCOPY-EVERY [...] this encounter Medical Devices Implanted Type Area Campaign Consultant Device Identifier Shelf Expiration Date Model / Serial / Lot Screw T2 Alpha Lock 5x47.5mm - [id number] Implanted:Qty: 1 on 09/06/2022 by Sean Silva MD at [place] [facility] Left: Leg Upper RICHELLE : TRAUMA 06/01/2032 [id number] / / [id number] documented as of this encounter Advance Directives Documents on File Type Date Recorded Patient Waste Recycler Expl anation POLST 10/17/2022 [place] DERS [...] Agen t (per Health Care Power of Personal Health Coach document) Reji Tello Dotts Adult Child First Alterna te Health Care Agent (per Health Care Power of Personal Health Coach document) Bowen Tello Adult Child First Alternate Health Care Agent (per Health Care Power of Personal Health Coach document) Care Teams Skidder Lever Operator Relationship Specialty Start Date End Date Zenobia Lyon MD [address] [place] [address] [place] [address] PCP - General Family Medicine 05/22/23 documented as of this encounter
--- OUTSIDE RECORDS SUMMARY | 2023-11-09 04:54 | External Medical Summary | Summary of Care ---
Author Name Unknown Organization [facility] Address [address] [facility] [address] Phone [phone] Care Team Providers Care Venetian Blind Cleaner And Repairer Name Role Phone Zenobia Lyon MD Primary Care Provide r Reason for Visit * Reason Onset Date Comments [facility]: Maintenance 10/22/2023 Encounter Details Date Type Department Care Team (Late st Contact Info) Description 10/22/2023 9:30 AM EST Scheduled Telephone [facility], [facility] [address] [facility] [place] [address] [facility], Nurse [facility] [address] [facility] [place] [address] Allergies Active Allergy Reactions Criticality Noted Date Comments James Inhibitors 09/10/2002 cough on prinivil Hydrocodone 09/05/2022 Family states AMS change when taken Prednisone 05/26/2011 Blisters in throat Sulfa Antibiotics 03/19/2001 dysurea documented as of this encounter (statuses as of 10/22/2023) Medications Medication Sig Dispensed Refills Start Date [...] Tablet (pLAVix)Indications: Atherosclerosis of [place] coronary artery of [place] heart without angina pectoris Take 1 Tablet [...] 90 Tablet 0 09/18/2023 Active Saline Nasal [place] 0.65 % Nasal Solution (Saline Mist [place]) Use 2 sprays into Nostril every 1 hour as needed for dry nasal passages 44 mL 0 09/27/2023 Active documented as of this encounter (statuses as of 10/22/2023) Active Problems Patient Care Coordination No te [...] Assessment & Plan: BP at goal -Continue coenedelia norvasc Asthma, moderate persistent 07/12/2011 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 erectile dysfunction 08/19/2008 BPH without obstruction/lower urinary tract symp toms 04/24/2006 Last Assessment & Plan: Urinating without difficulty -Continue [place]teride Elevated prostate specific antigen (PSA) 004 CORONARY ATHEROSCLEROSIS OF UNSPECIFIED TYPE OF VESSEL, [place] OR GRAFT Last Assessment & Plan: Stable. 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 documented as of this encounter (statuses as of 10/22/2023) Resolved Problems Problem Noted Date Diagnosed Date [...] glenn ek & Lt. leg ; Rt. latter-day 07/0207/18/2002 07/15/2015 Dyslipidemia, goal to [...] as of this encounter (statuses as of 10/22/2023) Immunizations Name Administration Dates Next Due COVID-19 [...] encounter Miscellaneous Notes * Telephone Encounter - Laura Adrian RN - 10/22/2023 2:28 PM EST [facility] Telephonic Nurse Follow-Up Call [facility] Subprogram: Primary Care at Home Follow Up Call Type: Weekend Call Acute issue requiring follow-up call: Other: [facility] hospital D/C for UTI Objective: 10/05/2023 10:18 AM 09/29/2023 10:33 AM 09/08/2023 9:17 AM 08/29/2023 3:28 PM 08/28/2023 10:55 AM VITALS ACROSS ENCOUNTERS BP 128/58 134/58 178/78 Pulse 72 80 70 Weight 88.9 kg 91.8 kg 91.1 kg BMI 27.35 28.23 BMI 27.35 kg/m2 28.22 kg/m2 28.01 kg/m2 Lab Results Component Value Date PROTEIN - [facility] 8.5 (H) 10/05/2023 WBC AUTO - [facility] 4.93 10/11/2023 Lab Results Component Value Date WBC AUTO - [facility] 4.93 10/11/2023 HGB - [facility] 7.1 (L) 10/11/2023 PLATELET AUTO - [facility] 207 10/11/2023 Lab Results Component Value Date SODIUM - [facility] 143 10/05/2023 POTASSIUM - [facility] 4.2 10/05/2023 MAGNESIUM - [facility] 2.2 07/25/2023 CO2 - [facility] 24 10/05/2023 CREATININE - [facility] 1.8 (H) 10/05/2023 ESTIMATED GLOMERULAR FILTRATION RATE - [facility] 37 (L) 10/05/2023 ALBUMIN - [facility] 2.9 (L) 10/05/2023 AST - [facility] 9 (L) 10/05/2023 ALT - [facility] <5 (L) 10/05/2023 ALKALINE PHOSPHATASE - [facility] 38 10/05/2023 No results found for: "PRO BNP", "LEFT VENTRICULAR EJECTION FRACTION" Remote Patient Monitoring: NONE Oxygen Needs: NO supplemental oxygen needs identified DME Needs: NO DME needs identified Medications: New medication(s) added: IV antibiotic Subjective: Condition Status: Improvement in symptoms but not at baseline Current Concerns: Spoke with spouse who reports Marshall is doing really well, has 2 more doses of IV abx that family is administering then [facility] will take out his PICC line, Spouse states he is taking a nap at the moment. Disposition: Issue resolved. All appropriate follow up scheduled. Future Visits Scheduled: Future Appointments-next 60 days Date/Time Provider Specialty Dept Phone 10/25/2023 9:20 AM [facility] Mobile Home Draw Laboratory Processing [phone] 10/26/2023 11:00 AM (Arrive by 10:45 AM) [facility] Cardiology [phone] 10/30/2023 5:00 PM (Arrive by 4:45 PM) Sherron Lyles MD Family Medicine [phone] 11/01/2023 9:10 AM [facility] [place] Mobile Home Draw Laboratory Processing [phone] 11/01/2023 9:20 AM [facility] [place] Mobile Home Draw Laboratory Processing [phone] 11/03/2023 10:45 AM (Arrive by 10:30 AM) Pietro Sykes MD Hematology Oncology [phone] 11/08/2023 9:20 AM [facility] Mobile Home Draw Laboratory Processing [phone] 11/13/2023 10:00 AM Lila Brownlee, RN [facility] [phone] 11/15/2023 9:10 AM [facility] Mobile Home Draw Laboratory Processing [phone] 11/15/2023 9:20 AM [facility] Mobile Home Draw Laboratory Processing [phone] 11/29/2023 9:10 AM [facility] Mobile Home Draw Laboratory Processing [phone] 12/13/2023 9:10 AM [facility] Mobile Home Draw Laboratory Processing [phone] 01/04/2024 10:20 AM (Arrive by 10:05 AM) Kasi Tejeda PA-C Otolaryngology [phone] 01/26/2024 11:20 AM (Arrive by 11:05 AM) Zenobia Lyon MD Family Medicine [phone] 03/07/2024 1:00 PM (Arrive by 12:45 PM) Chris Choudhury PA-C Cardiology [phone] Laura Adrian, SANKET documented in this encounter Plan of Treatment Upcoming Encounters Date Type Department Care Team (Late st Contact Info) Description 10/25/2023 9:20 AM EST Laboratory Lab Mobile Phlebotomy [facility] [address] [place] [address] [facility] Mobile Home Draw [address] [facility] [place] [address] 10/26/2023 11:00 AM EST Cardiac Studies Cardiology [address] [place] [address] Yasmineallbere, Pacer [address] [place] [address] 10/30/2023 5:00 PM EST Office Visit Family [address] [place] [phone] Sherron Lyles MD [address] [place] [address] [place] [address] 11/01/2023 9:10 AM EST Laboratory Lab Mobile Phlebotomy [facility] [address] [place] [address] [facility] Mobile Home Draw [address] [place] [address] 11/01/2023 9:20 AM EST Laboratory Lab Mobile Phlebotomy [facility] [address] [place] [address] [facility] Mobile Home Draw [address] [place] [address] 11/03/2023 10:45 AM EST Office Visit Hematology/Oncology [facility] [address] [facility] [place] [address] Pietro Sykes MD [address] [facility] [place] [address] 11/08/2023 9:20 AM EST Laboratory Lab Mobile Phlebotomy [facility] [address] [place] [address] [facility] [place] Mobile Home Draw [address] [place] [address] 11/13/2023 10:00 AM EST [facility] Visit [facility] [place], [facility] [address] [place] [address] Lila Brownlee, SANKET [address] [place] [address] 11/15/2023 9:10 AM EST Laboratory Lab Mobile Phlebotomy [facility] [address] [place] [address] [facility] [place] Mobile Home Draw [address] [place] [address] 11/15/2023 9:20 AM EST Laboratory Lab Mobile Phlebotomy [facility] [address] [place] [address] [facility] [place] Mobile Home Draw [address] [place] [address] 11/29/2023 9:10 AM EST Laboratory Lab Mobile Phlebotomy [facility] [address] [place] [address] [facility] Mobile Home Draw [address] [place] [address] 12/13/2023 9:10 AM EDT Laboratory Lab Mobile Phlebotomy [facility] [address] [place] [address] [facility] Mobile Home Draw [address] [place] [address] 01/04/2024 10:20 AM EDT Office Visit Otolaryngology [facility] [address] [place] [address] Kasi Tejeda PA-C [address] [place] [address] 01/26/2024 11:20 AM EDT Office Visit Family Medicine [address] [place] [phone] Zenobia Lyon MD [address] [place] [address] [place] [address] 03/07/2024 1:00 PM EDT Office Visit Cardiology [address] [place] [address] Chris Choudhury PA-C [address] [place] [address] Scheduled Procedures Name Priority Associated Diagnoses Date/Ti [...] Additional history exists CKD PHOS USE SMARTSET 02005 07/25/202407/03, 09/07/2022, 09/05/2022, Additional history exists O2 ASSESSMENT COMPLETED IN PAST YEAR FOR COPD 09/29/2024 09/29/2023 CKD HGB USE SMARTSET 93969 10/11/202410/11, 10/11/2023, 10/05/2023, Additional history exists COLONOSCOPY-EVERY [...] this encounter Medical Devices Implanted Type Area Heavy Rail Train Operator Device Identifier Shelf Expiration Date Model / Serial / Lot Screw T2 Alpha Lock 5x47.5mm - [id number] Implanted:Qty: 1 on 09/06/2022 by Sean Silva MD at [facility] Left: Leg Upper RICHELLE : TRAUMA 06/01/2032 [id number] / / [id number] documented as of this encounter Advance Directives Documents on File Type Date Recorded Patient Buhr Dresser Expl anation POLST 10/17/2022 [place] DERS [...] Code 09/06/2022 7:56 PM 09/10/2022 9:04 AM Thi s order reflects the patients wishes [...] Agen t (per Health Care Power of Log Washer document) Reji Tello Dotts Adult Child First Alterna te Health Care Agent (per Health Care Power of Log Washer document) Bowen Tello Adult Child First Alternate Health Care Agent (per Health Care Power of Log Washer document) Care Teams Venetian Blind Cleaner And Repairer Relationship Specialty Start Date End Date Zenobia Lyon MD [address] [place] [address] [place] [phone] PCP - General Family Medicine 05/22/23 documented as of this encounter
--- OUTSIDE RECORDS SUMMARY | 2023-11-09 04:54 | External Medical Summary | Summary of Care ---
Author Name Unknown Organization [facility] Address [address] [place] [address] Phone [phone] Care Team Providers Care Dock Associate Name Role Phone Zenobia Lyon MD Primary Care Provide r Reason for Visit * Reason Onset Date Comments Advice 10/20/2023 Encounter Details Date Type Department Care Team (Late st Contact Info) Description 10/20/2023 Telephone Family [address] [phone] Zenobia Lyon MD [address] [place] [address] [place] [address] Advice Allergies Active Allergy Reactions Criticality Noted Date Comments James Inhibitors 09/10/2002 cough on prinivil Hydrocodone 09/05/2022 Family states AMS change when taken Prednisone 05/26/2011 Blisters in throat Sulfa Antibiotics 03/19/2001 dysurea documented as of this encounter (statuses as of 10/20/2023) Medications Medication Sig Dispensed Refills Start Date [...] Oral Tablet (pLAVix)Indications: Atherosclerosis of [place] coronary artery of [place] heart without angina pectoris Take 1 [...] 90 Tablet 0 09/18/2023 Active Saline Nasal Wiley 0.65 % Nasal Solution (Saline Mist Wiley) Use 2 sprays into Nostril every 1 hour as needed for dry nasal passages 44 mL 0 09/27/2023 Active documented as of this encounter (statuses as of 10/20/2023) Active Problems Patient Care Coordination No te [...] CORONARY ATHEROSCLEROSIS OF UNSPECIFIED TYPE OF VESSEL, [place] OR GRAFT Last Assessment & Plan: Stable. 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 documented as of this encounter (statuses as of 10/20/2023) Resolved Problems Problem Noted Date Diagnosed Date [...] as of this encounter (statuses as of 10/20/2023) Immunizations Name Administration Dates Next Due COVID-19 [...] discharge summary not available. Patient admitted at [facility] 10/14/23- 10/20/23 with acute UTI, anemia. [...] home IV antibiotics. Was a Pt at [facility] Please call Remedios back at [phone] documented in this encounter Plan of Treatment Upcoming Encounters Date Type Department Care Team (Late st Contact Info) Description 10/22/2023 9:30 AM EST Scheduled Telephone [facility], [facility] [address] [facility] [place] [address] [facility], Nurse [facility] [address] [facility] [place] [address] 10/25/2023 9:20 AM EST Laboratory Lab Mobile Phlebotomy [facility] [address] [place] [address] [facility], [facility] Mobile Home Draw [address] [place] [address] 10/26/2023 11:00 AM EST Cardiac Studies Cardiology [address] [place] [address] [place], Pacer Clinic [facility] [address] [place] [address] 10/30/2023 5:00 PM EST Office Visit Family Medicine [address] [place] [phone] Sherron Lyles MD [address] [place] [address] [place] [address] 11/01/2023 9:10 AM EST Laboratory Lab Mobile Phlebotomy [facility] [address] [place] [address] [facility], [facility] Mobile Home Draw [address] [place] [address] 11/01/2023 9:20 AM EST Laboratory Lab Mobile Phlebotomy [facility] [address] [place] [address] [facility], [facility] Mobile Home Draw [address] [place] [address] 11/03/2023 10:45 AM EST Office Visit Hematology/Oncology [facility] [place] [address] [facility] [place] [address] Pietro Sykes MD [address] [facility] [place] [address] 11/08/2023 9:20 AM EST Laboratory Lab Mobile Phlebotomy [facility] [address] [place] [address] [facility], [facility] Mobile Home Draw [address] [place] [address] 11/13/2023 10:00 AM EST Home Visit isinger at [facility] [address] [place] [address] Lila Brownlee RN [address] [place] [address] 11/15/2023 9:10 AM EST Laboratory Lab Mobile Phlebotomy [facility] [address] [place] [address] [facility], [facility] Mobile Home Draw [address] [place] [address] 11/15/2023 9:20 AM EST Laboratory Lab Mobile Phlebotomy [facility] [address] [place] [address] [facility], [facility] Mobile Home Draw [address] [place] [address] 11/29/2023 9:10 AM EST Laboratory Lab Mobile Phlebotomy [facility] [address] [place] [address] [facility], [facility] Mobile Home Draw [address] [place] [address] 12/13/2023 9:10 AM EDT Laboratory Lab Mobile Phlebotomy [facility] [address] [place] [address] [facility], [facility] Mobile Home Draw [address] [place] [address] 01/04/2024 10:20 AM EDT Office Visit Otolaryngology [facility] [address] [place] [address] Kasi Tejeda PA-C [address] [place] [address] 01/26/2024 11:20 AM EDT Office Visit Family Medicine [address] [place] [phone] Zenobia Lyon MD [address] [place] [address] [place] [address] 03/07/2024 1:00 PM EDT Office Visit Cardiology [address] [place] [address] Chris Choudhury PA-C [address] [place] [address] Scheduled Procedures Name Priority Associated Diagnoses Date/Ti [...] Additional history exists CKD PHOS USE SMARTSET 07957 07/25/202407/03, 09/07/2022, 09/05/2022, Additional history exists O2 ASSESSMENT COMPLETED IN PAST YEAR FOR COPD 09/29/2024 09/29/2023 CKD HGB USE SMARTSET 78663 10/11/202410/11, 10/11/2023, 10/05/2023, Additional history exists COLONOSCOPY-EVERY [...] this encounter Medical Devices Implanted Type Area Icer Machine Device Identifier Shelf Expiration Date Model / Serial / Lot Screw T2 Alpha Lock 5x47.5mm - [id number] Implanted:Qty: 1 on 09/06/2022 by Sean Silva MD at OR [facility] Left: Leg Upper RICHELLE : TRAUMA 06/01/2032 [id number] / / [id number] documented as of this encounter Advance Directives Documents on File Type Date Recorded Patient Filter Assembler Expl anation POLST 10/17/2022 [place] DERS [...] t (per Health Care Power of Supervisor [place] document) Reji Tello Dotts Adult Child First Alterna te Health Care Agent (per Health Care Power of Supervisor [place] document) Bowen Tello Adult Child First Alternate Health Care Agent (per Health Care Power of Supervisor [place] document) Care Teams Dock Associate Relationship Specialty Start Date End Date Zenobia Lyon MD [address] [place] [address] [place] [address] PCP - General Family Medicine 05/22/23 documented as of this encounter
--- OUTSIDE RECORDS SUMMARY | 2023-11-09 04:54 | External Medical Summary | Summary of Care ---
Author Name Unknown Organization [facility] Address [address] [place] [address] Phone [phone] Care Team Providers Care Manufacturing Lab Technician Name Role Phone Zenobia Lyon MD Primary Care Provide r Reason for Visit * Reason Onset Date Comments Appointment 10/23/2023 Encounter Details Date Type Department Care Team (Late st Contact Info) Description 10/23/2023 Telephone [facility], [place] [address] [place] [address] Services, Scheduling [address] [place] [address] Appointment Allergies Active Allergy Reactions Criticality Noted Date [...] 75 MG Oral Tablet (pLAVix)Indications: Atherosclerosis of [place] coronary artery of [place] heart without angina pectoris Take 1 Tablet [...] without hematuria 05/30/2022 01/24/2023 Overview: [facility] to [facility] 04/20-04/29 urosepsis multi drug resistant E. Coli [...] MCG/0.3 mL, 12 YRS AND ABOVE, IM [facility] 07/19/2023 Covid-19, Mrna, Lnp-s, Pf, B ivalent, [...] encounter Miscellaneous Notes * Telephone Encounter - Ginger Mitchell OSA - 10/23/2023 1:08 PM EST Request to set up PA visit, spoke with spouse and set up for Fri. 10/27 at 11, pt agreeable. documented in this encounter Plan of Treatment Upcoming Encounters Date Type Department Care Team (Late st Contact Info) Description 10/25/2023 9:20 AM EST Laboratory Lab Mobile Phlebotomy [facility] [address] [place] [address] [facility], [facility] Mobile Home Draw [address] [place] [address] 10/26/2023 11:00 AM EST Cardiac Studies Cardiology [address] [place] [address] [place] [address] [place] [address] 10/27/2023 11:00 AM EST Home Visit [facility], [facility] 132 [facility] [place] [address] Brennen Kay PA-C 132 [facility] [place] [address] 10/30/2023 5:00 PM EST Office Visit [address] [place] [address] Sherron Lyles MD [address] [place] [address] [place] [address] 11/01/2023 9:10 AM EST Laboratory Lab Mobile Phlebotomy [facility] [address] [place] [address] Gm, [facility] Mobile Home Draw [address] [place] [address] 11/01/2023 9:20 AM EST Laboratory Lab Mobile Phlebotomy [facility] [address] [place] [address] Gm, G[facility] Mobile Home Draw [address] [place] [address] 11/03/2023 10:45 AM EST Office Visit Hematology/Oncology [facility] [address] [facility] [place] [address] Pietro Sykes MD [address] [facility] [place] [address] 11/08/2023 9:20 AM EST Laboratory Lab Mobile Phlebotomy [facility] [address] [place] [address] [facility], [facility] Mobile Home Draw [address] [place], [place] [address] 11/13/2023 10:00 AM EST [facility] Visit [facility], [facility] [place] [address] Lila Brownlee, SANKET [address] [address] 11/15/2023 9:10 AM EST Laboratory Lab Mobile Phlebotomy C [address] [place] [address] [facility], [facility] Mobile Home Draw [address] [place] [address] 11/15/2023 9:20 AM EST Laboratory Lab Mobile Phlebotomy [facility] [address] [place] [address] [facility], [facility] Mobile Home Draw [address] [place] [address] 11/29/2023 9:10 AM EST Laboratory Lab Mobile Phlebotomy [facility] [address] [place] [address] [facility], [facility] Mobile Home Draw [address] [place] [address] 12/13/2023 9:10 AM EDT Laboratory Lab Mobile Phlebotomy [facility] [address] [place] [address] Gm, Gml Mobile Home Draw [address] [place] [address] 01/04/2024 10:20 AM EDT Office Visit Otolaryngology [facility] [address] [place] [address] Kasi Tejeda PA-C [address] [place] [address] 01/26/2024 11:20 AM EDT Office Visit Family Medicine [address] [place] [phone] Zenobia Lyon MD [address] [place] [address] [place] [address] 03/07/2024 1:00 PM EDT Office Visit Cardiology [address] [place] [address] Chris Choudhury PA-C [address] [place] [address] Scheduled Procedures Name Priority Associated Diagnoses Date/Ti [...] Additional history exists CKD PHOS USE SMARTSET 06939 07/25/202407/03, 09/07/2022, 09/05/2022, Additional history exists O2 ASSESSMENT COMPLETED IN PAST YEAR FOR COPD 09/29/2024 09/29/2023 CKD HGB USE SMARTSET 03536 10/11/202410/11, 10/11/2023, 10/05/2023, Additional history exists COLONOSCOPY-EVERY [...] this encounter Medical Devices Implanted Type Area Shell Maker Lockstitch Device Identifier Shelf Expiration Date Model / Serial / Lot Screw T2 Alpha Lock 5x47.5mm - [id number] Implanted:Qty: 1 on 09/06/2022 by Sean Silva MD at [facility] Left: Leg Upper RICHELLE : TRAUMA 06/01/2032 [id number] / / [id number] documented as of this encounter Advance Directives Documents on File Type Date Recorded Patient Manual Tester Expl anation POLST 10/17/2022 [place] OR DERS FOR LIFE-SUSTAINING TREATMENT POLST 09/10/2022 [place] OR DERS FOR LIFE-SUSTAINING TREATMENT Latest Code [...] Agen t (per Health Care Power of Sheriff document) Reji Leobardo Dotts Adult Child First Alterna te Health Care Agent (per Health Care Power of Sheriff document) Bowen Leobardo Adult Child First Alternate Health Care Agent (per Health Care Power of Sheriff document) Care Teams Manufacturing Lab Technician Relationship Specialty Start Date End Date Zenobia Lyon MD [address] [place] [address] [place] [phone] PCP - General Family Medicine 05/22/23 documented as of this encounter
--- OUTSIDE RECORDS SUMMARY | 2023-11-09 04:54 | External Medical Summary | Summary of Care ---
Author Name Unknown Organization [facility] Address [address] [place] [address] Phone [phone] Care Team Providers Care Cylinder Die Machine Operator Name Role Phone Zenobia Lyon MD Primary Care Provide r Reason for Visit * Reason Onset Date Comments Hospital Follow-Up 07/21/2023 Encounter Details Date Type Department Care Team (Late st Contact Info) Description 07/21/2023 Telephone General Internal Medicine [facility] [place] [address] [facility] [place] [address] Zenobia Lyon MD [address] [place] [address] [place] [address] Hospital Follow-Up Allergies Active Allergy Reactions Criticality Noted Date [...] control in clinical research program 03/25/2015 Overview: [employer] Product Surveillance Registry PI: Kylah Lilly IV, [...] CORONARY ATHEROSCLEROSIS OF UNSPECIFIED TYPE OF VESSEL, [place] OR GRAFT Last Assessment & Plan: Stable. [...] protocol Hypertensive heart disease with heart failure 12/25/1922 0505/13/2022 Overview: more specific combo Chronic kidney disease, [...] encounter Miscellaneous Notes * Telephone Encounter - Toi Fowler RN - 07/21/2023 3:13 PM EDT Patient discharged to home today from [facility] after treatment for anemia, shortness of breath. Attending felt likely a CHF exacerbation, and added every other day lasix in addition to prior lasix. Thankyou documented in this encounter Plan of Treatment Upcoming Encounters Date Type Department Care Team (Late st Contact Info) Description 10/22/2023 9:30 AM EST Scheduled Telephone [facility] [place], [facility] [address] [place] [address] [facility], Nurse [facility] 132 [facility] [place] [address] 10/25/2023 9:20 AM EST Laboratory Lab Mobile Phlebotomy [facility] [address] [place] [address] [facility], [facility] Mobile Home Draw [address] [place] [address] 10/26/2023 11:00 AM EST Cardiac Studies Cardiology [address] [place] [address] Lobito Croft [facility] [address] [place] [address] 10/30/2023 5:00 PM EST Office Visit Family Medicine [address] [place] [phone] Sherron Lyles MD [address] [place] [address] [place] [address] 11/01/2023 9:10 AM EST Laboratory Lab Mobile Phlebotomy [facility] [address] [place] [address] Gm, Gml Mobile Home Draw [address] [place] [address] 11/01/2023 9:20 AM EST Laboratory Lab Mobile Phlebotomy [facility] [address] [place] [address] Gm, Gml Mobile Home Draw [address] [place] [address] 11/03/2023 10:45 AM EST Office Visit Hematology/Oncology [facility] [address] [place] [address] Pietro Sykes MD [address] [place] [address] 11/08/2023 9:20 AM EST Laboratory Lab Mobile Phlebotomy [facility] [address] [place] [address] [facility], [facility] Mobile Home Draw [address] [place] [address] 11/13/2023 10:00 AM EST Home Visit isinger at [facility] 132 [place] [address] Lila Brownlee, SANKET [address] [place] [address] 11/15/2023 9:10 AM EST Laboratory Lab Mobile Phlebotomy [facility] [address] [place] [address] [facility], [facility] Mobile Home Draw [address] [place] [address] 11/15/2023 9:20 AM EST Laboratory Lab Mobile Phlebotomy [facility] [address] [place] [address] [facility] Mobile Home Draw [address] [place] [address] 11/29/2023 9:10 AM EST Laboratory Lab Mobile Phlebotomy [facility] [address] [place] [address] [facility], [facility] Mobile Home Draw [address] [place] [address] 12/13/2023 9:10 AM EDT Laboratory Lab Mobile Phlebotomy [facility] [address] [place] [address] [facility], [facility] Mobile Home Draw [address] [place] [address] 01/04/2024 10:20 AM EDT Office Visit Otolaryngology [facility] [address] [place] [address] Kasi Tejeda PA-C [address] [place] [address] 01/26/2024 11:20 AM EDT Office Visit Family Medicine [address] [place] [address] Zenobia Lyon MD [address] [place] [address] [place] [address] 03/07/2024 1:00 PM EDT Office Visit Cardiology [address] [place] [address] Chris Choudhury PA-C [address] [place] [address] Scheduled Procedures Name Priority Associated Diagnoses Date/Ti [...] Additional history exists CKD PHOS USE SMARTSET 45282 07/25/202407/03, 09/07/2022, 09/05/2022, Additional history exists O2 ASSESSMENT COMPLETED IN PAST YEAR FOR COPD 09/29/2024 09/29/2023 CKD HGB USE SMARTSET 00802 10/11/202410/11, 10/11/2023, 10/05/2023, Additional history exists COLONOSCOPY-EVERY [...] this encounter Medical Devices Implanted Type Area Supervisory Cbp Officer Device Identifier Shelf Expiration Date Model / Serial / Lot Screw T2 Alpha Lock 5x47.5mm - [id number] Implanted:Qty: 1 on 09/06/2022 by Sean Silva MD at [facility] Left: Leg Upper RICHELLE : TRAUMA 06/01/2032 [id number] / / [id number] documented as of this encounter Advance Directives Documents on File Type Date Recorded Patient Forepart Reducer Expl anation POLST 10/17/2022 [place] OR DERS FOR LIFE-SUSTAINING TREATMENT POLST 09/10/2022 [place] OR DERS FOR LIFE-SUSTAINING TREATMENT Latest Code [...] Agen t (per Health Care Power of Cadastral Engineer document) Reji Tello Neil Adult Child First Alterna te Health Care Agent (per Health Care Power of Cadastral Engineer document) Bowen Tello Adult Child First Alternate Health Care Agent (per Health Care Power of Cadastral Engineer document) Care Teams Cylinder Die Machine Operator Relationship Specialty Start Date End Date Zenobia Lyon MD [address] [place] [address] [place] [address] PCP - General Family Medicine 05/22/23 documented as of this encounter
--- OUTSIDE RECORDS SUMMARY | 2023-11-09 04:55 | External Medical Summary | Summary of Care ---
Author Name Unknown Organization [facility] Address [address] [place] [facility] [place] [address] Phone [phone] Care Team Providers Care Vault Installer Name Role Phone Zenobia Lyon MD Primary Care Provide r Reason for Visit * Reason Onset Date Comments [facility]: Maintenance 10/20/2023 Encounter Details Date Type Department Care Team (Late st Contact Info) Description 10/20/2023 Telephone [facility], [facility] [address] [facility] [place] [address] [facility], Nurse [facility] [address] [facility] [place] [address] [facility]: Maintenance Allergies Active Allergy [...] 75 MG Oral Tablet (pLAVix)Indications: Atherosclerosis of [place] coronary artery of [place] heart without angina pectoris Take 1 Tablet [...] 90 Tablet 0 09/18/2023 Active Saline Nasal [place] 0.65 % Nasal Solution (Saline Mist [place]) Use 2 sprays into Nostril every 1 [...] CORONARY ATHEROSCLEROSIS OF UNSPECIFIED TYPE OF VESSEL, [place] OR GRAFT Last Assessment & Plan: Stable. [...] 05/30/2022 01/24/2023 Overview: Xavier to [facility] 04/20-04/29 [...] Telephone Encounter - Simran Murillo RN - 10/20/2023 1:35 PM EST PC from patient spouse states patient D/C from [facility] today and is home Patient was admitted for UTI [facility] arranged by hospital for IV ABX per spouse but she has not heard from them yet + PICC ADOLFO per spouse Weekend calls placed Scheduling please set up TOCs thanks Simran Murillo RN, BSN [facility] decal makerHead Pastry Chef documented in this encounter Plan of Treatment Upcoming Encounters Date Type Department Care Team (Late st Contact Info) Description 10/22/2023 9:30 AM EST Scheduled Telephone [facility], [facility] 132 [facility] [place] [address] [facility], Nurse [address] [place] [address] 10/25/2023 9:20 AM EST Laboratory Lab [facility] [address] [place] [address] Gmc, Gml Mobile Home Draw [address] [place] [address] 10/26/2023 11:00 AM EST Cardiac Studies Cardiology [address] [place] [address] Nick Croftr [address] [address] 10/30/2023 5:00 PM EST Office Visit Family Medicine [address] [place] [phone] Sherron Lyles MD [address] [place] [address] [place] [address] 11/01/2023 9:10 AM EST Laboratory [facility] [address] [place] [address] Gmc, Gml Mobile Home Draw [address] [place] [address] 11/01/2023 9:20 AM EST Laboratory Lab [facility] [address] [place] [address] Gmc, Gml Mobile Home Draw [address] [place] [address] 11/03/2023 10:45 AM EST Office Visit Hematology/Oncology [facility] Nga [place] 200 [facility] [place] [address] Pietro Sykes MD [address] [place] [address] 11/08/2023 9:20 AM EST Laboratory [facility] [address] [place] [address] Gmc, Gml Mobile Home Draw [address] [place] [address] 11/13/2023 10:00 AM EST Home Visit [facility] at [facility] 132 [place] [address] Lila Brownlee, SANKET 132 [place] [address] 11/15/2023 9:10 AM EST Laboratory Lab Mobile Phlebotomy [facility] [address] [place] [address] [facility], Gm Mobile Home Draw [address] [place] [address] 11/15/2023 9:20 AM EST Laboratory Lab Mobile Phlebotomy [facility] [address] [place] [address] [facility], [facility] Mobile Home Draw [address] [place] [address] 11/29/2023 9:10 AM EST Laboratory Lab Mobile Phlebotomy [facility] [address] [place] [address] [facility], Gm Mobile Home Draw [address] [place] [address] 12/13/2023 9:10 AM EDT Laboratory Lab Mobile Phlebotomy [facility] [address] [place] [address] [facility], [facility] Mobile Home Draw [address] [place] [address] 01/04/2024 10:20 AM EDT Office Visit Otolaryngology [facility] [address] [facility] [place] [address] Kasi Tejeda PA-C [address] [facility] [place] [address] 01/26/2024 11:20 AM EDT Office Visit Family Medicine [address] [place] [phone] Zenobia Lyon MD [address] [place] [address] [place] [address] 03/07/2024 1:00 PM EDT Office Visit Cardiology [address] [place] [address] Chris Choudhury PA-C [address] [place] [address] Scheduled Procedures Name Priority Associated Diagnoses Date/Ti [...] Additional history exists CKD PHOS USE SMARTSET 38929 07/25/2024 102 12/2022, 09/07/2022, 09/05/2022, Additional history exists O2 ASSESSMENT COMPLETED IN PAST YEAR FOR COPD 09/29/2024 09/29/2023 CKD HGB USE SMARTSET 21154 10/11/202410/11, 10/11/2023, 10/05/2023, Additional history exists COLONOSCOPY-EVERY [...] this encounter Medical Devices Implanted Type Area Cone Picker Device Identifier Shelf Expiration Date Model / Serial / Lot Screw T2 Alpha Lock 5x47.5mm - [id number] Implanted:Qty: 1 on 09/06/2022 by Sean Silva MD at [facility] Left: Leg Upper RICHELLE : TRAUMA 06/01/2032 [id number] / / [id number] documented as of this encounter Advance Directives Documents on File Type Date Recorded Patient Django Developer Expl anation POLST 10/17/2022 [place] OR DERS [...] Agen t (per Health Care Power of Ferryboat Pilot document) Reji Omer Dotts Adult Child First Alterna te Health Care Agent (per Health Care Power of Ferryboat Pilot document) Bowen Tello Adult Child First Alternate Health Care Agent (per Health Care Power of Ferryboat Pilot document) Care Teams Vault Installer Relationship Specialty Start Date End Date Zenobia Lyon MD [address] [place] [address] [place] Vasquez [phone] PCP - General Family Medicine 05/22/23 documented as of this encounter
--- OUTSIDE RECORDS SUMMARY | 2023-11-09 04:55 | External Medical Summary | Summary of Care ---
Author Name Unknown Organization [facility] Address [address] [place] [address] Phone [phone] Care Team Providers Care Director Smb Sales Name Role Phone Zenobia Lyon MD Primary Care Provide r Reason for Visit * Reason Onset Date Comments [facility]: Maintenance 10/17/2023 Encounter Details Date Type Department Care Team (Late st Contact Info) Description 10/17/2023 Telephone [facility], [facility] [address] [place] [address] [facility], Nurse [address] [place] [address] [facility]: Maintenance Allergies Active Allergy Reactions Criticality Noted Date Comments James Inhibitors 09/10/2002 cough on prinivil Hydrocodone 09/05/2022 Family states AMS change when taken Prednisone 05/26/2011 Blisters in throat Sulfa Antibiotics 03/19/2001 dysurea documented as of this encounter (statuses as of 10/17/2023) Medications Medication Sig Dispensed Refills Start Date [...] 75 MG Oral Tablet (pLAVix)Indications: Atherosclerosis of [place] coronary artery of [place] heart without angina pectoris Take 1 Tablet [...] 90 Tablet 0 09/18/2023 Active Saline Nasal [place] 0.65 % Nasal Solution (Saline Mist [place]) Use 2 sprays into Nostril every 1 hour as needed for dry nasal passages 44 mL 0 09/27/2023 Active documented as of this encounter (statuses as of 10/17/2023) Active Problems Patient Care Coordination No te [...] as of this encounter (statuses as of 10/17/2023) Resolved Problems Problem Noted Date Diagnosed Date [...] as of this encounter (statuses as of 10/17/2023) Immunizations Name Administration Dates Next Due COVID-19 [...] Telephone Encounter - Portia Yu RN - 10/17/2023 2:59 PM EST Received call from pt's who states that the pt remains hospitalized and he is scheduled to have mobile phlebotomy tomorrow which needs to be canceled. Advised that this senior network security engineer will call mobile phlebotomy and make them aware. Outgoing call to Tanya with mobile phlebotomy and requested to cancel tomorrow's appt as the pt isin the hospital. Tanya states that she did cancel same as requested. Portia SNOW, RN [facility] Intake Triage Coordinator [phone] documented in this encounter Plan of Treatment Upcoming Encounters Date Type Department Care Team (Late st Contact Info) Description 10/18/2023 9:20 AM EST Laboratory Lab Mobile Phlebotomy [facility] [address] [place] [address] [facility], [facility] Mobile Home Draw [address] [place] [address] 10/18/2023 12:45 PM EST Scheduled Telephone [facility], [address] [place] [address] Coordinator, [place] [address] [address] [place] [address] 10/19/2023 10:45 AM EST Scheduled Telephone [facility], [address] [place]TH[place] [address] Coordinator, [place] [address] [facility] [place] [address] 10/19/2023 11:20 AM EST Office Visit Family Medicine [address] [place] [phone] Zenobia Lyon MD [address] [place] [address] [place] [address] 10/25/2023 9:20 AM EST Laboratory Lab Mobile Phlebotomy [facility] [address] [place] [address] [facility] Mobile Home Draw [address] [place] [address] 10/26/2023 11:00 AM EST Cardiac Studies Cardiology [address] [place] [address] [facility] 132 [facility] [place], [place] [address] 11/01/2023 9:10 AM EST Laboratory Lab Mobile Phlebotomy [facility] [address] [place] [address] [facility], [facility] Mobile Home Draw [address] [place] [address] 11/01/2023 9:20 AM EST Laboratory Lab [facility] [address] [place] [address] Gmc, Gml Mobile Home Draw [address] [place] [address] 11/03/2023 10:45 AM EST Office Visit Hematology/Oncology [facility] Nga [place] 200 [facility] [place] [address] Pietro Sykes MD 200 [facility] [place] [address] 11/08/2023 9:20 AM EST Laboratory Lab [facility] Phlebot[facility] [address] [place] [address] Gmc, Gml Mobile Home Draw [address] [place] [address] 11/13/2023 10:00 AM EST [facility] Visit [facility] 132 [place] [address] Lila Brownlee RN 132 [place] [address] 11/15/2023 9:10 AM EST Laboratory Lab [facility] Phlebot[facility] [address] [place] [address] Gmc, Gml Mobile Home Draw [address] [place] [address] 11/15/2023 9:20 AM EST Laboratory Lab [facility] Ph[facility] [address] [place] [address] Gmc, Gml Mobile Home Draw [address] [place] [address] 11/29/2023 9:10 AM EST Laboratory Lab [facility] Phle[facility] [address] [place] [address] Gmc, Gml Mobile Home Draw [address] [place] [address] 12/13/2023 9:10 AM EDT Laboratory Lab Mobile Phlebotomy [facility] [address] [place] [address] [facility], [facility] Mobile Home Draw [address] [place] [address] 01/04/2024 10:20 AM EDT Office Visit Otolaryngology [facility] [address] [place] [address] Kasi Tejeda PA-C [address] [place] [address] 01/26/2024 11:20 AM EDT Office Visit Family Medicine [address] [place] [phone] Zenobia Lyon MD [address] [place] [address] [place] [address] 03/07/2024 1:00 PM EDT Office Visit Cardiology [address] [place] [address] Chris Choudhury PA-C [address] [place] [address] Scheduled Procedures Name Priority Associated Diagnoses Date/Ti [...] Additional history exists CKD PHOS USE SMARTSET 58851 07/25/202407/03, 09/07/2022, 09/05/2022, Additional history exists O2 ASSESSMENT COMPLETED IN PAST YEAR FOR COPD 09/29/2024 09/29/2023 CKD HGB USE SMARTSET 34716 10/11/202410/11, 10/11/2023, 10/05/2023, Additional history exists COLONOSCOPY-EVERY [...] this encounter Medical Devices Implanted Type Area Spinning Machine Operator Device Identifier Shelf Expiration Date Model / Serial / Lot Screw T2 Alpha Lock 5x47.5mm - [id number] Implanted:Qty: 1 on 09/06/2022 by Sean Silva MD at OR [facility] Left: Leg Upper RICHELLE : TRAUMA 06/01/2032 [id number] / / [id number] documented as of this encounter Advance Directives Documents on File Type Date Recorded Patient Store Associate Expl anation POLST 10/17/2022 [place] OR DERS [...] Agen t (per Health Care Power of Audiovisual Equipment Operator document) Reji Tello Neil Adult Child First Alterna te Health Care Agent (per Health Care Power of Audiovisual Equipment Operator document) Bowen Tello Adult Child First Alternate Health Care Agent (per Health Care Power of Audiovisual Equipment Operator document) Care Teams Director Smb Sales Relationship Specialty Start Date End Date Zenobia Lyon MD [address] [place] [address] [place] Vasquez [phone] PCP - General Family Medicine 05/22/23 documented as of this encounter
--- OUTSIDE RECORDS SUMMARY | 2023-11-09 04:55 | External Medical Summary | Summary of Care ---
Author Name Unknown Organization [facility] Address [address] [facility] [address] Phone [phone] Care Team Providers Care Philosophy Faculty Name Role Phone Zenobia Lyon MD Primary Care Provide r Reason for Visit * Reason Onset Date Comments [facility]: Maintenance 10/19/2023 Encounter Details Date Type Department Care Team (Late st Contact Info) Description 10/19/2023 10:45 AM EST Scheduled Telephone [facility], [facility] [address] [place] [address] Coordinator, [facility] [address] [place] [address] Allergies Active Allergy Reactions Criticality Noted Date Comments James Inhibitors 09/10/2002 cough on prinivil Hydrocodone 09/05/2022 Family states AMS change when taken Prednisone 05/26/2011 Blisters in throat Sulfa Antibiotics 03/19/2001 dysurea documented as of this encounter (statuses as of 10/19/2023) Medications Medication Sig Dispensed Refills Start Date [...] 90 Tablet 0 09/18/2023 Active Saline Nasal [place] 0.65 % Nasal Solution (Saline Mist [place]) Use 2 sprays into Nostril every 1 hour as needed for dry nasal passages 44 mL 0 09/27/2023 Active documented as of this encounter (statuses as of 10/19/2023) Active Problems Patient Care Coordination No te [...] ATHEROSCLEROSIS OF UNSPECIFIED TYPE OF VESSEL, [place] OR GRAFT Last Assessment & Plan: Stable. 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 documented as of this encounter (statuses as of 10/19/2023) Resolved Problems Problem Noted Date Diagnosed Date [...] as of this encounter (statuses as of 10/19/2023) Immunizations Name Administration Dates Next Due COVID-19 [...] encounter Miscellaneous Notes * Telephone Encounter - Nelly Fajardo LPN - 10/19/2023 12:29 PM EST Added to hospital list to follow for discharge [facility] 10/19/2023,12:29 PM * Telephone Encounter - Dea Machado RN - 10/19/2023 11:06 AM EST [facility] Telephonic Nurse Follow-Up Call [facility] Subprogram: Primary Care at Home Follow Up Call Type: Routine follow up call / Status Check Acute issue requiring follow-up call: Other: F/u if pt is dicharged from [place] dx UTI Objective: 10/05/2023 10:18 AM 09/29/2023 10:33 [...] or dose adjustments made during acute episode Current Concerns: Spoke to spouse Remedios who reports patient is still admitted to [facility]. She states he is receiving IV antibiotics, unsure of discharge date at this time. She states she will call [facility] with discharge date when known. Routing to [facility] to follow for hospital discharge Disposition: Issue resolved. All appropriate follow up scheduled. Future Visits Scheduled: Future Appointments-next 60 days Date/Time Provider Specialty Dept Phone 10/25/2023 9:20 AM [facility], [facility] Mobile Home Draw Laboratory Processing [phone] 10/26/2023 11:00 AM (Arrive by 10:45 AM) [facility] Cardiology [phone] 11/01/2023 9:10 AM [facility], [facility] Mobile Home Draw Laboratory Processing [phone] 11/01/2023 9:20 AM [facility], G[facility] Mobile Home Draw Laboratory Processing [phone] 11/03/2023 10:45 AM (Arrive by 10:30 AM) Pietro Sykes MD Hematology Oncology [phone] 11/08/2023 9:20 AM [facility], Gml Mobile Home Draw Laboratory Processing [phone] 11/13/2023 10:00 AM Lila Brownlee RN [facility] [phone] 11/15/2023 9:10 AM [facility], Gml Mobile Home Draw Laboratory Processing [phone] 11/15/2023 9:20 AM [facility], Gml Mobile Home Draw Laboratory Processing [phone] 11/29/2023 9:10 AM [facility], Gml Mobile Home Draw Laboratory Processing [phone] 12/13/2023 9:10 AM [facility], Gml Mobile Home Draw Laboratory Processing [phone] 01/04/2024 10:20 AM (Arrive by 10:05 AM) Kasi Tejeda PA-C Otolaryngology [phone] 01/26/2024 11:20 AM (Arrive by 11:05 AM) Zenobia Lyon MD Family Medicine [phone] 03/07/2024 1:00 PM (Arrive by 12:45 PM) Chris Choudhury PA-C Cardiology [phone] Dea Machado RN documented in this encounter Plan of Treatment Upcoming Encounters Date Type Department Care Team (Late st Contact Info) Description 10/25/2023 9:20 AM EST Laboratory Lab Mobile Phlebotomy [facility] [address] [facility] [place] [address] [facility], Gm Mobile Home Draw [address] [place] [address] 10/26/2023 11:00 AM EST Cardiac Studies Cardiology [address] [place] [address] [facility] [address] [place] [address] 11/01/2023 9:10 AM EST Laboratory Lab Mobile Phlebotomy [facility] [address] [place] [address] [facility], Gm Mobile Home Draw [address] [place] [address] 11/01/2023 9:20 AM EST Laboratory Lab Mobile Phlebotomy [facility] [address] [place] [address] [facility], Gm Mobile Home Draw [address] [place] [address] 11/03/2023 10:45 AM EST Office Visit Hematology/Oncology [facility] [address] [place] [address] Pietro Sykes MD [address] [place] [address] 11/08/2023 9:20 AM EST Laboratory Lab Mobile Phlebotomy [facility] [address] [place] [address] [facility], [facility] Mobile Home Draw [address] [place] [address] 11/13/2023 10:00 AM EST [facility] Visit [facility] [place] 132 [facility] [place] [address] Lila Brownlee, SANKET 132 [facility] [place] [address] 11/15/2023 9:10 AM EST Laboratory Lab Mobile Phlebotomy [facility] [address] [place] [address] Gmc, Gml Mobile Home Draw [address] [place] [address] 11/15/2023 9:20 AM EST Laboratory Lab Mobile Phlebotomy [facility] [address] [place] [address] Gmc, Gml Mobile Home Draw [address] [place] [address] 11/29/2023 9:10 AM EST Laboratory Lab Mobile Phlebotomy [facility] [address] [place] [address] Gm, Gml Mobile Home Draw [address] [place] [address] 12/13/2023 9:10 AM EDT Laboratory Lab Mobile Phlebotomy [facility] [address] [place] [address] Gm, Gml Mobile Home Draw [address] [place] [address] 01/04/2024 10:20 AM EDT Office Visit Otolaryngology [facility] 132 [facility] [place] [address] Kasi Tejeda PA-C [address] [place] [address] 01/26/2024 11:20 AM EDT Office Visit Family Medicine [address] [place] [phone] Zenobia Lyon MD [address] [place] [address] [place] [address] 03/07/2024 1:00 PM EDT Office Visit Cardiology [address] [place] [address] Chris Choudhury PA-C [address] [place] [address] Scheduled Procedures Name Priority Associated Diagnoses Date/Ti [...] Additional history exists CKD PHOS USE SMARTSET 26810 07/25/202407/03, 09/07/2022, 09/05/2022, Additional history exists O2 ASSESSMENT COMPLETED IN PAST YEAR FOR COPD 09/29/2024 09/29/2023 CKD HGB USE SMARTSET 78747 10/11/202410/11, 10/11/2023, 10/05/2023, Additional history exists COLONOSCOPY-EVERY [...] this encounter Medical Devices Implanted Type Area Spiral Spring Winder Device Identifier Shelf Expiration Date Model / Serial / Lot Screw T2 Alpha Lock 5x47.5mm - [id number] Implanted:Qty: 1 on 09/06/2022 by Sean Silva MD at [place] [facility] Left: Leg Upper RICHELLE : TRAUMA 06/01/2032 [id number] / / [id number] documented as of this encounter Advance Directives Documents on File Type Date Recorded Patient Supervisor Industrial Arts Education Expl anation POLST 10/17/2022 [place] DERS [...] Agen t (per Health Care Power of Price Lister document) Reji Trejo Adult Child First Alterna te Health Care Agent (per Health Care Power of Price Lister document) Boewn Palaciosmel Adult Child First Alternate Health Care Agent (per Health Care Power of Price Lister document) Care Teams Philosophy Faculty Relationship Specialty Start Date End Date Zenobia Lyon MD [address] [place] [address] [place] [address] PCP - General Family Medicine 05/22/23 documented as of this encounter
--- OUTSIDE RECORDS SUMMARY | 2023-11-09 04:55 | External Medical Summary | Summary of Care ---
Author Name Unknown Organization [facility] Address [address] [facility] [address] Phone [phone] Care Team Providers Care Structural Engineering Project Manager Name Role Phone Zenobia Lyon MD Primary Care Provide r Reason for Visit * Reason Onset Date Comments [facility]: Maintenance 10/18/2023 Encounter Details Date Type Department Care Team (Late st Contact Info) Description 10/18/2023 12:45 PM EST Scheduled Telephone [facility], [facility] [address] [place] [address] Coordinator, [facility] [address] [place] [address] Allergies Active Allergy Reactions Criticality Noted Date Comments James Inhibitors 09/10/2002 cough on prinivil Hydrocodone 09/05/2022 Family states AMS change when taken Prednisone 05/26/2011 Blisters in throat Sulfa Antibiotics 03/19/2001 dysurea documented as of this encounter (statuses as of 10/18/2023) Medications Medication Sig Dispensed Refills Start Date [...] 75 MG Oral Tablet (pLAVix)Indications: Atherosclerosis of [place] coronary artery of [place] heart without angina pectoris Take 1 Tablet [...] 90 Tablet 0 09/18/2023 Active Saline Nasal [place] 0.65 % Nasal Solution (Saline Mist [place]) Use 2 sprays into Nostril every 1 hour as needed for dry nasal passages 44 mL 0 09/27/2023 Active documented as of this encounter (statuses as of 10/18/2023) Active Problems Patient Care Coordination No te [...] CORONARY ATHEROSCLEROSIS OF UNSPECIFIED TYPE OF VESSEL, INUPIAT OR GRAFT Last Assessment & Plan: Stable. 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 documented as of this encounter (statuses as of 10/18/2023) Resolved Problems Problem Noted Date Diagnosed Date [...] as of this encounter (statuses as of 10/18/2023) Immunizations Name Administration Dates Next Due COVID-19 [...] Telephone Encounter - Dea Machado RN - 10/18/2023 9:02 AM EST [facility] Telephonic Nurse Follow-Up Call [facility] Subprogram: Primary Care at Home Follow Up Call Type: Routine follow up call / Status Check Acute issue requiring follow-up call: Other: f/u PC to see if patient is admitted to [facility] Objective: 10/05/2023 10:18 AM 09/29/2023 10:33 AM [...] adjustments made during acute episode Current Concerns: Phone call to spouse Remedios, patient is still inpatient at [facility]. She is unsure of dischargeplan but thinks patient may discharge home today. Follow up PC tomorrow Disposition: Follow up call scheduled for tomorrow with ALMA Senior Java Web Application Developer Future Visits Scheduled: Future Appointments-next 60 days Date/Time Provider Specialty Dept Phone 10/18/2023 12:45 PM Coordinator, [facility] [phone] 10/19/2023 10:45 AM Coordinator, [facility] [phone] 10/19/2023 11:20 AM (Arrive by 11:05 AM) Zenobia Lyon MD Family Medicine [phone] 10/25/2023 9:20 AM [facility] Mobile Home Draw Laboratory Processing [phone] 10/26/2023 11:00 AM (Arrive by 10:45 AM) Lobito Croft [facility] [phone] 11/01/2023 9:10 AM [facility], [facility] Mobile Home Draw Laboratory Processing [phone] 11/01/2023 9:20 AM [facility] Mobile Home Draw Laboratory Processing [phone] 11/03/2023 10:45 AM (Arrive by 10:30 AM) Pietro Sykes MD Hematology Oncology [phone] 11/08/2023 9:20 AM [facility] Mobile [facility] Draw Laboratory Processing [phone] 11/13/2023 10:00 AM Lila Brownlee RN [facility] [phone] 11/15/2023 9:10 AM [facility] Mobile [facility] Draw Laboratory Processing [phone] 11/15/2023 9:20 AM [facility] Mobile [facility] Draw Laboratory Processing [phone] 11/29/2023 9:10 AM [facility] Mobile Home Draw Laboratory Processing [phone] 12/13/2023 9:10 AM [facility] Mobile Home Draw Laboratory Processing [phone] 01/04/2024 10:20 AM (Arrive by 10:05 AM) Kasi Tejeda PA-C Otolaryngology [phone] 01/26/2024 11:20 AM (Arrive by 11:05 AM) Zenobia Lyon MD Family Medicine [phone] 03/07/2024 1:00 PM (Arrive by 12:45 PM) Chris Choudhury PA-C Cardiology [phone] Dea Machado RN documented in this encounter Plan of Treatment Upcoming Encounters Date Type Department Care Team (Late st Contact Info) Description 10/19/2023 10:45 AM EST Scheduled Telephone [facility], [facility] [address] [place] [address] Coordinator, [facility] [address] [place] [address] 10/19/2023 11:20 AM EST Office Visit Family Medicine [address] [phone] Zenobia Lyon MD [address] [place] [address] [place] [address] 10/25/2023 9:20 AM EST Laboratory Lab Mobile Phlebotomy [facility] [address] [place] [address] [facility] Mobile Home Draw [address] [place] [address] 10/26/2023 11:00 AM EST Cardiac Studies Cardiology [address] [place] [address] [facility] [address] [address] 11/01/2023 9:10 AM EST Laboratory Lab Mobile Phlebotomy [facility] [address] [place] [address] [facility] Mobile Home Draw [address] [place] [address] 11/01/2023 9:20 AM EST Laboratory Lab Mobile Phlebotomy [facility] [address] [place] [address] [facility] Mobile Home Draw [address] [place] [address] 11/03/2023 10:45 AM EST Office Visit Hematology/Oncology [facility] [place] [address] [facility] [place] [address] Pietro Sykes MD [address] [place] [address] 11/08/2023 9:20 AM EST Laboratory Lab Mobile Phlebotomy [facility] [address] [place], [place] [address] [facility] Mobile Home Draw [address] [place] [address] 11/13/2023 10:00 AM EST Home Visit Alma Rosaer at [facility] [address] [facility] [place] [address] Lila Brownlee, RN [address] [place] [address] 11/15/2023 9:10 AM EST Laboratory Lab Mobile Phlebotomy [facility] [address] [place] [address] [facility] Mobile Home Draw [address] [place] [address] 11/15/2023 9:20 AM EST Laboratory Lab Mobile Phlebotomy [facility] [address] [place] [address] [facility] Mobile Home Draw [address] [place] [address] 11/29/2023 9:10 AM EST Laboratory Lab Mobile Phlebotomy C [address] [place] [address] [facility] Mobile Home Draw [address] [place] [address] 12/13/2023 9:10 AM EDT Laboratory Lab Mobile Phlebotomy [facility] [address] [place] [address] [facility], [facility] Mobile Home Draw [address] [place] [address] 01/04/2024 10:20 AM EDT Office Visit Otolaryngology [facility] [address] [place] [address] Kasi Tejeda PA-C [address] [place] [address] 01/26/2024 11:20 AM EDT Office Visit Family Medicine [address] [phone] Zenobia Lyon MD [address] [place] [address] [place] [address] 03/07/2024 1:00 PM EDT Office Visit Cardiology [address] [place] [address] Chris Choudhury PA-C [address] [place] [address] Scheduled Procedures Name Priority Associated Diagnoses Date/Ti [...] Additional history exists CKD PHOS USE SMARTSET 04925 07/25/2024 1012/2022, 09/07/2022, 09/05/2022, Additional history exists O2 ASSESSMENT COMPLETED IN PAST YEAR FOR COPD 09/29/2024 09/29/2023 CKD HGB USE SMARTSET 48755 10/11/202410/11, 10/11/2023, 10/05/2023, Additional history exists COLONOSCOPY-EVERY [...] this encounter Medical Devices Implanted Type Area Dry Starch Supervisor Device Identifier Shelf Expiration Date Model / Serial / Lot Screw T2 Alpha Lock 5x47.5mm - [id number] Implanted:Qty: 1 on 09/06/2022 by Sean Silva MD at [facility] Left: Leg Upper RICHELLE : TRAUMA 06/01/2032 [id number] / / [id number] documented as of this encounter Advance Directives Documents on File Type Date Recorded Patient Drafter Automotive Design Expl anation POLST 10/17/2022 [place] OR DERS [...] t (per Health Care Power of Career Advisor document) Reji Omer Dotts Adult Child First Alterna te Health Care Agent (per Health Care Power of Career Advisor document) Bowen Tello Adult Child First Alternate Health Care Agent (per Health Care Power of Career Advisor document) Care Teams Structural Engineering Project Manager Relationship Specialty Start Date End Date Zenobia Lyon MD [address] [place] [address] [place] [address] PCP - General Family Medicine 05/22/23 documented as of this encounter
--- OUTSIDE RECORDS SUMMARY | 2023-11-09 04:55 | External Medical Summary | Summary of Care ---
Author Name Unknown Organization [facility] Address [address] [facility] [address] Phone [phone] Care Team Providers Care Economic Consultant Name Role Phone Zenobia Lyon MD Primary Care Provide r Reason for Visit * Reason Onset Date Comments [facility]: Maintenance 10/14/2023 Encounter Details Date Type Department Care Team (Late st Contact Info) Description 10/14/2023 1:00 PM EST Scheduled Telephone [facility], [facility] 132 [facility] [place] [address] [facility], Nurse [facility] 132 [facility] [place] [address] Allergies Active Allergy Reactions Criticality Noted Date Comments James Inhibitors 09/10/2002 cough on prinivil Hydrocodone 09/05/2022 Family states AMS change when taken Prednisone 05/26/2011 Blisters in throat Sulfa Antibiotics 03/19/2001 dysurea documented as of this encounter (statuses as of 10/16/2023) Medications Medication Sig Dispensed Refills Start Date [...] 75 MG Oral Tablet (pLAVix)Indications: Atherosclerosis of [place] coronary artery of [place] heart without angina pectoris Take 1 Tablet [...] 90 Tablet 0 09/18/2023 Active Saline Nasal [place] 0.65 % Nasal Solution (Saline Mist [place]) Use 2 sprays into Nostril every 1 hour as needed for dry nasal passages 44 mL 0 09/27/2023 Active documented as of this encounter (statuses as of 10/16/2023) Active Problems Patient Care Coordination No te [...] as of this encounter (statuses as of 10/16/2023) Resolved Problems Problem Noted Date Diagnosed Date [...] 05/30/2022 01/24/2023 Overview: Xavier to [facility] 04/20-04/29 [...] glenn [employer] leg ; [employer] 07/0207/18/2002 07/15/2015 Dyslipidemia, goal to be determined [...] as of this encounter (statuses as of 10/16/2023) Immunizations Name Administration Dates Next Due COVID-19 [...] Telephone Encounter - Zenobia Lyon MD - 10/16/2023 8:51 AM EST Will evaluate the need for hospice referral after hospital discharge * Telephone Encounter - Simran Murillo RN - 10/14/2023 9:10 AM EST Message received from triage nurse called and said pt fell Called spoke to spouse. Pt currently in [facility] ED She states pt was not lucid.got [...] can communicate with ED regarding concerns and [facility] can discuss HH vs hospice vs placement Spouse inquiring about hospice Care teams please advise unsure level of care pt needs Urgent referral may need to be placed Simran Murillo RN, BSN [facility] locomotive supervisorProfessional Nursing Tutor documented in this encounter Plan of Treatment Upcoming Encounters Date Type Department Care Team (Late st Contact Info) Description 10/18/2023 9:10 AM EST Laboratory Lab Mobile Phlebotomy [facility] [address] [place] [address] [facility] Draw [address] [place] [address] 10/18/2023 9:20 AM EST Laboratory Lab Mobile Phlebotomy [facility] [address] [place] [address] [facility] Mobile Home Draw [address] [place] [address] 10/19/2023 11:20 AM EST Office Visit Family Medicine [address] [place] [address] Zenobia Lyon MD [address] [place] [address] [place] [address] 10/25/2023 9:20 AM EST Laboratory Lab Mobile Phlebotomy [facility] [address] [place] [address] [facility] Mobile Home Draw [address] [place] [address] 10/26/2023 11:00 AM EST Cardiac Studies Cardiology [address] [place] [address] [facility] 132 [facility] [place] [address] 11/01/2023 9:10 AM EST Laboratory Lab Mobile Phlebotomy [facility] [address] [place] [address] [facility], [facility] Mobile Home Draw [address] [place] [address] 11/01/2023 9:20 AM EST Laboratory Lab Mobile Phlebotomy [facility] [address] [place] [address] [facility], [facility] Mobile Home Draw [address] [place] [address] 11/03/2023 10:45 AM EST Office Visit Hematology/Oncology [facility] 200 [facility] [place] [address] Pietro Sykes MD [address] [place] [address] 11/08/2023 9:20 AM EST Laboratory Lab Mobile Phlebotomy [facility] [address] [place] [address] [facility] Mobile Home Draw [address] [place] [address] 11/13/2023 10:00 AM EST [facility] Visit [facility], [facility] 132 [facility] [place] [address] Lila Brownlee, SANKET 132 [facility] [place] [address] 11/15/2023 9:10 AM EST Laboratory Lab Mobile Phlebotomy [facility] [address] [place] [address] [facility] Mobile Home Draw [address] [place] [address] 11/15/2023 9:20 AM EST Laboratory Lab Mobile Phlebotomy [facility] [address] [place] [address] [facility] Mobile Home Draw [address] [place] [address] 11/29/2023 9:10 AM EST Laboratory Lab Mobile Phlebotomy [facility] [address] [place] [address] [facility] Mobile Home Draw [address] [place] [address] 12/13/2023 9:10 AM EDT Laboratory Lab Mobile Phlebotomy [facility] [address] [place] [address] [facility] Mobile Home Draw [address] [place] [address] 01/04/2024 10:20 AM EDT Office Visit Otolaryngology [facility] [address] [place] [address] Kasi Tejeda PA-C [address] [place] [address] 01/26/2024 11:20 AM EDT Office Visit Family Medicine [address] [place] [address] Zenobia Lyon MD [address] [place] [address] [place] [address] 03/07/2024 1:00 PM EDT Office Visit Cardiology [address] [place] [address] Chris Choudhury PADereckC [address] [place] [address] Scheduled Procedures Name Priority Associated Diagnoses Date/Ti [...] Additional history exists CKD PHOS USE SMARTSET 85127 07/25/202407/03, 09/07/2022, 09/05/2022, Additional history exists O2 ASSESSMENT COMPLETED IN PAST YEAR FOR COPD 09/29/2024 09/29/2023 CKD HGB USE SMARTSET 38424 10/11/202410/11, 10/11/2023, 10/05/2023, Additional history exists COLONOSCOPY-EVERY [...] encounter Medical Devices Implanted Type Area Rubber Goods Assembler Device Identifier Shelf Expiration Date Model / Serial / Lot Screw T2 Alpha Lock 5x47.5mm - [id number] Implanted:Qty: 1 on 09/06/2022 by Sean Silva MD at [facility] Left: Leg Upper RICHELLE : TRAUMA 06/01/2032 [id number] / / [id number] documented as of this encounter Advance Directives Documents on File Type Date Recorded Patient Rod Straightener Expl anation POLST 10/17/2022 [place] OR DERS [...] Agen t (per Health Care Power of Shoemaker Custom document) Reji Tello Dotts Adult Child First Alterna te Health Care Agent (per Health Care Power of Shoemaker Custom document) Bowen Tello Adult Child First Alternate Health Care Agent (per Health Care Power of Shoemaker Custom document) Care Teams Economic Consultant Relationship Specialty Start Date End Date Zenobia Lyon MD [address] [place] [address] [place] [phone] PCP - General Family Medicine 05/22/23 documented as of this encounter
--- OUTSIDE RECORDS SUMMARY | 2023-11-09 04:55 | External Medical Summary | Summary of Care ---
Author Name Unknown Organization [facility] Address [address] [facility] [address] Phone [phone] Care Team Providers Care Communication Equipment Repairer Name Role Phone Zenobia Lyon MD Primary Care Provide r Reason for Visit * Reason Onset Date Comments [facility]: Maintenance 10/15/2023 Encounter Details Date Type Department Care Team (Late st Contact Info) Description 10/15/2023 12:00 PM EST Scheduled Telephone [facility], [facility] 132 [facility] [place] [address] [facility], Nurse [facility] 132 [employer] [place] [address] Allergies Active Allergy Reactions Criticality Noted Date Comments James Inhibitors 09/10/2002 cough on prinivil Hydrocodone 09/05/2022 Family states AMS change when taken Prednisone 05/26/2011 Blisters in throat Sulfa Antibiotics 03/19/2001 dysurea documented as of this encounter (statuses as of 10/15/2023) Medications Medication Sig Dispensed Refills Start Date [...] 75 MG Oral Tablet (pLAVix)Indications: Atherosclerosis of [place] coronary artery of [place] heart without angina pectoris Take 1 Tablet [...] 90 Tablet 0 09/18/2023 Active Saline Nasal [place] 0.65 % Nasal Solution (Saline Mist [place]) Use 2 sprays into Nostril every 1 hour as needed for dry nasal passages 44 mL 0 09/27/2023 Active documented as of this encounter (statuses as of 10/15/2023) Active Problems Patient Care Coordination No te [...] CORONARY ATHEROSCLEROSIS OF UNSPECIFIED TYPE OF VESSEL, UGASHIK OR GRAFT Last Assessment & Plan: Stable. 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 documented as of this encounter (statuses as of 10/15/2023) Resolved Problems Problem Noted Date Diagnosed Date [...] without hematuria 05/30/2022 01/24/2023 Overview: Xavier to [facility] 04/20-04/29 [...] as of this encounter (statuses as of 10/15/2023) Immunizations Name Administration Dates Next Due COVID-19 [...] encounter Miscellaneous Notes * Telephone Encounter - Vlema Carpio RN - 10/15/2023 10:09 AM EST T/c to [facility] for f/u Referred to [facility] after fall Pt currently inpt at [facility] documented in this encounter Plan of Treatment Upcoming Encounters Date Type Department Care Team (Late st Contact Info) Description 10/18/2023 9:10 AM EST Laboratory Lab Mobile Phlebotomy [facility] [address] [place] [address] [facility] Mobile Home Draw [address] [place] [address] 10/18/2023 9:20 AM EST Laboratory Lab Mobile Phlebotomy [facility] [address] [place] [address] [facility] Mobile Home Draw [address] [place] [address] 10/19/2023 11:20 AM EST Office Visit Family Medicine [address] [place] [address] Zenobia Lyon MD [address] [place] [address] [place] [address] 10/25/2023 9:20 AM EST Laboratory Lab Mobile Phlebotomy [facility] [address] [place] [address] [facility] Mobile Home Draw [address] [place] [address] 10/26/2023 11:00 AM EST Cardiac Studies Cardiology [address] [place] [address] [facility], Pacer [address] [address] 11/01/2023 9:10 AM EST Laboratory Lab Mobile Phlebotomy [facility] [address] [place] [address] [facility] Mobile Home Draw [address] [place] [address] 11/01/2023 9:20 AM EST Laboratory Lab Mobile Phlebotomy [facility] [address] [place] [address] [facility] Mobile Home Draw [address] [place] [address] 11/03/2023 10:45 AM EST Office Visit Hematology/Oncology [facility] [place] [address] Pietro Sykes MD 200 [facility] [place] [address] 11/08/2023 9:20 AM EST Laboratory Lab Mobile Phlebotomy [facility] [address] [place] [address] [facility] Mobile Home Draw [address] [place] [address] 11/13/2023 10:00 AM EST Home Visit [facility] at [facility] 132 [place] [address] Lila Brownlee, SANKET [address] [place] [address] 11/15/2023 9:10 AM EST Laboratory Lab Mobile Phlebotomy [facility] [address] [place] [address] [facility] Mobile Home Draw [address] [place] [address] 11/15/2023 9:20 AM EST Laboratory Lab Mobile Phlebotomy [facility] [address] [place] [address] [facility] Mobile Home Draw [address] [place] [address] 11/29/2023 9:10 AM EST Laboratory Lab Mobile Phlebotomy [facility] [address] [place] [address] [facility] Mobile Home Draw [address] [place] [address] 12/13/2023 9:10 AM EDT Laboratory Lab Mobile Phlebotomy [facility] [address] [place] [address] [facility] Mobile Home Draw [address] [place] [address] 01/04/2024 10:20 AM EDT Office Visit Otolaryngology [facility] 132 [employer] [place] [address] Kasi Tejeda PA-C 132 [place] [address] 01/26/2024 11:20 AM EDT Office Visit Family Medicine [address] [place] [phone] Zenobia Lyon MD [address] [place] [address] [place] [address] 03/07/2024 1:00 PM EDT Office Visit Cardiology [address] [place] [address] Chris Choudhury PA-C [address] [place] [address] Scheduled Procedures Name Priority Associated Diagnoses Date/Ti [...] Additional history exists CKD PHOS USE SMARTSET 87422 07/25/2024 10/2 12/2022, 09/07/2022, 09/05/2022, Additional history exists O2 ASSESSMENT COMPLETED IN PAST YEAR FOR COPD 09/29/2024 09/29/2023 CKD HGB USE SMARTSET 77740 10/11/202410/11, 10/11/2023, 10/05/2023, Additional history exists COLONOSCOPY-EVERY [...] this encounter Medical Devices Implanted Type Area Information Systems Operator Device Identifier Shelf Expiration Date Model / Serial / Lot Screw T2 Alpha Lock 5x47.5mm - [id number] Implanted:Qty: 1 on 09/06/2022 by Sean Silva MD at [facility] Left: Leg Upper RICHELLE : TRAUMA 06/01/2032 [id number] / / [id number] documented as of this encounter Advance Directives Documents on File Type Date Recorded Patient Pediatric Associate Expl anation POLST 10/17/2022 [place] OR DERS [...] Agen t (per Health Care Power of Mental Health Aide document) Reji Omer Dotts Adult Child First Alterna te Health Care Agent (per Health Care Power of Mental Health Aide document) Bowen Tello Adult Child First Alternate Health Care Agent (per Health Care Power of Mental Health Aide document) Care Teams Communication Equipment Repairer Relationship Specialty Start Date End Date Zenobia Lyon MD [address] [place] [address] [place] [phone] PCP - General Family Medicine 05/22/23 documented as of this encounter
--- OUTSIDE RECORDS SUMMARY | 2023-11-09 04:55 | External Medical Summary | Summary of Care ---
Author Name Unknown Organization [facility] Address [address] [place] [address] Phone [phone] Care Team Providers Care Threading Machine Operator Name Role Phone Zenobia Lyon MD Primary Care Provide r Reason for Visit * Reason Onset Date Comments [facility]: Maintenance 10/17/2023 Encounter Details Date Type Department Care Team (Late st Contact Info) Description 10/17/2023 Telephone [facility], [facility] [address] [place] [address] [facility], Nurse [address] [place] [address] [facility]: [...] Tablet 0 09/18/2023 Active Saline Nasal [place] 0.65 % Nasal Solution (Saline Mist [place]) Use 2 sprays into Nostril every 1 [...] hematuria 05/30/2022 01/24/2023 Overview: Xavier to [facility] 04/20-04/29 urosepsis multi drug resistant E. [...] Telephone Encounter - Asmita Conner RN - 10/17/2023 9:09 AM EST Pt.'s calling [facility] to report that pt is currently inpatient at [facility] in [place], [place]. Diagnosis is UTI. She is concerned that he has appt for G[facility] home draw tomorrow. CG is unsure if pt is being dischargetoday or if she should cx appt tomorrow. Advised CG to call [facility] if pt is not being discharged and we will cx appt for pt. is agreeable to this plan. Asmita Conner RN [facility] Intake Triage Coordinator [phone] documented in this encounter Plan of Treatment Upcoming Encounters Date Type Department Care Team (Late st Contact Info) Description 10/18/2023 9:10 AM EST Laboratory Lab Mobile Phlebotomy [facility] [place] [address] [place] [address] [facility] Mobile Home Draw [address] [place] [address] 10/18/2023 9:20 AM EST Laboratory Lab Mobile Phlebotomy [facility] [place] [address] [place] [address] [facility] [place] Mobile Home Draw [address] [place] [address] 10/18/2023 12:45 PM EST Scheduled Telephone [facility], [facility] [address] Coordinator, [facility] 132 [facility] [place] [address] 10/19/2023 10:45 AM EST Scheduled Telephone [facility] [place], [facility] 132 [facility] [place] [address] Coordinator, [address] [address] 10/19/2023 11:20 AM EST Office Visit Family Medicine [address] [place] [phone] Zenobia Lyon MD [address] [place] [address] [place] [address] 10/25/2023 9:20 AM EST Laboratory Lab Mobile Phlebotomy [facility] [place] [address] [place] [address] [facility] [place] Mobile Home Draw [address] [place] [address] 10/26/2023 11:00 AM EST Cardiac Studies Cardiology [address] [place] [address] Lobito Croft [facility] 132 [facility] [place] [address] 11/01/2023 9:10 AM EST Laboratory Lab Mobile Phle[facility] [address] [place] [address] [facility] Mobile Home Draw [address] [place] [address] 11/01/2023 9:20 AM EST Laboratory Lab Mobile Phlebotomy [facility] [address] [place] [address] [facility] Mobile Home Draw [address] [place] [address] 11/03/2023 10:45 AM EST Office Visit Hematology/Oncology [facility] [place] [address] [facility] [place] [address] Pietro Sykes MD [address] [place] [address] 11/08/2023 9:20 AM EST Laboratory Lab Mobile Phlebotomy [facility] [place] [address] [place] [address] [facility] [place] [facility] Home Draw [address] [place] [address] 11/13/2023 10:00 AM EST Home Visit isinger at [facility] [address] [place] [address] Lila Brownlee RN [address] [place] [address] 11/15/2023 9:10 AM EST Laboratory Lab Mobile Phlebotomy [facility] [address] [place] [address] [facility] Mobile Home Draw [address] [place] [address] 11/15/2023 9:20 AM EST Laboratory Lab Mobile Phlebotomy [facility] [address] [place] [address] [facility] Mobile Home Draw [address] [place] [address] 11/29/2023 9:10 AM EST Laboratory Lab Mobile Phlebotomy [facility] [place] [address] [place] [address] [facility] [place] Mobile Home Draw [address] [place] [address] 12/13/2023 9:10 AM EDT Laboratory Lab Mobile Phlebotomy [facility] [place] [address] [place] [address] [facility] [place] Mobile Home Draw [address] [place] [address] 01/04/2024 10:20 AM EDT Office Visit Otolaryngology [facility] [address] [place] [address] Kasi Tejeda PA-C [address] [place] [address] 01/26/2024 11:20 AM EDT Office Visit Family Medicine [address] [place] [phone] Zenobia Lyon MD [address] [place] [address] [place] [address] 03/07/2024 1:00 PM EDT Office Visit Cardiology [address] [place] [address] Chris Choudhury PA-C [address] [place] [address] Scheduled Procedures Name Priority Associated Diagnoses Date/Ti [...] Additional history exists CKD PHOS USE SMARTSET 36335 07/25/202407/03, 09/07/2022, 09/05/2022, Additional history exists O2 ASSESSMENT COMPLETED IN PAST YEAR FOR COPD 09/29/2024 09/29/2023 CKD HGB USE SMARTSET 03427 10/11/202410/11, 10/11/2023, 10/05/2023, Additional history exists COLONOSCOPY-EVERY [...] this encounter Medical Devices Implanted Type Area Metal Casting Trades Worker Device Identifier Shelf Expiration Date Model / Serial / Lot Screw T2 Alpha Lock 5x47.5mm - [id number] Implanted:Qty: 1 on 09/06/2022 by Sean Silva MD at [facility] Left: Leg Upper RICHELLE : TRAUMA 06/01/2032 [id number] / / [id number] documented as of this encounter Advance Directives Documents on File Type Date Recorded Patient Batch Tester Expl anation POLST 10/17/2022 [place] DERS [...] t (per Health Care Power of Route Service Manager document) Reji Tello Dotts Adult Child First Alterna te Health Care Agent (per Health Care Power of Route Service Manager document) Bowen Tello Adult Child First Alternate Health Care Agent (per Health Care Power of Route Service Manager document) Care Teams Threading Machine Operator Relationship Specialty Start Date End Date Zenobia Lyon MD [address] [place] [address] [place] [address] PCP - General Family Medicine 05/22/23 documented as of this encounter
--- OUTSIDE RECORDS SUMMARY | 2023-11-09 04:55 | External Medical Summary | Summary of Care ---
Author Name Unknown Organization [facility] Address [address] [facility] [address] Phone [phone] Care Team Providers Care Gum Mixer Name Role Phone Zenobia Lyon MD Primary Care Provide r Reason for Visit * Reason Onset Date Comments [facility]: Maintenance 10/19/2023 Encounter Details Date Type Department Care Team (Late st Contact Info) Description 10/19/2023 10:45 AM EST Scheduled Telephone [facility], [facility] [address] [place] [address] Coordinator, [facility] [address] [place] [address] Allergies Active Allergy Reactions Criticality Noted Date [...] artery of lumbee heart without angina pectoris Take 1 Tablet [...] Tablet 0 09/18/2023 Active Saline Nasal [place] 0.65 % Nasal Solution (Saline Mist [place]) Use 2 sprays into Nostril every 1 [...] [facility] Tele[facility] Follow-Up Call [facility] Subprogram: Primary Care at Home Follow [...] who reports patient is still admitted to [facility]. She states he is receiving IV antibiotics, unsure of discharge date at this time. She states she will call [facility] with discharge date when known. Routing to [facility] to follow for hospital discharge Disposition: Issue resolved. All appropriate follow up scheduled. Future Visits Scheduled: Future Appointments-next 60 days Date/Time Provider Specialty Dept Phone 10/25/2023 9:20 AM [facility] Mobile Home Draw Laboratory Processing [phone] 10/26/2023 11:00 AM (Arrive by 10:45 AM) Lobito Croft [facility] Cardiology [phone] 11/01/2023 9:10 AM [facility] Mobile Home Draw Laboratory Processing [phone] 11/01/2023 9:20 AM [facility] Mobile Home Draw Laboratory Processing [phone] 11/03/2023 10:45 AM (Arrive by 10:30 AM) Pietro Sykes MD Hematology Oncology [phone] 11/08/2023 9:20 AM [facility] Mobile Home Draw Laboratory Processing [phone] 11/13/2023 10:00 AM Lila Brownlee, SANKET [facility] [phone] 11/15/2023 9:10 AM [facility] Mobile Home Draw Laboratory Processing [phone] 11/15/2023 9:20 AM [facility] Mobile Home Draw Laboratory Processing [phone] 11/29/2023 9:10 AM [facility] Mobile Home Draw Laboratory Processing [phone] 12/13/2023 9:10 AM [facility] Mobile Home Draw Laboratory Processing [phone] 01/04/2024 10:20 AM (Arrive by 10:05 AM) Kasi Tejeda PA-C Otolaryngology [phone] 01/26/2024 11:20 AM (Arrive by 11:05 AM) Zenobia Lyon MD Family Medicine [phone] 03/07/2024 1:00 PM (Arrive by 12:45 PM) Chris Choudhury PA-C Cardiology [phone] Dea Machado RN documented in this encounter Plan of Treatment Upcoming Encounters Date Type Department Care Team (Late st Contact Info) Description 10/25/2023 9:20 AM EST Laboratory Lab Mobile Phlebotomy [facility] [address] [place] [address] [facility] Draw [address] [facility] [place] [address] 10/26/2023 11:00 AM EST Cardiac Studies Cardiology [address] [place] [address] Lobito Croft [address] [address] 11/01/2023 9:10 AM EST Laboratory Lab Mobile Phlebotomy [facility] [address] [facility] [place] [address] [facility] Mobile Home Draw [address] [place] [address] 11/01/2023 9:20 AM EST Laboratory Lab Mobile Phlebotomy [facility] [address] [place] [address] [facility] Mobile Home Draw [address] [place] [address] 11/03/2023 10:45 AM EST Office Visit Hematology/Oncology [facility] 200 [facility] [place] [address] Pietro Sykes MD 200 [place] [address] 11/08/2023 9:20 AM EST Laboratory Lab Mobile Phlebotomy [facility] [address] [place] [address] [facility] Mobile Home Draw [address] [place] [address] 11/13/2023 10:00 AM EST Home Visit ising at [facility] [address] [place] [address] Lila Brownlee, RN [address] [place] [address] 11/15/2023 9:10 AM EST Laboratory Lab Mobile Phlebotomy [facility] [address] [place] [address] [facility] Mobile Home Draw [address] [place] [address] 11/15/2023 9:20 AM EST Laboratory Lab Mobile Phlebotomy [facility] [address] [place] [address] [facility] Mobile Home Draw [address] [place] [address] 11/29/2023 9:10 AM EST Laboratory Lab Mobile Phlebotomy [facility] [address] [place] [address] [facility] Mobile Home Draw [address] [place] [address] 12/13/2023 9:10 AM EDT Laboratory Lab Mobile Phlebotomy [facility] [address] [place] [address] [facility] Mobile Home Draw [address] [place] [address] 01/04/2024 10:20 AM EDT Office Visit Otolaryngology [facility] [address] [place] [address] Kasi Tejeda PA-C [address] [place] [address] 01/26/2024 11:20 AM EDT Office Visit Family Medicine [address] [place] [phone] Zenobia Lyon MD [address] [place] [address] [place] [address] 03/07/2024 1:00 PM EDT Office Visit Cardiology [address] [place] [address] Chris Choudhury PA-C [address] [place] [address] Scheduled Procedures Name Priority Associated Diagnoses Date/Ti [...] Additional history exists CKD PHOS USE SMARTSET 47820 07/25/202407/03, 09/07/2022, 09/05/2022, Additional history exists O2 ASSESSMENT COMPLETED IN PAST YEAR FOR COPD 09/29/2024 09/29/2023 CKD HGB USE SMARTSET 70866 10/11/202410/11, 10/11/2023, 10/05/2023, Additional history exists COLONOSCOPY-EVERY [...] this encounter Medical Devices Implanted Type Area Superannuation Clerk Device Identifier Shelf Expiration Date Model / Serial / Lot Screw T2 Alpha Lock 5x47.5mm - [id number] Implanted:Qty: 1 on 09/06/2022 by Sean Silva MD at [facility] Left: Leg Upper RICHELLE : TRAUMA 06/01/2032 [id number] / / [id number] documented as of this encounter Advance Directives Documents on File Type Date Recorded Patient Internal Audit Senior Manager Expl anation POLST 10/17/2022 [place] OR DERS [...] t (per Health Care Power of Assistant Center Director document) Reji Tello Dotts Adult Child First Alterna te Health Care Agent (per Health Care Power of Assistant Center Director document) Bowen Tello Adult Child First Alternate Health Care Agent (per Health Care Power of Assistant Center Director document) Care Teams Gum Mixer Relationship Specialty Start Date End Date Zenobia Lyon MD [address] [place] [address] [place] [address] PCP - General Family Medicine 05/22/23 documented as of this encounter
[2023-11-09 07:07] LABS: Basophils # (auto) 0.03 K/uL (0.00-0.20); Basophils % (auto) 0.8 %; Eosinophils # (auto) 0.45 K/uL (0.00-0.50); Eosinophils % (auto) 11.3 %; Hemoglobin 8.1 g/dl (14.0-18.0); Immature Granulocytes # (auto) 0.01 K/uL (0.01-0.20); Immature Granulocytes % (auto) 0.3 %; Lymphocytes # (auto) 0.93 K/uL (1.20-3.40); Lymphocytes % (auto) 23.4 %; Mean Corpuscular Hemoglobin 30.2 pg (25.0-34.0); Mean Corpuscular Hgb Conc 31.2 g/dL (32.0-36.0); Mean Platelet Volume 9.9 fL (9.4-12.4); Monocytes # (auto) 0.52 K/uL (0.11-0.59); Monocytes % (auto) 13.1 %; Neutrophils # (auto) 2.04 K/uL (1.40-6.50); Neutrophils % (auto) 51.1 %; Platelet Count 161 K/uL (130-400); RDW Coefficient of Variation 20.7 % (11.5-14.5); Red Blood Count 2.68 M/uL (4.70-6.10); White Blood Count 3.98 K/ul (4.8-10.8)
[2023-11-09] MEDS: ACETAMINOPHEN 500 MG TAB PO SCH (07:08)
[2023-11-09] MEDS: LATANOPROST 0.005% OP SOLN 2.5 ML BTL OPB SCH (07:08)
[2023-11-09] MEDS: FLUTICASONE/VILANTEROL 100/25MCG 14 PUFFS/INHALER INH SCH (07:08)
[2023-11-09] MEDS: FINASTERIDE 5 MG TAB PO SCH (07:08)
[2023-11-09] MEDS: FUROSEMIDE 40 MG TAB PO SCH (07:09)
[2023-11-09] MEDS: MULTIVITAMIN TAB PO SCH (07:09)
[2023-11-09] MEDS: METOPROLOL SUCC 50MG EXT REL TAB PO SCH (07:09)
[2023-11-09 07:12] LABS: Calcium 8.7 mg/dl (8.6-10.3); Creatinine Clr Calc Pharmacy 33.6 ml/min; Est GFR (African American) 44.6 ml/min; Est GFR (Non-African American) 38.5 ml/min
--- NOTE | 2023-11-09 07:50 | XRay Report ---
XR chest 1V portable HISTORY: 88 years-old Male chf acute shortness of breath COMPARISON: 10/19/2023 TECHNIQUE: AP view of the chest FINDINGS: Cardiac silhouette is enlarged. Median sternotomy. Left subclavian pacer/AICD. Pulmonary vascular con gestion. No pneumothorax, large pleural effusion or lobar airspace consolidation. IMPRESSION: 1. Cardiomegaly with mild pulmonary edema. 2. No large pleural effusion or airspace consolidation typical for pneumonia. ACT 112: Negative or not required by law. The above report was generated using voice recognition software. It may contain grammatical, syntax o r spelling errors. Electronically signed by: Sourav Lr M.D. 11/09/2023 7:48 AM
[2023-11-09 07:56] LABS: Anisocytosis Present
--- NOTE | 2023-11-09 08:01 | Electrocardiogram Report ---
Test Reason : Blood Pressure : / mmHG Vent. Rate : 079 BPM Atrial Rate : 072 BPM P-R Int : 000 ms QRS Dur : 164 ms QT Int : 406 ms P-R-T Axes : 000 234 041 degrees QTc Int : 465 ms Ventricular-paced rhythm Abnormal ECG When compared with ECG of 14-OCT-2023 09:06, Vent. rate has increased BY 8 BPM Confirmed by Joe Menard ([id number]) on 11/09/2023 8:00:53 AM Referred By: Pietro Sykes Confirmed By:Joe Menard
--- NOTE | 2023-11-09 08:32 | Gastrointestinal Consultation ---
Date of Consultation November 09, 2023 Assessment & Plan (1) Anemia: (2) Melena: Patient is an 88 years old male seen for melena, heme positive stools and anemia. Does have chronic renal insufficiency, seeing radio director in outpatient setting receiving Venofer and PRBC transfusions intermittently. He did have a gastric ulcer history in 2020, most recent EGD and colonoscopy in 2022 were unremarkable for any AVMs, recurrent ulcers. He was previously on Plavix but has not taken this for about 2 months due to epistaxis. Not on any NSAIDs or aspirin at this time. - PPI gtt - Keep NPO - EGD eval today by Dr. Griffin Stokes - Monitor blood ct and transfuse for goal Hgb >7 - Further recs after EGD completed - F/U upon DC with Hematology Supervising Physician Co-Signing Physician Notes I saw and evaluated the patient, we were asked to evaluate him as an outpatient. Of note the patient does have a history of chronic anemia and is on intravenous iron supplementation. He did have an upper endoscopy and colonoscopy performed 8 months ago without any specific abnormalities or emergency medication. We have obtained consent for the procedures from the patient's , we discussed risks of upper endoscopy to include bleeding infection perforation pain and need for follow-up studies. History of Present Illness Reason for Consultation: UGI bleed Requesting Physician: Dr. Gavin Plasencia Attending Physician: Dr. Griffin Stokes History of Present Illness Pt is a 88 years old male with past medical history including chronic diastolic heart failure, CAD status post CABG, PVD, valvular heart disease, hypertension, COPD, BPH, diabetes mellitus type 2, GERD, recurrent UTI, multiple myeloma, chronic renal insufficiency and chronic anemia, who was referred to the ED for anemia noted on outpatient labs. Had been seen Dr. Pietro Sykes for chronic anemia, getting PRBC and Venofer transfusion in outpatient setting. However outpatient labs recently noted hemoglobin of 6.8. He denies any lig htheadedness, dizziness, chest pain, shortness of breath, abdominal pain, nausea or vomiting. He was previously on Plavix but has not taken this medication for over 2 months due to epistaxis. He had a history of stomach ulcers in 2020, suspected to be NSAIDs induced. reports that he is not on any NSAIDs currently. On evaluation here, his hemoglobin was 6.1, given 2 units PRBC transfusion, with good response. Hemoglobin this morning was 8.1. Platelet count normal 161, INR 1.1. Heme positive for melanotic stool noted in the ED Allergies Allergy/AdvReac Type Severity Reaction Status Date / Time Sulfa (Sulfonamide Allergy Severe DYSUREA Verified 11/08/23 18:54 Antibiotics) PER [facility] prednisone Allergy Intermediate BLISTERS Verified 11/08/23 18:54 IN THROAT hydrocodone AdvReac Severe ALTERED Verified 11/08/23 18:54 MENTAL STATUS FELECIA Inhibitors AdvReac Intermediate Cough Verified 11/08/23 18:54 pseudoephedrine AdvReac Intermediate TEMP ELEV Verified 11/08/23 18:54 Home Medications Medication Instructions Recorded Confirmed Type albuterol sulfate 90 mcg/actuation 2 puff inhalation QID PRN 06/07/18 11/08/23 History aerosol inhaler (Proventil HFA) Shortness Of Breath digoxin 125 mcg (0.125 mg) tablet 125 mcg PO 3XWK 06/07/18 11/08/23 History magnesium oxide 400 mg (241.3 mg 400 mg PO PM 06/07/18 11/08/23 History magnesium) tablet potassium chloride 20 mEq 20 meq PO QAM 06/07/18 11/08/23 History tablet,extended release(part/cryst) (Klor-Con M) furosemide 40 mg tablet (Lasix) 40 mg PO QAM 04/25/19 11/08/23 History latanoprost 0.005 % eye drops 1 drp OPB QAM 03/24/20 11/08/23 History pantoprazole 40 mg tablet,delayed 40 mg PO QAM 10/22/21 11/08/23 History release losartan 50 mg tablet 50 mg PO QAM 08/28/22 11/08/23 History metoprolol succinate 50 mg 50 mg PO QAM 08/28/22 11/08/23 History tablet,extended release 24 hr multivitamin 1 tab PO DAILY 08/28/22 11/08/23 History methenamine hippurate 1 gram tablet 1 g PO BID 30 days #60 tabs 11/25/22 11/08/23 Rx glipizide 5 mg tablet, extended 5 mg PO DAILYBB 04/20/23 11/08/23 History release 24 hr dutasteride 0.5 mg capsule 0.5 mg PO QAM 08/22/23 11/08/23 History ondansetron HCl 4 mg tablet 4 mg PO Q6H PRN Nausea And Vomiting 08/22/23 11/08/23 History fluticasone 250 mcg-salmeterol 50 1 inh inhalation BID 10/14/23 11/08/23 History mcg/dose blistr powdr for inhalation sodium chloride 0.65 % nasal spray 0 spray NA Q1H PRN dry nasal 10/14/23 11/08/23 History aerosol (Saline Mist) passages acetaminophen 500 mg tablet 1,000 mg PO BIDM 11/08/23 11/08/23 History (Tylenol Extra Strength) ferrous sulfate 325 mg (65 mg 325 mg PO Q OTHER DAY 11/08/23 11/08/23 History iron) tablet iron sucrose 100 mg iron/5 mL 300 mg IV ONCE 11/08/23 11/08/23 History intravenous solution (Venofer) Patient History Medical History Epistaxis CKD stage 3 due to type 2 diabetes mellitus no specialist Type II diabetes mellitus NIDDM Peptic ulcer disease GI bleed Elevated prostate specific antigen (PSA) Multiple myeloma History of pacemaker Shingles Encounter for pre-operative examination Severe sepsis Dementia GI bleed per pt's > had 3 units PRBC's [facility] during admission in Jul 2021 Dementia mild at present Presence of combination internal cardiac defibrillator (ICD) and pacemaker follows w/ Dr. Sanofrd > Medtronic > gets checked electronically > PMH provided by , eduardo when last checked in office. Chronic back pain Osteoarthritis Anemia History of colon polyps GERD (gastroesophageal reflux disease) Hearing deficit [place] Glaucoma Aortic aneurysm unsure of last ultrasound/scan -- no surgical intervention. Moderate aortic root dilatation noted on 2018 echo. No AAA noted on [address] COPD (chronic obstructive pulmonary disease) well controlled rare res inh use On home oxygen therapy 2 LPM QHS BPH (benign prostatic hyperplasia) Aortic valve insufficiency Moderate-severe per 11/2018 echo Ischemic cardiomyopathy EF normalized, most recently 55-60% on 11/2018 echo Dyslipidemia Persistent atrial fibrillation Anticoagulation contraindicated per cardiology > ICD Tachy-lorna syndrome S/p dual chamber pacer with upgrade to pacer/ICD 2014 HTN (hypertension) CAD (coronary artery disease) (08/21/14) S/p CABG July 2000 receiving KAUR graft to LAD, saphenous vein graft sequentially from the obtuse marginal to diagonal. S/p stenting of prox Cx 2013 Surgical History History of implantable cardioverter-defibrillator (ICD) placement History of tooth extraction History of esophagogastroduodenoscopy (EGD) History of tonsillectomy History of cataract surgery bilat History of prostate surgery non cancerous History of colonoscopy History of cardiac cath 1999 --> CABG 2014 - 1 stent - [facility] S/P CABG x 3 1999 S/P coronary artery stent placement July 2014 with stenting of the proximal circumflex Family History Grandmother Diabetes Mother Colon cancer Other Melanoma No family history of adverse response to anesthesia Social History Smoking Status: Current every day smoker Tobacco Type: Cigarettes Second Hand Exposure: No; Do You Dip or Chew Tobacco: No; Hx Alcohol Use: No Hx Substance Use: No Preferred Language: Persian Communication Ability: Effective Communication Ability Comment: [place]osh[place] despite b/[place] [employer] Nailer Required: No Beliefs That Will Affect Care: None marital status: Current Living Situation: Spouse How many Children do You have: 2 Other Information That Helps Us Care for You: No Feels Safe at Home: Yes Safety Concerns: Feels Safe At This Time Assistive Devices: Cane and Hearing Aid - Bilateral Review of Systems Review of Systems: All systems reviewed & are unremarkable except as noted in HPI & below Physical Exam Constitutional: WD/WN, vitals as above well groomed, cooperative and comfortable Eyes: PERRL, conjunctivae normal, anicteric sclerae ENMT: external ear and nose normal, oropharynx normal Respiratory: normal respiratory effort, lungs clear to auscultation Cardiovascular: RRR, no murmur, no edema Gastrointestinal (Abdomen): normal bowel sounds, soft, nontender, no hepatosplenomegaly Skin: no rashes, warm and dry no jaundice Psychiatric: A+Ox3, euthymic affect Lymphatic: no lymphedema Results & Data Vital Signs (Past 12 Hours) Vital Signs Temp Pulse Pulse Resp BP BP Pulse Ox 11/09/23 07:08 82 11/09/23 06:00 70 17 97 11/09/23 04:00 70 22 129/55 L 94 11/09/23 03:42 11/09/23 02:00 85 21 147/81 H 97 11/09/23 01:30 36.9 C 70 16 153/74 H 96 11/09/23 00:30 36.8 C 71 16 155/72 H 98 11/09/23 00:00 36.9 C 70 22 145/69 H 97 11/08/23 23:45 36.8 C 72 50 H 146/67 H 98 11/08/23 23:30 36.9 C 70 24 149/111 H 11/08/23 23:24 71 11/08/23 22:22 78 11/08/23 22:22 36.5 C 78 24 148/71 H 96 11/08/23 20:58 36.9 C 70 22 153/76 H 96 11/08/23 20:28 36.8 C 72 22 149/90 H 95 O2 Del Method 11/09/23 07:08 11/09/23 06:00 Room Air 11/09/23 04:00 Room Air 11/09/23 03:42 Room Air 11/09/23 02:00 Room Air 11/09/23 01:30 11/09/23 00:30 11/09/23 00:00 11/08/23 23:45 11/08/23 23:30 11/08/23 23:24 11/08/23 22:22 11/08/23 22:22 Room Air 11/08/23 20:58 11/08/23 20:28 (1) Anemia Anemia type: unspecified type Qualified Code(s): D64.9 - Anemia, unspecified
--- NOTE | 2023-11-09 09:58 | Anesthesiology Consultation ---
Date of Service November 09, 2023 Assessment & Plan Chart Review Chart Review: Acceptable Risk for Surgery and Patient NOT seen in Pre Admission Testing Consults Requested none ASA ASA4 Proposed Anesthesia Anesthesia Type: MAC Risk / Benefits Reviewed With: PT / POA / Parent / Guardian, Accepts Plan and Informed Consent Obtained History Surgery Operation Date: 11/09/23 16:45 Proposed Procedures p Esophagogastroduodenoscopy Dr Kike Stokes, DO Height/Weight Height: 5 ft 7 in Weight: 87 kg Allergies Allergy/AdvReac Type Severity Reaction Status Date / Time Sulfa (Sulfonamide Allergy Severe DYSUREA Verified 11/08/23 18:54 Antibiotics) PER [facility] prednisone Allergy Intermediate BLISTERS Verified 11/08/23 18:54 IN THROAT hydrocodone AdvReac Severe ALTERED Verified 11/08/23 18:54 MENTAL STATUS FELECIA Inhibitors AdvReac Intermediate Cough Verified 11/08/23 18:54 pseudoephedrine AdvReac Intermediate TEMP ELEV Verified 11/08/23 18:54 Medications Home Medications Medication Instructions Recorded Confirmed Last Taken albuterol sulfate 90 mcg/actuation 2 puff inhalation QID PRN 06/07/18 11/08/23 03/26/20 08:00 aerosol inhaler (Proventil HFA) Shortness Of Breath digoxin 125 mcg (0.125 mg) tablet 125 mcg PO 3XWK 06/07/18 11/08/23 11/08/23 magnesium oxide 400 mg (241.3 mg 400 mg PO PM 06/07/18 11/08/23 11/07/23 magnesium) tablet potassium chloride 20 mEq 20 meq PO QAM 06/07/18 11/08/23 11/08/23 tablet,extended release(part/cryst) (Klor-Con M) furosemide 40 mg tablet (Lasix) 40 mg PO QAM 04/25/19 11/08/23 11/08/23 latanoprost 0.005 % eye drops 1 drp OPB QAM 03/24/20 11/08/23 11/08/23 pantoprazole 40 mg tablet,delayed 40 mg PO QAM 10/22/21 11/08/23 11/08/23 release losartan 50 mg tablet 50 mg PO QAM 08/28/22 11/08/23 11/08/23 metoprolol succinate 50 mg 50 mg PO QAM 1111/08/23 11/08/23 tablet,extended release 24 hr multivitamin 1 tab PO DAILY 08/28/22 11/08/23 11/08/23 methenamine hippurate 1 gram tablet 1 g PO BID 30 days #60 tabs 11/25/22 11/08/23 11/08/23 08:00 glipizide 5 mg tablet, extended 5 mg PO DAILYBB 04/20/23 11/08/23 11/08/23 release 24 hr dutasteride 0.5 mg capsule 0.5 mg PO QAM 08/22/23 11/08/23 11/08/23 ondansetron HCl 4 mg tablet 4 mg PO Q6H PRN Nausea And Vomiting 08/22/23 11/08/23 Unknown fluticasone 250 mcg-salmeterol 50 1 inh inhalation BID 10/14/23 11/08/23 11/08/23 08:00 mcg/dose blistr powdr for inhalation sodium chloride 0.65 % nasal spray 0 spray NA Q1H PRN dry nasal 10/14/23 11/08/23 Unknown aerosol (Saline Mist) passages acetaminophen 500 mg tablet 1,000 mg PO BIDM 11/08/23 11/08/23 11/08/23 08:00 (Tylenol Extra Strength) ferrous sulfate 325 mg (65 mg 325 mg PO Q OTHER DAY 11/08/23 11/08/23 11/07/23 iron) tablet iron sucrose 100 mg iron/5 mL 300 mg IV ONCE 11/08/23 11/08/23 11/08/23 intravenous solution (Venofer) Active Medications Generic Name Dose Route Start Last Admin Trade Name Freq PRN Reason Stop Dose Admin Acetaminophen 1,000 mg 11/09/23 08:00 11/09/23 07:08 Acetaminophen 500 Mg Tab PO 12/09/23 07:59 1,000 mg BIDM ALIN Administration Finasteride 5 mg 11/09/23 09:00 11/09/23 07:08 Finasteride 5 Mg Tab PO 12/09/23 08:59 5 mg QAM ALIN Administration Fluticasone/Vilanterol 1 puffs 11/09/23 09:00 11/09/23 07:08 Fluticasone/Vilanterol 100/25mcg 14 Puffs/Inhaler INH 12/09/23 08:59 1 puffs DAILY ALIN Administration Furosemide 40 mg 11/09/23 09:00 11/09/23 07:09 Furosemide 40 Mg Tab PO 12/09/23 08:59 40 mg QAM ALIN Administration Pantoprazole Sodium 40 mg/ 100 mls @ 20 mls/hr 11/08/23 19:00 11/09/23 06:15 Dextrose IV 12/08/23 18:59 8 mg/hr Q5H ALIN 20 mls/hr Administration 8 MG/HR Insulin Aspart 0 units 11/08/23 22:15 11/09/23 06:23 Insulin Aspart Per Unit Charge SC 12/08/23 22:14 Not Given Q6 ALIN Latanoprost 1 drops 11/09/23 09:00 11/09/23 07:08 Latanoprost 0.005% Op Soln 2.5 Ml Btl OPB 12/09/23 08:59 1 drops QAM ALIN Administration Methenamine Hippurate 1 gm 11/08/23 21:52 11/09/23 07:09 Methenamine Hippurate 1 Gm Tab PO 12/08/23 21:51 1 gm BID ALIN Administration Metoprolol Succinate 50 mg 11/09/23 09:00 11/09/23 07:09 Metoprolol Succ 50mg Ext Rel Tab PO 12/09/23 08:59 50 mg QAM ALIN Administration Multivitamins 1 tab 11/09/23 09:00 11/09/23 07:09 Multivitamin Tab PO 12/09/23 08:59 1 tab DAILY ALIN Administration NPO Date Last Intake of Fluids: 11/08/23 Date Last Intake of Solids: 11/08/23 Past Medical History Medical History Epistaxis CKD stage 3 due to type 2 diabetes mellitus no specialist Type II diabetes mellitus NIDDM Peptic ulcer disease GI bleed Elevated prostate specific antigen (PSA) Multiple myeloma History of pacemaker Shingles Encounter for pre-operative examination Severe sepsis Dementia GI bleed per pt's > had 3 units PRBC's [facility] during admission in Jul 2021 Dementia mild at present Presence of combination internal cardiac defibrillator (ICD) and pacemaker follows w/ Dr. Sanford > Medtronic > gets checked electronically > PMH provided by , ure when last checked in office. Chronic back pain Osteoarthritis Anemia History of colon polyps GERD (gastroesophageal reflux disease) Hearing deficit [place] Glaucoma Aortic aneurysm unsure of last ultrasound/scan -- no surgical intervention. Moderate aortic root dilatation noted on 2018 echo. No AAA noted on [address] COPD (chronic obstructive pulmonary disease) well controlled rare res inh use On home oxygen therapy 2 LPM QHS BPH (benign prostatic hyperplasia) Aortic valve insufficiency Moderate-severe per 11/2018 echo Ischemic cardiomyopathy EF normalized, most recently 55-60% on 11/2018 echo Dyslipidemia Persistent atrial fibrillation Anticoagulation contraindicated per cardiology > ICD Tachy-lorna syndrome S/p dual chamber pacer with upgrade to pacer/ICD 2014 HTN (hypertension) CAD (coronary artery disease) (08/21/14) S/p CABG July 2000 receiving KAUR graft to LAD, saphenous vein graft sequentially from the obtuse marginal to diagonal. S/p stenting of prox Cx 2013 Exercise / Class Metabolic Activity III < 4 Walking/Shop/Light housework Past Family History Family History Grandmother Diabetes Mother Colon cancer Other Melanoma No family history of adverse response to anesthesia Past Surgical History Surgical History History of implantable cardioverter-defibrillator (ICD) placement History of tooth extraction History of esophagogastroduodenoscopy (EGD) History of tonsillectomy History of cataract surgery bilat History of prostate surgery non cancerous History of colonoscopy History of cardiac cath 1999 --> CABG 2014 - 1 stent - [facility] S/P CABG x 3 1999 S/P coronary artery stent placement July 2014 with stenting of the proximal circumflex Past Anesthesia History No Hx of Anesthesia Complications and No Family Hx of Anesthesia Complications History of PONV No Hx of PONV and No Hx of Motion Sickness Social History Smoking Status: Current every day smoker tobacco type: cigarettes Do You Dip or Chew Tobacco: No Hx Alcohol Use: No Alcohol type: beer alcohol intake frequency: holidays/special occasions only Hx Substance Use: No substance use type: does not use Physical Exam Vital Signs Last Vital Signs Temp 36.9 C 11/09/23 01:30 Pulse 64 11/09/23 08:00 Resp 20 11/09/23 08:00 BP 146/80 H 11/09/23 08:00 Pulse Ox 97 11/09/23 08:00 O2 Del Method Room Air 11/09/23 08:00 ENMT Mouth: no TMJ abnormality Thyromental Distance: > or= 3.5 Finger Breadths Mallampati Class: II Neck normal visual inspection and trachea midline; neck extension not limited Respiratory normal respiratory effort Auscultation: lungs clear to auscultation bilaterally Cardiovascular Rate/Rhythm: regular rate and regular rhythm Heart Sounds: no murmur Musculoskeletal Spine: normal cervical ROM Extremities: full ROM of extremities Neurologic moves all extremities Psychiatric Orientation: alert and oriented x 3 Testing Laboratory Results 11/09/23 06:06 11/09/23 06:06 PT 12.1 Seconds (9.0-12.0) H 11/08/23 17:30 INR 1.1 (0.9-1.1) 11/08/23 17:30 APTT 31 Seconds (21-31) 11/08/23 17:30 Hemoglobin A1c 5.7 % (4.5-5.6) H 11/08/23 17:30 Blood Type A Positive 11/08/23 17:30 Antibody Screen NEGATIVE 11/08/23 17:30 11/09/23 11/08/23 11/08/23 06:17 22:47 22:41 POC Glucose 97 103 H 104 H Electrocardiogram Date: 11/08/23 Ventricular-paced rhythm Abnormal ECG When compared with ECG of 14-OCT-2023 09:06, Vent. rate has increased BY 8 BPM Confirmed by Joe Menard ([id number]) on 11/09/2023 8:00:53 AM Echocardiogram Date: 07/20/23 EF: 60-65 Valvular Disease: + (mild)
--- NOTE | 2023-11-09 10:30 | Communication Note ---
Date of Service: November 09, 2023 Patient underwent upper endoscopy today. The patient's esophagus and stomach had no abnormalities without evidence of bleeding. 1 arteriovenous malformation was seen and the 3rd-4th portion of the duodenum. This was treated with argon plasma coagulation. Reccomenations: Carafate 1 g QID x 10 days Observe clinical course Avoid nonsteroidals with possible If rebleeding occurs we could consider further evaluation with wireless capsule endoscopy.
--- NOTE | 2023-11-09 10:35 | GI REPORT ---
Patient Name: Marshall Booth Procedure Date: 11/09/2023 10:01 AM Date of : 1935 Admit Type: Inpatient Age: 88 Gender: Male Attending MD: Griffin Stokes DO, Procedure: Upper GI endoscopy Providers: Griffin Stokes DO Referring MD: Pietro Sykes, Gavin Plasencia Md Indications: Melena Medicines: Propofol per Anesthesia Complications: No immediate complications. Estimated blood loss: Minimal. Estimated Blood Loss: Estimated blood loss was minimal. Procedure: Pre-Anesthesia Assessment: - Prior to the procedure, a History and Physical was performed, and patient medications, allergies and sensitivities were reviewed. The patient's tolerance of previous anesthesia was reviewed. - The patient is unable to give consent secondary to the patient's altered mental status. The alternatives, risks and benefits of the procedure were discussed at length with the patient's spouse. The patient's proxy verbalized understanding of the risks as well as the alternatives and wished to proceed with the procedure. - Patient identification and proposed procedure were verified prior to the procedure by the physician, the nurse and the retail agent. The procedure was verified in the procedure room. - Pre-procedure physical examination revealed no contraindications to sedation. - ASA Grade Assessment: IV - A patient with severe systemic disease that is a constant threat to life. - After reviewing the risks and benefits, the patient was deemed in satisfactory condition to undergo the procedure. - The anesthesia plan was to use monitored anesthesia care (MAC). - Immediately prior to administration of medications, the patient was re-assessed for adequacy to receive sedatives. - The heart rate, respiratory rate, oxygen saturations, blood pressure, adequacy of pulmonary ventilation, and response to care were monitored throughout the procedure. - The physical status of the patient was re-assessed after the procedure. After obtaining informed consent, the endoscope was passed under direct vision. Throughout the procedure, the patient's blood pressure, pulse, and oxygen saturations were monitored continuously. The Endoscope was introduced through the mouth, and advanced to the fourth part of duodenum. The upper GI endoscopy was accomplished without difficulty. The patient tolerated the procedure well. Findings: The examined esophagus was normal. The Z-line was regular and was found 42 cm from the incisors. The entire examined stomach was normal. A single 4 mm angiodysplastic lesion with bleeding on contact was found in the third portion of the duodenum. Coagulation for hemostasis using argon plasma at 0.8 liters/minute and 15 kahn was successful. Estimated blood loss was minimal. Impression: - Normal esophagus. - Z-line regular, 42 cm from the incisors. - Normal stomach. - A single angiodysplastic lesion in the duodenum. Treated with argon plasma coagulation (APC). - No specimens collected. Recommendation: - Advance diet as tolerated today. - No aspirin, ibuprofen, naproxen, or other non-steroidal anti-inflammatory drugs. - Use sucralfate tablets 1 gram PO QID for 10 days. - Observe patient's clinical course. If recurrent symptoms occur In the future further, then evaluation with a Wireless capsule endoscopy could be considered. Griffin Stokes D.O. Griffin Stokes, 11/09/2023 10:34:44 AM This report has been signed electronically. Note Initiated On: 11/09/2023 10:01 AM Number of Addenda: 0 I attest to the content of the Intraoperative Record and orders documented therein, exceptions below {[id number]}
--- NOTE | 2023-11-09 11:05 | Anesthesiology Progress Note ---
Date of Service November 09, 2023 Anesthesia Post Procedure Vital Signs Vital Signs: Temp Pulse Pulse Resp BP BP Pulse Ox 11/09/23 10:49 70 18 120/47 L 96 11/09/23 10:34 75 16 100/53 L 100 11/09/23 10:04 36.9 C 70 20 157/72 H 97 11/09/23 08:00 64 20 146/80 H 97 11/09/23 07:08 82 11/09/23 06:00 70 17 97 11/09/23 04:00 70 22 129/55 L 94 11/09/23 03:42 11/09/23 02:00 85 21 147/81 H 97 11/09/23 01:30 36.9 C 70 16 153/74 H 96 11/09/23 00:30 36.8 C 71 16 155/72 H 98 11/09/23 00:00 36.9 C 70 22 145/69 H 97 11/08/23 23:45 36.8 C 72 50 H 146/67 H 98 11/08/23 23:30 36.9 C 70 24 149/111 H 11/08/23 23:24 71 11/08/23 22:22 78 11/08/23 22:22 36.5 C 78 24 148/71 H 96 11/08/23 20:58 36.9 C 70 22 153/76 H 96 11/08/23 20:28 36.8 C 72 22 149/90 H 95 11/08/23 20:13 36.9 C 70 20 155/72 H 96 11/08/23 19:49 37.0 C 72 22 154/80 H 97 11/08/23 18:27 82 11/08/23 18:20 78 20 149/69 H 98 11/08/23 17:06 36.8 C 76 20 132/67 96 O2 Del Method 11/09/23 10:49 Room Air 11/09/23 10:34 Room Air 11/09/23 10:04 Room Air 11/09/23 08:00 Room Air 11/09/23 07:08 11/09/23 06:00 Room Air 11/09/23 04:00 Room Air 11/09/23 03:42 Room Air 11/09/23 02:00 Room Air 11/09/23 01:30 11/09/23 00:30 11/09/23 00:00 11/08/23 23:45 11/08/23 23:30 11/08/23 23:24 11/08/23 22:22 11/08/23 22:22 Room Air 11/08/23 20:58 11/08/23 20:28 11/08/23 20:13 11/08/23 19:49 11/08/23 18:27 11/08/23 18:20 Room Air 11/08/23 17:06 Room Air Transfer of Care Handoff Completed per policy Notes Mental Status: alert / awake / arousable Patient Amnestic to Procedure: Yes Nausea / Vomiting: adequately controlled Pain: adequately controlled Airway Patency, RR, SpO2: stable & adequate BP & HR: stable & adequate Hydration State: stable & adequate Anesthetic Complications: no major complications apparent and Pt Satisfied with anesthetic care
[2023-11-09] MEDS: SUCRALFATE 1 GM/10 ML UDC PO SCH (13:07)
[2023-11-09 14:14] LABS: Hematocrit (blood only) 25.7 % (42.0-52.0)
--- NOTE | 2023-11-09 14:32 | Hospitalist Progress Note ---
Date of Service November 09, 2023 Assessment & Plan (1) UGIB (upper gastrointestinal bleed): Plan: 88-year-old male with PMH of T2DM, CKD stage III, moderate persistent asthma, CAD, ischemic cardiomyopathy, HTN, persistent A-fib, infrarenal AAA, chronic diastolic CHF [2022 TTE w/ EF 60-65%], GERD, BPH, multiple myeloma, Alzheimer's dementia, transfusion dependent anemia presented to the ED for blood transfusion for OP Hb of 6.4 but noted to have melanotic stool at ED and hence admitted. He is being managed for the following: Likely UGI bleed: Positive melanotic stool in the ED Acute on chronic anemia Transfusion dependent anemia History of multiple myeloma Patient presented to the ED for blood transfusion, heme positive melanotic stool documented at the ER. Patient has history of transfusion dependent anemia and multiple myeloma. Follows Dr. Pietro Sykes, due to patient's advanced age patient and family have elected for nonaggressive treatment of multiple myeloma. Hemoglobin dropped from his baseline secondary to likely UGI bleed and ongoing transfusion dependent anemia. Status post EGD 11/09/2023single angiodysplastic lesion in the duodenum was noted which was treated with argon plasma coagulation. GI evaluated, sucralfate for 10 days, avoid NSAIDs. Clear liquid diet, advance as tolerated. Continue with PPI. Monitor H&H every 12 hours or as needed. Transfuse blood to maintain hemoglobin of 8 or for symptomatic anemia. Continue Lasix with this transfusion. Other chronic medical conditions: Continue with/resume home meds as and when able. Ischemic cardiomyopathy/tachybradycardia syndrome/CAD/status post implantation of AICD: July 2023 echo with EF of 60 to 65%. Continue beta- mike and ARB. Plavix recently discontinued due to epistaxis. T2DM: July 2023 A1c of 5.5. Sliding scale insulin while in the hospital. CKD stage III: Baseline creatinine high ones. Creatinine close to his baseline. Monitor. Moderate persistent asthma: Chronic, stable. Continue home inhalers. BPH: Chronic, stable. Continue home meds. Recurrent UTIs on chronic methenamine suppression Rx dementia as per records, at baseline DVT prophylaxis: SCDs DNR/DNI Patient family Ms. Remedios Booth (), contact #[phone]. Ms. Reji Trejo (daughter), contact #[phone]. Text document was generated using [employer] voice recognition software. It may contain grammatical or spelling errors. Kindly contact undersigned for clarification of any documentation item in question. Admission and Anticipated Discharge Date Admission Date: November 08, 2023 Subjective Patient was seen and examined at bedside. Patient was lying in bed, on room air, resting comfortably, not in any acute distress. Patient is a status post EGD scope today. Denies any pain, denies any shortness of breath or cough or chest pain. Patient is very hard of hearing/has dementia, detailed ROS is not able. Physical Exam Physical Exam: GENERAL: Awake alert, demented, [place]. NAD, on RA. appears ill/weak/frail. HEENT: no pallor, no icterus. Pupils equal, round and reactive to light. Oral mucosa moist. NECK: No JVD, no neck masses. HEART: S1 and S2 heard. Regular rate and rhythm. No murmur, no gallop. RESPIRATORY SYSTEM: Normal AP diameter. No accessory muscle use. No wheezing, no crackles. ABDOMEN: Soft, bowel sounds present, nontender, no distention. CENTRAL NERVOUS SYSTEM: No facial droop. Speech is clear. Obeys simple commands. Moves extremities. EXTREMITIES: No edema, no erythema seen. Results & Data Results & Data Vital Signs (Past 12 Hours) Vital Signs Temp Pulse Pulse Resp BP BP Pulse Ox 11/09/23 11:42 71 24 139/71 97 11/09/23 11:04 70 18 113/45 L 96 11/09/23 10:49 70 18 120/47 L 96 11/09/23 10:34 75 16 100/53 L 100 11/09/23 10:04 36.9 C 70 20 157/72 H 97 11/09/23 08:00 64 20 146/80 H 97 11/09/23 07:08 82 11/09/23 06:00 70 17 97 11/09/23 04:00 70 22 129/55 L 94 11/09/23 03:42 O2 Del Method 11/09/23 11:42 Room Air 11/09/23 11:04 Room Air 11/09/23 10:49 Room Air 11/09/23 10:34 Room Air 11/09/23 10:04 Room Air 11/09/23 08:00 Room Air 11/09/23 07:08 11/09/23 06:00 Room Air 11/09/23 04:00 Room Air 11/09/23 03:42 Room Air
[2023-11-09] MEDS: PANTOprazole 40 MG TAB PO SCH (20:48)
[2023-11-09] MEDS ORDERED: Nursing to Pharmacy Communication SCH (21:15)
[2023-11-09] MEDS: INSULIN ASPART PER UNIT CHARGE SC SCH (22:09)
[2023-11-10 06:34] LABS: Hematocrit (blood only) 25.6 % (42.0-52.0); Mean Corpuscular Hemoglobin 30.7 pg (25.0-34.0); Mean Corpuscular Hgb Conc 31.3 g/dL (32.0-36.0); Mean Corpuscular Volume 98.1 fL (80.0-100.0); Mean Platelet Volume 9.4 fL (9.4-12.4); Platelet Count 158 K/uL (130-400); RDW Coefficient of Variation 20.6 % (11.5-14.5); Red Blood Count 2.61 M/uL (4.70-6.10); White Blood Count 3.87 K/ul (4.8-10.8)
[2023-11-10 06:52] LABS: BUN Creatinine Ratio 17.7 (10-20); Calcium 8.8 mg/dl (8.6-10.3); Creatinine Clr Calc Pharmacy 31.8 ml/min; Est GFR (African American) 42.3 ml/min; Est GFR (Non-African American) 36.5 ml/min; Phosphorus 4.5 mg/dl (2.5-4.9); Potassium 3.7 mmol/L (3.5-5.1)
--- NOTE | 2023-11-10 15:35 | Hospitalist Progress Note ---
Date of Service November 10, 2023 Assessment & Plan (1) UGIB (upper gastrointestinal bleed): Plan: 88-year-old male with PMH of T2DM, CKD stage III, moderate persistent asthma, CAD, ischemic cardiomyopathy, HTN, persistent A-fib, infrarenal AAA, chronic diastolic CHF [2022 TTE w/ EF 60-65%], GERD, BPH, multiple myeloma, Alzheimer's dementia, transfusion dependent anemia presented to the ED for blood transfusion for OP Hb of 6.4 but noted to have melanotic stool at ED and hence admitted. He is being managed for the following: Likely UGI bleed: Positive melanotic stool in the ED Acute on chronic anemia Transfusion dependent anemia History of multiple myeloma Patient presented to the ED for blood transfusion, heme positive melanotic stool documented at the ER. Patient has history of transfusion dependent anemia and multiple myeloma. Follows Dr. Pietro Sykes, due to patient's advanced age patient and family have elected for nonaggressive treatment of multiple myeloma. Hemoglobin dropped from his baseline secondary to likely UGI bleed and ongoing transfusion dependent anemia. Status post EGD 11/09/2023single angiodysplastic lesion in the duodenum was noted which was treated with argon plasma coagulation. GI evaluated, sucralfate for 10 days, avoid NSAIDs. Advance diet to soft diet. Continue with PPI. Monitor H&H. Transfuse blood to maintain hemoglobin of 8 or for symptomatic anemia. Continue Lasix with this transfusion. Monitor stool for color. Other chronic medical conditions: Continue with/resume home meds as and when able. Ischemic cardiomyopathy/tachybradycardia syndrome/CAD/status post implantation of AICD: July 2023 echo with EF of 60 to 65%. Continue beta- mike and ARB. Plavix recently discontinued due to epistaxis. T2DM: July 2023 A1c of 5.5. Sliding scale insulin while in the hospital. CKD stage III: Baseline creatinine high ones. Creatinine close to his baseline. Monitor. Moderate persistent asthma: Chronic, stable. Continue home inhalers. BPH: Chronic, stable. Continue home meds. Recurrent UTIs on chronic methenamine suppression Rx dementia as per records, at baseline DVT prophylaxis: SCDs DNR/DNI Patient family Ms. Remedios Booth (), contact #[phone]. Ms. Reji Trejo (daughter), contact #[phone]. Text document was generated using [employer] voice recognition software. It may contain grammatical or spelling errors. Kindly contact krissyigned for clarification of any documentation item in question. Admission and Anticipated Discharge Date Admission Date: November 08, 2023 Subjective Patient was seen and examined at bedside. Patient was lying in bed, on room air, resting comfortably, not in any acute distress. Denies any pain, denies any shortness of breath or cough or chest pain. Patient is very hard of hearing/has dementia, detailed ROS is not able. Per RN has not had a bowel movement. Will repeat H&H in the afternoon. Physical Exam Physical Exam: GENERAL: Awake alert, demented, [place]. NAD, on RA. appears ill/weak/frail. HEENT: no pallor, no icterus. Pupils equal, round and reactive to light. Oral mucosa moist. NECK: No JVD, no neck masses. HEART: S1 and S2 heard. Regular rate and rhythm. No murmur, no gallop. RESPIRATORY SYSTEM: Normal AP diameter. No accessory muscle use. No wheezing, no crackles. ABDOMEN: Soft, bowel sounds present, nontender, no distention. CENTRAL NERVOUS SYSTEM: No facial droop. Speech is clear. Obeys simple commands. Moves extremities. EXTREMITIES: No edema, no erythema seen. Results & Data Results & Data Vital Signs (Past 12 Hours) Vital Signs Temp Pulse Pulse Resp BP Pulse Ox O2 Del Method 11/10/23 15:04 36.5 C 78 20 128/66 91 Room Air 11/10/23 15:00 84 11/10/23 11:27 36.7 C 71 20 147/73 H 95 Room Air 11/10/23 07:46 36.8 C 64 20 154/72 H 94 Room Air 11/10/23 07:26 83
[2023-11-10 16:05] LABS: Hematocrit (blood only) 23.9 % (42.0-52.0); Hemoglobin 7.7 g/dl (14.0-18.0)
[2023-11-10] MEDS: DIGOXIN 0.125 MG TAB PO SCH (17:07)
[2023-11-11 05:51] LABS: Hematocrit (blood only) 23.7 % (42.0-52.0); Hemoglobin 7.6 g/dl (14.0-18.0); Mean Corpuscular Hemoglobin 30.9 pg (25.0-34.0); Mean Corpuscular Hgb Conc 32.1 g/dL (32.0-36.0); Mean Corpuscular Volume 96.3 fL (80.0-100.0); Mean Platelet Volume 9.4 fL (9.4-12.4); Platelet Count 149 K/uL (130-400); RDW Coefficient of Variation 19.9 % (11.5-14.5); RDW Standard Deviation 67.3 fL (36.4-46.3); Red Blood Count 2.46 M/uL (4.70-6.10); White Blood Count 3.71 K/ul (4.8-10.8)
[2023-11-11] MEDS ORDERED: SODIUM CHLORIDE 0.9% 250 ML IV PRN (08:31)
--- NOTE | 2023-11-11 12:36 | Discharge Summary ---
Date of Service November 11, 2023 Admission HPI Per Admitting Provider History obtained from patient, family, and records. Limited history from patient secondary to marked hearing impairment/dementia. Medical history significant for chronic diastolic heart failure EF 60 to 65%, TTE 2022), CAD status post CABG/stent, PVD, SSS status post PPM not on anticoagulation secondary to bleeding risk, valvular heart disease (mild /TR, moderate MR), hypertension, COPD, DISH, BPH, DM2 on oral medications, GERD, dementia as per records, recurrent UTIs on chronic methenamine suppression Rx, multiple myeloma, CRI (baseline creatinine 1.6-1.8 ), chronic anemia (baseline hemoglobin of 8), past tobacco abuse. Four admissions since July 2023. Recent confinement last month for metabolic encephalopathy secondary to E. coli UTI. Patient seen at [facility] office 5 days ago. Outpatient hemoglobin noted to be 6.8. 1 unit packed RBC transfused and Venofer administered outpatient. Outpatient hemoglobin today noted to be 6.4. Patient denies headache, chest pain, SOB, abdominal pain, black/bloody stools, hematuria. Has been off Plavix since admission 2 months ago for epistaxis. Denies OTC NSAID intake. Heme positive melanotic stool documented at the ER. IV PPI infusion initiated at the ER. 1 unit PRBC transfused. 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 Admission Exam Per Admitting Provider GENERAL: Comfortable, pleasant, hard of hearing, no respiratory distress SKIN: Pallor, warm HEENT: Pale palpebral conjunctivae, no ptosis, dry buccal mucosa NECK : Supple, no tenderness CHEST : CTA, no tenderness HEART : RRR, systolic murmur ABDOMEN: Some distention, nontender EXTREMITIES : Minimal LE swelling, no LE tenderness, no other conspicuous deformities noted NEUROLOGIC : Coherent, hard of hearing, no facial asymmetry, gait and stance not assessed Principal Diagnosis Likely upper GI bleed Acute on chronic anemia Transfusion dependent anemia History of multiple myeloma Discharge Exam GENERAL: Awake alert, demented, [place]. NAD, on RA. appears ill/weak/frail. HEENT: no pallor, no icterus. Pupils equal, round and reactive to light. Oral mucosa moist. NECK: No JVD, no neck masses. HEART: S1 and S2 heard. Regular rate and rhythm. No murmur, no gallop. RESPIRATORY SYSTEM: Normal AP diameter. No accessory muscle use. No wheezing, no crackles. ABDOMEN: Soft, bowel sounds present, nontender, no distention. CENTRAL NERVOUS SYSTEM: No facial droop. Speech is clear. Obeys simple commands. Moves extremities. EXTREMITIES: No edema, no erythema seen. Discharge Data Allergies Allergy/AdvReac Type Severity Reaction Status Date / Time Sulfa (Sulfonamide Allergy Severe DYSUREA Verified 11/08/23 18:54 Antibiotics) PER [facility] prednisone Allergy Intermediate BLISTERS Verified 11/08/23 18:54 IN THROAT hydrocodone AdvReac Severe ALTERED Verified 11/08/23 18:54 MENTAL STATUS FELECIA Inhibitors AdvReac Intermediate Cough Verified 11/08/23 18:54 pseudoephedrine AdvReac Intermediate TEMP ELEV Verified 11/08/23 18:54 Consultations 11/08/23 18:44 ED Decision to Admit Stat 11/08/23 21:52 Consult Gastroenterology Routine Procedures Performed Operation Date: 11/09/23 16:45 Actual Procedures p EGD Hemostasis - Griffin Stokes DO Hospital Course (1) UGIB (upper gastrointestinal bleed): 88-year-old male with PMH of T2DM, CKD stage III, moderate persistent asthma, CAD, ischemic cardiomyopathy, HTN, persistent A-fib, infrarenal AAA, chronic diastolic CHF [2022 TTE w/ EF 60-65%], GERD, BPH, multiple myeloma, Alzheimer's dementia, transfusion dependent anemia presented to the ED for blood transfusion for OP Hb of 6.4 but noted to have melanotic stool at ED and hence admitted. He was managed for the following: Likely UGI bleed: Positive melanotic stool in the ED Acute on chronic anemia Transfusion dependent anemia History of multiple myeloma Patient presented to the ED for blood transfusion, heme positive melanotic stool documented at the ER. Patient has history of transfusion dependent anemia and multiple myeloma. Follows Dr. Pietro Sykes, due to patient's advanced age patient and family have elected for nonaggressive treatment of multiple myeloma. Hemoglobin dropped from his baseline secondary to likely UGI bleed and ongoing transfusion dependent anemia. Status post EGD 11/09/2023single angiodysplastic lesion in the duodenum was noted which was treated with argon plasma coagulation. GI evaluated, sucralfate for 10 days, avoid NSAIDs. Tolerating advancement of diet well, no further GI bleed. Continue with PPI. Monitor H&H --follow-up with PCP within a week time.. Continue blood transfusion for chronic condition as prior. Will get 1 unit PRBC prior to discharge today. Monitor stool for color. Family has been communicated regarding monitoring stool collar on 11/10. Other chronic medical conditions: Continue with/resume home meds as and when able. Ischemic cardiomyopathy/tachybradycardia syndrome/CAD/status post implantation of AICD: July 2023 echo with EF of 60 to 65%. Continue beta- mike and ARB. Plavix recently discontinued due to epistaxis. T2DM: July 2023 A1c of 5.5. Sliding scale insulin while in the hospital. CKD stage III: Baseline creatinine high ones. Creatinine close to his baseline. Monitor. Moderate persistent asthma: Chronic, stable. Continue home inhalers. BPH: Chronic, stable. Continue home meds. Recurrent UTIs on chronic methenamine suppression Rx dementia as per records, at baseline DVT prophylaxis: SCDs DNR/DNI Patient family Ms. Remedios Booth (), contact #[phone]. Ms. Reji Trejo (daughter), contact #[phone]. Patient is being discharged to home with family support and home health with following instruction at the point of discharge: Follow-up with your primary care physician within a week time and likely you will need labs CBC/CMP/magnesium/phosphorus. Continue to follow-up as prior for your blood transfusion date. Because of your upper GI bleed, you will be discharged on sucralfate. Avoid NSAIDs like Motrin/Aleve. Take your pantoprazole twice a day for a month. And then you can take once a day. Take your medications as prescribed. Please make sure that you are able to get your medications today by calling your pharmacy before you leave the hospital so that your treatment continuity is not broken. Text document was generated using [employer] voice recognition software. It may contain grammatical or spelling errors. Kindly contact undersigned for clarification of any documentation item in question. Home Health Attestation I certify that this patient is under my care and that I, or a physicians home care assistant working with me, had a face to-face encounter that meets the home health [id number] encounter requirements with this patient. The encounter with the patient was in whole, or in part, for the following medical condition, which is the primary reason for home health care (list medical condition): resumption of care at discharge; dc date uncertain at this time I certify that, based on my findings, the following services are medically necessary home health services: My clinical findings support the need for the above services because: Further, I certify that my clinical findings support that this patient is homebound (i.e. absences from home require considerable and taxing effort and are for medical reasons or [facility] or infrequently or of short duration when for other reasons) because: Transportation Assistance/Unable to Leave Home Unassisted Certification for Home Health Services: Based on the above findings, I certify that this patient is confined to the home and needs intermittent fci care, physical therapy and/or speech therapy or continues to need occupational therapy. The patient is under my care, and I have initiated the establishment of the plan of care. This patient will be followed by a physician who will periodically review the plan of care. Total Time Total Time Spent Total Time Spent (In Minutes): 45 Discharge Plan Discharge Items Patient Disposition: Home - Home Health Services Reason For Visit: ANEMIA; GI BLEED Discharge Diagnosis: Likely upper GI bleed Acute on chronic anemia Transfusion dependent anemia History of multiple myeloma Activity: Resume your previous activity Non-emergency contact: Primary Care Provider Call non-emergency contact if: you have any medication questions and your temperature is above 101.5 Follow-up/Referrals: Zenobia Lyon MD [Primary Care Provider] - (Date & Time 11/17/2023 11:00 AM Provider Emely Chester PA-C Department Family Medicine [facility] ) Diet: Carb Consistent or DM2 and Heart Healthy Addtl Attending Provider Instructions: Follow-up with your primary care physician within a week time and likely you will need labs CBC/CMP/magnesium/phosphorus. Continue to follow-up as prior for your blood transfusion date. Because of your upper GI bleed, you will be discharged on sucralfate. Avoid NSAIDs like Motrin/Aleve. Take your pantoprazole twice a day for a month. And then you can take once a day. Take your medications as prescribed. Please make sure that you are able to get your medications today by calling your pharmacy before you leave the hospital so that your treatment continuity is not broken. Pending Studies at Discharge: No Stand-Alone Forms: [facility], Smoking Cessation Medications and DC Order Prescriptions: New sucralfate 100 mg/mL Suspension 1 g PO QID 8 Days Qty: 400 0RF Continued methenamine hippurate 1 gram tablet 1 g PO BID 30 Days Qty: 60 5RF furosemide [Lasix] 40 mg Tablet 40 mg PO QAM potassium chloride [Klor-Con M20] 20 mEq Tablet,Er Particles/Crystals 20 meq PO QAM magnesium oxide 400 mg (241.3 mg magnesium) Tablet 400 mg PO PM digoxin 125 mcg Tablet 125 mcg PO 3XWK Rx Instructions: take 1 tablet mon,wed,fri albuterol sulfate [Proventil HFA] 90 mcg/actuation Hfa Aerosol Inhaler 2 puff INHALATION QID PRN (Reason: Shortness Of Breath) latanoprost 0.005 % Drops 1 drp OPB QAM metoprolol succinate 50 mg tablet extended release 24 hr 50 mg PO QAM losartan 50 mg tablet 50 mg PO QAM multivitamin Tablet 1 tab PO DAILY glipizide 5 mg Tablet Extended Release 24hr 5 mg PO DAILYBB ondansetron HCl 4 mg tablet 4 mg PO Q6H PRN (Reason: Nausea And Vomiting) dutasteride 0.5 mg capsule 0.5 mg PO QAM Saline Mist 0.65 % aerosol,spray 0 spray NA Q1H PRN (Reason: dry nasal passages) Rx Instructions: unable to verify OTC with patient or caregiver at this time and date. Original Directions: 2 spray into the nostrils every hours as needed for dry nasal passages. fluticasone propion-salmeterol 250-50 mcg/dose blister with device 1 inh INHALATION BID acetaminophen [Tylenol Extra Strength] 500 mg Tablet 1,000 mg PO BIDM ferrous sulfate 325 mg (65 mg iron) Tablet 325 mg PO Q OTHER DAY Venofer 100 mg iron/5 mL Solution 300 mg IV ONCE Rx Instructions: administer over 30 mins Changed pantoprazole 40 mg tablet,delayed release (DR/EC) 40 mg PO BID Qty: 60 0RF Discharge Orders: Discharge Order (Routine); Ordered 11/11/23 Ordered By: Gavin Plasencia Admission Data Admit Date/Time: 11/08/23 20:13 Attending Provider: Gavin Plasencia Admit Provider: Fareed Gauthier Primary Care Provider: Zenobia Lyon Other Providers: Fareed Gauthier; Elise Estrada; Terry Vuong; Ann Sanon; Ynes Weaver; Tiny Rocha; Soledad Jarquin; Lowell Pritchard; Pola Stanley; Griffin Stokes; Jose G Katz; Freddy Dalton; Umm Belle; Emi Kennedy; Paulette Stewart; Desiree Siegel; Fredo Encinas; Speedy Alves; Rahul Brody; Patria Breewr; Tyron De Guzman Jr; [facility]
[2023-11-11] MEDS: POLYETHYLENE (MIRALAX) 17 GM PACK PO ONE (12:42)
== END 2023-11-11 17:32 | disposition home health service (06) | DRG 378 ==
LOC: ED 16:57 → EDINP 20:13 → 2N 21:53